=== PATIENT | female | born 1955 | race Caucasian/White ===

== ENCOUNTER → 2016-10-27 | Outpatient (REF) | payer MEDICARE ==
[~2016-10-27] MED LIST: AMLO10TA PO; AMOX500T PO; CITA40TA4 PO; CRES40TA PO; DULO1CAP3 PO; METF1000 PO; METO100T PO; Novolog SQ; PROA1AER IN; TRAZ50TA4 PO; VALS320T3 PO; ZETI10TA2 PO
[2016-10-27 12:21] LABS: CREATININE FOR GFR 1.18 MG/DL (0.55-1.02); GLOMERULAR FILTRATION RATE 49.6 (>45); POTASSIUM SERUM 4.7 MEQ/L (3.5-5.1)
== END ==
LOC: M SFHCPLAZ 08:34
PROVIDERS: ATTEND Nurse Practitioner Family
DX: E11.42 Type 2 diabetes mellitus with diabetic polyneuropathy (principal)

== ENCOUNTER → 2016-12-25 | Day surgery (SDC) | payer MEDICARE ==
[~2016-12-25] VITALS: Ht 152.4 cm; Wt 81.2 kg
[~2016-12-25] MED LIST changes: +ACETAMINOPHEN 325 MG TAB PO PRN; +ARTH650T PO; +AcetaZOLAMIDE 500 MG ER CAP PO ONE; +BSS with VANC/TOB/EPI for EYE CASES IR ONE; +CYCLOPENTOLATE 2% OPHTH SOLN OS ONE; +D5W/0.2% SODIUM CHLORIDE 1,000 ML IV SCH; +GLIP5TAB8 PO; +HEALON DUET (HEALON 10MG/ML 0.55ML & HEALON ENDOCOAT 30MG/ML 0.85ML) As Ordered ONE; +HYDR-4274 PO; +KETOROLAC 0.5% OPHTH SOLN OS ONE; +LIDOCAINE 1% SDV 5 ML VIAL As Ordered ONE; +LIDOCAINE 4% INJ 5 ML AMP OU ONE; +LIDOCAINE W/EPINEPHRINE 1% 20ML VIAL As Ordered ONE; +LYRI75CA PO; +MIDAZOLAM INJ 2 MG/2 ML VIAL (J2250) As Ordered ONE; +MOXIFLOXACIN IN BSS 0.25MG/0.25ML INTRACAMERAL INJ (OR EYE ONLY)(J2280) As Ordered ONE; +OFLOXACIN 0.3 % (OCUFLOX) OPTH SOL 5ML OS ONE; +ONGL10TA3 PO; +PHENYLEPHRINE 2.5% OPHTH SOL 2ML OS ONE; +POVIDONE-IODINE 5% OPHTH PREP SOL 30ML As Ordered ONE; +PROPARACAINE 0.5% OPHTH SOL 15ML OS PRN; +SIMV40TA2 PO; +TRIAMCINOLONE PRES FR 40 MG/ML 1ML(TRIESENCE)(OR EYE ONLY)(J3300 PER 1MG) As Ordered ONE; +TRIMETHOBENZAMIDE 300 MG CAP PO PRN; +TROPICAMIDE 1% OPHTH SOLN 2 ML OS ONE; +fentaNYL 100 MCG/2 ML INJECTION (J3010) As Ordered ONE
[2016-12-25 10:20] VITALS: BP 165/75
== END | disposition home or self-care (01) ==
LOC: M SDC 07:01
PROVIDERS: ATTEND Ophthalmology
DX: H26.9 Unspecified cataract (principal); H21.562 Pupillary abnormality, left eye; E11.9 Type 2 diabetes mellitus without complications; I10 Essential (primary) hypertension; E78.5 Hyperlipidemia, unspecified; Z79.899 Other long term (current) drug therapy; Z88.0 Allergy status to penicillin
CPT/HCPCS: 66982; J2250; J2280; J3010; J3300; V2632

== ENCOUNTER → 2016-12-29 | Outpatient (REF) | payer MEDICARE ==
[~2016-12-29] MED LIST changes: -ACETAMINOPHEN 325 MG TAB PO PRN; -AcetaZOLAMIDE 500 MG ER CAP PO ONE; -BSS with VANC/TOB/EPI for EYE CASES IR ONE; -CYCLOPENTOLATE 2% OPHTH SOLN OS ONE; -D5W/0.2% SODIUM CHLORIDE 1,000 ML IV SCH; -HEALON DUET (HEALON 10MG/ML 0.55ML & HEALON ENDOCOAT 30MG/ML 0.85ML) As Ordered ONE; -KETOROLAC 0.5% OPHTH SOLN OS ONE; -LIDOCAINE 1% SDV 5 ML VIAL As Ordered ONE; -LIDOCAINE 4% INJ 5 ML AMP OU ONE; -LIDOCAINE W/EPINEPHRINE 1% 20ML VIAL As Ordered ONE; -MIDAZOLAM INJ 2 MG/2 ML VIAL (J2250) As Ordered ONE; -MOXIFLOXACIN IN BSS 0.25MG/0.25ML INTRACAMERAL INJ (OR EYE ONLY)(J2280) As Ordered ONE; -OFLOXACIN 0.3 % (OCUFLOX) OPTH SOL 5ML OS ONE; -PHENYLEPHRINE 2.5% OPHTH SOL 2ML OS ONE; -POVIDONE-IODINE 5% OPHTH PREP SOL 30ML As Ordered ONE; -PROPARACAINE 0.5% OPHTH SOL 15ML OS PRN; -TRIAMCINOLONE PRES FR 40 MG/ML 1ML(TRIESENCE)(OR EYE ONLY)(J3300 PER 1MG) As Ordered ONE; -TRIMETHOBENZAMIDE 300 MG CAP PO PRN; -TROPICAMIDE 1% OPHTH SOLN 2 ML OS ONE; -fentaNYL 100 MCG/2 ML INJECTION (J3010) As Ordered ONE
[2016-12-29 19:13] LABS: BASO % 0.7 % (0.0-1.0); EOS # 0.2 K/mm3 (0.0-0.50); EOS % 3.1 % (0.0-3.0); LARGE UNSTAINED CELL # 0.1 K/mm3 (0.0-0.4); LARGE UNSTAINED CELL % 1.1 % (0.0-4.0); LYMPH % 25.3 % (24.0-44.0); MEAN CORPUSCULAR HGB CONC 32.8 g/dl (32.0-36.5); MEAN CORPUSCULAR VOLUME 82.4 fl (80.0-96.0); MONO # 0.4 K/mm3 (0.0-0.8); MONO % 5.4 % (0.0-5.0); NEUTROPHILS # 4.9 K/mm3 (1.8-7.7); NEUTROPHILS % 64.4 % (36.0-66.0); PLATELET COUNT, AUTOMATED 320 k/mm3 (150-450); WHITE BLOOD COUNT 7.6 K/mm3 (4.0-10.0)
[2016-12-29 19:14] LABS: ALBUMIN 3.6 GM/DL (3.2-5.2); PERCENT SATURATION 19.3 % (13.2-37.4)
== END ==
LOC: M LABDRAWP 16:59
PROVIDERS: ATTEND Orthopaedic Surgery
DX: Z01.818 Encounter for other preprocedural examination (principal); D63.8 Anemia in other chronic diseases classified elsewhere; M16.12 Unilateral primary osteoarthritis, left hip

== ENCOUNTER → 2017-02-19 | Outpatient (REF) | payer MEDICARE ==
[2017-02-19 16:05] LABS: BASO % 0.5 % (0.0-1.0); EOS # 0.3 K/mm3 (0.0-0.50); EOS % 3.6 % (0.0-3.0); LARGE UNSTAINED CELL # 0.1 K/mm3 (0.0-0.4); LYMPH # 1.5 K/mm3 (1.5-4.5); LYMPH % 18.5 % (24.0-44.0); MEAN CORPUSCULAR HEMOGLOBIN 27.2 pg (27.0-33.0); MEAN CORPUSCULAR HGB CONC 31.9 g/dl (32.0-36.5); MEAN CORPUSCULAR VOLUME 85.4 fl (80.0-96.0); MONO # 0.5 K/mm3 (0.0-0.8); MONO % 5.9 % (0.0-5.0); NEUTROPHILS # 5.5 K/mm3 (1.8-7.7); NEUTROPHILS % 70.6 % (36.0-66.0); PLATELET COUNT, AUTOMATED 370 k/mm3 (150-450); RED CELL DISTRIBUTION WIDTH 14.1 % (11.5-14.5); WHITE BLOOD COUNT 7.7 K/mm3 (4.0-10.0)
[2017-02-19 16:35] LABS: ALBUMIN 3.4 GM/DL (3.2-5.2); ALBUMIN/GLOBULIN RATIO 0.92 (1.00-1.93); BILIRUBIN,TOTAL 0.2 MG/DL (0.2-1.0); CALCIUM LEVEL 8.8 MG/DL (8.8-10.2); CREATININE FOR GFR 1.03 MG/DL (0.55-1.02); FREE T4 1.03 NG/DL (0.76-1.46); TOTAL PROTEIN 7.1 GM/DL (6.4-8.2)
== END ==
LOC: M SFHCPLAZ 13:57
PROVIDERS: ATTEND Nurse Practitioner Family
DX: R60.9 Edema, unspecified (principal); E11.9 Type 2 diabetes mellitus without complications; I10 Essential (primary) hypertension; Z79.899 Other long term (current) drug therapy
CPT/HCPCS: 71020; 80053; 83880; 84439; 84443; 85025; G0463

== ENCOUNTER → 2017-02-19 | Outpatient (CLI) | payer MEDICARE ==
--- NOTE | 2017-02-19 15:30 | REP ---
Clinical: Hypertension . Comparison: 10/20/2014 . Technique: PA and lateral. Findings: The mediastinum and cardiac silhouette are stable. The lung jaquez demonstrate chronic-appearing changes without acute consolidation, effusion, or pneumothorax. The skeletal structures are intact and normal. Impression: Chronic stable changes. No obvious acute cardiopulmonary process. Signed by Alden Ramon MD 02/19/2017 03:22 P
== END ==
LOC: M SMT 15:08
PROVIDERS: ATTEND Nurse Practitioner Family
DX: R60.9 Edema, unspecified (principal); I10 Essential (primary) hypertension

== ENCOUNTER → 2017-02-23 | Outpatient (REF) | payer MEDICARE ==
[2017-02-23 12:37] LABS: BASO % 0.4 % (0.0-1.0); EOS # 0.1 K/mm3 (0.0-0.50); EOS % 1.6 % (0.0-3.0); LARGE UNSTAINED CELL # 0.1 K/mm3 (0.0-0.4); LYMPH # 1.6 K/mm3 (1.5-4.5); LYMPH % 18.5 % (24.0-44.0); MEAN CORPUSCULAR HEMOGLOBIN 27.2 pg (27.0-33.0); MEAN CORPUSCULAR HGB CONC 32.4 g/dl (32.0-36.5); MEAN CORPUSCULAR VOLUME 83.9 fl (80.0-96.0); MONO # 0.6 K/mm3 (0.0-0.8); MONO % 6.9 % (0.0-5.0); NEUTROPHILS # 5.7 K/mm3 (1.8-7.7); NEUTROPHILS % 71.6 % (36.0-66.0); PLATELET COUNT, AUTOMATED 342 k/mm3 (150-450); RED CELL DISTRIBUTION WIDTH 13.6 % (11.5-14.5)
[2017-02-23 12:38] LABS: ALBUMIN 3.4 GM/DL (3.2-5.2); ALBUMIN/GLOBULIN RATIO 0.79 (1.00-1.93); BILIRUBIN,TOTAL 0.4 MG/DL (0.2-1.0); CALCIUM LEVEL 8.8 MG/DL (8.8-10.2); CREATININE FOR GFR 1.39 MG/DL (0.55-1.02); POTASSIUM SERUM 3.9 MEQ/L (3.5-5.1); TOTAL PROTEIN 7.7 GM/DL (6.4-8.2)
== END ==
LOC: M SFHCPLAZ 10:02
PROVIDERS: ATTEND Nurse Practitioner Family
DX: D64.9 Anemia, unspecified (principal); I10 Essential (primary) hypertension; R60.9 Edema, unspecified
CPT/HCPCS: 80053; 85025; G0463

== ENCOUNTER → 2017-03-09 | Outpatient (REF) | payer MEDICARE ==
[2017-03-09 13:28] LABS: ALBUMIN 3.6 GM/DL (3.2-5.2); CALCIUM LEVEL 9.5 MG/DL (8.8-10.2); CREATININE FOR GFR 1.31 MG/DL (0.55-1.02); GLOMERULAR FILTRATION RATE 43.9 (>45); PHOSPHORUS LEVEL 3.6 MG/DL (2.5-4.9); POTASSIUM SERUM 4.6 MEQ/L (3.5-5.1)
== END ==
LOC: M SFHCPLAZ 09:32
PROVIDERS: ATTEND Nurse Practitioner Family
DX: E11.9 Type 2 diabetes mellitus without complications (principal); N18.3 Chronic kidney disease, stage 3 (moderate)

== ENCOUNTER → 2017-04-06 | Outpatient (REF) | payer MEDICARE ==
[~2017-04-06] MED LIST changes: -ARTH650T PO; +ARTH650T11 PO; -HYDR-4274 PO; +HYDR50TA70 PO; -METF1000 PO; +METF10004 PO; -METO100T PO; +METO100T5 PO; -PROA1AER IN; +PROAAER10 IN; +TRAZ50TA11 PO; -TRAZ50TA4 PO; -ZETI10TA2 PO; +ZETI10TA30 PO
== END ==
LOC: M SFHCPLAZ 11:15
PROVIDERS: ATTEND Nurse Practitioner Family
DX: N18.3 Chronic kidney disease, stage 3 (moderate) (principal); Z53.8 Procedure and treatment not carried out for other reasons

== ENCOUNTER → 2017-04-10 | Outpatient (REF) | payer MEDICARE ==
[2017-04-10 14:09] LABS: ALBUMIN 3.5 GM/DL (3.2-5.2); ALBUMIN/GLOBULIN RATIO 1.03 (1.00-1.93); BILIRUBIN,TOTAL 0.3 MG/DL (0.2-1.0); CALCIUM LEVEL 8.7 MG/DL (8.8-10.2); CREATININE FOR GFR 1.39 MG/DL (0.55-1.02); POTASSIUM SERUM 4.7 MEQ/L (3.5-5.1); TOTAL PROTEIN 6.9 GM/DL (6.4-8.2)
== END ==
LOC: M SFHCPLAZ 09:51
PROVIDERS: ATTEND Nurse Practitioner Family
DX: E11.42 Type 2 diabetes mellitus with diabetic polyneuropathy (principal)

== ENCOUNTER → 2017-04-11 | Outpatient (REF) | payer MEDICARE | LOC: M SFHCPLAZ 09:56 | PROVIDERS: ATTEND Nurse Practitioner Family | DX: N18.3 Chronic kidney disease, stage 3 (moderate) (principal); E11.42 Type 2 diabetes mellitus with diabetic polyneuropathy ==

== ENCOUNTER → 2017-04-11 | Outpatient (REF) | payer MEDICARE ==
[2017-04-11 13:45] LABS: BASO % 0.8 % (0.0-1.0); EOS # 0.2 K/mm3 (0.0-0.50); EOS % 2.8 % (0.0-3.0); LARGE UNSTAINED CELL % 0.6 % (0.0-4.0); LYMPH # 1.3 K/mm3 (1.5-4.5); LYMPH % 18.4 % (24.0-44.0); MEAN CORPUSCULAR HEMOGLOBIN 27.4 pg (27.0-33.0); MEAN CORPUSCULAR HGB CONC 33.1 g/dl (32.0-36.5); MEAN CORPUSCULAR VOLUME 82.8 fl (80.0-96.0); MONO # 0.3 K/mm3 (0.0-0.8); MONO % 4.3 % (0.0-5.0); NEUTROPHILS % 73.1 % (36.0-66.0); PLATELET COUNT, AUTOMATED 300 k/mm3 (150-450); RED CELL DISTRIBUTION WIDTH 13.7 % (11.5-14.5); WHITE BLOOD COUNT 6.8 K/mm3 (4.0-10.0)
[2017-04-11 14:04] LABS: ALBUMIN 3.5 GM/DL (3.2-5.2); PERCENT SATURATION 18.6 % (13.2-37.4)
== END ==
LOC: M LABDRAWP 13:33
PROVIDERS: ATTEND Orthopaedic Surgery
DX: Z01.818 Encounter for other preprocedural examination (principal); M16.11 Unilateral primary osteoarthritis, right hip; D64.9 Anemia, unspecified; E11.9 Type 2 diabetes mellitus without complications

== ENCOUNTER → 2017-05-30 | Outpatient (REF) | payer MEDICARE ==
[2017-05-31 13:39] LABS: ALT/SGPT 22 U/L (12-78); AST/SGOT 6 U/L (15-37)
[2017-06-05 14:12] LABS: CK TOTAL 61 U/L (24-173)
== END ==
LOC: M LAB REF 13:22
PROVIDERS: ATTEND Internal Medicine Nephrology
DX: N17.9 Acute kidney failure, unspecified (principal); I10 Essential (primary) hypertension; E11.22 Type 2 diabetes mellitus with diabetic chronic kidney disease

== ENCOUNTER → 2017-06-05 | Outpatient (REF) | payer MEDICARE ==
[2017-06-05 14:21] LABS: BACTERIA, URINE SMALL AMOUNT; HYALINE CAST, URINE 0-1 /lpf (0-1); MICROSCOPIC EXAM PERFORMED; SQUAMOUS EPITHELIAL CELL URINE SMALL AMOUNT /hpf (SMALL AMT)
== END ==
LOC: M LAB REF 12:49
PROVIDERS: ATTEND Internal Medicine Nephrology
DX: E79.0 Hyperuricemia without signs of inflammatory arthritis and tophaceous disease (principal)

== ENCOUNTER → 2017-06-11 | Outpatient (CLI) | payer MEDICARE ==
--- NOTE | 2017-06-11 16:46 | REP ---
Nuclear renal scintigraphy with differential flow and function analysis: History: Acute renal failure. Technique: 8.3 mCi technetium 99m MAG3 is injected and standard posterior flow and excretory phase images are acquired. Renal cortical regions of interest are drawn and time activity curves are plotted for renal function analysis. Scintigraphic findings: Posterior flow study shows normal symmetric perfusion of the kidneys. Excretory phase images show no evidence of renal mass or obstructive uropathy. Pre- and postvoid bladder images are unremarkable. Differential renal function analysis is normal with 55% of overall renal cortical counts coming from the left kidney and 45% from the right. Time to peak activity is essentially normal at 3 minutes on the left and 2.0 minutes on the right. Time to half max activity is delayed, however, bilaterally measured at 19.8 minutes on the left and 18.9 minutes on the right. Impression: Somewhat impaired excretory function bilaterally. No evidence of obstructive uropathy. Signed by Mac Corrales MD 06/12/2017 02:10 P
== END ==
LOC: M RAD 13:32
PROVIDERS: ATTEND Internal Medicine Nephrology
DX: N17.9 Acute kidney failure, unspecified (principal); E11.22 Type 2 diabetes mellitus with diabetic chronic kidney disease; I12.9 Hypertensive chronic kidney disease with stage 1 through stage 4 chronic kidney disease, or unspecified chronic kidney disease; N18.9 Chronic kidney disease, unspecified
CPT/HCPCS: 78707; A9562

== ENCOUNTER 2017-09-18 14:03 | Inpatient (IN) | payer MEDICARE ==
[~2017-09-18] VITALS: Ht 152.4 cm; Wt 73.7 kg
[2017-09-18] MEDS ORDERED: ASPI81TA85 PO (14:28)
[2017-09-18] MEDS ORDERED: CHLO125TA (14:28)
[2017-09-18] MEDS ORDERED: IPRA3SP (14:28)
[2017-09-18] MEDS ORDERED: BISO5TAB5 PO (14:28)
[2017-09-18] MEDS ORDERED: BUPR300T34 PO (14:28)
[2017-09-18] MEDS ORDERED: FLUTISP (14:28)
[2017-09-18] MEDS ORDERED: TRUL0.5I PO (14:28)
[2017-09-18 15:40] LABS: BASO # 0.1 10^3/uL (0.0-0.2); BASO % 0.5 % (0.0-1.0); EOS # 0.3 10^3/uL (0.0-0.50); EOS % 2.5 % (0.0-3.0); IMMATURE GRANULOCYTE % 0.4 % (0-0); LYMPH # 2.2 10^3/uL (1.5-4.5); LYMPH % 20.7 % (24.0-44.0); MEAN CORPUSCULAR HEMOGLOBIN 27.6 pg (27.0-33.0); MEAN CORPUSCULAR HGB CONC 34.7 g/dl (32.0-36.5); MEAN CORPUSCULAR VOLUME 79.7 fl (80.0-96.0); MONO # 0.6 10^3/uL (0.0-0.8); MONO % 5.5 % (0.0-5.0); NEUTROPHILS # 7.4 10^3/uL (1.8-7.7); NEUTROPHILS % 70.4 % (36.0-66.0); PLATELET COUNT, AUTOMATED 335 10^3/uL (150-450); RED CELL DISTRIBUTION WIDTH 12.2 % (11.5-14.5); WHITE BLOOD COUNT 10.5 10^3/uL (4.0-10.0)
[2017-09-18 16:05] LABS: ALBUMIN 3.5 GM/DL (3.2-5.2); ALKALINE PHOSPHATASE 95 U/L (45-117); ALT/SGPT 21 U/L (12-78); ANION GAP 7 MEQ/L (8-16); AST/SGOT 9 U/L (7-37); BILIRUBIN,DIRECT < 0.1 MG/DL (0.0-0.2); BILIRUBIN,TOTAL 0.3 MG/DL (0.2-1.0); BLOOD UREA NITROGEN 41 MG/DL (7-18); CALCIUM LEVEL 9.2 MG/DL (8.8-10.2); CARBON DIOXIDE LEVEL 27 MEQ/L (21-32); CHLORIDE LEVEL 103 MEQ/L (98-107); CREATININE FOR GFR 1.66 MG/DL (0.55-1.02); GLOMERULAR FILTRATION RATE 33.3 (>45); MAGNESIUM LEVEL 2.1 MG/DL (1.8-2.4); POTASSIUM SERUM 4.5 MEQ/L (3.5-5.1); SODIUM LEVEL 137 MEQ/L (136-145); TOTAL PROTEIN 7.4 GM/DL (6.4-8.2)
[2017-09-18 16:09] LABS: GLUCOSE, FASTING 435 MG/DL (80-110)
[2017-09-18] MEDS: HumaLOG INSULIN (NovoLOG) PER UNIT SC SCH ×2 (17:30→21:38)
[2017-09-18] MEDS ORDERED: DEXTROSE 50% 50 ML SYRINGE IV PRN (18:00)
[2017-09-18] MEDS ORDERED: ONDANSETRON 4MG/2ML VIAL (J2405) IV PRN (18:00)
[2017-09-18] MEDS ORDERED: BISACODYL 5 MG TAB PO PRN (18:00)
[2017-09-18] MEDS ORDERED: GLUCAGON FOR INJ 1 MG VIAL (J1610) SC PRN (18:00)
[2017-09-18] MEDS ORDERED: predniSONE 20 MG TAB PO ONE (18:00)
[2017-09-18] MEDS ORDERED: GLUCOSE 4 GM CHEW TABLET PO PRN (18:00)
[2017-09-18] MEDS ORDERED: AZITHROMYCIN 250 MG TAB PO ONE (18:00)
[2017-09-18] MEDS ORDERED: SODIUM CHLORIDE 0.9% 1000 ML IV ONE (18:00)
[2017-09-18] MEDS ORDERED: IRON65TA PO (18:10)
[2017-09-18] MEDS ORDERED: VITA100066 PO (18:10)
[2017-09-18] MEDS ORDERED: CHLO25TA PO (18:10)
[2017-09-18] MEDS ORDERED: AMLO5TAB2 PO (18:10)
[2017-09-18] MEDS ORDERED: hydrOXYzine 50 MG TAB PO PRN (18:30)
[2017-09-18] MEDS ORDERED: guaiFENesin/CODEINE SYRUP 5 ML UDC PO PRN (18:30)
--- NOTE | 2017-09-18 18:47 | ECGEPIP ---
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
[2017-09-18] MEDS: ACETAMINOPHEN TAB 650MG DOSE (2X325MG) PO PRN (20:57)
[2017-09-18] MEDS ORDERED: LEVEMIR (INSULIN DETEMIR) 1 UNITS/0.01ML SC SCH (21:00)
[2017-09-18 21:25] VITALS: BP 145/75
[2017-09-18] MEDS: SENOKOT S TAB PO SCH (21:43)
[2017-09-18] MEDS: amLODIPine 5 MG TAB PO SCH (21:43)
[2017-09-18] MEDS: SIMVASTATIN 40 MG TAB PO SCH (21:43)
[2017-09-18] MEDS: BUDESONIDE 0.5 MG/2 ML INHALATION SUSPENSION INH SCH (23:12)
[2017-09-18] MEDS: ALBUTEROL SULFATE 2.5 MG/0.5 ML INH NEB SOLN NEB SCH (23:12)
[2017-09-18] MEDS: glipiZIDE (GLUCOTROL) 5 MG TAB PO SCH (23:18)
[2017-09-18] MEDS: DEXTROMETHORPHAN 60MG/10ML SUSP 90ML BTL(DELSYM) PO SCH (23:18)
[2017-09-18 23:59] VITALS: BP 182/92
[2017-09-19] VITALS: BP 152/70
[2017-09-19 04:00] VITALS: BP 151/74
[2017-09-19 05:35] LABS: BASO % 0.1 % (0.0-1.0); IMMATURE GRANULOCYTE % 0.7 % (0-0); LYMPH # 0.7 10^3/uL (1.5-4.5); LYMPH % 8.5 % (24.0-44.0); MEAN CORPUSCULAR HEMOGLOBIN 27.1 pg (27.0-33.0); MEAN CORPUSCULAR HGB CONC 34.3 g/dl (32.0-36.5); MEAN CORPUSCULAR VOLUME 79.1 fl (80.0-96.0); MONO # 0.1 10^3/uL (0.0-0.8); MONO % 0.8 % (0.0-5.0); NEUTROPHILS # 7.5 10^3/uL (1.8-7.7); NEUTROPHILS % 89.9 % (36.0-66.0); PLATELET COUNT, AUTOMATED 270 10^3/uL (150-450); RED CELL DISTRIBUTION WIDTH 12.1 % (11.5-14.5); WHITE BLOOD COUNT 8.4 10^3/uL (4.0-10.0)
[2017-09-19 05:48] LABS: CALCIUM LEVEL 8.4 MG/DL (8.8-10.2); CREATININE FOR GFR 1.6 MG/DL (0.55-1.02); GLOMERULAR FILTRATION RATE 34.8 (>45); POTASSIUM SERUM 4.7 MEQ/L (3.5-5.1)
[2017-09-19] MEDS: BUDESONIDE 0.5 MG/2 ML INHALATION SUSPENSION INH SCH ×2 (07:24→19:53)
[2017-09-19] MEDS: ALBUTEROL SULFATE 2.5 MG/0.5 ML INH NEB SOLN NEB SCH ×2 (07:24→15:22)
[2017-09-19 08:00] VITALS: BP 158/88
--- NOTE | 2017-09-19 08:06 | HPE ---
DATE OF ADMISSION: 09/18/2017 PRIMARY CARE PROVIDER: Agustin Fraser MD CHIEF COMPLAINT: Intractable cough with some phlegm production going on for about 6 weeks, subjective fever and chills at home, shortness of breath off and on for the same duration. PAST MEDICAL HISTORY: 1. Diabetes. 2. Hypertension. 3. Hyperlipidemia. 4. Arthritis. 5. Depression. 6. Vitamin D deficiency. 7. Anxiety. 8. Chronic hip pain. HISTORY OF PRESENT ILLNESS: This is a 62-year-old female who presented to the hospital because of intractable cough going on for at least 6 weeks. In that time period, she has seen her primary care twice and has been given cough syrups and cough lozenges, as well as albuterol inhaler, which she did not use, without relief of her symptoms. She went to see her primary care again today and was sent to the emergency room for admission for high blood sugars and intractable cough. In the emergency department (ED), patient had a chest x-ray done which did not show any acute pathology. She did have a proBNP slightly elevated at 928, however she did not have any other signs of fluid overload. She did have elevated blood sugars at 435 and also her creatinine was elevated from baseline of 1.3 to 1.6. She is being admitted to the hospitalist service for intractable cough, possibly due to tracheobronchitis and hyperglycemia. PAST SURGICAL HISTORY: 1. Left and right inguinal hernia repair. 2. Left total hip arthroplasty in December 2016. 3. Left cataract surgery in November 2016. 4. Cervical spinal surgery with plates and screws in the neck. 5. Tubal ligation. ALLERGIES: PENICILLIN causes hives. SOCIAL HISTORY: The patient is a former smoker, used to smoke about 4-5 cigarettes per day for about 30 years, quit smoking about 10 years ago. Does not abuse alcohol or any recreational drugs. REVIEW OF SYSTEMS: All 10-point review of systems are negative except those mentioned in history of present illness (HPI). HOME MEDICATIONS: - Tylenol 650 mg by mouth three times a day as needed for pain - amlodipine 5 mg at bedtime - aspirin 81 mg daily - bisoprolol 2.5 mg daily - bupropion 300 mg daily - chlorthalidone 25 mg daily - cholecalciferol 1000 units by mouth daily - duloxetine 120 mg by mouth daily - fluticasone one spray both nostrils twice a day as needed for congestion - glipizide 5 mg by mouth twice a day - hydroxyzine 50 mg by mouth every 6 hours as needed for anxiety - ipratropium bromide one spray both nostrils daily as needed for congestion - iron 325 mg by mouth daily - Lyrica 75 mg by mouth daily - Onglyza 2.5 mg by mouth daily - simvastatin 40 mg at bedtime - Trulicity 1.5 mg once per week PHYSICAL EXAMINATION: VITAL SIGNS: Temperature 98.6, pulse 82, respiratory rate 18, blood pressure 147/71, pulse oximetry 95% in room air. GENERAL: Patient awake, alert, oriented times three, sitting up in bed, in mild distress because of severe bouts of coughing. HEENT: Normocephalic, atraumatic. Moist mucous membranes. Anicteric eyes. CHEST: Clear to auscultation. CARDIOVASCULAR: S1, S2, regular. No rub, murmur, or gallop. ABDOMEN: Obese, soft, nontender. Bowel sounds present. EXTREMITIES: No edema. LABORATORY DATA: WBC 10.5, hemoglobin 12, platelets 335. Sodium 137, potassium 4.5, chloride 103 , bicarbonate 27, BUN 41, creatinine 1.66, glucose 435, last A1c was 9, lactic acid 1.8, calcium 9.2, magnesium 2.1, liver function tests are normal, proBNP 928, lipase 464, D-dimer 822, beta hydroxybutyrate is not elevated. ASSESSMENT AND PLAN: This is a 62-year-old female admitted to the hospital for tracheobronchitis, hyperglycemia, and acute kidney injury (ROXIE) on chronic kidney disease (CKD). PLAN: 1. For tracheobronchitis, will send a respiratory panel. Will give the patient azithromycin and prednisone by mouth. Will also give the patient nebulizer with budesonide and albuterol. Will give cough suppressants, dextromethorphan and guaifenesin and codeine. 2. Elevated D-dimer. The pretest probability to have a pulmonary embolism for this lady is low and also with creatinine elevated, we did not do a CT angio. However, if the patient has persistent shortness of breath and develops hypoxia and tachycardia, we will consider doing a VQ scan. Have done CT chest without contrast to see if there is any other etiology of this persistent ongoing cough. 3. Acute kidney injury (ROXIE) on chronic kidney disease (CKD). Baseline creatinine about 1.2 to 1.3 and creatinine is elevated from baseline, possibly due to hyperglycemia and osmotic diuresis. Will give 1 liter IV fluid. Will hold chlorthalidone at present. 4. Diabetes. Patient's sugars are uncontrolled and with prednisone I expect it to go higher. Will put the patient on Levemir and Lispro, as well as continue her glipizide. 5. Hypertension. Will continue with amlodipine and bisoprolol. 6. Chronic right hip pain with some features of radiculopathy. Will continue with Cymbalta and pregabalin. 7. Hyperlipidemia. Will continue with simvastatin. 8. Depression and anxiety. Will continue with bupropion and hydroxyzine as needed. 9. Deep venous thrombosis (DVT) prophylaxis has been ordered. 10. Elevated proBNP. proBNP is just mildly elevated. Patient had an old echo in the office which shows an ejection fraction (EF) of 60%. Clinically, patient does not have any signs of fluid overload, so will give patient some fluids and hold diuretics at present. Will reevaluate tomorrow and decide whether patient needs to be diuresed or not. [facility]
[2017-09-19] MEDS: HumaLOG INSULIN (NovoLOG) PER UNIT SC SCH ×4 (08:17→20:28)
[2017-09-19] MEDS: LEVEMIR (INSULIN DETEMIR) 1 UNITS/0.01ML SC SCH ×2 (08:17→20:29)
[2017-09-19] MEDS: ASPIRIN 81 MG ENTERIC TAB PO SCH (08:18)
[2017-09-19] MEDS: DULoxetine 30 MG CAP (CYMBALTA) PO SCH (08:18)
[2017-09-19] MEDS: SENOKOT S TAB PO SCH ×2 (08:18→20:25)
[2017-09-19] MEDS: BISOPROLOL FUM 2.5 MG PER 1/2TAB PO SCH (08:18)
[2017-09-19] MEDS: buPROPion **XL** TABLET 150MG (WELLBUTRIN XL) PO SCH (08:18)
[2017-09-19] MEDS: FERROUS SULFATE 325MG TAB PO SCH (08:19)
[2017-09-19] MEDS: glipiZIDE (GLUCOTROL) 5 MG TAB PO SCH ×2 (08:19→20:25)
[2017-09-19] MEDS: DEXTROMETHORPHAN 60MG/10ML SUSP 90ML BTL(DELSYM) PO SCH ×2 (08:19→20:25)
[2017-09-19] MEDS: ENOXAPARIN 40 MG/0.4 ML SYRINGE (J1650) SC SCH (08:19)
[2017-09-19] MEDS: PREGABALIN 75 MG CAP(LYRICA) PO SCH (08:19)
[2017-09-19] MEDS: AZITHROMYCIN 250 MG TAB PO SCH (08:19)
[2017-09-19] MEDS ORDERED: predniSONE 20 MG TAB PO SCH (09:00)
[2017-09-19 12:00] VITALS: BP 129/70
--- NOTE | 2017-09-19 15:30 | IPN ---
DATE: 09/19/2017 The patient is seen and examined. Continues to have significant cough. Denies any fevers, chills, chest pain, pressure or discomfort. Has reported shortness of breath. VITAL SIGNS: Temperature 98.2, pulse 79, respirations 19, blood pressure 129/70, pulse oximetry 94% on room air. LABORATORY DATA: WBC 8.4, hemoglobin and hematocrit 11.7/34.1, platelets 270. Chemistry: Sodium 139, potassium 4.7, chloride 107, bicarbonate 24, BUN 42, creatinine 1.6. GENERAL: The patient is alert, obese, in no acute distress. Persistent cough. HEENT: Normocephalic, atraumatic. Moist mucous membranes. PULMONARY: Bilaterally clear. CARDIAC: Regular. S1, S2. No murmurs detected. ABDOMEN: Obese, soft, nontender. Positive bowel sounds. EXTREMITIES: No edema in bilateral lower extremities. ASSESSMENT AND PLAN: This is a 62-year-old female with underlying medical history of diabetes mellitus, obesity, hypertension, dyslipidemia, arthritis, depression, vitamin D deficiency, anxiety, chronic hip pain, who presented with a 2 month history of progressively worsening cough, minimal sputum, shortness of breath. 1. Tracheobronchitis. Respiratory panel has been negative. CT scan appreciated. CT of the neck has been appreciated. Azithromycin. Prednisone has been ordered. Nebulizer treatment with budesonide and albuterol, cough suppressant. We will monitor patient's progression. Consider pulmonary consultation if the patient does not improve. 2. Elevated D-dimer, low probability for pulmonary embolism. Elevation in creatinine. CT angio not done overnight. The patient has persistent cough with CT evidence. We will get a V/Q scan. The patient has low pre-test probabilities. We will continue to monitor. 3. Acute on chronic renal insufficiency. Baseline creatinine 1.2 to 1.3. Currently a bit elevated from baseline, possibly secondary to poorly controlled diabetes. IV fluids have been given. Holding Diazide, diuretics. 4. Poorly controlled diabetes type 2 with obesity. Insulin has been added. The patient is on prednisone as well. The patient has not been on prednisone since prior to admission with markedly elevated A1/c. The patient likely will need insulin as an outpatient. Insulin teaching has been ordered. Basal bolus insulin. Followup fingersticks. 5. Hypertension. Continue home medications. 6. Chronic right hip pain. Continue home medications. 7. Dyslipidemia. Continue statin. 8. Depression and anxiety. Continue home medications. 9. Thyroid nodule found on CT scan. The patient will need outpatient followup. We will get a thyroid panel and determine further workup if necessary. 10. Deep vein thrombosis (DVT) prophylaxis. Lovenox subcutaneously. DISPOSITION PLANNING: Pending clinical improvement and further workup.
--- NOTE | 2017-09-19 15:30 | REP ---
Chest x-ray: Two views. History: Hypertension. Comparison study: February 19, 2017 and October 20, 2014. Findings: The patient is status post anterior cervical discectomy and fusion plating. There is mild linear fibrosis in the left base. The lung jaquez are otherwise clear. Pleural angles are sharp. Heart is not enlarged. The aorta is somewhat tortuous, unchanged. No other significant bony abnormality is seen. Impression: Status post cervical spine fusion plating. Otherwise no active disease. Signed by Mac Corrales MD 09/19/2017 04:58 P
[2017-09-19 16:10] VITALS: BP 144/68
--- NOTE | 2017-09-19 16:35 | REP ---
CT CHEST WITHOUT CONTRAST: 09/18/2017. Comparison: Chest x-ray 09/18/2017, 02/19/2017. CTA chest 07/05/2011. Clinical history: Cough and dyspnea. Technique: Noncontrast scanning with coronal and sagittal reconstructions. Bone windows are is reviewed. Findings: The lung jaquez are well inflated. There is no pleural effusion, lateral pleural thickening, calcified pleural plaques or acute infiltrate. There is some mild cylindrical bronchiectatic change in the bilateral lower lobes and to a lesser extent in the upper lobes. No parenchymal mass and no tree-in-bud densities. No calcified pleural plaque, pleural effusion or pleural-based masses. No pneumothorax. Heart is not grossly enlarged. There is no pericardial thickening or effusion. The aorta has calcifications at the arch without aneurysm. There is no pathologic sized mediastinal or hilar adenopathy. No axillary or supraclavicular mass. Not clearly defined, the right thyroid lobe may have a nodule, but only a small portion of the lobe is seen. It does not deviate the trachea. The bone windows demonstrate sternum, manubrium, medial clavicles, portions of humeral heads, scapula, ribs and the thoracic spine without acute compression deformity. There are degenerative changes and vacuum phenomena at multiple thoracic levels. The upper abdomen shows no splenomegaly or focal splenic lesion. That portion of liver included was intact and without a mass, biliary dilatation nor adjacent ascites. Gallbladder without calcified stone or mass. The pancreas and adrenal glands grossly intact. Upper poles kidneys grossly intact. That portion of colon also intact. No hiatal hernia. Impression: 1. Evidence for cylindrical bronchiectatic changes in the upper and lower lung zones without acute infiltrate, pleural effusion, parenchymal lung mass or nodules. No pneumothorax, pneumomediastinum. 2. The aorta has a few calcifications without aneurysm. 3. No pathologic sized mediastinal or hilar adenopathy. 4. Upper abdomen grossly intact. Signed by Franky Adames MD 09/19/2017 05:26 P
--- NOTE | 2017-09-19 18:55 | REP ---
CT neck soft tissues without IV contrast: History: Cough. No comparison imaging. CT findings: The patient is status post ventral discectomy and fusion plating across C4-C6 vertebral body levels. There are degenerative disc changes at C3-4 and C6-7. No bony destructive lesion is seen. The paranasal sinuses are clear. Frontal sinuses are hypoplastic. No intraorbital abnormality is seen. Parotid and submandibular glands are normal and symmetric. There is an oval-shaped low density lesion occupying much of the right lobe of the thyroid. This measures 4.2 cm craniocaudal x 2.4 cm medial to lateral x 2.7 cm anterior to posterior. It is compatible with a cyst or thyroid nodule. Left thyroid lobe is unremarkable. There is no evidence of infrahyoid or suprahyoid cervical lymphadenopathy. Scattered normal-sized lymph nodes are seen. No soft tissue mass appreciated. Epiglottis is unremarkable. Glottic and subglottic airway are unremarkable. Impression: There is a 4.2 cm cyst versus a nodule in the right thyroid lobe. Otherwise unremarkable soft tissue neck CT study. The patient status post ventral discectomy and fusion plating C4 through C6. Degenerative disc disease at C3-4 and C6-7. Signed by Mac Corrales MD 09/20/2017 08:05 A
[2017-09-19] MEDS: amLODIPine 5 MG TAB PO SCH (20:25)
[2017-09-19] MEDS: SIMVASTATIN 40 MG TAB PO SCH (20:25)
[2017-09-19 22:00] VITALS: BP 161/80
[2017-09-20 06:00] VITALS: BP 134/60
[2017-09-20] MEDS: BUDESONIDE 0.5 MG/2 ML INHALATION SUSPENSION INH SCH ×2 (06:19→20:17)
[2017-09-20] MEDS: ALBUTEROL SULFATE 2.5 MG/0.5 ML INH NEB SOLN NEB SCH ×4 (06:19→23:37)
[2017-09-20] MEDS: HumaLOG INSULIN (NovoLOG) PER UNIT SC SCH ×4 (07:30→20:33)
[2017-09-20 07:46] LABS: BASO % 0.3 % (0.0-1.0); EOS % 0.4 % (0.0-3.0); IMMATURE GRANULOCYTE % 0.5 % (0-0); LYMPH # 2.6 10^3/uL (1.5-4.5); LYMPH % 24.6 % (24.0-44.0); MEAN CORPUSCULAR HEMOGLOBIN 27.1 pg (27.0-33.0); MEAN CORPUSCULAR HGB CONC 33.3 g/dl (32.0-36.5); MEAN CORPUSCULAR VOLUME 81.3 fl (80.0-96.0); MONO # 0.5 10^3/uL (0.0-0.8); MONO % 5.1 % (0.0-5.0); NEUTROPHILS # 7.3 10^3/uL (1.8-7.7); NEUTROPHILS % 69.1 % (36.0-66.0); PLATELET COUNT, AUTOMATED 240 10^3/uL (150-450); WHITE BLOOD COUNT 10.6 10^3/uL (4.0-10.0)
[2017-09-20 08:26] LABS: CALCIUM LEVEL 8.3 MG/DL (8.8-10.2); CREATININE FOR GFR 1.53 MG/DL (0.55-1.02); GLOMERULAR FILTRATION RATE 36.6 (>45); POTASSIUM SERUM 3.7 MEQ/L (3.5-5.1); THYROXINE (T4) 7.3 UG/DL (4.5-12.0)
[2017-09-20] MEDS: PREGABALIN 75 MG CAP(LYRICA) PO SCH (08:44)
[2017-09-20] MEDS: buPROPion **XL** TABLET 150MG (WELLBUTRIN XL) PO SCH (08:44)
[2017-09-20] MEDS: DULoxetine 30 MG CAP (CYMBALTA) PO SCH (08:44)
[2017-09-20] MEDS: AZITHROMYCIN 250 MG TAB PO SCH (08:45)
[2017-09-20] MEDS: glipiZIDE (GLUCOTROL) 5 MG TAB PO SCH ×2 (08:45→20:31)
[2017-09-20] MEDS: ASPIRIN 81 MG ENTERIC TAB PO SCH (08:45)
[2017-09-20] MEDS: ENOXAPARIN 40 MG/0.4 ML SYRINGE (J1650) SC SCH (08:45)
[2017-09-20] MEDS: BISOPROLOL FUM 2.5 MG PER 1/2TAB PO SCH (08:45)
[2017-09-20] MEDS: FERROUS SULFATE 325MG TAB PO SCH (08:45)
[2017-09-20] MEDS: DEXTROMETHORPHAN 60MG/10ML SUSP 90ML BTL(DELSYM) PO SCH ×2 (08:45→20:32)
[2017-09-20] MEDS: SENOKOT S TAB PO SCH ×2 (08:46→20:31)
[2017-09-20] MEDS: predniSONE 10 MG TAB PO SCH (08:50)
[2017-09-20] MEDS: LEVEMIR (INSULIN DETEMIR) 1 UNITS/0.01ML SC SCH ×2 (08:51→20:33)
[2017-09-20] MEDS ORDERED: LEVEMIR (INSULIN DETEMIR) 1 UNITS/0.01ML SC SCH (09:00)
[2017-09-20] MEDS ORDERED: LEVE1INJ5 SC (11:04)
--- NOTE | 2017-09-20 12:50 | REP ---
CHEST, TWO VIEWS: Two views of the chest are performed and compared to prior study of 09/18/2017. There is no acute infiltrate. There is mild cardiomegaly. There is tortuosity of the thoracic aorta. Mediastinal silhouette is unchanged. Metallic plate and screws are seen in the cervical spine. There are mild degenerative changes of the spine. IMPRESSION: Mild cardiomegaly. No acute infiltrate. Signed by Cameron Mortensen MD 09/20/2017 08:39 P
--- NOTE | 2017-09-20 13:18 | REP ---
V/Q SCAN: Following the intravenous administration of 5.4 mCi of technetium-99m tagged MAA and the inhalation of 1.0 mCi of technetium-99m DTPA aerosol multiple images of the lungs are obtained in various projections. Correlation made with today's chest radiograph. There is cardiomegaly. Small matching subsegmental ventilation and profusion defects are seen in the lung bases bilaterally. No areas of significant V/Q mismatch are seen. IMPRESSION: Low probability of pulmonary embolism. Signed by Cameron Mortensen MD 09/20/2017 08:39 P
[2017-09-20 14:00] VITALS: BP 142/69
--- NOTE | 2017-09-20 17:22 | IPNPDOC ---
Text Note Date of Service The patient was seen on 09/20/17. NOTE No acute events overnight. reported improved cough. still weak. Denies any fevers, chills, chest pain, pressure or discomfort. GENERAL: The patient is alert, obese, in no acute distress. Persistent cough. HEENT: Normocephalic, atraumatic. Moist mucous membranes. PULMONARY: Bilaterally clear. CARDIAC: Regular. S1, S2. No murmurs detected. ABDOMEN: Obese, soft, nontender. Positive bowel sounds. EXTREMITIES: No edema in bilateral lower extremities. ASSESSMENT AND PLAN: This is a 62-year-old female with underlying medical history of diabetes mellitus, obesity, hypertension, dyslipidemia, arthritis, depression, vitamin D deficiency, anxiety, chronic hip pain, who presented with a 2 month history of progressively worsening cough, minimal sputum, shortness of breath. 1. Tracheobronchitis. Respiratory panel has been negative. CT scan appreciated. CT of the neck has been appreciated. Azithromycin. Prednisone has been ordered. Nebulizer treatment with budesonide and albuterol, cough suppressant. We will monitor patient's progression. Consider pulmonary consultation if the patient does not improve. 2. Elevated D-dimer, low probability for pulmonary embolism. Elevation in creatinine. CT angio not done overnight. The patient has persistent cough without CT evidence of pna. V/Q scan neg PE. We will continue to monitor. 3. Acute on chronic renal insufficiency. Baseline creatinine 1.2 to 1.3. Currently a bit elevated from baseline, possibly secondary to poorly controlled diabetes. IV fluids have been given. Holding Diazide, diuretics. 4. Poorly controlled diabetes type 2 with obesity. Insulin has been added. The patient is on prednisone as well. The patient has not been on prednisone since prior to admission with markedly elevated A1/c. The patient likely will need insulin as an outpatient. Insulin teaching has been ordered. PFS for prior authorization, Basal bolus insulin. Followup fingersticks. 5. Hypertension. Continue home medications. 6. Chronic right hip pain. Continue home medications. 7. Dyslipidemia. Continue statin. 8. Depression and anxiety. Continue home medications. 9. Thyroid nodule found on CT scan. The patient will need outpatient followup. thyrodi profile neg outpatient workup for cold nodules 10. Deep vein thrombosis (DVT) prophylaxis. Lovenox subcutaneously. DISPOSITION PLANNING: Pending clinical improvement and further workup. VS,Aden, I+O VS, Aden, I+O Laboratory Tests 09/20/17 07:11 Red Blood Count 3.69 L, Mean Corpuscular Volume 81.3, Mean Corpuscular Hemoglobin 27.1, Mean Corpuscular Hemoglobin Concent 33.3, Red Cell Distribution Width 12.0, Neutrophils (%) (Auto) 69.1 H, Lymphocytes (%) (Auto) 24.6, Monocytes (%) (Auto) 5.1 H, Eosinophils (%) (Auto) 0.4, Basophils (%) ( Auto) 0.3, Neutrophils # (Auto) 7.3, Lymphocytes # (Auto) 2.6, Monocytes # (Auto ) 0.5, Eosinophils # (Auto) 0.0, Basophils # (Auto) 0.0, Calcium Level 8.3 L Vital Signs Date Time Temp Pulse Resp B/P (MAP) Pulse Ox O2 Delivery O2 Flow Rate FiO2 09/20/17 14:00 98.2 75 20 142/69 (93) 93 Room Air I&O- Last 24 Hours up to 6 AM 09/20/17 06:00 Intake Total 2100 ml Output Total 1600 ml Balance 500 ml IDALIA BARTHOLOMEW MD Sep 20, 2017 17:22
[2017-09-20] MEDS: SIMVASTATIN 40 MG TAB PO SCH (20:31)
[2017-09-20] MEDS: amLODIPine 5 MG TAB PO SCH (20:32)
[2017-09-20 22:00] VITALS: BP 126/61
[2017-09-21 05:57] LABS: BASO % 0.2 % (0.0-1.0); EOS % 0.1 % (0.0-3.0); IMMATURE GRANULOCYTE % 0.6 % (0-0); LYMPH % 18.7 % (24.0-44.0); MEAN CORPUSCULAR HGB CONC 32.8 g/dl (32.0-36.5); MEAN CORPUSCULAR VOLUME 82.5 fl (80.0-96.0); MONO # 0.6 10^3/uL (0.0-0.8); MONO % 5.4 % (0.0-5.0); NEUTROPHILS # 7.9 10^3/uL (1.8-7.7); PLATELET COUNT, AUTOMATED 241 10^3/uL (150-450); WHITE BLOOD COUNT 10.6 10^3/uL (4.0-10.0)
[2017-09-21 06:00] VITALS: BP 160/82
[2017-09-21] MEDS: BUDESONIDE 0.5 MG/2 ML INHALATION SUSPENSION INH SCH ×2 (06:14→20:45)
[2017-09-21] MEDS: ALBUTEROL SULFATE 2.5 MG/0.5 ML INH NEB SOLN NEB SCH ×3 (06:14→20:45)
[2017-09-21 06:16] LABS: CALCIUM LEVEL 8.1 MG/DL (8.8-10.2); CREATININE FOR GFR 1.43 MG/DL (0.55-1.02); GLOMERULAR FILTRATION RATE 39.6 (>45); POTASSIUM SERUM 3.6 MEQ/L (3.5-5.1)
[2017-09-21] MEDS: BISOPROLOL FUM 2.5 MG PER 1/2TAB PO SCH (08:50)
[2017-09-21] MEDS: buPROPion **XL** TABLET 150MG (WELLBUTRIN XL) PO SCH (08:50)
[2017-09-21] MEDS: PREGABALIN 75 MG CAP(LYRICA) PO SCH (08:50)
[2017-09-21] MEDS: SENOKOT S TAB PO SCH ×2 (08:50→21:25)
[2017-09-21] MEDS: FERROUS SULFATE 325MG TAB PO SCH (08:50)
[2017-09-21] MEDS: ASPIRIN 81 MG ENTERIC TAB PO SCH (08:50)
[2017-09-21] MEDS: predniSONE 10 MG TAB PO SCH (08:51)
[2017-09-21] MEDS: glipiZIDE (GLUCOTROL) 5 MG TAB PO SCH ×2 (08:51→22:34)
[2017-09-21] MEDS: LEVEMIR (INSULIN DETEMIR) 1 UNITS/0.01ML SC SCH (08:51)
[2017-09-21] MEDS: ENOXAPARIN 40 MG/0.4 ML SYRINGE (J1650) SC SCH (08:51)
[2017-09-21] MEDS: DULoxetine 30 MG CAP (CYMBALTA) PO SCH (08:51)
[2017-09-21] MEDS: AZITHROMYCIN 250 MG TAB PO SCH (08:51)
[2017-09-21] MEDS: DEXTROMETHORPHAN 60MG/10ML SUSP 90ML BTL(DELSYM) PO SCH ×2 (08:52→22:33)
[2017-09-21] MEDS: HumaLOG INSULIN (NovoLOG) PER UNIT SC SCH ×4 (08:52→21:00)
[2017-09-21] MEDS ORDERED: MAALOX 30 ML SUSP *UDC PO PRN (12:00)
[2017-09-21] MEDS ORDERED: D-CA1KIT XX (12:01)
[2017-09-21] MEDS ORDERED: [UNRECOGNIZED DRUG - CODE] XX (12:01)
[2017-09-21] MEDS ORDERED: [UNRECOGNIZED DRUG - CODE] XX (12:01)
[2017-09-21] MEDS ORDERED: BLOOKIT20 XX (12:01)
[2017-09-21 14:00] VITALS: BP 153/76
--- NOTE | 2017-09-21 15:30 | IPNPDOC ---
Text Note Date of Service The patient was seen on 09/21/17. NOTE No acute events overnight. reported improved cough. still weak. Denies any fevers, chills, chest pain, pressure or discomfort. GENERAL: The patient is alert, obese, in no acute distress. Persistent cough. HEENT: Normocephalic, atraumatic. Moist mucous membranes. PULMONARY: Bilaterally clear. CARDIAC: Regular. S1, S2. No murmurs detected. ABDOMEN: Obese, soft, nontender. Positive bowel sounds. EXTREMITIES: No edema in bilateral lower extremities. ASSESSMENT AND PLAN: This is a 62-year-old female with underlying medical history of diabetes mellitus, obesity, hypertension, dyslipidemia, arthritis, depression, vitamin D deficiency, anxiety, chronic hip pain, who presented with a 2 month history of progressively worsening cough, minimal sputum, shortness of breath. 1. Tracheobronchitis. Respiratory panel has been negative. CT scan appreciated. CT of the neck has been appreciated. Azithromycin. Prednisone has been ordered. Nebulizer treatment with budesonide and albuterol, cough suppressant. We will monitor patient's progression. Consider pulmonary consultation if the patient does not improve. 2. Elevated D-dimer, low probability for pulmonary embolism. Elevation in creatinine. CT angio not done overnight. The patient has persistent cough without CT evidence of pna. V/Q scan neg PE. We will continue to monitor. 3. Acute on chronic renal insufficiency. Baseline creatinine 1.2 to 1.3. IV fluids have been given. improved, Holding Diazide, diuretics. 4. Poorly controlled diabetes type 2 with obesity. Insulin has been added. The patient is on prednisone as well. The patient has not been on prednisone since prior to admission with markedly elevated A1/c. The patient likely will need insulin as an outpatient. Insulin teaching has been ordered. PFS for prior authorization, Basal bolus insulin. Followup fingersticks. 5. Hypertension. Continue home medications. 6. Chronic right hip pain. Continue home medications. 7. Dyslipidemia. Continue statin. 8. Depression and anxiety. Continue home medications. 9. Thyroid nodule found on CT scan. The patient will need outpatient followup. thyrodi profile neg outpatient workup for cold nodules 10 obesity complicating care, may benefit from sleep study 11. Deep vein thrombosis (DVT) prophylaxis. Lovenox subcutaneously. DISPOSITION PLANNING: Pending clinical improvement and further workup. VS,Aden, I+O VS, [place], I+O Laboratory Tests 09/21/17 05:29 Red Blood Count 3.59 L, Mean Corpuscular Volume 82.5, Mean Corpuscular Hemoglobin 27.0, Mean Corpuscular Hemoglobin Concent 32.8, Red Cell Distribution Width 12.0, Neutrophils (%) (Auto) 75.0 H, Lymphocytes (%) (Auto) 18.7 L, Monocytes (%) (Auto) 5.4 H, Eosinophils (%) (Auto) 0.1, Basophils (%) ( Auto) 0.2, Neutrophils # (Auto) 7.9 H, Lymphocytes # (Auto) 2.0, Monocytes # ( Auto) 0.6, Eosinophils # (Auto) 0.0, Basophils # (Auto) 0.0, Calcium Level 8.1 L Vital Signs Date Time Temp Pulse Resp B/P (MAP) Pulse Ox O2 Delivery O2 Flow Rate FiO2 09/21/17 14:00 98.2 82 20 153/76 (101) 100 Room Air I&O- Last 24 Hours up to 6 AM 09/21/17 06:00 Intake Total 1940 ml Output Total 2775 ml Balance -835 ml IDALIA BARTHOLOMEW MD Sep 21, 2017 15:30
[2017-09-21] MEDS ORDERED: LEVEMIR (INSULIN DETEMIR) 1 UNITS/0.01ML SC SCH (21:00)
[2017-09-21] MEDS: amLODIPine 5 MG TAB PO SCH (21:26)
[2017-09-21 22:00] VITALS: BP 157/75
[2017-09-21] MEDS ORDERED: HumaLOG INSULIN (NovoLOG) PER UNIT SC ONE (22:15)
[2017-09-21] MEDS: SIMVASTATIN 40 MG TAB PO SCH (22:34)
[2017-09-21] MEDS: ACETAMINOPHEN TAB 650MG DOSE (2X325MG) PO PRN (23:26)
[2017-09-22] MEDS ORDERED: HumaLOG INSULIN (NovoLOG) PER UNIT SC ONE (00:30)
[2017-09-22 05:59] LABS: BASO % 0.2 % (0.0-1.0); EOS # 0.1 10^3/uL (0.0-0.50); EOS % 0.7 % (0.0-3.0); IMMATURE GRANULOCYTE % 1.7 % (0-0); LYMPH # 2.5 10^3/uL (1.5-4.5); LYMPH % 25.8 % (24.0-44.0); MEAN CORPUSCULAR HEMOGLOBIN 27.1 pg (27.0-33.0); MEAN CORPUSCULAR VOLUME 82.2 fl (80.0-96.0); MONO # 0.9 10^3/uL (0.0-0.8); MONO % 8.9 % (0.0-5.0); NEUTROPHILS % 62.7 % (36.0-66.0); PLATELET COUNT, AUTOMATED 276 10^3/uL (150-450); RED CELL DISTRIBUTION WIDTH 12.1 % (11.5-14.5); WHITE BLOOD COUNT 9.6 10^3/uL (4.0-10.0)
[2017-09-22 06:00] VITALS: BP 133/74
[2017-09-22 06:22] LABS: CALCIUM LEVEL 8.4 MG/DL (8.8-10.2); CREATININE FOR GFR 1.34 MG/DL (0.55-1.02); GLOMERULAR FILTRATION RATE 42.7 (>45)
[2017-09-22] MEDS: HumaLOG INSULIN (NovoLOG) PER UNIT SC SCH ×4 (07:30→21:01)
[2017-09-22] MEDS: ALBUTEROL SULFATE 2.5 MG/0.5 ML INH NEB SOLN NEB SCH ×2 (07:48→23:02)
[2017-09-22] MEDS: BUDESONIDE 0.5 MG/2 ML INHALATION SUSPENSION INH SCH ×2 (07:48→23:02)
[2017-09-22] MEDS ORDERED: POTASSIUM CHLORIDE 10 MEQ SR TABLET PO ONE (08:00)
[2017-09-22 08:10] LABS: MAGNESIUM LEVEL 2.2 MG/DL (1.8-2.4)
[2017-09-22] MEDS: ENOXAPARIN 40 MG/0.4 ML SYRINGE (J1650) SC SCH (08:29)
[2017-09-22] MEDS: buPROPion **XL** TABLET 150MG (WELLBUTRIN XL) PO SCH (08:29)
[2017-09-22] MEDS: FERROUS SULFATE 325MG TAB PO SCH (08:30)
[2017-09-22] MEDS: predniSONE 10 MG TAB PO SCH (08:30)
[2017-09-22] MEDS: BISOPROLOL FUM 2.5 MG PER 1/2TAB PO SCH (08:30)
[2017-09-22] MEDS: PREGABALIN 75 MG CAP(LYRICA) PO SCH (08:31)
[2017-09-22] MEDS: ASPIRIN 81 MG ENTERIC TAB PO SCH (08:31)
[2017-09-22] MEDS: AZITHROMYCIN 250 MG TAB PO SCH (08:31)
[2017-09-22] MEDS: SENOKOT S TAB PO SCH ×2 (08:31→21:02)
[2017-09-22] MEDS: glipiZIDE (GLUCOTROL) 5 MG TAB PO SCH ×2 (08:31→21:02)
[2017-09-22] MEDS: DULoxetine 30 MG CAP (CYMBALTA) PO SCH (08:31)
[2017-09-22] MEDS: LEVEMIR (INSULIN DETEMIR) 1 UNITS/0.01ML SC SCH ×2 (08:37→21:01)
[2017-09-22] MEDS: DEXTROMETHORPHAN 60MG/10ML SUSP 90ML BTL(DELSYM) PO SCH ×2 (12:41→21:00)
[2017-09-22 14:00] VITALS: BP 180/87
[2017-09-22 14:44] LABS: CALCIUM LEVEL 8.2 MG/DL (8.8-10.2); CREATININE FOR GFR 1.61 MG/DL (0.55-1.02); GLOMERULAR FILTRATION RATE 34.5 (>45); POTASSIUM SERUM 4.7 MEQ/L (3.5-5.1)
[2017-09-22 17:00] VITALS: BP 160/70
--- NOTE | 2017-09-22 18:38 | IPNPDOC ---
Text Note Date of Service The patient was seen on 09/22/17. NOTE No acute events overnight. reported improved cough. still weak. Denies any fevers, chills, chest pain, pressure or discomfort. hypoglycemia am. hyperglycemia overnight GENERAL: The patient is alert, obese, in no acute distress. Persistent cough. HEENT: Normocephalic, atraumatic. Moist mucous membranes. PULMONARY: Bilaterally clear. CARDIAC: Regular. S1, S2. No murmurs detected. ABDOMEN: Obese, soft, nontender. Positive bowel sounds. EXTREMITIES: No edema in bilateral lower extremities. ASSESSMENT AND PLAN: This is a 62-year-old female with underlying medical history of diabetes mellitus, obesity, hypertension, dyslipidemia, arthritis, depression, vitamin D deficiency, anxiety, chronic hip pain, who presented with a 2 month history of progressively worsening cough, minimal sputum, shortness of breath. 1. Tracheobronchitis. Respiratory panel has been negative. CT scan appreciated. CT of the neck has been appreciated. Azithromycin. Prednisone taper, Nebulizer treatment with budesonide and albuterol, cough suppressant. We will monitor patient's progression. Consider pulmonary consultation if the patient does not improve. 2. Elevated D-dimer, low probability for pulmonary embolism. Elevation in creatinine. CT angio not done overnight. The patient has persistent cough without CT evidence of pna. V/Q scan neg PE. We will continue to monitor. 3. Acute on chronic renal insufficiency. Baseline creatinine 1.2 to 1.3. IV fluids have been given. improved, Holding Diazide, diuretics. 4. Poorly controlled diabetes type 2 with obesity. hypo and hyperglycemia, sensitive to insulin Insulin has been added. taper steroid The patient has not been on prednisone since prior to admission with markedly elevated A1/c. out patient insulin arranged basal bolus insulin for now 5. Hypertension. Continue home medications. 6. Chronic right hip pain. Continue home medications. 7. Dyslipidemia. Continue statin. 8. Depression and anxiety. Continue home medications. 9. Thyroid nodule found on CT scan. The patient will need outpatient followup. thyrodi profile neg outpatient workup for cold nodules 10 obesity complicating care, may benefit from sleep study 11. Deep vein thrombosis (DVT) prophylaxis. Lovenox subcutaneously. DISPOSITION PLANNING: Pending clinical improvement and further workup. VS,Fishbone, I+O VS, Fishbone, I+O Laboratory Tests 09/22/17 05:16 Red Blood Count 3.87 L, Mean Corpuscular Volume 82.2, Mean Corpuscular Hemoglobin 27.1, Mean Corpuscular Hemoglobin Concent 33.0, Red Cell Distribution Width 12.1, Neutrophils (%) (Auto) 62.7, Lymphocytes (%) (Auto) 25.8, Monocytes (%) (Auto) 8.9 H, Eosinophils (%) (Auto) 0.7, Basophils (%) ( Auto) 0.2, Neutrophils # (Auto) 6.0, Lymphocytes # (Auto) 2.5, Monocytes # (Auto ) 0.9 H, Eosinophils # (Auto) 0.1, Basophils # (Auto) 0.0, Calcium Level 8.4 L 09/22/17 14:04 Calcium Level 8.2 L Vital Signs Date Time Temp Pulse Resp B/P (MAP) Pulse Ox O2 Delivery O2 Flow Rate FiO2 09/22/17 17:00 160/70 (100) 09/22/17 14:00 97.4 84 19 94 Room Air I&O- Last 24 Hours up to 6 AM 09/22/17 06:00 Intake Total 2510 ml Output Total 2000 ml Balance 510 ml IDALIA BARTHOLOMEW MD Sep 22, 2017 18:38
[2017-09-22] MEDS: SIMVASTATIN 40 MG TAB PO SCH (21:02)
[2017-09-22] MEDS: amLODIPine 5 MG TAB PO SCH (21:03)
[2017-09-22 22:00] VITALS: BP 184/98
[2017-09-23] MEDS: ACETAMINOPHEN TAB 650MG DOSE (2X325MG) PO PRN (00:39)
[2017-09-23 05:51] LABS: BASO % 0.3 % (0.0-1.0); EOS # 0.2 10^3/uL (0.0-0.50); EOS % 1.9 % (0.0-3.0); IMMATURE GRANULOCYTE % 1.5 % (0-0); LYMPH # 3.1 10^3/uL (1.5-4.5); LYMPH % 28.2 % (24.0-44.0); MEAN CORPUSCULAR HEMOGLOBIN 27.2 pg (27.0-33.0); MEAN CORPUSCULAR HGB CONC 32.8 g/dl (32.0-36.5); MEAN CORPUSCULAR VOLUME 82.7 fl (80.0-96.0); MONO # 0.7 10^3/uL (0.0-0.8); MONO % 6.7 % (0.0-5.0); NEUTROPHILS # 6.7 10^3/uL (1.8-7.7); NEUTROPHILS % 61.4 % (36.0-66.0); PLATELET COUNT, AUTOMATED 279 10^3/uL (150-450); RED CELL DISTRIBUTION WIDTH 12.1 % (11.5-14.5); WHITE BLOOD COUNT 10.9 10^3/uL (4.0-10.0)
[2017-09-23 06:00] VITALS: BP 140/72
[2017-09-23 06:00] LABS: CALCIUM LEVEL 8.1 MG/DL (8.8-10.2); CREATININE FOR GFR 1.3 MG/DL (0.55-1.02); GLOMERULAR FILTRATION RATE 44.2 (>45); POTASSIUM SERUM 3.6 MEQ/L (3.5-5.1)
[2017-09-23] MEDS: HumaLOG INSULIN (NovoLOG) PER UNIT SC SCH ×2 (07:30→12:36)
[2017-09-23] MEDS ORDERED: POTASSIUM CHLORIDE 10 MEQ SR TABLET PO ONE (08:00)
[2017-09-23] MEDS: BUDESONIDE 0.5 MG/2 ML INHALATION SUSPENSION INH SCH (08:05)
[2017-09-23] MEDS: ALBUTEROL SULFATE 2.5 MG/0.5 ML INH NEB SOLN NEB SCH (08:05)
[2017-09-23 08:28] VITALS: BP 140/72
[2017-09-23] MEDS: SENOKOT S TAB PO SCH (08:28)
[2017-09-23] MEDS: BISOPROLOL FUM 2.5 MG PER 1/2TAB PO SCH (08:28)
[2017-09-23] MEDS: ASPIRIN 81 MG ENTERIC TAB PO SCH (08:28)
[2017-09-23] MEDS: buPROPion **XL** TABLET 150MG (WELLBUTRIN XL) PO SCH (08:29)
[2017-09-23] MEDS: AZITHROMYCIN 250 MG TAB PO SCH (08:29)
[2017-09-23] MEDS: FERROUS SULFATE 325MG TAB PO SCH (08:29)
[2017-09-23] MEDS: DEXTROMETHORPHAN 60MG/10ML SUSP 90ML BTL(DELSYM) PO SCH (08:29)
[2017-09-23] MEDS: DULoxetine 30 MG CAP (CYMBALTA) PO SCH (08:30)
[2017-09-23] MEDS: predniSONE 10 MG TAB PO SCH (08:38)
[2017-09-23] MEDS: PREGABALIN 75 MG CAP(LYRICA) PO SCH (08:38)
[2017-09-23] MEDS: glipiZIDE (GLUCOTROL) 5 MG TAB PO SCH (08:41)
[2017-09-23] MEDS: ENOXAPARIN 40 MG/0.4 ML SYRINGE (J1650) SC SCH (08:44)
[2017-09-23] MEDS ORDERED: LEVEMIR (INSULIN DETEMIR) 1 UNITS/0.01ML SC SCH ×2 (09:00→21:00)
[2017-09-23] MEDS ORDERED: PRED10PA PO (10:32)
[2017-09-23] MEDS ORDERED: AZIT-12 PO (10:32)
[2017-09-23 14:00] VITALS: BP 158/74
--- NOTE | 2017-09-23 16:04 | DSES ---
DATE OF ADMISSION: 09/20/2017 DATE OF DISCHARGE: 09/23/2017 PRIMARY CARE PROVIDER: Lili Wray and Agustin Fraser. FINAL DIAGNOSES: 1. Tracheobronchitis. 2. Obesity. 3. Acute on chronic renal insufficiency. 4. Poorly controlled diabetes type 2, with hyperglycemia on newly started insulin. 5. Hypoglycemia. 6. Hypertension. 7. Dyslipidemia. 8. Depression, anxiety. 9. Thyroid nodule. 10. Obesity. 11. Deconditioning. HISTORY OF PRESENT ILLNESS: This is a 62-year-old female patient with underlying medical history of type 2 diabetes, obesity, hypertension, dyslipidemia, arthritis, depression, vitamin D deficiency, anxiety, and chronic hip pain, who presented to the hospital because of intractable cough for the past six weeks. Has seen primary care provider, received cough syrups multiple times, as well as lozenges, inhalers which did not use, without much relieve. The patient was evaluated by primary care provider again and was sent to the emergency room for admission for high glucose, intractable cough. In the emergency room, the patient had a chest x-ray done, did not show any acute pathology. The patient did have a pro brain natriuretic peptide (pro-BNP) slightly elevated with no signs of fluid overload, with elevated glucose in the 400s with elevated creatinine as well. The patient was admitted to the hospitalist service for further management. The patient is admitted to the hospitalist service. Started on azithromycin as well as prednisone. Nebulizer treatment, cough suppressant have been provided to the patient. CT scan of the chest and neck has been appreciated. The patient was found to have thyroid nodule. Ventilation/perfusion (V/Q) scan was negative for pulmonary embolism (PE). Physical therapy was done. Patient and family services (PFS) was consulted for possible prior authorization of insulin. Insulin teaching was provided. The patient was counseled regarding glucose control. Hospital course was complicated by hyperglycemia and hypoglycemia, and severe deconditioning. The patient possibly has obstructive sleep apnea as well. The patient currently is not having any significant distress with resolution of cough, feeling much more comfortable and ready for discharge for further care as outpatient. PHYSICAL EXAMINATION: VITAL SIGNS: Temperature 97.3, pulse 65, respirations 18, blood pressure 140/72, pulse oximetry 97% on room air. GENERAL: The patient obese, alert, in no acute distress. HEENT: Normocephalic, atraumatic. Moist mucous membranes. PULMONARY: Bilaterally clear to auscultation. CARDIAC: Regular S1, S2. No murmur detected. ABDOMEN: Soft, nontender. Positive bowel sounds. EXTREMITIES: No clubbing, cyanosis or edema. LABORATORY DATA: WBC 10.9, hemoglobin and hematocrit 11 over 33.5, platelets 279. Chemistry: Sodium 143, potassium 3.6, chloride 109, bicarbonate 28, BUN 40, creatinine 1.3. DISCHARGE MEDICATIONS: - azithromycin 500 mg by mouth daily for three more days - Levemir insulin 16 units subcutaneous daily - prednisone 10 mg tablet take two tablets daily for two days, then one tablet daily for two days, then stop The patient's home medications were continued: - acetaminophen of 650 mg by mouth three times a day as needed - Norvasc 5 mg by mouth at bedtime - aspirin 81 mg by mouth daily - bisoprolol 2.5 mg by mouth daily - bupropion 300 mg by mouth daily - chlorthalidone 25 mg by mouth daily - vitamin D 1000 units by mouth daily - duloxetine 120 mg by mouth daily - Flonase nasal spray twice a day as needed - glipizide 5 mg by mouth twice a day - hydroxyzine 50 mg by mouth at bedtime as needed - ipratropium nasal spray daily as needed - iron supplementation - Lyrica 75 mg by mouth daily - Onglyza 2.5 mg by mouth daily - Zocor 40 mg by mouth daily - Trulicity 1.5 mg by mouth weekly DISCHARGE INSTRUCTIONS: The patient is instructed to followup with primary care provider in seven days. Consider sleep study as outpatient. Consider further workup for thyroid nodule as outpatient. Consider dietary evaluation, given the patient is poorly compliant with poorly controlled glucose that is increasing during the course of the day and with normal to low glucose in the morning, suggestive of poor dietary management. Will further adjust insulin as per patient's primary care provider. Return to the hospital if symptoms worsen. Time spent arranging, coordinating and counseling patient for discharge was 35 minutes.
== END 2017-09-23 17:10 | disposition home health service (06) | DRG 203 ==
LOC: M ED 14:03 → M ED INP 17:54 → M PCU 21:11 → M MSPAV 09-19 16:00 → OBSVTOIN 09-20 12:38
PROVIDERS: ADMIT Internal Medicine Nephrology; ATTEND Hospitalist
DX: J20.9 Acute bronchitis, unspecified (principal); E66.9 Obesity, unspecified; F32.9 Major depressive disorder, single episode, unspecified; F41.9 Anxiety disorder, unspecified; N18.9 Chronic kidney disease, unspecified; E78.5 Hyperlipidemia, unspecified; E11.65 Type 2 diabetes mellitus with hyperglycemia; E11.649 Type 2 diabetes mellitus with hypoglycemia without coma; E04.1 Nontoxic single thyroid nodule; I12.9 Hypertensive chronic kidney disease with stage 1 through stage 4 chronic kidney disease, or unspecified chronic kidney disease; E55.9 Vitamin D deficiency, unspecified; Z79.899 Other long term (current) drug therapy; Z79.82 Long term (current) use of aspirin; M19.90 Unspecified osteoarthritis, unspecified site; Z96.641 Presence of right artificial hip joint; Z88.0 Allergy status to penicillin

== ENCOUNTER → 2017-10-10 | Outpatient (REF) | payer MEDICARE ==
[2017-10-10 13:40] LABS: ALBUMIN 3.6 GM/DL (3.2-5.2); ALBUMIN/GLOBULIN RATIO 1.09 (1.00-1.93); ALKALINE PHOSPHATASE 76 U/L (45-117); ALT/SGPT 23 U/L (12-78); ANION GAP 9 MEQ/L (8-16); AST/SGOT 8 U/L (7-37); BILIRUBIN,TOTAL 0.3 MG/DL (0.2-1.0); BLOOD UREA NITROGEN 39 MG/DL (7-18); CALCIUM LEVEL 9.1 MG/DL (8.8-10.2); CARBON DIOXIDE LEVEL 28 MEQ/L (21-32); CHLORIDE LEVEL 107 MEQ/L (98-107); CHOLESTEROL LEVEL 282 MG/DL (<200); CHOLESTEROL RISK RATIO 5.529 (<5); CREATININE FOR GFR 1.34 MG/DL (0.55-1.02); GLOMERULAR FILTRATION RATE 42.7 (>45); GLUCOSE, FASTING 230 MG/DL (80-110); HDL CHOLESTEROL 51 MG/DL (>40); LDL CHOLESTEROL 167.2 MG/DL (<100); NON-HDL-C 231 MG/DL; POTASSIUM SERUM 4.5 MEQ/L (3.5-5.1); SODIUM LEVEL 144 MEQ/L (136-145); TOTAL PROTEIN 6.9 GM/DL (6.4-8.2); TRIGLYCERIDES LEVEL 319 MG/DL (<150)
[2017-10-10 13:49] LABS: ESTIMATED AVERAGE GLUCOSE 278 MG/DL (60-110); HEMOGLOBIN A1c 11.3 %
== END ==
LOC: M SFHCPLAZ 13:05
DX: I10 Essential (primary) hypertension (principal); E11.9 Type 2 diabetes mellitus without complications; E78.5 Hyperlipidemia, unspecified
CPT/HCPCS: 80053

== ENCOUNTER → 2017-10-15 | Outpatient (REF) | payer MEDICARE ==
[2017-10-15 16:02] LABS: FREE T4 0.85 NG/DL (0.76-1.46)
== END ==
LOC: M SFHCPLAZ 14:00
DX: R94.6 Abnormal results of thyroid function studies (principal)
CPT/HCPCS: 84443

== ENCOUNTER → 2017-10-18 | Outpatient (CLI) | payer MEDICARE | LOC: M RAD 10:50 | DX: E07.9 Disorder of thyroid, unspecified (principal); Z12.31 Encounter for screening mammogram for malignant neoplasm of breast | CPT/HCPCS: 76536 ==

== ENCOUNTER → 2017-10-25 | Outpatient (REF) | payer MEDICARE | LOC: M LAB REF 14:13 | DX: E04.1 Nontoxic single thyroid nodule (principal) | CPT/HCPCS: 88173 ==

== ENCOUNTER → 2018-01-01 | Outpatient (REF) | payer MEDICARE | LOC: M SFHCPLAZ 08:25 | DX: E11.9 Type 2 diabetes mellitus without complications (principal); Z53.8 Procedure and treatment not carried out for other reasons | CPT/HCPCS: 36415 ==

== ENCOUNTER → 2018-01-31 | Outpatient (REF) | payer MEDICARE | LOC: M SFHCPLAZ 16:45 | DX: J40 Bronchitis, not specified as acute or chronic (principal); Z53.8 Procedure and treatment not carried out for other reasons ==

== ENCOUNTER → 2018-02-01 | Outpatient (CLI) | payer MEDICARE ==
[2018-02-01 13:29] LABS: BASO % 0.4 % (0.0-1.0); EOS # 0.3 10^3/uL (0.0-0.50); EOS % 2.7 % (0.0-3.0); HEMATOCRIT 34.7 % (36.0-47.0); HEMOGLOBIN 11.2 g/dl (12.0-15.5); IMMATURE GRANULOCYTE % 0.5 % (0-3.0); LYMPH # 1.9 10^3/uL (1.5-4.5); LYMPH % 19.7 % (24.0-44.0); MEAN CORPUSCULAR HEMOGLOBIN 27.1 pg (27.0-33.0); MEAN CORPUSCULAR HGB CONC 32.3 g/dl (32.0-36.5); MEAN CORPUSCULAR VOLUME 83.8 fl (80.0-96.0); MONO # 0.7 10^3/uL (0.0-0.8); MONO % 7.1 % (0.0-5.0); NEUTROPHILS # 6.7 10^3/uL (1.8-7.7); NEUTROPHILS % 69.6 % (36.0-66.0); PLATELET COUNT, AUTOMATED 286 10^3/uL (150-450); RED BLOOD COUNT 4.14 10^6/uL (4.00-5.40); RED CELL DISTRIBUTION WIDTH 12.4 % (11.5-14.5); WHITE BLOOD COUNT 9.6 10^3/uL (4.0-10.0)
[2018-02-01 13:59] LABS: ANION GAP 9 MEQ/L (8-16); BLOOD UREA NITROGEN 45 MG/DL (7-18); CALCIUM LEVEL 8.9 MG/DL (8.8-10.2); CARBON DIOXIDE LEVEL 27 MEQ/L (21-32); CHLORIDE LEVEL 104 MEQ/L (98-107); GLOMERULAR FILTRATION RATE 26.9 (>45); POTASSIUM SERUM 4.6 MEQ/L (3.5-5.1); SODIUM LEVEL 140 MEQ/L (136-145)
[2018-02-01 14:13] LABS: GLUCOSE, FASTING 417 MG/DL (70-100)
== END ==
LOC: M SMT 09:12
DX: J40 Bronchitis, not specified as acute or chronic (principal); E11.9 Type 2 diabetes mellitus without complications
CPT/HCPCS: 80048

== ENCOUNTER → 2018-02-04 | Outpatient (REF) | payer MEDICARE ==
[2018-02-04 12:30] LABS: AMYLASE 48 U/L (25-115); ANION GAP 7 MEQ/L (8-16); BLOOD UREA NITROGEN 47 MG/DL (7-18); CALCIUM LEVEL 8.8 MG/DL (8.8-10.2); CARBON DIOXIDE LEVEL 27 MEQ/L (21-32); CHLORIDE LEVEL 110 MEQ/L (98-107); GLOMERULAR FILTRATION RATE 34.8 (>45); GLUCOSE, FASTING 266 MG/DL (70-100); LIPASE 296 U/L (73-393); POTASSIUM SERUM 4.3 MEQ/L (3.5-5.1); SODIUM LEVEL 144 MEQ/L (136-145)
== END ==
LOC: M SFHCPLAZ 09:27
DX: N17.9 Acute kidney failure, unspecified (principal); R10.13 Epigastric pain
CPT/HCPCS: 82150

== ENCOUNTER → 2018-02-06 | Outpatient (CLI) | payer MEDICARE | LOC: M RAD 08:23 | DX: R10.13 Epigastric pain (principal) | CPT/HCPCS: 76705 ==

== ENCOUNTER → 2018-02-18 | Outpatient (CLI) | payer MEDICARE | LOC: M RAD 16:20 | DX: N28.1 Cyst of kidney, acquired (principal); K76.89 Other specified diseases of liver | CPT/HCPCS: 74181 ==

== ENCOUNTER 2018-03-06 11:24 | Inpatient (IN) | payer MEDICARE ==
[2018-03-06 12:17] LABS: BASO # 0.1 10^3/uL (0.0-0.2); BASO % 0.5 % (0.0-1.0); EOS # 0.2 10^3/uL (0.0-0.50); EOS % 2.3 % (0.0-3.0); HEMATOCRIT 31.7 % (36.0-47.0); HEMOGLOBIN 10.6 g/dl (12.0-15.5); IMMATURE GRANULOCYTE % 0.4 % (0-3.0); LYMPH # 1.2 10^3/uL (1.5-4.5); LYMPH % 11.9 % (24.0-44.0); MEAN CORPUSCULAR HEMOGLOBIN 27.3 pg (27.0-33.0); MEAN CORPUSCULAR HGB CONC 33.4 g/dl (32.0-36.5); MEAN CORPUSCULAR VOLUME 81.7 fl (80.0-96.0); MONO # 0.6 10^3/uL (0.0-0.8); MONO % 5.5 % (0.0-5.0); NEUTROPHILS # 8.1 10^3/uL (1.8-7.7); NEUTROPHILS % 79.4 % (36.0-66.0); PLATELET COUNT, AUTOMATED 306 10^3/uL (150-450); RED BLOOD COUNT 3.88 10^6/uL (4.00-5.40); RED CELL DISTRIBUTION WIDTH 12.2 % (11.5-14.5); WHITE BLOOD COUNT 10.2 10^3/uL (4.0-10.0)
[2018-03-06 12:25] LABS: INR 0.89; PROTHROMBIN TIME 12.1 SECONDS (12.4-14.5)
[2018-03-06] MEDS: FUROSEMIDE 40 MG/4 ML VIAL (J1940) IV (12:29)
[2018-03-06] MEDS: ASPIRIN 81 MG CHEW TABLET PO (12:29)
[2018-03-06] MEDS: methylPREDNISolone INJ 125 MG/2 ML VIAL (J2930) IV (12:29)
[2018-03-06 12:39] LABS: LACTIC ACID SEPSIS PROTOCOL 0.9 MMOL/L (0.4-2.0)
[2018-03-06 12:39] LABS: ANION GAP 7 MEQ/L (8-16); BLOOD UREA NITROGEN 47 MG/DL (7-18); CALCIUM LEVEL 8.7 MG/DL (8.8-10.2); CARBON DIOXIDE LEVEL 26 MEQ/L (21-32); CHLORIDE LEVEL 108 MEQ/L (98-107); CPK CREATINE PHOSPHOKINASE 113 U/L (26-192); CREATININE FOR GFR 1.61 MG/DL (0.55-1.30); GLOMERULAR FILTRATION RATE 34.5 (>45); GLUCOSE, FASTING 359 MG/DL (70-100); POTASSIUM SERUM 4.2 MEQ/L (3.5-5.1); SODIUM LEVEL 141 MEQ/L (136-145); TROPONIN I < 0.02 NG/ML (< 0.10)
[2018-03-06 12:41] LABS: CK-MB VALUE MASS 2.2 NG/ML (<3.6); MB/CK RELATIVE INDEX 1.94 (< OR =4); NT-PRO BNP 3624 PG/ML (<125)
[2018-03-06] MEDS: IPRATROPIUM 0.5MG/ALBUTEROL 2.5MG INH SOL UD 3ML (DUONEB)(J7620) NEB ×2 (14:25→15:06)
[2018-03-06] MEDS ORDERED: ONDANSETRON 4 MG TAB (S0181) PO (16:15)
[2018-03-06] MEDS ORDERED: MORPHINE 4 MG/ML 1ML VIAL/SYRINGE (J2270) IV (16:15)
[2018-03-06] MEDS ORDERED: DEXTROSE 50% 50 ML SYRINGE IV (16:30)
[2018-03-06] MEDS ORDERED: GLUCAGON FOR INJ 1 MG VIAL (J1610) SC (16:30)
[2018-03-06] MEDS ORDERED: GLUCOSE 4 GM CHEW TABLET PO (16:30)
[2018-03-06 17:07] LABS: CPK CREATINE PHOSPHOKINASE 93 U/L (26-192); FREE THYROXINE INDEX 3.1 % (1.3-4.8); T UPTAKE 36 % (30-39); THYROXINE (T4) 8.7 UG/DL (4.5-12.0); TROPONIN I < 0.02 NG/ML (< 0.10)
[2018-03-06 17:12] LABS: CK-MB VALUE MASS 1.6 NG/ML (<3.6); MB/CK RELATIVE INDEX 1.72 (< OR =4); THYROID STIMULATING HORMONE 0.893 uIU/ML (0.358-3.740)
[2018-03-06 17:55] LABS: BEDSIDE GLUCOSE 366 MG/DL (80-115)
[2018-03-06] MEDS: FUROSEMIDE 20 MG/2 ML VIAL (J1940) IV (18:04)
[2018-03-06] MEDS: HumaLOG INSULIN (NovoLOG) PER UNIT SC ×3 (18:05→23:34)
[2018-03-06] MEDS: SALMETEROL DISKUS 50MCG INHALER (SEREVENT) INH (21:00)
[2018-03-06 22:13] LABS: BEDSIDE GLUCOSE 584 MG/DL (80-115)
[2018-03-06 23:00] LABS: CPK CREATINE PHOSPHOKINASE 89 U/L (26-192); MB/CK RELATIVE INDEX 2.24 (< OR =4); TROPONIN I < 0.02 NG/ML (< 0.10)
[2018-03-06 23:00] LABS: BEDSIDE GLUCOSE CONFIRMATION 595 MG/DL (LESS THAN 200)
[2018-03-06] MEDS: ATORVASTATIN 20 MG TAB PO (23:30)
[2018-03-06] MEDS: SENOKOT S TAB PO (23:31)
[2018-03-06] MEDS: HEPARIN SOD (PORCINE) 5000 UNITS/ML VIAL SC (23:31)
[2018-03-06] MEDS: LEVEMIR (INSULIN DETEMIR) 1 UNITS/0.01ML SC (23:32)
[2018-03-06] MEDS: PERCOCET 5MG/325MG TAB PO (23:37)
[2018-03-07] MEDS: VANCOMYCIN HCL 1,000 MG, VIAL MATE ADAPTER 1 EACH in D5W 250 ML IV ×2 (01:31→08:23)
[2018-03-07] MEDS: hydrOXYzine 50 MG TAB PO (01:45)
[2018-03-07] MEDS: LevoFLOXacin IV 750 MG in APPROPRIATE DILUENT 1 EA IV (03:27)
[2018-03-07 06:16] LABS: BEDSIDE GLUCOSE 479 MG/DL (80-115)
[2018-03-07] MEDS: PERCOCET 5MG/325MG TAB PO ×3 (06:18→22:03)
[2018-03-07] MEDS: HEPARIN SOD (PORCINE) 5000 UNITS/ML VIAL SC ×3 (06:19→22:05)
[2018-03-07 06:35] LABS: BASO % 0.1 % (0.0-1.0); HEMATOCRIT 28.4 % (36.0-47.0); HEMOGLOBIN 9.6 g/dl (12.0-15.5); IMMATURE GRANULOCYTE % 0.5 % (0-3.0); LYMPH # 0.6 10^3/uL (1.5-4.5); LYMPH % 5.8 % (24.0-44.0); MEAN CORPUSCULAR HEMOGLOBIN 27.4 pg (27.0-33.0); MEAN CORPUSCULAR HGB CONC 33.8 g/dl (32.0-36.5); MEAN CORPUSCULAR VOLUME 81.1 fl (80.0-96.0); MONO # 0.2 10^3/uL (0.0-0.8); MONO % 2.1 % (0.0-5.0); NEUTROPHILS # 9.7 10^3/uL (1.8-7.7); NEUTROPHILS % 91.5 % (36.0-66.0); PLATELET COUNT, AUTOMATED 247 10^3/uL (150-450); WHITE BLOOD COUNT 10.6 10^3/uL (4.0-10.0)
[2018-03-07 07:03] LABS: ANION GAP 11 MEQ/L (8-16); BLOOD UREA NITROGEN 53 MG/DL (7-18); CALCIUM LEVEL 8.4 MG/DL (8.8-10.2); CARBON DIOXIDE LEVEL 21 MEQ/L (21-32); CHLORIDE LEVEL 104 MEQ/L (98-107); CREATININE FOR GFR 1.96 MG/DL (0.55-1.30); GLOMERULAR FILTRATION RATE 27.5 (>45); MAGNESIUM LEVEL 2.1 MG/DL (1.8-2.4); POTASSIUM SERUM 4.3 MEQ/L (3.5-5.1); SODIUM LEVEL 136 MEQ/L (136-145)
[2018-03-07 07:06] LABS: GLUCOSE, FASTING 464 MG/DL (70-100)
[2018-03-07] MEDS: HumaLOG INSULIN (NovoLOG) PER UNIT SC ×4 (07:40→22:03)
[2018-03-07] MEDS: SALMETEROL DISKUS 50MCG INHALER (SEREVENT) INH ×2 (08:05→19:58)
[2018-03-07] MEDS: FUROSEMIDE 20 MG/2 ML VIAL (J1940) IV (08:21)
[2018-03-07] MEDS: PREGABALIN 75 MG CAP(LYRICA) PO (08:21)
[2018-03-07] MEDS: ASPIRIN 81 MG ENTERIC TAB PO (08:22)
[2018-03-07] MEDS: BISOPROLOL FUMARATE 5 MG TAB PO (08:22)
[2018-03-07] MEDS: FERROUS SULFATE 325MG TAB PO (08:22)
[2018-03-07] MEDS: VITAMIN D 1,000 INTERNATIONAL UNITS TABLET PO (08:22)
[2018-03-07] MEDS: amLODIPine 5 MG TAB PO (08:22)
[2018-03-07] MEDS: SENOKOT S TAB PO ×2 (08:22→22:02)
[2018-03-07] MEDS: DULoxetine 30 MG CAP (CYMBALTA) PO (08:22)
[2018-03-07] MEDS: PANTOPRAZOLE 40MG TAB (PROTONIX) PO (08:22)
[2018-03-07 08:23] LABS: BEDSIDE GLUCOSE > 600 MG/DL (80-115)
[2018-03-07 11:50] LABS: BEDSIDE GLUCOSE 448 MG/DL (80-115)
[2018-03-07] MEDS: FUROSEMIDE 40 MG/4 ML VIAL (J1940) IV ×2 (12:16→18:16)
[2018-03-07 17:06] LABS: BEDSIDE GLUCOSE 430 MG/DL (80-115)
[2018-03-07 20:21] LABS: BEDSIDE GLUCOSE 474 MG/DL (80-115)
[2018-03-07] MEDS: ATORVASTATIN 20 MG TAB PO (22:02)
[2018-03-07] MEDS: LEVEMIR (INSULIN DETEMIR) 1 UNITS/0.01ML SC (22:04)
[2018-03-08] MEDS: FUROSEMIDE 40 MG/4 ML VIAL (J1940) IV ×2 (00:56→05:41)
[2018-03-08] MEDS: methylPREDNISolone INJ 40 MG/1 ML VIAL (J2920) IV ×3 (00:56→23:17)
[2018-03-08] MEDS: PERCOCET 5MG/325MG TAB PO (05:41)
[2018-03-08] MEDS: HEPARIN SOD (PORCINE) 5000 UNITS/ML VIAL SC ×3 (05:41→22:35)
[2018-03-08 06:30] LABS: BEDSIDE GLUCOSE 364 MG/DL (80-115)
[2018-03-08 07:22] LABS: BASO % 0.3 % (0.0-1.0); EOS % 0.1 % (0.0-3.0); HEMATOCRIT 29.7 % (36.0-47.0); HEMOGLOBIN 9.6 g/dl (12.0-15.5); IMMATURE GRANULOCYTE % 0.4 % (0-3.0); LYMPH # 0.7 10^3/uL (1.5-4.5); LYMPH % 6.8 % (24.0-44.0); MEAN CORPUSCULAR HEMOGLOBIN 26.8 pg (27.0-33.0); MEAN CORPUSCULAR HGB CONC 32.3 g/dl (32.0-36.5); MONO # 0.1 10^3/uL (0.0-0.8); MONO % 0.9 % (0.0-5.0); NEUTROPHILS # 8.8 10^3/uL (1.8-7.7); NEUTROPHILS % 91.5 % (36.0-66.0); PLATELET COUNT, AUTOMATED 266 10^3/uL (150-450); RED BLOOD COUNT 3.58 10^6/uL (4.00-5.40); RED CELL DISTRIBUTION WIDTH 12.2 % (11.5-14.5); WHITE BLOOD COUNT 9.7 10^3/uL (4.0-10.0)
[2018-03-08 07:45] LABS: ANION GAP 11 MEQ/L (8-16); BLOOD UREA NITROGEN 69 MG/DL (7-18); CALCIUM LEVEL 8.4 MG/DL (8.8-10.2); CARBON DIOXIDE LEVEL 25 MEQ/L (21-32); CHLORIDE LEVEL 104 MEQ/L (98-107); CREATININE FOR GFR 2.36 MG/DL (0.55-1.30); GLOMERULAR FILTRATION RATE 22.2 (>45); GLUCOSE, FASTING 366 MG/DL (70-100); POTASSIUM SERUM 4.2 MEQ/L (3.5-5.1); SODIUM LEVEL 140 MEQ/L (136-145)
[2018-03-08] MEDS: SALMETEROL DISKUS 50MCG INHALER (SEREVENT) INH ×2 (07:59→21:00)
[2018-03-08] MEDS: VITAMIN D 1,000 INTERNATIONAL UNITS TABLET PO (09:25)
[2018-03-08] MEDS: SENOKOT S TAB PO ×2 (09:25→22:34)
[2018-03-08] MEDS: DULoxetine 30 MG CAP (CYMBALTA) PO (09:25)
[2018-03-08] MEDS: HumaLOG INSULIN (NovoLOG) PER UNIT SC ×4 (09:25→23:17)
[2018-03-08] MEDS: FERROUS SULFATE 325MG TAB PO (09:25)
[2018-03-08] MEDS: ASPIRIN 81 MG ENTERIC TAB PO (09:26)
[2018-03-08] MEDS: PREGABALIN 75 MG CAP(LYRICA) PO (09:26)
[2018-03-08] MEDS: PANTOPRAZOLE 40MG TAB (PROTONIX) PO (09:26)
[2018-03-08] MEDS: amLODIPine 5 MG TAB PO (09:28)
[2018-03-08] MEDS: BISOPROLOL FUMARATE 5 MG TAB PO (09:28)
[2018-03-08 11:52] LABS: BEDSIDE GLUCOSE 478 MG/DL (80-115)
[2018-03-08 16:48] LABS: BEDSIDE GLUCOSE 467 MG/DL (80-115)
[2018-03-08 20:50] LABS: BEDSIDE GLUCOSE 559 MG/DL (80-115)
[2018-03-08 20:51] LABS: BEDSIDE GLUCOSE 562 MG/DL (80-115)
[2018-03-08 22:30] LABS: BEDSIDE GLUCOSE CONFIRMATION 544 MG/DL (LESS THAN 200)
[2018-03-08] MEDS: ATORVASTATIN 20 MG TAB PO (22:34)
[2018-03-08] MEDS: LEVEMIR (INSULIN DETEMIR) 1 UNITS/0.01ML SC (22:38)
[2018-03-09] MEDS: PERCOCET 5MG/325MG TAB PO (00:18)
[2018-03-09] MEDS: LevoFLOXacin IV 750 MG in APPROPRIATE DILUENT 1 EA IV (03:46)
[2018-03-09] MEDS: HEPARIN SOD (PORCINE) 5000 UNITS/ML VIAL SC ×3 (05:20→21:29)
[2018-03-09 06:45] LABS: BEDSIDE GLUCOSE 405 MG/DL (80-115)
[2018-03-09 07:07] LABS: BASO % 0.1 % (0.0-1.0); HEMATOCRIT 28.6 % (36.0-47.0); HEMOGLOBIN 9.6 g/dl (12.0-15.5); IMMATURE GRANULOCYTE % 1.2 % (0-3.0); LYMPH # 0.4 10^3/uL (1.5-4.5); MEAN CORPUSCULAR HEMOGLOBIN 27.3 pg (27.0-33.0); MEAN CORPUSCULAR HGB CONC 33.6 g/dl (32.0-36.5); MEAN CORPUSCULAR VOLUME 81.3 fl (80.0-96.0); MONO # 0.2 10^3/uL (0.0-0.8); MONO % 1.9 % (0.0-5.0); NEUTROPHILS # 9.8 10^3/uL (1.8-7.7); NEUTROPHILS % 92.8 % (36.0-66.0); PLATELET COUNT, AUTOMATED 244 10^3/uL (150-450); RED BLOOD COUNT 3.52 10^6/uL (4.00-5.40); WHITE BLOOD COUNT 10.6 10^3/uL (4.0-10.0)
[2018-03-09 07:20] LABS: ANION GAP 9 MEQ/L (8-16); BLOOD UREA NITROGEN 69 MG/DL (7-18); CALCIUM LEVEL 8.3 MG/DL (8.8-10.2); CARBON DIOXIDE LEVEL 25 MEQ/L (21-32); CHLORIDE LEVEL 104 MEQ/L (98-107); CREATININE FOR GFR 1.98 MG/DL (0.55-1.30); GLOMERULAR FILTRATION RATE 27.2 (>45); MAGNESIUM LEVEL 2.1 MG/DL (1.8-2.4); POTASSIUM SERUM 4.1 MEQ/L (3.5-5.1); SODIUM LEVEL 138 MEQ/L (136-145)
[2018-03-09 07:21] LABS: GLUCOSE, FASTING 439 MG/DL (70-100)
[2018-03-09] MEDS: SALMETEROL DISKUS 50MCG INHALER (SEREVENT) INH ×2 (08:15→21:02)
[2018-03-09] MEDS: PANTOPRAZOLE 40MG TAB (PROTONIX) PO (09:15)
[2018-03-09] MEDS: ASPIRIN 81 MG ENTERIC TAB PO (09:15)
[2018-03-09] MEDS: DULoxetine 30 MG CAP (CYMBALTA) PO (09:15)
[2018-03-09] MEDS: SENOKOT S TAB PO ×2 (09:15→21:29)
[2018-03-09] MEDS: FERROUS SULFATE 325MG TAB PO (09:15)
[2018-03-09] MEDS: HumaLOG INSULIN (NovoLOG) PER UNIT SC ×4 (09:15→21:32)
[2018-03-09] MEDS: VITAMIN D 1,000 INTERNATIONAL UNITS TABLET PO (09:15)
[2018-03-09] MEDS: PREGABALIN 75 MG CAP(LYRICA) PO (09:15)
[2018-03-09] MEDS: BISOPROLOL FUMARATE 5 MG TAB PO (09:16)
[2018-03-09] MEDS: amLODIPine 5 MG TAB PO (09:16)
[2018-03-09 11:50] LABS: BEDSIDE GLUCOSE 429 MG/DL (80-115)
[2018-03-09] MEDS: methylPREDNISolone INJ 40 MG/1 ML VIAL (J2920) IV (13:35)
[2018-03-09] MEDS ORDERED: PILL CRUSHER/CUTTER 1 EACH XX (17:15)
[2018-03-09 17:25] LABS: BEDSIDE GLUCOSE 383 MG/DL (80-115)
[2018-03-09 20:07] LABS: BEDSIDE GLUCOSE 425 MG/DL (80-115)
[2018-03-09] MEDS: ATORVASTATIN 20 MG TAB PO (21:29)
[2018-03-09] MEDS: hydrOXYzine 50 MG TAB PO (21:29)
[2018-03-09] MEDS: LEVEMIR (INSULIN DETEMIR) 1 UNITS/0.01ML SC (21:32)
[2018-03-10] MEDS: PERCOCET 5MG/325MG TAB PO ×2 (03:33→08:46)
[2018-03-10] MEDS: HEPARIN SOD (PORCINE) 5000 UNITS/ML VIAL SC ×3 (05:49→22:45)
[2018-03-10 06:36] LABS: BASO % 0.2 % (0.0-1.0); HEMATOCRIT 28.6 % (36.0-47.0); HEMOGLOBIN 9.6 g/dl (12.0-15.5); IMMATURE GRANULOCYTE % 1.9 % (0-3.0); LYMPH % 8.9 % (24.0-44.0); MEAN CORPUSCULAR HEMOGLOBIN 27.4 pg (27.0-33.0); MEAN CORPUSCULAR HGB CONC 33.6 g/dl (32.0-36.5); MEAN CORPUSCULAR VOLUME 81.5 fl (80.0-96.0); MONO # 0.9 10^3/uL (0.0-0.8); MONO % 7.9 % (0.0-5.0); NEUTROPHILS # 8.7 10^3/uL (1.8-7.7); NEUTROPHILS % 81.1 % (36.0-66.0); PLATELET COUNT, AUTOMATED 227 10^3/uL (150-450); RED BLOOD COUNT 3.51 10^6/uL (4.00-5.40); RED CELL DISTRIBUTION WIDTH 12.2 % (11.5-14.5); WHITE BLOOD COUNT 10.7 10^3/uL (4.0-10.0)
[2018-03-10 06:50] LABS: ANION GAP 5 MEQ/L (8-16); BLOOD UREA NITROGEN 61 MG/DL (7-18); CALCIUM LEVEL 8.3 MG/DL (8.8-10.2); CARBON DIOXIDE LEVEL 27 MEQ/L (21-32); CHLORIDE LEVEL 108 MEQ/L (98-107); GLOMERULAR FILTRATION RATE 32.4 (>45); GLUCOSE, FASTING 336 MG/DL (70-100); POTASSIUM SERUM 3.8 MEQ/L (3.5-5.1); SODIUM LEVEL 140 MEQ/L (136-145)
[2018-03-10] MEDS: SALMETEROL DISKUS 50MCG INHALER (SEREVENT) INH ×2 (07:57→21:13)
[2018-03-10] MEDS: CHLORTHALIDONE 12.5MG PER 1/2 TABLET PO (08:44)
[2018-03-10] MEDS: DULoxetine 30 MG CAP (CYMBALTA) PO (08:44)
[2018-03-10] MEDS: predniSONE 20 MG TAB PO (08:45)
[2018-03-10] MEDS: amLODIPine 5 MG TAB PO (08:45)
[2018-03-10] MEDS: PANTOPRAZOLE 40MG TAB (PROTONIX) PO (08:45)
[2018-03-10] MEDS: BISOPROLOL FUMARATE 5 MG TAB PO (08:45)
[2018-03-10] MEDS: LEVEMIR (INSULIN DETEMIR) 1 UNITS/0.01ML SC ×2 (08:46→22:46)
[2018-03-10] MEDS: PREGABALIN 75 MG CAP(LYRICA) PO (08:46)
[2018-03-10] MEDS: FERROUS SULFATE 325MG TAB PO (08:46)
[2018-03-10] MEDS: VITAMIN D 1,000 INTERNATIONAL UNITS TABLET PO (08:46)
[2018-03-10] MEDS: ASPIRIN 81 MG ENTERIC TAB PO (08:46)
[2018-03-10] MEDS: SENOKOT S TAB PO ×2 (08:46→22:45)
[2018-03-10] MEDS: HumaLOG INSULIN (NovoLOG) PER UNIT SC ×4 (08:47→22:46)
[2018-03-10 11:48] LABS: BEDSIDE GLUCOSE 336 MG/DL (80-115)
[2018-03-10 17:09] LABS: BEDSIDE GLUCOSE 472 MG/DL (80-115)
[2018-03-10] MEDS: MAGNESIUM CITRATE 300 ML BTL PO (18:15)
[2018-03-10 20:19] LABS: BEDSIDE GLUCOSE 471 MG/DL (80-115)
[2018-03-10] MEDS: ATORVASTATIN 20 MG TAB PO (22:45)
[2018-03-11] MEDS: HEPARIN SOD (PORCINE) 5000 UNITS/ML VIAL SC ×3 (05:34→21:27)
[2018-03-11] MEDS: LevoFLOXacin 750 MG TABLET PO (05:34)
[2018-03-11 07:53] LABS: BEDSIDE GLUCOSE 167 MG/DL (80-115)
[2018-03-11] MEDS: PREGABALIN 75 MG CAP(LYRICA) PO (08:19)
[2018-03-11] MEDS: LEVEMIR (INSULIN DETEMIR) 1 UNITS/0.01ML SC ×2 (08:19→21:29)
[2018-03-11] MEDS: HumaLOG INSULIN (NovoLOG) PER UNIT SC ×4 (08:19→21:28)
[2018-03-11] MEDS: predniSONE 20 MG TAB PO (08:19)
[2018-03-11] MEDS: SENOKOT S TAB PO ×2 (08:19→21:27)
[2018-03-11] MEDS: VITAMIN D 1,000 INTERNATIONAL UNITS TABLET PO (08:19)
[2018-03-11] MEDS: CHLORTHALIDONE 12.5MG PER 1/2 TABLET PO (08:19)
[2018-03-11] MEDS: DULoxetine 30 MG CAP (CYMBALTA) PO (08:19)
[2018-03-11] MEDS: ASPIRIN 81 MG ENTERIC TAB PO (08:19)
[2018-03-11] MEDS: MIRALAX *UNIT DOSE* 17GM PACKET PO (08:19)
[2018-03-11] MEDS: PANTOPRAZOLE 40MG TAB (PROTONIX) PO (08:19)
[2018-03-11] MEDS: BISOPROLOL FUMARATE 5 MG TAB PO (08:20)
[2018-03-11] MEDS: FERROUS SULFATE 325MG TAB PO (08:20)
[2018-03-11] MEDS: amLODIPine 5 MG TAB PO (08:20)
[2018-03-11] MEDS: SALMETEROL DISKUS 50MCG INHALER (SEREVENT) INH ×2 (08:52→19:26)
[2018-03-11 09:05] LABS: BASO % 0.1 % (0.0-1.0); EOS # 0.2 10^3/uL (0.0-0.50); EOS % 1.5 % (0.0-3.0); HEMATOCRIT 32.5 % (36.0-47.0); IMMATURE GRANULOCYTE % 2.3 % (0-3.0); LYMPH # 2.1 10^3/uL (1.5-4.5); LYMPH % 18.2 % (24.0-44.0); MEAN CORPUSCULAR HEMOGLOBIN 27.2 pg (27.0-33.0); MEAN CORPUSCULAR HGB CONC 33.8 g/dl (32.0-36.5); MEAN CORPUSCULAR VOLUME 80.4 fl (80.0-96.0); MONO % 8.3 % (0.0-5.0); NEUTROPHILS # 8.2 10^3/uL (1.8-7.7); NEUTROPHILS % 69.6 % (36.0-66.0); PLATELET COUNT, AUTOMATED 276 10^3/uL (150-450); RED BLOOD COUNT 4.04 10^6/uL (4.00-5.40); RED CELL DISTRIBUTION WIDTH 12.2 % (11.5-14.5); WHITE BLOOD COUNT 11.7 10^3/uL (4.0-10.0)
[2018-03-11 09:27] LABS: ANION GAP 8 MEQ/L (8-16); BLOOD UREA NITROGEN 50 MG/DL (7-18); CALCIUM LEVEL 8.4 MG/DL (8.8-10.2); CARBON DIOXIDE LEVEL 29 MEQ/L (21-32); CHLORIDE LEVEL 106 MEQ/L (98-107); CREATININE FOR GFR 1.33 MG/DL (0.55-1.30); GLUCOSE, FASTING 149 MG/DL (70-100); POTASSIUM SERUM 3.8 MEQ/L (3.5-5.1); SODIUM LEVEL 143 MEQ/L (136-145)
[2018-03-11 11:46] LABS: BEDSIDE GLUCOSE 327 MG/DL (80-115)
[2018-03-11] MEDS: PERCOCET 5MG/325MG TAB PO (11:57)
[2018-03-11 16:59] LABS: BEDSIDE GLUCOSE 575 MG/DL (80-115)
[2018-03-11 20:29] LABS: BEDSIDE GLUCOSE 543 MG/DL (80-115)
[2018-03-11] MEDS: ATORVASTATIN 20 MG TAB PO (21:27)
[2018-03-12] MEDS: PERCOCET 5MG/325MG TAB PO ×4 (00:53→23:26)
[2018-03-12] MEDS: HEPARIN SOD (PORCINE) 5000 UNITS/ML VIAL SC ×3 (05:46→21:41)
[2018-03-12 06:49] LABS: HEMATOCRIT 31.1 % (36.0-47.0); HEMOGLOBIN 10.2 g/dl (12.0-15.5); MEAN CORPUSCULAR HEMOGLOBIN 26.9 pg (27.0-33.0); MEAN CORPUSCULAR HGB CONC 32.8 g/dl (32.0-36.5); MEAN CORPUSCULAR VOLUME 82.1 fl (80.0-96.0); PLATELET COUNT, AUTOMATED 236 10^3/uL (150-450); RED BLOOD COUNT 3.79 10^6/uL (4.00-5.40); WHITE BLOOD COUNT 10.7 10^3/uL (4.0-10.0)
[2018-03-12 07:10] LABS: ALBUMIN 2.6 GM/DL (3.2-5.2); ALBUMIN/GLOBULIN RATIO 0.84 (1.00-1.93); ALKALINE PHOSPHATASE 56 U/L (45-117); ALT/SGPT 22 U/L (12-78); ANION GAP 4 MEQ/L (8-16); AST/SGOT 6 U/L (7-37); BILIRUBIN,TOTAL 0.2 MG/DL (0.2-1.0); BLOOD UREA NITROGEN 45 MG/DL (7-18); CALCIUM LEVEL 8.2 MG/DL (8.8-10.2); CARBON DIOXIDE LEVEL 30 MEQ/L (21-32); CHLORIDE LEVEL 108 MEQ/L (98-107); CREATININE FOR GFR 1.55 MG/DL (0.55-1.30); GLOMERULAR FILTRATION RATE 36.1 (>45); GLUCOSE, FASTING 193 MG/DL (70-100); POTASSIUM SERUM 3.7 MEQ/L (3.5-5.1); SODIUM LEVEL 142 MEQ/L (136-145); TOTAL PROTEIN 5.7 GM/DL (6.4-8.2)
[2018-03-12] MEDS: SALMETEROL DISKUS 50MCG INHALER (SEREVENT) INH ×2 (07:48→21:55)
[2018-03-12] MEDS: HumaLOG INSULIN (NovoLOG) PER UNIT SC ×4 (08:08→21:42)
[2018-03-12] MEDS: DULoxetine 30 MG CAP (CYMBALTA) PO (08:08)
[2018-03-12] MEDS: PREGABALIN 75 MG CAP(LYRICA) PO (08:08)
[2018-03-12] MEDS: LEVEMIR (INSULIN DETEMIR) 1 UNITS/0.01ML SC ×2 (08:08→21:41)
[2018-03-12] MEDS: CHLORTHALIDONE 12.5MG PER 1/2 TABLET PO (08:08)
[2018-03-12] MEDS: MIRALAX *UNIT DOSE* 17GM PACKET PO (08:08)
[2018-03-12] MEDS: ASPIRIN 81 MG ENTERIC TAB PO (08:09)
[2018-03-12] MEDS: BISOPROLOL FUMARATE 5 MG TAB PO (08:09)
[2018-03-12] MEDS: SENOKOT S TAB PO ×2 (08:09→21:42)
[2018-03-12] MEDS: FERROUS SULFATE 325MG TAB PO (08:09)
[2018-03-12] MEDS: predniSONE 20 MG TAB PO (08:09)
[2018-03-12] MEDS: PANTOPRAZOLE 40MG TAB (PROTONIX) PO (08:09)
[2018-03-12] MEDS: VITAMIN D 1,000 INTERNATIONAL UNITS TABLET PO (08:09)
[2018-03-12] MEDS: amLODIPine 5 MG TAB PO (08:09)
[2018-03-12 09:00] LABS: BEDSIDE GLUCOSE 129 MG/DL (80-115)
[2018-03-12 09:12] LABS: BEDSIDE GLUCOSE > 600 MG/DL (80-115)
[2018-03-12 11:29] LABS: BEDSIDE GLUCOSE 356 MG/DL (80-115)
[2018-03-12 16:58] LABS: BEDSIDE GLUCOSE 462 MG/DL (80-115)
[2018-03-12 21:23] LABS: BEDSIDE GLUCOSE 367 MG/DL (80-115)
[2018-03-12] MEDS: ATORVASTATIN 20 MG TAB PO (21:42)
[2018-03-13] MEDS: LevoFLOXacin 750 MG TABLET PO (06:10)
[2018-03-13] MEDS: HEPARIN SOD (PORCINE) 5000 UNITS/ML VIAL SC ×3 (06:10→21:45)
[2018-03-13] MEDS: ACETAMINOPHEN TAB 650MG DOSE (2X325MG) PO (06:11)
[2018-03-13 06:26] LABS: BEDSIDE GLUCOSE 138 MG/DL (80-115)
[2018-03-13] MEDS: HumaLOG INSULIN (NovoLOG) PER UNIT SC ×4 (08:17→21:46)
[2018-03-13] MEDS: FERROUS SULFATE 325MG TAB PO (08:18)
[2018-03-13] MEDS: predniSONE 20 MG TAB PO (08:18)
[2018-03-13] MEDS: CHLORTHALIDONE 12.5MG PER 1/2 TABLET PO (08:18)
[2018-03-13] MEDS: SENOKOT S TAB PO ×2 (08:18→21:00)
[2018-03-13] MEDS: VITAMIN D 1,000 INTERNATIONAL UNITS TABLET PO (08:18)
[2018-03-13] MEDS: DULoxetine 30 MG CAP (CYMBALTA) PO (08:18)
[2018-03-13] MEDS: MIRALAX *UNIT DOSE* 17GM PACKET PO (08:18)
[2018-03-13] MEDS: PREGABALIN 75 MG CAP(LYRICA) PO (08:18)
[2018-03-13] MEDS: LEVEMIR (INSULIN DETEMIR) 1 UNITS/0.01ML SC ×2 (08:18→21:46)
[2018-03-13] MEDS: ASPIRIN 81 MG ENTERIC TAB PO (08:18)
[2018-03-13] MEDS: BISOPROLOL FUMARATE 5 MG TAB PO (08:19)
[2018-03-13] MEDS: PANTOPRAZOLE 40MG TAB (PROTONIX) PO (08:19)
[2018-03-13] MEDS: amLODIPine 5 MG TAB PO (08:19)
[2018-03-13 11:38] LABS: BEDSIDE GLUCOSE 276 MG/DL (80-115)
[2018-03-13] MEDS: PERCOCET 5MG/325MG TAB PO ×2 (11:39→21:45)
[2018-03-13] MEDS: SALMETEROL DISKUS 50MCG INHALER (SEREVENT) INH ×2 (11:54→21:00)
[2018-03-13 16:49] LABS: BEDSIDE GLUCOSE 403 MG/DL (80-115)
[2018-03-13 20:45] LABS: BEDSIDE GLUCOSE 405 MG/DL (80-115)
[2018-03-13] MEDS: ATORVASTATIN 20 MG TAB PO (21:44)
[2018-03-14] MEDS: HEPARIN SOD (PORCINE) 5000 UNITS/ML VIAL SC ×3 (05:49→21:21)
[2018-03-14] MEDS: PERCOCET 5MG/325MG TAB PO ×2 (05:50→14:16)
[2018-03-14 06:41] LABS: BEDSIDE GLUCOSE 170 MG/DL (80-115)
[2018-03-14] MEDS: LEVEMIR (INSULIN DETEMIR) 1 UNITS/0.01ML SC ×2 (08:46→21:22)
[2018-03-14] MEDS: ASPIRIN 81 MG ENTERIC TAB PO (08:46)
[2018-03-14] MEDS: HumaLOG INSULIN (NovoLOG) PER UNIT SC ×4 (08:46→21:22)
[2018-03-14] MEDS: DULoxetine 30 MG CAP (CYMBALTA) PO (08:46)
[2018-03-14] MEDS: PANTOPRAZOLE 40MG TAB (PROTONIX) PO (08:47)
[2018-03-14] MEDS: SENOKOT S TAB PO ×2 (08:47→21:20)
[2018-03-14] MEDS: amLODIPine 10 MG TAB PO (08:47)
[2018-03-14] MEDS: VITAMIN D 1,000 INTERNATIONAL UNITS TABLET PO (08:47)
[2018-03-14] MEDS: MIRALAX *UNIT DOSE* 17GM PACKET PO (08:47)
[2018-03-14] MEDS: PREGABALIN 75 MG CAP(LYRICA) PO (08:48)
[2018-03-14] MEDS: FERROUS SULFATE 325MG TAB PO (08:48)
[2018-03-14] MEDS: CHLORTHALIDONE 12.5MG PER 1/2 TABLET PO (08:48)
[2018-03-14] MEDS: BISOPROLOL FUMARATE 5 MG TAB PO (08:48)
[2018-03-14] MEDS: predniSONE 20 MG TAB PO (08:48)
[2018-03-14] MEDS: SALMETEROL DISKUS 50MCG INHALER (SEREVENT) INH ×2 (09:14→20:16)
[2018-03-14 12:10] LABS: BEDSIDE GLUCOSE 289 MG/DL (80-115)
[2018-03-14 17:45] LABS: BEDSIDE GLUCOSE 425 MG/DL (80-115)
[2018-03-14 20:09] LABS: BEDSIDE GLUCOSE 433 MG/DL (80-115)
[2018-03-14] MEDS: ATORVASTATIN 20 MG TAB PO (21:20)
[2018-03-15] MEDS: PERCOCET 5MG/325MG TAB PO (02:21)
[2018-03-15] MEDS: LevoFLOXacin 750 MG TABLET PO (05:24)
[2018-03-15] MEDS: HEPARIN SOD (PORCINE) 5000 UNITS/ML VIAL SC (05:25)
[2018-03-15 06:04] LABS: BEDSIDE GLUCOSE 103 MG/DL (80-115)
[2018-03-15] MEDS: amLODIPine 10 MG TAB PO (08:10)
[2018-03-15] MEDS: predniSONE 20 MG TAB PO (08:10)
[2018-03-15] MEDS: HumaLOG INSULIN (NovoLOG) PER UNIT SC ×2 (08:10→12:00)
[2018-03-15] MEDS: ASPIRIN 81 MG ENTERIC TAB PO (08:10)
[2018-03-15] MEDS: CHLORTHALIDONE 12.5MG PER 1/2 TABLET PO (08:10)
[2018-03-15] MEDS: DULoxetine 30 MG CAP (CYMBALTA) PO (08:10)
[2018-03-15] MEDS: LEVEMIR (INSULIN DETEMIR) 1 UNITS/0.01ML SC (08:10)
[2018-03-15] MEDS: VITAMIN D 1,000 INTERNATIONAL UNITS TABLET PO (08:10)
[2018-03-15] MEDS: FERROUS SULFATE 325MG TAB PO (08:11)
[2018-03-15] MEDS: PREGABALIN 75 MG CAP(LYRICA) PO (08:11)
[2018-03-15] MEDS: BISOPROLOL FUMARATE 5 MG TAB PO (08:11)
[2018-03-15] MEDS: MIRALAX *UNIT DOSE* 17GM PACKET PO (08:11)
[2018-03-15] MEDS: SENOKOT S TAB PO (08:11)
[2018-03-15] MEDS: PANTOPRAZOLE 40MG TAB (PROTONIX) PO (08:11)
[2018-03-15] MEDS: SALMETEROL DISKUS 50MCG INHALER (SEREVENT) INH (08:23)
== END 2018-03-15 12:30 | disposition home or self-care (01) | DRG 195 ==
LOC: M ED 11:24 → M ED INP 16:11 → M MS5PR 21:42
DX: J18.9 Pneumonia, unspecified organism (principal); I12.9 Hypertensive chronic kidney disease with stage 1 through stage 4 chronic kidney disease, or unspecified chronic kidney disease; N18.3 Chronic kidney disease, stage 3 (moderate); D63.1 Anemia in chronic kidney disease; E11.9 Type 2 diabetes mellitus without complications; Z79.899 Other long term (current) drug therapy; Z79.4 Long term (current) use of insulin; Z88.0 Allergy status to penicillin; J44.9 Chronic obstructive pulmonary disease, unspecified; Z79.82 Long term (current) use of aspirin; Z87.891 Personal history of nicotine dependence; E66.01 Morbid (severe) obesity due to excess calories; F32.9 Major depressive disorder, single episode, unspecified

== ENCOUNTER 2018-04-11 21:03 | Inpatient (IN) | payer MEDICARE ==
[2018-04-11] MEDS: methylPREDNISolone INJ 125 MG/2 ML VIAL (J2930) IV (22:45)
[2018-04-11 23:17] LABS: BASO % 0.3 % (0.0-1.0); EOS # 0.1 10^3/uL (0.0-0.50); EOS % 1.3 % (0.0-3.0); HEMATOCRIT 30.2 % (36.0-47.0); HEMOGLOBIN 9.6 g/dl (12.0-15.5); IMMATURE GRANULOCYTE % 0.6 % (0-3.0); LYMPH # 1.3 10^3/uL (1.5-4.5); LYMPH % 12.3 % (24.0-44.0); MEAN CORPUSCULAR HEMOGLOBIN 27.3 pg (27.0-33.0); MEAN CORPUSCULAR HGB CONC 31.8 g/dl (32.0-36.5); MEAN CORPUSCULAR VOLUME 85.8 fl (80.0-96.0); MONO # 0.6 10^3/uL (0.0-0.8); MONO % 5.4 % (0.0-5.0); NEUTROPHILS # 8.7 10^3/uL (1.8-7.7); NEUTROPHILS % 80.1 % (36.0-66.0); PLATELET COUNT, AUTOMATED 322 10^3/uL (150-450); RED BLOOD COUNT 3.52 10^6/uL (4.00-5.40); RED CELL DISTRIBUTION WIDTH 12.8 % (11.5-14.5); WHITE BLOOD COUNT 10.8 10^3/uL (4.0-10.0)
[2018-04-11] MEDS: IPRATROPIUM 0.5MG/ALBUTEROL 2.5MG INH SOL UD 3ML (DUONEB)(J7620) NEB (23:26)
[2018-04-11 23:39] LABS: ALBUMIN 2.9 GM/DL (3.2-5.2); ALBUMIN/GLOBULIN RATIO 0.94 (1.00-1.93); ALKALINE PHOSPHATASE 78 U/L (45-117); ALT/SGPT 21 U/L (12-78); ANION GAP 9 MEQ/L (8-16); AST/SGOT 9 U/L (7-37); BILIRUBIN,DIRECT < 0.1 MG/DL (0.0-0.2); BILIRUBIN,TOTAL 0.2 MG/DL (0.2-1.0); BLOOD UREA NITROGEN 38 MG/DL (7-18); CALCIUM LEVEL 8.1 MG/DL (8.8-10.2); CARBON DIOXIDE LEVEL 23 MEQ/L (21-32); CHLORIDE LEVEL 111 MEQ/L (98-107); CPK CREATINE PHOSPHOKINASE 186 U/L (26-192); CREATININE FOR GFR 1.98 MG/DL (0.55-1.30); GLOMERULAR FILTRATION RATE 27.2 (>45); POTASSIUM SERUM 4.3 MEQ/L (3.5-5.1); SODIUM LEVEL 143 MEQ/L (136-145); TROPONIN I 0.04 NG/ML (< 0.10)
[2018-04-11 23:45] LABS: CK-MB VALUE MASS 2.7 NG/ML (<3.6); MB/CK RELATIVE INDEX 1.45 (< OR =4); NT-PRO BNP 3408 PG/ML (<125)
[2018-04-11 23:50] LABS: GLUCOSE, FASTING 446 MG/DL (70-100)
[2018-04-12] MEDS: LevoFLOXacin IV 750 MG in APPROPRIATE DILUENT 1 EA IV (00:15)
[2018-04-12] MEDS: IPRATROPIUM 0.5MG/ALBUTEROL 2.5MG INH SOL UD 3ML (DUONEB)(J7620) NEB ×5 (00:20→20:00)
[2018-04-12 01:34] LABS: ABG BASE EXCESS -4.4 (-2.0-2.0); ABG HCO3 19.7 MEQ/L (22.0-26.0); ABG O2 SATURATION 92.5 % (95.0-99.0); ABG PARTIAL PRESSURE CO2 32.9 mmHg (35.0-45.0); ABG PARTIAL PRESSURE O2 65.9 mmHg (75.0-100.0); ABG STANDARD HCO3 20.7 MEQ/L (22.0-26.0); ABG TOTAL CO2 20.7 MEQ/L (23.0-31.0); ABG pH (ARTERIAL) 7.396 UNITS (7.350-7.450)
[2018-04-12] MEDS ORDERED: GLUCOSE 4 GM CHEW TABLET PO ×2 (03:45→07:45)
[2018-04-12] MEDS ORDERED: GLUCAGON FOR INJ 1 MG VIAL (J1610) SC ×2 (03:45→07:45)
[2018-04-12] MEDS ORDERED: NS 1,000 ML IV (03:45)
[2018-04-12] MEDS ORDERED: DEXTROSE 50% 50 ML SYRINGE IV ×2 (03:45→07:45)
[2018-04-12] MEDS ORDERED: amLODIPine 10 MG TAB As Ordered (06:08)
[2018-04-12] MEDS: amLODIPine 10 MG TAB PO (06:12)
[2018-04-12] MEDS: HEPARIN SOD (PORCINE) 5000 UNITS/ML VIAL SC ×3 (06:12→21:00)
[2018-04-12] MEDS: CEFEPIME HCL 1 GM in D5W MINI-BAG PLUS 50 ML IV ×2 (06:27→19:27)
[2018-04-12] MEDS: HumaLOG INSULIN (NovoLOG) PER UNIT SC ×6 (07:30→21:01)
[2018-04-12 07:38] LABS: BEDSIDE GLUCOSE 555 MG/DL (80-115)
[2018-04-12] MEDS: TIOTROPIUM INHALER/CAPSULE (SPIRIVA) INH (08:00)
[2018-04-12 08:12] LABS: HEMATOCRIT 32.3 % (36.0-47.0); HEMOGLOBIN 10.4 g/dl (12.0-15.5); MEAN CORPUSCULAR HEMOGLOBIN 27.2 pg (27.0-33.0); MEAN CORPUSCULAR HGB CONC 32.2 g/dl (32.0-36.5); MEAN CORPUSCULAR VOLUME 84.6 fl (80.0-96.0); PLATELET COUNT, AUTOMATED 350 10^3/uL (150-450); RED BLOOD COUNT 3.82 10^6/uL (4.00-5.40); RED CELL DISTRIBUTION WIDTH 12.6 % (11.5-14.5)
[2018-04-12] MEDS: FAMOTIDINE 20 MG TAB PO (08:18)
[2018-04-12] MEDS: predniSONE 20 MG TAB PO (08:18)
[2018-04-12] MEDS: FERROUS SULFATE 325MG TAB PO (08:18)
[2018-04-12] MEDS: DULoxetine 30 MG CAP (CYMBALTA) PO (08:18)
[2018-04-12] MEDS: VITAMIN D 1,000 INTERNATIONAL UNITS TABLET PO (08:19)
[2018-04-12] MEDS: ASPIRIN 81 MG ENTERIC TAB PO (08:19)
[2018-04-12] MEDS: LEVEMIR (INSULIN DETEMIR) 1 UNITS/0.01ML SC ×2 (08:19→21:01)
[2018-04-12] MEDS: PANTOPRAZOLE 40MG TAB (PROTONIX) PO (08:19)
[2018-04-12] MEDS: SALMETEROL DISKUS 50MCG INHALER (SEREVENT) INH (08:27)
[2018-04-12 08:28] LABS: ANION GAP 12 MEQ/L (8-16); BLOOD UREA NITROGEN 44 MG/DL (7-18); CALCIUM LEVEL 8.5 MG/DL (8.8-10.2); CARBON DIOXIDE LEVEL 22 MEQ/L (21-32); CHLORIDE LEVEL 104 MEQ/L (98-107); GLOMERULAR FILTRATION RATE 26.9 (>45); POTASSIUM SERUM 4.3 MEQ/L (3.5-5.1); SODIUM LEVEL 138 MEQ/L (136-145)
[2018-04-12 08:35] LABS: GLUCOSE, FASTING 609 MG/DL (70-100)
[2018-04-12] MEDS: BISOPROLOL FUMARATE 10 MG TAB PO (09:30)
[2018-04-12 09:36] LABS: BEDSIDE GLUCOSE > 600 MG/DL (80-115)
[2018-04-12 10:57] LABS: BEDSIDE GLUCOSE 509 MG/DL (80-115)
[2018-04-12 11:44] LABS: BEDSIDE GLUCOSE 480 MG/DL (80-115)
[2018-04-12] MEDS: NS 1,000 ML IV (14:21)
[2018-04-12] MEDS: AZITHROMYCIN INJ 500 MG, VIAL MATE ADAPTER 1 EACH in D5W 250 ML IV (16:31)
[2018-04-12 17:07] LABS: BEDSIDE GLUCOSE 413 MG/DL (80-115)
[2018-04-12 18:44] LABS: ANION GAP 13 MEQ/L (8-16); BLOOD UREA NITROGEN 50 MG/DL (7-18); CALCIUM LEVEL 8.3 MG/DL (8.8-10.2); CARBON DIOXIDE LEVEL 19 MEQ/L (21-32); CHLORIDE LEVEL 107 MEQ/L (98-107); CREATININE FOR GFR 1.89 MG/DL (0.55-1.30); GLOMERULAR FILTRATION RATE 28.7 (>45); POTASSIUM SERUM 4.6 MEQ/L (3.5-5.1); SODIUM LEVEL 139 MEQ/L (136-145)
[2018-04-12 18:47] LABS: GLUCOSE, FASTING 415 MG/DL (70-100)
[2018-04-12] MEDS: SYMBICORT 160/4.5MCG INHALER 6GM INH (19:42)
[2018-04-12 20:15] LABS: BEDSIDE GLUCOSE 374 MG/DL (80-115)
[2018-04-12] MEDS: ATORVASTATIN 20 MG TAB PO (21:00)
[2018-04-13] MEDS: IPRATROPIUM 0.5MG/ALBUTEROL 2.5MG INH SOL UD 3ML (DUONEB)(J7620) NEB ×4 (00:33→19:35)
[2018-04-13 06:13] LABS: HEMATOCRIT 26.3 % (36.0-47.0); HEMOGLOBIN 8.8 g/dl (12.0-15.5); MEAN CORPUSCULAR HEMOGLOBIN 27.8 pg (27.0-33.0); MEAN CORPUSCULAR HGB CONC 33.5 g/dl (32.0-36.5); MEAN CORPUSCULAR VOLUME 83.2 fl (80.0-96.0); PLATELET COUNT, AUTOMATED 293 10^3/uL (150-450); RED BLOOD COUNT 3.16 10^6/uL (4.00-5.40); RED CELL DISTRIBUTION WIDTH 12.8 % (11.5-14.5); WHITE BLOOD COUNT 14.3 10^3/uL (4.0-10.0)
[2018-04-13 06:32] LABS: ANION GAP 10 MEQ/L (8-16); BLOOD UREA NITROGEN 54 MG/DL (7-18); CALCIUM LEVEL 8.3 MG/DL (8.8-10.2); CARBON DIOXIDE LEVEL 23 MEQ/L (21-32); CHLORIDE LEVEL 110 MEQ/L (98-107); CREATININE FOR GFR 1.75 MG/DL (0.55-1.30); GLOMERULAR FILTRATION RATE 31.4 (>45); GLUCOSE, FASTING 190 MG/DL (70-100); POTASSIUM SERUM 4.1 MEQ/L (3.5-5.1); SODIUM LEVEL 143 MEQ/L (136-145)
[2018-04-13] MEDS: HEPARIN SOD (PORCINE) 5000 UNITS/ML VIAL SC ×3 (06:40→21:05)
[2018-04-13] MEDS: CEFEPIME HCL 1 GM in D5W MINI-BAG PLUS 50 ML IV ×2 (06:41→18:10)
[2018-04-13] MEDS: TIOTROPIUM INHALER/CAPSULE (SPIRIVA) INH (07:26)
[2018-04-13] MEDS: SYMBICORT 160/4.5MCG INHALER 6GM INH ×2 (07:26→19:34)
[2018-04-13] MEDS: HumaLOG INSULIN (NovoLOG) PER UNIT SC ×4 (07:30→21:05)
[2018-04-13] MEDS: amLODIPine 10 MG TAB PO (09:05)
[2018-04-13] MEDS: BISOPROLOL FUMARATE 10 MG TAB PO (09:05)
[2018-04-13] MEDS: FAMOTIDINE 20 MG TAB PO (09:05)
[2018-04-13] MEDS: VITAMIN D 1,000 INTERNATIONAL UNITS TABLET PO (09:05)
[2018-04-13] MEDS: predniSONE 20 MG TAB PO (09:05)
[2018-04-13] MEDS: PANTOPRAZOLE 40MG TAB (PROTONIX) PO (09:06)
[2018-04-13] MEDS: FERROUS SULFATE 325MG TAB PO (09:06)
[2018-04-13] MEDS: DULoxetine 30 MG CAP (CYMBALTA) PO (09:06)
[2018-04-13] MEDS: ASPIRIN 81 MG ENTERIC TAB PO (09:06)
[2018-04-13 11:49] LABS: BEDSIDE GLUCOSE 259 MG/DL (80-115)
[2018-04-13] MEDS: AZITHROMYCIN INJ 500 MG, VIAL MATE ADAPTER 1 EACH in D5W 250 ML IV (16:09)
[2018-04-13 16:58] LABS: BEDSIDE GLUCOSE 410 MG/DL (80-115)
[2018-04-13 20:38] LABS: BEDSIDE GLUCOSE 440 MG/DL (80-115)
[2018-04-13] MEDS: LEVEMIR (INSULIN DETEMIR) 1 UNITS/0.01ML SC (21:05)
[2018-04-13] MEDS: ATORVASTATIN 20 MG TAB PO (21:06)
[2018-04-14] MEDS: IPRATROPIUM 0.5MG/ALBUTEROL 2.5MG INH SOL UD 3ML (DUONEB)(J7620) NEB ×4 (02:00→20:00)
[2018-04-14] MEDS: HEPARIN SOD (PORCINE) 5000 UNITS/ML VIAL SC ×3 (05:55→21:05)
[2018-04-14] MEDS: CEFEPIME HCL 1 GM in D5W MINI-BAG PLUS 50 ML IV ×2 (05:55→18:13)
[2018-04-14 06:24] LABS: HEMATOCRIT 27.1 % (36.0-47.0); HEMOGLOBIN 8.6 g/dl (12.0-15.5); MEAN CORPUSCULAR HGB CONC 31.7 g/dl (32.0-36.5); PLATELET COUNT, AUTOMATED 267 10^3/uL (150-450); RED BLOOD COUNT 3.19 10^6/uL (4.00-5.40); RED CELL DISTRIBUTION WIDTH 12.6 % (11.5-14.5)
[2018-04-14 06:36] LABS: ANION GAP 7 MEQ/L (8-16); BLOOD UREA NITROGEN 56 MG/DL (7-18); CALCIUM LEVEL 8.1 MG/DL (8.8-10.2); CARBON DIOXIDE LEVEL 26 MEQ/L (21-32); CHLORIDE LEVEL 112 MEQ/L (98-107); CREATININE FOR GFR 1.62 MG/DL (0.55-1.30); GLOMERULAR FILTRATION RATE 34.3 (>45); GLUCOSE, FASTING 118 MG/DL (70-100); POTASSIUM SERUM 4.1 MEQ/L (3.5-5.1); SODIUM LEVEL 145 MEQ/L (136-145)
[2018-04-14] MEDS: TIOTROPIUM INHALER/CAPSULE (SPIRIVA) INH (08:04)
[2018-04-14] MEDS: SYMBICORT 160/4.5MCG INHALER 6GM INH ×2 (08:04→20:45)
[2018-04-14] MEDS: VITAMIN D 1,000 INTERNATIONAL UNITS TABLET PO (08:43)
[2018-04-14] MEDS: FAMOTIDINE 20 MG TAB PO (08:43)
[2018-04-14] MEDS: HumaLOG INSULIN (NovoLOG) PER UNIT SC ×4 (08:43→21:06)
[2018-04-14] MEDS: ASPIRIN 81 MG ENTERIC TAB PO (08:43)
[2018-04-14] MEDS: predniSONE 20 MG TAB PO (08:43)
[2018-04-14] MEDS: BISOPROLOL FUMARATE 10 MG TAB PO (08:45)
[2018-04-14] MEDS: FERROUS SULFATE 325MG TAB PO (08:45)
[2018-04-14] MEDS: amLODIPine 10 MG TAB PO (08:45)
[2018-04-14] MEDS: DULoxetine 30 MG CAP (CYMBALTA) PO (08:45)
[2018-04-14 11:47] LABS: BEDSIDE GLUCOSE 164 MG/DL (80-115)
[2018-04-14] MEDS: ACETAMINOPHEN TAB 650MG DOSE (2X325MG) PO (14:01)
[2018-04-14] MEDS: AZITHROMYCIN INJ 500 MG, VIAL MATE ADAPTER 1 EACH in D5W 250 ML IV (15:58)
[2018-04-14 16:35] LABS: BEDSIDE GLUCOSE 427 MG/DL (80-115)
[2018-04-14 20:43] LABS: BEDSIDE GLUCOSE 425 MG/DL (80-115)
[2018-04-14] MEDS: ATORVASTATIN 20 MG TAB PO (21:06)
[2018-04-14] MEDS: LEVEMIR (INSULIN DETEMIR) 1 UNITS/0.01ML SC (21:06)
[2018-04-15] MEDS: IPRATROPIUM 0.5MG/ALBUTEROL 2.5MG INH SOL UD 3ML (DUONEB)(J7620) NEB ×4 (05:00→22:53)
[2018-04-15] MEDS: HEPARIN SOD (PORCINE) 5000 UNITS/ML VIAL SC ×3 (05:41→22:53)
[2018-04-15] MEDS: CEFEPIME HCL 1 GM in D5W MINI-BAG PLUS 50 ML IV ×2 (05:41→17:41)
[2018-04-15 06:24] LABS: HEMATOCRIT 30.1 % (36.0-47.0); HEMOGLOBIN 9.6 g/dl (12.0-15.5); MEAN CORPUSCULAR HGB CONC 31.9 g/dl (32.0-36.5); MEAN CORPUSCULAR VOLUME 84.8 fl (80.0-96.0); PLATELET COUNT, AUTOMATED 345 10^3/uL (150-450); RED BLOOD COUNT 3.55 10^6/uL (4.00-5.40); RED CELL DISTRIBUTION WIDTH 12.7 % (11.5-14.5); WHITE BLOOD COUNT 13.3 10^3/uL (4.0-10.0)
[2018-04-15 06:44] LABS: ANION GAP 9 MEQ/L (8-16); BLOOD UREA NITROGEN 53 MG/DL (7-18); CALCIUM LEVEL 7.8 MG/DL (8.8-10.2); CARBON DIOXIDE LEVEL 24 MEQ/L (21-32); CHLORIDE LEVEL 110 MEQ/L (98-107); GLOMERULAR FILTRATION RATE 37.5 (>45); GLUCOSE, FASTING 150 MG/DL (70-100); POTASSIUM SERUM 3.5 MEQ/L (3.5-5.1); SODIUM LEVEL 143 MEQ/L (136-145)
[2018-04-15] MEDS: TIOTROPIUM INHALER/CAPSULE (SPIRIVA) INH (07:18)
[2018-04-15] MEDS: SYMBICORT 160/4.5MCG INHALER 6GM INH ×2 (07:18→23:47)
[2018-04-15] MEDS: IPRATROPIUM 0.03% NASAL SPRAY 30 ML (ATROVENT) ×3 (09:00→23:48)
[2018-04-15] MEDS: HumaLOG INSULIN (NovoLOG) PER UNIT SC ×5 (09:12→22:53)
[2018-04-15] MEDS: ASPIRIN 81 MG ENTERIC TAB PO (10:19)
[2018-04-15] MEDS: predniSONE 20 MG TAB PO (10:20)
[2018-04-15] MEDS: FAMOTIDINE 20 MG TAB PO (10:20)
[2018-04-15] MEDS: BISOPROLOL FUMARATE 10 MG TAB PO (10:21)
[2018-04-15] MEDS: DULoxetine 30 MG CAP (CYMBALTA) PO (10:22)
[2018-04-15] MEDS: FERROUS SULFATE 325MG TAB PO (10:22)
[2018-04-15] MEDS: VITAMIN D 1,000 INTERNATIONAL UNITS TABLET PO (10:23)
[2018-04-15] MEDS: amLODIPine 10 MG TAB PO (10:23)
[2018-04-15 11:31] LABS: BEDSIDE GLUCOSE 127 MG/DL (80-115)
[2018-04-15] MEDS: AZITHROMYCIN INJ 500 MG, VIAL MATE ADAPTER 1 EACH in D5W 250 ML IV (16:20)
[2018-04-15 17:07] LABS: BEDSIDE GLUCOSE 460 MG/DL (80-115)
[2018-04-15 21:15] LABS: BEDSIDE GLUCOSE 565 MG/DL (80-115)
[2018-04-15 22:00] LABS: BEDSIDE GLUCOSE 519 MG/DL (80-115)
[2018-04-15 22:36] LABS: BEDSIDE GLUCOSE CONFIRMATION 535 MG/DL (LESS THAN 200)
[2018-04-15] MEDS: ATORVASTATIN 20 MG TAB PO (22:53)
[2018-04-15] MEDS: LEVEMIR (INSULIN DETEMIR) 1 UNITS/0.01ML SC (22:54)
[2018-04-16 00:56] LABS: BEDSIDE GLUCOSE 439 MG/DL (80-115)
[2018-04-16] MEDS: IPRATROPIUM 0.5MG/ALBUTEROL 2.5MG INH SOL UD 3ML (DUONEB)(J7620) NEB ×4 (01:40→20:00)
[2018-04-16 02:19] LABS: BEDSIDE GLUCOSE 357 MG/DL (80-115)
[2018-04-16] MEDS: CEFEPIME HCL 1 GM in D5W MINI-BAG PLUS 50 ML IV ×2 (05:33→18:23)
[2018-04-16] MEDS: HEPARIN SOD (PORCINE) 5000 UNITS/ML VIAL SC ×3 (05:33→20:19)
[2018-04-16 06:28] LABS: HEMATOCRIT 27.6 % (36.0-47.0); HEMOGLOBIN 8.8 g/dl (12.0-15.5); MEAN CORPUSCULAR HEMOGLOBIN 26.8 pg (27.0-33.0); MEAN CORPUSCULAR HGB CONC 31.9 g/dl (32.0-36.5); MEAN CORPUSCULAR VOLUME 84.1 fl (80.0-96.0); PLATELET COUNT, AUTOMATED 273 10^3/uL (150-450); RED BLOOD COUNT 3.28 10^6/uL (4.00-5.40); RED CELL DISTRIBUTION WIDTH 12.4 % (11.5-14.5); WHITE BLOOD COUNT 13.4 10^3/uL (4.0-10.0)
[2018-04-16 06:42] LABS: ANION GAP 9 MEQ/L (8-16); BLOOD UREA NITROGEN 46 MG/DL (7-18); CARBON DIOXIDE LEVEL 24 MEQ/L (21-32); CHLORIDE LEVEL 110 MEQ/L (98-107); GLOMERULAR FILTRATION RATE 40.6 (>45); GLUCOSE, FASTING 282 MG/DL (70-100); POTASSIUM SERUM 3.6 MEQ/L (3.5-5.1); SODIUM LEVEL 143 MEQ/L (136-145)
[2018-04-16] MEDS: SYMBICORT 160/4.5MCG INHALER 6GM INH ×2 (07:43→20:22)
[2018-04-16] MEDS: TIOTROPIUM INHALER/CAPSULE (SPIRIVA) INH (07:43)
[2018-04-16] MEDS: BISOPROLOL FUMARATE 10 MG TAB PO (08:20)
[2018-04-16] MEDS: HumaLOG INSULIN (NovoLOG) PER UNIT SC ×4 (08:20→20:19)
[2018-04-16] MEDS: VITAMIN D 1,000 INTERNATIONAL UNITS TABLET PO (08:21)
[2018-04-16] MEDS: FERROUS SULFATE 325MG TAB PO (08:21)
[2018-04-16] MEDS: IPRATROPIUM 0.03% NASAL SPRAY 30 ML (ATROVENT) ×3 (08:21→20:20)
[2018-04-16] MEDS: predniSONE 20 MG TAB PO (08:21)
[2018-04-16] MEDS: FAMOTIDINE 20 MG TAB PO (08:21)
[2018-04-16] MEDS: DULoxetine 30 MG CAP (CYMBALTA) PO (08:21)
[2018-04-16] MEDS: ASPIRIN 81 MG ENTERIC TAB PO (08:21)
[2018-04-16] MEDS: amLODIPine 10 MG TAB PO (08:21)
[2018-04-16 11:46] LABS: BEDSIDE GLUCOSE 248 MG/DL (80-115)
[2018-04-16] MEDS: AZITHROMYCIN INJ 500 MG, VIAL MATE ADAPTER 1 EACH in D5W 250 ML IV (15:21)
[2018-04-16 16:48] LABS: BEDSIDE GLUCOSE 398 MG/DL (80-115)
[2018-04-16 19:57] LABS: BEDSIDE GLUCOSE 417 MG/DL (80-115)
[2018-04-16] MEDS: ATORVASTATIN 20 MG TAB PO (20:20)
[2018-04-16] MEDS: LEVEMIR (INSULIN DETEMIR) 1 UNITS/0.01ML SC (20:20)
[2018-04-17] MEDS: IPRATROPIUM 0.5MG/ALBUTEROL 2.5MG INH SOL UD 3ML (DUONEB)(J7620) NEB ×4 (02:00→20:00)
[2018-04-17] MEDS: HEPARIN SOD (PORCINE) 5000 UNITS/ML VIAL SC ×3 (05:24→21:11)
[2018-04-17] MEDS: CEFEPIME HCL 1 GM in D5W MINI-BAG PLUS 50 ML IV ×2 (05:25→17:38)
[2018-04-17] MEDS: amLODIPine 10 MG TAB PO (06:19)
[2018-04-17] MEDS: BISOPROLOL FUMARATE 10 MG TAB PO (06:20)
[2018-04-17 06:53] LABS: ANION GAP 8 MEQ/L (8-16); BLOOD UREA NITROGEN 43 MG/DL (7-18); CARBON DIOXIDE LEVEL 26 MEQ/L (21-32); CHLORIDE LEVEL 111 MEQ/L (98-107); CREATININE FOR GFR 1.23 MG/DL (0.55-1.30); GLOMERULAR FILTRATION RATE 47.1 (>45); GLUCOSE, FASTING 123 MG/DL (70-100); POTASSIUM SERUM 3.3 MEQ/L (3.5-5.1); SODIUM LEVEL 145 MEQ/L (136-145)
[2018-04-17 06:54] LABS: HEMATOCRIT 27.9 % (36.0-47.0); HEMOGLOBIN 9.1 g/dl (12.0-15.5); MEAN CORPUSCULAR HGB CONC 32.6 g/dl (32.0-36.5); MEAN CORPUSCULAR VOLUME 82.8 fl (80.0-96.0); PLATELET COUNT, AUTOMATED 304 10^3/uL (150-450); RED BLOOD COUNT 3.37 10^6/uL (4.00-5.40); RED CELL DISTRIBUTION WIDTH 12.7 % (11.5-14.5); WHITE BLOOD COUNT 15.7 10^3/uL (4.0-10.0)
[2018-04-17] MEDS: ASPIRIN 81 MG ENTERIC TAB PO (08:13)
[2018-04-17] MEDS: VITAMIN D 1,000 INTERNATIONAL UNITS TABLET PO (08:13)
[2018-04-17] MEDS: predniSONE 20 MG TAB PO (08:13)
[2018-04-17] MEDS: FERROUS SULFATE 325MG TAB PO (08:13)
[2018-04-17] MEDS: FAMOTIDINE 20 MG TAB PO (08:13)
[2018-04-17] MEDS: DULoxetine 30 MG CAP (CYMBALTA) PO (08:13)
[2018-04-17] MEDS: HumaLOG INSULIN (NovoLOG) PER UNIT SC ×4 (08:14→21:13)
[2018-04-17] MEDS: IPRATROPIUM 0.03% NASAL SPRAY 30 ML (ATROVENT) ×3 (08:15→21:00)
[2018-04-17] MEDS: ACETAMINOPHEN TAB 650MG DOSE (2X325MG) PO (08:28)
[2018-04-17] MEDS: SYMBICORT 160/4.5MCG INHALER 6GM INH ×2 (11:35→20:32)
[2018-04-17] MEDS: TIOTROPIUM INHALER/CAPSULE (SPIRIVA) INH (11:35)
[2018-04-17 11:48] LABS: BEDSIDE GLUCOSE 199 MG/DL (80-115)
[2018-04-17] MEDS: POTASSIUM CHLORIDE 10 MEQ SR TABLET PO (13:10)
[2018-04-17] MEDS: LISINOPRIL 20 MG TAB PO (13:18)
[2018-04-17] MEDS: AZITHROMYCIN INJ 500 MG, VIAL MATE ADAPTER 1 EACH in D5W 250 ML IV (15:57)
[2018-04-17 16:52] LABS: BEDSIDE GLUCOSE 408 MG/DL (80-115)
[2018-04-17 20:31] LABS: BEDSIDE GLUCOSE 388 MG/DL (80-115)
[2018-04-17] MEDS: ATORVASTATIN 20 MG TAB PO (21:12)
[2018-04-17] MEDS: LEVEMIR (INSULIN DETEMIR) 1 UNITS/0.01ML SC (21:12)
[2018-04-18] MEDS: IPRATROPIUM 0.5MG/ALBUTEROL 2.5MG INH SOL UD 3ML (DUONEB)(J7620) NEB ×4 (01:29→19:51)
[2018-04-18] MEDS: CEFEPIME HCL 1 GM in D5W MINI-BAG PLUS 50 ML IV ×2 (06:08→18:38)
[2018-04-18] MEDS: HEPARIN SOD (PORCINE) 5000 UNITS/ML VIAL SC ×3 (06:08→22:12)
[2018-04-18 06:10] LABS: HEMATOCRIT 28.2 % (36.0-47.0); MEAN CORPUSCULAR HEMOGLOBIN 27.2 pg (27.0-33.0); MEAN CORPUSCULAR HGB CONC 31.9 g/dl (32.0-36.5); MEAN CORPUSCULAR VOLUME 85.2 fl (80.0-96.0); PLATELET COUNT, AUTOMATED 261 10^3/uL (150-450); RED BLOOD COUNT 3.31 10^6/uL (4.00-5.40); WHITE BLOOD COUNT 14.1 10^3/uL (4.0-10.0)
[2018-04-18 06:22] LABS: ANION GAP 9 MEQ/L (8-16); BLOOD UREA NITROGEN 49 MG/DL (7-18); CALCIUM LEVEL 7.9 MG/DL (8.8-10.2); CARBON DIOXIDE LEVEL 23 MEQ/L (21-32); CHLORIDE LEVEL 112 MEQ/L (98-107); CREATININE FOR GFR 1.33 MG/DL (0.55-1.30); GLUCOSE, FASTING 286 MG/DL (70-100); MAGNESIUM LEVEL 2.1 MG/DL (1.8-2.4); POTASSIUM SERUM 3.7 MEQ/L (3.5-5.1); SODIUM LEVEL 144 MEQ/L (136-145)
[2018-04-18] MEDS: TIOTROPIUM INHALER/CAPSULE (SPIRIVA) INH (07:41)
[2018-04-18] MEDS: SYMBICORT 160/4.5MCG INHALER 6GM INH ×2 (07:41→19:50)
[2018-04-18] MEDS: POTASSIUM CHLORIDE 10 MEQ SR TABLET PO (08:20)
[2018-04-18] MEDS: DULoxetine 30 MG CAP (CYMBALTA) PO (08:20)
[2018-04-18] MEDS: FAMOTIDINE 20 MG TAB PO (08:20)
[2018-04-18] MEDS: predniSONE 10 MG TAB PO (08:20)
[2018-04-18] MEDS: ASPIRIN 81 MG ENTERIC TAB PO (08:20)
[2018-04-18] MEDS: VITAMIN D 1,000 INTERNATIONAL UNITS TABLET PO (08:20)
[2018-04-18] MEDS: FERROUS SULFATE 325MG TAB PO (08:20)
[2018-04-18] MEDS: HumaLOG INSULIN (NovoLOG) PER UNIT SC ×4 (08:21→22:14)
[2018-04-18] MEDS: LISINOPRIL 20 MG TAB PO (08:22)
[2018-04-18] MEDS: amLODIPine 10 MG TAB PO (08:22)
[2018-04-18] MEDS: BISOPROLOL FUMARATE 10 MG TAB PO (08:22)
[2018-04-18] MEDS: IPRATROPIUM 0.03% NASAL SPRAY 30 ML (ATROVENT) ×4 (08:23→22:13)
[2018-04-18 11:38] LABS: BEDSIDE GLUCOSE 183 MG/DL (80-115)
[2018-04-18 16:42] LABS: BEDSIDE GLUCOSE 316 MG/DL (80-115)
[2018-04-18] MEDS: AZITHROMYCIN INJ 500 MG, VIAL MATE ADAPTER 1 EACH in D5W 250 ML IV (16:59)
[2018-04-18 21:57] LABS: BEDSIDE GLUCOSE 386 MG/DL (80-115)
[2018-04-18] MEDS: BENZONATATE 100 MG CAP PO (22:12)
[2018-04-18] MEDS: guaiFENesin 200 MG TAB PO (22:12)
[2018-04-18] MEDS: MONTELUKAST 10 MG TAB PO (22:13)
[2018-04-18] MEDS: ATORVASTATIN 20 MG TAB PO (22:13)
[2018-04-18] MEDS: LEVEMIR (INSULIN DETEMIR) 1 UNITS/0.01ML SC (22:14)
[2018-04-18] MEDS: CEFDINIR 300 MG CAP (OMNICEF) PO (23:14)
[2018-04-19] MEDS: IPRATROPIUM 0.5MG/ALBUTEROL 2.5MG INH SOL UD 3ML (DUONEB)(J7620) NEB ×5 (02:00→18:33)
[2018-04-19] MEDS: HEPARIN SOD (PORCINE) 5000 UNITS/ML VIAL SC ×3 (06:21→20:12)
[2018-04-19 06:43] LABS: HEMATOCRIT 29.1 % (36.0-47.0); HEMOGLOBIN 9.3 g/dl (12.0-15.5); MEAN CORPUSCULAR VOLUME 84.6 fl (80.0-96.0); PLATELET COUNT, AUTOMATED 256 10^3/uL (150-450); RED BLOOD COUNT 3.44 10^6/uL (4.00-5.40); RED CELL DISTRIBUTION WIDTH 13.2 % (11.5-14.5); WHITE BLOOD COUNT 16.2 10^3/uL (4.0-10.0)
[2018-04-19 06:57] LABS: ANION GAP 7 MEQ/L (8-16); BLOOD UREA NITROGEN 44 MG/DL (7-18); CARBON DIOXIDE LEVEL 25 MEQ/L (21-32); CHLORIDE LEVEL 113 MEQ/L (98-107); CREATININE FOR GFR 1.33 MG/DL (0.55-1.30); GLUCOSE, FASTING 161 MG/DL (70-100); POTASSIUM SERUM 3.8 MEQ/L (3.5-5.1); SODIUM LEVEL 145 MEQ/L (136-145)
[2018-04-19] MEDS: IPRATROPIUM 0.03% NASAL SPRAY 30 ML (ATROVENT) ×3 (07:08→20:14)
[2018-04-19] MEDS: TIOTROPIUM INHALER/CAPSULE (SPIRIVA) INH (07:08)
[2018-04-19] MEDS: SYMBICORT 160/4.5MCG INHALER 6GM INH ×2 (07:08→18:33)
[2018-04-19] MEDS: POTASSIUM CHLORIDE 10 MEQ SR TABLET PO (08:11)
[2018-04-19] MEDS: LISINOPRIL 20 MG TAB PO (08:11)
[2018-04-19] MEDS: amLODIPine 10 MG TAB PO (08:11)
[2018-04-19] MEDS: FAMOTIDINE 20 MG TAB PO (08:11)
[2018-04-19] MEDS: DULoxetine 30 MG CAP (CYMBALTA) PO (08:11)
[2018-04-19] MEDS: ASPIRIN 81 MG ENTERIC TAB PO (08:11)
[2018-04-19] MEDS: CEFDINIR 300 MG CAP (OMNICEF) PO ×2 (08:11→20:13)
[2018-04-19] MEDS: predniSONE 10 MG TAB PO (08:11)
[2018-04-19] MEDS: VITAMIN D 1,000 INTERNATIONAL UNITS TABLET PO (08:11)
[2018-04-19] MEDS: BISOPROLOL FUMARATE 10 MG TAB PO (08:12)
[2018-04-19] MEDS: FERROUS SULFATE 325MG TAB PO (08:12)
[2018-04-19] MEDS: HumaLOG INSULIN (NovoLOG) PER UNIT SC ×4 (08:12→20:13)
[2018-04-19 11:30] LABS: BEDSIDE GLUCOSE 133 MG/DL (80-115)
[2018-04-19 16:32] LABS: BEDSIDE GLUCOSE 373 MG/DL (80-115)
[2018-04-19 20:03] LABS: BEDSIDE GLUCOSE 404 MG/DL (80-115)
[2018-04-19] MEDS: LEVEMIR (INSULIN DETEMIR) 1 UNITS/0.01ML SC (20:12)
[2018-04-19] MEDS: MONTELUKAST 10 MG TAB PO (20:13)
[2018-04-19] MEDS: ATORVASTATIN 20 MG TAB PO (20:13)
[2018-04-20 00:06] LABS: BODY FLUID CULTURE Not Indicated (.); LEGIONELLA ANTIGEN URINE Negative (Negative); ORGANISM ID Not indicated. (.); SPECIMEN SOURCE Urine (.); URINE STREP PNEUMONIAE ANTIGEN Negative (Negative)
[2018-04-20] MEDS: IPRATROPIUM 0.5MG/ALBUTEROL 2.5MG INH SOL UD 3ML (DUONEB)(J7620) NEB ×4 (01:27→20:00)
[2018-04-20] MEDS: HEPARIN SOD (PORCINE) 5000 UNITS/ML VIAL SC ×4 (05:13→21:49)
[2018-04-20 06:08] LABS: BASO # 0.1 10^3/uL (0.0-0.2); BASO % 0.3 % (0.0-1.0); EOS # 0.1 10^3/uL (0.0-0.50); EOS % 0.8 % (0.0-3.0); HEMATOCRIT 30.5 % (36.0-47.0); HEMOGLOBIN 9.7 g/dl (12.0-15.5); IMMATURE GRANULOCYTE % 4.5 % (0-3.0); LYMPH # 2.5 10^3/uL (1.5-4.5); LYMPH % 13.4 % (24.0-44.0); MEAN CORPUSCULAR HEMOGLOBIN 27.6 pg (27.0-33.0); MEAN CORPUSCULAR HGB CONC 31.8 g/dl (32.0-36.5); MEAN CORPUSCULAR VOLUME 86.6 fl (80.0-96.0); MONO # 1.4 10^3/uL (0.0-0.8); MONO % 7.7 % (0.0-5.0); NEUTROPHILS # 13.7 10^3/uL (1.8-7.7); NEUTROPHILS % 73.3 % (36.0-66.0); PLATELET COUNT, AUTOMATED 288 10^3/uL (150-450); RED BLOOD COUNT 3.52 10^6/uL (4.00-5.40); RED CELL DISTRIBUTION WIDTH 13.3 % (11.5-14.5); WHITE BLOOD COUNT 18.6 10^3/uL (4.0-10.0)
[2018-04-20 06:18] LABS: ANION GAP 8 MEQ/L (8-16); BLOOD UREA NITROGEN 48 MG/DL (7-18); C REACTIVE PROTEIN QUANTITATIV < 0.30 MG/DL (0.00-0.30); CALCIUM LEVEL 8.1 MG/DL (8.8-10.2); CARBON DIOXIDE LEVEL 22 MEQ/L (21-32); CHLORIDE LEVEL 113 MEQ/L (98-107); GLOMERULAR FILTRATION RATE 48.5 (>45); GLUCOSE, FASTING 143 MG/DL (70-100); POTASSIUM SERUM 3.8 MEQ/L (3.5-5.1); SODIUM LEVEL 143 MEQ/L (136-145)
[2018-04-20] MEDS: SYMBICORT 160/4.5MCG INHALER 6GM INH ×2 (08:06→20:40)
[2018-04-20] MEDS: TIOTROPIUM INHALER/CAPSULE (SPIRIVA) INH (08:06)
[2018-04-20] MEDS: HumaLOG INSULIN (NovoLOG) PER UNIT SC ×5 (09:55→21:50)
[2018-04-20] MEDS: CEFDINIR 300 MG CAP (OMNICEF) PO ×2 (10:38→21:50)
[2018-04-20] MEDS: BISOPROLOL FUMARATE 10 MG TAB PO (10:41)
[2018-04-20] MEDS: predniSONE 10 MG TAB PO (10:42)
[2018-04-20] MEDS: VITAMIN D 1,000 INTERNATIONAL UNITS TABLET PO (10:42)
[2018-04-20] MEDS: FAMOTIDINE 20 MG TAB PO (10:42)
[2018-04-20] MEDS: POTASSIUM CHLORIDE 10 MEQ SR TABLET PO (10:42)
[2018-04-20] MEDS: DULoxetine 30 MG CAP (CYMBALTA) PO (10:42)
[2018-04-20] MEDS: FERROUS SULFATE 325MG TAB PO (10:43)
[2018-04-20] MEDS: LISINOPRIL 20 MG TAB PO (10:43)
[2018-04-20] MEDS: ASPIRIN 81 MG ENTERIC TAB PO (10:43)
[2018-04-20] MEDS: amLODIPine 10 MG TAB PO (10:43)
[2018-04-20] MEDS: IPRATROPIUM 0.03% NASAL SPRAY 30 ML (ATROVENT) ×3 (10:44→21:00)
[2018-04-20 11:48] LABS: BEDSIDE GLUCOSE 186 MG/DL (80-115)
[2018-04-20 16:34] LABS: BEDSIDE GLUCOSE 384 MG/DL (80-115)
[2018-04-20 20:48] LABS: BEDSIDE GLUCOSE 502 MG/DL (80-115)
[2018-04-20 21:29] LABS: BEDSIDE GLUCOSE CONFIRMATION 495 MG/DL (LESS THAN 200)
[2018-04-20] MEDS: LEVEMIR (INSULIN DETEMIR) 1 UNITS/0.01ML SC (21:50)
[2018-04-20] MEDS: ATORVASTATIN 20 MG TAB PO (21:50)
[2018-04-20] MEDS: MONTELUKAST 10 MG TAB PO (21:51)
[2018-04-20 23:57] LABS: BEDSIDE GLUCOSE 356 MG/DL (80-115)
[2018-04-21] MEDS: HumaLOG INSULIN (NovoLOG) PER UNIT SC ×3 (00:17→13:14)
[2018-04-21] MEDS: IPRATROPIUM 0.5MG/ALBUTEROL 2.5MG INH SOL UD 3ML (DUONEB)(J7620) NEB ×3 (02:00→14:00)
[2018-04-21 02:26] LABS: BEDSIDE GLUCOSE 199 MG/DL (80-115)
[2018-04-21] MEDS: HEPARIN SOD (PORCINE) 5000 UNITS/ML VIAL SC (05:19)
[2018-04-21 06:14] LABS: BEDSIDE GLUCOSE 41 MG/DL (80-115)
[2018-04-21 06:37] LABS: BEDSIDE GLUCOSE 86 MG/DL (80-115)
[2018-04-21 06:42] LABS: BEDSIDE GLUCOSE CONFIRMATION 76 MG/DL (LESS THAN 200)
[2018-04-21] MEDS: TIOTROPIUM INHALER/CAPSULE (SPIRIVA) INH (08:03)
[2018-04-21] MEDS: SYMBICORT 160/4.5MCG INHALER 6GM INH (08:03)
[2018-04-21] MEDS: amLODIPine 10 MG TAB PO (08:38)
[2018-04-21] MEDS: FAMOTIDINE 20 MG TAB PO (08:38)
[2018-04-21] MEDS: BISOPROLOL FUMARATE 10 MG TAB PO (08:38)
[2018-04-21] MEDS: CEFDINIR 300 MG CAP (OMNICEF) PO (08:38)
[2018-04-21] MEDS: DULoxetine 30 MG CAP (CYMBALTA) PO (08:38)
[2018-04-21] MEDS: VITAMIN D 1,000 INTERNATIONAL UNITS TABLET PO (08:38)
[2018-04-21] MEDS: LISINOPRIL 20 MG TAB PO (08:38)
[2018-04-21] MEDS: POTASSIUM CHLORIDE 10 MEQ SR TABLET PO (08:38)
[2018-04-21] MEDS: predniSONE 20 MG TAB PO (08:38)
[2018-04-21] MEDS: FERROUS SULFATE 325MG TAB PO (08:39)
[2018-04-21] MEDS: ASPIRIN 81 MG ENTERIC TAB PO (08:39)
[2018-04-21] MEDS: IPRATROPIUM 0.03% NASAL SPRAY 30 ML (ATROVENT) (08:39)
[2018-04-21 11:25] LABS: BEDSIDE GLUCOSE 212 MG/DL (80-115)
[2018-04-21] MEDS: PNEUMOCOCCAL VACCINE 0.5ML SYRINGE(90732) PNEUMOVAX 23 IM (13:15)
== END 2018-04-21 14:43 | disposition home health service (06) | DRG 178 ==
LOC: M MSPAV 04-14 02:19 → M ED 21:03 → M ED INP 04-12 03:37 → M MSPAV 04-12 13:43
DX: J15.6 Pneumonia due to other Gram-negative bacteria (principal); N17.9 Acute kidney failure, unspecified; J44.1 Chronic obstructive pulmonary disease with (acute) exacerbation; I50.32 Chronic diastolic (congestive) heart failure; I13.0 Hypertensive heart and chronic kidney disease with heart failure and stage 1 through stage 4 chronic kidney disease, or unspecified chronic kidney disease; J44.0 Chronic obstructive pulmonary disease with (acute) lower respiratory infection; E78.5 Hyperlipidemia, unspecified; T38.0X5A Adverse effect of glucocorticoids and synthetic analogues, initial encounter; D63.1 Anemia in chronic kidney disease; F39 Unspecified mood [affective] disorder; E11.22 Type 2 diabetes mellitus with diabetic chronic kidney disease; K21.9 Gastro-esophageal reflux disease without esophagitis; E11.65 Type 2 diabetes mellitus with hyperglycemia; J45.909 Unspecified asthma, uncomplicated; N18.9 Chronic kidney disease, unspecified; I27.20 Pulmonary hypertension, unspecified; Z98.49 Cataract extraction status, unspecified eye; Z98.1 Arthrodesis status; Z79.51 Long term (current) use of inhaled steroids; Z79.82 Long term (current) use of aspirin; Z79.4 Long term (current) use of insulin; Z79.899 Other long term (current) drug therapy; Z88.0 Allergy status to penicillin; Z88.1 Allergy status to other antibiotic agents; Z87.891 Personal history of nicotine dependence

== ENCOUNTER → 2018-04-24 | Outpatient (REF) | payer MEDICARE ==
[2018-04-24 13:34] LABS: BASO % 0.2 % (0.0-1.0); EOS % 0.2 % (0.0-3.0); HEMATOCRIT 36.5 % (36.0-47.0); HEMOGLOBIN 11.7 g/dl (12.0-15.5); IMMATURE GRANULOCYTE % 1.1 % (0-3.0); LYMPH # 1.5 10^3/uL (1.5-4.5); LYMPH % 7.5 % (24.0-44.0); MEAN CORPUSCULAR HEMOGLOBIN 27.7 pg (27.0-33.0); MEAN CORPUSCULAR HGB CONC 32.1 g/dl (32.0-36.5); MEAN CORPUSCULAR VOLUME 86.5 fl (80.0-96.0); MONO # 0.9 10^3/uL (0.0-0.8); MONO % 4.8 % (0.0-5.0); NEUTROPHILS # 16.6 10^3/uL (1.8-7.7); NEUTROPHILS % 86.2 % (36.0-66.0); PLATELET COUNT, AUTOMATED 312 10^3/uL (150-450); RED BLOOD COUNT 4.22 10^6/uL (4.00-5.40); RED CELL DISTRIBUTION WIDTH 13.5 % (11.5-14.5); WHITE BLOOD COUNT 19.3 10^3/uL (4.0-10.0)
[2018-04-24 13:59] LABS: ALBUMIN 3.1 GM/DL (3.2-5.2); ALKALINE PHOSPHATASE 73 U/L (45-117); ALT/SGPT 47 U/L (12-78); ANION GAP 10 MEQ/L (8-16); AST/SGOT 10 U/L (7-37); BILIRUBIN,TOTAL 0.4 MG/DL (0.2-1.0); BLOOD UREA NITROGEN 44 MG/DL (7-18); CALCIUM LEVEL 8.4 MG/DL (8.8-10.2); CARBON DIOXIDE LEVEL 27 MEQ/L (21-32); CHLORIDE LEVEL 107 MEQ/L (98-107); CREATININE FOR GFR 1.35 MG/DL (0.55-1.30); GLOMERULAR FILTRATION RATE 42.3 (>45); GLUCOSE, FASTING 268 MG/DL (70-100); POTASSIUM SERUM 4.2 MEQ/L (3.5-5.1); SODIUM LEVEL 144 MEQ/L (136-145); TOTAL PROTEIN 6.2 GM/DL (6.4-8.2)
== END ==
LOC: M SFHCPLAZ 11:13
DX: J18.9 Pneumonia, unspecified organism (principal); N17.9 Acute kidney failure, unspecified
CPT/HCPCS: 80053

== ENCOUNTER → 2018-05-06 | Outpatient (REF) | payer MEDICARE ==
[2018-05-06 15:47] LABS: BASO % 0.5 % (0.0-1.0); EOS # 0.3 10^3/uL (0.0-0.50); EOS % 3.8 % (0.0-3.0); HEMATOCRIT 33.4 % (36.0-47.0); HEMOGLOBIN 10.7 g/dl (12.0-15.5); IMMATURE GRANULOCYTE % 1.1 % (0-3.0); LYMPH # 1.7 10^3/uL (1.5-4.5); LYMPH % 20.6 % (24.0-44.0); MEAN CORPUSCULAR HEMOGLOBIN 27.2 pg (27.0-33.0); MONO # 0.4 10^3/uL (0.0-0.8); MONO % 5.1 % (0.0-5.0); NEUTROPHILS # 5.8 10^3/uL (1.8-7.7); NEUTROPHILS % 68.9 % (36.0-66.0); PLATELET COUNT, AUTOMATED 243 10^3/uL (150-450); RED BLOOD COUNT 3.93 10^6/uL (4.00-5.40); RED CELL DISTRIBUTION WIDTH 13.3 % (11.5-14.5); WHITE BLOOD COUNT 8.4 10^3/uL (4.0-10.0)
[2018-05-06 15:50] LABS: ALBUMIN 3.1 GM/DL (3.2-5.2); ALBUMIN/GLOBULIN RATIO 1.03 (1.00-1.93); ALKALINE PHOSPHATASE 61 U/L (45-117); ALT/SGPT 24 U/L (12-78); ANION GAP 9 MEQ/L (8-16); AST/SGOT 10 U/L (7-37); BILIRUBIN,TOTAL 0.3 MG/DL (0.2-1.0); BLOOD UREA NITROGEN 46 MG/DL (7-18); CALCIUM LEVEL 8.7 MG/DL (8.8-10.2); CARBON DIOXIDE LEVEL 26 MEQ/L (21-32); CHLORIDE LEVEL 111 MEQ/L (98-107); CREATININE FOR GFR 1.51 MG/DL (0.55-1.30); GLOMERULAR FILTRATION RATE 37.2 (>45); GLUCOSE, FASTING 137 MG/DL (70-100); SODIUM LEVEL 146 MEQ/L (136-145); TOTAL PROTEIN 6.1 GM/DL (6.4-8.2)
[2018-05-06 15:55] LABS: ESTIMATED AVERAGE GLUCOSE 240 MG/DL (60-110)
== END ==
LOC: M SFHCPLAZ 12:00
DX: E11.22 Type 2 diabetes mellitus with diabetic chronic kidney disease (principal); N18.3 Chronic kidney disease, stage 3 (moderate); J18.9 Pneumonia, unspecified organism
CPT/HCPCS: 80053

== ENCOUNTER → 2018-05-14 | Outpatient (REF) | payer MEDICARE ==
[2018-05-16 14:16] LABS: HPV HYBRID CAPTURE II Negative (Negative)
== END ==
LOC: M SFHCWAGY 09:24
DX: Z12.4 Encounter for screening for malignant neoplasm of cervix (principal); Z12.12 Encounter for screening for malignant neoplasm of rectum
CPT/HCPCS: G0123

== ENCOUNTER 2018-05-17 16:00 | Emergency (ER) | payer MEDICARE ==
[2018-05-17 18:09] LABS: BASO # 0.1 10^3/uL (0.0-0.2); BASO % 0.5 % (0.0-1.0); EOS # 0.3 10^3/uL (0.0-0.50); EOS % 2.9 % (0.0-3.0); HEMATOCRIT 32.5 % (36.0-47.0); HEMOGLOBIN 10.7 g/dl (12.0-15.5); IMMATURE GRANULOCYTE % 0.5 % (0-3.0); LYMPH % 20.4 % (24.0-44.0); MEAN CORPUSCULAR HEMOGLOBIN 27.7 pg (27.0-33.0); MEAN CORPUSCULAR HGB CONC 32.9 g/dl (32.0-36.5); MEAN CORPUSCULAR VOLUME 84.2 fl (80.0-96.0); MONO # 0.6 10^3/uL (0.0-0.8); MONO % 5.8 % (0.0-5.0); NEUTROPHILS # 6.9 10^3/uL (1.8-7.7); NEUTROPHILS % 69.9 % (36.0-66.0); PLATELET COUNT, AUTOMATED 396 10^3/uL (150-450); RED BLOOD COUNT 3.86 10^6/uL (4.00-5.40); RED CELL DISTRIBUTION WIDTH 13.5 % (11.5-14.5); WHITE BLOOD COUNT 9.8 10^3/uL (4.0-10.0)
[2018-05-17] MEDS: IPRATROPIUM 0.5MG/ALBUTEROL 2.5MG INH SOL UD 3ML (DUONEB)(J7620) NEB ×3 (18:20→18:37)
[2018-05-17 18:38] LABS: ANION GAP 11 MEQ/L (8-16); BLOOD UREA NITROGEN 37 MG/DL (7-18); CALCIUM LEVEL 8.3 MG/DL (8.8-10.2); CARBON DIOXIDE LEVEL 23 MEQ/L (21-32); CHLORIDE LEVEL 110 MEQ/L (98-107); CK-MB VALUE MASS 2.5 NG/ML (<3.6); CPK CREATINE PHOSPHOKINASE 128 U/L (26-192); CREATININE FOR GFR 1.51 MG/DL (0.55-1.30); GLOMERULAR FILTRATION RATE 37.2 (>45); GLUCOSE, FASTING 169 MG/DL (70-100); MB/CK RELATIVE INDEX 1.95 (< OR =4); POTASSIUM SERUM 4.2 MEQ/L (3.5-5.1); SODIUM LEVEL 144 MEQ/L (136-145); TROPONIN I 0.02 NG/ML (< 0.10)
== END 2018-05-17 19:55 | disposition home or self-care (01) ==
LOC: M ED 16:00
DX: J44.1 Chronic obstructive pulmonary disease with (acute) exacerbation (principal); R91.8 Other nonspecific abnormal finding of lung field; Z87.891 Personal history of nicotine dependence; Z79.899 Other long term (current) drug therapy; Z79.4 Long term (current) use of insulin; Z79.51 Long term (current) use of inhaled steroids; Z79.82 Long term (current) use of aspirin
CPT/HCPCS: 71046

== ENCOUNTER → 2018-05-20 | Outpatient (REF) | payer MEDICARE ==
[2018-05-20 13:46] LABS: BASO # 0.1 10^3/uL (0.0-0.2); BASO % 0.5 % (0.0-1.0); EOS # 0.1 10^3/uL (0.0-0.50); EOS % 1.4 % (0.0-3.0); HEMATOCRIT 32.9 % (36.0-47.0); HEMOGLOBIN 10.6 g/dl (12.0-15.5); IMMATURE GRANULOCYTE % 0.5 % (0-3.0); LYMPH # 1.5 10^3/uL (1.5-4.5); LYMPH % 15.8 % (24.0-44.0); MEAN CORPUSCULAR HEMOGLOBIN 27.1 pg (27.0-33.0); MEAN CORPUSCULAR HGB CONC 32.2 g/dl (32.0-36.5); MEAN CORPUSCULAR VOLUME 84.1 fl (80.0-96.0); MONO # 0.5 10^3/uL (0.0-0.8); MONO % 5.2 % (0.0-5.0); NEUTROPHILS # 7.3 10^3/uL (1.8-7.7); NEUTROPHILS % 76.6 % (36.0-66.0); PLATELET COUNT, AUTOMATED 364 10^3/uL (150-450); RED BLOOD COUNT 3.91 10^6/uL (4.00-5.40); RED CELL DISTRIBUTION WIDTH 13.4 % (11.5-14.5); WHITE BLOOD COUNT 9.5 10^3/uL (4.0-10.0)
[2018-05-20 13:59] LABS: IMMUNOGLOBULIN G 519 MG/DL (681-1648); IMMUNOGLOBULIN M 47.2 MG/DL (40-230)
[2018-05-20 14:27] LABS: IMMUNOGLOBULIN E 7.8 IU/ML (<100)
[2018-05-24 08:06] LABS: D001-IgE D pteronyssinus <0.10 kU/L (Class 0); E001-IgE Cat Epith/Dander < 0.10 kU/L (Class 0); E005-IgE Dog Dander < 0.10 kU/L (Class 0); G002-IgE Bermuda Grass < 0.10 kU/L (Class 0); G008-IgE Kentucky Bluegrass < 0.10 kU/L (Class 0); M001-IgE Penicillium chrysogen < 0.10 kU/L (Class 0); M002 IgE Cladosporium herbaru < 0.10 kU/L (Class 0); M003 IgE Aspergillus fumigatu < 0.10 kU/L (Class 0); M006-IgE Alternaria alternata < 0.10 kU/L (Class 0); T001-IgE Maple/Box Elder < 0.10 kU/L (Class 0); T003-IgE Common Silver Birch < 0.10 kU/L (Class 0); T006-IgE Cedar, Mountain < 0.10 kU/L (Class 0); T007-IgE Oak, White < 0.10 kU/L (Class 0); T008-IgE Elm, American < 0.10 kU/L (Class 0); T015-IgE Ash, White < 0.10 kU/L (Class 0); T041-IgE Hickory, White < 0.10 kU/L (Class 0); T070-IgE White Mulberry < 0.10 kU/L (Class 0); W001-IgE Ragweed, Short < 0.10 kU/L (Class 0); W009-IgE Plantain, English < 0.10 kU/L (Class 0); W014-IgE Pigweed, Rough < 0.10 kU/L (Class 0); W018-IgE Sheep Sorrel < 0.10 kU/L (Class 0)
== END ==
LOC: M LAB REF 13:01
DX: J44.9 Chronic obstructive pulmonary disease, unspecified (principal); J45.901 Unspecified asthma with (acute) exacerbation
CPT/HCPCS: 82785

== ENCOUNTER 2018-06-07 20:21 | Emergency (ER) | payer MEDICARE ==
[2018-06-07 22:13] LABS: VENOUS HCO3 20.9 MEQ/L (23.0-27.0); VENOUS O2 SATURATION 98.3 % (60.0-80.0); VENOUS PARTIAL PRESSURE CO2 37.2 mmHg (38.0-50.0); VENOUS PARTIAL PRESSURE O2 117.1 mmHg (30.0-50.0); VENOUS PH 7.367 UNITS (7.330-7.430); VENOUS STANDARD HCO3 21.2 MEQ/L
[2018-06-07] MEDS: NS 1,000 ML IV (22:17)
[2018-06-07] MEDS: ACETAMINOPHEN 325 MG TAB PO (22:18)
[2018-06-07 22:41] LABS: BASO % 0.3 % (0.0-1.0); EOS # 0.3 10^3/uL (0.0-0.50); EOS % 2.6 % (0.0-3.0); IMMATURE GRANULOCYTE % 0.3 % (0-3.0); LYMPH # 1.3 10^3/uL (1.5-4.5); LYMPH % 12.8 % (24.0-44.0); MEAN CORPUSCULAR HEMOGLOBIN 26.9 pg (27.0-33.0); MEAN CORPUSCULAR HGB CONC 32.3 g/dl (32.0-36.5); MEAN CORPUSCULAR VOLUME 83.3 fl (80.0-96.0); MONO # 0.6 10^3/uL (0.0-0.8); MONO % 6.4 % (0.0-5.0); NEUTROPHILS # 7.6 10^3/uL (1.8-7.7); NEUTROPHILS % 77.6 % (36.0-66.0); PLATELET COUNT, AUTOMATED 208 10^3/uL (150-450); RED BLOOD COUNT 3.72 10^6/uL (4.00-5.40); RED CELL DISTRIBUTION WIDTH 13.2 % (11.5-14.5); WHITE BLOOD COUNT 9.8 10^3/uL (4.0-10.0)
[2018-06-07] MEDS: IPRATROPIUM 0.5MG/ALBUTEROL 2.5MG INH SOL UD 3ML (DUONEB)(J7620) NEB ×2 (22:41→22:55)
[2018-06-07 23:00] LABS: LACTIC ACID SEPSIS PROTOCOL 0.7 MMOL/L (0.4-2.0)
[2018-06-07 23:04] LABS: ANION GAP 10 MEQ/L (8-16); BLOOD UREA NITROGEN 39 MG/DL (7-18); CALCIUM LEVEL 8.4 MG/DL (8.8-10.2); CARBON DIOXIDE LEVEL 24 MEQ/L (21-32); CHLORIDE LEVEL 112 MEQ/L (98-107); CK-MB VALUE MASS 2.5 NG/ML (<3.6); CPK CREATINE PHOSPHOKINASE 160 U/L (26-192); CREATININE FOR GFR 1.51 MG/DL (0.55-1.30); GLOMERULAR FILTRATION RATE 37.2 (>45); GLUCOSE, FASTING 236 MG/DL (70-100); MB/CK RELATIVE INDEX 1.56 (< OR =4); POTASSIUM SERUM 4.3 MEQ/L (3.5-5.1); SODIUM LEVEL 146 MEQ/L (136-145); TROPONIN I 0.02 NG/ML (< 0.10)
[2018-06-07] MEDS: MOXIFLOXACIN 400 MG TAB PO (23:30)
[2018-06-07] MEDS: LABETALOL HCL 100 MG/20 ML VIAL IV (23:30)
== END 2018-06-08 00:02 | disposition home or self-care (01) ==
LOC: M ED 06-08 00:02
DX: J44.1 Chronic obstructive pulmonary disease with (acute) exacerbation (principal); J40 Bronchitis, not specified as acute or chronic; E11.9 Type 2 diabetes mellitus without complications; I10 Essential (primary) hypertension; N17.9 Acute kidney failure, unspecified; Z88.0 Allergy status to penicillin; Z88.1 Allergy status to other antibiotic agents; Z79.899 Other long term (current) drug therapy; Z79.4 Long term (current) use of insulin; Z79.51 Long term (current) use of inhaled steroids; Z79.82 Long term (current) use of aspirin
CPT/HCPCS: 93005

== ENCOUNTER → 2018-06-13 | Outpatient (REF) | payer MEDICARE ==
[2018-06-13 17:53] LABS: ANION GAP 9 MEQ/L (8-16); BLOOD UREA NITROGEN 41 MG/DL (7-18); CALCIUM LEVEL 8.5 MG/DL (8.8-10.2); CARBON DIOXIDE LEVEL 23 MEQ/L (21-32); CHLORIDE LEVEL 113 MEQ/L (98-107); CREATININE FOR GFR 1.54 MG/DL (0.55-1.30); GLOMERULAR FILTRATION RATE 36.3 (>45); GLUCOSE, FASTING 155 MG/DL (70-100); NT-PRO BNP 2990 PG/ML (<125); POTASSIUM SERUM 4.2 MEQ/L (3.5-5.1); SODIUM LEVEL 145 MEQ/L (136-145)
== END ==
LOC: M LAB REF 17:08
DX: J44.9 Chronic obstructive pulmonary disease, unspecified (principal); I51.7 Cardiomegaly
CPT/HCPCS: 80048

== ENCOUNTER → 2018-06-21 | Outpatient (CLI) | payer MEDICARE | LOC: M SLEEP HO 11:21 | DX: R40.0 Somnolence (principal) | CPT/HCPCS: G0399 ==

== ENCOUNTER → 2018-07-10 | Outpatient (REF) | payer MEDICARE ==
[2018-07-10 12:37] LABS: ALBUMIN 3.3 GM/DL (3.2-5.2); ALBUMIN/GLOBULIN RATIO 0.94 (1.00-1.93); ALKALINE PHOSPHATASE 84 U/L (45-117); ALT/SGPT 21 U/L (12-78); ANION GAP 7 MEQ/L (8-16); AST/SGOT 9 U/L (7-37); BILIRUBIN,TOTAL 0.3 MG/DL (0.2-1.0); BLOOD UREA NITROGEN 45 MG/DL (7-18); CALCIUM LEVEL 8.9 MG/DL (8.8-10.2); CARBON DIOXIDE LEVEL 27 MEQ/L (21-32); CHLORIDE LEVEL 108 MEQ/L (98-107); GLOMERULAR FILTRATION RATE 30.3 (>45); GLUCOSE, FASTING 167 MG/DL (70-100); POTASSIUM SERUM 4.1 MEQ/L (3.5-5.1); SODIUM LEVEL 142 MEQ/L (136-145); TOTAL PROTEIN 6.8 GM/DL (6.4-8.2)
== END ==
LOC: M SFHCPLAZ 09:19
DX: E11.65 Type 2 diabetes mellitus with hyperglycemia (principal); N18.3 Chronic kidney disease, stage 3 (moderate)
CPT/HCPCS: 80053

== ENCOUNTER → 2018-07-15 | Outpatient (REF) | payer MEDICARE ==
[2018-07-15 20:03] LABS: ESTIMATED AVERAGE GLUCOSE 243 MG/DL (60-110); HEMOGLOBIN A1c 10.1 %
== END ==
LOC: M SFHCPLAZ 15:38
DX: E11.65 Type 2 diabetes mellitus with hyperglycemia (principal)
CPT/HCPCS: 83036

== ENCOUNTER → 2018-08-08 | Outpatient (CLI) | payer MEDICARE | LOC: M SLEEP 19:26 | DX: G47.33 Obstructive sleep apnea (adult) (pediatric) (principal) | CPT/HCPCS: 95811 ==

== ENCOUNTER → 2018-08-16 | Outpatient (REF) | payer MEDICARE ==
[2018-08-16 12:25] LABS: BASO % 0.4 % (0.0-1.0); EOS % 0.6 % (0.0-3.0); HEMATOCRIT 35.4 % (36.0-47.0); HEMOGLOBIN 11.1 g/dl (12.0-15.5); IMMATURE GRANULOCYTE % 0.4 % (0-3.0); LYMPH # 0.5 10^3/uL (1.5-4.5); LYMPH % 10.2 % (24.0-44.0); MEAN CORPUSCULAR HEMOGLOBIN 25.8 pg (27.0-33.0); MEAN CORPUSCULAR HGB CONC 31.4 g/dl (32.0-36.5); MEAN CORPUSCULAR VOLUME 82.3 fl (80.0-96.0); MONO # 0.5 10^3/uL (0.0-0.8); MONO % 10.2 % (0.0-5.0); NEUTROPHILS # 4.1 10^3/uL (1.8-7.7); NEUTROPHILS % 78.2 % (36.0-66.0); PLATELET COUNT, AUTOMATED 300 10^3/uL (150-450); RED CELL DISTRIBUTION WIDTH 12.4 % (11.5-14.5); WHITE BLOOD COUNT 5.3 10^3/uL (4.0-10.0)
[2018-08-16 12:46] LABS: FERRITIN 88 NG/ML (8-252); IRON (FE) 34 UG/DL (50-170); PERCENT SATURATION 11.2 % (13.2-45.0); TOTAL IRON BINDING CAPACITY 304 UG/DL (250-450)
[2018-08-16 12:46] LABS: ALBUMIN 3.2 GM/DL (3.2-5.2)
[2018-08-16 13:15] LABS: ESTIMATED AVERAGE GLUCOSE 226 MG/DL (60-110); HEMOGLOBIN A1c 9.5 %
== END ==
LOC: M LABDRAWP 12:04
DX: Z01.818 Encounter for other preprocedural examination (principal); M16.11 Unilateral primary osteoarthritis, right hip; M25.559 Pain in unspecified hip; D63.8 Anemia in other chronic diseases classified elsewhere; J44.9 Chronic obstructive pulmonary disease, unspecified; R05 Cough; Z86.39 Personal history of other endocrine, nutritional and metabolic disease
CPT/HCPCS: 82040

== ENCOUNTER → 2018-08-16 | Outpatient (REF) | payer MEDICARE | LOC: M LAB REF 13:15 | DX: J44.9 Chronic obstructive pulmonary disease, unspecified (principal); R05 Cough ==

== ENCOUNTER → 2018-09-12 | Outpatient (CLI) | payer MEDICARE ==
[2018-09-12 14:27] LABS: BASO % 0.5 % (0.0-1.0); EOS # 0.3 10^3/uL (0.0-0.50); EOS % 3.6 % (0.0-3.0); HEMATOCRIT 35.2 % (36.0-47.0); HEMOGLOBIN 11.2 g/dl (12.0-15.5); IMMATURE GRANULOCYTE % 0.4 % (0-3.0); LYMPH # 1.5 10^3/uL (1.5-4.5); MEAN CORPUSCULAR HEMOGLOBIN 26.2 pg (27.0-33.0); MEAN CORPUSCULAR HGB CONC 31.8 g/dl (32.0-36.5); MEAN CORPUSCULAR VOLUME 82.2 fl (80.0-96.0); MONO # 0.6 10^3/uL (0.0-0.8); MONO % 7.1 % (0.0-5.0); NEUTROPHILS # 5.5 10^3/uL (1.8-7.7); NEUTROPHILS % 69.4 % (36.0-66.0); PLATELET COUNT, AUTOMATED 311 10^3/uL (150-450); RED BLOOD COUNT 4.28 10^6/uL (4.00-5.40); RED CELL DISTRIBUTION WIDTH 13.2 % (11.5-14.5); WHITE BLOOD COUNT 7.9 10^3/uL (4.0-10.0)
[2018-09-12 15:13] LABS: IMMUNOGLOBULIN A 321 MG/DL (70-400); IMMUNOGLOBULIN G 871 MG/DL (681-1648); IMMUNOGLOBULIN M 60 MG/DL (40-230)
[2018-09-13 11:28] LABS: RUBELLA IgG QUALITATIVE IMMUNE (IMMUNE)
[2018-09-18 14:14] LABS: ANTI TETANUS ANTIBODY 0.51 IU/mL (<0.10); IMMUNOGLOBULIN D 5.45 mg/dL (<14.11); IgG SUBCLASS 4(ONLY) 11 mg/dL (2-96); STREP PNEUMO TYPE 1 >43.5 ug/mL (>1.3); STREP PNEUMO TYPE 12F 0.4 ug/mL (>1.3); STREP PNEUMO TYPE 18C 3.7 ug/mL (>1.3); STREP PNEUMO TYPE 19A >17.2 ug/mL (>1.3); STREP PNEUMO TYPE 19F 19.4 ug/mL (>1.3); STREP PNEUMO TYPE 23F 6.9 ug/mL (>1.3); STREP PNEUMO TYPE 3 8.6 ug/mL (>1.3); STREP PNEUMO TYPE 4 1.2 ug/mL (>1.3); STREP PNEUMO TYPE 6B 6.8 ug/mL (>1.3); STREP PNEUMO TYPE 7F 6.4 ug/mL (>1.3); STREP PNEUMO TYPE 8 >25.3 ug/mL (>1.3); STREP PNEUMO TYPE 9N 4.1 ug/mL (>1.3); STREP PNEUMO TYPE 9V >16.4 ug/mL (>1.3)
== END ==
LOC: M SMT 10:32
DX: D80.1 Nonfamilial hypogammaglobulinemia (principal)
CPT/HCPCS: 82785

== ENCOUNTER → 2018-10-04 | Outpatient (REF) | payer MEDICARE ==
[~2018-10-04] MED LIST changes: +AMLO10TA5; +AMLO10TA5 PO; +AMLO5TAB6 PO; +ARNU1INH3; +ARNU1INH3 INH; +ASPI81TA85 PO; +ASPI81TAEC PO; +ATOR80TA59 PO; +AVEL1TAB3 PO; +AZIT-12 PO; +AZIT500T2; +AZIT500T2 PO; +BISO10TA6; +BISO10TA6 PO; +BISO5TAB5 PO; +BLOOKIT21 XX; +BUME1TAB3; +BUME1TAB3 PO; +BUPR300T34 PO; +CEFD300CAP PO; +CHLO125TA; +CHLO125TA PO; +CHLO25TA PO; +D-CA1KIT XX; +FAMO1TAB11; +FAMO1TAB11 PO; +FERR1TAB8 PO; +FLUTISP; +INSUDET SC; +IPRA0.00 NEB; +IPRA3SP; +IRON65TA PO; +K-TA10TA2 PO; +LEVA750T7 PO; +LEVE1INJ5 SC; +LOSA50TA88 PO; +MONT10TA2 PO; +NEBUMIS2 XX; +PANT40TA3 PO; +PERCOCET PO; +POTA20TA6; +PRED10PA PO; +PRED20TA PO; +PROAAER10 INH; +PROT1TAB2 PO; +SALMDISK INH; +TRAZ-160 PO; -TRAZ50TA11 PO; +TRUL0.5I SC; +TRUL10IN SC; +VALS1TAB46 PO; +VITA100066 PO; +VITA200015; +VITA200015 PO; +[UNRECOGNIZED DRUG - CODE] XX; +[UNRECOGNIZED DRUG - CODE] XX
[2018-10-04 13:57] LABS: PERCENT SATURATION 13.6 % (13.2-45.0)
== END ==
LOC: M LAB REF 13:09
PROVIDERS: ATTEND Internal Medicine Nephrology
DX: N18.9 Chronic kidney disease, unspecified (principal); D63.1 Anemia in chronic kidney disease

== ENCOUNTER → 2018-11-07 | Outpatient (REF) | payer MEDICARE ==
[2018-11-07 13:46] LABS: BILIRUBIN,TOTAL 0.3 MG/DL (0.2-1.0); CALCIUM LEVEL 8.8 MG/DL (8.8-10.2); CREATININE FOR GFR 1.54 MG/DL (0.55-1.30); GLOMERULAR FILTRATION RATE 36.2 (>45); POTASSIUM SERUM 4.2 MEQ/L (3.5-5.1)
[2018-11-07 13:47] LABS: ALBUMIN 3.4 GM/DL (3.2-5.2); CHOLESTEROL RISK RATIO 8.27 (<5); TOTAL PROTEIN 6.6 GM/DL (6.4-8.2)
[2018-11-07 14:05] LABS: HEMOGLOBIN A1c 9.6 %
== END ==
LOC: M SFHCPLAZ 10:54
PROVIDERS: ATTEND Nurse Practitioner Family
DX: E11.65 Type 2 diabetes mellitus with hyperglycemia (principal); E78.5 Hyperlipidemia, unspecified
CPT/HCPCS: 36415; 80053; 80061; 83036; G0463

== ENCOUNTER → 2018-12-03 | Outpatient (CLI) | payer MEDICARE ==
--- NOTE | 2018-12-04 02:43 | REP ---
Clinical: Right hip pain. Technique: Neutral and frog lateral views of the right hip. Findings: Early advanced osteoarthritic degenerative changes include subchondral sclerosis/irregularity involving the acetabulum and femoral head as well as complete joint space obliteration and osteophyte formation. No acute fracture dislocation. Impression: Early advanced osteoarthritic degenerative changes. Electronically Signed by Alden Ramon MD 12/04/2018 02:35 A
== END ==
LOC: M WUC 16:09
PROVIDERS: ATTEND Physician Assistant
DX: M16.11 Unilateral primary osteoarthritis, right hip (principal); M25.551 Pain in right hip

== ENCOUNTER → 2018-12-12 | Outpatient (REF) | payer MEDICARE ==
[2018-12-12 14:27] LABS: BASO % 0.3 % (0.0-1.0); EOS # 0.2 10^3/uL (0.0-0.50); EOS % 1.7 % (0.0-3.0); HEMOGLOBIN 11.6 g/dl (12.0-15.5); LYMPH % 18.9 % (24.0-44.0); MEAN CORPUSCULAR HEMOGLOBIN 25.8 pg (27.0-33.0); MEAN CORPUSCULAR HGB CONC 32.2 g/dl (32.0-36.5); MONO # 0.6 10^3/uL (0.0-0.8); MONO % 5.9 % (0.0-5.0); NEUTROPHILS # 7.6 10^3/uL (1.8-7.7); NEUTROPHILS % 72.9 % (36.0-66.0); PLATELET COUNT, AUTOMATED 342 10^3/uL (150-450); WHITE BLOOD COUNT 10.5 10^3/uL (4.0-10.0)
[2018-12-12 14:59] LABS: ALBUMIN 3.6 GM/DL (3.2-5.2); PERCENT SATURATION 12.3 % (13.2-45.0)
== END ==
LOC: M LABDRAWP 11:58
PROVIDERS: ATTEND Orthopaedic Surgery
DX: Z01.818 Encounter for other preprocedural examination (principal); M25.559 Pain in unspecified hip; D63.8 Anemia in other chronic diseases classified elsewhere; M16.11 Unilateral primary osteoarthritis, right hip

== ENCOUNTER → 2019-02-06 | Outpatient (REF) | payer MEDICARE ==
[~2019-02-06] MED LIST changes: -VALS1TAB46 PO; +VALS1TAB66 PO
[2019-02-06 13:16] LABS: HEMATOCRIT 32.5 % (36.0-47.0); HEMOGLOBIN 10.1 g/dl (12.0-15.5); MEAN CORPUSCULAR HEMOGLOBIN 26.9 pg (27.0-33.0); MEAN CORPUSCULAR HGB CONC 31.1 g/dl (32.0-36.5); MEAN CORPUSCULAR VOLUME 86.4 fl (80.0-96.0); PLATELET COUNT, AUTOMATED 465 10^3/uL (150-450); RED BLOOD COUNT 3.76 10^6/uL (4.00-5.40); WHITE BLOOD COUNT 8.9 10^3/uL (4.0-10.0)
[2019-02-06 13:50] LABS: ALBUMIN 3.7 GM/DL (3.2-5.2); BILIRUBIN,TOTAL 0.3 MG/DL (0.2-1.0); CALCIUM LEVEL 8.9 MG/DL (8.8-10.2); CREATININE FOR GFR 1.82 MG/DL (0.55-1.30); GLOMERULAR FILTRATION RATE 29.9 (>45); PERCENT SATURATION 18.2 % (13.2-45.0); POTASSIUM SERUM 4.1 MEQ/L (3.5-5.1); TOTAL PROTEIN 7.1 GM/DL (6.4-8.2)
== END ==
LOC: M SFHCPLAZ 11:26
PROVIDERS: ATTEND Nurse Practitioner Family
DX: N18.3 Chronic kidney disease, stage 3 (moderate) (principal); D63.1 Anemia in chronic kidney disease; E78.5 Hyperlipidemia, unspecified
CPT/HCPCS: 36415; 80053; 83550; 85027; G0463

== ENCOUNTER 2019-03-30 15:26 | Inpatient (IN) | payer MEDICARE ==
[~2019-03-30] VITALS: Ht 149.9 cm; Wt 99.5 kg
[~2019-03-30 15:26] MED LIST changes: -TRAZ-160 PO; +TRAZ-252 PO
[2019-03-30] MEDS ORDERED: IPRATROPIUM 0.5MG/ALBUTEROL 2.5MG INH SOL UD 3ML (DUONEB)(J7620) NEB PRN ×2 (15:45→18:30)
[2019-03-30] MEDS ORDERED: NOVOINJ3 SC (16:06)
[2019-03-30] MEDS ORDERED: EZET10TA21 PO (16:06)
[2019-03-30 16:10] LABS: BASO # 0.1 10^3/uL (0.0-0.2); BASO % 0.4 % (0.0-1.0); EOS # 0.3 10^3/uL (0.0-0.50); EOS % 2.5 % (0.0-3.0); HEMATOCRIT 29.4 % (36.0-47.0); HEMOGLOBIN 9.6 g/dl (12.0-15.5); LYMPH # 1.1 10^3/uL (1.5-4.5); LYMPH % 9.4 % (24.0-44.0); MEAN CORPUSCULAR HEMOGLOBIN 28.2 pg (27.0-33.0); MEAN CORPUSCULAR HGB CONC 32.7 g/dl (32.0-36.5); MEAN CORPUSCULAR VOLUME 86.5 fl (80.0-96.0); MONO # 0.6 10^3/uL (0.0-0.8); MONO % 5.3 % (0.0-5.0); NEUTROPHILS % 82.1 % (36.0-66.0); PLATELET COUNT, AUTOMATED 225 10^3/uL (150-450); WHITE BLOOD COUNT 12.2 10^3/uL (4.0-10.0)
--- NOTE | 2019-03-30 16:28 | REP ---
Clinical: Cough and dyspnea . Comparison: 06/07/2018. Findings: The mediastinum and cardiac silhouette are stable and within normal limits for portable technique. Bibasilar infiltrates and possible right lower lobe mass. No effusion. No pneumothorax. Impression: Bibasilar infiltrates and possible right lower lobe mass. Electronically Signed by Alden Ramon MD 03/30/2019 04:19 P
[2019-03-30] MEDS ORDERED: MOXIFLOXACIN HCL 400 MG in APPROPRIATE DILUENT 1 EA IV ONE (16:30)
[2019-03-30 16:42] LABS: ALBUMIN 3.1 GM/DL (3.2-5.2); ALT/SGPT 35 U/L (12-78); BILIRUBIN,DIRECT 0.1 MG/DL (0.0-0.2); BILIRUBIN,TOTAL 0.4 MG/DL (0.2-1.0); BLOOD UREA NITROGEN 54 MG/DL (7-18); CALCIUM LEVEL 7.9 MG/DL (8.8-10.2); CARBON DIOXIDE LEVEL 21 MEQ/L (21-32); CHLORIDE LEVEL 113 MEQ/L (98-107); CK-MB VALUE MASS 2.3 NG/ML (<3.6); CPK CREATINE PHOSPHOKINASE 123 U/L (26-192); CREATININE FOR GFR 1.75 MG/DL (0.55-1.30); GLOMERULAR FILTRATION RATE 31.3 (>45); GLUCOSE, FASTING 243 MG/DL (70-100); MB/CK RELATIVE INDEX 1.87 (< OR =4); NT-PRO BNP 3336 PG/ML (<125); POTASSIUM SERUM 4.1 MEQ/L (3.5-5.1); SODIUM LEVEL 143 MEQ/L (136-145); TOTAL PROTEIN 6.5 GM/DL (6.4-8.2); TROPONIN I < 0.02 NG/ML (< 0.10)
[2019-03-30] MEDS ORDERED: ACET-683 PO (16:53)
[2019-03-30] MEDS ORDERED: IPRA0.00 INH (16:53)
--- NOTE | 2019-03-30 17:08 | REP ---
Clinical: Cough and dyspnea with abnormal findings on chest x-ray. Technique: Axial noncontrast images from the thoracic inlet to the upper abdomen with coronal and sagittal re-formations. Findings: Multi focal alveolar and interstitial infiltrates noted throughout the bilateral lung jaquez along with reactive adenopathy, bibasilar atelectasis and small right pleural effusion. Atherosclerotic changes to the thoracic aorta and coronary arteries noted without aortic aneurysm or cardiomegaly. No pericardial effusion. Osseous structures demonstrate age-related degenerative changes. Impression: Findings most compatible with multifocal pneumonia and follow up to resolution is recommended. Electronically Signed by Alden Ramon MD 03/30/2019 05:00 P
[2019-03-30] MEDS ORDERED: ACETAMINOPHEN 500 MG TAB PO ONE (17:45)
[2019-03-30] MEDS ORDERED: DEXTROSE 50% 50 ML SYRINGE IV PRN (18:30)
[2019-03-30] MEDS ORDERED: GLUCAGON FOR INJ 1 MG VIAL (J1610) SC PRN (18:30)
[2019-03-30] MEDS ORDERED: GLUCOSE 4 GM CHEW TABLET PO PRN (18:30)
[2019-03-30] MEDS ORDERED: NS 1,000 ML IV SCH (18:30)
--- NOTE | 2019-03-30 18:33 | HPEPDOC ---
[facility] Medical History & Physical Date of Admission Mar 30, 2019 Date of Service: Mar 30, 2019 History and Physical CHIEF COMPLAINT: Shortness of breath HISTORY OF PRESENT ILLNESS: Pt is 63 y/o F with PMHx of COPD with recurrent episodes of exacerbation during the last year sec to CAP, Hx of T2DM on insulin regimen, CKD stage III, HTN, MARIZA presented to ED with worsening SOB started since Sunday, SOB associated with cough and sputum production. Denied any hemoptysis. Upon my encounter pt is AAOx3, O2 sat in range of 89-92% on 2lit NC. Pt when changes position hypoxia improves. Pt reports that she has been admitted to hospital during last year due to pneumonia, no Hx of intubation in the past. 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 Castaneda as outpt. She is not on home O2. Underwent sleep study revealing MARIZA, has CPAP at home not using CPAP sec to claustrophobia. Pt states that she only uses albuterol inhaler for rescue breathing. Pt is not on taking po steroids on a regular basis. She denies any fever, malaise, chills at home. Denies any somnolence, chest pain, lightheadedness. Denies any abdominal pain , change in BM. PAST MEDICAL HISTORY: 1. COPD not on home O2 2. MARIZA on CPAP at night, not compliant 3. CKD III 4. T2DM on Insulin 5. HTN PAST SURGICAL HISTORY: 1. s/p hip replacement 2. lumbar spine surgery SOCIAL HISTORY: retired, quit smoking many years ago, ETOH some weekends, no illicit drugs, lives alone independent FAMILY HISTORY: diabetes and HTN ALLERGIES: Please see below REVIEW OF SYSTEMS: 10 point completed negative except mentioned in HPI HOME MEDICATIONS: Please see below. PHYSICAL EXAMINATION: VITAL SIGNS: see below GENERAL APPEARANCE: AAOx3 moderate respiratory distress o2 sat at 92% on 2lit NC, pt speech and memory intact HEENT: MAGDALENA EOMI no icterus no JVD neck supple facial redness CARDIOVASCULAR: S1 S2 no murmur LUNGS: bilateral rhonchi and wheezing scattered ABDOMEN: soft NT ND MUSCULOSKELETAL: no joint deformity no edema EXTREMITIES: no tenderness no edema no cyanosis no clubbing NEUROLOGICAL: motor sensory grossly intact PSYCHIATRIC: mood affect appropriate LABORATORY DATA: See below. IMAGING: CXR: basliar infiltrates Chest CT: diffuse bilat infiltrates MICROBIOLOGY: Please see below. Vital Signs Date Time Temp Pulse Resp B/P (MAP) Pulse Ox O2 Delivery O2 Flow Rate FiO2 03/30/19 17:34 158/71 (100) 03/30/19 17:26 77 20 89 Nasal Cannula 2.0 03/30/19 16:56 89 20 91 Nasal Cannula 2.0 03/30/19 16:46 181/76 (111) 03/30/19 16:41 80 91 03/30/19 16:31 172/66 (101) 03/30/19 16:26 83 89 03/30/19 16:11 83 22 89 Nasal Cannula 2.0 03/30/19 16:06 03/30/19 16:00 165/78 (107) 03/30/19 15:56 79 92 03/30/19 15:46 179/75 (109) 03/30/19 15:41 82 90 03/30/19 15:26 98.4 82 36 203/89 (127) 85 Room Air Laboratory Tests 03/30/19 15:48: POC pH (Misc Panel) 7.353, POC Base Excess (Misc Panel) -8.0L, POC Saturated Percent O2 (Misc) 87L, POC pO2 (Misc Panel) 54.0L, POC pCO2 (Misc Panel) 31.6L, POC HCO3 (Misc Panel) 17.6L, POC Total CO2 (Misc Panel) 19.0L 03/30/19 15:51: White Blood Count 12.2H, Red Blood Count 3.40L, Hemoglobin 9.6L, Hematocrit 29.4L, Mean Corpuscular Volume 86.5, Mean Corpuscular Hemoglobin 28.2, Mean Corpuscular Hemoglobin Concent 32.7, Red Cell Distribution Width 13.3, Platelet Count 225, Neutrophils (%) (Auto) 82.1H, Lymphocytes (%) (Auto) 9.4L, Monocytes (%) (Auto) 5.3H, Eosinophils (%) (Auto) 2.5, Basophils (%) (Auto) 0.4, Neutrophils # (Auto) 10.0H, Lymphocytes # (Auto) 1.1L, Monocytes # (Auto) 0.6, Eosinophils # (Auto) 0.3, Basophils # (Auto) 0.1, Immature Granulocyte % (Auto) 0.3, Nucleated Red Blood Cells % (auto) 0.0 03/30/19 15:53: Sodium Level 143, Potassium Level 4.1, Chloride Level 113H, Carbon Dioxide Level 21, Anion Gap 9, Blood Urea Nitrogen 54H, Creatinine 1.75H, Glomerular Filtration Rate 31.3L, Fasting Glucose 243H, Lactic Acid Level 0.9, Calcium Level 7.9L, Aspartate Amino Transf (AST/SGOT) 14, Alanine Aminotransferase (ALT/SGPT) 35, Alkaline Phosphatase 81, Total Bilirubin 0.4, Direct Bilirubin 0.1, Total Creatine Kinase 123, Creatine Kinase MB 2.3, Creatine Kinase MB Relative Index 1.87, Troponin I < 0.02, VH-[id number]-Type Natriuretic Peptide 3336H, Total Protein 6.5, Albumin 3.1L, Albumin/Globulin Ratio 0.91L, Thyroid Stimulating Hormone (TSH) 2.060 Current Medications Medications (Trade) Dose Ordered Sig/Stephane Route PRN Reason Start Time Stop Time Status Last Admin Dose Admin Albuterol/ Ipratropium (Duoneb (Ipr 0.5mg/Alb 2.5mg)) 3 ml Q20M PRN NEB SHORTNESS OF BREATH 03/30/19 15:45 03/30/19 15:51 3 ML A/P 1-Acute hypoxic respiratory failure 2-Acute Exacerbation of COPD Admit to regular floor COPD diet, Activity as tolerated O2 NC titrate O2 for PO2 88-92% Albuterol/Ipratropium Q2hr PRn and Q6hr stephane ABG now Formoterol INH BID Pulmicort BID Solumedrol 80 q8hr Ceftriaxone Azithromycin Sputum Culture, Blood Culture COPD exacerbation likely sec to pneumonia reported in chest CT, pt in moderate respiratory distress, with wheezing and PO2 at 92% on 2 lit, pt is not confused or lethargic currently will proceed with IV antibiotics, steroids and bronchodilators. close clinical monitoring. F/U ABG when available 3-T2DM FS AC HS short acting meal coverage per SS Levemir 20 u BID 4-HTN home med Norvasc 10mg Bisoprolol 5- CKD Cr at basline f/u BMP in AM DVT prophylaxis lovenox SW/CM PT/OT Vital Signs Vital Signs Date Time Temp Pulse Resp B/P (MAP) Pulse Ox O2 Delivery O2 Flow Rate FiO2 03/30/19 17:34 158/71 (100) 03/30/19 17:26 77 20 89 Nasal Cannula 2.0 03/30/19 15:26 98.4 Laboratory Data Labs 24H Laboratory Tests 2 03/30/19 15:48: POC pH (Misc Panel) 7.353, POC Base Excess (Misc Panel) -8.0L, POC Saturated Percent O2 (Misc) 87L, POC pO2 (Misc Panel) 54.0L, POC pCO2 (Misc Panel) 31.6L, POC HCO3 (Misc Panel) 17.6L, POC Total CO2 (Misc Panel) 19.0L 03/30/19 15:51: Immature Granulocyte % (Auto) 0.3, White Blood Count 12.2H, Red Blood Count 3.40L, Hemoglobin 9.6L, Hematocrit 29.4L, Mean Corpuscular Volume 86.5, Mean Corpuscular Hemoglobin 28.2, Mean Corpuscular Hemoglobin Concent 32.7, Red Cell Distribution Width 13.3, Platelet Count 225, Neutrophils (%) (Auto) 82.1H, Lymphocytes (%) (Auto) 9.4L, Monocytes (%) (Auto) 5.3H, Eosinophils (%) (Auto) 2.5, Basophils (%) (Auto) 0.4, Neutrophils # (Auto) 10.0H, Lymphocytes # (Auto) 1.1L, Monocytes # (Auto) 0.6, Eosinophils # (Auto) 0.3, Basophils # (Auto) 0.1, Nucleated Red Blood Cells % (auto) 0.0 03/30/19 15:53: Anion Gap 9, Glomerular Filtration Rate 31.3L, Lactic Acid Level 0.9, Calcium Level 7.9L, Aspartate Amino Transf (AST/SGOT) 14, Alanine Aminotransferase (ALT/SGPT) 35, Alkaline Phosphatase 81, Total Bilirubin 0.4, Direct Bilirubin 0.1, Total Creatine Kinase 123, Creatine Kinase MB 2.3, Creatine Kinase MB Relative Index 1.87, Troponin I < 0.02, IV-Vrz-Q-Type Natriuretic Peptide 3336H, Total Protein 6.5, Albumin 3.1L, Albumin/Globulin Ratio 0.91L, Thyroid Stimu lating Hormone (TSH) 2.060 CBC/BMP Laboratory Tests 03/30/19 15:51 Red Blood Count 3.40 L, Mean Corpuscular Volume 86.5, Mean Corpuscular Hemoglobin 28.2, Mean Corpuscular Hemoglobin Concent 32.7, Red Cell Distribution Width 13.3, Neutrophils (%) (Auto) 82.1 H, Lymphocytes (%) (Auto) 9.4 L, Monocytes (%) (Auto) 5.3 H, Eosinophils (%) (Auto) 2.5, Basophils (%) (Auto) 0.4, Neutrophils # (Auto) 10.0 H, Lymphocytes # (Auto) 1.1 L, Monocytes # (Auto) 0.6, Eosinophils # (Auto) 0.3, Basophils # (Auto) 0.1 03/30/19 15:53 Microbiology Microbiology 03/30/19 Blood Culture, Received Pending 03/30/19 Blood Culture, Received Pending Home Medications Scheduled Amlodipine Besylate (Amlodipine Besylate) 10 Mg Tab, 10 MG PO DAILY Aspirin (Aspirin EC) 81 Mg Tabec, 81 MG PO DAILY Atorvastatin Calcium (Atorvastatin Calcium) 80 Mg Tab, 80 MG PO QHS Bisoprolol Fumarate (Bisoprolol Fumarate) 10 Mg Tab, 10 MG PO DAILY Chlorthalidone (Chlorthalidone) 25 Mg Tab, 25 MG PO DAILY Dulaglutide (Trulicity) 1.5 Mg/0.5 Ml Inj, 1.5 MG SC 1XWK PT HASN'T TAKEN IN ABOUT THREE WEEKS DUE TO COST Ezetimibe (Ezetimibe) 10 Mg Tablet, 10 MG PO QHS Insulin Aspart (Novolog Flexpen) 100 Unit/1 Ml Insuln.pen, 2 UNITS SC AC Insulin Detemir (Levemir) 1 Units/0.01 Ml Susp, 40 UNITS SC QHS Scheduled PRN Acetaminophen (Acetaminophen) 500 Mg Tablet, 1,000 MG PO TID PRN for PAIN Albuterol Sulfate (Proair Hfa) 108 Mcg/Act Aer, 2 PUFFS INH Q4H PRN for SHORTNESS OF BREATH Ipratropium/Albuterol Sulfate (Iprat-Albut 0.5-3(2.5) mg/3 ml) 3 Ml Ampul.neb, 1 SEGUNDO INH QID PRN for SOB/WHEEZING Allergies Coded Allergies: Penicillins (Verified Allergy, Unknown, 03/30/19) doxycycline (Verified Allergy, Unknown, 03/30/19) A-FIB/CHADSVASC A-FIB History Current/History of A-Fib/PAF?: No ABDON ROBERTO MD Mar 30, 2019 18:33
[2019-03-30] MEDS: IPRATROPIUM 0.5MG/ALBUTEROL 2.5MG INH SOL UD 3ML (DUONEB)(J7620) NEB SCH (19:42)
[2019-03-30] MEDS: methylPREDNISolone INJ 125 MG/2 ML VIAL (J2930) IV SCH (20:14)
[2019-03-30] MEDS ORDERED: SYMBICORT 80/4.5MCG INHALER 6GM INH SCH (21:00)
[2019-03-30 21:30] VITALS: BP 161/74
[2019-03-30] MEDS: PANTOPRAZOLE 40MG INJ (PROTONIX) (C9113) IV SCH (21:35)
[2019-03-30] MEDS: ATORVASTATIN 20 MG TAB PO SCH (21:35)
[2019-03-30] MEDS: cefTRIAXone SOD 1 GM in D5W 50 ML IV SCH (21:36)
[2019-03-30] MEDS: LEVEMIR (INSULIN DETEMIR) 1 UNITS/0.01ML SC SCH (22:43)
[2019-03-30] MEDS: HumaLOG INSULIN (NovoLOG) PER UNIT SC SCH (22:44)
[2019-03-31] MEDS: IPRATROPIUM 0.5MG/ALBUTEROL 2.5MG INH SOL UD 3ML (DUONEB)(J7620) NEB SCH ×5 (02:25→23:44)
[2019-03-31] MEDS: methylPREDNISolone INJ 125 MG/2 ML VIAL (J2930) IV SCH ×3 (04:04→16:39)
[2019-03-31] MEDS: PERCOCET 5MG/325MG TAB PO PRN ×2 (04:05→20:26)
[2019-03-31 06:00] VITALS: BP 155/76
[2019-03-31 06:17] LABS: BASO % 0.3 % (0.0-1.0); HEMATOCRIT 29.2 % (36.0-47.0); HEMOGLOBIN 9.3 g/dl (12.0-15.5); LYMPH # 0.4 10^3/uL (1.5-4.5); LYMPH % 4.8 % (24.0-44.0); MEAN CORPUSCULAR HGB CONC 31.8 g/dl (32.0-36.5); MONO # 0.1 10^3/uL (0.0-0.8); MONO % 0.7 % (0.0-5.0); NEUTROPHILS # 7.2 10^3/uL (1.8-7.7); NEUTROPHILS % 93.8 % (36.0-66.0); PLATELET COUNT, AUTOMATED 186 10^3/uL (150-450); RED BLOOD COUNT 3.32 10^6/uL (4.00-5.40); WHITE BLOOD COUNT 7.7 10^3/uL (4.0-10.0)
[2019-03-31 06:44] LABS: ALBUMIN 2.7 GM/DL (3.2-5.2); BILIRUBIN,TOTAL 0.4 MG/DL (0.2-1.0); CALCIUM LEVEL 7.8 MG/DL (8.8-10.2); CREATININE FOR GFR 2.03 MG/DL (0.55-1.30); GLOMERULAR FILTRATION RATE 26.3 (>45); POTASSIUM SERUM 4.6 MEQ/L (3.5-5.1); TOTAL PROTEIN 6.7 GM/DL (6.4-8.2)
[2019-03-31] MEDS: PANTOPRAZOLE 40MG INJ (PROTONIX) (C9113) IV SCH (07:49)
[2019-03-31] MEDS: AZITHROMYCIN INJ 500 MG, VIAL MATE ADAPTER 1 EACH in D5W 250 ML IV SCH (07:50)
[2019-03-31] MEDS: LEVEMIR (INSULIN DETEMIR) 1 UNITS/0.01ML SC SCH (07:51)
[2019-03-31] MEDS: HumaLOG INSULIN (NovoLOG) PER UNIT SC SCH ×4 (07:52→21:00)
[2019-03-31] MEDS: amLODIPine 10 MG TAB PO SCH (07:54)
[2019-03-31] MEDS: ASPIRIN 81 MG ENTERIC TAB PO SCH (07:55)
[2019-03-31] MEDS: BISOPROLOL FUMARATE 10 MG TAB PO SCH (07:56)
--- NOTE | 2019-03-31 08:09 | IPNPDOC ---
Subjective Date Seen The patient was seen on 03/31/19. Subjective Chief Complaint/HPI SOB, hypoxia Events since last encounter Admitted 03/30/19 for multifocal pneumonia, COPD exacerbation. Started on Solumedrol and Levemir dosing split in half from 40 unit sq daily to 20 units sq bid. Glucose this am over 400. Patient states mild improvement. Is requiring oxygen2-4LNC to maintain sats at or below 92%. Constitutional: Denies: Chills, Fever, Night Sweats Skin: Denies: Rash, Lesions, Breakdown Pulmonary: Reports: Dyspnea, Cough Cardiovascular: Denies: Chest Pain, Palpitations, Orthopnea, Paroxysmal Noc. Dyspnea, Lt Headedness Gastrointestinal: Denies: Nausea, Vomiting, Abdominal Pain, Diarrhea, Co nstipation Genitourinary: Denies: Dysuria, Frequency, Incontinence, Retention Psych: Reports: Mood Normal; Denies: Depression, Memory Issues Objective Physical Examination General Exam: Positive: Alert, No Acute Distress Eye Exam: Positive: PERRLA, Conjunctiva & lids normal, EOMI; Negative: Sclera icteric Chest Exam: Positive: Rhonchi, Wheezing Heart Exam: Positive: Rate Normal, Regular Rhythm, Normal S1, Normal S2; Negative: Murmurs, Rubs Telemetry: Positive: No significant arrhythmia Abdomen Exam: Positive: Normal bowel sounds, Soft; Negative: Tenderness, Hepatospenomegaly Extremity Exam: Positive: Edema (2+) Skin Exam: Positive: Nl turgor and temperature; Negative: Rash, Breakdown Psych Exam: Positive: Mental status NL, Mood NL, Oriented x 3 Assessment /Plan Assessment Seen, agree with note below. I increased her long-acting insulin, as she is not well controlled at baseline (last A1C on record was over 9.) Currently hyperglycemic, and changed diet to consistent carb. Continue to taper off steroids as tolerated. She does note that she sees Dr. Castaneda in the outpatient setting, and has declined multiple inhalers as "I didn't need them." Has not been able to afford Trulicity, hasn't taken in weeks, though she expects it to come in this week; states she made an arrangement with the [facility] to obtain it at a discount. -- CDT Problems (1) COPD with acute exacerbation Status: Acute Problem Text: Duonebs q 6 hrs with albuterol q 2 hrs prn. Spiriva added on. Symbicort added by hospitalist, will hold Symbicort while taking Duoneb scheduled dosing. Solumedrol: will de-escalate dosing. Incentive spirometry. encouraged OOB and coughing with deep breathing. Patient non compliant with routine inhalers at home due to feeling like she doesn't need them. May need to re-address inhalation therapy prior to discharge. Follows with Dr. Castaneda outpatient Pulmonology (2) Hypoxia Status: Acute Problem Text: Keep sats 88-92% (3) Pneumonia Status: Acute Problem Text: Day#2 azithromycin and Ceftriaxone. (4) CKD (chronic kidney disease) stage 3, GFR 30-59 ml/min Status: Chronic Problem Text: follows with nephrology. baseline cr. 1.5-1.8 (5) DM2 (diabetes mellitus, type 2) Status: Chronic Problem Text: hyperglycemic. Will resume Levemir 40 units sq daily and RISS. De-escalating Solumedrol dosing will assist with glucose levels. (6) CHF (congestive heart failure) Status: Chronic Problem Text: Echo 2018: Mildly dilated left atrium with pseudo normalized filling pattern and Doppler evidence of at least mildly elevated mean left atrial pressure. Normal right heart chamber sizes and motion with Doppler evidence of at least mild to moderate pulmonary hypertension. Normal IVC size with slightly reduced respiratory collapse suggestive a slightly elevated central venous pressure. Mild mitral annular thickening with normal leaflet thickness and excursion with no posterior systolic buckling. Only trace physiologic insufficiency. Normal appearing aortic valve and aortic root. No intracardiac mass or pericardial effusion. (7) MARIZA on CPAP Status: Chronic Problem Text: non-complaint with CPAP. Plan/VTE VTE Prophylaxis Ordered?: Yes VS, I&O, 24H, Fishbone Vital Signs/I&O Vital Signs Date Time Temp Pulse Resp B/P (MAP) Pulse Ox O2 Delivery O2 Flow Rate FiO2 03/31/19 07:56 75 154/76 03/31/19 06:00 97.6 18 91 4.0 03/30/19 19:25 Nasal Cannula I&O- Last 24 Hours up to 6 AM 03/31/19 06:00 Intake Total 820 ml Output Total 200 ml Balance 620 ml Laboratory Data 24H LABS Laboratory Tests 2 03/30/19 15:48: POC pH (Misc Panel) 7.353, POC Base Excess (Misc Panel) -8.0L, POC Saturated Percent O2 (Misc) 87L, POC pO2 (Misc Panel) 54.0L, POC pCO2 (Misc Panel) 31.6L, POC HCO3 (Misc Panel) 17.6L, POC Total CO2 (Misc Panel) 19.0L 03/30/19 15:51: Immature Granulocyte % (Auto) 0.3, White Blood Count 12.2H, Red Blood Count 3.40L, Hemoglobin 9.6L, Hematocrit 29.4L, Mean Corpuscular Volume 86.5, Mean Corpuscular Hemoglobin 28.2, Mean Corpuscular Hemoglobin Concent 32.7, Red Cell Distribution Width 13.3, Platelet Count 225, Neutrophils (%) (Auto) 82.1H, Lymphocytes (%) (Auto) 9.4L, Monocytes (%) (Auto) 5.3H, Eosinophils (%) (Auto) 2.5, Basophils (%) (Auto) 0.4, Neutrophils # (Auto) 10.0H, Lymphocytes # (Auto) 1.1L, Monocytes # (Auto) 0.6, Eosinophils # (Auto) 0.3, Basophils # (Auto) 0.1, Nucleated Red Blood Cells % (auto) 0.0 03/30/19 15:53: Anion Gap 9, Glomerular Filtration Rate 31.3L, Lactic Acid Level 0.9, Calcium Level 7.9L, Aspartate Amino Transf (AST/SGOT) 14, Alanine Aminotransferase (ALT/SGPT) 35, Alkaline Phosphatase 81, Total Bilirubin 0.4, Direct Bilirubin 0.1, Total Creatine Kinase 123, Creatine Kinase MB 2.3, Creatine Kinase MB Relative Index 1.87, Troponin I < 0.02, [id number]-Type Natriuretic Peptide 3336H, Total Protein 6.5, Albumin 3.1L, Albumin/Globulin Ratio 0.91L, Thyroid Stimulating Hormone (TSH) 2.060 03/30/19 22:03: Bedside Glucose (Misc Panel) 370H 03/31/19 00:25: 03/31/19 05:30: Immature Granulocyte % (Auto) 0.4, White Blood Count 7.7, Red Blood Count 3.32L, Hemoglobin 9.3L, Hematocrit 29.2L, Mean Corpuscular Volume 88.0, Mean Corpuscular Hemoglobin 28.0, Mean Corpuscular Hemoglobin Concent 31.8L, Red Cell Distribution Width 13.1, Platelet Count 186, Neutrophils (%) (Auto) 93.8H, Lymphocytes (%) (Auto) 4.8L, Monocytes (%) (Auto) 0.7, Eosinophils (%) (Auto) 0.0, Basophils (%) (Auto) 0.3, Neutrophils # (Auto) 7.2, Lymphocytes # (Auto) 0.4L, Monocytes # (Auto) 0.1, Eosinophils # (Auto) 0.0, Basophils # (Auto) 0.0, Nucleated Red Blood Cells % (auto) 0.0, Anion Gap 10, Glomerular Filtration Rate 26.3L, Blood Urea Nitrogen 66H, Creatinine 2.03H, Sodium Level 139, Potassium Level 4.6, Chloride Level 111H, Carbon Dioxide Level 18L, Calcium Level 7.8L, Aspartate Amino Transf (AST/SGOT) 8, Alanine Aminotransferase (ALT/SGPT) 31, Alkaline Phosphatase 74, Total Bilirubin 0.4, Total Protein 6.7, Albumin 2.7L, Albumin/Globulin Ratio 0.68L CBC/BMP Laboratory Tests 03/30/19 15:51 Red Blood Count 3.40 L, Mean Corpuscular Volume 86.5, Mean Corpuscular Hemoglobin 28.2, Mean Corpuscular Hemoglobin Concent 32.7, Red Cell Distribution Width 13.3, Neutrophils (%) (Auto) 82.1 H, Lymphocytes (%) (Auto) 9.4 L, Monocytes (%) (Auto) 5.3 H, Eosinophils (%) (Auto) 2.5, Basophils (%) (Auto) 0.4, Neutrophils # (Auto) 10.0 H, Lymphocytes # (Auto) 1.1 L, Monocytes # (Auto) 0.6, Eosinophils # (Auto) 0.3, Basophils # (Auto) 0.1 03/30/19 15:53 03/31/19 05:30 Red Blood Count 3.32 L, Mean Corpuscular Volume 88.0, Mean Corpuscular Hemoglobin 28.0, Mean Corpuscular Hemoglobin Concent 31.8 L, Red Cell Distribu tion Width 13.1, Neutrophils (%) (Auto) 93.8 H, Lymphocytes (%) (Auto) 4.8 L, Monocytes (%) (Auto) 0.7, Eosinophils (%) (Auto) 0.0, Basophils (%) (Auto) 0.3, Neutrophils # (Auto) 7.2, Lymphocytes # (Auto) 0.4 L, Monocytes # (Auto) 0.1, Eosinophils # (Auto) 0.0, Basophils # (Auto) 0.0, Calcium Level 7.8 L, Aspartate Amino Transf (AST/SGOT) 8, Alanine Aminotransferase (ALT/SGPT) 31, Alkaline Phosphatase 74, Total Bilirubin 0.4, Total Protein 6.7, Albumin 2.7 L Microbiology Microbiology 03/30/19 Blood Culture, Received Pending 03/30/19 Blood Culture, Received Pending Sheila Allen Mar 31, 2019 08:09 RAMESH VIERA DO Mar 31, 2019 13:56
[2019-03-31] MEDS ORDERED: CHLORTHALIDONE 25 MG TAB PO SCH (09:00)
[2019-03-31] MEDS: ALBUTEROL SULFATE 2.5 MG/0.5 ML INH NEB SOLN NEB PRN (09:53)
[2019-03-31] MEDS: TIOTROPIUM INHALER/CAPSULE (SPIRIVA) INH SCH (09:53)
[2019-03-31 10:00] VITALS: BP 146/72
[2019-03-31] MEDS: ENOXAPARIN 40 MG/0.4 ML SYRINGE (J1650) SC SCH (10:25)
[2019-03-31] MEDS ORDERED: HumaLOG INSULIN (NovoLOG) PER UNIT SC ONE ×2 (13:00→18:15)
[2019-03-31 14:00] VITALS: BP 145/70
[2019-03-31] MEDS ORDERED: LEVEMIR (INSULIN DETEMIR) 1 UNITS/0.01ML SC ONE ×2 (15:00→18:15)
[2019-03-31 15:04] VITALS: BP 133/75; PULSE 83
--- NOTE | 2019-03-31 15:24 | IPNPDOC ---
Text Note Date of Service The patient was seen on 03/31/19. NOTE I was notified that patient requested transfer to the hospitalist team at the [facility] time that I was told that she had chest discomfort while she was up to the bathroom. I ordered stat cardiac enzymes and EKG, called hospitalist and notified them of transfer request and acute chest discomfort with workup pending. Vitals taken at the time reported stable: P 83, RR 20, O2 94%, BP 133/75. VS,Fishbone, I+O VS, Fishbone, I+O Laboratory Tests 03/30/19 15:51 Red Blood Count 3.40 L, Mean Corpuscular Volume 86.5, Mean Corpuscular Hemogl obin 28.2, Mean Corpuscular Hemoglobin Concent 32.7, Red Cell Distribution Width 13.3, Neutrophils (%) (Auto) 82.1 H, Lymphocytes (%) (Auto) 9.4 L, Monocytes (%) (Auto) 5.3 H, Eosinophils (%) (Auto) 2.5, Basophils (%) (Auto) 0.4, Neutrophils # (Auto) 10.0 H, Lymphocytes # (Auto) 1.1 L, Monocytes # (Auto) 0.6, Eosinophils # (Auto) 0.3, Basophils # (Auto) 0.1 03/30/19 15:53 03/31/19 05:30 Red Blood Count 3.32 L, Mean Corpuscular Volume 88.0, Mean Corpuscular Hemoglobin 28.0, Mean Corpuscular Hemoglobin Concent 31.8 L, Red Cell Distribution Width 13.1, Neutrophils (%) (Auto) 93.8 H, Lymphocytes (%) (Auto) 4.8 L, Monocytes (%) (Auto) 0.7, Eosinophils (%) (Auto) 0.0, Basophils (%) (Auto) 0.3, Neutrophils # (Auto) 7.2, Lymphocytes # (Auto) 0.4 L, Monocytes # (Auto) 0.1, Eosinophils # (Auto) 0.0, Basophils # (Auto) 0.0, Calcium Level 7.8 L, Aspartate Amino Transf (AST/SGOT) 8, Alanine Aminotransferase (ALT/SGPT) 31, Alkaline Phosphatase 74, Total Bilirubin 0.4, Total Protein 6.7, Albumin 2.7 L Vital Signs Date Time Temp Pulse Resp B/P (MAP) Pulse Ox O2 Delivery O2 Flow Rate FiO2 03/31/19 14:00 96.9 78 18 145/70 (95) 94 4.0 03/30/19 19:25 Nasal Cannula I&O- Last 24 Hours up to 6 AM 03/31/19 06:00 Intake Total 820 ml Output Total 200 ml Balance 620 ml RAMESH VIERA DO Mar 31, 2019 15:24
[2019-03-31 16:24] LABS: CK-MB VALUE MASS 4.2 NG/ML (<3.6); CPK CREATINE PHOSPHOKINASE 121 U/L (26-192); MB/CK RELATIVE INDEX 3.47 (< OR =4); TROPONIN I < 0.02 NG/ML (< 0.10)
--- NOTE | 2019-03-31 17:01 | IPNPDOC ---
Text Note Date of Service The patient was seen on 03/31/19. NOTE Called to the patient's bedside to assess the patient for complaints of chest pain after the patient requested to see a different provider. Patient states that she developed sternal chest pain radiating to the left side when she was in the bathroom and started to have a coughing spell. She states that the pain is reproducible when pushing on the chest wall, and is worst when she is cough. She denies any associated diaphoresis, pain radiating to the jaw, numbness/tingling to the upper extremities, abdominal pain, or any palpitations General: Awake, Alert, Oriented x 3, In no acute distress HEENT: NT/AT JVD: No JVD Chest/Heart: Normal Rate, Normal S1,S2. Reproducible chest wall pain around sternal region with palpation. No superficial lesions noted. Lungs: Diminished breath sounds diffusely Extremities: No erythema, no tenderness Chest Pain likely MSK in Etiology EKG with no acute ST changes Initial Troponin negative, will serially trend x 3 Telemetry ordered Hyperglycemia likely 2/2 Steroid Use ISS coverage, and additional dose of Levemir already administered Dose of IV Solumedrol decreased, with next dose to be given tomorrow We will continue to monitor glucose levels and provide coverage accordingly. VS,Fishbone, I+O VS, Fishbone, I+O Laboratory Tests 03/31/19 05:30 Red Blood Count 3.32 L, Mean Corpuscular Volume 88.0, Mean Corpuscular Hemoglobin 28.0, Mean Corpuscular Hemoglobin Concent 31.8 L, Red Cell Distribution Width 13.1, Neutrophils (%) (Auto) 93.8 H, Lymphocytes (%) (Auto) 4.8 L, Monocytes (%) (Auto) 0.7, Eosinophils (%) (Auto) 0.0, Basophils (%) (Auto) 0.3, Neutrophils # (Auto) 7.2, Lymphocytes # (Auto) 0.4 L, Monocytes # (Auto) 0.1, Eosinophils # (Auto) 0.0, Basophils # (Auto) 0.0, Calcium Level 7.8 L, Aspartate Amino Transf (AST/SGOT) 8, Alanine Aminotransferase (ALT/SGPT) 31, Alkaline Phosphatase 74, Total Bilirubin 0.4, Total Protein 6.7, Albumin 2.7 L Vital Signs Date Time Temp Pulse Resp B/P (MAP) Pulse Ox O2 Delivery O2 Flow Rate FiO2 03/31/19 15:04 83 20 133/75 (94) 94 Room Air 03/31/19 14:00 96.9 4.0 I&O- Last 24 Hours up to 6 AM 03/31/19 06:00 Intake Total 820 ml Output Total 200 ml Balance 620 ml JUSTINE ZHANG MD Mar 31, 2019 17:00
[2019-03-31] MEDS: ATORVASTATIN 20 MG TAB PO SCH (20:26)
[2019-03-31] MEDS: cefTRIAXone SOD 1 GM in D5W 50 ML IV SCH (20:27)
[2019-03-31] MEDS ORDERED: CALCIUM CARBONATE 500 MG CHEW U/D PO ONE (20:45)
[2019-03-31] MEDS ORDERED: HumaLOG INSULIN (NovoLOG) PER UNIT SC STA (21:23)
--- NOTE | 2019-03-31 21:49 | ECGEPIP ---
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
[2019-03-31 22:00] VITALS: BP 168/86
[2019-04-01] VITALS (8 sets, daily range): BP systolic 140–189; BP diastolic 71–87; O2SAT 91–92
[2019-04-01 00:32] LABS: BLOOD UREA NITROGEN 73 MG/DL (7-18); CALCIUM LEVEL 7.8 MG/DL (8.8-10.2); CARBON DIOXIDE LEVEL 17 MEQ/L (21-32); CHLORIDE LEVEL 108 MEQ/L (98-107); CK-MB VALUE MASS 4.5 NG/ML (<3.6); CPK CREATINE PHOSPHOKINASE 113 U/L (26-192); CREATININE FOR GFR 2.36 MG/DL (0.55-1.30); GLOMERULAR FILTRATION RATE 22.1 (>45); GLUCOSE, FASTING 610 MG/DL (70-100); MB/CK RELATIVE INDEX 3.98 (< OR =4); POTASSIUM SERUM 4.3 MEQ/L (3.5-5.1); SODIUM LEVEL 137 MEQ/L (136-145); TROPONIN I < 0.02 NG/ML (< 0.10)
[2019-04-01] MEDS ORDERED: HumaLOG INSULIN (NovoLOG) PER UNIT SC ONE ×2 (00:45→03:15)
[2019-04-01] MEDS: ACETAMINOPHEN 500 MG TAB PO PRN ×2 (00:57→22:03)
[2019-04-01 06:45] LABS: CK-MB VALUE MASS 4.1 NG/ML (<3.6); CPK CREATINE PHOSPHOKINASE 94 U/L (26-192); MB/CK RELATIVE INDEX 4.36 (< OR =4)
--- NOTE | 2019-04-01 07:52 | ECGEPIP ---
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
[2019-04-01] MEDS: BISOPROLOL FUMARATE 10 MG TAB PO SCH (08:11)
[2019-04-01] MEDS: ASPIRIN 81 MG ENTERIC TAB PO SCH (08:11)
[2019-04-01] MEDS: TIOTROPIUM INHALER/CAPSULE (SPIRIVA) INH SCH (08:11)
[2019-04-01] MEDS: IPRATROPIUM 0.5MG/ALBUTEROL 2.5MG INH SOL UD 3ML (DUONEB)(J7620) NEB SCH ×3 (08:11→20:00)
[2019-04-01] MEDS: amLODIPine 10 MG TAB PO SCH (08:12)
[2019-04-01] MEDS: ENOXAPARIN 40 MG/0.4 ML SYRINGE (J1650) SC SCH (08:14)
[2019-04-01] MEDS: LEVEMIR (INSULIN DETEMIR) 1 UNITS/0.01ML SC SCH (08:15)
[2019-04-01] MEDS: HumaLOG INSULIN (NovoLOG) PER UNIT SC SCH ×4 (08:15→23:22)
[2019-04-01] MEDS: PANTOPRAZOLE 40MG INJ (PROTONIX) (C9113) IV SCH (08:15)
[2019-04-01] MEDS: AZITHROMYCIN INJ 500 MG, VIAL MATE ADAPTER 1 EACH in D5W 250 ML IV SCH (08:16)
[2019-04-01] MEDS ORDERED: predniSONE 20 MG TAB PO ONE (10:45)
[2019-04-01 11:29] LABS: BASO % 0.1 % (0.0-1.0); HEMATOCRIT 26.2 % (36.0-47.0); HEMOGLOBIN 8.4 g/dl (12.0-15.5); LYMPH # 0.4 10^3/uL (1.5-4.5); LYMPH % 3.3 % (24.0-44.0); MEAN CORPUSCULAR HEMOGLOBIN 28.5 pg (27.0-33.0); MEAN CORPUSCULAR HGB CONC 32.1 g/dl (32.0-36.5); MEAN CORPUSCULAR VOLUME 88.8 fl (80.0-96.0); MONO # 0.7 10^3/uL (0.0-0.8); MONO % 5.2 % (0.0-5.0); NEUTROPHILS # 11.8 10^3/uL (1.8-7.7); NEUTROPHILS % 90.9 % (36.0-66.0); PLATELET COUNT, AUTOMATED 204 10^3/uL (150-450); RED BLOOD COUNT 2.95 10^6/uL (4.00-5.40)
[2019-04-01 11:49] LABS: ALBUMIN 2.8 GM/DL (3.2-5.2); ALT/SGPT 31 U/L (12-78); BILIRUBIN,TOTAL < 0.1 MG/DL (0.2-1.0); BLOOD UREA NITROGEN 77 MG/DL (7-18); CALCIUM LEVEL 7.9 MG/DL (8.8-10.2); CARBON DIOXIDE LEVEL 18 MEQ/L (21-32); CHLORIDE LEVEL 111 MEQ/L (98-107); CREATININE FOR GFR 2.19 MG/DL (0.55-1.30); GLOMERULAR FILTRATION RATE 24.1 (>45); GLUCOSE, FASTING 360 MG/DL (70-100); MAGNESIUM LEVEL 2.4 MG/DL (1.8-2.4); POTASSIUM SERUM 4.6 MEQ/L (3.5-5.1); SODIUM LEVEL 140 MEQ/L (136-145); TOTAL PROTEIN 6.3 GM/DL (6.4-8.2)
--- NOTE | 2019-04-01 13:51 | IPNPDOC ---
Text Note Date of Service The patient was seen on 04/01/19. NOTE Subjective: Patient was seen and examined at the bedside. . Currently, patient reports her breathing is doing better. She denies any chest pain or palpitation at this time. . She reports that she still has a cough. Denies any nausea, vomiting, abdominal pain, constipation, diarrhea, or urinary discomfort. Objective: Vitals (See below) General: Lying in bed, no acute distress, comfortable, AAOx3 HEENT: NC, AT CVS: RRR, +S1S2 Lungs: Fair air entry b/l, -w/r/r Abdomen: Soft, ND, NT Extremities: - Edema, - Calf tenderness Assessment and plan: Shortness of breath - likely 2/2 hypoxia - likely 2/2 multifactorial etiology - Clinically has reported some improvement in her breathing, but still reports a cough - Remains afebrile and hemodynamically stable - Still requiring supplemental oxygen. Will continue to titrate down as breathing improves - Leukocytosis - possibly 2/2 corticosteroids - CT chest 03/30: Findings most compatible with multifocal pneumonia and follow up to resolution is recommended. Acute COPD exacerbation - Will transition to Prednisone; Will DC Solumedrol - c/w inhaled therapy as ordered PNA; community acquired - c/w Ceftriaxone and Azithromycin (Day #3) s/p Chest pain - likely 2/2 musculoskeletal - Reproducible chest pain upon palpation - EKG noted - Troponin x2 negative - c/w Heading pads CKD3 - Baseline Cr of 1.5-1.8; mildly elevated from baseline - HCTZ on hold; will resume within 24 hours - Follow with Nephrology as an outpatient IDDM2 with hyperglycemia - c/w ISS - c/w Adjusted dose of Levemir - amount of corticosteroids reduced Mild / moderate pulmonary HTN - ECHO 03/2018 noted MARIZA on CPAP - non-complaint with CPAP GI prophylaxis - c/w Protonix DVT prophylaxis - c/w Lovenox VS,Fishbone, I+O VS, Fishbone, I+O Laboratory Tests 03/31/19 23:45 Calcium Level 7.8 L, Total Creatine Kinase 113 04/01/19 05:40 Calcium Level 7.9 L, Total Creatine Kinase 94, Red Blood Count 2.95 L, Mean C orpuscular Volume 88.8, Mean Corpuscular Hemoglobin 28.5, Mean Corpuscular Hemoglobin Concent 32.1, Red Cell Distribution Width 13.2, Neutrophils (%) (Auto) 90.9 H, Lymphocytes (%) (Auto) 3.3 L, Monocytes (%) (Auto) 5.2 H, Eosinophils (%) (Auto) 0.0, Basophils (%) (Auto) 0.1, Neutrophils # (Auto) 11.8 H, Lymphocytes # (Auto) 0.4 L, Monocytes # (Auto) 0.7, Eosinophils # (Auto) 0.0, Basophils # (Auto) 0.0, Aspartate Amino Transf (AST/SGOT) 5 L, Alanine Aminotransferase (ALT/SGPT) 31, Alkaline Phosphatase 72, Total Bilirubin < 0.1 #L, Total Protein 6.3 L, Albumin 2.8 L Vital Signs Date Time Temp Pulse Resp B/P (MAP) Pulse Ox O2 Delivery O2 Flow Rate FiO2 04/01/19 10:39 96.0 72 158/85 (109) 91 04/01/19 08:11 24 03/31/19 22:00 1.0 03/31/19 15:04 Room Air I&O- Last 24 Hours up to 6 AM 04/01/19 06:00 Intake Total 1470 ml Output Total 1250 ml Balance 220 ml SONDRA ALEJANDRE MD Apr 01, 2019 13:51
[2019-04-01 16:42] LABS: CK-MB VALUE MASS 4.7 NG/ML (<3.6); MB/CK RELATIVE INDEX 4.39 (< OR =4)
[2019-04-01] MEDS: cefTRIAXone SOD 1 GM in D5W 50 ML IV SCH (22:03)
[2019-04-01 23:19] LABS: HEMOGLOBIN A1c 8.4 %
[2019-04-01] MEDS: ATORVASTATIN 20 MG TAB PO SCH (23:21)
[2019-04-02] VITALS (7 sets, daily range): BP systolic 141–166; BP diastolic 68–84
[2019-04-02] MEDS: IPRATROPIUM 0.5MG/ALBUTEROL 2.5MG INH SOL UD 3ML (DUONEB)(J7620) NEB SCH ×4 (01:38→20:21)
[2019-04-02] MEDS: LEVEMIR (INSULIN DETEMIR) 1 UNITS/0.01ML SC SCH ×3 (02:14→20:45)
[2019-04-02] MEDS ORDERED: HumaLOG INSULIN (NovoLOG) PER UNIT SC ONE (03:30)
[2019-04-02 06:46] LABS: HEMATOCRIT 26.4 % (36.0-47.0); HEMOGLOBIN 8.5 g/dl (12.0-15.5); LYMPH # 0.4 10^3/uL (1.5-4.5); LYMPH % 3.6 % (24.0-44.0); MEAN CORPUSCULAR HEMOGLOBIN 27.7 pg (27.0-33.0); MEAN CORPUSCULAR HGB CONC 32.2 g/dl (32.0-36.5); MONO # 0.7 10^3/uL (0.0-0.8); MONO % 5.3 % (0.0-5.0); NEUTROPHILS % 89.8 % (36.0-66.0); PLATELET COUNT, AUTOMATED 210 10^3/uL (150-450); RED BLOOD COUNT 3.07 10^6/uL (4.00-5.40); WHITE BLOOD COUNT 12.2 10^3/uL (4.0-10.0)
[2019-04-02 07:14] LABS: CALCIUM LEVEL 7.5 MG/DL (8.8-10.2); CREATININE FOR GFR 2.18 MG/DL (0.55-1.30); GLOMERULAR FILTRATION RATE 24.3 (>45); MAGNESIUM LEVEL 2.5 MG/DL (1.8-2.4); POTASSIUM SERUM 4.3 MEQ/L (3.5-5.1)
[2019-04-02] MEDS: TIOTROPIUM INHALER/CAPSULE (SPIRIVA) INH SCH (07:19)
[2019-04-02] MEDS: ENOXAPARIN 40 MG/0.4 ML SYRINGE (J1650) SC SCH (08:20)
[2019-04-02] MEDS: PANTOPRAZOLE 40MG INJ (PROTONIX) (C9113) IV SCH (08:20)
[2019-04-02] MEDS: AZITHROMYCIN INJ 500 MG, VIAL MATE ADAPTER 1 EACH in D5W 250 ML IV SCH (08:20)
[2019-04-02] MEDS: amLODIPine 10 MG TAB PO SCH (08:21)
[2019-04-02] MEDS: predniSONE 20 MG TAB PO SCH (08:21)
[2019-04-02] MEDS: ASPIRIN 81 MG ENTERIC TAB PO SCH (08:21)
[2019-04-02] MEDS: BISOPROLOL FUMARATE 10 MG TAB PO SCH (08:22)
[2019-04-02] MEDS: HumaLOG INSULIN (NovoLOG) PER UNIT SC SCH ×7 (08:22→20:45)
--- NOTE | 2019-04-02 11:08 | IPNPDOC ---
Text Note Date of Service The patient was seen on 04/02/19. NOTE Subjective: Patient was seen and examined at the bedside. Report shortness of breath. Denies any significant cough. Denies chest pain or palpitations. Denies nausea, vomiting, abdominal pain, still reports some lower extremity swelling. Objective: Vitals (See below) General: Lying in bed, no acute distress, comfortable, AAOx3 HEENT: NC, AT CVS: RRR, +S1S2 Lungs: Fair air entry b/l, there are no appreciable wheezing, rhonchi or rales Abdomen: Soft, nondistended, nontender Extremities: Patient does experience 1+ pitting edema, - Calf tenderness Assessment and plan: Shortness of breath - likely 2/2 hypoxia - likely 2/2 multifactorial etiology - Clinically has reported some improvement in her breathing, but still reports a cough - Remains afebrile and hemodynamically stable - Still requiring supplemental oxygen. Will continue to titrate down as breathing improves - Physical without any adventitious lung sounds - Leukocytosis - possibly 2/2 corticosteroids - CT chest 03/30: Findings most compatible with multifocal pneumonia and follow up to resolution is recommended. Acute COPD exacerbation - c/w Prednisone; s/p Solumedrol - c/w inhaled therapy as ordered PNA; community acquired - c/w Ceftriaxone and Azithromycin (Day #4) s/p Chest pain - likely 2/2 musculoskeletal - Reproducible chest pain upon palpation - EKG noted - Troponin x2 negative - c/w Heading pads CKD3 - Baseline Cr of 1.5-1.8; mildly elevated from baseline - HCTZ on hold; will resume within 24 hours - Follow with Nephrology as an outpatient IDDM2 with hyperglycemia - c/w ISS - c/w Adjusted dose of Levemir - amount of corticosteroids reduced Mild / moderate pulmonary HTN - ECHO 03/2018 noted - Will give one dose of Furosemide 40 IV MARIZA on CPAP - Non-complaint with CPAP GI prophylaxis - c/w Protonix DVT prophylaxis - c/w Lovenox VS,Fishbone, I+O VS, Fishbone, I+O Laboratory Tests 04/02/19 06:16 Red Blood Count 3.07 L, Mean Corpuscular Volume 86.0, Mean Corpuscular Hemoglobin 27.7, Mean Corpuscular Hemoglobin Concent 32.2, Red Cell Distribution Width 13.6, Neutrophils (%) (Auto) 89.8 H, Lymphocytes (%) (Auto) 3.6 L, Monocytes (%) (Auto) 5.3 H, Eosinophils (%) (Auto) 0.0, Basophils (%) (Auto) 0.0, Neutrophils # (Auto) 11.0 H, Lymphocytes # (Auto) 0.4 L, Monocytes # (Auto) 0.7, Eosinophils # (Auto) 0.0, Basophils # (Auto) 0.0, Calcium Level 7.5 L Vital Signs Date Time Temp Pulse Resp B/P (MAP) Pulse Ox O2 Delivery O2 Flow Rate FiO2 04/02/19 08:21 80 164/86 04/02/19 06:00 98.4 20 95 2.0 04/01/19 16:19 Nasal Cannula I&O- Last 24 Hours up to 6 AM 04/02/19 06:00 Intake Total 1670 ml Output Total 2650 ml Balance -980 ml SONDRA ALEJANDRE MD Apr 02, 2019 11:08
[2019-04-02] MEDS ORDERED: FUROSEMIDE 40 MG/4 ML VIAL (J1940) IV ONE (11:15)
[2019-04-02] MEDS: ACETAMINOPHEN 500 MG TAB PO PRN (13:51)
[2019-04-02] MEDS: ATORVASTATIN 20 MG TAB PO SCH (20:44)
[2019-04-02] MEDS: cefTRIAXone SOD 1 GM in D5W 50 ML IV SCH (20:44)
[2019-04-03] VITALS (8 sets, daily range): BP systolic 140–162; BP diastolic 69–98; O2SAT 91–92
[2019-04-03] MEDS: IPRATROPIUM 0.5MG/ALBUTEROL 2.5MG INH SOL UD 3ML (DUONEB)(J7620) NEB SCH ×5 (01:35→20:19)
[2019-04-03 06:51] LABS: BASO % 0.2 % (0.0-1.0); HEMATOCRIT 27.9 % (36.0-47.0); HEMOGLOBIN 9.2 g/dl (12.0-15.5); LYMPH # 0.9 10^3/uL (1.5-4.5); LYMPH % 7.6 % (24.0-44.0); MEAN CORPUSCULAR HEMOGLOBIN 28.3 pg (27.0-33.0); MEAN CORPUSCULAR VOLUME 85.8 fl (80.0-96.0); MONO # 0.9 10^3/uL (0.0-0.8); MONO % 8.1 % (0.0-5.0); NEUTROPHILS # 9.3 10^3/uL (1.8-7.7); PLATELET COUNT, AUTOMATED 232 10^3/uL (150-450); RED BLOOD COUNT 3.25 10^6/uL (4.00-5.40); WHITE BLOOD COUNT 11.5 10^3/uL (4.0-10.0)
[2019-04-03 07:12] LABS: GLOMERULAR FILTRATION RATE 26.8 (>45); MAGNESIUM LEVEL 2.4 MG/DL (1.8-2.4); POTASSIUM SERUM 3.9 MEQ/L (3.5-5.1)
[2019-04-03] MEDS ORDERED: FUROSEMIDE 40 MG/4 ML VIAL (J1940) IV ONE (07:30)
[2019-04-03] MEDS: HumaLOG INSULIN (NovoLOG) PER UNIT SC SCH ×7 (07:30→20:07)
[2019-04-03] MEDS: TIOTROPIUM INHALER/CAPSULE (SPIRIVA) INH SCH (08:27)
[2019-04-03] MEDS: CEFDINIR 300 MG CAP (OMNICEF) PO SCH ×2 (09:00→20:07)
[2019-04-03] MEDS: AZITHROMYCIN 250 MG TAB PO SCH (09:00)
[2019-04-03] MEDS: BISOPROLOL FUMARATE 10 MG TAB PO SCH (09:12)
[2019-04-03] MEDS: ASPIRIN 81 MG ENTERIC TAB PO SCH (09:13)
[2019-04-03] MEDS: predniSONE 20 MG TAB PO SCH (09:13)
[2019-04-03] MEDS: amLODIPine 10 MG TAB PO SCH (09:13)
[2019-04-03] MEDS: PANTOPRAZOLE 40MG INJ (PROTONIX) (C9113) IV SCH (09:13)
[2019-04-03] MEDS: LEVEMIR (INSULIN DETEMIR) 1 UNITS/0.01ML SC SCH ×2 (09:14→20:08)
[2019-04-03] MEDS: ENOXAPARIN 40 MG/0.4 ML SYRINGE (J1650) SC SCH (09:14)
[2019-04-03] MEDS: ACETAMINOPHEN 500 MG TAB PO PRN (09:47)
--- NOTE | 2019-04-03 10:18 | IPNPDOC ---
Text Note Date of Service The patient was seen on 04/03/19. NOTE Subjective: Patient was seen and examined at the bedside. Patient is a report shortness of breath. Eyes any current chest pain or palpitations. Denies nausea, vomiting, abdominal pain, constipation, diarrhea, or urinary discomfort. Objective: Vitals (See below) General: Lying in bed, no acute distress, comfortable, AAOx3 HEENT: NC, AT CVS: RRR, +S1S2 Lungs: Again air entry remains fair bilaterally, without any appreciable wheezing, rhonchi or rales Abdomen: Remains soft without distention or tenderness. Is morbidly obese Extremities: Patient does experience trace/1+ pitting edema bilaterally, - Calf tenderness Assessment and plan: Shortness of breath - likely 2/2 hypoxia - likely 2/2 multifactorial etiology - Clinically has reported some improvement in her breathing, but still reports a cough - Remains afebrile and hemodynamically stable - Still requiring supplemental oxygen; will continue to taper - Physical without any adventitious lung sounds - Leukocytosis - possibly 2/2 [address] - [address] chest 03/30: Findings most compatible with multifocal pneumonia and follow up to resolution is recommended. Acute COPD exacerbation - c/w Prednisone; s/p Solumedrol - c/w inhaled therapy as ordered PNA; community acquired - Will start Cefdinir and Azithromycin PO; Will DC Ceftriaxone and Katerina thromycin IV (Antibiotic day #5) s/p Chest pain - likely 2/2 musculoskeletal - Reproducible chest pain upon palpation - EKG noted - Troponin x2 negative - c/w Heading pads HTN - BP moderately controlled - c/w Amlodipine and Bisoprolol - Chlorthalidone on hold; c/w Furosemide dose today CKD3 - Baseline Cr of 1.5-1.8; mildly elevated from baseline - Follow with Nephrology as an outpatient IDDM2 with hyperglycemia - c/w ISS - c/w Adjusted dose of Levemir - amount of corticosteroids reduced Mild / moderate pulmonary HTN - ECHO 03/2018 noted - Will provide additional dose of Furosemide 40 IV MARIZA on CPAP - Non-complaint with CPAP GI prophylaxis - c/w Protonix DVT prophylaxis - c/w Lovenox Disposition: - Anticipate discharge tomorrow VS,Fishbone, I+O VS, Fishbone, I+O Laboratory Tests 04/03/19 06:24 Red Blood Count 3.25 L, Mean Corpuscular Volume 85.8, Mean Corpuscular Hemoglobin 28.3, Mean Corpuscular Hemoglobin Concent 33.0, Red Cell Distribution Width 13.5, Neutrophils (%) (Auto) 81.0 H, Lymphocytes (%) (Auto) 7.6 L, Monocytes (%) (Auto) 8.1 H, Eosinophils (%) (Auto) 0.0, Basophils (%) (Auto) 0.2, Neutrophils # (Auto) 9.3 H, Lymphocytes # (Auto) 0.9 L, Monocytes # (Auto) 0.9 H, Eosinophils # (Auto) 0.0, Basophils # (Auto) 0.0, Calcium Level 8.0 L Vital Signs Date Time Temp Pulse Resp B/P (MAP) Pulse Ox O2 Delivery O2 Flow Rate FiO2 04/03/19 09:13 83 162/98 04/03/19 06:00 97.2 19 93 2.0 04/01/19 16:19 Nasal Cannula I&O- Last 24 Hours up to 6 AM 04/03/19 06:00 Intake Total 1070 ml Output Total 4500 ml Balance -3430 ml SONDRA ALEJANDRE MD Apr 03, 2019 10:18
[2019-04-03] MEDS: ALBUTEROL SULFATE 2.5 MG/0.5 ML INH NEB SOLN NEB PRN (14:47)
[2019-04-03] MEDS: ATORVASTATIN 20 MG TAB PO SCH (20:07)
[2019-04-03] MEDS: PERCOCET 5MG/325MG TAB PO PRN (21:22)
[2019-04-04 02:00] VITALS: BP 150/72
[2019-04-04] MEDS: IPRATROPIUM 0.5MG/ALBUTEROL 2.5MG INH SOL UD 3ML (DUONEB)(J7620) NEB SCH ×2 (02:00→07:57)
[2019-04-04 06:00] VITALS: BP 152/70
[2019-04-04 06:27] LABS: BASO % 0.1 % (0.0-1.0); EOS % 0.1 % (0.0-3.0); HEMATOCRIT 29.3 % (36.0-47.0); HEMOGLOBIN 9.6 g/dl (12.0-15.5); LYMPH # 1.2 10^3/uL (1.5-4.5); LYMPH % 9.2 % (24.0-44.0); MEAN CORPUSCULAR HEMOGLOBIN 27.6 pg (27.0-33.0); MEAN CORPUSCULAR HGB CONC 32.8 g/dl (32.0-36.5); MEAN CORPUSCULAR VOLUME 84.2 fl (80.0-96.0); MONO # 1.2 10^3/uL (0.0-0.8); MONO % 9.2 % (0.0-5.0); NEUTROPHILS # 10.5 10^3/uL (1.8-7.7); PLATELET COUNT, AUTOMATED 255 10^3/uL (150-450); RED BLOOD COUNT 3.48 10^6/uL (4.00-5.40); WHITE BLOOD COUNT 13.4 10^3/uL (4.0-10.0)
[2019-04-04 06:39] LABS: CREATININE FOR GFR 2.01 MG/DL (0.55-1.30); GLOMERULAR FILTRATION RATE 26.6 (>45); MAGNESIUM LEVEL 2.4 MG/DL (1.8-2.4); POTASSIUM SERUM 3.6 MEQ/L (3.5-5.1)
[2019-04-04] MEDS: HumaLOG INSULIN (NovoLOG) PER UNIT SC SCH ×6 (07:30→12:34)
[2019-04-04] MEDS: TIOTROPIUM INHALER/CAPSULE (SPIRIVA) INH SCH (07:57)
[2019-04-04] MEDS: ENOXAPARIN 40 MG/0.4 ML SYRINGE (J1650) SC SCH (08:44)
[2019-04-04] MEDS: ASPIRIN 81 MG ENTERIC TAB PO SCH (08:44)
[2019-04-04] MEDS: PANTOPRAZOLE 40MG INJ (PROTONIX) (C9113) IV SCH (08:44)
[2019-04-04] MEDS: AZITHROMYCIN 250 MG TAB PO SCH (08:44)
[2019-04-04] MEDS: predniSONE 20 MG TAB PO SCH (08:44)
[2019-04-04] MEDS: LEVEMIR (INSULIN DETEMIR) 1 UNITS/0.01ML SC SCH (08:45)
[2019-04-04] MEDS: amLODIPine 10 MG TAB PO SCH (08:47)
[2019-04-04 08:48] VITALS: BP 162/98
[2019-04-04] MEDS: BISOPROLOL FUMARATE 10 MG TAB PO SCH (08:48)
[2019-04-04] MEDS: CEFDINIR 300 MG CAP (OMNICEF) PO SCH (09:00)
[2019-04-04] MEDS ORDERED: CEFD300CAP PO (09:46)
[2019-04-04] MEDS ORDERED: INSUDET SC (09:46)
[2019-04-04] MEDS ORDERED: PRED10TA2 PO (09:46)
[2019-04-04] MEDS ORDERED: AZIT-12 PO (09:46)
[2019-04-04 10:00] VITALS: BP 140/60
[2019-04-04 11:26] VITALS: O2SAT 92
--- NOTE | 2019-04-04 12:02 | DS.PDOC ---
Discharge Summary General Date of Admission Mar 30, 2019 at 18:27 Date of Discharge 04/04/2019 Discharge Summary PROCEDURES PERFORMED DURING STAY: [None]. ADMITTING DIAGNOSES / DISCHARGE DIAGNOSES: Shortness of breath - likely 2/2 hypoxia - likely 2/2 multifactorial etiology; 1) Acute COPD exacerbation, 2) PNA; community acquired s/p Chest pain - likely 2/2 musculoskeletal HTN CKD3 IDDM2 with hyperglycemia Mild / moderate pulmonary HTN MARIZA on CPAP GI prophylaxis DVT prophylaxis COMPLICATIONS/CHIEF COMPLAINT: Shortness of breath HISTORY OF PRESENT ILLNESS: HOSPITAL COURSE: Shortness of breath - likely 2/2 hypoxia - likely 2/2 multifactorial etiology - Clinically has reported some improvement in her breathing, but still reports a cough - Remains afebrile and hemodynamically stable - Has been tapered off of supplemental oxygen completely; saturating well on room air - Physical without any adventitious lung sounds - Leukocytosis - possibly 2/2 corticosteroids - CT chest 03/30: Findings most compatible with multifocal pneumonia and follow up to resolution is recommended. - Has cleared physical therapy for discharge home Acute COPD exacerbation - c/w Prednisone; s/p Solumedrol - c/w inhaled therapy as ordered PNA; community acquired - c/w Cefdinir and Azithromycin PO; Will DC Ceftriaxone and Azithromycin IV (Antibiotic day #6) - will complete antibiotic course as an outpatient s/p Chest pain - likely 2/2 musculoskeletal - Reproducible chest pain upon palpation - EKG noted - Troponin x2 negative - c/w Heading pads HTN - BP moderately controlled - c/w Amlodipine and Bisoprolol - Will resume chlorthalidone on discharge CKD3 - Baseline Cr of 1.5-1.8; mildly elevated from baseline - Follow with Nephrology as an outpatient IDDM2 with hyperglycemia - c/w ISS - c/w Adjusted dose of Levemir; as an outpatient will continue with adjusted dose until corticosteroid have stopped Mild / moderate pulmonary HTN - ECHO 03/2018 noted - Will resume Chlorthalidone on discharge MARIZA on CPAP - Non-complaint with CPAP GI prophylaxis - c/w Protonix DVT prophylaxis - c/w Lovenox DISCHARGE MEDICATIONS: Please see below. ALLERGIES: Please see below. PHYSICAL EXAMINATION ON DISCHARGE: Vitals (See below) General: Lying in bed, no acute distress, comfortable, AAOx3 HEENT: NC, AT CVS: +S1S2 Lungs: Fair air entry bilaterally without rhonchi, rales or wheezing Abdomen: Soft, nondistended, nontender, morbidly obese Extremities: Patient does experience trace/1+ pitting edema bilaterally, - Calf tenderness LABORATORY DATA: Please see below. ACTIVITY: [As tolerated]. DISCHARGE PLAN: Follow-up with Lili Wray within the next 7 days Remain compliant with treatment plan and medications Return to the ER if you experience any problems DISPOSITION: Home with services DISCHARGE CONDITION: [Stable]. TIME SPENT ON DISCHARGE: 35 minutes Vital Signs/I&Os Vital Signs Date Time Temp Pulse Resp B/P (MAP) Pulse Ox O2 Delivery O2 Flow Rate FiO2 04/04/19 11:26 92 Room Air 04/04/19 08:48 80 162/98 04/04/19 06:00 98.4 20 2.0 I&O- Last 24 Hours up to 6 AM 04/04/19 06:00 Intake Total 1380 ml Output Total 4600 ml Balance -3220 ml Laboratory Data Labs 24H Laboratory Tests 2 04/03/19 11:58: Bedside Glucose (Misc Panel) 361H 04/03/19 16:36: Bedside Glucose (Misc Panel) 435H 04/03/19 19:58: Bedside Glucose (Misc Panel) 456H 04/04/19 06:10: Immature Granulocyte % (Auto) 3.4H, White Blood Count 13.4H, Red Blood Count 3.48L, Hemoglobin 9.6L, Hematocrit 29.3L, Mean Corpuscular Volume 84.2, Mean Corpuscular Hemoglobin 27.6, Mean Corpuscular Hemoglobin Concent 32.8, Red Cell Distribution Width 13.7, Platelet Count 255, Neutrophils (%) (Auto) 78.0H, Lymphocytes (%) (Auto) 9.2L, Monocytes (%) (Auto) 9.2H, Eosinophils (%) (Auto) 0.1, Basophils (%) (Auto) 0.1, Neutrophils # (Auto) 10.5H, Lymphocytes # (Auto) 1.2L, Monocytes # (Auto) 1.2H, Eosinophils # (Auto) 0.0, Basophils # (Auto) 0.0, Nucleated Red Blood Cells % (auto) 0.0, Anion Gap 8, Glomerular Filtration Rate 26.6L, Blood Urea Nitrogen 63H, Creatinine 2.01H, Sodium Level 145, Potassium Level 3.6, Chloride Level 114H, Carbon Dioxide Level 23, Calcium Level 8.0L, Magnesium Level 2.4 CBC/BMP Laboratory Tests 04/04/19 06:10 Red Blood Count 3.48 L, Mean Corpuscular Volume 84.2, Mean Corpuscular Hemoglobin 27.6, Mean Corpuscular Hemoglobin Concent 32.8, Red Cell Distribution Width 13.7, Neutrophils (%) (Auto) 78.0 H, Lymphocytes (%) (Auto) 9.2 L, Monocytes (%) (Auto) 9.2 H, Eosinophils (%) (Auto) 0.1, Basophils (%) (Auto) 0.1, Neutrophils # (Auto) 10.5 H, Lymphocytes # (Auto) 1.2 L, Monocytes # (Auto) 1.2 H, Eosinophils # (Auto) 0.0, Basophils # (Auto) 0.0, Calcium Level 8.0 L FSBS Laboratory Tests Test 04/03/19 11:58 04/03/19 16:36 04/03/19 19:58 Range/Units Bedside Glucose (Misc Panel) 361 435 456 80-115 MG/DL Microbiology Microbiology 03/30/19 Blood Culture - Preliminary, Resulted No Growth after 72 hours. All specime... 03/30/19 Blood Culture - Preliminary, Resulted No Growth after 72 hours. All specime... Discharge Medications Scheduled Amlodipine Besylate (Amlodipine Besylate) 10 Mg Tab, 10 MG PO DAILY, (Reported) Aspirin (Aspirin EC) 81 Mg Tabec, 81 MG PO DAILY, (Reported) Atorvastatin Calcium (Atorvastatin Calcium) 80 Mg Tab, 80 MG PO QHS, (Reported) Azithromycin (Azithromycin) 250 Mg Tablet, 500 MG PO DAILY Bisoprolol Fumarate (Bisoprolol Fumarate) 10 Mg Tab, 10 MG PO DAILY, (Reported) Cefdinir (Cefdinir) 300 Mg Capsule, 300 MG PO BID Chlorthalidone (Chlorthalidone) 25 Mg Tab, 25 MG PO DAILY, (Reported) Dulaglutide (Trulicity) 1.5 Mg/0.5 Ml Inj, 1.5 MG SC 1XWK, (Reported) PT HASN'T TAKEN IN ABOUT THREE WEEKS DUE TO COST Ezetimibe (Ezetimibe) 10 Mg Tablet, 10 MG PO QHS, (Reported) Insulin Aspart (Novolog Flexpen) 100 Unit/1 Ml Insuln.pen, 2 UNITS SC AC, (Reported) Insulin Detemir (Levemir) 1 Units/0.01 Ml Susp, 40 UNITS SC ASDIRECTED 40 morning and 20 units evening while on prednisone; then return to standard dosing Prednisone (Prednisone) 10 Mg Tablet, 10 MG PO TAPER Take 4 tabs daily x 3 days, then 3 tabs daily x 3 days, then 2 tabs daily x 3 days, then 1 tab daily x 3 days and stop Scheduled PRN Acetaminophen (Acetaminophen) 500 Mg Tablet, 1,000 MG PO TID PRN for PAIN, (Reported) Albuterol Sulfate (Proair Hfa) 108 Mcg/Act Aer, 2 PUFFS INH Q4H PRN for SHORTNESS OF BREATH, (Reported) Ipratropium/Albuterol Sulfate (Iprat-Albut 0.5-3(2.5) mg/3 ml) 3 Ml Ampul.neb, 1 SEGUNDO INH QID PRN for SOB/WHEEZING, (Reported) Allergies Coded Allergies: Penicillins (Verified Allergy, Unknown, 03/30/19) doxycycline (Verified Allergy, Unknown, 03/30/19) SONDRA ALEJANDRE MD Apr 04, 2019 12:02
== END 2019-04-04 13:57 | disposition home health service (06) | DRG 194 ==
LOC: M ED 15:26 → M ED INP 18:27 → M MSPAV 21:02
PROVIDERS: ADMIT Hospitalist; ATTEND Internal Medicine
DX: J18.9 Pneumonia, unspecified organism (principal); J44.1 Chronic obstructive pulmonary disease with (acute) exacerbation; N18.3 Chronic kidney disease, stage 3 (moderate); G47.33 Obstructive sleep apnea (adult) (pediatric); I27.20 Pulmonary hypertension, unspecified; E11.65 Type 2 diabetes mellitus with hyperglycemia; I12.9 Hypertensive chronic kidney disease with stage 1 through stage 4 chronic kidney disease, or unspecified chronic kidney disease; M79.18 Myalgia, other site; Z79.899 Other long term (current) drug therapy; Z79.82 Long term (current) use of aspirin; Z88.0 Allergy status to penicillin; Z88.8 Allergy status to other drugs, medicaments and biological substances; I50.9 Heart failure, unspecified; Z91.19 Patient's noncompliance with other medical treatment and regimen

== ENCOUNTER → 2019-04-16 | Outpatient (REF) | payer MEDICARE ==
[~2019-04-16] MED LIST changes: +ACET-683 PO; -BISO10TA6; -BISO10TA6 PO; +BISO10TA7; +BISO10TA7 PO; -DULO1CAP3 PO; +DULO1CAP6 PO; +EZET10TA21 PO; +IPRA0.00 INH; +NOVOINJ3 SC; +PRED10TA2 PO
[2019-04-16 13:22] LABS: APPEARANCE, URINE CLEAR (CLEAR); BACTERIA, URINE AUTO NEGATIVE (NEGATIVE); BILIRUBIN, URINE AUTO NEGATIVE (NEGATIVE); BLOOD, URINE BLOOD 1+ (NEGATIVE); COLOR, URINE STRAW (YELLOW); GLUCOSE, URINE (UA) AUTO 1+ mg/dL (NEGATIVE); KETONE, URINE AUTO NEGATIVE (NEGATIVE); LEUKOCYTE ESTERASE, URINE AUTO NEGATIVE (NEGATIVE); NITRITE, URINE AUTO NEGATIVE (NEGATIVE); PROTEIN, URINE AUTO 2+ mg/dL (NEGATIVE); RBC, URINE AUTO 1 /HPF (0-3); SPECIFIC GRAVITY URINE AUTO 1.014 (1.002-1.035); SQUAMOUS EPITHELIAL CELL UR AU 0 /HPF (0-6); UROBILINOGEN, URINE AUTO 0.2 mg/dL (0.0-2.0); WBC, URINE AUTO 1 /HPF (0-3)
[2019-04-16 13:24] LABS: HEMATOCRIT 33.5 % (36.0-47.0); HEMOGLOBIN 10.3 g/dl (12.0-15.5); MEAN CORPUSCULAR HEMOGLOBIN 28.3 pg (27.0-33.0); MEAN CORPUSCULAR HGB CONC 30.7 g/dl (32.0-36.5); PLATELET COUNT, AUTOMATED 233 10^3/uL (150-450); RED BLOOD COUNT 3.64 10^6/uL (4.00-5.40); WHITE BLOOD COUNT 11.5 10^3/uL (4.0-10.0)
[2019-04-16 13:54] LABS: CREATININE FOR GFR 1.79 MG/DL (0.55-1.30); GLOMERULAR FILTRATION RATE 30.4 (>45); POTASSIUM SERUM 4.4 MEQ/L (3.5-5.1)
== END ==
LOC: M SFHCPLAZ 11:29
PROVIDERS: ATTEND Family Medicine
DX: N18.3 Chronic kidney disease, stage 3 (moderate) (principal); D63.1 Anemia in chronic kidney disease; R35.0 Frequency of micturition

== ENCOUNTER → 2019-05-01 | Outpatient (REF) | payer MEDICARE ==
[2019-05-01 10:54] LABS: ALBUMIN 3.2 GM/DL (3.2-5.2); BILIRUBIN,TOTAL 0.2 MG/DL (0.2-1.0); CALCIUM LEVEL 8.6 MG/DL (8.8-10.2); CHOLESTEROL RISK RATIO 6.183 (<5); CREATININE FOR GFR 1.77 MG/DL (0.55-1.30); GLOMERULAR FILTRATION RATE 30.8 (>45); POTASSIUM SERUM 4.1 MEQ/L (3.5-5.1); TOTAL PROTEIN 6.3 GM/DL (6.4-8.2)
== END ==
LOC: M SFHCPLAZ 08:26
PROVIDERS: ATTEND Nurse Practitioner Family
DX: E78.5 Hyperlipidemia, unspecified (principal)

== ENCOUNTER → 2019-05-21 | Outpatient (REF) | payer MEDICARE ==
[~2019-05-21] MED LIST changes: +BISO10TA10; +BISO10TA10 PO; -BISO10TA7; -BISO10TA7 PO; +ZETI10TA16 PO; -ZETI10TA30 PO
[2019-05-21 13:47] LABS: CREATININE FOR GFR 1.73 MG/DL (0.55-1.30); GLOMERULAR FILTRATION RATE 31.7 (>45); THYROID STIMULATING HORMONE 2.97 uIU/ML (0.358-3.740)
== END ==
LOC: M SFHCPLAZ 09:27
PROVIDERS: ATTEND Nurse Practitioner Family
DX: N18.3 Chronic kidney disease, stage 3 (moderate) (principal); E78.5 Hyperlipidemia, unspecified; I50.30 Unspecified diastolic (congestive) heart failure

== ENCOUNTER → 2019-06-04 | Outpatient (REF) | payer MEDICARE ==
[~2019-06-04] MED LIST changes: -BISO5TAB5 PO; +BISO5TAB9 PO
[2019-06-04 13:31] LABS: CREATININE FOR GFR 1.67 MG/DL (0.55-1.30); POTASSIUM SERUM 4.2 MEQ/L (3.5-5.1)
== END ==
LOC: M SFHCPLAZ 09:27
PROVIDERS: ATTEND Nurse Practitioner Family
DX: I50.30 Unspecified diastolic (congestive) heart failure (principal)

== ENCOUNTER → 2019-06-24 | Outpatient (CLI) | payer MEDICARE ==
--- NOTE | 2019-06-25 10:01 | REP ---
Clinical: Follow up abnormal lung findings. Technique: Axial noncontrast images from the thoracic inlet to the upper abdomen with coronal and sagittal re-formations. Comparison: 03/30/2019, 03/06/2018. Findings: Previously identified multifocal infiltrates have resolved and only minimal residual scarring is identified primarily involving the lingula and lung bases. No acute consolidation, obvious nodule or mass lesion. No pleural effusion. No pneumothorax. Tracheobronchial tree is patent. No adenopathy. Atherosclerotic changes to the thoracic aorta noted without aneurysm. Heart and pericardium are within normal limits. Surrounding musculoskeletal structures demonstrate age-related changes without focal osseous abnormality. Limited upper abdomen suggests right renal hypodense lesion incompletely evaluated. Impression: 1. Previously noted multi focal infiltrates have resolved with only minimal residual lingular and basilar scarring noted. No acute mediastinal or pleuroparenchymal process. 2. Hypodense lesion involving the visualized portion of the right kidney may warrant ultrasound evaluation for follow up. Electronically Signed by Alden Ramon MD 06/25/2019 09:52 A
== END ==
LOC: M RAD 08:55
PROVIDERS: ATTEND Internal Medicine Pulmonary Disease
DX: J98.4 Other disorders of lung (principal); I70.0 Atherosclerosis of aorta; N28.89 Other specified disorders of kidney and ureter

== ENCOUNTER → 2019-07-10 | Outpatient (REF) | payer MEDICARE ==
[~2019-07-10] MED LIST changes: -ARTH650T11 PO; +ARTH650T4 PO; -AZIT500T2; -AZIT500T2 PO; +AZIT500T5; +AZIT500T5 PO; -BISO10TA10; -BISO10TA10 PO; +BISO10TA14; +BISO10TA14 PO; +BISO5TAB14 PO; -BISO5TAB9 PO; -BUPR300T34 PO; +BUPR300T92 PO; +INCR1INH INH; +LEVO500T3 PO; +OXYC1TAB23 PO; -SIMV40TA2 PO; +SIMV40TA20 PO
[2019-07-10 13:15] LABS: CALCIUM LEVEL 8.8 MG/DL (8.8-10.2); CREATININE FOR GFR 1.97 MG/DL (0.55-1.30); GLOMERULAR FILTRATION RATE 27.2 (>45); POTASSIUM SERUM 4.5 MEQ/L (3.5-5.1)
== END ==
LOC: M LABDRAWP 12:13
PROVIDERS: ATTEND Physician Assistant
DX: I50.32 Chronic diastolic (congestive) heart failure (principal)

== ENCOUNTER → 2019-07-10 | Outpatient (CLI) | payer MEDICARE ==
--- NOTE | 2019-07-10 15:49 | REP ---
Renal ultrasound: A recent chest CT dated 06/24/2019 a questionably hypodense lesion was identified in the visualized portion of the right kidney and ultrasounds record recommended for further evaluation. Renal ultrasound: The right kidney measures 10.7 x 5.6 x 4.5 cm. The left kidney measures 11.8 x 4.6 x 4.6 cm. The kidneys are normal size. Renal cortical echogenicity is normal bilaterally. There is no hydronephrosis on the right on the left. There are no renal calculi. No solid renal masses are identified. There are no right renal cysts. There are two left renal lower pole cysts, one medially measuring 1.2 cm in diameter and the other laterally measuring 1.7 cm in diameter. Bladder: With color Doppler assessment of the left ureteral jet is identified. The right ureteral jet could not be identified. However, there is no hydronephrosis. Impression: There are no solid or cystic right renal masses. There are two left renal lower pole cysts. There are no left renal solid masses. There is no hydronephrosis. No renal calculi. Otherwise, negative renal ultrasound. Electronically Signed by Cameron Matamoros MD 07/10/2019 03:40 P
== END ==
LOC: M RAD 13:59
PROVIDERS: ATTEND Internal Medicine Pulmonary Disease
DX: Q61.02 Congenital multiple renal cysts (principal); R93.421 Abnormal radiologic findings on diagnostic imaging of right kidney; I50.32 Chronic diastolic (congestive) heart failure

== ENCOUNTER → 2019-07-15 | Outpatient (REF) | payer MEDICARE ==
[~2019-07-15] MED LIST changes: +ARTH650T11 PO; -ARTH650T4 PO; +BISO10TA10; +BISO10TA10 PO; -BISO10TA14; -BISO10TA14 PO; -BISO5TAB14 PO; +BISO5TAB9 PO; +BUPR300T34 PO; -BUPR300T92 PO; -INCR1INH INH; -LEVO500T3 PO; -OXYC1TAB23 PO; +SIMV40TA2 PO; -SIMV40TA20 PO
[2019-07-15 13:32] LABS: HEMOGLOBIN A1c 9.6 %
== END ==
LOC: M SFHCPLAZ 09:57
PROVIDERS: ATTEND Nurse Practitioner Family
DX: E11.22 Type 2 diabetes mellitus with diabetic chronic kidney disease (principal)
CPT/HCPCS: 36415; 83036; G0463

== ENCOUNTER 2019-10-17 10:05 | Observation (INO) | payer MEDICARE ==
[~2019-10-17] VITALS: Ht 149.9 cm; Wt 97.9 kg
[~2019-10-17 10:05] MED LIST changes: -ARTH650T11 PO; +ARTH650T4 PO; -BISO10TA10; -BISO10TA10 PO; +BISO10TA14; +BISO10TA14 PO; +BISO5TAB14 PO; -BISO5TAB9 PO; -BUPR300T34 PO; +BUPR300T92 PO; -SIMV40TA2 PO; +SIMV40TA20 PO
[2019-10-17] MEDS ORDERED: ACETAMINOPHEN 325 MG TAB PO ONE (10:45)
[2019-10-17] MEDS ORDERED: CYCLOBENZAPRINE 5MG TABLET PO ONE (10:45)
[2019-10-17] MEDS ORDERED: LIDOCAINE 5% (LIDODERM) PATCH TD ONE (10:45)
[2019-10-17] MEDS ORDERED: IPRATROPIUM 0.5MG/ALBUTEROL 2.5MG INH SOL UD 3ML (DUONEB)(J7620) NEB ONE (11:00)
[2019-10-17 11:11] LABS: BASO % 0.2 % (0.0-1.0); EOS # 0.2 10^3/uL (0.0-0.5); EOS % 2.1 % (0.0-3.0); HEMATOCRIT 33.5 % (36.0-47.0); HEMOGLOBIN 10.4 g/dl (12.0-15.5); LYMPH % 12.4 % (24.0-44.0); MEAN CORPUSCULAR HEMOGLOBIN 27.1 pg (27.0-33.0); MEAN CORPUSCULAR VOLUME 87.2 fl (80.0-96.0); MONO # 0.5 10^3/uL (0.0-0.8); MONO % 6.1 % (0.0-5.0); NEUTROPHILS # 6.4 10^3/uL (1.5-8.5); NEUTROPHILS % 78.5 % (36.0-66.0); PLATELET COUNT, AUTOMATED 247 10^3/uL (150-450); RED BLOOD COUNT 3.84 10^6/uL (4.00-5.40); WHITE BLOOD COUNT 8.1 10^3/uL (4.0-10.0)
[2019-10-17 11:38] LABS: ALBUMIN 2.8 GM/DL (3.2-5.2); ALT/SGPT 23 U/L (12-78); BILIRUBIN,DIRECT < 0.1 MG/DL (0.0-0.2); BILIRUBIN,TOTAL 0.4 MG/DL (0.2-1.0); CPK CREATINE PHOSPHOKINASE 118 U/L (26-192); MB/CK RELATIVE INDEX 2.54 (< OR =4); NT-PRO BNP 3855 PG/ML (<125); TOTAL PROTEIN 6.1 GM/DL (6.4-8.2); TROPONIN I < 0.02 NG/ML (< 0.10)
[2019-10-17] MEDS ORDERED: ARNU1INH3 INH (11:45)
[2019-10-17] MEDS ORDERED: INCR1INH INH (11:45)
[2019-10-17] MEDS ORDERED: SALMDISK INH (11:45)
[2019-10-17] MEDS ORDERED: LEVO500T3 PO (11:45)
[2019-10-17] MEDS ORDERED: BUME1TAB3 PO (11:45)
--- NOTE | 2019-10-17 11:58 | REP ---
CHEST, SINGLE VIEW: Single view of the chest is performed. There is cardiomegaly. There is mild linear fibroatelectatic change in the left lung base. There is some tortuosity of the thoracic aorta. The mediastinal silhouette is otherwise unremarkable. Metallic plate and screws are seen in the lower cervical spine. There are degenerative changes of the spine. IMPRESSION: Cardiomegaly with no acute infiltrate. Electronically Signed by Cameron Mortensen MD 10/22/2019 09:41 A
--- NOTE | 2019-10-17 12:00 | REP ---
LUMBOSACRAL SPINE: Five views of the lumbosacral spine performed. There is no compression fracture. There is no malalignment with normal lumbar lordosis. There is mild diffuse spurring. There is mild disc space narrowing at all levels with more moderate degree of disc space narrowing and subchondral sclerosis at L2-3 and L4-5. There is diffuse sclerosis and spurring of the posterior facet joints. The posterior elements are intact. IMPRESSION: Diffuse degenerative change. No fracture or dislocation. Electronically Signed by Cameron Mortensen MD 10/22/2019 09:41 A
[2019-10-17 12:33] LABS: BLOOD UREA NITROGEN 45 MG/DL (7-18); CALCIUM LEVEL 8.2 MG/DL (8.8-10.2); CARBON DIOXIDE LEVEL 24 MEQ/L (21-32); CHLORIDE LEVEL 110 MEQ/L (98-107); CREATININE FOR GFR 2.04 MG/DL (0.55-1.30); GLOMERULAR FILTRATION RATE 26.1 (>45); GLUCOSE, FASTING 296 MG/DL (70-100); SODIUM LEVEL 143 MEQ/L (136-145)
[2019-10-17] MEDS ORDERED: INSUDET SC (12:58)
[2019-10-17] MEDS ORDERED: PERCOCET 5MG/325MG TAB PO ONE (13:00)
[2019-10-17] MEDS ORDERED: GLUCAGON FOR INJ 1 MG VIAL (J1610) SC PRN (13:45)
[2019-10-17] MEDS ORDERED: DEXTROSE 50% 50 ML SYRINGE IV PRN (13:45)
[2019-10-17] MEDS ORDERED: GLUCOSE 4 GM CHEW TABLET PO PRN (13:45)
[2019-10-17] MEDS ORDERED: BENZONATATE 100 MG CAP PO PRN (14:00)
[2019-10-17] MEDS: IPRATROPIUM 0.5MG/ALBUTEROL 2.5MG INH SOL UD 3ML (DUONEB)(J7620) INH SCH ×2 (14:14→19:50)
[2019-10-17 14:25] VITALS: BP 178/90
[2019-10-17] MEDS: HEPARIN SOD (PORCINE) 5000 UNITS/ML VIAL SC SCH (16:17)
[2019-10-17] MEDS: BUMETANIDE 1 MG/4 ML INJ (S0171) IV SCH (18:24)
[2019-10-17] MEDS: HumaLOG INSULIN (NovoLOG) PER UNIT SC SCH (18:24)
--- NOTE | 2019-10-17 19:00 | REP ---
Emergency ventilation-perfusion lung scan: History: Increased dyspnea with exertion. Chronic kidney disease. Technique: 1.0 mCi technetium 99m DTPA aerosol is utilized for the ventilation study and is followed by a 5.5 mCi dose of technetium-99m MAA for the perfusion exam. Eight planar images are acquired for each portion of the study. Comparison exam is from September 20, 2017. Scintigraphic findings: There is some central bronchial deposition of tracer on the ventilation study consistent with some degree of COPD. The perfusion study shows fairly homogeneous uptake. There is a matched perfusion defect in the right lower lobe unchanged from the prior study. There is a matched perfusion defect in the left lower lobe which appears a little larger than prior. No mismatched defect is seen. No entirely new defect is observed. Impression: Low probability scan for pulmonary embolus. Electronically Signed by Mac Corrales MD 10/17/2019 08:55 P
--- NOTE | 2019-10-17 19:10 | ECHO ---
DATE OF PROCEDURE: 10/17/2019 Date of : 1955 Age: 64 Gender: Female Height: 59 inches Weight: 220 pounds Body surface area: 1.92 meters squared Inpatient: [facility] [place], room 4226 REFERRING PHYSICIAN: Dr. Huber Marino INDICATION: Congestive heart failure (unspecified). MEASUREMENTS: 2D Measurements: RV: 4.4 cm LV: 4.6 cm Septum: 1.4 cm Posterior wall: 1.4 cm Aortic root: 3.0 cm LA: 4.4 cm LVEF: 75% Doppler Measurements: AV: 1.8 meters per second LVOT: 1.1 meters per second LVOT diameter: 1.9 cm MV-E: 90, A: 75, EA ratio: 1.2 Early mitral deceleration time: 187 milliseconds E prime medial: 4.5, A prime medial: 6, E prime lateral: 5.8. Average E/E prime ratio: 17.5/PCWP: 23.6 mmHg. PV: 0.8 meters per second Pulmonary artery acceleration time: 100 milliseconds RVSP: 45-50 mmHg IVC: 2.2 cm COMMENTS: Normal sinus rhythm without intraventricular conduction disturbance. M-mode and two-dimensional echocardiography was performed with pulsed, continuous wave, color flow and tissue Doppler studies. Moderate concentric left ventricular hypertrophy with hyperkinetic wall motion. At least mildly dilated left atrium with grade 2 left ventricular (LV) diastolic dysfunction and elevated mean left atrial pressure. Mildly dilated right heart chambers with normal right ventricular free wall motion and Doppler evidence of at least moderate pulmonary hypertension. Slightly dilated inferior vena cava with reduced respiratory collapse in keeping with an elevated central venous pressure/right heart failure. Mild aortic valvular sclerosis without functional abnormality. Normal aortic dimensions. Slightly thickened mitral annulus but normal appearing leaflets and leaflet motion without posterior systolic buckling. Mild mitral insufficiency. Normal appearing tricuspid valve with mild insufficiency. No apparent intracardiac mass or pericardial effusion.
[2019-10-17] MEDS: SALMETEROL DISKUS 50MCG INHALER (SEREVENT) INH SCH (20:00)
[2019-10-17] MEDS ORDERED: **NOTE PATIENT COMMENT** MISC XX SCH (21:00)
[2019-10-17] MEDS ORDERED: EZETIMIBE 10 MG TAB (ZETIA) PO SCH (21:00)
[2019-10-17] MEDS ORDERED: ASPIRIN 81 MG ENTERIC TAB PO SCH (21:00)
[2019-10-17] MEDS ORDERED: LEVEMIR (INSULIN DETEMIR) 1 UNITS/0.01ML SC SCH (21:00)
[2019-10-17] MEDS ORDERED: HumaLOG INSULIN (NovoLOG) PER UNIT SC SCH (21:00)
[2019-10-17] MEDS ORDERED: ATORVASTATIN 20 MG TAB PO SCH (21:00)
[2019-10-17 22:00] VITALS: BP 144/71
[2019-10-18] MEDS: HEPARIN SOD (PORCINE) 5000 UNITS/ML VIAL SC SCH (01:48)
[2019-10-18] MEDS: BUMETANIDE 1 MG/4 ML INJ (S0171) IV SCH (01:48)
[2019-10-18 06:00] VITALS: BP 174/78
[2019-10-18 06:02] LABS: HEMATOCRIT 30.2 % (36.0-47.0); HEMOGLOBIN 9.2 g/dl (12.0-15.5); MEAN CORPUSCULAR HGB CONC 30.5 g/dl (32.0-36.5); MEAN CORPUSCULAR VOLUME 88.6 fl (80.0-96.0); PLATELET COUNT, AUTOMATED 203 10^3/uL (150-450); RED BLOOD COUNT 3.41 10^6/uL (4.00-5.40); WHITE BLOOD COUNT 6.9 10^3/uL (4.0-10.0)
[2019-10-18 06:37] LABS: CALCIUM LEVEL 8.1 MG/DL (8.8-10.2); CREATININE FOR GFR 2.19 MG/DL (0.55-1.30); POTASSIUM SERUM 3.7 MEQ/L (3.5-5.1)
--- NOTE | 2019-10-18 07:21 | HPE ---
DATE OF ADMISSION: 10/17/2019 at approximately 1:30 p.m. CHIEF COMPLAINT: Dyspnea on exertion, which has been going on for several weeks. HISTORY OF PRESENT ILLNESS: Mrs. Irving is a 64-year-old morbidly obese woman who has history of chronic obstructive pulmonary disease (COPD) as well as obstructive sleep apnea. She has been noncompliant with her continuous positive airway pressure (CPAP) therapy for the last several months. She also has comorbid medical conditions that include chronic kidney disease (CKD), stage III, as well as insulin-dependent diabetes mellitus, type 2. The patient had been in her normal state of health up until several weeks ago, when she began to develop shortness of breath with an initially nonproductive cough, which has turned productive. She has been receiving nebulizers, and she is producing clear sputum. She has not had any fevers or chills. She had sought evaluation as an outpatient at her social work supervisor's office and saw Franky Hough, who prescribed prednisone 20 mg, which she completed a 5-day course of approximately 48 hours ago. In essence, she has completed 8 out of 10 days of Levaquin course also. Despite this, patient has not been getting any better. Several days ago she started experiencing low back pain. She has history of chronic back pain in the past with lumbar spine surgery, and so she sought medical attention. In the emergency room (ER) department, they did a lumbar spine x-ray film, which showed no acute fractures. The patient was noted to have an elevated brain natriuretic peptide (BNP) of 3000. Her chest x-ray was not indicative of any fusions or worsened central venous congestion, but she did have significant cardiomegaly. Her oxygen saturations are 95% on room air. She denies any history of pulmonary embolism of deep vein thrombosis in the past. She has not had any recent travel. She reports that her last stress test was approximately 2-[address] Duenas's office, and it was negative. She is admitted to the hospitalist service for further workup of her dyspnea on exertion. I did review her old echocardiogram from approximately 2 years ago, and that showed that she had some mild diastolic dysfunction at that time without any significant valvular heart disease. ALLERGIES: PENICILLIN, which causes hives, as well as DOXYCYCLINE, which causes her to feel funny. HOME MEDICATIONS: Tylenol, albuterol, aspirin, atorvastatin, bisoprolol, Bumex, chlorthalidone, Trulicity, Zetia, Arnuity Ellipta, NovoLog, Flex-Pen 2 units with meals and Levemir 40 units at bedtime, DuoNeb. She is on levofloxacin 500 mg once a day. She has completed 8 of 10 days. She also takes Serevent Diskus one puff twice a day and Incruse Ellipta daily also. PAST MEDICAL HISTORY: Notable for: 1. COPD, not oxygen or steroid dependent. 2. History of obstructive sleep apnea. 3. History of CKD, stage III, likely secondary to diabetes. 4. History of insulin-dependent diabetes mellitus, type 2. 5. History of morbid obesity. 6. History of hypertension. 7. History of hyperlipidemia. She denies history of stroke, cancer, or heart disease. PAST SURGICAL HISTORY: 1. Bilateral hip replacement. 2. Lumbar spine surgery. 3. Spinal cervical fusion. 4. Cataract surgery. 5. Bilateral inguinal hernia repairs also. SOCIAL HISTORY: Patient is . She lives alone. 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 She is an ex-smoker who quit 15 years ago. She does not use any alcohol, tobacco, or illicit drugs. FAMILY HISTORY: Notable for father who from complications of heart disease at age 56. Her mother at age 97 from a heart attack. Her father also had a history of diabetes and hypertension. Patient reports that her daughter, Terri Charlton is her main surrogate medical decision maker. She would like to be a full code. PHYSICAL EXAMINATION: Patient's pulse is 69, respirations 20, blood pressure 176/74, oxygen saturation 94% on room air. GENERAL: The patient is alert and oriented times three. She is lying in the supine position with no evidence of orthopnea or labored breathing. Her head is atraumatic, normocephalic. Her pupils are symmetric and reactive to light and accommodation. Extraocular movements are full in all directions. She had no scleral icterus or conjunctival pallor. Oropharynx is clear. Oral mucosa is moist. No oral lesions or tongue lesions are appreciated. Tympanic membranes visualized bilateral. She has a little bit of cerumen but no evidence of any acute infection or occlusion of her external ear canal. Her neck is supple. No audible stridor. No palpable lymphadenopathy nor thyroid gland tenderness. Carotid bruits are not appreciated bilaterally. Her carotid pulses are 2+ and brisk. Heart is S1, S2. No audible murmurs or gallops. Lung sounds are appreciated bilaterally without any appreciable rales, wheezes, or rhonchi. Abdomen is protuberant, nontender, nondistended with active bowel sounds. Extremities are without any significant cyanosis or clubbing. She has some trace edema bilateral. Neurologic: Cranial nerves II-XII are grossly intact without any focal neurologic deficits. Chest x-ray, one view, showed cardiomegaly. Sodium 143, potassium 4., chloride 110, bicarbonate is 24, anion gap 9, BUN 45, creatinine is 2, glucose is 296, calcium is 8.2. Bilirubin 0.4, AST 6, ALT 23, alkaline phosphatase 88. CK-MB is 3. Troponin is less than 0.02. NT-proBNP was 3855. Albumin was 2.8. White count 8.1, hemoglobin 7.4, hematocrit 32.5, platelet count 247. IMPRESSION: 1. Acute on chronic diastolic congestive heart failure. 2. Dyspnea on exertion, likely multifactorial, associated with her chronic diastolic congestive heart failure and likely worsening right-sided heart failure associated with noncompliance with CPAP therapy. 3. Tracheal bronchitis. 4. Chronic kidney disease (CKD), stage III. 5. Insulin-dependent diabetes mellitus, type 2. 6. Obstructive sleep apnea, noncompliant. 7. Chronic obstructive pulmonary disease (COPD). PLAN: Patient will be admitted to an observation status for now. She will be monitored on the telemetry floor. We will trend her troponins. I am going to check a V/Q scan at this time and just exclude pulmonary embolism (PE). Additionally, I will order a D-dimer. Patient will be placed on Bumex 1 mg intravenous (IV) every 12. Will obtain an echocardiogram also today, just to reassess her left ventricular (VL) function. It has been some time since she has had one from view her electronic medical record. Patient will have electrolyte and magnesium levels checked in the morning. Further recommendations will follow based on her response to therapy as well as results of testing. At this point, I do not feel she warrants any further steroids, as she is not having any wheezing. I think her COPD is rather stable. Will complete the additional 2 days that she needs for Levaquin for treatment of her tracheal bronchitis. She will be continued on her long-acting insulin at the current dose as well as placed on a sliding scale. She will receive a diabetic diet. Patient will have her CPAP therapy ordered tonight for her. She will be a full code and be placed on DVT prophylaxis. MTDD
[2019-10-18] MEDS: IPRATROPIUM 0.5MG/ALBUTEROL 2.5MG INH SOL UD 3ML (DUONEB)(J7620) INH SCH (07:36)
[2019-10-18] MEDS: SALMETEROL DISKUS 50MCG INHALER (SEREVENT) INH SCH (07:36)
[2019-10-18] MEDS ORDERED: bisoproloL fumarate 10 MG TAB PO SCH (09:00)
[2019-10-18 09:12] VITALS: BP 168/90
[2019-10-18] MEDS: HumaLOG INSULIN (NovoLOG) PER UNIT SC SCH ×2 (09:14→12:00)
[2019-10-18] MEDS ORDERED: OXYC1TAB23 PO (09:47)
--- NOTE | 2019-10-18 10:30 | IPNPDOC ---
Subjective Date Seen The patient was seen on 10/18/19. Subjective Chief Complaint/HPI c/o back pain and muscle spasms. Objective Physical Examination General Exam: Positive: Alert, No Acute Distress Eye Exam: Positive: Conjunctiva & lids normal; Negative: Sclera icteric ENT Exam: Positive: Atraumatic, Mucous membr. moist/pink, Pharynx Normal Neck Exam: Positive: Supple; Negative: JVD, thyromegaly Chest Exam: Positive: Clear to auscultation, Normal air movement Heart Exam: Positive: Rate Normal, Regular Rhythm, Normal S1, Normal S2; Negative: Murmurs, Rubs Telemetry: Positive: No significant arrhythmia Abdomen Exam: Positive: Normal bowel sounds, Soft; Negative: Tenderness, Hepatospenomegaly Female Exam: Positive: Nl Ext Genitalia; Negative: Lesions, Discharge, Odor, Tenderness Extremity Exam: Positive: Edema (trace edema), Normal pulses; Negative: Clubbing, Cyanosis Skin Exam: Positive: Nl turgor and temperature; Negative: Rash, Breakdown Neuro Exam: Positive: Strength at 5/5 X4 ext, Normal Tone Assessment /Plan Assessment # Acute on chronic diastolic CHF stage 2 Diastolic dysfunction # Pulmonary HTN # Exertional dyspnea # CKD stage 3 (baseline creat 1.5-2) # COPD compensated # IDDM2 # Non-traumatic Acute low back pain with no physical exam evidence of radiculopathy Plan: - discharge home - VQ scan low probability - ECHO reviewed: stage 2 diastolic CHF - encouraged her to increase her compliance with home CPAP - percocet prn for low back pain - renal function slightly elevated from recent course of steroids causing hyperglycemia and levaquin (not renally dosed) - will stop levaquin - F/u with her customer relations specialist for outpatient stress test in 1 week - F/u with music composition teacher as outpatient for repeat lab work in 1 week Plan/VTE VTE Prophylaxis Ordered?: Yes VTE Exclusion Mechanical Proph: N/A:VTE Prophy Ordered VTE Exclusion Pharmacological: N/A:VTE Prophy Ordered VS, I&O, 24H, Fishbone Vital Signs/I&O Vital Signs Date Time Temp Pulse Resp B/P (MAP) Pulse Ox O2 Delivery O2 Flow Rate FiO2 10/18/19 09:12 83 168/90 10/18/19 06:00 96.4 18 97 NIPPV (BIPAP/CPAP) I&O- Last 24 Hours up to 6 AM 10/18/19 06:00 Intake Total 420 ml Output Total 1000 ml Balance -580 ml Laboratory Data 24H LABS Laboratory Tests 2 10/17/19 10:57: Immature Granulocyte % (Auto) 0.7, Neutrophils (%) (Auto) 78.5H, Lymphocytes (%) (Auto) 12.4L, Monocytes (%) (Auto) 6.1H, Eosinophils (%) (Auto) 2.1, Basophils (%) (Auto) 0.2, Neutrophils # (Auto) 6.4, Lymphocytes # (Auto) 1.0L, Monocytes # (Auto) 0.5, Eosinophils # (Auto) 0.2, Basophils # (Auto) 0.0, Nucleated Red Blood Cells % (auto) 0.0, Anion Gap 9, Glomerular Filtration Rate 26.1L, Calcium Level 8.2L, Total Bilirubin 0.4, Direct Bilirubin < 0.1, Aspartate Amino Transf (AST/SGOT) 6L, Alanine Aminotransferase (ALT/SGPT) 23, Alkaline Phosphatase 88, Total Creatine Kinase 118, Creatine Kinase MB 3.0, Creatine Kinase MB Relative Index 2.54, Troponin I < 0.02, YR-Qbl-D-Type Natriuretic Peptide 3855H, Total Protein 6.1L, Albumin 2.8L, Albumin/Globulin Ratio 0.85L 10/17/19 11:07: POC Glucose (Misc Panel) 312H, POC Sodium (Misc Panel) 141, POC Potassium (Misc Panel) 3.8, POC Chloride (Misc Panel) 109, POC Total CO2 (Misc Panel) 22.0L, POC Blood Urea Nitrogen (Misc Panel 40H, POC Ionized Calcium (Misc Panel) 4.5, POC Creatinine (Misc Panel) 2.1H, POC Hematocrit (Misc Panel) 28.0L 10/17/19 14:54: Troponin I < 0.02 10/17/19 17:42: Bedside Glucose (Misc Panel) 179H 10/17/19 18:59: Troponin I < 0.02 10/17/19 20:17: Bedside Glucose (Misc Panel) 265H 10/17/19 20:48: Troponin I < 0.02 10/18/19 05:47: Nucleated Red Blood Cells % (auto) 0.0, Anion Gap 8, Glomerular Filtration Rate 24.0L, Calcium Level 8.1L, Magnesium Level 2.0, IV-Xgh-Q-Type Natriuretic Peptide 3897H CBC/BMP Laboratory Tests 10/17/19 10:57 10/18/19 05:47 MARK JUNE MD Oct 18, 2019 10:29
--- NOTE | 2019-10-18 15:20 | DSES ---
DATE OF ADMISSION: 10/17/2019 DATE OF DISCHARGE: 10/18/2019 DISCHARGE DIAGNOSES: 1. Acute on chronic diastolic congestive heart failure. 2. Chronic kidney disease (CKD) stage III. 3. Tracheal bronchitis. 4. Insulin-dependent diabetes mellitus, type 2. 5. Acute low back pain, nontraumatic. PROCEDURES PERFORMED DURING THIS HOSPITALIZATION: None. CONSULTANTS ON THE CASE: None. DISPOSITION: Patient is discharged home. DISCHARGE INSTRUCTIONS: Patient is instructed to followup with Dr. Duenas in approximately 1 week for an outpatient cardiac stress test. In addition, patient is to followup with her atmospheric sciences professor in 1 week just to reassess her volume status and creatinine function. RELEVANT IMAGING STUDIES: A V/Q scan was low probability for pulmonary embolism. Chest x-ray, one view, showed cardiomegaly with no acute infiltrate. Lumbar spine x-ray showed no acute fracture. Echocardiogram with Doppler showed a preserved left ventricular ejection fraction with stage II diastolic dysfunction and moderate pulmonary hypertension. No significant valvular heart disease or pericardial effusion was noted. RELEVANT LABS: Troponin markers times three are negative. NT-pro-BNP was 3897. Procalcitonin is pending at discharge. Sodium was 144, potassium 3.7, chloride is 112, bicarbonate is 24, anion gap is 8, BUN is 49, creatinine is 2.1, glucose 168, calcium is 8.1, mag is 2, albumin is 2.8, AST is 6, ALT was 23, ALK phos 88, CPK was 118. White blood cell count is 6.9, hemoglobin 9.2, hematocrit 30.2, platelet counts are 203,000. HOSPITAL COURSE: Ritika is a 64-year-old woman who had presented to the hospital with complaints of shortness of breath. She had recently been seen at Dr. Castaneda' office and placed on oral Levaquin 500 mg daily, in addition to a short prednisone course. The patient clinically was not much improved and still felt short of breath with exertion, and had developed acute low back pain. She subsequently sought medical attention in the emergency room (ER) department, where she was found to be eupneic without any labored breathing or visible orthopnea on presentation. Her oxygen saturations on admission to the ER were 95% on room air. She was not noted to be tachypneic. Her chest x-ray showed cardiomegaly without evidence of infiltrate or effusion. She was noted to have an elevated NT-pro-BNP as well as slightly elevated creatinine, although, when looking at her historical norms, it looks like her creatinine ranges between 1.5 to 2 mg/dL going as far back as 11/19/2018 labs. She was admitted to the hospitalist's service for further workup of her exertional dyspnea. She was admitted to the telemetry unit. She was not noted to have any arrhythmias. Troponin markers times three were negative. A V/Q scan was obtained, which failed to show any evidence of high probability for PE, in fact, she was noted to have low probability. An echocardiogram with Doppler was obtained that showed that she had stage II diastolic dysfunction. When compared to her previous one, it appeared that she only had stage I diastolic dysfunction at this time. I have discussed all results of labs with her and have encouraged her to start being compliant with her obstructive sleep apnea as it is apparently stressing her heart. I resumed her Bumex orally. I had given her IV doses overnight, which caused her creatinine to go slightly up, but her urine output has been in excess of 600 mL since admission. She is still experiencing low back pain. I am going to prescribe her a short-course of Percocet, and patient is directed to followup with her primary care provider (PCP) regarding this. Patient will followup with Dr. Duenas for an outpatient stress test, as I feels she warrants this. In addition, she is advised to followup with her atmospheric sciences professor also just to keep a close eye on her volume status as well as kidney function. I have discontinued any further doses of Levaquin as she was getting a higher dose than permitted for her renal function, and she has been adequately treated. DISCHARGE MEDICATIONS: Percocet 5/325 one tablet every 8 hours as needed, dispense 15, no refills. Remainder of her home medications are unchanged from admission, with the exception that her Levaquin has now been discontinued.
== END 2019-10-18 12:14 | disposition home or self-care (01) ==
LOC: M ED 10:05 → M ED INP 10:06 → ENRESERV 13:50 → M MSPAV 14:23
PROVIDERS: ADMIT Internal Medicine; ATTEND Internal Medicine
DX: I50.33 Acute on chronic diastolic (congestive) heart failure (principal); N18.3 Chronic kidney disease, stage 3 (moderate); J40 Bronchitis, not specified as acute or chronic; E11.9 Type 2 diabetes mellitus without complications; I10 Essential (primary) hypertension; E78.49 Other hyperlipidemia; J44.9 Chronic obstructive pulmonary disease, unspecified; M54.5 Low back pain; Z79.4 Long term (current) use of insulin; Z88.0 Allergy status to penicillin; E66.01 Morbid (severe) obesity due to excess calories; Z79.82 Long term (current) use of aspirin; Z79.899 Other long term (current) drug therapy; G47.33 Obstructive sleep apnea (adult) (pediatric); Z87.891 Personal history of nicotine dependence
CPT/HCPCS: 36415; 71045; 72110; 78582; 80047; 80048; 80076; 82550; 82553; 83735; 83880; 84145; 84484; 85025; 85027; 93041; 93306; 94640; 94760; 96372; 99285; A9540; A9567; G0378

== ENCOUNTER 2019-11-15 23:20 | Inpatient (IN) | payer MEDICARE ==
[~2019-11-15] VITALS: Ht 149.9 cm; Wt 94.2 kg
[2019-11-15] MEDS: ATORVASTATIN 20 MG TAB PO SCH (21:00)
[2019-11-15] MEDS: EZETIMIBE 10 MG TAB (ZETIA) PO SCH (21:00)
[2019-11-15] MEDS: LEVEMIR (INSULIN DETEMIR) 1 UNITS/0.01ML SC SCH (21:00)
[~2019-11-15 23:20] MED LIST changes: +INCR1INH INH; +LEVO500T3 PO; -MONT10TA2 PO; +MONT10TA4 PO; +OXYC1TAB23 PO
[2019-11-16] MEDS ORDERED: IPRATROPIUM 0.5MG/ALBUTEROL 2.5MG INH SOL UD 3ML (DUONEB)(J7620) NEB PRN
[2019-11-16 00:34] LABS: BASO % 0.3 % (0.0-1.0); EOS # 0.1 10^3/uL (0.0-0.5); EOS % 1.3 % (0.0-3.0); HEMATOCRIT 32.1 % (36.0-47.0); HEMOGLOBIN 10.1 g/dl (12.0-15.5); LYMPH # 0.9 10^3/uL (1.5-5.0); LYMPH % 8.4 % (24.0-44.0); MEAN CORPUSCULAR HGB CONC 31.5 g/dl (32.0-36.5); MEAN CORPUSCULAR VOLUME 85.8 fl (80.0-96.0); MONO # 0.5 10^3/uL (0.0-0.8); MONO % 4.8 % (0.0-5.0); NEUTROPHILS # 9.1 10^3/uL (1.5-8.5); NEUTROPHILS % 84.7 % (36.0-66.0); PLATELET COUNT, AUTOMATED 226 10^3/uL (150-450); RED BLOOD COUNT 3.74 10^6/uL (4.00-5.40); WHITE BLOOD COUNT 10.7 10^3/uL (4.0-10.0)
[2019-11-16 01:08] LABS: BLOOD UREA NITROGEN 32 MG/DL (7-18); CALCIUM LEVEL 8.4 MG/DL (8.8-10.2); CARBON DIOXIDE LEVEL 23 MEQ/L (21-32); CHLORIDE LEVEL 114 MEQ/L (98-107); CK-MB VALUE MASS 2.8 NG/ML (<3.6); CPK CREATINE PHOSPHOKINASE 123 U/L (26-192); CREATININE FOR GFR 1.77 MG/DL (0.55-1.30); GLOMERULAR FILTRATION RATE 30.7 (>45); GLUCOSE, FASTING 237 MG/DL (70-100); MB/CK RELATIVE INDEX 2.28 (< OR =4); NT-PRO BNP 4894 PG/ML (<125); SODIUM LEVEL 144 MEQ/L (136-145); TROPONIN I < 0.02 NG/ML (< 0.10)
[2019-11-16] MEDS ORDERED: FUROSEMIDE 40 MG/4 ML VIAL (J1940) IV ONE (02:00)
[2019-11-16] MEDS ORDERED: VITA50005 PO (02:18)
[2019-11-16] MEDS ORDERED: OXYC1TAB23 PO (02:18)
[2019-11-16] MEDS ORDERED: GLUCAGON FOR INJ 1 MG VIAL (J1610) SC PRN (04:15)
[2019-11-16] MEDS ORDERED: ALBUTEROL 90 MCG/ACT 8GM HFA INHALER INH PRN (04:15)
[2019-11-16] MEDS ORDERED: CAPTOpril 6.25 MG PER 1/2 TABLET PO ONE (04:15)
[2019-11-16] MEDS ORDERED: GLUCOSE 4 GM CHEW TABLET PO PRN (04:15)
[2019-11-16] MEDS ORDERED: DEXTROSE 50% 50 ML SYRINGE IV PRN (04:15)
--- NOTE | 2019-11-16 04:23 | HPEPDOC ---
General Date of Admission Nov 16, 2019 at 03:39 Date of Service: Nov 16, 2019 Chief Complaint The patient is a 64-year-old female admitted with a reason for visit of Chf Exacerbation. Source: Patient Exam Limitations: No limitations Timing/Duration: Day(s) Severity: Moderate Associated Symptoms: Shortness of breath History of Present Illness Patient is 64 years old female with past medical history of CHF, COPD, obstructive sleep apnea, diabetes type 2 presented hospital with increased shortness of breath. Patient stated that she has been having increased shortness of breath for past few weeks associated with increased leg swelling, orthopnea. Also patient has increased dry cough. In emergency room patient was found to have white blood count of 10.7, creatinine 1.7, BNP around 4000. Chest x-ray was done and showed increased vascular congestion. Patient denied fever, chest pain, palpitations, abdominal pain, diarrhea or dysuria Home Medications Scheduled Amlodipine Besylate (Amlodipine Besylate) 2.5 Mg Tablet, 7.5 MG PO DAILY Take 3 tabs PO daily Aspirin (Aspirin EC) 81 Mg Tabec, 81 MG PO DAILY, (Reported) Atorvastatin Calcium (Atorvastatin Calcium) 80 Mg Tab, 80 MG PO QHS, (Reported) Bisoprolol Fumarate (Bisoprolol Fumarate) 10 Mg Tab, 10 MG PO DAILY, (Reported) Bumetanide (Bumetanide) 1 Mg Tablet, 1 MG PO DAILY, (Reported) Chlorthalidone (Chlorthalidone) 25 Mg Tab, 25 MG PO DAILY, (Reported) Dulaglutide (Trulicity) 1.5 Mg/0.5 Ml Inj, 1.5 MG SC 1XWK, (Reported) FRIDAYS Ergocalciferol (Vitamin D2) (Vitamin D2) 50,000 Units Cap, 1 CAP PO 1XWK, (Reported) TAKES ON SUNDAY Ezetimibe (Ezetimibe) 10 Mg Tablet, 10 MG PO QHS, (Reported) Fluticasone Furoate (Arnuity Ellipta) 200 Mcg Blst.w.dev, 1 PUFF INH DAILY, (Reported) Hydralazine HCl (Hydralazine HCl) 10 Mg Tablet, 20 MG PO Q6H Take 2 tabs PO every 6 hours Insulin Aspart (Novolog Flexpen) 100 Unit/1 Ml Insuln.pen, 2 UNITS SC AC, (Reported) Insulin Detemir (Levemir) 100 Unit/1 Ml Vial, 40 UNITS SC QHS, (Reported) Ipratropium/Albuterol Sulfate (Iprat-Albut 0.5-3(2.5) mg/3 ml) 3 Ml Ampul.neb, 1 SEGUNDO INH BID, (Reported) Salmeterol (Serevent Diskus) 50 Mcg Blst.w.dev, 1 PUFF INH BID, (Reported) Umeclidinium [place] (Incruse Ellipta) 62.5 Mcg Blst.w.dev, 1 PUFF INH DAILY, (Reported) Scheduled PRN Acetaminophen (Acetaminophen) 500 Mg Tablet, 1,000 MG PO TID PRN for PAIN, (Reported) Albuterol Sulfate (Proair Hfa) 108 Mcg/Act Aer, 2 PUFFS INH Q4H PRN for SHORTNESS OF BREATH, (Reported) Oxycodone HCl/Acetaminophen (Oxycodone-Acetaminophen 5-325) 1 Each Tablet, 1 TAB PO TID PRN for PAIN, (Reported) Allergies Coded Allergies: Penicillins (Verified Allergy, Mild, HIVES, 10/17/19) doxycycline (Verified Allergy, Unknown, 03/30/19) Past Medical History Medical History 1. COPD, not oxygen or steroid dependent. 2. History of obstructive sleep apnea. 3. History of CKD, stage III, likely secondary to diabetes. 4. History of insulin-dependent diabetes mellitus, type 2. 5. History of morbid obesity. 6. History of hypertension. 7. History of hyperlipidemia. Surgical History 1. Bilateral hip replacement. 2. Lumbar spine surgery. 3. Spinal cervical fusion. 4. Cataract surgery. 5. Bilateral inguinal hernia repairs also. Family History Notable for father who from complications of heart disease at age 56. Her mother at age 97 from a heart attack. Her father also had a history of diabetes and hypertension. Social History * Smoker: former Smoker Alcohol: occationally Drugs: denies A-FIB/CHADSVASC A-FIB History Current/History of A-Fib/PAF?: No Current PO Anticoag Therapy: No Review of Systems Constitutional: Denies: Chills, Fever Eyes: Denies: Pain ENT: Denies: Head Aches Skin: Denies: Rash, Lesions Pulmonary: Reports: Dyspnea, Cough, Other Symptoms (orthopnea) Cardiovascular: Denies: Chest Pain, Palpitations Gastrointestinal: Denies: Nausea, Vomiting Genitourinary: Denies: Dysuria, Frequency Hematologic: Denies: Bruising Endocrine: Denies: Polydipsia, Polyphagia Musculoskeletal: Denies: Neck Pain, Back Pain Neurological: Denies: Weakness, Numbness Psych: Reports: Mood Normal Physical Examination General Exam: Positive: Alert, Cooperative Eye Exam: Positive: PERRLA ENT Exam: Positive: Atraumatic, Mucous membr. moist/pink Neck Exam: Positive: Supple, JVD Chest Exam: Positive: Clear to auscultation Heart Exam: Positive: Rate Normal Telemetry: Positive: No significant arrhythmia Abdomen Exam: Positive: Normal bowel sounds Extremity Exam: Negative: Clubbing, Cyanosis Skin Exam: Positive: Nl turgor and temperature Neuro Exam: Positive: Strength at 5/5 X4 ext, Cranial Nerves 3-12 NL Psych Exam: Positive: Mental status NL Vital Signs Vital Signs Date Time Temp Pulse Resp B/P (MAP) Pulse Ox O2 Delivery O2 Flow Rate FiO2 11/16/19 01:02 79 95 Nasal Cannula 3.0 11/16/19 01:01 188/86 (120) 11/15/19 23:46 22 11/15/19 23:21 97.6 Laboratory Data Labs 24H Laboratory Tests 2 11/16/19 00:20: Immature Granulocyte % (Auto) 0.5, Neutrophils (%) (Auto) 84.7H, Lymphocytes (%) (Auto) 8.4L, Monocytes (%) (Auto) 4.8, Eosinophils (%) (Auto) 1.3, Basophils (%) (Auto) 0.3, Neutrophils # (Auto) 9.1H, Lymphocytes # (Auto) 0.9L, Monocytes # (Auto) 0.5, Eosinophils # (Auto) 0.1, Basophils # (Auto) 0.0, Nucleated Red Blood Cells % (auto) 0.0, Anion Gap 7L, Glomerular Filtration Rate 30.7L, Lactic Acid Level 0.9, Calcium Level 8.4L, Total Creatine Kinase 123, Creatine Kinase MB 2.8, Creatine Kinase MB Relative Index 2.28, Troponin I < 0.02, LP-Muq-L-Type Natriuretic Peptide 4894H 11/16/19 00:27: POC pH (Misc Panel) 7.363, POC Base Excess (Misc Panel) -5.0L, POC Saturated Percent O2 (Misc) 89L, POC pO2 (Misc Panel) 58.0L, POC pCO2 (Misc Panel) 35.6, POC HCO3 (Misc Panel) 20.2L, POC Total CO2 (Misc Panel) 21.0L CBC/BMP Laboratory Tests 11/16/19 00:20 Microbiology Microbiology 11/16/19 Respiratory Virus Panel (PCR) (GASPER) - Final, Complete 11/16/19 Blood Culture, Received Pending 11/16/19 Blood Culture, Received Pending Assessment/Plan Patient is 64 years old female with past medical history of CHF, COPD, obstructive sleep apnea, diabetes type 2 presented hospital with increased shortness of breath. Patient stated that she has been having increased shortness of breath for past few weeks associated with increased leg swelling, orthopnea. Also patient has increased dry cough. In emergency room patient was found to h ave white blood count of 10.7, creatinine 1.7, BNP around 4000. Chest x-ray was done and showed increased vascular congestion. Problems (1) Acute respiratory failure with hypoxia Status: Acute Problem Text: Secondary to acute on chronic diastolic CHF exacerbation Unlikely patient has COPD exacerbation, lungs clear to auscultation Diuresis, oxygen therapy (2) Acute on chronic diastolic (congestive) heart failure Status: Acute Problem Text: Cardiac diet I's and O's Lasix IV Daily weight Fluid restriction to 1500 mL (3) DM2 (diabetes mellitus, type 2) Status: Chronic Problem Text: Diabetes diet Insulin sliding scale Detemir 40 units (4) Hypertensive urgency Onset Date: 10/20/2014 Status: Acute Problem Text: Most likely secondary to CHF exacerbation and noncompliance to cardiac medications Continue home meds Captopril by mouth Vital signs every 4 hours (5) Anemia in chronic kidney disease Status: Chronic Problem Text: Most likely secondary to chronic kidney diseases We will check iron study B12 Folate Stool occult blood (6) MARIZA on CPAP Status: Chronic Problem Text: CPAP daily at bedtime Plan / VTE VTE Prophylaxis Ordered?: Yes ZHEN PATEL DO Nov 16, 2019 04:23
[2019-11-16 04:38] LABS: IRON (FE) 32 UG/DL (50-170); PERCENT SATURATION 10.9 % (13.2-45.0); TOTAL IRON BINDING CAPACITY 293 UG/DL (250-450)
[2019-11-16 06:10] VITALS: BP 155/88
[2019-11-16] MEDS: IPRATROPIUM 0.5MG/ALBUTEROL 2.5MG INH SOL UD 3ML (DUONEB)(J7620) INH SCH ×2 (07:34→19:50)
[2019-11-16] MEDS ORDERED: BUMETANIDE 1 MG TAB PO SCH (09:00)
[2019-11-16] MEDS ORDERED: VITAMIN D 50,000 UNITS CAPSULE (ERGOCALCIFEROL 1.25MG) PO SCH (09:00)
[2019-11-16] MEDS ORDERED: bisoproloL fumarate 10 MG TAB PO SCH (09:00)
--- NOTE | 2019-11-16 09:46 | REP ---
Clinical: Cough and dyspnea. Technique: Portable semiupright view. Comparison: 10/17/2019 Findings: Examination is limited by portable technique, underpenetration, and poor inspiratory effort. Mediastinum and cardiac silhouette are relatively stable. Chronic changes at the left base noted. No focal consolidation. No effusion. No pneumothorax. Skeletal structures intact. Impression: Chronic stable changes. No focal consolidation or effusion. Electronically Signed by Alden Ramon MD 11/16/2019 09:38 A
[2019-11-16] MEDS: HEPARIN SOD (PORCINE) 5000 UNITS/ML VIAL (J1644 PER 1000UNITS) SC SCH ×2 (09:55→20:46)
[2019-11-16] MEDS: ASPIRIN 81 MG ENTERIC TAB PO SCH (09:55)
[2019-11-16] MEDS: CHLORTHALIDONE 25 MG TAB PO SCH (09:56)
[2019-11-16] MEDS: HumaLOG INSULIN (NovoLOG) PER UNIT SC SCH ×4 (10:08→20:58)
--- NOTE | 2019-11-16 11:43 | IPNPDOC ---
Text Note Date of Service The patient was seen on 11/16/19. NOTE Subjective: Patient is a 64-year-old female with a PMHx of Grade 2 Diastolic CHF, HTN, DLP, IDDM2, COPD, MARIZA, CKD3, who presented to the emergency room with medications of breath. Patient has reported that she has had associated lower extremity swelling as well as shortness of breath upon lying flat. Patient was admitted to hospitalist service for further evaluation and treatment. Patient was seen and examined at the bedside. Currently patient reports that her breathing is relatively unchanged. She denies any cough, chest pain, palpitations. Denies any nausea, vomiting, abdominal pain, diarrhea, or urinary discomfort. Objective: Vitals (See below) General: Lying in bed, no acute distress, comfortable, AAOx3 HEENT: NC, AT CVS: +S1S2 Lungs: Fair air entry b/l, -w/r/r Abdomen: Soft, ND, NT Extremities: 1+ pitting edema, - Calf tenderness Assessment and plan: Acute hypoxic respiratory failure - likely 2/2 acute decompensated diastolic (Grade 2) CHF - Patient presented to the emergency room with complaints of short of breath associated with lower extremity swelling and orthopnea - Physical reveals lower extremity swelling - Patient still requiring some oxygen via nasal cannula - Elevated BNP - ECHO 10/17: Reveal evidence of grade 2 diastolic dysfunction - CXR 11/16: Chronic stable changes. No focal consolidation or effusion. - Will continue with strict ins and outs, daily weights, fluid restrictions - c/w diuresis with furosemide HTN - s/p Hypertensive urgency - Will continue with Bisoprolol, Chlorthalidone, Furosemide DLP - c/w Atorvastatin, Ezetimibe, and ASA 81 IDDM2 - c/w ISS and Levemir COPD - No evidence of exacerbation at this time - c/w Inhaled therapy as ordered MARIZA on CPA - Allow home CPAP use while inpatient CKD3 - Cr baseline of 1.7-2.0 - Cr currently at baseline - Will c/w Diuresis Leukocytosis - likely 2/2 reactive etiology, less likely 2/2 infectious - ROS negative for infection - Hemodynamically stable / Afebrile - Will hold off on antibiotics Normocytic anemia - Consistent with iron deficiency; will check Ferritin - Will continue to monitor DVT prophylaxis - c/w Heparin Disposition: - c/w Diuresis VS,Fishbone, I+O VS, Fishbone, I+O Laboratory Tests 11/16/19 00:20 Vital Signs Date Time Temp Pulse Resp B/P (MAP) Pulse Ox O2 Delivery O2 Flow Rate FiO2 11/16/19 09:56 155/88 11/16/19 06:10 98.1 83 19 94 Nasal Cannula 3.0 SONDRA ALEJANDRE MD Nov 16, 2019 11:43
[2019-11-16] MEDS: FUROSEMIDE 40 MG/4 ML VIAL (J1940) IV SCH (12:47)
[2019-11-16 14:00] VITALS: BP 178/98
[2019-11-16 15:00] VITALS: BP 176/82
[2019-11-16] MEDS: ACETAMINOPHEN 500 MG TAB PO PRN (17:07)
[2019-11-16 17:38] VITALS: BP 176/82
[2019-11-16] MEDS: ATORVASTATIN 20 MG TAB PO SCH (20:45)
[2019-11-16] MEDS: EZETIMIBE 10 MG TAB (ZETIA) PO SCH (20:46)
[2019-11-16] MEDS: bisoproloL fumarate 10 MG TAB PO SCH (20:46)
[2019-11-16] MEDS: LEVEMIR (INSULIN DETEMIR) 1 UNITS/0.01ML SC SCH (20:46)
[2019-11-16 21:13] VITALS: O2SAT 97
[2019-11-16 22:00] VITALS: BP 170/96
[2019-11-17] VITALS (9 sets, daily range): BP systolic 142–184; BP diastolic 72–98; O2SAT 95
[2019-11-17] MEDS: FUROSEMIDE 40 MG/4 ML VIAL (J1940) IV SCH (00:06)
[2019-11-17 05:56] LABS: BASO % 0.6 % (0.0-1.0); EOS # 0.2 10^3/uL (0.0-0.5); EOS % 2.8 % (0.0-3.0); HEMATOCRIT 30.8 % (36.0-47.0); HEMOGLOBIN 9.5 g/dl (12.0-15.5); LYMPH # 1.3 10^3/uL (1.5-5.0); LYMPH % 17.4 % (24.0-44.0); MEAN CORPUSCULAR HEMOGLOBIN 26.9 pg (27.0-33.0); MEAN CORPUSCULAR HGB CONC 30.8 g/dl (32.0-36.5); MEAN CORPUSCULAR VOLUME 87.3 fl (80.0-96.0); MONO # 0.4 10^3/uL (0.0-0.8); MONO % 6.1 % (0.0-5.0); NEUTROPHILS # 5.3 10^3/uL (1.5-8.5); NEUTROPHILS % 72.8 % (36.0-66.0); PLATELET COUNT, AUTOMATED 215 10^3/uL (150-450); RED BLOOD COUNT 3.53 10^6/uL (4.00-5.40); WHITE BLOOD COUNT 7.2 10^3/uL (4.0-10.0)
[2019-11-17] MEDS ORDERED: **hydrALAZINE** 10 MG TAB PO SCH (06:00)
[2019-11-17 06:18] LABS: CALCIUM LEVEL 7.8 MG/DL (8.8-10.2); CREATININE FOR GFR 2.25 MG/DL (0.55-1.30); GLOMERULAR FILTRATION RATE 23.3 (>45); MAGNESIUM LEVEL 1.7 MG/DL (1.8-2.4); POTASSIUM SERUM 3.7 MEQ/L (3.5-5.1)
[2019-11-17] MEDS: HumaLOG INSULIN (NovoLOG) PER UNIT SC SCH ×4 (07:44→19:37)
[2019-11-17] MEDS: IPRATROPIUM 0.5MG/ALBUTEROL 2.5MG INH SOL UD 3ML (DUONEB)(J7620) INH SCH ×2 (07:52→18:21)
--- NOTE | 2019-11-17 08:27 | ECGEPIP ---
[facility] - ED Test Date: 2019-11-16 Pat Name: CELI JOHNSON Department: Room: 7 Gender: Female Behaviorist: VERONICA : 1955 Requested By: CHRISTIAN Order Number: [id number] Reading MD: Kourtney Dillard Measurements Intervals [place] Rate: 85 P: 54 LA: 186 QRS: 10 QRSD: 87 T: 106 QT: 391 QTc: 467 Interpretive Statements SINUS RHYTHM NONSPECIFIC ST & T-WAVE ABNORMALITY SIMILAR 03/31/19 Electronically Signed on 11-17-2019 8:27:07 EST by Kourtney Dillard
[2019-11-17] MEDS ORDERED: MAGNESIUM OXIDE 400 MG TAB (MAG-OX) PO ONE (09:00)
[2019-11-17] MEDS: ASPIRIN 81 MG ENTERIC TAB PO SCH (09:21)
[2019-11-17] MEDS: HEPARIN SOD (PORCINE) 5000 UNITS/ML VIAL (J1644 PER 1000UNITS) SC SCH ×2 (09:22→20:07)
[2019-11-17] MEDS: CHLORTHALIDONE 25 MG TAB PO SCH (09:22)
[2019-11-17] MEDS: FUROSEMIDE 100 MG/10 ML VIAL (J1940) IV SCH ×2 (09:23→17:00)
--- NOTE | 2019-11-17 09:45 | IPNPDOC ---
Text Note Date of Service The patient was seen on 11/17/19. NOTE Subjective: Patient is a 64-year-old female with past medical history grade 2 diastolic congestive heart failure, hypertension, dyslipidemia, insulin- dependent diabetes mellitus type 2, COPD, MARIZA, and CK-MB stage III cirrhosis versus the room with shortness of breath. Patient says that she also expressed experiencing increased leg swelling. Patient says since be in the hospital, she is been sleeping most of the time. Patient states that she feels slightly better today. She is currently on oxygen which is being weaned down. Patient says that she does not have any difficulty breathing however, when she walks in the bathroom she does have shortness of breath. She worked with physical therapy yesterday however, she was short of breath with them. Patient feels tired today. Review of systems General: Patient denies fevers HEENT: Patient denies headaches Cardiovascular: Patient denies chest pain Respiratory: Patient endorses shortness of exertion but no shortness of breath on rest GI: Patient denies abdominal pain, nausea, vomiting, diarrhea : Patient denies pain or difficulty with urination Extremities: Patient endorses swelling in her legs which is slightly worse than usual. Objective: Vitals: (see below) General: Patient is alert and oriented female patient who was laying in bed when I walked in the room. Patient had nasal cannula in place. Patient did not appear to be in any acute distress. HEENT: Normocephalic, atraumatic, moist mucous membranes. Cardiac: Regular rate and rhythm, no murmurs, normal S1, normal S2 Pulm: Clear to auscultation bilaterally. No wheezes, rhonchi, rales Abd: Nondistended, nontender to palpation, normal bowel sounds Ext: 2+ pitting edema in lower extremities bilaterally Labs (see below) Images: No new imaging has been performed Assessment: Patient is a 64-year-old female who presents to the hospital with shortness of breath which is most likely secondary to acute decompensated diastolic congestive heart failure. Plan 1. Acute hypoxic respiratory failure. This is most likely secondary to acute decompensated diastolic his heart failure. Patient's shortness of breath has improved slightly however, she is still on oxygen and still becomes short of breath with exertion. We will continue with diuresis with furosemide 60 mg twice a day via the IV. We will continue with strict ins and outs and daily weights and 1500 mL fluid restriction. 2. Acute exacerbation of diastolic congestive heart failure. Continue treatment as above. 3. Hypertension. Status post hypertensive urgency. We'll continue with bisoprolol, chlorthalidone, furosemide 4. Dyslipidemia. Continue with atorvastatin, eczema, and aspirin. 5. Insulin-dependent diabetes mellitus type 2. Continue with sliding scale and Levemir. 6. COPD. No evidence of exacerbation at this time. Continue inhaled therapy. 7. History of sleep apnea on CPAP. Home CPAP use: Patient. 8. Chronic kidney disease stage III. Creatinine is at baseline currently. Baseline is 1.72.0. Continue with diuresis. 9. Leukocytosis. Likely reactive in etiology as patient is hemodynamically stable and there is no obvious source for infection. This leukocytosis improved with the treatment. 10. Normocytic anemia. Consistent with iron deficiency anemia. Ferritin levels pending. DVT prophy: Heparin 5000 units Dispo: Pending improved diuresis as well as physical therapy clearance VS,Fishbone, I+O VS, Fishbone, I+O Laboratory Tests 11/17/19 05:35 Vital Signs Date Time Temp Pulse Resp B/P (MAP) Pulse Ox O2 Delivery O2 Flow Rate FiO2 11/17/19 09:25 184/92 11/17/19 08:01 97.9 72 22 97 Nasal Cannula 2.0 11/17/19 01:35 32 I&O- Last 24 Hours up to 6 AM 11/17/19 06:00 Intake Total 1170 ml Output Total 2450 ml Balance -1280 ml GME ATTESTATION GME ATTESTATION My faculty preceptor for this patient encounter was physically present during the encounter and was fully available. All aspects of the patient interview, examination, medical decision making process, and medical care plan development were reviewed and approved by the faculty preceptor. The faculty preceptor is aware and concurs with the plan as stated in the body of this note and will attest to such by his/her cosignature. ATTENDING NOTE I, Betty Alejandre, have independently examined this patient and performed my own physical exam, as well as reviewed the documentation and edited where necessary. I have discussed in detail with the resident / student the findings and plan of treatment as documented by the resident / student and edited their note. I agree with their findings and treatment plan and have edited their documentation. I will continue to follow the patient during this hospital stay. AMARA RUSSELL DO Nov 17, 2019 09:45 BETTY ALEJANDRE MD Nov 17, 2019 12:16
[2019-11-17 10:01] LABS: VITAMIN B12 LEVEL 355 PG/ML
[2019-11-17 12:34] LABS: FERRITIN 145 NG/ML (8-252)
[2019-11-17 12:47] LABS: FOLATE 13.8 NG/ML
[2019-11-17] MEDS: **hydrALAZINE** 10 MG TAB PO SCH ×2 (14:02→22:35)
[2019-11-17] MEDS: EZETIMIBE 10 MG TAB (ZETIA) PO SCH (20:07)
[2019-11-17] MEDS: LEVEMIR (INSULIN DETEMIR) 1 UNITS/0.01ML SC SCH (20:07)
[2019-11-17] MEDS: ATORVASTATIN 20 MG TAB PO SCH (20:07)
[2019-11-17] MEDS: bisoproloL fumarate 10 MG TAB PO SCH (20:11)
[2019-11-17] MEDS: ACETAMINOPHEN 500 MG TAB PO PRN (23:10)
[2019-11-17] MEDS ORDERED: SIMETHICONE 80 MG CHEW TAB PO PRN (23:30)
[2019-11-18] MEDS: **hydrALAZINE** 10 MG TAB PO SCH ×3 (05:52→18:00)
[2019-11-18 05:55] VITALS: BP 180/90
[2019-11-18 06:21] LABS: BASO % 0.4 % (0.0-1.0); EOS # 0.2 10^3/uL (0.0-0.5); EOS % 2.8 % (0.0-3.0); HEMATOCRIT 31.2 % (36.0-47.0); HEMOGLOBIN 9.9 g/dl (12.0-15.5); LYMPH # 1.3 10^3/uL (1.5-5.0); MEAN CORPUSCULAR HEMOGLOBIN 26.8 pg (27.0-33.0); MEAN CORPUSCULAR HGB CONC 31.7 g/dl (32.0-36.5); MEAN CORPUSCULAR VOLUME 84.6 fl (80.0-96.0); MONO # 0.4 10^3/uL (0.0-0.8); MONO % 6.2 % (0.0-5.0); NEUTROPHILS # 5.1 10^3/uL (1.5-8.5); PLATELET COUNT, AUTOMATED 236 10^3/uL (150-450); RED BLOOD COUNT 3.69 10^6/uL (4.00-5.40); WHITE BLOOD COUNT 7.1 10^3/uL (4.0-10.0)
[2019-11-18 06:31] LABS: BLOOD UREA NITROGEN 51 MG/DL (7-18); CARBON DIOXIDE LEVEL 27 MEQ/L (21-32); CHLORIDE LEVEL 111 MEQ/L (98-107); GLOMERULAR FILTRATION RATE 25.2 (>45); GLUCOSE, FASTING 66 MG/DL (70-100); MAGNESIUM LEVEL 1.8 MG/DL (1.8-2.4); POTASSIUM SERUM 3.4 MEQ/L (3.5-5.1); SODIUM LEVEL 145 MEQ/L (136-145)
[2019-11-18 06:53] VITALS: BP 192/100
[2019-11-18] MEDS: CHLORTHALIDONE 25 MG TAB PO SCH (06:58)
[2019-11-18] MEDS: HumaLOG INSULIN (NovoLOG) PER UNIT SC SCH ×4 (07:23→21:00)
[2019-11-18] MEDS ORDERED: amLODIPine 5 MG TAB PO ONE (07:45)
[2019-11-18] MEDS: ASPIRIN 81 MG ENTERIC TAB PO SCH (08:14)
[2019-11-18] MEDS: FUROSEMIDE 100 MG/10 ML VIAL (J1940) IV SCH ×2 (08:15→16:03)
[2019-11-18] MEDS: HEPARIN SOD (PORCINE) 5000 UNITS/ML VIAL (J1644 PER 1000UNITS) SC SCH ×2 (08:15→21:05)
[2019-11-18 08:33] VITALS: BP 158/88
[2019-11-18] MEDS: IPRATROPIUM 0.5MG/ALBUTEROL 2.5MG INH SOL UD 3ML (DUONEB)(J7620) INH SCH ×2 (08:38→19:22)
[2019-11-18] MEDS ORDERED: POTASSIUM CHLORIDE 10 MEQ SR TABLET PO ONE (09:00)
[2019-11-18 09:39] LABS: CK-MB VALUE MASS 1.7 NG/ML (<3.6); CPK CREATINE PHOSPHOKINASE 100 U/L (26-192); TROPONIN I < 0.02 NG/ML (< 0.10)
--- NOTE | 2019-11-18 13:16 | ECGEPIP ---
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
[2019-11-18 14:00] VITALS: BP 160/78
--- NOTE | 2019-11-18 16:50 | IPNPDOC ---
Text Note Date of Service The patient was seen on 11/18/19. NOTE Subjective: Patient is a 64-year-old female who presented to the hospital with congestive heart failure. Patient had an episode of right sided chest pain that she believes was gas pain overnight. Patient was given simethicone and a K pad and slightly resolved. Patient also started having the pain again earlier this morning. Patient pointed to the center of her chest and says that movement of her arms doesn't exacerbate the pain slightly. When patient pushes on her chest she feels it. Patient describes the pain as a dull pain. Patient denies any shortness of breath, sweating, or radiation of the pain. Patient's blood pressure has been suboptimally controlled however, she refuses to take amlodipine as it causes swelling. Patient otherwise feels well. Review of systems General: Patient denies fevers HEENT: Patient denies headaches Cardiovascular: Patient endorses chest pain as described above. Respiratory: Patient denies shortness of breath, cough GI: Patient denies abdominal pain, nausea, vomiting, diarrhea Extremities: Patient denies swelling or pain in extremities Objective: Vitals: (see below) General: Alert and oriented female who was sitting in the bedside chair when I walked in. Patient did not appear to be in any acute distress HEENT: Normocephalic, atraumatic, moist mucous membranes. Neck: Jugular venous distention about 4 cm above the sternal angle. Cardiac: Regular rate and rhythm, no murmurs, normal S1, normal S2 Pulm: Clear to auscultation bilaterally. No wheezes, rhonchi, rales Abd: Nondistended, nontender to palpation, normal bowel sounds Ext: 2+ pitting edema in the bilateral lower extremities up past the level of the knee. Labs (see below) Images: No new imaging has been performed. Assessment: Patient is a 64-year-old female who presents to Hospital shortness of breath which is most likely secondary to acute decompensated diastolic congestive heart failure. Plan 1. Acute hypoxic respiratory failure, resolved. This is most likely secondary to acute decompensated diastolic heart failure. Patient is now off oxygen and we wi ll continue to monitor. Patient continues diuresis with furosemide 60 mg twice a day. 2. Acute exacerbation of diastolic heart failure. Continue treatment as above. 3. Hypertension, status post hypertensive urgency. Continue bisoprolol, chlorthalidone, furosemide, hydralazine. 4. Dyslipidemia. Continue with atorvastatin, ezetimibe, and aspirin 5. Insulin-dependent diabetes mellitus type 2. Continue with sliding scale and Levemir. 6. COPD No evidence of exacerbation at this time. Continue inhaler therapy. 7. History of sleep apnea on CPAP. Continue home CPAP. 8. Chronic kidney disease stage III. Creatinine is at baseline currently continue with diuresis. 9. Leukocytosis. Likely reactive etiologies patient is hemodynamically stable and has no obvious source of infection. Leukocytosis is continuing to improve. 10. Normocytic anemia. Consistent with iron deficiency anemia. Ferritin is normal however, iron and transferrin saturation is low. DVT prophy: Heparin Dispo: Pending continue diuresis and adequate blood pressure control. VS,Codybone, I+O VS, Codybone, I+O Laboratory Tests 11/18/19 05:10 Vital Signs Date Time Temp Pulse Resp B/P (MAP) Pulse Ox O2 Delivery O2 Flow Rate FiO2 11/18/19 14:00 98.4 78 18 160/78 (105) 92 Room Air 11/17/19 08:01 2.0 11/17/19 01:35 32 I&O- Last 24 Hours up to 6 AM 11/18/19 06:00 Intake Total 820 ml Output Total 3100 ml Balance -2280 ml AMARA RUSSELL DO Nov 18, 2019 16:50
[2019-11-18 21:00] VITALS: O2SAT 96
[2019-11-18] MEDS: EZETIMIBE 10 MG TAB (ZETIA) PO SCH (21:03)
[2019-11-18] MEDS: ATORVASTATIN 20 MG TAB PO SCH (21:03)
[2019-11-18] MEDS: LEVEMIR (INSULIN DETEMIR) 1 UNITS/0.01ML SC SCH (21:04)
[2019-11-18] MEDS: bisoproloL fumarate 10 MG TAB PO SCH (21:04)
[2019-11-18 22:00] VITALS: BP 180/100; O2SAT 97
[2019-11-19] MEDS: **hydrALAZINE** 10 MG TAB PO SCH ×4 (00:29→18:04)
[2019-11-19 03:44] VITALS: O2SAT 96
[2019-11-19 05:53] LABS: BASO # 0.1 10^3/uL (0.0-0.2); BASO % 0.6 % (0.0-1.0); EOS # 0.2 10^3/uL (0.0-0.5); EOS % 2.6 % (0.0-3.0); HEMATOCRIT 34.7 % (36.0-47.0); LYMPH # 1.3 10^3/uL (1.5-5.0); LYMPH % 14.8 % (24.0-44.0); MEAN CORPUSCULAR HGB CONC 31.7 g/dl (32.0-36.5); MONO # 0.6 10^3/uL (0.0-0.8); MONO % 6.1 % (0.0-5.0); NEUTROPHILS # 6.8 10^3/uL (1.5-8.5); NEUTROPHILS % 75.6 % (36.0-66.0); PLATELET COUNT, AUTOMATED 286 10^3/uL (150-450); RED BLOOD COUNT 4.08 10^6/uL (4.00-5.40)
[2019-11-19 06:00] VITALS: BP 170/90
[2019-11-19 06:22] LABS: CALCIUM LEVEL 8.2 MG/DL (8.8-10.2); CREATININE FOR GFR 2.1 MG/DL (0.55-1.30); GLOMERULAR FILTRATION RATE 25.2 (>45); POTASSIUM SERUM 3.8 MEQ/L (3.5-5.1)
[2019-11-19] MEDS: IPRATROPIUM 0.5MG/ALBUTEROL 2.5MG INH SOL UD 3ML (DUONEB)(J7620) INH SCH ×2 (07:17→19:03)
[2019-11-19] MEDS ORDERED: POTASSIUM CHLORIDE 10 MEQ SR TABLET PO ONE (08:15)
[2019-11-19] MEDS: FUROSEMIDE 100 MG/10 ML VIAL (J1940) IV SCH (08:37)
[2019-11-19] MEDS: HEPARIN SOD (PORCINE) 5000 UNITS/ML VIAL (J1644 PER 1000UNITS) SC SCH ×2 (08:38→20:19)
[2019-11-19] MEDS: ASPIRIN 81 MG ENTERIC TAB PO SCH (08:38)
[2019-11-19] MEDS: amLODIPine 5 MG TAB PO SCH (08:39)
[2019-11-19] MEDS: HumaLOG INSULIN (NovoLOG) PER UNIT SC SCH ×4 (08:39→20:11)
[2019-11-19] MEDS: CHLORTHALIDONE 25 MG TAB PO SCH (08:42)
--- NOTE | 2019-11-19 11:02 | IPNPDOC ---
Text Note Date of Service The patient was seen on 11/19/19. NOTE Subjective: Patient is a 64-year-old female presented to the hospital with ex acerbation of her congestive heart failure. Patient states chest pain that she is experiencing yesterday has resolved. Patient is wary about going home today she feels that she is not quite ready. Her blood pressure has been suboptimally controlled but the patient to take her amlodipine today. Patient is feeling better however, she still feels that she needs 1 more day in the hospital prior to discharge. Review of systems General: Patient denies fevers HEENT: Patient denies headaches Cardiovascular: Patient denies chest pain Respiratory: Patient denies shortness of breath, cough GI: Patient denies abdominal pain, nausea, vomiting, diarrhea Extremities: Patient denies swelling or pain in extremities Objective: Vitals: (see below) General: Alert and oriented female who is laying in her hospital bed when I walked in the room. Patient does not appear to be in any acute distress until she tried to sit up and had a cramp in her right calf muscle which causes her to be in quite a bit of pain however, after a few minutes of stretching out her calf, this resolved and patient no longer appear to be in any distress. HEENT: Normocephalic, atraumatic, moist mucous membranes. Neck: Jugular venous distention about 2 cm above the sternal angle. Cardiac: Regular rate and rhythm, no murmurs, normal S1, normal S2 Pulm: Clear to auscultation bilaterally. No wheezes, rhonchi, rales Abd: Nondistended, nontender to palpation, normal bowel sounds Ext: 1+ pitting edema bilateral lower extremities. Labs (see below) Images: No new imaging is been performed. Assessment: Patient is a 64-year-old female presented to the hospital should with shortness of breath which is most likely secondary to acute decompensated diastolic congestive heart failure. Plan 1. Acute hypoxic respiratory failure, resolved. This was secondary to acute decompensated diastolic heart failure. Patient is known with oxygen and we will continue to monitor. We have changed patient's diuresis from furosemide 60 mg IV twice a day to 60 mg oral daily. Patient will receive a dose of 60 mg orally this evening. 2. 2 to exacerbation of diastolic congestive heart failure. Continue treatment as above. Patient will need just one more day of hospitalization as the patient does not feel comfortable and wanted to transition her to oral therapy from IV diuretics. 3. Hypertension, status post hypertensive urgency. Patient's blood pressure still suboptimally controlled. Patient did take her amlodipine today and we will continue to monitor. Patient also will continue bisoprolol, chlorthalidone, furosemide, and hydralazine. Blood pressures today taken by me were 154/86 in the right arm and 148/88 in the left arm. These blood pressures were taken lying down. 4. His lipidemia. Continue with atorvastatin, ezetimibe, and aspirin. 5. Insulin-dependent diabetes mellitus type 2. Continue with sliding scale and Levemir. 6. COPD. No evidence of exacerbation at this time. Continue inhaler therapy. 7. History of sleep apnea on CPAP. Patient refuses to wear CPAP. She is on nocturnal oxygen. 8. Chronic kidney disease stage III. Creatinine is currently at baseline with current diuresis. 9. Leukocytosis, resolved. Likely reactive in etiology as patient is hemodynamically stable and there is no obvious source of infection. 10. Normocytic anemia. Patient's current hemoglobin is 11. We'll continue to monitor. DVT prophy: Heparin Dispo: Pending continue diuresis and control of blood pressure. VS,Fishbone, I+O VS, Fishbone, I+O Laboratory Tests 11/19/19 05:07 Vital Signs Date Time Temp Pulse Resp B/P (MAP) Pulse Ox O2 Delivery O2 Flow Rate FiO2 11/19/19 06:00 96.6 82 20 170/90 (116) 92 Room Air 11/19/19 03:44 2.0 28 I&O- Last 24 Hours up to 6 AM 11/19/19 06:00 Intake Total 1260 ml Output Total 4005 ml Balance -2745 ml AMARA RUSSELL DO Nov 19, 2019 11:02
[2019-11-19] MEDS: ACETAMINOPHEN 500 MG TAB PO PRN (11:34)
[2019-11-19 14:00] VITALS: BP 168/88
[2019-11-19] MEDS ORDERED: FUROSEMIDE 20 MG TAB PO ONE (17:00)
[2019-11-19] MEDS: ATORVASTATIN 20 MG TAB PO SCH (20:19)
[2019-11-19] MEDS: LEVEMIR (INSULIN DETEMIR) 1 UNITS/0.01ML SC SCH (20:19)
[2019-11-19] MEDS: EZETIMIBE 10 MG TAB (ZETIA) PO SCH (20:20)
[2019-11-19] MEDS: bisoproloL fumarate 10 MG TAB PO SCH (20:24)
[2019-11-19 21:00] VITALS: O2SAT 96
[2019-11-19 22:00] VITALS: BP 160/90
[2019-11-20 01:07] VITALS: O2SAT 96
[2019-11-20] MEDS: **hydrALAZINE** 10 MG TAB PO SCH ×2 (01:20→06:12)
[2019-11-20] MEDS: ACETAMINOPHEN 500 MG TAB PO PRN (04:29)
[2019-11-20 06:00] VITALS: BP 174/76
[2019-11-20 06:14] LABS: BASO # 0.1 10^3/uL (0.0-0.2); BASO % 0.6 % (0.0-1.0); EOS # 0.2 10^3/uL (0.0-0.5); EOS % 2.8 % (0.0-3.0); HEMATOCRIT 33.1 % (36.0-47.0); HEMOGLOBIN 10.5 g/dl (12.0-15.5); LYMPH # 1.2 10^3/uL (1.5-5.0); LYMPH % 15.2 % (24.0-44.0); MEAN CORPUSCULAR HEMOGLOBIN 27.1 pg (27.0-33.0); MEAN CORPUSCULAR HGB CONC 31.7 g/dl (32.0-36.5); MEAN CORPUSCULAR VOLUME 85.3 fl (80.0-96.0); MONO # 0.6 10^3/uL (0.0-0.8); NEUTROPHILS # 5.8 10^3/uL (1.5-8.5); PLATELET COUNT, AUTOMATED 254 10^3/uL (150-450); RED BLOOD COUNT 3.88 10^6/uL (4.00-5.40); WHITE BLOOD COUNT 7.9 10^3/uL (4.0-10.0)
[2019-11-20 06:43] LABS: CALCIUM LEVEL 8.2 MG/DL (8.8-10.2); CREATININE FOR GFR 2.37 MG/DL (0.55-1.30); POTASSIUM SERUM 3.8 MEQ/L (3.5-5.1)
[2019-11-20] MEDS: IPRATROPIUM 0.5MG/ALBUTEROL 2.5MG INH SOL UD 3ML (DUONEB)(J7620) INH SCH (07:14)
[2019-11-20] MEDS: HumaLOG INSULIN (NovoLOG) PER UNIT SC SCH (07:56)
[2019-11-20] MEDS: ASPIRIN 81 MG ENTERIC TAB PO SCH (07:56)
[2019-11-20 07:57] VITALS: BP 140/86
[2019-11-20] MEDS: amLODIPine 5 MG TAB PO SCH (07:57)
[2019-11-20] MEDS: HEPARIN SOD (PORCINE) 5000 UNITS/ML VIAL (J1644 PER 1000UNITS) SC SCH (07:58)
[2019-11-20] MEDS ORDERED: POTASSIUM CHLORIDE 10 MEQ SR TABLET PO SCH (09:00)
[2019-11-20] MEDS ORDERED: FUROSEMIDE 20 MG TAB PO SCH (09:00)
[2019-11-20] MEDS ORDERED: AMLO25TA PO (10:00)
[2019-11-20] MEDS ORDERED: HYDR10TAB PO (10:00)
[2019-11-20] MEDS: CHLORTHALIDONE 25 MG TAB PO SCH (10:07)
[2019-11-20 10:54] VITALS: O2SAT 95
--- NOTE | 2019-11-20 10:56 | DS.PDOC ---
Discharge Summary General Date of Admission Nov 16, 2019 at 03:39 Date of Discharge 11/20/2019 Primary Care Physician: BREANNA FERMIN MD Attending Physician: KOKI NOBLES MD Discharge Summary PROCEDURES PERFORMED DURING STAY: None. ADMITTING/DISCHARGE DIAGNOSES: 1. Acute hypoxic respiratory failure, resolved 2. Acute exacerbation of diastolic congestive heart failure 3. Hypertension, status post hypertensive urgency 4. Dyslipidemia 5. Insulin-dependent diabetes mellitus type 2 6. COPD 7. Sleep apnea on CPAP, noncompliant with CPAP therapy 8. Chronic kidney disease stage III. 9. Leukocytosis, resolved. 10. Normocytic anemia COMPLICATIONS/CHIEF COMPLAINT: Shortness of breath HISTORY OF PRESENT ILLNESS/HOSPITAL COURSE: Patient is a 64-year-old female who presented to the emergency room with increased shortness of breath. Patient's been having increased shortness of breath over the past few weeks associated with increased leg swelling and orthopnea. Patient has had an increase in her dry cough. In the emergency room, patient was found to have a white blood cell count of 10.7, creatinine 1.7, and pro-NT BNP around 4000. Chest x-ray was done and showed increased faster congestion. Patient was then admitted to the hospital for further management of congestive heart failure. Throughout the patient's hospitalization, patient was diuresed using IV Lasix. Patient had a negative diuresis of 7415 mL. Patient lost about 6 kg of weight while hospit alized. Patient had issues with elevated blood pressure and hydralazine and amlodipine were both started. Patient's blood pressure became better controlled at the time of discharge. Patient was deemed ready for discharge on 11/19/2019 however, patient did not feel confident going home where she lives by herself and wanted at least 1 more night in the hospital. Her diuretics were switched from IV to oral and she was kept for 1 more night for further observation. Patient had episodes of desaturation during her last nights in the hospital. Patient did not wear her CPAP machine while in the hospital although she was asked multiple times by both providers and nursing staff to wear it throughout t he night. I did have a long conversation on the day of discharge with the patient about the benefits of CPAP for sleep apnea. I advised the patient that her blood pressure, heart failure, and COPD as well as her fatigue will be treated with the use of her CPAP machine. I did advise the patient to contact her [employer] if she feels like her mask is too harsh for her to see she can find a mask at work for her. Patient says that she will try to use her CPAP machine at home. Patient was seen ready for discharge on 11/20/2019. DISCHARGE MEDICATIONS: Please see below. ALLERGIES: Please see below. PHYSICAL EXAMINATION ON DISCHARGE: Vitals: (see below) General: Alert and oriented female patient who was sitting in the chair when I walked into the room. Patient does not appear in any acute distress. HEENT: Normocephalic, atraumatic, moist mucous membranes. Neck: No evidence of jugular venous distention. Cardiac: Regular rate and rhythm, no murmurs, normal S1, normal S2 Pulm: Clear to auscultation bilaterally. No wheezes, rhonchi, rales Abd: Nondistended, nontender to palpation, normal bowel sounds Ext: Trace pitting edema around the ankles bilaterally. LABORATORY DATA: Please see below. IMAGING: Patient had a chest x-ray performed on 11/15/2019 that was reported to show chronic stable changes with no focal consolidation or effusion. PROGNOSIS: Fair ACTIVITY: As tolerated. DIET: 2 g sodium with 50 ounce fluid restriction DISCHARGE PLAN/DISPOSITION: Discharge home DISCHARGE INSTRUCTIONS: 1. Follow-up with primary care provider within 5-7 days for electrolytes and renal function testing. 2. Continue Bumex 1 mg daily. 3. Hydralazine 50 mg every 6 hours and amlodipine 7.5 mg daily were added to patient's regimen. Please follow-up on the patient's hypertension. 4. Start wearing CPAP at night and for naps. DISCHARGE CONDITION: Stable. TIME SPENT ON DISCHARGE: Greater than 30 minutes. Vital Signs/I&Os Vital Signs Date Time Temp Pulse Resp B/P (MAP) Pulse Ox O2 Delivery O2 Flow Rate FiO2 11/20/19 07:57 74 140/86 11/20/19 07:14 2 11/20/19 06:00 97.9 22 96 Nasal Cannula 11/20/19 01:07 28 I&O- Last 24 Hours up to 6 AM 11/20/19 06:00 Intake Total 1300 ml Output Total 2200 ml Balance -900 ml Laboratory Data Labs 24H Laboratory Tests 2 11/19/19 12:09: Bedside Glucose (Misc Panel) 162H 11/19/19 16:50: Bedside Glucose (Misc Panel) 155H 11/19/19 19:50: Bedside Glucose (Misc Panel) 220H 11/20/19 05:05: Immature Granulocyte % (Auto) 0.4, Neutrophils (%) (Auto) 73.0H, Lymphocytes (%) (Auto) 15.2L, Monocytes (%) (Auto) 8.0H, Eosinophils (%) (Auto) 2.8, Basophils (%) (Auto) 0.6, Neutrophils # (Auto) 5.8, Lymphocytes # (Auto) 1.2L, Monocytes # (Auto) 0.6, Eosinophils # (Auto) 0.2, Basophils # (Auto) 0.1, Nucleated Red Blood Cells % (auto) 0.0, Anion Gap 6L, Glomerular Filtration Rate 22.0L, Calcium Level 8.2L, Magnesium Level 2.0 CBC/BMP Laboratory Tests 11/20/19 05:05 FSBS Laboratory Tests Test 11/19/19 12:09 11/19/19 16:50 11/19/19 19:50 Range/Units Bedside Glucose (Misc Panel) 162 155 220 80-115 MG/DL Microbiology Microbiology 11/17/19 Stool Occult Blood (GASPER) - Final, Complete 11/16/19 Respiratory Virus Panel (PCR) (GASPER) - Final, Complete 11/16/19 Blood Culture - Preliminary, Resulted No Growth after 72 hours. All specime... 11/16/19 Blood Culture - Preliminary, Resulted No Growth after 72 hours. All specime... Discharge Medications Scheduled Amlodipine Besylate (Amlodipine Besylate) 2.5 Mg Tablet, 7.5 MG PO DAILY Take 3 tabs PO daily Aspirin (Aspirin EC) 81 Mg Tabec, 81 MG PO DAILY, (Reported) Atorvastatin Calcium (Atorvastatin Calcium) 80 Mg Tab, 80 MG PO QHS, (Reported) Bisoprolol Fumarate (Bisoprolol Fumarate) 10 Mg Tab, 10 MG PO DAILY, (Reported) Bumetanide (Bumetanide) 1 Mg Tablet, 1 MG PO DAILY, (Reported) Chlorthalidone (Chlorthalidone) 25 Mg Tab, 25 MG PO DAILY, (Reported) Dulaglutide (Trulicity) 1.5 Mg/0.5 Ml Inj, 1.5 MG SC 1XWK, (Reported) FRIDAYS Ergocalciferol (Vitamin D2) (Vitamin D2) 50,000 Units Cap, 1 CAP PO 1XWK, (Reported) TAKES ON SUNDAY Ezetimibe (Ezetimibe) 10 Mg Tablet, 10 MG PO QHS, (Reported) Fluticasone Furoate (Arnuity Ellipta) 200 Mcg Blst.w.dev, 1 PUFF INH DAILY, (Reported) Hydralazine HCl (Hydralazine HCl) 10 Mg Tablet, 20 MG PO Q6H Take 2 tabs PO every 6 hours Insulin Aspart (Novolog Flexpen) 100 Unit/1 Ml Insuln.pen, 2 UNITS SC AC, (Reported) Insulin Detemir (Levemir) 100 Unit/1 Ml Vial, 40 UNITS SC QHS, (Reported) Ipratropium/Albuterol Sulfate (Iprat-Albut 0.5-3(2.5) mg/3 ml) 3 Ml Ampul.neb, 1 SEGUNDO INH BID, (Reported) Salmeterol (Serevent Diskus) 50 Mcg Blst.w.dev, 1 PUFF INH BID, (Reported) Umeclidinium Champion (Incruse Ellipta) 62.5 Mcg Blst.w.dev, 1 PUFF INH DAILY, (Reported) Scheduled PRN Acetaminophen (Acetaminophen) 500 Mg Tablet, 1,000 MG PO TID PRN for PAIN, (Reported) Albuterol Sulfate (Proair Hfa) 108 Mcg/Act Aer, 2 PUFFS INH Q4H PRN for SHORTNESS OF BREATH, (Reported) Oxycodone HCl/Acetaminophen (Oxycodone-Acetaminophen 5-325) 1 Each Tablet, 1 TAB PO TID PRN for PAIN, (Reported) Allergies Coded Allergies: Penicillins (Verified Allergy, Mild, HIVES, 10/17/19) doxycycline (Verified Allergy, Unknown, 03/30/19) AMARA RUSSELL DO Nov 20, 2019 10:56
[2019-11-21] MEDS ORDERED: BUMETANIDE 1 MG TAB PO SCH (09:00)
== END 2019-11-20 11:36 | disposition home or self-care (01) | DRG 291 ==
LOC: M ED 23:20 → M ED INP 11-16 03:39 → ENRESERVTM 11-16 05:08 → ENRESERVDT 11-16 05:08 → M MSPAV 11-16 06:08
PROVIDERS: ADMIT Internal Medicine; ATTEND Internal Medicine
DX: I13.0 Hypertensive heart and chronic kidney disease with heart failure and stage 1 through stage 4 chronic kidney disease, or unspecified chronic kidney disease (principal); I50.33 Acute on chronic diastolic (congestive) heart failure; J96.01 Acute respiratory failure with hypoxia; J44.9 Chronic obstructive pulmonary disease, unspecified; N18.3 Chronic kidney disease, stage 3 (moderate); I16.0 Hypertensive urgency; Z91.19 Patient's noncompliance with other medical treatment and regimen; E78.5 Hyperlipidemia, unspecified; E11.29 Type 2 diabetes mellitus with other diabetic kidney complication; G47.33 Obstructive sleep apnea (adult) (pediatric); D72.829 Elevated white blood cell count, unspecified; D50.9 Iron deficiency anemia, unspecified; Z79.82 Long term (current) use of aspirin; Z79.899 Other long term (current) drug therapy; Z79.4 Long term (current) use of insulin; Z88.0 Allergy status to penicillin; Z88.8 Allergy status to other drugs, medicaments and biological substances; E66.01 Morbid (severe) obesity due to excess calories; Z96.641 Presence of right artificial hip joint; Z96.642 Presence of left artificial hip joint; D63.1 Anemia in chronic kidney disease

== ENCOUNTER → 2020-01-21 | Outpatient (REF) | payer MEDICARE, OTHER ==
[~2020-01-21] MED LIST changes: +AMLO25TA PO; +HYDR10TAB PO; +VITA50005 PO
[2020-01-21 13:20] LABS: CALCIUM LEVEL 8.6 MG/DL (8.8-10.2); CREATININE FOR GFR 2.06 MG/DL (0.55-1.30); GLOMERULAR FILTRATION RATE 25.8 (>45); POTASSIUM SERUM 4.8 MEQ/L (3.5-5.1)
[2020-01-21 13:24] LABS: TOTAL 25(OH) VITAMIN D 21.2 NG/ML (30.0-100.0)
[2020-01-21 13:28] LABS: HEMOGLOBIN A1c 10.9 %
== END ==
LOC: M SFHCPLAZ 09:46
PROVIDERS: ATTEND Family Medicine
DX: E11.22 Type 2 diabetes mellitus with diabetic chronic kidney disease (principal); N18.3 Chronic kidney disease, stage 3 (moderate); E55.9 Vitamin D deficiency, unspecified

== ENCOUNTER 2020-04-16 12:14 | Inpatient (IN) | payer MEDICARE ==
[~2020-04-16] VITALS: Ht 149.9 cm; Wt 96.1 kg
[~2020-04-16 12:14] MED LIST changes: -AMLO10TA5; -AMLO10TA5 PO; +AMLO1TAB24 PO; +AMLO1TAB25; +AMLO1TAB25 PO; -AMLO5TAB6 PO; +ARTH650T11 PO; -ARTH650T4 PO; -ASPI81TA85 PO; +ASPI81TA86 PO; -IPRA0.00 INH; +PANT40TA29 PO; -PANT40TA3 PO
[2020-04-16] MEDS ORDERED: methylPREDNISolone 125MG 2ML VIAL IV ONE (13:00)
--- NOTE | 2020-04-16 13:09 | REP ---
PORTABLE CHEST: AP portable view of the chest is performed and compared to prior studies, most recently, 11/15/2019. There is cardiomegaly with vascular congestion and diffuse interstitial edema. There is some mild tortuosity and calcification of the thoracic aorta. Mediastinal silhouette is unchanged. Metallic plate and screws are seen in the cervical spine. IMPRESSION: Cardiomegaly with vascular congestion and diffuse interstitial edema. Findings are consistent with congestive heart failure. Electronically Signed by Cameron Mortensen MD 04/19/2020 09:38 A
[2020-04-16 13:10] LABS: BASO % 0.4 % (0.0-1.0); EOS # 0.2 10^3/uL (0.0-0.5); EOS % 2.3 % (0.0-3.0); HEMATOCRIT 28.4 % (36.0-47.0); LYMPH # 0.9 10^3/uL (1.5-5.0); LYMPH % 12.8 % (24.0-44.0); MEAN CORPUSCULAR HGB CONC 31.7 g/dl (32.0-36.5); MEAN CORPUSCULAR VOLUME 85.3 fl (80.0-96.0); MONO # 0.3 10^3/uL (0.0-0.8); MONO % 4.5 % (0.0-5.0); NEUTROPHILS # 5.9 10^3/uL (1.5-8.5); NEUTROPHILS % 79.5 % (36.0-66.0); PLATELET COUNT, AUTOMATED 230 10^3/uL (150-450); RED BLOOD COUNT 3.33 10^6/uL (4.00-5.40); WHITE BLOOD COUNT 7.4 10^3/uL (4.0-10.0)
[2020-04-16] MEDS ORDERED: NITROGLYCERIN 0.4 MG SUBL TABLET SL STA (13:11)
[2020-04-16] MEDS ORDERED: NITROGLYCERIN 2% OINT 1 GM *U/D* PKT TOP ONE (13:15)
[2020-04-16 13:36] LABS: ALBUMIN 2.9 GM/DL (3.2-5.2); ALT/SGPT 23 U/L (12-78); BILIRUBIN,DIRECT < 0.1 MG/DL (0.0-0.2); BILIRUBIN,TOTAL 0.3 MG/DL (0.2-1.0); CK-MB VALUE MASS 3.7 NG/ML (<3.6); CPK CREATINE PHOSPHOKINASE 132 U/L (26-192); NT-PRO BNP 2885 PG/ML (<125); TROPONIN I < 0.02 NG/ML (< 0.10)
[2020-04-16] MEDS ORDERED: FUROSEMIDE 40MG/4ML VIAL (J1940) IV ONE (13:45)
[2020-04-16] MEDS ORDERED: CALC1CAP31 PO (14:15)
[2020-04-16] MEDS ORDERED: GABA-1171 PO (14:15)
[2020-04-16] MEDS ORDERED: AMLO2.5T3 PO (14:15)
[2020-04-16] MEDS ORDERED: hydrALAZINE 20MG/ML 1ML VIAL (J0360 PER 20MG) IV STA (14:33)
--- NOTE | 2020-04-16 14:34 | HPEPDOC ---
General Date of Admission 04/16/20 Date of Service: Apr 16, 2020 Chief Complaint The patient is a 64-year-old female admitted with a reason for visit of Sob X 1WK, Worse Today. Source: Patient Exam Limitations: No limitations Timing/Duration: Day(s) Severity: Moderate Associated Symptoms: Shortness of breath History of Present Illness Patient is 64 years old female with past medical history of CHF, COPD, obstructive sleep apnea, diabetes type 2 presented hospital with increased shor tness of breath. Patient stated that she has been having increased shortness of breath for past 2 weeks associated with increased leg swelling, orthopnea. Also patient has increased dry cough without sputum production. In emergency room patient was found to have no leukocytosis, BNP around 2800. Chest x-ray was done and showed increased vascular congestion with cardiomegaly. Patient denied fever, chest pain, palpitations, abdominal pain, diarrhea or dysuria Home Medications Scheduled Aspirin (Aspirin EC) 81 Mg Tabec, 81 MG PO DAILY, (Reported) Atorvastatin Calcium (Atorvastatin Calcium) 80 Mg Tab, 80 MG PO QHS, (Reported) Bisoprolol Fumarate (Bisoprolol Fumarate) 10 Mg Tab, 10 MG PO DAILY, (Reported) Bumetanide (Bumetanide) 1 Mg Tablet, 1 MG PO DAILY, (Reported) Calcitriol (Calcitriol) 0.25 Mcg Capsule, 0.25 MCG PO 3XW, (Reported) SUN, SUN, SUN Chlorthalidone (Chlorthalidone) 25 Mg Tab, 25 MG PO DAILY, (Reported) Dulaglutide (Trulicity) 1.5 Mg/0.5 Ml Inj, 1.5 MG SC 1XWK, (Reported) FRIDAYS Ezetimibe (Ezetimibe) 10 Mg Tablet, 10 MG PO QHS, (Reported) Fluticasone Furoate (Arnuity Ellipta) 200 Mcg Blst.w.dev, 1 PUFF INH DAILY, (Reported) Gabapentin (Gabapentin) 100 Mg Capsule, 100 MG PO BID, (Reported) Insulin Aspart (Novolog Flexpen) 100 Unit/1 Ml Insuln.pen, 2 UNITS SC AC, (Reported) Insulin Detemir (Levemir) 100 Unit/1 Ml Vial, 40 UNITS SC QHS, (Reported) Salmeterol (Serevent Diskus) 50 Mcg Blst.w.dev, 1 PUFF INH BID, (Reported) Umeclidinium [place] (Incruse Ellipta) 62.5 Mcg Blst.w.dev, 1 PUFF INH DAILY, (Reported) Scheduled PRN Acetaminophen (Acetaminophen) 500 Mg Tablet, 1,000 MG PO TID PRN for PAIN, (Reported) Albuterol Sulfate (Proair Hfa) 108 Mcg/Act Aer, 2 PUFFS INH Q4H PRN for SHORTNESS OF BREATH, (Reported) Ipratropium/Albuterol Sulfate (Iprat-Albut 0.5-3(2.5) mg/3 ml) 3 Ml Ampul.neb, 1 VIAL NEB QID PRN for SOB/WHEEZING, (Reported) Allergies Coded Allergies: Penicillins (Verified Allergy, Mild, HIVES, 10/17/19) doxycycline (Verified Allergy, Unknown, 03/30/19) Past Medical History Medical History 1. COPD, not oxygen or steroid dependent. 2. History of obstructive sleep apnea. 3. History of CKD, stage III, likely secondary to diabetes. 4. History of insulin-dependent diabetes mellitus, type 2. 5. History of morbid obesity. 6. History of hypertension. 7. History of hyperlipidemia. Surgical History 1. Bilateral hip replacement. 2. Lumbar spine surgery. 3. Spinal cervical fusion. 4. Cataract surgery. 5. Bilateral inguinal hernia repairs also. Family History Family History Notable for father who from complications of heart disease at age 56. Her mother at age 97 from a heart attack. Her father also had a history of diabetes and hypertension. Social History * Smoker: former Smoker Alcohol: Denies Drugs: denies A-FIB/CHADSVASC A-FIB History Current/History of A-Fib/PAF?: No Current PO Anticoag Therapy: No Review of Systems Constitutional: Reports: Fatigue; Denies: Chills, Fever Eyes: Denies: Pain, Vision change ENT: Denies: Head Aches Skin: Denies: Rash Pulmonary: Reports: Dyspnea, Cough Cardiovascular: Reports: Orthopnea, Paroxysmal Noc. Dyspnea, Edema; Denies: Chest Pain, Palpitations Gastrointestinal: Denies: Nausea, Vomiting Genitourinary: Denies: Dysuria, Frequency Hematologic: Denies: Bruising Endocrine: Denies: Polydipsia, Polyphagia Musculoskeletal: Denies: Neck Pain Neurological: Denies: Weakness Psych: Reports: Mood Normal Physical Examination General Exam: Positive: Alert, Cooperative Eye Exam: Positive: PERRLA ENT Exam: Positive: Atraumatic Neck Exam: Positive: Supple, JVD Chest Exam: Positive: Rales, Diminished Heart Exam: Positive: Rate Normal Telemetry: Positive: No significant arrhythmia Abdomen Exam: Positive: Normal bowel sounds Extremity Exam: Negative: Clubbing, Cyanosis Skin Exam: Positive: Nl turgor and temperature Neuro Exam: Positive: Strength at 5/5 X4 ext, Cranial Nerves 3-12 NL Psych Exam: Positive: Mental status NL Vital Signs Vital Signs Date Time Temp Pulse Resp B/P (MAP) Pulse Ox O2 Delivery O2 Flow Rate FiO2 04/16/20 13:46 69 20 180/82 (114) 93 Room Air 04/16/20 12:15 98.5 Laboratory Data Labs 24H Laboratory Tests 2 04/16/20 12:53: Immature Granulocyte % (Auto) 0.5, Neutrophils (%) (Auto) 79.5H, Lymphocytes (%) (Auto) 12.8L, Monocytes (%) (Auto) 4.5, Eosinophils (%) (Auto) 2.3, Basophils (%) (Auto) 0.4, Neutrophils # (Auto) 5.9, Lymphocytes # (Auto) 0.9L, Monocytes # (Auto) 0.3, Eosinophils # (Auto) 0.2, Basophils # (Auto) 0.0, Nucleated Red Blood Cells % (auto) 0.0, Total Bilirubin 0.3, Direct Bilirubin < 0.1, Aspartate Amino Transf (AST/SGOT) 11, Alanine Aminotransferase (ALT/SGPT) 23, Alkaline Phosphatase 77, Total Creatine Kinase 132, Creatine Kinase MB 3.7H, Creatine Kinase MB Relative Index 2.80, Troponin I < 0.02, HJ-Jhv-Y-Type Natriuretic Peptide 2885H, Total Protein 6.0L, Albumin 2.9L, Albumin/Globulin Ratio 0.9L 04/16/20 12:57: POC Glucose (Misc Panel) 109H, POC Sodium (Misc Panel) 144, POC Potassium (Misc Panel) 4.0, POC Chloride (Misc Panel) 113H, POC Total CO2 (Misc Panel) 21.0L, POC Blood Urea Nitrogen (Misc Panel 40H, POC Ionized Calcium (Misc Panel) 4.5, POC Creatinine (Misc Panel) 2.1H, POC Hematocrit (Misc Panel) 25.0L 04/16/20 13:09: POC Troponin I (Misc) 0.02 CBC/BMP Laboratory Tests 04/16/20 12:53 Assessment/Plan Patient is 64 years old female with past medical history of CHF, COPD, obstructive sleep apnea, diabetes type 2 presented hospital with increased shortness of breath. Patient stated that she has been having increased shortness of breath for past 2 weeks associated with increased leg swelling, orthopnea. Also patient has increased dry cough without sputum production. In emergency room patient was found to have no leukocytosis, BNP around 2800. Chest x-ray was done and showed increased vascular congestion with cardiomegaly. Patient denied fever, chest pain, palpitations, abdominal pain, diarrhea or dysuria Problems (1) Acute on chronic diastolic (congestive) heart failure Status: Acute Problem Text: Cardiac diet I's and O's Lasix IV Daily weight Fluid restriction to 1500 mL Echo (2) DM2 (diabetes mellitus, type 2) Status: Chronic Problem Text: Diabetes diet Insulin sliding scale Detemir 40 units (3) MARIZA on CPAP Status: Chronic Problem Text: CPAP daily at bedtime (4) COPD (chronic obstructive pulmonary disease) Status: Chronic Problem Text: Not in acute exacerbation Shortness of breath most likely associated with CHF exacerbation Continue inhalers (5) Hypertensive urgency Status: Acute Problem Text: Most likely secondary to CHF exacerbation and noncompliance to cardiac medications Continue home meds Captopril by mouth Vital signs every 4 hours Plan / VTE VTE Prophylaxis Ordered?: Yes ZHEN PATEL DO Apr 16, 2020 14:34
[2020-04-16] MEDS ORDERED: IPRATROPIUM 0.5MG/ALBUTEROL 2.5MG INH SOL UD 3ML (DUONEB) NEB PRN (14:45)
[2020-04-16] MEDS ORDERED: GLUCOSE 4GM CHEW TABLET PO PRN (14:45)
[2020-04-16] MEDS ORDERED: DEXTROSE 50% 50 ML SYRINGE IV PRN (14:45)
[2020-04-16] MEDS ORDERED: ALBUTEROL 90 MCG/ACT 8GM HFA INHALER INH PRN (14:45)
[2020-04-16] MEDS ORDERED: GLUCAGON INJ 1MG VIAL SC PRN (14:45)
[2020-04-16] MEDS ORDERED: CAPTOpril 6.25 MG PER 1/2 TABLET PO ONE (14:45)
[2020-04-16 16:03] VITALS: BP 200/100
[2020-04-16] MEDS: CAPTOpril 6.25 MG PER 1/2 TABLET PO SCH ×3 (16:59→18:00)
[2020-04-16 17:50] VITALS: BP 202/98
[2020-04-16] MEDS: HumaLOG INSULIN (NovoLOG) PER UNIT SC SCH ×2 (17:52→20:59)
[2020-04-16] MEDS: hydrALAZINE 20MG/ML 1ML VIAL (J0360 PER 20MG) IV PRN ×2 (17:55→20:13)
[2020-04-16] MEDS ORDERED: SLF 3 ML SYR IV PRN (18:45)
[2020-04-16 18:50] VITALS: BP 165/74
[2020-04-16] MEDS ORDERED: NITROGLYCERIN 0.3 MG SUBL TAB SL PRN (19:00)
[2020-04-16] MEDS ORDERED: NITROGLYCERIN 0.4 MG SUBL TABLET SL PRN (19:15)
[2020-04-16 20:00] VITALS: BP 188/86
[2020-04-16] MEDS: ATORVASTATIN 20 MG TAB PO SCH (20:11)
[2020-04-16] MEDS: ACETAMINOPHEN TAB 650MG DOSE (2X325MG) PO PRN (20:12)
[2020-04-16] MEDS: GABAPENTIN 100 MG CAP PO SCH (20:12)
[2020-04-16] MEDS: HEPARIN SOD (PORCINE) 5000UNITS/ML 1ML VIAL/SYRINGE SC SCH (20:12)
[2020-04-16] MEDS: EZETIMIBE 10 MG TAB (ZETIA) PO SCH (20:12)
[2020-04-16] MEDS: SALMETEROL DISKUS 50MCG INHALER (SEREVENT) INH SCH (20:18)
[2020-04-16] MEDS: LEVEMIR (INSULIN DETEMIR) 1 UNITS/0.01ML SC SCH (20:59)
[2020-04-17] VITALS: BP 172/88
[2020-04-17] MEDS ORDERED: FUROSEMIDE 40MG/4ML VIAL (J1940) IV SCH
[2020-04-17] MEDS: SIMETHICONE 80 MG CHEW TAB PO PRN ×2 (00:10→20:53)
[2020-04-17] MEDS: ACETAMINOPHEN TAB 650MG DOSE (2X325MG) PO PRN ×2 (00:11→20:53)
[2020-04-17] MEDS: FUROSEMIDE 40MG/4ML VIAL (J1940) IV SCH ×4 (00:12→23:48)
[2020-04-17] MEDS: SLF 3 ML SYR IV SCH ×4 (00:12→22:00)
[2020-04-17] MEDS: MORPHINE 2 MG/ML 1ML VIAL (J2270) IV PRN (02:15)
[2020-04-17 04:00] VITALS: BP 158/86
[2020-04-17 05:14] LABS: HEMATOCRIT 27.9 % (36.0-47.0); HEMOGLOBIN 8.7 g/dl (12.0-15.5); MEAN CORPUSCULAR HEMOGLOBIN 26.7 pg (27.0-33.0); MEAN CORPUSCULAR HGB CONC 31.2 g/dl (32.0-36.5); MEAN CORPUSCULAR VOLUME 85.6 fl (80.0-96.0); PLATELET COUNT, AUTOMATED 248 10^3/uL (150-450); RED BLOOD COUNT 3.26 10^6/uL (4.00-5.40); WHITE BLOOD COUNT 10.7 10^3/uL (4.0-10.0)
[2020-04-17 05:38] LABS: ALBUMIN 2.6 GM/DL (3.2-5.2); BILIRUBIN,TOTAL 0.5 MG/DL (0.2-1.0); CALCIUM LEVEL 7.8 MG/DL (8.8-10.2); CREATININE FOR GFR 2.42 MG/DL (0.55-1.30); GLOMERULAR FILTRATION RATE 21.4 (>45); POTASSIUM SERUM 4.3 MEQ/L (3.5-5.1); TOTAL PROTEIN 5.9 GM/DL (6.4-8.2)
[2020-04-17 08:00] VITALS: BP 180/86
[2020-04-17] MEDS: HumaLOG INSULIN (NovoLOG) PER UNIT SC SCH ×6 (08:20→20:54)
--- NOTE | 2020-04-17 09:29 | ECGEPIP ---
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
[2020-04-17] MEDS: SALMETEROL DISKUS 50MCG INHALER (SEREVENT) INH SCH ×2 (11:15→20:41)
[2020-04-17] MEDS: HEPARIN SOD (PORCINE) 5000UNITS/ML 1ML VIAL/SYRINGE SC SCH ×2 (11:15→20:54)
[2020-04-17] MEDS: bisoproloL fumarate 10 MG TAB PO SCH (11:16)
[2020-04-17] MEDS: ASPIRIN 81 MG ENTERIC TAB PO SCH (11:17)
[2020-04-17] MEDS: GABAPENTIN 100 MG CAP PO SCH ×2 (11:17→20:53)
[2020-04-17 12:00] VITALS: BP 148/78
[2020-04-17 16:00] VITALS: BP 144/74
--- NOTE | 2020-04-17 16:06 | IPNPDOC ---
Date Seen The patient was seen on 04/17/20. Progress Note Note written by Emelia Prince MD and reviewed. I have personally evaluated and examined the patient. Discussed with resident regarding plan of care and agree with the assessment and plan. Subjective: Patient seen at bedside on 04/17/2020. Mrs. Irving is sitting in chair comfortably. She is speaking full sentences. She tells her shortness of breath has improved since admission, but reports having an episode of chest pain with palpitation overnight, centrally located and some heaviness in her left arm [Troponins negative]. She denies having chest pain now. Also complains of having pain in the sides of her back laterally, intermittently. She reports having headache overnight and in the morning [most likely due to her medication]. He denies having fever, chills, abdominal pain, diarrhea or dysuria. Objective: General: Patient is awake, alert, oriented times three, sitting in chair, no apparent distress. Eyes: Conjunctiva clear. EOM full, Fundus: not visualized. ENT: Hearing Bilateral normal. No nasal deviation. Cardiovascular: S1, S2, normal rhythm, no murmur, rub, or gallop Respiratory: Fine crackles on the right side of the chest. No rhonchi, wheezes or rubs. Abdomen: Soft, bowel sounds positive, no bruits. No tenderness on palpation. Liver edge, spleen, kidney not felt, no masses. Extremities: No clubbing or cyanosis. Pitting pedal edema up to the knee, her edema improved from last night [per Patient]. She reports having some pain in her popliteal region because of the fluid in her legs. There is no redness noted. 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 Skin: No rashes, lesions, ulcerations, subcutaneous nodules or induration. Assessment: Mrs. Irving is a 64-year-old female with a past medical history of this CHF, COPD [not oxygen or steroid dependent], MARIZA[on CPAP at home], insulin-dependent diabetes mellitus, HTN, HDL, CKD, stage III [secondary to DM II] presented to the ED with increased shortness of breath since 2 weeks associated with pedal edema extending up to her knee, orthopnea, increased dry cough. She came in with a high blood pressure of 236/106. Plan: Acute exacerbation of diastolic heart failure: She is on Lasix 40 mg every 8 hours, will continue monitoring her BUN/creatinine, and blood pressure. We will continue monitoring her input and output. She has mild elevation of her white count[10.7], she had no leukocytosis on admission, BMP: 2885[elevated]. Aspirin 81 mg. She had an echo 10/17/2019, ejection fraction of 75%, Impression: mildly dilated left atrium with grade 2 Left ventricle diastolic dysfunction and elevated mean left arterial pressure. Moderate concentric left ventricle hypertrophy with hyperkinetic wall movement. Mildly dilated right heart chambers, left) to the free wall motion and Doppler evidence of at least moderate pulmonary hypertension. Slightly dilated inferior vena cava with reduced respiratory collapse in keeping with an elevated central venous pressure/right heart failure. Mild aortic valvular sclerosis with functional abnormality. Slightly thickened mitral annulus but normal appearing leaflets and leaflet motion without posterior systolic buckling. Mild mitral insufficiency. Normal appearing tricuspid valve with mild insufficiency. Hypertension: Status post hypertensive urgency. 2/2 CHF exacerbation. Continue home medication bisoprolol. Hydralazine when necessary. She is on 2 g sodium diet. Diabetes mellitus type 2: She is on sliding scale, will monitor and adjust. Levemir 40 units, Obstructive sleep apnea: Patient is on CPAP at home. COPD: Continue home medication. Salmeterol 1 puff twice a day, continue spirometry. Dyslipidemia: Continue home medication. Atorvastatin 80 mg, Ezetimibe 10mg. DVT prophylaxis: Heparin 5000 units. VS, I&O, [facility] Sign[facility]/I&O Vital Signs Date Time Temp Pulse Resp B/P (MAP) Pulse Ox O2 Delivery O2 Flow Rate FiO2 04/17/20 12:00 98.1 79 18 148/78 (101) 96 Room Air 04/17/20 04:00 2.0 I&O- Last 24 Hours up to 6 AM 04/17/20 06:00 Intake Total 360 ml Output Total 2336 ml Balance -1976 ml Laboratory Data 24H LABS Laboratory Tests 2 04/16/20 17:17: Bedside Glucose (Misc Panel) 157H 04/16/20 19:39: Troponin I < 0.02 04/16/20 20:16: Bedside Glucose (Misc Panel) 370H 04/17/20 04:50: Nucleated Red Blood Cells % (auto) 0.0, Anion Gap 8, Glomerular Filtration Rate 21.4L, Calcium Level 7.8L, Magnesium Level 2.0, Total Bilirubin 0.5#, Aspartate Amino Transf (AST/SGOT) 10, Alanine Aminotransferase (ALT/SGPT) 20, Alkaline Phosphatase 75, Total Protein 5.9L, Albumin 2.6L, Albumin/Globulin Ratio 0.8L 04/17/20 13:03: Bedside Glucose (Misc Panel) 274H CBC/BMP Laboratory Tests 04/17/20 04:50 DONNY DELUCA MD Apr 17, 2020 16:06
[2020-04-17 20:00] VITALS: BP 158/84
[2020-04-17] MEDS: ATORVASTATIN 20 MG TAB PO SCH (20:53)
[2020-04-17] MEDS: LEVEMIR (INSULIN DETEMIR) 1 UNITS/0.01ML SC SCH (20:54)
[2020-04-17] MEDS: EZETIMIBE 10 MG TAB (ZETIA) PO SCH (20:54)
[2020-04-18] VITALS: BP 148/82
[2020-04-18 04:00] VITALS: BP 148/76
[2020-04-18] MEDS: SLF 3 ML SYR IV SCH ×3 (06:22→20:58)
[2020-04-18] MEDS: HumaLOG INSULIN (NovoLOG) PER UNIT SC SCH ×7 (07:30→20:59)
[2020-04-18] MEDS: SALMETEROL DISKUS 50MCG INHALER (SEREVENT) INH SCH ×2 (07:46→20:00)
[2020-04-18 08:00] VITALS: BP 128/82
[2020-04-18] MEDS: FUROSEMIDE 40MG/4ML VIAL (J1940) IV SCH ×2 (09:49→16:40)
[2020-04-18] MEDS: GABAPENTIN 100 MG CAP PO SCH ×2 (09:50→20:57)
[2020-04-18] MEDS: HEPARIN SOD (PORCINE) 5000UNITS/ML 1ML VIAL/SYRINGE SC SCH ×2 (09:50→20:59)
[2020-04-18] MEDS: ASPIRIN 81 MG ENTERIC TAB PO SCH (09:50)
[2020-04-18] MEDS: bisoproloL fumarate 10 MG TAB PO SCH (09:51)
[2020-04-18 12:00] VITALS: BP 144/64
--- NOTE | 2020-04-18 12:52 | IPNPDOC ---
Date Seen The patient was seen on 04/18/20. Progress Note SUBJECTIVE: Patient reported feeling dizzy this morning when she was walking out of the bathroom but currently feels ok lying in bed. Has some SOB that is unchanged, afebrile overnight. Discussed about COVID, patient states that her symptoms are usual for her CHF but will monitor closely and if she develops evidence of infection/respiratory symptoms, will check her for COVID as well. OBJECTIVE PHYSICAL EXAMINATION: VITAL SIGNS: Please see below. General: No acute distress, Alert Eyes: Normal sclera, EOMI HENT: Atraumatic Cardiovascular: Normal rate, normal rhythm. 1-2+ pitting edema b/l. Pulmonary: Minimal rochi to lunch bases, no wheezing GI: Soft, nontender, nondistended Skin: Warm and dry Neuro: CN grossly intact. No focal deficits. Strengths equal b/l. Psych: oriented x 3 LABORATORY DATA, IMAGING STUDIES, MICROBIOLOGY: Please see below. Assessment AND PLAN: Plan: Acute on chronic HFpEF: - diuresing well on lasix 40mg IV q8. LE edema still present. - c/w Fluid restriction. Monitor I/O. - ECHO 10/20, EF 75%. Hypertension: HTN urgency upon arrival. BP had improved. c/w home med bisoprolol. Diabetes mellitus type 2: ISS + Levemir 40 units daily Obstructive sleep apnea: Patient is on CPAP at home. COPD: Salmeterol 1 puff twice a day, continue spirometry. HLD- Atorvastatin 80 mg, Ezetimibe 10mg. DVT prophylaxis: HSQ VS, I&O, 24H, Fishbone Vital Signs/I&O Vital Signs Date Time Temp Pulse Resp B/P (MAP) Pulse Ox O2 Delivery O2 Flow Rate FiO2 04/18/20 09:51 63 128/82 04/18/20 08:00 Room Air 04/18/20 04:00 96.6 16 98 04/17/20 04:00 2.0 I&O- Last 24 Hours up to 6 AM 04/18/20 06:00 Intake Total 1200 ml Output Total 4100 ml Balance -2900 ml Laboratory Data 24H LABS Laboratory Tests 2 04/17/20 13:03: Bedside Glucose (Misc Panel) 274H 04/17/20 17:28: Bedside Glucose (Misc Panel) 223H 7/18/20 20:40: Bedside Glucose (Misc Panel) 227H 04/18/20 08:40: Bedside Glucose (Misc Panel) 96 04/18/20 12:20: Bedside Glucose (Misc Panel) 235H DONNY DELUCA MD Apr 18, 2020 12:51
--- NOTE | 2020-04-18 13:34 | ECGEPIP ---
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
--- NOTE | 2020-04-18 13:53 | ECHO ---
DATE OF STUDY: 04/17/2020 DATE OF : 1955 AGE: 64 REFERRING PROVIDER: Dr. Paula REASON FOR STUDY: Heart failure. PATIENT LOCATION: Room 3213 2-D MEASUREMENTS: IVS: 1.6 cm LV: 4.4 cm LVPW: 1.8 cm LA: 3.9 cm Aorta: 2.7 cm IVC: 1.75 cm DOPPLER MEASUREMENTS: Peak velocity across the aortic valve: 1.9 m/s Peak velocity across the LVOT: 1.1 m/s Peak gradient across the aortic valve: 15 mmHg Mean gradient across the aortic valve: 8 mmHg Mitral E: 1.2 Mitral A: 1.0 Ratio: 1.2 Maximum tricuspid valve velocity: 2.6 m/s 2-D COMMENTS: 1. Normal left ventricular size with moderately increased left ventricular wall thickness. Left ventricular systolic function is normal with a left ventricular ejection fraction estimated at 60-65%. 2. Normal left atrium. Normal right atrium and right ventricle. 3. The atrial septum appeared to be normal without evidence of defect or shunt. 4. Normal aortic root. 5. No pericardial effusion seen. 6. Mildly calcified aortic valve with normal leaflet excursion. Mildly calcified mitral annulus with normal anterior mitral valve leaflet motion. Normal tricuspid valve. The pulmonic valve and proximal pulmonary artery branches were not well visualized. 7. The inferior vena cava was normal in size, central venous pressure is most likely normal. DOPPLER: It detects trace mitral regurgitation, mild tricuspid regurgitation. The calculated pulmonary artery systolic pressure varies between 30-40 mmHg. Assessment of the left ventricular diastolic function appeared to be normal. IMPRESSION: 1. Normal global left ventricular systolic function. Left ventricular diastolic function assessment also appeared to be normal. 2. Aortic valve sclerosis with trivial aortic stenosis, but no aortic regurgitation. 3. Mitral annulus calcification with trace mitral regurgitation. 4. Mild tricuspid regurgitation with mild pulmonary hypertension. 7. Prior study was on 10/17/2019 and at that time the gradient across the aortic valve was lower, but she still does not make it for aortic stenosis. VICTOR HUGO
[2020-04-18 16:00] VITALS: BP 133/78
[2020-04-18 20:00] VITALS: BP 138/80
[2020-04-18] MEDS: ATORVASTATIN 20 MG TAB PO SCH (20:57)
[2020-04-18] MEDS: EZETIMIBE 10 MG TAB (ZETIA) PO SCH (20:57)
[2020-04-18] MEDS: LEVEMIR (INSULIN DETEMIR) 1 UNITS/0.01ML SC SCH (20:58)
[2020-04-19] VITALS (8 sets, daily range): BP systolic 128–200; BP diastolic 68–100
[2020-04-19 04:50] LABS: HEMATOCRIT 29.9 % (36.0-47.0); HEMOGLOBIN 9.2 g/dl (12.0-15.5); MEAN CORPUSCULAR HEMOGLOBIN 26.7 pg (27.0-33.0); MEAN CORPUSCULAR HGB CONC 30.8 g/dl (32.0-36.5); MEAN CORPUSCULAR VOLUME 86.7 fl (80.0-96.0); PLATELET COUNT, AUTOMATED 245 10^3/uL (150-450); RED BLOOD COUNT 3.45 10^6/uL (4.00-5.40)
[2020-04-19 05:14] LABS: CALCIUM LEVEL 7.3 MG/DL (8.8-10.2); CREATININE FOR GFR 2.28 MG/DL (0.55-1.30); POTASSIUM SERUM 3.9 MEQ/L (3.5-5.1)
[2020-04-19] MEDS: SLF 3 ML SYR IV SCH ×3 (06:06→22:00)
[2020-04-19] MEDS: HumaLOG INSULIN (NovoLOG) PER UNIT SC SCH ×7 (09:05→21:20)
[2020-04-19] MEDS: CALCITRIOL 0.25 MCG CAP (S0169) PO SCH (09:06)
[2020-04-19] MEDS: bisoproloL fumarate 10 MG TAB PO SCH (09:06)
[2020-04-19] MEDS: ASPIRIN 81 MG ENTERIC TAB PO SCH (09:06)
[2020-04-19] MEDS: HEPARIN SOD (PORCINE) 5000UNITS/ML 1ML VIAL/SYRINGE SC SCH ×2 (09:06→21:18)
[2020-04-19] MEDS: GABAPENTIN 100 MG CAP PO SCH ×2 (09:06→21:20)
[2020-04-19] MEDS: SALMETEROL DISKUS 50MCG INHALER (SEREVENT) INH SCH ×2 (09:27→20:32)
[2020-04-19] MEDS: ACETAMINOPHEN TAB 650MG DOSE (2X325MG) PO PRN ×2 (13:07→21:18)
[2020-04-19] MEDS: FUROSEMIDE 40MG/4ML VIAL (J1940) IV SCH ×2 (16:00)
--- NOTE | 2020-04-19 16:04 | IPNPDOC ---
Date Seen The patient was seen on 04/19/20. Progress Note SUBJECTIVE: Patient reports feeling lethargic with persistent LE edema. States that she is SOB with ambulation. Has been diuresing very well but weight doesn't seem to change that much from admission. -3.2L output yesterday. Afebrile overnight, WBC 8.0 OBJECTIVE PHYSICAL EXAMINATION: VITAL SIGNS: Please see below. General: No acute distress, Alert Eyes: Normal sclera, EOMI HENT: Atraumatic Cardiovascular: Normal rate, normal rhythm. 1-2+ pitting edema b/l. Pulmonary: Minimal rochi to lunch bases, no wheezing GI: Soft, nontender, nondistended Skin: Warm and dry Neuro: CN grossly intact. No focal deficits. Strengths equal b/l. Psych: oriented x 3 LABORATORY DATA, IMAGING STUDIES, MICROBIOLOGY: Please see below. Assessment AND PLAN: Plan: Acute on chronic HFpEF: - diuresing well on lasix 40mg IV q8. LE edema still present. - c/w Fluid restriction. Monitor I/O. - ECHO on this admission surprisingly shows preserved EF 60-65% without diastolic dysfunction noted? - Once improved, will stop IV lasix and resumed home dose bumex. Hypertension: HTN urgency upon arrival. BP had improved. c/w home med bisoprolol. Diabetes mellitus type 2: ISS + Levemir 40 units daily Obstructive sleep apnea: Patient is on CPAP at home. COPD: Salmeterol 1 puff twice a day, continue spirometry. HLD- Atorvastatin 80 mg, Ezetimibe 10mg. DVT prophylaxis: HSQ VS, I&O, 24H, Fishbone Vital Signs/I&O Vital Signs Date Time Temp Pulse Resp B/P (MAP) Pulse Ox O2 Delivery O2 Flow Rate FiO2 04/19/20 13:00 139/68 (91) 04/19/20 12:00 98.0 72 20 95 Room Air 04/18/20 12:00 2.0 I&O- Last 24 Hours up to 6 AM 04/19/20 05:59 Intake Total 420 ml Output Total 4050 ml Balance -3630 ml Laboratory Data 24H LABS Laboratory Tests 2 04/18/20 18:05: Bedside Glucose (Misc Panel) 192H 04/18/20 20:39: Bedside Glucose (Misc Panel) 154H 04/19/20 04:33: Nucleated Red Blood Cells % (auto) 0.0, Anion Gap 10, Glomerular Filtration Rate 23.0L, Calcium Level 7.3L 04/19/20 12:48: Bedside Glucose (Misc Panel) 189H CBC/BMP Laboratory Tests 04/19/20 04:33 DONNY DELUCA MD Apr 19, 2020 16:04
[2020-04-19] MEDS: ATORVASTATIN 20 MG TAB PO SCH (21:18)
[2020-04-19] MEDS: LEVEMIR (INSULIN DETEMIR) 1 UNITS/0.01ML SC SCH (21:19)
[2020-04-19] MEDS: EZETIMIBE 10 MG TAB (ZETIA) PO SCH (21:20)
[2020-04-20] VITALS (7 sets, daily range): BP systolic 136–200; BP diastolic 64–100
[2020-04-20] MEDS: FUROSEMIDE 40MG/4ML VIAL (J1940) IV SCH ×3 (00:30→16:18)
[2020-04-20] MEDS: SLF 3 ML SYR IV SCH ×3 (04:52→22:00)
[2020-04-20] MEDS: HumaLOG INSULIN (NovoLOG) PER UNIT SC SCH ×7 (07:30→21:32)
[2020-04-20] MEDS: SALMETEROL DISKUS 50MCG INHALER (SEREVENT) INH SCH ×2 (07:55→17:57)
--- NOTE | 2020-04-20 07:59 | REP ---
Clinical: Congestive heart failure . Comparison: 04/16/2020 . Findings: The mediastinum and cardiac silhouette are stable and within normal limits for portable technique. The lung jaquez are clear without acute consolidation, effusion, or pneumothorax. Skeletal structures are intact. Impression: No acute cardiopulmonary process appreciated. Electronically Signed by Alden Ramon MD 04/20/2020 07:51 A
[2020-04-20 08:08] LABS: MEAN CORPUSCULAR HEMOGLOBIN 26.4 pg (27.0-33.0); MEAN CORPUSCULAR HGB CONC 30.6 g/dl (32.0-36.5); MEAN CORPUSCULAR VOLUME 86.3 fl (80.0-96.0); PLATELET COUNT, AUTOMATED 343 10^3/uL (150-450); RED BLOOD COUNT 4.17 10^6/uL (4.00-5.40); WHITE BLOOD COUNT 9.2 10^3/uL (4.0-10.0)
[2020-04-20 08:15] LABS: CALCIUM LEVEL 8.2 MG/DL (8.8-10.2); CREATININE FOR GFR 2.16 MG/DL (0.55-1.30); GLOMERULAR FILTRATION RATE 24.4 (>45); POTASSIUM SERUM 3.8 MEQ/L (3.5-5.1)
[2020-04-20] MEDS: bisoproloL fumarate 10 MG TAB PO SCH (09:01)
[2020-04-20] MEDS: HEPARIN SOD (PORCINE) 5000UNITS/ML 1ML VIAL/SYRINGE SC SCH ×2 (09:01→21:24)
[2020-04-20] MEDS: GABAPENTIN 100 MG CAP PO SCH ×2 (09:01→21:24)
[2020-04-20] MEDS: ASPIRIN 81 MG ENTERIC TAB PO SCH (09:01)
[2020-04-20] MEDS: ACETAMINOPHEN TAB 650MG DOSE (2X325MG) PO PRN ×2 (12:40→18:12)
[2020-04-20] MEDS ORDERED: hydrALAZINE 20MG/ML 1ML VIAL (J0360 PER 20MG) IV PRN (13:00)
[2020-04-20] MEDS: amLODIPine 5 MG TAB PO SCH ×2 (14:46→14:48)
--- NOTE | 2020-04-20 17:49 | IPNPDOC ---
Date Seen The patient was seen on 04/20/20. Progress Note SUBJECTIVE: Patient continue to feel low in energy today. SOB is better but still dyspneic with exertion She was tested for COVID this afternoon and result was negative. Continue to be afebrile with no leukocytosis. BP still intermittently elevated and Norvasc 5mg is added today. OBJECTIVE PHYSICAL EXAMINATION: VITAL SIGNS: Please see below. General: No acute distress, Alert Eyes: Normal sclera, EOMI HENT: Atraumatic Cardiovascular: Normal rate, normal rhythm. 1-2+ pitting edema b/l. Pulmonary: Minimal rochi to lunch bases, no wheezing GI: Soft, nontender, nondistended Skin: Warm and dry Neuro: CN grossly intact. No focal deficits. Strengths equal b/l. Psych: oriented x 3 LABORATORY DATA, IMAGING STUDIES, MICROBIOLOGY: Please see below. Assessment AND PLAN: Plan: Acute on chronic HFpEF: - diuresing well on lasix 40mg IV q8. LE edema still present. - c/w Fluid restriction. Monitor I/O. - ECHO on this admission surprisingly shows preserved EF 60-65% without diastolic dysfunction noted? - Once improved, will stop IV lasix and resumed home dose bumex. Hypertension: HTN urgency upon arrival. BP had improved but still elevated. c/w home med bisoprolol. Norvasc 5 mg added. Titrate as needed. Diabetes mellitus type 2: ISS + Levemir 40 units daily Obstructive sleep apnea: Patient is on CPAP at home. COPD: Salmeterol 1 puff twice a day, continue spirometry. HLD- Atorvastatin 80 mg, Ezetimibe 10mg. DVT prophylaxis: HSQ VS, I&O, 24H, Fishbone Vital Signs/I&O Vital Signs Date Time Temp Pulse Resp B/P (MAP) Pulse Ox O2 Delivery O2 Flow Rate FiO2 04/20/20 16:00 96.6 77 18 170/80 (110) 94 Room Air 04/18/20 12:00 2.0 I&O- Last 24 Hours up to 6 AM 04/20/20 06:00 Intake Total 840 ml Output Total 4100 ml Balance -3260 ml Laboratory Data 24H LABS Laboratory Tests 2 04/19/20 21:10: Bedside Glucose (Misc Panel) 251H 04/20/20 06:20: Bedside Glucose (Misc Panel) 135H 04/20/20 07:40: Nucleated Red Blood Cells % (auto) 0.0, Anion Gap 9, Glomerular Filtration Rate 24.4L, Calcium Level 8.2L 04/20/20 11:37: Bedside Glucose (Misc Panel) 243H 04/20/20 16:24: Bedside Glucose (Misc Panel) 221H CBC/BMP Laboratory Tests 04/20/20 07:40 Microbiology Microbiology 04/20/20 Respiratory Virus Panel (PCR) ([facility]ASPER) - Final, Complete DONNY DELUCA MD Apr 20, 2020 17:49
[2020-04-20] MEDS: ATORVASTATIN 20 MG TAB PO SCH (21:24)
[2020-04-20] MEDS: LEVEMIR (INSULIN DETEMIR) 1 UNITS/0.01ML SC SCH (21:24)
[2020-04-20] MEDS: EZETIMIBE 10 MG TAB (ZETIA) PO SCH (21:24)
[2020-04-21 04:00] VITALS: BP 158/88
[2020-04-21] MEDS: ACETAMINOPHEN TAB 650MG DOSE (2X325MG) PO PRN ×3 (05:26→18:07)
[2020-04-21] MEDS: SLF 3 ML SYR IV SCH ×3 (05:27→21:41)
[2020-04-21 05:45] LABS: HEMATOCRIT 31.3 % (36.0-47.0); HEMOGLOBIN 9.9 g/dl (12.0-15.5); MEAN CORPUSCULAR HGB CONC 31.6 g/dl (32.0-36.5); MEAN CORPUSCULAR VOLUME 85.3 fl (80.0-96.0); PLATELET COUNT, AUTOMATED 283 10^3/uL (150-450); RED BLOOD COUNT 3.67 10^6/uL (4.00-5.40); WHITE BLOOD COUNT 9.1 10^3/uL (4.0-10.0)
[2020-04-21 06:10] LABS: CALCIUM LEVEL 7.7 MG/DL (8.8-10.2); CREATININE FOR GFR 2.26 MG/DL (0.55-1.30); GLOMERULAR FILTRATION RATE 23.2 (>45); POTASSIUM SERUM 3.7 MEQ/L (3.5-5.1)
[2020-04-21 08:00] VITALS: BP 156/96
[2020-04-21] MEDS: FUROSEMIDE 40MG/4ML VIAL (J1940) IV SCH ×2 (08:24→18:03)
[2020-04-21] MEDS: HEPARIN SOD (PORCINE) 5000UNITS/ML 1ML VIAL/SYRINGE SC SCH ×2 (08:24→21:39)
[2020-04-21] MEDS: MORPHINE 2 MG/ML 1ML VIAL (J2270) IV PRN (08:25)
[2020-04-21] MEDS: HumaLOG INSULIN (NovoLOG) PER UNIT SC SCH ×7 (08:26→21:40)
[2020-04-21] MEDS: ASPIRIN 81 MG ENTERIC TAB PO SCH (08:27)
[2020-04-21] MEDS: bisoproloL fumarate 10 MG TAB PO SCH (08:27)
[2020-04-21] MEDS: amLODIPine 5 MG TAB PO SCH (08:27)
[2020-04-21] MEDS: CALCITRIOL 0.25 MCG CAP (S0169) PO SCH (08:27)
[2020-04-21] MEDS: GABAPENTIN 100 MG CAP PO SCH ×2 (08:27→21:40)
[2020-04-21] MEDS: SALMETEROL DISKUS 50MCG INHALER (SEREVENT) INH SCH ×2 (09:08→19:36)
[2020-04-21 12:00] VITALS: BP 136/70
[2020-04-21 16:00] VITALS: BP 168/70
[2020-04-21 20:00] VITALS: BP 152/78
[2020-04-21] MEDS: LEVEMIR (INSULIN DETEMIR) 1 UNITS/0.01ML SC SCH (21:40)
[2020-04-21] MEDS: EZETIMIBE 10 MG TAB (ZETIA) PO SCH (21:40)
[2020-04-21] MEDS: ATORVASTATIN 20 MG TAB PO SCH (21:41)
--- NOTE | 2020-04-21 22:48 | IPNPDOC ---
Date Seen The patient was seen on 04/21/20. Progress Note SUBJECTIVE: Patient seen and examined at bedside. Patient still complains of lower extremity swelling though improved from a prior. Patient also complains of ongoing tiredness. Patient denies other symptoms of fever, chills, chest pain, difficulty breathing, nausea, vomiting, abdominal pain, dysuria, diarrhea. OBJECTIVE PHYSICAL EXAMINATION: VITAL SIGNS: Please see below. GENERAL: Laying in bed in no acute distress, obese CARDIOVASCULAR: RRR, normal S1/2, no MRG appreciated RESPIRATORY: CTA B/L, no W/R/R ABDOMINAL: Obese, soft, nontender, nondistended EXTREMITIES: 2+ look for me edema bilaterally, intact distal pulses NEUROLOGICAL: Normal speech, no focal deficits PSYCHOLOGICAL: AAO 3, appropriate LABORATORY DATA, IMAGING STUDIES, MICROBIOLOGY: Please see below. ASSESSMENT AND PLAN: Patient is 64 years old female with past medical history of CHF, COPD, obstructive sleep apnea, diabetes type 2 presented hospital with increased shortness of breath found to be have a CHF exacerbation. PROBLEMS: #Acute on chronic HFpEF: - diuresing well on lasix 40mg IV q8. LE edema still present therefore will cont. - c/w Fluid restriction. Monitor I/O. - ECHO on this admission surprisingly shows preserved EF 60-65% without diastolic dysfunction noted? - Once improved, will stop IV lasix and resumed home dose bumex. Hypertension: HTN urgency upon arrival. BP had improved but still elevated. c/w home med bisoprolol. Norvasc 5 mg added. Titrate as needed. #Diabetes mellitus type 2: ISS + Levemir 40 units daily #Obstructive sleep apnea: Patient is on CPAP at home. #COPD: Salmeterol 1 puff twice a day, continue spirometry. #HLD- Atorvastatin 80 mg, Ezetimibe 10mg. DVT prophylaxis: HSQ VS, I&O, 24H, Fishbone Vital Signs/I&O Vital Signs Date Time Temp Pulse Resp B/P (MAP) Pulse Ox O2 Delivery O2 Flow Rate FiO2 04/21/20 20:00 97.3 73 18 152/78 (102) 93 Room Air 04/21/20 04:00 2.0 I&O- Last 24 Hours up to 6 AM 04/21/20 06:00 Intake Total 1080 ml Output Total 3080 ml Balance -2000 ml Laboratory Data 24H LABS Laboratory Tests 2 04/21/20 04:56: Nucleated Red Blood Cells % (auto) 0.0, Anion Gap 2L, Glomerular Filtration Rate 23.2L, Calcium Level 7.7L 04/21/20 11:20: Bedside Glucose (Misc Panel) 247H 04/21/20 16:29: Bedside Glucose (Misc Panel) 272H 04/21/20 21:20: Bedside Glucose (Misc Panel) 273H CBC/BMP Laboratory Tests 04/21/20 04:56 Microbiology Microbiology 04/20/20 Respiratory Virus Panel (PCR) (GASPER) - Final, Complete WAYLON MONDRAGON MD Apr 21, 2020 22:48
[2020-04-22] VITALS: BP 148/76
[2020-04-22] MEDS: ACETAMINOPHEN TAB 650MG DOSE (2X325MG) PO PRN (03:14)
[2020-04-22 04:00] VITALS: BP 144/82
[2020-04-22 05:51] LABS: HEMATOCRIT 30.3 % (36.0-47.0); HEMOGLOBIN 9.4 g/dl (12.0-15.5); MEAN CORPUSCULAR HEMOGLOBIN 26.5 pg (27.0-33.0); MEAN CORPUSCULAR VOLUME 85.4 fl (80.0-96.0); PLATELET COUNT, AUTOMATED 267 10^3/uL (150-450); RED BLOOD COUNT 3.55 10^6/uL (4.00-5.40); WHITE BLOOD COUNT 8.5 10^3/uL (4.0-10.0)
[2020-04-22 06:09] LABS: CALCIUM LEVEL 7.8 MG/DL (8.8-10.2); CREATININE FOR GFR 2.23 MG/DL (0.55-1.30); GLOMERULAR FILTRATION RATE 23.6 (>45)
[2020-04-22] MEDS: SLF 3 ML SYR IV SCH (06:37)
[2020-04-22 08:00] VITALS: BP 142/86
[2020-04-22] MEDS: SALMETEROL DISKUS 50MCG INHALER (SEREVENT) INH SCH (08:11)
[2020-04-22] MEDS: HumaLOG INSULIN (NovoLOG) PER UNIT SC SCH ×2 (09:20→09:21)
[2020-04-22] MEDS: GABAPENTIN 100 MG CAP PO SCH (09:21)
[2020-04-22 09:22] VITALS: BP 142/86
[2020-04-22] MEDS: ASPIRIN 81 MG ENTERIC TAB PO SCH (09:22)
[2020-04-22] MEDS: bisoproloL fumarate 10 MG TAB PO SCH (09:22)
[2020-04-22] MEDS: amLODIPine 5 MG TAB PO SCH (09:22)
[2020-04-22] MEDS: FUROSEMIDE 40MG/4ML VIAL (J1940) IV SCH (09:23)
[2020-04-22] MEDS: HEPARIN SOD (PORCINE) 5000UNITS/ML 1ML VIAL/SYRINGE SC SCH (09:23)
[2020-06-08 09:23] LABS: CREATININE FOR GFR 2.16 MG/DL (0.55-1.30); GLOMERULAR FILTRATION RATE 24.4 (>45); POTASSIUM SERUM 4.3 MEQ/L (3.5-5.1)
[2020-07-29 22:14] LABS: HEMATOCRIT 30.8 % (36.0-47.0); HEMOGLOBIN 9.6 g/dl (12.0-15.5); MEAN CORPUSCULAR HEMOGLOBIN 26.8 pg (27.0-33.0); MEAN CORPUSCULAR HGB CONC 31.2 g/dl (32.0-36.5); PLATELET COUNT, AUTOMATED 246 10^3/uL (150-450); RED BLOOD COUNT 3.58 10^6/uL (4.00-5.40)
== END 2020-04-24 09:00 | disposition home or self-care (01) | DRG 291 ==
LOC: M ED 12:14 → M ED INP 14:20 → M MSPAV 15:45 → ENRESERV 16:13 → M PCU 16:40
PROVIDERS: ADMIT Internal Medicine; ATTEND Internal Medicine
DX: I13.0 Hypertensive heart and chronic kidney disease with heart failure and stage 1 through stage 4 chronic kidney disease, or unspecified chronic kidney disease (principal); I50.33 Acute on chronic diastolic (congestive) heart failure; J44.1 Chronic obstructive pulmonary disease with (acute) exacerbation; Z68.41 Body mass index [BMI] 40.0-44.9, adult; I16.0 Hypertensive urgency; N18.3 Chronic kidney disease, stage 3 (moderate); E66.01 Morbid (severe) obesity due to excess calories; Z79.899 Other long term (current) drug therapy; Z79.82 Long term (current) use of aspirin; G47.33 Obstructive sleep apnea (adult) (pediatric); E11.29 Type 2 diabetes mellitus with other diabetic kidney complication; Z88.0 Allergy status to penicillin; Z88.8 Allergy status to other drugs, medicaments and biological substances; E78.5 Hyperlipidemia, unspecified; Z96.641 Presence of right artificial hip joint; Z96.642 Presence of left artificial hip joint; Z87.891 Personal history of nicotine dependence; Z91.14 Patient's other noncompliance with medication regimen

== ENCOUNTER 2020-06-25 13:08 | Inpatient (IN) | payer MEDICARE ==
[~2020-06-25] VITALS: Ht 149.9 cm; Wt 103.3 kg
[~2020-06-25 13:08] MED LIST changes: +AMLO2.5T3 PO; +CALC1CAP31 PO; +GABA-1171 PO
[2020-06-25] MEDS ORDERED: AMLO2.5T3 PO (13:26)
[2020-06-25] MEDS ORDERED: methylPREDNISolone 125MG 2ML VIAL IV ONE (14:00)
[2020-06-25] MEDS ORDERED: IPRATROPIUM 0.5MG/ALBUTEROL 2.5MG INH SOL UD 3ML (DUONEB) NEB ONE (14:00)
[2020-06-25] MEDS ORDERED: ALBUTEROL SULFATE 2.5 MG/0.5 ML INH NEB SOLN INH ONE (14:00)
[2020-06-25 14:45] LABS: BASO % 0.4 % (0.0-1.0); EOS # 0.2 10^3/uL (0.0-0.5); EOS % 2.6 % (0.0-3.0); HEMATOCRIT 28.6 % (36.0-47.0); HEMOGLOBIN 9.1 g/dl (12.0-15.5); LYMPH # 1.1 10^3/uL (1.5-5.0); LYMPH % 13.8 % (24.0-44.0); MEAN CORPUSCULAR HEMOGLOBIN 26.9 pg (27.0-33.0); MEAN CORPUSCULAR HGB CONC 31.8 g/dl (32.0-36.5); MEAN CORPUSCULAR VOLUME 84.6 fl (80.0-96.0); MONO # 0.6 10^3/uL (0.0-0.8); MONO % 7.1 % (0.0-5.0); NEUTROPHILS # 6.1 10^3/uL (1.5-8.5); NEUTROPHILS % 75.6 % (36.0-66.0); PLATELET COUNT, AUTOMATED 238 10^3/uL (150-450); RED BLOOD COUNT 3.38 10^6/uL (4.00-5.40)
[2020-06-25 15:15] LABS: ALT/SGPT 17 U/L (12-78); BILIRUBIN,DIRECT < 0.1 MG/DL (0.0-0.2); BILIRUBIN,TOTAL 0.2 MG/DL (0.2-1.0); NT-PRO BNP 1733 PG/ML (<125); THYROXINE (T4) 8.8 UG/DL (4.5-12.0); TOTAL PROTEIN 6.6 GM/DL (6.4-8.2)
--- NOTE | 2020-06-25 15:40 | REPVR ---
PROCEDURE INFORMATION: Exam: XR Chest, 1 View Exam date and time: 06/25/2020 3:30 PM Age: 65 years old Clinical indication: Cough and dyspnea; Additional info: Dyspnea/cough TECHNIQUE: Imaging protocol: XR of the chest Views: 1 view. COMPARISON: CR PORTABLE CHEST X-RAY 04/20/2020 7:16 AM FINDINGS: Lungs: Mild linear scarring in the left lateral lung base. No focal consolidation. Pleural space: Unremarkable. No pleural effusion. No pneumothorax. Heart/Mediastinum: Stable prominence of the cardiac silhouette. Bones/joints: Postsurgical change and degenerative change of the spine. IMPRESSION: No acute cardiopulmonary abnormality. Electronically signed by: Tabitha Iglesias On 06/25/2020 15:40:21 PM
[2020-06-25] MEDS ORDERED: FUROSEMIDE 40MG/4ML VIAL (J1940) IV ONE (16:30)
--- NOTE | 2020-06-25 18:17 | ECGEPIP ---
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
[2020-06-25] MEDS ORDERED: GLUCOSE 4GM CHEW TABLET PO PRN (18:30)
[2020-06-25] MEDS ORDERED: IPRATROPIUM 0.5MG/ALBUTEROL 2.5MG INH SOL UD 3ML (DUONEB) NEB PRN (18:30)
[2020-06-25] MEDS ORDERED: GLUCAGON INJ 1MG VIAL SC PRN (18:30)
[2020-06-25] MEDS ORDERED: DEXTROSE 50% 50 ML SYRINGE IV PRN (18:30)
--- NOTE | 2020-06-25 18:34 | HPEPDOC ---
[facility] Medical History & Physical Date of Admission Jun 25, 2020 Date of Service: Jun 25, 2020 Primary Care Physician: BREANNA FERMIN MD Attending Physician: BETTY HERNANDZE MD History and Physical CHIEF COMPLAINT: Worsening shortness of breath since Sunday (06/19/2020), PCP suggested she go to ED yesterday, came in today. HISTORY OF PRESENT ILLNESS: Ms. Irving is a 65 yo F with a PMHx of COPD, CHF, T2DM, HLD, HTN, and kidney failure that presented to the ED today complaining of worsening shortness of breath of approximately 1 week duration. She states that this episode of dyspnea occurred after exertion and has persisted. She does not use oxygen at home. She says she has a cough but only produces a small amount of "colorless" sputum. She denies fever, chills, nausea, vomiting, or diarrhea. She has been hospitalized many times in the past for CHF exacerbation. She complains of pain under her left breast "like a bruise." There is no visible deformity and a CXR was negative. She also states that she has back pain but it is chronic, spasm like. She was admitted for suspected CHF exacerbation vs COPD exacerbation. PAST MEDICAL HISTORY: 1. COPD 2. CHF 3. IDDM 4. HLD 5. HTN 6. CKD stage III PAST SURGICAL HISTORY: 1. Hernia repair x2 2. BL cataract surgery 3. BL total hip replacements 4. Tubal ligation 5. Lumbar spine surgery 6. 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 REVIEW OF SYSTEMS: CONSTITUTIONAL: Denies fever, chills, nausea, vomiting, diarrhea. HEENT: Denies recent illness, rhinorrhea, sore throat, headache. CARDIOVASCULAR: Denies palpitations and chest pain. RESPIRATORY: Shortness of breath at rest and with exertion, non productive cough. GASTROINTESTINAL: Denies nausea, vomiting, diarrhea, constipation, blood in stools. GENITOURINARY: Denies dysuria and hematuria. SKIN: Denies rashes or lesions. MUSCULOSKELETAL: Denies pain or weakness. NEUROLOGICAL: Denies dizziness, visual changes. PSYCHIATRIC: Normal mood and affect. ENDOCRINE: Denies heat/cold intolerance, denies polydipsia, denies polyuria. HEMATOLOGIC/LYMPHATIC: Denies easy bruising. HOME MEDICATIONS: Please see below. PHYSICAL EXAMINATION: VITAL SIGNS: Temperature 98.4, pulse 75, respiratory rate 20, blood pressure 152/84, pulse oximetry 94% on room air. GENERAL APPEARANCE: Pt appears laying in bed, appears stated age, in no acute distress. HEENT: NC, AT, EOMI, no scleral icterus, no pharyngeal erythema. CARDIOVASCULAR: RRR, no murmurs, rubs, gallops. LUNGS: CTAB, no rales, rhonchi, or wheezes, breaths seem shallow. ABDOMEN: soft, obese, non tender, slightly distended, tympanic, bowel sounds present in all quadrants. MUSCULOSKELETAL: +5/5 strength all 4 extremities EXTREMITIES: no swelling or edema NEUROLOGICAL: PERRLA, AAOx3, CN II-XII grossly intact. PSYCHIATRIC: Normal mood and affect. LABORATORY DATA: See below. IMAGING: -CXR (06/25/2020): No acute cardiopulmonary abnormalities. MICROBIOLOGY: Please see below. ASSESSMENT: Ms. Irving is a 65 yo F with a PMHx of COPD, CHF, CKD stage III, IDDM, HTN, and HLD that presented to the ED complaining of worsening shortness of breath of approximately 1 week duration concerning for CHF exacerbation vs COPD exacerbation. PLAN: #Shortness of breath likely 2/2 to COPD exacerbation, possibly 2/2 CHF exacerbation - Currently, patient reports that she has been short of breath over the course of 1 week - Physical as reveal evidence of wheezing bilaterally, trace edema -CXR unremarkable -Given IV Lasix 40mg and solumedrol 125mg in ED -IV lasix 40 mg IV bid starting tomorrow, 06/26 -O2 titration to 88-92% -prn Duonebs -Stict I&Os, daily weight, fluid restriction -c/w home ICS+LABA -in the setting of no fever and no white count, abx use not warranted #HFpEF -03/2020 ECHO: mild pulmonary htn with preserved EF -c/w home bisoprolol #. IDDM -Sliding scale insulin can adjust regimen as warranted and consistent carbohydrate diet. -Levemir (LA insulin) 40 u qhs -Hold home medications. -Hypoglycemic protocol. #. MARIZA -On CPAP at night #. HTN -Continue bisoprolol, amlodipine #. HLD -Continue atorvastatin and zetia #. Obesity -Complicating care #. CKD stage III -Continue home medications. #DVT prophylaxis: sc heparin plus teds and scds Disposition: Pending clinical improvement Vital Signs Vital Signs Date Time Temp Pulse Resp B/P (MAP) Pulse Ox O2 Delivery O2 Flow Rate FiO2 06/25/20 15:23 75 20 94 Room Air 06/25/20 14:00 06/25/20 13:08 98.4 Laboratory Data Labs 24H Laboratory Tests 2 06/25/20 14:14: Immature Granulocyte % (Auto) 0.5, Neutrophils (%) (Auto) 75.6H, Lymphocytes (%) (Auto) 13.8L, Monocytes (%) (Auto) 7.1H, Eosinophils (%) (Auto) 2.6, Basophils (%) (Auto) 0.4, Neutrophils # (Auto) 6.1, Lymphocytes # (Auto) 1.1L, Monocytes # (Auto) 0.6, Eosinophils # (Auto) 0.2, Basophils # (Auto) 0.0, Nucleated Red Blood Cells % (auto) 0.0, Total Bilirubin 0.2, Direct Bilirubin < 0.1, Aspartate Amino Transf (AST/SGOT) 8, Alanine Aminotransferase (ALT/SGPT) 17, Alkaline Phosphatase 79, OH-Jdz-D-Type Natriuretic Peptide 1733H, Total Protein 6.6, Albumin 3.0L, Albumin/Globulin Ratio 0.8L, Thyroid Stimulating Hormone (TSH) 1.900, Thyroxine (T4) 8.8 06/25/20 14:52: POC Glucose (Misc Panel) 81, POC Sodium (Misc Panel) 141, POC Potassium (Misc Panel) 4.0, POC Chloride (Misc Panel) 105, POC Total CO2 (Misc Panel) 22.0L, POC Blood Urea Nitrogen (Misc Panel 54H, POC Ionized Calcium (Misc Panel) 4.1L, POC Creatinine (Misc Panel) 2.6H, POC Hematocrit (Misc Panel) 32.0L 06/25/20 14:54: POC Troponin I (Misc) 0.00 06/25/20 15:24: POC Glucose (Misc Panel) 79, POC Sodium (Misc Panel) 141, POC Potassium (Misc Panel) 4.0, POC Chloride (Misc Panel) 105, POC Total CO2 (Misc Panel) 21.0L, POC Blood Urea Nitrogen (Misc Panel 56H, POC Ionized Calcium (Misc Panel) 4.2L, POC Creatinine (Misc Panel) 2.6H, POC Hematocrit (Misc Panel) 37.0L CBC/BMP Laboratory Tests 06/25/20 14:14 Microbiology Microbiology 06/25/20 Respiratory Virus Panel (PCR) (GASPER) - Final, Complete 06/25/20 Blood Culture, Received Pending 06/25/20 Blood Culture, Received Pending Home Medications Scheduled Amlodipine Besylate (Amlodipine Besylate) 2.5 Mg Tablet, 2.5 MG PO DAILY Aspirin (Aspirin EC) 81 Mg Tabec, 81 MG PO DAILY Atorvastatin Calcium (Atorvastatin Calcium) 80 Mg Tab, 80 MG PO QHS Bisoprolol Fumarate (Bisoprolol Fumarate) 10 Mg Tab, 10 MG PO DAILY Bumetanide (Bumetanide) 1 Mg Tablet, 1 MG PO DAILY Calcitriol (Calcitriol) 0.25 Mcg Capsule, 0.25 MCG PO 3XW MON, SUN, FRI Chlorthalidone (Chlorthalidone) 25 Mg Tab, 25 MG PO DAILY Dulaglutide (Trulicity) 1.5 Mg/0.5 Ml Inj, 1.5 MG SC 1XWK FRI Ezetimibe (Ezetimibe) 10 Mg Tablet, 10 MG PO QHS Fluticasone Furoate (Arnuity Ellipta) 200 Mcg Blst.w.dev, 1 PUFF INH DAILY Gabapentin (Gabapentin) 100 Mg Capsule, 100 MG PO BID Insulin Aspart (Novolog Flexpen) 100 Unit/1 Ml Insuln.pen, 1 DOSE SC AC PER SLIDING SCALE Insulin Detemir (Levemir) 100 Unit/1 Ml Vial, 40 UNITS SC QHS Salmeterol (Serevent Diskus) 50 Mcg Blst.w.dev, 1 PUFF INH BID Umeclidinium Whitman (Incruse Ellipta) 62.5 Mcg Blst.w.dev, 1 PUFF INH DAILY Scheduled PRN Acetaminophen (Acetaminophen) 500 Mg Tablet, 1,000 MG PO TID PRN for PAIN Albuterol Sulfate (Proair Hfa) 108 Mcg/Act Aer, 2 PUFFS INH Q4H PRN for SHORTNESS OF BREATH Ipratropium/Albuterol Sulfate (Iprat-Albut 0.5-3(2.5) mg/3 ml) 3 Ml Ampul.neb, 1 VIAL NEB QID PRN for SOB/WHEEZING Allergies Coded Allergies: Penicillins (Verified Allergy, Mild, HIVES, 10/17/19) doxycycline (Verified Allergy, Unknown, 03/30/19) A-FIB/CHADSVASC A-FIB History Current/History of A-Fib/PAF?: No Current PO Anticoag Therapy: No GME ATTESTATION GME ATTESTATION My faculty preceptor for this patient encounter was physically present during the encounter and was fully available. All aspects of the patient interview, examination, medical decision making process, and medical care plan development were reviewed and approved by the faculty preceptor. The faculty preceptor is aware and concurs with the plan as stated in the body of this note and will attest to such by his/her cosignature. ATTENDING NOTE I, Betty Hernandez, have independently examined this patient and performed my own physical exam, as well as reviewed the documentation and edited where necessary. I have discussed in detail with the resident / student the findings and plan of treatment as documented by the resident / student and edited their note. I agree with their findings and treatment plan and have edited their documentation. I will continue to follow the patient during this hospital stay. ANGEL GREENE S-3 Jun 25, 2020 18:33 BETTY HERNANDEZ MD Jun 25, 2020 19:23
[2020-06-25] MEDS: ADVAIR HFA 230/21MCG INHALER INH SCH (20:00)
[2020-06-25] MEDS ORDERED: SALMETEROL DISKUS 50MCG INHALER (SEREVENT) INH SCH (20:00)
[2020-06-25 21:33] VITALS: BP 162/78
[2020-06-25] MEDS: ATORVASTATIN 20 MG TAB PO SCH (21:33)
[2020-06-25] MEDS: EZETIMIBE 10 MG TAB (ZETIA) PO SCH (21:34)
[2020-06-25] MEDS: LEVEMIR (INSULIN DETEMIR) 1 UNITS/0.01ML SC SCH (21:34)
[2020-06-25] MEDS: GABAPENTIN 100 MG CAP PO SCH (21:34)
[2020-06-25] MEDS: HumaLOG INSULIN (NovoLOG) PER UNIT SC SCH (21:35)
[2020-06-25] MEDS: ACETAMINOPHEN 500 MG TAB PO PRN (21:36)
[2020-06-26] MEDS: IPRATROPIUM 0.5MG/ALBUTEROL 2.5MG INH SOL UD 3ML (DUONEB) NEB SCH ×4 (01:21→19:26)
[2020-06-26] MEDS ORDERED: traMADol 50 MG TAB PO ONE (03:00)
[2020-06-26] MEDS ORDERED: methylPREDNISolone 40MG 1ML VIAL IV SCH (03:00)
[2020-06-26 06:00] VITALS: BP 150/78
[2020-06-26] MEDS: HEPARIN SOD (PORCINE) 5000UNITS/ML 1ML VIAL/SYRINGE SC SCH ×3 (06:33→22:05)
[2020-06-26 07:19] LABS: BASO % 0.1 % (0.0-1.0); HEMATOCRIT 31.7 % (36.0-47.0); HEMOGLOBIN 10.1 g/dl (12.0-15.5); LYMPH # 0.5 10^3/uL (1.5-5.0); LYMPH % 4.8 % (24.0-44.0); MEAN CORPUSCULAR HEMOGLOBIN 27.1 pg (27.0-33.0); MEAN CORPUSCULAR HGB CONC 31.9 g/dl (32.0-36.5); MONO # 0.1 10^3/uL (0.0-0.8); MONO % 0.5 % (0.0-5.0); NEUTROPHILS # 8.8 10^3/uL (1.5-8.5); NEUTROPHILS % 94.1 % (36.0-66.0); PLATELET COUNT, AUTOMATED 248 10^3/uL (150-450); RED BLOOD COUNT 3.73 10^6/uL (4.00-5.40); WHITE BLOOD COUNT 9.3 10^3/uL (4.0-10.0)
[2020-06-26 07:44] LABS: CALCIUM LEVEL 7.8 MG/DL (8.8-10.2); CREATININE FOR GFR 2.79 MG/DL (0.55-1.30); GLOMERULAR FILTRATION RATE 18.1 (>45); MAGNESIUM LEVEL 2.2 MG/DL (1.8-2.4); POTASSIUM SERUM 4.7 MEQ/L (3.5-5.1)
--- NOTE | 2020-06-26 07:46 | IPNPDOC ---
Subjective Date Seen The patient was seen on 06/26/20. Subjective Chief Complaint/HPI Pt was seen at bedside this am. NAD, and no acute events overnight. Denies CP, SOB, abdominal pain, fever, n/v/d. Per patient, her sugars always runs in the 400s. Will adjust insulin accordingly and switch solumedrol IV to prednisone 40mg daily and closely monitor sugars. ROS: all 12 points reviewed. See HPI PHYSICAL EXAM: VS: SEE BELOW GENERAL APPEARANCE: Pt appears laying in bed, appears stated age, in no acute distress HEENT: NC, AT, EOMI, no scleral icterus, no pharyngeal erythema CARDIOVASCULAR: RRR, no murmurs, rubs, gallops LUNGS: CTAB, no rales, rhonchi, or wheezes, breaths seem shallow ABDOMEN: soft, obese, non tender, slightly distended, tympanic, bowel sounds present in all quadrants MUSCULOSKELETAL: +5/5 strength all 4 extremities EXTREMITIES: no swelling or edema, no cyanosis or clubbing NEUROLOGICAL: PERRLA, AAOx3, CN II-XII grossly intact PSYCHIATRIC: Normal mood and affect Assessment /Plan Assessment Ms. Irving is a 65 yo F with a PMHx of COPD, CHF, CKD stage III, IDDM, HTN, and HLD that presented to the ED complaining of worsening shortness of breath of approximately 1 week duration concerning for CHF exacerbation vs COPD exacerbation. Plan/VTE VTE Prophylaxis Ordered?: Yes Plan #Shortness of breath likely 2/2 to CHF exacerbation; possibly 2/2 COPD exacerbation -d/c'd IV solumderol; start prednisone 40mg PO daily starting tomorrow -Continue Lasix IV -Continue Strict I&Os, daily weight, fluid restriction 1500mL -c/w home ICS+LABA #HFpEF -03/2020 ECHO: mild pulmonary htn with preserved EF -c/w home bisoprolol #IDDM, uncontrolled with hyperglycemia - likely 2/2 corticosteroid use - Patient remains asymptomatic - BS this am pre breakfast 361 - d/cd solumedrol --> switched to prednisone 40mg PO daily - will continue to monitor sugars closely and adjust sliding scale accordingly - Will provide additional insulin subcutaneous and IV as needed if blood glucose remains elevated #MARIZA -On CPAP at night #HTN -Continue bisoprolol, amlodipine #HLD -Continue atorvastatin and zetia # CKD stage III -Continue home medications #DVT prophylaxis: sc heparin plus teds and scds #GI ppx: Protonix 40mg PO daily CODE: full IVF: none. 1500mL fluid restriction Diet: 2g Na and consistent card diet Disposition: - Anticipate discharge within 24 hours VS, I&O, 24H, Fishbone Vital Signs/I&O Vital Signs Date Time Temp Pulse Resp B/P (MAP) Pulse Ox O2 Delivery O2 Flow Rate FiO2 06/26/20 06:00 97.4 83 18 150/78 (102) 93 Room Air I&O- Last 24 Hours up to 6 AM 06/26/20 06:00 Intake Total 120 ml Output Total 0 ml Balance 120 ml Laboratory Data 24H LABS Laboratory Tests 2 06/25/20 14:14: Immature Granulocyte % (Auto) 0.5, Neutrophils (%) (Auto) 75.6H, Lymphocytes (%) (Auto) 13.8L, Monocytes (%) (Auto) 7.1H, Eosinophils (%) (Auto) 2.6, Basophils (%) (Auto) 0.4, Neutrophils # (Auto) 6.1, Lymphocytes # (Auto) 1.1L, Monocytes # (Auto) 0.6, Eosinophils # (Auto) 0.2, Basophils # (Auto) 0.0, Nucleated Red Blood Cells % (auto) 0.0, Total Bilirubin 0.2, Direct Bilirubin < 0.1, Aspartate Amino Transf (AST/SGOT) 8, Alanine Aminotransferase (ALT/SGPT) 17, Alkaline Phosphatase 79, EO-Ohu-B-Type Natriuretic Peptide 1733H, Total Protein 6.6, Albumin 3.0L, Albumin/Globulin Ratio 0.8L, Thyroid Stimulating Hormone (TSH) 1.900, Thyroxine (T4) 8.8 06/25/20 14:52: POC Glucose (Misc Panel) 81, POC Sodium (Misc Panel) 141, POC Potassium (Misc Panel) 4.0, POC Chloride (Misc Panel) 105, POC Total CO2 (Misc Panel) 22.0L, POC Blood Urea Nitrogen (Misc Panel 54H, POC Ionized Calcium (Misc Panel) 4.1L, POC Creatinine (Misc Panel) 2.6H, POC Hematocrit (Misc Panel) 32.0L 06/25/20 14:54: POC Troponin I (Misc) 0.00 06/25/20 15:24: POC Glucose (Misc Panel) 79, POC Sodium (Misc Panel) 141, POC Potassium (Misc Panel) 4.0, POC Chloride (Misc Panel) 105, POC Total CO2 (Misc Panel) 21.0L, POC Blood Urea Nitrogen (Misc Panel 56H, POC Ionized Calcium (Misc Panel) 4.2L, POC Creatinine (Misc Panel) 2.6H, POC Hematocrit (Misc Panel) 37.0L 06/25/20 21:08: Bedside Glucose (Misc Panel) 331H 06/26/20 06:06: Immature Granulocyte % (Auto) 0.5, Neutrophils (%) (Auto) 94.1H, Lymphocytes (%) (Auto) 4.8L, Monocytes (%) (Auto) 0.5, Eosinophils (%) (Auto) 0.0, Basophils (%) (Auto) 0.1, Neutrophils # (Auto) 8.8H, Lymphocytes # (Auto) 0.5L, Monocytes # (Auto) 0.1, Eosinophils # (Auto) 0.0, Basophils # (Auto) 0.0, Nucleated Red Blo od Cells % (auto) 0.0, Anion Gap 11, Glomerular Filtration Rate 18.1L, Calcium Level 7.8L, Magnesium Level 2.2 CBC/BMP Laboratory Tests 06/25/20 14:14 06/26/20 06:06 Microbiology Microbiology 06/25/20 Respiratory Virus Panel (PCR) (GASPER) - Final, Complete 06/25/20 Blood Culture, Received Pending 06/25/20 Blood Culture, Received Pending GME ATTESTATION GME ATTESTATION My faculty preceptor for this patient encounter was physically present during the encounter and was fully available. All aspects of the patient interview, examination, medical decision making process, and medical care plan development were reviewed and approved by the faculty preceptor. The faculty preceptor is aware and concurs with the plan as stated in the body of this note and will attest to such by his/her cosignature. ATTENDING NOTE I, Betty Alejandre, have independently examined this patient and performed my own physical exam, as well as reviewed the documentation and edited where necessary. I have discussed in detail with the resident / student the findings and plan of treatment as documented by the resident / student and edited their note. I agree with their findings and treatment plan and have edited their documentation. I will continue to follow the patient during this hospital stay. Lillian Chavarria DO Jun 26, 2020 07:46 BETTY ALEJANDRE MD Jun 26, 2020 16:35
[2020-06-26] MEDS: ADVAIR HFA 230/21MCG INHALER INH SCH ×2 (08:00→19:26)
[2020-06-26] MEDS: FUROSEMIDE 40MG/4ML VIAL (J1940) IV SCH ×2 (09:27→17:37)
[2020-06-26] MEDS: GABAPENTIN 100 MG CAP PO SCH ×2 (09:28→22:04)
[2020-06-26] MEDS: ASPIRIN 81 MG ENTERIC TAB PO SCH (09:30)
[2020-06-26] MEDS: bisoproloL fumarate 10 MG TAB PO SCH (09:30)
[2020-06-26] MEDS: HumaLOG INSULIN (NovoLOG) PER UNIT SC SCH ×4 (09:31→22:08)
[2020-06-26] MEDS ORDERED: HumuLIN R (REGULAR) INSULIN (NovoLIN R) **100U/ML** PER UNIT IV STA ×2 (13:53→17:51)
[2020-06-26 14:00] VITALS: BP 140/58
[2020-06-26 14:52] LABS: CREATININE FOR GFR 2.97 MG/DL (0.55-1.30); GLOMERULAR FILTRATION RATE 16.9 (>45); POTASSIUM SERUM 4.5 MEQ/L (3.5-5.1)
[2020-06-26] MEDS ORDERED: PANTOPRAZOLE 40MG VIAL (C9113 PER 1) IV ONE (20:45)
[2020-06-26 20:59] LABS: CK-MB VALUE MASS 3.9 NG/ML (<3.6); CPK CREATINE PHOSPHOKINASE 178 U/L (26-192); MB/CK RELATIVE INDEX 2.19 (< OR =4); TROPONIN I < 0.02 NG/ML (< 0.10)
[2020-06-26] MEDS ORDERED: BUMETANIDE 1 MG/4 ML INJ (S0171) IV SCH (21:00)
[2020-06-26 22:00] VITALS: BP 150/80
[2020-06-26] MEDS: ATORVASTATIN 20 MG TAB PO SCH (22:04)
[2020-06-26] MEDS: EZETIMIBE 10 MG TAB (ZETIA) PO SCH (22:05)
[2020-06-26] MEDS: LEVEMIR (INSULIN DETEMIR) 1 UNITS/0.01ML SC SCH (22:06)
[2020-06-27] MEDS: IPRATROPIUM 0.5MG/ALBUTEROL 2.5MG INH SOL UD 3ML (DUONEB) NEB SCH ×4 (02:15→20:00)
[2020-06-27 02:51] LABS: CK-MB VALUE MASS 4.3 NG/ML (<3.6); CPK CREATINE PHOSPHOKINASE 157 U/L (26-192); MB/CK RELATIVE INDEX 2.74 (< OR =4); TROPONIN I < 0.02 NG/ML (< 0.10)
[2020-06-27] MEDS: HEPARIN SOD (PORCINE) 5000UNITS/ML 1ML VIAL/SYRINGE SC SCH ×3 (05:23→21:36)
[2020-06-27 06:00] VITALS: BP 143/74
[2020-06-27 06:42] LABS: BASO % 0.2 % (0.0-1.0); EOS % 0.1 % (0.0-3.0); HEMATOCRIT 30.8 % (36.0-47.0); HEMOGLOBIN 9.4 g/dl (12.0-15.5); LYMPH # 1.1 10^3/uL (1.5-5.0); LYMPH % 9.1 % (24.0-44.0); MEAN CORPUSCULAR HEMOGLOBIN 26.6 pg (27.0-33.0); MEAN CORPUSCULAR HGB CONC 30.5 g/dl (32.0-36.5); MONO # 0.8 10^3/uL (0.0-0.8); MONO % 6.6 % (0.0-5.0); NEUTROPHILS # 10.5 10^3/uL (1.5-8.5); NEUTROPHILS % 83.3 % (36.0-66.0); PLATELET COUNT, AUTOMATED 286 10^3/uL (150-450); RED BLOOD COUNT 3.54 10^6/uL (4.00-5.40); WHITE BLOOD COUNT 12.6 10^3/uL (4.0-10.0)
[2020-06-27 07:09] LABS: CALCIUM LEVEL 7.7 MG/DL (8.8-10.2); CREATININE FOR GFR 3.16 MG/DL (0.55-1.30); GLOMERULAR FILTRATION RATE 15.7 (>45); MAGNESIUM LEVEL 2.3 MG/DL (1.8-2.4); POTASSIUM SERUM 3.9 MEQ/L (3.5-5.1)
[2020-06-27] MEDS: HumaLOG INSULIN (NovoLOG) PER UNIT SC SCH ×4 (08:02→20:27)
[2020-06-27] MEDS: GABAPENTIN 100 MG CAP PO SCH ×2 (08:06→20:22)
[2020-06-27] MEDS: ASPIRIN 81 MG ENTERIC TAB PO SCH (08:06)
[2020-06-27] MEDS: bisoproloL fumarate 10 MG TAB PO SCH (08:06)
[2020-06-27] MEDS ORDERED: predniSONE 20 MG TAB PO SCH (09:00)
[2020-06-27 09:22] LABS: HEMOGLOBIN A1c 10.3 %
[2020-06-27] MEDS: ADVAIR HFA 230/21MCG INHALER INH SCH ×2 (09:26→19:44)
--- NOTE | 2020-06-27 09:47 | REPVR ---
PROCEDURE INFORMATION: Exam: XR Chest, 2 Views Exam date and time: 06/27/2020 9:33 AM Age: 65 years old Clinical indication: Other: Chf TECHNIQUE: Imaging protocol: XR of the chest Views: 2 views. COMPARISON: CR PORTABLE CHEST X-RAY 06/25/2020 3:25 PM FINDINGS: Lungs: Unremarkable. No consolidation. Pleural space: Unremarkable. No pleural effusion. No pneumothorax. Heart/Mediastinum: The cardiomediastinal silhouette is fairly stable in appearance, allowing for differences in technique. Bones/joints: There is again hardware in the cervical spine. Degenerative changes again involve the spine. IMPRESSION: No evidence for acute pulmonary disease. Electronically signed by: Ayad Mustafa On 06/27/2020 09:46:56 AM
--- NOTE | 2020-06-27 12:57 | IPNPDOC ---
Text Note Date of Service The patient was seen on 06/27/20. NOTE Subjective: Patient is a 65 year old female with a PMHx of COPD, Diastolic CHF, HTN, NIDDM2, DLP, CKD3 (Cr ~2.2) who presented to the ER with complaints of shortness of breath. Upon arrival, patient had reported wheezing and had evidence of some fluid overload, based on lower extremity swelling. Patient was admitted to the hospitalist service for further evaluation and treatment. Patient was seen and examined at the bedside. , Patient is sitting up in a couch at the bedside. She reports that she feels better. Denies any significant shortness of breath. Denies any chest pain or palpitations. Patient denies any nausea, vomiting, abdominal pain or diarrhea. Reports that she hasn't been making as much urine as home, despite the diuretics. Objective: Vitals (See below) General: Sitting up in sofa, appears to be comfortable without any distress, AAOx3 HEENT: NC, AT CVS: +S1S2 Lungs: Fair air entry b/l, auscultation does not reveal any crackles, wheezing or rhonchi Abdomen: Soft, ND, NT Extremities: No visible / pitting edema of LE, - Calf tenderness Assessment and plan: Elevated Cr on CKD3 - Baseline Cr of 2.2; has trended up throughout hospitalization with diuresis - Volume status currently appears euvolemic - Will hold diuretics - Will repeat BMP to ensure renal function improvement - Will consult nephrology s/p Shortness of breath - possibly 2/2 multifactorial etiology; 2/2 acute decompensated CHF, and possibly 2/2 acute COPD exacerbation - Presented to ER with complaints of shortness of breath with ambulation - Patient reports that she can ambulate now without any significant shortness of breath - Saturating well on room air - Clinically appears euvolemic and auscultation of the lungs appears to be clear - BNP elevated - CXR 06/27: No evidence for acute pulmonary disease. - ECHO 03/2020: 1. Normal global left ventricular systolic function. Left ventricular diastolic function assessment also appeared to be normal. 2. Aortic valve sclerosis with trivial aortic stenosis, but no aortic regurgitation. 3. Mitral annulus calcification with trace mitral regurgitation. 4. Mild tricuspid regurgitation with mild pulmonary hypertension. 7. Prior study was on 020 and at that time the gradient across the aortic valve was lower, but she still does not make it for aortic stenosis. - s/p Corticosteroids; s/p Diuretics - c/w inhaled therapy as ordered IDDM2 with episodes of hyperglycemia - likely 2/2 corticosteroid use - A1c of 10.3 - s/p Corticosteroids - c/w ISS and Levemir MARIZA on CPAP - Allow home CPAP while inpatient HTN - BP well controlled - c/w Bisoprolol and Amlodipine DLP - c/w Atorvastatin and Ezetimibe Obesity - BMI of 43.3 - Complicating medical care DVT prophylaxis - c/w Heparin VS,Fishbone, I+O VS, Fishbone, I+O Laboratory Tests 06/26/20 14:12 06/27/20 05:23 Vital Signs Date Time Temp Pulse Resp B/P (MAP) Pulse Ox O2 Delivery O2 Flow Rate FiO2 06/27/20 08:05 80 144/82 06/27/20 06:00 98.0 17 94 Room Air I&O- Last 24 Hours up to 6 AM 06/27/20 06:00 Intake Total 1075 ml Output Total 4150 ml Balance -3075 ml SONDRA ALEJANDRE MD Jun 27, 2020 12:57
[2020-06-27 14:00] VITALS: BP 142/80
[2020-06-27 16:13] LABS: CALCIUM LEVEL 7.2 MG/DL (8.8-10.2); CREATININE FOR GFR 2.75 MG/DL (0.55-1.30); GLOMERULAR FILTRATION RATE 18.4 (>45); POTASSIUM SERUM 3.9 MEQ/L (3.5-5.1)
--- NOTE | 2020-06-27 19:50 | ECGEPIP ---
[facility] Test Date: 2020-06-27 Pat Name: CELI JOHNSON Department: Room: [place] [address] Gender: Female Physician Scribe: TAY : 1955 Requested By: RAJAN LOPEZ Order Number: [id number] Reading MD: Shaun Willis Measurements Intervals [place] Rate: 75 P: 38 ID: [id number] QRS: -3 QRSD: 90 T: 124 QT: 425 QTc: 475 Interpretive Statements Normal sinus rhythm Delayed anterior R wave progression Probable left ventricular hypertrophy with repolarization abnormality No significant change when compared to prior tracing of 06/25/2020 Electronically Signed on 06-27-2020 19:50:37 EDT by Shaun Willis
[2020-06-27] MEDS: EZETIMIBE 10 MG TAB (ZETIA) PO SCH (20:22)
[2020-06-27] MEDS: ATORVASTATIN 20 MG TAB PO SCH (20:23)
[2020-06-27] MEDS: ACETAMINOPHEN TAB 650MG DOSE (2X325MG) PO PRN (20:25)
[2020-06-27] MEDS: LEVEMIR (INSULIN DETEMIR) 1 UNITS/0.01ML SC SCH (20:26)
[2020-06-27 22:00] VITALS: BP 159/70
[2020-06-28] MEDS: IPRATROPIUM 0.5MG/ALBUTEROL 2.5MG INH SOL UD 3ML (DUONEB) NEB SCH ×4 (02:00→20:00)
[2020-06-28] MEDS: ACETAMINOPHEN TAB 650MG DOSE (2X325MG) PO PRN ×2 (04:53→11:50)
[2020-06-28 05:39] LABS: BASO % 0.2 % (0.0-1.0); EOS # 0.1 10^3/uL (0.0-0.5); EOS % 0.9 % (0.0-3.0); HEMATOCRIT 32.6 % (36.0-47.0); LYMPH # 0.9 10^3/uL (1.5-5.0); MEAN CORPUSCULAR HEMOGLOBIN 26.5 pg (27.0-33.0); MEAN CORPUSCULAR HGB CONC 30.7 g/dl (32.0-36.5); MEAN CORPUSCULAR VOLUME 86.2 fl (80.0-96.0); MONO # 0.8 10^3/uL (0.0-0.8); MONO % 8.6 % (0.0-5.0); NEUTROPHILS # 7.8 10^3/uL (1.5-8.5); NEUTROPHILS % 80.5 % (36.0-66.0); PLATELET COUNT, AUTOMATED 236 10^3/uL (150-450); RED BLOOD COUNT 3.78 10^6/uL (4.00-5.40); WHITE BLOOD COUNT 9.8 10^3/uL (4.0-10.0)
[2020-06-28 05:58] LABS: CALCIUM LEVEL 7.9 MG/DL (8.8-10.2); CREATININE FOR GFR 2.63 MG/DL (0.55-1.30); GLOMERULAR FILTRATION RATE 19.4 (>45); MAGNESIUM LEVEL 2.1 MG/DL (1.8-2.4); POTASSIUM SERUM 4.3 MEQ/L (3.5-5.1)
[2020-06-28 06:00] VITALS: BP 131/71
[2020-06-28] MEDS: HEPARIN SOD (PORCINE) 5000UNITS/ML 1ML VIAL/SYRINGE SC SCH ×3 (06:11→20:55)
[2020-06-28] MEDS: ADVAIR HFA 230/21MCG INHALER INH SCH ×2 (07:25→20:36)
[2020-06-28] MEDS: HumaLOG INSULIN (NovoLOG) PER UNIT SC SCH ×4 (07:57→20:52)
[2020-06-28] MEDS: ASPIRIN 81 MG ENTERIC TAB PO SCH (07:57)
[2020-06-28] MEDS: GABAPENTIN 100 MG CAP PO SCH ×2 (07:58→20:23)
[2020-06-28] MEDS: CALCITRIOL 0.25 MCG CAP (S0169) PO SCH (07:58)
[2020-06-28] MEDS: bisoproloL fumarate 10 MG TAB PO SCH (07:58)
--- NOTE | 2020-06-28 09:34 | REPVR ---
PROCEDURE INFORMATION: Exam: CT Chest Without Contrast Exam date and time: 06/28/2020 7:51 AM Age: 65 years old Clinical indication: Fever TECHNIQUE: Imaging protocol: Computed tomography of the chest without contrast. 3D rendering (Not supervised by radiologist): MIP and/or 3D reconstructed images were created by the technologist. Radiation optimization: All CT scans at this facility use at least one of these dose optimization techniques: automated exposure control; mA and/or kV adjustment per patient size (includes targeted exams where dose is matched to clinical indication); or iterative reconstruction. COMPARISON: CT Chest without contrast 06/24/2019 9:12 AM FINDINGS: Thyroid: Incompletely visualized 13 mm nodular hypodense lesion in the right thyroid lobe. Lungs: Newly developed left lower lobe airspace disease, consistent with infiltrate, in the appropriate clinical setting. Follow-up chest imaging is recommended to ensure complete interval resolution. Interstitial prominence and trace dependent right-sided airspace disease. Pleural space: Small left pleural effusion. Heart: No cardiomegaly. Aorta: Calcification and ectasia of the thoracic aorta. Lymph nodes: Subcentimeter lymph nodes. Bones/joints: Degenerative change, Schmorl's nodes, vertebral endplate irregularity, and vacuum discs. Erosive change involving the T7-8 vertebral endplates, which has progressed when compared to the previous study, and would be suspicious for discitis. Correlation with MRI can be performed for improved characterization, as clinically indicated. IMPRESSION: 1. Erosive change involving the T7-8 vertebral endplates, which has progressed when compared to the previous study, and would be suspicious for discitis. Correlation with MRI can be performed for improved characterization, as clinically indicated. 2. Newly developed left lower lobe airspace disease, consistent with infiltrate, in the appropriate clinical setting. 3. Additional findings as described above. COMMENTS: Consistent with the [employer]'s Incidental Findings Committee white paper (J Am Juliano Radiol 2015): In patients aged 35 years and older with an incidental thyroid nodule equal to or greater than 1.[address], MRI or extrathyroidal US, further evaluation with dedicated thyroid US is recommended for patients with normal life expectancy and without comorbidities. For smaller nodules without suspicious features, no further evaluation or follow up is recommended. Electronically signed by: Hiram Barajas On 06/28/2020 09:34:04 AM
[2020-06-28] MEDS ORDERED: MEROPENEM INJ 1 GM in IV 1 EA IV SCH (09:45)
[2020-06-28 10:10] LABS: C REACTIVE PROTEIN QUANTITATIV 6.17 MG/DL (0.00-0.30)
--- NOTE | 2020-06-28 10:16 | IPNPDOC ---
Text Note Date of Service The patient was seen on 06/28/20. NOTE Subjective: Patient is a 65 year old female with a PMHx of COPD, Diastolic CHF, HTN, NIDDM2, DLP, CKD3 (Cr ~2.2) who presented to the ER with complaints of shortness of breath. Upon arrival, patient had reported wheezing and had evidence of some fluid overload, based on lower extremity swelling. Patient was admitted to the hospitalist service for further evaluation and treatment. Patient was seen and examined at the bedside. Patient sitting up at that adjusted the bed eating breakfast. She reports that overnight she was expressing chills. Denies any nausea, vomiting, chest pain, shortness breath, or change in her baseline cough. Denies any abdominal discomfort, diarrhea, or urinary discomfort. Objective: Vitals (See below) General: Sitting up at the edge of the bed eating breakfast appears to be comfortable, awake, alert and oriented 3 HEENT: NC, AT CVS: +S1S2 Lungs: Air entry appears to be fair bilaterally. Left lower lung base with mild crackles, no wheezing Abdomen: Soft, obese, nondistended, nontender Extremities: Lower tremors are free of any pitting edema, - Calf tenderness Assessment and plan: Fever - possibly 2/2 pneumonia, possibly 2/2 diskitis? - Overnight patient had an episode of fever of 100.1; then this morning of 100.8 - Patient reports that her cough is at baseline - Physical without any point tenderness on back is able to ambulate without any difficulty - No leukocytosis - Will check UA - Repeat blood cultures pending - Blood cultures 06/25: No growth at 48 hours - Respiratory panel 06/25: Negative - CT chest 06/28: 1. Erosive change involving the T7-8 vertebral endplates, which has progressed when compared to the previous study, and would be suspicious for discitis. Correlation with MRI can be performed for improved characterization, as clinically indicated. 2. Newly developed left lower lobe airspace disease, consistent with infiltrate, in the appropriate clinical setting. 3. Additional findings as described above. - Will check ESR / CRP / Procalcitonin / ECHO / MRSA screen - Will get MRI to evaluate - Will start Meropenem (Day #1) Elevated Cr on CKD3 - Baseline Cr of 2.2 - Currently has been improving - Volume status currently appears euvolemic - Continue to hold diuretics - Nephrology on consultation s/p Shortness of breath - possibly 2/2 multifactorial etiology; 2/2 acute decompensated CHF, and possibly 2/2 acute COPD exacerbation - Presented to ER with complaints of shortness of breath with ambulation - Reports that she can ambulate now without any significant shortness of breath - Saturating well on room air - Clinically appears euvolemic and auscultation of the lungs appears to be clear - BNP elevated - CXR 06/27: No evidence for acute pulmonary disease. - ECHO 03/2020: 1. Normal global left ventricular systolic function. Left ventricular diastolic function assessment also appeared to be normal. 2. Aortic valve sclerosis with trivial aortic stenosis, but no aortic regurgitation. 3. Mitral annulus calcification with trace mitral regurgitation. 4. Mild tricuspid regurgitation with mild pulmonary hypertension. 7. Prior study was on 10/17/2019 and at that time the gradient across the aortic valve was lower, but she still does not make it for aortic stenosis. - s/p Corticosteroids; s/p Diuretics - c/w inhaled therapy as ordered IDDM2 with episodes of hyperglycemia - likely 2/2 corticosteroid use - A1c of 10.3 - s/p Corticosteroids - c/w ISS and Levemir MARIZA on CPAP - Allow home CPAP while inpatient HTN - BP well controlled - c/w Bisoprolol and Amlodipine DLP - c/w Atorvastatin and Ezetimibe Obesity - BMI of 43.3 - Complicating medical care DVT prophylaxis - c/w Heparin Disposition: - Will complete workup of fever VS,Fishbone, I+O VS, Fishbone, I+O Laboratory Tests 06/27/20 15:42 06/28/20 04:52 Vital Signs Date Time Temp Pulse Resp B/P (MAP) Pulse Ox O2 Delivery O2 Flow Rate FiO2 06/28/20 07:58 88 135/71 06/28/20 06:00 100.7 20 92 Room Air I&O- Last 24 Hours up to 6 AM 06/28/20 06:00 Intake Total 1230 ml Output Total 2100 ml Balance -870 ml SONDRA ALEJANDRE MD Jun 28, 2020 10:16
[2020-06-28] MEDS: BUMETANIDE 1 MG TAB PO SCH (10:44)
[2020-06-28 10:59] LABS: ERYTHROCYTE SEDIMENTATION RATE 70 mm/hr (0-30)
[2020-06-28] MEDS ORDERED: MEROPENEM INJ 500 MG in IV 1 EA IV SCH (11:00)
--- NOTE | 2020-06-28 11:22 | REPVR ---
PROCEDURE INFORMATION: Exam: MR Thoracic Spine Without Contrast Exam date and time: 06/28/2020 10:45 AM Age: 65 years old Clinical indication: Pain and abnormal findings; Abnormal radiologic findings of thoracic; Pain in thoracic spine; Without myelpathy or radiculopathy; Patient HX: Back pain, abn CT on pacs; Additional info: Questionable diskitis TECHNIQUE: Imaging protocol: Multiplanar magnetic resonance images of the thoracic spine without contrast. COMPARISON: CT Chest without contrast 06/28/2020 8:37:23 AM FINDINGS: Vertebrae: Examination reveals abnormal signal intensity involving the the T7-8 disc and adjacent vertebral endplates which appear hypointense on T1 hyperintense on T2 and STIR weighted images consistent with early discitis and osteomyelitis. This can be confirmed with a contrast-enhanced MRI if clinically warranted. Erosive changes of the endplates were noted on the prior CT scan. Otherwise, remainder of the thoracic vertebral bodies are normal in height, alignment and signal intensity. Postsurgical changes are noted in the lower cervical spine with metallic inhomogeneity artifact limiting evaluation in this region. The study is limited due to motion artifact. Epidural space: There is no evidence of epidural masses or hemorrhage. Spinal cord: The thoracic spinal cord is normal in thickness and signal intensity.There is no cord compression or intramedullary signal abnormality. Discs/Spinal canal/Neural foramina: Remainder of the thoracic disc spaces reveal moderate to severe disc space narrowing, mild degenerative endplate changes and prominent marginal anterior osteophytes. There is a mild diffuse posterior bulging/diffuse posterior herniation at multiple levels but without significant spinal canal or foraminal stenosis. Soft tissues: The prevertebral soft tissues appear normal. IMPRESSION: 1. Examination reveals abnormal signal intensity involving the the T7-8 disc and adjacent vertebral endplates which appear hypointense on T1 hyperintense on T2 and STIR weighted images consistent with early discitis and osteomyelitis. This can be confirmed with a contrast-enhanced MRI if clinically warranted. Erosive changes of the endplates were noted on the prior CT scan. 2. Otherwise, remainder of the thoracic vertebral bodies are normal in height, alignment and signal intensity. Postsurgical changes are noted in the lower cervical spine with metallic inhomogeneity artifact limiting evaluation in this region. 3. The thoracic spinal cord is normal in thickness and signal intensity.There is no cord compression or intramedullary signal abnormality. 4. The study is limited due to motion artifact. Electronically signed by: Erwin Cabrera On 06/28/2020 11:22:04 AM
--- NOTE | 2020-06-28 11:50 | REPVR ---
PROCEDURE INFORMATION: Exam: US Soft Tissue Head and Neck, Thyroid Exam date and time: 06/28/2020 11:30 AM Age: 65 years old Clinical indication: Screening exam; Nodule; Additional info: Questionable diskitis TECHNIQUE: Imaging protocol: Real-time ultrasound scan of the neck with image documentation. Exam focused on the thyroid. COMPARISON: Thyroid, head+neck US 10/18/2017 10:58 AM FINDINGS: Right thyroid lobe: 4.8 x 3.5 x 2.8 cm in dimensions. Mildly enlarged and heterogeneous in echotexture. There is a well-defined solid hypoechoic complex nodule in the midpole of the right thyroid with few small echogenic foci which may represent microcalcifications. Biopsy may be considered for further evaluation. Left thyroid lobe: 4.3 x 1.5 x 1.4 cm. Normal in size and echotexture. No nodules are seen. Isthmus: 7 mm. IMPRESSION: There is a well-defined solid hypoechoic complex nodule in the midpole of the right thyroid with few small echogenic foci which may represent microcalcifications. Biopsy may be considered for further evaluation. Electronically signed by: Erwin Cabrera On 06/28/2020 11:49:43 AM
[2020-06-28] MEDS ORDERED: VANCOMYCIN HCL 750 MG, VIAL MATE ADAPTER 1 EACH in D5W 250 ML IV SCH (12:00)
[2020-06-28] MEDS ORDERED: VANCOMYCIN INTERMITTENT/PULSE DOSING BY CLINICAL PHARMACIST PER DOSING PROTOCOL XX SCH (12:30)
[2020-06-28] MEDS ORDERED: VANCOMYCIN HCL 1,000 MG, VIAL MATE ADAPTER 1 EACH in D5W 250 ML IV ONE (12:30)
[2020-06-28 14:00] VITALS: BP 130/70
[2020-06-28] MEDS ORDERED: VANCOMYCIN HCL 500 MG in D5W MINI-BAG PLUS 100 ML IV ONE (14:00)
[2020-06-28] MEDS: ACETAMINOPHEN 500 MG TAB PO PRN (18:54)
[2020-06-28 19:45] VITALS: BP 162/80
[2020-06-28 19:56] VITALS: BP 184/78
[2020-06-28] MEDS: EZETIMIBE 10 MG TAB (ZETIA) PO SCH (20:23)
[2020-06-28] MEDS: ATORVASTATIN 20 MG TAB PO SCH (20:23)
[2020-06-28] MEDS ORDERED: hydrALAZINE 20MG/ML 1ML VIAL (J0360 PER 20MG) IV ONE ×2 (20:30)
[2020-06-28] MEDS: LEVEMIR (INSULIN DETEMIR) 1 UNITS/0.01ML SC SCH (20:51)
[2020-06-28] MEDS: MEROPENEM INJ 1 GM in IV 1 EA IV SCH (20:54)
[2020-06-28 21:15] VITALS: BP 162/82
[2020-06-28] MEDS ORDERED: SLF 3 ML SYR IV PRN (22:00)
[2020-06-28] MEDS: SLF 3 ML SYR IV SCH (22:17)
[2020-06-28] MEDS ORDERED: MEROPENEM IV SCH (23:00)
[2020-06-29] VITALS (7 sets, daily range): BP systolic 138–180; BP diastolic 62–104
[2020-06-29] MEDS: ACETAMINOPHEN TAB 650MG DOSE (2X325MG) PO PRN ×2 (03:49→09:40)
[2020-06-29] MEDS: IPRATROPIUM 0.5MG/ALBUTEROL 2.5MG INH SOL UD 3ML (DUONEB) NEB SCH ×4 (03:52→19:36)
[2020-06-29] MEDS ORDERED: hydrALAZINE 20MG/ML 1ML VIAL (J0360 PER 20MG) IV ONE (04:15)
[2020-06-29 05:12] LABS: BASO % 0.3 % (0.0-1.0); EOS # 0.1 10^3/uL (0.0-0.5); EOS % 1.3 % (0.0-3.0); HEMATOCRIT 29.3 % (36.0-47.0); HEMOGLOBIN 9.2 g/dl (12.0-15.5); LYMPH # 0.8 10^3/uL (1.5-5.0); LYMPH % 7.3 % (24.0-44.0); MEAN CORPUSCULAR HEMOGLOBIN 26.9 pg (27.0-33.0); MEAN CORPUSCULAR HGB CONC 31.4 g/dl (32.0-36.5); MEAN CORPUSCULAR VOLUME 85.7 fl (80.0-96.0); MONO # 0.8 10^3/uL (0.0-0.8); MONO % 7.6 % (0.0-5.0); NEUTROPHILS # 8.4 10^3/uL (1.5-8.5); NEUTROPHILS % 82.6 % (36.0-66.0); PLATELET COUNT, AUTOMATED 214 10^3/uL (150-450); RED BLOOD COUNT 3.42 10^6/uL (4.00-5.40); WHITE BLOOD COUNT 10.2 10^3/uL (4.0-10.0)
[2020-06-29 05:36] LABS: CALCIUM LEVEL 7.1 MG/DL (8.8-10.2); CREATININE FOR GFR 2.82 MG/DL (0.55-1.30); GLOMERULAR FILTRATION RATE 17.9 (>45); MAGNESIUM LEVEL 1.8 MG/DL (1.8-2.4); POTASSIUM SERUM 4.1 MEQ/L (3.5-5.1)
[2020-06-29] MEDS: HEPARIN SOD (PORCINE) 5000UNITS/ML 1ML VIAL/SYRINGE SC SCH ×3 (05:56→22:34)
[2020-06-29] MEDS: SLF 3 ML SYR IV SCH ×3 (05:57→22:33)
[2020-06-29] MEDS ORDERED: amLODIPine 5 MG TAB As Ordered ONE (06:21)
[2020-06-29] MEDS: ADVAIR HFA 230/21MCG INHALER INH SCH ×2 (07:07→19:36)
[2020-06-29] MEDS ORDERED: amLODIPine 10 MG TAB PO ONE (07:30)
[2020-06-29] MEDS: HumaLOG INSULIN (NovoLOG) PER UNIT SC SCH ×4 (07:56→20:28)
[2020-06-29] MEDS ORDERED: amLODIPine 5 MG TAB PO ONE (09:00)
[2020-06-29] MEDS ORDERED: amLODIPine 5 MG TAB PO SCH (09:00)
[2020-06-29] MEDS ORDERED: bisoproloL fumarate 10 MG TAB PO ONE (09:00)
[2020-06-29] MEDS: MEROPENEM INJ 1 GM in IV 1 EA IV SCH ×2 (09:39→20:38)
[2020-06-29] MEDS: ASPIRIN 81 MG ENTERIC TAB PO SCH (09:40)
[2020-06-29] MEDS: GABAPENTIN 100 MG CAP PO SCH ×2 (09:40→20:29)
[2020-06-29] MEDS: BUMETANIDE 1 MG TAB PO SCH (09:41)
[2020-06-29] MEDS ORDERED: oxyCODONE 5MG TAB PO ONE (10:00)
[2020-06-29] MEDS: guaiFENesin ER 600 MG TAB PO SCH ×2 (12:58→20:29)
[2020-06-29] MEDS ORDERED: VANCOMYCIN HCL 1,000 MG, VIAL MATE ADAPTER 1 EACH in D5W 250 ML IV ONE (13:00)
--- NOTE | 2020-06-29 15:30 | CR ---
DATE OF CONSULTATION: 06/28/2020 CONSULTATION REQUESTED BY: Dr. Hernandez. REASON FOR CONSULTATION: Evaluation of pneumonia and questionable thoracic discitis. HISTORY OF PRESENT ILLNESS: Mrs. Irving is a 65-year-old female, who was sent to the Emergency Room because of increasing shortness of breath. The patient has a history of congestive heart failure. Her shortness of breath had started about one week prior to admission. She describes her dyspnea with exertion. She does not use home oxygen. She states s has a cough, but was mostly productive of clear phlegm. She did not have fever, chills, nausea, vomiting or diarrhea on admission. The patient has a past medical history of COPD, congestive heart failure, and therefore received I.V. diuresis and Solu-Medrol 125 mg I.V. followed by a couple doses of 60 mg. She was slightly improving, but then 72 hours into her hospitalization, developed a temperature of 101, increasing cough mostly productive of clear phlegm, and worsening shortness of breath. She also describes chronic blood pressure mostly in her neck area where she had anterior neck fusion. She describes mid thoracic pain as jabbing pains that are in both flank areas, that last about 1-2 minutes and resolve on their own. They happen 2-3 times a day and they have been reoccurring for the past 3 months. PAST MEDICAL HISTORY: Significant for COPD, congestive heart failure, insulin dependent diabetes, chronic kidney disease, stage 3 hypertension, hyperlipidemia. PAST SURGICAL HISTORY: Hernia repair x2, bilateral cataract surgery, bilateral total hip replacement, tubal ligation, anterior spinal cervical fusion, lumbar spine surgery in the , cervical fusion in 2002. FAMILY HISTORY: Diabetes, heart disease father and mother. SOCIAL HISTORY: She quit smoking over 20 years ago. She has two healthy children. 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 ALLERGIES: Penicillin causing hives, Doxycycline unknown. MEDICATIONS: 1. Meropenem 1 gram I.V. every 12 hours. 2. Vancomycin 1.5 gram I.V. loading. 3. Insulin Levemir 30 units subcutaneously q.h.s. 4. Calcitriol 0.25 mcg p.o. Sunday, Sunday, Sunday. 5. Bumex 1 mg p.o. daily. 6. Amlodipine 2.5 mg p.o. daily. 7. Aspirin 81 mg p.o. daily. 8. Bisoprolol 10 mg p.o. daily. 9. Lipitor 80 mg p.o. q.h.s. 10. Zetia 10 mg p.o. q.h.s. 11. Gabapentin 100 mg p.o. b.i.d. 12. Albuterol and Atrovent nebs every 6 hours p.r.n. 13. Fluticasone two puffs inhaled b.i.d. 14. Tylenol p.r.n. LABORATORY DATA: White count on admission 8, on 06/27/2020, white count 12.6 and today 9.8. Hemoglobin 10, hematocrit 32.6, platelets 236,000, 80% neutrophils, 9% lymphocytes, 8% monocytes. ESR 70. Sodium 139, potassium 4.3, chloride 108, bicarb 25, BUN 83, creatinine 2.6 down from 3.16, glucose 262, calcium 7.9, magnesium 2.1. CRP 6.17. MRSA PCR is pending. Urinalysis: 1 white cell, 3 red cells. Blood cultures two sets were no growth on 06/25/2020. Respiratory panel was negative on 06/25/2020. Blood cultures ordered on 06/28/2020 are pending; they were done 30 minutes apart. IMAGING STUDIES: Chest x-ray done 06/25/2020 and 06/27/2020 showed no acute infiltrates. The 06/28/[address] shows a thyroid nodule, erosive changes at T7, T8 vertebral end-plates, which had progressed when compared to previous study, suspicious for discitis. MRI was recommended and a new left lower airspace disease, consistent with an infiltrate. MRI of the thoracic spine also showed thoracic erosive changes T7-T8. No cord compression. No paraspinal phlegmon. Question consistent with early discitis and osteomyelitis. Also recommended confirmation with MRI with contrast, although that could not be given due to kidney disease. Thyroid ultrasound showed few well defined hypoechoic complex nodules; may represent microcalcification, biopsy should be considered. PHYSICAL EXAMINATION: A sick looking female in moderate discomfort when she coughs. T-max 101.1, pulse 91, respirations 20, blood pressure 130/70, O2 sat 93% on room air. Heart: Normal S1, S2, no murmurs appreciated. Lungs: Diminished breath sounds at the left base with a few expiratory wheezes. Abdomen: Obese, soft, nontender. No hepatosplenomegaly. Back: No cervical tenderness. No thoracic point tenderness. Minimal lumbosacral tenderness. Extremities: No cyanosis or clubbing, trace edema bilaterally. Neurologic exam: Alert and oriented x3. Motor strength normal. Right hand tremor. IMPRESSION: This is a 65-year-old female with a history of COPD and diastolic congestive heart failure, admitted with what was felt to be congestive heart failure and treated with I.V. diuresis and Solu-Medrol. She developed a fever 72 hours into her hospitalization with leukocytosis with a new pneumonia that was not present on two chest x-rays done the first two days of admission, that would be considered a hospital acquired pneumonia. The patient has been started on I.V. Vancomycin and Meropenem to cover for MRSA pseudomonas and other common pathogens. MRSA PCR is pending. The other finding was possibility of thoracic discitis at T7- T8. Patient had a CT scan done about a year ago, that showed thoracic changes at T7, T8, but they were not as prominent as the ones currently seen. For interventional radiology, Dr. Corrales, does not feel he can get a biopsy of the disc space and that would need neurosurgical or orthopedic intervention. PLAN: Continue with I.V. vancomycin and Meropenem. Would increase the dose of Meropenem to 1 gram every 12 hours. I will obtain MRSA screen. If negative and sputum culture negative, would discontinue Vancomycin. Consult orthopedic surgery for MRI finding of discitis, specifically Dr. Hernandez, to make sure to discuss findings of discitis in case we will need a biopsy, possibly if that could be done with orthopedics. At this point, I would suggest treating the pneumonia and once this is improved, if back pain continues and increased ESR and CRP, then a biopsy could be obtained of the thoracic space.Sputum gram stain and culture was also ordered, and patient was given a cup at the bedside. Review of echocardiogram done on 04/19/2020 showed normal left ventricular systolic function, left ventricular diastolic function is normal. Aortic valve sclerosis did reveal aortic stenosis, mitral annulus calcification, trace MR, trace tricuspid regurgitation with mild pulmonary hypertension. [facility]
--- NOTE | 2020-06-29 16:24 | CR ---
DATE OF CONSULTATION: 06/27/2020 REQUESTING PHYSICIAN: Betty Hernandez MD CONSULTING PHYSICIAN: Sydnie Laurent MD REASON FOR CONSULTATION: Management of acute kidney injury superimposed on chronic kidney disease. CHIEF COMPLAINT: Patient was admitted on 06/25/2020 with progressive shortness of breath and acute chronic obstructive pulmonary disease (COPD) exacerbation. HISTORY OF PRESENT ILLNESS: Ritika Irving is a 65-year-old female with past medical history of COPD, congestive heart failure (CHF), diabetes mellitus type 2, chronic kidney disease stage III, she follows up with nephrology clinic as outpatient, multiple other comorbidities as mentioned below. She presented to the hospital on 06/25/2020 with progressive shortness of breath. She was admitted under the hospitalist service and was given nebulizations and steroids and along with that she was aggressively diuresed, and after 3 days of treatment her breathing is significantly better, however her renal function continues to get worse, her creatinine has bumped up to 3.1 today, so nephrology service was called for further help in the management of this patient. I saw and evaluated the patient today morning at the bedside. She reports that she is feeling better. She denies any shortness of breath, wheezing, nausea, or vomiting. PAST MEDICAL HISTORY: Past medical history of chronic kidney disease stage III, COPD, congestive heart failure, diabetes mellitus type 2, insulin-dependent, hyperlipidemia, hypertension. PAST SURGICAL HISTORY: Status post hernia repair times two, history of cataract surgery, total hip replacement bilaterally, tubal legation, lumbar spine surgery, and spinal cervical fusion. ALLERGIES: She is allergic to DOXYCYCLINE and PENICILLIN. FAMILY HISTORY: No significant family history of end-stage renal disease requiring hemodialysis. SOCIAL HISTORY: She lives at home. She denies any illicit drug abuse and she quit smoking 20 years ago. REVIEW OF SYSTEMS: Constitutional: She denies any fevers or chills. Eyes: She denies any blurry vision or double vision. Ears, nose, and throat (ENT): She denies any dysphagia or odynophagia. Cardiovascular: She denies any palpitations and reports her shortness of breath and edema is better. Respiratory: She did come in with shortness of breath, however her shortness of breath is better now. Gastrointestinal (GI): She denies any nausea or vomiting. Genitourinary: She denies any dysuria or hematuria. Musculoskeletal: She denies any muscle aches and pains. Skin: She denies any rashes or ulcers. Psychiatric: She denies any depression or anxiety. Central nervous system (CARGO TRIMMER): She denies any dizziness, seizures, or weakness. Endocrine: She reports history of diabetes mellitus type 2, insulin-dependent. Hematological/Oncological: She denies any easy bleeding or bruising. All other review of systems is negative. PHYSICAL EXAMINATION: General: Patient is awake, alert, oriented times three, sitting up in the sofa. Vital signs: Temperature is 98.3 degrees Fahrenheit, blood pressure 142/80, pulse is 82, respiratory rate of 17, saturating 93% on room air. Intake and output: Urine output recorded is 3.3 liters yesterday, 1.5 liters so far today since overnight. Head and neck exam: Extraocular muscles intact. Pupils equally round and reactive to light. Mucous membranes are moist. Neck is supple. There is mildly elevated jugular venous distension (JVD). Cardiovascular: S1, S2, regular rate. No significant edema of the bilateral lower extremities. Respiratory: Mildly decreased breath sounds at the bases, otherwise no active rales or rhonchi. Abdomen: Soft, obese, positive bowel sounds, nontender, no organomegaly. Musculoskeletal: No clubbing or cyanosis. Pulses are 2+. CARGO TRIMMER: No focal deficits. Power is 5/5 in all extremities. LABORATORY REVIEW: CBC showed WBC 12.6, hemoglobin 9.4, platelets are 286. BMP showed sodium 141, potassium 3.9, chloride 107, bicarbonate 26, BUN 87, creatinine 3.1, it was 2.9 yesterday, A1c is 10.3, calcium is 7.2. proBNP was 3619. Microbiology: All the cultures are negative so far. IMAGING: Chest x-ray was done today morning which showed no evidence of acute pulmonary disease. CURRENT INPATIENT MEDICATIONS: Patient is on Tylenol as needed, Tylenol as needed, DuoNeb nebulizations, amlodipine 2.5 mg by mouth daily, aspirin 81 mg daily, Lipitor 80 mg nightly, bisoprolol 10 mg by mouth daily, she got Bumex 2 mg IV yesterday, she is on calcitriol 0.25 mcg by mouth Sunday, Sunday, Sunday, Zetia 10 mg nightly, gabapentin 100 mg by mouth twice a day, insulin Levemir 40 units nightly and insulin sliding scale, Protonix 40 mg IV one dose, and she was getting prednisone 40 mg by mouth daily which has been stopped now. She has been started on Advair two puffs twice a day. ASSESSMENT: 65-year-old female with acute chronic obstructive pulmonary disease (COPD) exacerbation now with acute kidney injury superimposed on chronic kidney disease. PLAN: 1. Acute kidney injury superimposed on chronic kidney disease. Most likely secondary to aggressive diuresis. Patient got a dose of Bumex yesterday and she was also given furosemide yesterday so most likely bump in the creatinine is secondary to aggressive diuresis. Hopefully, renal function should improve over the next 24-48 hours. However, I would recommend keeping the patient inpatient and wait for the creatinine to start trending down before sending her home. 2. Acute chronic obstructive pulmonary disease (COPD) exacerbation. Patient is clinically better. Prednisone is being cut down. She continues to be on DuoNeb nebulizations and Advair. Volume status is optimal. 3. Hypertension. Blood pressure is optimal. Continue current dose of amlodipine and bisoprolol. 4. Secondary hyperparathyroidism. Continue current dose of calcitriol 0.25 mcg by mouth Sunday, Sunday, Sunday. 5. Diabetes mellitus type 2, insulin-dependent. Glucose levels were high because of prednisone. She is currently on insulin sliding scale coverage and Levemir. Glucose levels are improving now. Thank you for involving me in the care of this patient. I shall be happy to follow the patient along with you tomorrow morning. [facility]
[2020-06-29] MEDS: LEVEMIR (INSULIN DETEMIR) 1 UNITS/0.01ML SC SCH (20:28)
[2020-06-29] MEDS: EZETIMIBE 10 MG TAB (ZETIA) PO SCH (20:29)
[2020-06-29] MEDS: ATORVASTATIN 20 MG TAB PO SCH (20:30)
[2020-06-29] MEDS: bisoproloL fumarate 10 MG TAB PO SCH (20:37)
[2020-06-29] MEDS: ACETAMINOPHEN 500 MG TAB PO PRN (22:37)
[2020-06-30] VITALS (8 sets, daily range): BP systolic 118–168; BP diastolic 55–83
[2020-06-30] MEDS: IPRATROPIUM 0.5MG/ALBUTEROL 2.5MG INH SOL UD 3ML (DUONEB) NEB SCH ×4 (02:29→19:24)
[2020-06-30 04:57] LABS: BASO % 0.3 % (0.0-1.0); EOS # 0.3 10^3/uL (0.0-0.5); HEMATOCRIT 28.3 % (36.0-47.0); HEMOGLOBIN 8.8 g/dl (12.0-15.5); LYMPH % 12.1 % (24.0-44.0); MEAN CORPUSCULAR HEMOGLOBIN 27.1 pg (27.0-33.0); MEAN CORPUSCULAR HGB CONC 31.1 g/dl (32.0-36.5); MEAN CORPUSCULAR VOLUME 87.1 fl (80.0-96.0); MONO # 0.5 10^3/uL (0.0-0.8); MONO % 6.5 % (0.0-5.0); NEUTROPHILS % 76.3 % (36.0-66.0); PLATELET COUNT, AUTOMATED 203 10^3/uL (150-450); RED BLOOD COUNT 3.25 10^6/uL (4.00-5.40); WHITE BLOOD COUNT 7.8 10^3/uL (4.0-10.0)
[2020-06-30 05:16] LABS: CALCIUM LEVEL 7.5 MG/DL (8.8-10.2); CREATININE FOR GFR 3.07 MG/DL (0.55-1.30); GLOMERULAR FILTRATION RATE 16.2 (>45)
[2020-06-30] MEDS: HEPARIN SOD (PORCINE) 5000UNITS/ML 1ML VIAL/SYRINGE SC SCH ×3 (05:31→21:31)
[2020-06-30] MEDS: SLF 3 ML SYR IV SCH ×3 (05:31→21:31)
[2020-06-30] MEDS: ADVAIR HFA 230/21MCG INHALER INH SCH ×2 (07:10→19:24)
[2020-06-30] MEDS: ASPIRIN 81 MG ENTERIC TAB PO SCH (07:50)
[2020-06-30] MEDS: bisoproloL fumarate 10 MG TAB PO SCH ×2 (07:51→20:39)
[2020-06-30] MEDS: ACETAMINOPHEN 500 MG TAB PO PRN (07:51)
[2020-06-30] MEDS: amLODIPine 10 MG TAB PO SCH (07:52)
[2020-06-30] MEDS: MEROPENEM INJ 1 GM in IV 1 EA IV SCH ×2 (07:52→20:41)
[2020-06-30] MEDS: CALCITRIOL 0.25 MCG CAP (S0169) PO SCH (07:52)
[2020-06-30] MEDS: guaiFENesin ER 600 MG TAB PO SCH ×2 (07:52→20:40)
[2020-06-30] MEDS: GABAPENTIN 100 MG CAP PO SCH ×2 (07:52→20:40)
[2020-06-30] MEDS: HumaLOG INSULIN (NovoLOG) PER UNIT SC SCH ×4 (08:01→20:41)
[2020-06-30 08:26] LABS: C REACTIVE PROTEIN QUANTITATIV 18.4 MG/DL (0.00-0.30)
[2020-06-30 09:35] LABS: ERYTHROCYTE SEDIMENTATION RATE 124 mm/hr (0-30)
--- NOTE | 2020-06-30 11:26 | REPVR ---
PROCEDURE INFORMATION: Exam: MR Lumbar Spine Without Contrast. Exam date and time: 06/30/2020 10:35 AM Age: 65 years old Clinical indication: Low back pain; Patient HX: Lbp; Additional info: Thoracic disitis lbp TECHNIQUE: Imaging protocol: Multiplanar magnetic resonance images of the lumbar spine without intravenous contrast. COMPARISON: CR Spine. Lumbosacral, complete 10/17/2019 11:02 AM FINDINGS: Vertebrae: There is no fracture or listhesis. Normal vertebral body alignment and heights are preserved. There is moderate to severe intervertebral disc space loss at L2/3 and L4/5. Spinal cord: Normal signal. No cord compression. L1-L2: No significant disc disease. No significant spinal canal stenosis. No neural foraminal stenosis. L2-L3: There is diffuse disc bulging with a prominent left foraminal component. There is moderate facet and ligamentous hypertrophy. There is moderate canal stenosis. There is mild right and moderate left neural foraminal narrowing. L3-L4: There is shallow disc bulging. There is moderate facet and ligamentous hypertrophy. There is mild canal stenosis. There is mild bilateral neural foraminal narrowing. L4-L5: There is diffuse disc bulging. There is moderate facet and ligamentous hypertrophy. There is [id number] bilateral neural foraminal narrowing. L5-S1: There is diffuse disc bulging. There is mild facet hypertrophy. The spinal canal and neural foramina are patent. Soft tissues: Unremarkable. IMPRESSION: Degenerative disc disease and spondylosis. At L2/3, changes contribute to moderate canal stenosis. There is moderate left neural foraminal narrowing. Electronically signed by: Jackelin Rockwell On 06/30/2020 11:26:29 AM
[2020-06-30] MEDS ORDERED: VANCOMYCIN HCL 500 MG in D5W MINI-BAG PLUS 100 ML IV ONE (13:00)
[2020-06-30] MEDS: EZETIMIBE 10 MG TAB (ZETIA) PO SCH (20:40)
[2020-06-30] MEDS: ATORVASTATIN 20 MG TAB PO SCH (20:40)
[2020-06-30] MEDS ORDERED: LEVEMIR (INSULIN DETEMIR) 1 UNITS/0.01ML SC SCH (21:00)
[2020-06-30] MEDS: oxyCODONE 5MG TAB PO PRN (22:54)
[2020-07-01] VITALS: BP 152/84
[2020-07-01] MEDS: IPRATROPIUM 0.5MG/ALBUTEROL 2.5MG INH SOL UD 3ML (DUONEB) NEB SCH ×4 (02:02→19:29)
[2020-07-01 05:00] VITALS: BP 142/66
[2020-07-01] MEDS: HEPARIN SOD (PORCINE) 5000UNITS/ML 1ML VIAL/SYRINGE SC SCH ×3 (05:35→21:06)
[2020-07-01] MEDS: SLF 3 ML SYR IV SCH ×3 (05:35→21:10)
[2020-07-01] MEDS: ADVAIR HFA 230/21MCG INHALER INH SCH ×2 (07:40→19:29)
[2020-07-01 07:43] LABS: BASO % 0.2 % (0.0-1.0); EOS # 0.3 10^3/uL (0.0-0.5); EOS % 6.7 % (0.0-3.0); HEMOGLOBIN 8.5 g/dl (12.0-15.5); LYMPH # 0.8 10^3/uL (1.5-5.0); LYMPH % 15.5 % (24.0-44.0); MEAN CORPUSCULAR HEMOGLOBIN 26.4 pg (27.0-33.0); MEAN CORPUSCULAR HGB CONC 30.4 g/dl (32.0-36.5); MONO # 0.6 10^3/uL (0.0-0.8); MONO % 11.6 % (0.0-5.0); NEUTROPHILS # 3.2 10^3/uL (1.5-8.5); PLATELET COUNT, AUTOMATED 215 10^3/uL (150-450); RED BLOOD COUNT 3.22 10^6/uL (4.00-5.40); WHITE BLOOD COUNT 4.9 10^3/uL (4.0-10.0)
[2020-07-01 07:57] LABS: CALCIUM LEVEL 7.8 MG/DL (8.8-10.2); CREATININE FOR GFR 2.88 MG/DL (0.55-1.30); GLOMERULAR FILTRATION RATE 17.5 (>45); POTASSIUM SERUM 4.3 MEQ/L (3.5-5.1)
[2020-07-01 08:00] VITALS: BP 158/73
[2020-07-01 08:21] LABS: C REACTIVE PROTEIN QUANTITATIV 11.7 MG/DL (0.00-0.30)
[2020-07-01 08:35] LABS: ERYTHROCYTE SEDIMENTATION RATE > 140 mm/hr (0-30)
[2020-07-01] MEDS ORDERED: VANCOMYCIN HCL 750 MG, VIAL MATE ADAPTER 1 EACH in D5W 250 ML IV ONE (09:00)
[2020-07-01] MEDS: HumaLOG INSULIN (NovoLOG) PER UNIT SC SCH ×4 (09:22→21:00)
[2020-07-01] MEDS: LEVEMIR (INSULIN DETEMIR) 1 UNITS/0.01ML SC SCH ×2 (09:22→21:07)
[2020-07-01] MEDS: guaiFENesin ER 600 MG TAB PO SCH ×2 (09:25→21:07)
[2020-07-01] MEDS: ASPIRIN 81 MG ENTERIC TAB PO SCH (09:25)
[2020-07-01] MEDS: bisoproloL fumarate 10 MG TAB PO SCH ×2 (09:26→21:08)
[2020-07-01] MEDS: MEROPENEM INJ 1 GM in IV 1 EA IV SCH ×2 (09:26→21:06)
[2020-07-01] MEDS: GABAPENTIN 100 MG CAP PO SCH ×2 (09:26→21:07)
[2020-07-01] MEDS: amLODIPine 10 MG TAB PO SCH (09:26)
--- NOTE | 2020-07-01 10:12 | IPN ---
DATE: 06/28/2020 SUBJECTIVE: Patient was seen and examined at the bedside today morning. Her room has been changed. She just came back after getting imaging done in radiology department. Initially, she got a CT of the chest done which showed new left-sided infiltrate along with possibility of discitis in the thoracic spine. Then, she was sent to the MRI department which confirmed the presence of discitis in T7-T8 discs. Patient also reported getting chills and fever spikes, maximum temperature (T-max) is 100.7 degrees Fahrenheit today morning. She also complains of persistent cough. OBJECTIVE: Vital signs: Temperature is 100.7 degrees Fahrenheit, blood pressure 131/71, pulse is 87, respiratory rate of 20, saturating 92% on room air. Intake and output: Urine output recorded is 700 mL. Weight in the bed scale is not available. PHYSICAL EXAMINATION: General: Patient is awake, alert, oriented times three, mild respiratory distress, morbidly obese, laying in bed. Head and neck exam: Extraocular muscles intact. Pupils equally round and reactive to light. Mucous membranes are moist. Neck is supple. I could not appreciate the jugular venous distension (JVD) because of the body habitus. Cardiovascular: S1, S2, regular rate. Trace edema of the bilateral lower extremities. Respiratory: Mild expiratory rhonchi and decreased breath sounds at the bases. Abdomen: Soft, obese, positive bowel sounds, nontender, no organomegaly. Musculoskeletal: No clubbing or cyanosis. Pulses are 2+. Central nervous system (CRAB BACKER): No focal deficits. Power is 5/5 in all extremities. LABORATORY REVIEW: CBC showed WBC 9.8, hemoglobin is 10, platelets are 236. Urinalysis done today showed 2+ protein, 1+ blood, no nitrite, no leukocyte esterase. BMP done today morning showed sodium 139, potassium 4.3, chloride 108, bicarbonate 25, BUN 83, creatinine is 2.6, it was 2.7 yesterday, calcium is 7.9, magnesium is 2.1, C-reactive protein is 6.1. Microbiology: Repeat blood cultures are pending. IMAGING: A CT scan of the chest was done today morning which showed erosive changes involving the T7-T8 vertebral endplates suspicious for discitis. Newly developed left lower lobe airspace disease consistent with infiltrate. She also had an MRI done which showed abnormal signal intensity in T7 and T8 concerning for acute discitis. CURRENT INPATIENT MEDICATIONS: Patients medications were all reviewed by myself. She has been started on meropenem 500 mg IV every 12 hours. Because of possibility of methicillin-resistant Staphylococcus aureus (MRSA) causing acute discitis I have added the vancomycin as well. I also started the patient on home dose of Bumex 1 mg by mouth daily. ASSESSMENT AND PLAN: 1. Acute kidney injury superimposed on chronic kidney disease. Patients baseline creatinine is around 2.2, it has improved to 2.6 today. I have restarted her home dose of Bumex 1 mg by mouth daily. Continue to monitor for now. 2. Left lower lobe pneumonia. Patient is currently on meropenem which should adequately cover for pneumonia and I have added vancomycin for gram-positive and methicillin-resistant Staphylococcus aureus (MRSA) coverage. 3. Acute discitis in T7 and T8 thoracic region. Methicillin-resistant Staphylococcus aureus (MRSA) screening is pending. Vancomycin has been prophylactically added to cover for possibility of Staphylococcus aureus causing discitis. 4. Hypertension. Continue current dose of amlodipine 2.5 mg by mouth daily, bisoprolol 10 mg by mouth daily. 5. Chronic diastolic congestive heart failure. Patient has been restarted on Bumex 1 mg by mouth daily. Volume status is optimal at this time. MTDD
[2020-07-01 12:00] VITALS: BP 144/67
[2020-07-01 12:47] LABS: PERCENT SATURATION 19.1 % (13.2-45.0)
--- NOTE | 2020-07-01 12:58 | IPN ---
DATE: 06/29/2020 SUBJECTIVE: Ritika seems to be better today. She has not had a fever. T-max yesterday was 102.9 and today temperature down to 98.4. She still complains of back pain, but it is mostly in the lumbar area. At times, she may get like shooting pains across her mid thoracic area. She states that she follows-up with Dr. Berg in [place] and she was having so much back and hip pain that he was going to schedule her for a lumbar MRI. Her cough is mostly nonproductive. No nausea, vomiting or diarrhea. LABORATORY DATA: White count 10.2, hemoglobin 9.2, hematocrit 29.3, platelets 214,000, 82% neutrophils, 7% lymphocytes, 7% monocytes. ESR 70. Sodium 141, potassium 4.1, chloride 109, bicarb 23, BUN 76, creatinine 2.82, glucose 218, calcium 7.1, magnesium 1.8. CRP 6.17. Blood cultures four sets have been negative from 06/25/2020 and 06/28/2020. Respiratory panel was negative. MRSA PCR was negative. IMAGING STUDIES: Chest CT showed a new left lower lobe pneumonia. PHYSICAL EXAMINATION: Temperature 98.4, pulse 78, respirations 20, blood pressure 140/76, oxygen saturation 94% on room air. HEART: Normal S1, S2. No murmurs appreciated. LUNGS: Diminished breath sounds at the left base with few crackles. No wheezes. Decreased air entry. ABDOMEN: Soft, nontender. No hepatosplenomegaly. BACK: Lumbosacral tenderness around L1, L2, L3, but no mid thoracic tenderness. IMPRESSION: 1. Hospital acquired pneumonia left lower lobe with negative MRSA PCR: Patient on Meropenem 1 gram I.V. every 12 hours. Vancomycin will be discontinued. 2. Abnormal thoracic MRI with findings consistent with possibility of T7, T8 discitis, although Gadolinium could not be given due to chronic kidney disease: CT scan was reviewed to previous CT scans done in 2019; there is similar although milder findings on the previous CT scan and therefore in the differential would be worsening osteomyelitis. PLAN: Will obtain MRI of the lumbosacral spine as most of her pain is in the lumbar area. Then we will discuss the case with Dr. Berg, her orthopedic surgeon in [facility], who wanted to have the lumbar MRI done as the patient has been having chronic pain and whether a biopsy of the thoracic spine will need to be done at some point once her pneumonia has improved and treated and she is off antibiotics to improve the yield of the bone biopsy, that will be discussed when the pneumonia improves. VICTOR HUGO
--- NOTE | 2020-07-01 13:10 | ECHO ---
LIMITED ECHOCARDIOGRAM DATE OF PROCEDURE: 06/28/2020 Gender: F Height: 150 cm Weight: 97 kg REFERRING PHYSICIAN: Betty Hernandez MD INDICATION: Vegetation This is a limited echocardiogram. No routine measurements were obtained. Patient is in sinus rhythm. Left ventricle is of normal systolic function, I estimated left ventricular ejection fraction (LVEF) 65-70%. No segmental wall motion abnormalities are appreciated. Right ventricle does not appear grossly enlarged. Most atria appear grossly normal. Aortic valve was poorly visualized. It is at least mildly sclerotic but I cannot comment on its mobility, or presence or absence of vegetations. Mitral valve also exhibited degenerative abnormalities with thickening of leaflets and presence of mitral annular calcifications but unfortunately resolution was so poor that I cannot comment much on its structure or mobility. No obvious vegetations were seen. Tricuspid valve appears normal. Pulmonic valve was not well seen. Doppler interrogation of aortic valve reveals no insufficiency and trivial stenosis with mean grade of 11 mmHg. Mitral valve is functionally competent. Trace tricuspid insufficiency is seen but quality of tricuspid regurgitation (TR) jet was not sufficient to estimate pulmonary artery pressure. CONCLUSIONS: 1. Study is of very limited technical quality, patient is in sinus rhythm. 2. Grossly preserved left ventricular (LV) systolic function. Diastolic function was not properly assessed. 3. Very poorly visualized aortic valve with presence of sclerosis resulting in minimal stenosis and no insufficiency. 4. Degenerative abnormalities of mitral valve with no stenosis or insufficiency. 5. Trace tricuspid insufficiency. 6. Unable to estimate central venous pressure and pulmonary artery pressure. 7. Compared to echocardiogram performed two months ago, the quality of today's study is substantially inferior but I do not visualize any distinct vegetations. [facility]
--- NOTE | 2020-07-01 13:12 | IPN ---
DATE: 06/30/2020 SUBJECTIVE: Patient was not present in the room today. She had gone to get her MRI done, however, her labs, vital and medications were reviewed by myself. OBJECTIVE: VITAL SIGNS: Temperature 98.7 degrees Fahrenheit, blood pressure 118/55, pulse 78, respiratory rate 18, saturating 92% on nasal cannula. She did have a fever spike early in the morning with a T-max of 101 degrees Fahrenheit. INTAKE AND OUTPUT: Urine output was 1.2 liters yesterday and 900 mL so far today since overnight. Weight in the bed scale is 103.4 kg. PHYSICAL EXAMINATION: Exam was not performed. LABORATORY REVIEW: CBC showed WBC 7.8, hemoglobin 8.8, platelets 203,000. BMP showed sodium 143, potassium 4, chloride 112, bicarbonate 23, BUN 82, creatinine 3; it was 2.8 yesterday. C-reactive protein 18.4, which is higher than yesterday. MICROBIOLOGY: All the cultures are pending so far. IMAGING STUDIES: A lumbar spine MRI was done today, which showed degenerative disc disease and spondylosis at L2 and L3 and there was moderate canal stenosis. CURRENT INPATIENT MEDICATIONS: Patient's medications were all reviewed by myself. She continues to be on I.V. Vancomycin and I.V. Meropenem. Bumex was stopped yesterday, however by the time it was stopped yesterday, she had already received her morning dose. Levemir dose has been changed to 33 units subcutaneously q.h.s. ASSESSMENT AND PLAN: 1. Acute kidney injury superimposed on chronic kidney disease: Patient was restarted on Bumex, however, her creatinine bumped up and she is also getting Vancomycin, so I stopped the Bumex yesterday. Continue to monitor for now. 2. Left lower lobe pneumonia and discitis: Patient is currently on Vancomycin and Meropenem. I see that infectious disease is already on board. The rest of the dosage and adjustment of antibiotics is as per ID recommendations. 3. Hypertension: Blood pressure is controlled with current dose of Amlodipine 10 mg p.o. daily and Bisoprolol 10 mg p.o. twice a day. 4. Chronic diastolic congestive heart failure: Volume status is optimal at this time. There is no evidence of edema. Home dose of Bumex has been stopped now because of rising creatinine. MTDD
--- NOTE | 2020-07-01 13:14 | IPN ---
DATE: 06/30/2020 SUBJECTIVE: Patient seen and examined at the bedside. Chart has been reviewed. She continues to complain of upper back pain as well as lower back pain. Remains febrile, 101, despite being on vancomycin and meropenem, both of which are renally dosed. Patient denies any upper or lower extremity weakness, paresthesias. She says that she does not feel well. No cough. No shortness of breath aside from baseline. Maximum temperature of 101, current temperature 98.7, pulse 78, respiratory rate 18, blood pressure 118/55, 92% on 2 liters nasal cannula. GENERAL: Awake, alert, oriented times three, answering questions appropriately. Anicteric sclerae. No jaundice. Moist mucous membranes. No jugular venous distention (JVD) or thyromegaly. LUNGS: Diminished but clear to auscultation. No wheezing or rales. HEART: S1, S2, sinus rhythm. No murmurs, rubs, or gallops. ABDOMEN: Obese, soft, nontender, nondistended. Positive bowel sounds. EXTREMITIES: Trace edema, bilateral lower extremities. Patient has tenderness around the T5-6 area as well as L3. Motor function is 5/5 times four extremities. LABORATORY DATA: White count 7.8, hemoglobin 8.8, hematocrit 28, platelet count 203. Sodium 143, potassium 4, chloride 112, bicarbonate 23, BUN 82, creatinine 3, glucose 159, calcium 7.5. C-reactive protein of 18.4. Lumbar spine MRI shows moderate central canal stenosis at L2-3 with moderate left neural foraminal narrowing. Shallow disc bulging around L3-4. MRI of the thoracic spine: Early discitis involving T7-8 discs. ASSESSMENT/PLAN: This is a 65-year-old female with a history of congestive heart failure, chronic obstructive pulmonary disease (COPD), diabetes, chronic kidney disease, stage III, hypertension, hyperlipidemia, chronic back pain with spinal stenosis and cervical fusion, admitted due to fevers, found to have a community-acquired pneumonia but remained febrile with complaints of back pain with MRI of the thoracic spine showing possible early discitis. Patient was diuresed for presumed congestive heart failure. Developed acute on chronic renal failure. Patient had echocardiogram, which showed no vegetations. Sputum culture for the pneumonia ordered. ID recommends ortho for biopsy if clinically worsens or persistent fevers. Ortho Dr. Hernandez was consulted. IR Dr. Baird, and Radiologist Dr. Corrales unable to perform biopsy. She is continued on Iv merem for pneumonia, and IV vanco. Once clinically improves, can change to po antibiotics,and fu w ID as outpt for repeat MRI thoracic spine. ID will decide as outpt if thoracic spine biopsy is still needed after pt has been off antibiotics. Diuretic held by nephrology due to worsening creatinine. PRN pain meds, PT/OT. Encourage ambulation. MTDD
[2020-07-01 16:00] VITALS: BP 144/76
[2020-07-01] MEDS: oxyCODONE 5MG TAB PO PRN ×2 (16:28→21:08)
[2020-07-01 20:00] VITALS: BP 154/70
[2020-07-01] MEDS: EZETIMIBE 10 MG TAB (ZETIA) PO SCH (21:07)
[2020-07-01] MEDS: ATORVASTATIN 20 MG TAB PO SCH (21:09)
[2020-07-02] VITALS: BP 145/65
[2020-07-02 04:00] VITALS: BP 158/84
[2020-07-02] MEDS: IPRATROPIUM 0.5MG/ALBUTEROL 2.5MG INH SOL UD 3ML (DUONEB) NEB SCH ×4 (04:33→20:00)
[2020-07-02 05:57] LABS: EOS # 0.4 10^3/uL (0.0-0.5); EOS % 7.4 % (0.0-3.0); HEMATOCRIT 26.3 % (36.0-47.0); LYMPH # 0.9 10^3/uL (1.5-5.0); LYMPH % 14.8 % (24.0-44.0); MEAN CORPUSCULAR HEMOGLOBIN 26.5 pg (27.0-33.0); MEAN CORPUSCULAR HGB CONC 30.4 g/dl (32.0-36.5); MEAN CORPUSCULAR VOLUME 87.1 fl (80.0-96.0); MONO # 0.7 10^3/uL (0.0-0.8); MONO % 11.2 % (0.0-5.0); NEUTROPHILS # 3.9 10^3/uL (1.5-8.5); NEUTROPHILS % 65.8 % (36.0-66.0); PLATELET COUNT, AUTOMATED 223 10^3/uL (150-450); RED BLOOD COUNT 3.02 10^6/uL (4.00-5.40)
[2020-07-02] MEDS: HEPARIN SOD (PORCINE) 5000UNITS/ML 1ML VIAL/SYRINGE SC SCH ×3 (06:23→22:00)
[2020-07-02] MEDS: SLF 3 ML SYR IV SCH ×3 (06:23→22:05)
[2020-07-02 06:33] LABS: CALCIUM LEVEL 7.7 MG/DL (8.8-10.2); CREATININE FOR GFR 2.71 MG/DL (0.55-1.30); GLOMERULAR FILTRATION RATE 18.7 (>45); MAGNESIUM LEVEL 2.1 MG/DL (1.8-2.4); POTASSIUM SERUM 4.6 MEQ/L (3.5-5.1); VANCOMYCIN RANDOM 16.7 UG/ML
[2020-07-02] MEDS: ADVAIR HFA 230/21MCG INHALER INH SCH ×2 (07:19→20:05)
[2020-07-02 08:00] VITALS: BP 152/80
[2020-07-02] MEDS ORDERED: VANCOMYCIN HCL 750 MG, VIAL MATE ADAPTER 1 EACH in D5W 250 ML IV ONE (08:00)
[2020-07-02] MEDS: MEROPENEM INJ 1 GM in IV 1 EA IV SCH (08:28)
[2020-07-02] MEDS: LEVEMIR (INSULIN DETEMIR) 1 UNITS/0.01ML SC SCH ×2 (08:29→22:04)
[2020-07-02] MEDS: HumaLOG INSULIN (NovoLOG) PER UNIT SC SCH ×4 (08:29→22:04)
[2020-07-02] MEDS: amLODIPine 10 MG TAB PO SCH (08:30)
[2020-07-02] MEDS: guaiFENesin ER 600 MG TAB PO SCH ×2 (08:30→22:00)
[2020-07-02] MEDS: GABAPENTIN 100 MG CAP PO SCH ×2 (08:30→22:00)
[2020-07-02] MEDS: bisoproloL fumarate 10 MG TAB PO SCH ×2 (08:30→22:01)
[2020-07-02] MEDS: ASPIRIN 81 MG ENTERIC TAB PO SCH (08:30)
[2020-07-02] MEDS: CALCITRIOL 0.25 MCG CAP (S0169) PO SCH (08:30)
[2020-07-02 08:45] LABS: C REACTIVE PROTEIN QUANTITATIV 6.99 MG/DL (0.00-0.30)
--- NOTE | 2020-07-02 09:45 | IPN ---
DATE: 07/01/2020 SUBJECTIVE: Patient was seen and examined at the bedside today morning. She is afebrile and hemodynamically stable. Her renal function is slightly better today as compared with yesterday. Patient is pretty upset about her ongoing situation including the discitis and the recommendations to possibly do a biopsy of the spine. She otherwise is currently getting I.V. antibiotics and reports pain and cough is getting better. OBJECTIVE: VITAL SIGNS: Temperature 98.2 degrees Fahrenheit, blood pressure 158/73, pulse 69, respiratory rate 18, saturating 96% on nasal cannula at 2 liters. INTAKE AND OUTPUT: Urine output recorded as 2 liters yesterday and 400 mL so far today since overnight. Weight in the bed scale is 103.4 kg. PHYSICAL EXAMINATION: GENERAL: Patient is awake, alert, oriented x3, laying in bed, in no apparent distress. HEAD AND NECK: Extraocular muscles intact. Pupils equally round and reactive to light. Mucous membranes are moist. Neck is supple. I could not appreciate the JVD. CARDIOVASCULAR: S1, S2, regular rate. No edema of the bilateral lower extremities. RESPIRATORY: Chest is clear to auscultation bilaterally. Bilateral equal air entry. No rales or rhonchi. ABDOMEN: Soft, obese, positive bowel sounds, nontender, no organomegaly. MUSCULOSKELETAL: No clubbing or cyanosis. Pulses are 2+. [employer]: No focal deficits. Power is 5/5 in all extremities. LABORATORY REVIEW: CBC showed WBC 4.9, hemoglobin 8.5, platelets 215,000. BMP showed sodium 145, potassium 4.3, chloride 115, bicarbonate 26, BUN 69, creatinine 2.8. Calcium 7.8. C-reactive protein 11.7, which is better than yesterday. MICROBIOLOGY: All the cultures are negative so far. CURRENT INPATIENT MEDICATIONS: Patient's medications were all reviewed by myself. She continues to be on Vancomycin and Meropenem at this time. Diuretics were stopped because of rise in creatinine. ASSESSMENT AND PLAN: 1. Acute kidney injury superimposed on chronic kidney disease: We had to stop her Bumex again because of rising creatinine. Right now, her creatinine is coming down to 2.8. Continue to monitor for improvement in the renal function. 2. Chronic diastolic congestive heart failure: Volume status is optimal. She will be monitored on a daily basis for any need for diuretics. 3. Left lower lobe pneumonia: Patient is currently on Meropenem and vancomycin. She is afebrile. Cough is getting better. Cultures are negative so far. 4. Acute discitis in T7 and T8 thoracic regions: Patient has had an MRI, she has been seen by infectious disease. Recommendations are to continue the antibiotics at this time. The rest of the management is as per infectious disease recommendations and orthopedic surgery. 5. Hypertension: Blood pressures are optimal at this time with current dose of Amlodipine and Bisoprolol. Diuretics are on hold as mentioned above. 6. Anemia and chronic kidney disease: Hemoglobin level is suboptimal. Check the iron levels and start her on p.o. iron if the levels are low. MTDD
--- NOTE | 2020-07-02 09:47 | IPN ---
DATE: 07/01/2020 SUBJECTIVE: Patient seen and examined at the bedside. Chart has been reviewed. She has had no fever for the past 24 hours. Denies any chills. Still complains of 5/10 pain in the upper back radiating across. No bilateral upper extremity weakness, paresthesias, or numbness. OBJECTIVE: PHYSICAL EXAMINATION: VITAL SIGNS: Temperature 98.2, pulse 69, respiratory rate 18, blood pressure 158/73, 96% on 2 liters nasal cannula. GENERAL: Patient is awake, alert, oriented times three, answering questions appropriately. No jugular venous distention (JVD). No thyromegaly. Patient has poor dentition, edentulous. LUNGS: Diminished. Crackles at bilateral bases. No wheezing. HEART: S1, S2, sinus rhythm. No murmurs, rubs, or gallops. ABDOMEN: Soft, nontender, nondistended. Positive bowel sounds. EXTREMITIES: No cyanosis or clubbing. Motor function is 5/5 times four extremities. MUSCULOSKELETAL: Patient has tenderness around T5-6 area. LABORATORY DATA: White count 4.9, hemoglobin 8.5, hematocrit 28, platelet count 215. Sedimentation rate greater than 140. C-reactive protein decreased to 11.7 from 18.4. Sodium 145, potassium 4.3, chloride 115, bicarbonate 26, BUN 69, creatinine 2.8, glucose 157. Microbiology: June 28, blood cultures negative. Respiratory panel June 25 negative. Two sets of blood cultures June 25 negative. IMAGING STUDIES: Right thyroid nodule. Lumbar spine: Moderate central canal stenosis. Diffuse disc bulging at L2-3. Thoracic spine MRI: T7-8 early discitis, possible osteomyelitis. ASSESSMENT AND PLAN: This is a 65-year-old female with a history of chronic kidney disease, stage III, congestive heart failure (CHF), preserved systolic function, chronic obstructive pulmonary disease (COPD), insulin-dependent diabetes, hypertension, hyperlipidemia, presented to the emergency room with complaints of shortness of breath and fever. Initially diureses for CHF exacerbation and treated for pneumonia and COPD exacerbation with recurrent fevers. Patient complained of back pain and was subsequently evaluated with thoracic MRI with possible early discitis. Has been kept on intravenous (IV) vancomycin, renally dosed, and meropenem. CURRENT ISSUES: 1. T7-[address] early discitis[address] Unlikely per Dr. Mercedes Godinez, but patient has had severe back pain and recurrent fevers. Therefore, she is currently on vancomycin and meropenem, both of which are renally dosed with normal white count. No recurrent fever for the past 24 hours. Despite elevated sedimentation rate from 124 to over 140 today, patient's C-reactive protein has decreased from 18 to 11.7. 2. Congestive heart failure with preserved systolic function, diastolic dysfunction, status post diuresis. Patient's diuretics have been held secondary to worsening creatinine. Currently is stage IV CKD. Nephrology has been consulted. Patient has no other electrolyte abnormalities. Does not have any hyperkalemia, fluid overload, or acid-base imbalance. Strict intake and output, daily weights. Continue daily creatinine monitoring. 3. Pneumonia, currently on meropenem. Blood cultures remain negative. Respiratory panel and COVID are negative. Patient is currently on 2 liters nasal cannula, saturating 93%-96%. 4. COPD, compensated. Patient was treated for possible COPD exacerbation with improvement. Currently on supplemental oxygen. Not on prednisone anymore. 5. Hypertension, controlled on Norvasc, bisoprolol. 6. Chronic pain, on gabapentin. Monitor for worsening hypercapnia. 7. Type 2 diabetes, uncontrolled with increase in Levemir to twice a day dosing at 18 units. Hold for glucose less than 180. 8. Deep venous thrombosis (DVT) prophylaxis with compression stockings. 9. Dyslipidemia, on chronic Lipitor and Zetia. 10. Diabetic neuropathy, on chronic Neurontin. PLAN: Per Dr. Godinez, since the patient has remained afebrile for 24 hours, continue with antibiotic treatment for pneumonia and transition to oral antibiotics, possibly Zyvox and Levaquin as outpatient due to history of penicillin allergy. She will re-evaluate with repeat MRI as outpatient and decide if thoracic spine biopsy is still necessary if persistent abnormality is noted and patient clinically worsens. At this time will discontinue the consult for orthopedic surgeon, Dr. Hiram Hernandez. No need for thoracic biopsy. [facility]
[2020-07-02] MEDS: ONDANSETRON 4MG/2ML VIAL IV SCH ×2 (10:00→16:00)
[2020-07-02] MEDS: ACETAMINOPHEN TAB 650MG DOSE (2X325MG) PO PRN (10:43)
[2020-07-02] MEDS: FERROUS GLUCONATE 324 MG TAB PO SCH (10:43)
--- NOTE | 2020-07-02 10:46 | REPVR ---
PROCEDURE INFORMATION: Exam: XR Abdomen, 1 View Exam date and time: 07/02/2020 9:07 AM Age: 65 years old Clinical indication: Nausea and vomiting; Additional info: Abd distention intractable nausea TECHNIQUE: Imaging protocol: XR of the abdomen. Views: Frontal supine view of the abdomen. 1 View. COMPARISON: MRI ABDOMEN WITHOUT CONTRAST 02/18/2018 4:56 PM FINDINGS: Gastrointestinal tract: Prominent stool, in a pattern of constipation. Prominent gastric air. Bones/joints: osteopenia and degenerative change. Bilateral hip arthroplasties. IMPRESSION: Prominent stool, in a pattern of constipation. Electronically signed by: Hiram Barajas On 07/02/2020 10:46:28 AM
[2020-07-02] MEDS: SENOKOT S TAB PO SCH ×2 (11:00→22:10)
--- NOTE | 2020-07-02 11:09 | IPNPDOC ---
Date Seen The patient was seen on 07/02/20. Progress Note SUBJECTIVE: Patient seen and examined at the bedside. Chart has been reviewed. c/o small loose stools and intractable nausea. no fever or chills. sob and cough improving. 3/10 back pain with pain meds. 7/10 pain once pain meds wear off. AXR: constipation. OBJECTIVE: PHYSICAL EXAMINATION: VITAL SIGNS: see below GENERAL: Patient is awake, alert, oriented times three, answering questions ap propriately.anicteric. no jaundice. No jugular venous distention (JVD). No thyromegaly. Patient has poor dentition, no use of respiratory accessory muscles LUNGS: Diminished. Crackles at bilateral bases. No wheezing or rales. AEBE. HEART: S1, S2, sinus rhythm. No murmurs, rubs, or gallops.nondisplaced PMI no cyanosis of extremities. ABDOMEN: Soft, nontender, nondistended. Positive bowel sounds. EXTREMITIES: No cyanosis or clubbing. Motor function is 5/5 times four extremities. MUSCULOSKELETAL: Patient has tenderness around T5-6 area. LABORATORY DATA: see below Microbiology: June 28, blood cultures negative. Respiratory panel negative. Two sets of blood cultures June 25 negative. IMAGING STUDIES: Right thyroid nodule. Lumbar spine: Moderate central canal stenosis. Diffuse disc bulging at L2-3. Thoracic spine MRI: T7-8 early discitis, possible osteomyelitis. ASSESSMENT AND PLAN: This is a 65-year-old female with a history of chronic kidney disease, stage III, congestive heart failure (CHF), preserved systolic function, chronic obstructive pulmonary disease (COPD), insulin-dependent diabetes, hypertension, hyperlipidemia, presented to the emergency room with complaints of shortness of breath and fever. Initially diureses for CHF exacerbation and treated for pneumonia and COPD exacerbation with recurrent fevers. Patient complained of back pain and was subsequently evaluated with thoracic MRI with possible early discitis. Has been kept on intravenous (IV) vancomycin, renally dosed, and meropenem. 1. T7-8 early discitis. possibly Zyvox and Levaquin as outpatient due to history of penicillin allergy. ID will re-evaluate as outpatient with repeat MRI thoracic spine and decide if thoracic spine biopsy is still necessary if persistent abnormality is noted and patient clinically worsens. At this time will discontinue the consult for orthopedic surgeon, Dr. Hiram Hernandez. No need for inpatient thoracic biopsy.Unlikely to be disciitis per Dr. Mercedes Godinez, but patient has had severe back pain and recurrent fevers. Therefore, she is currently on vancomycinand meropenem, both of which are renally dosed with normal white count. No recurrent fever for the past 48 hours. patient's C- reactive protein has decreased. 2. Congestive heart failure with preserved systolic function, diastolic dysfunction, status post diuresis. improving off diuretics, and does not seem to be fluid overloaded todaynephrology consulted and monitoring pt's improvement. will defer to Dr. Laurent for resumption of diuretics when clinically indicated. Strict intake and output, daily weights. Continue daily creatinine monitoring. 3. Pneumonia, currently on meropenem. Blood cultures remain negative. Respiratory panel and COVID are negative. Patient is currently on 2 liters nasalcannula, saturating 93%-96%. 4. COPD, compensated. Patient was treated for possible COPD exacerbation with improvement. Currently on supplemental oxygen. Not on prednisone. 5. Hypertension, controlled on Norvasc, bisoprolol. 6. Chronic pain, on gabapentin. Monitor for worsening hypercapnia. 7. Type 2 diabetes, uncontrolled with increase in Levemir to twice a day dosing at 18 units. Hold for glucose less than 180. 8. Deep venous thrombosis (DVT) prophylaxis with compression stockings. 9. Dyslipidemia, on chronic Lipitor and Zetia. 10. Diabetic neuropathy, on chronic Neurontin. 11. constipation. bowel regimen. pt c/o nausea and loose stools. AXR: constipation. disposition: defer duration of IV abx to Dr. Godinez, and when to change to po zyvox and levaquin. ARU screen. VS, I&O, 24H, [facility] Vital Signs/I&O Vital Signs Date Time Temp Pulse Resp B/P (MAP) Pulse Ox O2 Delivery O2 Flow Rate FiO2 07/02/20 08:00 97.6 69 18 152/80 (104) 93 Room Air 07/01/20 08:00 2.0 I&O- Last 24 Hours up to 6 AM 07/02/20 06:00 Intake Total 1035 ml Output Total 1800 ml Balance -765 ml Laboratory Data 24H LABS Laboratory Tests 2 07/01/20 11:11: Bedside Glucose (Misc Panel) 288H 07/01/20 16:58: Bedside Glucose (Misc Panel) 184H 07/01/20 20:47: Bedside Glucose (Misc Panel) 227H 07/02/20 05:47: Immature Granulocyte % (Auto) 0.8, Neutrophils (%) (Auto) 65.8, Lymphocytes (%) (Auto) 14.8L, Monocytes (%) (Auto) 11.2H, Eosinophils (%) (Auto) 7.4H, Basophils (%) (Auto) 0.0, Neutrophils # (Auto) 3.9, Lymphocytes # (Auto) 0.9L, Monocytes # (Auto) 0.7, Eosinophils # (Auto) 0.4, Basophils # (Auto) 0.0, Nucleated Red Blood Cells % (auto) 0.0, Anion Gap 7L, Glomerular Filtration Rate 18.7L, Calcium Level 7.7L, Magnesium Level 2.1, C-Reactive Protein, Quantitative 6.99H, Random Vancomycin Level 16.7 CBC/BMP Laboratory Tests 07/02/20 05:47 Microbiology Microbiology 06/28/20 Blood Culture - Preliminary, Resulted No Growth after 72 hours. All specime... 06/28/20 Blood Culture - Preliminary, Resulted No Growth after 72 hours. All specime... 06/25/20 Respiratory Virus Panel (PCR) ([facility]) - Final, Complete 06/25/20 Blood Culture - Final, Complete NO GROWTH AFTER 5 DAYS 06/25/20 Blood Culture - Final, Complete NO GROWTH AFTER 5 DAYS MARILYN JEFFRIES MD Jul 02, 2020 11:03
[2020-07-02 12:00] VITALS: BP 144/62
[2020-07-02] MEDS: MIRALAX *UNIT DOSE* 17GM PACKET PO SCH ×2 (13:58→22:10)
[2020-07-02] MEDS: ACETAMINOPHEN 500 MG TAB PO PRN (19:22)
[2020-07-02 20:00] VITALS: BP 150/80
[2020-07-02] MEDS: oxyCODONE 5MG TAB PO PRN (21:09)
[2020-07-02] MEDS ORDERED: IBUPROFEN 800 MG TAB PO PRN (21:15)
[2020-07-02] MEDS: EZETIMIBE 10 MG TAB (ZETIA) PO SCH (22:00)
[2020-07-02] MEDS: ATORVASTATIN 20 MG TAB PO SCH (22:01)
[2020-07-02 22:10] VITALS: BP 150/86
[2020-07-03] MEDS: oxyCODONE 5MG TAB PO PRN ×3 (00:53→13:42)
[2020-07-03] MEDS: ONDANSETRON 4 MG TAB PO SCH ×5 (00:53→23:44)
[2020-07-03] MEDS: IPRATROPIUM 0.5MG/ALBUTEROL 2.5MG INH SOL UD 3ML (DUONEB) NEB SCH ×4 (01:39→19:40)
[2020-07-03 04:00] VITALS: BP 138/64
[2020-07-03] MEDS ORDERED: MAALOX 30 ML SUSP *UDC PO PRN (04:15)
[2020-07-03 06:33] LABS: VANCOMYCIN RANDOM 16.5 UG/ML
[2020-07-03] MEDS: LevoFLOXacin 250 MG TABLET PO SCH (06:46)
[2020-07-03] MEDS: HEPARIN SOD (PORCINE) 5000UNITS/ML 1ML VIAL/SYRINGE SC SCH ×3 (06:47→21:06)
[2020-07-03] MEDS: SLF 3 ML SYR IV SCH ×3 (06:47→21:11)
[2020-07-03] MEDS: ADVAIR HFA 230/21MCG INHALER INH SCH ×2 (07:22→19:54)
[2020-07-03 08:00] VITALS: BP 125/62
[2020-07-03] MEDS ORDERED: VANCOMYCIN HCL 750 MG, VIAL MATE ADAPTER 1 EACH in D5W 250 ML IV ONE (08:00)
[2020-07-03] MEDS: GABAPENTIN 100 MG CAP PO SCH ×2 (08:27→21:05)
[2020-07-03] MEDS: guaiFENesin ER 600 MG TAB PO SCH ×2 (08:27→21:05)
[2020-07-03] MEDS: SENOKOT S TAB PO SCH ×2 (08:27→21:00)
[2020-07-03] MEDS: ASPIRIN 81 MG ENTERIC TAB PO SCH (08:27)
[2020-07-03] MEDS: FERROUS GLUCONATE 324 MG TAB PO SCH (08:27)
[2020-07-03] MEDS: amLODIPine 10 MG TAB PO SCH (08:28)
[2020-07-03] MEDS: bisoproloL fumarate 10 MG TAB PO SCH ×2 (08:29→21:08)
[2020-07-03] MEDS: MIRALAX *UNIT DOSE* 17GM PACKET PO SCH ×2 (08:29→21:00)
[2020-07-03] MEDS: HumaLOG INSULIN (NovoLOG) PER UNIT SC SCH ×4 (08:30→19:55)
[2020-07-03] MEDS: LEVEMIR (INSULIN DETEMIR) 1 UNITS/0.01ML SC SCH ×2 (08:30→21:06)
--- NOTE | 2020-07-03 08:38 | IPNPDOC ---
Date Seen The patient was seen on 07/03/20. Progress Note SUBJECTIVE: Patient is seen and examined at the bedside chart has been reviewed. Patient had a MAXIMUM TEMPERATURE of 101 yesterday was IV meropenem wa s discontinued. She is put on oral Levaquin. Patient complaining of mid back pain, rated at 5 out of 10 on pain scale alleviated by pain medications. No difficulty ambulating and passed physical therapy. Patient denies any cough chills. Denies any dysuria, urgency, frequency, shortness of breath. Kidney function is improving. Patient was found to be constipated yesterday given a karel wel regimen. She still complains of occasional loose stools. OBJECTIVE: PHYSICAL EXAMINATION: VITAL SIGNS: see below GENERAL: Patient is awake, alert, oriented times three, speaks in full sentences. No conversational dyspnea answering questions appropr iately.anicteric. no jaundice. No jugular venous distention (JVD). No thyromegaly. Patient has poor dentition LUNGS: Diminished. Crackles at bilateral bases. No wheezing or rales. AEBE, No use of accessory respiratory muscles HEART: S1, S2, sinus rhythm. No murmurs, rubs, or gallops.nondisplaced PMI no cyanosis of extremities. ABDOMEN: Soft, nontender, nondistended. Positive bowel sounds. , No hepatosplenomegaly EXTREMITIES: No cyanosis or clubbing. Motor function is 5/5 times four extremities. MUSCULOSKELETAL: Patient has tenderness around T5-6 area. Non-erythematous LABORATORY DATA: see below Microbiology: June 28, blood cultures negative. Respiratory panel negative. Two sets of blood cultures June 25 negative. IMAGING STUDIES: Right thyroid nodule. Lumbar spine: Moderate central canal stenosis. Diffuse disc bulging at L2-3. Thoracic spine MRI: T7-8 early discitis, possible osteomyelitis. ASSESSMENT AND PLAN: This is a 65-year-old female with a history of chronic kidney disease, stage III, congestive heart failure (CHF), preserved systolic function, chronic obstructive pulmonary disease (COPD), insulin-dependent diabetes, hypertension, hyperlipidemia, presented to the emergency room with complaints of shortness of breath and fever. Initially diureses for CHF exacerbation and treated for pneumonia and COPD exacerbation with recurrent fevers. Patient complained of back pain and was subsequently evaluated with thoracic MRI with possible early discitis. Has been kept on intravenous (IV) vancomycin, renally dosed, and meropenem. 1. T7-8 early discitis. possibly Zyvox and Levaquin as outpatient due to history of penicillin allergy. ID will re-evaluate as outpatient with repeat MRI thoracic spine and decide if thoracic spine biopsy is still necessary if persistent abnormality is noted and patient clinically worsens. At this time will discontinue the consult for orthopedic surgeon, Dr. Hiram Hernandez. No need for inpatient thoracic biopsy.Unlikely to be disciitis per Dr. Mercedes Godinez, but patient has had severe back pain and recurrent fevers. Therefore, she is currently on vancomycin, and po levaquin per infectious disease recommendations. Both of which are renally dosed with normal white count. Patient had a fever 101 yesterday, 07/02/2020 off of IV meropenem. We'll continue to monitor CRP and sedimentation rate, and may need to be put back on intravenous gram-negative coverage if persistent fevers occur. She otherwise has no other infectious complaints. Denies any cough, chills, dysuria, urgency, frequency. 2. Congestive heart failure with preserved systolic function, diastolic dysfunction, status post diuresis. improving off diuretics, and does not seem to be fluid overloaded today. . She denies any shortness of breath or dyspnea on exertion. She is able to ambulate from the bed to the bathroom without any shortness of breath. She has passed home safety evaluation by physical therapy. Her ambulation is only limited by pain in her upper back which is better with pain medications .nephrology consulted and monitoring pt's improvement. will defer to Dr. Laurent for resumption of diuretics when clinically indicated. Strict intake and output, daily weights. Continue daily creatinine monitoring. 3. Pneumonia, currently on meropenem. Blood cultures remain negative. Respiratory panel and COVID are negative. Patient is currently on 2 liters nasalcannula, saturating 93%-96%. 4. COPD, compensated. Patient was treated for possible COPD exacerbation with improvement. Currently on supplemental oxygen. Not on prednisone. 5. Hypertension, controlled on Norvasc, bisoprolol. 6. Chronic pain, on gabapentin. Monitor for worsening hypercapnia. 7. Type 2 diabetes, uncontrolled with increase in Levemir to twice a day dosing at 18 units. Hold for glucose less than 180. 8. Deep venous thrombosis (DVT) prophylaxis with compression stockings. 9. Dyslipidemia, on chronic Lipitor and Zetia. 10. Diabetic neuropathy, on chronic Neurontin. 11. constipation. bowel regimen. pt c/o nausea and loose stools. AXR: constipation. 12. . Acute on chronic kidney disease stage IV, baseline is stage III. Patient is kept on strict I's and O's, daily weights and daily creatinine and GFR monitoring reagent tender, Dr. Johnson has been consulted and has held off on the diuretics due to worsening kidney function. Patient does not appear to be fluid overloaded. Denies any dyspnea at rest or with exertion appears to be euvolemic. Continue to monitor for shortness of breath. disposition: Patient had a fever of 101 on 07/02/2020 off of IV meropenem. Currently on oral Levaquin. I am uncertain whether infectious disease will need to resume intravenous antibiotics due to recurrent fevers. Will recheck repeat blood test to rule out bacteremia.We May need an echocardiogram if bacteremia is confirmed to rule out endocarditis. We'll await clinical improvement and defervescence. Prior to deciding on a discharge date. [facility] Vital Signs Date Time Temp Pulse Resp B/P (MAP) Pulse Ox O2 Delivery O2 Flow Rate FiO2 07/03/20 08:00 96.6 57 18 125/62 (83) 94 Room Air 07/01/20 08:00 2.0 I&O- Last 24 Hours up to 6 AM 07/03/20 06:00 Intake Total 745 ml Output Total 1000 ml Balance -255 ml Laboratory Data 24H LABS Laboratory Tests 2 07/02/20 12:39: Bedside Glucose (Misc Panel) 224H 07/02/20 16:49: Bedside Glucose (Misc Panel) 199H 07/02/20 21:29: Bedside Glucose (Misc Panel) 264H 07/03/20 05:36: Random Vancomycin Level 16.5 07/03/20 07:59: Bedside Glucose (Misc Panel) 239H Microbiology Microbiology 06/28/20 Blood Culture - Final, Complete NO GROWTH AFTER 5 DAYS 06/28/20 Blood Culture - Final, Complete NO GROWTH AFTER 5 DAYS 06/25/20 Respiratory Virus Panel (PCR) ([facility]) - Final, Complete 06/25/20 Blood Culture - Final, Complete NO GROWTH AFTER 5 DAYS 06/25/20 Blood Culture - Final, Complete NO GROWTH AFTER 5 DAYS MARILYN JEFFRIES MD Jul 03, 2020 08:38
[2020-07-03 09:06] LABS: BASO % 0.4 % (0.0-1.0); EOS # 0.6 10^3/uL (0.0-0.5); EOS % 8.3 % (0.0-3.0); HEMATOCRIT 26.7 % (36.0-47.0); LYMPH # 0.9 10^3/uL (1.5-5.0); LYMPH % 12.2 % (24.0-44.0); MEAN CORPUSCULAR HEMOGLOBIN 26.8 pg (27.0-33.0); MEAN CORPUSCULAR VOLUME 89.3 fl (80.0-96.0); MONO # 0.7 10^3/uL (0.0-0.8); MONO % 9.5 % (0.0-5.0); NEUTROPHILS # 5.1 10^3/uL (1.5-8.5); NEUTROPHILS % 68.4 % (36.0-66.0); PLATELET COUNT, AUTOMATED 224 10^3/uL (150-450); RED BLOOD COUNT 2.99 10^6/uL (4.00-5.40); WHITE BLOOD COUNT 7.4 10^3/uL (4.0-10.0)
[2020-07-03 09:09] LABS: C REACTIVE PROTEIN QUANTITATIV 6.84 MG/DL (0.00-0.30); CALCIUM LEVEL 7.7 MG/DL (8.8-10.2); CREATININE FOR GFR 2.79 MG/DL (0.55-1.30); GLOMERULAR FILTRATION RATE 18.1 (>45); POTASSIUM SERUM 5.1 MEQ/L (3.5-5.1)
[2020-07-03 09:38] LABS: ERYTHROCYTE SEDIMENTATION RATE 109 mm/hr (0-30)
[2020-07-03 16:00] VITALS: BP 130/80
[2020-07-03] MEDS: ACETAMINOPHEN 500 MG TAB PO PRN (18:12)
[2020-07-03 20:00] VITALS: BP 140/58
[2020-07-03] MEDS: ATORVASTATIN 20 MG TAB PO SCH (21:05)
[2020-07-03] MEDS: EZETIMIBE 10 MG TAB (ZETIA) PO SCH (21:05)
[2020-07-03] MEDS: LINEZOLID 600MG TABLET (ZYVOX) PO SCH (21:05)
[2020-07-04] VITALS (9 sets, daily range): BP systolic 123–150; BP diastolic 58–70; O2SAT 90–93
[2020-07-04] MEDS: IPRATROPIUM 0.5MG/ALBUTEROL 2.5MG INH SOL UD 3ML (DUONEB) NEB SCH ×4 (02:00→19:35)
[2020-07-04] MEDS: LevoFLOXacin 250 MG TABLET PO SCH (04:50)
[2020-07-04] MEDS: ONDANSETRON 4 MG TAB PO SCH ×3 (04:50→17:10)
[2020-07-04] MEDS: HEPARIN SOD (PORCINE) 5000UNITS/ML 1ML VIAL/SYRINGE SC SCH ×3 (04:50→21:36)
[2020-07-04 05:10] LABS: HEMATOCRIT 24.9 % (36.0-47.0); HEMOGLOBIN 7.5 g/dl (12.0-15.5); MEAN CORPUSCULAR HEMOGLOBIN 26.4 pg (27.0-33.0); MEAN CORPUSCULAR HGB CONC 30.1 g/dl (32.0-36.5); MEAN CORPUSCULAR VOLUME 87.7 fl (80.0-96.0); PLATELET COUNT, AUTOMATED 232 10^3/uL (150-450); RED BLOOD COUNT 2.84 10^6/uL (4.00-5.40)
[2020-07-04] MEDS: SLF 3 ML SYR IV SCH ×4 (05:13→21:36)
[2020-07-04 05:31] LABS: C REACTIVE PROTEIN QUANTITATIV 10.5 MG/DL (0.00-0.30); CALCIUM LEVEL 7.8 MG/DL (8.8-10.2); CREATININE FOR GFR 3.2 MG/DL (0.55-1.30); GLOMERULAR FILTRATION RATE 15.5 (>45); POTASSIUM SERUM 5.2 MEQ/L (3.5-5.1)
[2020-07-04] MEDS: ADVAIR HFA 230/21MCG INHALER INH SCH ×2 (07:29→19:35)
[2020-07-04] MEDS: MIRALAX *UNIT DOSE* 17GM PACKET PO SCH ×2 (08:29→21:24)
[2020-07-04] MEDS: SENOKOT S TAB PO SCH ×2 (08:30→21:25)
[2020-07-04] MEDS: ASPIRIN 81 MG ENTERIC TAB PO SCH (08:30)
[2020-07-04] MEDS: guaiFENesin ER 600 MG TAB PO SCH ×2 (08:30→21:26)
[2020-07-04] MEDS: GABAPENTIN 100 MG CAP PO SCH ×2 (08:30→21:26)
[2020-07-04] MEDS: LINEZOLID 600MG TABLET (ZYVOX) PO SCH ×2 (08:30→21:25)
[2020-07-04] MEDS: FERROUS GLUCONATE 324 MG TAB PO SCH (08:30)
[2020-07-04] MEDS: bisoproloL fumarate 10 MG TAB PO SCH ×2 (08:31→21:28)
[2020-07-04] MEDS: amLODIPine 10 MG TAB PO SCH (08:31)
[2020-07-04] MEDS: HumaLOG INSULIN (NovoLOG) PER UNIT SC SCH ×4 (08:31→21:00)
[2020-07-04] MEDS: LEVEMIR (INSULIN DETEMIR) 1 UNITS/0.01ML SC SCH ×2 (08:31→21:28)
[2020-07-04] MEDS: ACETAMINOPHEN 500 MG TAB PO PRN (08:32)
[2020-07-04] MEDS ORDERED: VANCOMYCIN HCL 750 MG, VIAL MATE ADAPTER 1 EACH in D5W 250 ML IV SCH (09:00)
--- NOTE | 2020-07-04 09:13 | IPNPDOC ---
Date Seen The patient was seen on 07/04/20. Progress Note SUBJECTIVE: Patient was seen and examined at the bedside chart has been reviewed per nursing patient's pain has been controlled. She is ambulating well around the room and into the bathroom without any difficulty. Patient has had no fevers for the past 48 hours. Last scarlet fever was 101 on 07/02/2020 patient is currently on oral antibiotics with Levaquin and Zyvox. She still complains of discomfort 5 out of 10 and a pain scale today but did not want to take any pain medications. She's currently having breakfast, tolerating her diet. She has no shortness of breath, chest pain, pressure, tightness or dyspnea on exertion. She says she still has an occasional cough but usually without any sputum production, or very scant white sputum. She denies any dysuria, urgency, frequency. No other new complaints. She has no neurological symptoms. Denies bilateral upper or lower extremity numbness, tingling sensation or other paresthesias. OBJECTIVE: PHYSICAL EXAMINATION: VITAL SIGNS: see below GENERAL: Patient is awake, alert, oriented times three, speaks in full sentences. No conversational dyspnea answering questions appropriately.anicteric. no jaundice. Patient has poor dentition., No respiratory distress, appears her stated age HEENT: No jugular venous distention (JVD). No thyromegaly., No cervical lymphadenopathy. Moist mucous membranes LUNGS: Diminished. No wheezing or rales. AEBE, No use of accessory respiratory muscles HEART: S1, S2, regular rate and rhythm No murmurs, rubs, or gallops.nondisplaced PMI no cyanosis of extremities. ABDOMEN: Soft, nontender, nondistended. Positive bowel sounds 4 quadrants , No hepatosplenomegaly EXTREMITIES: No cyanosis or clubbing. Motor function is 5/5 times four extremities. MUSCULOSKELETAL: Patient has tenderness around T5-6 area. Non-erythematous LABORATORY DATA: see below Microbiology: June 28, blood cultures negative. Respiratory panel negative. Two sets of blood cultures June 25 negative. IMAGING STUDIES: Right thyroid nodule. Lumbar spine: Moderate central canal stenosis. Diffuse disc bulging at L2-3. Thoracic spine MRI: T7-8 early discitis, possible osteomyelitis. ASSESSMENT AND PLAN: This is a 65-year-old female with a history of chronic kidney disease, stage III, congestive heart failure (CHF), preserved systolic function, chronic obstructive pulmonary disease (COPD), insulin-dependent diabetes, hypertension, hyperlipidemia, presented to the emergency room with complaints of shortness of breath and fever. Initially diureses for CHF exacerbation and treated for pneumonia and COPD exacerbation with recurrent fevers. Patient complained of back pain and was subsequently evaluated with thoracic MRI with possible early discitis. Has been kept on intravenous (IV) vancomycin, renally dosed, and meropenem. 1. T7-8 early discitis. The patient still complains of 5 out of 10 pain on a pain scale at the upper back tolerable and not wanting any pain medications this morning. Patient has passed home safety evaluation. She was on vancomycin and meropenem, which have both been discontinued. Currently on by mouth Levaquin. Zyvox was added due to a fever 101 on 07/02/2020. She has had no fever for 48 hours now on white count is normal, will defer to infectious disease specialist on Sunday whether we should continue patient on Zyvox as outpatient. The overall plan was to repeat the MRI of the thoracic spine and determine the need for biopsy for cultures and sensitivity. Patient will be referred out to Dr. Alisha Godinez who recommended completion of antibiotics. Patient will then be off antibiotics and will be rescanned with an MRI of the thoracic spine. If persistent concerns for discitis or osteomyelitis. She will be referred to orthopedic spine surgeon, Dr. Hiram Hernandez for biopsy. This will all be done as outpatient 2. Congestive heart failure with preserved systolic function, diastolic dysfunction, status post diuresis. improving off diuretics, and does not seem to be fluid overloaded today. Patient is saturating well on 2 L nasal cannula, which is baseline. We'll defer to bulb brander, Ama De Jesus whether patient's diuretic should be resumed. We're currently monitoring strict I's and O's, daily weights as well as daily creatinine and GFR. She remains a stage III renal failure. 3. Pneumonia, status post vancomycin and IV meropenem. Currently on renally dosed Levaquin due to fever of 101 on 07/02/2020. Zyvox was also added Blood cultures remain negative. Respiratory panel and COVID are negative. Patient is currently on 2 liters nasalcannula, saturating 93%-96%. Defer to infectious disease specialist on Sunday whether Zyvox should be discontinued 4. COPD, compensated. Patient was treated for possible COPD exacerbation with improvement. Currently on supplemental oxygen. Not on prednisone. 5. Hypertension, controlled on Norvasc, bisoprolol. 6. Chronic pain, on gabapentin. Monitored for worsening hypercapnia. 7. Type 2 diabetes, uncontrolled with increase in Levemir to twice a day dosing at 18 units. Hold for glucose less than 180. 8. Deep venous thrombosis (DVT) prophylaxis with compression stockings. 9. Dyslipidemia, on chronic Lipitor and Zetia. 10. Diabetic neuropathy, on chronic Neurontin. 11. constipation. bowel regimen. pt c/o nausea and loose stools. AXR: constipation. 12. . Acute on chronic kidney disease stage IV, baseline is stage III. Patient is kept on strict I's and O's, daily weights and daily creatinine and GFR monitoring bulb brander, has been consulted and has held off on the diuretics due to worsening kidney function. Patient does not appear to be fluid overloaded. Denies any dyspnea at rest or with exertion appears to be euvolemic. Continue to monitor for shortness of breath. Will defer to bulb brander regarding timing of diuretics. Patient currently remains a stage IV but does not appear to be oliguric. No signs of hyperkalemia, fluid overload or metabolic acidosis disposition: Awaiting further recommendations from infectious disease to decide whether Zyvox should be continued are only oral Levaquin. Also awaiting whether nephrology. Will resume patient's diuretic and monitor for 24 hours prior to discharge home. Discharge 1-2 days. She has been cleared by physical therapy, but will need to finalize recommendations from both infectious disease and bulb brander. VS, I&O, 24H, [facility] Vital Signs/I&O Vital Signs Date Time Temp Pulse Resp B/P (MAP) Pulse Ox O2 Delivery O2 Flow Rate FiO2 07/04/20 08:31 70 132/63 07/04/20 07:56 97.5 20 92 Nasal Cannula 1.0 I&O- Last 24 Hours up to 6 AM 07/04/20 06:00 Intake Total 820 ml Output Total 1150 ml Balance -330 ml Laboratory Data 24H LABS Laboratory Tests 2 07/03/20 11:45: Bedside Glucose (Misc Panel) 214H 07/03/20 17:01: Bedside Glucose (Misc Panel) 148H 07/03/20 19:23: Bedside Glucose (Misc Panel) 198H 07/04/20 04:56: Nucleated Red Blood Cells % (auto) 0.0, Anion Gap 5L, Glomerular Filtration Rate 15.5L, Calcium Level 7.8L, C-Reactive Protein, Quantitative 10.50H CBC/BMP Laboratory Tests 07/04/20 04:56 Microbiology Microbiology 07/03/20 Blood Culture, Received Pending 07/03/20 Blood Culture, Received Pending 06/28/20 Blood Culture - Final, Complete NO GROWTH AFTER 5 DAYS 06/28/20 Blood Culture - Final, Complete NO GROWTH AFTER 5 DAYS 06/25/20 Respiratory Virus Panel (PCR) ([facility]) - Final, Complete 06/25/20 Blood Culture - Final, Complete NO GROWTH AFTER 5 DAYS 06/25/20 Blood Culture - Final, Complete NO GROWTH AFTER 5 DAYS MARILYN JEFFRIES MD Jul 04, 2020 09:13
[2020-07-04 11:50] LABS: ERYTHROCYTE SEDIMENTATION RATE 126 mm/hr (0-30)
[2020-07-04] MEDS ORDERED: DARBEPOETIN 200MCG/0.4ML *NON-DIALYSIS* SYRINGE (J0881 PER 1MCG) SC SCH (12:00)
[2020-07-04] MEDS ORDERED: BUMETANIDE 1 MG TAB PO SCH (12:00)
[2020-07-04] MEDS ORDERED: FERRIC CARBOXYMALTOSE INJ 750 MG in NS 250 ML IV ONE (13:00)
[2020-07-04] MEDS: ATORVASTATIN 20 MG TAB PO SCH (21:24)
[2020-07-04] MEDS: EZETIMIBE 10 MG TAB (ZETIA) PO SCH (21:27)
[2020-07-05] MEDS: ONDANSETRON 4 MG TAB PO SCH ×3 (00:16→11:49)
[2020-07-05] MEDS: IPRATROPIUM 0.5MG/ALBUTEROL 2.5MG INH SOL UD 3ML (DUONEB) NEB SCH ×3 (01:09→14:11)
[2020-07-05] MEDS: ACETAMINOPHEN TAB 650MG DOSE (2X325MG) PO PRN (02:00)
[2020-07-05 04:17] LABS: HEMATOCRIT 24.3 % (36.0-47.0); HEMOGLOBIN 7.4 g/dl (12.0-15.5); MEAN CORPUSCULAR HEMOGLOBIN 26.7 pg (27.0-33.0); MEAN CORPUSCULAR HGB CONC 30.5 g/dl (32.0-36.5); MEAN CORPUSCULAR VOLUME 87.7 fl (80.0-96.0); PLATELET COUNT, AUTOMATED 228 10^3/uL (150-450); RED BLOOD COUNT 2.77 10^6/uL (4.00-5.40); WHITE BLOOD COUNT 12.3 10^3/uL (4.0-10.0)
[2020-07-05 04:49] LABS: C REACTIVE PROTEIN QUANTITATIV 11.1 MG/DL (0.00-0.30); CALCIUM LEVEL 7.8 MG/DL (8.8-10.2); CREATININE FOR GFR 3.59 MG/DL (0.55-1.30); GLOMERULAR FILTRATION RATE 13.6 (>45); POTASSIUM SERUM 5.6 MEQ/L (3.5-5.1)
[2020-07-05 04:54] LABS: ERYTHROCYTE SEDIMENTATION RATE 128 mm/hr (0-30)
[2020-07-05] MEDS: HEPARIN SOD (PORCINE) 5000UNITS/ML 1ML VIAL/SYRINGE SC SCH ×2 (05:12→14:05)
[2020-07-05] MEDS: LevoFLOXacin 250 MG TABLET PO SCH (05:13)
[2020-07-05] MEDS: SLF 3 ML SYR IV SCH ×2 (05:13→14:05)
[2020-07-05 06:00] VITALS: BP 120/8
[2020-07-05] MEDS: ADVAIR HFA 230/21MCG INHALER INH SCH (07:18)
[2020-07-05] MEDS: bisoproloL fumarate 10 MG TAB PO SCH (08:36)
[2020-07-05] MEDS: LEVEMIR (INSULIN DETEMIR) 1 UNITS/0.01ML SC SCH (08:36)
[2020-07-05 08:37] VITALS: BP 131/67
[2020-07-05] MEDS: GABAPENTIN 100 MG CAP PO SCH (08:37)
[2020-07-05] MEDS: amLODIPine 10 MG TAB PO SCH (08:37)
[2020-07-05] MEDS: HumaLOG INSULIN (NovoLOG) PER UNIT SC SCH ×2 (08:37→11:50)
[2020-07-05] MEDS: CALCITRIOL 0.25 MCG CAP (S0169) PO SCH (08:38)
[2020-07-05] MEDS: FERROUS GLUCONATE 324 MG TAB PO SCH (08:38)
[2020-07-05] MEDS: guaiFENesin ER 600 MG TAB PO SCH (08:38)
[2020-07-05] MEDS: ASPIRIN 81 MG ENTERIC TAB PO SCH (08:38)
[2020-07-05] MEDS: SENOKOT S TAB PO SCH (08:39)
[2020-07-05] MEDS: MIRALAX *UNIT DOSE* 17GM PACKET PO SCH (08:39)
--- NOTE | 2020-07-05 09:17 | IPN ---
INFECTIOUS DISEASE PROGRESS NOTE DATE: 07/01/2020 SUBJECTIVE: Ritika was upset this afternoon because she felt she was getting mixed messages between having a disk space biopsy and where she was going to get it done and the timing of it. The patient was relaying information to Dr. Daniels that she would like a neurosurgeon to do the biopsy if needed. She states her cough has improved. She has had no nausea or vomiting. She has soft stools. She is currently on meropenem 1 gram IV every 12 hours and vancomycin renally dosed. She has mostly a nonproductive cough. Her last temperature was 101 on 06/30/2020. She has been afebrile today. She has mild shortness of breath at baseline. LABS: White count 4.9, down from 12.6. Hemoglobin 8.5, hematocrit 28, platelets 215, 65% neutrophils, 15% lymphocytes, 11% monocytes. ESR more than 140. Sodium 145, potassium 4.3, chloride 115, bicarb 26, BUN 69, creatinine 2.88, glucose 157, calcium 7.8, magnesium 2, CRP 11.7 Iron 34, TIBC 204, ferritin 1827. Blood cultures, four sets were negative. IMPRESSION: 1. Hospital-acquired pneumonia on IV meropenem and vancomycin, doing better. Fever has resolved; white count is normal; CPR is improving. 2. Abnormal thoracic MRI with T7-T8 findings, possibly with early diskitis versus severe advanced form of osteoarthritis. Case has been discussed with Dr. Corrales. 3. Congestive heart failure, stable. PLAN: Continue IV meropenem and vancomycin. At this point, I would treat her for at least seven days of antibiotics for pneumonia. I would suggest not doing any biopsy until she is off antibiotics to increase yield g getting pathogen regarding the thoracic finding of T7-T8 possibly diskitis. Hopefully, this could be done under CT guided biopsy because an open biopsy is too risky for this patient. We will discuss the case with Dr. Baird tomorrow to see if she could do this biopsy; otherwise, she will be referred to [facility] for further follow up. Patient is agreeable with the plan, and the case has been discussed with Dr. Daniels. [facility]
--- NOTE | 2020-07-05 09:19 | IPN ---
INFECTIOUS DISEASE PROGRESS NOTE DATE: 07/02/2020 SUBJECTIVE: Ritika seems to be doing a little better every day. She still has spasms of hacking cough, which are mostly nonproductive. Her shortness of breath has improved, but she tried to get to the door of her bedroom and back and got very short of breath. She has no nausea, vomiting or diarrhea. She has no significant mid thoracic back pain, but mostly lumbar back pain. LABORATORY DATA: White count 6, hemoglobin 8, hematocrit 26.3, platelets 223,000, 66% neutrophils, 15% lymphocytes, 11% monocytes, 7% eosinophils. Sodium 141, potassium 4.6, chloride 112, bicarb 22, BUN 71, creatinine 2.71, glucose 242, calcium 7.7. Magnesium 2.1. CRP 6.99 down from 18. Blood cultures four sets are negative. MRSA screen is negative. MEDICATIONS: Meropenem 1 gram I.V. every 12 hours; day #5 with I.V. Vancomycin. PHYSICAL EXAMINATION: VITALS: Temperature 97.8, pulse 70, respirations 18, blood pressure 144/62, O2 sat 90 to 93% on room air. HEART: Normal S1, S2, no murmurs were appreciated. LUNGS: Crackles at the left base about a third up. ABDOMEN: Obese, soft, nontender. EXTREMITIES: Trace edema. BACK: Mild lumbosacral tenderness with no thoracic tenderness. IMPRESSION: 1. Hospital acquired pneumonia on I.V. Vancomycin and Meropenem, clinically better. Patient will be switched to oral Levaquin 250 mg daily for another five days. 2. Abnormal thoracic spine MRI with a questionable discitis, although clinically the patient does not have point tenderness at the thoracic spine. She describes some shooting pains that are intermittent in both flank areas. I reviewed the MRI with Dr. Corrales . This will addressed once her pneumonia has improved. The patient does not want a biopsy done except by neurosurgery, if needed to be. I did advise her that I would recommend finishing her antibiotics for pneumonia before we do a biopsy, if back pain persists as the yield would be very low with broad spectrum antibiotics. PLAN: Discontinue I.V. Vancomycin and Meropenem and switched to Levaquin 250 mg p.o. daily for five days. If she clinically continues to improve, patient could be discharged home tomorrow. Patient needs to follow-up at the infectious disease clinic in 7 to 10 days. MTDD
--- NOTE | 2020-07-05 09:20 | IPN ---
DATE: 07/03/2020 SUBJECTIVE: Patient was seen and examined at the bedside today morning. She reports that she had fever spikes again. T-max was 101 degrees Fahrenheit last night. She otherwise denies any fever or chills at this time. She is currently on oral antibiotics. Her renal function is stable since yesterday. She denies any shortness of breath or lower extremity edema. OBJECTIVE: VITAL SIGNS: Temperature 96.6 degrees Fahrenheit; T-max 101 degrees Fahrenheit last night at 8:00. Blood pressure 125/62, pulse 57, respiratory rate 18, saturating 94% on room air. INTAKE AND OUTPUT: Urine output recorded as 1300 mL yesterday and 300 mL so far today since overnight. Weight in the bed scale is 102.9 kg, which is stable since yesterday. PHYSICAL EXAMINATION: GENERAL: Patient is awake, alert, oriented x3, lying in bed, in no apparent distress. HEAD AND NECK: Extraocular muscles intact. Pupils equally round and reactive to light. Mucous membranes are moist. Neck is supple. There is no JVD. CARDIOVASCULAR: S1, S2, regular rate. No edema of the bilateral lower extremities. RESPIRATORY: Chest is clear to auscultation bilaterally in the upper lung zones. On the left lower lobe, there are some crepitations on deep inspiration. ABDOMEN: Soft, obese, positive bowel sounds, nontender. No organomegaly. MUSCULOSKELETAL: No clubbing or cyanosis. Pulses are 2+. 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 Power is 5/5 in all extremities. LABORATORY REVIEW: CBC showed WBC 7.4, hemoglobin 8, platelets 224,000. BMP showed sodium 141, potassium 5.1, chloride 113, bicarb 22, BUN 71, creatinine 2.7; it was 2.7 yesterday as well. MICROBIOLOGY: Repeat blood cultures were sent yesterday; report is still pending. CURRENT INPATIENT MEDICATIONS: Patient's medications were all reviewed by myself. I.V. Meropenem has been stopped. She continues to be on I.V. Vancomycin. She was started on Levaquin 250 mg p.o. daily starting today morning. ASSESSMENT AND PLAN: 1. Acute kidney injury superimposed on chronic kidney disease: Patient's creatinine has been staying stable at 2.7, which is close to her baseline. Volume status is optimized. Electrolytes are within the acceptable range. 2. Chronic diastolic congestive heart failure: Patient has not received diuretic in the last few days. She is evaluated on a daily basis for any p.r.n. Bumex or Lasix. 3. Left lower lobe pneumonia: I.V. Meropenem has been stopped, patient is currently on oral Levaquin. 4. Acute discitis in T7 and T8: Patient continues to be on I.V. Vancomycin. She was febrile last night as well. Repeat cultures have been sent; result is pending. 5. Hypertension: Continue current dose of Amlodipine and Bisoprolol. Blood pressures are controlled. 6. Iron deficiency anemia: Patient has been started on oral iron. She cannot be given I.V. iron at this time because of pneumonia and discitis. MTDD
--- NOTE | 2020-07-05 09:23 | IPN ---
DATE: 07/04/2020 SUBJECTIVE: Patient was seen and examined at the bedside today morning. She was slightly frustrated and tearful in the morning. Patient had back pain at nighttime and she was given a higher dose of Ibuprofen 800 mg p.o. and because of that, I see a slight bump in the creatinine and bump in her potassium level. Her antibiotics have been switched to oral Levaquin and oral Zyvox. OBJECTIVE: VITAL SIGNS: Temperature 97.5 degrees Fahrenheit, blood pressure 132/63, pulse 70, respiratory rate 20, saturating 92% on nasal cannula at 1 liter. INTAKE AND OUTPUT: Urine output recorded as 1.2 liter yesterday and 200 mL so far today since overnight. Weight in the bed scale is 103.3 kg, which is higher than her weight yesterday and her weight is persistently rising for the last four days. PHYSICAL EXAMINATION: GENERAL: Patient is awake, alert, oriented x3, sitting up in the sofa, in no apparent distress. HEAD AND NECK: Extraocular muscles intact. Pupils equally round and reactive to light. Mucous membranes are moist. Neck is supple. There is mildly elevated JVD. CARDIOVASCULAR: S1, S2, regular rate. 1+ edema of the bilateral lower extremities. RESPIRATORY: Mildly decreased breath sounds at the bases with mild inspiratory crackles at the bases bilaterally on deep inspiration. ABDOMEN: Soft, obese, positive bowel sounds, nontender. No organomegaly. MUSCULOSKELETAL: No clubbing or cyanosis. Pulses are 2+. UNION ORGANIZER: No focal deficits. Power is 5/5 in all extremities. LABORATORY REVIEW: CBC showed WBC 10, hemoglobin 7.5, platelets 232,000. BMP showed sodium 138, potassium 5.2, chloride 112, bicarb 21, BUN 78, creatinine 3.2; it was 2.7 yesterday. Calcium 7.8. C-reactive protein 10.5, which is higher than yesterday. MICROBIOLOGY: All the cultures are negative so far. CURRENT INPATIENT MEDICATIONS: Patient's medications were all reviewed by myself. She is no longer on I.V. Vancomycin now. She was given one dose of Ibuprofen 800 mg at nighttime because of pain. She has been started on Zyvox 600 mg p.o. twice a day and she is on Levaquin 250 mg p.o. daily. ASSESSMENT AND PLAN: 1. Acute renal failure superimposed on chronic kidney disease stage 4: Patient's creatinine is worse today as compared with yesterday; most likely it is because of the dose of Ibuprofen that was given overnight. Avoid use of JERMAIN, ARB or NSAIDs in this patient, who has CKD 4 late stage renal failure almost approaching hemodialysis, however, there are no signs or symptoms of uremia. There is no urgent need of hemodialysis at this time. 2. Hyperkalemia: It is secondary to advanced CKD and use of Ibuprofen. Patient will be started on loop diuretic that will help with hyperkalemia and hypervolemia as well. 3. Chronic diastolic congestive heart failure: Patient is gaining weight and has lower extremity edema. She is being started on Bumex 1 mg p.o. every other day. 4. Anemia and chronic kidney disease and iron deficiency: I advised the patient to get a blood transfusion done. Hemoglobin has dropped to 7.5, but she is refusing the blood transfusion and because of this, I have to give her I.V. iron and she has also been started on Aranesp 200 mcg subcutaneously once a week; first dose will be given today. 5. Left lower lobe pneumonia and possible discitis: She has been started on oral Levaquin and Zyvox, dose is adequate for renal failure. The rest of the management is as per the medical team and infectious disease recommendations. 6. Hypertension: Blood pressure is controlled with Amlodipine and Bisoprolol, and lower dose of diuretic on alternate days is also being started. MTDD
--- NOTE | 2020-07-05 11:30 | IPNPDOC ---
Date Seen The patient was seen on 07/05/20. Progress Note SUBJECTIVE: Patient was seen, examined bedside chart is reviewed. She had fever 101 this morning, despite having received Levaquin on oral Zyvox. Patient lost IV access on Sunday, creatinine is worsened today after a dose of ibuprofen given overnight Sunday into Sunday morning as well as Bumex yesterday with increased creatinine 3. She still complains of 5 out of 10 pain in the mid upper back around T7, T8, alleviated by current medications. No fever, chills, shortness of breath or cough. She has passed physical therapy and is ambulating well. 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 OBJECTIVE: PHYSICAL EXAMINATION: VITAL SIGNS: see below GENERAL: Patient is awake, alert, oriented times three, eating her breakfast. Speaks in full sentences. No conversational dyspnea answering questions appropriately.anicteric. no jaundice. Patient has poor dentition., No respiratory distress, appears her stated age HEENT: No jugular venous distention (JVD). No thyromegaly., No cervical lymphadenopathy. Moist mucous membranes, no neck rigidity. Negative Brudzinski or Kernig sign LUNGS: Diminished. No wheezing or rales. AEBE, No use of accessory respiratory muscles. No adventitious breath sounds HEART: S1, S2, regular rate and rhythm No murmurs, or gallops.nondisplaced PMI no cyanosis of extremities.. No pericardial friction rub ABDOMEN: Soft, nontender, nondistended. Positive bowel sounds 4 quadrants , No hepatosplenomegaly , No rebound or guarding. Obese abdomen EXTREMITIES: No cyanosis or clubbing. Motor function is 5/5 times four ex tremities. MUSCULOSKELETAL: Patient has tenderness around T5-6 area. Non-erythematous. No induration LABORATORY DATA: see below Microbiology: June 28, blood cultures negative. Respiratory panel negative. Two sets of blood cultures June 25 negative. IMAGING STUDIES: Right thyroid nodule. Lumbar spine: Moderate central canal stenosis. Diffuse disc bulging at L2-3. Thoracic spine MRI: T7-8 early discitis, possible osteomyelitis. ASSESSMENT AND PLAN: This is a 65-year-old female with a history of chronic kidney disease, stage III, congestive heart failure (CHF), preserved systolic function, chronic obstructive pulmonary disease (COPD), insulin-dependent diabetes, hypertension, hyperlipidemia, presented to the emergency room with complaints of shortness of breath and fever. Initially diureses for CHF exacerbation and treated for pneumonia and COPD exacerbation with recurrent fevers. Patient complained of back pain and was subsequently evaluated with thoracic MRI with possible early discitis. Has been kept on intravenous (IV) vancomycin, renally dosed, and meropenem. 1. T7-8 early discitis. Antibiotic regimen includes intravenous vancomycin and meropenem from June 28 of July 02. Levaquin was started on July 02. Zyvox was started on July 03 due to fever 101 in July 02 this was continued until July 05. She still complains of 5 out of 10 pain on the upper back and had a fever 101.2 this morning, infectious disease specialist to decide whether we should repeat the MRI of the thoracic spine and obtain a biopsy by orthopedic clerical support specialist, Dr. Hiram Hernandez during this admission. Consider waiting as outpatient, being off antibiotics. 2. Congestive heart failure with preserved systolic function, diastolic dysfunction, status post diuresis. improving off diuretics, and does not seem to be fluid overloaded today. Patient is saturating well on 2 L nasal cannula, which is baseline. We're currently monitoring strict I's and O's, daily weights as well as daily creatinine and GFR. We've had worsening creatinine. Due to recent ibuprofen given at nighttime on Sunday evening, as well as resumption of Bumex. Creatinine today is 3. We have discontinued the Bumex today 3. Pneumonia, status post vancomycin and IV meropenem. Currently on renally dosed Levaquin due to fever of 101 on 07/02/2020, Zyvox was also added. Blood cultures remain negative. Respiratory panel and COVID are negative. Patient is currently on 2 liters nasalcannula, saturating 93%-96%. Defer to infectious disease specialist later today for any further changes in antibiotics have discontinued patient's Zyvox. 4. COPD, compensated. Patient was treated for possible COPD exacerbation with improvement. Currently on supplemental oxygen. Not on prednisone. 5. Hypertension, controlled on Norvasc, bisoprolol. 6. Chronic pain, on gabapentin. Monitored for worsening hypercapnia. 7. Type 2 diabetes, uncontrolled with increase in Levemir to twice a day dosing at 18 units. Hold for glucose less than 180. 8. Deep venous thrombosis (DVT) prophylaxis with compression stockings. 9. Dyslipidemia, on chronic Lipitor and Zetia. 10. Diabetic neuropathy, on chronic Neurontin. 11. constipation. bowel regimen. pt c/o nausea and loose stools. AXR: constipation. 12. . Acute on chronic kidney disease stage IV, baseline is stage III. Patient is kept on strict I's and O's, daily weights and daily creatinine and GFR monitoring insurance special agent, has been consulted. Worsening azotemia is thought to be secondary to sepsis secondary to early discitis and pneumonia. Nephrology is recommending continued treatment for infection which would allow the kidney function to return back to baseline. We are trying to avoid all nephrotoxins and renally dosing all medications at this time disposition: Pending clinical improvement. VS, I&O, 24H, Fishbone Vital Signs/I&O Vital Signs Date Time Temp Pulse Resp B/P (MAP) Pulse Ox O2 Delivery O2 Flow Rate FiO2 07/05/20 08:37 67 131/67 07/05/20 06:00 99.4 18 92 Nasal Cannula 2.0 I&O- Last 24 Hours up to 6 AM 07/05/20 06:00 Intake Total 1190 ml Output Total 1425 ml Balance -235 ml Laboratory Data 24H LABS Laboratory Tests 2 07/04/20 11:40: Bedside Glucose (Misc Panel) 155H 07/04/20 16:59: Bedside Glucose (Misc Panel) 188H 07/04/20 20:40: Bedside Glucose (Misc Panel) 205H 07/05/20 04:06: Nucleated Red Blood Cells % (auto) 0.0, Erythrocyte Sedimentation Rate 128H, Anion Gap 6L, Glomerular Filtration Rate 13.6L, Lactic Acid Level 0.5, Calcium Level 7.8L, C-Reactive Protein, Quantitative 11.10H 07/05/20 11:18: Bedside Glucose (Misc Panel) 185H CBC/BMP Laboratory Tests 07/05/20 04:06 Microbiology Microbiology 07/05/20 Blood Culture, Received Pending 07/03/20 Blood Culture - Preliminary, Resulted No Growth after 48 hours. All Specime... 07/03/20 Blood Culture - Preliminary, Resulted No Growth after 48 hours. All Specime... 06/28/20 Blood Culture - Final, Complete NO GROWTH AFTER 5 DAYS 06/28/20 Blood Culture - Final, Complete NO GROWTH AFTER 5 DAYS 06/25/20 Respiratory Virus Panel (PCR) ([facility]) - Final, Complete 06/25/20 Blood Culture - Final, Complete NO GROWTH AFTER 5 DAYS 06/25/20 Blood Culture - Final, Complete NO GROWTH AFTER 5 DAYS MARILYN JEFFRIES MD Jul 05, 2020 11:30
[2020-07-05] MEDS ORDERED: LEVO250T12 PO (13:27)
[2020-07-05] MEDS ORDERED: FERR32TA PO (13:27)
[2020-07-05] MEDS ORDERED: OXYC-517 PO (13:27)
[2020-07-05] MEDS ORDERED: AMLO1TAB25 PO (13:27)
[2020-07-05] MEDS ORDERED: INSUDET SC (13:27)
[2020-07-05] MEDS ORDERED: BISO10TA13 PO (13:27)
--- NOTE | 2020-07-05 13:58 | REPVR ---
PROCEDURE INFORMATION: Exam: CT Chest Without Contrast Exam date and time: 07/05/2020 12:56 PM Age: 65 years old Clinical indication: Fever; Additional info: Recurrent fevers pneumonia R/O abscess effusion TECHNIQUE: Imaging protocol: Computed tomography of the chest without contrast. 3D rendering (Not supervised by radiologist): MIP and/or 3D reconstructed images were created by the technologist. Radiation optimization: All CT scans at this facility use at least one of these dose optimization techniques: automated exposure control; mA and/or kV adjustment per patient size (includes targeted exams where dose is matched to clinical indication); or iterative reconstruction. COMPARISON: 1. CT Chest without contrast 06/28/2020 8:37 AM 2. MRI-Spine,Thoracic without con 06/28/2020 10:01:09 AM FINDINGS: Limitations: Lack of intravenous contrast material limits evaluation of the vascular and visceral structures. Thyroid: Partially imaged 2.9 cm hypodense right thyroid lobe lesion. Lungs: Redemonstration of left lower lobe consolidation. Mild interstitial pulmonary edema. Mild ground-glass opacity in both lungs, most pronounced in the right lower lobe. This may reflect edema or pneumonitis. Pleural space: Trace bilateral pleural effusions. Heart: Aortic valve calcification. Aorta: Mild atherosclerotic calcification of the thoracic aorta. Lymph nodes: Mildly prominent mediastinal lymph nodes, measuring up to 13 mm in short axis dimension. Bones/joints: Degenerative change of the spine. Redemonstration of endplate irregularity at T7-T8. Postsurgical change of the cervical spine. Soft tissues: Unremarkable. IMPRESSION: 1. Redemonstration of left lower lobe consolidation, favored to represent pneumonia. Recommend follow-up to radiographic resolution. 2. Redemonstration of T7-T8 discitis/osteomyelitis. 3. Trace bilateral pleural effusions. 4. Mild pulmonary edema. 5. Mild mediastinal lymphadenopathy. 6. Right thyroid lobe lesion. Recommend correlation with recent thyroid ultrasound. COMMENTS: Consistent with the [employer]'s Incidental Findings Committee white paper (J Am Juliano Radiol 2015): In patients aged 35 years and older with an incidental thyroid nodule equal to or greater than 1.[address], MRI or extrathyroidal US, further evaluation with dedicated thyroid US is recommended for patients with normal life expectancy and without comorbidities. For smaller nodules without suspicious features, no further evaluation or follow up is recommended. Electronically signed by: Tabitha Iglesias On 07/05/2020 13:58:05 PM
[2020-07-05 14:00] VITALS: BP 135/67
[2020-07-05] MEDS ORDERED: SOD POLYSTYRENE SULFONATE SUSP 15 GM/60 ML UD PO ONE (14:00)
[2020-07-05] MEDS ORDERED: MEROPENEM INJ 1 GM in IV 1 EA IV SCH (15:00)
--- NOTE | 2020-07-05 20:48 | ECGEPIP ---
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
--- NOTE | 2020-07-06 14:11 | DS.PDOC ---
Discharge Summary General Date of Admission 06/25/20 Date of Discharge 07/05/20 Transferred to [facility] re: T7-T8 Disciitis for biopsy Accepting Physician: Dr. Leung-Hospitalist Service Discharge Summary DISCHARGE DIAGNOSES: Acute on chronic obstructive pulmonary disease (COPD) exacerbation Hospital acquired pneumonia Thoracic discitis at T7- T8 Acute kidney injury superimposed on chronic kidney disease Hyperkalemia Hypervolemia due to worsening stage 5 renal failure Ibuprofen, Lasix, Sepsis-induced acute on Chronic renal failure Anemia of chronic kidney disease and iron deficiency Hypertensive Urgency Secondary hyperparathyroidism Diabetes mellitus type 2, insulin-dependent Chronic Diastolic Congestive Heart Failure with preserved systolic function Mild Pulmonary Hypertension Poor IV Access DISCHARGE MEDICATIONS: see below CONSULTANTS: ADMITTING HOSPITALIST-Dr. Betty Hernandez INFECTIOUS DISEASE -Dr. Mercedes Godinez NEPHROLOGY-Dr. Zhu, Dr. Francisco Mandujano ORTHOPEDIC SURGERY(discussed case with Dr. Enmanuel Coreas, Dr. Hiram Hernandez) RADIOLOGIST: (Discussed case with Dr. Corrales) INTERVENTIONAL RADIOLOGIST: (Discussed case with Dr. Taya Baird) DISCHARGE INSTRUCTIONS: T7-T8 Disciitis: Orthopedic Spine for biopsy, Infectious Disease for antibiotic selection Acute on CKD3, now stage 5: [employer] to manage and determine need for hemodialysis HISTORY OF PRESENTING ILLNESS: 65-year-old female with past medical history significant for chronic diastolic congestive heart failure with preserved systolic function. Chronic kidney disease stage III, [facility] by Dr. Francisco Mandujano, mild pulmonary hypertension, COPD, not oxygen or steroid dependent, followed by Dr. Castaneda [facility], hypertension, hyperlipidemia, insulin-dependent type 2 diabetes, sent in by her primary care physician, Dr. Breanna Fermin to the emergency room for 1 week history of dyspnea at rest and with exertion, cough productive of scant white sputum, left-sided rib pain worse when she coughs, without fever, chills, nausea, vomiting, or abdominal pain. She denied any worsening lower extremity edema, weight gain, paroxysmal nocturnal dyspnea or 3 pillow orthopnea at home. On arrival, patient was saturating 94-96% on room air with minimal dyspnea on exertion when ambulating from the emergency room stretcher to the bathroom per nursing. She had normal white count of 8, 75% neutrophils, 13% lymphocytes, 7% monocytes, no bandemia, chronic anemia with hemoglobin of 9, hematocrit of 28. Cardiac markers were neg ative with troponin less than 0.02 and pro BNP was 1733. EKG on 06/25/2020 1417 showed sinus rhythm, ventricular rate of 73, left ventricular hypertrophy and ST-T change versus ischemia. TX interval 193 QRS duration of 97, QT 4:15 QTc of 458 and was noted to have an admission creatinine of 2.79. Stage IV with baseline being at stage III chronic kidney disease. Due to prior history of diastolic congestive heart failure and elevated [id number], Patient was given IV Lasix in the emergency room 40 mg by emergency room physician, Dr. Mortensen at 1630 on 06/25/2020, then Combivent and albuterol along with Solu-Medrol 125 mg IV 1 for COPD exacerbation She had an admission weight of 96.6. Urine output of 3.35 L and at negative balance of -2.395 L on 06/26/2020. Hospitalist Dr. Hernandez was called to admit the patient for COPD exacerbation, Acute on chronic Renal Failure, and possible CHF exacerbation with shortness of breath and elevated BNP 1733. HOSPITAL COURSE: Acute decompensated congestive heart failure with preserved systolic function, diastolic dysfunction: Hospitalist, Dr. Betty Hernandez was called to admit the patient for evaluation of shortness of breath with preliminary diagnosis of COPD exacerbation and acute on chronic kidney disease. Patient was admitted for COPD exacerbation and presumed acute decompensated diastolic congestive heart failure, and despite a creatinine of 2.79 and chest x-ray showing no acute cardiopulmonary process, she was started on Lasix 40 IV every 12 hourly with a 24-hour neck negative balance of - 2.395 L and urine output of 3.35 L. Admission weight on 06/25/2020 was 96.6 kg in the emergency room of 1308 and 97.3 kg at 2148 on 06/25/2020. 06/25/2020 3:30 PM chest x-ray lungs, mild linear scarring in the left lateral lung base. No focal consolidation, pleural space unremarkable. No pleural effusion, no pneumothorax. Heart mediastinum stable prominence of the cardiac silhouette bones, joints postsurgical changes of degenerative change of the spine, no acute cardiopulmonary abnormality. She was kept on strict I's and O's, daily weights and fluid restriction. The patient's creatinine changed from 2.79 at 6 AM on 06/26/2020,to a creatinine of 3.16 on 06/27/2020 after the patient received 3 doses of intravenous Lasix 40 mg, first one was by the emergency room physician, Dr. Mortensen and Dr. Hernandez standing order of Lasix 40 mg IV every 12 hourly 2 doses, which was then discontinued and changed by Dr. Hernandez to Bumex 2 mg IV every 12 on 06/26at 2100. Urine output on 06/27/2020 was 2.2 L with negative balance of -970ml. Patient was now in stage IV renal failure. At this point gut cleaner, Dr. Zhu, was consulted for worsening renal function. [employer] discontinued Bumex 2 mg IV every 12 hourly with creatinine improving to 2.63 on 06/28/2020. She remained off diuretics until 07/04/20 when she developed weight gain and LE edema bilaterally. CT chest 07/05/20: small bilateral pleural effusions. LLL consolidation. T7-T8 disciitis. chronic obstructive pulmonary disease (COPD) exacerbation, not oxygen or steroid dependent. Patient complained of 1 week history of worsening shortness of breath at rest and with exertion as well as a pleuritic rib pain, cough productive of scant white sputum without fever or chills with Normal white count and cardiac markers. 06/25/20 Chest x-ray showed no acute cardiopulmonary process. She received albuterol and Combivent nebulizer in the ER and Solu-Medrol intravenously 125 mg and oxygen saturation of 94-96% on room air with ambulation in the ER. On hospital admission, patient was kept on Solu-Medrol 40 mg IV every 12 hourly continued on her Serevent, Combivent every 6 hourly Routine and every 2 hourly as needed for worsening shortness of breath and kept on DVT prophylaxis with heparin 5000 units subcutaneous every 12 hours. Solu-Medrol was discontinued on 06/27/2020 and prednisone 40 mg daily was started. Patient was still saturating 90-93% oxygen saturation on room air from 06/27/2020 until 06/29/2020 at midnight when she was found be febrile and desaturated to 89% oxygen saturation on room air, at which point she was placed on 1-2liters of oxygen via nasal cannula with o2 sat increasing to 92-94%.. Hospital acquired pneumonia Patient had complained of shortness of breath for 1 week and cough productive of minimal white sputum. On hospital admission,06/25/20 chest x-ray was normal without acute cardiopulmonary process. White count was 8, and oxygen saturation was 90-93% until 06/27/2020. 06/28/2020 at 1400, Patient had a low-grade temperature of 100.1 at 1852 06/28/2020 patient had a temperature 102.5 and again at 1953, temperature 102.9. CT chest, urinalysis and blood cultures were obtained due to fever UA was negative. Blood culture 06/25/20 showed no growth. After 5 days, 06/28/20 Blood cultures showed no growth. CT chest on 06/28/2020 7:51 AM showed newly developed left lower lobe airspace disease consistent with infiltrate in the appropriate clinical setting. Erosive change involving T7, T8 vertebral endplate which has progressed when compared to the previous study and would be suspicious for discitis. Correlation with MRI can be performed for improved.Follow-up chest imaging is recommended to ensure complete interval resolution interstitial prominence and trace dependent right-sided airspace disease, small left pleural effusion. Patient had an elevated white count of 12.6 on 06/27/2000 and on 06/29/2020 had a white count of 10.2. Patient was started on intravenous meropenem on 06/28/20 at 9:40 AM. vancomycin was added by her gut cleaner on 06/20/2020 at 1147, which was renally dosed by pharmacy. Infectious disease specialist , Dr. Godinez, was consulted on 06/28/2020, due to recurrent fevers despite IV vanco and Iv Meropenem ,and possible T7-T8 disciitis rule out osteomyelitis. She was on IV vanco and IV Meropenem from 06/28/20 to 1 . po levaquin on 07/03/20. She, then, had a fever on 07/03/20 of 101., Because she lost her IV access on 07/03/20 and refused another peripheral IV to be started, she was given zyvox 600 mg bid from 07/03/20-07/04/20. Repeat CT chest done on 07/05/[address] Godinez: LLL pneumonia, small bilateral effusions, T7-T8 disciitis. Per ID and nephrology recommendations and patient request, pt was transferred to [facility] for biopsy of thoracic spine to rule out osteomyelitis. Thoracic discitis at T7- T8 Patient complained of pain across the upper back that she's had for 3 months. She had a fever of 101.1 on 06/28/2020 at 1236 with MAXIMUM TEMPERATURE of 102.[address] chest showed T7, T8, early discitis, rule out osteomyelitis, with recommendation to proceed with MRI of the thoracic spine. The contrast could not be given due to acut teetee Chronic kidney disease with creatinine of 2.63, GFR of 19.4, Stage IV renal failure. Since the patient was started on IV vancomycin and intravenous meropenem, both of which were renally dosed, and endplates on CT chest were similar to prior studies, and her back pain was improving with no neurologic symptoms, per ID, the patient's fever was most likely secondary to hospital-acquired pneumonia.Blood cultures remain negative. MRI of the thoracic spine showed abnormal signal intensity involving the T7-T8 disc and adjacent vertebral endplates which appear hypointense on T1 hyperintense on T2 and STIR weighted images consistent with early discitis and osteomyelitis. This can be confirmed with a contrast enhanced MRI if clinically warranted. Erosive changes of the endplates were noted on the prior CT scan. The thoracic spinal cord is normal in thickness and signal intensity. There is no cord compression or intramedullary signal .Infectious disease specialist , Dr. Godinez, reviewed the MRI findings with Dr. Corrales, Radiologist, who felt that this would be difficult to access for biopsy and recommended orthopedic surgery to be involved. Orthopedic surgeon on-call, Dr. Enmanuel Coreas, was consulted by telephone to assist in doing a biopsy of the thoracic spine. Dr. Coreas recommended Dr. Hernandez to be contacted, orthopedic spine surgeon. Dr. Hernandez accepted the consult, but recommended discussion with either Dr. Baird. Interventional radiology or Dr. Corrales in radiology to attempt biopsy if possible. Interventional radiologist, Dr. Baird declined the consult stating that she does not do thoracic spine biopsies and recommended radiology to be contacted. Dr. Godinez had already spoken with Dr. Corrales previously who felt that this was too complicated and was difficult to access and recommended spine surgeon, Dr. Hiram Hernandez to attempt a biopsy. Per Dr. Godinez infectious disease if the patient defervesces and improves on IV antibiotics for hospital-acquired pneumonia, no neurological findings or worsening upper back pain, there will be no need for inpatient biopsy of the T7- T8 spine. She is to be discharged home when she is clinically improved, follow- up in the office with Dr. Godinez who will then decide biopsy after patient has been off antibiotics with repeat MRI of the thoracic spine. If repeat MRI of the thoracic spine as outpatient is still abnormal with neurological findings or fevers off antibiotics, the patient will be referred to Dr. Hiram Hernandez or neurosurgery in [place] for biopsy as outpatient. It was therefore decided that since the patient was improving with no neurological signs and improving back pain , and no fevers since being on IV vancomycin and meropenem no inpatient biopsy was necessary. However on 07/02/20 when the IV meropenem and IV vancomycin were discontinued by ID, and pt was left on po levaquin for pneumonia on 07/03/20, she spiked a fever of 101, and complained of recurrent upper back pain. She lost her IV access, and refused another peripheral line to be placed. Zyvox was given from 07/03-07/04 along with her po levaquin. On 07/05/20, ID, Dr. Godinez recommended repeating CT chest which was unchanged, and recommended transferring to [place] for either neurosurgical or ortho spine services to obtain a biopsy of the thoracic spine T7-T8. Acute kidney injury superimposed on chronic kidney disease The patient's creatinine changed from 2.79 at 6 AM on 06/26/2022,to a creatinine of 3.16 on 06/27/2020 after the patient received 3 doses of intravenous Lasix 40 mg, first one was by the emergency room physician, Dr. Mortensen and Dr. Hernandez standing order of Lasix 40 mg IV every 12 hourly 2 doses, which was then discontinued and changed by Dr. Hernandez to Bumex 2 mg IV every 12 on 926 at 2100. Urine output on 06/27/2020 was 2.2 L with negative balance of -970ml. Patient was now in stage IV renal failure. At this point gut cleaner, Dr. Zhu, was consulted for worsening renal function. [employer] discontinued, Bumex 2 mg IV every 12 hourly with creatinine improving to 2.63 on 06/28/2020. At this point. Patient's worsening renal function was thought to be due to "aggressive diuresis." Since the patient was found to have hospital-acquired pneumonia 72 hours after hospital admission. Her vancomycin and meropenem were renally dosed by pharmacy. Urine output was monitored. The patient remained in stage IV kidney failure. A sliding of stage III thought to be secondary to acute infection with hospital-acquired pneumonia and possible T7-T8 discitis after her vancomycin and meropenem were discontinued by infectious disease on 07/02/20, and patient was started on oral renally dosed Levaquin at 250 daily which started on 07/03/2020. On 07/02/2020 patient spiked a temperature of 101 at 8 PM on 07/02/2000. Night Resident physician, Dr. Lopez, was called by nursing regarding fever of 101, asking for antipyretic medication. Dr. Lopez then gave the order for ibuprofen 800 mg every 8 hourly as needed for fever and the patient received 1 dose of ibuprofen 800 mg by mouth. At 4 AM on 06/29/2020. Patient's blood pressure was uncontrolled at 180/104, increased to 200/98. Patient limited tree and given 1 dose of hydralazine 10 mg IV at [address] reynaga 2 doses and Norvasc 5 mg daily at 4:[address] Lopez gave the patient hydralazine 10 mg IV improvement. Blood pressure from 200/98-150/70 at 7:39 AM on 06/29/20. Patient's creatinine increased from 2.63 at 0428 am on 06/28/20 to 3.07 0430am 06/30/20 and 3.30 on 07/04/20 0456am. Per gut cleaner. Patient's sudden decompensation and renal function from stage III at baseline to stage V. His thought to be due to to ibuprofen induced acute kidney injury as well as sepsis induced kidney injuries secondary to hospital-acquired pneumonia and T7, T8 discitis. The patient gained weight from admission weight of 96.6 kg to 103.4 kg, as well as fluid overload with increasing lower extremity edema, prompting the gut cleaner to start her on and started the patient on Bumex 1 mg by mouth every 48 hours. She remained in a negative balance with urine output of 1.2 L and 1.375 L from 10 4010 5. Weight at discharge was 103.[address] chest on 07/05/2020 order to further evaluate for current fevers, shows redemonstration of the left lower consolidation representing pneumonia. Redemonstration of T7, T8 discitis, osteomyelitis, trace bilateral effusions, mild pulmonary edema, mild mediastinal lymphadenopathy, right thyroid lobe lesion. Recommend correlation with recent thyroid ultrasound. 07/04/2020. Potassium was elevated at 5.2 despite Kayexalate. Patient had persistent hyperkalemia with repeat potassium of 5.6 on 07/05/2020. Fluid overload Fluid overload. [employer], Dr. Francisco Mandujano discussed possible need for hemodialysis in the near future,but we will continue to monitor in renal function as the infection improve. Incidental Finding Right Thyroid nodule Due to Fever and leukocytosis, CT chest was done on 06/28/20, with an incidental finding of a 4.8 x 3.5 x 2.8 cm mildly enlarged and heterogeneous in echotexture nodule in the midpole of the right thyroid with few small echogenic foci, which may represent microcalcifications. I am C may be considered for further evaluation. Left thyroid lobe 4.3 x 1.5 x 1.4 cm normal in size and echotexture. No nodules seen by 7 mm. Hyperkalemia, recurrent. Per gut cleaner. Patient's sudden decompensation in renal function from stage III at baseline to stage V is thought to be due to to ibuprofen induced acute kidney injury as well as sepsis induced kidney injuries secondary to hospital- acquired pneumonia and T7, T8 discitis. The patient gained weight from admission weight of 96.6 kg to 103.4 kg, as well as fluid overload with increasing lower extremity edema, prompting the gut cleaner to start her on Bumex 1 mg by mouth every 48 hours. She remained in a negative balance with urine output of 1.2 L and 1.375 L from 07/04/20 to 07/05/20. As her creatinine worsened, she developed recurrent hyperkalemia with potassium of 5.2 despite Kayexalate, and repeat potassium of 5.6 on 07/05/2020 with fluid overload, but nonoliguric with urine output of 1.375 on 07/05/20. [employer], Dr. Francisco Mandujano discussed possible need for hemodialysis in the near future,but we will continue to monitor in renal function as the infection improve. Hypervolemia due to worsening stage 5 renal failure As her creatinine worsened, she developed fluid overload treated with bumex but with increasing azotemia. Her [employer] Dr. Mandujano discussed possible need for hemodialysis in the near future,but we will continue to monitor in renal function as the infection improve. Anemia of chronic kidney disease and iron deficiency Her hemoglobin's gradual decrease from 9.1 on 06/25/20 to 7.5 on 07/05 was thought to be due to , chronic kidney disease and iron deficiency. Her [employer], Dr. Zhu gave her Aranesp 200 g subcutaneous 1 and IV ferrous carboxymaltose on 07/04/20. She had no overt GI bleed. Hypertensive Urgency Patient's blood pressure was uncontrolled at 180/104, increased to 200/98. Patient limited tree and given 1 dose of hydralazine 10 mg IV at [address] reynaga 2 doses and Norvasc 5 mg daily at 4:[address] Lopez gave the patient hydralazine 10 mg IV improvement. Blood pressure from 200/98-150/70 at 7:39 AM on 06/29/20. Secondary hyperparathyroidism Diabetes mellitus type 2, insulin-dependent Patient was kept on consistent carbohydrate diet, insulin sliding scale with coverage. She developed steroid induced hyperglycemia with improved with increasing doses of insulin. DISCHARGE PHYSICAL EXAMINATION: VITAL SIGNS: see below GENERAL: No respiratory use of accessory muscles. Patient is awake, alert, oriented x3, lying in bed, in no apparent distress. HEAD AND NECK: Face is symmetric Tongue is midline. anicteric. no jaundice. Speech is fluent. Extraocular muscles intact. Pupils equally round and reactive to light. Mucous membranes are moist. Neck is supple. There is no JVD. CARDIOVASCULAR: S1, S2, regular rate.1+ edema of the bilateral lower extremities. RESPIRATORY: Chest is clear to auscultation bilaterally in the upper lung zones.LLL crackles. AEBE. ABDOMEN: Soft, obese, positive bowel sounds x4 quadrants, nontender.No HSM, or abdominal bruits MUSCULOSKELETAL: No clubbing or cyanosis. Pulses are 2+. tender without erythema or swelling T7-T8. DRY KILN LOADER:.motor 5/5 x 4 extremities. no changes in sensation b/l UE. 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 : 1955 Requested By: Lilly Palomo Order Number: [id number] Reading MD: Abhijeet Martinez Measurements Intervals [place] Rate: 73 P: 28 TX: 193 QRS: -16 QRSD: 97 T: 118 QT: 415 QTc: 458 Interpretive Statements SINUS RHYTHM LEFT VENTRICULAR HYPERTROPHY AND ST-T CHANGE vs ischemia Similar to tracing done 04-16-20 Electronically Signed on 06-25-2020 18:17:24 EDT by Abhijeet Martinez Test Date: 2020-06-26 Pat Name: CELI JOHNSON Department: Room: [place] [address] Gender: Female [employer] Supervisor: LK : 1955 Requested By: MARILYN Garcia Order Number: [id number] Reading MD: Catrina Jacobson Measurements Intervals [place] Rate: 92 P: 49 TX: 196 QRS: 1 QRSD: 95 T: 114 QT: 375 QTc: 464 Interpretive Statements SINUS RHYTHM STT-WAVE ABNORMALITY, CONSIDER LATERAL ISCHEMIA/ LVH NO CHANGE COMPARED TO 06/25/20 Electronically Signed on 07-05-2020 20:48:29 EDT by Volennytech Patka Test Date: 2020-06-27 Pat Name: CELI JOHNSON Department: Room: [place] [address] Gender: Female [employer] Supervisor: LK : 1955 Requested By: RAJAN LOPEZ Order Number: [id number] Reading MD: Shaun Willis Measurements Intervals [place] Rate: 75 P: 38 TX: 203 QRS: -3 QRSD: 90 T: 124 QT: 425 QTc: 475 Interpretive Statements Normal sinus rhythm Delayed anterior R wave progression Probable left ventricular hypertrophy with repolarization abnormality No significant change when compared to prior tracing of 06/25/2020 Electronically Signed on 06-27-2020 19:50:37 EDT by Shaun Alba ECHOCARDIOGRAM DATE OF PROCEDURE: 06/28/2020 Gender: F Height: 150 cm Weight: 97 kg REFERRING PHYSICIAN: Betty Hernandez MD INDICATION: Vegetation This is a limited echocardiogram. No routine measurements were obtained. Patientis in sinus rhythm. Left ventricle is of normal systolic function, I estimated left ventricular ejection fraction (LVEF) 65-70%. No segmental wall motion abnormalities are appreciated. Right ventricle does not appear grossly enlarged. Most atria appeargrossly normal. Aortic valve was poorly visualized. It is at least mildly sclerotic but I cannot comment on its mobility, or presence or absence of vegetations. Mitral valve also exhibited degenerative abnormalities with thickening of leaflets and presence of mitral annular calcifications but unfortunately resolution was so poor that I cannot comment much on its structureor mobility. No obvious vegetations were seen. Tricuspid valve appears normal. Pulmonic valve was not well seen. Doppler interrogation of aortic valve reveals no insufficiency and trivial stenosis with mean grade of 11 mmHg. Mitral valve is functionally competent. Trace tricuspid insufficiency is seen but quality of tricuspid regurgitation (TR) jet was not sufficient to estimate pulmonary artery pressure. CONCLUSIONS: 1. Study is of very limited technical quality, patient is in sinus rhythm. 2. Grossly preserved left ventricular (LV) systolic function. Diastolic function was not properly assessed. 3. Very poorly visualized aortic valve with presence of sclerosis resulting in minimal stenosis and no insufficiency. 4. Degenerative abnormalities of mitral valve with no stenosis or insufficiency. 5. Trace tricuspid insufficiency. 6. Unable to estimate central venous pressure and pulmonary artery pressure. 7. Compared to echocardiogram performed two months ago, the quality of today's study is substantially inferior but I do not visualize any distinct vegetations. DD: Catrina Jacobson MD 06/28/20 1900 DT: ANNABEL 06/30/20 1138 DS: IMAGING STUDIES: PROCEDURE INFORMATION: Exam: XR Chest, 1 View Exam date and time: 06/25/2020 3:30 PM Age: 65 years old Clinical indication: Cough and dyspnea; Additional info: Dyspnea/cough TECHNIQUE: Imaging protocol: XR of the chest Views: 1 view. COMPARISON: CR PORTABLE CHEST X-RAY 04/20/2020 7:16 AM FINDINGS: Lungs: Mild linear scarring in the left lateral lung base. No focal consolidation. Pleural space: Unremarkable. No pleural effusion. No pneumothorax. Heart/Mediastinum: Stable prominence of the cardiac silhouette. Bones/joints: Postsurgical change and degenerative change of the spine. IMPRESSION: No acute cardiopulmonary abnormality. PROCEDURE INFORMATION: Exam: XR Chest, 2 Views Exam date and time: 06/27/2020 9:33 AM Age: 65 years old Clinical indication: Other: Chf TECHNIQUE: Imaging protocol: XR of the chest Views: 2 views. COMPARISON: CR PORTABLE CHEST X-RAY 06/25/2020 3:25 PM FINDINGS: Lungs: Unremarkable. No consolidation. Pleural space: Unremarkable. No pleural effusion. No pneumothorax. Heart/Mediastinum: The cardiomediastinal silhouette is fairly stable in appearance, allowing for differences in technique. Bones/joints: There is again hardware in the cervical spine. Degenerative changes again involve the spine. IMPRESSION: No evidence for acute pulmonary disease. Electronically signed by: Ayad Mustafa On 06/27/2020 09:46:56 AM Electronically signed by: Tabitha Iglesias On 06/25/2020 15:40:21 PM Exam: CT Chest Without Contrast Exam date and time: 06/28/2020 7:51 AM Age: 65 years old Clinical indication: Fever TECHNIQUE: Imaging protocol: Computed tomography of the chest without contrast. 3D rendering (Not supervised by radiologist): MIP and/or 3D reconstructed images were created by the technologist. Radiation optimization: All CT scans at this facility use at least one of these dose optimization techniques: automated exposure control; mA and/or kV adjustment per patient size (includes targeted exams where dose is matched to clinical indication); or iterative reconstruction. COMPARISON: CT Chest without contrast 06/24/2019 9:12 AM FINDINGS: Thyroid: Incompletely visualized 13 mm nodular hypodense lesion in the right thyroid lobe. Lungs: Newly developed left lower lobe airspace disease, consistent with infiltrate, in the appropriate clinical setting. Follow-up chest imaging is recommended to ensure complete interval resolution. Interstitial prominence and trace dependent right-sided airspace disease. Pleural space: Small left pleural effusion. Heart: No cardiomegaly. Aorta: Calcification and ectasia of the thoracic aorta. Lymph nodes: Subcentimeter lymph nodes. Bones/joints: Degenerative change, Schmorl's nodes, vertebral endplate irregularity, and vacuum discs. Erosive change involving the T7-8 vertebral endplates, which has progressed when compared to the previous study, and would be suspicious for discitis. Correlation with MRI can be performed for improved characterization, as clinically indicated. IMPRESSION: 1. Erosive change involving the T7-8 vertebral endplates, which has progressed when compared to the previous study, and would be suspicious for discitis. Correlation with MRI can be performed for improved characterization, as clinically indicated. 2. Newly developed left lower lobe airspace disease, consistent with infiltrate, in the appropriate clinical setting. 3. Additional findings as described above. COMMENTS: Consistent with the [employer] [employer]'s Incidental Findings Committee white paper (J Am Chelsey Radiol 2015): In patients aged 35 years and older with an incidental thyroid nodule equal to or greater than 1.[address], MRI or extrathyroidal US, further evaluation with dedicated thyroid US is recommended for patients with normal life expectancy and without comorbidities. For smaller nodules without suspicious features, no further evaluation or follow up is recommended. Electronically signed by: Hiram Barajas On 06/28/2020 09:34:04 AM DD: HIRAM BARAJAS MD 06/28/20 0751 PROCEDURE INFORMATION: Exam: MR Thoracic Spine Without Contrast Exam date and time: 06/28/2020 10:45 AM Age: 65 years old Clinical indication: Pain and abnormal findings; Abnormal radiologic findings of thoracic; Pain in thoracic spine; Without myelpathy or radiculopathy; Patient HX: Back pain, abn CT on pacs; Additional info: Questionable diskitis TECHNIQUE: Imaging protocol: Multiplanar magnetic resonance images of the thoracic spine without contrast. COMPARISON: CT Chest without contrast 06/28/2020 8:37:23 AM FINDINGS: Vertebrae: Examination reveals abnormal signal intensity involving the the T7-8 disc and adjacent vertebral endplates which appear hypointense on T1 hyperintense on T2 and STIR weighted images consistent with early discitis and osteomyelitis. This can be confirmed with a contrast-enhanced MRI if clinically warranted. Erosive changes of the endplates were noted on the prior CT scan. Otherwise, remainder of the thoracic vertebral bodies are normal in height, alignment and signal intensity. Postsurgical changes are noted in the lower cervical spine with metallic inhomogeneity artifact limiting evaluation in this region. The study is limited due to motion artifact. Epidural space: There is no evidence of epidural masses or hemorrhage. Spinal cord: The thoracic spinal cord is normal in thickness and signal intensity.There is no cord compression or intramedullary signal abnormality. Discs/Spinal canal/Neural foramina: Remainder of the thoracic disc spaces reveal moderate to severe disc space narrowing, mild degenerative endplate changes and prominent marginal anterior osteophytes. There is a mild diffuse posterior bulging/diffuse posterior herniation at multiple levels but without significant spinal canal or foraminal stenosis. Soft tissues: The prevertebral soft tissues appear normal. IMPRESSION: 1. Examination reveals abnormal signal intensity involving the the T7-8 disc and adjacent vertebral endplates which appear hypointense on T1 hyperintense on T2 and STIR weighted images consistent with early discitis and osteomyelitis. This can be confirmed with a contrast-enhanced MRI if clinically warranted. Erosive changes of the endplates were noted on the prior CT scan. 2. Otherwise, remainder of the thoracic vertebral bodies are normal in height, alignment and signal intensity. Postsurgical changes are noted in the lower cervical spine with metallic inhomogeneity artifact limiting evaluation in this region. 3. The thoracic spinal cord is normal in thickness and signal intensity.There is no cord compression or intramedullary signal abnormality. 4. The study is limited due to motion artifact. Electronically signed by: Erwin Cabrera On 06/28/2020 11:22:04 AM PROCEDURE INFORMATION: Exam: US Soft Tissue Head and Neck, Thyroid Exam date and time: 06/28/2020 11:30 AM Age: 65 years old Clinical indication: Screening exam; Nodule; Additional info: Questionable diskitis TECHNIQUE: Imaging protocol: Real-time ultrasound scan of the neck with image documentation. Exam focused on the thyroid. COMPARISON: Thyroid, ST head+neck US 10/18/2017 10:58 AM FINDINGS: Right thyroid lobe: 4.8 x 3.5 x 2.8 cm in dimensions. Mildly enlarged and heterogeneous in echotexture. There is a well-defined solid hypoechoic complex nodule in the midpole of the right thyroid with few small echogenic foci which may represent microcalcifications. Biopsy may be considered for further evaluation. Left thyroid lobe: 4.3 x 1.5 x 1.4 cm. Normal in size and echotexture. No nodules are seen. Isthmus: 7 mm. IMPRESSION: There is a well-defined solid hypoechoic complex nodule in the midpole of the right thyroid with few small echogenic foci which may represent microcalcifications. Biopsy may be considered for further evaluation. Electronically signed by: Erwin Cabrera On 06/28/2020 11:49:43 AM PROCEDURE INFORMATION: Exam: MR Lumbar Spine Without Contrast. Exam date and time: 06/30/2020 10:35 AM Age: 65 years old Clinical indication: Low back pain; Patient HX: Lbp; Additional info: Thoracic disitis lbp TECHNIQUE: Imaging protocol: Multiplanar magnetic resonance images of the lumbar spine without intravenous contrast. COMPARISON: CR Spine. Lumbosacral, complete 10/17/2019 11:02 AM FINDINGS: Vertebrae: There is no fracture or listhesis. Normal vertebral body alignment and heights are preserved. There is moderate to severe intervertebral disc space loss at L2/3 and L4/5. Spinal cord: Normal signal. No cord compression. L1-L2: No significant disc disease. No significant spinal canal stenosis. No neural foraminal stenosis. L2-L3: There is diffuse disc bulging with a prominent left foraminal component. There is moderate facet and ligamentous hypertrophy. There is moderate canal stenosis. There is mild right and moderate left neural foraminal narrowing. L3-L4: There is shallow disc bulging. There is moderate facet and ligamentous hypertrophy. There is mild canal stenosis. There is mild bilateral neural foraminal narrowing. L4-L5: There is diffuse disc bulging. There is moderate facet and ligamentous hypertrophy. There is pivw-cp-[id number] bilateral neural foraminal narrowing. L5-S1: There is diffuse disc bulging. There is mild facet hypertrophy. The spinal canal and neural foramina are patent. Soft tissues: Unremarkable. IMPRESSION: Degenerative disc disease and spondylosis. At L2/3, changes contribute to moderate canal stenosis. There is moderate left neural foraminal narrowing. Electronically signed by: Jackelin Rockwell On 06/30/2020 11:26:29 AM PROCEDURE INFORMATION: Exam: XR Abdomen, 1 View Exam date and time: 07/02/2020 9:07 AM Age: 65 years old Clinical indication: Nausea and vomiting; Additional info: Abd distention intractable nausea TECHNIQUE: Imaging protocol: XR of the abdomen. Views: Frontal supine view of the abdomen. 1 View. COMPARISON: MRI ABDOMEN WITHOUT CONTRAST 02/18/2018 4:56 PM FINDINGS: Gastrointestinal tract: Prominent stool, in a pattern of constipation. Prominent gastric air. Bones/joints: osteopenia and degenerative change. Bilateral hip arthroplasties. IMPRESSION: Prominent stool, in a pattern of constipation. Electronically signed by: Hiram Barajas On 07/02/2020 10:46:28 AM PROCEDURE INFORMATION: Exam: CT Chest Without Contrast Exam date and time: 07/05/2020 12:56 PM Age: 65 years old Clinical indication: Fever; Additional info: Recurrent fevers pneumonia R/O abscess effusion TECHNIQUE: Imaging protocol: Computed tomography of the chest without contrast. 3D rendering (Not supervised by radiologist): MIP and/or 3D reconstructed images were created by the technologist. Radiation optimization: All CT scans at this facility use at least one of these dose optimization techniques: automated exposure control; mA and/or kV adjustment per patient size (includes targeted exams where dose is matched to clinical indication); or iterative reconstruction. COMPARISON: 1. CT Chest without contrast 06/28/2020 8:37 AM 2. MRI-Spine,Thoracic without con 06/28/2020 10:01:09 AM FINDINGS: Limitations: Lack of intravenous contrast material limits evaluation of the vascular and visceral structures. Thyroid: Partially imaged 2.9 cm hypodense right thyroid lobe lesion. Lungs: Redemonstration of left lower lobe consolidation. Mild interstitial pulmonary edema. Mild ground-glass opacity in both lungs, most pronounced in the right lower lobe. This may reflect edema or pneumonitis. Pleural space: Trace bilateral pleural effusions. Heart: Aortic valve calcification. Aorta: Mild atherosclerotic calcification of the thoracic aorta. Lymph nodes: Mildly prominent mediastinal lymph nodes, measuring up to 13 mm in short axis dimension. Bones/joints: Degenerative change of the spine. Redemonstration of endplate irregularity at T7-T8. Postsurgical change of the cervical spine. Soft tissues: Unremarkable. IMPRESSION: 1. Redemonstration of left lower lobe consolidation, favored to represent pneumonia. Recommend follow-up to radiographic resolution. 2. Redemonstration of T7-T8 discitis/osteomyelitis. 3. Trace bilateral pleural effusions. 4. Mild pulmonary edema. 5. Mild mediastinal lymphadenopathy. 6. Right thyroid lobe lesion. Recommend correlation with recent thyroid ultrasound. COMMENTS: Consistent with the [employer]'s Incidental Findings Committee white paper (J Am Chelsey Radiol 2015): In patients aged 35 years and older with an incidental thyroid nodule equal to or greater than 1.[address], MRI or extrathyroidal US, further evaluation with dedicated thyroid US is recommended for patients with normal life expectancy and without comorbidities. For smaller nodules without suspicious features, no further evaluation or follow up is recommended. Electronically signed by: Tabitha Iglesias On 07/05/2020 13:58:05 PM MICROBIOLOGY: SPEC #: [id number] CHELSEY: 06/25/201414 STATUS: COMP REQ #: [id number] RECD: 06/25/201435 SUBM DR: Lilly Palomo MD SOURCE: BLOOD ENTR: 06/25/[address] [facility] [address]: BREANNA FERMIN MD SPDESC: VENOUS COMP: 06/30/20 ORDERED: BLOOD CULT COMMENTS: Culture Source: BLOOD Comments: separate peripheral sites or device/port/PICC if present Procedure Result Site BLOOD CULTURE Final NO GROWTH AFTER 5 DAYS No growth after 72 hours . All specimens observed for 5 days. Results final at that time. No growth after 48 hours . All specimens observed for 5 days. Results final at that time. No growth after 24 hours . All specimens observed for 5 days. Results final at that time. SPEC #: [id number] CHELSEY: 06/25/20 STATUS: COMP REQ #: [id number] RECD: 06/25/[address] [facility] [address]: Lilly Palomo MD SOURCE: BLOOD ENTR: 06/25/[address] [facility] [address]: BREANNA FERMIN MD SPDESC: VENOUS COMP: 06/30/20 ORDERED: BLOOD CULT COMMENTS: Culture Source: BLOOD Comments: separate peripheral sites or device/port/PICC if present Procedure Result Site BLOOD CULTURE Final NO GROWTH AFTER 5 DAYS No growth after 72 hours . All specimens observed for 5 days. Results final at that time. No growth after 48 hours . All specimens observed for 5 days. Results final at that time. No growth after 24 hours . All specimens observed for 5 days. Results final at that time. SPEC #: [id number] CHELSEY: 06/25/20 STATUS: COMP REQ #: [id number] RECD: 06/25/[address] [facility] [address]: Lilly Palomo MD SOURCE: NASTINOARYN ENTR: 06/25/[address]: BREANNA FERMIN MD SPDESC: COMP: 06/25/20 ORDERED: RESP PANEL COMMENTS: Source: NASOPHARYNX --------- --- Procedure Result Site RESPIRATORY PANEL Final NEGATIVE by MULTIPLEXED NUCLEIC ACID PCR SARS-CoV-2 (COVID 19) NEGATIVE - SARS-CoV-2 (COVID19) This respiratory PCR panel detects Influenza A H1, H3 and 2009 H1 viruses, Influenza B virus, Respiratory Syncytial Virus, Human metapneumovirus, Parainfluenza virus 1, 2, 3 and 4, Adenovirus, Rhinovirus/Enterovirus, Coronavirus HKU1, NL63, OC43, 229E and SARS-CoV-2 (COVID 19), Bordetella pertussis, Bordetella parapertussis, Mycoplasma pneumoniae and Chlamydia pneumoniae. SPEC #: [id number] CHELSEY: 06/28/20 STATUS: COMP REQ #: [id number] RECD: 06/28/[address]: ZHEN REYNAGA DO SOURCE: BLOOD ENTR: 06/28/[address] [facility] [address]: BETTY HERNANDEZ MD SPDESC: VENOUS COMP: 07/03/20 RASHID ZHU MD, KATE E. MD ORDERED: BLOOD CULT COMMENTS: Culture Source: BLOOD Procedure Result Site BLOOD CULTURE Final NO GROWTH AFTER 5 DAYS No growth after 72 hours . All specimens observed for 5 days. Results final at that time. No growth after 48 hours . All specimens observed for 5 days. Results final at that time. No growth after 24 hours . All specimens observed for 5 days. Results final at that time. SPEC #: [id number] CHELSEY: 06/28/20 STATUS: COMP REQ #: [id number] RECD: 06/28/[address] [facility] [address]: ZHEN REYNAGA DO SOURCE: BLOOD ENTR: 06/28/[address] [facility] [address]: BETTY HERNANDEZ MD SPDESC: VENOUS COMP: 07/03/20 RASHID ZHU MD, KATE E. MD ORDERED: BLOOD CULT COMMENTS: Culture Source: BLOOD -- Procedure Result Site BLOOD CULTURE Final NO GROWTH AFTER 5 DAYS No growth after 72 hours . All specimens observed for 5 days. Results final at that time. No growth after 48 hours . All specimens observed for 5 days. Results final at that time. No growth after 24 hours . All specimens observed for 5 days. Results final at that time. SPEC #: [id number] CHELSEY: 06/28/20 STATUS: COMP REQ #: [id number] RECD: 06/28/[address] [facility] [address]: ZHEN REYNAGA DO SOURCE: BLOOD ENTR: 06/28/[address]: BETTY HERNANDEZ MD SPDESC: VENOUS COMP: 07/03/20 RASHID ZHU MD, KATE E. MD ORDERED: BLOOD CULT COMMENTS: Culture Source: BLOOD Procedure Result Site BLOOD CULTURE Final NO GROWTH AFTER 5 DAYS No growth after 72 hours . All specimens observed for 5 days. Results final at that time. No growth after 48 hours . All specimens observed for 5 days. Results final at that time. No growth after 24 hours . All specimens observed for 5 days. Results final at that time. SPEC #: [id number] CHELSEY: 07/03/20 STATUS: RES REQ #: [id number] RECD: 07/03/[address] [facility] [address]: MARILYN JEFFRIES MD SOURCE: BLOOD ENTR: 07/03/[address] [facility] [address]: Mercedes Godinez MD SPDESC: VENOUS RSLT: 07/05/20 BETTY HERNANDEZ MD, JAHANGIR A. MD SKIPTON, KATE E. MD ORDERED: BLOOD CULT COMMENTS: Culture Source: BLOOD Comments: Lab draw Procedure Result Site BLOOD CULTURE Preliminary No Growth after 48 hours. All Specimens observed for 5 days. Results final at that time. No growth after 24 hours . All specimens observed for 5 days. Results final at that time. SPEC #: [id number] CHELSEY: 07/05/20 STATUS: RES REQ #: [id number] RECD: 07/05/[address] [facility] [address]: ERIK ALEXANDER MD SOURCE: BLOOD ENTR: 07/05/[address] [facility] [address]: Mercedes Godinez MD SPDESC: PORT RSLT: 07/06/20 BETTY HERNANDEZ MD, JAHANGIR A. MD SKIPTON, KATE E. MD ORDERED: BLOOD CULT COMMENTS: Culture Source: BLOOD Comments: LAB DRAW Procedure Result Site BLOOD CULTURE Preliminary No growth after 24 hours . All specimens observed for 5 days. Results final at that time. TIME SPENT ON HOSPITAL DISCHARGE: 30 MIN Vital Signs/I&Os Vital Signs Date Time Temp Pulse Resp B/P (MAP) Pulse Ox O2 Delivery O2 Flow Rate FiO2 07/05/20 14:00 99.4 73 20 135/67 (44) 91 Nasal Cannula 2.0 I&O- Last 24 Hours up to 6 AM 07/06/20 05:59 Intake Total 510 ml Output Total 1175 ml Balance -665 ml Laboratory Data Labs 24H Laboratory Tests 2 07/05/20 11:18: Bedside Glucose (Misc Panel) 185H 07/05/20 12:11: Coronavirus (COVID-19)(PCR) NEGATIVE FSBS Laboratory Tests Test 07/05/20 11:18 Range/Units Bedside Glucose (Misc Panel) 185 80-115 MG/DL Microbiology Microbiology 07/05/20 Blood Culture - Preliminary, Resulted No growth after 24 hours . All specim... 07/03/20 Blood Culture - Preliminary, Resulted No Growth after 48 hours. All Specime... 07/03/20 Blood Culture - Preliminary, Resulted No Growth after 48 hours. All Specime... 06/28/20 Blood Culture - Final, Complete NO GROWTH AFTER 5 DAYS 06/28/20 Blood Culture - Final, Complete NO GROWTH AFTER 5 DAYS Discharge Medications Scheduled Amlodipine Besylate (Amlodipine Besylate) 10 Mg Tablet, 10 MG PO DAILY Atorvastatin Calcium (Atorvastatin Calcium) 80 Mg Tab, 80 MG PO QHS, (Reported) Bisoprolol Fumarate (Bisoprolol Fumarate) 10 Mg Tablet, 10 MG PO BID Calcitriol (Calcitriol) 0.25 Mcg Capsule, 0.25 MCG PO 3XW, (Reported) MON, SUN, FRI Ferrous Gluconate (Ferrous Gluconate) 324 Mg Tablet, 324 MG PO DAILY Fluticasone Furoate (Arnuity Ellipta) 200 Mcg Blst.w.dev, 1 PUFF INH DAILY, (Reported) Gabapentin (Gabapentin) 100 Mg Capsule, 100 MG PO BID, (Reported) Insulin Aspart (Novolog Flexpen) 100 Unit/1 Ml Insuln.pen, 1 DOSE SC AC, (Reported) PER SLIDING SCALE Insulin Detemir (Levemir) 100 Unit/1 Ml Vial, 40 UNITS SC QHS, (Reported) Insulin Detemir (Levemir) 100 Unit/1 Ml Vial, 18 UNITS SC BID Levofloxacin (Levofloxacin) 250 Mg Tablet, 250 MG PO DAILY@06 Salmeterol (Serevent Diskus) 50 Mcg Blst.w.dev, 1 PUFF INH BID, (Reported) Umeclidinium Coolidge (Incruse Ellipta) 62.5 Mcg Blst.w.dev, 1 PUFF INH DAILY, (Reported) Scheduled PRN Acetaminophen (Acetaminophen) 500 Mg Tablet, 1,000 MG PO TID PRN for PAIN, (Reported) Albuterol Sulfate (Proair Hfa) 108 Mcg/Act Aer, 2 PUFFS INH Q4H PRN for SHORTNESS OF BREATH, (Reported) Ipratropium/Albuterol Sulfate (Iprat-Albut 0.5-3(2.5) mg/3 ml) 3 Ml Ampul.neb, 1 VIAL NEB QID PRN for SOB/WHEEZING, (Reported) Oxycodone HCl (Oxycodone HCl) 5 Mg Tablet, 5 MG PO Q4HP PRN for PAIN Allergies Coded Allergies: Penicillins (Verified Allergy, Mild, HIVES, 10/17/19) doxycycline (Verified Allergy, Unknown, 03/30/19) MARILYN JEFFRIES MD Jul 06, 2020 06:54
--- NOTE | 2020-07-08 12:14 | IPN ---
DATE: 07/05/2020 SUBJECTIVE: Ritika is seen and examined this morning at the bedside. She is tearful during my visit. She is frustrated. She is concerned that she spiked a fever again last night of 101.2. Her white blood cell count has also increased and labs show ongoing deterioration of renal function with persistent hyperkalemia. She denies shortness of breath, complains of back pain, reports she was able to ambulate to the bathroom overnight without any significant dyspnea on exertion. Vital signs: Maximum temperature (T-max) 2 a.m. 101.2, current temperature (T- current) 99.4, pulse 71, respiratory rate 18, blood pressure 120/80, saturating 92% on two liters nasal cannula. Intake yesterday was one liter, urine output was 1200, net negative about 200 mL. Weight in the bed scale today is not recorded. General: Patient is seen sitting out of bed in the chair with her legs elevated. Middle-aged, obese female, tearful but in no acute distress. Extraocular muscles are intact. Tongue is moist. Neck veins are difficult to assess secondary to body habitus but do not appear elevated while she is sitting upright. Heart sounds are regular, S1, S2. There is 1+ leg edema bilaterally. Respiratory: There are diminished breath sounds at the bases. She is seen on nasal cannula. There is no accessory muscle use or tachypnea. Abdomen is soft and obese. Skin is normal temperature and turgor. Extremities are significant for leg edema bilaterally 1+. Neurologic: Awake, alert, oriented times three, interactive and conversational. LABORATORY DATA: Sodium 140, potassium 5.6, bicarbonate 21, BUN 81, creatinine 3.5, CRP has increased from 6 to 10 to today 11.1, white count has increased from 7.4 to 10.0 to today 12.3, hemoglobin 7.4, platelets 228, ESR has also increased and today is 128. Blood cultures were repeated this morning and are pending. Blood cultures from 07/03/2020 show no growth times two sets. INPATIENT MEDICATIONS: Reviewed by myself. She continues on Tylenol three times a day as needed, DuoNebs, amlodipine 10 mg by mouth daily, aspirin 81 mg by mouth daily, atorvastatin 80 mg by mouth nightly, bisoprolol 10 mg by mouth twice a day, her bumetanide was held, calcitriol 0.25 mcg Sunday, Sunday, Sunday, Aranesp subcutaneous on Sundays, Senokot, ferrous gluconate 324 mg by mouth daily, Zetia 10 mg by mouth nightly, Neurontin 100 mg by mouth twice a day, heparin 5000 units subcutaneous every 8 hours, insulin Levaquin 250 mg by mouth daily, oxycodone as needed, Miralax one packet by mouth twice a day. PROBLEMS: 1. Acute kidney injury (ROXIE) superimposed on chronic kidney disease (CKD) stage IIIB/stage IV. Patients renal function continues to worsen in the setting of probable discitis with recurrent fevers, rising leukocytosis, and ongoing elevation of markers of inflammation as well as recent nonsteroidal anti- inflammatory drug (NSAID) exposure and diuretic use for management of volume status. Her glomerular filtration rate (GFR) today is 13 and BUN has risen to 80. There are no uremic signs or symptoms but I am concerned about the persistent elevation in blood potassium level. She is being monitored closely for hemodialysis needs. Please avoid the use of any nephrotoxins in this patient including angiotensin-converting enzyme (JERMAIN), ARB, and NSAIDs. 2. Hyperkalemia secondary to acute kidney injury and recent NSAID administration. Diuretic is presently being held. I am going to give her a dose of Kayexalate and we will ensure that she is on a dietary potassium restriction. 3. Chronic diastolic congestive heart failure, mildly decompensated. Diuretics are adjusted on a daily basis and are being held today. 4. Anemia in the setting of chronic renal failure and iron deficiency. She is on oral iron supplementation. She is receiving Aranesp subcutaneously once weekly. Suggest to transfuse when the patient is agreeable. 5. Possible discitis as per primary team and infectious diseases. Patient is persistently febrile and has had rise in white blood cell count (WBC), erythrocyte sedimentation rate (ESR), and C-reactive protein (CRP). The ongoing infection also complicates her renal failure. 6. Hypertension. Blood pressures are acceptable and no changes are being made today. DISPOSITION: Suggest to transfer to higher level of care if she requires any biopsy of the spine. MTDD
== END 2020-07-05 16:14 | disposition short-term general hospital (02) | DRG 551 ==
LOC: M ED 13:08 → M ED INP 18:16 → ENRESERV 20:29 → M MSPAV 20:59 → OBSVTOIN 06-27 12:35 → M MSPAV 06-28 11:30 → M PCU 06-28 21:06 → M MSPAV 07-04 14:49
PROVIDERS: ADMIT Internal Medicine; ATTEND General Practice
DX: M46.44 Discitis, unspecified, thoracic region (principal); I50.33 Acute on chronic diastolic (congestive) heart failure; J18.9 Pneumonia, unspecified organism; I13.0 Hypertensive heart and chronic kidney disease with heart failure and stage 1 through stage 4 chronic kidney disease, or unspecified chronic kidney disease; Z68.41 Body mass index [BMI] 40.0-44.9, adult; N25.81 Secondary hyperparathyroidism of renal origin; N17.9 Acute kidney failure, unspecified; N18.4 Chronic kidney disease, stage 4 (severe); J44.1 Chronic obstructive pulmonary disease with (acute) exacerbation; E11.9 Type 2 diabetes mellitus without complications; E78.5 Hyperlipidemia, unspecified; E11.22 Type 2 diabetes mellitus with diabetic chronic kidney disease; Z98.1 Arthrodesis status; Z98.41 Cataract extraction status, right eye; Z98.42 Cataract extraction status, left eye; Z87.891 Personal history of nicotine dependence; I27.20 Pulmonary hypertension, unspecified; G47.33 Obstructive sleep apnea (adult) (pediatric); E66.9 Obesity, unspecified; Z79.82 Long term (current) use of aspirin; Z79.4 Long term (current) use of insulin; Z79.899 Other long term (current) drug therapy; Z88.0 Allergy status to penicillin; Z88.1 Allergy status to other antibiotic agents; E11.65 Type 2 diabetes mellitus with hyperglycemia; Z96.643 Presence of artificial hip joint, bilateral; E11.40 Type 2 diabetes mellitus with diabetic neuropathy, unspecified; D63.1 Anemia in chronic kidney disease; K59.00 Constipation, unspecified; Y95 Nosocomial condition

== ENCOUNTER → 2020-07-15 | Outpatient (REF) | payer MEDICARE ==
[~2020-07-15] MED LIST changes: +BISO10TA13 PO; +FERR32TA PO; +LEVO250T12 PO; +OXYC-517 PO
[2020-07-15 18:27] LABS: PERCENT SATURATION 26.9 % (13.2-45.0)
[2020-07-15 18:37] LABS: FOLATE 6.7 NG/ML
== END ==
LOC: M LAB REF 16:55
PROVIDERS: ATTEND Nurse Practitioner Family
DX: D64.9 Anemia, unspecified (principal)

== ENCOUNTER → 2020-08-24 | Outpatient (CLI) | payer MEDICARE ==
--- NOTE | 2020-08-24 10:03 | REP ---
INDICATION: OTH NONSPECIFIC ABN FINDINGS OF LUNG FIELD COMPARISON: 07/05/2020, 06/28/2020 TECHNIQUE: Axial noncontrast images from the thoracic inlet to the upper abdomen with coronal and sagittal reformations. This CT examination was performed using the following dose reduction techniques: Automated exposure control, adjustment of mA and/or kv according to the patient's size, and use of iterative reconstruction technique. FINDINGS: The bilateral lung jaquez are well aerated and essentially clear with complete resolution to the previously noted infiltrates/consolidations and pleural effusions. Only small residual area of ground-glass opacity/scarring noted in the posterior left lower lobe and trace lingular scarring are currently identified. No acute consolidation or effusion. Tracheobronchial tree is patent. No significant adenopathy noted. Mediastinum demonstrates stable moderate atherosclerotic changes to the thoracic aorta and coronary arteries without aortic aneurysm or cardiomegaly. No pericardial effusion. Evaluation of the musculoskeletal structures and specifically the thoracic spine demonstrates normal alignment and kyphosis with advanced multilevel degenerative changes specifically at the T7-8 level evidence for compression fracture or progressive destructive changes. IMPRESSION: 1. Essentially complete resolution to the previously noted pulmonary parenchymal infiltrates and pleural reactions. Adenopathy has resolved as well. No new acute mediastinal or pleuroparenchymal process appreciated. 2. Thoracic spine demonstrates stable degenerative changes and no evidence for progressive pathology at the T7-T8 level. <Electronically signed by Alden Ramon > 08/24/20 [id number]
== END ==
LOC: M RAD 08:07
PROVIDERS: ATTEND Internal Medicine Pulmonary Disease
DX: M51.34 Other intervertebral disc degeneration, thoracic region (principal)

== ENCOUNTER → 2020-09-21 | Outpatient (CLI) | payer MEDICARE ==
[~2020-09-21] MED LIST changes: -MONT10TA4 PO; +MONT5TAB2 PO
== END ==
LOC: M LABSMTC 12:15
PROVIDERS: ATTEND Family Medicine
DX: Z20.828 Contact with and (suspected) exposure to other viral communicable diseases (principal)

== ENCOUNTER → 2020-11-04 | Outpatient (REF) | payer MEDICARE, OTHER ==
[2020-11-04 10:39] LABS: CHOLESTEROL RISK RATIO 4.78 (<5)
[2020-11-04 11:48] LABS: HEMOGLOBIN A1c 10.1 %
== END ==
LOC: M SFHCPLAZ 09:01
PROVIDERS: ATTEND Family Medicine
DX: E11.22 Type 2 diabetes mellitus with diabetic chronic kidney disease (principal); E78.2 Mixed hyperlipidemia

== ENCOUNTER 2020-11-26 15:04 | Day surgery (SDC) | payer MEDICARE, OTHER, SELFPAY ==
[~2020-11-26] VITALS: Ht 149.9 cm; Wt 90.5 kg
[~2020-11-26 15:04] MED LIST changes: +ASPI-569 PO; -ASPI81TAEC PO; +MONT10TA10 PO; -MONT5TAB2 PO
[2020-11-26] MEDS ORDERED: EZET10TA21 PO (15:18)
[2020-11-26] MEDS ORDERED: CHLO25TA PO (15:18)
[2020-11-26] MEDS ORDERED: SERT25TA85 PO (15:18)
[2020-11-26] MEDS ORDERED: HYDR10TAB PO (15:18)
[2020-11-26] MEDS ORDERED: ONDANSETRON 4MG/2ML VIAL IV ONE (15:35)
[2020-11-26 16:25] LABS: BASO % 0.2 % (0.0-1.0); HEMATOCRIT 34.1 % (36.0-47.0); HEMOGLOBIN 11.2 g/dl (12.0-15.5); LYMPH # 0.7 10^3/uL (1.5-5.0); LYMPH % 7.9 % (24.0-44.0); MEAN CORPUSCULAR HEMOGLOBIN 27.9 pg (27.0-33.0); MEAN CORPUSCULAR HGB CONC 32.8 g/dl (32.0-36.5); MONO # 0.6 10^3/uL (0.0-0.8); MONO % 6.9 % (2.0-8.0); NEUTROPHILS # 7.7 10^3/uL (1.5-8.5); NEUTROPHILS % 84.6 % (36.0-66.0); PLATELET COUNT, AUTOMATED 257 10^3/uL (150-450); RED BLOOD COUNT 4.01 10^6/uL (4.00-5.40); WHITE BLOOD COUNT 9.1 10^3/uL (4.0-10.0)
--- OUTSIDE RECORDS SUMMARY | 2020-11-26 16:27 | CCD ---
Author Author [facility] Organization [facility] Address Unknown Phone Unavailable Care Team Providers Care Linux Vmware Administrator Name Role Phone Jina Nowak Unavailable PROBLEMS Type Condition ICD9-CM Code AHI62-LA Code Onset Dates Condition S tatus SNOMED Code Notes Problem Hypertension I10 Active 50470207 Problem Stage 3 chronic kidney disease N18.3 Active 4 80238767 Problem Diabetic polyneuropathy associated with type 2 d iabetes mellitus E11.42 Active 17944925 Problem Chronic diastolic heart failure I50.32 Active 227636909 Problem Obesity (BMI 30-39.9) E66.9 Active 395532616 Problem Gastroesophageal reflux disease, esophagitis pre sence not specified K21.9 Active 144273360 Problem Chronic obstructive pulmonary disease, unspecified COPD ty pe J44.9 Active 92731062 Problem 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 Active 709836104 Problem Type 2 diabetes mellitus with diabetic chronic kidney disease E11.22 Active 74822200 Problem penitentiary (current) use of insulin Z79.4 Activ e 037107628 Problem Thyroid nodule E04.1 Active 137401735 Problem History of total right hip arthroplasty Z96.641 Active 218220727813 Problem Gastroesophageal reflux dise ase, unspecified whether esophagitis present K21.9 Active 102207515 Problem MARIZA (obstructive sleep apnea) G47.33 Active 78 178247 Problem Vitamin D deficiency E55.9 Active 64284789 Problem Mixed hyperlipidemia E78.2 Active 607373895 Problem Anxiety F41.9 Active 32553959 Problem Other chronic pain G89.29 Active 59112372 ALLERGIES Allergen (clinical drug ingredient) Drug/Non Drug Allergy do cumented on EMR Reaction Allergy Type Onset Date Status Penicillin (For Allergies Use Only) Hives Drug Allerg y Active ENCOUNTERS from 1955 to 2020-10-15 Encounter Location Date Provider Diagnosis [facility] [place] [address] Oct, Jina Nowak Chronic obstructive pulmonary disease, u nspecified COPD type J44.9 ; History of COVID-19 Z86.16 ; Gastroesophageal reflux disease, unspecified whether esophagitis present K21.9 and Type 2 diabetes mellitus with diabetic chronic kidney disease E11.22 IMMUNIZATIONS Vaccine Route Administration Date Status Influenza (18 yrs & older) Flublok IM Intramuscular Jul 29, 2018 Administered Pneumococcal Adult 0.5mL (Pneumovax 23) Unknown April 21, 2018 Administered Influenza (6mo & up) Fluzone IM Intramuscular Jul 13, 2017 Ad ministered Influenza (6mo & up) Fluzone IM Intramuscular Aug 28, 2016 Ad ministered SOCIAL HISTORY Tobacco Use: Social History Observation Description Date Details (start date - stop date) Former Smoker Sex Assigned At : Social History Observation Description Sex Assigned At Unknown Audit Question Answer Notes Total Score: 1 Interpretation: Alcohol Education Language: Question Answer Notes Languages spoken: Montserratian Roman Catholic: Question Answer Notes Roman Catholic 08 Mu-Ism Sexual Hx: Question Answer Notes Had sex in the last 12 months (vaginal, oral, or anal)? No LMP: menopausal Have you ever had an STD? No Drug and Alcohol Question Answer Notes Total Score: 0 Interpretation: No problems reported Alcohol Screening: Question Answer Notes Did you have a drink containing alcohol in the past year? No Points 0 Interpretation Negative BMI Care Goal Follow-Up Question Answer Notes Above Normal BMI Follow-Up Dietary management educatio n, guidance, and counseling Tobacco Use: Question Answer Notes Are you a: former smoker How long has it been since you last smoked? > 10 years REASON FOR REFERRAL No Information VITAL SIGNS Weight 197 lbs Oct, Height 60 in Oct, BMI 38.47 kg/m2 Oct, Heart Rate 77 /min Oct, Respiratory Rate 20 /min Oct, Temperature 97 degrees Fahrenheit Oct, Oximetry 96 Oct, Blood pressure systolic 120 mm Hg Oct, Blood pressure diastolic 70 mm Hg Oct, MEDICATIONS Medication SIG (Take, Route, Frequency, Duration) Notes Start Da te End Date Status Ferrous Sulfate 325 (65 Fe) MG 1 tablet Orally Once a day Not-Taking Serevent Diskus 50 MCG/DOSE 1 puff Inhalation Twice a day Active Pen [place] 31G X 6 MM as directed DX. E11.9 Once daily as directed for 30 Active Glucometer as directed Dx E11.9 Dec, Ac tive Gabapentin 100 MG 1 capsule Orally bid for 30 day(s) 2019 Active OneTouch Verio - DIRECTED DAILY In Vitro three times daily Active Incruse Ellipta 62.5 MCG/INH 1 puff Inhalation Once a day Active Trulicity 1.5 MG/0.5ML 0.5 ml Subcutaneous weekly Not-Taking FreeStyle Margie Sensor System - as directed Dx E11.22 2020 Active Ipratropium-Albuterol 0.5-2.5 (3) MG/3ML 3 ml Inhalation bid Nov, Active Glucose Meter Test - as directed In Vitro Daily dx. E11.9 Mar, Active Levemir FlexTouch 100 UNIT/ML 34 units Subcutaneous Daily Active Chlorthalidone 25 MG 1 tablet in the morning with food Orally Once a day Active Calcitriol 0.25 MCG 1 capsule Orally Once a day for 30 day(s) Active Cyclobenzaprine HCl 5 MG 1 tablet as needed for back spasm Orally bid for 30 day(s) Jul, Active Atorvastatin Calcium 80 MG 1 tablet Orally Once a day for 30 Active Zetia 10 MG 1 tablet Orally Once a day Active Sertraline HCl 25 MG 1 tablet Orally Once a day for 30 Active Pantoprazole Sodium 20 MG 1 tablet Orally Once a day for 30 day( s) Oct, Active Arnuity Ellipta 200 MCG/ACT 1 puff Inhalation Once a day Active Bumetanide 1 MG 1 tab Orally once daily Active FreeStyle Margie [place] - as directed Dx E11.22 Oct, Active NovoLog Flexpen 100 UNIT/ML as directed Subcutaneous 2 units before each meal;plus sliding scale MDD__#6 Active Vitamin D3 High Potency 50,000 wkly Active HydrALAZINE HCl 10 MG 2 tablets Orally every 6 hrs Nov, Not-Taking AmLODIPine Besylate 2.5 MG 1 tablet Orally Daily Active Acetaminophen 500 MG 2 tablets Orally three times daily as neede d MDD 3000mg Active HydrALAZINE HCl 10 MG 1 tablet with food Orally twice a day Active Ventolin HFA 108 (90 Base) MCG/ACT 2 puffs Inhalation every 4 hours as needed for SOB 20 Nov, 2019 Active Bisoprolol Fumarate 10 MG TAKE ONE TABLET BY MOUTH VERÓNICA DAY Orally Once a day for 30 Active Aspirin Adult Low Dose 81 MG 1 tablet Orally Once a day Active PROCEDURES No Information RESULTS No Results REASON FOR VISIT follow up, released by [facility] after being COVID+, wants to check everything and make sure she's okay MEDICAL (GENERAL) HISTORY Type Description Date Medical History Hypertension - Dr. Duenas; Stress test 12/2016 Medical History Hyperlipidemia Medical History Diabetes mellitus type 2 wit h diabetic neuropathy and renal failure, insulin dependent Medical History Osteoarthritis Medical History Depression Medical History Diastolic Heart Failure Grade 1, LVEF 75 % ECHO 03/2018 Medical History Chronic kidney disease stage III - Dr. Sabine Mandujano Medical History Liver Hemanginoma MRI 01/2018, 4 mm, repe at u/s 6 months Medical History Pap smears: [facility] at [facility] Medical History Mammograms: Due in October Medical History MARIZA - sometimes uses CPAP Medical History COPD - Dr. Castaneda/Franky Hough Surgical History tubal ligation Surgical History left and right inquinal hernia Surgical History (plate and screws neck) Surgical History Left Cataract 11/2016 Surgical History Left total hip 12/2016 Surgical History Left breast steretotactic needle biopsy: fibroadenoma 05/2016 Surgical History Right hip Sx, [place] 01/15/1912/2018 Hospitalization History see surgeries above 12/2016 Hospitalization History bronchitis, elevated BS 08/2017 Hospitalization History elevated b/p 12/2017 Hospitalization History pneumonia 03/18 Hospitalization History [facility]-11 days PNA with COPD exacerbati on 04/12/18 Hospitalization History pneumonia 03/30/2019 Hospitalization History chf exacerbation 11/2019 Hospitalization History pneumonia 07/2020 Goals Section No Information Health Concerns No Information MEDICAL EQUIPMENT No Information MENTAL STATUS No Information FUNCTIONAL STATUS No Information ASSESSMENTS Encounter Date Diagnosis Assessment Notes Treatment Notes Treatm ent Clinical Notes Oct, Chronic obstructive pulmonar y disease, unspecified COPD type (ICD- 10 - J44.9) Breathing and coughing is at her baseline; did not get any COPD exacerbation with COVID19. 13 Oct, 2020 History of COVID-19 (ICD-10 - Z86.16) Has some residual fatigue, otherwise symptoms have resolved. 13 Marques, 2021 Gastroesophageal reflux dise ase, unspecified whether esophagitis present (ICD-10 - K21.9) Advised to take PPI on a empty stomach in the morning; wait 30 min to eat or drink or take other medications. Advised to take x 2 weeks and then try to stop. Oct, Type 2 diabetes mellitus wit h diabetic chronic kidney disease (ICD- 10 - E11.22) PLAN OF TREATMENT Medication Medication Name Sig Start Date Stop Date FreeStyle Margie [place] - as directed Dx E11.22 Oct, Pantoprazole Sodium 20 MG 1 tablet Orally Once a day for 30 day( s) Oct, FreeStyle Margie Sensor System - as directed Dx E11.22 Oct, Treatment Notes Assessment Notes Clinical Notes Chronic obstructive pulmonary disease, unspecified COPD type Breathing and coughing is at her baseline; did not get any COPD exacerbation with COVID19. History of COVID-19 Has some residual fa tigue, otherwise symptoms have resolved. Gastroesophageal reflux disease, unspecified whether esophag itis present Advised to take PPI on a empty stomach in the morning; wait 30 min to eat or drink or take other medications. Advised to take x 2 weeks and then try to stop. Next Appt Details as sched 11/2020 Reason: Provider Name:Jina Nowak, 2020-11-04 08:00:00 AM, [address] [place], [address], Insurance Providers Payer Name Payer Address Payer Phone Insured Name Patient Relati onship to Insured Coverage Start Date Coverage End Date SELF PAY ONLY - SP1 CELI JOHNSON
--- OUTSIDE RECORDS SUMMARY | 2020-11-26 16:27 | CCD | Continuity of Care Document ---
Author Author Ritika VALERA M.D. Organization Unknown Address [address] [place] [address] Phone [phone] Care Team Providers Care Serology Technician Name Role Phone Jina Nowak MD AUTM [phone] Problems Active Problems Provider Date Tremor Jese Valera M.D. Onset: 09/09/2020 Paresthesia Jese Valera M.D. Onset: 09/09/2020 Social History Type Date Description Comments Sex Unknown Tobacco Use Start: Unknown Patient has never smoked Allergies, Adverse Reactions, Alerts Active Allergies Reaction Severity Comments Date Penicillin V 09/09/2020 Medications Active Medications SIG Qnty Indications Ordering Provide r Date Gabapentin 100mg Capsules Patient takes twice a day 90caps Jese aVlera M.D. Immunizations Description No Information Available Vital Signs Date Vital Result Comment 09/09/2020 8:34am Respiratory Rate 12 /min Height 59 inches 4'11" Weight 198.00 lb BMI (Body Mass Index) 40.0 kg/m2 [place] Body Weight 100 lb Results Description No Information Available Procedures Description No Information Available Medical Devices Description No Information Available Encounters Type Date Location Provider Dx Diagnosis Office Visit 09/09/2020 8:00a Main office - [facility] Jese milligan M.D. G25.0 Essential tremor G25.1 Drug-induced tremor E11.40 Type 2 diabetes mellitus wit h diabetic neuropathy, unsp E11.59 Type 2 diabetes mellitus wit h oth circulatory complications Assessments Date Code Description Provider 09/09/2020 G25.0 Essential tremor Jese Valera M.D. 09/09/2020 G25.1 Drug-induced tremor Jese milligan M.D. 09/09/2020 E11.40 Type 2 diabetes kristin itus with diabetic neuropathy, unspecified Jese Valera M.D. 09/09/2020 E11.59 Type 2 diabetes mellitus with ot her circulatory complications Jese Valera M.D. Plan of Treatment Future Appointment(s):* 12/17/2020 9:30 am - Jese Valera M.D. at Main office - [facility] Functional Status Description No Information Available Mental Status Description No Information Available Referrals Description No Information Available
--- OUTSIDE RECORDS SUMMARY | 2020-11-26 16:27 | CCD ---
Author Author [facility] Organization [facility] Address Unknown Phone Unavailable Care Team Providers Care Lens Cementer Name Role Phone Jina Nowak Unavailable PROBLEMS Type Condition ICD9-CM Code [id number] Code Onset Dates Condition S tatus SNOMED Code Notes Problem Diabetic polyneuropathy associated with type 2 d iabetes mellitus E11.42 Active 10816594 Problem Hypertension I10 Active 53946268 Problem Obesity (BMI 30-39.9) E66.9 Active 590601536 Problem Stage 3 chronic kidney disease N18.3 Active 4 61402436 Problem Chronic obstructive pulmonary disease, unspecified COPD ty pe J44.9 Active 67951711 Problem Chronic diastolic heart failure I50.32 Active 476060925 Problem History of total right hip arthroplasty Z96.641 Active 917650946525 Problem 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 Active 629905834 Problem Type 2 diabetes mellitus with diabetic chronic kidney disease E11.22 Active 10247415 Problem Anxiety F41.9 Active 33801839 Problem MARIZA (obstructive sleep apnea) G47.33 Active 78 918310 Problem Other chronic pain G89.29 Active 88129438 Problem Gastroesophageal reflux disease, esophagitis pre sence not specified K21.9 Active 379348674 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.4 Activ e 302539221 Problem Vitamin D deficiency E55.9 Active 38285276 Problem Mixed hyperlipidemia E78.2 Active 117793885 Problem Thyroid nodule E04.1 Active 020267231 ALLERGIES Allergen (clinical drug ingredient) Drug/Non Drug Allergy do cumented on EMR Reaction Allergy Type Onset Date Status Penicillin (For Allergies Use Only) Hives Drug Allerg y Active ENCOUNTERS from 1955 to 2020-09-21 Encounter Location Date Provider Diagnosis [facility] [place] [address] Aug, Jina Nowak IMMUNIZATIONS Vaccine Route Administration Date Status Influenza [...] Education Language: Question Answer Notes Languages spoken: Pakistani Cheondoism: Question Answer Notes Cheondoism 08 Anabaptism Sexual Hx: Question Answer Notes Had sex [...] REASON FOR REFERRAL No Information VITAL SIGNS No information MEDICATIONS Medication SIG (Take, Route, Frequency, Duration) Notes Start Da te End Date Status Ferrous Sulfate 325 (65 Fe) MG 1 tablet Orally Once a day Not-Taking Zetia 10 MG 1 tablet Orally Once a day Active Incruse Ellipta 62.5 MCG/INH 1 puff Inhalation Once a day Active Trulicity 1.5 MG/0.5ML 0.5 ml Subcutaneous weekly Not-Taking Ipratropium-Albuterol 0.5-2.5 (3) MG/3ML 3 ml Inhalation bid Nov, Active Bisoprolol Fumarate 10 MG TAKE ONE TABLET BY MOUTH VERÓNICA DAY Orally Once a day for 30 Active Levemir FlexTouch 100 UNIT/ML 34 units Subcutaneous Daily Active HydrALAZINE HCl 10 MG 2 tablets Orally every 6 hrs Nov, Not-Taking Cyclobenzaprine HCl 5 MG 1 tablet as needed for back spasm Orally bid for 30 day(s) Jul, Active Aspirin Adult Low Dose 81 MG 1 tablet Orally Once a day Active Sertraline HCl 25 MG 1 tablet Orally Once a day for 30 day(s) Jul, Active Atorvastatin Calcium 80 MG 1 tablet Orally Once a day for 30 Active Glucometer as directed Dx E11.9 Dec, Ac tive Chlorthalidone 25 MG 1 tablet in the morning with food Orally Once a day Active Glucose Meter Test - as directed In Vitro Daily dx. E11.9 Mar, Active Ventolin HFA 108 (90 Base) MCG/ACT 2 puffs Inhalation every 4 hours as needed for SOB Nov, Active NovoLog Flexpen 100 UNIT/ML as directed Subcutaneous 2 units before each meal;plus sliding scale MDD__#6 Active OneTouch Verio - DIRECTED DAILY In Vitro three times daily Active HydrALAZINE HCl 10 MG 1 tablet with food Orally twice a day Active Arnuity Ellipta 200 MCG/ACT 1 puff Inhalation Once a day Active Bumetanide 1 MG 1 tab Orally once daily Active Serevent Diskus 50 MCG/DOSE 1 puff Inhalation Twice a day Active Gabapentin 100 MG 1 capsule Orally bid for 30 day(s) 2019 Active Vitamin D3 High Potency 50,000 wkly Active AmLODIPine Besylate 2.5 MG 3 tabs Orally Daily for 30 Active Pen [place] 31G X 6 MM as directed DX. E11.9 Once daily as directed for 30 Active Acetaminophen 500 MG 2 tablets Orally three times daily as neede d MDD 3000mg Active Calcitriol 0.25 MCG 1 capsule Orally Once a day for 30 day(s) Active PROCEDURES No Information RESULTS No Results REASON FOR VISIT cold symptoms MEDICAL (GENERAL) HISTORY Type Description Date Medical [...] Medical History Pap smears: [facility] Medical History Mammograms: Due in October Medical History MARIZA - sometimes uses CPAP Medical History COPD - Dr. Castaneda/Franky Hough Surgical History tubal ligation Surgical History left and right inquinal hernia Surgical History (plate and screws neck) Surgical History Left Cataract 11/2016 Surgical History Left total hip 12/2016 Surgical History Left breast steretotactic needle biopsy: fibroadenoma 05/2016 Surgical History Right hip Sx, [place] 01/15/1912/2018 Hospitalization History see surgeries above 12/2016 [...] No Information FUNCTIONAL STATUS No Information ASSESSMENTS No Information PLAN OF TREATMENT Medication Medication Name Sig Start Date Stop Date Bisoprolol Fumarate 10 MG TAKE ONE TABLET BY MOUTH VERÓNICA RY DAY Orally Once a day for 30 Atorvastatin Calcium 80 MG 1 tablet Orally Once a day for 30 Next Appt Details Provider Name:Jina Nowak, 2020-11-04 08:00:00 AM, [facility] [place], [address], Insurance Providers Payer Name Payer Address Payer Phone Insured Name Patient Relati onship to Insured Coverage Start Date Coverage End Date [employer] MEDICARE A[employer] INSURANCE [employer] [address] [facility] [id number] CELI JOHNSON self
--- OUTSIDE RECORDS SUMMARY | 2020-11-26 16:27 | CCD | Continuity of Care Document ---
Author Author Ritika STRINGER Organization Unknown Address [address] [place] [address] Phone [phone] Care Team Providers Care Injection Molding Process Technician Name Role Phone Jina Nowak MD AUTM [phone] Problems Active Problems Provider Date Tremor Jese Moreno M.D. Onset: 09/09/2020 Paresthesia Jese Moreno M.D. Onset: 09/09/2020 Social History Type Date Description Comments Sex Unknown Tobacco Use Start: Unknown Patient has never smoked Allergies, Adverse Reactions, Alerts Active Allergies Reaction Severity Comments Date Penicillin V 09/09/2020 Medications Active Medications SIG Qnty Indications Ordering Provide r Date Gabapentin 100mg Capsules Patient takes twice a day 90caps Jese Moreno M.D. Immunizations Description No Information Available Vital Signs Date Vital Result Comment 09/09/2020 8:34am Respiratory Rate 12 /min Height 59 inches 4'11" Weight 198.00 lb BMI (Body Mass Index) 40.0 kg/m2 [place] Body Weight 100 lb Results Test Acquired Date Facility Test Result H/L Range Note Thyroid Panel 09/09/2020 [facility] Thyroxine (T4) 7.7 g/dL 4.5-12.0 1 T3 Uptake 25 % 24-39 Free Thyroxine Index 1.9 1.2-4.9 Vitamin B12 And Folate 09/09/2020 [facility] Vitamin B12 619 pg/mL 232-1245 Folate (Folic Acid), Serum 10.6 ng/mL >3.0 2 Vitamin E 09/09/2020 [facility] Vitamin E(Alpha Tocopherol) 11.0 mg/L 9.0-29.0 Vitamin E(Gamma Tocopherol) 1.7 mg/L 0.5-4.9 3 Laboratory test finding 09/09/2020 [facility] Thyroxine (T4) Free, Direct, S 1.15 ng/dL 0.82-1.77 TSH 2.310 uIU/mL 0.450-4.500 Vitamin B6, Plasma 5.3 ug/L 2.0-32.8 Vitamin B1 (Thiamine), Blood 138.3 nmol/L 66.5-200.0 PDF [id number] SEE IMAGE 1 A courtesy copy of this repo rt has been sent to [phone], the patient Test(s) 257341-Hmdavmv E(Alpha Tocopherol); 323892- Vitamin E(Gamma Tocopherol); 535583-Vctkxng B6; 314416- Vit. B1, Whole Blood was developed and its performance characteristics determined by [facility]. It has not been cleared or approved by the Food and Drug Administration. 2 A serum folate concentration of less than 3.1 ng/mL is considered to represent clinical deficiency. 3 Reference intervals for alph a and gamma-tocopherol determined from National Health and Nutrition Examination Survey, 9617-3691. Individuals with alpha-tocopherol levels less than 5.0 mg/L are considered vitamin E deficient. Procedures Description No Information Available Medical Devices Description No Information Available Encounters Type Date Location Provider Dx Diagnosis Office Visit 09/09/2020 8:00a [facility] Jese milligan M.D. G25.0 Essential tremor G25.1 Drug-induced tremor E11.40 Type 2 diabetes mellitus wit h diabetic neuropathy, unsp E11.59 Type 2 diabetes mellitus wit h oth circulatory complications Assessments Date Code Description Provider 09/09/2020 G25.0 Essential tremor Jese Moreno M.D. 09/09/2020 G25.1 Drug-induced tremor Jese milligan M.D. 09/09/2020 E11.40 Type 2 diabetes kristin itus with diabetic neuropathy, unspecified Jese Moreno M.D. 09/09/2020 E11.59 Type 2 diabetes mellitus with ot her circulatory complications Jese Moreno M.D. Plan of Treatment Future Appointment(s):* 12/17/2020 9:30 am - Jese Moreno M.D. at Main office [facility] Functional Status Description No Information Available Mental Status Description No Information Available Referrals Description No Information Available
--- OUTSIDE RECORDS SUMMARY | 2020-11-26 16:27 | CCD ---
Author Author [facility] Organization [facility] Address Unknown Phone Unavailable Care Team Providers Care Recreation Technician Name Role Phone Jina Nowak Unavailable PROBLEMS Type Condition ICD9-CM Code VRB26-OB Code Onset Dates Condition S tatus SNOMED Code Notes Problem Diabetic polyneuropathy associated with type 2 d iabetes mellitus E11.42 Active 08783880 Problem Hypertension I10 Active 47452913 Problem Obesity (BMI 30-39.9) E66.9 Active 787909704 Problem Stage 3 chronic kidney disease N18.3 Active 4 56456146 Problem Chronic obstructive pulmonary disease, unspecified COPD ty pe J44.9 Active 52997699 Problem Chronic diastolic heart failure I50.32 Active 663763557 Problem History of total right hip arthroplasty Z96.641 Active 908058109443 Problem 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 Active 224576853 Problem Type 2 diabetes mellitus with diabetic chronic kidney disease E11.22 Active 75209323 Problem Anxiety F41.9 Active 93260100 Problem MARIZA (obstructive sleep apnea) G47.33 Active 78 979251 Problem Other chronic pain G89.29 Active 25971172 Problem Gastroesophageal reflux disease, esophagitis pre sence not specified K21.9 Active 625147028 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 [place] [address] Oct, Jina Nowak IMMUNIZATIONS Vaccine Route Administration Date [...] Education Language: Question Answer Notes Languages spoken: Vincentian Amish: Question Answer Notes Amish 08 Yarsanism Sexual Hx: Question Answer Notes Had sex [...] Notes Start Da te End Date Status Incruse Ellipta 62.5 MCG/INH 1 puff Inhalation Once a day Active Trulicity 1.5 MG/0.5ML 0.5 ml Subcutaneous weekly Not-Taking Serevent Diskus 50 MCG/DOSE 1 puff Inhalation Twice a day Active Arnuity Ellipta 200 MCG/ACT 1 puff Inhalation Once a day Active Levemir FlexTouch 100 UNIT/ML 34 units Subcutaneous Daily Active HydrALAZINE HCl 10 MG 2 tablets Orally every 6 hrs Nov, Not-Taking Ferrous Sulfate 325 (65 Fe) MG 1 tablet Orally Once a day Not-Taking Zetia 10 MG 1 tablet Orally Once a day Active Cyclobenzaprine HCl 5 MG 1 tablet as needed for back spasm Orally bid for 30 day(s) Jul, Active Ipratropium-Albuterol 0.5-2.5 (3) MG/3ML 3 ml Inhalation bid Nov, Active Bisoprolol Fumarate 10 MG TAKE ONE TABLET BY MOUTH VERÓNICA DAY Orally Once a day for 30 Active Sertraline HCl 25 MG 1 tablet Orally Once a day for 30 Active Glucometer as directed Dx E11.9 Dec, Ac tive Chlorthalidone 25 MG 1 tablet in the morning with food Orally Once a day Active OneTouch Verio - DIRECTED DAILY In Vitro three times daily Active HydrALAZINE HCl 10 MG 1 tablet with food Orally twice a day Active NovoLog Flexpen 100 UNIT/ML as directed Subcutaneous 2 units before each meal;plus sliding scale MDD__#6 Active Atorvastatin Calcium 80 MG 1 tablet Orally Once a day for 30 Active Aspirin Adult Low Dose 81 MG 1 tablet Orally Once a day Active Ventolin HFA 108 (90 Base) MCG/ACT 2 puffs Inhalation every 4 hours as needed for SOB Nov, Active Bumetanide 1 MG 1 tab Orally once daily Active Glucose Meter Test - as directed In Vitro Daily dx. E11.9 Mar, Active Gabapentin 100 MG 1 capsule Orally bid for 30 day(s) 2019 Active Vitamin D3 High Potency 50,000 wkly Active Acetaminophen 500 MG 2 tablets Orally three times daily as neede d MDD 3000mg Active AmLODIPine Besylate 2.5 MG 3 tabs Orally Daily for 30 Active Calcitriol 0.25 MCG 1 capsule Orally Once a day for 30 day(s) Active Pen Boring 31G X 6 MM as directed DX. E11.9 Once daily as directed for 30 Active PROCEDURES No Information RESULTS No Results REASON FOR VISIT follow up MEDICAL (GENERAL) HISTORY Type Description Date Medical [...] Medical History Pap smears: [facility] Sloan at [facility] Medical History Mammograms: Due in October Medical History MARIZA - sometimes uses CPAP Medical History COPD - Dr. Castaneda/Franky Hough Surgical History tubal ligation Surgical History left and right inquinal hernia Surgical History (plate and screws neck) Surgical History Left Cataract 11/2016 Surgical History Left total hip 12/2016 Surgical History Left breast steretotactic needle biopsy: fibroadenoma 05/2016 Surgical History Right hip Sx, [place] 01/15/1912/2018 Hospitalization History see surgeries above 12/2016 [...] Medication Name Sig Start Date Stop Date Sertraline HCl 25 MG 1 tablet Orally Once a day for 30 Pen Boring 31G X 6 MM as directed DX. E11.9 Once daily as direc ricki for 30 Bisoprolol Fumarate 10 MG TAKE ONE TABLET BY MOUTH VERÓNICA RY DAY Orally Once a day for 30 Atorvastatin Calcium 80 MG 1 tablet Orally Once a day for 30 Next Appt Details Provider Name:Jina Nowak, 2020-10-12 08:15:00 AM, [address] [place] [address], [phone], Provider Name:Jina Nowak, 2020-11-04 08:00:00 AM, [address] [place] [address], [phone], Insurance Providers Payer Name Payer Address Payer Phone Insured Name Patient Relati onship to Insured Coverage Start Date Coverage End Date AETNA MEDICARE AETNA [employer] INSURANCE [place] [address] [facility] [phone] CELI JOHNSON
--- OUTSIDE RECORDS SUMMARY | 2020-11-26 16:27 | CCD ---
Author Author [facility] Organization [facility] Address Unknown Phone Unavailable Care Team Providers Care Marine Geologist Name Role Phone Jina Nowak Unavailable PROBLEMS Type Condition ICD9-CM Code [id number] Code Onset Dates Condition S tatus W/U Status Risk SNOMED Code Notes Problem Hypertension I10 Active confirmed 3198704 3 Problem Stage 3 chronic kidney disease N18.3 Active confir med 717649670 Problem Diabetic polyneuropathy associated with type 2 d iabetes mellitus E11.42 Active confirmed 57181066 Problem Chronic diastolic heart failure I50.32 Active confi rmed 357975799 Problem Obesity (BMI 30-39.9) E66.9 Active confirmed 504127079 Problem Gastroesophageal reflux disease, esophagitis pre sence not specified K21.9 Active confirmed 208061856 Problem Chronic obstructive pulmonary disease, unspecified COPD ty pe J44.9 Active confirmed 38933020 Problem 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 Active confirmed 043139877 Problem Type 2 diabetes mellitus with diabetic chronic kidney disease E11.22 Active confirmed 12022160 Problem USP (current) use of insulin Z79.4 Activ e confirmed 407734957 Problem Thyroid nodule E04.1 Active confirmed 63467 5005 Problem History of total right hip arthroplasty Z96.641 Active confirmed 773913121319 Problem Gastroesophageal reflux dise ase, unspecified whether esophagitis present K21.9 Active confirmed 693738843 Problem MARIZA (obstructive sleep apnea) G47.33 Active confirm ed 55200964 Problem Vitamin D deficiency E55.9 Active confirmed 64399808 Problem Mixed hyperlipidemia E78.2 Active confirmed 832536689 Problem Anxiety F41.9 Active confirmed 86269241 Problem Other chronic pain G89.29 Active confirmed 8 7618638 ALLERGIES Allergen (clinical drug ingredient) Drug/Non Drug Allergy do cumented on EMR Reaction Allergy Type Onset Date Status Penicillin (For Allergies Use Only) Hives Drug Allerg y Active ENCOUNTERS from 1955 to 2020-11-06 Encounter Location Date Provider Diagnosis [facility] Jarrell [address] [place] [phone] Nov, Jina Nowak Type 2 diabetes mellitus with diabetic c hronic kidney disease E11.22 ; USP (current) use of insulin Z79.4 ; Anxiety F41.9 ; Mixed hyperlipidemia E78.2 ; Encounter for screening mammogram for malignant neoplasm of breast Z12.31 and Colon cancer screening Z12.11 IMMUNIZATIONS Vaccine Route Administration Date Status Influenza [...] Education Language: Question Answer Notes Languages spoken: Senegalese Alevism: Question Answer Notes Alevism 08 [employer] Sexual Hx: Question Answer Notes Had sex [...] FOR REFERRAL No Information VITAL SIGNS Weight 201 lbs Nov, Height 60 in Nov, BMI 39.25 kg/m2 Nov, Heart Rate 74 /min Nov, Respiratory Rate 20 /min Nov, Temperature 97.3 degrees Fahrenheit Nov, Oximetry 94 04 Nov, 2020 Blood pressure systolic 122 mm Hg Nov, Blood pressure diastolic 68 mm Hg Nov, MEDICATIONS Medication SIG (Take, Route, Frequency, Duration) Notes Start Da te End Date Status Zetia 10 MG 1 tablet Orally Once a day Active Ferrous Sulfate 325 (65 Fe) MG 1 tablet Orally Once a day Not-Taking FreeStyle Margie Sensor System - as directed Dx E11.22 2020 Active Glucose Meter Test - as directed In Vitro Daily dx. E11.9 Mar, Active AmLODIPine Besylate 2.5 MG 1 tablet Orally Daily Active Gabapentin 100 MG 1 capsule Orally bid for 90 days Dec, Active HydrALAZINE HCl 10 MG 2 tablets Orally every 6 hrs Nov, Not-Taking Aspirin Adult Low Dose 81 MG 1 tablet Orally Once a day Active Ipratropium-Albuterol 0.5-2.5 (3) MG/3ML 3 ml Inhalation bid Nov, Active OneTouch Verio - DIRECTED DAILY In Vitro three times daily Active Vitamin D3 High Potency 50,000 wkly Active Glucometer as directed Dx E11.9 Dec, Ac tive Chlorthalidone 25 MG 1 tablet in the morning with food Orally Once a day Active Ventolin HFA 108 (90 Base) MCG/ACT 2 puffs Inhalation every 4 hours as needed for SOB Nov, Active Pen [place] 31G X 6 MM as directed DX. E11.9 Once daily as directed for 30 Active Bisoprolol Fumarate 10 MG TAKE ONE TABLET BY MOUTH DAY Orally Once a day for 30 Active Trulicity 1.5 MG/0.5ML 0.5 ml Subcutaneous weekly Active Pantoprazole Sodium 20 MG 1 tablet Orally Once a day for 30 day( s) Oct, Not-Taking FreeStyle Margie [place] - as directed Dx E11.22 Oct, Active Sertraline HCl 25 MG 1 tablet Orally Once a day for 90 days Active Serevent Diskus 50 MCG/DOSE 1 puff Inhalation Twice a day Active Cyclobenzaprine HCl 5 MG 1 tablet as needed for back spasm Orally bid for 30 day(s) Jul, Not-Taking Bumetanide 1 MG 1 tab Orally once daily Active Levemir FlexTouch 100 UNIT/ML 34 units Subcutaneous Daily Active Acetaminophen 500 MG 2 tablets Orally three times daily as neede d MDD 3000mg Active NovoLog Flexpen 100 UNIT/ML carb coverage 1 unit:10 g of carbs; plus sliding scale Subcutaneous QID; MDD _#40 Active Atorvastatin Calcium 80 MG 1 tablet Orally Once a day for 30 Active HydrALAZINE HCl 10 MG 1 tablet with food Orally twice a day Active Calcitriol 0.25 MCG 1 capsule on sunday,sunday Orally Once a d ay Active Arnuity Ellipta 200 MCG/ACT 1 puff Inhalation Once a day Active Incruse Ellipta 62.5 MCG/INH 1 puff Inhalation Once a day Active PROCEDURES No Information RESULTS Component Value Reference Range HEMOGLOBIN A1c Reviewed date:11/04/2020 12:41:33 Interpretation: Performing Lab:[facility] LABORAT[facility] [address] [facility] [address] , ,[place] [address] HEMOGLOBIN A1c 10.1 ESTIMATED AVERAGE GLUCOSE 243 60-110 LIPID PANEL (CARDIAC RISK) Reviewed date:11/04/2020 12:41:42 Interpretation: Performing Lab:[facility] [address] [facility] [address] , ,[place] [address] TRIGLYCERIDES LEVEL 306 <150 CHOLESTEROL LEVEL 196 <200 HDL CHOLESTEROL 41 >40 LDL CHOLESTEROL 94 <100 NON-HDL-C 155 CHOLESTEROL RISK RATIO 4.780 <5 REASON FOR VISIT F/u DM2 MEDICAL (GENERAL) HISTORY Type Description Date Medical [...] Medical History Pap smears: Mayo Sloan at [facility] Medical History Mammograms: Due in [...] fibroadenoma 05/2016 Surgical History Right hip Sx, [place] 01/15/1912/2018 Hospitalization History see surgeries above 12/2016 [...] Notes Treatment Notes Treatm ent Clinical Notes Nov, Type 2 diabetes mellitus wit h diabetic chronic kidney disease (ICD- 10 - E11.22) She is starting to have vision problems due to uncontrolled glucose. She is very motivated to get sugars under control. Glucose readings are quite labile; I think this is due to her unusual insulin dosing regimen that she was started on by Jaz. After extensive discussion, she wants to try carb counting with sliding scale. I left sliding scale the same and advised her to start with 1 unit of insulin per 10 g of carbs. We had a long discussion about carb counting, checking labels, and carb averages in unlabeled foods. I provided her with multiple handouts on carb counting, sample diets, and approximate carbs in different foods. I will also [facility] - she has seen Katy in the past. Nov, USP (current) use of insulin (ICD-10 - Z79 .4) Nov, Anxiety (ICD-10 - F41.9) Nov, Mixed hyperlipidemia (ICD-10 - E78.2) Nov, Encounter for screening mamm ogram for malignant neoplasm of breast (ICD-10 - Z12.31) Overdue for mammogram - she agrees to schedule this. She verbalized understanding that the purpose of a mammogram is to detect breast cancer early when it may be easier to treat, and that the risks of not completing screening include advanced breast cancer and premature . Nov, Colon cancer screening (ICD-10 - Z12.11) I recommended colorectal cancer screening and discussed options, including annual iFob, Cologuard every 3 years, or colonoscopy every 10 years. I discussed risks and benefits of each option. She elected Cologuard. No family history of colon cancer or rectal bleeding Nov, Other Total time spen t on visit: 47 minutes (36 minutes spent with patient and her son, 11 minutes spent preparing for visit and completing documentaiton) PLAN OF TREATMENT Medication Medication Name Sig Start Date Stop Date NovoLog Flexpen 100 UNIT/ML carb coverage 1 unit:10 g of carbs; plus sliding scale Subcutaneous QID; MDD _#40 Levemir FlexTouch 100 UNIT/ML 34 units Subcutaneous Daily Trulicity 1.5 MG/0.5ML 0.5 ml Subcutaneous weekly Treatment Notes Assessment Notes Clinical Notes Type 2 diabetes mellitus with diabetic chronic kidney diseas e She is starting to have vision problems due to uncontrolled glucose. She is very motivated to get sugars under control. Glucose readings are quite labile; I think this is due to her unusual insulin dosing regimen that she was started on by Jaz. After extensive discussion, she wants to try carb counting with sliding scale. I left sliding scale the same and advised her to start with 1 unit of insulin per 10 g of carbs. We had a long discussion about carb counting, checking labels, and carb averages in unlabeled foods. I provided her with multiple handouts on carb counting, sample diets, and approximate carbs in different foods. I will also refer [facility] - she has seen Katy in the past. Encounter for screening mammogram for malignant neoplasm of breast Overdue for mammogram - she agrees to schedule this. She verbalized understanding that the purpose of a mammogram is to detect breast cancer early when it may be easier to treat, and that the risks of not completing screening include advanced breast cancer and premature . Colon cancer screening I recommended col orectal cancer screening and discussed options, including annual iFob, Cologuard every 3 years, or colonoscopy every 10 years. I discussed risks and benefits of each option. She elected Cologuard. No family history of colon cancer or rectal bleeding Future Test Test Name Order Date Cologuard (Send Out Only) [id number] [facility] Gregory Screening Bilateral (Ultrasound if Indicated ) (3D Mammo) [id number] Next Appt Details 1 month Reason:F/u DM2 Provider Name:Jina Nowak, 2020-12-02 02:15:00 PM, [address] [place], [phone], Follow Up:1 monthF/u DM2 Insurance Providers Payer Name Payer Address Payer Phone Insured Name Patient Relati onship to Insured Coverage Start Date Coverage End Date AETNA MEDICARE AETNA [employer] INSURANCE [place] [address] [facility] [phone] CELI JOHNSON self SELF PAY ONLY - SP1 CELI JOHNSON self
--- OUTSIDE RECORDS SUMMARY | 2020-11-26 16:27 | CCD | Continuity of Care Document ---
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 B1, Whole Blood was developed and its performance characteristics determined by [facility]. It has not been cleared or approved by the Food and Drug Administration. 2 A serum folate concentration of less than 3.1 ng/mL is considered to represent clinical deficiency. 3 Reference intervals for alph a and gamma-tocopherol determined from National Health and Nutrition Examination Survey, 5332-3141. Individuals with alpha-tocopherol levels less than 5.0 mg/L are considered vitamin E deficient. Procedures Description No Information Available Medical Devices Description No Information Available Encounters Type Date Location Provider Dx Diagnosis Office Visit 09/09/2020 8:00a [facility] Jese milligan M.D. G25.0 Essential tremor G25.1 [...] - Jese Moreno M.D. at Main office [facility] Functional Status Description No Information Available Mental Status Description No Information Available Referrals Description No Information Available
--- OUTSIDE RECORDS SUMMARY | 2020-11-26 16:27 | CCD ---
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 Role Phone Jina Nowak Unavailable PROBLEMS Type Condition ICD9-CM Code IBF54-AS Code Onset Dates Condition S tatus W/U Status Risk SNOMED Code Notes Problem Hypertension I10 Active confirmed 4646089 3 Problem Stage 3 chronic kidney disease N18.3 Active confir med 135711365 Problem Diabetic polyneuropathy associated with type 2 d iabetes mellitus E11.42 Active confirmed 99341433 Problem Chronic diastolic heart failure I50.32 Active confi rmed 767977701 Problem Obesity (BMI 30-39.9) E66.9 Active confirmed 342502687 Problem Gastroesophageal reflux disease, esophagitis pre sence not specified K21.9 Active confirmed 911668021 Problem Chronic obstructive pulmonary disease, unspecified COPD ty pe J44.9 Active confirmed 71426429 Problem 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 Active confirmed 225141094 Problem Type 2 diabetes mellitus with diabetic chronic kidney disease E11.22 Active confirmed 30891251 Problem senior living (current) use of insulin Z79.4 Activ e confirmed 947354356 Problem Thyroid nodule E04.1 Active confirmed 32454 5005 Problem History of total right hip arthroplasty Z96.641 Active confirmed 347171368440 Problem Gastroesophageal reflux dise ase, unspecified whether esophagitis present K21.9 Active confirmed 375657208 Problem MARIZA (obstructive sleep apnea) G47.33 Active confirm ed 38053957 Problem Vitamin D deficiency E55.9 Active confirmed 45658633 Problem Mixed hyperlipidemia E78.2 Active confirmed 417921968 Problem Anxiety F41.9 Active confirmed 21488819 Problem Other chronic pain G89.29 Active confirmed 8 1391973 ALLERGIES Allergen (clinical drug ingredient) Drug/Non Drug Allergy do cumented on EMR Reaction Allergy Type Onset Date Status pantoprazole Pantoprazole Sodium([facility] Code:[address]-06) Itching D rug Allergy Active Penicillin (For Allergies Use Only) Hives Drug Allerg y Active ENCOUNTERS from 1955 to 2020-11-22 Encounter Location Date Provider Diagnosis [address] [address] Nov, Jina Nowak IMMUNIZATIONS Vaccine Route Administration Date Status Influenza 18 yrs & older Flublok IM Intramuscular Jul 29, 2018 Administered Pneumococcal Adult 0.5mL Pneumovax 23 Unknown April 21 018 Administered Influenza 6mo & up Fluzone IM Intramuscular Jul 13, 2017 Admi nistered Influenza 6mo & up Fluzone IM Intramuscular Aug 28, 2016 Admi nistered SOCIAL HISTORY Tobacco Use: Social History Observation Description Date Details (start date - stop date) Former Smoker Sex Assigned At : Social History Observation Description Sex Assigned At Unknown Audit Question Answer Notes Total Score: 1 Interpretation: Alcohol Education Language: Question Answer Notes Languages spoken: Kazakh Religious: Question Answer Notes Religious 08 Roman Catholic Sexual Hx: Question Answer Notes Had sex [...] 1 puff Inhalation Once a day Active OneTouch Verio - DIRECTED DAILY In Vitro three times daily Active Levemir FlexTouch 100 UNIT/ML 34 units Subcutaneous Daily Active Atorvastatin Calcium 80 MG 1 tablet Orally Once a day for 30 Active Chlorthalidone 25 MG 1/2 tab Orally Once a day Active Serevent Diskus 50 MCG/DOSE 1 puff Inhalation Twice a day Active Ipratropium-Albuterol 0.5-2.5 (3) MG/3ML 3 ml Inhalation bid Nov, Active Cyclobenzaprine HCl 5 MG 1 tablet as needed for back spasm Orally bid for 30 day(s) Jul, Not-Taking Glucometer as directed Dx E11.9 Dec, Ac tive Glucose Meter Test - as directed In Vitro Daily dx. E11.9 Mar, Active Pantoprazole Sodium 20 MG 1 tablet Orally Once a day for 30 day( s) Oct, Not-Taking HydrALAZINE HCl 10 MG 2 tablets Orally every 6 hrs Nov, Not-Taking Ferrous Sulfate 325 (65 Fe) MG 1 tablet Orally Once a day Not-Taking Acetaminophen 500 MG 2 tablets Orally three times daily as neede d MDD 3000mg Active Aspirin Adult Low Dose 81 MG 1 tablet Orally Once a day Active FreeStyle Margie Sensor System - as directed Dx E11.22 2020 Active Ventolin HFA 108 (90 Base) MCG/ACT 2 puffs Inhalation every 4 hours as needed for SOB Nov, Active Trulicity 1.5 MG/0.5ML 0.5 ml Subcutaneous weekly Not-Taking Pen Jermyn 31G X 6 MM as directed DX. E11.9 Once daily as directed for 30 Active Gabapentin 100 MG 1 capsule Orally bid for 90 days Dec, Active Zetia 10 MG 1 tablet Orally Once a day Active Arnuity Ellipta 200 MCG/ACT 1 puff Inhalation Once a day Active Bumetanide 1 MG 1/2 tab Orally once daily Active Sertraline HCl 25 MG 1 tablet Orally Once a day for 90 days Active NovoLog Flexpen 100 UNIT/ML carb coverage 1 unit:10 g of carbs; plus sliding scale Subcutaneous QID; MDD _#40 Active FreeStyle Margie Sharon - as directed Dx E11.22 Oct, Active Calcitriol 0.25 MCG 1 capsule on sunday,sunday Orally Once a d ay Active Bisoprolol Fumarate 10 MG TAKE ONE TABLET BY MOUTH Orally Once a day for 30 Active Vitamin D3 High Potency 50,000 wkly Not-Taking HydrALAZINE HCl 10 MG 1 tablet with food Orally twice a day Active AmLODIPine Besylate 2.5 MG 1 tablet Orally Daily Active PROCEDURES No Information RESULTS No Results REASON FOR VISIT itching MEDICAL (GENERAL) HISTORY Type Description Date Medical [...] Medical History Pap smears: [facility] S[facility] at [facility] Medical History Mammograms: Due in October Medical History MARIZA - sometimes uses CPAP Medical History COPD - Dr. Castaneda/Franky Hough Surgical History tubal ligation Surgical History left and right inquinal hernia Surgical History (plate and screws neck) Surgical History Left Cataract 11/2016 Surgical History Left total hip 12/2016 Surgical History Left breast steretotactic needle biopsy: fibroadenoma 05/2016 Surgical History Right hip Sx, [place] 01/15/1912/2018 Hospitalization History see surgeries above 12/2016 [...] Information ASSESSMENTS No Information PLAN OF TREATMENT Next Appt Details Provider Name:Nona Theodore, 2020-11-02 4 09:00:00 AM, [address] [place] [address], [phone], Provider Name:Jina Nowak, 2020-12-02 02:15:00 PM, [address] [place] [address], [phone], Insurance Providers Payer Name Payer Address Payer Phone Insured Name Patient Relati onship to Insured Coverage Start Date Coverage End Date SELF PAY ONLY - SP1 CELI JOHNSON self AETNA MEDICARE AETNA [employer] INSURANCE [place] [address] [facility] [phone] CELI JOHNSON self
--- OUTSIDE RECORDS SUMMARY | 2020-11-26 16:27 | CCD | Continuity of Care Document ---
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 B1, Whole Blood was developed and its performance characteristics determined by [employer] [employer]. It has not been cleared or approved by the Food and Drug Administration. 2 A serum folate concentration of less than 3.1 ng/mL is considered to represent clinical deficiency. 3 Reference intervals for alph a and gamma-tocopherol determined from National Health and Nutrition Examination Survey, 7395-7224. Individuals with alpha-tocopherol levels less than 5.0 mg/L are considered vitamin E deficient. Procedures Date Code Description Status 10/29/2020 98336 Sympathetic Skin Responses Compl eted 10/29/2020 24572 Sympathetic Skin Responses Compl eted 10/29/2020 93940 Test Autonomic Nervous System, C ardiovagal Innervation Completed 10/29/2020 48371 Test Autonomic Nervous System, C ardiovagal Innervation Completed 10/19/2020 20872 MRI Spine Cervical W/O Contrast Completed 10/19/2020 29830 MRI Spine Cervical W/O Contrast Completed 10/19/2020 21204 MRI Brain W/O Contrast Completed 10/19/2020 69270 MRI Brain W/O Contrast Completed Medical Devices Description No Information Available Encounters Type Date Location Provider Dx Diagnosis Office Visit 09/09/2020 8:00a Main office - [place] Jese milligan M.D. G25.0 Essential tremor G25.1 Drug-induced tremor E11.40 Type 2 diabetes mellitus wit h diabetic neuropathy, unsp E11.59 Type 2 diabetes mellitus wit h oth circulatory complications Assessments Date Code Description Provider 10/29/2020 E11.40 Type 2 diabetes kristin itus with diabetic neuropathy, unspecified Jese Moreno M.D. 10/29/2020 E11.40 Type 2 diabetes kristin itus with diabetic neuropathy, unspecified Ans/VS 10/19/2020 R25.8 Other abnormal involuntary movem ents Sary Alberto, M.D. 10/19/2020 R25.8 Other abnormal involuntary movem ents MRI 10/19/2020 R51.9 Headache, unspecified Sary Lati f, M.D. 10/19/2020 R51.9 Headache, unspecified MRI 10/19/2020 M43.02 Spondylolysis, cervical region A bdul Alberto, M.D. 10/19/2020 M43.02 Spondylolysis, cervical region M RI 10/19/2020 R20.2 Paresthesia of skin Sary Alberto, M.D. 10/19/2020 R20.2 Paresthesia of skin MRI 10/19/2020 M54.2 Cervicalgia Sary Alberto, M.D . 10/19/2020 M54.2 Cervicalgia MRI 09/09/2020 G25.0 Essential tremor Jese Moreno M.D. 09/09/2020 G25.1 Drug-induced tremor Jese milligan M.D. 09/09/2020 E11.40 Type 2 diabetes kristin itus with diabetic neuropathy, unspecified Jese Moreno M.D. 09/09/2020 E11.59 Type 2 diabetes mellitus with ot her circulatory complications Jese Moreno M.D. Plan of Treatment Future Appointment(s):* 12/27/2020 10:15 am - Jese Moreno M.D. at [facility] * 12/15/2020 2:30 pm - EEG at [facility] Functional Status Description No Information Available Mental Status Description No Information Available Referrals Refer to Reason for Referral Status Appt Date Jese Moreno M.D. Created [address] [place] [address] [phone] Jese Moreno M.D. Created [address] [place] [address] [phone]
--- OUTSIDE RECORDS SUMMARY | 2020-11-26 16:27 | CCD ---
Author Author [facility] Organization [facility] Address Unknown Phone Unavailable Care Team Providers Care Photo Finisher Name Role Phone Jina Nowak Unavailable PROBLEMS Type Condition ICD9-CM Code DDR87-JI Code Onset Dates Condition S tatus SNOMED Code Notes Problem Diabetic polyneuropathy associated with type 2 d iabetes mellitus E11.42 Active 94586530 Problem Hypertension I10 Active 94870644 Problem Obesity (BMI 30-39.9) E66.9 Active 206372764 Problem Stage 3 chronic kidney disease N18.3 Active 4 85997443 Problem Chronic obstructive pulmonary disease, unspecified COPD ty pe J44.9 Active 30937204 Problem Chronic diastolic heart failure I50.32 Active 438687801 Problem History of total right hip arthroplasty Z96.641 Active 805152958405 Problem 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 Active 042505757 Problem Type 2 diabetes mellitus with diabetic chronic kidney disease E11.22 Active 14304443 Problem Anxiety F41.9 Active 14227305 Problem MARIZA (obstructive sleep apnea) G47.33 Active 78 529181 Problem Other chronic pain G89.29 Active 96701460 Problem Gastroesophageal reflux disease, esophagitis pre sence not specified K21.9 Active 390957689 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 [place] [address] Aug, Jina Nowak Type 2 diabetes mellitus with diabetic c hronic kidney disease E11.22 ; longterm (current) use of insulin Z79.4 and Anxiety F41.9 IMMUNIZATIONS Vaccine Route Administration Date Status Influenza [...] Education Language: Question Answer Notes Languages spoken: Anguillan Denominational: Question Answer Notes Denominational 08 Taoism Sexual Hx: Question Answer Notes Had sex [...] FOR REFERRAL No Information VITAL SIGNS Weight 204 lbs Aug, Height 60 in Aug, BMI 39.84 kg/m2 Aug, Heart Rate 86 /min Aug, Respiratory Rate 20 /min Aug, Temperature 96.7 degrees Fahrenheit Aug, Oximetry 94 Aug, Blood pressure systolic 142 mm Hg Aug, Blood pressure diastolic 80 mm Hg Aug, MEDICATIONS Medication SIG (Take, Route, Frequency, Duration) Notes Start Da te End Date Status Levemir FlexTouch 100 UNIT/ML 34 units Subcutaneous Daily Active Zetia 10 MG 1 tablet Orally Once a day Active Ferrous Sulfate 325 (65 Fe) MG 1 tablet Orally Once a day Not-Taking Trulicity 1.5 MG/0.5ML 0.5 ml Subcutaneous weekly Not-Taking Aspirin Adult Low Dose 81 MG 1 tablet Orally Once a day Active Bisoprolol Fumarate 10 MG TAKE ONE TABLET BY MOUTH DAY Orally Once a day for 30 Active Ipratropium-Albuterol 0.5-2.5 (3) MG/3ML 3 ml Inhalation bid Nov, Active HydrALAZINE HCl 10 MG 2 tablets Orally every 6 hrs Nov, Not-Taking Cyclobenzaprine HCl 5 MG 1 tablet as needed for back spasm Orally bid for 30 day(s) Jul, Active HydrALAZINE HCl 10 MG 1 tablet with food Orally twice a day Active Sertraline HCl 25 MG 1 tablet Orally Once a day for 30 day(s) Jul, Active OneTouch Verio - DIRECTED DAILY In Vitro three times daily Active Glucometer as directed Dx E11.9 Dec, Ac tive Chlorthalidone 25 MG 1 tablet in the morning with food Orally Once a day Active Serevent Diskus 50 MCG/DOSE 1 puff Inhalation Twice a day Active Atorvastatin Calcium 80 MG 1 tablet Orally Once a day for 30 Active NovoLog Flexpen 100 UNIT/ML as directed Subcutaneous 2 units before each meal;plus sliding scale MDD__#6 Active Glucose Meter Test - as directed In Vitro Daily dx. E11.9 Mar, Active Ventolin HFA 108 (90 Base) MCG/ACT 2 puffs Inhalation every 4 hours as needed for SOB Nov, Active Arnuity Ellipta 200 MCG/ACT 1 puff Inhalation Once a day Active Bumetanide 1 MG 1 tab Orally once daily Active Incruse Ellipta 62.5 MCG/INH 1 puff Inhalation Once a day Active Gabapentin 100 MG 1 capsule Orally bid for 30 day(s) 2019 Active Vitamin D3 High Potency 50,000 wkly Active AmLODIPine Besylate 2.5 MG 3 tabs Orally Daily for 30 Active Pen [place] 31G X 6 MM as directed DX. E11.9 Once daily as directed for 30 Active Acetaminophen 500 MG 2 tablets Orally three times daily as neede d MDD 3000mg Active Calcitriol 0.25 MCG 1 capsule Orally Once a day for 30 day(s) Active PROCEDURES No Information RESULTS No Results REASON FOR VISIT F/u anxiety MEDICAL (GENERAL) HISTORY Type Description Date Medical [...] Medical History Pap smears: [facility] Sloan at [facility] Medical History Mammograms: Due in October Medical History MARIZA - sometimes uses CPAP Medical History COPD - Dr. Castaneda/Franky Hough Surgical History tubal ligation Surgical History left and right inquinal hernia Surgical History (plate and screws neck) Surgical History Left Cataract 11/2016 Surgical History Left total hip 12/2016 Surgical History Left breast steretotactic needle biopsy: fibroadenoma 05/2016 Surgical History Right hip Sx, [place] 01/15/1912/2018 Hospitalization History see surgeries above 12/2016 [...] Notes Treatment Notes Treatm ent Clinical Notes Aug, Type 2 diabetes mellitus wit h diabetic chronic kidney disease (ICD- 10 - E11.22) Glucose improved per patient report; she will bring meter to her next visit. Due for A1c in 1 month - order given today. Aug, longterm (current) use of insulin (ICD-10 - Z79 .4) Aug, Anxiety (ICD-10 - F41.9) Improved on sertraline, continue current dose. PLAN OF TREATMENT Medication Medication Name Sig Start Date Stop Date Bisoprolol Fumarate 10 MG TAKE ONE TABLET BY MOUTH VERÓNICA DAY Orally Once a day for 30 Treatment Notes Assessment Notes Clinical Notes Type 2 diabetes mellitus with diabetic chronic kidney diseas e Glucose improved per patient report; she will bring meter to her next visit. Due for A1c in 1 month - order given today. Anxiety Improved on sertrali ne, continue current dose. 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
--- OUTSIDE RECORDS SUMMARY | 2020-11-26 16:27 | CCD ---
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 Role Phone Jina Nowak Unavailable PROBLEMS Type Condition ICD9-CM Code RZO00-DQ Code Onset Dates Condition S tatus SNOMED Code Notes Problem Hypertension I10 Active 34934535 Problem Stage 3 chronic kidney disease N18.3 Active 4 56372767 Problem Diabetic polyneuropathy associated with type 2 d iabetes mellitus E11.42 Active 49706794 Problem Chronic diastolic heart failure I50.32 Active 829351761 Problem Obesity (BMI 30-39.9) E66.9 Active 653286351 Problem Gastroesophageal reflux disease, esophagitis pre sence not specified K21.9 Active 906862045 Problem Chronic obstructive pulmonary disease, unspecified COPD ty pe J44.9 Active 11905715 Problem 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 Active 072929988 Problem Type 2 diabetes mellitus with diabetic chronic kidney disease E11.22 Active 84011485 Problem custodial (current) use of insulin Z79.4 Activ e 765753081 Problem Thyroid nodule E04.1 Active 532489202 Problem History of total right hip arthroplasty Z96.641 Active 727244333273 Problem Gastroesophageal reflux dise ase, unspecified whether esophagitis present K21.9 Active 590830346 Problem MARIZA (obstructive sleep apnea) G47.33 Active 78 159719 Problem Vitamin D deficiency E55.9 Active 47251403 Problem Mixed hyperlipidemia E78.2 Active 668856270 Problem Anxiety F41.9 Active 08880009 Problem Other chronic pain G89.29 Active 95275308 ALLERGIES Allergen (clinical drug ingredient) Drug/Non Drug Allergy do cumented on EMR Reaction Allergy Type Onset Date Status Penicillin (For Allergies Use Only) Hives Drug Allerg y Active ENCOUNTERS from 1955 to 2020-10-27 Encounter Location Date Provider Diagnosis [facility] [place] [address] Oct, Jina Nowak Diabetic polyneuropathy associated with type 2 diabetes mellitus E11.42 IMMUNIZATIONS Vaccine Route Administration Date Status Influenza [...] Education Language: Question Answer Notes Languages spoken: Cymro Buddhism: Question Answer Notes Buddhism 08 Muslim Sexual Hx: Question Answer Notes Had sex [...] Notes Start Da te End Date Status HydrALAZINE HCl 10 MG 2 tablets Orally every 6 hrs Nov, Not-Taking Glucometer as directed Dx E11.9 Dec, Ac tive Sertraline HCl 25 MG 1 tablet Orally Once a day for 90 days Active FreeStyle Margie Sixes - as directed Dx E11.22 Oct, 1 Active NovoLog Flexpen 100 UNIT/ML as directed Subcutaneous 2 units before each meal;plus sliding scale MDD__#6 Active Ferrous Sulfate 325 (65 Fe) MG 1 tablet Orally Once a day Not-Taking FreeStyle Margie Sensor System - as directed Dx E11.22 13 2020 Active Pen [place] 31G X 6 MM as directed DX. E11.9 Once daily as directed for 30 Active Serevent Diskus 50 MCG/DOSE 1 puff Inhalation Twice a day Active Levemir FlexTouch 100 UNIT/ML 34 units Subcutaneous Daily Active Trulicity 1.5 MG/0.5ML 0.5 ml Subcutaneous weekly Not-Taking Incruse Ellipta 62.5 MCG/INH 1 puff Inhalation Once a day Active Ipratropium-Albuterol 0.5-2.5 (3) MG/3ML 3 ml Inhalation bid Nov, Active Calcitriol 0.25 MCG 1 capsule Orally Once a day for 30 day(s) Active Cyclobenzaprine HCl 5 MG 1 tablet as needed for back spasm Orally bid for 30 day(s) Jul, Active Atorvastatin Calcium 80 MG 1 tablet Orally Once a day for 30 Active Zetia 10 MG 1 tablet Orally Once a day Active Glucose Meter Test - as directed In Vitro Daily dx. E11.9 Mar, Active Pantoprazole Sodium 20 MG 1 tablet Orally Once a day for 30 day( s) Oct, Active Arnuity Ellipta 200 MCG/ACT 1 puff Inhalation Once a day Active OneTouch Verio - DIRECTED DAILY In Vitro three times daily Active Bumetanide 1 MG 1 tab Orally once daily Active Chlorthalidone 25 MG 1 tablet in the morning with food Orally Once a day Active Vitamin D3 High Potency 50,000 wkly Active Gabapentin 100 MG 1 capsule Orally bid for 90 days Dec, Active AmLODIPine Besylate 2.5 MG 1 tablet Orally Daily Active Acetaminophen 500 MG 2 tablets Orally three times daily as neede d MDD 3000mg Active HydrALAZINE HCl 10 MG 1 tablet with food Orally twice a day Active Ventolin HFA 108 (90 Base) MCG/ACT 2 puffs Inhalation every 4 hours as needed for SOB Nov, Active Bisoprolol Fumarate 10 MG TAKE ONE TABLET BY MOUTH VERÓNICA DAY Orally Once a day for 30 Active Aspirin Adult Low Dose 81 MG 1 tablet Orally Once a day Active PROCEDURES No Information RESULTS No Results REASON FOR VISIT gabapentin, sertraline MEDICAL (GENERAL) HISTORY Type Description Date Medical [...] Medical History Pap smears: [facility] Sloan at [facility] Medical History Mammograms: Due in October Medical History MARIZA - sometimes uses CPAP Medical History COPD - Dr. Castaenda/Franky Hough Surgical History tubal ligation Surgical History left and right inquinal hernia Surgical History (plate and screws neck) Surgical History Left Cataract 11/2016 Surgical History Left total hip 12/2016 Surgical History Left breast steretotactic needle biopsy: fibroadenoma 05/2016 Surgical History Right hip Sx, [place] 01/15/1912/2018 Hospitalization History see surgeries above 12/2016 [...] Treatment Notes Treatm ent Clinical Notes Oct, Diabetic polyneuropathy asso ciated with type 2 diabetes mellitus (ICD-10 - E11.42) PLAN OF TREATMENT Medication Medication Name Sig Start Date Stop Date Gabapentin 100 MG 1 capsule Orally bid for 90 days Dec, Pantoprazole Sodium 20 MG 1 tablet Orally Once a day for 30 day( s) Oct, FreeStyle Margie Sixes - as directed Dx E11.22 Oct, Sertraline HCl 25 MG 1 tablet Orally Once a day for 90 days FreeStyle Margie Sensor System - as directed Dx E11.22 Oct, Next Appt Details Provider Name:Jina Hardik She, 2020-11-04 08:00:00 AM, [address] [place], [address], Insurance Providers Payer Name Payer Address Payer Phone Insured Name Patient Relati onship to Insured Coverage Start Date Coverage End Date AETNA MEDICARE AETNA [employer] [address] [facility] [phone] CELI JOHNSON self SELF PAY ONLY - SP1 CELI JOHNSON self
--- OUTSIDE RECORDS SUMMARY | 2020-11-26 16:27 | CCD ---
Author Author [facility] Organization [facility] Address Unknown Phone Unavailable Care Team Providers Care Hand Ii Blocker Name Role Phone Jina Nowak Unavailable PROBLEMS Type Condition ICD9-CM Code [id number] Code Onset Dates Condition S tatus SNOMED Code Notes Problem Diabetic polyneuropathy associated with type 2 d iabetes mellitus E11.42 Active 29261187 Problem Hypertension I10 Active 25012543 Problem Obesity (BMI 30-39.9) E66.9 Active 579633711 Problem Stage 3 chronic kidney disease N18.3 Active 4 84357994 Problem Chronic obstructive pulmonary disease, unspecified COPD ty pe J44.9 Active 78940320 Problem Chronic diastolic heart failure I50.32 Active 322040497 Problem History of total right hip arthroplasty Z96.641 Active 215072335221 Problem 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 Active 624945442 Problem Type 2 diabetes mellitus with diabetic chronic kidney disease E11.22 Active 51899810 Problem Anxiety F41.9 Active 51265214 Problem MARIZA (obstructive sleep apnea) G47.33 Active 78 303845 Problem Other chronic pain G89.29 Active 65336400 Problem Gastroesophageal reflux disease, esophagitis pre sence not specified K21.9 Active 141418325 Problem buttermaker (current) use of insulin Z79.4 Activ e 643847168 Problem Vitamin D deficiency E55.9 Active 70634364 Problem Mixed hyperlipidemia E78.2 Active 387403243 Problem Thyroid nodule E04.1 Active 717134233 ALLERGIES Allergen (clinical drug ingredient) Drug/Non Drug Allergy do cumented on EMR Reaction Allergy Type Onset Date Status Penicillin (For Allergies Use Only) Hives Drug Allerg y Active ENCOUNTERS from 1955 to 2020-09-27 Encounter Location Date Provider Diagnosis [facility] [place] [address] Aug, Jina Nowak IMMUNIZATIONS Vaccine Route Administration [...] Education Language: Question Answer Notes Languages spoken: [place] Sikh: Question Answer Notes 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 E11.9 Once daily as directed for 30 Active Acetaminophen 500 MG 2 tablets Orally three times daily as neede d MDD 3000mg Active Calcitriol 0.25 MCG 1 capsule Orally Once a day for 30 day(s) Active PROCEDURES No Information RESULTS No Results REASON FOR VISIT COVID-19 test results MEDICAL (GENERAL) HISTORY Type Description Date Medical [...] Medical History Pap smears: [facility] at [facility] Medical History Mammograms: Due in October [...] Details Provider Name:Jina Nowak, 2020-11-04 08:00:00 AM, [address] [place], [address], Insurance Providers Payer Name Payer Address Payer Phone Insured Name Patient Relati onship to Insured Coverage Start Date Coverage End Date [employer]ETNA MEDICARE A[employer] [address] [facility] [id number] CELI JOHNSON
--- OUTSIDE RECORDS SUMMARY | 2020-11-26 16:27 | CCD | Continuity of Care Document ---
Author Author Ritika STRINGER Organization Unknown Address [address] [place] [address] Phone [phone] Care Team Providers Care Thread Roller Name Role Phone Jina Nowak MD AUTM [phone] Problems Active Problems Provider Date Tremor Jese [...] lb BMI (Body Mass Index) 40.0 kg/m2 [place] Body Weight 100 lb Results Test Acquired [...] B1 (Thiamine), Blood 138.3 nmol/L 66.5-200.0 PDF [id number] SEE IMAGE 1 A courtesy copy of this repo rt has been sent to [phone], the patient Test(s) 485129-Ilwxhne E(Alpha Tocopherol); 597611- Vitamin E(Gamma Tocopherol); 790272-Ddjakek B6; 426477- Vit. B1, Whole Blood was developed and its performance characteristics determined by [facility]. It has not been cleared or approved by the Food and Drug Administration. 2 A serum folate concentration of less than 3.1 ng/mL is considered to represent clinical deficiency. 3 Reference intervals for alph a and gamma-tocopherol determined from National Health and Nutrition Examination Survey, 2781-3169. Individuals with alpha-tocopherol levels less than 5.0 mg/L are considered vitamin E deficient. Procedures Date Code Description Status 10/19/2020 12087 MRI Spine Cervical W/O Contrast Completed 10/19/2020 04274 MRI Spine Cervical W/O Contrast Completed 10/19/2020 23721 MRI Brain W/O Contrast Completed 10/19/2020 36816 MRI Brain W/O Contrast Completed Medical Devices Description No Information Available Encounters Type Date Location Provider Dx Diagnosis Office Visit 09/09/2020 8:00a Main office - [place] Jese milligan M.D. G25.0 Essential tremor G25.1 Drug-induced tremor E11.40 Type 2 diabetes mellitus wit h diabetic neuropathy, unsp E11.59 Type 2 diabetes mellitus wit h oth circulatory complications Assessments Date Code Description Provider 10/19/2020 R25.8 Other abnormal involuntary movem ents Sary Dominguez M.D. 10/19/2020 R25.8 Other abnormal involuntary movem ents MRI 10/19/2020 R51.9 Headache, unspecified Hoa rao M.D. 10/19/2020 R51.9 Headache, unspecified MRI 10/19/2020 M43.02 Spondylolysis, cervical region A bdrainer Dominguez M.D. 10/19/2020 M43.02 Spondylolysis, cervical region M RI 10/19/2020 R20.2 Paresthesia of skin Sary Alberto, MKalyanDKalyan 10/19/2020 R20.2 Paresthesia of skin MRI 10/19/2020 M54.2 Cervicalgia Sary AlbertoCrow gonzalez 10/19/2020 M54.2 Cervicalgia MRI 09/09/2020 G25.0 Essential tremor Jese Moreno M.D. 09/09/2020 G25.1 Drug-induced tremor Jese milligan M.D. 09/09/2020 E11.40 Type 2 diabetes kristin itus with diabetic neuropathy, unspecified Jese Moreno M.D. 09/09/2020 E11.59 Type 2 diabetes mellitus with ot her circulatory complications Jese Moreno M.D. Plan of Treatment Future Appointment(s):* 12/17/2020 9:30 am - Jese Moreno M.D. at Main office - [place] Functional Status Description No Information Available Mental Status Description No Information Available Referrals Refer to Dr Reason for Referral Status Appt Date Jese Moreno M.D. Created [address] [place] [id number] [phone] Jese Moreno M.D. Created [address] [place] [address] [phone]
--- OUTSIDE RECORDS SUMMARY | 2020-11-26 16:27 | CCD | Continuity of Care Document ---
Author Author Ritika VALERA M.D. Organization Unknown Address [address] [place] [address] Phone [phone] Care Team Providers Care Bullet Charging Machine Operator Name Role Phone Jina Nowak MD AUTM [phone] Problems Active Problems Provider Date Tremor Jese [...] Patient takes twice a day 90caps Jese Valera M.D. Immunizations Description No Information Available Vital Signs Date Vital Result Comment 09/09/2020 8:34am Respiratory Rate 12 /min Height 59 inches 4'11" Weight 198.00 lb BMI (Body Mass Index) 40.0 kg/m2 [place] Body Weight 100 lb Results Description No Information Available Procedures Description No Information Available Medical Devices Description No Information Available Encounters Description No Information Available Assessments Date Code Description Provider 09/09/2020 G25.0 Essential tremor Jese Valera M.D. 09/09/2020 G25.1 Drug-induced tremor Jese milligan M.D. 09/09/2020 E11.40 Type 2 diabetes kristin itus with diabetic neuropathy, unspecified Jese Valera M.D. 09/09/2020 E11.59 Type 2 diabetes mellitus with ot her circulatory complications Jese Valera M.D. Plan of Treatment No Information Available Functional Status Description No Information Available Mental Status Description No Information Available Referrals Description No Information Available
--- OUTSIDE RECORDS SUMMARY | 2020-11-26 16:29 | CCD ---
Author Author [facility] Organization [facility] Address Unknown Phone Unavailable Care Team Providers Care Cnc Mechanic Name Role Phone Kamala M Lili QUAL RESEARCH MANAGER Unavailable Unavailable Fons, M Lili QUAL RESEARCH MANAGER Unavailable Unavailable Fons, M Lili QUAL RESEARCH MANAGER Unavailable Unavailable Fons, M Lili QUAL RESEARCH MANAGER Unavailable Unavailable Fons, M Lili QUAL RESEARCH MANAGER Unavailable Unavailable Fons, M Lili QUAL RESEARCH MANAGER Unavailable Unavailable Fons, M Lili QUAL RESEARCH MANAGER Unavailable Unavailable Fons, M Lili QUAL RESEARCH MANAGER Unavailable Unavailable Fons, M Lili QUAL RESEARCH MANAGER Unavailable Unavailable Fons, M Lili QUAL RESEARCH MANAGER Unavailable Unavailable Fons, M Lili QUAL RESEARCH MANAGER Unavailable Unavailable Fons, M Lili QUAL RESEARCH MANAGER Unavailable Unavailable Fons, M Llii QUAL RESEARCH MANAGER Unavailable Unavailable Fons, M Lili QUAL RESEARCH MANAGER Unavailable Unavailable Fons, M Lili QUAL RESEARCH MANAGER Unavailable Unavailable Fons, M Lili QUAL RESEARCH MANAGER Unavailable Unavailable Fons, M Lili QUAL RESEARCH MANAGER Unavailable Unavailable Fons, M Lili QUAL RESEARCH MANAGER Unavailable Unavailable Fons, M Lili QUAL RESEARCH MANAGER Unavailable Unavailable Fons, M Lili QUAL RESEARCH MANAGER Unavailable Unavailable Fons, M Lili QUAL RESEARCH MANAGER Unavailable Unavailable Fons, M Lili QUAL RESEARCH MANAGER Unavailable Unavailable Fons, M Lili QUAL RESEARCH MANAGER Unavailable Unavailable Fons, M Lili QUAL RESEARCH MANAGER Unavailable Unavailable Fons, M Lili QUAL RESEARCH MANAGER Unavailable Unavailable Fons, M Lili QUAL RESEARCH MANAGER Unavailable Unavailable Fons, M Lili QUAL RESEARCH MANAGER Unavailable Unavailable Fons, M Lili QUAL RESEARCH MANAGER Unavailable Unavailable Fons, M Lili QUAL RESEARCH MANAGER Unavailable Unavailable Fons, M Lili QUAL RESEARCH MANAGER Unavailable Unavailable Fons, M Lili QUAL RESEARCH MANAGER Unavailable Unavailable Fons, M Lili QUAL RESEARCH MANAGER Unavailable Unavailable Fons, M Lili QUAL RESEARCH MANAGER Unavailable Unavailable Fons, M Lili QUAL RESEARCH MANAGER Unavailable Unavailable Fons, M Lili QUAL RESEARCH MANAGER Unavailable Unavailable Fons, M Lili QUAL RESEARCH MANAGER Unavailable Unavailable Fons, M Lili QUAL RESEARCH MANAGER Unavailable Unavailable Fons, M Lili QUAL RESEARCH MANAGER Unavailable Unavailable Fons, M Lili QUAL RESEARCH MANAGER Unavailable Unavailable Fons, M Lili QUAL RESEARCH MANAGER Unavailable Unavailable Fons, M Lili QUAL RESEARCH MANAGER Unavailable Unavailable Fons, M Lili QUAL RESEARCH MANAGER Unavailable Unavailable Fons, M Lili QUAL RESEARCH MANAGER Unavailable Unavailable Fons, M Lili QUAL RESEARCH MANAGER Unavailable Unavailable Fons, M Lili QUAL RESEARCH MANAGER Unavailable Unavailable Fons, M Lili QUAL RESEARCH MANAGER Unavailable Unavailable Fons, M Lili QUAL RESEARCH MANAGER Unavailable Unavailable Fons, M Lili QUAL RESEARCH MANAGER Unavailable Unavailable Fons, M Lili QUAL RESEARCH MANAGER Unavailable Unavailable Fons, M Lili QUAL RESEARCH MANAGER Unavailable Unavailable Fons, M Lili QUAL RESEARCH MANAGER Unavailable Unavailable Fons, M Lili QUAL RESEARCH MANAGER Unavailable Unavailable Fons, M Lili QUAL RESEARCH MANAGER Unavailable Unavailable Fons, M Lili QUAL RESEARCH MANAGER Unavailable Unavailable Fons, M Lili QUAL RESEARCH MANAGER Unavailable Unavailable Rosamaria Singh PA Unavailable Unavailable Rosmaaria Singh PA Unavailable Unavailable Rosamaria Singh PA Unavailable Unavailable Rosamaria Singh PA Unavailable Unavailable Rosamaria Singh PA Unavailable Unavailable Rosamaria Singh PA Unavailable Unavailable Rosamaria Singh PA Unavailable Unavailable Rosamaria Singh PA Unavailable Unavailable Rosamaria Singh PA Unavailable Unavailable Francisco, L Krupa PA Unavailable Unavailable Francisco, L Krupa PA Unavailable Unavailable Francisco, L Krupa PA Unavailable Unavailable Francisco, L Krupa PA Unavailable Unavailable Francisco, L Krupa PA Unavailable Unavailable Francisco, L Krupa PA Unavailable Unavailable Francisco, L Krupa PA Unavailable Unavailable Francisco, L Krupa PA Unavailable Unavailable Francisco, L Krupa PA Unavailable Unavailable Francisco, L Krupa PA Unavailable Unavailable Francisco, L Krupa PA Unavailable Unavailable Francisco, L Krupa PA Unavailable Unavailable Francisco, L Krupa PA Unavailable Unavailable Francisco, L Krupa PA Unavailable Unavailable WetterhahnAurelio MD Unavailable Unavailable WetterhahnAurelio MD Unavailable Unavailable WetterhahnAurelio MD Unavailable Unavailable WetterhahnAurelio MD Unavailable Unavailable WetterhahnAurelio MD Unavailable Unavailable WetterhahnAurelio MD Unavailable Unavailable WetterhahnAurelio MD Unavailable Unavailable WetterhahnAurelio MD Unavailable Unavailable WetterhahnAurelio MD Unavailable Unavailable WetterhaAurelio rich MD Unavailable Unavailable WetterhahnAurelio MD Unavailable Unavailable WetterhahnAurelio MD Unavailable Unavailable WetterhahnAurelio MD Unavailable Unavailable WetterhahnAurelio MD Unavailable Unavailable WetterhahnAurelio MD Unavailable Unavailable WetterhahnAurelio MD Unavailable Unavailable WetterhahnAurelio MD Unavailable Unavailable WetterhahnAurelio MD Unavailable Unavailable WetterhahnAurelio MD Unavailable Unavailable WetterhahnAurelio MD Unavailable Unavailable WetterhahnAurelio MD Unavailable Unavailable WetterhahnAurelio MD Unavailable Unavailable WetterhaAurelio rich MD Unavailable Unavailable WetterhaAurelio rich MD Unavailable Unavailable WetterhahnAurelio MD Unavailable Unavailable WetterhahnAurelio MD Unavailable Unavailable WetterhahnAurelio MD Unavailable Unavailable WetterhahnAurelio MD Unavailable Unavailable WetterhahnAurelio MD Unavailable Unavailable WetterhahnAurelio MD Unavailable Unavailable WetterhahnAurelio MD Unavailable Unavailable WetterhahnAurelio MD Unavailable Unavailable WetterhahnAurelio MD Unavailable Unavailable WetterhahnAurelio MD Unavailable Unavailable WetterhahnAurelio MD Unavailable Unavailable WetterhahnAurelio MD Unavailable Unavailable WetterhahnAurelio MD Unavailable Unavailable WetterhahnAurelio MD Unavailable Unavailable WetterhahnAurelio MD Unavailable Unavailable WetterhahnAurelio MD Unavailable Unavailable WetterhahnAurelio MD Unavailable Unavailable WetterhahnAurelio MD Unavailable Unavailable WetterhahnAurelio MD Unavailable Unavailable WetterhahnAurelio MD Unavailable Unavailable WetterAurelio borrero MD Unavailable Unavailable WetterAurelio borrero MD Unavailable Unavailable WetterAurelio borrero MD Unavailable Unavailable WetterAurelio borrero MD Unavailable Unavailable WetterAurelio borrero MD Unavailable Unavailable WetterAurelio borrero MD Unavailable Unavailable WetterAurelio borrero MD Unavailable Unavailable BernardoterAurelio borrero MD Unavailable Unavailable WetterAurelio borrero MD Unavailable Unavailable WetterAurelio borrero MD Unavailable Unavailable WetterAurelio borrero MD Unavailable Unavailable BernardoterAurelio borrero MD Unavailable Unavailable WetterAurelio borrero MD Unavailable Unavailable WetterAurelio borrero MD Unavailable Unavailable BernardoterAurelio borrero MD Unavailable Unavailable WetterAurelio borrero MD Unavailable Unavailable WetterAurelio borrero MD Unavailable Unavailable WetterAurelio borrero MD Unavailable Unavailable WetterAurelio borrero MD Unavailable Unavailable WetterAurelio borrero MD Unavailable Unavailable BernardoterAurelio borrero MD Unavailable Unavailable Aurelio Segal MD Unavailable Unavailable Aurelio Segal MD Unavailable Unavailable JORGE MYERS MD Unavailable Unavailable JORGE MYERS MD Unavailable Unavailable JORGE MYERS MD Unavailable Unavailable JORGE MYERS MD Unavailable Unavailable JORGE MYERS MD Unavailable Unavailable JORGE MYERS MD Unavailable Unavailable JORGE MYERS MD Unavailable Unavailable JORGE MYERS MD Unavailable Unavailable JORGE MYERS MD Unavailable Unavailable JORGE MYERS MD Unavailable Unavailable JORGE MYERS MD Unavailable Unavailable JORGE MYERS MD Unavailable Unavailable JORGE MYERS MD Unavailable Unavailable JORGE MYERS MD Unavailable Unavailable JORGE MYERS MD Unavailable Unavailable JORGE MYERS MD Unavailable Unavailable JORGE MYERS MD Unavailable Unavailable JORGE MYERS MD Unavailable Unavailable JORGE MYERS MD Unavailable Unavailable JORGE MYERS MD Unavailable Unavailable JORGE MYERS MD Unavailable Unavailable JORGE MYERS MD Unavailable Unavailable JORGE MYERS MD Unavailable Unavailable JORGE MYERS MD Unavailable Unavailable JORGE MYERS MD Unavailable Unavailable JORGE MYERS MD Unavailable Unavailable JORGE MYERS MD Unavailable Unavailable JORGE MYERS MD Unavailable Unavailable JORGE MYERS MD Unavailable Unavailable JORGE MYERS MD Unavailable Unavailable Fons, M Lili QUAL RESEARCH MANAGER Unavailable Unavailable Fons, M Lili QUAL RESEARCH MANAGER Unavailable Unavailable Fons, M Lili QUAL RESEARCH MANAGER Unavailable Unavailable Fons, M Lili QUAL RESEARCH MANAGER Unavailable Unavailable Fons, M Lili QUAL RESEARCH MANAGER Unavailable Unavailable Fons, M Lili QUAL RESEARCH MANAGER Unavailable Unavailable Fons, M Lili QUAL RESEARCH MANAGER Unavailable Unavailable Fons, M Lili QUAL RESEARCH MANAGER Unavailable Unavailable Fons, M Lili QUAL RESEARCH MANAGER Unavailable Unavailable Fons, M Lili QUAL RESEARCH MANAGER Unavailable Unavailable Fons, M Lili QUAL RESEARCH MANAGER Unavailable Unavailable Fons, M Lili QUAL RESEARCH MANAGER Unavailable Unavailable Fons, M Lili QUAL RESEARCH MANAGER Unavailable Unavailable Fons, M Lili QUAL RESEARCH MANAGER Unavailable Unavailable Fons, M Lili QUAL RESEARCH MANAGER Unavailable Unavailable Fons, M Lili QUAL RESEARCH MANAGER Unavailable Unavailable Fons, M Lili QUAL RESEARCH MANAGER Unavailable Unavailable Fons, M Lili QUAL RESEARCH MANAGER Unavailable Unavailable Fons, M Lili QUAL RESEARCH MANAGER Unavailable Unavailable Fons, M Lili QUAL RESEARCH MANAGER Unavailable Unavailable Fons, M Lili QUAL RESEARCH MANAGER Unavailable Unavailable Fons, M Lili QUAL RESEARCH MANAGER Unavailable Unavailable Fons, M Lili QUAL RESEARCH MANAGER Unavailable Unavailable Fons, M Lili QUAL RESEARCH MANAGER Unavailable Unavailable Fons, M Lili QUAL RESEARCH MANAGER Unavailable Unavailable Fons, M Lili QUAL RESEARCH MANAGER Unavailable Unavailable Fons, M Lili QUAL RESEARCH MANAGER Unavailable Unavailable Fons, M Lili QUAL RESEARCH MANAGER Unavailable Unavailable Fons, M Lili QUAL RESEARCH MANAGER Unavailable Unavailable Fons, M Lili QUAL RESEARCH MANAGER Unavailable Unavailable Fons, M Lili QUAL RESEARCH MANAGER Unavailable Unavailable Fons, M Lili QUAL RESEARCH MANAGER Unavailable Unavailable Fons, M Lili QUAL RESEARCH MANAGER Unavailable Unavailable Fons, M Lili QUAL RESEARCH MANAGER Unavailable Unavailable Fons, M Lili QUAL RESEARCH MANAGER Unavailable Unavailable Fons, M Lili QUAL RESEARCH MANAGER Unavailable Unavailable Fons, M Lili QUAL RESEARCH MANAGER Unavailable Unavailable Fons, M Lili QUAL RESEARCH MANAGER Unavailable Unavailable Fons, M Lili QUAL RESEARCH MANAGER Unavailable Unavailable Fons, M Lili QUAL RESEARCH MANAGER Unavailable Unavailable Fons, M Lili QUAL RESEARCH MANAGER Unavailable Unavailable Fons, M Lili QUAL RESEARCH MANAGER Unavailable Unavailable Fons, M Lili QUAL RESEARCH MANAGER Unavailable Unavailable Fons, M Lili QUAL RESEARCH MANAGER Unavailable Unavailable Fons, M Lili QUAL RESEARCH MANAGER Unavailable Unavailable Fons, M Lili QUAL RESEARCH MANAGER Unavailable Unavailable Fons, M Lili QUAL RESEARCH MANAGER Unavailable Unavailable Fons, M Lili QUAL RESEARCH MANAGER Unavailable Unavailable Fons, M Lili QUAL RESEARCH MANAGER Unavailable Unavailable Fons, M Lili QUAL RESEARCH MANAGER Unavailable Unavailable Fons, M Lili QUAL RESEARCH MANAGER Unavailable Unavailable Fons, M Liil QUAL RESEARCH MANAGER Unavailable Unavailable Fons, M Lili QUAL RESEARCH MANAGER Unavailable Unavailable Fons, M Lili QUAL RESEARCH MANAGER Unavailable Unavailable Fons, M Lili QUAL RESEARCH MANAGER Unavailable Unavailable ZAHIRA BUSTILLO MD Unavailable Unavailable ZAHIRA BUSTILLO MD Unavailable Unavailable ZAHIRA BUSTILLO MD Unavailable Unavailable ZAHIRA BUSTILLO MD Unavailable Unavailable AZHIRA BUSTILLO MD Unavailable Unavailable ZAHIRA BUSTILLO MD Unavailable Unavailable ZAHIRA BUSTILLO MD Unavailable Unavailable ZAHIRA BUSTILLO MD Unavailable Unavailable ZAHIRA BUSTILLO MD Unavailable Unavailable ZAHIRA BUSTILLO MD Unavailable Unavailable ZAHIRA BUSTILLO MD Unavailable Unavailable ZAHIRA BUSTILLO MD Unavailable Unavailable ZAHIRA BUSTILLO MD Unavailable Unavailable ZAHIRA BUSTILLO MD Unavailable Unavailable ZAHIRA BUSTILLO MD Unavailable Unavailable ZAHIRA BUSTILLO MD Unavailable Unavailable KENYZAHIRA Castro MD Unavailable Unavailable KENYZAHIRA Castro MD Unavailable Unavailable KENYZAHIRA Castro MD Unavailable Unavailable KENYZAHIRA Castro MD Unavailable Unavailable KENYZAHIRA Castro MD Unavailable Unavailable KENYZAHIRA Castro MD Unavailable Unavailable KENYZAHIRA Castro MD Unavailable Unavailable ZAHIRA BUSTILLO MD Unavailable Unavailable KENYZAHIRA Castro MD Unavailable Unavailable ZAHIRA BUSTILLO MD Unavailable Unavailable ZAHIRA BUSTILLO MD Unavailable Unavailable ZAHIRA BUSTILLO MD Unavailable Unavailable ZAHIRA BUSTILLO MD Unavailable Unavailable ZAHIRA BUSTILLO MD Unavailable Unavailable ZAHIRA BUSTILLO MD Unavailable Unavailable ZAHIRA BUSTILLO MD Unavailable Unavailable ZAHIRA BUSTILLO MD Unavailable Unavailable ZAHIRA BUSTILLO MD Unavailable Unavailable ZAHIRA BUSTILLO MD Unavailable Unavailable ZAHIRA BUSTILLO MD Unavailable Unavailable ZAHIRA BUSTILLO MD Unavailable Unavailable ZAHIRA BUSTILLO MD Unavailable Unavailable ZAHIRA BUSTILLO MD Unavailable Unavailable ZAHIRA BUSTILLO MD Unavailable Unavailable ZAHIRA BUSTILLO MD Unavailable Unavailable ZAHIRA BUSTILLO MD Unavailable Unavailable ZAHIRA BUSTILLO MD Unavailable Unavailable ZAHIRA BUSTILLO MD Unavailable Unavailable ZAHIRA BUSTILLO MD Unavailable Unavailable ZAHIRA BUSTILLO MD Unavailable Unavailable ZAHIRA BUSTILLO MD Unavailable Unavailable ZAHIRA BUSTILLO MD Unavailable Unavailable ZAHIRA BUSTILLO MD Unavailable Unavailable ZAHIRA BUSTILLO MD Unavailable Unavailable ZAHIRA BUSTILLO MD Unavailable Unavailable ZAHIRA BUSTILLO MD Unavailable Unavailable ZAHIRA BUSTILLO MD Unavailable Unavailable ZAHIRA BUSTILLO MD Unavailable Unavailable ZAHIRA BUSTILLO MD Unavailable Unavailable ZAHIRA BUSTILLO MD Unavailable Unavailable ZAHIRA BUSTILLO MD Unavailable Unavailable ZAHIRA BUSTILLO MD Unavailable Unavailable ZAHIRA BUSTILLO MD Unavailable Unavailable Sabine HERRING MD Unavailable Unavailable Sabine HERRING MD Unavailable Unavailable Sabine HERRING MD Unavailable Unavailable Sabine HERRING MD Unavailable Unavailable HicksRosamaria cortezelle PA Unavailable Unavailable Hicks, Rosamaria NevilleChristine PA Unavailable Unavailable Hicks, L Christine PA Unavailable Unavailable Hicks, L Christine PA Unavailable Unavailable Hicks, L Christine PA Unavailable Unavailable Hicks, L Christine PA Unavailable Unavailable Hicks, L Christine PA Unavailable Unavailable Hicks, L Christine PA Unavailable Unavailable Hicks, L Christine PA Unavailable Unavailable Hicks, L Christine PA Unavailable Unavailable Hicks, L Christine PA Unavailable Unavailable Hicks, L Christine PA Unavailable Unavailable Hicks, L Christine PA Unavailable Unavailable Hicks, L Christine PA Unavailable Unavailable Hicks, L Christine PA Unavailable Unavailable Hicks, L Christine PA Unavailable Unavailable Hicks, L Christine PA Unavailable Unavailable Hicks, L Christine PA Unavailable Unavailable Hicks, L Christine PA Unavailable Unavailable Hicks, L Christine PA Unavailable Unavailable Hicks, L Christine PA Unavailable Unavailable Hicks, L Christine PA Unavailable Unavailable Hicks, L Christine PA Unavailable Unavailable Hicks, L Christine PA Unavailable Unavailable Hicks, L Christine PA Unavailable Unavailable Hicks, L Christine PA Unavailable Unavailable Hicks, L Christine PA Unavailable Unavailable Hicks, L Christine PA Unavailable Unavailable Hicks, L Christine PA Unavailable Unavailable Hicks, L Christine PA Unavailable Unavailable Hicks, L Christine PA Unavailable Unavailable Hicks, L Christine PA Unavailable Unavailable Hicks, L Christine PA Unavailable Unavailable Hicks, L Christine PA Unavailable Unavailable Hicks, L Christine PA Unavailable Unavailable Hicks, L Christine PA Unavailable Unavailable ZHANG, SHOMA PH.D. Unavailable Unavailable ZHANG, SHOMA PH.D. Unavailable Unavailable ZHANG, SHOMA PH.D. Unavailable Unavailable ZHANG, SHOMA PH.D. Unavailable Unavailable ZHANG, SHOMA PH.D. Unavailable Unavailable ZHANG, SHOMA PH.D. Unavailable Unavailable ZHANG, SHOMA PH.D. Unavailable Unavailable ZHANG, SHOMA PH.D. Unavailable Unavailable ZHANG, SHOMA PH.D. Unavailable Unavailable ZHANG, SHOMA PH.D. Unavailable Unavailable ZHANG, SHOMA PH.D. Unavailable Unavailable Sabine HERRING MD Unavailable Unavailable Sabine HERRING MD Unavailable Unavailable Sabine HERRING MD Unavailable Unavailable Sabine HERRING MD Unavailable Unavailable JAZ, [id number] Unavailable Unavailable MAGAN CHAN MD Unavailable Unavailable MAGAN CHAN MD Unavailable Unavailable MAGAN CHAN MD Unavailable Unavailable MAGAN CHAN MD Unavailable Unavailable MAGAN CHAN MD Unavailable Unavailable ZAKARIYYA, HASAN MD Unavailable Unavailable ZAKARIYYA, HASAN MD Unavailable Unavailable ZAKARIYYA, HASAN MD Unavailable Unavailable ZAKARIYYA, HASAN MD Unavailable Unavailable ZAKARIYYA, HASAN MD Unavailable Unavailable ZAKARIYYA, HASAN MD Unavailable Unavailable ZAKARIYYA, HASAN MD Unavailable Unavailable ZAKARIYYA, HASAN MD Unavailable Unavailable ZAKARIYYA, HASAN MD Unavailable Unavailable ZAKARIYYA, HASAN MD Unavailable Unavailable ZAKARIYYA, HASAN MD Unavailable Unavailable ZAKARIYYA, HASAN MD Unavailable Unavailable ZAKARIYYA, HASAN MD Unavailable Unavailable ZAKARIYYA, HASAN MD Unavailable Unavailable ZAKARIYYA, HASAN MD Unavailable Unavailable ZAKARIYYA, HASAN MD Unavailable Unavailable ZAKARIYYA, HASAN MD Unavailable Unavailable ZAKARIYYA, HASAN MD Unavailable Unavailable ZAKARIYYA, HASAN MD Unavailable Unavailable ZAKARIYYA, HASAN MD Unavailable Unavailable ZAKARIYYA, HASAN MD Unavailable Unavailable ZAKARIYYA, HASAN MD Unavailable Unavailable ZAKARIYYA, HASAN MD Unavailable Unavailable ZAKARIYYA, HASAN MD Unavailable Unavailable ZAKARIYYA, HASAN MD Unavailable Unavailable ZAKARIYYA, HASAN MD Unavailable Unavailable ZAKARIYYA, HASAN MD Unavailable Unavailable ZAKARIYYA, HASAN MD Unavailable Unavailable ZAKARIYYA, HASAN MD Unavailable Unavailable ZAKARIYYA, HASAN MD Unavailable Unavailable ZAKARIYYA, HASAN MD Unavailable Unavailable ZAKARIYYA, HASAN MD Unavailable Unavailable ZAKARIYYA, HASTAMY MD Unavailable Unavailable ZAKARIYYA, HASAN MD Unavailable Unavailable ZAKARIYYA, HASAN MD Unavailable Unavailable ZAKARIYYA, HASAN MD Unavailable Unavailable ZAKARIYYA, HASTAMY MD Unavailable Unavailable ZAKARIYYA, HASTAMY MD Unavailable Unavailable ZAKARIYYA, HASTAMY MD Unavailable Unavailable ZAKARIYYA, HASTAMY MD Unavailable Unavailable ZAKARIYYA, HASAN MD Unavailable Unavailable ZAKARIYYA, HASTAMY MD Unavailable Unavailable ZAKARIYYA, HASTAMY MD Unavailable Unavailable JORGE MYERS MD Unavailable Unavailable JORGE MYERS MD Unavailable Unavailable JORGE MYERS MD Unavailable Unavailable JORGE MYERS MD Unavailable Unavailable JORGE MYERS MD Unavailable Unavailable JORGE MYERS MD Unavailable Unavailable JORGE MYERS MD Unavailable Unavailable JORGE MYERS MD Unavailable Unavailable JORGE MYRES MD Unavailable Unavailable JORGE MYERS MD Unavailable Unavailable JORGE MYERS MD Unavailable Unavailable JORGE MYERS MD Unavailable Unavailable JORGE MYERS MD Unavailable Unavailable JORGE MYERS MD Unavailable Unavailable JORGE MYERS MD Unavailable Unavailable JORGE MYERS MD Unavailable Unavailable JORGE MYERS MD Unavailable Unavailable JORGE MYERS MD Unavailable Unavailable JORGE MYERS MD Unavailable Unavailable JORGE MYERS MD Unavailable Unavailable JORGE MYERS MD Unavailable Unavailable JORGE MYERS MD Unavailable Unavailable JORGE MYERS MD Unavailable Unavailable JORGE MYERS MD Unavailable Unavailable JORGE MYERS MD Unavailable Unavailable JORGE MYERS MD Unavailable Unavailable JORGE MYERS MD Unavailable Unavailable JORGE MYERS MD Unavailable Unavailable JORGE MYERS MD Unavailable Unavailable JORGE MYERS MD Unavailable Unavailable Regina CARY MD Unavailable Unavailable Regina CARY MD Unavailable Unavailable Regina CARY MD Unavailable Unavailable Regina CARY MD Unavailable Unavailable Regina CARY MD Unavailable Unavailable Regina CARY MD Unavailable Unavailable Regina CARY MD Unavailable Unavailable Regina CARY MD Unavailable Unavailable Regina CARY MD Unavailable Unavailable Regina CARY MD Unavailable Unavailable Regina CARY MD Unavailable Unavailable Regina CARY MD Unavailable Unavailable Regina CARY MD Unavailable Unavailable Regina CARY MD Unavailable Unavailable Regina CARY MD Unavailable Unavailable Regina CARY MD Unavailable Unavailable Regina CARY MD Unavailable Unavailable Regina CARY MD Unavailable Unavailable Regina CARY MD Unavailable Unavailable Regina CARY MD Unavailable Unavailable Regina CARY MD Unavailable Unavailable Regina CARY MD Unavailable Unavailable Regina CARY MD Unavailable Unavailable Regina CARY MD Unavailable Unavailable Regina CARY MD Unavailable Unavailable Regina CARY MD Unavailable Unavailable Regina CARY MD Unavailable Unavailable Regina CARY MD Unavailable Unavailable Regina CARY MD Unavailable Unavailable Regina CARY MD Unavailable Unavailable Regina CARY MD Unavailable Unavailable Regina CARY MD Unavailable Unavailable Regina CARY MD Unavailable Unavailable Regina CARY MD Unavailable Unavailable Regina CARY MD Unavailable Unavailable CARYRegina Dye MD Unavailable Unavailable CARY, Regina ABBASI MD Unavailable Unavailable CARY, Regina ABBASI MD Unavailable Unavailable CARY, Regina ABBASI MD Unavailable Unavailable CARY, Regina ABBASI MD Unavailable Unavailable CARY, Regina ABBASI MD Unavailable Unavailable CARY, Regina ABBASI MD Unavailable Unavailable CARY, Regina ABBASI MD Unavailable Unavailable CARY, Regina ABBASI MD Unavailable Unavailable CARY, Regina ABBASI MD Unavailable Unavailable CARY, Regina ABBASI MD Unavailable Unavailable CARY, Regina ABBASI MD Unavailable Unavailable CARY, Regina ABBASI MD Unavailable Unavailable CARY, Regina ABBASI MD Unavailable Unavailable CARY, Regina ABBASI MD Unavailable Unavailable CARY, Regina ABBASI MD Unavailable Unavailable CARY, Regina ABBASI MD Unavailable Unavailable CARY, Regina ABBASI MD Unavailable Unavailable CARY, Regina ABBASI MD Unavailable Unavailable CARY, Regina ABBASI MD Unavailable Unavailable CARY, Regina ABBASI MD Unavailable Unavailable CARY, Regina ABBASI MD Unavailable Unavailable CARY, Regina ABBASI MD Unavailable Unavailable CARY, Regina ABBASI MD Unavailable Unavailable CARY, Regina ABBASI MD Unavailable Unavailable CARY, Regina ABBASI MD Unavailable Unavailable CARY, Regina ABBASI MD Unavailable Unavailable CARY, Regina ABBASI MD Unavailable Unavailable CARY, Regina ABBASI MD Unavailable Unavailable CARY, Regina ABBASI MD Unavailable Unavailable CARY, Regina ABBASI MD Unavailable Unavailable CARY, Regina ABBASI MD Unavailable Unavailable CARY, Regina ABBASI MD Unavailable Unavailable CARY, Regina ABBASI MD Unavailable Unavailable CARY, Regina ABBASI MD Unavailable Unavailable CARY, Regina ABBASI MD Unavailable Unavailable CARY, Reigna ABBASI MD Unavailable Unavailable CARY, Regina ABBASI MD Unavailable Unavailable CARY, Regina ABBASI MD Unavailable Unavailable CARY, Regina ABBASI MD Unavailable Unavailable CARY, Regina ABBASI MD Unavailable Unavailable CARY, Regina ABBASI MD Unavailable Unavailable CARY, Regina ABBASI MD Unavailable Unavailable CARY, Regina ABBASI MD Unavailable Unavailable CARY, Regina ABBASI MD Unavailable Unavailable CARY, Regina ABBASI MD Unavailable Unavailable CARY, Regina ABBASI MD Unavailable Unavailable CARY, Regina ABBASI MD Unavailable Unavailable CARY, Regina ABBASI MD Unavailable Unavailable CARY, Regina ABBASI MD Unavailable Unavailable CARY, Regina ABBASI MD Unavailable Unavailable CARY, Regina ABBASI MD Unavailable Unavailable CARY, Regina ABBASI MD Unavailable Unavailable CARY, Regina ABBASI MD Unavailable Unavailable CARY, Regina ABBASI MD Unavailable Unavailable CARY, Regina ABBASI MD Unavailable Unavailable CARY, Regina ABBASI MD Unavailable Unavailable CARY, Regina ABBASI MD Unavailable Unavailable CARY, Regina ABBASI MD Unavailable Unavailable CARY, Regina ABBASI MD Unavailable Unavailable CARY, Regina ABBASI MD Unavailable Unavailable CARY, Regina ABBASI MD Unavailable Unavailable CARY, Regina ABBASI MD Unavailable Unavailable CARY, Regina ABBASI MD Unavailable Unavailable CARY, T ELROY MD Unavailable Unavailable Regina CARY MD Unavailable Unavailable Regina CARY MD Unavailable Unavailable Regina CARY MD Unavailable Unavailable Regina CARY MD Unavailable Unavailable Regina CARY MD Unavailable Unavailable Regina CARY MD Unavailable Unavailable Regina CARY MD Unavailable Unavailable Regina CARY MD Unavailable Unavailable Regina CARY MD Unavailable Unavailable Regina CARY MD Unavailable Unavailable Regina CARY MD Unavailable Unavailable Regina CARY MD Unavailable Unavailable Regina CARY MD Unavailable Unavailable Regina CARY MD Unavailable Unavailable Regina CARY MD Unavailable Unavailable STERN, M ORLANDO PA Unavailable Unavailable STERN, M ORLANDO PA Unavailable Unavailable STERN, M ORLANDO PA Unavailable Unavailable STERN, M ORLANDO PA Unavailable Unavailable STERN, M ORLANDO PA Unavailable Unavailable STERN, M ORLANDO PA Unavailable Unavailable STERN, M ORLANDO PA Unavailable Unavailable STERN, M ORLANDO PA Unavailable Unavailable STERN, M ORLANDO PA Unavailable Unavailable STERN, M ORLANDO PA Unavailable Unavailable STERN, M ORLANDO PA Unavailable Unavailable STERN, M ORLANDO PA Unavailable Unavailable STERN, M ORLANDO PA Unavailable Unavailable STERN, M ORLANDO PA Unavailable Unavailable STERN, M ORLANDO PA Unavailable Unavailable STERN, M ORLANDO PA Unavailable Unavailable STERN, M ORLANDO PA Unavailable Unavailable STERN, M ORLANDO PA Unavailable Unavailable STERN, M ORLANDO PA Unavailable Unavailable STERN, M ORLANDO PA Unavailable Unavailable STERN, M ORLANDO PA Unavailable Unavailable STERN, M ORLANDO PA Unavailable Unavailable STERN, M ORLANDO PA Unavailable Unavailable STERN, M ORLANDO PA Unavailable Unavailable STERN, M ORLANDO PA Unavailable Unavailable STERN, M ORLANDO PA Unavailable Unavailable STERN, M ORLANDO PA Unavailable Unavailable STERN, M ORLANDO PA Unavailable Unavailable STERN, M ORLANDO PA Unavailable Unavailable STERN, M ORLANDO PA Unavailable Unavailable STERN, M ORLANDO PA Unavailable Unavailable STERN, M ORLANDO PA Unavailable Unavailable STERN, M ORLANDO PA Unavailable Unavailable Hunter Moreno MD Unavailable Unavailable Hunter Moreno MD Unavailable Unavailable Hunter Moreno MD Unavailable Unavailable Hunter Moreno MD Unavailable Unavailable Hunter Moreno MD Unavailable Unavailable Hunter Moreno MD Unavailable Unavailable Hunter Moreno MD Unavailable Unavailable Hunter Moreno MD Unavailable Unavailable Hunter Moreno MD Unavailable Unavailable Hunter Moreno MD Unavailable Unavailable Hunter Moreno MD Unavailable Unavailable Hunter Moreno MD Unavailable Unavailable Hunter Moreno MD Unavailable Unavailable Hunter Moreno MD Unavailable Unavailable Hunter Moreno MD Unavailable Unavailable Hunter Moreno MD Unavailable Unavailable Hunter Moreno MD Unavailable Unavailable Hunter Moreno MD Unavailable Unavailable Hunter Moreno MD Unavailable Unavailable Hunter Moreno MD Unavailable Unavailable Hunter Moreno MD Unavailable Unavailable Hunter Moreno MD Unavailable Unavailable Hunter Moreno MD Unavailable Unavailable Hunter Moreno MD Unavailable Unavailable Hunter Moreno MD Unavailable Unavailable Hunter Moreno MD Unavailable Unavailable Hunter Moreno MD Unavailable Unavailable Hunter Moreno MD Unavailable Unavailable Hunter Moreno MD Unavailable Unavailable Hunter Moreno MD Unavailable Unavailable Hunter Moreno MD Unavailable Unavailable Hunter Moreno MD Unavailable Unavailable Hunter Moreno MD Unavailable Unavailable Hunter Moreno MD Unavailable Unavailable Hunter Moreno MD Unavailable Unavailable Hunter Moreno MD Unavailable Unavailable Hunter Moreno MD Unavailable Unavailable Hunter Moreno MD Unavailable Unavailable Hunter Moreno MD Unavailable Unavailable Hunter Moreno MD Unavailable Unavailable Hunter Moreno MD Unavailable Unavailable Hunter Moreno MD Unavailable Unavailable Hunter Moreno MD Unavailable Unavailable Hunter Moreno MD Unavailable Unavailable Hunter Moreno MD Unavailable Unavailable Hunter Moreno MD Unavailable Unavailable Hunter Moreno MD Unavailable Unavailable Hunter Moreno MD Unavailable Unavailable Hunter Moreno MD Unavailable Unavailable Hunter Moreno MD Unavailable Unavailable Hunter Moreno MD Unavailable Unavailable Tiffanie, O Samah MD Unavailable Unavailable Tiffanie, O Samah MD Unavailable Unavailable Tiffanie, O Samah MD Unavailable Unavailable Tiffanie, O Samah MD Unavailable Unavailable Tiffanie, O Samah MD Unavailable Unavailable Tiffanie, O Samah MD Unavailable Unavailable Tiffanie, O Samah MD Unavailable Unavailable Tiffanie, O Samah MD Unavailable Unavailable Tiffanie, O Samah MD Unavailable Unavailable Tiffanie, O Samah MD Unavailable Unavailable Tiffanie, O Samah MD Unavailable Unavailable Tiffanie, O Samah MD Unavailable Unavailable Tiffanie, O Samah MD Unavailable Unavailable Tiffanie, O Samah MD Unavailable Unavailable Tiffanie, O Samah MD Unavailable Unavailable Tiffanie, O Samah MD Unavailable Unavailable Tiffanie, O Samah MD Unavailable Unavailable Tiffanie, O Samah MD Unavailable Unavailable Tiffanie, O Samah MD Unavailable Unavailable Tiffanie, O Samah MD Unavailable Unavailable Tiffanie, O Samah MD Unavailable Unavailable Tiffanie, O Samah MD Unavailable Unavailable Tiffanie, O Samah MD Unavailable Unavailable Tiffanie, O Samah MD Unavailable Unavailable Tiffanie, O Samah MD Unavailable Unavailable SYSTEM IN, NOT IN PROVIDER Unavailable Unavailable ZHANG, SHOMA PH.D. Unavailable Unavailable ZHANG, SHOMA PH.D. Unavailable Unavailable ZHANG, SHOMA PH.D. Unavailable Unavailable ZHANG, SHOMA PH.D. Unavailable Unavailable ZHANG, SHOMA PH.D. Unavailable Unavailable ZHANG, SHOMA PH.D. Unavailable Unavailable ZHANG, SHOMA PH.D. Unavailable Unavailable ZHANG, SHOMA PH.D. Unavailable Unavailable ZHANG, SHOMA PH.D. Unavailable Unavailable ZHANG, SHOMA PH.D. Unavailable Unavailable ZHANG, SHOMA PH.D. Unavailable Unavailable Re-disclosure Warning The records that you are about to access may contain information from federally-assisted alcohol or drug abuse programs. If such information is present, then the following federally mandated warning applies: This information has been disclosed to you from records protected by federal confidentiality rules (42 CFR part 2). The federal rules prohibit you from making any further disclosure of this information unless further disclosure is expressly permitted by the written consent of the person to whom it pertains or as otherwise permitted by 42 CFR part 2. A general authorization for the release of medical or other information is NOT sufficient for this purpose. The Federal rules restrict any use of the information to criminally investigate or prosecute any alcohol or drug abuse patient.The records that you are about to access may contain highly sensitive health information, the redisclosure of which is protected by Article 27-F of the [facility] Public Health law. If you continue you may have access to information: Regarding HIV / AIDS; Provided by facilities licensed or operated by the [facility] Office of Mental Health; or Provided by the [facility] Office for People With Developmental Disabilities. If such information is present, then the following [facility] mandated warning applies: This information has been disclosed to you from confidential records which are protected by state law. State law prohibits you from making any further disclosure of this information without the specific written consent of the person to whom it pertains, or as otherwise permitted by law. Any unauthorized further disclosure in violation of state law may result in a fine or alf sentence or both. A general authorization for the release of medical or other information is NOT sufficient authorization for further disc losure. Allergies and Adverse Reactions Type Description Substance Reaction Status Data Source(s ) Drug allergy Penicillin (For Allergies Use Only) Drug allergy Hives Active eCW1 ([facility]) Family History Family Member Name Family Member Gender Family Member Status Date o f Status Description Data Source(s) Unknown Unknown Problem MEDENT ([facility]) Unknown Unknown Problem MEDENT ([facility]) father,brother Unknown Male Problem MEDENT ([facility]) () Unknown Male Problem MEDENT ([facility]) Encounters Encounter Providers Location Date Indications Data Source(s ) Unknown [address] [facility] [address] 11/18/2020 12:00:00 AM EST eCW1 ([facility]) Outpatient [address] [facility] [place] [address] 11/04/2020 12:00:00 AM EST eCW1 ([facility]) Unknown [address] [facility] [place] [address] 10/27/2020 12:00:00 AM EST eCW1 ([facility]) Office Visit, Est Pt., Level [address] [place] [address] 10/13/2020 12:00:00 AM EST eCW1 ([facility]) Unknown [address] [facility] [place] [address] 10/08/2020 12:00:00 AM EST [facility]1 [facility] Unknown [address] [facility] [place] [address] 09/27/2020 12:00:00 AM EST [facility]CW1 [facility] Unknown [address] [facility] [place] [address] 09/21/2020 12:00:00 AM EST [facility]) Outpatient Attender: Jese Moreno MD Main office - [facility] 09/09/2020 07:00:00 AM EST MEDENT ([facility], ) Outpatient [address] [facility] [id number] 09/03/2020 12:00:00 AM EST eCW1 ([facility]) Unknown [address] [facility] [place] [address] 08/19/2020 12:00:00 AM EST [facility]CW[facility]) Outpatient Attender: Christine VELASQUEZ-SJAbrahanSHAINA 12:00:00 AM EST [facility] Unknown [address] [facility] [place] [address] 08/04/2020 12:00:00 AM EST eCW1 ([facility] Unknown [address] [facility] [place] [address] 07/26/2020 12:00:00 AM EDT [facility]CW1 [facility]) Office Visit, Est Pt., Level 4 PC [address] [place] [address] 07/22/2020 12:00:00 AM EDT eCW1 ([facility]) Unknown [address] [facility] [address] 07/22/2020 12:00:00 AM EDT eCW1 ([facility]) Inpatient Attender: ILIANA ZHANG PH.D.A ttender: JOAQUIM HERRING MDAttender: JOIE MYERS MDAttender: ZAHIRA BUSTILLO MDAdmitter: ZAHIRA BUSTILLO MD 07/05/2020 08:00:23 PM EDT [facility] Inpatient Attender: JOAQUIM HERRING MDA ttender: JOIE MYERS MDAttender: MAGAN CHAN MDAttender: ILIANA ZHANG PH.D.Admitter: MAGAN CHAN MD 07/05/2020 05:47:00 PM EDT - 07/12/2020 06:59:00 PM EDT T7-T8 OSTEOMYLITIS PNEUMONIA ACUTE CHRONIC KIDNEY DISEASE [facility] T7-T8 OSTEOMYLITIS PNEUMONIA ACUTE CHRON IC KIDNEY DISEASE Patient discharged. Inpatient Attender: [id number] STEVENSONAttender: JOIE MYERS MD 07/05/2020 05:47:00 PM EDT [facility] ( in Healthcare facility) Attender: ESTHER MYERS MDAdmitter: MAGAN CHAN MD 07/05/2020 05:47:[address] [facility] Outpatient Referrer: PROVIDER SYSTEM IN 07/05/2020 1 2:57:00 PM EDT 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itis [facility] 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 itis Unknown [address] [facility] [id number] 04/16/2020 12:00:00 AM EDT eCW1 ([facility]) Outpatient Attender: ELROY CARY MDReferrer: Lili Garcia 03/17/2020 08:28:23 AM EDT [facility] Recurring Patient Attender: ELROY CARY MDReferrer: Aurelio whipple MD 03/09/2020 04:09:56 PM EDT [facility] [place] [address] [place] [address], [place] [address] 02/17/2020 12:00:00 AM EDT eCW1 ([facility]) [facility] [address] [place] [address] [place] [address] 02/17/2020 12:00:00 AM EDT eCW1 ([facility]) [facility] [address] [facility] [address] 01/22/2020 12:00:00 AM EDT eCW1 ([facility]) [facility] [address] [place] [address], [place] [address] 01/21/2020 12:00:00 AM EDT eCW1 ([facility]) [address] [address] 12/30/2019 12:00:00 AM EDT eCW1 ([facility]) [address] [address] 12/22/2019 12:00:00 AM EDT eCW1 ([facility]) Outpatient Referrer: Lili WHITE 12/10/2019 05:59:00 AM E DT [facility] [address] [address] 12/02/2019 12:00:00 AM EST eCW1 ([facility]) [address] [address] 11/27/2019 12:00:00 AM EST eCW1 ([facility]) [address] [address] 11/21/2019 12:00:00 AM EST eCW1 ([facility]) [address] [address] 11/11/2019 12:00:00 AM EST eCW1 ([facility]) [address] [address] 11/03/2019 12:00:00 AM EST eCW1 ([facility]) [address] [address] 10/29/2019 12:00:00 AM EST eCW1 ([facility]) [address] [place] [address] [address] 10/27/2019 12:00:00 AM EST eCW1 ([facility]) Outpatient Referrer: Lili WHITE 10/23/2019 02:00:00 PM E [facility] Outpatient Attender: Krupa DOMINGUEZ Main Office 10/23/2019 11:45:0 0 AM EST MEDENT ([facility]) [address] [address] 10/21/2019 12:00:00 AM EST eCW1 ([facility]) [address] [address] 10/15/2019 12:00:00 AM EST eCW1 ([facility]) [address] [address] 10/10/2019 12:00:00 AM EST eCW1 ([facility]) Outpatient Attender: ORLANDO Bah/Sania/Ezequiel/Ari dl 10/08/2019 10:30:00 AM EST MEDENT ([facility]) [address] [address] 09/30/2019 12:00:00 AM EST eCW1 ([facility]) Immunizations Vaccine Date Status Description Data Source(s) New in 2011. IIV4 07/23/2020 11:38:00 AM EDT completed MEDENT ([facility]) Medications Medication Brand Name Start Date Product Form Dose Route Admi nistrative Instructions Pharmacy Instructions Status Indications Reaction Description Data Source(s) Bumetanide 0.5 MG Oral Tablet BUMETANIDE 11/20/2020 12:00:00 AM EST ta blet 90 TAKE ONE TABLET BY MOUTH EVERY DAY TAKE ONE TABLET BY MOUTH EVERY DAY SOLD: 11/22/2020 [facility] 80 mg 11/11/2020 12:00:00 AM EST tablet 30 TAKE ONE TABLET BY MOUTH EVERY DAY TAKE ONE TABLET BY MOUTH EVERY DAY SOLD: 11/12/2020 [facility] 90 mcg/actuation 11/06/2020 12:00:00 AM EST HFA aerosol inha ler 18 INHALE TWO PUFFS BY MOUTH FOUR TIMES A DAY NEEDED INHALE TWO PUFFS BY MOUTH FOUR TIMES A DAY NEEDED SOLD: 11/07/2020 [facility] 1.5 mg/0.5 mL 11/01/2020 12:00:00 AM EST pen injector 4 INJECT 1 SUBCUTANEOUSLY WEEKLY INJECT 1 SUBCUTANEOUSLY WEEKLY SOLD: 11/07/2020 [facility] 100 unit/mL (3 mL) 10/30/2020 12:00:00 AM EST insulin pen 15 INJECT 40 UNITS SUBCUTANEOUSLY DAILY INJECT 40 UNITS SUBCUTANEOUSLY DAILY SOLD: 10/31/2020 [facility] 100 mg 10/27/2020 12:00:00 AM EST capsule 180 TAKE ONE CAPSULE BY MOUTH TWICE A DAY TAKE ONE CAPSULE BY MOUTH TWICE A DAY SOLD: 10/31/2020 [facility] 25 mg 10/27/2020 12:00:00 AM EST tablet 90 TAKE ONE TABLET BY MOUTH EVERY DAY TAKE ONE TABLET BY MOUTH EVERY DAY SOLD: 10/31/2020 [facility] 10 mg 10/27/2020 12:00:00 AM EST tablet 60 TAKE ONE TABLET BY MOUTH TWICE A DAY TAKE ONE TABLET BY MOUTH TWICE A DAY SOLD: 10/31/2020 [facility] 20 mg 10/14/2020 12:00:00 AM EST tablet,delayed release (DR/EC) 30 TAKE ONE TABLET BY MOUTH EVERY DAY TAKE ONE TABLET BY MOUTH EVERY DAY SOLD: 10/16/2020 [facility] pantoprazole 20 MG Delayed Release Oral Tablet Pantopr azole Sodium 20 MG Pantoprazole Sodium 20 MG 10/13/2020 12:00:00 AM EST 1.0 {tablet} suspended Pantoprazole Sodium 20 MG eCW1 ( [facility]) [employer] [facility] - [employer] [facility] [employer]ensor Sy[employer] m - 10/13/2020 12:00:00 AM EST active [employer] - eCW1 ([facility]) [employer] [place] - [employer] [facility] [place] - 10/13/2020 12:00: 00 AM EST active [employer] [place] - eCW1 ([facility]) [employer] - [employer] [facility] - 10/13/2020 12:00: 00 AM EST active [employer] [place] - eCW1 ([facility]) [employer] - [employer] Margie Sensor Syste m - 10/13/2020 12:00:00 AM EST active [employer] - eCW1 ([facility]) pantoprazole 20 MG Delayed Release Oral Tablet Pantopr azole Sodium 20 MG Pantoprazole Sodium 20 MG 10/13/2020 12:00:00 AM EST 1.0 {tablet} suspended Pantoprazole Sodium 20 MG eCW1 ( [facility]) [employer]ie [employer] - [employer] Margie Sensor Syste m - 10/13/2020 12:00:00 AM EST active [employer] - eCW1 ([facility]) [employer] [place] - [employer] [place] - 10/13/2020 12:00: 00 AM EST active [employer] [place] - eCW1 ([facility]) pantoprazole 20 MG Delayed Release Oral Tablet Pantopr azole Sodium 20 MG Pantoprazole Sodium 20 MG 10/13/2020 12:00:00 AM EST 1.0 {tablet} active Pantoprazole Sodium 20 MG eCW1 ( [facility]) pantoprazole 20 MG Delayed Release Oral Tablet Pantopr azole Sodium 20 MG Pantoprazole Sodium 20 MG 10/13/2020 12:00:00 AM EST 1.0 {tablet} active Pantoprazole Sodium 20 MG eCW1 ( [facility]) [employer] - [employer] [facility] [place] - 10/13/2020 12:00: 00 AM EST active [employer] [place] - eCW1 ([facility]) [employer] - [employer] Margie Sensor Syste m - 10/13/2020 12:00:00 AM EST active [employer] - eCW1 ([facility]) 31 gauge x 1/4" 10/05/2020 12:00:00 AM EST needle 30 INJECT ONCE DAILY DIRECTED INJECT ONCE DAILY DIRECTED SOLD: 11/07/2020 [facility] 31 gauge x 1/4" 10/05/2020 12:00:00 AM EST needle 30 INJECT ONCE DAILY DIRECTED INJECT ONCE DAILY DIRECTED SOLD: 10/07/2020 [facility] 25 mg 09/28/2020 12:00:00 AM EST tablet 30 TAKE ONE TABLET BY MOUTH EVERY DAY TAKE ONE TABLET BY MOUTH EVERY DAY SOLD: 09/30/2020 [facility] 80 mg 09/13/2020 12:00:00 AM EST tablet 30 TAKE ONE TABLET BY MOUTH EVERY DAY TAKE ONE TABLET BY MOUTH EVERY DAY SOLD: 09/16/2020 [facility] 10 mg 09/06/2020 12:00:00 AM EST tablet 30 TAKE ONE TABLET BY MOUTH EVERY DAY TAKE ONE TABLET BY MOUTH EVERY DAY SOLD: 10/07/2020 [facility] 10 mg 09/06/2020 12:00:00 AM EST tablet 30 TAKE ONE TABLET BY MOUTH EVERY DAY TAKE ONE TABLET BY MOUTH EVERY DAY SOLD: 09/08/2020 [facility] 10 mg 09/06/2020 12:00:00 AM EST tablet 30 TAKE ONE TABLET BY MOUTH EVERY DAY TAKE ONE TABLET BY MOUTH EVERY DAY SOLD: 11/07/2020 [facility] atorvastatin 80 MG Oral Tablet ATORVASTATIN CALCIUM 08/09/2020 1 2:00:00 AM EST tablet 30 TAKE ONE TABLET BY MOUTH EVERY D AY TAKE ONE TABLET BY MOUTH EVERY DAY SOLD: 08/10/2020 [facility] 0.25 mcg 07/31/2020 12:00:00 AM EDT capsule 36 ONE CAPSULE BY MOUTH ON SUNDAY, SUNDAY AND SUNDAY ONE CAPSULE BY MOUTH ON SUNDAY, AND SUNDAY SOLD: 08/03/2020 [facility] 62.5 mcg/actuation 07/31/2020 12:00:00 AM EDT blister with d evice 90 INHALE ONE PUFF BY MOUTH EVERY DAY INHALE ONE PUFF BY MOUTH EVERY DAY SOLD: 10/31/2020 [facility] 62.5 mcg/actuation 07/31/2020 12:00:00 AM EDT blister with d evice 90 INHALE ONE PUFF BY MOUTH EVERY DAY INHALE ONE PUFF BY MOUTH EVERY DAY SOLD: 08/03/2020 [facility] Calcitriol 0.46969 MG Oral Capsule 0.25 mcg CALCITRIOL 07/31/2020 12:00:00 AM EDT capsule 36 ONE CAPSULE BY MOUTH ON , SUNDAY AND SUNDAY ONE CAPSULE BY MOUTH ON SUNDAY, SUNDAY AND SUNDAY SOLD: 10/26/2020 [facility] 10 mg 07/28/2020 12:00:00 AM EDT tablet 60 TAKE ONE TABLET BY MOUTH TWICE A DAY TAKE ONE TABLET BY MOUTH TWICE A DAY SOLD: 08/31/2020 [facility] 10 mg 07/28/2020 12:00:00 AM EDT tablet 60 TAKE ONE TABLET BY MOUTH TWICE A DAY TAKE ONE TABLET BY MOUTH TWICE A DAY SOLD: 09/30/2020 [facility] 10 mg 07/28/2020 12:00:00 AM EDT tablet 60 TAKE ONE TABLET BY MOUTH TWICE A DAY TAKE ONE TABLET BY MOUTH TWICE A DAY SOLD: 11/22/2020 [facility] Hydralazine Hydrochloride 10 MG Oral Tablet HYDRALAZINE HCL 07/28/2020 12:00:00 AM EDT tablet 60 TAKE ONE TABLET BY MOUTH TWI CE A DAY TAKE ONE TABLET BY MOUTH TWICE A DAY SOLD: 07/28/2020 [facility] Cyclobenzaprine hydrochloride 5 MG Oral Tablet CYCLOBENZAPRI NE HCL 07/26/2020 12:00:00 AM EDT tablet 60 TAKE ONE TABLET BY MOUTH TWICE A DAY NEEDED FOR BACK SPASM TAKE ONE TABLET BY MOUTH TWICE A DAY NEEDED FOR RHETT K SPASM SOLD: 07/28/2020 [facility] 90 mcg/actuation 07/23/2020 12:00:00 AM EDT HFA aerosol inha ler 18 INHALE TWO PUFFS BY MOUTH FOUR TIMES A DAY NEEDED INHALE TWO PUFFS BY MOUTH FOUR TIMES A DAY NEEDED SOLD: 10/14/2020 [facility] 90 mcg/actuation 07/23/2020 12:00:00 AM EDT HFA aerosol inha ler 18 INHALE TWO PUFFS BY MOUTH FOUR TIMES A DAY NEEDED INHALE TWO PUFFS BY MOUTH FOUR TIMES A DAY NEEDED SOLD: 08/21/2020 [facility] 90 mcg/actuation 07/23/2020 12:00:00 AM EDT HFA aerosol inha ler 18 INHALE TWO PUFFS BY MOUTH FOUR TIMES A DAY NEEDED INHALE TWO PUFFS BY MOUTH FOUR TIMES A DAY NEEDED SOLD: 07/26/2020 [facility] 90 mcg/actuation 07/23/2020 12:00:00 AM EDT HFA aerosol inha ler 18 INHALE TWO PUFFS BY MOUTH FOUR TIMES A DAY NEEDED INHALE TWO PUFFS BY MOUTH FOUR TIMES A DAY NEEDED SOLD: 09/16/2020 [facility] Cyclobenzaprine hydrochloride 5 MG Oral Tablet Cyclobe nzaprine HCl 5 MG Cyclobenzaprine HCl 5 MG 07/22/2020 12:00:00 AM EDT active Cyclobenzaprine HCl 5 MG eCW1 ([facility]) 25 mg 07/22/2020 12:00:00 AM EDT tablet 30 TAKE ONE TABLET BY MOUTH EVERY DAY TAKE ONE TABLET BY MOUTH EVERY DAY SOLD: 08/31/2020 [facility] Cyclobenzaprine hydrochloride 5 MG Oral Tablet Cyclobe nzaprine HCl 5 MG Cyclobenzaprine HCl 5 MG 07/22/2020 12:00:00 AM EDT active Cyclobenzaprine HCl 5 MG eCW1 ([facility]) Sertraline 25 MG Oral Tablet Sertraline HCl 25 MG Sertraline HCl 25 MG 07/22/2020 12:00:00 AM EDT 1.0 {tablet} active Sertraline HCl 25 MG eCW1 ([facility]) Cyclobenzaprine hydrochloride 5 MG Oral Tablet Cyclobe nzaprine HCl 5 MG Cyclobenzaprine HCl 5 MG 07/22/2020 12:00:00 AM EDT active Cyclobenzaprine HCl 5 MG eCW1 ([facility]) 25 mg 07/22/2020 12:00:00 AM EDT tablet 30 TAKE ONE TABLET BY MOUTH EVERY DAY TAKE ONE TABLET BY MOUTH EVERY DAY SOLD: 07/26/2020 [facility] Sertraline 25 MG Oral Tablet Sertraline HCl 25 MG Sertraline HCl 25 MG 07/22/2020 12:00:00 AM EDT 1.0 {tablet} active Sertraline HCl 25 MG eCW1 ([facility]) Cyclobenzaprine hydrochloride 5 MG Oral Tablet Cyclobe nzaprine HCl 5 MG Cyclobenzaprine HCl 5 MG 07/22/2020 12:00:00 AM EDT active Cyclobenzaprine HCl 5 MG eCW1 ([facility]) Cyclobenzaprine hydrochloride 5 MG Oral Tablet Cyclobe nzaprine HCl 5 MG Cyclobenzaprine HCl 5 MG 07/22/2020 12:00:00 AM EDT active Cyclobenzaprine HCl 5 MG eCW1 ([facility]) Cyclobenzaprine hydrochloride 5 MG Oral Tablet Cyclobe nzaprine HCl 5 MG Cyclobenzaprine HCl 5 MG 07/22/2020 12:00:00 AM EDT suspended Cyclobenzaprine HCl 5 MG eCW1 ([facility]) Cyclobenzaprine hydrochloride 5 MG Oral Tablet Cyclobe nzaprine HCl 5 MG Cyclobenzaprine HCl 5 MG 07/22/2020 12:00:00 AM EDT suspended Cyclobenzaprine HCl 5 MG eCW1 ([facility]) Cyclobenzaprine hydrochloride 5 MG Oral Tablet Cyclobe nzaprine HCl 5 MG Cyclobenzaprine HCl 5 MG 07/22/2020 12:00:00 AM EDT active Cyclobenzaprine HCl 5 MG eCW1 ([facility]) Sertraline 25 MG Oral Tablet Sertraline HCl 25 MG Sertraline HCl 25 MG 07/22/2020 12:00:00 AM EDT 1.0 {tablet} active Sertraline HCl 25 MG eCW1 ([facility]) Cyclobenzaprine hydrochloride 5 MG Oral Tablet Cyclobe nzaprine HCl 5 MG Cyclobenzaprine HCl 5 MG 07/22/2020 12:00:00 AM EDT active Cyclobenzaprine HCl 5 MG eCW1 ([facility]) Sertraline 25 MG Oral Tablet Sertraline HCl 25 MG Sertraline HCl 25 MG 07/22/2020 12:00:00 AM EDT 1.0 {tablet} active Sertraline HCl 25 MG eCW1 ([facility]) Sertraline 25 MG Oral Tablet Sertraline HCl 25 MG Sertraline HCl 25 MG 07/22/2020 12:00:00 AM EDT 1.0 {tablet} active Sertraline HCl 25 MG eCW1 ([facility]) Cyclobenzaprine hydrochloride 5 MG Oral Tablet Cyclobe nzaprine HCl 5 MG Cyclobenzaprine HCl 5 MG 07/22/2020 12:00:00 AM EDT active Cyclobenzaprine HCl 5 MG eCW1 ([facility]) Cyclobenzaprine hydrochloride 5 MG Oral Tablet Cyclobe nzaprine HCl 5 MG Cyclobenzaprine HCl 5 MG 07/22/2020 12:00:00 AM EDT active Cyclobenzaprine HCl 5 MG eCW1 ([facility]) Sertraline 25 MG Oral Tablet Sertraline HCl 25 MG Sertraline HCl 25 MG 07/22/2020 12:00:00 AM EDT 1.0 {tablet} active Sertraline HCl 25 MG eCW1 ([facility]) Sertraline 25 MG Oral Tablet Sertraline HCl 25 MG Sertraline HCl 25 MG 07/22/2020 12:00:00 AM EDT 1.0 {tablet} active Sertraline HCl 25 MG eCW1 ([facility]) Cyclobenzaprine hydrochloride 5 MG Oral Tablet Cyclobe nzaprine HCl 5 MG Cyclobenzaprine HCl 5 MG 07/22/2020 12:00:00 AM EDT active Cyclobenzaprine HCl 5 MG eCW1 ([facility]) Cyclobenzaprine hydrochloride 5 MG Oral Tablet Cyclobe nzaprine HCl 5 MG Cyclobenzaprine HCl 5 MG 07/22/2020 12:00:00 AM EDT active Cyclobenzaprine HCl 5 MG eCW1 ([facility]) Sertraline 25 MG Oral Tablet Sertraline HCl 25 MG Sertraline HCl 25 MG 07/22/2020 12:00:00 AM EDT 1.0 {tablet} active Sertraline HCl 25 MG eCW1 ([facility]) 1,250 mcg (50,000 unit) 07/20/2020 12:00:00 AM EDT capsule 4 TAKE 1 CAPSULE BY MOUTH ONCE A WEEK FOR 8 WEEKS TAKE 1 CAPSULE BY MOUTH ONCE A WEEK FOR 8 WEEKS SOLD: 07/21/2020 [facility] 1,250 mcg (50,000 unit) 07/20/2020 12:00:00 AM EDT capsule 4 TAKE 1 CAPSULE BY MOUTH ONCE A WEEK FOR 8 WEEKS TAKE 1 CAPSULE BY MOUTH ONCE A WEEK FOR 8 WEEKS SOLD: 08/21/2020 [facility] Bumetanide 1 MG Oral Tablet BUMETANIDE 07/13/2020 12:00:00 AM EDT tabl et 30 TAKE ONE TABLET BY MOUTH EVERY DAY TAKE ONE TABLET BY MOUTH EVERY DAY SOLD: 07/14/2020 [facility] Bumetanide 1 MG Oral Tablet BUMETANIDE 06/16/2020 12:00:00 AM EDT tabl et 60 TAKE TWO TABLETS BY MOUTH EVERY DAY TAKE TWO TABLETS BY MOUTH EVERY DAY SOLD: 10/31/2020 [facility] Bumetanide 1 MG Oral Tablet BUMETANIDE 06/16/2020 12:00:00 AM EDT tabl et 60 TAKE TWO TABLETS BY MOUTH EVERY DAY TAKE TWO TABLETS BY MOUTH EVERY DAY SOLD: 2020 [facility] Bumetanide 1 MG Oral Tablet BUMETANIDE 06/16/2020 12:00:00 AM EDT tabl et 60 TAKE TWO TABLETS BY MOUTH EVERY DAY TAKE TWO TABLETS BY MOUTH EVERY DAY SOLD: 08/31/2020 [facility] Bumetanide 1 MG Oral Tablet BUMETANIDE 06/16/2020 12:00:00 AM EDT tabl et 60 TAKE TWO TABLETS BY MOUTH EVERY DAY TAKE TWO TABLETS BY MOUTH EVERY DAY SOLD: 07/26/2020 [facility] Bumetanide 1 MG Oral Tablet BUMETANIDE 06/16/2020 12:00:00 AM EDT tabl et 60 TAKE TWO TABLETS BY MOUTH EVERY DAY TAKE TWO TABLETS BY MOUTH EVERY DAY SOLD: 09/30/2020 [facility] 200 mcg/actuation 05/31/2020 12:00:00 AM EDT blister with de vice 90 INHALE ONE PUFF BY MOUTH EVERY DAY INHALE ONE PUFF BY MOUTH EVERY DAY SOLD: 06/14/2020 [facility] 200 mcg/actuation 05/31/2020 12:00:00 AM EDT blister with de vice 90 INHALE ONE PUFF BY MOUTH EVERY DAY INHALE ONE PUFF BY MOUTH EVERY DAY SOLD: 09/16/2020 [facility] BLOOD-GLUCOSE METER 05/19/2020 12:00:00 AM EDT misc 1 USE DIRECTED USE DIRECTED SOLD: 05/19/2020 [facility] 100 unit/mL (3 mL) 05/07/2020 12:00:00 AM EDT insulin pen 15 INJECT 2 UNITS SUBCUTANEOUSLY THREE TIMES A DAY WITH MEALS INJECT 2 UNITS SUBCUTANEOUSLY THREE TIMES A DAY WITH MEALS SOLD: 05/10/2020 [facility] 100 unit/mL (3 mL) 05/07/2020 12:00:00 AM EDT insulin pen 15 INJECT 2 UNITS SUBCUTANEOUSLY THREE TIMES A DAY WITH MEALS INJECT 2 UNITS SUBCUTANEOUSLY THREE TIMES A DAY WITH MEALS SOLD: 08/08/2020 [facility] 100 unit/mL (3 mL) 05/07/2020 12:00:00 AM EDT insulin pen 15 INJECT 2 UNITS SUBCUTANEOUSLY THREE TIMES A DAY WITH MEALS INJECT 2 UNITS SUBCUTANEOUSLY THREE TIMES A DAY WITH MEALS SOLD: 11/01/2020 [facility] 10 mg 04/01/2020 12:00:00 AM EDT tablet 30 TAKE ONE TABLET BY MOUTH EVERY DAY TAKE ONE TABLET BY MOUTH EVERY DAY SOLD: 06/14/2020 [facility] 10 mg 04/01/2020 12:00:00 AM EDT tablet 30 TAKE ONE TABLET BY MOUTH EVERY DAY TAKE ONE TABLET BY MOUTH EVERY DAY SOLD: 07/13/2020 [facility] 10 mg 04/01/2020 12:00:00 AM EDT tablet 30 TAKE ONE TABLET BY MOUTH EVERY DAY TAKE ONE TABLET BY MOUTH EVERY DAY SOLD: 08/10/2020 [facility] 10 mg 04/01/2020 12:00:00 AM EDT tablet 30 TAKE ONE TABLET BY MOUTH EVERY DAY TAKE ONE TABLET BY MOUTH EVERY DAY SOLD: 05/04/2020 [facility] 10 mg 04/01/2020 12:00:00 AM EDT tablet 30 TAKE ONE TABLET BY MOUTH EVERY DAY TAKE ONE TABLET BY MOUTH EVERY DAY SOLD: 04/03/2020 [facility] 31 gauge x 1/4" 03/31/2020 12:00:00 AM EDT needle 30 INJECT DIRECTED ONCE DAILY INJECT DIRECTED ONCE DAILY SOLD: 05/04/2020 [facility] 2.5 mg 03/31/2020 12:00:00 AM EDT tablet 90 TAKE THREE TABLETS BY MOUTH EVERY DAY TAKE THREE TABLETS BY MOUTH EVERY DAY SOLD: 04/01/2020 [facility] 31 gauge x 1/4" 03/31/2020 12:00:00 AM EDT needle 30 INJECT DIRECTED ONCE DAILY INJECT DIRECTED ONCE DAILY SOLD: 06/14/2020 [facility] 31 gauge x 1/4" 03/31/2020 12:00:00 AM EDT needle 30 INJECT DIRECTED ONCE DAILY INJECT DIRECTED ONCE DAILY SOLD: 09/08/2020 [facility] 31 gauge x 1/4" 03/31/2020 12:00:00 AM EDT needle 30 INJECT DIRECTED ONCE DAILY INJECT DIRECTED ONCE DAILY SOLD: 07/13/2020 [facility] 31 gauge x 1/4" 03/31/2020 12:00:00 AM EDT needle 30 INJECT DIRECTED ONCE DAILY INJECT DIRECTED ONCE DAILY SOLD: 08/10/2020 [facility] 31 gauge x 1/4" 03/31/2020 12:00:00 AM EDT needle 30 INJECT DIRECTED ONCE DAILY INJECT DIRECTED ONCE DAILY SOLD: 04/01/2020 [facility] 25 mg 02/15/2020 12:00:00 AM EDT tablet 90 TAKE ONE TABLET BY MOUTH EVERY DAY TAKE ONE TABLET BY MOUTH EVERY DAY SOLD: 05/19/2020 [facility] 25 mg 02/15/2020 12:00:00 AM EDT tablet 90 TAKE ONE TABLET BY MOUTH EVERY DAY TAKE ONE TABLET BY MOUTH EVERY DAY SOLD: 02/17/2020 [facility] 25 mg 02/15/2020 12:00:00 AM EDT tablet 90 TAKE ONE TABLET BY MOUTH EVERY DAY TAKE ONE TABLET BY MOUTH EVERY DAY SOLD: 08/21/2020 [facility] Calcitriol 0.78702 MG Oral Capsule 0.25 mcg CALCITRIOL 02/13/2020 12:00:00 AM EDT capsule 36 ONE CAPSULE BY MOUTH ON , SUNDAY AND SUNDAY ONE CAPSULE BY MOUTH ON SUNDAY, SUNDAY AND SUNDAY SOLD: 05/10/2020 [facility] Calcitriol 0.19131 MG Oral Capsule 0.25 mcg CALCITRIOL 02/13/2020 12:00:00 AM EDT capsule 36 ONE CAPSULE BY MOUTH ON , SUNDAY AND SUNDAY ONE CAPSULE BY MOUTH ON SUNDAY, SUNDAY AND SUNDAY SOLD: 02/17/2020 [facility] Bumetanide 1 MG Oral Tablet BUMETANIDE 02/12/2020 12:00:00 AM EDT tabl et 60 TAKE TWO TABLETS BY MOUTH EVERY DAY TAKE TWO TABLETS BY MOUTH EVERY DAY SOLD: 05/19/2020 [facility] Bumetanide 1 MG Oral Tablet BUMETANIDE 02/12/2020 12:00:00 AM EDT tabl et 60 TAKE TWO TABLETS BY MOUTH EVERY DAY TAKE TWO TABLETS BY MOUTH EVERY DAY SOLD: 03/23/2020 [facility] Bumetanide 1 MG Oral Tablet BUMETANIDE 02/12/2020 12:00:00 AM EDT tabl et 60 TAKE TWO TABLETS BY MOUTH EVERY DAY TAKE TWO TABLETS BY MOUTH EVERY DAY SOLD: 02/17/2020 [facility] 100 unit/mL (3 mL) 01/23/2020 12:00:00 AM EDT insulin pen 15 INJECT 2 UNITS BEFORE MEALS MAXIMUM DAILY DOSE = 6 UNITS 5 PENS 140 DAYS INJECT 2 UNITS BEFORE MEALS MAXIMUM DAILY DOSE = 6 UNITS 5 PENS 140 DAYS SOLD: 01/28/2020 [facility] gabapentin 100 MG Oral Capsule Gabapentin 100 MG Gabapentin 100 MG 01/21/2020 12:00:00 AM EDT 1.0 {capsule} active G abapentin 100 MG eCW1 ([facility]) gabapentin 100 MG Oral Capsule Gabapentin 100 MG Gabapentin 100 MG 01/21/2020 12:00:00 AM EDT 1.0 {capsule} active G abapentin 100 MG eCW1 ([facility]) gabapentin 100 MG Oral Capsule Gabapentin 100 MG Gabapentin 100 MG 01/21/2020 12:00:00 AM EDT 1.0 {capsule} active G abapentin 100 MG eCW1 ([facility]) gabapentin 100 MG Oral Capsule Gabapentin 100 MG Gabapentin 100 MG 01/21/2020 12:00:00 AM EDT 1.0 {capsule} active G abapentin 100 MG eCW1 ([facility]) gabapentin 100 MG Oral Capsule Gabapentin 100 MG Gabapentin 100 MG 01/21/2020 12:00:00 AM EDT 1.0 {capsule} active G abapentin 100 MG eCW1 ([facility]) gabapentin 100 MG Oral Capsule Gabapentin 100 MG Gabapentin 100 MG 01/21/2020 12:00:00 AM EDT 1.0 {capsule} active G abapentin 100 MG eCW1 ([facility]) gabapentin 100 MG Oral Capsule Gabapentin 100 MG Gabapentin 100 MG 01/21/2020 12:00:00 AM EDT 1.0 {capsule} active G abapentin 100 MG eCW1 ([facility]) gabapentin 100 MG Oral Capsule Gabapentin 100 MG Gabapentin 100 MG 01/21/2020 12:00:00 AM EDT 1.0 {capsule} active G abapentin 100 MG eCW1 ([facility]) 100 mg 01/21/2020 12:00:00 AM EDT capsule 60 TAKE ONE CAPSULE BY MOUTH TWICE A DAY TAKE ONE CAPSULE BY MOUTH TWICE A DAY SOLD: 03/04/2020 [facility] 100 mg 01/21/2020 12:00:00 AM EDT capsule 60 TAKE ONE CAPSULE BY MOUTH TWICE A DAY TAKE ONE CAPSULE BY MOUTH TWICE A DAY SOLD: 04/03/2020 [facility] 100 mg 01/21/2020 12:00:00 AM EDT capsule 60 TAKE ONE CAPSULE BY MOUTH TWICE A DAY TAKE ONE CAPSULE BY MOUTH TWICE A DAY SOLD: 05/04/2020 [facility] gabapentin 100 MG Oral Capsule Gabapentin 100 MG Gabapentin 100 MG 01/21/2020 12:00:00 AM EDT 1.0 {capsule} active G abapentin 100 MG eCW1 ([facility]) 100 mg 01/21/2020 12:00:00 AM EDT capsule 60 TAKE ONE CAPSULE BY MOUTH TWICE A DAY TAKE ONE CAPSULE BY MOUTH TWICE A DAY SOLD: 01/22/2020 [facility] gabapentin 100 MG Oral Capsule Gabapentin 100 MG Gabapentin 100 MG 01/21/2020 12:00:00 AM EDT active 1 capsul e eCW1 ([facility]) gabapentin 100 MG Oral Capsule Gabapentin 100 MG Gabapentin 100 MG 01/21/2020 12:00:00 AM EDT 1.0 {capsule} active G abapentin 100 MG eCW1 ([facility]) gabapentin 100 MG Oral Capsule Gabapentin 100 MG Gabapentin 100 MG 01/21/2020 12:00:00 AM EDT 1.0 {capsule} active G abapentin 100 MG eCW1 ([facility]) gabapentin 100 MG Oral Capsule Gabapentin 100 MG Gabapentin 100 MG 01/21/2020 12:00:00 AM EDT 1.0 {capsule} active G abapentin 100 MG eCW1 ([facility]) gabapentin 100 MG Oral Capsule Gabapentin 100 MG Gabapentin 100 MG 01/21/2020 12:00:00 AM EDT 1.0 {capsule} active G abapentin 100 MG eCW1 ([facility]) gabapentin 100 MG Oral Capsule Gabapentin 100 MG Gabapentin 100 MG 01/21/2020 12:00:00 AM EDT 1.0 {capsule} active G abapentin 100 MG eCW1 ([facility]) Bumetanide 1 MG Oral Tablet BUMETANIDE 01/17/2020 12:00:00 AM EDT tabl et 60 TAKE ONE TABLET BY MOUTH EVERY DAY TAKE ONE TABLET BY MOUTH EVERY DAY SOLD: 01/19/2020 [facility] Bumetanide 1 MG Oral Tablet BUMETANIDE 01/17/2020 12:00:00 AM EDT tabl et 60 TAKE ONE TABLET BY MOUTH EVERY DAY TAKE ONE TABLET BY MOUTH EVERY DAY SOLD: 04/24/2020 [facility] 50 mcg/dose 01/12/2020 12:00:00 AM EDT blister with device 6 0 INHALE ONE PUFF BY MOUTH TWICE A DAY INHALE ONE PUFF BY MOUTH TWICE A DAY SOLD: 07/19/2020 [facility] 50 mcg/dose 01/12/2020 12:00:00 AM EDT blister with device 6 0 INHALE ONE PUFF BY MOUTH TWICE A DAY INHALE ONE PUFF BY MOUTH TWICE A DAY SOLD: 2020 [facility] 50 mcg/dose 01/12/2020 12:00:00 AM EDT blister with device 6 0 INHALE ONE PUFF BY MOUTH TWICE A DAY INHALE ONE PUFF BY MOUTH TWICE A DAY SOLD: 01/13/2020 [facility] 100 unit/mL (3 mL) 12/09/2019 12:00:00 AM EDT insulin pen 15 USE DIRECTED PER SLIDING SCALE MAXIMUM DAILY DOSE = 50 UNITS USE DIRECTED PER SLIDING SCALE MAXIMUM DAILY DOSE = 50 UNITS SOLD: 12/14/2019 [facility] 31 gauge x 5/16" 12/09/2019 12:00:00 AM EDT needle 400 DIRECTED FOUR TIMES A DAY WITH INSULIN PEN DIRECTED FOUR TIMES A DAY WITH INSULIN PEN SOLD: 12/14/2019 [facility] Hydralazine Hydrochloride 10 MG Oral Tablet HYDRALAZINE HCL 12/03/2019 12:00:00 AM EST tablet 240 TAKE TWO TABLETS BY MOUTH EV DOYLE 6 HOURS WITH FOOD TAKE TWO TABLETS BY MOUTH EVERY 6 HOURS WITH FOOD SOLD: 12/05/2019 [facility] Hydralazine Hydrochloride 10 MG Oral Tablet HYDRALAZINE HCL 12/03/2019 12:00:00 AM EST tablet 240 TAKE TWO TABLETS BY MOUTH EV DOYLE 6 HOURS WITH FOOD TAKE TWO TABLETS BY MOUTH EVERY 6 HOURS WITH FOOD SOLD: 01/07/2020 [facility] 2.5 mg 12/03/2019 12:00:00 AM EST tablet 90 TAKE THREE TABLETS BY MOUTH EVERY DAY TAKE THREE TABLETS BY MOUTH EVERY DAY SOLD: 03/04/2020 [facility] 2.5 mg 12/03/2019 12:00:00 AM EST tablet 90 TAKE THREE TABLETS BY MOUTH EVERY DAY TAKE THREE TABLETS BY MOUTH EVERY DAY SOLD: 01/07/2020 [facility] Hydralazine Hydrochloride 10 MG Oral Tablet HYDRALAZINE HCL 12/03/2019 12:00:00 AM EST tablet 240 TAKE TWO TABLETS BY MOUTH EV DOYLE 6 HOURS WITH FOOD TAKE TWO TABLETS BY MOUTH EVERY 6 HOURS WITH FOOD SOLD: 02/06/2020 [facility] 2.5 mg 12/03/2019 12:00:00 AM EST tablet 90 TAKE THREE TABLETS BY MOUTH EVERY DAY TAKE THREE TABLETS BY MOUTH EVERY DAY SOLD: 12/05/2019 [facility] 2.5 mg 12/03/2019 12:00:00 AM EST tablet 90 TAKE THREE TABLETS BY MOUTH EVERY DAY TAKE THREE TABLETS BY MOUTH EVERY DAY SOLD: 02/06/2020 [facility] BLOOD-GLUCOSE METER 11/21/2019 12:00:00 AM EST misc 1 DIRECTED DIRECTED SOLD: 11/26/2019 [facility] Glucometer UNK 11/21/2019 12:00:00 AM EST active as directed eCW1 ([facility]) Glucometer UNK 11/21/2019 12:00:00 AM EST active as directed eCW1 ([facility]) Hydralazine Hydrochloride 10 MG Oral Tablet HydrALAZIN E HCl 10 MG HydrALAZINE HCl 10 MG 11/20/2019 12:00:00 AM EST 2.0 {tablets} s uspended HydrALAZINE HCl 10 MG eCW1 ([facility]) 200 ACTUAT Albuterol 0.09 MG/ACTUAT Mete red Dose Inhaler [Ventolin] Ventolin HFA 108 (90 Base) MCG/ACT Ventolin HFA 108 (90 Base) MCG/ACT 11/20/2019 12:00:00 AM EST 2.0 {puffs} active Ventolin HFA 108 (90 Base) MCG/ACT eCW1 ([facility]) 200 ACTUAT Albuterol 0.09 MG/ACTUAT Mete red Dose Inhaler [Ventolin] Ventolin HFA 108 (90 Base) MCG/ACT Ventolin HFA 108 (90 Base) MCG/ACT 11/20/2019 12:00:00 AM EST 2.0 {puffs} active Ventolin HFA 108 (90 Base) MCG/ACT eCW1 ([facility]) Hydralazine Hydrochloride 10 MG Oral Tablet HydrALAZIN E HCl 10 MG HydrALAZINE HCl 10 MG 11/20/2019 12:00:00 AM EST 2.0 {tablets} s uspended HydrALAZINE HCl 10 MG eCW1 ([facility]) Hydralazine Hydrochloride 10 MG Oral Tablet HydrALAZIN E HCl 10 MG HydrALAZINE HCl 10 MG 11/20/2019 12:00:00 AM EST 2.0 {tablets} s uspended HydrALAZINE HCl 10 MG eCW1 ([facility]) Acetaminophen 325 MG / Oxycodone Hydroch loride 5 MG Oral Tablet Oxycodone- Acetaminophen 5-325 MG Oxycodone-Acetaminophen 5-325 MG 11/20/2019 12:00:00 A M EST active 1 tab eCW1 ([facility]) Albuterol 0.833 MG/ML / Ipratropium Brom rafael 0.167 MG/ML Inhalant Solution Ipratropium-Albuterol 0.5-2.5 (3) MG/3ML Ipratropium-Albuterol 0.5-2.5 (3) MG/3ML 11/20/2019 12:00:00 AM EST 3.0 {ml} active Ipratropium- Albuterol 0.5-2.5 (3) MG/3ML eCW1 ([facility]) Hydralazine Hydrochloride 10 MG Oral Tablet HydrALAZIN E HCl 10 MG HydrALAZINE HCl 10 MG 11/20/2019 12:00:00 AM EST 2.0 {tablets} s uspended HydrALAZINE HCl 10 MG eCW1 ([facility]) 2.5 mg 11/20/2019 12:00:00 AM EST tablet 42 TAKE THREE TABLETS BY MOUTH EVERY DAY TAKE THREE TABLETS BY MOUTH EVERY DAY SOLD: 11/20/2019 [facility] 200 ACTUAT Albuterol 0.09 MG/ACTUAT Mete red Dose Inhaler [Ventolin] Ventolin HFA 108 (90 Base) MCG/ACT Ventolin HFA 108 (90 Base) MCG/ACT 11/20/2019 12:00:00 AM EST 2.0 {puffs} active Ventolin HFA 108 (90 Base) MCG/ACT eCW1 ([facility]) Ergocalciferol 82857 UNT Oral Capsule Ergocalciferol 1 .25 MG (84827 UT) Ergocalciferol 1.25 MG (74741 UT) 11/20/2019 12:00:00 AM EST active 1 capsule eCW1 ([facility]) Albuterol 0.833 MG/ML / Ipratropium Brom rafael 0.167 MG/ML Inhalant Solution Ipratropium-Albuterol 0.5-2.5 (3) MG/3ML Ipratropium-Albuterol 0.5-2.5 (3) MG/3ML 11/20/2019 12:00:00 AM EST 3.0 {ml} active Ipratropium- Albuterol 0.5-2.5 (3) MG/3ML eCW1 ([facility]) 200 ACTUAT Albuterol 0.09 MG/ACTUAT Mete red Dose Inhaler [Ventolin] Ventolin HFA 108 (90 Base) MCG/ACT Ventolin HFA 108 (90 Base) MCG/ACT 11/20/2019 12:00:00 AM EST active 2 puffs eCW1 ([facility]) 200 ACTUAT Albuterol 0.09 MG/ACTUAT Mete red Dose Inhaler [Ventolin] Ventolin HFA 108 (90 Base) MCG/ACT Ventolin HFA 108 (90 Base) MCG/ACT 11/20/2019 12:00:00 AM EST 2.0 {puffs} active Ventolin HFA 108 (90 Base) MCG/ACT eCW1 ([facility]) 200 ACTUAT Albuterol 0.09 MG/ACTUAT Mete red Dose Inhaler [Ventolin] Ventolin HFA 108 (90 Base) MCG/ACT Ventolin HFA 108 (90 Base) MCG/ACT 11/20/2019 12:00:00 AM EST 2.0 {puffs} active Ventolin HFA 108 (90 Base) MCG/ACT eCW1 ([facility]) Albuterol 0.833 MG/ML / Ipratropium Brom rafael 0.167 MG/ML Inhalant Solution Ipratropium-Albuterol 0.5-2.5 (3) MG/3ML Ipratropium-Albuterol 0.5-2.5 (3) MG/3ML 11/20/2019 12:00:00 AM EST 3.0 {ml} active Ipratropium- Albuterol 0.5-2.5 (3) MG/3ML eCW1 ([facility]) 200 ACTUAT Albuterol 0.09 MG/ACTUAT Mete red Dose Inhaler [Ventolin] Ventolin HFA 108 (90 Base) MCG/ACT Ventolin HFA 108 (90 Base) MCG/ACT 11/20/2019 12:00:00 AM EST 2.0 {puffs} active Ventolin HFA 108 (90 Base) MCG/ACT eCW1 ([facility]) Albuterol 0.833 MG/ML / Ipratropium Brom rafael 0.167 MG/ML Inhalant Solution Ipratropium-Albuterol 0.5-2.5 (3) MG/3ML Ipratropium-Albuterol 0.5-2.5 (3) MG/3ML 11/20/2019 12:00:00 AM EST active 3 ml eCW1 ([facility]) Hydralazine Hydrochloride 10 MG Oral Tablet HydrALAZIN E HCl 10 MG HydrALAZINE HCl 10 MG 11/20/2019 12:00:00 AM EST active 20 mg eCW1 ([facility]) Albuterol 0.833 MG/ML / Ipratropium Brom rafael 0.167 MG/ML Inhalant Solution Ipratropium-Albuterol 0.5-2.5 (3) MG/3ML Ipratropium-Albuterol 0.5-2.5 (3) MG/3ML 11/20/2019 12:00:00 AM EST 3.0 {ml} active Ipratropium- Albuterol 0.5-2.5 (3) MG/3ML eCW1 ([facility]) Hydralazine Hydrochloride 10 MG Oral Tablet HydrALAZIN E HCl 10 MG HydrALAZINE HCl 10 MG 11/20/2019 12:00:00 AM EST active 2 tablets eCW1 ([facility]) Albuterol 0.833 MG/ML / Ipratropium Brom rafael 0.167 MG/ML Inhalant Solution Ipratropium-Albuterol 0.5-2.5 (3) MG/3ML Ipratropium-Albuterol 0.5-2.5 (3) MG/3ML 11/20/2019 12:00:00 AM EST active 3 ml eCW1 ([facility]) Albuterol 0.833 MG/ML / Ipratropium Brom rafael 0.167 MG/ML Inhalant Solution Ipratropium-Albuterol 0.5-2.5 (3) MG/3ML Ipratropium-Albuterol 0.5-2.5 (3) MG/3ML 11/20/2019 12:00:00 AM EST 3.0 {ml} active Ipratropium- Albuterol 0.5-2.5 (3) MG/3ML eCW1 ([facility]) Amlodipine 2.5 MG Oral Tablet AmLODIPine Besylate 2.5 MG AmLODIPine Besylate 2.5 MG 11/20/2019 12:00:00 AM EST active 3 tabs eCW1 ([facility]) Hydralazine Hydrochloride 10 MG Oral Tablet HydrALAZIN E HCl 10 MG HydrALAZINE HCl 10 MG 11/20/2019 12:00:00 AM EST 2.0 {tablets} s uspended HydrALAZINE HCl 10 MG eCW1 ([facility]) Hydralazine Hydrochloride 10 MG Oral Tablet HydrALAZIN E HCl 10 MG HydrALAZINE HCl 10 MG 11/20/2019 12:00:00 AM EST active 2 tablets eCW1 ([facility]) 200 ACTUAT Albuterol 0.09 MG/ACTUAT Mete red Dose Inhaler [Ventolin] Ventolin HFA 108 (90 Base) MCG/ACT Ventolin HFA 108 (90 Base) MCG/ACT 11/20/2019 12:00:00 AM EST active 2 puffs eCW1 ([facility]) 200 ACTUAT Albuterol 0.09 MG/ACTUAT Mete red Dose Inhaler [Ventolin] Ventolin HFA 108 (90 Base) MCG/ACT Ventolin HFA 108 (90 Base) MCG/ACT 11/20/2019 12:00:00 AM EST 2.0 {puffs} active Ventolin HFA 108 (90 Base) MCG/ACT eCW1 ([facility]) Ergocalciferol 45818 UNT Oral Capsule Ergocalciferol 1 .25 MG (26820 UT) Ergocalciferol 1.25 MG (14505 UT) 11/20/2019 12:00:00 AM EST active 1 capsule eCW1 ([facility]) Hydralazine Hydrochloride 10 MG Oral Tablet HydrALAZIN E HCl 10 MG HydrALAZINE HCl 10 MG 11/20/2019 12:00:00 AM EST 2.0 {tablets} s uspended HydrALAZINE HCl 10 MG eCW1 ([facility]) Hydralazine Hydrochloride 10 MG Oral Tablet HydrALAZIN E HCl 10 MG HydrALAZINE HCl 10 MG 11/20/2019 12:00:00 AM EST 2.0 {tablets} s uspended HydrALAZINE HCl 10 MG eCW1 ([facility]) Albuterol 0.833 MG/ML / Ipratropium Brom rafael 0.167 MG/ML Inhalant Solution Ipratropium-Albuterol 0.5-2.5 (3) MG/3ML Ipratropium-Albuterol 0.5-2.5 (3) MG/3ML 11/20/2019 12:00:00 AM EST 3.0 {ml} active Ipratropium- Albuterol 0.5-2.5 (3) MG/3ML eCW1 ([facility]) Hydralazine Hydrochloride 10 MG Oral Tablet HydrALAZIN E HCl 10 MG HydrALAZINE HCl 10 MG 11/20/2019 12:00:00 AM EST 2.0 {tablets} s uspended HydrALAZINE HCl 10 MG eCW1 ([facility]) 200 ACTUAT Albuterol 0.09 MG/ACTUAT Mete red Dose Inhaler [Ventolin] Ventolin HFA 108 (90 Base) MCG/ACT Ventolin HFA 108 (90 Base) MCG/ACT 11/20/2019 12:00:00 AM EST 2.0 {puffs} active Ventolin HFA 108 (90 Base) MCG/ACT eCW1 ([facility]) Albuterol 0.833 MG/ML / Ipratropium Brom rafael 0.167 MG/ML Inhalant Solution Ipratropium-Albuterol 0.5-2.5 (3) MG/3ML Ipratropium-Albuterol 0.5-2.5 (3) MG/3ML 11/20/2019 12:00:00 AM EST 3.0 {ml} active Ipratropium- Albuterol 0.5-2.5 (3) MG/3ML eCW1 ([facility]) 200 ACTUAT Albuterol 0.09 MG/ACTUAT [place] red Dose Inhaler [Ventolin] Ventolin HFA 108 (90 Base) MCG/ACT Ventolin HFA 108 (90 Base) MCG/ACT 11/20/2019 12:00:00 AM EST 2.0 {puffs} active Ventolin HFA 108 (90 Base) MCG/ACT eCW1 ([facility]) Albuterol 0.833 MG/ML / Ipratropium Brom rafael 0.167 MG/ML Inhalant Solution Ipratropium-Albuterol 0.5-2.5 (3) MG/3ML Ipratropium-Albuterol 0.5-2.5 (3) MG/3ML 11/20/2019 12:00:00 AM EST 3.0 {ml} active Ipratropium- Albuterol 0.5-2.5 (3) MG/3ML eCW1 ([facility]) Hydralazine Hydrochloride 10 MG Oral Tablet HydrALAZIN E HCl 10 MG HydrALAZINE HCl 10 MG 11/20/2019 12:00:00 AM EST 2.0 {tablets} s uspended HydrALAZINE HCl 10 MG eCW1 ([facility]) 200 ACTUAT Albuterol 0.09 MG/ACTUAT [place] red Dose Inhaler [Ventolin] Ventolin HFA 108 (90 Base) MCG/ACT Ventolin HFA 108 (90 Base) MCG/ACT 11/20/2019 12:00:00 AM EST active 2 puffs eCW1 ([facility]) Albuterol 0.833 MG/ML / Ipratropium Brom rafael 0.167 MG/ML Inhalant Solution Ipratropium-Albuterol 0.5-2.5 (3) MG/3ML Ipratropium-Albuterol 0.5-2.5 (3) MG/3ML 11/20/2019 12:00:00 AM EST 3.0 {ml} active Ipratropium- Albuterol 0.5-2.5 (3) MG/3ML eCW1 ([facility]) Acetaminophen 325 MG / Oxycodone Hydroch loride 5 MG Oral Tablet Oxycodone- Acetaminophen 5-325 MG Oxycodone-Acetaminophen 5-325 MG 11/20/2019 12:00:00 A M EST active 1 tab eCW1 ([facility]) Albuterol 0.833 MG/ML / Ipratropium Brom rafael 0.167 MG/ML Inhalant Solution Ipratropium-Albuterol 0.5-2.5 (3) MG/3ML Ipratropium-Albuterol 0.5-2.5 (3) MG/3ML 11/20/2019 12:00:00 AM EST 3.0 {ml} active Ipratropium- Albuterol 0.5-2.5 (3) MG/3ML eCW1 ([facility]) Hydralazine Hydrochloride 10 MG Oral Tablet HydrALAZIN E HCl 10 MG HydrALAZINE HCl 10 MG 11/20/2019 12:00:00 AM EST 2.0 {tablets} s uspended HydrALAZINE HCl 10 MG eCW1 ([facility]) Amlodipine 2.5 MG Oral Tablet AmLODIPine Besylate 2.5 MG AmLODIPine Besylate 2.5 MG 11/20/2019 12:00:00 AM EST active 3 tabs eCW1 ([facility]) 200 ACTUAT Albuterol 0.09 MG/ACTUAT Mete red Dose Inhaler [Ventolin] Ventolin HFA 108 (90 Base) MCG/ACT Ventolin HFA 108 (90 Base) MCG/ACT 11/20/2019 12:00:00 AM EST 2.0 {puffs} active Ventolin HFA 108 (90 Base) MCG/ACT eCW1 ([facility]) 200 ACTUAT Albuterol 0.09 MG/ACTUAT Mete red Dose Inhaler [Ventolin] Ventolin HFA 108 (90 Base) MCG/ACT Ventolin HFA 108 (90 Base) MCG/ACT 11/20/2019 12:00:00 AM EST 2.0 {puffs} active Ventolin HFA 108 (90 Base) MCG/ACT eCW1 ([facility]) Albuterol 0.833 MG/ML / Ipratropium Brom rafael 0.167 MG/ML Inhalant Solution Ipratropium-Albuterol 0.5-2.5 (3) MG/3ML Ipratropium-Albuterol 0.5-2.5 (3) MG/3ML 11/20/2019 12:00:00 AM EST 3.0 {ml} active Ipratropium- Albuterol 0.5-2.5 (3) MG/3ML eCW1 ([facility]) Albuterol 0.833 MG/ML / Ipratropium Brom rafael 0.167 MG/ML Inhalant Solution Ipratropium-Albuterol 0.5-2.5 (3) MG/3ML Ipratropium-Albuterol 0.5-2.5 (3) MG/3ML 11/20/2019 12:00:00 AM EST 3.0 {ml} active Ipratropium- Albuterol 0.5-2.5 (3) MG/3ML eCW1 ([facility]) 200 ACTUAT Albuterol 0.09 MG/ACTUAT Mete red Dose Inhaler [Ventolin] Ventolin HFA 108 (90 Base) MCG/ACT Ventolin HFA 108 (90 Base) MCG/ACT 11/20/2019 12:00:00 AM EST 2.0 {puffs} active Ventolin HFA 108 (90 Base) MCG/ACT eCW1 ([facility]) Amlodipine 2.5 MG Oral Tablet AmLODIPine Besylate 2.5 MG AmLODIPine Besylate 2.5 MG 11/20/2019 12:00:00 AM EST active 3 tabs eCW1 ([facility]) Albuterol 0.833 MG/ML / Ipratropium Brom rafael 0.167 MG/ML Inhalant Solution Ipratropium-Albuterol 0.5-2.5 (3) MG/3ML Ipratropium-Albuterol 0.5-2.5 (3) MG/3ML 11/20/2019 12:00:00 AM EST 3.0 {ml} active Ipratropium- Albuterol 0.5-2.5 (3) MG/3ML eCW1 ([facility]) Hydralazine Hydrochloride 10 MG Oral Tablet HydrALAZIN E HCl 10 MG HydrALAZINE HCl 10 MG 11/20/2019 12:00:00 AM EST 2.0 {tablets} a ctive HydrALAZINE HCl 10 MG eCW1 ([facility]) Albuterol 0.833 MG/ML / Ipratropium Brom rafael 0.167 MG/ML Inhalant Solution Ipratropium-Albuterol 0.5-2.5 (3) MG/3ML Ipratropium-Albuterol 0.5-2.5 (3) MG/3ML 11/20/2019 12:00:00 AM EST 3.0 {ml} active Ipratropium- Albuterol 0.5-2.5 (3) MG/3ML eCW1 ([facility]) Ergocalciferol 84646 UNT Oral Capsule Ergocalciferol 1 .25 MG (63795 UT) Ergocalciferol 1.25 MG (71036 UT) 11/20/2019 12:00:00 AM EST suspended 1 capsule eCW1 ([facility]) Hydralazine Hydrochloride 10 MG Oral Tablet HYDRALAZINE HCL 11/20/2019 12:00:00 AM EST tablet 112 TAKE TWO TABLETS BY MOUTH EV DOYLE 6 HOURS TAKE TWO TABLETS BY MOUTH EVERY 6 HOURS SOLD: 11/20/2019 [facility] Hydralazine Hydrochloride 10 MG Oral Tablet HydrALAZIN E HCl 10 MG HydrALAZINE HCl 10 MG 11/20/2019 12:00:00 AM EST 2.0 {tablets} s uspended HydrALAZINE HCl 10 MG eCW1 ([facility]) Hydralazine Hydrochloride 10 MG Oral Tablet HydrALAZIN E HCl 10 MG HydrALAZINE HCl 10 MG 11/20/2019 12:00:00 AM EST 2.0 {tablets} s uspended HydrALAZINE HCl 10 MG eCW1 ([facility]) Albuterol 0.833 MG/ML / Ipratropium Brom rafael 0.167 MG/ML Inhalant Solution Ipratropium-Albuterol 0.5-2.5 (3) MG/3ML Ipratropium-Albuterol 0.5-2.5 (3) MG/3ML 11/20/2019 12:00:00 AM EST active 3 ml eCW1 ([facility]) 200 ACTUAT Albuterol 0.09 MG/ACTUAT Mete red Dose Inhaler [Ventolin] Ventolin HFA 108 (90 Base) MCG/ACT Ventolin HFA 108 (90 Base) MCG/ACT 11/20/2019 12:00:00 AM EST 2.0 {puffs} active Ventolin HFA 108 (90 Base) MCG/ACT eCW1 ([facility]) Hydralazine Hydrochloride 10 MG Oral Tablet HydrALAZIN E HCl 10 MG HydrALAZINE HCl 10 MG 11/20/2019 12:00:00 AM EST 2.0 {tablets} s uspended HydrALAZINE HCl 10 MG eCW1 ([facility]) 200 ACTUAT Albuterol 0.09 MG/ACTUAT Mete red Dose Inhaler [Ventolin] Ventolin HFA 108 (90 Base) MCG/ACT Ventolin HFA 108 (90 Base) MCG/ACT 11/20/2019 12:00:00 AM EST 2.0 {puffs} active Ventolin HFA 108 (90 Base) MCG/ACT eCW1 ([facility]) Compressor Nebulizer 11/05/2019 12:00:00 AM EST active MEDENT ([facility]) Nebulizer Kit/Tubing/Mouthpiece 11/05/2019 12:00:00 AM EST active MEDENT ([facility]) 100 unit/mL (3 mL) 11/04/2019 12:00:00 AM EST insulin pen 12 INJECT 40 UNITS UNDER THE SKIN ONCE DAILY INJECT 40 UNITS UNDER THE SKIN ONCE DAILY SOLD: 11/13/2019 [facility] 1,250 mcg (50,000 unit) 10/24/2019 12:00:00 AM EST capsule 6 TAKE ONE CAPSULE BY MOUTH WEEKLY TAKE ONE CAPSULE BY MOUTH WEEKLY SOLD: 10/25/2019 [facility] 80 mg 10/22/2019 12:00:00 AM EST tablet 30 TAKE ONE TABLET BY MOUTH EVERY DAY TAKE ONE TABLET BY MOUTH EVERY DAY SOLD: 10/24/2019 [facility] Bumetanide 1 MG Oral Tablet Bumetanide 10/22/2019 12:00:00 AM EST ORAL active MED[facility] [place] [place] Acetaminophen 325 MG / Oxycodone Hydrochloride 5 MG Or al Tablet Oxycodone-Acetaminophen 10/22/2019 12:00:00 AM EST ORAL active MEDENT ([facility]) Albuterol 0.833 MG/ML / Ipratropium [place] 0.167 MG/M L Inhalant Solution Ipratropium [place]/Albuterol Sulfate 10/22/2019 12:00:00 AM EST active MEDENT ([facility] [place] Acetaminophen 500 MG Oral Tablet Acetaminophen Extra Strengt h 10/22/2019 12:00:00 AM EST ORAL active M EDENT ([facility]) 5-325 mg 10/18/2019 12:00:00 AM EST tablet 15 TAKE ONE TABLET BY MOUTH THREE TIMES A DAY NEEDED FOR PAIN MAXIMUM DAILY DOSE = 3 TABLETS TAKE ONE TABLET BY MOUTH THREE TIMES A DAY NEEDED FOR PAIN MAXIMUM DAILY DOSE = 3 TABLETS SOLD: 10/18/2019 [facility] 10 mg 10/10/2019 12:00:00 AM EST tablet 30 TAKE ONE TABLET BY MOUTH EVERY DAY TAKE ONE TABLET BY MOUTH EVERY DAY SOLD: 12/14/2019 [facility] 10 mg 10/10/2019 12:00:00 AM EST tablet 30 TAKE ONE TABLET BY MOUTH EVERY DAY TAKE ONE TABLET BY MOUTH EVERY DAY SOLD: 11/13/2019 [facility] 50 mcg/dose 10/10/2019 12:00:00 AM EST blister with device 6 0 INHALE ONE PUFF BY MOUTH TWICE A DAY INHALE ONE PUFF BY MOUTH TWICE A DAY SOLD: 11/13/2019 [facility] 50 mcg/dose 10/10/2019 12:00:00 AM EST blister with device 6 0 INHALE ONE PUFF BY MOUTH TWICE A DAY INHALE ONE PUFF BY MOUTH TWICE A DAY SOLD: 10/11/2019 [facility] 50 mcg/dose 10/10/2019 12:00:00 AM EST blister with device 6 0 INHALE ONE PUFF BY MOUTH TWICE A DAY INHALE ONE PUFF BY MOUTH TWICE A DAY SOLD: 12/14/2019 [facility] 10 mg 10/10/2019 12:00:00 AM EST tablet 30 TAKE ONE TABLET BY MOUTH EVERY DAY TAKE ONE TABLET BY MOUTH EVERY DAY SOLD: 10/11/2019 [facility] 10 mg 10/10/2019 12:00:00 AM EST tablet 30 TAKE ONE TABLET BY MOUTH EVERY DAY TAKE ONE TABLET BY MOUTH EVERY DAY SOLD: 02/17/2020 [facility] 10 mg 10/10/2019 12:00:00 AM EST tablet 30 TAKE ONE TABLET BY MOUTH EVERY DAY TAKE ONE TABLET BY MOUTH EVERY DAY SOLD: 01/13/2020 [facility] 500 mg 10/08/2019 12:00:00 AM EST tablet 10 TAKE ONE TABLET BY MOUTH EVERY DAY FOR 10 DAYS TAKE ONE TABLET BY MOUTH EVERY DAY FOR 10 DAYS SOLD: 020 [facility] 0.5 mg-3 mg(2.5 mg base)/3 mL 10/08/2019 12:00:0 0 AM EST solution for nebulization 360 1 VIAL VIA NEBULIZER FOUR TIMES A DAY NEEDED 1 VIAL VIA NEBULIZER FOUR TIMES A DAY NEEDED SOLD: 01/19/2020 [facility] 0.5 mg-3 mg(2.5 mg base)/3 mL 10/08/2019 12:00:0 0 AM EST solution for nebulization 360 1 VIAL VIA NEBULIZER FOUR TIMES A DAY NEEDED 1 VIAL VIA NEBULIZER FOUR TIMES A DAY NEEDED SOLD: 10/08/2019 [facility] 0.5 mg-3 mg(2.5 mg base)/3 mL 10/08/2019 12:00:0 0 AM EST solution for nebulization 360 1 VIAL VIA NEBULIZER FOUR TIMES A DAY NEEDED 1 VIAL VIA NEBULIZER FOUR TIMES A DAY NEEDED SOLD: 11/20/2019 [facility] 0.5 mg-3 mg(2.5 mg base)/3 mL 10/08/2019 12:00:0 0 AM EST solution for nebulization 360 1 VIAL VIA NEBULIZER FOUR TIMES A DAY NEEDED 1 VIAL VIA NEBULIZER FOUR TIMES A DAY NEEDED SOLD: 12/19/2019 [facility] Levofloxacin 500 MG Oral Tablet [Levaquin] Levaquin 10/08 12:00:00 AM EST ORAL completed MEDENT ([facility] ) Prednisone 20 MG Oral Tablet Prednisone 10/08/2019 12:00:00 AM EST ORAL completed MEDENT ([facility], ) 20 mg 10/08/2019 12:00:00 AM EST tablet 5 TAKE ONE TABLET BY MOUTH EVERY DAY FOR 5 DAYS TAKE ONE TABLET BY MOUTH EVERY DAY FOR 5 DAYS SOLD: 10/08/2019 [facility] Albuterol 0.833 MG/ML / Ipratropium [place] 0.167 MG/M L Inhalant Solution Ipratropium [place]/Albuterol Sulfate 10/08/2019 12:00:00 AM EST active MEDENT ([facility] ) 31 gauge x 1/4" 10/01/2019 12:00:00 AM EST needle 30 INJECT ONCE DAILY DIRECTED INJECT ONCE DAILY DIRECTED SOLD: 10/02/2019 [facility] 31 gauge x 1/4" 10/01/2019 12:00:00 AM EST needle 30 INJECT ONCE DAILY DIRECTED INJECT ONCE DAILY DIRECTED SOLD: 03/04/2020 [facility] 31 gauge x 1/4" 10/01/2019 12:00:00 AM EST needle 30 INJECT ONCE DAILY DIRECTED INJECT ONCE DAILY DIRECTED SOLD: 12/05/2019 [facility] 31 gauge x 1/4" 10/01/2019 12:00:00 AM EST needle 30 INJECT ONCE DAILY DIRECTED INJECT ONCE DAILY DIRECTED SOLD: 10/31/2019 [facility] 31 gauge x 1/4" 10/01/2019 12:00:00 AM EST needle 30 INJECT ONCE DAILY DIRECTED INJECT ONCE DAILY DIRECTED SOLD: 02/06/2020 [facility] 31 gauge x 1/4" 10/01/2019 12:00:00 AM EST needle 30 INJECT ONCE DAILY DIRECTED INJECT ONCE DAILY DIRECTED SOLD: 01/07/2020 [facility] 1.5 mg/0.5 mL 09/09/2019 12:00:00 AM EST pen injector 4 INJECT 0.5 ML WEEKLY INJECT 0.5 ML WEEKLY SOLD: 02/06/2020 [facility] 1 mg 09/09/2019 12:00:00 AM EST tablet 60 TAKE ONE TABLET BY MOUTH EVERY DAY TAKE ONE TABLET BY MOUTH EVERY DAY SOLD: 11/13/2019 [facility] 1.5 mg/0.5 mL 09/09/2019 12:00:00 AM EST pen injector 4 INJECT 0.5 ML WEEKLY INJECT 0.5 ML WEEKLY SOLD: 07/13/2020 [facility] 1.5 mg/0.5 mL 09/09/2019 12:00:00 AM EST pen injector 4 INJECT 0.5 ML WEEKLY INJECT 0.5 ML WEEKLY SOLD: 12/05/2019 [facility] 1.5 mg/0.5 mL 09/09/2019 12:00:00 AM EST pen injector 4 INJECT 0.5 ML WEEKLY INJECT 0.5 ML WEEKLY SOLD: 04/24/2020 [facility] 1.5 mg/0.5 mL 09/09/2019 12:00:00 AM EST pen injector 4 INJECT 0.5 ML WEEKLY INJECT 0.5 ML WEEKLY SOLD: 09/08/2020 [facility] 62.5 mcg/actuation 07/31/2019 12:00:00 AM EDT blister with d evice 90 INHALE ONE PUFF BY MOUTH EVERY DAY INHALE ONE PUFF BY MOUTH EVERY DAY SOLD: 11/04/2019 [facility] 62.5 mcg/actuation 07/31/2019 12:00:00 AM EDT blister with d evice 90 INHALE ONE PUFF BY MOUTH EVERY DAY INHALE ONE PUFF BY MOUTH EVERY DAY SOLD: 02/06/2020 [facility] 62.5 mcg/actuation 07/31/2019 12:00:00 AM EDT blister with d evice 90 INHALE ONE PUFF BY MOUTH EVERY DAY INHALE ONE PUFF BY MOUTH EVERY DAY SOLD: 05/04/2020 [facility] 90 mcg/actuation 07/02/2019 12:00:00 AM EDT HFA aerosol inha ler 18 INHALE TWO PUFFS BY MOUTH EVERY 4 HOURS NEEDED FOR SHORTNESS OF BREATH INHALE TWO PUFFS BY MOUTH EVERY 4 HOURS NEEDED FOR SHORTNESS OF BREATH SOLD: 10/02/2019 [facility] 200 mcg/actuation 06/18/2019 12:00:00 AM EDT blister with de vice 90 INHALE ONE PUFF BY MOUTH EVERY DAY INHALE ONE PUFF BY MOUTH EVERY DAY SOLD: 12/05/2019 [facility] 200 mcg/actuation 06/18/2019 12:00:00 AM EDT blister with de vice 90 INHALE ONE PUFF BY MOUTH EVERY DAY INHALE ONE PUFF BY MOUTH EVERY DAY SOLD: 03/04/2020 [facility] Bumetanide 1 MG Oral Tablet Bumetanide 06/17/2019 12:00:00 AM EDT ORAL completed [facility]ENT ([facility]) Amlodipine 5 MG Oral Tablet Amlodipine Besylate 06/16/2019 12:00:00 A M EDT ORAL completed [facility]ENT ([facility] 25 mg 05/16/2019 12:00:00 AM EDT tablet 90 TAKE ONE TABLET BY MOUTH EVERY DAY TAKE ONE TABLET BY MOUTH EVERY DAY SOLD: 11/20/2019 [facility] BLOOD SUGAR DIAGNOSTIC 05/12/2019 12:00:00 AM EDT strip 300 DIRECTED UP TO THREE TIMES A DAY DIRECTED UP TO THREE TIMES A DAY SOLD: 12/10/2019 [facility] 10 mg 04/08/2019 12:00:00 AM EDT tablet 90 TAKE ONE TABLET BY MOUTH EVERY DAY TAKE ONE TABLET BY MOUTH EVERY DAY SOLD: 10/08/2019 [facility] 100 unit/mL (3 mL) 04/04/2019 12:00:00 AM EDT insulin pen 15 INJECT 40 UNITS SUBCUTANEOUSLY AT BEDTIME INJECT 40 UNITS SUBCUTANEOUSLY AT BEDTIME SOLD: 10/11/2019 [facility] 100 unit/mL (3 mL) 04/04/2019 12:00:00 AM EDT insulin pen 15 INJECT 40 UNITS SUBCUTANEOUSLY AT BEDTIME INJECT 40 UNITS SUBCUTANEOUSLY AT BEDTIME SOLD: 10/24/2019 [facility] 100 unit/mL (3 mL) 03/19/2019 12:00:00 AM EDT insulin pen 3 DIRECTED PER SLIDING SCALE MAXIMUM DAILY DOSE = 50 UNITS DIRECTED PER SLIDING SCALE MAXIMUM DAILY DOSE = 50 UNITS SOLD: 10/11/2019 [facility] Insurance Providers Payer name Policy type / Coverage type Policy ID Covered constitution party ID Covered constitution party's relationship to patel Policy Patel Plan Information AETNA MEDICARE [id number] SP [id number] SELF PAY ONLY SP SELF PAY ONLY - SP1 SP AETNA MEDICARE O [id number] S MEBTW 60M AETNA MEDICARE [id number] SP MEBTW 60M AETNA MEDICARE [id number] SP MEBTW 60M AETNA [id number] Britta [id number] MEDICARE C [id number] S [id number] MEDICARE [id number] SP [id number] [id number] AETNA MEDICARE COMPLETE G [id number] Self [id number] MEDICARE JADA [id number] S [id number] T45 AETNA HEA [id number] S [id number] [facility] MEDICARE COMPLETE G [id number] Self [id number] MEDICARE JADA [id number] A Aetna Medicare F [id number] SELF MEBTW 60M AETNA MEDICARE [id number] SP [id number] WELLCARE [id number] SP [id number] WELLCARE O [id number] S [id number] MEDICARE COMPLETE [id number] SP [id number] WELLCARE [id number] SP [id number] Wellcare [facility] Plans F [id number] SELF [id number] WELLCARE O [id number] O [id number] WELLCARE HEALTH PLANS [id number] S [id number] MEDICARE [id number] A ANSI-Health Maintenance Organization ( O) [id number] ANSI-Medicare Part B [id number] ANSI-Medicare Part B [id number] ANSI-Health Maintenance Organization (HM O) [id number] ANSI-Health Maintenance Organization (HM O) [id number] ANSI-Medicare Part B [id number] ANSI-Medicare Part B [id number] ANSI-Health Maintenance Organization ( O) [id number] ANSI-Health Maintenance Organization ( O) [id number] ANSI-Medicare Part B [id number] ANSI-Medicare Part B [id number] ANSI-Health Maintenance Organization ( O) [id number] ANSI-Medicare Part B [id number] ANSI-Health Maintenance Organization ( O) [id number] ANSI-Medicare Part B [id number] ANSI-Health Maintenance Organization ( O) [id number] ANSI-Health Maintenance Organization ( O) [id number] ANSI-Medicare Part B [id number] WELLCARE [facility] [id number] S [id number] ANSI-Medicare Part B [id number] ANSI-Health Maintenance Organization (HM O) [id number] ANSI-Health Maintenance Organization ( O) [id number] ANSI-Medicare Part B [id number] [employer] OPTIONS [id number] SP [id number] ANS-Health Maintenance Organization ( O) [id number] ANSI-Medicare Part B [id number] ANSI-Health Maintenance Organization ( O) [id number] ANSI-Medicare Part B [id number] Wellcare MCR - To Ppo Commercial [id number] Self [id number] [facility] [employer] Commercial [id number] Self [id number] Wellcare MCR - To Ppo Commercial [id number] Self [id number] [facility] [id number] Self [id number] ANSI-Medicare Part B [id number] ANSI-Health Maintenance Organization (HM O) [id number] [facility] [place] [id number] 18 [id number] [facility] ([facility] Mediclinton corners Part B [id number] Self [id number] Wellcare Commercial [id number] Self [id number] ANSI-Medicare Part B [id number] ANSI-Health Maintenance Organization (HM O) [id number] ANSI-Medicare Part B [id number] ANSI-Health Maintenance Organization (HM O) [id number] [employer] Health Plans F [id number] SELF [id number] [employer] Health Plans(To) Commercial [id number] Self [id number] ANSI-Health Maintenance Organization (HM O) [id number] ANSI-Medicare Part B [id number] ANSI-Health Maintenance Organization ( O) [id number] ANSI-Medicare Part B [id number] ANSI-Health Maintenance Organization ( O) [id number] ANSI-Medicare Part B [id number] [facility] F [id number] SELF [id number] ANSI-Medicare Part B [id number] MEDICARE COMPLETE [id number] SP [id number] ANSI-Medicare Part B [id number] [facility] [id number] [facility] Part B [id number] ANSI-Medicare Part B [id number] ANSI-Medicare Part B [id number]-s77222h2y5lp m31g3a74-22a1-5q3j-mp0k-c90717h4w1ap ANSI-Medicare Part B 7899sul1-03pf-84f5-b4lt-l05mk50toc17 7696zph4-08zt-28r4-g5vg-w33lz13fce11 ANSI-Medicare Part B [id number]-2961-37l5-x0b2-149712qeun61 t6k557yt-4557-33f7-r6x3-398911unse95 ANSI-Medicare Part B 1560m30y-691s-9358-fb9y-5704776ygwep 3236v27c-810x-3001-yk5u-9214721lbann ANSI-Medicare Part B 72z69w37-1ph8-1e17-h88m-6474e105wy9w 38j84p00-2yd2-5g44-w60y-4567x668kj5d ANSI-Medicare Part B 6d93sdc9-487u-2p17-q346-886m12n186zo 9i64cpl6-057w-6e40-t345-367k00l885cd ANSI-Medicare Part B a0a95em2-o9u1-2hmk-100p-wuq86t8s1vk1 r0x20pn5-a7e8-3yjh-058n-gzt79z0h4hd7 ANSI-Medicare Part B 9c5j8p79-2bv2-59bg-cx02-24m867yow771 5a6j3v85-1fb1-74xr-dx01-53q988hiv455 [facility] Medicare Solutions F [id number] SELF [id number] ANSI-Medicare Part B 5k55wo6x-4z74-6343-3pdk-2j3a86p96n39 7l53mk0x-3y88-2424-9rud-6y4b98t74i41 [facility]/Medicare Solu Commercial [id number] Self [id number] ANSI-Medicare Part B [id number]-84d53atf7v6k 6446u845-24k7-32l1-065i-99g94zbw1c7a ANSI-Medicare Part B 61j6cg2d-3jhg-0959-463c-40jb086m7op3 23w8iv3s-7ire-6349-351c-05hm500v8we7 ANSI-Medicare Part B [id number]-y9y1081u29y7 4er7r725-9593-8z86-419k-z5u7334y58i8 MEDICARE COMPLETE-[facility] O [id number] S [id number] ANSI-Medicare Part B [id number]-ei92-76ib-5ld9-z7c0ym522g6d tbec7055-bz08-66td-4xn6-x0r0ii046j6s ANSI-Medicare Part B [id number]-i10h-jc7057kh3314 k8v5v817-0iu8-57m5-e48m-kk0465tp2121 ANSI-Medicare Part B [id number]-11l0-4627-[id number] [id number]-41r1-5516-[id number] ANSI-Medicare Part B 38bd1dj9-o926-77hn-w7gk-4m8w7oa69bo1 89xl9cy2-l896-45iu-n4lb-1e2x7xt59ar3 ANSI-Medicare Part B [id number]-h897-41nb-i9nx-6c1d869e2631 9l431wg0-b107-88lt-b1lh-8p7a261f0923 ANSI-Medicare Part B [id number]-1ml1-172o-dtb75871u2z5 pk809324-z9ma-8mj8-907y-zru45990i6v8 ANSI-Medicare Part B 4831y1ik-u776-0swk-so17-3077sl926v3z 8171y7bc-e456-8hyi-zk92-8786wx141b1c [facility]-Medicare Part B [id number]-4s91-u764-233582v74i95 104g2832-6g8a-6m33-k409-650838d48p36 [facility] 293lti27-h2go-9s00-4iz7-on39832u7xkw 258onl67-h7hr-5a29-1yv8-nl06133e4oie [facility]-Medicare Part B [id number]-l2m5-s13jr2m6657l i8l85c73-szbk-1nm2-r1p3-z06tz3l0774j [facility]-Medicare [employer] Commercial [id number] Self [id number] [employer] Medicare Commercial [id number] Self [id number] MEDICARE COMPLETE [id number] SP [id number] [facility]-Medicare Solutions Commercial [id number] Self [id number] [place] [employer] [place] [id number] S [id number] MEDICARE COMPLETE [id number] SP [id number] [facility] ([facility]) Commercial [id number] Self [id number] [facility] Medicare Solutions F [id number] SELF [id number] MEDICARE COMPLETE [id number] SP [id number] MEDICARE COMPLETE [id number] SP [id number] [facility] MD[place] [id number] 18 [id number] [place] [employer] [place] [id number] S [id number] MEDICARE COMPLETE-[facility] O [id number] S [id number] HEA [id number] [employer] [facility]-Medicare Solutions Commercial [id number] Self [id number] [employer]-Medicare Solutions Commercial [id number] Self [id number] [employer] Commercial [id number] Self [id number] [employer] Commercial [id number] Self [id number] [facility]-Medicare Solutions Commercial [id number] Self [id number] [facility]-Medicare Solutions Commercial [id number] Self [id number] [facility] Medicare Solutions F [id number] SELF [id number] MEDICARE COMPLETE [id number] SP [id number] [facility] ([facility]) Commercial Self MEDICARE COMPLETE [id number] SP [id number] [facility] Medicare F [id number] SELF [id number] [facility] Medicare F [id number] SELF [id number] Medicare C [id number] SELF [id number] A [facility] [id number] 18 [id number] [employer] MEDICARE-O/P [id number] 18 [id number] [employer] MEDICARE-CLINIC [id number] 18 [id number] 4 Problems, Conditions, and Diagnoses Code Display Name Description Problem Type Effective Dates Data Source(s) K21.9 [id number] Gastroesophageal ref lux disease, unspecified whether esophagitis present Problem 10/13/2020 12:00:00 AM EST eCW1 ([facility]) [id number] Paresthesia Paresthesia Problem 09/09/2020 12:00:00 AM EST MEDENT ([facility], ) [id number] Tremor Tremor Problem 09/09/2020 12:00:00 AM ES T MEDENT ([facility], ) G89.29 [id number] Other chronic pain Problem 07/22/2020 12:00: 00 AM EDT eCW1 ([facility]) F41.9 [id number] Anxiety Problem 07/22/2020 12:00:00 AM ED T eCW1 ([facility]) E04.1 [id number] Thyroid nodule Problem 07/22/2020 12:00:00 A M EDT eCW1 ([facility]) E55.9 [id number] Vitamin D deficiency Problem 01/21/2020 12:0 0:00 AM EDT eCW1 ([facility]) E55.9 [id number] Vitamin D deficiency Problem 01/21/2020 12:0 0:00 AM EDT eCW1 ([facility]) E78.2 [id number] Mixed hyperlipidemia Problem 12/02/2019 12:0 0:00 AM EST eCW1 ([facility]) E78.2 [id number] Mixed hyperlipidemia Problem 12/02/2019 12:0 0:00 AM EST eCW1 ([facility]) I10 Essential (primary) hypertension Essential (primary) h ypertension Diagnosis 08/13/2020 04:05:29 PM EST [facility] E78.2 Mixed hyperlipidemia Mixed hyperlipidemia Diagnosis 08/13/2020 04:05:29 PM EST [facility] 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 Diagnosis 07/05/2020 12:57:00 PM EDT [facility] Surgeries/Procedures Procedure Description Date Indications Data Source(s) TSTG ANS FUNCJ CARDIOVAGAL INNERVAJ PARASYMP 1 12:00:00 AM EST MEDENT ([facility], ) TSTG ANS FUNCJ CARDIOVAGAL INNERVAJ PARASYMP 1 12:00:00 AM EST MEDENT ([facility], ) TESTING AUTONOMIC NERVOUS SYSTEM FUNCTION 10/29/2020 1 2:00:00 AM EST MEDENT ([facility], ) TESTING AUTONOMIC NERVOUS SYSTEM FUNCTION 10/29/2020 1 2:00:00 AM EST MEDENT ([facility], ) MRI BRAIN BRAIN STEM W/O CONTRAST MATERIAL 10/19/2020 12:00:00 AM EST MEDENT ([facility], ) MRI BRAIN BRAIN STEM W/O CONTRAST MATERIAL 10/19/2020 12:00:00 AM EST MEDENT ([facility], ) MRI SPINAL CANAL CERVICAL W/O CONTRAST MATRL 1 12:00:00 AM EST MEDENT ([facility], ) MRI SPINAL CANAL CERVICAL W/O CONTRAST MATRL 1 12:00:00 AM EST MEDENT ([facility], ) Office Visit, Est Pt., Level 4 PC 01/21/2020 12:00:00 AM EDT eCW1 ([facility]) Office Visit, Est Pt., Level 2 FC 01/21/2020 12:00:00 AM EDT eCW1 ([facility]) Transitional Care NO CHARGE Visit 11/21/2019 12:00:00 AM EST eCW1 ([facility]) Spirometry 10/08/2019 12:00:00 AM EST M EDENT ([facility], ) Airway Inhalation Treatment 10/08/2019 12:00:00 AM EST MEDENT ([facility], ) Results ID Date Data Source LIPID PANEL (CARDIAC RISK) 11/04/2020 12:00:00 AM EST eCW1 ( [facility]) Name Value Range Interpretation Code Description Data Naa rce(s) Supporting Document(s) Cholesterol in HDL [Moles/volume] in Serum or Plasma 41 >40 HDL CHOLESTEROL eCW1 ([facility]) Triglyceride [Mass/volume] in Serum or Plasma by calculation 306 <150 TRIGLYCERIDES LEVEL eCW1 ([facility]) Cholesterol [Moles/volume] in Serum or Plasma 196 <200 CHOLESTEROL LEVEL eCW1 ([facility]) Cholesterol in LDL [Mass/volume] in Serum or Plasma by calculation 94 <100 LDL CHOLESTEROL eCW1 ([facility]) 4.780 <5 CHOLESTEROL RISK RATIO eCW1 ([facility]) 155 NON-HDL-C eCW1 ([facility]) ID Date Data Source [id number] 11/04/2020 12:00:00 AM EST eCW1 ([facility]) Name Value Range Interpretation Code Description Data Naa rce(s) Supporting Document(s) Hemoglobin A1c/Hemoglobin.total in Blood 10.1 HEMOGLOBIN A1c eCW1 ([facility]) ID Date Data Source [id number] 09/21/2020 12:05:00 PM EST [facility] Name Value Range Interpretation Code Description Data Naa rce(s) Supporting Document(s) SARS coronavirus 2 RNA [facility] This lab was ordered by [facility] and reported by [facility]. ID Date Data Source [id number] 09/09/2020 09:07:00 AM EST MEDENT ([facility], ) Name Value Range Interpretation Code Description Data Naa rce(s) Supporting Document(s) Thyrotropin [Units/volume] in Serum or Plasma 2.310 uIU/mL 0.450-4.50 0 MEDENT ([facility], ) A courtesy copy of this report has been sent to [phone], the patient Test(s) 988546-Zmnwbow E(Alpha Tocopherol); 125972- Vitamin E(Gamma Tocopherol); 730692-Qcxbinm B6; 256857- Vit. B1, Whole Blood was developed and its performance characteristics determined by [facility]. It has not been cleared or approved by the Food and Drug Administration. Thyroxine (T4) free [Mass/volume] in Serum or Plasma 1.15 ng/dL 0.82- 1.77 [facility] ([facility], ) A courtesy copy of this report has been sent to [phone], the patient Test(s) 316863-Wlzjeio E(Alpha Tocopherol); 533219- Vitamin E(Gamma Tocopherol); 129453-Aapsyov B6; 857000- Vit. B1, Whole Blood was developed and its performance characteristics determined by [facility]. It has not been cleared or approved by the Food and Drug Administration. Pyridoxine [Mass/volume] in Serum or Plasma 5.3 ug/L 2.0-32.8 [facility] ([facility], ) A courtesy copy of this report has been sent to [phone], the patient Test(s) 445510-Tndchkk E(Alpha Tocopherol); 322159- Vitamin E(Gamma Tocopherol); 976372-Qaoezcl B6; 339516- Vit. B1, Whole Blood was developed and its performance characteristics determined by [facility]. It has not been cleared or approved by the Food and Drug Administration. Thiamine [Mass/volume] in Blood 138.3 nmol/L 66.5-200.0 [facility] ([facility], ) A courtesy copy of this report has been sent to [phone], the patient Test(s) 730422-Nnqrmzw E(Alpha Tocopherol); 791540- Vitamin E(Gamma Tocopherol); 576722-Hsoruds B6; 270509- Vit. B1, Whole Blood was developed and its performance characteristics determined by [facility]. It has not been cleared or approved by the Food and Drug Administration. Laboratory test finding (navigational concept) Laboratory test result [facility] ([facility], ) A courtesy copy of this report has been sent to [phone], the patient Test(s) 698467-Ebzrysg E(Alpha Tocopherol); 366177- Vitamin E(Gamma Tocopherol); 080882-Kqsirsy B6; 671133- Vit. B1, Whole Blood was developed and its performance characteristics determined by [facility]. It has not been cleared or approved by the Food and Drug Administration. ID Date Data Source [id number] 09/09/2020 09:07:00 AM EST [facility] ([facility]) Name Value Range Interpretation Code Description Data Naa rce(s) Supporting Document(s) Alpha tocopherol [Mass/volume] in Serum or Plasma 11.0 mg/L 9.0-29.0 [facility] ([facility]) A courtesy copy of this report has been sent to [phone], the patient Test(s) 385600-Dubzazj E(Alpha Tocopherol); 755507- Vitamin E(Gamma Tocopherol); 875019-Jwkkzhj B6; 324733- Vit. B1, Whole Blood was developed and its performance characteristics determined by [facility]. It has not been cleared or approved by the Food and Drug Administration. Vitamin E(Gamma Tocopherol) 1.7 mg/L 0.5-4.9 [facility] ([facility]) A courtesy copy of this report has been sent to [phone], the patient Test(s) 243966-Offphga E(Alpha Tocopherol); 109860- Vitamin E(Gamma Tocopherol); 940067-Tazxejm B6; 151052- Vit. B1, Whole Blood was developed and its performance characteristics determined by [facility]. It has not been cleared or approved by the Food and Drug Administration. ID Date Data Source [id number] 09/09/2020 09:07:00 AM EST [facility] ([facility]) Name Value Range Interpretation Code Description Data Naa rce(s) Supporting Document(s) Folate (Folic Acid), Serum 10.6 ng/mL [facility] ([facility]) A courtesy copy of this report has been sent to [phone], the patient Test(s) 468460-Sascdmu E(Alpha Tocopherol); 245759- Vitamin E(Gamma Tocopherol); 937041-Tofyvdh B6; 226223- Vit. B1, Whole Blood was developed and its performance characteristics determined by [facility]. It has not been cleared or approved by the Food and Drug Administration. Cobalamin (Vitamin B12) [Mass/volume] in Serum or Plasma 619 pg/mL 2 32-1245 [facility] ([facility], ) A courtesy copy of this report has been sent to [phone], the patient Test(s) 141025-Njlwgpb E(Alpha Tocopherol); 459122- Vitamin E(Gamma Tocopherol); 499380-Almtfcf B6; 948683- Vit. B1, Whole Blood was developed and its performance characteristics determined by [facility]. It has not been cleared or approved by the Food and Drug Administration. ID Date Data Source [id number] 09/09/2020 09:07:00 AM EST [facility] ([facility]) Name Value Range Interpretation Code Description Data Naa rce(s) Supporting Document(s) Triiodothyronine resin uptake (T3RU) in Serum or Plasma 25 % 24 -39 [facility] ([facility]) A courtesy copy of this report has been sent to [phone], the patient Test(s) 209642-Jkgwjwj E(Alpha Tocopherol); 984563- Vitamin E(Gamma Tocopherol); 426169-Bgsawwd B6; 145664- Vit. B1, Whole Blood was developed and its performance characteristics determined by [facility]. It has not been cleared or approved by the Food and Drug Administration. Thyroxine (T4) free index in Serum or Plasma by calculation 1.9 1.2-4.9 [facility] ([facility]) A courtesy copy of this report has been sent to [phone], the patient Test(s) 135110-Uerckws E(Alpha Tocopherol); 777899- Vitamin E(Gamma Tocopherol); 340093-Hljxabf B6; 685872- Vit. B1, Whole Blood was developed and its performance characteristics determined by [facility]. It has not been cleared or approved by the Food and Drug Administration. Thyroxine (T4) [Mass/volume] in Serum or Plasma 7.7 ug/dL 4.5-12.0 [facility] ([facility]) A courtesy copy of this report has been sent to [phone], the patient Test(s) 970934-Cqcyvmg E(Alpha Tocopherol); 132330- Vitamin E(Gamma Tocopherol); 661216-Jrjdhkm B6; 155756- Vit. B1, Whole Blood was developed and its performance characteristics determined by [facility]. It has not been cleared or approved by the Food and Drug Administration. ID Date Data Source [id number] 07/12/2020 05:59:47 PM EDT [facility] Name Value Range Interpretation Code Description Data Naa rce(s) Supporting Document(s) POC GLUCOSE 136 mg/dL (70-99) H [facility] PERFORMED BY CLINICAL STAFF ID Date Data Source [id number] 07/12/2020 12:47:02 PM EDT [facility] Name Value Range Interpretation Code Description Data Naa rce(s) Supporting Document(s) POC GLUCOSE 143 mg/dL (70-99) H [facility] PERFORMED BY CLINICAL STAFF ID Date Data Source [id number] 07/12/2020 08:11:35 AM EDT [facility] Name Value Range Interpretation Code Description Data Naa rce(s) Supporting Document(s) POC GLUCOSE 86 mg/dL (70-99) [facility] NOTIFIED NURSEPERFORMED BY CLINICAL S TAFF ID Date Data Source [id number] 07/12/2020 07:44:11 AM EDT [facility] Name Value Range Interpretation Code Description Data Naa rce(s) Supporting Document(s) VANCOMYCIN RANDOM 14.6 ug/mL [facility] THERAPEUTIC RANGE IS ONLY AVAILABLE FOR PEAK AND TROUGH SPECIMENS. RANDOM LEVEL RESULTS MUST BE INTERPRETED BY THE PHYSICIAN. ID Date Data Source [id number] 07/12/2020 07:44:11 AM EDT [facility] Name Value Range Interpretation Code Description Data Naa rce(s) Supporting Document(s) SODIUM 147 mmol/L (136-145) H [facility] POTASSIUM 4.7 mmol/L (3.6-5.2) [facility] CHLORIDE 118 mmol/L (100-108) H [facility] CO2 20 mmol/L (22-31) L [facility] ANION GAP 9 mmol/L (7-16) [facility] UREA NITROGEN 46 mg/dL (7-24) H [facility] CREATININE 1.84 mg/dL (0.60-1.00) H [facility] BUN/CREAT RATIO 25.0 RATIO (10.0-20.0) H [facility] GLUCOSE 82 mg/dL (70-99) [facility] CALCIUM 8.0 mg/dL (8.4-10.2) L [facility] GFR 28 ml/min/1.73m2 (>59) L [facility] GFR ( AMER) 33 ml/min/1.73m2 (>59) L [facility] GFR INTERPRETATION [facility] --NORMAL KIDNEY FUNCTION OR MILD DISEASE - GFR >OR= 60CHRONIC KIDNEY DISEASE - GFR 15 - 59RENAL FAILURE - GFR <15 Est. GFR calculation based on the MDRDstudy equation, which assumes a steadystate for creatinine. Est. GFR should notbe used for medication dosing. ID Date Data Source [id number] 07/12/2020 07:33:53 AM EDT [facility] Name Value Range Interpretation Code Description Data Naa rce(s) Supporting Document(s) WBC 8.8 10*3/uL (4.1-11.0) [facility] RBC 2.89 10*6/uL (4.00-5.40) L [facility] HGB 7.7 g/dL (12.0-16.0) L [facility] HCT 24.6 % (36.0-47.0) L [facility] MCV 85.1 fL (80.0-95.0) [facility] MCH 26.7 pg (27.0-32.0) L [facility] MCHC 31.4 g/dL (32.0-36.0) L [facility] RDW 14.9 % (10.5-14.5) H [facility] PLT 252 10*3/uL (150-450) [facility] MPV 9.2 fL (7.1-10.7) [facility] ID Date Data Source [id number] 07/11/2020 09:28:10 PM EDT [facility] Name Value Range Interpretation Code Description Data Naa rce(s) Supporting Document(s) POC GLUCOSE 155 mg/dL (70-99) H [facility] PERFORMED BY CLINICAL STAFF ID Date Data Source [id number] 07/11/2020 06:28:01 PM EDT [facility] Name Value Range Interpretation Code Description Data Naa rce(s) Supporting Document(s) POC GLUCOSE 201 mg/dL (70-99) H [facility] PERFORMED BY CLINICAL STAFF ID Date Data Source [id number] 07/11/2020 01:23:48 PM EDT [facility] Name Value Range Interpretation Code Description Data Naa rce(s) Supporting Document(s) POC GLUCOSE 131 mg/dL (70-99) H [facility] PERFORMED BY CLINICAL STAFF ID Date Data Source [id number] 07/11/2020 08:42:29 AM EDT [facility] Name Value Range Interpretation Code Description Data Naa rce(s) Supporting Document(s) POC GLUCOSE 132 mg/dL (70-99) H [facility] NOTIFIED NURSEPERFORMED BY CLINICAL S TAFF ID Date Data Source [id number] 07/11/2020 06:58:21 AM EDT [facility] Name Value Range Interpretation Code Description Data Naa rce(s) Supporting Document(s) SODIUM 146 mmol/L (136-145) H [facility] POTASSIUM 4.9 mmol/L (3.6-5.2) [facility] CHLORIDE 118 mmol/L (100-108) H [facility] CO2 21 mmol/L (22-31) L [facility] ANION GAP 7 mmol/L (7-16) [facility] UREA NITROGEN 50 mg/dL (7-24) H [facility] CREATININE 2.07 mg/dL (0.60-1.00) H [facility] BUN/CREAT RATIO 24.2 RATIO (10.0-20.0) H [facility] GLUCOSE 146 mg/dL (70-99) H [facility] CALCIUM 7.8 mg/dL (8.4-10.2) L [facility] GFR 24 ml/min/1.73m2 (>59) L [facility] GFR ( AMER) 29 ml/min/1.73m2 (>59) L [facility] GFR INTERPRETATION [facility] --NORMAL KIDNEY FUNCTION OR MILD DISEASE - GFR >OR= 60CHRONIC KIDNEY DISEASE - GFR 15 - 59RENAL FAILURE - GFR <15 Est. GFR calculation based on the MDRDstudy equation, which assumes a steadystate for creatinine. Est. GFR should notbe used for medication dosing. ID Date Data Source [id number] 07/11/2020 06:32:22 AM EDT [facility] Name Value Range Interpretation Code Description Data Naa rce(s) Supporting Document(s) WBC 10.8 10*3/uL (4.1-11.0) [facility] RBC 2.66 10*6/uL (4.00-5.40) L [facility] HGB 7.4 g/dL (12.0-16.0) L [facility] HCT 22.6 % (36.0-47.0) L [facility] MCV 84.9 fL (80.0-95.0) [facility] MCH 27.8 pg (27.0-32.0) [facility] MCHC 32.8 g/dL (32.0-36.0) [facility] RDW 14.4 % (10.5-14.5) [facility] PLT 260 10*3/uL (150-450) [facility] MPV 9.4 fL (7.1-10.7) [facility] ID Date Data Source [id number] 07/10/2020 09:44:32 PM EDT [facility] Name Value Range Interpretation Code Description Data Naa rce(s) Supporting Document(s) POC GLUCOSE 184 mg/dL (70-99) H [facility] PERFORMED BY CLINICAL STAFF ID Date Data Source [id number] 07/10/2020 05:16:01 PM EDT [facility] Name Value Range Interpretation Code Description Data Naa rce(s) Supporting Document(s) POC GLUCOSE 155 mg/dL (70-99) H [facility] PERFORMED BY CLINICAL STAFF ID Date Data Source [id number] 07/10/2020 01:03:49 PM EDT [facility] Name Value Range Interpretation Code Description Data Naa rce(s) Supporting Document(s) POC GLUCOSE 182 mg/dL (70-99) H [facility] NOTIFIED NURSEPERFORMED BY CLINICAL S TAFF ID Date Data Source [id number] 07/10/2020 09:37:51 AM EDT [facility] Name Value Range Interpretation Code Description Data Naa rce(s) Supporting Document(s) POC GLUCOSE 130 mg/dL (70-99) H [facility] PERFORMED BY CLINICAL STAFF ID Date Data Source [id number] 07/10/2020 09:51:07 AM EDT [facility] Name Value Range Interpretation Code Description Data Naa rce(s) Supporting Document(s) VANCOMYCIN RANDOM 21.2 ug/mL [facility] THERAPEUTIC RANGE IS ONLY AVAILABLE FOR PEAK AND TROUGH SPECIMENS. RANDOM LEVEL RESULTS MUST BE INTERPRETED BY THE PHYSICIAN. ID Date Data Source [id number] 07/10/2020 05:33:22 AM EDT [facility] Name Value Range Interpretation Code Description Data Naa rce(s) Supporting Document(s) WBC 12.2 10*3/uL (4.1-11.0) H [facility] RBC 2.70 10*6/uL (4.00-5.40) L [facility] HGB 7.3 g/dL (12.0-16.0) L [facility] HCT 22.9 % (36.0-47.0) L [facility] MCV 85.1 fL (80.0-95.0) [facility] MCH 27.0 pg (27.0-32.0) [facility] MCHC 31.7 g/dL (32.0-36.0) L [facility] RDW 14.2 % (10.5-14.5) [facility] PLT 258 10*3/uL (150-450) [facility] MPV 9.3 fL (7.1-10.7) [facility] ID Date Data Source [id number] 07/10/2020 05:54:42 AM EDT [facility] Name Value Range Interpretation Code Description Data Naa rce(s) Supporting Document(s) SODIUM 145 mmol/L (136-145) [facility] POTASSIUM 4.8 mmol/L (3.6-5.2) [facility] CHLORIDE 119 mmol/L (100-108) H [facility] CO2 22 mmol/L (22-31) [facility] ANION GAP 4 mmol/L (7-16) L [facility] UREA NITROGEN 52 mg/dL (7-24) H [facility] CREATININE 2.13 mg/dL (0.60-1.00) H [facility] BUN/CREAT RATIO 24.4 RATIO (10.0-20.0) H [facility] GLUCOSE 162 mg/dL (70-99) H [facility] CALCIUM 7.7 mg/dL (8.4-10.2) L [facility] GFR 23 ml/min/1.73m2 (>59) L [facility] GFR ( AMER) 28 ml/min/1.73m2 (>59) L [facility] GFR INTERPRETATION [facility] --NORMAL KIDNEY FUNCTION OR MILD DISEASE - GFR >OR= 60CHRONIC KIDNEY DISEASE - GFR 15 - 59RENAL FAILURE - GFR <15 Est. GFR calculation based on the MDRDstudy equation, which assumes a steadystate for creatinine. Est. GFR should notbe used for medication dosing. ID Date Data Source [id number] 07/09/2020 10:05:35 PM EDT [facility] Name Value Range Interpretation Code Description Data Naa rce(s) Supporting Document(s) POC GLUCOSE 177 mg/dL (70-99) H [facility] PERFORMED BY CLINICAL STAFF ID Date Data Source [id number] 07/09/2020 06:44:59 PM EDT [facility] Name Value Range Interpretation Code Description Data Naa rce(s) Supporting Document(s) POC GLUCOSE 161 mg/dL (70-99) H [facility] NOTIFIED NURSEPERFORMED BY CLINICAL S TAFF ID Date Data Source [id number] 07/09/2020 05:21:49 PM EDT [facility] Name Value Range Interpretation Code Description Data Naa rce(s) Supporting Document(s) POC GLUCOSE 137 mg/dL (70-99) H [facility] NOTIFIED NURSEPERFORMED BY CLINICAL S TAFF ID Date Data Source [id number] 07/09/2020 01:18:10 PM EDT [facility] Name Value Range Interpretation Code Description Data Naa rce(s) Supporting Document(s) POC GLUCOSE 132 mg/dL (70-99) H [facility] PERFORMED BY CLINICAL STAFF ID Date Data Source [id number] 07/09/2020 04:28:00 PM [facility] [place] [address]PATIENT NAME: REGGIE JOHNSON OF : 1955REPORT: DISCHARGE SUMMARYPATIENT NUMBER: [id number] STATUS: OF ADMISSION:DATE OF DISCHARGE:ROOM:For specifics of the admission, please see the H and P by *------* LenR 07/05/2020.CONSULTATIONS: Including Infectious Disease, Orthopedic Surgery, and [facility].PHYSICAL EXAMINATION: Today, the patient indicates that back pain isdiminished though still present. Vital signs: Temperature 36.6, pulse 79,blood pressure 133/79. The patient is on 3 L nasal cannula withsaturations of 94 percent. Lungs are clear without wheeze, rales, rhonchior consolidation. Cardiac: Regular rate and rhythm. No murmurs, gallopsor rubs. Abdomen: Bowel sounds positive, soft, nontender. Extremities: No clubbing, cyanosis or edema.LABORATORY TESTING: BMP shows modest elevation in sodium at 146, BUN 57,creatinine 2.33, GFR 21. CBC showing a WBC of 11.8, H and H of 7.3/23.2which is stable, platelet count 258,000. CT-guided needle biopsy /08/2020 involving T7-T8. MRI cervical spine; no evidence o fosteomyelitis within the cervical spine status post ACDF at C4-C6, expectedpostoperative changes noted, adjacent segment of disk disease at C3-C4 andC6-C7 resulting in ervu-ra-cemgebug central spinal canal stenosis andeffacement of the ventral aspect of the thecal sac. MRI lumbar spine; noevidence of osteomyelitis, moderate central spinal canal stenosis at L2- I7bdawqrqcx to broad-based concentric disk bulge with associated ligamentumflavum hypertrophy/facet arthropathy. MRI thoracic spine, nonspecificfluid signal within T7-T8. Intervertebral disk space which is nonspecific.No significant marrow edema, paravertebral soft tissue swelling or epiduralfluid collection to suggest diskitis, osteomyelitis. Jvayyxhqsoisey11/06/2020; normal LV size and systolic function, estimated EF 60- 65percent, no evidence of regional wall motion abnormality, moderateconcentric left ventricular hypertrophy, grade 2 diastolic dysfunction,normal right ventricular cavity size and systolic function, left atriumseverely dilated, mild mitral valve regurgitation, tricuspid regurgitation,envelope is inadequate for calculation of right ventricular systolicpressure, no prior studies.SUMMARY/RECOMMENDATIONS:1. Osteomyelitis, which the ID Service is following. The patient did undergo the thoracic biopsy. Cultures and pathology will evaluate the biopsy specimens. At this point, we will continue vancomycin and meropenem. The ID Service will continue to follow.2. Pneumonia which has been treated.3. Chronic obstructive disease, which is stable.4. COPD. Echo showing possible diastolic dysfunction. She is not normally on diuretics. She is normally on fluid restriction, though she tells me this is for her renal function. At this point, I do not have her on fluid restriction, certainly if she should start to become volume overloaded, she should be placed on 1500 cc fluid restriction.5. Hypertension, which at this point is stable.6. Diabetes mellitus. Continue diet and sliding scale insulin. Our diabetes nurse practitioner is involved.7. Chronic renal failure. Baseline creatinine 2 to 3.8. Hyperkalemia has resolved after one dose of Kayexalate.9. BMP and CBC will be obtained tomorrow.10. I will be placing the patient on low potassium diet.DICTATED BY: Joie Myers, MDDictated: 07/09/2020 12:28DT: 07/09/2020 12:39Job #: [id number]: [facility] computer generated reports are notconfirmed or authenticated unless they are signed by the providerElectronically Authenticated by:JOIE MYERS MD On 07/09/2020 04:28 PM EDT Name Value Range Interpretation Code Description Data Naa rce(s) Supporting Document(s) ID Date Data Source [id number] 07/09/2020 09:41:51 AM EDT [facility] Name Value Range Interpretation Code Description Data Naa rce(s) Supporting Document(s) VANCOMYCIN RANDOM 20.5 ug/mL [facility] THERAPEUTIC RANGE IS ONLY AVAILABLE FOR PEAK AND TROUGH SPECIMENS. RANDOM LEVEL RESULTS MUST BE INTERPRETED BY THE PHYSICIAN. ID Date Data Source [id number] 07/09/2020 09:01:48 AM EDT [facility] Name Value Range Interpretation Code Description Data Naa rce(s) Supporting Document(s) POC GLUCOSE 96 mg/dL (70-99) [facility] NOTIFIED NURSEPERFORMED BY CLINICAL S TAFF ID Date Data Source [id number] 07/09/2020 07:50:16 AM EDT [facility] Name Value Range Interpretation Code Description Data Naa rce(s) Supporting Document(s) SODIUM 146 mmol/L (136-145) H [facility] POTASSIUM 5.0 mmol/L (3.6-5.2) [facility] CHLORIDE 119 mmol/L (100-108) H [facility] CO2 20 mmol/L (22-31) L [facility] ANION GAP 7 mmol/L (7-16) [facility] UREA NITROGEN 57 mg/dL (7-24) H [facility] CREATININE 2.33 mg/dL (0.60-1.00) H [facility] BUN/CREAT RATIO 24.5 RATIO (10.0-20.0) H [facility] GLUCOSE 93 mg/dL (70-99) [facility] CALCIUM 7.8 mg/dL (8.4-10.2) L [facility] GFR 21 ml/min/1.73m2 (>59) L [facility] GFR ( AMER) 25 ml/min/1.73m2 (>59) L [facility] GFR INTERPRETATION [facility] --NORMAL KIDNEY FUNCTION OR MILD DISEASE - GFR >OR= 60CHRONIC KIDNEY DISEASE - GFR 15 - 59RENAL FAILURE - GFR <15 Est. GFR calculation based on the MDRDstudy equation, which assumes a steadystate for creatinine. Est. GFR should notbe used for medication dosing. ID Date Data Source [id number] 07/09/2020 07:04:37 AM EDT [facility] Name Value Range Interpretation Code Description Data Naa rce(s) Supporting Document(s) WBC 11.7 10*3/uL (4.1-11.0) H [facility] RBC 2.69 10*6/uL (4.00-5.40) L [facility] HGB 7.3 g/dL (12.0-16.0) L [facility] HCT 23.2 % (36.0-47.0) L [facility] MCV 86.3 fL (80.0-95.0) [facility] MCH 27.3 pg (27.0-32.0) [facility] MCHC 31.6 g/dL (32.0-36.0) L [facility] RDW 14.4 % (10.5-14.5) [facility] PLT 258 10*3/uL (150-450) [facility] MPV 9.7 fL (7.1-10.7) [facility] ID Date Data Source [id number] 07/08/2020 09:41:06 PM EDT [facility] Name Value Range Interpretation Code Description Data Naa rce(s) Supporting Document(s) POC GLUCOSE 182 mg/dL (70-99) H [facility] PERFORMED BY CLINICAL STAFF ID Date Data Source [id number] 07/08/2020 05:35:55 PM EDT [facility] Name Value Range Interpretation Code Description Data Naa rce(s) Supporting Document(s) POC GLUCOSE 170 mg/dL (70-99) H [facility] PERFORMED BY CLINICAL STAFF ID Date Data Source [id number] 07/10/2020 12:21:00 PM EDT [facility] DATE OF EXAM: 07/08/2020CT GUIDED BONE B IOPSY. INDICATION: T7-T8 Discitis osteomyelitis COMPARISON: MR thoracic spine 07/06/2020 One or more of the following dose reduction techniques were utilized in effectively lowering the radiation dose for this examination: Automated Exposure Control, Adjustment of the mA and/or kV according to patient size, or Iterative Reconstruction. TECHNIQUE: Informed consent was obtained from the patient who understood risks of bleeding . The patient was placed prone on the CT table and a limited scan was performed which showed no significant change from the comparison study. Using sterile technique and local anesthesia, a 11-gauge guide needle was placed in the biopsy target with CT fluoroscopic guidance. 13-gauge core biopsies were obtained of the T8 vertebral body and disc space. Postbiopsy image shows no hemorrhage. Specimens sent for pathology. Patient was discharged with stable vital signs. Conscious sedation was utilized during the procedure with constant hemodynamic and oximetry monitoring by the nursing staff. The procedure, including conscious sedation, required 30 minutes. RADIATION EXPOSURE: 2187 mAs IMPRESSION: Uneventful core biopsy of T8 vertebral body at T7-T8 disc space. X3End of diagnostic report for accession: [id number] Interpreted: Jose Martin Ortega MDTranscribed: 07/10/2020 12:16 PMSigned: 07/10/2020 12:21 PM Jose Martin Ortega MD ---- [facility] # [id number] BILL # [id number] Name Value Range Interpretation Code Description Data Naa rce(s) Supporting Document(s) ID Date Data Source [id number] 07/13/2020 08:41:33 AM EDT [facility] SPECIMEN DESCRIPTION SITE T8 VERTEBRAESPECIAL REQUESTS NONECULTURE RESULTS NO ANAEROBES ISOLATED AFTER 5 DAYSREPORT STATUS FINAL 07/13/2020 Name Value Range Interpretation Code Description Data Naa rce(s) Supporting Document(s) ID Date Data Source [id number] 07/13/2020 08:41:28 AM EDT [facility] SPECIMEN DESCRIPTION SITE T8 VERTEBRAESPECIAL REQUESTS NONEGRAM STAIN MODERATE (10 TO 25/LPF) WHITE BLOOD CELLS NO BACTERIACULTURE RESULTS NO GROWTH 5 DAYSREPORT STATUS FINAL 07/13/2020 Name Value Range Interpretation Code Description Data Naa rce(s) Supporting Document(s) ID Date Data Source [id number] 07/09/2020 12:13:24 AM EDT [facility] SPECIMEN DESCRIPTION MISCELLANEOU S SPECIMENSPECIAL REQUESTS NONEGRAM STAIN NOT DONECULTURE RESULTS TEST(S) PROCESSED UNDER NEW ENTRY PLEASE SEE [facility] [id number]. [id number].REPORT STATUS FINAL 07/09/2020 Name Value Range Interpretation Code Description Data Naa rce(s) Supporting Document(s) ID Date Data Source [id number] 07/09/2020 12:12:32 AM EDT [facility] SPECIMEN DESCRIPTION MISCELLANEOU S SPECIMENSPECIAL REQUESTS NONECULTURE RESULTS TEST(S) PROCESSED UNDER NEW ENTRY PLEASE SEE [facility] [id number]. [id number].REPORT STATUS FINAL 07/09/2020 Name Value Range Interpretation Code Description Data Naa rce(s) Supporting Document(s) ID Date Data Source [id number] 07/08/2020 01:12:09 PM EDT [facility] Name Value Range Interpretation Code Description Data Naa rce(s) Supporting Document(s) POC GLUCOSE 172 mg/dL (70-99) H [facility] NOTIFIED NURSEPERFORMED BY CLINICAL S TAFF ID Date Data Source [id number] 07/12/2020 04:54:14 PM EDT [place], [place] [address]Tel# SURGICAL PATHOLOGY REPORTPatient Name:RITIKA JOHNSON:1955Received:07/09/2020Accession #:[id number](s) Received: A: 1 - 13g core O4Gvqityes Diagnosis and History: Thoracic spine osteomyelitis. DIAGNOSIS:BONE, T8, CORE BIOPSY BENIGN FRAGMENTS OF BONE WITH REACTIVE CHANGES.ASSOCIATED FATTY MARROW WITH SCATTERED PLASMA CELLS AND HEMOSIDERIN LADENMACROPHAGES. NO ACUTE INFLAMMATION OR ABNORMAL INFILTRATE IDENTIFIED. GROSS DESCRIPTION: Specimen received in formalin labeled "thoracic spine biopsy" are threecylindrical to focally fragmented fragments of velasquez-white bone varyingfrom 0.2 to 1.0 cm in length and averaging 0.2 cm in diameter. Thespecimens are submitted in toto for microscopic examination afterdecalcification. (1 block) [id number]/rceReported: 07/12/2020Electronically Signed Out By Daisha Velazquez M.D. jmdPathology Associates [place], [place] [address]Technical component performed at [facility], Histopathology, [address] [place] [address], Psychiatric hospital.Report ed at [facility], [address] [place] [address], [facility].This report may include immunohistochemical or in- situ hybridizationresults. Testing was developed and the performance characteristicsdetermined by [facility], as required byCLIA '88. The FDA has determined that approval for specific use is notnecessary for clinical use. The quality of Hematoxylin and Eosin stainsand as applicable, for all immunohistochemical and/or special stains,including positive and negative controls, were reviewed and consideredappropriate.ICD codes: R89.7CPT4 codes: A: 95897R, 23676G Name Value Range Interpretation Code Description Data Naa rce(s) Supporting Document(s) ID Date Data Source [id number] 07/08/2020 07:46:05 AM EDT [facility] Name Value Range Interpretation Code Description Data Naa rce(s) Supporting Document(s) POC GLUCOSE 156 mg/dL (70-99) H [facility] PERFORMED BY CLINICAL STAFF ID Date Data Source [id number] 07/08/2020 07:09:11 AM EDT [facility] Name Value Range Interpretation Code Description Data Naa rce(s) Supporting Document(s) VANCOMYCIN RANDOM 20.7 ug/mL [facility] THERAPEUTIC RANGE IS ONLY AVAILABLE FOR PEAK AND TROUGH SPECIMENS. RANDOM LEVEL RESULTS MUST BE INTERPRETED BY THE PHYSICIAN. ID Date Data Source [id number] 07/08/2020 07:09:11 AM EDT [facility] Name Value Range Interpretation Code Description Data Naa rce(s) Supporting Document(s) SODIUM 147 mmol/L (136-145) H [facility] POTASSIUM 4.8 mmol/L (3.6-5.2) [facility] CHLORIDE 118 mmol/L (100-108) H [facility] CO2 19 mmol/L (22-31) L [facility] ANION GAP 10 mmol/L (7-16) [facility] UREA NITROGEN 63 mg/dL (7-24) H [facility] CREATININE 2.46 mg/dL (0.60-1.00) H [facility] BUN/CREAT RATIO 25.6 RATIO (10.0-20.0) H [facility] GLUCOSE 149 mg/dL (70-99) H [facility] CALCIUM 7.7 mg/dL (8.4-10.2) L [facility] GFR 20 ml/min/1.73m2 (>59) L [facility] GFR ( AMER) 24 ml/min/1.73m2 (>59) L [facility] GFR INTERPRETATION [facility] --NORMAL KIDNEY FUNCTION OR MILD DISEASE - GFR >OR= 60CHRONIC KIDNEY DISEASE - GFR 15 - 59RENAL FAILURE - GFR <15 Est. GFR calculation based on the MDRDstudy equation, which assumes a steadystate for creatinine. Est. GFR should notbe used for medication dosing. ID Date Data Source [id number] 07/08/2020 06:36:38 AM EDT [facility] Name Value Range Interpretation Code Description Data Naa rce(s) Supporting Document(s) WBC 10.8 10*3/uL (4.1-11.0) [facility] RBC 2.64 10*6/uL (4.00-5.40) L [facility] HGB 7.4 g/dL (12.0-16.0) L [facility] HCT 22.4 % (36.0-47.0) L [facility] MCV 84.7 fL (80.0-95.0) [facility] MCH 27.9 pg (27.0-32.0) [facility] MCHC 32.9 g/dL (32.0-36.0) [facility] RDW 14.2 % (10.5-14.5) [facility] PLT 237 10*3/uL (150-450) [facility] MPV 9.9 fL (7.1-10.7) [facility] ID Date Data Source [id number] 07/07/2020 10:28:41 PM EDT [facility] Name Value Range Interpretation Code Description Data Naa rce(s) Supporting Document(s) POC GLUCOSE 203 mg/dL (70-99) H [facility] NOTIFIED NURSEPERFORMED BY CLINICAL S TAFF ID Date Data Source [id number] 07/07/2020 08:52:20 PM EDT [facility] Name Value Range Interpretation Code Description Data Naa rce(s) Supporting Document(s) SODIUM 145 mmol/L (136-145) [facility] POTASSIUM 5.1 mmol/L (3.6-5.2) [facility] CHLORIDE 120 mmol/L (100-108) H [facility] CO2 19 mmol/L (22-31) L [facility] ANION GAP 6 mmol/L (7-16) L [facility] UREA NITROGEN 64 mg/dL (7-24) H [facility] CREATININE 2.57 mg/dL (0.60-1.00) H [facility] BUN/CREAT RATIO 24.9 RATIO (10.0-20.0) H [facility] GLUCOSE 203 mg/dL (70-99) H [facility] CALCIUM 7.9 mg/dL (8.4-10.2) L [facility] GFR 19 ml/min/1.73m2 (>59) L [facility] GFR ( AMER) 23 ml/min/1.73m2 (>59) L [facility] GFR INTERPRETATION [facility] --NORMAL KIDNEY FUNCTION OR MILD DISEASE - GFR >OR= 60CHRONIC KIDNEY DISEASE - GFR 15 - 59RENAL FAILURE - GFR <15 Est. GFR calculation based on the MDRDstudy equation, which assumes a steadystate for creatinine. Est. GFR should notbe used for medication dosing. ID Date Data Source [id number] 07/07/2020 06:12:41 PM EDT [facility] Name Value Range Interpretation Code Description Data [facility] Supporting Document(s) POC GLUCOSE 171 mg/dL (70-99) H [facility] NOTIFIED NURSEPERFORMED BY CLINICAL S TAFF ID Date Data Source [id number] 07/07/2020 02:24:54 PM EDT [facility] Name Value Range Interpretation Code Description Data Naa rce(s) Supporting Document(s) SODIUM 142 mmol/L (136-145) [facility] POTASSIUM 5.6 mmol/L (3.6-5.2) H [facility] CHLORIDE 116 mmol/L (100-108) H [facility] CO2 19 mmol/L (22-31) L [facility] ANION GAP 7 mmol/L (7-16) [facility] UREA NITROGEN 68 mg/dL (7-24) H [facility] CREATININE 2.72 mg/dL (0.60-1.00) H [facility] BUN/CREAT RATIO 25.0 RATIO (10.0-20.0) H [facility] GLUCOSE 270 mg/dL (70-99) H [facility] CALCIUM 7.7 mg/dL (8.4-10.2) L [facility] GFR 18 ml/min/1.73m2 (>59) L [facility] GFR ( AMER) 21 ml/min/1.73m2 (>59) L [facility] GFR INTERPRETATION [facility] --NORMAL KIDNEY FUNCTION OR MILD DISEASE - GFR >OR= 60CHRONIC KIDNEY DISEASE - GFR 15 - 59RENAL FAILURE - GFR <15 Est. GFR calculation based on the MDRDstudy equation, which assumes a steadystate for creatinine. Est. GFR should notbe used for medication dosing. ID Date Data Source [id number] 07/07/2020 01:01:54 PM EDT [facility] Name Value Range Interpretation Code Description Data Naa rce(s) Supporting Document(s) POC GLUCOSE 293 mg/dL (70-99) H [facility] PERFORMED BY CLINICAL STAFF ID Date Data Source [id number] 07/07/2020 08:49:45 AM EDT [facility] Name Value Range Interpretation Code Description Data Naa rce(s) Supporting Document(s) POC GLUCOSE 221 mg/dL (70-99) H [facility] NOTIFIED NURSEPERFORMED BY CLINICAL S TAFF ID Date Data Source [id number] 07/07/2020 06:55:10 AM EDT [facility] Name Value Range Interpretation Code Description Data Naa rce(s) Supporting Document(s) VANCOMYCIN RANDOM 17.1 ug/mL [facility] THERAPEUTIC RANGE IS ONLY AVAILABLE FOR PEAK AND TROUGH SPECIMENS. RANDOM LEVEL RESULTS MUST BE INTERPRETED BY THE PHYSICIAN. ID Date Data Source [id number] 07/07/2020 06:55:10 AM EDT [facility] Name Value Range Interpretation Code Description Data [facility](s) Supporting Document(s) SODIUM 144 mmol/L (136-145) [facility] POTASSIUM 5.4 mmol/L (3.6-5.2) H [facility] CHLORIDE 118 mmol/L (100-108) H [facility] CO2 20 mmol/L (22-31) L [facility] ANION GAP 6 mmol/L (7-16) L [facility] UREA NITROGEN 69 mg/dL (7-24) H [facility] CREATININE 2.83 mg/dL (0.60-1.00) H [facility] BUN/CREAT RATIO 24.4 RATIO (10.0-20.0) H [facility] GLUCOSE 224 mg/dL (70-99) H [facility] CALCIUM 7.4 mg/dL (8.4-10.2) L [facility] GFR 17 ml/min/1.73m2 (>59) L [facility] GFR ( AMER) 20 ml/min/1.73m2 (>59) L [facility] GFR INTERPRETATION [facility] --NORMAL KIDNEY FUNCTION OR MILD DISEASE - GFR >OR= 60CHRONIC KIDNEY DISEASE - GFR 15 - 59RENAL FAILURE - GFR <15 Est. GFR calculation based on the MDRDstudy equation, which assumes a steadystate for creatinine. Est. GFR should notbe used for medication dosing. ID Date Data Source [id number] 07/07/2020 06:27:20 AM EDT [facility] Name Value Range Interpretation Code Description Data Naa rce(s) Supporting Document(s) WBC 10.6 10*3/uL (4.1-11.0) [facility] RBC 2.72 10*6/uL (4.00-5.40) L [facility] HGB 7.4 g/dL (12.0-16.0) L [facility] HCT 23.0 % (36.0-47.0) L [facility] MCV 84.5 fL (80.0-95.0) [facility] MCH 27.3 pg (27.0-32.0) [facility] MCHC 32.3 g/dL (32.0-36.0) [facility] RDW 13.9 % (10.5-14.5) [facility] PLT 220 10*3/uL (150-450) [facility] MPV 10.3 fL (7.1-10.7) [facility] ID Date Data Source [id number] 07/06/2020 10:42:04 PM EDT [facility] Name Value Range Interpretation Code Description Data Naa rce(s) Supporting Document(s) POC GLUCOSE 217 mg/dL (70-99) H [facility] PERFORMED BY CLINICAL STAFF ID Date Data Source [id number] 07/07/2020 09:16:00 AM EDT [facility] DATE OF EXAM: 07/06/2020[facility] MRI LUMBAR SPINE WITHOUT CONTRAST INDICATION: Osteomyelitis. COMPARISON: None. TECHNIQUE: MRI of the lumbar spine was performed without intravenous contrast, utilizing multiplanar sequences. FINDINGS: There is normal lumbar lordosis. Normal vertebral body heights, alignment, and marrow signal are maintained. A broad-based concentric disc bulge is identified at L2-L3, with associated ligamentum flavum hypertrophy and facet arthropathy, which results in moderate central spinal canal stenosis, without significant neural foraminal narrowing. Otherwise, multilevel degenerative disc disease and facet arthropathy is noted throughout the lumbar spine, not causing significant central spinal canal stenosis or neural foraminal narrowing. No paravertebral or epidural mass is seen. The conus appears unremarkable. IMPRESSION: No evidence of osteo-myelitis. Moderate central spinal canal stenosis at L2-L3, secondary to broad-based concentric disc bulge with associa ricki ligamentum flavum hypertrophy/facet arthropathy. D7End of diagnostic report for accession: [id number] Interpreted: Rex Hernández MDTranscribed: 07/07/2020 09:11 AMSigned: 07/07/2020 09:16 AM Rex Hernández MD [facility] # [id number] BILL # [id number] Name Value Range Interpretation Code Description Data Naa rce(s) Supporting Document(s) ID Date Data Source [id number] 07/07/2020 09:11:00 AM EDT [facility] DATE OF EXAM: 07/06/2020[facility] MRI THORACIC SPINE WITHOUT CONTRAST CLINICAL STATEMENT: Osteomyelitis. TECHNIQUE: MRI of the thoracic spine was performed without intravenous contrast utilizing multiplanar sequences: Sagittal T1, T2, IR and axial T2. COMPARISON: None. FINDINGS: There is normal thoracic kyphosis. Normal vertebral body heights and alignment are maintained. A small amount of fluid signal is demonstrated within the T7-T8 disc space. There is minimal nonspecific marrow signal changes within the endplates, which may be reactive and degenerative in etiology. No paravertebral soft tissue swelling or fluid collection is seen. There is no epidural fluid collection. No significant thoracic disc herniation, spinal canal stenosis or neural foraminal narrowing is identified. There is no evidence of cord compression. The visualized thoracic cord demonstrates normal size, morphology, and signal intensity. IMPRESSION: Nonspecific fluid signal within the T7-T8 intervertebral disc space, which is nonspecific. No significant marrow edema, paravertebral soft tissue swelling, or epidural fluid collection, to suggest discitis osteomyelitis. If clinical symptoms persist, consider a short interval follow-up contrast-enhanced examination in several days. D7End of diagnostic report for accession: [id number] Interpreted: Rex Hernández MDTranscribed: 07/07/2020 09:02 AMSigned: 07/07/2020 09:11 AM Rex Hernández MD [facility] # [id number] BILL # [id number] Name Value Range Interpretation Code Description Data Naa rce(s) Supporting Document(s) ID Date Data Source [id number] 07/07/2020 09:02:00 AM EDT [facility] DATE OF EXAM: 07/06/2020[facility] MRI CERVICAL SPINE WITHOUT CONTRAST CLINICAL STATEMENT: Osteomyelitis. TECHNIQUE: MRI of the cervical spine was obtained without contrast, utilizing multiplanar sequences. COMPARISON: None of this type. FINDINGS: The patient is status post anterior cervical discectomy and fusion at C4-C6. Ventral fixation hardware result in hardware susceptibility artifact, somewhat limiting evaluation of the corresponding vertebral bodies. The spinal canal is patent at the fused levels. At the adjacent segments C3-C4 and C6-C7, broad-based posterior disc osteophyte comple xes are present, which result in mild to moderate central spinal canal stenosis and effacement of the ventral aspect of the thecal sac. There is normal cervical lordosis. The visualized cervical spine demonstrates normal marrow signal. Normal vertebral body heights and alignment are maintained. There is no epidural or paravertebral disease. The spinal cord is normal in signal, size and morphology. IMPRESSION: No evidence of osteomyelitis within the cervical spine. Status post ACDF at C4-C6, expected postoperative changes. Adjacent segment disc disease at C3-C4 and C6-C7, resulting in mild to moderate central spinal canal stenosis and effacement of the ventral aspect of the thecal sac. D7End of diagnostic report for accession: [id number] Interpreted: Rex Hernández MDTranscribed: 07/07/2020 08:55 AMSigned: 07/07/2020 09:02 AM Rex Hernández MD [facility] # [id number] [facility] # [id number] Name Value Range Interpretation Code Description Data Naa rce(s) Supporting Document(s) ID Date Data Source [id number] 07/06/2020 09:30:39 PM EDT [facility] Name Value Range Interpretation Code Description Data Naa rce(s) Supporting Document(s) POC GLUCOSE 215 mg/dL (70-99) H [facility] PERFORMED BY CLINICAL STAFF ID Date Data Source [id number] 07/06/2020 06:45:24 PM EDT [facility] Name Value Range Interpretation Code Description Data Naa rce(s) Supporting Document(s) POC GLUCOSE 187 mg/dL (70-99) H [facility] NOTIFIED NURSEPERFORMED BY CLINICAL S TAFF ID Date Data Source [id number] 07/06/2020 03:17:15 PM EDT [facility] Name Value Range Interpretation Code Description Data Naa rce(s) Supporting Document(s) POC GLUCOSE 170 mg/dL (70-99) H [facility] NOTIFIED NURSEPERFORMED BY CLINICAL S TAFF ID Date Data Source [id number] 07/06/2020 02:00:13 PM EDT [facility] Name Value Range Interpretation Code Description Data Naa rce(s) Supporting Document(s) POC GLUCOSE 187 mg/dL (70-99) H [facility] PERFORMED BY CLINICAL STAFF ID Date Data Source [id number] 07/06/2020 09:40:37 AM EDT [facility] Name Value Range Interpretation Code Description Data Naa rce(s) Supporting Document(s) POC GLUCOSE 170 mg/dL (70-99) H [facility] PERFORMED BY CLINICAL STAFF ID Date Data Source [id number] 07/06/2020 08:43:52 AM EDT [facility] Name Value Range Interpretation Code Description Data Naa rce(s) Supporting Document(s) POC GLUCOSE 176 mg/dL (70-99) H [facility] PERFORMED BY CLINICAL STAFF ID Date Data Source [id number] 07/06/2020 08:38:35 AM EDT [facility] Name Value Range Interpretation Code Description Data Naa rce(s) Supporting Document(s) VANCOMYCIN RANDOM 8.0 ug/mL [facility] THERAPEUTIC RANGE IS ONLY AVAILABLE FOR PEAK AND TROUGH SPECIMENS. RANDOM LEVEL RESULTS MUST BE INTERPRETED BY THE PHYSICIAN. ID Date Data Source [id number] 07/06/2020 08:38:20 AM EDT [facility] Name Value Range Interpretation Code Description Data Naa rce(s) Supporting Document(s) ESR 114 mm/h (0-30) H [facility] ID Date Data Source [id number] 07/06/2020 07:33:29 AM EDT [facility] Name Value Range Interpretation Code Description Data Naa rce(s) Supporting Document(s) C REACTIVE PROTEIN @ 11.2 mg/dL (0.0-0.5) H [facility] [place] [facility] PERFORMED AT [address] [address] ID Date Data Source [id number] 07/06/2020 07:33:29 AM EDT [facility] Name Value Range Interpretation Code Description Data Naa rce(s) Supporting Document(s) SODIUM 143 mmol/L (136-145) [facility] POTASSIUM 4.9 mmol/L (3.6-5.2) [facility] CHLORIDE 117 mmol/L (100-108) H [facility] CO2 19 mmol/L (22-31) L [facility] ANION GAP 7 mmol/L (7-16) [facility] UREA NITROGEN 71 mg/dL (7-24) H [facility] CREATININE 3.47 mg/dL (0.60-1.00) H [facility] BUN/CREAT RATIO 20.5 RATIO (10.0-20.0) H [facility] GLUCOSE 193 mg/dL (70-99) H [facility] CALCIUM 7.6 mg/dL (8.4-10.2) L [facility] GFR 13 ml/min/1.73m2 (>59) L [facility] GFR ( AMER) 16 ml/min/1.73m2 (>59) L [facility] GFR INTERPRETATION [facility] --NORMAL KIDNEY FUNCTION OR MILD DISEASE - GFR >OR= 60CHRONIC KIDNEY DISEASE - GFR 15 - 59RENAL FAILURE - GFR <15 Est. GFR calculation based on the MDRDstudy equation, which assumes a steadystate for creatinine. Est. GFR should notbe used for medication dosing. ID Date Data Source [id number] 07/06/2020 07:20:12 AM EDT [facility] [place] Name Value Range Interpretation Code Description Data Naa rce(s) Supporting Document(s) HEMOGLOBIN A1C @ 10.5 % (4.0-6.0) H [facility] [place] Performed using NanoSteelta immunoassa y.Care must be taken when interpreting [id number] in patients with a hemoglobin variantor decreased erythrocyte lifespan. Values 5.7 - 6.4% suggest prediabetes.Values >=6.5% are diagnostic for diabetes.REFERENCE: DIABETES CARE 2018: 41(S13-S27).PERFORMED AT [address] [place] [address] EST AVERAGE GLUCOSE 255 mg/dL [facility] [place] ID Date Data Source [id number] 07/06/2020 06:59:36 AM EDT [facility] [place] Name Value Range Interpretation Code Description Data Naa rce(s) Supporting Document(s) WBC 13.2 10*3/uL (4.1-11.0) H [facility] RBC 2.85 10*6/uL (4.00-5.40) L [facility] HGB 7.5 g/dL (12.0-16.0) L [facility] HCT 23.6 % (36.0-47.0) L [facility] MCV 82.7 fL (80.0-95.0) [facility] MCH 26.2 pg (27.0-32.0) L [facility] MCHC 31.7 g/dL (32.0-36.0) L [facility] RDW 14.0 % (10.5-14.5) [facility] [place] PLT 250 10*3/uL (150-450) [facility] [place] MPV 10.1 fL (7.1-10.7) [facility] [place] ID Date Data Source [id number] 07/05/2020 10:34:01 PM EDT [facility] [place] Name Value Range Interpretation Code Description Data Naa rce(s) Supporting Document(s) POC GLUCOSE 233 mg/dL (70-99) H [facility] [place] NOTIFIED NURSEPERFORMED BY CLINICAL S TAFF ID Date Data Source [id number] 07/05/2020 10:11:00 PM EDT [facility] [place] Name Value Range Interpretation Code Description Data Naa rce(s) Supporting Document(s) SARS coronavirus 2 RNA [Presence] in Res piratory specimen by JOHN with probe detection [facility] [place] This lab was reported by [facility]. ID Date Data Source [id number] 07/06/2020 02:38:53 AM EDT [facility] Name Value Range Interpretation Code Description Data Naa rce(s) Supporting Document(s) SPECIMEN DESCRIPTION [facility] [place] COVID19 RESULT (NDET) [facility] THIS ASSAY AMPLIFIES AND DETECTSTHE TARG ET RNA USING REAL-TIME PCR.NEGATIVE 2019_NCOV RT-PCR RESULTS DONOT PRECLUDE 2019_NCOV INFECTION ANDSHOULD NOT BE USED THE SOLE BASISFOR PATIENT MANAGEMENT DECISIONS. COMMENT [facility] [place] UNDER AN EMERGENCY USE AUTHORIZATION(EUA ) FOR THE DETECTION AND/OR DIAGNOSISOF THE VIRUS THAT CAUSES COVID-19.EMAILED RESULT TO IC AT 0239 AO [id number]. [id number] FIRST TEST [facility] [place] EMPLOYED IN HLTHCARE [facility] [place] SYMPTOMATIC [facility] [place] DATE OF SYMPT ONSET [facility] [place] HOSPITALIZED [facility] [place] CONGREGATE CARE SET [facility] [place] [facility] [place] ID Date Data Source [id number] 07/05/2020 08:37:51 PM EDT [facility] [place] Name Value Range Interpretation Code Description Data Naa rce(s) Supporting Document(s) SODIUM 142 mmol/L (136-145) [facility] [place] POTASSIUM 5.2 mmol/L (3.6-5.2) [facility] CHLORIDE 114 mmol/L (100-108) H [facility] CO2 21 mmol/L (22-31) L [facility] ANION GAP 7 mmol/L (7-16) [facility] UREA NITROGEN 74 mg/dL (7-24) H [facility] CREATININE 3.74 mg/dL (0.60-1.00) H [facility] BUN/CREAT RATIO 19.8 RATIO (10.0-20.0) [facility] [place] GLUCOSE 199 mg/dL (70-99) H [facility] CALCIUM 7.8 mg/dL (8.4-10.2) L [facility] GFR 12 ml/min/1.73m2 (>59) L [facility] GFR ( AMER) 15 ml/min/1.73m2 (>59) L [facility] GFR INTERPRETATION [facility] [place] --NORMAL KIDNEY FUNCTION OR MILD DISEASE - GFR >OR= 60CHRONIC KIDNEY DISEASE - GFR 15 - 59RENAL FAILURE - GFR <15 Est. GFR calculation based on the MDRDstudy equation, which assumes a steadystate for creatinine. Est. GFR should notbe used for medication dosing. ID Date Data Source [id number] 07/05/2020 08:08:42 PM EDT [facility] Name Value Range Interpretation Code Description Data Naa rce(s) Supporting Document(s) WBC 11.9 10*3/uL (4.1-11.0) H [facility] RBC 2.92 10*6/uL (4.00-5.40) L [facility] HGB 7.8 g/dL (12.0-16.0) L [facility] HCT 24.5 % (36.0-47.0) L [facility] MCV 83.8 fL (80.0-95.0) [facility] MCH 26.7 pg (27.0-32.0) L [facility] MCHC 31.8 g/dL (32.0-36.0) L [facility] [place] RDW 13.8 % (10.5-14.5) [facility] [place] PLT 219 10*3/uL (150-450) [facility] [place] MPV 10.2 fL (7.1-10.7) [facility] [place] ID Date Data Source [id number] 07/05/2020 08:00:23 PM EDT [facility] [place] Name Value Range Interpretation Code Description Data Naa rce(s) Supporting Document(s) POC GLUCOSE 184 mg/dL (70-99) H [facility] [place] NOTIFIED NURSEPERFORMED BY CLINICAL S TAFF ID Date Data Source [id number] 03/17/2020 08:28:23 AM EDT [facility], PCName: Ritika Tsai: 1955Provider: Douglas Cary: 03/09/2020 Plan X-Ray I Hip-Uni Pelvis - 2 or 3 views (XRays were ordered, obtained and interpretedtoday in the office. Indication: pain/dysfunction.); Status:Complete; Done: 09Mar2020 Perform:SOS14 (General); Due:23Mar2020; Last Updated By:Ritika Brown; 03/09/2020 4:21:10 PM;Ordered; For:Hip pain; Ordered By:Elroy Cary;Weight Bearing Status : Weight bearing MRI (SOS) Referral Diagnostic Diagnostic Status: Need Information - FinancialAuthorization Requested for: 09Mar2020 Ordered;For: Arthralgia of lumbar spine; Ordered By: Elroy Cary Performed: Due: 23Mar2020; Last Updated By: Zoey Hernandez; 03/09/2020 4:59:51 PMMRI Ordered Contrast : 01: without gadoLaterality: : _Not Applicable ASSESSMENT: Right medial thigh pain. Ritika's hips are doing fine. She still has this bizarre medial distal right thigh pain, which I have never really understood what it is, and it is a year out from surgery and she still has it. She apparently had it in the hospital.On examination, hips move freely. X-rays of the pelvis and three views of the right hip, ordered, interpreted and taken in the office today for pain, show implant in good position without problems. I injected the medial right thigh half way down, between the distal two thirds, with 80 mg of Depo-Medrol and 10 cc of LIdocaine. PLAN:Regarding her right hip/thigh, I will be seeing her in a month to see if this had made any difference. The patient also describes back pain which is significant, so I am recommending an MRI of the lumbar spine as well. Signatures Electronically signed by : Alisha Kang, ; Mar 10 2020 10:54AM EST Electronically signed by : Elroy Cary M.D.; Mar 17 2020 8:28AM EST (Author) Name Value Range Interpretation Code Description Data Naa rce(s) Supporting Document(s) ID Date Data Source [id number] 01/21/2020 01:48:00 PM EDT [facility] Name Value Range Interpretation Code Description Data Naa rce(s) Supporting Document(s) Hemoglobin A1c/Hemoglobin.total in Blood 10.9 [facility] ([facility]) ID Date Data Source [id number] 01/21/2020 01:48:00 PM EDT [facility] ([facility]) Name Value Range Interpretation Code Description Data Naa rce(s) Supporting Document(s) Glucose 109 70-100 [facility] ([facility]) Blood Urea Nitrogen 55 7-18 [facility] ([facility]) Creatinine 2.06 0.55-1.3 [facility] ([facility]) Sodium 143 136-145 [facility] ([facility]) Potassium 4.8 3.5-5.1 [facility] ([facility]) Chloride 109 98-107 [facility] ([facility]) Carbon Dioxide 27 21-32 [facility] ([facility]) Glomerular filtration rate/1.73 sq M.pre dicted [Volume Rate/Area] in Serum or Plasma by Creatinine-based formula (MDRD) 25.8 [facility] ([facility]) Calcium 8.6 8.8-10.2 [facility] ([facility]) ID Date Data Source [id number] 01/21/2020 10:20:00 AM EDT [facility] ([facility], ) Name Value Range Interpretation Code Description Data Naa rce(s) Supporting Document(s) PDFReport SEE IMAGE [facility] ([facility], ) FVC-Pre 1.61 L [facility] ([facility], ) FVC-%Pred-Pre 59 L [facility] ([facility], ) FVC-Pred 2.72 L [facility] ([facility], ) Fev1-Pre 1.34 L [facility] ([facility], ) Fev1-Pred 2.08 L [facility] ([facility]) FVC-LLN 2.11 L [facility] ([facility]) Fev1-%Pred-Pre 64 L [facility] ([facility], ) Fev6-Pred 2.61 L [facility] ([facility], ) Fev1-LLN 1.56 L [facility] ([facility]) Fev6-%Pred-Pre 61 L [facility] ([facility], ) Fev6-Pre 1.61 L [facility] ([facility]) Fev6-LLN 2.01 L [facility] ([facility]) App4fdi-%Pred-Pre 108 % [facility] ([facility], ) Hjb5gmk-Takd 77 % [facility] ([facility]) Mmn1jxn-Ljt 83 % [facility] ([facility]) Gzj6ktf-Eiya 96 % [facility] ([facility]) Qew8njf-Ztb 100 % [facility] ([facility]) Bfl1ghe-HWZ 67 % [facility] ([facility]) FEFMax-Pre 5.39 L/E/sec [facility] ([facility], ) FEFMax-Pred 5.46 L/E/sec [facility] ([facility]) Vsr4ojt-%Pred-Pre 104 % [facility] ([facility]) Lbq0317-Cewe 1.95 L/E/sec [facility] ([facility]) FEFMax-LLN 3.96 L/E/sec [facility] ([facility]) FEFMax-%Pred-Pre 98 L/E/sec [facility] ([facility]) Qyh8347-%Pred-Pre 78 L/E/sec [facility] ([facility]) Xxv3227-App 1.53 L/E/sec [facility] ([facility]) ExpTime-Pre 7.24 sec [facility] ([facility]) Ywh2ola9-Jgpm 80 % [facility] ([facility]) Jqm2220-HIP 0.86 L/E/sec [facility] ([facility]) Cxo5pty4-SXM 71 % [facility] ([facility]) Pmy0xgh9-%Pred-Pre 104 % [facility] ([facility]) Umi6uhg2-Gfh 83 % [facility] ([facility]) ID Date Data Source VITAMIN [id number] 01/21/2020 12:00:00 AM EDT eCW1 ([facility]) Name Value Range Interpretation Code Description Data Naa rce(s) Supporting Document(s) 21.2 30.0-100.0 TOTAL 25(OH) VITAMIN D eC W1 ([facility]) ID Date Data Source Basic Metabolic Profile (BMP) 01/21/2020 12:00:00 AM EDT eCW 1 ([facility]) Name Value Range Interpretation Code Description Data Naa rce(s) Supporting Document(s) 55 7-18 BLOOD UREA NITROGEN eCW1 ([facility]) 109 70-100 GLUCOSE, FASTING eCW1 ([facility]) 2.06 0.55-1.30 CREATININE FOR GFR eCW1 ([facility]) 4.8 3.5-5.1 POTASSIUM SERUM eCW1 ([facility]) 143 136-145 SODIUM LEVEL eCW1 ([facility]) 25.8 >45 GLOMERULAR FILTRATION RATE eCW 1 ([facility]) 109 98-107 CHLORIDE LEVEL eCW1 ([facility]) 27 21-32 CARBON DIOXIDE LEVEL eCW1 ([facility]) 8.6 8.8-10.2 CALCIUM LEVEL eCW1 ([facility]) ID Date Data Source [id number] 10/17/2019 10:27:00 AM EST [facility] ([facility]) Name Value Range Interpretation Code Description Data Naa rce(s) Supporting Document(s) Troponin Laboratory test result [facility] ([facility]) Natriuretic peptide.B prohormone N-Terminal [Mass/volu me] in Serum or Plasma 3855 [facility] ([facility]) ID Date Data Source [id number] 10/17/2019 10:27:00 AM EST [facility] ([facility]) Name Value Range Interpretation Code Description Data Naa rce(s) Supporting Document(s) Creatine kinase [Enzymatic activity/volume] in Serum or Plasma 118 [facility] ([facility]) MB/CK Relative 2.54 [facility] ([facility]) CPK-MB 3.0 [facility] ([facility]) ID Date Data Source [id number] 10/17/2019 10:27:00 AM EST [facility] ([facility]) Name Value Range Interpretation Code Description Data Naa rce(s) Supporting Document(s) Albumin [Mass/volume] in Serum or Plasma 2.8 [facility] ([facility]) Alanine aminotransferase [Enzymatic activity/volume] in Serum or Pl asma 23 [facility] ([facility]) Calcium [Mass/volume] in Serum or Plasma 8.2 [facility] ([facility]) Carbon dioxide, total [Moles/volume] in Serum or Plasma 24 [facility] ([facility]) Chloride [Moles/volume] in Serum or Plasma 110 [facility] ([facility]) Alkaline phosphatase [Enzymatic activity/volume] in Serum or Plasma 8 8 [facility] ([facility]) Potassium [Moles/volume] in Serum or Plasma 4.0 [facility] ([facility]) Protein [Mass/volume] in Serum or Plasma 6.1 [facility] ([facility]) Sodium 143 [facility] ([facility]) Aspartate aminotransferase [Enzymatic activity/volume] in Serum or Plasma 6 [facility] ([facility]) Urea nitrogen [Mass/volume] in Serum or Plasma 45 [facility] ([facility]) Creatinine For GFR 2.04 [facility] ([facility]) Glucose 296 70-100 [facility] ([facility]) ID Date Data Source [id number] 10/17/2019 10:27:00 AM EST [facility] ([facility]) Name Value Range Interpretation Code Description Data Naa rce(s) Supporting Document(s) White Blood Count 8.1 4.0-10.0 [facility] ([facility]) Red Blood Count 3.84 4.00-5.40 [facility] ([facility]) Platelets 247 150-450 [facility] ([facility]) Hemoglobin 10.4 [facility] ([facility]) Hematocrit 33.5 [facility] ([facility]) Procedure Social History Code Duration Value Status Description Data Source(s ) Smoking 11/22/2020 12:00:00 AM EST Former Smoker completed Former Smoker eCW1 ([facility]) Smoking 11/04/2020 12:00:00 AM EST Former Smoker completed Former Smoker eCW1 ([facility]) Smoking 10/13/2020 12:00:00 AM EST Former Smoker completed Former Smoker eCW1 ([facility]) Smoking 10/13/2020 12:00:00 AM EST Former Smoker completed Former Smoker eCW1 ([facility]) Smoking 09/03/2020 12:00:00 AM EST Former Smoker completed Former Smoker eCW1 ([facility]) Smoking 09/03/2020 12:00:00 AM EST Former Smoker completed Former Smoker eCW1 ([facility]) Smoking 09/03/2020 12:00:00 AM EST Former Smoker completed Former Smoker eCW1 ([facility]) Smoking 09/03/2020 12:00:00 AM EST Former Smoker completed Former Smoker eCW1 ([facility]) Smoking 07/23/2020 12:00:00 AM EDT - 10/01/2007 12:00:00 AM EST Patient is a former smoker completed Patient is a former smoker [facility] ([facility], ) Smoking 07/22/2020 12:00:00 AM EDT Former Smoker completed Former Smoker eCW1 ([facility]) Smoking 07/22/2020 12:00:00 AM EDT Former Smoker completed Former Smoker eCW1 ([facility]) Smoking 07/22/2020 12:00:00 AM EDT Former Smoker completed Former Smoker eCW1 ([facility]) Smoking 07/22/2020 12:00:00 AM EDT Former Smoker completed Former Smoker eCW1 ([facility]) Smoking 07/22/2020 12:00:00 AM EDT Former Smoker completed Former Smoker eCW1 ([facility]) Smoking 07/06/2020 11:06:00 AM EDT Former Smoker completed Former Smoker [facility] Smoking 01/21/2020 12:00:00 AM EDT Former Smoker completed Former Smoker eCW1 ([facility]) Smoking 10/23/2019 12:00:00 AM EST Patient is a former smoker completed Patient is a former smoker [facility] ([facility]) Vital Signs ID Date Data Source [id number] Name Value Range Interpretation Code Description Data Source(s) Diastolic blood pressure 68 mm[Hg] 68 mm[Hg] eCW1 ([facility]) Systolic blood pressure 122 mm[Hg] 122 mm[Hg] e CW1 ([facility]) Body temperature 97.3 [degF] 97.3 [degF] eCW1 ( [facility]) Respiratory rate 20 /min 20 /min eCW1 ([facility]) Heart rate 74 /min 74 /min eCW1 ([facility]) Body mass index (BMI) [Ratio] 39.25 kg/m2 39.25 kg/m2 W1 ([facility]) Body height 60 [in_i] 60 [in_i] eCW1 ([facility]) Body weight 201 [lb_av] 201 [lb_av] eCW1 ([facility]) Diastolic blood pressure 70 mm[Hg] 70 mm[Hg] eCW1 ([facility]) Systolic blood pressure 120 mm[Hg] 120 mm[Hg] e CW1 ([facility]) Body temperature 97 [degF] 97 [degF] eCW1 ([facility]) Respiratory rate 20 /min 20 /min eCW1 ([facility]) Heart rate 77 /min 77 /min eCW1 ([facility]) Body mass index (BMI) [Ratio] 38.47 kg/m2 38.47 kg/m2 eCW1 ([facility]) Body height 60 [in_i] 60 [in_i] eCW1 ([facility]) Body weight 197 [lb_av] 197 [lb_av] eCW1 ([facility]) [place] body weight 100 [lb_av] 100 [lb_av] MEDEN T ([facility], ) Body mass index (BMI) [Ratio] 40.0 kg/m2 40.0 k g/m2 [facility] ([facility], ) Body weight 198.00 [lb_av] 198.00 [lb_av] MEDEN T ([facility], ) Body height 59 [in_i] 59 [in_i] [facility] ([facility], ) 4'11" Respiratory rate 12 /min 12 /min [facility] ( [facility], ) Diastolic blood pressure 80 mm[Hg] 80 mm[Hg] eCW1 ([facility]) Systolic blood pressure 142 mm[Hg] 142 mm[Hg] e CW1 ([facility]) Body temperature 96.7 [degF] 96.7 [degF] eCW1 ( [facility]) Respiratory rate 20 /min 20 /min eCW1 ([facility]) Heart rate 86 /min 86 /min eCW1 ([facility]) Body mass index (BMI) [Ratio] 39.84 kg/m2 39.84 kg/m2 eCW1 ([facility]) Body height 60 [in_i] 60 [in_i] eCW1 ([facility]) Body weight 204 [lb_av] 204 [lb_av] eCW1 ([facility]) Body weight 96.163 kg 96.163 kg [facility] ([facility]) [place] body weight 100 [lb_av] 100 [lb_av] MEDEN T ([facility]) Body mass index (BMI) [Ratio] 41.4 kg/m2 41.4 k g/m2 [facility] ([facility]) Body weight 212.00 [lb_av] 212.00 [lb_av] MEDEN T ([facility]) pt states Body height 60 [in_i] 60 [in_i] [facility] ([facility]) 5'0" Oxygen saturation in Arterial blood by Pulse oximetry 962 % 962 % [facility] ([facility]) Heart rate 77 /min 77 /min [facility] Diastolic blood pressure 80 mm[Hg] 80 mm[Hg] [facility] Systolic blood pressure 130 mm[Hg] 130 mm[Hg] M EDENT ([facility]) Diastolic blood pressure 84 mm[Hg] 84 mm[Hg] eCW1 ([facility]) Systolic blood pressure 142 mm[Hg] 142 mm[Hg] e CW1 ([facility]) Body temperature 97.1 [degF] 97.1 [degF] eCW1 ( [facility]) Respiratory rate 20 /min 20 /min eCW1 ([facility]) Heart rate 91 /min 91 /min eCW1 ([facility]) Body mass index (BMI) [Ratio] 41.98 kg/m2 41.98 kg/m2 [facility] ([facility]) Body height 60 [in_i] 60 [in_i] eCW1 ([facility]) Body weight 215 [lb_av] 215 [lb_av] eCW1 ([facility]) Deprecated Oxygen saturation in Capillary blood by Oximetry 98 % Normal (applies to non-numeric results) 98 % [facility] Heart rate 86 min Normal (applies to non-numeric resul ts) 86 min [facility] Diastolic blood pressure 85 mm[Hg] Normal (applies to non-numeric results) 85 mm[Hg] [facility] Systolic blood pressure 163 mm[Hg] Normal (applies t o non-numeric results) 163 mm[Hg] [facility] Body temperature 37.1 josue Normal (applies to non-numeric results) 37.1 josue [facility] Respiratory rate 18 min Normal (applies to non-numeric results) 18 min [facility] Body height 148.7424 cm Normal (applies to non-numeric res ults) 148.7424 cm [facility] Body weight Measured 90.718 kg Normal (applies to n on-numeric results) 90.718 kg [facility] Body mass index (BMI) [Ratio] 40.39 kg/m2 No rmal (applies to non-numeric results) 40.39 kg/m2 [facility] Body weight 98.431 kg 98.431 kg [facility] ([facility], ) [place] body weight 100 [lb_av] 100 [lb_av] [facility] Body mass index (BMI) [Ratio] 42.4 kg/m2 42.4 k g/m2 [facility] ([facility]) Body weight 217.00 [lb_av] 217.00 [lb_av] [facility] Body height 60 [in_i] 60 [in_i] [facility] ([facility]) 5'0" Body temperature 96.8 [degF] 96.8 [degF] [facility] ([facility]) Oxygen saturation in Arterial blood by Pulse oximetry 95 % 95 % [facility] ([facility]) Heart rate 75 /min 75 /min [facility] ([facility]) Diastolic blood pressure 72 mm[Hg] 72 mm[Hg] [facility] ([facility]) Systolic blood pressure 140 mm[Hg] 140 mm[Hg] M EDENT ([facility]) Diastolic blood pressure 76 mm[Hg] 76 mm[Hg] eCW1 ([facility]) Systolic blood pressure 142 mm[Hg] 142 mm[Hg] e CW1 ([facility]) Body temperature 97.6 [degF] 97.6 [degF] eCW1 ( [facility]) Respiratory rate 20 /min 20 /min eCW1 ([facility]) Heart rate 99 /min 99 /min eCW1 ([facility]) Body mass index (BMI) [Ratio] 42.38 kg/m2 42.38 kg/m2 eCW1 ([facility]) Body height 60 [in_us] 60 [in_us] eCW1 ([facility]) Body weight Measured 217 [lb_av] 217 [lb_av] eC W1 ([facility]) Diastolic blood pressure 78 mm[Hg] 78 mm[Hg] eCW1 ([facility]) Systolic blood pressure 138 mm[Hg] 138 mm[Hg] e CW1 ([facility]) Body temperature 97.9 [degF] 97.9 [degF] eCW1 ( [facility]) Respiratory rate 20 /min 20 /min eCW1 ([facility]) Heart rate 80 /min 80 /min eCW1 ([facility]) Body mass index (BMI) [Ratio] 39.84 kg/m2 39.84 kg/m2 eCW1 ([facility]) Body height 60 [in_us] 60 [in_us] eCW1 ([facility]) Body weight Measured 204 [lb_av] 204 [lb_av] eC W1 ([facility]) Diastolic blood pressure--sitting 88 mm[Hg] 88 mm[Hg] [facility] ([facility]) large cuff, Ra Systolic blood pressure--sitting 130 mm[Hg] 130 mm[Hg] [facility] ([facility]) large cuff, Ra Heart rate 76 /min 76 /min [facility] ([facility] Body mass index (BMI) [Ratio] 42.4 kg/m2 42.4 k g/m2 [facility] ([facility]) Body height 60 [in_i] 60 [in_i] [facility] 5'0" Body weight 217.00 [lb_av] 217.00 [lb_av] MEDEN T ([facility]) Body weight 97.978 kg 97.978 kg [facility] Body mass index (BMI) [Ratio] 42.2 kg/m2 42.2 k g/m2 [facility] ([facility]) Body weight 216.00 [lb_av] 216.00 [lb_av] MEDEN T ([facility]) Body height 60 [in_i] 60 [in_i] [facility] 5'0" Body temperature 97.8 [degF] 97.8 [degF] [facility] ([facility]) Oxygen saturation in Arterial blood by Pulse oximetry 94 % 94 % [facility] ([facility]) Heart rate 87 /min 87 /min [facility] ([facility]) Diastolic blood pressure 80 mm[Hg] 80 mm[Hg] [facility] ([facility]) Systolic blood pressure 123 mm[Hg] 123 mm[Hg] M [facility] ([facility]) ID Date Data Source [id number] 07/06/2020 09:56:36 AM EDT [facility] Name Value Range Interpretation Code Description Data Source(s) TRANSFER FROM [facility] Patient Treatment Plan of Care Planned Activity Planned Date Details Description Data Source (s) pantoprazole 20 MG Delayed Release Oral Tablet 10/13/2020 12:00:00 AM EST eCW1 ([facility]) [employer] - 10/13/2020 12:00:00 AM EST eCW1 ([facility]) [place] - 10/13/2020 12:00:00 AM EST eCW1 ([facility]) [employer] [place] - 10/13/2020 12:00:00 AM EST eCW1 ([facility]) pantoprazole 20 MG Delayed Release Oral Tablet 10/13/2020 12:00:00 AM EST eCW1 ([facility]) [employer] - 10/13/2020 12:00:00 AM EST eCW1 ([facility]) Cyclobenzaprine hydrochloride 5 MG Oral Tablet 07/22/2020 12:00:00 AM EDT eCW1 ([facility]) Sertraline 25 MG Oral Tablet 07/22/2020 12:00:00 AM EDT eCW1 ([facility]) Sertraline 25 MG Oral Tablet 07/22/2020 12:00:00 AM EDT eCW1 ([facility]) Cyclobenzaprine hydrochloride 5 MG Oral Tablet 07/22/2020 12:00:00 AM EDT eCW1 ([facility]) Sertraline 25 MG Oral Tablet 07/22/2020 12:00:00 AM EDT eCW1 ([facility]) Cyclobenzaprine hydrochloride 5 MG Oral Tablet 07/22/2020 12:00:00 AM EDT eCW1 ([facility]) Sertraline 25 MG Oral Tablet 07/22/2020 12:00:00 AM EDT eCW1 ([facility]) Cyclobenzaprine hydrochloride 5 MG Oral Tablet 07/22/2020 12:00:00 AM EDT eCW1 ([facility]) Sertraline 25 MG Oral Tablet 07/22/2020 12:00:00 AM EDT eCW1 ([facility]) Cyclobenzaprine hydrochloride 5 MG Oral Tablet 07/22/2020 12:00:00 AM EDT eCW1 ([facility]) gabapentin 100 MG Oral Capsule 01/21/2020 12:00:00 AM EDT eCW1 ([facility]) gabapentin 100 MG Oral Capsule 01/21/2020 12:00:00 AM EDT eCW1 ([facility]) gabapentin 100 MG Oral Capsule 01/21/2020 12:00:00 AM EDT eCW1 ([facility]) Glucometer 11/21/2019 12:00:00 AM EST e CW1 ([facility]) Albuterol 0.833 MG/ML / Ipratropium [place] 0.167 MG/M L Inhalant Solution 11/20/2019 12:00:00 AM EST eCW1 ([facility]) 200 ACTUAT Albuterol 0.09 MG/ACTUAT Metered Dose Inhal er [Ventolin] 11/20/2019 12:00:00 AM EST eCW1 ([facility]) 200 ACTUAT Albuterol 0.09 MG/ACTUAT Metered Dose Inhal er [Ventolin] 11/20/2019 12:00:00 AM EST eCW1 ([facility]) Albuterol 0.833 MG/ML / Ipratropium [place] 0.167 MG/M L Inhalant Solution 11/20/2019 12:00:00 AM EST eCW1 ([facility]) Amlodipine 2.5 MG Oral Tablet 11/20/2019 12:00:00 AM EST eCW1 ([facility]) Hydralazine Hydrochloride 10 MG Oral Tablet 11/20/2019 12:00:00 AM EST eCW1 ([facility]) Hydralazine Hydrochloride 10 MG Oral Tablet 11/20/2019 12:00:00 AM EST eCW1 ([facility]) Hydralazine Hydrochloride 10 MG Oral Tablet 11/20/2019 12:00:00 AM EST eCW1 ([facility]) Amlodipine 2.5 MG Oral Tablet 11/20/2019 12:00:00 AM EST eCW1 ([facility])
[2020-11-26] MEDS: MORPHINE 4 MG/ML 1ML VIAL/SYRINGE (J2270) IV PRN (16:43)
[2020-11-26 16:58] LABS: ALBUMIN 3.6 GM/DL (3.2-5.2); BILIRUBIN,DIRECT 0.1 MG/DL (0.0-0.2); BILIRUBIN,TOTAL 0.4 MG/DL (0.2-1.0)
--- NOTE | 2020-11-26 18:46 | REPVR ---
PROCEDURE INFORMATION: Exam: CT Abdomen And Pelvis Without Contrast Exam date and time: 11/26/2020 5:38 PM Age: 65 years old Clinical indication: Abdominal pain; Localized; Left lower quadrant (llq); Additional info: Abd pain TECHNIQUE: Imaging protocol: Computed tomography of the abdomen and pelvis without contrast. Radiation optimization: All CT scans at this facility use at least one of these dose optimization techniques: automated exposure control; mA and/or kV adjustment per patient size (includes targeted exams where dose is matched to clinical indication); or iterative reconstruction. COMPARISON: RENAL US 07/10/2019 2:23 PM FINDINGS: Lungs: There is streaky atelectasis and infiltrate at the left lung base. Heart: There is moderate cardiomegaly and no evidence of pericardial effusion. Liver: Normal appearing liver. Gallbladder and bile ducts: Normal gallbladder. Pancreas: Normal size pancreas. Spleen: Normal spleen. Adrenal glands: Normal sized adrenal glands. Kidneys and ureters: There are 2 calcified stones lower pole left kidney measuring 1 cm each. There may be some milk of calcium as well. There is a 2 mm calcified stone at the left ureteropelvic junction causing obstruction with moderate left hydronephrosis. There is marked swelling of the left kidney which may be secondary to obstruction and pyelonephritis. Stomach and bowel: There gas-filled loops of small bowel left upper quadrant which may be the result of mild ileus. Appendix: The appendix appears within the range of normal. Intraperitoneal space: There is severe stranding density in the left pararenal space and extending into the left paracolic space and left pelvis. The stranding density extends along the left ureter and retroperitoneum as well and probably the result of obstruction and inflammation. Vasculature: There is calcification of the aorta consistent with atherosclerotic changes. Lymph nodes: Unremarkable. No enlarged lymph nodes. Urinary bladder: Base of the urinary bladder is completely obscured by a total right and left hip Reproductive: Normal size uterus. There is an area of calcification in the fundus of the uterus. Bones/joints: There is posterior osteophyte formation at multiple levels lower thoracic to lower lumbar spine. Soft tissues: Unremarkable. IMPRESSION: 1. There are 2 calcified stones lower pole left kidney measuring 1 cm each. 2. There is a 2 cm calcified stone at the proximal left ureter/left ureterovesical junction causing high-grade obstruction and moderate left hydronephrosis. There is increased density/stranding density in the left pararenal space, extending into the left paracolic space and along the left ureter. Retroperitoneal fluid is noted anterior to the aortic bifurcation and left psoas muscle. This is probably secondary to extravasation of urine from obstruction and may also be the result of pyelonephritis and ureteritis. Electronically signed by: Cristian Colmenares On 11/26/2020 18:46:58 PM
[2020-11-26] MEDS ORDERED: cefTRIAXone SOD 2 GM in D5W MINI-BAG PLUS 50 ML IV ONE (18:50)
[2020-11-26] MEDS ORDERED: NS 1,000 ML IV SCH ×2 (18:55→22:55)
[2020-11-26] MEDS ORDERED: TRUL0.5I SC (19:34)
[2020-11-26] MEDS ORDERED: AMLO1TAB25 PO (19:34)
[2020-11-26] MEDS ORDERED: BISO10TA13 PO (19:34)
[2020-11-26] MEDS ORDERED: BUME0.5T2 PO (19:34)
[2020-11-26] MEDS ORDERED: SALMETEROL DISKUS 50MCG INHALER (SEREVENT) INH SCH (20:00)
[2020-11-26 20:12] LABS: RSV AMPLIFICATION NEGATIVE (NEGATIVE)
[2020-11-26] MEDS ORDERED: ATORVASTATIN 20 MG TAB PO SCH (21:00)
[2020-11-26] MEDS ORDERED: EZETIMIBE 10 MG TAB (ZETIA) PO SCH (21:00)
[2020-11-26] MEDS ORDERED: CONRAY-60 60% 50ML VIAL (Q9961) As Ordered ONE (21:35)
--- OUTSIDE RECORDS SUMMARY | 2020-11-26 21:41 | CCD ---
Author Author [facility] Organization [facility] Address Unknown Phone Unavailable Care Team Providers Care Card Maker Name Role Phone Kamala M Lili FLY RAISER LOCKSTITCH Unavailable Unavailable Fons, M Lili FLY RAISER LOCKSTITCH Unavailable Unavailable Fons, M Lili FLY RAISER LOCKSTITCH Unavailable Unavailable Fons, M Lili FLY RAISER LOCKSTITCH Unavailable Unavailable Fons, M Lili FLY RAISER LOCKSTITCH Unavailable Unavailable Fons, M Lili FLY RAISER LOCKSTITCH Unavailable Unavailable Fons, M Lili FLY RAISER LOCKSTITCH Unavailable Unavailable Fons, M Lili FLY RAISER LOCKSTITCH Unavailable Unavailable Fons, M Lili FLY RAISER LOCKSTITCH Unavailable Unavailable Fons, M Lili FLY RAISER LOCKSTITCH Unavailable Unavailable Fons, M Lili FLY RAISER LOCKSTITCH Unavailable Unavailable Fons, M Lili FLY RAISER LOCKSTITCH Unavailable Unavailable Fons, M Lili FLY RAISER LOCKSTITCH Unavailable Unavailable Fons, M Lili FLY RAISER LOCKSTITCH Unavailable Unavailable Fons, M Lili FLY RAISER LOCKSTITCH Unavailable Unavailable Fons, M Lili FLY RAISER LOCKSTITCH Unavailable Unavailable Fons, M Lili FLY RAISER LOCKSTITCH Unavailable Unavailable Fons, M Lili FLY RAISER LOCKSTITCH Unavailable Unavailable Fons, M Lili FLY RAISER LOCKSTITCH Unavailable Unavailable Fons, M Lili FLY RAISER LOCKSTITCH Unavailable Unavailable Fons, M Lili FLY RAISER LOCKSTITCH Unavailable Unavailable Fons, M Lili FLY RAISER LOCKSTITCH Unavailable Unavailable Fons, M Lili FLY RAISER LOCKSTITCH Unavailable Unavailable Fons, M Lili FLY RAISER LOCKSTITCH Unavailable Unavailable Fons, M Lili FLY RAISER LOCKSTITCH Unavailable Unavailable Fons, M Lili FLY RAISER LOCKSTITCH Unavailable Unavailable Fons, M Lili FLY RAISER LOCKSTITCH Unavailable Unavailable Fons, M Lili FLY RAISER LOCKSTITCH Unavailable Unavailable Fons, M Lili FLY RAISER LOCKSTITCH Unavailable Unavailable Fons, M Lili FLY RAISER LOCKSTITCH Unavailable Unavailable Fons, M Lili FLY RAISER LOCKSTITCH Unavailable Unavailable Fons, M Lili FLY RAISER LOCKSTITCH Unavailable Unavailable Fons, M Lili FLY RAISER LOCKSTITCH Unavailable Unavailable Fons, M Lili FLY RAISER LOCKSTITCH Unavailable Unavailable Fons, M Lili FLY RAISER LOCKSTITCH Unavailable Unavailable Fons, M Lili FLY RAISER LOCKSTITCH Unavailable Unavailable Fons, M Lili FLY RAISER LOCKSTITCH Unavailable Unavailable Fons, M Lili FLY RAISER LOCKSTITCH Unavailable Unavailable Fons, M Lili FLY RAISER LOCKSTITCH Unavailable Unavailable Fons, M Lili FLY RAISER LOCKSTITCH Unavailable Unavailable Fons, M Lili FLY RAISER LOCKSTITCH Unavailable Unavailable Fons, M Lili FLY RAISER LOCKSTITCH Unavailable Unavailable Fons, M Lili FLY RAISER LOCKSTITCH Unavailable Unavailable Fons, M Lili FLY RAISER LOCKSTITCH Unavailable Unavailable Fons, M Lili FLY RAISER LOCKSTITCH Unavailable Unavailable Fons, M Lili FLY RAISER LOCKSTITCH Unavailable Unavailable Fons, M Lili FLY RAISER LOCKSTITCH Unavailable Unavailable Fons, M Lili FLY RAISER LOCKSTITCH Unavailable Unavailable Fons, M Lili FLY RAISER LOCKSTITCH Unavailable Unavailable Fons, M Lili FLY RAISER LOCKSTITCH Unavailable Unavailable Fons, M Lili FLY RAISER LOCKSTITCH Unavailable Unavailable Fons, M Lili FLY RAISER LOCKSTITCH Unavailable Unavailable Fons, M Lili FLY RAISER LOCKSTITCH Unavailable Unavailable Fons, M Lili FLY RAISER LOCKSTITCH Unavailable Unavailable Fons, M Lili FLY RAISER LOCKSTITCH Unavailable Unavailable Rosamaria Singh PA Unavailable Unavailable [...] MD Unavailable Unavailable WetterhahnAurelio MD Unavailable Unavailable WetterhahnAureilo MD Unavailable Unavailable WetterhahnAurelio MD Unavailable Unavailable [...] Unavailable Unavailable Aurelio Segal MD Unavailable Unavailable Aureloi Segal MD Unavailable Unavailable JORGE MYERS MD [...] MYERS MD Unavailable Unavailable Fons, M Lili FLY RAISER LOCKSTITCH Unavailable Unavailable Fons, M Lili FLY RAISER LOCKSTITCH Unavailable Unavailable Fons, M Lili FLY RAISER LOCKSTITCH Unavailable Unavailable Fons, M Lili FLY RAISER LOCKSTITCH Unavailable Unavailable Fons, M Lili FLY RAISER LOCKSTITCH Unavailable Unavailable Fons, M Lili FLY RAISER LOCKSTITCH Unavailable Unavailable Fons, M Lili FLY RAISER LOCKSTITCH Unavailable Unavailable Fons, M Lili FLY RAISER LOCKSTITCH Unavailable Unavailable Fons, M Lili FLY RAISER LOCKSTITCH Unavailable Unavailable Fons, M Lili FLY RAISER LOCKSTITCH Unavailable Unavailable Fons, M Lili FLY RAISER LOCKSTITCH Unavailable Unavailable Fons, M Lili FLY RAISER LOCKSTITCH Unavailable Unavailable Fons, M Lili FLY RAISER LOCKSTITCH Unavailable Unavailable Fons, M Lili FLY RAISER LOCKSTITCH Unavailable Unavailable Fons, M Lili FLY RAISER LOCKSTITCH Unavailable Unavailable Fons, M Lili FLY RAISER LOCKSTITCH Unavailable Unavailable Fons, M Lili FLY RAISER LOCKSTITCH Unavailable Unavailable Fons, M Lili FLY RAISER LOCKSTITCH Unavailable Unavailable Fons, M Lili FLY RAISER LOCKSTITCH Unavailable Unavailable Fons, M Llii FLY RAISER LOCKSTITCH Unavailable Unavailable Fons, M Lili FLY RAISER LOCKSTITCH Unavailable Unavailable Fons, M Lili FLY RAISER LOCKSTITCH Unavailable Unavailable Fons, M Lili FLY RAISER LOCKSTITCH Unavailable Unavailable Fons, M Lili FLY RAISER LOCKSTITCH Unavailable Unavailable Fons, M Lili FLY RAISER LOCKSTITCH Unavailable Unavailable Fons, M Lili FLY RAISER LOCKSTITCH Unavailable Unavailable Fons, M Lili FLY RAISER LOCKSTITCH Unavailable Unavailable Fons, M Lili FLY RAISER LOCKSTITCH Unavailable Unavailable Fons, M Lili FLY RAISER LOCKSTITCH Unavailable Unavailable Fons, M Lili FLY RAISER LOCKSTITCH Unavailable Unavailable Fons, M Lili FLY RAISER LOCKSTITCH Unavailable Unavailable Fons, M Lili FLY RAISER LOCKSTITCH Unavailable Unavailable Fons, M Lili FLY RAISER LOCKSTITCH Unavailable Unavailable Fons, M Lili FLY RAISER LOCKSTITCH Unavailable Unavailable Fons, M Lili FLY RAISER LOCKSTITCH Unavailable Unavailable Fons, M Lili FLY RAISER LOCKSTITCH Unavailable Unavailable Fons, M Lili FLY RAISER LOCKSTITCH Unavailable Unavailable Fons, M Lili FLY RAISER LOCKSTITCH Unavailable Unavailable Fons, M Lili FLY RAISER LOCKSTITCH Unavailable Unavailable Fons, M Lili FLY RAISER LOCKSTITCH Unavailable Unavailable Fons, M Lili FLY RAISER LOCKSTITCH Unavailable Unavailable Fons, M Lili FLY RAISER LOCKSTITCH Unavailable Unavailable Fons, M Lili FLY RAISER LOCKSTITCH Unavailable Unavailable Fons, M Lili FLY RAISER LOCKSTITCH Unavailable Unavailable Fons, M Lili FLY RAISER LOCKSTITCH Unavailable Unavailable Fons, M Lili FLY RAISER LOCKSTITCH Unavailable Unavailable Fons, M Lili FLY RAISER LOCKSTITCH Unavailable Unavailable Fons, M Lili FLY RAISER LOCKSTITCH Unavailable Unavailable Fons, M Lili FLY RAISER LOCKSTITCH Unavailable Unavailable Fons, M Lili FLY RAISER LOCKSTITCH Unavailable Unavailable Fons, M Lili FLY RAISER LOCKSTITCH Unavailable Unavailable Fons, M Lili FLY RAISER LOCKSTITCH Unavailable Unavailable Fons, M Lili FLY RAISER LOCKSTITCH Unavailable Unavailable Fons, M Lili FLY RAISER LOCKSTITCH Unavailable Unavailable Fons, M Lili FLY RAISER LOCKSTITCH Unavailable Unavailable ZAHIRA BUSTILLO MD Unavailable Unavailable ZAHIRA BUSTILLO MD Unavailable Unavailable ZAHIRA BUSTILLO MD Unavailable Unavailable ZAHIRA BUSTILLO MD Unavailable Unavailable ZAHIRA BUSTILLO MD Unavailable Unavailable ZAHIRA BUSTILLO MD Unavailable Unavailable ZAHIRA BUSTILLO MD Unavailable Unavailable ZAHIRA BUSTILLO MD Unavailable Unavailable ZAHIRA BUSTILLO MD Unavailable Unavailable ZAHIRA BUSTILLO MD Unavailable Unavailable ZAHIRA BUSTILLO MD Unavailable Unavailable ZAHIRA BUSTILLO MD Unavailable Unavailable ZAHIRA BUSTLILO MD Unavailable Unavailable ZAHIRA BUSTILLO MD Unavailable [...] Unavailable Sabine HERRING MD Unavailable Unavailable JAZ, [id number] Unavailable Unavailable MAGAN CHAN MD Unavailable Unavailable [...] Unavailable Unavailable Hunter Moreno MD Unavailable Unavailable Hnuter Moreno MD Unavailable Unavailable Hunter Moreno MD [...] is protected by Article 27-F of the [facility] Public Health law. If you continue you may have access to information: Regarding HIV / AIDS; Provided by facilities licensed or operated by the [facility] Office of Mental Health; or Provided by the [facility] Office for People With Developmental Disabilities. If such information is present, then the following [facility] mandated warning applies: This information has [...] law may result in a fine or senior living sentence or both. A general authorization for the release of medical or other information is NOT sufficient authorization for further disc losure. Allergies and Adverse Reactions Type Description Substance Reaction Status Data Source(s ) Drug allergy Penicillin (For Allergies Use Only) Drug allergy Hives Active eCW1 ([facility]) Family History Family Member Name Family Member Gender Family Member Status Date o f Status Description Data Source(s) Unknown Unknown Problem MEDENT ([facility]) Unknown Unknown Problem MEDENT ([facility]) father,brother Unknown Male Problem MEDENT ([facility]) () Unknown Male Problem MEDENT ([facility]) Encounters Encounter Providers Location Date Indications Data Source(s ) [place] [address] [facility] [address] 11/22/2020 12:00:00 AM EST eCW1 ([facility]) Unknown [address] [facility] [place] [address] 11/18/2020 12:00:00 AM EST eCW1 ([facility]) Outpatient [address] [facility] [place] [address] 11/04/2020 12:00:00 AM EST eCW1 ([facility]) Unknown [address] [facility] [address] 10/27/2020 12:00:00 AM EST eCW1 ([facility]) Office Visit, Est Pt., Level 3 PC [address] [place] [address] 10/13/2020 12:00:00 AM EST eCW1 ([facility]) Unknown [address] [facility] [address] 10/08/2020 12:00:00 AM EST eCW1 ([facility]) Unknown [address] [facility] [address] 09/27/2020 12:00:00 AM EST eCW1 ([facility]) Unknown [address] [facility] [address] 09/21/2020 12:00:00 AM EST eCW1 [facility]) Outpatient Attender: Jese Moreno MD Main office - [facility] 09/09/2020 07:00:00 AM EST MEDENT ([facility]) Outpatient [address] [facility] [address] 09/03/2020 12:00:00 AM EST eCW1 ([facility]) Unknown [address] [facility] [address] 08/19/2020 12:00:00 AM EST eCW1 [facility]) Outpatient Attender: Christine VELASQUEZ-EVA 12:00:00 AM EST [facility] Unknown [address] [facility] [address] 08/04/2020 12:00:00 AM EST eCW1 ([facility] Unknown [address] [facility] [address] 07/26/2020 12:00:00 AM EDT eCW1 ([facility]) Office Visit, Est Pt., Level 4 PC [address] [place] [address] 07/22/2020 12:00:00 AM EDT eCW1 [facility]) Unknown [address] [facility] [address] 07/22/2020 12:00:00 AM EDT eCW1 ([facility]) Inpatient Attender: ILIANA ZHANG PH.D.A ttender: JOAQUIM HERRING MDAttender: JOIE MYERS MDAttender: ZAHIRA BUSTILLO MDAdmitter: ZAHIRA BUSTILLO MD 07/05/2020 08:00:23 PM EDT [facility] Inpatient Attender: JOAQUIM HERRING MDA ttender: JOIE MYERS MDAttender: MAGAN CHAN MDAttender: ILIANA ZHANG PH.D.Admitter: MAGAN CHAN MD 07/05/2020 05:47:00 PM EDT - 07/12/2020 06:59:00 PM EDT T7-T8 OSTEOMYLITIS PNEUMONIA ACUTE CHRONIC KIDNEY DISEASE [facility] T7-T8 OSTEOMYLITIS PNEUMONIA ACUTE CHRON IC KIDNEY DISEASE Patient discharged. Inpatient Attender: [id number] BATTLEBOROAttender: JOIE MYERS MD 07/05/2020 05:47:00 PM EDT [facility] [place] ( in Healthcare facility) Attender: ESTHER MYERS MDAdmitter: MAGAN CHAN MD 07/05/2020 05:47:00 PM EDT [facility] Outpatient Referrer: PROVIDER SYSTEM [place] 07/05/2020 1 2:57:00 PM EDT 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itis [facility] 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 itis Unknown [address] [facility] [address] 04/16/2020 12:00:00 AM EDT eCW1 ([facility]) Outpatient Attender: ELROY CARY MDReferrer: Lili Garcia 03/17/2020 08:28:23 AM EDT [facility] Recurring Patient Attender: ELROY Vigil: Aurelio whipple MD 03/09/2020 04:09:56 PM EDT [facility] [address] [facility] [address] 02/17/2020 12:00:00 AM EDT eCW1 ([facility]) [facility] [address] [place] [address], [place] [address] 02/17/2020 12:00:00 AM EDT eCW1 ([facility]) [facility] [address] [place] [address], [place] [address] 01/22/2020 12:00:00 AM EDT [facility]CW1 [facility] [place] [address] [address] 01/21/2020 12:00:00 AM EDT eCW1 [facility] [place] [address] [address] 12/30/2019 12:00:00 AM EDT eCW1 [facility] [place] [address] [address] 12/22/2019 12:00:00 AM EDT eCW1 [facility] [place]) Outpatient Referrer: Lili Wray FLY RAISER LOCKSTITCH 12/10/2019 05:59:00 AM E DT [facility] [address] [address] 12/02/2019 12:00:00 AM EST [facility] [address] [address] 11/27/2019 12:00:00 AM EST eCW1 [facility] [address] [address] 11/21/2019 12:00:00 AM EST [facility]CW1 [facility] [place] [address] [address] 11/11/2019 12:00:00 AM EST [facility]CW1 [facility] [place] [address] [address] 11/03/2019 12:00:00 AM EST [facility]CW1 [facility] [address] [address] 10/29/2019 12:00:00 AM EST eCW1 ([facility]) [address] [address] 10/27/2019 12:00:00 AM EST eCW1 ([facility]) Outpatient Referrer: Lili WHITE 10/23/2019 02:00:00 PM E [facility] Outpatient Attender: Krupa DOMINGUEZ Main Office 10/23/2019 11:45:0 0 AM EST MEDENT ([facility]) [address] [address] 10/21/2019 12:00:00 AM EST eCW1 ([facility]) [address] [address] 10/15/2019 12:00:00 AM EST eCW1 ([facility]) [address] [address] 10/10/2019 12:00:00 AM EST eCW1 ([facility]) Outpatient Attender: ORLANDO Bah/Sania/Ezequiel/Ari hagen 10/08/2019 10:30:00 AM EST MEDENT ([facility]) [address] [address] 09/30/2019 12:00:00 AM EST eCW1 ([facility]) Immunizations Vaccine Date Status Description Data Source(s) New in 2011. IIV4 07/23/2020 11:38:00 AM EDT completed MEDENT ([facility]) Medications Medication Brand Name [...] FOUR TIMES A DAY NEEDED SOLD: 11/07/2020 [facility] 1.5 mg/0.5 mL 11/01/2020 12:00:00 AM [...] suspended Pantoprazole Sodium 20 MG eCW1 ( [facility]) [employer] Margie [place] - [employer] [facility] [place] - 10/13/2020 12:00: 00 AM EST active [employer] [facility] [place] - eCW1 ([facility]) [employer]ie [employer] - [employer] Margie Sensor Syste m - 10/13/2020 12:00:00 AM EST active [employer] [employer] - eCW1 ([facility]) [employer] Margie [place] - [employer] [facility] [place] - 10/13/2020 12:00: 00 AM EST active [employer] [facility] [place] - eCW1 ([facility]) [employer] Margie [place] - [employer] [facility] [place] - 10/13/2020 12:00: 00 AM EST active [employer] [facility] [place] - eCW1 ([facility]) [employer] Margie [employer]ensor System - [employer]Style Margie Sensor Syste m - 10/13/2020 12:00:00 AM EST active [employer] Magrie [employer] - eCW1 ([facility]) pantoprazole 20 MG Delayed Release Oral Tablet Pantopr azole Sodium 20 MG Pantoprazole Sodium 20 MG 10/13/2020 12:00:00 AM EST 1.0 {tablet} suspended Pantoprazole Sodium 20 MG eCW1 ( [facility]) [employer] Margie [employer] System - [employer]Style Margie Sensor Syste m - 10/13/2020 12:00:00 AM EST active [employer] Margie [employer] - eCW1 ([facility]) [employer] Margie [employer] System - [employer]Style Margie Sensor Syste m - 10/13/2020 12:00:00 AM EST active [employer] Margie [employer] - eCW1 ([facility]) [employer] [facility] [place] - [employer] [facility] [place] - 10/13/2020 12:00: 00 AM EST active [employer] [facility] [place] - eCW1 ([facility]) pantoprazole 20 MG Delayed Release Oral Tablet Pantopr azole Sodium 20 MG Pantoprazole Sodium 20 MG 10/13/2020 12:00:00 AM EST 1.0 {tablet} active Pantoprazole Sodium 20 MG eCW1 ( [facility]) pantoprazole 20 MG Delayed Release Oral Tablet Pantopr azole Sodium 20 MG Pantoprazole Sodium 20 MG 10/13/2020 12:00:00 AM EST 1.0 {tablet} active Pantoprazole Sodium 20 MG eCW1 ( [facility]) pantoprazole 20 MG Delayed Release Oral Tablet Pantopr azole Sodium 20 MG Pantoprazole Sodium 20 MG 10/13/2020 12:00:00 AM EST 1.0 {tablet} suspended Pantoprazole Sodium 20 MG eCW1 ( [facility]) [employer] [facility]ie [place] - [employer] [facility] [place] - 10/13/2020 12:00: 00 AM EST active [employer] [facility] [place] - eCW1 ([facility]) [employer] Margie [employer]ensor System - [employer]Style Margie Sensor Syste m - 10/13/2020 12:00:00 AM EST active [employer] Margie [employer] - eCW1 ([facility]) 31 gauge x 1/4" 10/05/2020 12:00:00 [...] TABLET BY MOUTH EVERY DAY SOLD: 11/07/2020 [facility] atorvastatin 80 MG Oral Tablet ATORVASTATIN CALCIUM 08/09/2020 1 2:00:00 AM EST tablet 30 TAKE ONE TABLET BY MOUTH EVERY D AY TAKE ONE TABLET BY MOUTH EVERY DAY SOLD: 08/10/2020 [facility] 0.25 mcg 07/31/2020 12:00:00 AM EDT capsule 36 ONE CAPSULE BY MOUTH ON SUNDAY, SUNDAY AND SUNDAY ONE CAPSULE BY MOUTH ON AND SUNDAY SOLD: 08/03/2020 [facility] [...] EVERY DAY SOLD: 08/03/2020 [facility] Calcitriol 0.48255 MG Oral Capsule 0.25 mcg CALCITRIOL 07/31/2020 [...] EDT active Cyclobenzaprine HCl 5 MG eCW1 ([facility]) 25 mg 07/22/2020 12:00:00 AM EDT tablet 30 TAKE ONE TABLET BY MOUTH EVERY DAY TAKE ONE TABLET BY MOUTH EVERY DAY SOLD: 08/31/2020 [facility] Cyclobenzaprine hydrochloride 5 MG Oral Tablet Cyclobe nzaprine HCl 5 MG Cyclobenzaprine HCl 5 MG 07/22/2020 12:00:00 AM EDT active Cyclobenzaprine HCl 5 MG eCW1 ([facility]) Sertraline 25 MG Oral Tablet Sertraline HCl 25 MG Sertraline HCl 25 MG 07/22/2020 12:00:00 AM EDT 1.0 {tablet} active Sertraline HCl 25 MG eCW1 ([facility]) Cyclobenzaprine hydrochloride 5 MG Oral Tablet Cyclobe nzaprine HCl 5 MG Cyclobenzaprine HCl 5 MG 07/22/2020 12:00:00 AM EDT active Cyclobenzaprine HCl 5 MG eCW1 ([facility]) 25 mg 07/22/2020 12:00:00 AM EDT tablet 30 TAKE ONE TABLET BY MOUTH EVERY DAY TAKE ONE TABLET BY MOUTH EVERY DAY SOLD: 07/26/2020 [facility] Sertraline 25 MG Oral Tablet Sertraline HCl 25 MG Sertraline HCl 25 MG 07/22/2020 12:00:00 AM EDT 1.0 {tablet} active Sertraline HCl 25 MG eCW1 ([facility]) Cyclobenzaprine hydrochloride 5 MG Oral Tablet Cyclobe nzaprine HCl 5 MG Cyclobenzaprine HCl 5 MG 07/22/2020 12:00:00 AM EDT active Cyclobenzaprine HCl 5 MG eCW1 ([facility]) Cyclobenzaprine hydrochloride 5 MG Oral Tablet Cyclobe nzaprine HCl 5 MG Cyclobenzaprine HCl 5 MG 07/22/2020 12:00:00 AM EDT active Cyclobenzaprine HCl 5 MG eCW1 ([facility]) Cyclobenzaprine hydrochloride 5 MG Oral Tablet Cyclobe nzaprine HCl 5 MG Cyclobenzaprine HCl 5 MG 07/22/2020 12:00:00 AM EDT suspended Cyclobenzaprine HCl 5 MG eCW1 ([facility]) Cyclobenzaprine hydrochloride 5 MG Oral Tablet Cyclobe nzaprine HCl 5 MG Cyclobenzaprine HCl 5 MG 07/22/2020 12:00:00 AM EDT suspended Cyclobenzaprine HCl 5 MG eCW1 ([facility]) Cyclobenzaprine hydrochloride 5 MG Oral Tablet Cyclobe nzaprine HCl 5 MG Cyclobenzaprine HCl 5 MG 07/22/2020 12:00:00 AM EDT active Cyclobenzaprine HCl 5 MG eCW1 ([facility]) Sertraline 25 MG Oral Tablet Sertraline HCl 25 MG Sertraline HCl 25 MG 07/22/2020 12:00:00 AM EDT 1.0 {tablet} active Sertraline HCl 25 MG eCW1 ([facility]) Cyclobenzaprine hydrochloride 5 MG Oral Tablet Cyclobe nzaprine HCl 5 MG Cyclobenzaprine HCl 5 MG 07/22/2020 12:00:00 AM EDT active Cyclobenzaprine HCl 5 MG eCW1 ([facility]) Cyclobenzaprine hydrochloride 5 MG Oral Tablet Cyclobe nzaprine HCl 5 MG Cyclobenzaprine HCl 5 MG 07/22/2020 12:00:00 AM EDT suspended Cyclobenzaprine HCl 5 MG eCW1 ([facility]) Sertraline 25 MG Oral Tablet Sertraline HCl 25 MG Sertraline HCl 25 MG 07/22/2020 12:00:00 AM EDT 1.0 {tablet} active Sertraline HCl 25 MG eCW1 ([facility]) Sertraline 25 MG Oral Tablet Sertraline HCl 25 MG Sertraline HCl 25 MG 07/22/2020 12:00:00 AM EDT 1.0 {tablet} active Sertraline HCl 25 MG eCW1 ([facility]) Cyclobenzaprine hydrochloride 5 MG Oral Tablet Cyclobe nzaprine HCl 5 MG Cyclobenzaprine HCl 5 MG 07/22/2020 12:00:00 AM EDT active Cyclobenzaprine HCl 5 MG eCW1 ([facility]) Cyclobenzaprine hydrochloride 5 MG Oral Tablet Cyclobe nzaprine HCl 5 MG Cyclobenzaprine HCl 5 MG 07/22/2020 12:00:00 AM EDT active Cyclobenzaprine HCl 5 MG eCW1 ([facility]) Sertraline 25 MG Oral Tablet Sertraline HCl 25 MG Sertraline HCl 25 MG 07/22/2020 12:00:00 AM EDT 1.0 {tablet} active Sertraline HCl 25 MG eCW1 ([facility]) Sertraline 25 MG Oral Tablet Sertraline HCl 25 MG Sertraline HCl 25 MG 07/22/2020 12:00:00 AM EDT 1.0 {tablet} active Sertraline HCl 25 MG eCW1 ([facility]) Cyclobenzaprine hydrochloride 5 MG Oral Tablet Cyclobe nzaprine HCl 5 MG Cyclobenzaprine HCl 5 MG 07/22/2020 12:00:00 AM EDT active Cyclobenzaprine HCl 5 MG eCW1 ([facility]) Cyclobenzaprine hydrochloride 5 MG Oral Tablet Cyclobe nzaprine HCl 5 MG Cyclobenzaprine HCl 5 MG 07/22/2020 12:00:00 AM EDT active Cyclobenzaprine HCl 5 MG eCW1 ([facility]) Sertraline 25 MG Oral Tablet Sertraline HCl 25 MG Sertraline HCl 25 MG 07/22/2020 12:00:00 AM EDT 1.0 {tablet} active Sertraline HCl 25 MG eCW1 ([facility]) 1,250 mcg (50,000 unit) 07/20/2020 12:00:00 [...] A DAY WITH MEALS SOLD: 11/01/2020 [facility] 10 mg 04/01/2020 12:00:00 AM EDT [...] EVERY DAY SOLD: 08/21/2020 [facility] Calcitriol 0.99960 MG Oral Capsule 0.25 mcg CALCITRIOL 02/13/2020 12:00:00 AM EDT capsule 36 ONE CAPSULE BY MOUTH ON , SUNDAY AND SUNDAY ONE CAPSULE BY MOUTH ON SUNDAY, SUNDAY AND SUNDAY SOLD: 05/10/2020 [facility] Calcitriol 0.13553 MG Oral Capsule 0.25 mcg CALCITRIOL 02/13/2020 [...] {capsule} active G abapentin 100 MG eCW1 ([facility]) gabapentin 100 MG Oral Capsule Gabapentin 100 MG Gabapentin 100 MG 01/21/2020 12:00:00 AM EDT 1.0 {capsule} active G abapentin 100 MG eCW1 ([facility]) gabapentin 100 MG Oral Capsule Gabapentin 100 MG Gabapentin 100 MG 01/21/2020 12:00:00 AM EDT 1.0 {capsule} active G abapentin 100 MG eCW1 ([facility]) gabapentin 100 MG Oral Capsule Gabapentin 100 MG Gabapentin 100 MG 01/21/2020 12:00:00 AM EDT 1.0 {capsule} active G abapentin 100 MG eCW1 ([facility]) gabapentin 100 MG Oral Capsule Gabapentin 100 MG Gabapentin 100 MG 01/21/2020 12:00:00 AM EDT 1.0 {capsule} active G abapentin 100 MG eCW1 ([facility]) gabapentin 100 MG Oral Capsule Gabapentin 100 MG Gabapentin 100 MG 01/21/2020 12:00:00 AM EDT 1.0 {capsule} active G abapentin 100 MG eCW1 ([facility]) gabapentin 100 MG Oral Capsule Gabapentin 100 MG Gabapentin 100 MG 01/21/2020 12:00:00 AM EDT 1.0 {capsule} active G abapentin 100 MG eCW1 ([facility]) gabapentin 100 MG Oral Capsule Gabapentin 100 MG Gabapentin 100 MG 01/21/2020 12:00:00 AM EDT 1.0 {capsule} active G abapentin 100 MG eCW1 ([facility]) 100 mg 01/21/2020 12:00:00 AM EDT [...] {capsule} active G abapentin 100 MG eCW1 ([facility]) gabapentin 100 MG Oral Capsule Gabapentin 100 MG Gabapentin 100 MG 01/21/2020 12:00:00 AM EDT 1.0 {capsule} active G abapentin 100 MG eCW1 ([facility]) 100 mg 01/21/2020 12:00:00 AM EDT capsule 60 TAKE ONE CAPSULE BY MOUTH TWICE A DAY TAKE ONE CAPSULE BY MOUTH TWICE A DAY SOLD: 01/22/2020 [facility] gabapentin 100 MG Oral Capsule Gabapentin 100 MG Gabapentin 100 MG 01/21/2020 12:00:00 AM EDT active 1 capsul e eCW1 ([facility]) gabapentin 100 MG Oral Capsule Gabapentin 100 MG Gabapentin 100 MG 01/21/2020 12:00:00 AM EDT 1.0 {capsule} active G abapentin 100 MG eCW1 ([facility]) gabapentin 100 MG Oral Capsule Gabapentin 100 MG Gabapentin 100 MG 01/21/2020 12:00:00 AM EDT 1.0 {capsule} active G abapentin 100 MG eCW1 ([facility]) gabapentin 100 MG Oral Capsule Gabapentin 100 MG Gabapentin 100 MG 01/21/2020 12:00:00 AM EDT 1.0 {capsule} active G abapentin 100 MG eCW1 ([facility]) gabapentin 100 MG Oral Capsule Gabapentin 100 MG Gabapentin 100 MG 01/21/2020 12:00:00 AM EDT 1.0 {capsule} active G abapentin 100 MG eCW1 ([facility]) gabapentin 100 MG Oral Capsule Gabapentin 100 MG Gabapentin 100 MG 01/21/2020 12:00:00 AM EDT 1.0 {capsule} active G abapentin 100 MG eCW1 ([facility]) Bumetanide 1 MG Oral Tablet BUMETANIDE [...] A DAY WITH INSULIN PEN SOLD: 12/14/2019 [facility] Hydralazine Hydrochloride 10 MG Oral [...] 12:00:00 AM EST active as directed eCW1 ([facility]) Glucometer UNK 11/21/2019 12:00:00 AM EST active as directed eCW1 ([facility]) Hydralazine Hydrochloride 10 MG Oral Tablet HydrALAZIN E HCl 10 MG HydrALAZINE HCl 10 MG 11/20/2019 12:00:00 AM EST 2.0 {tablets} s uspended HydrALAZINE HCl 10 MG eCW1 ([facility]) 200 ACTUAT Albuterol 0.09 MG/ACTUAT Mete red Dose Inhaler [Ventolin] Ventolin HFA 108 (90 Base) MCG/ACT Ventolin HFA 108 (90 Base) MCG/ACT 11/20/2019 12:00:00 AM EST 2.0 {puffs} active Ventolin HFA 108 (90 Base) MCG/ACT eCW1 ([facility]) 200 ACTUAT Albuterol 0.09 MG/ACTUAT Mete red Dose Inhaler [Ventolin] Ventolin HFA 108 (90 Base) MCG/ACT Ventolin HFA 108 (90 Base) MCG/ACT 11/20/2019 12:00:00 AM EST 2.0 {puffs} active Ventolin HFA 108 (90 Base) MCG/ACT eCW1 ([facility]) Hydralazine Hydrochloride 10 MG Oral Tablet HydrALAZIN E HCl 10 MG HydrALAZINE HCl 10 MG 11/20/2019 12:00:00 AM EST 2.0 {tablets} s uspended HydrALAZINE HCl 10 MG eCW1 ([facility]) Hydralazine Hydrochloride 10 MG Oral Tablet HydrALAZIN E HCl 10 MG HydrALAZINE HCl 10 MG 11/20/2019 12:00:00 AM EST 2.0 {tablets} s uspended HydrALAZINE HCl 10 MG eCW1 ([facility]) Acetaminophen 325 MG / Oxycodone Hydroch loride 5 MG Oral Tablet Oxycodone- Acetaminophen 5-325 MG Oxycodone-Acetaminophen 5-325 MG 11/20/2019 12:00:00 A M EST active 1 tab eCW1 ([facility]) Albuterol 0.833 MG/ML / Ipratropium Brom rafael 0.167 MG/ML Inhalant Solution Ipratropium-Albuterol 0.5-2.5 (3) MG/3ML Ipratropium-Albuterol 0.5-2.5 (3) MG/3ML 11/20/2019 12:00:00 AM EST 3.0 {ml} active Ipratropium- Albuterol 0.5-2.5 (3) MG/3ML eCW1 ([facility]) Hydralazine Hydrochloride 10 MG Oral Tablet HydrALAZIN E HCl 10 MG HydrALAZINE HCl 10 MG 11/20/2019 12:00:00 AM EST 2.0 {tablets} s uspended HydrALAZINE HCl 10 MG eCW1 ([facility]) 200 ACTUAT Albuterol 0.09 MG/ACTUAT Mete red Dose Inhaler [Ventolin] Ventolin HFA 108 (90 Base) MCG/ACT Ventolin HFA 108 (90 Base) MCG/ACT 11/20/2019 12:00:00 AM EST 2.0 {puffs} active Ventolin HFA 108 (90 Base) MCG/ACT eCW1 ([facility]) 2.5 mg 11/20/2019 12:00:00 AM EST tablet 42 TAKE THREE TABLETS BY MOUTH EVERY DAY TAKE THREE TABLETS BY MOUTH EVERY DAY SOLD: 11/20/2019 [facility] 200 ACTUAT Albuterol 0.09 MG/ACTUAT Mete red Dose Inhaler [Ventolin] Ventolin HFA 108 (90 Base) MCG/ACT Ventolin HFA 108 (90 Base) MCG/ACT 11/20/2019 12:00:00 AM EST 2.0 {puffs} active Ventolin HFA 108 (90 Base) MCG/ACT eCW1 ([facility]) Ergocalciferol 58383 UNT Oral Capsule Ergocalciferol 1 .25 MG (95565 UT) Ergocalciferol 1.25 MG (15837 UT) 11/20/2019 12:00:00 AM EST active 1 capsule eCW1 ([facility]) Albuterol 0.833 MG/ML / Ipratropium Brom rafael 0.167 MG/ML Inhalant Solution Ipratropium-Albuterol 0.5-2.5 (3) MG/3ML Ipratropium-Albuterol 0.5-2.5 (3) MG/3ML 11/20/2019 12:00:00 AM EST 3.0 {ml} active Ipratropium- Albuterol 0.5-2.5 (3) MG/3ML eCW1 ([facility]) 200 ACTUAT Albuterol 0.09 MG/ACTUAT Mete red Dose Inhaler [Ventolin] Ventolin HFA 108 (90 Base) MCG/ACT Ventolin HFA 108 (90 Base) MCG/ACT 11/20/2019 12:00:00 AM EST active 2 puffs eCW1 ([facility]) 200 ACTUAT Albuterol 0.09 MG/ACTUAT Mete red Dose Inhaler [Ventolin] Ventolin HFA 108 (90 Base) MCG/ACT Ventolin HFA 108 (90 Base) MCG/ACT 11/20/2019 12:00:00 AM EST 2.0 {puffs} active Ventolin HFA 108 (90 Base) MCG/ACT eCW1 ([facility]) 200 ACTUAT Albuterol 0.09 MG/ACTUAT Mete red Dose Inhaler [Ventolin] Ventolin HFA 108 (90 Base) MCG/ACT Ventolin HFA 108 (90 Base) MCG/ACT 11/20/2019 12:00:00 AM EST 2.0 {puffs} active Ventolin HFA 108 (90 Base) MCG/ACT eCW1 ([facility]) Albuterol 0.833 MG/ML / Ipratropium Brom rafael 0.167 MG/ML Inhalant Solution Ipratropium-Albuterol 0.5-2.5 (3) MG/3ML Ipratropium-Albuterol 0.5-2.5 (3) MG/3ML 11/20/2019 12:00:00 AM EST 3.0 {ml} active Ipratropium- Albuterol 0.5-2.5 (3) MG/3ML eCW1 ([facility]) 200 ACTUAT Albuterol 0.09 MG/ACTUAT Mete red Dose Inhaler [Ventolin] Ventolin HFA 108 (90 Base) MCG/ACT Ventolin HFA 108 (90 Base) MCG/ACT 11/20/2019 12:00:00 AM EST 2.0 {puffs} active Ventolin HFA 108 (90 Base) MCG/ACT eCW1 ([facility]) Albuterol 0.833 MG/ML / Ipratropium Brom rafael 0.167 MG/ML Inhalant Solution Ipratropium-Albuterol 0.5-2.5 (3) MG/3ML Ipratropium-Albuterol 0.5-2.5 (3) MG/3ML 11/20/2019 12:00:00 AM EST active 3 ml eCW1 ([facility]) Hydralazine Hydrochloride 10 MG Oral Tablet HydrALAZIN E HCl 10 MG HydrALAZINE HCl 10 MG 11/20/2019 12:00:00 AM EST active 20 mg eCW1 ([facility]) Albuterol 0.833 MG/ML / Ipratropium Brom rafael 0.167 MG/ML Inhalant Solution Ipratropium-Albuterol 0.5-2.5 (3) MG/3ML Ipratropium-Albuterol 0.5-2.5 (3) MG/3ML 11/20/2019 12:00:00 AM EST 3.0 {ml} active Ipratropium- Albuterol 0.5-2.5 (3) MG/3ML eCW1 ([facility]) Hydralazine Hydrochloride 10 MG Oral Tablet HydrALAZIN E HCl 10 MG HydrALAZINE HCl 10 MG 11/20/2019 12:00:00 AM EST active 2 tablets eCW1 ([facility]) Albuterol 0.833 MG/ML / Ipratropium Brom rafael 0.167 MG/ML Inhalant Solution Ipratropium-Albuterol 0.5-2.5 (3) MG/3ML Ipratropium-Albuterol 0.5-2.5 (3) MG/3ML 11/20/2019 12:00:00 AM EST active 3 ml eCW1 ([facility]) Albuterol 0.833 MG/ML / Ipratropium Brom rafael 0.167 MG/ML Inhalant Solution Ipratropium-Albuterol 0.5-2.5 (3) MG/3ML Ipratropium-Albuterol 0.5-2.5 (3) MG/3ML 11/20/2019 12:00:00 AM EST 3.0 {ml} active Ipratropium- Albuterol 0.5-2.5 (3) MG/3ML eCW1 ([facility]) Amlodipine 2.5 MG Oral Tablet AmLODIPine Besylate 2.5 MG AmLODIPine Besylate 2.5 MG 11/20/2019 12:00:00 AM EST active 3 tabs eCW1 ([facility]) Hydralazine Hydrochloride 10 MG Oral Tablet HydrALAZIN E HCl 10 MG HydrALAZINE HCl 10 MG 11/20/2019 12:00:00 AM EST 2.0 {tablets} s uspended HydrALAZINE HCl 10 MG eCW1 ([facility]) Hydralazine Hydrochloride 10 MG Oral Tablet HydrALAZIN E HCl 10 MG HydrALAZINE HCl 10 MG 11/20/2019 12:00:00 AM EST active 2 tablets eCW1 ([facility]) 200 ACTUAT Albuterol 0.09 MG/ACTUAT Mete red Dose Inhaler [Ventolin] Ventolin HFA 108 (90 Base) MCG/ACT Ventolin HFA 108 (90 Base) MCG/ACT 11/20/2019 12:00:00 AM EST active 2 puffs eCW1 ([facility]) 200 ACTUAT Albuterol 0.09 MG/ACTUAT Mete red Dose Inhaler [Ventolin] Ventolin HFA 108 (90 Base) MCG/ACT Ventolin HFA 108 (90 Base) MCG/ACT 11/20/2019 12:00:00 AM EST 2.0 {puffs} active Ventolin HFA 108 (90 Base) MCG/ACT eCW1 ([facility]) Ergocalciferol 46602 UNT Oral Capsule Ergocalciferol 1 .25 MG (19113 UT) Ergocalciferol 1.25 MG (02249 UT) 11/20/2019 12:00:00 AM EST active 1 capsule eCW1 ([facility]) Hydralazine Hydrochloride 10 MG Oral Tablet HydrALAZIN E HCl 10 MG HydrALAZINE HCl 10 MG 11/20/2019 12:00:00 AM EST 2.0 {tablets} s uspended HydrALAZINE HCl 10 MG eCW1 ([facility]) Hydralazine Hydrochloride 10 MG Oral Tablet HydrALAZIN E HCl 10 MG HydrALAZINE HCl 10 MG 11/20/2019 12:00:00 AM EST 2.0 {tablets} s uspended HydrALAZINE HCl 10 MG eCW1 ([facility]) Albuterol 0.833 MG/ML / Ipratropium Brom rafael 0.167 MG/ML Inhalant Solution Ipratropium-Albuterol 0.5-2.5 (3) MG/3ML Ipratropium-Albuterol 0.5-2.5 (3) MG/3ML 11/20/2019 12:00:00 AM EST 3.0 {ml} active Ipratropium- Albuterol 0.5-2.5 (3) MG/3ML eCW1 ([facility]) 200 ACTUAT Albuterol 0.09 MG/ACTUAT Mete red Dose Inhaler [Ventolin] Ventolin HFA 108 (90 Base) MCG/ACT Ventolin HFA 108 (90 Base) MCG/ACT 11/20/2019 12:00:00 AM EST 2.0 {puffs} active Ventolin HFA 108 (90 Base) MCG/ACT eCW1 ([facility]) Hydralazine Hydrochloride 10 MG Oral Tablet HydrALAZIN E HCl 10 MG HydrALAZINE HCl 10 MG 11/20/2019 12:00:00 AM EST 2.0 {tablets} s uspended HydrALAZINE HCl 10 MG eCW1 ([facility]) Albuterol 0.833 MG/ML / Ipratropium Brom rafael 0.167 MG/ML Inhalant Solution Ipratropium-Albuterol 0.5-2.5 (3) MG/3ML Ipratropium-Albuterol 0.5-2.5 (3) MG/3ML 11/20/2019 12:00:00 AM EST 3.0 {ml} active Ipratropium- Albuterol 0.5-2.5 (3) MG/3ML eCW1 ([facility]) 200 ACTUAT Albuterol 0.09 MG/ACTUAT Mete red Dose Inhaler [Ventolin] Ventolin HFA 108 (90 Base) MCG/ACT Ventolin HFA 108 (90 Base) MCG/ACT 11/20/2019 12:00:00 AM EST 2.0 {puffs} active Ventolin HFA 108 (90 Base) MCG/ACT eCW1 ([facility]) Albuterol 0.833 MG/ML / Ipratropium Brom rafael 0.167 MG/ML Inhalant Solution Ipratropium-Albuterol 0.5-2.5 (3) MG/3ML Ipratropium-Albuterol 0.5-2.5 (3) MG/3ML 11/20/2019 12:00:00 AM EST 3.0 {ml} active Ipratropium- Albuterol 0.5-2.5 (3) MG/3ML eCW1 ([facility]) Hydralazine Hydrochloride 10 MG Oral Tablet HydrALAZIN E HCl 10 MG HydrALAZINE HCl 10 MG 11/20/2019 12:00:00 AM EST 2.0 {tablets} s uspended HydrALAZINE HCl 10 MG eCW1 ([facility]) Albuterol 0.833 MG/ML / Ipratropium Brom rafael 0.167 MG/ML Inhalant Solution Ipratropium-Albuterol 0.5-2.5 (3) MG/3ML Ipratropium-Albuterol 0.5-2.5 (3) MG/3ML 11/20/2019 12:00:00 AM EST 3.0 {ml} active Ipratropium- Albuterol 0.5-2.5 (3) MG/3ML eCW1 ([facility]) 200 ACTUAT Albuterol 0.09 MG/ACTUAT Mete red Dose Inhaler [Ventolin] Ventolin HFA 108 (90 Base) MCG/ACT Ventolin HFA 108 (90 Base) MCG/ACT 11/20/2019 12:00:00 AM EST active 2 puffs eCW1 ([facility]) Albuterol 0.833 MG/ML / Ipratropium Brom rafael 0.167 MG/ML Inhalant Solution Ipratropium-Albuterol 0.5-2.5 (3) MG/3ML Ipratropium-Albuterol 0.5-2.5 (3) MG/3ML 11/20/2019 12:00:00 AM EST 3.0 {ml} active Ipratropium- Albuterol 0.5-2.5 (3) MG/3ML eCW1 ([facility]) Acetaminophen 325 MG / Oxycodone Hydroch loride 5 MG Oral Tablet Oxycodone- Acetaminophen 5-325 MG Oxycodone-Acetaminophen 5-325 MG 11/20/2019 12:00:00 A M EST active 1 tab eCW1 ([facility]) Albuterol 0.833 MG/ML / Ipratropium Brom rafael 0.167 MG/ML Inhalant Solution Ipratropium-Albuterol 0.5-2.5 (3) MG/3ML Ipratropium-Albuterol 0.5-2.5 (3) MG/3ML 11/20/2019 12:00:00 AM EST 3.0 {ml} active Ipratropium- Albuterol 0.5-2.5 (3) MG/3ML eCW1 ([facility]) Hydralazine Hydrochloride 10 MG Oral Tablet HydrALAZIN E HCl 10 MG HydrALAZINE HCl 10 MG 11/20/2019 12:00:00 AM EST 2.0 {tablets} s uspended HydrALAZINE HCl 10 MG eCW1 ([facility]) Amlodipine 2.5 MG Oral Tablet AmLODIPine Besylate 2.5 MG AmLODIPine Besylate 2.5 MG 11/20/2019 12:00:00 AM EST active 3 tabs eCW1 ([facility]) 200 ACTUAT Albuterol 0.09 MG/ACTUAT Mete red Dose Inhaler [Ventolin] Ventolin HFA 108 (90 Base) MCG/ACT Ventolin HFA 108 (90 Base) MCG/ACT 11/20/2019 12:00:00 AM EST 2.0 {puffs} active Ventolin HFA 108 (90 Base) MCG/ACT eCW1 ([facility]) 200 ACTUAT Albuterol 0.09 MG/ACTUAT Mete red Dose Inhaler [Ventolin] Ventolin HFA 108 (90 Base) MCG/ACT Ventolin HFA 108 (90 Base) MCG/ACT 11/20/2019 12:00:00 AM EST 2.0 {puffs} active Ventolin HFA 108 (90 Base) MCG/ACT eCW1 ([facility]) Albuterol 0.833 MG/ML / Ipratropium Brom rafael 0.167 MG/ML Inhalant Solution Ipratropium-Albuterol 0.5-2.5 (3) MG/3ML Ipratropium-Albuterol 0.5-2.5 (3) MG/3ML 11/20/2019 12:00:00 AM EST 3.0 {ml} active Ipratropium- Albuterol 0.5-2.5 (3) MG/3ML eCW1 ([facility]) Albuterol 0.833 MG/ML / Ipratropium Brom rafael 0.167 MG/ML Inhalant Solution Ipratropium-Albuterol 0.5-2.5 (3) MG/3ML Ipratropium-Albuterol 0.5-2.5 (3) MG/3ML 11/20/2019 12:00:00 AM EST 3.0 {ml} active Ipratropium- Albuterol 0.5-2.5 (3) MG/3ML eCW1 ([facility]) 200 ACTUAT Albuterol 0.09 MG/ACTUAT Mete red Dose Inhaler [Ventolin] Ventolin HFA 108 (90 Base) MCG/ACT Ventolin HFA 108 (90 Base) MCG/ACT 11/20/2019 12:00:00 AM EST 2.0 {puffs} active Ventolin HFA 108 (90 Base) MCG/ACT eCW1 ([facility]) Hydralazine Hydrochloride 10 MG Oral Tablet HydrALAZIN E HCl 10 MG HydrALAZINE HCl 10 MG 11/20/2019 12:00:00 AM EST 2.0 {tablets} s uspended HydrALAZINE HCl 10 MG eCW1 ([facility]) Amlodipine 2.5 MG Oral Tablet AmLODIPine Besylate 2.5 MG AmLODIPine Besylate 2.5 MG 11/20/2019 12:00:00 AM EST active 3 tabs eCW1 ([facility]) Albuterol 0.833 MG/ML / Ipratropium Brom rafael 0.167 MG/ML Inhalant Solution Ipratropium-Albuterol 0.5-2.5 (3) MG/3ML Ipratropium-Albuterol 0.5-2.5 (3) MG/3ML 11/20/2019 12:00:00 AM EST 3.0 {ml} active Ipratropium- Albuterol 0.5-2.5 (3) MG/3ML eCW1 ([facility]) Hydralazine Hydrochloride 10 MG Oral Tablet HydrALAZIN E HCl 10 MG HydrALAZINE HCl 10 MG 11/20/2019 12:00:00 AM EST 2.0 {tablets} a ctive HydrALAZINE HCl 10 MG eCW1 ([facility]) Albuterol 0.833 MG/ML / Ipratropium Brom rafael 0.167 MG/ML Inhalant Solution Ipratropium-Albuterol 0.5-2.5 (3) MG/3ML Ipratropium-Albuterol 0.5-2.5 (3) MG/3ML 11/20/2019 12:00:00 AM EST 3.0 {ml} active Ipratropium- Albuterol 0.5-2.5 (3) MG/3ML eCW1 ([facility]) Ergocalciferol 39120 UNT Oral Capsule Ergocalciferol 1 .25 MG (22033 UT) Ergocalciferol 1.25 MG (73736 UT) 11/20/2019 12:00:00 AM EST suspended 1 capsule eCW1 ([facility]) Hydralazine Hydrochloride 10 MG Oral Tablet [...] s uspended HydrALAZINE HCl 10 MG eCW1 ([facility]) Hydralazine Hydrochloride 10 MG Oral Tablet HydrALAZIN E HCl 10 MG HydrALAZINE HCl 10 MG 11/20/2019 12:00:00 AM EST 2.0 {tablets} s uspended HydrALAZINE HCl 10 MG eCW1 ([facility]) Albuterol 0.833 MG/ML / Ipratropium Brom rafael 0.167 MG/ML Inhalant Solution Ipratropium-Albuterol 0.5-2.5 (3) MG/3ML Ipratropium-Albuterol 0.5-2.5 (3) MG/3ML 11/20/2019 12:00:00 AM EST active 3 ml eCW1 ([facility]) 200 ACTUAT Albuterol 0.09 MG/ACTUAT Mete red Dose Inhaler [Ventolin] Ventolin HFA 108 (90 Base) MCG/ACT Ventolin HFA 108 (90 Base) MCG/ACT 11/20/2019 12:00:00 AM EST 2.0 {puffs} active Ventolin HFA 108 (90 Base) MCG/ACT eCW1 ([facility]) Hydralazine Hydrochloride 10 MG Oral Tablet HydrALAZIN E HCl 10 MG HydrALAZINE HCl 10 MG 11/20/2019 12:00:00 AM EST 2.0 {tablets} s uspended HydrALAZINE HCl 10 MG eCW1 ([facility]) 200 ACTUAT Albuterol 0.09 MG/ACTUAT Mete red Dose Inhaler [Ventolin] Ventolin HFA 108 (90 Base) MCG/ACT Ventolin HFA 108 (90 Base) MCG/ACT 11/20/2019 12:00:00 AM EST 2.0 {puffs} active Ventolin HFA 108 (90 Base) MCG/ACT eCW1 ([facility]) Compressor Nebulizer 11/05/2019 12:00:00 AM EST active MEDENT ([facility]) Nebulizer Kit/Tubing/Mouthpiece 11/05/2019 12:00:00 AM EST active [facility] ([facility]) 100 unit/mL (3 [...] 10/22/2019 12:00:00 AM EST ORAL active [facility] ([facility]) Acetaminophen 325 MG / Oxycodone Hydrochloride 5 MG Or al Tablet Oxycodone-Acetaminophen 10/22/2019 12:00:00 AM EST ORAL active [facility] ([facility]) Albuterol 0.833 MG/ML / Ipratropium Hobbs 0.167 MG/M L Inhalant Solution Ipratropium Hobbs/Albuterol Sulfate 10/22/2019 12:00:00 AM EST active [facility] ([facility]) Acetaminophen 500 MG Oral Tablet Acetaminophen Extra Strengt h 10/22/2019 12:00:00 AM EST ORAL active M EDENT ([facility]) 5-325 mg 10/18/2019 12:00:00 AM EST tablet [...] 10/08 12:00:00 AM EST ORAL completed [facility] ([facility], ) Prednisone 20 MG Oral Tablet Prednisone 10/08/2019 12:00:00 AM EST ORAL completed [facility] ([facility], ) 20 mg 10/08/2019 12:00:00 AM EST tablet 5 TAKE ONE TABLET BY MOUTH EVERY DAY FOR 5 DAYS TAKE ONE TABLET BY MOUTH EVERY DAY FOR 5 DAYS SOLD: 10/08/2019 [facility] Albuterol 0.833 MG/ML / Ipratropium Hobbs 0.167 MG/M L Inhalant Solution Ipratropium Hobbs/Albuterol Sulfate 10/08/2019 12:00:00 AM EST active MEDENT ([facility], ) 31 gauge x 1/4" 10/01/2019 12:00:00 [...] ORAL completed [facility] ([facility]) Amlodipine 5 MG Oral Tablet Amlodipine Besylate 06/16/2019 12:00:00 A M EDT ORAL completed [facility] ([facility] 25 mg 05/16/2019 12:00:00 AM [...] type / Coverage type Policy ID Covered alliance party ID Covered alliance party's relationship to patel Policy Patel Plan Information AETNA MEDICARE [id number] SP [id number] MEDICARE COMPLETE [id number] SP [id number] SELF PAY ONLY SP SELF PAY ONLY - [id number] SP AETNA MEDICARE O [id number] S [id number] 60M AETNA MEDICARE [id number] SP [id number] 60M AETNA MEDICARE [id number] SP [id number] 60M AETNA [id number] Britta [id number] MEDICARE C [id number] S [id number] MEDICARE [id number] SP [id number] AETNA MEDICARE COMPLETE G [id number] Self [id number] MEDICARE JADA [id number] S [id number] [id number] AETNA HEA [id number] S [id number] [facility] MEDICARE COMPLETE G [id number] Self [id number] MEDICARE JADA [id number] A [employer] Medicare F [id number] SELF [id number] 60M AETNA MEDICARE [id number] SP [id number] WELLCARE [id number] SP [id number] WELLCARE O [id number] S [id number] WELLCARE [id number] SP [id number] Wellcare [employer] F [id number] SELF [id number] WELLCARE O [id number] O [id number] WELLCARE HEALTH PLANS [id number] S [id number] MEDICARE [id number] A ANSI-Health Maintenance Organization ( O) [id number] ANSI-Medicare Part B [id number] ANSI-Medicare Part B [id number] ANSI-Health Maintenance Organization (HM O) [id number] ANSI-Health Maintenance Organization (HM O) [id number] ANSI-Medicare Part B 8gq4x0v5-mi6o-4084-2z5z-s0cy781c4x96 6ji9s0i8-ef1j-2940-3b5s-r0sf357q8i28 ANSI-Medicare Part B 3309li61-4308-3l1u-136s-12425w1hb5b7 1832rt83-6380-1u5k-280c-69295g4cd7q2 [facility] ( O) ox631n42-7wnn-2842-5f66-160l0a7ybt61 sn049f88-9eqq-3202-2a74-988r2v6gqu87 [facility] ( O) wm5bp43f-97m1-2f2k-39f3-883245bo947q qv5ce75o-94b2-7e8e-24d4-200496ia184t ANSI-Medicare Part B [id number]-y149-[id number] d68l5192-0200-8323-i550-ha0235x5395j ANSI-Medicare Part B 3sh9ue29-0345-24eu-e618-22985l19evf7 3hi6wb94-4534-32jr-y999-11253p91tgq0 [facility] ( O) 6og86015-6is5-1b66-z8zg-9i1611v43v39 8fl40477-1sn0-7x04-s1ew-5n9725u86c65 ANSI-Medicare Part B [id number]-8404-9567-[id number] 3b35cz1q-1482-6871-cry9-57n4p9277934 [facility] ( O) hc011mhj-8086-09g1-9a8e-724hp82q1nq8 bb270ujr-1777-59x2-6a5u-704fb04i3ii5 ANSI-Medicare Part B 5vy9p38p-459m-9162-y5t4-d7q104wrm439 9kb6p96a-375l-3093-t1a1-b5y678jvi422 [facility] ( O) d8djcv88-t616-0u7o-y73n-983365pk5kmb a2kswq07-u436-3r8k-k74c-523118pi7ypn [facility] ( O) g409u582-9k9l-7u42-7k52-49m8oe5vl505 v766z641-7x9i-6z56-2u78-78l5ee2rq972 ANSI-Medicare Part B [id number]-025d-97f9-1j82g2g0up7m qv577755-959q-400d-01n7-0o66i1y7ga5s [facility] [id number] S [id number] ANSI-Medicare Part B 5c2oti4h-sv3q-8n78-76b5-7t477x5076aq 5i9yjm1b-hf2n-4s25-14t6-0f870x9224xn [facility] Maintenance [facility] ( O) 0004w228-9g3m-3697-j6an-[id number] 9179l486-8j5q-0902-l0yn-6zd643207070 [facility] ( O) 392o2x7v-u9rp-5m5y-v6h7-e481s21k30wf 278p0l8y-y5gb-6n3z-g6a4-x635y76g33tt ANSI-Medicare Part B [id number]-[id number] w37yl841-lnj7-6987-39g3-7153m812q037 [employer] [id number] [place] [id number] [facility] Maintenance [facility] ( O) cc8949x7-x1e5-0809-o899-0377qcp112q2 bq3946s2-e5f6-2531-l435-5019jux726i3 ANSI-Medicare Part B 9mql28z9-705v-6315-206t-h582z28nv353 2kgh62c3-883r-7117-825p-a469r24wc072 [facility] ( O) 946fyho4-rp7r-8652-b34x-uc65w8z23117 794gcjf6-uo1e-4957-x74t-qy49r4d93962 ANSI-Medicare Part B knb9qe72-1mr8-81j9-3o4f-vl88686rs52x nkf3fr37-8ww1-60f6-2o8m-nu72241zh22t [employer] MCR - To Ppo Commercial [id number] Self [id number] [facility] Commercial [id number] Self [id number] [employer] MCR - To Ppo Commercial [id number] [facility] [id number] [facility] [id number] Self [id number] ANSI-Medicare Part B [id number]-omes-821672ra9v8a [id number]-c323-5f86-xjnx-657597ui7f6u ANSI-[facility] Maintenance [facility] ( O) 7mj3nqq7-[id number] 1lh6ikr1-a4b8-8y49-9o12-2394p600i437 [facility] [place] [id number] 18 [id number] [facility] Part B [id number] Self [id number] [employer] [id number] Self [id number] ANSI-Medicare Part B [id number]-021e-se3v-63pk8irx4t7j rnt30033-4u5m-212m-uf0z-70fg4zcp2n6a [facility] (HM O) 89vd8q16-92uc-33l8-e36m-y5ys72uec48e 98uf2i07-46do-39w3-s26x-i4dh02jnc52q ANSI-Medicare Part B [id number]-5k83-iucg-fv73far90kg4 jz4wl328-5s6g-4t36-cvjh-fa25xkx37ot3 [facility] Maintenance [facility] (HM O) 9z3d6015-861u-4549-t468-1t1441js080v 6c1d5199-684l-5089-v279-0i3450mj655g [employer] F [id number] SELF [id number] [employer](To) Commercial [id number] Self [id number] ANSI-Health Maintenance Organization ( O) [id number] ANSI-Medicare Part B [id number] ANSI-Health Maintenance Organization ( O) [id number] ANSI-Medicare Part B [id number] [facility] ( O) [id number] ANSI-Medicare Part B [id number] [employer] F [id number] SELF [id number] ANSI-Medicare Part B [id number] MEDICARE COMPLETE [id number] SP [id number] ANSI-Medicare Part B [id number] [facility] [id number] Medic are Part B [id number] ANSI-Medicare Part B [id number] ANSI-Medicare Part B [id number] ANSI-Medicare Part B [id number] ANSI-Medicare Part B [id number] ANSI-Medicare Part B [id number] ANSI-Medicare Part B [id number] ANSI-Medicare Part B [id number] ANSI-Medicare Part B [id number] ANSI-Medicare Part B [id number] [employer] [id number] SELF [id number] ANSI-Medicare Part B [id number] [facility]/Medicare Solu Commercial [id number] Self [id number] ANSI-Medicare Part B [id number] ANSI-Medicare Part B [id number] ANSI-Medicare Part B [id number] MEDICARE COMPLETE-[facility] [id number] S [id number] ANSI-Medicare Part B [id number] ANSI-Medicare Part B [id number] ANSI-Medicare Part B [id number] ANSI-Medicare Part B [id number] ANSI-Medicare Part B [id number] ANSI-Medicare Part B [id number] ANSI-Medicare Part B [id number] ANSI-Medicare Part B [id number] ANSI-Medicare Part B [id number] ANSI-Medicare Part B [id number] [facility]-Medicare Solutions Commercial [id number] Self [id number] [facility] Medicare Commercial [id number] Self [id number] MEDICARE COMPLETE [id number] SP [id number] [facility]-Medicare Solutions Commercial [id number] Self [id number] [employer] HEA [id number] S [id number] MEDICARE COMPLETE [id number] SP [id number] [facility] Commercial [id number] Self [id number] [facility] Medicare Solutions F [id number] SELF [id number] MEDICARE COMPLETE [id number] SP [id number] MEDICARE COMPLETE [id number] SP [id number] [facility] [place] [id number] 18 [id number] [employer] HEA [id number] S [id number] MEDICARE COMPLETE-[facility] O [id number] S [id number] HEA [id number] UNAVAILABLE UNAVAILA BLE [facility]-Medicare Solutions Commercial [id number] Self [id number] [facility]-Medicare Solutions Commercial [id number] Self [id number] [facility]-Medicare [employer] Commercial [id number] Self [id number] [facility]-[employer] Commercial [id number] Self [id number] [facility]-[employer] Commercial [id number] Self [id number] [facility]-[employer] Commercial [id number] Self [id number] [facility] Medicare Solutions F [id number] SELF [id number] MEDICARE COMPLETE [id number] SP [id number] [facility] ([facility]) Commercial Self MEDICARE COMPLETE [id number] SP [id number] [facility] Medicare F [id number] SELF [id number] [facility] Medicare F [id number] SELF [id number] Medicare C [id number] SELF [id number] [facility] [id number] 18 [id number] [employer] MEDICARE-O/P [id number] 18 [id number] [employer] MED[facility] [id number] 18 [id number] Problems, Conditions, and Diagnoses Code Display Name Description Problem Type Effective Dates Data Source(s) K21.9 235104997 Gastroesophageal ref lux disease, unspecified whether esophagitis present Problem 10/13/2020 12:00:00 AM EST eCW1 ([facility]) [id number] Paresthesia Paresthesia Problem 09/09/2020 12:00:00 AM EST MEDENT ([facility], ) [id number] Tremor Tremor Problem 09/09/2020 12:00:00 AM ES T [facility] ([facility], ) G89.29 [id number] Other chronic pain Problem 07/22/2020 12:00: 00 AM EDT eCW1 ([facility]) F41.9 [id number] Anxiety Problem 07/22/2020 12:00:00 AM ED T eCW1 ([facility]) E04.1 [id number] Thyroid nodule Problem 07/22/2020 12:00:00 A M EDT eCW1 ([facility]) E55.9 [id number] Vitamin D deficiency Problem 01/21/2020 12:0 0:00 AM EDT eCW1 ([facility]) E55.9 97638008 Vitamin D deficiency Problem 01/21/2020 12:0 0:00 AM EDT eCW1 ([facility]) E78.2 [id number] Mixed hyperlipidemia Problem 12/02/2019 12:0 0:00 AM EST eCW1 ([facility]) E78.2 [id number] Mixed hyperlipidemia Problem 12/02/2019 12:0 0:00 AM EST eCW1 ([facility]) I10 Essential (primary) hypertension Essential (primary) h ypertension Diagnosis 08/13/2020 04:05:29 PM EST [facility] E78.2 Mixed hyperlipidemia Mixed hyperlipidemia Diagnosis 08/13/2020 04:05:29 PM EST [facility] 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 Diagnosis 07/05/2020 12:57:00 PM EDT [facility] Surgeries/Procedures Procedure Description Date Indications Data Source(s) TSTG ANS FUNCJ CARDIOVAGAL INNERVAJ PARASYMP 1 12:00:00 AM EST [facility] ([facility], ) TSTG ANS FUNCJ CARDIOVAGAL INNERVAJ PARASYMP 1 12:00:00 AM EST [facility] ([facility], ) TESTING AUTONOMIC NERVOUS SYSTEM FUNCTION 10/29/2020 1 2:00:00 AM EST [facility] ([facility], ) TESTING AUTONOMIC NERVOUS SYSTEM FUNCTION 10/29/2020 1 2:00:00 AM EST [facility] ([facility], ) MRI BRAIN BRAIN STEM W/O CONTRAST MATERIAL 10/19/2020 12:00:00 AM EST [facility] ([facility], ) MRI BRAIN BRAIN STEM W/O CONTRAST MATERIAL 10/19/2020 12:00:00 AM EST [facility] ([facility], ) MRI SPINAL CANAL CERVICAL W/O CONTRAST MATRL 1 12:00:00 AM EST [facility] ([facility], ) MRI SPINAL CANAL CERVICAL W/O CONTRAST MATRL 1 12:00:00 AM EST [facility] ([facility]) Office Visit, Est Pt., Level 4 PC 01/21/2020 12:00:00 AM EDT eCW1 ([facility]) Office Visit, Est Pt., Level 2 FC 01/21/2020 12:00:00 AM EDT eCW1 ([facility]) Transitional Care NO CHARGE Visit 11/21/2019 12:00:00 AM EST eCW1 ([facility]) Spirometry 10/08/2019 12:00:00 AM EST M EDENT ([facility], ) Airway Inhalation Treatment 10/08/2019 12:00:00 AM EST [facility] ([facility], ) Results ID Date Data Source LIPID PANEL (CARDIAC RISK) 11/04/2020 12:00:00 AM EST eCW1 ( [facility]) Name Value Range Interpretation Code Description Data Naa rce(s) Supporting Document(s) Cholesterol in HDL [Moles/volume] in Serum or Plasma 41 >40 HDL CHOLESTEROL eCW1 ([facility]) Triglyceride [Mass/volume] in Serum or Plasma by calculation 306 <150 TRIGLYCERIDES LEVEL eCW1 ([facility]) Cholesterol [Moles/volume] in Serum or Plasma 196 <200 CHOLESTEROL LEVEL eCW1 ([facility]) Cholesterol in LDL [Mass/volume] in Serum or Plasma by calculation 94 <100 LDL CHOLESTEROL [facility] ([facility]) 4.780 <5 CHOLESTEROL RISK RATIO eCW1 ([facility]) 155 NON-HDL-C eCW1 ([facility]) ID Date Data Source [id number] 11/04/2020 12:00:00 AM EST eCW1 ([facility]) Name Value Range Interpretation Code Description Data Naa rce(s) Supporting Document(s) Hemoglobin A1c/Hemoglobin.total in Blood 10.1 HEMOGLOBIN A1c W1 ([facility]) ID Date Data Source [id number] 09/21/2020 12:05:00 PM EST [facility] Name Value Range Interpretation Code Description Data Naa rce(s) Supporting Document(s) SARS coronavirus 2 RNA [facility] This lab was ordered by [facility] and reported by [facility]. ID Date Data Source [id number] 09/09/2020 09:07:00 AM EST [facility], ) Name Value Range Interpretation Code Description Data Naa rce(s) Supporting Document(s) Thyrotropin [Units/volume] in Serum or Plasma 2.310 uIU/mL 0.450-4.50 0 [facility] ([facility], ) A courtesy copy of this report has been sent to [phone], the patient Test(s) 737408-Qbnyvep E(Alpha Tocopherol); 150960- Vitamin E(Gamma Tocopherol); 198769-Tipxmyy B6; 820425- Vit. B1, Whole Blood was developed and its performance characteristics determined by [facility]. It has not been cleared or approved by the Food and Drug Administration. Thyroxine (T4) free [Mass/volume] in Serum or Plasma 1.15 ng/dL 0.82- 1.77 [facility] ([facility], ) A courtesy copy of this report has been sent to [phone], the patient Test(s) 900307-Blcdkib E(Alpha Tocopherol); 510391- Vitamin E(Gamma Tocopherol); 841801-Czlveos B6; 187189- Vit. B1, Whole Blood was developed and its performance characteristics determined by [facility]. It has not been cleared or approved by the Food and Drug Administration. Pyridoxine [Mass/volume] in Serum or Plasma 5.3 ug/L 2.0-32.8 [facility] ([facility], ) A courtesy copy of this report has been sent to [phone], the patient Test(s) 675226-Fptwuxp E(Alpha Tocopherol); 476743- Vitamin E(Gamma Tocopherol); 638392-Degoylk B6; 193163- Vit. B1, Whole Blood was developed and its performance characteristics determined by [facility]. It has not been cleared or approved by the Food and Drug Administration. Thiamine [Mass/volume] in Blood 138.3 nmol/L 66.5-200.0 [facility] ([facility], ) A courtesy copy of this report has been sent to [phone], the patient Test(s) 863811-Nnmryyh E(Alpha Tocopherol); 365707- Vitamin E(Gamma Tocopherol); 290683-Shyyzlc B6; 925772- Vit. B1, Whole Blood was developed and its performance characteristics determined by [facility]. It has not been cleared or approved by the Food and Drug Administration. Laboratory test finding (navigational concept) Laboratory test result [facility] ([facility]) A courtesy copy of this report has been sent to [phone], the patient Test(s) 124416-Uelaklp E(Alpha Tocopherol); 171768- Vitamin E(Gamma Tocopherol); 069857-Xtdrrgr B6; 291703- Vit. B1, Whole Blood was developed and its performance characteristics determined by [facility]. It has not been cleared or approved by the Food and Drug Administration. ID Date Data Source [id number] 09/09/2020 09:07:00 AM EST [facility] ([facility]) Name Value Range Interpretation Code Description Data Naa rce(s) Supporting Document(s) Alpha tocopherol [Mass/volume] in Serum or Plasma 11.0 mg/L 9.0-29.0 [facility] ([facility]) A courtesy copy of this report has been sent to [phone], the patient Test(s) 143538-Npalaqr E(Alpha Tocopherol); 945330- Vitamin E(Gamma Tocopherol); 191325-Yxszxqk B6; 620651- Vit. B1, Whole Blood was developed and its performance characteristics determined by [facility]. It has not been cleared or approved by the Food and Drug Administration. Vitamin E(Gamma Tocopherol) 1.7 mg/L 0.5-4.9 [facility] ([facility]) A courtesy copy of this report has been sent to [phone], the patient Test(s) 999307-Aculamu E(Alpha Tocopherol); 491929- Vitamin E(Gamma Tocopherol); 118741-Dqdrjsy B6; 819415- Vit. B1, Whole Blood was developed and its performance characteristics determined by [facility]. It has not been cleared or approved by the Food and Drug Administration. ID Date Data Source [id number] 09/09/2020 09:07:00 AM EST [facility] ([facility]) Name Value Range Interpretation Code Description Data Naa rce(s) Supporting Document(s) Folate (Folic Acid), Serum 10.6 ng/mL [facility] ([facility]) A courtesy copy of this report has been sent to [phone], the patient Test(s) 573239-Hydxxqa E(Alpha Tocopherol); 871210- Vitamin E(Gamma Tocopherol); 318493-Ojgquqw B6; 770361- Vit. B1, Whole Blood was developed and its performance characteristics determined by [facility] It has not been cleared or approved by the Food and Drug Administration. Cobalamin (Vitamin B12) [Mass/volume] in Serum or Plasma 619 pg/mL 2 32-1245 [facility] ([facility], ) A courtesy copy of this report has been sent to [phone], the patient Test(s) 851568-Bhhjmla E(Alpha Tocopherol); 629546- Vitamin E(Gamma Tocopherol); 709060-Mnfmxtl B6; 660715- Vit. B1, Whole Blood was developed and its performance characteristics determined by [facility] It has not been cleared or approved by the Food and Drug Administration. ID Date Data Source [id number] 09/09/2020 09:07:00 AM EST [facility] ([facility], ) Name Value Range Interpretation Code Description Data Naa rce(s) Supporting Document(s) Triiodothyronine resin uptake (T3RU) in Serum or Plasma 25 % 24 -39 [facility] ([facility], ) A courtesy copy of this report has been sent to [phone], the patient Test(s) 818991-Bygciao E(Alpha Tocopherol); 334425- Vitamin E(Gamma Tocopherol); 737491-Hxvwihj B6; 511880- Vit. B1, Whole Blood was developed and its performance characteristics determined by [facility] It has not been cleared or approved by the Food and Drug Administration. Thyroxine (T4) free index in Serum or Plasma by calculation 1.9 1.2-4.9 [facility] ([facility]) A courtesy copy of this report has been sent to [phone], the patient Test(s) 718384-Lzzysco E(Alpha Tocopherol); 560966- Vitamin E(Gamma Tocopherol); 012302-Zsqbdsc B6; 791051- Vit. B1, Whole Blood was developed and its performance characteristics determined by [facility]. It has not been cleared or approved by the Food and Drug Administration. Thyroxine (T4) [Mass/volume] in Serum or Plasma 7.7 ug/dL 4.5-12.0 [facility] ([facility], ) A courtesy copy of this report has been sent to [phone], the patient Test(s) 075265-Dqxffdx E(Alpha Tocopherol); 392931- Vitamin E(Gamma Tocopherol); 320332-Lljnudw B6; 472821- Vit. B1, Whole Blood was developed and its performance characteristics determined by [facility]. It has not been cleared or approved by the Food and Drug Administration. ID Date Data Source [id number] 07/12/2020 05:59:47 PM EDT [facility] Name Value Range Interpretation Code Description Data Naa rce(s) Supporting Document(s) POC GLUCOSE 136 mg/dL (70-99) H [facility] PERFORMED BY CLINICAL STAFF ID Date Data Source [id number] 07/12/2020 12:47:02 PM EDT [facility] Name Value Range Interpretation Code Description Data Naa rce(s) Supporting Document(s) POC GLUCOSE 143 mg/dL (70-99) H [facility] PERFORMED BY CLINICAL STAFF ID Date Data Source [id number] 07/12/2020 08:11:35 AM EDT [facility] Name Value Range Interpretation Code Description Data Naa rce(s) Supporting Document(s) POC GLUCOSE 86 mg/dL (70-99) [facility] NOTIFIED NURSEPERFORMED BY CLINICAL S TAFF ID Date Data Source [id number] 07/12/2020 07:44:11 AM EDT [facility] Name Value Range Interpretation Code Description Data Naa rce(s) Supporting Document(s) VANCOMYCIN RANDOM 14.6 ug/mL [facility] THERAPEUTIC RANGE IS ONLY AVAILABLE FOR PEAK AND TROUGH SPECIMENS. RANDOM LEVEL RESULTS MUST BE INTERPRETED BY THE PHYSICIAN. ID Date Data Source [id number] 07/12/2020 07:44:11 AM EDT [facility] Name Value Range Interpretation Code Description Data Naa rce(s) Supporting Document(s) SODIUM 147 mmol/L (136-145) H [facility] POTASSIUM 4.7 mmol/L (3.6-5.2) [facility] CHLORIDE 118 mmol/L (100-108) H [facility] CO2 20 mmol/L (22-31) L [facility] ANION GAP 9 mmol/L (7-16) [facility] UREA NITROGEN 46 mg/dL (7-24) [facility] CREATININE 1.84 mg/dL (0.60-1.00) H [facility] BUN/CREAT RATIO 25.0 RATIO (10.0-20.0) H [facility] GLUCOSE 82 mg/dL (70-99) [facility] CALCIUM 8.0 mg/dL (8.4-10.2) L [facility] GFR 28 ml/min/1.73m2 (>59) L [facility] GFR ( AMER) 33 ml/min/1.73m2 (>59) L [facility] GFR INTERPRETATION [facility] --NORMAL KIDNEY FUNCTION OR MILD DISEASE - GFR >OR= 60CHRONIC KIDNEY DISEASE - GFR 15 - 59RENAL FAILURE - GFR <15 Est. GFR calculation based on the MDRDstudy equation, which assumes a steadystate for creatinine. Est. GFR should notbe used for medication dosing. ID Date Data Source [id number] 07/12/2020 07:33:53 AM EDT [facility] Name Value Range Interpretation Code Description Data Naa rce(s) Supporting Document(s) WBC 8.8 10*3/uL (4.1-11.0) [facility] RBC 2.89 10*6/uL (4.00-5.40) L [facility] HGB 7.7 g/dL (12.0-16.0) L [facility] HCT 24.6 % (36.0-47.0) L [facility] MCV 85.1 fL (80.0-95.0) [facility] MCH 26.7 pg (27.0-32.0) L [facility] MCHC 31.4 g/dL (32.0-36.0) L [facility] RDW 14.9 % (10.5-14.5) H [facility] PLT 252 10*3/uL (150-450) [facility] MPV 9.2 fL (7.1-10.7) [facility] ID Date Data Source [id number] 07/11/2020 09:28:10 PM EDT [facility] Name Value Range Interpretation Code Description Data Naa rce(s) Supporting Document(s) POC GLUCOSE 155 mg/dL (70-99) H [facility] PERFORMED BY CLINICAL STAFF ID Date Data Source [id number] 07/11/2020 06:28:01 PM EDT [facility] Name Value Range Interpretation Code Description Data Naa rce(s) Supporting Document(s) POC GLUCOSE 201 mg/dL (70-99) H [facility] PERFORMED BY CLINICAL STAFF ID Date Data Source [id number] 07/11/2020 01:23:48 PM EDT [facility] Name Value Range Interpretation Code Description Data Naa rce(s) Supporting Document(s) POC GLUCOSE 131 mg/dL (70-99) H [facility] PERFORMED BY CLINICAL STAFF ID Date Data Source [id number] 07/11/2020 08:42:29 AM EDT [facility] Name Value Range Interpretation Code Description Data Naa rce(s) Supporting Document(s) POC GLUCOSE 132 mg/dL (70-99) H [facility] NOTIFIED NURSEPERFORMED BY CLINICAL S TAFF ID Date Data Source [id number] 07/11/2020 06:58:21 AM EDT [facility] Name Value Range Interpretation Code Description Data Naa rce(s) Supporting Document(s) SODIUM 146 mmol/L (136-145) H [facility] POTASSIUM 4.9 mmol/L (3.6-5.2) [facility] CHLORIDE 118 mmol/L (100-108) H [facility] CO2 21 mmol/L (22-31) L [facility] ANION GAP 7 mmol/L (7-16) [facility] UREA NITROGEN 50 mg/dL (7-24) H [facility] CREATININE 2.07 mg/dL (0.60-1.00) H [facility] BUN/CREAT RATIO 24.2 RATIO (10.0-20.0) H [facility] GLUCOSE 146 mg/dL (70-99) H [facility] CALCIUM 7.8 mg/dL (8.4-10.2) L [facility] GFR 24 ml/min/1.73m2 (>59) L [facility] GFR ( AMER) 29 ml/min/1.73m2 (>59) L [facility] GFR INTERPRETATION [facility] --NORMAL KIDNEY FUNCTION OR MILD DISEASE - GFR >OR= 60CHRONIC KIDNEY DISEASE - GFR 15 - 59RENAL FAILURE - GFR <15 Est. GFR calculation based on the MDRDstudy equation, which assumes a steadystate for creatinine. Est. GFR should notbe used for medication dosing. ID Date Data Source [id number] 07/11/2020 06:32:22 AM EDT [facility] Name Value Range Interpretation Code Description Data Naa rce(s) Supporting Document(s) WBC 10.8 10*3/uL (4.1-11.0) [facility] RBC 2.66 10*6/uL (4.00-5.40) L [facility] HGB 7.4 g/dL (12.0-16.0) L [facility] HCT 22.6 % (36.0-47.0) L [facility] MCV 84.9 fL (80.0-95.0) [facility] MCH 27.8 pg (27.0-32.0) [facility] MCHC 32.8 g/dL (32.0-36.0) [facility] RDW 14.4 % (10.5-14.5) [facility] PLT 260 10*3/uL (150-450) [facility] MPV 9.4 fL (7.1-10.7) [facility] ID Date Data Source [id number] 07/10/2020 09:44:32 PM EDT [facility] Name Value Range Interpretation Code Description Data Naa rce(s) Supporting Document(s) POC GLUCOSE 184 mg/dL (70-99) H [facility] PERFORMED BY CLINICAL STAFF ID Date Data Source [id number] 07/10/2020 05:16:01 PM EDT [facility] Name Value Range Interpretation Code Description Data Naa rce(s) Supporting Document(s) POC GLUCOSE 155 mg/dL (70-99) [facility] PERFORMED BY CLINICAL STAFF ID Date Data Source [id number] 07/10/2020 01:03:49 PM EDT [facility] Name Value Range Interpretation Code Description Data Naa rce(s) Supporting Document(s) POC GLUCOSE 182 mg/dL (70-99) [facility] NOTIFIED NURSEPERFORMED BY CLINICAL S TAFF ID Date Data Source [id number] 07/10/2020 09:37:51 AM EDT [facility] Name Value Range Interpretation Code Description Data Naa rce(s) Supporting Document(s) POC GLUCOSE 130 mg/dL (70-99) H [facility] PERFORMED BY CLINICAL STAFF ID Date Data Source [id number] 07/10/2020 09:51:07 AM EDT [facility] Name Value Range Interpretation Code Description Data Naa rce(s) Supporting Document(s) VANCOMYCIN RANDOM 21.2 ug/mL [facility] THERAPEUTIC RANGE IS ONLY AVAILABLE FOR PEAK AND TROUGH SPECIMENS. RANDOM LEVEL RESULTS MUST BE INTERPRETED BY THE PHYSICIAN. ID Date Data Source [id number] 07/10/2020 05:33:22 AM EDT [facility] Name Value Range Interpretation Code Description Data Naa rce(s) Supporting Document(s) WBC 12.2 10*3/uL (4.1-11.0) H [facility] RBC 2.70 10*6/uL (4.00-5.40) L [facility] HGB 7.3 g/dL (12.0-16.0) L [facility] HCT 22.9 % (36.0-47.0) L [facility] MCV 85.1 fL (80.0-95.0) [facility] MCH 27.0 pg (27.0-32.0) [facility] MCHC 31.7 g/dL (32.0-36.0) L [facility] RDW 14.2 % (10.5-14.5) [facility] PLT 258 10*3/uL (150-450) [facility] MPV 9.3 fL (7.1-10.7) [facility] ID Date Data Source [id number] 07/10/2020 05:54:42 AM EDT [facility] Name Value Range Interpretation Code Description Data Naa rce(s) Supporting Document(s) SODIUM 145 mmol/L (136-145) [facility] POTASSIUM 4.8 mmol/L (3.6-5.2) [facility] CHLORIDE 119 mmol/L (100-108) H [facility] CO2 22 mmol/L (22-31) [facility] ANION GAP 4 mmol/L (7-16) L [facility] UREA NITROGEN 52 mg/dL (7-24) H [facility] CREATININE 2.13 mg/dL (0.60-1.00) H [facility] BUN/CREAT RATIO 24.4 RATIO (10.0-20.0) H [facility] GLUCOSE 162 mg/dL (70-99) H [facility] CALCIUM 7.7 mg/dL (8.4-10.2) L [facility] GFR 23 ml/min/1.73m2 (>59) L [facility] GFR ( AMER) 28 ml/min/1.73m2 (>59) L [facility] GFR INTERPRETATION [facility] --NORMAL KIDNEY FUNCTION OR MILD DISEASE - GFR >OR= 60CHRONIC KIDNEY DISEASE - GFR 15 - 59RENAL FAILURE - GFR <15 Est. GFR calculation based on the MDRDstudy equation, which assumes a steadystate for creatinine. Est. GFR should notbe used for medication dosing. ID Date Data Source [id number] 07/09/2020 10:05:35 PM EDT [facility] Name Value Range Interpretation Code Description Data Naa rce(s) Supporting Document(s) POC GLUCOSE 177 mg/dL (70-99) H [facility] PERFORMED BY CLINICAL STAFF ID Date Data Source [id number] 07/09/2020 06:44:59 PM EDT [facility] Name Value Range Interpretation Code Description Data Naa rce(s) Supporting Document(s) POC GLUCOSE 161 mg/dL (70-99) H [facility] NOTIFIED NURSEPERFORMED BY CLINICAL S TAFF ID Date Data Source [id number] 07/09/2020 05:21:49 PM EDT [facility] Name Value Range Interpretation Code Description Data Naa rce(s) Supporting Document(s) POC GLUCOSE 137 mg/dL (70-99) H [facility] NOTIFIED NURSEPERFORMED BY CLINICAL S TAFF ID Date Data Source [id number] 07/09/2020 01:18:10 PM EDT [facility] Name Value Range Interpretation Code Description Data Naa rce(s) Supporting Document(s) POC GLUCOSE 132 mg/dL (70-99) H [facility] PERFORMED BY CLINICAL STAFF ID Date Data Source [id number] 07/09/2020 04:28:00 PM EDT [facility] [address] [address] NAME: REGGIE JOHNSON OF : 1955REPORT: DISCHARGE SUMMARYPATIENT NUMBER: [id number] STATUS: OF ADMISSION:DATE OF DISCHARGE:ROOM:For specifics of the admission, please see the H and P by *------* Hakan 07/05/2020.CONSULTATIONS: Including Infectious Disease, Orthopedic Surgery, and thediabetes nurse practitioner.PHYSICAL EXAMINATION: Today, the patient indicates [...] stable, platelet count 258,000. CT-guided needle biopsy frdhpczeh63/08/2020 involving T7-T8. MRI cervical spine; no evidence o fosteomyelitis within the cervical spine status post ACDF at C4-C6, expectedpostoperative changes noted, adjacent segment of disk disease at C3-C4 andC6-C7 resulting in bcpu-ku-cjfcxehn central spinal canal stenosis andeffacement of the ventral aspect of the thecal sac. MRI lumbar spine; noevidence of osteomyelitis, moderate central spinal canal stenosis at L2- M9prrhtagpw to broad-based concentric disk bulge with associated ligamentumflavum hypertrophy/facet arthropathy. MRI thoracic spine, nonspecificfluid signal within T7-T8. Intervertebral disk space which is nonspecific.No significant marrow edema, paravertebral soft tissue swelling or epiduralfluid collection to suggest diskitis, osteomyelitis. Jvwiwyimpdbrmk09/06/2020; normal LV size and systolic function, estimated [...] Myers, MDDictated: 07/09/2020 12:28DT: 07/09/2020 12:39Job #: [id number]: [facility] computer generated reports are notconfirmed or authenticated unless they are signed by the providerElectronically Authenticated by:JOIE MYERS MD On 07/09/2020 04:28 PM EDT Name Value Range Interpretation Code Description Data Naa rce(s) Supporting Document(s) ID Date Data Source [id number] 07/09/2020 09:41:51 AM EDT [facility] Name Value Range Interpretation Code Description Data Naa rce(s) Supporting Document(s) VANCOMYCIN RANDOM 20.5 ug/mL [facility] THERAPEUTIC RANGE IS ONLY AVAILABLE FOR PEAK AND TROUGH SPECIMENS. RANDOM LEVEL RESULTS MUST BE INTERPRETED BY THE PHYSICIAN. ID Date Data Source [id number] 07/09/2020 09:01:48 AM EDT [facility] Name Value Range Interpretation Code Description Data Naa rce(s) Supporting Document(s) POC GLUCOSE 96 mg/dL (70-99) [facility] NOTIFIED NURSEPERFORMED BY CLINICAL S TAFF ID Date Data Source [id number] 07/09/2020 07:50:16 AM EDT [facility] Name Value Range Interpretation Code Description Data Naa rce(s) Supporting Document(s) SODIUM 146 mmol/L (136-145) H [facility] POTASSIUM 5.0 mmol/L (3.6-5.2) [facility] CHLORIDE 119 mmol/L (100-108) H [facility] CO2 20 mmol/L (22-31) L [facility] ANION GAP 7 mmol/L (7-16) [facility] UREA NITROGEN 57 mg/dL (7-24) H [facility] CREATININE 2.33 mg/dL (0.60-1.00) H [facility] BUN/CREAT RATIO 24.5 RATIO (10.0-20.0) H [facility] GLUCOSE 93 mg/dL (70-99) [facility] CALCIUM 7.8 mg/dL (8.4-10.2) L [facility] GFR 21 ml/min/1.73m2 (>59) L [facility] GFR ( AMER) 25 ml/min/1.73m2 (>59) L [facility] GFR INTERPRETATION [facility] --NORMAL KIDNEY FUNCTION OR MILD DISEASE - GFR >OR= 60CHRONIC KIDNEY DISEASE - GFR 15 - 59RENAL FAILURE - GFR <15 Est. GFR calculation based on the MDRDstudy equation, which assumes a steadystate for creatinine. Est. GFR should notbe used for medication dosing. ID Date Data Source [id number] 07/09/2020 07:04:37 AM EDT [facility] Name Value Range Interpretation Code Description Data Naa rce(s) Supporting Document(s) WBC 11.7 10*3/uL (4.1-11.0) H [facility] RBC 2.69 10*6/uL (4.00-5.40) L [facility] HGB 7.3 g/dL (12.0-16.0) L [facility] HCT 23.2 % (36.0-47.0) L [facility] MCV 86.3 fL (80.0-95.0) [facility] MCH 27.3 pg (27.0-32.0) [facility] MCHC 31.6 g/dL (32.0-36.0) L [facility] RDW 14.4 % (10.5-14.5) [facility] PLT 258 10*3/uL (150-450) [facility] MPV 9.7 fL (7.1-10.7) [facility] ID Date Data Source [id number] 07/08/2020 09:41:06 PM EDT [facility] Name Value Range Interpretation Code Description Data Naa rce(s) Supporting Document(s) POC GLUCOSE 182 mg/dL (70-99) H [facility] PERFORMED BY CLINICAL STAFF ID Date Data Source [id number] 07/08/2020 05:35:55 PM EDT [facility] Name Value Range Interpretation Code Description Data Naa rce(s) Supporting Document(s) POC GLUCOSE 170 mg/dL (70-99) H [facility] PERFORMED BY CLINICAL STAFF ID Date Data Source [id number] 07/10/2020 12:21:00 PM EDT [facility] DATE OF EXAM: 07/08/2020CT GUIDED [...] space. X3End of diagnostic report for accession: [id number] Interpreted: Jose Martin Ortega MDTranscribed: 07/10/2020 12:16 PMSigned: 07/10/2020 12:21 PM Jose Martin Ortega MD ---- [facility] # [id number] [facility] # [id number] Name Value Range Interpretation Code Description Data Naa rce(s) Supporting Document(s) ID Date Data Source [id number] 07/13/2020 08:41:33 AM EDT [facility] SPECIMEN DESCRIPTION SITE T8 VERTEBRAESPECIAL REQUESTS NONECULTURE RESULTS NO ANAEROBES ISOLATED AFTER 5 DAYSREPORT STATUS FINAL 07/13/2020 Name Value Range Interpretation Code Description Data Naa rce(s) Supporting Document(s) ID Date Data Source [id number] 07/13/2020 08:41:28 AM EDT [facility] SPECIMEN DESCRIPTION SITE T8 VERTEBRAESPECIAL REQUESTS NONEGRAM STAIN MODERATE (10 TO 25/LPF) WHITE BLOOD CELLS NO BACTERIACULTURE RESULTS NO GROWTH 5 DAYSREPORT STATUS FINAL 07/13/2020 Name Value Range Interpretation Code Description Data Naa rce(s) Supporting Document(s) ID Date Data Source [id number] 07/09/2020 12:13:24 AM EDT [facility] SPECIMEN DESCRIPTION MISCELLANE[place] S SPECIMENSPECIAL REQUESTS NONEGRAM STAIN NOT DONECULTURE RESULTS TEST(S) PROCESSED UNDER NEW ENTRY PLEASE SEE [facility] [id number]. [id number] [phone].REPORT STATUS FINAL 07/09/2020 Name Value Range Interpretation Code Description Data Naa rce(s) Supporting Document(s) ID Date Data Source [id number] 07/09/2020 12:12:32 AM EDT [facility] SPECIMEN DESCRIPTION [place]IS[place] S SPECIMENSPECIAL REQUESTS NONECULTURE RESULTS TEST(S) PROCESSED UNDER NEW ENTRY PLEASE SEE [facility] [id number]. [phone].REPORT STATUS FINAL 07/09/2020 Name Value Range Interpretation Code Description Data Naa rce(s) Supporting Document(s) ID Date Data Source [id number] 07/08/2020 01:12:09 PM EDT [facility] Name Value Range Interpretation Code Description Data Naa rce(s) Supporting Document(s) POC GLUCOSE 172 mg/dL (70-99) H [facility] Marielena Castro NOTIFIED NURSEPERFORMED BY CLINICAL S TAFF ID Date Data Source [id number] 07/12/2020 04:54:14 PM EDT [facility] tobin Saul [facility] [place], [place] [address]Tel# SURGICAL PATHOLOGY REPORTPatient Name:RITIKA JOHNSON:1955Received:07/09/2020Accession #:[id number](s) Received: A: 1 - 13g core B0Whcanphd Diagnosis and History: Thoracic spine osteomyelitis. DIAGNOSIS:BONE, [...] Out By Daisha Velazquez M.D. jmdPathology [facility] Hernandez[address] [place], [place] [address]Technical component performed at [facility], Histopathology, [address] [place] [address], [phone].Report ed at [facility], [address] [place] [address], [phone].This report may include immunohistochemical or in- situ hybridizationresults. Testing was developed and the performance characteristicsdetermined by [facility], as required byCLIA '88. The FDA has determined that approval for specific use is notnecessary for clinical use. The quality of Hematoxylin and Eosin stainsand as applicable, for all immunohistochemical and/or special stains,including positive and negative controls, were reviewed and consideredappropriate.ICD codes: R89.7CPT4 codes: A: 30911G, 06369F Name Value Range Interpretation Code Description Data Naa rce(s) Supporting Document(s) ID Date Data Source [id number] 07/08/2020 07:46:05 AM EDT [facility] Name Value Range Interpretation Code Description Data Naa rce(s) Supporting Document(s) POC GLUCOSE 156 mg/dL (70-99) H [facility] PERFORMED BY CLINICAL STAFF ID Date Data Source [id number] 07/08/2020 07:09:11 AM EDT [facility] Name Value Range Interpretation Code Description Data Naa rce(s) Supporting Document(s) VANCOMYCIN RANDOM 20.7 ug/mL [facility] THERAPEUTIC RANGE IS ONLY AVAILABLE FOR PEAK AND TROUGH SPECIMENS. RANDOM LEVEL RESULTS MUST BE INTERPRETED BY THE PHYSICIAN. ID Date Data Source [id number] 07/08/2020 07:09:11 AM EDT [facility] Name Value Range Interpretation Code Description Data Naa rce(s) Supporting Document(s) SODIUM 147 mmol/L (136-145) H [facility] POTASSIUM 4.8 mmol/L (3.6-5.2) [facility] CHLORIDE 118 mmol/L (100-108) H [facility] CO2 19 mmol/L (22-31) L [facility] ANION GAP 10 mmol/L (7-16) [facility] UREA NITROGEN 63 mg/dL (7-24) H [facility] CREATININE 2.46 mg/dL (0.60-1.00) H [facility] BUN/CREAT RATIO 25.6 RATIO (10.0-20.0) H [facility] GLUCOSE 149 mg/dL (70-99) H [facility] CALCIUM 7.7 mg/dL (8.4-10.2) L [facility] GFR 20 ml/min/1.73m2 (>59) L [facility] GFR ( AMER) 24 ml/min/1.73m2 (>59) L [facility] GFR INTERPRETATION [facility] --NORMAL KIDNEY FUNCTION OR MILD DISEASE - GFR >OR= 60CHRONIC KIDNEY DISEASE - GFR 15 - 59RENAL FAILURE - GFR <15 Est. GFR calculation based on the MDRDstudy equation, which assumes a steadystate for creatinine. Est. GFR should notbe used for medication dosing. ID Date Data Source [id number] 07/08/2020 06:36:38 AM EDT [facility] Name Value Range Interpretation Code Description Data Naa rce(s) Supporting Document(s) WBC 10.8 10*3/uL (4.1-11.0) [facility] RBC 2.64 10*6/uL (4.00-5.40) L [facility] HGB 7.4 g/dL (12.0-16.0) L [facility] HCT 22.4 % (36.0-47.0) L [facility] MCV 84.7 fL (80.0-95.0) [facility] MCH 27.9 pg (27.0-32.0) [facility] MCHC 32.9 g/dL (32.0-36.0) [facility] RDW 14.2 % (10.5-14.5) [facility] PLT 237 10*3/uL (150-450) [facility] MPV 9.9 fL (7.1-10.7) [facility] ID Date Data Source [id number] 07/07/2020 10:28:41 PM EDT [facility] Name Value Range Interpretation Code Description Data Naa rce(s) Supporting Document(s) POC GLUCOSE 203 mg/dL (70-99) H [facility] NOTIFIED NURSEPERFORMED BY CLINICAL S TAFF ID Date Data Source [id number] 07/07/2020 08:52:20 PM EDT [facility] Name Value Range Interpretation Code Description Data Naa rce(s) Supporting Document(s) SODIUM 145 mmol/L (136-145) [facility] POTASSIUM 5.1 mmol/L (3.6-5.2) [facility] CHLORIDE 120 mmol/L (100-108) H [facility] CO2 19 mmol/L (22-31) L [facility] ANION GAP 6 mmol/L (7-16) L [facility] UREA NITROGEN 64 mg/dL (7-24) H [facility] CREATININE 2.57 mg/dL (0.60-1.00) H [facility] BUN/CREAT RATIO 24.9 RATIO (10.0-20.0) H [facility] GLUCOSE 203 mg/dL (70-99) H [facility] CALCIUM 7.9 mg/dL (8.4-10.2) L [facility] GFR 19 ml/min/1.73m2 (>59) L [facility] GFR ( AMER) 23 ml/min/1.73m2 (>59) L [facility] GFR INTERPRETATION [facility] --NORMAL KIDNEY FUNCTION OR MILD DISEASE - GFR >OR= 60CHRONIC KIDNEY DISEASE - GFR 15 - 59RENAL FAILURE - GFR <15 Est. GFR calculation based on the MDRDstudy equation, which assumes a steadystate for creatinine. Est. GFR should notbe used for medication dosing. ID Date Data Source [id number] 07/07/2020 06:12:41 PM EDT [facility] Name Value Range Interpretation Code Description Data Naa rce(s) Supporting Document(s) POC GLUCOSE 171 mg/dL (70-99) H [facility] NOTIFIED NURSEPERFORMED BY CLINICAL S TAFF ID Date Data Source [id number] 07/07/2020 02:24:54 PM EDT [facility] Name Value Range Interpretation Code Description Data Naa rce(s) Supporting Document(s) SODIUM 142 mmol/L (136-145) [facility] POTASSIUM 5.6 mmol/L (3.6-5.2) H [facility] CHLORIDE 116 mmol/L (100-108) H [facility] CO2 19 mmol/L (22-31) L [facility] ANION GAP 7 mmol/L (7-16) [facility] UREA NITROGEN 68 mg/dL (7-24) H [facility] CREATININE 2.72 mg/dL (0.60-1.00) H [facility] BUN/CREAT RATIO 25.0 RATIO (10.0-20.0) H [facility] GLUCOSE 270 mg/dL (70-99) H [facility] CALCIUM 7.7 mg/dL (8.4-10.2) L [facility] GFR 18 ml/min/1.73m2 (>59) L [facility] GFR ( AMER) 21 ml/min/1.73m2 (>59) L [facility] GFR INTERPRETATION [facility] --NORMAL KIDNEY FUNCTION OR MILD DISEASE - GFR >OR= 60CHRONIC KIDNEY DISEASE - GFR 15 - 59RENAL FAILURE - GFR <15 Est. GFR calculation based on the MDRDstudy equation, which assumes a steadystate for creatinine. Est. GFR should notbe used for medication dosing. ID Date Data Source [id number] 07/07/2020 01:01:54 PM EDT [facility] Name Value Range Interpretation Code Description Data Naa rce(s) Supporting Document(s) POC GLUCOSE 293 mg/dL (70-99) H [facility] PERFORMED BY CLINICAL STAFF ID Date Data Source [id number] 07/07/2020 08:49:45 AM EDT [facility] Name Value Range Interpretation Code Description Data Naa rce(s) Supporting Document(s) POC GLUCOSE 221 mg/dL (70-99) H [facility] NOTIFIED NURSEPERFORMED BY CLINICAL S TAFF ID Date Data Source [id number] 07/07/2020 06:55:10 AM EDT [facility] Name Value Range Interpretation Code Description Data Naa rce(s) Supporting Document(s) VANCOMYCIN RANDOM 17.1 ug/mL [facility] THERAPEUTIC RANGE IS ONLY AVAILABLE FOR PEAK AND TROUGH SPECIMENS. RANDOM LEVEL RESULTS MUST BE INTERPRETED BY THE PHYSICIAN. ID Date Data Source [id number] 07/07/2020 06:55:10 AM EDT [facility] Name Value Range Interpretation Code Description Data Naa rce(s) Supporting Document(s) SODIUM 144 mmol/L (136-145) [facility] POTASSIUM 5.4 mmol/L (3.6-5.2) H [facility] CHLORIDE 118 mmol/L (100-108) H [facility] CO2 20 mmol/L (22-31) L [facility] ANION GAP 6 mmol/L (7-16) L [facility] UREA NITROGEN 69 mg/dL (7-24) H [facility] CREATININE 2.83 mg/dL (0.60-1.00) H [facility] BUN/CREAT RATIO 24.4 RATIO (10.0-20.0) H [facility] GLUCOSE 224 mg/dL (70-99) H [facility] CALCIUM 7.4 mg/dL (8.4-10.2) L [facility] GFR 17 ml/min/1.73m2 (>59) L [facility] GFR ( AMER) 20 ml/min/1.73m2 (>59) L [facility] GFR INTERPRETATION [facility] --NORMAL KIDNEY FUNCTION OR MILD DISEASE - GFR >OR= 60CHRONIC KIDNEY DISEASE - GFR 15 - 59RENAL FAILURE - GFR <15 Est. GFR calculation based on the MDRDstudy equation, which assumes a steadystate for creatinine. Est. GFR should notbe used for medication dosing. ID Date Data Source [id number] 07/07/2020 06:27:20 AM EDT [facility] Name Value Range Interpretation Code Description Data Naa rce(s) Supporting Document(s) WBC 10.6 10*3/uL (4.1-11.0) [facility] RBC 2.72 10*6/uL (4.00-5.40) L [facility] HGB 7.4 g/dL (12.0-16.0) L [facility] HCT 23.0 % (36.0-47.0) L [facility] MCV 84.5 fL (80.0-95.0) [facility] MCH 27.3 pg (27.0-32.0) [facility] MCHC 32.3 g/dL (32.0-36.0) [facility] RDW 13.9 % (10.5-14.5) [facility] PLT 220 10*3/uL (150-450) [facility] MPV 10.3 fL (7.1-10.7) [facility] ID Date Data Source [id number] 07/06/2020 10:42:04 PM EDT [facility] Name Value Range Interpretation Code Description Data Naa rce(s) Supporting Document(s) POC GLUCOSE 217 mg/dL (70-99) H [facility] PERFORMED BY CLINICAL STAFF ID Date Data Source [id number] 07/07/2020 09:16:00 AM EDT [facility] DATE OF EXAM: 07/06/2020[facility] MRI LUMBAR SPINE WITHOUT CONTRAST INDICATION: Osteomyelitis. [...] arthropathy. D7End of diagnostic report for accession: [id number] Interpreted: Rex Hernández MDTranscribed: 07/07/2020 09:11 AMSigned: 07/07/2020 09:16 AM Rex Hernández MD [facility] # [id number] BILL # [id number] Name Value Range Interpretation Code Description Data Naa rce(s) Supporting Document(s) ID Date Data Source [id number] 07/07/2020 09:11:00 AM EDT [facility] DATE OF EXAM: 07/06/2020[facility] MRI THORACIC SPINE WITHOUT CONTRAST CLINICAL STATEMENT: [...] days. D7End of diagnostic report for accession: [id number] Interpreted: Rex Hernández MDTranscribed: 07/07/2020 09:02 AMSigned: 07/07/2020 09:11 AM Rex Hernández MD [facility] # [id number] BILL # [id number] Name Value Range Interpretation Code Description Data Naa rce(s) Supporting Document(s) ID Date Data Source [id number] 07/07/2020 09:02:00 AM EDT [facility] DATE OF EXAM: 07/06/2020[facility] MRI CERVICAL SPINE WITHOUT CONTRAST CLINICAL STATEMENT: [...] sac. D7End of diagnostic report for accession: [id number] Interpreted: Rex Hernández MDTranscribed: 07/07/2020 08:55 AMSigned: 07/07/2020 09:02 AM Rex Hernández MD [facility] # [id number] [facility] # [id number] Name Value Range Interpretation Code Description Data Naa rce(s) Supporting Document(s) ID Date Data Source [id number] 07/06/2020 09:30:39 PM EDT [facility] Name Value Range Interpretation Code Description Data Naa rce(s) Supporting Document(s) POC GLUCOSE 215 mg/dL (70-99) H [facility] PERFORMED BY CLINICAL STAFF ID Date Data Source [id number] 07/06/2020 06:45:24 PM EDT [facility] Name Value Range Interpretation Code Description Data Naa rce(s) Supporting Document(s) POC GLUCOSE 187 mg/dL (70-99) H [facility] NOTIFIED NURSEPERFORMED BY CLINICAL S TAFF ID Date Data Source [id number] 07/06/2020 03:17:15 PM EDT [facility] Name Value Range Interpretation Code Description Data Naa rce(s) Supporting Document(s) POC GLUCOSE 170 mg/dL (70-99) H [facility] NOTIFIED NURSEPERFORMED BY CLINICAL S TAFF ID Date Data Source [id number] 07/06/2020 02:00:13 PM EDT [facility] Name Value Range Interpretation Code Description Data Naa rce(s) Supporting Document(s) POC GLUCOSE 187 mg/dL (70-99) H [facility] PERFORMED BY CLINICAL STAFF ID Date Data Source [id number] 07/06/2020 09:40:37 AM EDT [facility] Name Value Range Interpretation Code Description Data Naa rce(s) Supporting Document(s) POC GLUCOSE 170 mg/dL (70-99) H [facility] PERFORMED BY CLINICAL STAFF ID Date Data Source [id number] 07/06/2020 08:43:52 AM EDT [facility] Name Value Range Interpretation Code Description Data Naa rce(s) Supporting Document(s) POC GLUCOSE 176 mg/dL (70-99) H [facility] PERFORMED BY CLINICAL STAFF ID Date Data Source [id number] 07/06/2020 08:38:35 AM EDT [facility] Name Value Range Interpretation Code Description Data Naa rce(s) Supporting Document(s) VANCOMYCIN RANDOM 8.0 ug/mL [facility] THERAPEUTIC RANGE IS ONLY AVAILABLE FOR PEAK AND TROUGH SPECIMENS. RANDOM LEVEL RESULTS MUST BE INTERPRETED BY THE PHYSICIAN. ID Date Data Source [id number] 07/06/2020 08:38:20 AM EDT [facility] Name Value Range Interpretation Code Description Data Naa rce(s) Supporting Document(s) ESR 114 mm/h (0-30) H [facility] ID Date Data Source [id number] 07/06/2020 07:33:29 AM EDT [facility] Name Value Range Interpretation Code Description Data Naa rce(s) Supporting Document(s) C REACTIVE PROTEIN @ 11.2 mg/dL (0.0-0.5) H [facility] [place] [facility] PERFOR[facility] AT [address] [address] ID Date Data Source [id number] 07/06/2020 07:33:29 AM EDT [facility] Name Value Range Interpretation Code Description Data Naa rce(s) Supporting Document(s) SODIUM 143 mmol/L (136-145) [facility] POTASSIUM 4.9 mmol/L (3.6-5.2) [facility] CHLORIDE 117 mmol/L (100-108) H [facility] CO2 19 mmol/L (22-31) L [facility] ANION GAP 7 mmol/L (7-16) [facility] UREA NITROGEN 71 mg/dL (7-24) H [facility] CREATININE 3.47 mg/dL (0.60-1.00) H [facility] BUN/CREAT RATIO 20.5 RATIO (10.0-20.0) H [facility] GLUCOSE 193 mg/dL (70-99) H [facility] CALCIUM 7.6 mg/dL (8.4-10.2) L [facility] GFR 13 ml/min/1.73m2 (>59) L [facility] GFR ( AMER) 16 ml/min/1.73m2 (>59) L [facility] [place] [facility] [place] GFR [facility]ATION [facility] [place] --NORMAL KIDNEY FUNCTION OR MILD DISEASE - GFR >OR= 60CHRONIC KIDNEY DISEASE - GFR 15 - 59RENAL FAILURE - GFR <15 Est. GFR calculation based on the MDRDstudy equation, which assumes a steadystate for creatinine. Est. GFR should notbe used for medication dosing. ID Date Data Source [id number] 07/06/2020 07:20:12 AM EDT [facility] [place] [facility] [facility] Name Value Range Interpretation Code Description Data Naa rce(s) Supporting Document(s) HEMOGLOBIN A1C @ 10.5 % (4.0-6.0) H [facility] [place] [facility] [place] Performed using [employer] immunoassa y.Care must be taken when interpreting [id number] in patients with a hemoglobin variantor decreased erythrocyte lifespan. Values 5.7 - 6.4% suggest prediabetes.Values >=6.5% are diagnostic for diabetes.REFERENCE: DIABETES CARE 2018: 41(S13-S27).PERFORMED AT [address] [place] [address] EST AVERAGE GLUCOSE 255 mg/dL [facility] [place] ID Date Data Source [id number] 07/06/2020 06:59:36 AM EDT [facility] [place] [facility] [place] Name Value Range Interpretation Code Description Data Naa rce(s) Supporting Document(s) WBC 13.2 10*3/uL (4.1-11.0) H [facility] [place] [facility] [place] RBC 2.85 10*6/uL (4.00-5.40) L [facility] [place] [facility] [place] HGB 7.5 g/dL (12.0-16.0) L [facility] [place] [facility] [place] HCT 23.6 % (36.0-47.0) L [facility] [place] [facility] [place] Castro MCV 82.7 fL (80.0-95.0) [facility] [place] [facility] [place] MCH 26.2 pg (27.0-32.0) L [facility] [place] [facility] [place] MCHC 31.7 g/dL (32.0-36.0) L [facility] [place] [facility] [place] RDW 14.0 % (10.5-14.5) [facility] [place] [facility] [place] PLT 250 10*3/uL (150-450) [facility] [place] [facility] [place] MPV 10.1 fL (7.1-10.7) [facility] [place] [facility] [facility] ID Date Data Source [id number] 07/05/2020 10:34:01 PM EDT [facility] [place] [facility] [facility] Name Value Range Interpretation Code Description Data Naa rce(s) Supporting Document(s) POC GLUCOSE 233 mg/dL (70-99) H [facility] [place] Marielena Castro NOTIFIED NURSEPERFORMED BY CLINICAL S TAFF ID Date Data Source [id number] 07/05/2020 10:11:00 PM EDT [facility] [place] [facility] Name Value Range Interpretation Code Description Data Naa rce(s) Supporting Document(s) SARS coronavirus 2 RNA [Presence] in Res piratory specimen by JOHN with probe detection [facility] [place] [facility] [place] This lab was reported by [facility] [place] [facility]. ID Date Data Source [id number] 07/06/2020 02:38:53 AM EDT [facility] [place] [facility] [facility] Name Value Range Interpretation Code Description Data Naa rce(s) Supporting Document(s) SPECIMEN DESCRIPTION [facility] [place] COVID19 RESULT (NDET) [facility] [place] THIS ASSAY AMPLIFIES AND DETECTSTHE TARG ET RNA USING REAL-TIME PCR.NEGATIVE 2019_NCOV RT-PCR RESULTS DONOT PRECLUDE 2019_NCOV INFECTION ANDSHOULD NOT BE USED THE SOLE BASISFOR PATIENT MANAGEMENT DECISIONS. COMMENT [facility] [place] [facility] UNDER AN EMERGENCY USE AUTHORIZATION(EUA ) FOR THE DETECTION AND/OR DIAGNOSISOF THE VIRUS THAT CAUSES COVID-19.EMAILED RESULT TO IC AT 0231 ON [id number]. [id number] FIRST TEST [facility] [place] [facility] [place] EMPLOYED IN HLTHCARE [facility] [place] SYMPTOMATIC [facility] [place] [facility] [place] Castro DATE OF SYMPT ONSET [facility] [place] HOSPITALIZED [facility] [place] [facility] ICU [facility] [place] [facility] [place] CONGREGATE CARE SET [facility] [place] [facility] [place] [facility] ID Date Data Source [id number] 07/05/2020 08:37:51 PM EDT [facility] [place] [facility] [place] Name Value Range Interpretation Code Description Data Naa rce(s) Supporting Document(s) SODIUM 142 mmol/L (136-145) [facility] [place] [facility] [place] POTASSIUM 5.2 mmol/L (3.6-5.2) [facility] [place] [facility] [place] CHLORIDE 114 mmol/L (100-108) H [facility] [place] [facility] [place] CO2 21 mmol/L (22-31) L [facility] [place] [facility] [place] ANION GAP 7 mmol/L (7-16) [facility] [place] [facility] [place] UREA NITROGEN 74 mg/dL (7-24) H [facility] [place] [facility] [place] CREATININE 3.74 mg/dL (0.60-1.00) H [facility] [place] [facility] [place] BUN/CREAT RATIO 19.8 RATIO (10.0-20.0) [facility] [place] GLUCOSE 199 mg/dL (70-99) H [facility] [place] [facility] [place] CALCIUM 7.8 mg/dL (8.4-10.2) L [facility] [place] [facility] [place] GFR 12 ml/min/1.73m2 (>59) L [facility] [place] [facility] [place] GFR ( AMER) 15 ml/min/1.73m2 (>59) L [facility] [place] [facility] [place] GFR INTERPRETATION [facility] [place] --NORMAL KIDNEY FUNCTION OR MILD DISEASE - GFR >OR= 60CHRONIC KIDNEY DISEASE - GFR 15 - 59RENAL FAILURE - GFR <15 Est. GFR calculation based on the MDRDstudy equation, which assumes a steadystate for creatinine. Est. GFR should notbe used for medication dosing. ID Date Data Source [id number] 07/05/2020 08:08:42 PM EDT [facility] [place] [facility] [place] Name Value Range Interpretation Code Description Data Naa rce(s) Supporting Document(s) WBC 11.9 10*3/uL (4.1-11.0) H [facility] [place] [facility] [place] RBC 2.92 10*6/uL (4.00-5.40) L [facility] [place] [facility] [place] HGB 7.8 g/dL (12.0-16.0) L [facility] [place] [facility] [place] HCT 24.5 % (36.0-47.0) L [facility] [place] [facility] [place] MCV 83.8 fL (80.0-95.0) [facility] [place] [facility] [place] MCH 26.7 pg (27.0-32.0) L [facility] [place] [facility] [place] MCHC 31.8 g/dL (32.0-36.0) L [facility] [place] [facility] [place] RDW 13.8 % (10.5-14.5) [facility] [place] [facility] [place] PLT 219 10*3/uL (150-450) [facility] [place] [facility] [place] MPV 10.2 fL (7.1-10.7) [facility] [place] [facility] [place] ID Date Data Source [id number] 07/05/2020 08:00:23 PM EDT [facility] [place] [facility] [place] Name Value Range Interpretation Code Description Data Naa rce(s) Supporting Document(s) POC GLUCOSE 184 mg/dL (70-99) H [facility] [place] [facility] [place] NOTIFIED NURSEPERFORMED BY CLINICAL S TAFF ID Date Data Source [id number] 03/17/2020 08:28:23 AM EDT [facility], PCName: Ritika Tsai: 1955Provider: Douglas [...] rce(s) Supporting Document(s) ID Date Data Source [id number] 01/21/2020 01:48:00 PM EDT [facility] ([facility]) Name Value Range Interpretation Code Description Data Naa rce(s) Supporting Document(s) Hemoglobin A1c/Hemoglobin.total in Blood 10.9 MED[facility] ([facility]) ID Date Data Source [id number] 01/21/2020 01:48:00 PM EDT [facility] ([facility]) Name Value Range Interpretation Code Description Data Naa rce(s) Supporting Document(s) Glucose 109 70-100 [facility] ([facility]) Blood Urea Nitrogen 55 7-18 [facility] ([facility]) Creatinine 2.06 0.55-1.3 [facility] ([facility]) Sodium 143 136-145 [facility] ([facility] Potassium 4.8 3.5-5.1 [facility] ([facility] Chloride 109 98-107 [facility] ([facility] Carbon Dioxide 27 21-32 [facility] ([facility]) Glomerular filtration rate/1.73 sq M.pre dicted [Volume Rate/Area] in Serum or Plasma by Creatinine-based formula (MDRD) 25.8 [facility] ([facility]) Calcium 8.6 8.8-10.2 [facility] ([facility]) ID Date Data Source [id number] 01/21/2020 10:20:00 AM EDT [facility] ([facility], ) Name Value Range Interpretation Code Description Data Naa rce(s) Supporting Document(s) PDFReport SEE IMAGE MEDENT ([facility]) FVC-Pre 1.61 L [facility] ([facility]) FVC-%Pred-Pre 59 L MED[facility] ([facility]) FVC-Pred 2.72 L [facility] ([facility]) Fev1-Pre 1.34 L [facility] ([facility]) Fev1-Pred 2.08 L [facility] ([facility]) FVC-LLN 2.11 L [facility] ([facility]) Fev1-%Pred-Pre 64 L MED[facility] ([facility]) Fev6-Pred 2.61 L MED[facility] ([facility]) Fev1-LLN 1.56 L [facility] ([facility]) Fev6-%Pred-Pre 61 L [facility] ([facility]) Fev6-Pre 1.61 L [facility] ([facility]) Fev6-LLN 2.01 L [facility] ([facility]) Ply4mut-%Pred-Pre 108 % MED[facility] ([facility]) Mkb3dae-Suio 77 % MED[facility] ([facility]) Hnu6est-Agh 83 % MED[facility] ([facility]) Jnc1lve-Egeu 96 % MED[facility] ([facility]) Wdc4uhf-Wji 100 % MED[facility] ([facility] ) Zml3qgx-IFF 67 % [facility] ([facility]) FEFMax-Pre 5.39 L/E/sec MED[facility] ([facility]) FEFMax-Pred 5.46 L/E/sec MED[facility] ([facility]) Ppl0nyr-%Pred-Pre 104 % [facility] ([facility]) [id number] 1.95 L/E/sec MED[facility] ([facility]) FEFMax-LLN 3.96 L/E/sec MED[facility] ([facility]) FEFMax-%Pred-Pre 98 L/E/sec [facility] ([facility]) Cfa4115-%Pred-Pre 78 L/E/sec MED[facility] ([facility]) Pan5209-Qbj 1.53 L/E/sec MED[facility] ([facility]) ExpTime-Pre 7.24 sec MED[facility] ([facility]) Xwt9hwv4-Dsiz 80 % [facility] ([facility]) Qmn6111-DSJ 0.86 L/E/sec MED[facility] ([facility]) Xkv5iux4-QDG 71 % [facility] ([facility]) Ulb8njr8-%Pred-Pre 104 % [facility] ([facility]) Cnu1qnx3-Vhe 83 % [facility] ([facility]) ID Date Data Source [id number] 01/21/2020 12:00:00 AM EDT eCW1 ([facility]) Name Value Range Interpretation Code Description Data Naa rce(s) Supporting Document(s) 21.2 30.0-100.0 TOTAL 25(OH) VITAMIN D eC W1 ([facility]) ID Date Data Source Basic Metabolic Profile (BMP) 01/21/2020 12:00:00 AM EDT eCW 1 ([facility]) Name Value Range Interpretation Code Description Data Naa rce(s) Supporting Document(s) 55 7-18 BLOOD UREA NITROGEN eCW1 ([facility]) 109 70-100 GLUCOSE, FASTING eCW1 ([facility]) 2.06 0.55-1.30 CREATININE FOR GFR eCW1 ([facility]) 4.8 3.5-5.1 POTASSIUM SERUM eCW1 ([facility]) 143 136-145 SODIUM LEVEL eCW1 ([facility]) 25.8 >45 GLOMERULAR FILTRATION RATE eCW 1 ([facility]) 109 98-107 CHLORIDE LEVEL eCW1 ([facility]) 27 21-32 CARBON DIOXIDE LEVEL eCW1 ([facility]) 8.6 8.8-10.2 CALCIUM LEVEL eCW1 ([facility]) ID Date Data Source [id number] 10/17/2019 10:27:00 AM EST [facility] ([facility]) Name Value Range Interpretation Code Description Data Naa rce(s) Supporting Document(s) Troponin Laboratory test result [facility] ([facility]) Natriuretic peptide.B prohormone N-Terminal [Mass/volu me] in Serum or Plasma 3855 MEDENT ([facility]) ID Date Data Source [id number] 10/17/2019 10:27:00 AM EST [facility] ([facility]) Name Value Range Interpretation Code Description Data Naa rce(s) Supporting Document(s) Creatine kinase [Enzymatic activity/volume] in Serum or Plasma 118 [facility] ([facility]) MB/CK Relative 2.54 [facility] ([facility]) CPK-MB 3.0 MED[facility] ([facility]) ID Date Data Source [id number] 10/17/2019 10:27:00 AM EST [facility] ([facility]) Name Value Range Interpretation Code Description Data Naa rce(s) Supporting Document(s) Albumin [Mass/volume] in Serum or Plasma 2.8 [facility] ([facility]) Alanine aminotransferase [Enzymatic activity/volume] in Serum or Pl asma 23 MED[facility] ([facility]) Calcium [Mass/volume] in Serum or Plasma 8.2 [facility] ([facility]) Carbon dioxide, total [Moles/volume] in Serum or Plasma 24 [facility] ([facility]) Chloride [Moles/volume] in Serum or Plasma 110 [facility] ([facility]) Alkaline phosphatase [Enzymatic activity/volume] in Serum or Plasma 8 8 [facility] ([facility]) Potassium [Moles/volume] in Serum or Plasma 4.0 [facility] ([facility]) Protein [Mass/volume] in Serum or Plasma 6.1 [facility] ([facility]) Sodium 143 [facility] ([facility]) Aspartate aminotransferase [Enzymatic activity/volume] in Serum or Plasma 6 [facility] ([facility]) Urea nitrogen [Mass/volume] in Serum or Plasma 45 [facility] ([facility]) Creatinine For GFR 2.04 [facility] ([facility]) Glucose 296 70-100 [facility] ([facility]) ID Date Data Source [id number] 10/17/2019 10:27:00 AM EST [facility] ([facility]) Name Value Range Interpretation Code Description Data Naa rce(s) Supporting Document(s) White Blood Count 8.1 4.0-10.0 [facility] ([facility]) Red Blood Count 3.84 4.00-5.40 [facility] ([facility]) Platelets 247 150-450 [facility] ([facility]) Hemoglobin 10.4 [facility] ([facility]) Hematocrit 33.5 [facility] ([facility]) Procedure Social History Code Duration Value Status Description Data Source(s ) Smoking 11/22/2020 12:00:00 AM EST Former Smoker completed Former Smoker eCW1 ([facility]) Smoking 11/22/2020 12:00:00 AM EST Former Smoker completed Former Smoker eCW1 ([facility]) Smoking 11/04/2020 12:00:00 AM EST Former Smoker completed Former Smoker eCW1 ([facility]) Smoking 10/13/2020 12:00:00 AM EST Former Smoker completed Former Smoker eCW1 ([facility]) Smoking 10/13/2020 12:00:00 AM EST Former Smoker completed Former Smoker eCW1 ([facility]) Smoking 09/03/2020 12:00:00 AM EST Former Smoker completed Former Smoker eCW1 ([facility]) Smoking 09/03/2020 12:00:00 AM EST Former Smoker completed Former Smoker eCW1 ([facility]) Smoking 09/03/2020 12:00:00 AM EST Former Smoker completed Former Smoker eCW1 ([facility]) Smoking 09/03/2020 12:00:00 AM EST Former Smoker completed Former Smoker eCW1 ([facility]) Smoking 07/23/2020 12:00:00 AM EDT - 10/01/2007 12:00:00 AM EST Patient is a former smoker completed Patient is a former smoker [facility] ([facility], ) Smoking 07/22/2020 12:00:00 AM EDT Former Smoker completed Former Smoker eCW1 ([facility]) Smoking 07/22/2020 12:00:00 AM EDT Former Smoker completed Former Smoker eCW1 ([facility]) Smoking 07/22/2020 12:00:00 AM EDT Former Smoker completed Former Smoker eCW1 ([facility]) Smoking 07/22/2020 12:00:00 AM EDT Former Smoker completed Former Smoker eCW1 ([facility]) Smoking 07/22/2020 12:00:00 AM EDT Former Smoker completed Former Smoker eCW1 ([facility]) Smoking 07/06/2020 11:06:00 AM EDT Former Smoker completed Former Smoker [facility] Smoking 01/21/2020 12:00:00 AM EDT Former Smoker completed Former Smoker eCW1 ([facility]) Smoking 10/23/2019 12:00:00 AM EST Patient is a former smoker completed Patient is a former smoker [facility] ([facility]) Vital Signs ID Date Data Source [id number] Name Value Range Interpretation Code Description Data Source(s) Diastolic blood pressure 74 mm[Hg] 74 mm[Hg] eCW1 ([facility]) Systolic blood pressure 122 mm[Hg] 122 mm[Hg] e CW1 ([facility]) Body temperature 96.8 [degF] 96.8 [degF] eCW1 ( [facility]) Respiratory rate 18 /min 18 /min eCW1 ([facility]) Heart rate 79 /min 79 /min eCW1 ([facility]) Body mass index (BMI) [Ratio] 38.08 kg/m2 38.08 kg/m2 eCW1 ([facility]) Body height 60 [in_i] 60 [in_i] eCW1 ([facility]) Body weight 195 [lb_av] 195 [lb_av] eCW1 ([facility]) Diastolic blood pressure 68 mm[Hg] 68 mm[Hg] eCW1 ([facility]) Systolic blood pressure 122 mm[Hg] 122 mm[Hg] e CW1 ([facility]) Body temperature 97.3 [degF] 97.3 [degF] eCW1 ( [facility]) Respiratory rate 20 /min 20 /min eCW1 ([facility]) Heart rate 74 /min 74 /min eCW1 ([facility]) Body mass index (BMI) [Ratio] 39.25 kg/m2 39.25 kg/m2 eCW1 ([facility]) Body height 60 [in_i] 60 [in_i] eCW1 ([facility]) Body weight 201 [lb_av] 201 [lb_av] eCW1 ([facility]) Diastolic blood pressure 70 mm[Hg] 70 mm[Hg] eCW1 ([facility]) Systolic blood pressure 120 mm[Hg] 120 mm[Hg] e CW1 ([facility]) Body temperature 97 [degF] 97 [degF] eCW1 ([facility]) Respiratory rate 20 /min 20 /min eCW1 ([facility]) Heart rate 77 /min 77 /min eCW1 ([facility]) Body mass index (BMI) [Ratio] 38.47 kg/m2 38.47 kg/m2 eCW1 ([facility]) Body height 60 [in_i] 60 [in_i] eCW1 ([facility]) Body weight 197 [lb_av] 197 [lb_av] eCW1 ([facility]) Baker body weight 100 [lb_av] 100 [lb_av] MEDEN T ([facility]) Body mass index (BMI) [Ratio] 40.0 kg/m2 40.0 k g/m2 MEDENT ([facility]) Body weight 198.00 [lb_av] 198.00 [lb_av] MEDEN T ([facility]) Body height 59 [in_i] 59 [in_i] [facility] ([facility]) 4'11" Respiratory rate 12 /min 12 /min MED[facility] ( [facility]) Diastolic blood pressure 80 mm[Hg] 80 mm[Hg] eCW1 ([facility]) Systolic blood pressure 142 mm[Hg] 142 mm[Hg] e CW1 ([facility]) Body temperature 96.7 [degF] 96.7 [degF] eCW1 ( [facility]) Respiratory rate 20 /min 20 /min eCW1 ([facility]) Heart rate 86 /min 86 /min eCW1 ([facility]) Body mass index (BMI) [Ratio] 39.84 kg/m2 39.84 kg/m2 W1 ([facility]) Body height 60 [in_i] 60 [in_i] eCW1 ([facility]) Body weight 204 [lb_av] 204 [lb_av] eCW1 ([facility]) Body weight 96.163 kg 96.163 kg MEDENT ([facility]) Baker body weight 100 [lb_av] 100 [lb_av] MEDEN T ([facility]) Body mass index (BMI) [Ratio] 41.4 kg/m2 41.4 k g/m2 [facility] Body weight 212.00 [lb_av] 212.00 [lb_av] MEDEN T ([facility]) pt states Body height 60 [in_i] 60 [in_i] MEDENT ([facility]) 5'0" Oxygen saturation in Arterial blood by Pulse oximetry 962 % 962 % [facility] ([facility]) Heart rate 77 /min 77 /min MED[facility] ([facility], ) Diastolic blood pressure 80 mm[Hg] 80 mm[Hg] MED[facility] ([facility], ) Systolic blood pressure 130 mm[Hg] 130 mm[Hg] M EDENT ([facility], ) Diastolic blood pressure 84 mm[Hg] 84 mm[Hg] eCW1 ([facility]) Systolic blood pressure 142 mm[Hg] 142 mm[Hg] e CW1 ([facility]) Body temperature 97.1 [degF] 97.1 [degF] eCW1 ( [facility]) Respiratory rate 20 /min 20 /min eCW1 ([facility]) Heart rate 91 /min 91 /min eCW1 ([facility]) Body mass index (BMI) [Ratio] 41.98 kg/m2 41.98 kg/m2 W1 ([facility]) Body height 60 [in_i] 60 [in_i] eCW1 ([facility]) Body weight 215 [lb_av] 215 [lb_av] eCW1 ([facility]) Deprecated Oxygen saturation in Capillary blood by Oximetry 98 % Normal (applies to non-numeric results) 98 % [facility] Heart rate 86 min Normal (applies to non-numeric resul ts) 86 min [facility] Diastolic blood pressure 85 mm[Hg] Normal (applies to non-numeric results) 85 mm[Hg] [facility] Systolic blood pressure 163 mm[Hg] Normal (applies t o non-numeric results) 163 mm[Hg] [facility] Body temperature 37.1 josue Normal (applies to non-numeric results) 37.1 josue [facility] Respiratory rate 18 min Normal (applies to non-numeric results) 18 min [facility] Body height 148.7424 cm Normal (applies to non-numeric res ults) 148.7424 cm [facility] Body weight Measured 90.718 kg Normal (applies to n on-numeric results) 90.718 kg [facility] Body mass index (BMI) [Ratio] 40.39 kg/m2 No rmal (applies to non-numeric results) 40.39 kg/m2 [facility] Body weight 98.431 kg 98.431 kg MED[facility] ([facility]) Baker body weight 100 [lb_av] 100 [lb_av] [facility] Body mass index (BMI) [Ratio] 42.4 kg/m2 42.4 k g/m2 [facility] ([facility]) Body weight 217.00 [lb_av] 217.00 [lb_av] [facility] Body height 60 [in_i] 60 [in_i] [facility] ([facility]) 5'0" Body temperature 96.8 [degF] 96.8 [degF] [facility] ([facility]) Oxygen saturation in Arterial blood by Pulse oximetry 95 % 95 % [facility] ([facility]) Heart rate 75 /min 75 /min [facility] ([facility]) Diastolic blood pressure 72 mm[Hg] 72 mm[Hg] [facility] ([facility]) Systolic blood pressure 140 mm[Hg] 140 mm[Hg] [facility] Diastolic blood pressure 76 mm[Hg] 76 mm[Hg] eCW1 ([facility]) Systolic blood pressure 142 mm[Hg] 142 mm[Hg] e CW1 ([facility]) Body temperature 97.6 [degF] 97.6 [degF] W1 ( [facility]) Respiratory rate 20 /min 20 /min eCW1 ([facility]) Heart rate 99 /min 99 /min eCW1 ([facility]) Body mass index (BMI) [Ratio] 42.38 kg/m2 42.38 kg/m2 W1 ([facility]) Body height 60 [in_us] 60 [in_us] eCW1 ([facility]) Body weight Measured 217 [lb_av] 217 [lb_av] eC W1 ([facility]) Diastolic blood pressure 78 mm[Hg] 78 mm[Hg] eCW1 ([facility]) Systolic blood pressure 138 mm[Hg] 138 mm[Hg] e CW1 ([facility]) Body temperature 97.9 [degF] 97.9 [degF] eCW1 ( [facility]) Respiratory rate 20 /min 20 /min eCW1 ([facility]) Heart rate 80 /min 80 /min eCW1 ([facility]) Body mass index (BMI) [Ratio] 39.84 kg/m2 39.84 kg/m2 eCW1 ([facility]) Body height 60 [in_us] 60 [in_us] eCW1 ([facility]) Body weight Measured 204 [lb_av] 204 [lb_av] eC W1 ([facility]) Diastolic blood pressure--sitting 88 mm[Hg] 88 mm[Hg] MED[facility] ([facility]) large cuff, Ra Systolic blood pressure--sitting 130 mm[Hg] 130 mm[Hg] [facility] ([facility]) large cuff, Ra Heart rate 76 /min 76 /min MED[facility] ([facility]) Body mass index (BMI) [Ratio] 42.4 kg/m2 42.4 k g/m2 [facility] ([facility]) Body height 60 [in_i] 60 [in_i] [facility] ([facility]) 5'0" Body weight 217.00 [lb_av] 217.00 [lb_av] MEDEN T ([facility]) Body weight 97.978 kg 97.978 kg MEDENT ([facility], ) Body mass index (BMI) [Ratio] 42.2 kg/m2 42.2 k g/m2 MEDENT ([facility], ) Body weight 216.00 [lb_av] 216.00 [lb_av] MEDEN T ([facility], ) Body height 60 [in_i] 60 [in_i] MEDENT ([facility], ) 5'0" Body temperature 97.8 [degF] 97.8 [degF] MEDENT ([facility], ) Oxygen saturation in Arterial blood by Pulse oximetry 94 % 94 % [facility] Heart rate 87 /min 87 /min MEDENT ([facility], ) Diastolic blood pressure 80 mm[Hg] 80 mm[Hg] MEDDOROTEO ([facility], ) Systolic blood pressure 123 mm[Hg] 123 mm[Hg] M EDDOROTEO ([facility], ) ID Date Data Source [id number] 07/06/2020 09:56:36 AM EDT [facility] Name Value Range Interpretation Code Description Data Source(s) TRANSFER FROM [facility] Patient Treatment Plan of Care Planned Activity Planned Date Details Description Data Source (s) pantoprazole 20 MG Delayed Release Oral Tablet 10/13/2020 12:00:00 AM EST eCW1 ([facility]) FreeStyle Margie Sensor System - 10/13/2020 12:00:00 AM EST eCW1 ([facility]) FreeStyle Margie [place] - 10/13/2020 12:00:00 AM EST eCW1 ([facility]) FreeStyle Margie [place] - 10/13/2020 12:00:00 AM EST eCW1 ([facility]) pantoprazole 20 MG Delayed Release Oral Tablet 10/13/2020 12:00:00 AM EST eCW1 ([facility]) FreeStyle Margie Sensor System - 10/13/2020 12:00:00 AM EST eCW1 ([facility]) Cyclobenzaprine hydrochloride 5 MG Oral Tablet 07/22/2020 12:00:00 AM EDT eCW1 ([facility]) Sertraline 25 MG Oral Tablet 07/22/2020 12:00:00 AM EDT eCW1 ([facility]) Sertraline 25 MG Oral Tablet 07/22/2020 12:00:00 AM EDT eCW1 ([facility]) Cyclobenzaprine hydrochloride 5 MG Oral Tablet 07/22/2020 12:00:00 AM EDT eCW1 ([facility]) Sertraline 25 MG Oral Tablet 07/22/2020 12:00:00 AM EDT eCW1 ([facility]) Cyclobenzaprine hydrochloride 5 MG Oral Tablet 07/22/2020 12:00:00 AM EDT eCW1 ([facility]) Sertraline 25 MG Oral Tablet 07/22/2020 12:00:00 AM EDT eCW1 ([facility]) Cyclobenzaprine hydrochloride 5 MG Oral Tablet 07/22/2020 12:00:00 AM EDT eCW1 ([facility]) Sertraline 25 MG Oral Tablet 07/22/2020 12:00:00 AM EDT eCW1 ([facility]) Cyclobenzaprine hydrochloride 5 MG Oral Tablet 07/22/2020 12:00:00 AM EDT eCW1 ([facility]) gabapentin 100 MG Oral Capsule 01/21/2020 12:00:00 AM EDT eCW1 ([facility]) gabapentin 100 MG Oral Capsule 01/21/2020 12:00:00 AM EDT eCW1 ([facility]) gabapentin 100 MG Oral Capsule 01/21/2020 12:00:00 AM EDT eCW1 ([facility]) Glucometer 11/21/2019 12:00:00 AM EST e CW1 ([facility]) Albuterol 0.833 MG/ML / Ipratropium Hobbs 0.167 MG/M L Inhalant Solution 11/20/2019 12:00:00 AM EST eCW1 ([facility]) 200 ACTUAT Albuterol 0.09 MG/ACTUAT Metered Dose Inhal er [Ventolin] 11/20/2019 12:00:00 AM EST eCW1 ([facility]) 200 ACTUAT Albuterol 0.09 MG/ACTUAT Metered Dose Inhal er [Ventolin] 11/20/2019 12:00:00 AM EST eCW1 ([facility]) Albuterol 0.833 MG/ML / Ipratropium Hobbs 0.167 MG/M L Inhalant Solution 11/20/2019 12:00:00 AM EST eCW1 ([facility]) Amlodipine 2.5 MG Oral Tablet 11/20/2019 12:00:00 AM EST eCW1 ([facility]) Hydralazine Hydrochloride 10 MG Oral Tablet 11/20/2019 12:00:00 AM EST eCW1 ([facility]) Hydralazine Hydrochloride 10 MG Oral Tablet 11/20/2019 12:00:00 AM EST eCW1 ([facility]) Hydralazine Hydrochloride 10 MG Oral Tablet 11/20/2019 12:00:00 AM EST eCW1 ([facility]) Amlodipine 2.5 MG Oral Tablet 11/20/2019 12:00:00 AM EST eCW1 ([facility])
--- NOTE | 2020-11-26 21:59 | SMCUROLCON ---
Urology Consultation General Date of Consultation 11/26/20 Reason For Consultation This patient is seen for Right Upj Calculus. History of Present Illness The patient is a 65-year-old female who presented to the emergency room for left-sided flank pain. She states that this began about midnight this morning and has not eased. She had some breakfast but has not been able to eat or drink since then. She finally presented to emergency room for evaluation. A CT scan shows that she has a 5 mm calculus at the left UPJ area with some renal edema, perinephric stranding and fluid collection and mild hydronephrosis. She is diabetic but does not smoke and has no past history of renal calculi. Past Medical History Medical History Diabetes Chronic kidney disease stage IV Surgical Hstory Bilateral inguinal hernias Bilateral hip replacement Cataracts Neck and back surgery Social History Social History Patient is single and lives alone * Smoker: non-smoker Alcohol: Denies Drugs: denies Medications Current Medications Current Medications Medications (Trade) Dose Ordered Sig/Stephane Route PRN Reason Start Time Stop Time Status Last Admin Dose Admin Home Med (Med Rec Complete!) ASDIRECTED XX 11/26/20 19:40 11/26/20 19:38 DC Morphine Sulfate (Morphine Sulfate Inj) 4 mg Q30M PRN IV SEVERE PAIN (PS 8-10) 11/26/20 15:35 11/26/20 16:43 Sodium Chloride 1,000 ml @ 100 mls/hr Q10H IV 11/26/20 18:55 11/26/20 19:18 Allergies Allergies: Coded Allergies: Penicillins (Verified Allergy, Intermediate, HIVES, 11/26/20) doxycycline (Verified Allergy, Unknown, 03/30/19) Review of Systems General: Reports: Malaise Constitutional: Denies: Fever, Chills, Sweats, Weakness, Malaise Eyes: Denies: Pain, Vision change ENT: Denies: Head Aches, Sore Throat, Epistaxis Skin: Denies: Rash, Lesions, Breakdown, Nail Changes Pulmonary: Denies: Dyspnea, Cough Cardiovascular: Denies Chest Pain, Denies Palpitations Gastrointestinal: Denies: Nausea, Vomiting, Abdominal Pain Genitourinary: Denies: Dysuria, Frequency, Incontinence, Hematuria Hematologic: Denies: Bruising, Bleeding Excessively Endocrine: Denies: Polydipsia, Polyphagia, Polyuria Musculoskeletal: Denies: Neck Pain, Back Pain Neurological: Denies: Weakness, Numbness, Incoordination, Change in Speech Psych: Reports: Mood Normal; Denies: Anxiety, Depression Physical Examination General Exam: Cooperative, Moderate Distress EYE EXAM: PERRLA, Conjunctiva & lids normal, EOMI; No: Sclera icteric ENT EXAM: Atraumatic, Mucous membr. moist/pink, Pharynx Normal Neck Exam: Supple; No: JVD, thyromegaly Chest Exam: Clear to auscultation, Normal air movement Heart Exam: Rate Normal, Regular Rhythm, Normal S1, Normal S2; No: Murmurs, Rubs Abdomen Exam: Normal Bowel Sounds Female Exam Left-sided CVA tenderness Extremity Exam: Normal Pulses; No: Clubbing, Cyanosis, Edema Skin Exam: Nl turgor and temperature; No: Rash, Breakdown Neuro Exam: Normal Gait, Normal Speech, Cranial Nerves 3-12 NL, Reflexes 2+ Psych Exam: Mental status NL, Mood NL, Oriented x 3 Vital Signs/I&O Vital Signs Date Time Temp Pulse Resp B/P (MAP) Pulse Ox O2 Delivery O2 Flow Rate FiO2 11/26/20 21:27 97.3 70 20 142/68 (92) 93 Room Air Laboratory Data 24H Labs Laboratory Tests 2 11/26/20 16:13: Immature Granulocyte % (Auto) 0.4, Neutrophils (%) (Auto) 84.6H, Lymphocytes (%) (Auto) 7.9L, Monocytes (%) (Auto) 6.9, Eosinophils (%) (Auto) 0.0, Basophils (%) (Auto) 0.2, Neutrophils # (Auto) 7.7, Lymphocytes # (Auto) 0.7L, Monocytes # (Auto) 0.6, Eosinophils # (Auto) 0.0, Basophils # (Auto) 0.0, Nucleated Red Blood Cells % (auto) 0.0, Total Bilirubin 0.4, Direct Bilirubin 0.1, Aspartate Amino Transf (AST/SGOT) 9, Alanine Aminotransferase (ALT/SGPT) 52, Alkaline Phosphatase 119H, Total Protein 7.0, Albumin 3.6, Albumin/Globulin Ratio 1.1L, Lipase 201 11/26/20 16:19: POC Glucose (Misc Panel) 347H, POC Sodium (Misc Panel) 138, POC Potassium (Misc Panel) 4.3, POC Chloride (Misc Panel) 107, POC Total CO2 (Misc Panel) 21.0L, POC Blood Urea Nitrogen (Misc Panel 58H, POC Ionized Calcium (Misc Panel) 4.8, POC Creatinine (Misc Panel) 2.6H, POC Hematocrit (Misc Panel) 34.0L 11/26/20 19:18: Coronavirus (COVID-19)(PCR) NEGATIVE, Influenza Type A (RT-PCR) NEGATIVE, Influenza Type B (RT-PCR) NEGATIVE, Respiratory Syncytial Virus (PCR) NEGATIVE 11/26/20 19:28: Urine Color YELLOW, Urine Appearance CLOUDYH, Urine pH 5.0, Urine Specific [place] 1.012, Urine Protein 3+H, Urine Glucose (UA) 3+H, Urine Ketones NEGATIVE, Urine Blood 1+H, Urine Nitrite NEGATIVE, Urine Bilirubin NEGATIVE, Urine Urobilinogen 0.2, Urine Leukocyte Esterase NEGATIVE, Urine WBC (Auto) 5H, Urine RBC (Auto) 2, Urine Hyaline Casts (Auto) 0, Urine Bacteria (Auto) NEGATIVE, Urine Squamous Epithelial Cells 0, Urine Amorphous Sediment SMALLH, Urine Mucus (Auto) SMALL, Urine Sperm (Auto) CBC/BMP Laboratory Tests 11/26/20 16:13 Assessment Obstructing left UPJ calculus with a second stone in the left lower calyx. She also has renal edema, perinephric stranding perinephric and periureteral fluid collection. Plan Because of the patient's obstructing stone and the significant findings on CAT scan, the patient will be brought to the operating room for a stent insertion. Once the edema, stranding and possible ureteritis and pyelonephritis have been resolved, she can be brought back to the operating room for a ureteroscopic laser lithotripsy. Time Spent on Consult: Time Spent / Consult (Minutes): 70 RACIEL DILLON MD Nov 26, 2020 21:58
[2020-11-26] MEDS ORDERED: fentaNYL 100 MCG/2 ML INJECTION (J3010) As Ordered ONE (22:18)
[2020-11-26] MEDS ORDERED: dexameTHASONE 4 MG/ML 1ML VIAL (J1100 PER 1MG) As Ordered ONE (22:18)
[2020-11-26] MEDS ORDERED: LIDOCAINE 2% 100MG/5ML SDV (FOR ANES.) As Ordered ONE (22:18)
[2020-11-26] MEDS ORDERED: ONDANSETRON 4MG/2ML VIAL As Ordered ONE (22:18)
[2020-11-26] MEDS ORDERED: propofoL 200 MG/20 ML VIAL As Ordered ONE (22:18)
[2020-11-26] MEDS ORDERED: MIDAZOLAM INJ 2MG/2ML VIAL (J2250 PER 1MG) As Ordered ONE (22:18)
[2020-11-26] MEDS ORDERED: ePHEDrine SULFATE 25 MG/5 ML(5MG/ML) SYRINGE As Ordered ONE (22:26)
[2020-11-26] MEDS ORDERED: ACETAMINOPHEN 1000MG 100ML IV BTL (OFIRMEV) (J0131 PER 10MG) As Ordered ONE (22:28)
[2020-11-26] MEDS ORDERED: ONDANSETRON 4MG/2ML VIAL IV PRN (22:55)
[2020-11-26] MEDS ORDERED: fentaNYL 100 MCG/2 ML INJECTION (J3010) IV PRN (22:55)
[2020-11-26] MEDS ORDERED: METOCLOPRAMIDE INJ 10MG/2ML VIAL (J2765 PER 1) IV PRN (22:55)
--- NOTE | 2020-11-26 23:07 | ROOPDOC ---
[facility] Report Of Operation Report of Operation DATE OF PROCEDURE: 11/26/20 PREPROCEDURE DIAGNOSES: Obstructing left UPJ calculus POSTPROCEDURE DIAGNOSES: Same PROCEDURE: Cystoscopy, left retrograde pyelogram and stent insertion, x-ray interpretation SURGEON: Sameer Huerta MD REFRIGERATION LEAD: None ANESTHESIA: Gen. ESTIMATED BLOOD LOSS: Approximately 0 mL. COMPLICATIONS: None REMARKS: Small intrarenal pelvis PROCEDURE NOTE: Patient was brought to the operating room for stent insertion because of a 5 or 6 mm obstructing UPJ calculus with renal edema and perinephric stranding in a diabetic patient DESCRIPTION OF PROCEDURE: Patient was placed on the table in the supine position, given general anesthesia, placed in lithotomy position, prepped and draped in usual fashion and timeout was performed. A 22 Swedish cystoscope was then inserted into the meatus and advanced under direct vision of a 30 lens to the bladder. The bladder was examined and the mucosa appeared normal. The left Ureteral orifice was then catheterized with a 5 Swedish Pollack catheter. Retrograde injection of Conray showed a normal ureter and obstructing UPJ area. A wire guide and the Pollack catheter were then advanced up to the renal pelvis and the stone was dislodged. The catheter was removed leaving the wire in place. A 5 Swedish double-J stent was then passed over the wire and curled well in the renal pelvis and in the bladder when the wire was removed. Bladder was then drained, cystoscope was removed and the patient was awakened and sent to recovery in stable condition having tolerated procedure well. Fluoroscopy was used and interpreted throughout the case to identify the stone and past stents The patient will need ureteroscopic laser lithotripsy in 2 or more weeks. SAMEER HUERTA MD Nov 26, 2020 23:07
[2020-11-26] MEDS ORDERED: IBUPROFEN 600MG TAB PO PRN (23:15)
[2020-11-26] MEDS ORDERED: LR 1,000 ML IV SCH (23:15)
[2020-11-27] VITALS (7 sets, daily range): BP systolic 159–170; BP diastolic 65–84
[2020-11-27] MEDS: **UNRESOLVED NON-FORMULARY MED ORDER XX SCH ×6 (00:04→08:54)
[2020-11-27] MEDS: GABAPENTIN 100 MG CAP PO SCH ×2 (00:22→08:38)
[2020-11-27] MEDS: NORCO, ANEXSIA 5/325MG TABLET (HYDROcodone/ACETAMINOPHEN) PO PRN ×2 (00:23→08:47)
[2020-11-27] MEDS: **hydrALAZINE** 10 MG TAB PO SCH ×2 (00:23→08:38)
[2020-11-27] MEDS: MORPHINE 4 MG/ML 1ML VIAL/SYRINGE (J2270) IV PRN (04:28)
[2020-11-27] MEDS ORDERED: CHLORTHALIDONE 12.5MG PER 1/2 TABLET PO SCH (09:00)
[2020-11-27] MEDS ORDERED: SERTRALINE HCL 25 MG TABLET PO SCH (09:00)
[2020-11-27] MEDS ORDERED: bisoproloL fumarate 10 MG TAB PO SCH (09:00)
--- NOTE | 2020-11-27 10:03 | REP ---
INDICATION: Left UPJ CALCULUS. COMPARISON: None. TECHNIQUE: Single C-arm view abdomen and pelvis. FINDINGS: Contrast partially opacifies the left pelvocaliceal system, which appears duplicated. There appears to be a left ureteral stent, the proximal end is in the region of the left renal pelvis. The distal end is not visualized. IMPRESSION: 46 seconds fluoroscopy time utilized. <Electronically signed by Cameron Mortensen > 11/27/20 0959
[2020-11-27] MEDS ORDERED: LEVEMIR (INSULIN DETEMIR) 1 UNITS/0.01ML SC SCH (21:00)
[2020-11-28] MEDS ORDERED: CALCITRIOL 0.25 MCG CAP (S0169) PO SCH (09:00)
== END 2020-11-27 10:45 | disposition home or self-care (01) ==
LOC: M ED 15:04 → M SDC 15:05 → M MS5PR 21:50 → ENRESERV 23:02 → M SDC 11-27 10:45
PROVIDERS: ATTEND Urology
DX: N20.1 Calculus of ureter (principal); I12.9 Hypertensive chronic kidney disease with stage 1 through stage 4 chronic kidney disease, or unspecified chronic kidney disease; N18.30 Chronic kidney disease, stage 3 unspecified; I50.9 Heart failure, unspecified; E78.5 Hyperlipidemia, unspecified; G47.30 Sleep apnea, unspecified; J44.9 Chronic obstructive pulmonary disease, unspecified; E11.9 Type 2 diabetes mellitus without complications; Z88.0 Allergy status to penicillin; Z79.899 Other long term (current) drug therapy
CPT/HCPCS: 52332; 74176; 74420; 80047; 80076; 81001; 83690; 85025; 87086; 87631; 94664; 96361; 96365; 96375; 96376; 99285; C1769; C2617; J0131; J0696; J1100; J2250; J2270; J2405; J3010; Q9961

== ENCOUNTER → 2020-12-02 | Outpatient (REF) | payer MEDICARE ==
[~2020-12-02] MED LIST changes: +BUME0.5T2 PO; +SERT25TA85 PO
[2020-12-02 17:31] LABS: AMORPHOUS SEDIMENT SMALL (NEGATIVE); APPEARANCE, URINE CLEAR (CLEAR); BACTERIA, URINE AUTO 1+ (NEGATIVE); BILIRUBIN, URINE AUTO NEGATIVE (NEGATIVE); BLOOD, URINE BLOOD 3+ (NEGATIVE); COLOR, URINE STRAW (YELLOW); GLUCOSE, URINE (UA) AUTO 1+ mg/dL (NEGATIVE); KETONE, URINE AUTO NEGATIVE (NEGATIVE); LEUKOCYTE ESTERASE, URINE AUTO 1+ (NEGATIVE); MUCUS, URINE SMALL (NEGATIVE); NITRITE, URINE AUTO NEGATIVE (NEGATIVE); PROTEIN, URINE AUTO 2+ mg/dL (NEGATIVE); RBC, URINE AUTO 54 /HPF (0-3); SPECIFIC GRAVITY URINE AUTO 1.012 (1.002-1.035); SQUAMOUS EPITHELIAL CELL UR AU 1 /HPF (0-6); UROBILINOGEN, URINE AUTO 0.2 mg/dL (0.0-2.0); WBC, URINE AUTO 13 /HPF (0-3)
[2020-12-02 17:52] LABS: CALCIUM LEVEL 8.8 MG/DL (8.8-10.2); CREATININE FOR GFR 2.06 MG/DL (0.55-1.30); GLOMERULAR FILTRATION RATE 25.7 (>45); POTASSIUM SERUM 4.2 MEQ/L (3.5-5.1)
== END ==
LOC: M SFHCPLAZ 14:56
PROVIDERS: ATTEND Family Medicine
DX: N18.30 Chronic kidney disease, stage 3 unspecified (principal); R35.0 Frequency of micturition

== ENCOUNTER → 2020-12-20 | Outpatient (CLI) | payer MEDICARE ==
--- NOTE | 2020-12-20 10:52 | REPMRS ---
Patient History The patient states she has not had a clinical breast exam in over a year. Family history of endometrial cancer at age 14 in maternal cousin, breast cancer at age 50 or over in maternal aunt, breast cancer at age 50 or over in maternal cousin. Benign radio exam breast specimen of the left breast, May 31, 2016. Benign stereotatic loc for ea lesion of the left breast, May 31, 2016. Took hormonal contraceptives for 10 years. Digital Woman Screen Mammo: December 20, 2020 - Exam #: [id number] Bilateral CC and MLO view(s) were taken. Technologist: Radha Novak, Technologist Prior study comparison: October 18, 2017, bilateral digital mammo screening bilat, performed at [facility]. March 31, 2016, left breast digital mammo diagnostic unilateral, performed at [facility]. January 02, 2012, bilateral bilat screen digital mammo, performed at [facility] ([facility]). FINDINGS: The breast tissue is heterogeneously dense. This may lower the sensitivity of mammography. There is a moderate amount of heterogeneously dense fibroglandular tissue which is fairly symmetric. There is no interval development of dominant mass, architectural distortion, or grouped microcalcification typical of malignancy. There has been no change in the appearance of the mammogram from the prior studies. 3-D tomosynthesis shows no additional findings. Assessment: BI-RADS/ACR category 1 mammogram. Negative Mammogram. Recommendation Routine screening mammogram of both breasts in 1 year (for women over age 40). This patient's [facility] Lifetime Breast Cancer RIsk is estimated at 12.5 %. This mammogram was interpreted with the aid of an FDA-approved computer-aided dectection system. Electronically Signed By: Bobby Corrales MD 12/20/20 0559
== END ==
LOC: M WHC 09:05
PROVIDERS: ATTEND Family Medicine
DX: Z12.31 Encounter for screening mammogram for malignant neoplasm of breast (principal)

== ENCOUNTER → 2020-12-27 | Outpatient (CLI) | payer MEDICARE ==
--- NOTE | 2020-12-27 12:30 | REPPI ---
INDICATION: RENAL CALCULUS COMPARISON: 06/27/2020 TECHNIQUE: PA and lateral. FINDINGS: The mediastinum and cardiac silhouette are normal. The lung jaquez demonstrate stable chronic without acute consolidation, effusion, or pneumothorax. The skeletal structures are intact and normal. IMPRESSION: No acute cardiopulmonary process. <Electronically signed by Alden Ramon > 12/27/20 [id number]
== END ==
LOC: M PLAIMG 11:06
PROVIDERS: ATTEND Urology
DX: N20.0 Calculus of kidney (principal)

== ENCOUNTER → 2020-12-27 | Outpatient (REF) | payer MEDICARE ==
[2020-12-27 15:39] LABS: HEMATOCRIT 35.9 % (36.0-47.0); HEMOGLOBIN 11.3 g/dl (12.0-15.5); MEAN CORPUSCULAR HEMOGLOBIN 27.5 pg (27.0-33.0); MEAN CORPUSCULAR HGB CONC 31.5 g/dl (32.0-36.5); MEAN CORPUSCULAR VOLUME 87.3 fl (80.0-96.0); PLATELET COUNT, AUTOMATED 263 10^3/uL (150-450); RED BLOOD COUNT 4.11 10^6/uL (4.00-5.40); WHITE BLOOD COUNT 7.5 10^3/uL (4.0-10.0)
[2020-12-27 15:57] LABS: CREATININE FOR GFR 2.33 MG/DL (0.55-1.30); GLOMERULAR FILTRATION RATE 22.3 (>45); POTASSIUM SERUM 4.5 MEQ/L (3.5-5.1)
== END ==
LOC: M PLALAB 11:10
PROVIDERS: ATTEND Urology
DX: N20.0 Calculus of kidney (principal)

== ENCOUNTER → 2020-12-31 | Outpatient (REF) | payer MEDICARE ==
[~2020-12-31] MED LIST changes: +FLOM0.4C39 PO; +TRAM50TA2 PO
== END ==
LOC: M SMT 13:32
PROVIDERS: ATTEND Urology
DX: N20.0 Calculus of kidney (principal)

== ENCOUNTER → 2021-01-01 | Outpatient (CLI) | payer MEDICARE ==
[~2021-01-01] MED LIST changes: -FLOM0.4C39 PO; -TRAM50TA2 PO
== END ==
LOC: M LABSMTC 08:42
PROVIDERS: ATTEND Anesthesiology
DX: Z01.812 Encounter for preprocedural laboratory examination (principal); Z20.822 Contact with and (suspected) exposure to COVID-19

== ENCOUNTER → 2021-01-03 | Outpatient (REF) | payer MEDICARE ==
[~2021-01-03] MED LIST changes: +FLOM0.4C39 PO; +TRAM50TA2 PO
[2021-01-03 17:56] LABS: APPEARANCE, URINE CLOUDY (CLEAR); BACTERIA, URINE AUTO NEGATIVE (NEGATIVE); BILIRUBIN, URINE AUTO NEGATIVE (NEGATIVE); BLOOD, URINE BLOOD 3+ (NEGATIVE); COLOR, URINE YELLOW (YELLOW); GLUCOSE, URINE (UA) AUTO NEGATIVE (NEGATIVE); KETONE, URINE AUTO NEGATIVE (NEGATIVE); LEUKOCYTE ESTERASE, URINE AUTO 1+ (NEGATIVE); NITRITE, URINE AUTO NEGATIVE (NEGATIVE); PROTEIN, URINE AUTO 2+ mg/dL (NEGATIVE); RBC, URINE AUTO 178 /HPF (0-3); SPECIFIC GRAVITY URINE AUTO 1.013 (1.002-1.035); SQUAMOUS EPITHELIAL CELL UR AU 0 /HPF (0-6); UROBILINOGEN, URINE AUTO 0.2 mg/dL (0.0-2.0); WBC, URINE AUTO 10 /HPF (0-3)
== END ==
LOC: M SMT 16:45
PROVIDERS: ATTEND Nurse Practitioner Women's Health
DX: N20.0 Calculus of kidney (principal)

== ENCOUNTER 2021-01-06 06:44 | Day surgery (SDC) | payer MEDICARE ==
[~2021-01-06] VITALS: Ht 149.9 cm; Wt 82.6 kg
[~2021-01-06 06:44] MED LIST changes: -FLOM0.4C39 PO; -TRAM50TA2 PO
[2021-01-06] MEDS ORDERED: LR 1,000 ML IV ONE (07:00)
[2021-01-06] MEDS ORDERED: ceFAZolin SOD 2 GM in IV 1 EA IV ONE (07:00)
[2021-01-06] MEDS ORDERED: MIDAZOLAM INJ 2MG/2ML VIAL (J2250 PER 1MG) As Ordered ONE (07:07)
[2021-01-06] MEDS ORDERED: fentaNYL 100 MCG/2 ML INJECTION (J3010) As Ordered ONE (07:07)
--- NOTE | 2021-01-06 07:47 | REP ---
INDICATION: KIDNEY STONE- KUB PRIOR TO SDC. COMPARISON: Abdomen pelvis CT of 11/26/2020 and portable abdomen dated 07/02/2020. TECHNIQUE: Single AP supine view of the abdomen. FINDINGS: There is a left ureteral stent is a change from the prior studies. The distal pigtails in satisfactory position in the pelvis. The proximal pigtail appears partially within the left renal pelvis and partially at the left UPJ. No calcifications are projected over the left or the right kidneys. There are several calcifications in the pelvis on the left, not present previously, that appear to be along the course of the distal stent. The bowel gas pattern is normal. There is degenerative disc disease throughout the lumbar spine, unchanged. There are bilateral total hip arthroplasties, unchanged. IMPRESSION: Left ureteral stent as described. Pelvic calcifications on the left as described. <Electronically signed by Cameron Matamoros > 01/06/21 1829
[2021-01-06] MEDS ORDERED: LIDOCAINE 2% 100MG/5ML SDV (FOR ANES.) As Ordered ONE (08:42)
[2021-01-06] MEDS ORDERED: propofoL 200 MG/20 ML VIAL As Ordered ONE (08:42)
[2021-01-06] MEDS ORDERED: LevoFLOXacin 500MG/100ML IV BAG (J1956 PER 250MG) As Ordered ONE (09:19)
[2021-01-06] MEDS ORDERED: LevoFLOXacin IV 500 MG in IV 1 EA IV ONE (09:35)
[2021-01-06] MEDS ORDERED: FLOM0.4C39 PO (09:47)
[2021-01-06] MEDS ORDERED: TRAM50TA2 PO (09:47)
[2021-01-06] MEDS ORDERED: PHENYLephrine 500MCG 5ML (100MCG/ML) SYRINGE As Ordered ONE (09:50)
[2021-01-06] MEDS ORDERED: ePHEDrine SULFATE 25 MG/5 ML(5MG/ML) SYRINGE As Ordered ONE (09:50)
[2021-01-06 10:40] VITALS: BP 190/92
[2021-01-06] MEDS ORDERED: ONDANSETRON 4MG/2ML VIAL IV PRN (10:55)
[2021-01-06] MEDS ORDERED: PERCOCET 5MG/325MG TAB PO PRN (10:55)
[2021-01-06] MEDS ORDERED: LR 1,000 ML IV SCH (10:55)
--- NOTE | 2021-01-06 10:55 | RO ---
OPERATIVE NOTE DATE OF OPERATION: 01/06/2021 PREOPERATIVE DIAGNOSIS: Left kidney stones. POSTOPERATIVE DIAGNOSIS: Left kidney stones. PROCEDURE: Left extracorporeal shock wave lithotripsy. SURGEON: Jasper Howard MD GEOSPATIAL INFORMATION TECHNOLOGIST: None. ANESTHESIA: MAC. OPERATIVE INDICATIONS: This is a 65-year-old female who underwent left ureteral stent placement for an obstructing 3 mm left ureteropelvic junction stone. Also on CT scan she was noted to have approximately 1 cm size stone in lower pole calyx. She is brought to the operating room today for treatment of the stones. DESCRIPTION OF PROCEDURE: The patient was brought to the operating room and MAC anesthesia was administered. Prophylactic antibiotics were infused. She was placed in the supine position in preparation for left-sided extracorporeal shock wave lithotripsy. Ultrasonography was utilized to monitor stone position and fragmentation throughout the procedure. Of note, the previously seen 3 mm stone was not seen, indicating that she likely passed the stone. We were able to identify the 1 cm lower pole stone. Then shock waves were delivered to this lower pole stone ungated. There were no arrhythmias. The stone did appear to fragment well. After 2500 shocks the procedure was concluded. The patient was awakened from anesthesia and transported to the recovery room in stable condition. ESTIMATED BLOOD LOSS: 0 mL. COMPLICATIONS: None. SPECIMEN: None. PLAN: The patient will follow up in urology clinic in a few weeks with imaging prior to assess residual stone burden. Assuming no significant stone burden is seen will take her stent out at that time. VICTOR HUGO
== END 2021-01-06 11:45 | disposition home or self-care (01) ==
LOC: M SDC 06:44
PROVIDERS: ATTEND Urology
DX: N20.0 Calculus of kidney (principal); I11.9 Hypertensive heart disease without heart failure; I50.9 Heart failure, unspecified; E78.5 Hyperlipidemia, unspecified; G47.33 Obstructive sleep apnea (adult) (pediatric); D64.9 Anemia, unspecified; E11.9 Type 2 diabetes mellitus without complications; Z79.4 Long term (current) use of insulin; Z79.899 Other long term (current) drug therapy; F41.9 Anxiety disorder, unspecified; F32.9 Major depressive disorder, single episode, unspecified; Z87.891 Personal history of nicotine dependence; Z88.0 Allergy status to penicillin; Z88.1 Allergy status to other antibiotic agents
CPT/HCPCS: 50590; 74018; J1956; J2250; J2370; J3010

== ENCOUNTER → 2021-02-07 | Outpatient (CLI) | payer MEDICARE ==
[~2021-02-07] MED LIST changes: +FLOM0.4C39 PO; +TRAM50TA2 PO
--- NOTE | 2021-02-07 12:25 | REPPI ---
INDICATION: N20.0 RENAL CALCULUS. COMPARISON: 01/06/2021. TECHNIQUE: Two AP views abdomen and pelvis. FINDINGS: Left ureteral stent is unchanged in position. Vascular calcifications are seen in the left pelvis. No other abnormal calcifications are visualized in the abdomen or pelvis. Moderate fecal material seen throughout the colon. No dilated small bowel loops are seen. There are degenerative changes of the spine. There are bilateral hip prostheses. IMPRESSION: Left ureteral stent unchanged in position. Multiple vascular calcifications in the left pelvis. <Electronically signed by Cameron Mortensen > 02/07/21 1226
== END ==
LOC: M PLAIMG 10:30
PROVIDERS: ATTEND Urology
DX: N20.0 Calculus of kidney (principal); Z96.0 Presence of urogenital implants

== ENCOUNTER → 2021-02-11 | Outpatient (CLI) | payer MEDICARE ==
--- NOTE | 2021-02-11 09:30 | REPPI ---
INDICATION: TYPE 2 DIABETES COMPARISON: 12/27/2020. TECHNIQUE: PA/Lateral FINDINGS: Lungs: There is no acute infiltrate. There is mild bibasilar fibrotic scarring which is stable. Heart: There is mild cardiomegaly. Mediastinum: There is mild calcification of the thoracic aorta. The mediastinal silhouette is unchanged. Pleural angles: Unremarkable.. Bones and soft tissues: There are mild degenerative changes of the spine with no compression deformity. Metallic plate and screws are seen in the lower cervical spine. IMPRESSION: No acute pulmonary disease. <Electronically signed by Cameron Mortensen > 02/11/21 0926
== END ==
LOC: M PLAIMG 08:38
PROVIDERS: ATTEND Family Medicine
DX: I51.7 Cardiomegaly (principal); E11.22 Type 2 diabetes mellitus with diabetic chronic kidney disease

== ENCOUNTER → 2021-02-11 | Outpatient (REF) | payer MEDICARE ==
[2021-02-11 11:18] LABS: HEMATOCRIT 37.3 % (36.0-47.0); HEMOGLOBIN 11.9 g/dl (12.0-15.5); MEAN CORPUSCULAR HEMOGLOBIN 27.8 pg (27.0-33.0); MEAN CORPUSCULAR HGB CONC 31.9 g/dl (32.0-36.5); MEAN CORPUSCULAR VOLUME 87.1 fl (80.0-96.0); PLATELET COUNT, AUTOMATED 255 10^3/uL (150-450); RED BLOOD COUNT 4.28 10^6/uL (4.00-5.40); WHITE BLOOD COUNT 8.8 10^3/uL (4.0-10.0)
[2021-02-11 11:38] LABS: HEMOGLOBIN A1c 7.3 %
[2021-02-11 11:44] LABS: CREATININE FOR GFR 2.15 MG/DL (0.55-1.30); GLOMERULAR FILTRATION RATE 24.5 (>45); POTASSIUM SERUM 4.5 MEQ/L (3.5-5.1)
== END ==
LOC: M SFHCPLAZ 08:38
PROVIDERS: ATTEND Family Medicine
DX: Z01.818 Encounter for other preprocedural examination (principal); E11.22 Type 2 diabetes mellitus with diabetic chronic kidney disease

== ENCOUNTER → 2021-02-17 | Outpatient (CLI) | payer MEDICARE | LOC: M LABSMTC 12:44 | PROVIDERS: ATTEND Ophthalmology Retina Specialist | DX: Z20.828 Contact with and (suspected) exposure to other viral communicable diseases (principal); Z11.59 Encounter for screening for other viral diseases ==

== ENCOUNTER 2021-03-28 15:50 | Inpatient (IN) | payer MEDICARE ==
[~2021-03-28] VITALS: Ht 149.9 cm; Wt 85.1 kg
[~2021-03-28 15:50] MED LIST changes: +ERGO500029 PO; -VITA50005 PO
--- NOTE | 2021-03-28 16:24 | REP ---
INDICATION: DYSPNEA/COUGH COMPARISON: 02/11/2021 TECHNIQUE: Portable AP view of the chest FINDINGS: The mediastinum and cardiac silhouette are stable and within normal limits for portable technique. The lung jaquez are clear without acute consolidation, effusion, or pneumothorax. Skeletal structures are intact. IMPRESSION: No acute cardiopulmonary process appreciated. <Electronically signed by Alden Ramon > 03/28/21 [id number]
[2021-03-28] MEDS ORDERED: IPRATROPIUM 0.5MG/ALBUTEROL 2.5MG INH SOL UD 3ML (DUONEB) NEB ONE (16:55)
[2021-03-28 17:08] LABS: VENOUS HCO3 18.8 MEQ/L (23.0-27.0); VENOUS O2 SATURATION 95.5 % (60.0-80.0); VENOUS PARTIAL PRESSURE CO2 30.1 mmHg (38.0-50.0); VENOUS PARTIAL PRESSURE O2 78.6 mmHg (30.0-50.0); VENOUS PH 7.413 UNITS (7.330-7.430); VENOUS STANDARD HCO3 20.3 MEQ/L; VENOUS TOTAL CO2 19.7 MEQ/L (24.0-28.0)
[2021-03-28 17:10] LABS: BASO % 0.3 % (0.0-1.0); EOS # 0.2 10^3/uL (0.0-0.5); EOS % 2.3 % (0.0-3.0); HEMATOCRIT 28.5 % (36.0-47.0); LYMPH # 0.7 10^3/uL (1.5-5.0); LYMPH % 10.8 % (24.0-44.0); MEAN CORPUSCULAR HEMOGLOBIN 27.7 pg (27.0-33.0); MEAN CORPUSCULAR HGB CONC 31.6 g/dl (32.0-36.5); MEAN CORPUSCULAR VOLUME 87.7 fl (80.0-96.0); MONO # 0.6 10^3/uL (0.0-0.8); MONO % 9.4 % (2.0-8.0); NEUTROPHILS # 4.9 10^3/uL (1.5-8.5); NEUTROPHILS % 76.7 % (36.0-66.0); PLATELET COUNT, AUTOMATED 176 10^3/uL (150-450); RED BLOOD COUNT 3.25 10^6/uL (4.00-5.40); WHITE BLOOD COUNT 6.4 10^3/uL (4.0-10.0)
[2021-03-28 17:55] LABS: RSV AMPLIFICATION NEGATIVE (NEGATIVE)
[2021-03-28 18:13] LABS: ALBUMIN 2.9 GM/DL (3.2-5.2); ALT/SGPT 18 U/L (12-78); BILIRUBIN,DIRECT < 0.1 MG/DL (0.0-0.2); BILIRUBIN,TOTAL 0.3 MG/DL (0.2-1.0); BLOOD UREA NITROGEN 58 MG/DL (7-18); CALCIUM LEVEL 8.4 MG/DL (8.8-10.2); CARBON DIOXIDE LEVEL 20 MEQ/L (21-32); CHLORIDE LEVEL 113 MEQ/L (98-107); CREATININE FOR GFR 2.41 MG/DL (0.55-1.30); GLOMERULAR FILTRATION RATE 21.5 (>45); GLUCOSE, FASTING 134 MG/DL (70-100); NT-PRO BNP 4567 PG/ML (<125); POTASSIUM SERUM 4.5 MEQ/L (3.5-5.1); SODIUM LEVEL 143 MEQ/L (136-145); TROPONIN I < 0.02 NG/ML (< 0.10)
[2021-03-28] MEDS ORDERED: LEVE1INJ5 SC (18:58)
[2021-03-28] MEDS ORDERED: AMLO2.5T3 PO (18:58)
[2021-03-28] MEDS ORDERED: DEXTROSE 50% 50 ML SYRINGE IV PRN (19:20)
[2021-03-28] MEDS ORDERED: FUROSEMIDE 40MG/4ML VIAL (J1940) IV ONE (19:20)
[2021-03-28] MEDS ORDERED: GLUCAGON INJ 1MG VIAL SC PRN (19:20)
[2021-03-28] MEDS ORDERED: GLUCOSE 4GM CHEW TABLET PO PRN (19:20)
--- NOTE | 2021-03-28 19:22 | HPEPDOC ---
[facility] Medical History & Physical Date of Admission Mar 28, 2021 Date of Service: Mar 28, 2021 Attending Physician: DENIZ GARCIA MD History and Physical CHIEF COMPLAINT: [65 y/o female c/o SOB x3 days] HISTORY OF PRESENT ILLNESS: [This is a 65 y/o female with a pmh of HFpEF, HLD, HTN, COPD, GERD, IDDM2, CKD4 who presents to the ED with worsening sob for about 3 days duration. patient states that before three days ago she felt totally find but has now developed sob that is worse with exertion. patient states that she is at this time only able to ambulate 6-10 steps before becoming winded. Patient states that she has also developed a non productive cough and swollen lower extremities. Patient at this time also endorses some b/l back and flank pain that she states is new as well. Patient states that she recently had stents placed for nephrolithiasis in december but these were removed in january. Pt feels as though the pain is new. Patient at this time denies fever, chills, chest pain, abd pain, n/v/d/c, syncope, recent falls, dysuria, hematuria.] PAST MEDICAL HISTORY: 1. [See HPI PAST SURGICAL HISTORY: 1. [C spine fusion]. 2. [B/l inguinal hernia repair]. 3. Left breast biopsy 4. Left hip total arthroplasty. SOCIAL HISTORY: Tobacco use:[Denies] ETOH: [Denies] Illicit drug use: [Denies] FAMILY HISTORY: CAD, CHF, DM ALLERGIES: Please see below. REVIEW OF SYSTEMS: CONSTITUTIONAL: [See HPI]. HEENT: [See HPI]. CARDIOVASCULAR: [See HPI]. RESPIRATORY: [See HPI]. GASTROINTESTINAL: [See HPI]. GENITOURINARY: [See HPI]. SKIN: [Denies rash]. MUSCULOSKELETAL: [See HPI]. NEUROLOGICAL: [Denies syncope, paresthesias]. ENDOCRINE: [Hx of IDDM2]. HEMATOLOGIC/LYMPHATIC: [Denies easy bruising.]. HOME MEDICATIONS: Please see below. PHYSICAL EXAMINATION: VITAL SIGNS: Please see below GENERAL APPEARANCE: [This is a 65 y/o female who appear to have some increased work of breathing]. HEENT: [No mass or lesion. EOMI. No scleral icterus. Nares patent. Oral mucosa moist.]. CARDIOVASCULAR: [Regular rate, rhythm. No murmurs, rubs, gallops]. LUNGS: [Decreased lung sounds throughout, crackles at b/l bases]. ABDOMEN: [Soft, nontender]. MUSCULOSKELETAL: [No joint deformity]. EXTREMITIES: [Lower extremities grossly edematous to the thighs. Pitting edema. No overlying skin changes. Pulses palpable]. NEUROLOGICAL: [Sensation intact. Speech clear. A+Ox3. No focal deficits]. PSYCHIATRIC: [Mood and affect appear appropriate.]. LABORATORY DATA: See below. IMAGING: [CXR: FINDINGS: The mediastinum and cardiac silhouette are stable and within normal limits for portable technique. The lung jaquez are clear without acute consolidation, effusion, or pneumothorax. Skeletal structures are intact. IMPRESSION: No acute cardiopulmonary process appreciated. Chest CT: FINDINGS: Thyroid: Thyroid nodules are incompletely imaged but appear stable. Lungs: Small area of airspace consolidation and dependent atelectasis in both lung bases. Other areas of ground-glass airspace opacities throughout both lungs with some areas of mild linear interstitial thickening. Airways are clear. No masses are seen. Pleural spaces: No pleural effusion or pneumothorax. Heart: Normal heart size. No pericardial effusion. Aorta: Unremarkable. No aortic aneurysm. Lymph nodes: Several mildly enlarged mediastinal lymph nodes are present measuring up to 1.9 cm. No hilar adenopathy. Bones/joints: Skeletal degenerative changes are noted. Soft tissues: Unremarkable. IMPRESSION: 1. Ground-glass airspace opacities may be due to atypical or viral pneumonia versus pulmonary edema. Possible superimposed left basilar pneumonia. 2. Probable reactive small mediastinal lymph nodes. Vascular US: FINDINGS: Right deep veins: Unremarkable. The common femoral, femoral, proximal profunda femoral and popliteal veins are patent without thrombus. Normal Doppler waveforms. Normal compressibility and/or augmentation response. Right superficial veins: Saphenofemoral junction is patent without thrombus. Left deep veins: Unremarkable. The common femoral, femoral, proximal profunda femoral and popliteal veins are patent without thrombus. Normal Doppler waveforms. Normal compressibility and/or augmentation response. Left superficial veins: Saphenofemoral junction is patent without thrombus. Soft tissues: Unremarkable. IMPRESSION: No evidence of deep vein thrombosis. ] MICROBIOLOGY: Please see below. ASSESSMENT: [This is a 65 y/o female with a pmh of HFpEF, HLD, HTN, COPD, GERD, IDDM2, CKD4 who presents to the ED with worsening sob for about 3 days duration. patient states that before three days ago she felt totally find but has now developed sob that is worse with exertion. patient states that she is at this time only able to ambulate 6-10 steps before becoming winded. Workup in the ED shows elevated bnp of 4500.]. . PLAN: 1. [Acute on chronic diastolic chf - Patient obviously fluid overloaded on exam, has elevated bnp. - Chest ct performed today showing pulmonary edema vs. viral pneumonia. In this setting, patient has no white count, fever, tachycardia. At this time it seems much more likely to be pulmonary edema secondary to fluid overload - Will begin diuresis. 40mg iv lasix given in the ed. will begin lasix 40mg bid - is and os - 1500cc fluid restrict - supplemental o2 titrated to >90 - will repeat troponins to r/o acs - admit to pcu with tele for diuresis 2. Back pain - Likely related to fluid overload - Renal us has been ordered to r/o hydro - ua ordered 3. DM - continue at home basal insulin - sliding scale, hypoglycemic protocol - continue gabapentin 4. COPD - does not appear to be the source of patients symptoms. no wheezing on exam - continue at home inhalers 5.CKD4 - cr at baseline - dr. pena, nephrology, has been consulted for assistance with kidney function and diuresis. assistance is greatly appreciated. 6. HTN - continue hydralazine, amlodipine, bisoprolol 7. HLD - continue ezetimibe, atorvastatin 8. Depression - continue zoloft DVT prophylaxis - heparin q8h]. Vital Signs Vital Signs Date Time Temp Pulse Resp B/P (MAP) Pulse Ox O2 Delivery O2 Flow Rate FiO2 03/28/21 18:00 71 164/77 (106) 96 Nasal Cannula 2.0 03/28/21 15:50 98.4 18 Laboratory Data Labs 24H Laboratory Tests 2 03/28/21 16:59: Immature Granulocyte % (Auto) 0.5, Neutrophils (%) (Auto) 76.7H, Lymphocytes (%) (Auto) 10.8L, Monocytes (%) (Auto) 9.4H, Eosinophils (%) (Auto) 2.3, Basophils (%) (Auto) 0.3, Neutrophils # (Auto) 4.9, Lymphocytes # (Auto) 0.7L, Monocytes # (Auto) 0.6, Eosinophils # (Auto) 0.2, Basophils # (Auto) 0.0, Nucleated Red Blood Cells % (auto) 0.0, Blood Gas Bicarbonate Standard 20.3, Venous Blood pH 7.413, Venous Blood Partial Pressure CO2 30.1L, Venous Blood Partial Pressure O2 78.6H, Venous Blood Total Carbon Dioxide 19.7L, Venous Blood HCO3 18.8L, Venous Blood Oxygen Saturation 95.5H, Venous Blood Base Excess -5.0L, Anion Gap 10, Glomerular Filtration Rate 21.5L, Lactic Acid Level 0.5, Calcium Level 8.4L, Total Bilirubin 0.3, Direct Bilirubin < 0.1, Aspartate Amino Transf (AST/SGOT) 7, Alanine Aminotransferase (ALT/SGPT) 18, Alkaline Phosphatase 60, Troponin I < 0.02, LG-Ryu-N-Type Natriuretic Peptide 4567H, Total Protein 6.0L, Albumin 2.9L, Albumin/Globulin Ratio 0.9L, Thyroid Stimulating Hormone (TSH) 1.670, Coronavirus (COVID-19)(PCR) NEGATIVE, Influenza Type A (RT-PCR) NEGATIVE, Influenza Type B (RT-PCR) NEGATIVE, Respiratory Syncytial Virus (PCR) NEGATIVE 03/28/21 19:09: CBC/BMP Laboratory Tests 03/28/21 16:59 Microbiology Microbiology 03/28/21 Blood Culture, Received Pending 03/28/21 Blood Culture, Received Pending Home Medications Scheduled Amlodipine Besylate (Amlodipine Besylate) 2.5 Mg Tablet, 2.5 MG PO DAILY Atorvastatin Calcium (Atorvastatin Calcium) 80 Mg Tab, 80 MG PO QHS Bisoprolol Fumarate (Bisoprolol Fumarate) 10 Mg Tablet, 10 MG PO DAILY Bumetanide (Bumetanide) 0.5 Mg Tablet, 0.5 MG PO DAILY Calcitriol (Calcitriol) 0.25 Mcg Capsule, 0.25 MCG PO DAILY Chlorthalidone (Chlorthalidone) 25 Mg Tablet, 12.5 MG PO DAILY Dulaglutide (Trulicity) 1.5 Mg/0.5 Ml Pen.injctr, 1.5 MG SC 1XWK INJECT ON THURSDAYS Ezetimibe (Ezetimibe) 10 Mg Tablet, 10 MG PO QHS Fluticasone Furoate (Arnuity Ellipta) 200 Mcg Blst.w.dev, 1 PUFF INH DAILY Gabapentin (Gabapentin) 100 Mg Capsule, 100 MG PO BID Hydralazine HCl (Hydralazine HCl) 10 Mg Tablet, 10 MG PO BID Insulin Aspart (Novolog Flexpen) 100 Unit/1 Ml Insuln.pen, 1 DOSE SC AC PER SLIDING SCALE Insulin Detemir (Levemir) 100 Unit/1 Ml Vial, 34 UNITS SC QHS Salmeterol (Serevent Diskus) 50 Mcg Blst.w.dev, 1 PUFF INH BID Sertraline Hcl (Sertraline HCl) 25 Mg Tablet, 25 MG PO DAILY Umeclidinium Halfway (Incruse Ellipta) 62.5 Mcg Blst.w.dev, 1 PUFF INH DAILY Scheduled PRN Albuterol Sulfate (Proair Hfa) 108 Mcg/Act Aer, 2 PUFFS INH Q4H PRN for SHORTNESS OF BREATH Ipratropium/Albuterol Sulfate (Iprat-Albut 0.5-3(2.5) mg/3 ml) 3 Ml Ampul.neb, 1 VIAL NEB QID PRN for SOB/WHEEZING Allergies Coded Allergies: Penicillins (Verified Allergy, Intermediate, HIVES, 11/26/20) doxycycline (Verified Allergy, Unknown, 03/30/19) A-FIB/CHADSVASC A-FIB History Current/History of A-Fib/PAF?: No LUCY MENA Mar 28, 2021 19:22
[2021-03-28 19:51] LABS: PERCENT SATURATION 5.8 % (13.2-45.0)
[2021-03-28] MEDS: FLUTICASONE HFA 220 MCG 12 GM INHALER (FLOVENT) INH SCH (20:00)
[2021-03-28] MEDS: SALMETEROL DISKUS 50MCG INHALER (SEREVENT) INH SCH (20:00)
--- NOTE | 2021-03-28 20:02 | REPVR ---
PROCEDURE INFORMATION: Exam: CT Chest Without Contrast; Diagnostic Exam date and time: 03/28/2021 6:37 PM Age: 65 years old Clinical indication: Shortness of breath; Additional info: SOB TECHNIQUE: Imaging protocol: Diagnostic computed tomography of the chest without contrast. 3D rendering (Not supervised by radiologist): MIP and/or 3D reconstructed images were created by the technologist. Radiation optimization: All CT scans at this facility use at least one of these dose optimization techniques: automated exposure control; mA and/or kV adjustment per patient size (includes targeted exams where dose is matched to clinical indication); or iterative reconstruction. COMPARISON: CT Chest without contrast 08/24/2020 8:39 AM FINDINGS: Thyroid: Thyroid nodules are incompletely imaged but appear stable. Lungs: Small area of airspace consolidation and dependent atelectasis in both lung bases. Other areas of ground-glass airspace opacities throughout both lungs with some areas of mild linear interstitial thickening. Airways are clear. No masses are seen. Pleural spaces: No pleural effusion or pneumothorax. Heart: Normal heart size. No pericardial effusion. Aorta: Unremarkable. No aortic aneurysm. Lymph nodes: Several mildly enlarged mediastinal lymph nodes are present measuring up to 1.9 cm. No hilar adenopathy. Bones/joints: Skeletal degenerative changes are noted. Soft tissues: Unremarkable. IMPRESSION: 1. Ground-glass airspace opacities may be due to atypical or viral pneumonia versus pulmonary edema. Possible superimposed left basilar pneumonia. 2. Probable reactive small mediastinal lymph nodes. COMMENTS: 1. Consistent with the [employer]'s Incidental Findings Committee white paper (J Am Juliano Radiol 2015): In patients aged 35 years and older with an incidental thyroid nodule equal to or greater than 1.[address], MRI or extrathyroidal US, further evaluation with dedicated thyroid US is recommended for patients with normal life expectancy and without comorbidities. For smaller nodules without suspicious features, no further evaluation or follow up is recommended. 2. . Electronically signed by: Mehran Rosales On 03/28/2021 20:01:36 PM
--- NOTE | 2021-03-28 20:27 | REPVR ---
PROCEDURE INFORMATION: Exam: US Duplex Lower Extremity Veins, Bilateral Exam date and time: 03/28/2021 8:18 PM Age: 65 years old Clinical indication: Edema, localized; Lower extremity, bilateral; Additional info: Le edema R/O dvt TECHNIQUE: Imaging protocol: Real-time duplex ultrasound of the extremities with 2-D velasquez scale, color Doppler flow and spectral waveform analysis with image documentation. Complete exam focused on the bilateral lower extremity veins. COMPARISON: RENAL US 07/10/2019 2:23 PM FINDINGS: Right deep veins: Unremarkable. The common femoral, femoral, proximal profunda femoral and popliteal veins are patent without thrombus. Normal Doppler waveforms. Normal compressibility and/or augmentation response. Right superficial veins: Saphenofemoral junction is patent without thrombus. Left deep veins: Unremarkable. The common femoral, femoral, proximal profunda femoral and popliteal veins are patent without thrombus. Normal Doppler waveforms. Normal compressibility and/or augmentation response. Left superficial veins: Saphenofemoral junction is patent without thrombus. Soft tissues: Unremarkable. IMPRESSION: No evidence of deep vein thrombosis. Electronically signed by: Mehran Rosales On 03/28/2021 20:27:24 PM
--- NOTE | 2021-03-28 20:31 | REPVR ---
PROCEDURE INFORMATION: Exam: US Retroperitoneal Limited, Kidneys Exam date and time: 03/28/2021 8:18 PM Age: 65 years old Clinical indication: Condition or disease; Kidney or ureter condition; Chronic kidney disease or failure; Ckd stage 3 (moderate); Additional info: Acute on ckd3-4 R/O hydronephrosis TECHNIQUE: Imaging protocol: Real-time ultrasound of the retroperitoneum with image documentation. Examination was focused on the kidneys. COMPARISON: CT ABD PELVIS W/O CONTRAST 11/26/2020 5:38 PM FINDINGS: Right kidney: 7 mm cyst in the right kidney. Normal renal cortical thickness. No masses or hydronephrosis. Right kidney measures 10.3 cm. Left kidney: Normal cortical thickness and echotexture. No stones. No hydronephrosis. Bladder: Urinary bladder is unremarkable. IMPRESSION: 1. 7 mm simple cyst in the right kidney. 2. Otherwise normal renal ultrasound. Electronically signed by: Mehran Rosales On 03/28/2021 20:31:11 PM
[2021-03-28] MEDS ORDERED: hydrALAZINE 20MG/ML 1ML VIAL (J0360 PER 20MG) IV STA (21:20)
[2021-03-28 21:52] VITALS: BP 184/74
[2021-03-28] MEDS: HumaLOG INSULIN (NovoLOG) PER UNIT SC SCH (22:03)
[2021-03-28] MEDS ORDERED: ALBUTEROL 90 MCG/ACT 8GM HFA INHALER INH PRN (22:25)
[2021-03-28] MEDS ORDERED: IPRATROPIUM 0.5MG/ALBUTEROL 2.5MG INH SOL UD 3ML (DUONEB) NEB PRN (22:25)
--- NOTE | 2021-03-28 22:45 | ECGEPIP ---
[facility] - ED Test Date: 2021-03-28 Pat Name: CELI JOHNSON Department: Room: - Gender: Female Disability Benefits Specialist: HC : [id number] Requested By: Kourtney Dillard Order Number: [id number] Reading MD: Abhijeet Martinez Measurements Intervals [place] Rate: 75 P: 46 GA: 186 QRS: -13 QRSD: 90 T: 110 QT: 374 QTc: 417 Interpretive Statements Normal sinus rhythm Delayed anterior R wave progression Minimal voltage criteria for LVH, may be normal variant ( Calixto product ) Possible Anterior infarct , age undetermined Similar to tracing done 06-27-20 Electronically Signed on 03-28-2021 22:45:48 EDT by Abhijeet Martinez
[2021-03-28] MEDS: LEVEMIR (INSULIN DETEMIR) 1 UNITS/0.01ML SC SCH (22:48)
[2021-03-28] MEDS: ATORVASTATIN 20 MG TAB PO SCH (22:49)
[2021-03-28] MEDS: **hydrALAZINE** 10 MG TAB PO SCH (22:49)
[2021-03-28] MEDS: EZETIMIBE 10 MG TAB (ZETIA) PO SCH (22:49)
[2021-03-28] MEDS: GABAPENTIN 100 MG CAP PO SCH (22:49)
[2021-03-28 23:16] LABS: APPEARANCE, URINE CLEAR (CLEAR); BACTERIA, URINE AUTO 1+ (NEGATIVE); BILIRUBIN, URINE AUTO NEGATIVE (NEGATIVE); BLOOD, URINE BLOOD NEGATIVE (NEGATIVE); COLOR, URINE COLORLESS (YELLOW); GLUCOSE, URINE (UA) AUTO NEGATIVE (NEGATIVE); KETONE, URINE AUTO NEGATIVE (NEGATIVE); LEUKOCYTE ESTERASE, URINE AUTO TRACE (NEGATIVE); NITRITE, URINE AUTO NEGATIVE (NEGATIVE); PROTEIN, URINE AUTO 1+ mg/dL (NEGATIVE); RBC, URINE AUTO 1 /HPF (0-3); SPECIFIC GRAVITY URINE AUTO 1.005 (1.002-1.035); SQUAMOUS EPITHELIAL CELL UR AU 2 /HPF (0-6); UROBILINOGEN, URINE AUTO 0.2 mg/dL (0.0-2.0); WBC, URINE AUTO 12 /HPF (0-3)
[2021-03-29 00:11] VITALS: BP 164/76
[2021-03-29 00:43] LABS: CK-MB VALUE MASS 1.2 NG/ML (<3.6); CPK CREATINE PHOSPHOKINASE 66 U/L (26-192); MB/CK RELATIVE INDEX 1.82 (< OR =4); TROPONIN I < 0.02 NG/ML (< 0.10)
[2021-03-29 03:09] VITALS: BP 111/54
[2021-03-29 05:34] LABS: HEMATOCRIT 26.4 % (36.0-47.0); HEMOGLOBIN 8.5 g/dl (12.0-15.5); MEAN CORPUSCULAR HEMOGLOBIN 28.2 pg (27.0-33.0); MEAN CORPUSCULAR HGB CONC 32.2 g/dl (32.0-36.5); MEAN CORPUSCULAR VOLUME 87.7 fl (80.0-96.0); PLATELET COUNT, AUTOMATED 163 10^3/uL (150-450); RED BLOOD COUNT 3.01 10^6/uL (4.00-5.40); WHITE BLOOD COUNT 4.9 10^3/uL (4.0-10.0)
[2021-03-29 05:59] LABS: BLOOD UREA NITROGEN 57 MG/DL (7-18); CARBON DIOXIDE LEVEL 25 MEQ/L (21-32); CHLORIDE LEVEL 112 MEQ/L (98-107); CK-MB VALUE MASS < 1.0 NG/ML (<3.6); CPK CREATINE PHOSPHOKINASE 58 U/L (26-192); CREATININE FOR GFR 2.45 MG/DL (0.55-1.30); GLOMERULAR FILTRATION RATE 21.1 (>45); GLUCOSE, FASTING 174 MG/DL (70-100); MB/CK RELATIVE INDEX 1.72 (< OR =4); POTASSIUM SERUM 3.7 MEQ/L (3.5-5.1); SODIUM LEVEL 143 MEQ/L (136-145); TROPONIN I < 0.02 NG/ML (< 0.10)
[2021-03-29] MEDS: HEPARIN SOD (PORCINE) 5000UNITS/ML 1ML VIAL/SYRINGE SQ SCH ×3 (06:35→21:19)
[2021-03-29] MEDS: FLUTICASONE HFA 220 MCG 12 GM INHALER (FLOVENT) INH SCH ×2 (07:11→19:24)
[2021-03-29 08:45] VITALS: BP 154/68
[2021-03-29] MEDS ORDERED: FUROSEMIDE 40MG/4ML VIAL (J1940) IV SCH ×2 (09:00→12:00)
[2021-03-29] MEDS ORDERED: PREVNAR 13 VACCINE SYRINGE IM ONE (09:00)
[2021-03-29] MEDS: HumaLOG INSULIN (NovoLOG) PER UNIT SC SCH ×4 (09:45→20:05)
[2021-03-29] MEDS: **hydrALAZINE** 10 MG TAB PO SCH ×2 (09:46→20:03)
[2021-03-29] MEDS: SERTRALINE HCL 25 MG TABLET PO SCH (09:46)
[2021-03-29] MEDS: bisoproloL fumarate 10 MG TAB PO SCH (09:46)
[2021-03-29] MEDS: GABAPENTIN 100 MG CAP PO SCH ×2 (09:47→20:03)
[2021-03-29] MEDS: SALMETEROL DISKUS 50MCG INHALER (SEREVENT) INH SCH ×2 (11:19→19:24)
--- NOTE | 2021-03-29 11:40 | IPNPDOC ---
Text Note Date of Service The patient was seen on 03/29/21. NOTE SUBJECTIVE: -Feels better, but is still winded when she walks to the bathroom, legs are much better with swelling way down. VITAL SIGNS: Please see below GENERAL APPEARANCE: NAD HEENT: No mass or lesions. EOMI. No scleral icterus. Nares patent. Oral mucosa moist CARDIOVASCULAR: Regular rate, rhythm. No murmurs, rubs, gallops LUNGS: Crackles at b/l bases, otherwise clear without wheezing or rhonchi ABDOMEN: obese, soft, NTND EXTREMITIES: Trace LE edema. No overlying skin changes. 2+ DP pulses NEUROLOGICAL: Speech clear. A+Ox3. No focal deficits PSYCHIATRIC: Mood and affect appear appropriate. LABORATORY DATA: Reviewed WBC 4.9 hgb 8.5 platelets 163 na 143 K 3.7 Cr 2.45 IMAGING: CXR: FINDINGS: The mediastinum and cardiac silhouette are stable and within normal limits for portable technique. The lung jaquez are clear without acute consolidation, effusion, or pneumothorax. Skeletal structures are intact. IMPRESSION: No acute cardiopulmonary process appreciated. Chest CT: FINDINGS: Thyroid: Thyroid nodules are incompletely imaged but appear stable. Lungs: Small area of airspace consolidation and dependent atelectasis in both lung bases. Other areas of ground-glass airspace opacities throughout both lungs with some areas of mild linear interstitial thickening. Airways are clear. No masses are seen. Pleural spaces: No pleural effusion or pneumothorax. Heart: Normal heart size. No pericardial effusion. Aorta: Unremarkable. No aortic aneurysm. Lymph nodes: Several mildly enlarged mediastinal lymph nodes are present measuring up to 1.9 cm. No hilar adenopathy. Bones/joints: Skeletal degenerative changes are noted. Soft tissues: Unremarkable. IMPRESSION: 1. Ground-glass airspace opacities may be due to atypical or viral pneumonia versus pulmonary edema. Possible superimposed left basilar pneumonia. 2. Probable reactive small mediastinal lymph nodes. Vascular US: FINDINGS: Right deep veins: Unremarkable. The common femoral, femoral, proximal profunda femoral and popliteal veins are patent without thrombus. Normal Doppler waveforms. Normal compressibility and/or augmentation response. Right superficial veins: Saphenofemoral junction is patent without thrombus. Left deep veins: Unremarkable. The common femoral, femoral, proximal profunda femoral and popliteal veins are patent without thrombus. Normal Doppler waveforms. Normal compressibility and/or augmentation response. Left superficial veins: Saphenofemoral junction is patent without thrombus. Soft tissues: Unremarkable. IMPRESSION: No evidence of deep vein thrombosis. MICROBIOLOGY: Please see below. ASSESSMENT: 65 y/o W with a history of HFpEF, HLD, HTN, COPD, GERD, IDDM2, CKD4 who presented to the ED with worsening sob and peripheral edema for about 3 days duration and was admitted for a CHF exacerbation. PLAN: Acute on chronic diastolic chf - Patient fluid overloaded on exam with elevated bnp. - Chest ct performed today showing pulmonary edema vs. viral pneumonia. In this setting, patient has no white count, fever, tachycardia. Much more likely to be pulmonary edema secondary to fluid overload - Continue lasix 40mg iv lasix bid, goal net negative 2L - I/Os - 1500cc fluid restrict - supplemental o2 titrated to >90 2. Back pain: improved - Renal us without acute pathology - ua with trace leuko esterase 3. DM - continue at home basal insulin - sliding scale, hypoglycemic protocol - continue gabapentin 4. COPD - continue at home inhalers 5.CKD4 - cr at baseline - dr. pena, nephrology, has been consulted for assistance with kidney function and diuresis. assistance is greatly appreciated. 6. HTN - continue hydralazine, amlodipine, bisoprolol 7. HLD - continue ezetimibe, atorvastatin 8. Depression - continue zoloft DVT prophylaxis - heparin q8h VS,Fishbone, I+O VS, Fishbone, I+O Laboratory Tests 03/28/21 16:59 03/29/21 05:15 Vital Signs Date Time Temp Pulse Resp B/P (MAP) Pulse Ox O2 Delivery O2 Flow Rate FiO2 03/29/21 09:46 154/68 03/29/21 09:46 61 03/29/21 08:45 97.3 22 97 Nasal Cannula 2.0 I&O- Last 24 Hours up to 6 AM 03/29/21 06:00 Intake Total 300 ml Output Total 2175 ml Balance -1875 ml MALAIKA GONZALEZ MD Mar 29, 2021 11:40
[2021-03-29 12:00] VITALS: BP 153/69
[2021-03-29] MEDS: IRON SUCROSE 200 MG in NS 100 ML IV SCH (14:53)
[2021-03-29 16:00] VITALS: BP 152/68
[2021-03-29] MEDS: FUROSEMIDE 100MG/10ML VIAL (J1940) IV SCH (18:00)
[2021-03-29 20:00] VITALS: BP 144/65
[2021-03-29] MEDS: LEVEMIR (INSULIN DETEMIR) 1 UNITS/0.01ML SC SCH (20:02)
[2021-03-29] MEDS: EZETIMIBE 10 MG TAB (ZETIA) PO SCH (20:03)
[2021-03-29] MEDS: ATORVASTATIN 20 MG TAB PO SCH (20:03)
--- NOTE | 2021-03-29 23:33 | CR ---
NEPHROLOGY CONSULTATION DATE: 03/29/2021 REQUESTING PHYSICIAN: Dr. Anna Daniels CONSULTING PHYSICIAN: Dr. Sydnie Laurent REASON FOR CONSULTATION: Management of congestive heart failure and acute kidney injury. CHIEF COMPLAINT: The patient presented to the hospital yesterday with progressive shortness of breath. HISTORY OF PRESENT ILLNESS: Ritika Irving is a 65-year-old female with a past medical history of chronic kidney disease stage 4, hypertension, chronic obstructive pulmonary disease, heart failure with preserved ejection fraction and other comorbidities as mentioned below. She was last seen in the Nephrology Clinic more than 3 months ago. The patient reported that she was getting progressive shortness of breath which was getting worse on mild exertion. She was getting lower extremity edema as well. She was having to use a lot of pillows at night and/or sleep in a recliner, so she presented to the Emergency Room. She was admitted under the Hospitalist Service with acute congestive heart failure exacerbation. Her creatinine on arrival was 2.4. Nephrology Service was called for further help in the management of this patient and optimization of fluid status in the setting of chronic kidney disease stage 4. I saw and evaluated the patient today morning at the bedside. She has been started on IV Lasix injections. She reports that she is feeling slightly better today as compared with yesterday. PAST MEDICAL HISTORY: The patient's past medical history is significant for: 1. Chronic kidney disease stage 4. 2. Hypertension. 3. Hyperlipidemia. 4. Chronic obstructive pulmonary disease. 5. Insulin dependent diabetic. 6. Heart failure with preserved ejection fraction. PAST SURGICAL HISTORY: The patient's past surgical history is significant for: 1. History of cervical spine fusion surgery. 2. Bilateral inguinal hernia repair. 3. Left breast biopsy. 4. Left total hip arthroplasty. FAMILY HISTORY: No significant family history of end-stage renal disease. SOCIAL HISTORY: She denies any smoking, illicit abuse or alcohol abuse. ALLERGIES: She is allergic to: 1. Penicillin. 2. Doxycycline. REVIEW OF SYSTEMS: Constitutional: She denies any fevers or chills. Eyes: She denies any blurry vision, double vision. ENT: She denies any dysphagia or odynophagia. Cardiovascular: She reports lower extremity and progressive shortness of breath. Respiratory: She denies any cough or phlegm. Gastrointestinal: She denies any nausea or vomiting. Genitourinary: She denies any dysuria or hematuria. Musculoskeletal: She denies any muscle aches and pains. Skin: He denies any rashes or ulcers. Hematological/Oncological: She denies any easy bleeding or bruising. Endocrine: She reports history of diabetes. WINDOW CUTTER: She denies any syncope or paraesthesias. All other review of systems is negative. PHYSICAL EXAMINATION: GENERAL APPEARANCE: The patient is awake, alert, oriented x3, morbidly obese. VITAL SIGNS: Temperature is 98 degrees Fahrenheit, blood pressure 152/68, pulse is 68, respiratory rate of 22, saturating 94% on nasal cannula at 2 liters. HEAD AND NECK: Extraocular muscles intact. Pupils are equally round and reactive to light. Mucous membranes are moist. Neck is supple. There is mildly elevated jugular venous distention. CARDIOVASCULAR: S1, S2, regular rate. EXTREMITIES: 1+ edema of the bilateral lower extremities. RESPIRATORY: Mildly decreased breath sounds at the bases. Mild inspiratory crackles at the bases. ABDOMEN: Soft, obese, positive bowel sounds. MUSCULOSKELETAL: No clubbing, no cyanosis. Pulses are 2+. WINDOW CUTTER: No focal deficits. Power is 5/5 in all extremities. LAB REVIEW: CBC showed a WBC count of 4.9, hemoglobin 8.5, platelet count 163. BMP showed sodium of 143, potassium 3.7, chloride 112, bicarbonate 25, BUN 57, creatinine is 2.45, calcium is 8. Microbiology blood cultures are all negative so far. IMAGING: A renal ultrasound was done yesterday which showed a 7 mm simple cyst in the right kidney, otherwise normal renal ultrasound. A CT of the chest was done yesterday which showed ground glass air space opacities due to atypical or viral pneumonia versus pulmonary edema. CURRENT INPATIENT MEDICATIONS: The patient's medications were all reviewed by myself. She is currently on Albuterol, Amlodipine 2.5 mg p.o. daily, Lipitor 10 mg q. h.s., Bisoprolol 10 mg p.o. daily, Zetia 10 mg p.o. q. h.s., Lasix 40 mg IV twice daily which I changed to 60 mg IV q. 6 hourly with holding parameters of more than 3 liters negative fluid balance, Gabapentin 100 mg p.o. twice daily, Heparin 5,000 units subcutaneously q. 8 hourly, Hydralazine 10 mg p.o. twice daily, Levemir 34 units subcutaneously q. h.s., insulin Lispro sliding scale, Solu-Medrol one puff twice daily and Zoloft 25 mg p.o. daily. ASSESSMENT AND PLAN: 1. Acute decompensated diastolic congestive heart failure - The patient is getting Lasix 40 mg IV twice daily. I have change the Lasix to 60 mg IV q. 6 hourly for a negative fluid balance of 2 liters a day. If it is more than 3 liters, then the dose would be held. 2. Acute renal failure superimposed on chronic kidney disease - The patient is in decompensated heart failure. Creatinine is stable at 2.4 since yesterday. Okay to continue diuretics at this time. 3. Iron deficiency anemia I have started the patient on IV Venofer. 4. Hypertension - blood pressure is controlled with current regimen. Okay to continue current regimen at this time. 5. Insulin dependent diabetes - continue insulin Levemir and Lispro sliding scale. Avoid use of Metformin because of advanced chronic kidney disease. 6. Chronic obstructive pulmonary disease Clinically no rales or wheezing on exam. Continue home dose of inhalers at this time. MTDD
[2021-03-30] VITALS: BP 132/63
[2021-03-30] MEDS: FUROSEMIDE 100MG/10ML VIAL (J1940) IV SCH ×3 (00:15→15:56)
[2021-03-30 04:00] VITALS: BP 161/72
[2021-03-30] MEDS: HEPARIN SOD (PORCINE) 5000UNITS/ML 1ML VIAL/SYRINGE SQ SCH ×3 (05:53→22:21)
[2021-03-30 05:59] LABS: HEMATOCRIT 28.3 % (36.0-47.0); MEAN CORPUSCULAR HEMOGLOBIN 27.6 pg (27.0-33.0); MEAN CORPUSCULAR HGB CONC 31.8 g/dl (32.0-36.5); MEAN CORPUSCULAR VOLUME 86.8 fl (80.0-96.0); PLATELET COUNT, AUTOMATED 177 10^3/uL (150-450); RED BLOOD COUNT 3.26 10^6/uL (4.00-5.40); WHITE BLOOD COUNT 4.4 10^3/uL (4.0-10.0)
[2021-03-30 06:25] LABS: CALCIUM LEVEL 7.9 MG/DL (8.8-10.2); CREATININE FOR GFR 2.59 MG/DL (0.55-1.30); GLOMERULAR FILTRATION RATE 19.8 (>45); POTASSIUM SERUM 3.5 MEQ/L (3.5-5.1)
[2021-03-30] MEDS: FLUTICASONE HFA 220 MCG 12 GM INHALER (FLOVENT) INH SCH ×2 (07:41→19:23)
[2021-03-30] MEDS: SALMETEROL DISKUS 50MCG INHALER (SEREVENT) INH SCH ×2 (07:41→19:22)
[2021-03-30 08:00] VITALS: BP 192/94
[2021-03-30] MEDS: HumaLOG INSULIN (NovoLOG) PER UNIT SC SCH ×4 (08:55→21:00)
[2021-03-30] MEDS: **hydrALAZINE** 10 MG TAB PO SCH ×2 (08:56→22:21)
[2021-03-30] MEDS: SERTRALINE HCL 25 MG TABLET PO SCH (08:56)
[2021-03-30] MEDS: GABAPENTIN 100 MG CAP PO SCH ×2 (08:56→22:21)
[2021-03-30] MEDS: bisoproloL fumarate 10 MG TAB PO SCH (08:56)
--- NOTE | 2021-03-30 11:53 | IPNPDOC ---
Text Note Date of Service The patient was seen on 03/30/21. NOTE SUBJECTIVE: -Feels much better -Had robust response to the diuretic escalation VITAL SIGNS: Please see below GENERAL APPEARANCE: NAD HEENT: No mass or lesions. EOMI. No scleral icterus. Nares patent. Oral mucosa moist CARDIOVASCULAR: Regular rate, rhythm. No murmurs, rubs, gallops LUNGS: Trace crackles at b/l bases, otherwise clear without wheezing or rhonchi ABDOMEN: obese, soft, NTND EXTREMITIES: No LE edema. No overlying skin changes. 2+ DP pulses NEUROLOGICAL: Speech clear. A+Ox3. No focal deficits PSYCHIATRIC: Mood and affect appear appropriate. LABORATORY DATA: Reviewed WBC 4.4 hgb 9 platelets 177 na 141 K 3.5 Cr 2.59 IMAGING: CXR: FINDINGS: The mediastinum and cardiac silhouette are stable and within normal limits for portable technique. The lung jaquez are clear without acute consolidation, effusion, or pneumothorax. Skeletal structures are intact. IMPRESSION: No acute cardiopulmonary process appreciated. Chest CT: FINDINGS: Thyroid: Thyroid nodules are incompletely imaged but appear stable. Lungs: Small area of airspace consolidation and dependent atelectasis in both lung bases. Other areas of ground-glass airspace opacities throughout both lungs with some areas of mild linear interstitial thickening. Airways are clear. No masses are seen. Pleural spaces: No pleural effusion or pneumothorax. Heart: Normal heart size. No pericardial effusion. Aorta: Unremarkable. No aortic aneurysm. Lymph nodes: Several mildly enlarged mediastinal lymph nodes are present measuring up to 1.9 cm. No hilar adenopathy. Bones/joints: Skeletal degenerative changes are noted. Soft tissues: Unremarkable. IMPRESSION: 1. Ground-glass airspace opacities may be due to atypical or viral pneumonia versus pulmonary edema. Possible superimposed left basilar pneumonia. 2. Probable reactive small mediastinal lymph nodes. Vascular US: FINDINGS: Right deep veins: Unremarkable. The common femoral, femoral, proximal profunda femoral and popliteal veins are patent without thrombus. Normal Doppler waveforms. Normal compressibility and/or augmentation response. Right superficial veins: Saphenofemoral junction is patent without thrombus. Left deep veins: Unremarkable. The common femoral, femoral, proximal profunda femoral and popliteal veins are patent without thrombus. Normal Doppler waveforms. Normal compressibility and/or augmentation response. Left superficial veins: Saphenofemoral junction is patent without thrombus. Soft tissues: Unremarkable. IMPRESSION: No evidence of deep vein thrombosis. MICROBIOLOGY: Please see below. ASSESSMENT: 65 y/o W with a history of HFpEF, HLD, HTN, COPD, GERD, IDDM2, CKD4 who pre sented to the ED with worsening sob and peripheral edema for about 3 days duration and was admitted for a CHF exacerbation. PLAN: Acute on chronic diastolic chf - Patient fluid overloaded on exam with elevated bnp. - Chest ct performed today showing pulmonary edema vs. viral pneumonia. In this setting, patient has no white count, fever, tachycardia. Much more likely to be pulmonary edema secondary to fluid overload - On lasix 60mg iv Q6H, switched to Q8H dosing now, goal net negative 2L - I/Os - 1500cc fluid restrict - supplemental o2 titrated to >90 2. Back pain: improved - Renal us without acute pathology - ua with trace leuko esterase but otherwise negative 3. DM - continue at home basal insulin - sliding scale, hypoglycemic protocol - continue gabapentin 4. COPD - continue at home inhalers 5.CKD4 - cr at baseline - dr. Laurent, nephrology, adjusting diuretics 6. HTN - continue hydralazine, amlodipine, bisoprolol 7. HLD - continue ezetimibe, atorvastatin 8. Depression - continue zoloft DVT prophylaxis - heparin q8h VS,Fishbone, I+O VS, Fishbone, I+O Laboratory Tests 03/30/21 05:16 Vital Signs Date Time Temp Pulse Resp B/P (MAP) Pulse Ox O2 Delivery O2 Flow Rate FiO2 03/30/21 08:00 192/94 (126) 03/30/21 07:58 97.5 60 18 96 Room Air 03/29/21 20:00 2.0 I&O- Last 24 Hours up to 6 AM 03/30/21 06:00 Intake Total 1220 ml Output Total 3050 ml Balance -1830 ml MALAIKA GONZALEZ MD Mar 30, 2021 08:26
[2021-03-30 12:02] VITALS: BP 138/62
--- NOTE | 2021-03-30 12:33 | IPN ---
NEPHROLOGY PROGRESS NOTE DATE: 03/30/2021 SUBJECTIVE: Patient was seen and examined at the bedside today morning. She is afebrile, hemodynamically stable. She reports her breathing is better. Her diuretic dose was increased yesterday. She is making a good amount of urine. OBJECTIVE: VITAL SIGNS: Temperature 97.4 degrees Fahrenheit, blood pressure 138/62, pulse 64, respiratory rate 18, saturating 90% on room air. INTAKE AND OUTPUT: Urine output recorded as 3.1 liter yesterday, 650 mL so far today since overnight. Weight in the bed scale is 85 kg since yesterday, which is not reliable, because it is 10 kg below her weight yesterday.. PHYSICAL EXAMINATION: GENERAL: Patient is awake, alert, oriented times three, laying in bed, no apparent distress. HEAD AND NECK EXAM: Extraocular muscles intact. Pupils equally round and reactive to light. Mucous membranes are moist. Neck is supple. There is no jugular venous distention (JVD). CARDIOVASCULAR: S1, S2. Regular rate. RESPIRATORY: Mildly decreased breath sounds at the bases. ABDOMEN: Soft. Positive bowel sounds. Nontender. No organomegaly MUSCULOSKELETAL: No clubbing or cyanosis. Trace edema of the ankles is noted. CENTRAL NERVOUS SYSTEM (CNC OPERATOR): No focal deficit. Power is 5/5 in all extremities. LABORATORY STUDIES: CBC showed WBC 4.4, hemoglobin 9, platelets 177. BMP showed sodium 141, potassium 3.5, chloride 109, bicarbonate 26, BUN 63, creatinine 2.5, it was 2.4 yesterday. CURRENT INPATIENT MEDICATIONS: Patient's medications were all reviewed by myself. She has been started on intravenous (IV) Venofer. I have decreased the Lasix dose to 60 mg IV every 8 hours. No other significant change in the medications today. ASSESSMENT AND PLAN: 1. Acute decompensated diastolic congestive heart failure. Patient is having a good amount of urine output. Creatinine is slightly bumped up. I have decreased Lasix dose to 60 mg every 8 hours. Continue to monitor intake and output. 2. Acute renal failure superimposed on chronic kidney disease. Patient is volume depleted. A slight bump in the creatinine is noted. Diuretic dose is lowered now. 3. Iron deficiency anemia. Continue IV Venofer. Hemoglobin level is improving. 4. Hypertension. Optimize the fluid status with diuretics. Continue current antihypertensive regimen.
[2021-03-30] MEDS: IRON SUCROSE 200 MG in NS 100 ML IV SCH (13:26)
[2021-03-30 16:07] VITALS: BP 133/59
[2021-03-30 20:00] VITALS: BP 143/65
[2021-03-30] MEDS: ATORVASTATIN 20 MG TAB PO SCH (22:20)
[2021-03-30] MEDS: LEVEMIR (INSULIN DETEMIR) 1 UNITS/0.01ML SC SCH (22:20)
[2021-03-30] MEDS: EZETIMIBE 10 MG TAB (ZETIA) PO SCH (22:23)
[2021-03-31] VITALS: BP 174/75
[2021-03-31] MEDS: FUROSEMIDE 100MG/10ML VIAL (J1940) IV SCH (00:05)
[2021-03-31 04:00] VITALS: BP 148/67
[2021-03-31 05:17] LABS: HEMATOCRIT 29.8 % (36.0-47.0); HEMOGLOBIN 9.4 g/dl (12.0-15.5); MEAN CORPUSCULAR HEMOGLOBIN 27.1 pg (27.0-33.0); MEAN CORPUSCULAR HGB CONC 31.5 g/dl (32.0-36.5); MEAN CORPUSCULAR VOLUME 85.9 fl (80.0-96.0); PLATELET COUNT, AUTOMATED 204 10^3/uL (150-450); RED BLOOD COUNT 3.47 10^6/uL (4.00-5.40); WHITE BLOOD COUNT 5.5 10^3/uL (4.0-10.0)
[2021-03-31 05:39] LABS: CALCIUM LEVEL 7.8 MG/DL (8.8-10.2); CREATININE FOR GFR 2.84 MG/DL (0.55-1.30); GLOMERULAR FILTRATION RATE 17.8 (>45); POTASSIUM SERUM 3.7 MEQ/L (3.5-5.1)
[2021-03-31] MEDS: HEPARIN SOD (PORCINE) 5000UNITS/ML 1ML VIAL/SYRINGE SQ SCH (06:16)
[2021-03-31] MEDS: SALMETEROL DISKUS 50MCG INHALER (SEREVENT) INH SCH (07:32)
[2021-03-31] MEDS: FLUTICASONE HFA 220 MCG 12 GM INHALER (FLOVENT) INH SCH (07:33)
[2021-03-31] MEDS ORDERED: BUME2TAB3 PO (08:34)
--- NOTE | 2021-03-31 08:38 | DS.PDOC ---
Discharge Summary General Date of Admission Mar 28, 2021 at 18:29 Date of Discharge 03/31/2021 Attending Physician: MALAIKA GONZALEZ MD Specialist/Consultants Involve: RASHID ZHU MD Discharge Summary PROCEDURES PERFORMED DURING STAY: None ADMITTING DIAGNOSES: CHF exacerbation DISCHARGE DIAGNOSES: Acute On Chronic Diastolic Chf. COMPLICATIONS/CHIEF COMPLAINT: Acute On Chronic Diastolic Chf. HISTORY OF PRESENT ILLNESS: 65 y/o W with a pmh of HFpEF, HLD, HTN, COPD, GERD, IDDM2, CKD4 who presents to the ED with worsening sob for about 3 days duration with CRESPO and swollen lower extremities, without any report of cesar chest pain, palpitations, fever, chills, abd pain, n/v/d/c, syncope, recent falls, dysuria, hematuria. HOSPITAL COURSE: On evaluation she had LE edema, crackles, and investigations included a CT chest that showed pulmonary edema and an elevated proBNP. She was was subsequently admitted for a CHF exacerbation with stable renal function per her baseline with CKD3. Nephrology was consulted and she had IV diuresis that was escalated to goal output with good effect and return to euvolemia. She is now being discharged home with an escalated dose of home diuretic to 2mg of bumex daily. ALLERGIES: Please see below. PHYSICAL EXAMINATION ON DISCHARGE: VITAL SIGNS: Please see below. GENERAL APPEARANCE: NAD HEENT: No mass or lesions. EOMI. No scleral icterus. Nares patent. Oral mucosa moist CARDIOVASCULAR: Regular rate, rhythm. No murmurs, rubs, gallops LUNGS: CTAB, without crackles, wheezing or rhonchi ABDOMEN: obese, soft, NTND EXTREMITIES: No LE edema. No overlying skin changes. 2+ DP pulses NEUROLOGICAL: Speech clear. A+Ox3. No focal deficits PSYCHIATRIC: Mood and affect appear appropriate. LABORATORY DATA: Please see below. IMAGING: CXR: FINDINGS: The mediastinum and cardiac silhouette are stable and within normal limits for portable technique. The lung jaquez are clear without acute consolidation, effusion, or pneumothorax. Skeletal structures are intact. IMPRESSION: No acute cardiopulmonary process appreciated. Chest CT: FINDINGS: Thyroid: Thyroid nodules are incompletely imaged but appear stable. Lungs: Small area of airspace consolidation and dependent atelectasis in both lung bases. Other areas of ground-glass airspace opacities throughout both lungs with some areas of mild linear interstitial thickening. Airways are clear. No masses are seen. Pleural spaces: No pleural effusion or pneumothorax. Heart: Normal heart size. No pericardial effusion. Aorta: Unremarkable. No aortic aneurysm. Lymph nodes: Several mildly enlarged mediastinal lymph nodes are present measuring up to 1.9 cm. No hilar adenopathy. Bones/joints: Skeletal degenerative changes are noted. Soft tissues: Unremarkable. IMPRESSION: 1. Ground-glass airspace opacities may be due to atypical or viral pneumonia versus pulmonary edema. Possible superimposed left basilar pneumonia. 2. Probable reactive small mediastinal lymph nodes. Vascular US: FINDINGS: Right deep veins: Unremarkable. The common femoral, femoral, proximal profunda femoral and popliteal veins are patent without thrombus. Normal Doppler waveforms. Normal compressibility and/or augmentation response. Right superficial veins: Saphenofemoral junction is patent without thrombus. Left deep veins: Unremarkable. The common femoral, femoral, proximal profunda femoral and popliteal veins are patent without thrombus. Normal Doppler waveforms. Normal compressibility and/or augmentation response. Left superficial veins: Saphenofemoral junction is patent without thrombus. Soft tissues: Unremarkable. IMPRESSION: No evidence of deep vein thrombosis. PROGNOSIS: Good ACTIVITY: As tolerated DIET: consistent carb DISCHARGE PLAN: Home with bumex 2mg daily and close PCP and nephrology follow up DISPOSITION: Home DISCHARGE INSTRUCTIONS: Home with bumex 2mg daily and close PCP and nephrology follow up ITEMS TO FOLLOWUP ON ON OUTPATIENT: CHF CKD DISCHARGE CONDITION: Stable TIME SPENT ON DISCHARGE: 44 minutes. Vital Signs/I&Os Vital Signs Date Time Temp Pulse Resp B/P (MAP) Pulse Ox O2 Delivery O2 Flow Rate FiO2 03/31/21 04:00 96.3 61 15 148/67 (94) 98 Room Air 03/29/21 20:00 2.0 I&O- Last 24 Hours up to 6 AM 03/31/21 06:00 Intake Total 360 ml Output Total 1900 ml Balance -1540 ml Laboratory Data Labs 24H Laboratory Tests 2 03/30/21 12:08: Bedside Glucose (Misc Panel) 192H 03/30/21 17:24: Bedside Glucose (Misc Panel) 204H 03/31/21 04:59: Nucleated Red Blood Cells % (auto) 0.0, Anion Gap 7L, Glomerular Filtration Rate 17.8L, Calcium Level 7.8L CBC/BMP Laboratory Tests 03/31/21 04:59 FSBS Laboratory Tests Test 03/30/21 12:08 03/30/21 17:24 Range/Units Bedside Glucose (Misc Panel) 192 204 80-115 MG/DL Microbiology Microbiology 03/28/21 Blood Culture - Preliminary, Resulted No Growth after 48 hours. All Specime... 03/28/21 Blood Culture - Preliminary, Resulted No Growth after 48 hours. All Specime... Discharge Medications Scheduled Amlodipine Besylate (Amlodipine Besylate) 2.5 Mg Tablet, 2.5 MG PO DAILY, (Reported) Atorvastatin Calcium (Atorvastatin Calcium) 80 Mg Tab, 80 MG PO QHS, (Reported) Bisoprolol Fumarate (Bisoprolol Fumarate) 10 Mg Tablet, 10 MG PO DAILY, (Reported) Bumetanide (Bumetanide) 0.5 Mg Tablet, 0.5 MG PO DAILY, (Reported) Calcitriol (Calcitriol) 0.25 Mcg Capsule, 0.25 MCG PO DAILY, (Reported) Chlorthalidone (Chlorthalidone) 25 Mg Tablet, 12.5 MG PO DAILY, (Reported) Dulaglutide (Trulicity) 1.5 Mg/0.5 Ml Pen.injctr, 1.5 MG SC 1XWK, (Reported) INJECT ON THURSDAYS Ezetimibe (Ezetimibe) 10 Mg Tablet, 10 MG PO QHS, (Reported) Fluticasone Furoate (Arnuity Ellipta) 200 Mcg Blst.w.dev, 1 PUFF INH DAILY, (Reported) Gabapentin (Gabapentin) 100 Mg Capsule, 100 MG PO BID, (Reported) Hydralazine HCl (Hydralazine HCl) 10 Mg Tablet, 10 MG PO BID, (Reported) Insulin Aspart (Novolog Flexpen) 100 Unit/1 Ml Insuln.pen, 1 DOSE SC AC, (Reported) PER SLIDING SCALE Insulin Detemir (Levemir) 100 Unit/1 Ml Vial, 34 UNITS SC QHS, (Reported) Salmeterol (Serevent Diskus) 50 Mcg Blst.w.dev, 1 PUFF INH BID, (Reported) Sertraline Hcl (Sertraline HCl) 25 Mg Tablet, 25 MG PO DAILY, (Reported) Umeclidinium [place] (Incruse Ellipta) 62.5 Mcg Blst.w.dev, 1 PUFF INH DAILY, (Reported) Scheduled PRN Albuterol Sulfate (Proair Hfa) 108 Mcg/Act Aer, 2 PUFFS INH Q4H PRN for SHORTNESS OF BREATH, (Reported) Ipratropium/Albuterol Sulfate (Iprat-Albut 0.5-3(2.5) mg/3 ml) 3 Ml Ampul.neb, 1 VIAL NEB QID PRN for SOB/WHEEZING, (Reported) Allergies Coded Allergies: Penicillins (Verified Allergy, Intermediate, HIVES, 11/26/20) doxycycline (Verified Allergy, Unknown, 03/30/19) MALAIKA GONZALEZ MD Mar 31, 2021 08:38
[2021-03-31 08:42] VITALS: BP 170/74
[2021-03-31] MEDS: HumaLOG INSULIN (NovoLOG) PER UNIT SC SCH ×2 (08:49→12:29)
[2021-03-31 08:50] VITALS: BP 170/74
[2021-03-31] MEDS: bisoproloL fumarate 10 MG TAB PO SCH (08:50)
[2021-03-31] MEDS: GABAPENTIN 100 MG CAP PO SCH (08:50)
[2021-03-31] MEDS: **hydrALAZINE** 10 MG TAB PO SCH (08:50)
[2021-03-31] MEDS: SERTRALINE HCL 25 MG TABLET PO SCH (08:51)
[2021-03-31] MEDS: IRON SUCROSE 200 MG in NS 100 ML IV SCH (12:30)
--- NOTE | 2021-04-01 08:52 | ECHO ---
ECHOCARDIOGRAM DATE OF PROCEDURE: 03/30/2021 Age: 65 Gender: Female Height: 150 cm Weight: 96 kg REFERRING PHYSICIAN: Anna Daniels MD PATIENT LOCATION: Room 3228. INDICATION: 2D MEASUREMENTS: IVS 1.3 cm LV 4.1 cm LVPW 1.6 cm LA 4.4 cm Aorta 2.8 cm IVC 1.6 cm DOPPLER MEASUREMENT Peak velocity across the aortic valve 1.7 m/s Peak velocity across the LVOT 0.78 m/s Peak gradient across the aortic valve 12 mmHg Mean gradient across the aortic valve 5 mmHg Mitral E 0.84 Mitral A 0.87 with a ratio of less than 1.0 2D COMMENTS: 1. Normal left ventricular size with mildly to moderately increased left ventricular wall thickness. Left ventricular systolic function is normal, estimated at 60% to 65%. 2. Mildly enlarged left atrium. Normal right atrium and right ventricle. 3. The atrial septum appeared to be normal without evidence of defect or shunt. 4. Normal aortic root. 5. No pericardial effusion seen. 6. Mildly calcified aortic valve with normal leaflet excursion. Mildly calcified mitral annulus with normal anterior mitral valve leaflet motion. Normal tricuspid valve. The pulmonic valve and proximal pulmonary artery branches were not well visualized. 7. The inferior vena cava was normal in size, central venous pressure is most likely normal. DOPPLER: No significant valvular abnormalities detected. Abnormal relaxation pattern was noted across the mitral valve annulus consistent with features of grade 1 left ventricular diastolic dysfunction. IMPRESSION: 1. Normal global left ventricular systolic function with [id number] concentric left ventricular hypertrophy. There are some features of grade 1 left ventricular diastolic dysfunction manifested by abnormal relaxation. 2. Aortic valve sclerosis with trivial aortic stenosis, but no aortic regurgitation. 3. Mildly dilated left atrium, no evidence of mitral regurgitation or stenosis.
== END 2021-03-31 15:39 | disposition home health service (06) | DRG 291 ==
LOC: M ED 15:50 → M ED INP 18:29 → CANRESERV 20:55 → ENRESERV 20:55 → M PCU 21:52
PROVIDERS: ADMIT Family Medicine; ATTEND Internal Medicine
DX: I13.0 Hypertensive heart and chronic kidney disease with heart failure and stage 1 through stage 4 chronic kidney disease, or unspecified chronic kidney disease (principal); I50.33 Acute on chronic diastolic (congestive) heart failure; N18.4 Chronic kidney disease, stage 4 (severe); N17.9 Acute kidney failure, unspecified; J44.9 Chronic obstructive pulmonary disease, unspecified; K21.9 Gastro-esophageal reflux disease without esophagitis; E11.9 Type 2 diabetes mellitus without complications; Z79.899 Other long term (current) drug therapy; Z88.0 Allergy status to penicillin; Z88.8 Allergy status to other drugs, medicaments and biological substances; Z79.4 Long term (current) use of insulin; F32.9 Major depressive disorder, single episode, unspecified; E78.5 Hyperlipidemia, unspecified; D50.9 Iron deficiency anemia, unspecified

== ENCOUNTER → 2021-04-07 | Outpatient (REF) | payer MEDICARE ==
[~2021-04-07] MED LIST changes: +BUME2TAB3 PO
== END ==
LOC: M LAB REF 17:04
PROVIDERS: ATTEND Internal Medicine Nephrology
DX: E83.42 Hypomagnesemia (principal); N39.0 Urinary tract infection, site not specified

== ENCOUNTER → 2021-05-13 | Outpatient (REF) | payer MEDICARE ==
[2021-05-13 13:51] LABS: PERCENT SATURATION 23.2 % (13.2-45.0)
== END ==
LOC: M LAB REF 12:57
PROVIDERS: ATTEND Internal Medicine Nephrology
DX: D50.9 Iron deficiency anemia, unspecified (principal)

== ENCOUNTER → 2021-05-25 | Outpatient (CLI) | payer MEDICARE ==
[2021-05-25 13:43] LABS: CALCIUM LEVEL 8.7 MG/DL (8.8-10.2); CREATININE FOR GFR 2.11 MG/DL (0.55-1.30); POTASSIUM SERUM 4.5 MEQ/L (3.5-5.1)
[2021-05-25 13:47] LABS: HEMOGLOBIN A1c 7.1 %
== END ==
LOC: M PLALAB 10:48
PROVIDERS: ATTEND Nurse Practitioner Family
DX: E11.22 Type 2 diabetes mellitus with diabetic chronic kidney disease (principal)

== ENCOUNTER → 2021-06-08 | Outpatient (CLI) | payer MEDICARE ==
--- NOTE | 2021-06-08 13:41 | REP ---
INDICATION: CKD IV COMPARISON: None. TECHNIQUE: Real time compression and duplex Doppler evaluation of the Bilateral upper extremity deep venous system is performed. FINDINGS: The Bilateral subclavian, jugular, axillary, brachial, basilic and cephalic veins are fully compressible where accessible with transducer pressure, and demonstrate no intraluminal thrombus and normal venous waveforms. There is no evidence of deep venous thrombosis. Right: Basilic vein size (mm)/ Cephalic vein size (mm) Upper humerus: 5/4 Lower humerus:4/6 Upper forearm: 2/2 Lower forearm/wrist: 1/1 Median cubital:4 Right arterial structures: Peak systolic velocity (cm/s)/waveform/size (mm) Axillary: 114.5/triphasic/5 Brachial: 101.8/triphasic/5 Radial: 90.8/triphasic/2 Ulnar:98.3/triphasic/2 Left: Basilic vein size (mm)/ Cephalic vein size (mm) Upper humerus: 4/4 Lower humerus: 3/3 Upper forearm: 2/2 Lower forearm/wrist:1/2 Median cubital:3 Left arterial structures: Peak systolic velocity (cm/s)/waveform/size (mm) Axillary: 115.7/triphasic/6 Brachial: 113.5/triphasic/3 Radial: 93.7/triphasic/3 Ulnar: 98.7/triphasic/2 IMPRESSION: No evidence of deep venous thrombosis of the Bilateral upper extremity deep vein system. Arterial and venous sizes are given above. <Electronically signed by Cameron Mortensen > 06/08/21 [id number]
== END ==
LOC: M RAD 11:28
PROVIDERS: ATTEND Internal Medicine Nephrology
DX: Z01.818 Encounter for other preprocedural examination (principal); N18.4 Chronic kidney disease, stage 4 (severe); R09.89 Other specified symptoms and signs involving the circulatory and respiratory systems

== ENCOUNTER → 2021-06-09 | Outpatient (CLI) | payer MEDICARE ==
--- NOTE | 2021-06-09 12:00 | REP ---
INDICATION: CALCULUS OF KIDNEY. COMPARISON: 02/07/2021 FINDINGS: KUB shows the intestinal gas pattern to be nonspecific. The organ silhouettes insofar as delineated are unremarkable. There is no evidence of free intraperitoneal air. The stent on the left side has been removed. IMPRESSION: Nonspecific. <Electronically signed by Suraj Kenny > 06/09/21 [id number]
== END ==
LOC: M PLALAB 11:02 → M PLAIMG 11:02
PROVIDERS: ATTEND Nurse Practitioner Women's Health
DX: N20.0 Calculus of kidney (principal)

== ENCOUNTER → 2021-06-23 | Outpatient (CLI) | payer MEDICARE ==
[~2021-06-23] MED LIST changes: +ASPI81TA26 PO
--- NOTE | 2021-06-23 13:44 | REP ---
INDICATION: STENOSIS COMPARISON: 01/07/2018. TECHNIQUE: Real-time ultrasound evaluation and duplex Doppler interrogation of the extracranial carotid vasculature is performed. FINDINGS: There is mild to moderate plaquing and narrowing in both carotid bulbs extending into the internal and external carotid arteries. Luminal narrowing is less than 50%. There is no evidence of hemodynamically significant stenosis of either internal carotid artery. Normal flow velocities are seen. The vertebral arteries demonstrate normal direction of flow. RIGHT LEFT Peak systolic velocity ICA 77.1 cm/s 78.0 cm/s End diastolic velocity ICA 21.4 cm/s 23.5 cm/s Peak systolic velocity CCA 87.4 cm/s 79.5cm/s Peak systolic velocity ECA 112.8 cm/s 83.6 cm/s ICA/CCA ratio 0.88 0.98 IMPRESSION: Bilateral luminal narrowing of the internal carotid arteries less than 50%. No evidence of hemodynamically significant stenosis. <Electronically signed by Cameron Mortensen > 06/23/21 [id number]
== END ==
LOC: M RAD 12:49
PROVIDERS: ATTEND Surgery Vascular Surgery
DX: I65.22 Occlusion and stenosis of left carotid artery (principal)

== ENCOUNTER → 2021-06-24 | Outpatient (CLI) | payer MEDICARE ==
--- NOTE | 2021-06-24 12:37 | REP ---
INDICATION: CHRONIC KIDNEY DISEASE, STAGE 4 (SEVERE). COMPARISON: 03/28/2021 the latest prior a portable exam with older priors as well. TECHNIQUE: PA and lateral FINDINGS: There is cardiomegaly. Chronic fibrotic changes are again seen in the left lung base. A subtle opacity may be developing in the left upper lobe region. Lung jaquez are otherwise clear. The pleural angles are sharp. There is no change in the osseous structures. IMPRESSION: 1. Unchanged left lung base chronic changes. 2. Very subtle finding of possible early left upper lobe airspace disease. This should be correlated clinically with appropriate follow-up. <Electronically signed by Suraj Kenny > 06/24/21 [id number]
== END ==
LOC: M PLAIMG 12:12
PROVIDERS: ATTEND Internal Medicine Nephrology
DX: N18.4 Chronic kidney disease, stage 4 (severe) (principal)

== ENCOUNTER → 2021-06-24 | Outpatient (REF) | payer MEDICARE | LOC: M LAB REF 12:57 | PROVIDERS: ATTEND Internal Medicine Nephrology | DX: N18.4 Chronic kidney disease, stage 4 (severe) (principal) ==

== ENCOUNTER → 2021-07-01 | Outpatient (CLI) | payer MEDICARE | LOC: M LABSMTC 10:49 | PROVIDERS: ATTEND Anesthesiology | DX: Z20.828 Contact with and (suspected) exposure to other viral communicable diseases (principal); Z11.52 Encounter for screening for COVID-19 ==

== ENCOUNTER 2021-07-06 09:56 | Day surgery (SDC) | payer MEDICARE ==
[~2021-07-06] VITALS: Ht 149.9 cm; Wt 96.1 kg
[~2021-07-06 09:56] MED LIST changes: +LIDOCAINE 1% MDV 20ML VIAL SQ PRN; +NS 1,000 ML IV SCH; +UNRESOLVED CLARIFICATION ENTRY XX SCH; +ceFAZolin SOD 2 GM in IV 1 EA IV ONE
[2021-07-06 10:40] LABS: BASO # 0.1 10^3/uL (0.0-0.2); BASO % 0.5 % (0.0-1.0); EOS # 0.2 10^3/uL (0.0-0.5); EOS % 2.1 % (0.0-3.0); HEMATOCRIT 31.3 % (36.0-47.0); LYMPH # 0.9 10^3/uL (1.5-5.0); LYMPH % 9.7 % (24.0-44.0); MEAN CORPUSCULAR HEMOGLOBIN 27.2 pg (27.0-33.0); MEAN CORPUSCULAR HGB CONC 31.9 g/dl (32.0-36.5); MEAN CORPUSCULAR VOLUME 85.3 fl (80.0-96.0); MONO # 0.6 10^3/uL (0.0-0.8); MONO % 5.8 % (2.0-8.0); NEUTROPHILS # 7.8 10^3/uL (1.5-8.5); NEUTROPHILS % 81.5 % (36.0-66.0); PLATELET COUNT, AUTOMATED 237 10^3/uL (150-450); RED BLOOD COUNT 3.67 10^6/uL (4.00-5.40); WHITE BLOOD COUNT 9.5 10^3/uL (4.0-10.0)
[2021-07-06 11:00] LABS: ALBUMIN 3.2 GM/DL (3.2-5.2); BILIRUBIN,TOTAL 0.3 MG/DL (0.2-1.0); CALCIUM LEVEL 8.5 MG/DL (8.8-10.2); CREATININE FOR GFR 2.79 MG/DL (0.55-1.30); GLOMERULAR FILTRATION RATE 18.1 (>45); TOTAL PROTEIN 6.8 GM/DL (6.4-8.2)
[2021-07-06] MEDS ORDERED: LIDOCAINE 2% 100MG/5ML SDV (FOR ANES.) As Ordered ONE (11:18)
[2021-07-06] MEDS ORDERED: MIDAZOLAM INJ 2MG/2ML VIAL (J2250 PER 1MG) As Ordered ONE (11:18)
[2021-07-06] MEDS ORDERED: propofoL 200 MG/20 ML VIAL As Ordered ONE ×2 (11:18→13:53)
[2021-07-06] MEDS ORDERED: fentaNYL 100 MCG/2 ML INJECTION (J3010) As Ordered ONE (11:19)
[2021-07-06] MEDS ORDERED: BUPIVACAINE/EPIN 0.25% 30 ML VIAL As Ordered ONE (11:57)
[2021-07-06] MEDS ORDERED: HEPARIN SOD (PORCINE) 5000UNITS/ML 1ML VIAL/SYRINGE As Ordered ONE ×2 (12:07→13:43)
[2021-07-06] MEDS ORDERED: KETAMINE HCL 200 MG/20 ML VIAL As Ordered ONE (13:27)
[2021-07-06] MEDS ORDERED: ONDANSETRON 4MG/2ML VIAL As Ordered ONE (13:27)
[2021-07-06] MEDS: LIDOCAINE 1% SDV 30ML VIAL As Ordered ONE (13:34)
--- NOTE | 2021-07-06 15:28 | ROOPDOC ---
[facility] Report Of Operation Report of Operation DATE OF PROCEDURE: 07/06/21 PREPROCEDURE DIAGNOSES: End-stage renal disease, Not on hemodialysis yet POSTPROCEDURE DIAGNOSES: End-stage renal disease, Not on hemodialysis yet PROCEDURE PERFORMED: Creation of left proximal forearm cephalic vein-brachial artery AV fistula SURGEON: Kendra Goldberg MD MAT PUNCHER: None ANESTHESIA: MAC, local, Dr Godinez. ESTIMATED BLOOD LOSS: Approximately 25 mL. COMPLICATIONS: None REMARKS: Good thrill and bruit in the fistula, after creation. The left radial pulse was +1 palpable postoperatively. FINDINGS: Patent and good size left cephalic vein. High bifurcation of the brachial artery. The fistula was created, to the superficial of the 2 branches of the brachial artery SPECIMENS REMOVED: None PROCEDURE NOTE: Indication for the procedure: The patient is a 66-year-old lady, with progressive chronic kidney disease, stage V, not on hemodialysis yet. She is anticipated to go on hemodialysis in the next few months, and was referred for creation of AV fistula. She is right- handed. She was noted to have adequate size basilic and cephalic veins, in both the upper arms, on vein mapping. She also had no significant arterial stenosis of the upper extremities. Informed consent was obtained from the patient, for the procedure, after explaining the risk benefits and complications of the procedure, which include but are not limited to bleeding, infection, cardiorespiratory, complications in cluding congestive heart failure, fistula related complications including failure of the fistula to mature, need for additional procedures, venous stenosis, nerve injuries, neuropathy, ischemic complications to the arm and the hand including steal syndrome etc. Alternatives to the procedure including nonoperative treatment and its consequences were explained. The patient understood and consented for the procedure. DESCRIPTION OF PROCEDURE: The patient was identified correctly and placed supine on the operating room table. Intravenous sedation with monitored anesthetic care was administered. The left arm was cleaned and draped in a sterile fashion. She received 2 g Ancef intravenously as preoperative antibiotic prophylaxis. A timeout was performed. After administering local anesthesia with 1% lidocaine, a 5 cm longitudinal incision was made, on the volar aspect of the proximal forearm, about 2 cm distal to the antecubital fossa, overlying the cephalic vein and the brachial artery branch, that were marked on the skin using a SonoSite, prior to cleaning and draping. The incision was deepened through the skin and the subcutaneous tissue. The cephalic vein was noted in the subcutaneous tissue, and dissected longitudinally for about 5 cm, till the median antecubital vein. It was noted to be of good size. The superficial of the 2 branches of the (high bifurcated) brachial artery was then dissected, by incising the deep fascia medial to the vein. The artery was dissected longitudinally, and the adjacent veins were ligated and divided between 3-0 silk ties. It was noted to be patent, and free of disease. The patient then received 2000 units of systemic heparin. The cephalic vein was divided distally, and the divided and was ligated with 3-0 silk tie. The vein was distended with heparinized saline, and was noted to be adequate. The artery was then controlled with Vesseloops proximally and distally. A longitudinal arteriotomy was made on the artery and extended with the Eddy scissors. There was good inflow and backflow. The artery was flushed with heparinized saline proximally and distally. The divided end of the vein was spatulated, to match the size of the arteriotomy, and an end-to-side anastomosis was performed between the vein and the artery, using 6-0 Prolene continuous suture. Before completion of the anastomosis, the artery was flushed and backbled. The anastomosis was completed and all Vesseloops and clamps were released, to allow flow into the fistula and into the artery distally. There was good thrill in the fistula. The flow in the distal artery was preserved as evidenced by strong Doppler signals. The radial artery was palpable 2+. Hemostasis was achieved and confirmed. All counts were correct. The incision was closed in layers, using 2-0 Vicryl interrupted sutures, for the subcutaneous tissue and a 4-0 Monocryl subcuticular sutures. Steri-Strips followed by dry sterile dressing was placed. The patient tolerated the procedure well. She was transferred to the postop recovery room in a stable condition. She had a good thrill and bruit in the fistula postoperatively, and her hand was warm and well- perfused, with no symptoms of ischemia or steal. The procedure and findings were conveyed to her partner Carl over the phone. Kendra Goldberg MD Jul 06, 2021 15:28
[2021-07-06 16:20] VITALS: BP 174/79
== END 2021-07-06 16:20 | disposition home or self-care (01) ==
LOC: M SDC 09:56
PROVIDERS: ATTEND Surgery Vascular Surgery
DX: N18.6 End stage renal disease (principal); D63.1 Anemia in chronic kidney disease; E04.1 Nontoxic single thyroid nodule; E11.22 Type 2 diabetes mellitus with diabetic chronic kidney disease; E11.319 Type 2 diabetes mellitus with unspecified diabetic retinopathy without macular edema; E66.01 Morbid (severe) obesity due to excess calories; G47.33 Obstructive sleep apnea (adult) (pediatric); I13.2 Hypertensive heart and chronic kidney disease with heart failure and with stage 5 chronic kidney disease, or end stage renal disease; I50.32 Chronic diastolic (congestive) heart failure; I65.22 Occlusion and stenosis of left carotid artery; J44.9 Chronic obstructive pulmonary disease, unspecified; M16.0 Bilateral primary osteoarthritis of hip; M54.50 Low back pain, unspecified; R06.00 Dyspnea, unspecified; R06.83 Snoring; Z78.0 Asymptomatic menopausal state; Z79.4 Long term (current) use of insulin; Z79.82 Long term (current) use of aspirin; Z79.899 Other long term (current) drug therapy; Z88.0 Allergy status to penicillin; Z88.1 Allergy status to other antibiotic agents; Z96.1 Presence of intraocular lens; Z96.643 Presence of artificial hip joint, bilateral; Z98.51 Tubal ligation status

== ENCOUNTER 2021-07-13 10:07 | Emergency (ER) | payer MEDICARE ==
[~2021-07-13] VITALS: Ht 149.9 cm; Wt 96.3 kg
[~2021-07-13 10:07] MED LIST changes: -LIDOCAINE 1% MDV 20ML VIAL SQ PRN; -NS 1,000 ML IV SCH; -UNRESOLVED CLARIFICATION ENTRY XX SCH; -ceFAZolin SOD 2 GM in IV 1 EA IV ONE
--- NOTE | 2021-07-13 11:03 | REP ---
INDICATION: DYSPNEA/COUGH COMPARISON: 01/18/2021 TECHNIQUE: Portable AP view of the chest FINDINGS: The mediastinum and cardiac silhouette are stable and within normal limits for portable technique. The lung jaquez demonstrate chronic changes at the left base. No focal consolidation or effusion. No pneumothorax. Skeletal structures are intact. IMPRESSION: No acute cardiopulmonary process appreciated. <Electronically signed by Alden Ramon > 07/13/21 0444
[2021-07-13 11:04] LABS: BASO % 0.4 % (0.0-1.0); EOS # 0.3 10^3/uL (0.0-0.5); EOS % 2.7 % (0.0-3.0); HEMATOCRIT 29.4 % (36.0-47.0); HEMOGLOBIN 9.3 g/dl (12.0-15.5); LYMPH # 0.9 10^3/uL (1.5-5.0); LYMPH % 9.8 % (24.0-44.0); MEAN CORPUSCULAR HEMOGLOBIN 27.5 pg (27.0-33.0); MEAN CORPUSCULAR HGB CONC 31.6 g/dl (32.0-36.5); MONO # 0.6 10^3/uL (0.0-0.8); NEUTROPHILS # 7.7 10^3/uL (1.5-8.5); NEUTROPHILS % 80.7 % (36.0-66.0); PLATELET COUNT, AUTOMATED 316 10^3/uL (150-450); RED BLOOD COUNT 3.38 10^6/uL (4.00-5.40); WHITE BLOOD COUNT 9.5 10^3/uL (4.0-10.0)
[2021-07-13 11:32] LABS: BILIRUBIN,DIRECT 0.1 MG/DL (0.0-0.2); BILIRUBIN,TOTAL 0.4 MG/DL (0.2-1.0); CALCIUM LEVEL 8.1 MG/DL (8.8-10.2); CREATININE FOR GFR 3.02 MG/DL (0.55-1.30); GLOMERULAR FILTRATION RATE 16.5 (>45); POTASSIUM SERUM 4.4 MEQ/L (3.5-5.1); TOTAL PROTEIN 6.9 GM/DL (6.4-8.2)
[2021-07-13] MEDS ORDERED: methylPREDNISolone 40MG 1ML VIAL IV ONE (12:40)
--- NOTE | 2021-07-13 13:20 | REP ---
INDICATION: SOB; r/o pneumonia vs CHF pattern COMPARISON: 03/28/2021 TECHNIQUE: Axial noncontrast images from the thoracic inlet to the upper abdomen with coronal and sagittal reformations. This CT examination was performed using the following dose reduction techniques: Automated exposure control, adjustment of mA and/or kv according to the patient's size, and use of iterative reconstruction technique. FINDINGS: Subtle scattered bilateral patchy opacities are identified with small areas of consolidation along the medial right lower lobe and along the periphery of the left lung. Reactive mediastinal lymph nodes are also identified. There is no pleural effusion or pneumothorax. The tracheobronchial tree is patent. Lower lobe consolidations are decreased when compared with prior examination. Stable cardiomegaly without pericardial effusion. Thoracic aorta demonstrates atherosclerotic changes without aneurysm. IMPRESSION: Small scattered parenchymal opacities suggest early versus resolving pneumonia. <Electronically signed by Alden Ramon > 07/13/21 [id number]
--- OUTSIDE RECORDS SUMMARY | 2021-07-13 13:42 | CCD | Continuity of Care Document ---
Author Author Ritika VALERA M.D. Organization Unknown Address [address] [address] [place] [address] Phone [phone] Care Team Providers Care Drain Layer Name Role Phone Jina Nowak MD AUTM [phone] Problems Active Problems Provider Date Tremor Jese Valera M.D. Onset: 09/09/2020 Paresthesia Jese Valera M.D. Onset: 09/09/2020 Social History Type Date Description Comments Sex Unknown Tobacco Use Start: Unknown Patient has never smoked Allergies and adverse reactions Active Allergies Criticality Reaction | Severity Comments Date Penicillin V Unable to assess criticality 09/09/2020 Medications Active Medications SIG Qnty Indications Ordering Provide r Date Gabapentin 100mg Capsules Patient takes twice a day 90caps Jese Valera M.D. Immunizations Description No Information Available Vital Signs Date Vital Result Comment 07/08/2021 11:12am Respiratory Rate 12 /min Height 59 inches 4'11" Weight 211.00 lb BMI (Body Mass Index) 42.6 kg/m2 [place] Body Weight 100 lb 09/09/2020 8:34am Respiratory Rate 12 /min Height 59 inches 4'11" Weight 198.00 lb BMI (Body Mass Index) 40.0 kg/m2 [place] Body Weight 100 lb Results Description No Information Available Procedures Date Code Description Status 02/01/2021 36811 EEG Recording Awake & Asleep Com pleted 02/01/2021 50218 EEG Recording Awake & Asleep Com pleted Medical Devices Description No Information Available Encounters Description No Information Available Assessments Date Code Description Provider 07/08/2021 G25.0 Essential tremor Jese Valera M.D. 02/01/2021 R25.8 Other abnormal involuntary movem ents Yuli Dominguez M.D. 02/01/2021 R25.8 Other abnormal involuntary movem ents EEG Plan of Treatment No Information Available Functional Status Description No Information Available Mental Status Description No Information Available Referrals Description No Information Available
--- OUTSIDE RECORDS SUMMARY | 2021-07-13 13:42 | CCD | Continuity of Care Document ---
Author Author Ritika CHACON MD Organization Unknown Address [address], [address] [place] [address] Phone [phone] Care Team Providers Care Psychological Science Professor Name Role Phone Keily Thomas AUTM [phone] AUTM Unavailable AUTM Unavailable Problems Active Problems Provider Date Difficulty breathing Jaxon Seaarleth, D.O. Onset: 04/09/2018 Gastroesophageal reflux disease Jaxon Castaneda, D.O. Onset: 0 04/09/2018 Disturbance of consciousness Jaxon Seaarleth, D.O. Onset: 03/31 Cough Jaxon Castaneda, D.O. Onset: 04/09/2018 Chronic diastolic heart failure Jaxon Castaneda, D.O. Onset: 0 04/09/2018 Chronic obstructive lung disease Jaxon Sears, D.O. Onset: 05/20/2018 Other nonspecific abnormal finding of lung field Jaxon Castaneda, D.O. Onset: 05/20/2018 Immunodeficiency disorder Jaxon Castaneda, D.O. Onset: 018 Cardiomegaly Jaxon Sears, D.O. Onset: 06/13/2018 Obstructive sleep apnea syndrome Jaxon Seaarleth, D.O. Onset: 07/24/2018 Chronic obstructive pulmonary disease with (acute) exa cerbation ANGELICA Otto Onset: 08/21/2018 Abnormal findings on diagnostic imaging of lung Jaxon Sears, D.O. Onset: 06/12/2019 Abnormal findings on diagnostic imaging of urinary organs Viviana Castaneda D.O. Onset: 07/03/2019 Carotid artery occlusion Kendra Chacon MD Onset: 0 06/16/2021 Chronic kidney disease stage 5 Kendra Chacon MD On set: 06/16/2021 Anemia of chronic renal failure Kendra Chacon MD O nset: 06/16/2021 Morbid obesity Kendra Chacon MD Onset: 2020 Retinopathy due to type 2 diabetes mellitus Kendra burnett MD Onset: 06/16/2021 Social History Type Date Description Comments Sex Unknown ETOH Use Currently consumes alcohol 1-2 d rinks every 3 months Tobacco Use Start: 10/01/72 End: 10/01/07 Patient is a forme r smoker hx: 1/2 pack socially x's 35 years Recreational Drug Use Denies Drug Use Smoking Status Reviewed: 05/18/21 Patient is a former smoker hx : 1/2 pack socially x's 35 years Allergies, Adverse Reactions, Alerts Active Allergies Criticality Reaction | Severity Comments Date Penicillin Unable to assess criticality hives 02/26/2018 Medications Active Medications SIG Qnty Indications Ordering Provide r Date Albuterol Sulfate HFA 108(90Base) mcg/Act Aerosol Inhale Two Puffs By Mouth Four Times A Day as Needed 18units Jaxon Castaneda D.O. 11/05/2020 Nebulizer Kit/Tubing/Mouthpiece K it use with nebulizer as directed 2units J44.9 Kylah Biu.O. 01/2020 Compressor Nebulizer Misc dispense one nebulizer compressor 1units Dat44.9 Kylah Bui.O. 11/05/2019 Ipratropium [place]/Albuterol Sulfate 0.5-2.5(3)mg/3ML Solution 1 Vial Via Nebulizer Four Times A Day as Needed 360units Dat44.9 Kylah Bui.O. 10/08/2019 Serevent Diskus 50mcg/Dose Aerosol Inhale One puff By Mouth Twice A Day 60units Jaxon Castaneda D.O. 0 04/17/2019 CPAP 12cm LCW Kylah Bui.O. 08/12/20 18 Sertraline HCL 25mg Tablets 1 by mouth every day Unknown Hydralazine HCL 10mg Tablets 1 tab by mouth twice a day Unknown Calcitriol 0.25mcg Capsules 1 cap by mouth every day 30caps Unknown Gabapentin 100mg Capsules 1 cap by mouth twice a day 90caps Unknown Ezetimibe 10mg Tablets 1 tab by mouth every night Unknown Acetaminophen 500mg Tablets take 2 tabs by mouth every 8 hours for pain 60tabs Unknown Aspirin [address] 1 tab by mouth every day 60tabs Unknown Bumetanide 1mg Tablets once d aily Unknown Amlodipine Besylate 2.5mg Tablets 1 tab by mouth every day Unknown Incruse Ellipta 62.5mcg/Inh Aeroso l Inhale One puff By Mouth Every Day 90units Jaxon Castaneda D.O. Arnuity Ellipta 200mcg/Act Aerosol Inhale One puff By Mouth Every Day 90units Jaxon Castaneda D.O. Novolog Flexpen 100U nit/ML Solution Pen-Inject 2 units before every meal per sliding scale Unknown Chlorthalidone 25mg Tablets 1 by mouth every day Unknown Trulicity 1.5mg/0.5ML Solution Pen -Inject 1 injection every week Unknown 0 Bisoprolol Fumarate 10mg Tablets 1 by mouth every day Unknown Atorvastatin Calcium 80mg Tablets 1 by mouth every day Unknown Levemir Flextouch 10 0Unit/ML Solution Pen-Inject 34 unit injection every day Unknown Immunizations CPT Code Status Date Vaccine Lot # [id number] Given 07/23/2020 Flublock, Quadrivalent Vital Signs Date Vital Result Comment 06/16/2021 12:57pm BP Systolic 186 mmHg left 173/79 BP Diastolic 69 mmHg left 173/79 Heart Rate 69 /min Body Temperature 97.9 F Height 59 inches 4'11" Weight 210.25 lb BMI (Body Mass Index) 42.5 kg/m2 [place] Body Weight 100 lb Weight 95.369 kg BSA (Body Surface Area) 1.88 m2 06/14/2021 2:00pm BP Systolic 166 mmHg BP Diastolic 80 mmHg Body Temperature 98.6 F Height 59 inches 4'11" Weight 210.25 lb BMI (Body Mass Index) 42.5 kg/m2 [place] Body Weight 100 lb Weight 95.369 kg BSA (Body Surface Area) 1.88 m2 Results Test Acquired Date Facility Test Result H/L Range Note FVL/Lewis 05/18/2021 [facility] SEE IMAGE FVC-Pred 2.69 L FVC-Pre 1.76 L FVC-%Pred-Pre 65 L FVC-LLN 2.08 L Fev1-Pred 2.05 L Fev1-Pre 1.47 L Fev1-%Pred-Pre 71 L Fev1-LLN 1.53 L Fev6-Pred 2.57 L Fev6-Pre 1.76 L Fev6-%Pred-Pre 68 L Fev6-LLN 1.98 L Fka2ynl-Gvds 77 % Idl0bix-Axl 83 % Uev6rtk-%Pred-Pre 108 % Svw0hux-AYB 67 % Nhv5nep-Lrwh 96 % Yjk7zpf-Tgq 100 % Ajr4ssr-%Pred-Pre 104 % FEFMax-Pred 5.40 L/E/sec FEFMax-Pre 5.73 L/E/sec FEFMax-%Pred-Pre 106 L/E/sec FEFMax-LLN 3.89 L/E/sec Tfu3660-Syhx 1.91 L/E/sec Sbb6838-Arh 1.70 L/E/sec Gyz5528-%Pred-Pre 89 L/E/sec Czv2941-SRD 0.82 L/E/sec ExpTime-Pre 6.35 sec Lih5llg1-Mqwc 80 % Gew6iry1-Qnp 83 % Hub3unl5-%Pred-Pre 104 % Zkb9bup1-HWK 71 % Procedures Date Code Description Status 06/16/2021 34759 Office/Outpatient Established Mo d MDM 30-39 Min Completed 06/14/2021 89560 Office/Outpatient New Low MDM 30 -44 Minutes Completed 05/18/2021 38764 Office/Outpatient Established Mo d MDM 30-39 Min Completed 05/18/2021 53033 Spirometry Completed Medical Devices Description No Information Available Encounters Type Date Location Provider Dx Diagnosis Office Visit 06/16/2021 1:00p [facility] Rat na Sherie Chacon MD N18.5 Chronic kidney disease, stag e 5 I50.32 Chronic diastolic (congestiv e) heart failure J44.9 Chronic obstructive pulmonar y disease, unspecified R06.00 Dyspnea, unspecified D63.1 Anemia in chronic kidney dis ease E66.01 Morbid (severe) obesity due to excess calories E11.319 Type 2 diabetes w unsp diabe tic rtnop w/o macular edema I65.22 Occlusion and stenosis of le ft carotid artery Office Visit 06/14/2021 1:45p [facility] ANGELICA Gibbons Z12.11 Encounter for screening for malignant ne oplasm of colon Office Visit 05/18/2021 1:30p [facility] Junior Blanton SeOKalyan G47.33 Obstructive sleep apnea (adult) (pediatr ic) J44.9 Chronic obstructive pulmonar y disease, unspecified Assessments Date Code Description Provider 06/16/2021 N18.5 Chronic kidney disease, stage 5 Kendra Chacon MD 06/16/2021 I50.32 Chronic diastolic (congestive) h eart failure Kendra Chacon MD 06/16/2021 J44.9 Chronic obstructive pulmonary di sease, unspecified Kendra Chacon MD 06/16/2021 R06.00 Dyspnea, unspecified Kendra Chacon MD 06/16/2021 D63.1 Anemia in chronic kidney disease Kendra Chacon MD 06/16/2021 E66.01 Morbid (severe) obesity due to e xcess calories Kendra Chacon MD 06/16/2021 E11.319 Type 2 diabetes kristin itus with unspecified diabetic retinopathy without macular edema Kendra Chacon MD 06/16/2021 I65.22 Occlusion and stenosis of left c arotid artery Kendra Chacon MD 06/14/2021 Z12.11 Encounter for screening for anamika gnant neoplasm of colon ANGELICA Lewis 05/18/2021 G47.33 Obstructive sleep apnea (adult) (pediatric) Jaxon Castaneda D.O. 05/18/2021 J44.9 Chronic obstructive pulmonary di sease, unspecified Jaxon Castaneda D.O. Plan of Treatment Future Appointment(s):* 07/21/2021 8:30 am - Darin Perez MD at [facility] * 07/06/2021 11:30 am - Kendra Chacon MD at [facility] * 09/01/2021 10:15 am - ANGELICA Lewis at [facility] * 08/18/2021 9:30 am - Ricky Castillo JR, MD at [facility] 06/16/2021 - Kendra Chacon MD* N18.5 Chronic kidney disease, stage 5* Comments:* Patient is currently not on hemodialysis. Her GFR apparently has improved to 25 mL from 19. She is scheduled to see her nursing home manager in 2 months. However she was advised to have an AV fistula, in anticipation of hemodialysis treatmentsThe patient has adequate cephalic and basilic veins in the upper arms bilaterally.Options of treatment, for hemodialysis treatments, including catheters, AV fistulas and AV grafts were discussed with the patient and her partner in detail. Risks and complications of each option were discussed, including catheter related sepsis, graft infections, venous stenosis, steal syndrome etc.The patient understands, and wishes to proceed with creation of left arm (nondominant )AV fistula-which will be scheduled, in the near future. She will be a good candidate for radiocephalic AV fistula, in the proximal forearm.The procedure, risks and complications of the procedure, including bleeding, infection, failure of the fistula to mature, requiring additional procedures, venous stenosis, ischemic steal syndrome, nerve injuries, congestive heart failure etc. were discussed in detail. * I50.32 Chronic diastolic (congestive) heart failure* Comments:* Stable * J44.9 Chronic obstructive pulmonary disease, unspecified* Comments:* On bronchodilators and nebulizers.She was advised CPAP which she does not takeShe has mild dyspnea on exertion. She is not on oxygen * R06.00 Dyspnea, unspecified* Comments:* See #3 * D63.1 Anemia in chronic kidney disease* Comments:* See #1 * E66.01 Morbid (severe) obesity due to excess calories* Comments:* Diet and exercise * E11.319 Type 2 diabetes mellitus with unspecified diabetic retinopathy without macular edema* Comments:* With retinopathy and nephropathy * I65.22 Occlusion and stenosis of left carotid artery* New Xrays:* US Duplex Doppler Carotid Arteries Bilateral, Ordered: 06/16/21 * Comments:* Left-sided carotid bruit, and the patient with multiple risk factors, for atherosclerotic disease.Suggest carotid artery ultrasound.Continue aspirin 81 mg and statin 80 mg daily Functional Status Functional Condition Comment Date Status Independent with all ADL's Activ e Independent with all IADL's Acti ve Mental Status Mental Condition Comment Date Status Cognitive ability not impaired A ctive Referrals Refer to Reason for Referral Status Appt Date Ricky Castillo M.D. COLONOSCOPY Scheduled 06/14/2021 [facility] [address] [address] [phone]
--- OUTSIDE RECORDS SUMMARY | 2021-07-13 13:42 | CCD | Continuity of Care Document ---
Author Author Ritika MAN Organization Unknown Address [address] [facility], [address] [place] [address] Phone [phone] Care Team Providers Care Manager Psychology Name Role Phone Keily Thomas AUTM AUTM Unavailable Problems Active Problems Provider Date Difficulty breathing Kylah Bui.O. Onset: 04/09/2018 Gastroesophageal reflux disease Jaxon Castaneda D.O. Onset: 0 04/09/2018 Disturbance of consciousness Jaxon Castaneda D.O. Onset: 03/31 Cough Jaxon Castaneda D.O. Onset: 04/09/2018 Chronic diastolic heart failure Kylah Bui.O. Onset: 0 04/09/2018 Chronic obstructive lung disease Jaxon Castaneda D.O. Onset: 05/20/2018 Other nonspecific abnormal finding of lung field Kylah Bui.O. Onset: 05/20/2018 Immunodeficiency disorder Jaxon Castaneda D.O. Onset: 018 Cardiomegaly Jaxon Castaneda D.O. Onset: 06/13/2018 Obstructive sleep apnea syndrome Jaxon Castaneda D.O. Onset: 07/24/2018 Chronic obstructive pulmonary disease with (acute) exa cerbation ANGELICA Otto Onset: 08/21/2018 Abnormal findings on diagnostic imaging of lung Jaxon Castaneda D.O. Onset: 06/12/2019 Abnormal findings on diagnostic imaging of urinary organs Kylah Browning.O. Onset: 07/03/2019 Social History Type Date Description Comments Sex Unknown ETOH Use Currently consumes alcohol 1-2 d rinks every 3 months Tobacco Use Start: 10/01/72 End: 01/01/08 Patient is a forme r smoker hx: [...] with nebulizer as directed 2units J44.9 Kylah Bui.O. 01/2020 Compressor Nebulizer Misc dispense one nebulizer compressor 1units J44.9 Kylah Bui.O. 11/05/2019 Ipratropium [place]/Albuterol Sulfate 0.5-2.5(3)mg/3ML Solution 1 Vial Via Nebulizer Four Times A Day as Needed 360units J44.9 Kylah Bui.O. 10/08/2019 Serevent Diskus 50mcg/Dose Aerosol [...] CPT Code Status Date Vaccine Lot # [id number] Given 07/23/2020 Flublock, Quadrivalent Vital Signs Date Vital Result Comment 06/16/2021 12:57pm BP Systolic 186 mmHg left 173/79 BP Diastolic 69 mmHg left 173/79 Heart Rate 69 /min Body Temperature 97.9 F Height 59 inches 4'11" Weight 210.25 lb BMI (Body Mass Index) 42.5 kg/m2 [place] Body Weight 100 lb Weight 95.369 kg BSA (Body Surface Area) 1.88 m2 06/14/2021 2:00pm BP Systolic 166 mmHg BP Diastolic 80 mmHg Body Temperature 98.6 F Height 59 inches 4'11" Weight 210.25 lb BMI (Body Mass Index) 42.5 kg/m2 [place] Body Weight 100 lb Weight 95.369 kg BSA (Body Surface Area) 1.88 m2 Results Test Acquired Date Facility Test Result H/L Range Note FVL/[place] 05/18/2021 [facility] PDFReport SEE IMAGE FVC-Pred 2.69 L FVC-Pre 1.76 L FVC-%Pred-Pre 65 L FVC-LLN 2.08 L Fev1-Pred 2.05 L Fev1-Pre 1.47 L Fev1-%Pred-Pre 71 L Fev1-LLN 1.53 L Fev6-Pred 2.57 L Fev6-Pre 1.76 L Fev6-%Pred-Pre 68 L Fev6-LLN 1.98 L Cgl0nwh-Frfp 77 % Dnh5zar-Dpa 83 % Sec2kot-%Pred-Pre 108 % Iav6mky-GJH 67 % Hfk6zrb-Ulqa 96 % Ctd1euo-Qto 100 % Peg2kqw-%Pred-Pre 104 % FEFMax-Pred 5.40 L/E/sec FEFMax-Pre 5.73 L/E/sec FEFMax-%Pred-Pre 106 L/E/sec FEFMax-LLN 3.89 L/E/sec Jkq8686-Ixye 1.91 L/E/sec Zcz9489-Yeg 1.70 L/E/sec Fwm5071-%Pred-Pre 89 L/E/sec Ozb3258-GZM 0.82 L/E/sec ExpTime-Pre 6.35 sec Dcd5wda3-Lrew 80 % Vju9lyo0-Pje 83 % Kkk2ddk6-%Pred-Pre 104 % Dft6brj6-SLE 71 % Procedures Date Code Description Status 06/14/2021 63855 Office/Outpatient New Low MDM 30 -44 Minutes Completed 05/18/2021 94317 Office/Outpatient Established Mo d MDM 30-39 Min Completed 05/18/2021 53277 Spirometry Completed Medical Devices Description No Information Available Encounters Type Date Location Provider Dx Diagnosis Office Visit 06/14/2021 1:45p [facility] ANGELICA Gibbons Z12.11 Encounter for screening for malignant ne oplasm of colon Office Visit 05/18/2021 1:30p [facility] Pulmonary/Thoracic Jaxon kelly D.O. G47.33 Obstructive sleep apnea (adult) (pediatr ic) J44.9 Chronic obstructive pulmonar y disease, unspecified Assessments Date Code Description Provider 06/14/2021 Z12.11 Encounter for screening for anamika gnant neoplasm of colon ANGELICA Lewis 05/18/2021 G47.33 Obstructive sleep apnea (adult) (pediatric) Jaxon Castaneda D.O. 05/18/2021 J44.9 Chronic obstructive pulmonary di sease, unspecified Jaxon Castaneda D.O. Plan of Treatment Future Appointment(s):* 09/01/2021 10:15 am - ANGELICA Lewis at [facility] * 08/18/2021 9:30 am - Ricky Castillo JR, MD at [facility] Practice 05/18/2021 - Jaxon Castaneda D.O.* G47.33 Obstructive sleep apnea (adult) (pediatric) * J44.9 Chronic obstructive pulmonary disease, unspecified * * Follow up:* Follow up in six months with spirometry. Functional Status Functional Condition Comment Date Status Independent with all ADL's Activ e Independent with all IADL's Acti ve Mental Status Mental Condition Comment Date Status Cognitive ability not impaired A ctive Referrals Refer to Reason for Referral Status Appt Date Ricky Castillo M.D. COLONOSCOPY Scheduled 06/14/2021 [facility] General Surgery [address] [address] [phone]
--- OUTSIDE RECORDS SUMMARY | 2021-07-13 13:43 | CCD | Continuity of Care Document ---
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 Onset: 04/09/2018 Gastroesophageal reflux disease Jaxon Castaneda D.O. Onset: 0 04/09/2018 Disturbance of consciousness Jaxon Castaneda D.O. Onset: 03/31 Cough Jaxon Castaneda D.O. Onset: 04/09/2018 Chronic diastolic heart failure Kylah Bui.O. Onset: 0 04/09/2018 Chronic obstructive lung disease Jaxon Castaneda D.O. Onset: 05/20/2018 Other nonspecific abnormal finding of lung field Jaxon Castaneda D.O. Onset: 05/20/2018 Immunodeficiency disorder Jaxon Castaneda D.O. Onset: 018 Cardiomegaly Jaxon Castaenda D.O. Onset: 06/13/2018 Obstructive sleep apnea syndrome [...] Four Times A Day as Needed 18units Kylah Bui.O. 11/05/2020 Nebulizer Kit/Tubing/Mouthpiece K it use with nebulizer as directed 2units J44.9 Kylah Bui.O. 01/2020 Compressor Nebulizer Misc dispense one nebulizer compressor 1units Dat44.9 Kylah Bui.O. 11/05/2019 Ipratropium [place]/Albuterol Sulfate 0.5-2.5(3)mg/3ML Solution 1 Vial Via Nebulizer Four Times A Day as Needed 360units Dat44.9 Jaxon Castaneda D.O. 10/08/2019 Serevent Diskus 50mcg/Dose Aerosol Inhale One [...] CPT Code Status Date Vaccine Lot # 60171 Given 07/23/2020 Flublock, Quadrivalent Vital Signs Date Vital Result Comment 06/16/2021 12:57pm BP Systolic 186 mmHg left 173/79 BP Diastolic 69 mmHg left 173/79 Heart Rate 69 /min Body Temperature 97.9 F Height 59 inches 4'11" Weight 210.25 lb BMI (Body Mass Index) 42.5 kg/m2 [place] Body Weight 100 lb Weight 95.369 kg BSA (Body Surface Area) 1.88 m2 06/14/2021 2:00pm BP Systolic 166 mmHg BP Diastolic 80 mmHg Body Temperature 98.6 F Height 59 inches 4'11" Weight 210.25 lb BMI (Body Mass Index) 42.5 kg/m2 [place] Body Weight 100 lb Weight 95.369 kg BSA (Body Surface Area) 1.88 m2 Results Test Acquired Date Facility Test Result H/L Range Note FVL/[place] 05/18/2021 [facility] PDFReport SEE IMAGE FVC-Pred 2.69 L FVC-Pre 1.76 L FVC-%Pred-Pre 65 L FVC-LLN 2.08 L Fev1-Pred 2.05 L Fev1-Pre 1.47 L Fev1-%Pred-Pre 71 L Fev1-LLN 1.53 L Fev6-Pred 2.57 L Fev6-Pre 1.76 L Fev6-%Pred-Pre 68 L Fev6-LLN 1.98 L Ocd7ycd-Lens 77 % Hkf8iox-Aaq 83 % Vmb8xmr-%Pred-Pre 108 % Een3fzt-OJJ 67 % Btg2sdt-Gpzk 96 % Trp4buy-Cmn 100 % Qvj7ihc-%Pred-Pre 104 % FEFMax-Pred 5.40 L/E/sec FEFMax-Pre 5.73 L/E/sec FEFMax-%Pred-Pre 106 L/E/sec FEFMax-LLN 3.89 L/E/sec Jni4577-Tbpo 1.91 L/E/sec Wlf7260-Vat 1.70 L/E/sec Bwe0777-%Pred-Pre 89 L/E/sec Rmt4904-KZT 0.82 L/E/sec ExpTime-Pre 6.35 sec Bvz1jna9-Gcdb 80 % Wxk0rgo7-Meq 83 % Puq9sxn7-%Pred-Pre 104 % Zzm0bke6-VWI 71 % Procedures Date Code Description Status 06/14/2021 78519 Office/Outpatient New Low MDM 30 -44 Minutes Completed 05/18/2021 36779 Office/Outpatient Established Mo d MDM 30-39 Min Completed 05/18/2021 72976 Spirometry Completed Medical Devices Description No Information Available Encounters Type Date Location Provider Dx Diagnosis Office Visit 05/18/2021 1:30p [facility] Pulmonary/Thoracic Jaxon kelly D.O. G47.33 Obstructive sleep [...] 09/01/2021 10:15 am - ANGELICA Lewis at [facility] * 08/18/2021 9:30 am - Ricky Castillo JR, MD at [facility] 05/18/2021 - Jaxon Castaneda D.O.* G47.33 [...] Date Ricky Castillo M.D. COLONOSCOPY Scheduled 06/14/2021 [facility] General Surgery [address] [id number] [phone]
--- OUTSIDE RECORDS SUMMARY | 2021-07-13 13:43 | CCD ---
Author Author [employer] [facility] [employer] Organization [facility] [employer] Address Unknown Phone Unavailable Care Team Providers Care Day Care Aide Name Role Phone Carey Jaquez Unavailable PROBLEMS Type Condition ICD9-CM Code LRP51-XC Code Onset Dates Condition S tatus W/U Status Risk SNOMED Code Notes Problem Gastroesophageal reflux disease, esophagitis pre sence not specified K21.9 Active confirmed 011832038 Problem Chronic obstructive pulmonary disease, unspecified COPD ty pe J44.9 Active confirmed 89261567 Problem History of total right hip arthroplasty Z96.641 Active confirmed 210496396051 Problem MARIZA (obstructive sleep apnea) G47.33 Active confirm ed 34033141 Problem Type 2 diabetes mellitus with diabetic chronic kidney disease E11.22 Active confirmed 45182378 Problem 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 Active confirmed 638155640 Problem Vitamin D deficiency E55.9 Active confirmed 92426418 Problem Hypertension I10 Active confirmed 6490157 3 Problem shelter (current) use of insulin Z79.4 Activ e confirmed 813998180 Problem Thyroid nodule E04.1 Active confirmed 12875 5005 Problem Other chronic pain G89.29 Active confirmed 8 3782753 Problem Gastroesophageal reflux dise ase, unspecified whether esophagitis present K21.9 Active confirmed 067514337 Problem Renal calculus, left N20.0 Active confirmed 04036303 Problem Anxiety F41.9 Active confirmed 92917903 Problem Obesity (BMI 30-39.9) E66.9 Active confirmed 198781467 Problem Chronic diastolic (congestive) heart failure I50.3 2 Active confirmed 526024924 Problem Mixed hyperlipidemia E78.2 Active confirmed 002641586 Problem Diabetic polyneuropathy associated with type 2 d iabetes mellitus E11.42 Active confirmed 98683842 Problem Chronic diastolic heart failure I50.32 Active confi rmed 025519205 Problem Type 2 diabetes mellitus with hyperglycemia E11.65 Active confirmed 64906817 Problem Renal calculus N20.0 Active confirmed 37451 007 Problem Stage 4 chronic kidney disease N18.4 Active confir med 935073813 Problem Vitreomacular adhesion, 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 Active confirmed 81189315003351377 ALLERGIES Allergen (clinical drug ingredient) Drug/Non Drug Allergy do cumented on EMR Reaction Allergy Type Onset Date Status pantoprazole Pantoprazole Sodium([facility] Code:[address]-07) Itching D rug Allergy Active Penicillin (For Allergies Use Only) Hives Drug Allerg y Active ENCOUNTERS from 1955 to 2021-04-22 Encounter Location Date Provider Diagnosis [facility] [address] [facility] [phone] [place] [address] 16 Mar, 2021 Carey Jaquez Chronic diastolic heart fail ure I50.32 ; Blepharitis of right lower eyelid, unspecified type H01.002 ; Type 2 diabetes mellitus with diabetic chronic kidney disease E11.22 ; Stage 4 chronic kidney disease N18.4 and shelter (current) use of insulin Z79.4 IMMUNIZATIONS Vaccine Route Administration Date Status Influenza 18 yrs & older Flublok Unknown Nov 26, 2020 Administered Influenza 18 yrs & older Flublok IM [...] Unknown Audit Question Answer Notes Total Score: 0 Interpretation: Alcohol Education Language: Question Answer Notes Languages spoken: Uzbek Uatsdin: Question Answer Notes Uatsdin 08 Latter-Day Sexual Hx: Question Answer Notes Had sex [...] FOR REFERRAL No Information VITAL SIGNS Weight 205 lbs Mar, Height 60 in Mar, BMI 40.03 kg/m2 Mar, Heart Rate 70 /min Mar, Respiratory Rate 20 /min Mar, Temperature 97.1 degrees Fahrenheit Mar, Oximetry 97 Mar, Blood pressure systolic 140 mm Hg Mar, Blood pressure diastolic 70 mm Hg Mar, MEDICATIONS Medication SIG (Take, Route, Frequency, Duration) Notes Start Da te End Date Status Ferrous Sulfate 325 (65 Fe) MG 1 tablet Orally Once a day Not-Taking OneTouch Verio - DIRECTED DAILY In Vitro three times daily for 90 days Active Vitamin D3 High Potency 50,000 wkly Not-Taking FreeStyle Margie Olean - as directed Dx E11.22 Oct, Active Trulicity 1.5 MG/0.5ML 0.5 ml Subcutaneous weekly Active Bumetanide 2 MG 1 tab Orally once daily Active NovoLOG FlexPen 100 UNIT/ML carb coverage 1 unit:10 g of carbs; plus sliding scale Subcutaneous QID; MDD _#40 Active Bisoprolol Fumarate 10 MG TAKE ONE TABLET BY MOUTH DAY Orally Once a day for 30 Active Incruse Ellipta 62.5 MCG/INH 1 puff Inhalation Once a day Active Ventolin HFA 108 (90 Base) MCG/ACT 2 puffs Inhalation every 4 hours as needed for SOB Nov, Active amLODIPine Besylate 2.5 MG 3 tabs Orally Daily for 30 Active Calcitriol 0.25 MCG 1 capsule Orally Once a day Active Ipratropium-Albuterol 0.5-2.5 (3) MG/3ML 3 ml Inhalation bid Nov, Active Arnuity Ellipta 200 MCG/ACT 1 puff Inhalation Once a day Active Glucose Meter Test - as directed In Vitro Daily dx. E11.9 Mar, Active Aspirin Adult Low Dose 81 MG 1 tablet Orally Once a day Active Sertraline HCl 25 MG 1 tablet Orally Once a day Active FreeStyle Margie Sensor System - as directed Dx E11.22 13 2020 Active Serevent Diskus 50 MCG/DOSE 1 puff Inhalation Twice a day for 30 days Active Gabapentin 100 MG 1 capsule Orally bid Dec, Active Glucometer as directed Dx E11.9 Dec, Ac tive Atorvastatin Calcium 80 MG 1 tablet Orally Once a day for 90 days Active Pen Lamy 31G X 6 MM as directed DX. E11.9 Once daily as directed for 30 Active Levemir FlexTouch 100 UNIT/ML 40 units Subcutaneous Daily for 37 Active Erythromycin 5 MG/GM 1 application into the lower eyelid of affected eye Ophthalmic Four times a day for 10 day(s) Mar, Active Lancets - as directed one touch three times daily DX: E11. 22 for 30 Days Mar, Active Acetaminophen 500 MG 2 tablets Orally three times daily as neede d MDD 3000mg Active Zetia 10 MG 1 tablet Orally Once a day Active hydrALAZINE HCl 10 MG 1 tablet with food Orally twice a day Active Pantoprazole Sodium 20 MG 1 tablet Orally Once a day for 30 day( s) Oct, Not-Taking Cyclobenzaprine HCl 5 MG 1 tablet as needed for back spasm Orally bid for 30 day(s) Jul, Not-Taking Chlorthalidone 25 MG 1/2 tab Orally Once a day Active PROCEDURES No Information RESULTS No Results REASON FOR VISIT [facility] Hospital Follow up , [facility] Discharge Summary in ecw MEDICAL (GENERAL) HISTORY Type Description Date Medical [...] Medical History Pap smears: [facility] Medical History Mammograms: Due in October Medical History MARIZA - sometimes uses CPAP Medical History COPD - Dr. Castaneda/Franky Hough Surgical History tubal ligation Surgical History left and right inquinal hernia Surgical History (plate and screws neck) Surgical History Left Cataract 11/2016 Surgical History Left total hip 12/2016 Surgical History Left breast steretotactic needle biopsy: fibroadenoma 05/2016 Surgical History Right hip Sx, [place] 01/15/1912/2018 Surgical History stent placed for kidney stone 11/26/2020 Surgical History cysto stent removal Hospitalization History see surgeries above 12/2016 Hospitalization History bronchitis, elevated BS 08/2017 Hospitalization History elevated b/p 12/2017 Hospitalization History pneumonia 03/18 Hospitalization History [facility]-11 days PNA with COPD exacerbati on 04/12/18 Hospitalization History pneumonia 03/30/2019 Hospitalization History chf exacerbation 11/2019 Hospitalization History pneumonia 07/2020 Hospitalization History kidney stone 11/26/2020 Hospitalization History CHF 03/28/21 Goals Section No Information Health Concerns No Information MEDICAL EQUIPMENT No Information MENTAL STATUS No Information FUNCTIONAL STATUS No Information ASSESSMENTS Encounter Date Diagnosis Assessment Notes Treatment Notes Treatm ent Clinical Notes Mar, Chronic diastolic heart failure (ICD-10 - I50.32 ) improved, schedule f/up with cardiology. Continue fluid restriction and current meds per nephrology Mar, Blepharitis of right lower e yelid, unspecified type (ICD-10 - H01.002) Advised and Educated on administration and side effects of meds prescribed and patient verbalized understanding of the same., supportive measures for symptom relief, follow up if symptoms worsen or not improved with treatment Mar, Type 2 diabetes mellitus wit h diabetic chronic kidney disease (ICD- 10 - E11.22) continue current meds and check labs prior to f/up with Dr Nowak Mar, Stage 4 chronic kidney disease (ICD-10 - N18.4) f/up as scheduled with nephrology - reviewed importance of diabetes control Mar, 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 Continue fluid restriction and current meds per nephrology Blepharitis of right lower eyelid, unspecified type *Advised and Educated on administration and side effects of meds prescribed and patient verbalized understanding of the same., supportive measures for symptom relief, follow up if symptoms worsen or not improved with treatment Type 2 diabetes mellitus with diabetic chronic kidney disease continue current meds and check labs prior to f/up with Dr Nowak Stage 4 chronic kidney disease f/up as scheduled with nephrology - reviewed importance of diabetes control Future Test Test Name Order Date Basic Metabolic Profile (BMP) [id number] HEMOGLOBIN A1c [id number] Next Appt Details as sched Reason: Provider Name:Jina Nowak, 2021-05-31 10:30:00 AM, [address] [facility], , [place], [address], Provider Name:Daisha Goldstein, 7 10:00:00 AM, [address], , [place], [address], Insurance Providers Payer Name Payer Address Payer Phone Insured Name Patient Relati onship to Insured Coverage Start Date Coverage End Date AETNA MEDICARE AETNA [employer]URANCE [employer] [address] [facility] [phone] CELI JOHNSON self
--- OUTSIDE RECORDS SUMMARY | 2021-07-13 13:43 | CCD | Continuity of Care Document ---
Author Author Ritika BANSAL D.O. [place] [address] Phone [phone] Care Team Providers Care Para Machine Operator Name Role Phone Keily Thomas AUTM [phone] JordynmikalaJina M.D. AUTM [phone] Problems Active Problems Provider Date Difficulty breathing Jaxon Bansal D.O. Onset: 04/09/2018 Gastroesophageal reflux disease Jaxon Bansal D.O. Onset: 0 04/09/2018 Disturbance of consciousness Jaxon Bansal D.O. Onset: 03/31 Cough Jaxon Bansal D.O. Onset: 04/09/2018 Chronic diastolic heart failure Jaxon Bansal D.O. Onset: 0 04/09/2018 Chronic obstructive lung disease Jaxon Bansal D.O. Onset: 05/20/2018 Other nonspecific abnormal finding of lung field Jaxon Bansal D.O. Onset: 05/20/2018 Immunodeficiency disorder Jaxon Bansal D.O. Onset: 018 Cardiomegaly Junior BuiO. Onset: 06/13/2018 Obstructive sleep apnea syndrome Jaxon Bansal D.O. Onset: 07/24/2018 Chronic obstructive pulmonary disease with (acute) exa cerbation ANGELICA Otto Onset: 08/21/2018 Abnormal findings on diagnostic imaging of lung Junior BuiO. Onset: 06/12/2019 Abnormal findings on diagnostic imaging of urinary organs Viviana Bansal D.O. Onset: 07/03/2019 Social History Type Date Description Comments Sex Unknown ETOH Use Denies alcohol use Tobacco Use Start: 10/01/72 End: 10/01/07 Patient is a forme r smoker hx: 1/2 pack socially x's 35 years Smoking Status Reviewed: 05/18/21 Patient is a [...] use with nebulizer as directed 2units J44.9 Junior BuiO. 01/2020 Compressor Nebulizer Misc dispense one nebulizer compressor 1units Dat44.9 Kylah Bui.O. 11/05/2019 Ipratropium [place]/Albuterol Sulfate 0.5-2.5(3)mg/3ML Solution 1 Vial Via Nebulizer Four Times A Day as Needed 360units Dat44.9 Kylah Bui.O. 10/08/2019 Serevent Diskus 50mcg/Dose Aerosol Inhale One puff By Mouth Twice A Day 60units Jaxon Bansal D.O. 0 04/17/2019 CPAP 12cm LCW Kylah Bui.O. 08/12/20 18 Calcitriol 0.25mcg Capsules 1 cap by mouth [...] puff By Mouth Every Day 90units Jaxon Bansal D.O. Arnuity Ellipta 200mcg/Act Aerosol Inhale One puff By Mouth Every Day 90units Kylah Bui.O. Novolog Flexpen 100U nit/ML Solution Pen-Inject 2 [...] CPT Code Status Date Vaccine Lot # [id number] Given 07/23/2020 Afluria, Quadrivalent, 0.5ml , [facility]# [id number] Vital Signs Date Vital Result Comment 05/18/2021 1:24pm BP Systolic 130 mmHg BP Diastolic 80 mmHg Heart Rate 72 /min O2 % BldC Oximetry 94 % Height 60 inches 5'0" Weight 208.00 lb BMI (Body Mass Index) 40.6 kg/m2 [place] Body Weight 100 lb Weight 94.349 kg BSA (Body Surface Area) 1.90 m2 09/08/2020 8:14am BP Systolic 122 mmHg BP Diastolic 82 mmHg Heart Rate 69 /min O2 % BldC Oximetry 94 % Body Temperature 97.9 F Height 60 inches 5'0" Weight 202.00 lb BMI (Body Mass Index) 39.4 kg/m2 [place] Body Weight 100 lb Weight 91.627 kg BSA (Body Surface Area) 1.87 m2 Results Test Acquired Date Facility Test Result H/L Range Note FVL/[place] 05/18/2021 [facility] PDFReport SEE IMAGE FVC-Pred 2.69 L FVC-Pre 1.76 L FVC-%Pred-Pre 65 L FVC-LLN 2.08 L Fev1-Pred 2.05 L Fev1-Pre 1.47 L Fev1-%Pred-Pre 71 L Fev1-LLN 1.53 L Fev6-Pred 2.57 L Fev6-Pre 1.76 L Fev6-%Pred-Pre 68 L Fev6-LLN 1.98 L Zmo7rsv-Xcha 77 % Yyg3xyn-Lma 83 % Vxo1png-%Pred-Pre 108 % Osx2njm-XCP 67 % Ynb2tbu-Dwek 96 % Kao1amn-Zas 100 % Lwh6nzd-%Pred-Pre 104 % FEFMax-Pred 5.40 L/E/sec FEFMax-Pre 5.73 L/E/sec FEFMax-%Pred-Pre 106 L/E/sec FEFMax-LLN 3.89 L/E/sec Mls7096-Fsqf 1.91 L/E/sec Dlr5593-Pgl 1.70 L/E/sec Qll4298-%Pred-Pre 89 L/E/sec Lbt3471-NXQ 0.82 L/E/sec ExpTime-Pre 6.35 sec Vct4lky4-Ebho 80 % Vtv9nog9-Nmo 83 % Zek5toi2-%Pred-Pre 104 % Ofl2rqa7-RAL 71 % Procedures Date Code Description Status 05/18/2021 76873 Office/Outpatient Established Mo d MDM 30-39 Min Completed 05/18/2021 12573 Spirometry Completed Medical Devices Description No Information Available Encounters Type Date Location Provider Dx Diagnosis Office Visit 05/18/2021 1:30p [facility]Th[facility]acic Jaxon kelly D.O. G47.33 Obstructive sleep apnea (adult) (pediatr ic) J44.9 Chronic obstructive pulmonar y disease, unspecified Assessments Date Code Description Provider 05/18/2021 G47.33 Obstructive sleep apnea (adult) (pediatric) Jaxon Bansal D.O. 05/18/2021 J44.9 Chronic obstructive pulmonary di sease, unspecified Jaxon Bansal, D.O. Plan of Treatment 05/18/2021 - Jaxon Bansal D.O.* G47.33 Obstructive sleep apnea (adult) (pediatric) * J44.9 Chronic obstructive pulmonary disease, unspecified * * Follow up:* Follow up in six months with spirometry. Functional Status Functional Condition Comment Date Status Independent with all ADL's Activ e Independent with all IADL's Acti ve Mental Status Mental Condition Comment Date Status Cognitive ability not impaired A ctive Referrals Description No Information Available
--- OUTSIDE RECORDS SUMMARY | 2021-07-13 13:43 | CCD ---
Author Author [facility] Organization [facility] Address Unknown Phone Unavailable Care Team Providers Care Right Of Way Man Name Role Phone Jina Nowak Unavailable PROBLEMS Type Condition ICD9-CM Code [id number] Code Onset Dates Condition S tatus W/U Status Risk SNOMED Code Notes Problem Gastroesophageal reflux disease, esophagitis pre sence not specified K21.9 Active confirmed 666895236 Problem Chronic obstructive pulmonary disease, unspecified COPD ty pe J44.9 Active confirmed 42143352 Problem History of total right hip arthroplasty Z96.641 Active confirmed 528721242953 Problem MARIZA (obstructive sleep apnea) G47.33 Active confirm ed 18837911 Problem Type 2 diabetes mellitus with diabetic chronic kidney disease E11.22 Active confirmed 21012438 Problem 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 Active confirmed 786725570 Problem Vitamin D deficiency E55.9 Active confirmed 63999264 Problem Hypertension I10 Active confirmed 6139857 3 Problem detention (current) use of insulin Z79.4 Activ e confirmed 825561696 Problem Thyroid nodule E04.1 Active confirmed 10887 5005 Problem Other chronic pain G89.29 Active confirmed 8 9591898 Problem Gastroesophageal reflux dise ase, unspecified whether esophagitis present K21.9 Active confirmed 749283364 Problem Renal calculus, left N20.0 Active confirmed 42978948 Problem Anxiety F41.9 Active confirmed 13184945 Problem Obesity (BMI 30-39.9) E66.9 Active confirmed 382987790 Problem Chronic diastolic (congestive) heart failure I50.3 2 Active confirmed 956377940 Problem Mixed hyperlipidemia E78.2 Active confirmed 764418516 Problem Diabetic polyneuropathy associated with type 2 d iabetes mellitus E11.42 Active confirmed 78816531 Problem Chronic diastolic heart failure I50.32 Active confi rmed 510035178 Problem Type 2 diabetes mellitus with hyperglycemia E11.65 Active confirmed 91991486 Problem Renal calculus N20.0 Active confirmed 41708 007 Problem Stage 4 chronic kidney disease N18.4 Active confir med 905531893 Problem Vitreomacular adhesion, 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 Active confirmed [id number] ALLERGIES Allergen (clinical drug ingredient) Drug/Non Drug Allergy do cumented on EMR Reaction Allergy Type Onset Date Status pantoprazole Pantoprazole Sodium([facility] Code:[address]-16) Itching D rug Allergy Active Penicillin (For Allergies Use Only) Hives Drug Allerg y Active ENCOUNTERS from 1955 to 2021-06-01 Encounter Location Date Provider Diagnosis [place] [id number] [facility] [phone] [place] [address] 31 May, 2021 Jina Nowak Type 2 diabetes mellitus wit h diabetic chronic kidney disease E11.22 ; detention (current) use of insulin Z79.4 ; Hypertension I10 ; Low back pain M54.5 ; Other chronic pain G89.29 ; Pain in thoracic spine M54.6 and Screening for colon cancer Z12.11 IMMUNIZATIONS Vaccine Route Administration Date Status [...] Education Language: Question Answer Notes Languages spoken: [place] Latter Day: Question Answer Notes Latter Day 08 Caodaism Sexual Hx: Question Answer Notes Had sex [...] smoked? > 10 years REASON FOR REFERRAL from 1955 to 2021-06-01 Reason Needs physical therapy, plea se evaluate and treat Diagnosis 1 Low back pain (M54.5) Diagnosis 2 Other chronic pain (G89.29) Diagnosis 3 Pain in thoracic spine (M54. 6) Referral Organization [facility] Referring Provider First Name Jina Referring Provider Last Name [facility] Referring Provider Specialty Family Medicine Referred Provider [facility] Physical [facility] Referred Provider Specialty Physical Therapist Referral Priority Routine General Notes Andreina Finnegan 06/01/2021 10:5 9:37 AM > referral sent Reason Needs first screening colono scopy Diagnosis 1 Screening for colon cancer ( Z12.11) Referral Organization [facility] Referring Provider First Name Jina Referring Provider Last Name [facility] Referring Provider Specialty Family Medicine Referred Provider Ricky Castillo Referred Provider Specialty General Surgery Referral Priority Routine General Notes Andreina Finnegan 06/01/2021 10:5 9:12 AM > referral sent VITAL SIGNS Weight 211 lbs May, Height 60 in May, BMI 41.20 kg/m2 May, Heart Rate 95 /min May, Respiratory Rate 20 /min May, Temperature 96.5 degrees Fahrenheit May, Oximetry 96 May, Blood pressure systolic 136 mm Hg May, Blood pressure diastolic 78 mm Hg May, MEDICATIONS Medication SIG (Take, Route, Frequency, Duration) Notes Start Da te End Date Status OneTouch Verio - DIRECTED DAILY In Vitro three times daily for 90 days Active Sertraline HCl 25 MG TAKE ONE TABLET BY MOUTH EVERY DAY for 90 Active Levemir FlexTouch 100 UNIT/ML 34 units Subcutaneous Daily Active Pen [place] 31G X 6 MM as directed DX. E11.9 Once daily as directed for 30 Active Chlorthalidone 25 MG 1/2 tab Orally Once a day Active Vitamin D3 High Potency 50,000 wkly Not-Taking hydrALAZINE HCl 10 MG 1 tablet with food Orally twice a day Active Incruse Ellipta 62.5 MCG/INH 1 puff Inhalation Once a day Active Ventolin HFA 108 (90 Base) MCG/ACT 2 puffs Inhalation every 4 hours as needed for SOB frequency change Nov, Active Calcitriol 0.25 MCG 1 capsule Orally Once a day Active Ipratropium-Albuterol 0.5-2.5 (3) MG/3ML 3 ml Inhalation bid betty quency change Nov, Active FreeStyle Margie [place] - as directed Dx E11.22 Oct, Active Arnuity Ellipta 200 MCG/ACT 1 puff Inhalation Once a day Active Lancets - as directed one touch three times daily DX: E11. 22 for 30 Days Mar, Active FreeStyle Margie Sensor System - as directed Dx E11.22 2020 Active Bisoprolol Fumarate 10 MG TAKE ONE TABLET BY MOUTH EVERY DAY for 30 Active Serevent Diskus 50 MCG/DOSE 1 puff Inhalation Twice a day for 30 days Active NovoLOG FlexPen 100 UNIT/ML carb coverage 1 unit:10 g of carbs; plus sliding scale Subcutaneous QID; MDD _#40 Active Amlodipine Besylate 2.5 MG TAKE THREE TABLETS BY MOUTH EVERY DAY for 30 Active Atorvastatin Calcium 80 MG 1 tablet Orally Once a day for 90 days Active Ferrous Sulfate 325 (65 Fe) MG 1 tablet Orally Once a day pt hasn't been taking, but will start taking again Not-Taking Bumetanide 2 MG 1 tab Orally once daily Active Trulicity 1.5 MG/0.5ML 0.5 ml Subcutaneous weekly Active Zetia 10 MG 1 tablet Orally Once a day Active Glucometer as directed Dx E11.9 Dec, Ac tive Aspirin Adult Low Dose 81 MG 1 tablet Orally Once a day Active Gabapentin 100 MG TAKE ONE CAPSULE BY MOUTH TWICE A DAY for 90 Active Glucose Meter Test - as directed In Vitro QID dx. E11.9 for 90 d ays Mar, Active Acetaminophen 500 MG 2 tablets Orally three times daily as neede d MDD 3000mg Active PROCEDURES No Information RESULTS No Results REASON FOR VISIT F/u DM2/HTN MEDICAL (GENERAL) HISTORY Type Description Date Medical [...] Medical History Pap smears: [facility] at [facility] Medical History Mammograms: Due in October Medical History MARIZA - sometimes uses CPAP Medical History COPD - Dr. Castaneda/Franky Hough Surgical History tubal ligation Surgical History left and right inquinal hernia Surgical History (plate and screws neck) Surgical History Left Cataract 11/2016 Surgical History Left total hip 12/2016 Surgical History Left breast steretotactic needle biopsy: fibroadenoma 05/2016 Surgical History Right hip Sx, [place] 01/15/1912/2018 Surgical History stent placed for kidney [...] Notes Treatment Notes Treatm ent Clinical Notes May, Type 2 diabetes mellitus wit h diabetic chronic kidney disease (ICD- 10 - E11.22) A1c remains in a good range; continue current medications. May, detention (current) use of insulin (ICD-10 - Z79 .4) May, Hypertension (ICD-10 - I10) Per JNC 8 guidelines, goal BP < 140/90; is meeting goal on current regimen. Advised heart-healthy diet, sodium restriction. May, Low back pain (ICD-10 - M54.5) May, Other chronic pain (ICD-10 - G89.29) May, Pain in thoracic spine (ICD-10 - M54.6) May, Screening for colon cancer (ICD-10 - Z12.11) I recommended colorectal cancer screening and discussed options, including annual iFob, Cologuard every 3 years, or colonoscopy every 10 years. I discussed risks and benefits of each option. PLAN OF TREATMENT Medication Medication Name Sig Start Date Stop Date NovoLOG FlexPen 100 UNIT/ML carb coverage 1 unit:10 g of carbs; plus sliding scale Subcutaneous QID; MDD _#40 Glucose Meter Test - as directed In Vitro QID dx. E11.9 for 90 days Mar, Bisoprolol Fumarate 10 MG TAKE ONE TABLET BY MOUTH EVERY DAY for 30 Amlodipine Besylate 2.5 MG TAKE THREE TABLETS BY MOUTH EVERY DAY for 30 Levemir FlexTouch 100 UNIT/ML 34 units Subcutaneous Daily Trulicity 1.5 MG/0.5ML 0.5 ml Subcutaneous weekly Chlorthalidone 25 MG 1/2 tab Orally Once a day hydrALAZINE HCl 10 MG 1 tablet with food Orally twice a day Treatment Notes Assessment Notes Clinical Notes Type 2 diabetes mellitus with diabetic chronic kidney diseas e A1c remains in a good range; continue current medications. Hypertension Per JNC 8 guidelines , goal BP < 140/90; is meeting goal on current regimen. Advised heart-healthy diet, sodium restriction. Screening for colon cancer I recommended colorectal cancer screening and discussed options, including annual iFob, Cologuard every 3 years, or colonoscopy every 10 years. I discussed risks and benefits of each option. Referrals Referral Date Details Needs physical therapy, [facility] evaluate and treat, [facility] Physical Therapy Needs first screening colono Ricky villafana Next Appt Details 6 month Reason:AWV Provider Name:Daisha Goldstein, 9 10:30:00 AM, [address] [facility], , [place], [address], Provider Name:Jnia Nowak, 2021-12-02 10:30:00 AM, [address] [facility], , [place], [address], Follow Up:6 monthAWV Insurance Providers Payer Name Payer Address Payer Phone Insured Name Patient Relati onship to Insured Coverage Start Date Coverage End Date AETNA MEDICARE AETNA [employer] [address] [facility] [phone] CELI JOHNSON self
--- OUTSIDE RECORDS SUMMARY | 2021-07-13 13:43 | CCD | Continuity of Care Document ---
Author Author [facility] Organization Unknown Address [address] [facility] [facility], [address] [place] [address] Phone [phone] Care Team Providers Care Talent Director Name Role Phone Keily Thomas AUTM AUTM [...] compressor 1units J44.9 Kylah Bui.O. 11/05/2019 Ipratropium [place]/Albuterol Sulfate 0.5-2.5(3)mg/3ML Solution 1 Vial Via Nebulizer [...] CPT Code Status Date Vaccine Lot # [id number] Given 07/23/2020 Flublock, Quadrivalent Vital Signs Date Vital Result Comment 06/14/2021 2:00pm BP Systolic 166 mmHg BP Diastolic 80 mmHg Body Temperature 98.6 F Height 59 inches 4'11" Weight 210.25 lb BMI (Body Mass Index) 42.5 kg/m2 [place] Body Weight 100 lb Weight 95.369 kg BSA (Body Surface Area) 1.88 m2 05/18/2021 1:24pm BP Systolic 130 mmHg BP Diastolic 80 mmHg Heart Rate 72 /min O2 % BldC Oximetry 94 % Height 60 inches 5'0" Weight 208.00 lb BMI (Body Mass Index) 40.6 kg/m2 [place] Body Weight 100 lb Weight 94.349 kg BSA (Body Surface Area) 1.90 m2 Results Test Acquired Date Facility Test Result H/L Range Note FVL/[place] 05/18/2021 [employer] PDFReport SEE IMAGE FVC-Pred 2.69 L FVC-Pre 1.76 L FVC-%Pred-Pre 65 L FVC-LLN 2.08 L Fev1-Pred 2.05 L Fev1-Pre 1.47 L Fev1-%Pred-Pre 71 L Fev1-LLN 1.53 L Fev6-Pred 2.57 L Fev6-Pre 1.76 L Fev6-%Pred-Pre 68 L Fev6-LLN 1.98 L Mlv6zhf-Bqdq 77 % Dkq6ept-Jep 83 % Kje2ico-%Pred-Pre 108 % Byy5leu-FUU 67 % Mzs8ovj-Tydw 96 % Vph0bqs-Qjm 100 % Mou5wam-%Pred-Pre 104 % FEFMax-Pred 5.40 L/E/sec FEFMax-Pre 5.73 L/E/sec FEFMax-%Pred-Pre 106 L/E/sec FEFMax-LLN 3.89 L/E/sec Zvl0663-Zodr 1.91 L/E/sec Uez8805-Rzf 1.70 L/E/sec Lix3020-%Pred-Pre 89 L/E/sec Sqk7246-ZGV 0.82 L/E/sec ExpTime-Pre 6.35 sec Tlc9anx7-Zzby 80 % Xfb0hxr7-Rao 83 % Jse2wcq1-%Pred-Pre 104 % Udl8fep3-ECZ 71 % Procedures Date Code Description Status 05/18/2021 53125 Office/Outpatient Established Mo d MDM 30-39 Min Completed 05/18/2021 56965 Spirometry Completed Medical Devices Description No Information Available Encounters Type Date Location Provider Dx Diagnosis Office Visit 05/18/2021 1:30p [facility] Pulmonary/Thoracic Jaxon kelly D.O. G47.33 Obstructive sleep apnea (adult) (pediatr ic) J44.9 Chronic obstructive pulmonar y disease, unspecified Assessments Date Code Description Provider 06/14/2021 Z12.11 Encounter for screening for anamika gnant neoplasm of colon ANGELICA Lewis 05/18/2021 G47.33 Obstructive sleep apnea (adult) (pediatric) Jaxon Castaneda D.O. 05/18/2021 J44.9 Chronic obstructive pulmonary di sease, unspecified Jaxon Castaneda D.O. Plan of Treatment Future Appointment(s):* 06/16/2021 9:45 am - Kendra Goldberg MD at [facility] Surgery [facility] 05/18/2021 - Jaxon Castaneda [...] Date Ricky Castillo M.D. COLONOSCOPY Scheduled 06/14/2021 [facility] Surgery [address] [place] [address] [phone]
--- OUTSIDE RECORDS SUMMARY | 2021-07-13 13:43 | CCD ---
Author Author [facility] Organization [facility] Address Unknown Phone Unavailable Care Team Providers Care Cost Accounting Analyst Name Role Phone Jina Nowak Unavailable PROBLEMS Type Condition ICD9-CM Code [id number] Code Onset Dates Condition S tatus W/U Status Risk SNOMED Code Notes Problem Gastroesophageal reflux disease, esophagitis pre sence not specified K21.9 Active confirmed 554067946 Problem Chronic obstructive pulmonary disease, unspecified COPD ty pe J44.9 Active confirmed 16631687 Problem History of total right hip arthroplasty Z96.641 Active confirmed 509866639755 Problem MARIZA (obstructive sleep apnea) G47.33 Active confirm ed 80926694 Problem Type 2 diabetes mellitus with diabetic chronic kidney disease E11.22 Active confirmed 89621991 Problem 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 Active confirmed 108312570 Problem Vitamin D deficiency E55.9 Active confirmed 90638416 Problem Hypertension I10 Active confirmed 9307854 3 Problem retirement (current) use of insulin Z79.4 Activ e confirmed 594830051 Problem Thyroid nodule E04.1 Active confirmed 10527 5005 Problem Other chronic pain G89.29 Active confirmed 8 3845090 Problem Gastroesophageal reflux dise ase, unspecified whether esophagitis present K21.9 Active confirmed 553381073 Problem Renal calculus, left N20.0 Active confirmed 20733395 Problem Anxiety F41.9 Active confirmed 79707980 Problem Obesity (BMI 30-39.9) E66.9 Active confirmed 717160278 Problem Chronic diastolic (congestive) heart failure I50.3 2 Active confirmed 590538625 Problem Mixed hyperlipidemia E78.2 Active confirmed 987253178 Problem Diabetic polyneuropathy associated with type 2 d iabetes mellitus E11.42 Active confirmed 47811308 Problem Chronic diastolic heart failure I50.32 Active confi rmed 981684766 Problem Type 2 diabetes mellitus with hyperglycemia E11.65 Active confirmed 83861227 Problem Renal calculus N20.0 Active confirmed 28966 007 Problem Stage 4 chronic kidney disease N18.4 Active confir med 249762590 Problem Vitreomacular adhesion, 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 Active confirmed 90914558421711657 ALLERGIES Allergen (clinical drug ingredient) Drug/Non Drug Allergy do cumented on EMR Reaction Allergy Type Onset Date Status pantoprazole Pantoprazole Sodium([facility] Code:[address]-14) Itching D rug Allergy Active Penicillin (For Allergies Use Only) Hives Drug Allerg y Active ENCOUNTERS from 1955 to 2021-05-24 Encounter Location Date Provider Diagnosis [place] [address] [facility] [phone] [place] [address] May, Jina She IMMUNIZATIONS Vaccine Route Administration Date Status Influenza [...] Education Language: Question Answer Notes Languages spoken: Taiwanese Orthodoxy: Question Answer Notes Orthodoxy 08 Sabianism Sexual Hx: Question Answer Notes Had sex [...] 1 puff Inhalation Once a day Active Sertraline HCl 25 MG TAKE ONE TABLET BY MOUTH EVERY DAY for 90 Active Vitamin D3 High Potency 50,000 wkly Not-Taking Ferrous Sulfate 325 (65 Fe) MG 1 tablet Orally Once a day pt hasn't been taking, but will start taking again Not-Taking OneTouch Verio - DIRECTED DAILY In Vitro three times daily for 90 days Active Bumetanide 2 MG 1 tab Orally once daily Active Calcitriol 0.25 MCG 1 capsule Orally Once a day Active Bisoprolol Fumarate 10 MG TAKE ONE TABLET BY MOUTH VERÓNICA DAY Orally Once a day for 30 Active NovoLOG FlexPen 100 UNIT/ML carb coverage 1 unit:10 g of carbs; plus sliding scale Subcutaneous QID; MDD _#40 Active Ventolin HFA 108 (90 Base) MCG/ACT 2 puffs Inhalation every 4 hours as needed for SOB frequency change Nov, Active amLODIPine Besylate 2.5 MG 3 tabs Orally Daily for 30 Active Atorvastatin Calcium 80 MG 1 tablet Orally Once a day for 90 days Active Ipratropium-Albuterol 0.5-2.5 (3) MG/3ML 3 ml Inhalation bid betty quency change Nov, Active Arnuity Ellipta 200 MCG/ACT 1 puff Inhalation Once a day Active Glucometer as directed Dx E11.9 Dec, Ac tive Glucose Meter Test - as directed In Vitro Daily dx. E11.9 Mar, Active Erythromycin 5 MG/GM 1 application into the lower eyelid of affected eye Ophthalmic Four times a day for 10 day(s) Mar, Active Lancets - as directed one touch three times daily DX: E11. 22 for 30 Days Mar, Active Pen [place] 31G X 6 MM as directed DX. E11.9 Once daily as directed for 30 Active Acetaminophen 500 MG 2 tablets Orally three times daily as neede d MDD 3000mg Active FreeStyle Margie Sensor System - as directed Dx E11.22 2020 Active Serevent Diskus 50 MCG/DOSE 1 puff Inhalation Twice a day for 30 days Active Trulicity 1.5 MG/0.5ML 0.5 ml Subcutaneous weekly Active Levemir FlexTouch 100 UNIT/ML 40 units Subcutaneous Daily for 37 Active Gabapentin 100 MG TAKE ONE CAPSULE BY MOUTH TWICE A DAY for 90 Active FreeStyle Margie [place] - as directed Dx E11.22 Oct, Active Aspirin Adult Low Dose 81 MG 1 tablet Orally Once a day Active Zetia 10 MG 1 tablet Orally [...] Information RESULTS No Results REASON FOR VISIT referral MEDICAL (GENERAL) HISTORY Type Description Date Medical [...] Medical History Pap smears: [facility] at [facility] Medical History Mammograms: Due in [...] fibroadenoma 05/2016 Surgical History Right hip Sx, [place] 01/15/1912/2018 Surgical History stent placed for kidney [...] Start Date Stop Date Gabapentin 100 MG TAKE ONE CAPSULE BY MOUTH TWICE A DAY for 90 Erythromycin 5 MG/GM 1 application into the lower eyelid of affected eye Ophthalmic Four times a day for 10 day(s) Mar, Sertraline HCl 25 MG TAKE ONE TABLET BY MOUTH EVERY DAY for 90 Lancets - as directed one touch three times daily DX: E11.22 for 30 Days Mar, Next Appt Details Provider Name:Jina Dye She, 2021-05-31 10:30:00 AM, [address] [facility], , [place], [address], Provider Name:Daisha Goldstein, 7 10:00:00 AM, [address] , , [place], [address], Insurance Providers Payer Name Payer Address Payer Phone Insured Name Patient Relati onship to Insured Coverage Start Date Coverage End Date AETNA MEDICARE AETNA [place] [employer] [address] [facility] [id number] CELI JOHNSON self
--- OUTSIDE RECORDS SUMMARY | 2021-07-13 13:43 | CCD | Continuity of Care Document ---
Author Author [facility]it[facility] Organization Unknown Address [address] [facility], [address] [place] [address] Phone [phone] Care Team Providers Care Hog Scalder Name Role Phone Keily Thomas AUTM AUTM [...] compressor 1units J44.9 Kylah Bui.O. 11/05/2019 Ipratropium [place]/Albuterol Sulfate 0.5-2.5(3)mg/3ML Solution 1 Vial Via Nebulizer [...] CPT Code Status Date Vaccine Lot # 52690 Given 07/23/2020 Flublock, Quadrivalent Vital Signs Date Vital Result Comment 06/14/2021 2:00pm BP Systolic 166 mmHg BP Diastolic 80 mmHg Body Temperature 98.6 F Height 59 inches 4'11" Weight 210.25 lb BMI (Body Mass Index) 42.5 kg/m2 [place] Body Weight 100 lb Weight 95.369 kg BSA (Body Surface Area) 1.88 m2 05/18/2021 1:24pm BP Systolic 130 mmHg BP Diastolic 80 mmHg Heart Rate 72 /min O2 % BldC Oximetry 94 % Height 60 inches 5'0" Weight 208.00 lb BMI (Body Mass Index) 40.6 kg/m2 [place] Body Weight 100 lb Weight 94.349 kg BSA (Body Surface Area) 1.90 m2 Results Test Acquired Date Facility Test Result H/L Range Note FVL/[place] 05/18/2021 [employer] PDFReport SEE IMAGE FVC-Pred 2.69 L FVC-Pre 1.76 L FVC-%Pred-Pre 65 L FVC-LLN 2.08 L Fev1-Pred 2.05 L Fev1-Pre 1.47 L Fev1-%Pred-Pre 71 L Fev1-LLN 1.53 L Fev6-Pred 2.57 L Fev6-Pre 1.76 L Fev6-%Pred-Pre 68 L Fev6-LLN 1.98 L Ube7ugi-Glrx 77 % Egv6ntp-Yua 83 % Xzq2qmv-%Pred-Pre 108 % Pay9ljs-TNY 67 % Tpr5qky-Ngzb 96 % Qmx2ijn-Hoo 100 % Kgx1lnc-%Pred-Pre 104 % FEFMax-Pred 5.40 L/E/sec FEFMax-Pre 5.73 L/E/sec FEFMax-%Pred-Pre 106 L/E/sec FEFMax-LLN 3.89 L/E/sec Ysx5913-Bdfu 1.91 L/E/sec Ruq7815-Tye 1.70 L/E/sec Bpu6408-%Pred-Pre 89 L/E/sec Iay0462-JAT 0.82 L/E/sec ExpTime-Pre 6.35 sec Eay1dxc4-Yzkw 80 % Nho8aen8-Wre 83 % Nga5mnf6-%Pred-Pre 104 % Tuj7lcf2-GWX 71 % Procedures Date Code Description Status 05/18/2021 61094 Office/Outpatient Established Mo d MDM 30-39 Min Completed 05/18/2021 23172 Spirometry Completed Medical Devices Description No Information Available Encounters Type Date Location Provider Dx Diagnosis Office Visit 05/18/2021 1:30p [facility] Pulmonary/Thoracic Jaxon kelly D.O. G47.33 Obstructive sleep [...] 9:45 am - Kendra Goldberg MD at [facility] Surgery Practice 05/18/2021 - Jaxon Castaneda D.O.* [...] Date Ricky Castillo M.D. COLONOSCOPY Scheduled 06/14/2021 [facility] Surgery [address] [place] [address] [phone]
--- OUTSIDE RECORDS SUMMARY | 2021-07-13 13:43 | CCD | Continuity of Care Document ---
Author Author Ritika BANSAL D.O. Organization [place] [address] Phone [phone] Care Team Providers Care Stone Driller Helper Name Role Phone Keily Thomas AUTM [phone] JordynmikalaJina M.D. AUTM [phone] Problems Active Problems Provider Date Difficulty breathing Jaxon Bansal D.O. Onset: 04/09/2018 Gastroesophageal reflux disease Jaxon Bansal D.O. Onset: 0 04/09/2018 Disturbance of consciousness Jaoxn Bansal D.O. Onset: 03/31 Cough Jaxon Bansal [...] years Allergies, Adverse Reactions, Alerts Active Allergies Reaction Severity Comments Date Penicillin hives 02/26/2018 Medications Active Medications SIG Qnty Indications Ordering Provide r Date Albuterol Sulfate HFA 108(90Base) mcg/Act Aerosol Inhale Two Puffs By Mouth Four Times A Day as Needed 18units Kylah Bui.O. 11/05/2020 Nebulizer Kit/Tubing/Mouthpiece K it use with nebulizer as directed 2units J44.9 Junior BuiO. 01/2020 Compressor Nebulizer Misc dispense one nebulizer compressor 1units Dat44.9 Junior BuiO. 11/05/2019 Ipratropium [place]/Albuterol Sulfate 0.5-2.5(3)mg/3ML Solution 1 Vial Via Nebulizer Four Times A Day as Needed 360units J44.9 Kylah Bui.O. 10/08/2019 Serevent Diskus 50mcg/Dose Aerosol Inhale One puff By Mouth Twice A Day 60units Jaxon Bansal D.O. 0 04/17/2019 CPAP 12cm LCW Jaxon Bansal D.O. 08/12/20 18 Calcitriol 0.25mcg Capsules 1 cap [...] By Mouth Every Day 90units Kylah Bui.O. Arnuity Ellipta 200mcg/Act Aerosol Inhale One puff By Mouth Every Day 90units Jaxon Bansal D.O. Novolog Flexpen 100U nit/ML Solution Pen-Inject [...] CPT Code Status Date Vaccine Lot # [id number] Given 07/23/2020 Afluria, Quadrivalent, 0.5ml , [facility]# [id number] Vital Signs Date Vital Result Comment 05/18/2021 1:24pm BP Systolic 130 mmHg BP Diastolic 80 mmHg Heart Rate 72 /min O2 % BldC Oximetry 94 % Height 60 inches 5'0" Weight 208.00 lb BMI (Body Mass Index) 40.6 kg/m2 [place] Body Weight 100 lb Weight 94.349 kg BSA (Body Surface Area) 1.90 m2 09/08/2020 8:14am BP Systolic 122 mmHg BP Diastolic 82 mmHg Heart Rate 69 /min O2 % BldC Oximetry 94 % Body Temperature 97.9 F Height 60 inches 5'0" Weight 202.00 lb BMI (Body Mass Index) 39.4 kg/m2 [place] Body Weight 100 lb Weight 91.627 kg [...] L Fev6-%Pred-Pre 68 L Fev6-LLN 1.98 L Rtc7kin-Vtbq 77 % Hrq8mrw-Rfk 83 % Ivw4vyj-%Pred-Pre 108 % Oza2bkt-OWP 67 % Hqo4pbd-Hmgs 96 % Nyi8qer-Odh 100 % Rnm6bun-%Pred-Pre 104 % FEFMax-Pred 5.40 L/E/sec FEFMax-Pre 5.73 L/E/sec FEFMax-%Pred-Pre 106 L/E/sec FEFMax-LLN 3.89 L/E/sec Rjh5083-Lzmz 1.91 L/E/sec Cgi1448-Gka 1.70 L/E/sec Gaw4128-%Pred-Pre 89 L/E/sec Ylg5363-OVJ 0.82 L/E/sec ExpTime-Pre 6.35 sec Qtu2hwv4-Ttjx 80 % Szg8rse2-Tuc 83 % Mbr0iqt6-%Pred-Pre 104 % Wnw1ije5-IKS 71 % Procedures Description No Information Available Medical Devices Description No Information Available Encounters Description No Information Available Assessments Date Code Description Provider 05/18/2021 G47.33 Obstructive sleep apnea (adult) (pediatric) Jaxon Bansal D.O. 05/18/2021 J44.9 Chronic obstructive pulmonary di sease, unspecified Jaxon Bansal D.O. Plan of Treatment No Information Available Functional Status Functional Condition Comment Date Status Independent with all ADL's Activ e Independent with all IADL's Acti ve Mental Status Mental Condition Comment Date Status Cognitive ability not impaired A ctive Referrals Description No Information Available
--- OUTSIDE RECORDS SUMMARY | 2021-07-13 13:43 | CCD | Continuity of Care Document ---
Author Author Ritika MAN Organization Unknown Address [address] [facility], [address] [place] [address] Phone [phone] Care Team Providers Care Auto Self Service Station Attendant Name Role Phone Keily Thomas AUTM AUTM [...] compressor 1units J44.9 Kylah Bui.O. 11/05/2019 Ipratropium [place]/Albuterol Sulfate 0.5-2.5(3)mg/3ML Solution 1 Vial Via Nebulizer [...] CPT Code Status Date Vaccine Lot # [id number] Given 07/23/2020 [place], Quadrivalent Vital Signs Date Vital Result Comment 06/14/2021 2:00pm BP Systolic 166 mmHg BP Diastolic 80 mmHg Body Temperature 98.6 F Height 59 inches 4'11" Weight 210.25 lb BMI (Body Mass Index) 42.5 kg/m2 [place] Body Weight 100 lb Weight 95.369 kg BSA (Body Surface Area) 1.88 m2 05/18/2021 1:24pm BP Systolic 130 mmHg BP Diastolic 80 mmHg Heart Rate 72 /min O2 % BldC Oximetry 94 % Height 60 inches 5'0" Weight 208.00 lb BMI (Body Mass Index) 40.6 kg/m2 [place] Body Weight 100 lb Weight 94.349 kg BSA (Body Surface Area) 1.90 m2 Results Test Acquired Date Facility Test Result H/L Range Note FVL/[place] 05/18/2021 [facility] PD[facility]eport SEE IMAGE FVC-Pred 2.69 L FVC-Pre 1.76 L FVC-%Pred-Pre 65 L FVC-LLN 2.08 L Fev1-Pred 2.05 L Fev1-Pre 1.47 L Fev1-%Pred-Pre 71 L Fev1-LLN 1.53 L Fev6-Pred 2.57 L Fev6-Pre 1.76 L Fev6-%Pred-Pre 68 L Fev6-LLN 1.98 L Cfv7hmm-Ewtc 77 % Elo0bki-Lbe 83 % Eje1vlr-%Pred-Pre 108 % Nvk7zza-NSL 67 % Hjh5upy-Jsje 96 % Uvb9pmv-Ruf 100 % Ver2mea-%Pred-Pre 104 % FEFMax-Pred 5.40 L/E/sec FEFMax-Pre 5.73 L/E/sec FEFMax-%Pred-Pre 106 L/E/sec FEFMax-LLN 3.89 L/E/sec Uzy6542-Nheb 1.91 L/E/sec Eks5004-Iuh 1.70 L/E/sec Vuf1210-%Pred-Pre 89 L/E/sec Gar8730-UMG 0.82 L/E/sec ExpTime-Pre 6.35 sec Csf0nzw2-Kjcw 80 % Zcr0hwj8-Ugl 83 % Nht0kfs7-%Pred-Pre 104 % Vwq5gkn0-AVO 71 % Procedures Date Code Description Status 05/18/2021 28738 Office/Outpatient Established Mo d MDM 30-39 Min Completed 05/18/2021 54849 Spirometry Completed Medical Devices Description No Information Available Encounters Type Date Location Provider Dx Diagnosis Office Visit 05/18/2021 1:30p [facility] Pulmonary/Thoracic Jaxon kelly D.O. G47.33 Obstructive sleep [...] 9:45 am - Kendra Goldberg MD at [facility] Surgery Practice 05/18/2021 - Jaxon Castaneda D.O.* [...] Date Ricky Castillo M.D. COLONOSCOPY Scheduled 06/14/2021 [facility] Surgery [address] [place] [address] [phone]
--- OUTSIDE RECORDS SUMMARY | 2021-07-13 13:43 | CCD | Continuity of Care Document ---
Author Author Ritika STERN Organization Unknown Address [address] [place] [address] Phone [phone] Care Team Providers Care Av Specialist Name Role Phone Keily Thomas AUTM [phone] JordynmikalaJina M.D. AUTM [phone] Problems Active Problems Provider Date Difficulty breathing Jaxon Castaneda D.O. Onset: 04/09/2018 Gastroesophageal reflux disease Jaxon Castaneda, D.O. Onset: 0 04/09/2018 Disturbance of consciousness Jaxon Castaneda, D.O. Onset: 03/31 Cough Jaxon Castaneda D.O. Onset: 04/09/2018 Chronic diastolic heart failure Jaxon Castaneda D.O. Onset: 0 04/09/2018 Chronic obstructive lung disease Jaxon Castaneda, D.O. Onset: 05/20/2018 Other nonspecific abnormal finding of lung field Jaxon Castaneda D.O. Onset: 05/20/2018 Immunodeficiency disorder Jaxon Castaneda D.O. Onset: 018 Cardiomegaly Jaxon Castaneda, D.O. Onset: 06/13/2018 Obstructive sleep apnea syndrome Jaxon Castaneda, D.O. Onset: 07/24/2018 Chronic obstructive pulmonary disease with (acute) exa cerbation ANGELICA Otto Onset: 08/21/2018 Abnormal findings on diagnostic imaging of lung Jaxon Castaneda, D.O. Onset: 06/12/2019 Abnormal findings on diagnostic imaging of urinary organs Viviana Castaneda D.O. Onset: 07/03/2019 Social History Type Date Description Comments Sex Unknown ETOH Use Denies alcohol use Tobacco Use Start: 10/01/72 End: 10/01/07 Patient is a forme r smoker hx: 1/2 pack socially x's 35 years Smoking Status Reviewed: 09/08/20 Patient is a former smoker hx : 1/2 pack socially x's 35 years Allergies, Adverse Reactions, Alerts Active Allergies Reaction Severity Comments Date Penicillin hives 02/26/2018 Medications Active Medications SIG Qnty Indications Ordering Provide r Date Albuterol Sulfate HFA 108(90Base) mcg/Act Aerosol Inhale Two Puffs By Mouth Four Times A Day as Needed 18units Junior BuiO. 11/05/2020 Nebulizer Kit/Tubing/Mouthpiece K it use with nebulizer as directed 2units J44.9 Junior BuiO. 01/2020 Compressor Nebulizer Misc dispense one nebulizer compressor 1units Dat44.9 Junior BuiO. 11/05/2019 Ipratropium [place]/Albuterol Sulfate 0.5-2.5(3)mg/3ML Solution 1 Vial Via Nebulizer Four Times A Day as Needed 360units Dat44.9 Kylah Bui.O. 10/08/2019 Serevent Diskus 50mcg/Dose Aerosol Inhale One puff By Mouth Twice A Day 60units Jaxon Castaneda D.O. 0 04/17/2019 CPAP 12cm LCW Kylah Bui.O. 08/12/20 18 Calcitriol 0.25mcg Capsules 1 cap by mouth on Mon, Wed and Sun Unknown Gabapentin 100mg Capsules 1 cap by mouth twice a day 90caps Unknown Ezetimibe 10mg Tablets 1 tab by mouth every night Unknown Acetaminophen 500mg Tablets take 2 tabs by mouth every 8 hours for pain 60tabs Unknown Aspirin [address] 1 tab by mouth every day 60tabs Unknown Vitamin D (Ergocalciferol) 1.25mg (90027 Ut) Capsules 1 tab by mouth every week 30caps Unknown Bumetanide 1mg Tablets once d aily [...] CPT Code Status Date Vaccine Lot # [id number] Given 07/23/2020 Afluria, Quadrivalent, 0.5ml , [facility]# 64114-399-03 Vital Signs Date Vital Result Comment 09/08/2020 8:14am BP Systolic 122 mmHg BP Diastolic 82 mmHg Heart Rate 69 /min O2 % BldC Oximetry 94 % Body Temperature 97.9 F Height 60 inches 5'0" Weight 202.00 lb BMI (Body Mass Index) 39.4 kg/m2 [place] Body Weight 100 lb Weight 91.627 kg BSA (Body Surface Area) 1.87 m2 07/23/2020 11:09am BP Systolic 130 mmHg BP Diastolic 80 mmHg Heart Rate 77 /min O2 % BldC Oximetry 962 % Height 60 inches 5'0" Weight 212.00 lb pt states BMI (Body Mass Index) 41.4 kg/m2 [place] Body Weight 100 lb Weight 96.163 kg BSA (Body Surface Area) 1.91 m2 Results Description No Information Available Procedures Description No Information Available Medical Devices Description No Information Available Encounters Description No Information Available Assessments Description No Information Available Plan of Treatment 09/08/2020 - Jaxon Csataneda D.O.* R91.8 Abnormal findings on diagnostic imaging of lung * G47.33 Obstructive sleep apnea (adult) (pediatric) * * Follow up:* Follow up in six months with spirometry. Functional Status Functional Condition Comment Date Status Independent with all ADL's Activ e Independent with all IADL's Acti ve Mental Status Mental Condition Comment Date Status Cognitive ability not impaired A ctive Referrals Description No Information Available
--- OUTSIDE RECORDS SUMMARY | 2021-07-13 13:43 | CCD | Continuity of Care Document ---
Author Author Ritika BANSAL D.O. [place] [address] Phone [phone] Care Team Providers Care Senior Developer Name Role Phone Keily Thomas AUTM [phone] JordynmikalaJina M.D. AUTM [phone] Problems Active Problems Provider Date Difficulty breathing [...] Misc dispense one nebulizer compressor 1units J44.9 Junior BuiO. 11/05/2019 Ipratropium [place]/Albuterol Sulfate 0.5-2.5(3)mg/3ML Solution 1 Vial Via Nebulizer [...] day 60tabs Unknown Vitamin D (Ergocalciferol) 1.25mg (28255 Ut) Capsules 1 tab by mouth every [...] CPT Code Status Date Vaccine Lot # [id number] Given 07/23/2020 Afluria, Quadrivalent, 0.5ml , [facility]# [id number] Vital Signs Date Vital Result Comment 09/08/2020 8:14am BP Systolic 122 mmHg BP Diastolic 82 mmHg Heart Rate 69 /min O2 % BldC Oximetry 94 % Body Temperature 97.9 F Height 60 inches 5'0" Weight 202.00 lb BMI (Body Mass Index) 39.4 kg/m2 [place] Body Weight 100 lb Weight 91.627 kg BSA (Body Surface Area) 1.87 m2 07/23/2020 11:09am BP Systolic 130 mmHg BP Diastolic 80 mmHg Heart Rate 77 /min O2 % BldC Oximetry 962 % Height 60 inches 5'0" Weight 212.00 lb pt states BMI (Body Mass Index) 41.4 kg/m2 [place] Body Weight 100 lb Weight 96.163 kg BSA (Body Surface Area) 1.91 m2 Results Description No Information Available Procedures Description No Information Available Medical Devices Description No Information Available Encounters Description No Information Available Assessments Description No Information Available Plan of Treatment 09/08/2020 - Jaxon Bansal D.O.* R91.8 Abnormal findings on diagnostic imaging [...]
--- OUTSIDE RECORDS SUMMARY | 2021-07-13 13:43 | CCD ---
Author Author [facility] Organization [facility] Address Unknown Phone Unavailable Care Team Providers Care Electronic Parts Designer Name Role Phone Daisha Goldstein Unavailable PROBLEMS Type Condition ICD9-CM Code [id number] Code Onset Dates Condition S tatus W/U Status Risk SNOMED Code Notes Problem Gastroesophageal reflux disease, esophagitis pre sence not specified K21.9 Active confirmed 876763024 Problem Chronic obstructive pulmonary disease, unspecified COPD ty pe J44.9 Active confirmed 08098150 Problem History of total right hip arthroplasty Z96.641 Active confirmed 049575694732 Problem MARIZA (obstructive sleep apnea) G47.33 Active confirm ed 94889623 Problem Type 2 diabetes mellitus with diabetic chronic kidney disease E11.22 Active confirmed 97272996 Problem 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 Active confirmed 209474927 Problem Vitamin D deficiency E55.9 Active confirmed 19721427 Problem Hypertension I10 Active confirmed 3230484 3 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 Z79.4 Activ e confirmed 488958306 Problem Thyroid nodule E04.1 Active confirmed 04645 5005 Problem Other chronic pain G89.29 Active confirmed 8 6819243 Problem Gastroesophageal reflux dise ase, unspecified whether esophagitis present K21.9 Active confirmed 685236477 Problem Renal calculus, left N20.0 Active confirmed 09656758 Problem Anxiety F41.9 Active confirmed 59506639 Problem Obesity (BMI 30-39.9) E66.9 Active confirmed 928311194 Problem Chronic diastolic (congestive) heart failure I50.3 2 Active confirmed 284508204 Problem Mixed hyperlipidemia E78.2 Active confirmed 456584596 Problem Diabetic polyneuropathy associated with type 2 d iabetes mellitus E11.42 Active confirmed 29795272 Problem Chronic diastolic heart failure I50.32 Active confi rmed 609164590 Problem Type 2 diabetes mellitus with hyperglycemia E11.65 Active confirmed 03896559 Problem Renal calculus N20.0 Active confirmed 82459 007 Problem Stage 4 chronic kidney disease N18.4 Active confir med 756345190 Problem Vitreomacular adhesion, 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 Active confirmed 49058021281688414 ALLERGIES Allergen (clinical drug ingredient) Drug/Non Drug Allergy do cumented on EMR Reaction Allergy Type Onset Date Status pantoprazole Pantoprazole Sodium([facility] Code:[address]-26) Itching D rug Allergy Active Penicillin (For Allergies Use Only) Hives Drug Allerg y Active ENCOUNTERS from 1955 to 2021-06-13 Encounter Location Date Provider Diagnosis [facility] U[facility] [address] [phone] [place] [address] 09 Jun, 2021 Daisha Recore History of kidney stones Z87.442 and Kuldip al calculus, left N20.0 IMMUNIZATIONS Vaccine Route Administration Date Status Influenza [...] Education Language: Question Answer Notes Languages spoken: Japanese Yazidism: Question Answer Notes Yazidism 08 Faith Sexual Hx: Question Answer Notes Had sex [...] FOR REFERRAL No Information VITAL SIGNS Weight 211 lbs Jun, Weight-kg 95.71 kg Jun, Height 60 in Jun, BMI 41.20 kg/m2 Jun, Heart Rate 73 /min Jun, Respiratory Rate 19 /min Jun, Temperature 97.1 degrees Fahrenheit Jun, Oximetry 94 Jun, Blood pressure systolic 138 mm Hg Jun, Blood pressure diastolic 86 mm Hg Jun, MEDICATIONS Medication SIG (Take, Route, Frequency, Duration) Notes Start Da te End Date Status Amlodipine Besylate 2.5 MG TAKE THREE TABLETS BY MOUTH EVERY DAY for 30 Active Chlorthalidone 25 MG 1/2 tab Orally Once a day Active Bumetanide 2 MG 1 tab Orally once daily Active Trulicity 1.5 MG/0.5ML 0.5 ml Subcutaneous weekly Active Glucose Meter Test - as directed In Vitro QID dx. E11.9 for 90 d ays Mar, Active Glucometer as directed Dx E11.9 Dec, Ac tive Arnuity Ellipta 200 MCG/ACT 1 puff Inhalation Once a day Active hydrALAZINE HCl 10 MG 1 tablet with food Orally twice a day Active Acetaminophen 500 MG 2 tablets Orally three times daily as neede d MDD 3000mg Active Ipratropium-Albuterol 0.5-2.5 (3) MG/3ML 3 ml Inhalation bid betty quency change Nov, Active Aspirin Adult Low Dose 81 MG 1 tablet Orally Once a day Active Vitamin D3 High Potency 50,000 wkly Not-Taking Lancets - as directed one touch three times daily DX: E11. 22 for 30 Days Mar, Active Gabapentin 100 MG TAKE ONE CAPSULE BY MOUTH TWICE A DAY for Active Calcitriol 0.25 MCG 1 capsule Orally Once a day Active Zetia 10 MG 1 tablet Orally Once a day Active Ventolin HFA 108 (90 Base) MCG/ACT 2 puffs Inhalation every 4 hours as needed for SOB frequency change Nov, Active FreeStyle Margie [place] - as directed Dx E11.22 Oct, Active Sertraline HCl 25 MG TAKE ONE TABLET BY MOUTH EVERY DAY for Active NovoLOG FlexPen 100 UNIT/ML carb coverage 1 unit:10 g of carbs; plus sliding scale Subcutaneous QID; MDD _#40 Active Levemir FlexTouch 100 UNIT/ML 34 units Subcutaneous Daily Active Incruse Ellipta 62.5 MCG/INH 1 puff Inhalation Once a day Active Bisoprolol Fumarate 10 MG TAKE ONE TABLET BY MOUTH EVERY DAY for 30 Active FreeStyle Margie Sensor System - as directed Dx E11.22 13 J , 2020 Active Atorvastatin Calcium 80 MG 1 tablet Orally Once a day for 90 days Active Pen [place] 31G X 6 MM as directed DX. E11.9 Once daily as directed for 30 Active Serevent Diskus 50 MCG/DOSE 1 puff Inhalation Twice a day for 30 days Active OneTouch Verio - DIRECTED DAILY In Vitro three times daily for 90 days Active Ferrous Sulfate 325 (65 Fe) MG 1 tablet Orally Once a day pt hasn't been taking, but will start taking again Not-Taking PROCEDURES No Information RESULTS No Results REASON FOR VISIT 3 month f/u w/ [facility] (GENERAL) HISTORY Type Description Date Medical [...] Medical History Pap smears: [facility] at [facility] Medical History Mammograms: Due in [...] fibroadenoma 05/2016 Surgical History Right hip Sx, [place] 01/15/1912/2018 Surgical History stent placed for kidney [...] Notes Treatment Notes Treatm ent Clinical Notes Jun, History of kidney stones (ICD-10 - Z87.442) Jun, Renal calculus, left (ICD-10 - N20.0) PLAN OF TREATMENT Treatment Notes Test Name Order Date ABDOMEN 1 VIEW (KUB) PLZ 2021-06-09 Next Appt Details prn Reason: Provider Name:Jina Nowak, 2021-12-02 10:30:00 AM, [address] [facility], , [place], [address], Insurance Providers Payer Name Payer Address Payer Phone Insured Name Patient Relati onship to Insured Coverage Start Date Coverage End Date AETNA MEDICARE A[employer] [place] [address] [facility] [id number] CELI JHONSON self
--- OUTSIDE RECORDS SUMMARY | 2021-07-13 13:43 | CCD ---
Author Author [facility] Organization [facility] Address Unknown Phone Unavailable Care Team Providers Care Edi Programmer Name Role Phone Daisha Goldstein Unavailable PROBLEMS Type Condition ICD9-CM Code [id number] Code Onset Dates Condition S tatus W/U Status Risk SNOMED Code Notes Problem Gastroesophageal reflux disease, esophagitis pre sence not specified K21.9 Active confirmed 516030880 Problem Chronic obstructive pulmonary disease, unspecified COPD ty pe J44.9 Active confirmed 51608810 Problem History of total right hip arthroplasty Z96.641 Active confirmed 668286595239 Problem MARIZA (obstructive sleep apnea) G47.33 Active confirm ed 56217517 Problem Type 2 diabetes mellitus with diabetic chronic kidney disease E11.22 Active confirmed 39597507 Problem 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 Active confirmed 924742826 Problem Vitamin D deficiency E55.9 Active confirmed 40016355 Problem Hypertension I10 Active confirmed 8008380 3 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.4 Activ e confirmed 024241658 Problem Thyroid nodule E04.1 Active confirmed 53378 5005 Problem Other chronic pain G89.29 Active confirmed 8 6571353 Problem Gastroesophageal reflux dise ase, unspecified whether esophagitis present K21.9 Active confirmed 646376186 Problem Renal calculus, left N20.0 Active confirmed 54360881 Problem Anxiety F41.9 Active confirmed 16694473 Problem Obesity (BMI 30-39.9) E66.9 Active confirmed 823637679 Problem Chronic diastolic (congestive) heart failure I50.3 2 Active confirmed 895361345 Problem Mixed hyperlipidemia E78.2 Active confirmed 579335737 Problem Diabetic polyneuropathy associated with type 2 d iabetes mellitus E11.42 Active confirmed 90124825 Problem Chronic diastolic heart failure I50.32 Active confi rmed 288219386 Problem Type 2 diabetes mellitus with hyperglycemia E11.65 Active confirmed 74275776 Problem Renal calculus N20.0 Active confirmed 97309 007 Problem Stage 4 chronic kidney disease N18.4 Active confir med 859630476 Problem Vitreomacular adhesion, 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 Active confirmed 39617458744534648 ALLERGIES Allergen (clinical drug ingredient) Drug/Non Drug Allergy do cumented on EMR Reaction Allergy Type Onset Date Status pantoprazole Pantoprazole Sodium([facility] Code:[address]-88) Itching D rug Allergy Active Penicillin (For Allergies Use Only) Hives Drug Allerg y Active ENCOUNTERS from 1955 to 2021-06-09 Encounter Location Date Provider Diagnosis [facility] [address] [phone] [place] [address] 09 Jun, 2021 Daisha Goldstein IMMUNIZATIONS Vaccine Route Administration Date Status Influenza [...] Education Language: Question Answer Notes Languages spoken: Montenegrin Congregation: Question Answer Notes Congregation 08 Sabianism Sexual Hx: Question Answer Notes [...] MOUTH TWICE A DAY for 90 Active Calcitriol 0.25 MCG 1 capsule Orally Once a day Active Zetia 10 MG 1 tablet Orally Once a day Active Ventolin HFA 108 (90 Base) MCG/ACT 2 puffs Inhalation every 4 hours as needed for SOB frequency change Nov, Active FreeStyle Margie [place] - as directed Dx E11.22 Oct, Active Sertraline HCl 25 MG TAKE ONE TABLET BY MOUTH EVERY DAY for 90 Active NovoLOG FlexPen 100 UNIT/ML carb coverage [...] - as directed Dx E11.22 2020 Active Atorvastatin Calcium 80 MG 1 tablet Orally Once a day for 90 days Active Pen [place] 31G X 6 MM as directed DX. [...] Information RESULTS No Results REASON FOR VISIT [facility] (GENERAL) HISTORY Type Description Date [...] Medical History Pap smears: [facility] at [facility] Medical History Mammograms: Due in October Medical History MARIZA - sometimes uses CPAP Medical History COPD - Dr. Castaneda/Franky Hough Surgical History tubal ligation Surgical History left and right inquinal hernia Surgical History (plate and screws neck) Surgical History Left Cataract 11/2016 Surgical History Left total hip 12/2016 Surgical History Left breast steretotactic needle biopsy: fibroadenoma 05/2016 Surgical History Right hip Sx, [place] 01/15/1912/2018 Surgical History stent placed for kidney [...] PLAN OF TREATMENT Next Appt Details Provider Name:Jina Nowak, 2021-12-02 10:30:00 AM, [address] [facility], , [place], [address], Insurance Providers Payer Name Payer Address Payer Phone Insured Name Patient Relati onship to Insured Coverage Start Date Coverage End Date AETNA MEDICARE A[employer] [place] [address] [facility] [id number] CELI JOHNSON self
--- OUTSIDE RECORDS SUMMARY | 2021-07-13 13:43 | CCD ---
Author Author [employer] [facility] Organization [facility] Address Unknown Phone Unavailable Care Team Providers Care Electrolog Operator Name Role Phone Jina Nowak Unavailable PROBLEMS Type Condition ICD9-CM Code LOH51-PE Code Onset Dates Condition S tatus W/U Status Risk SNOMED Code Notes Problem Gastroesophageal reflux disease, esophagitis pre sence not specified K21.9 Active confirmed 671019421 Problem Chronic obstructive pulmonary disease, unspecified COPD ty pe J44.9 Active confirmed 53904063 Problem History of total right hip arthroplasty Z96.641 Active confirmed 211156525167 Problem MARIZA (obstructive sleep apnea) G47.33 Active confirm ed 84515948 Problem Type 2 diabetes mellitus with diabetic chronic kidney disease E11.22 Active confirmed 07618024 Problem 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 Active confirmed 578630248 Problem Vitamin D deficiency E55.9 Active confirmed 10020244 Problem Hypertension I10 Active confirmed 6329643 3 Problem halfway (current) use of insulin Z79.4 Activ e confirmed 334946496 Problem Thyroid nodule E04.1 Active confirmed 35401 5005 Problem Other chronic pain G89.29 Active confirmed 8 1655170 Problem Gastroesophageal reflux dise ase, unspecified whether esophagitis present K21.9 Active confirmed 935552010 Problem Renal calculus, left N20.0 Active confirmed 06652127 Problem Anxiety F41.9 Active confirmed 39471655 Problem Obesity (BMI 30-39.9) E66.9 Active confirmed 796227584 Problem Chronic diastolic (congestive) heart failure I50.3 2 Active confirmed 355365455 Problem Mixed hyperlipidemia E78.2 Active confirmed 863346024 Problem Diabetic polyneuropathy associated with type 2 d iabetes mellitus E11.42 Active confirmed 33095780 Problem Chronic diastolic heart failure I50.32 Active confi rmed 443582770 Problem Type 2 diabetes mellitus with hyperglycemia E11.65 Active confirmed 52045334 Problem Renal calculus N20.0 Active confirmed 37529 007 Problem Stage 4 chronic kidney disease N18.4 Active confir med 339302530 Problem Vitreomacular adhesion, 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 Active confirmed [id number] ALLERGIES Allergen (clinical drug ingredient) Drug/Non Drug Allergy do cumented on EMR Reaction Allergy Type Onset Date Status pantoprazole Pantoprazole Sodium([facility] Code:[address]-84) Itching D rug Allergy Active Penicillin (For Allergies Use Only) Hives Drug Allerg y Active ENCOUNTERS from 1955 to 2021-05-26 Encounter Location Date Provider Diagnosis [place] [id number] [facility] [phone] [place] [address] May, Jina Nowak Type 2 diabetes mellitus wit h diabetic chronic kidney disease E11.22 IMMUNIZATIONS Vaccine [...] Education Language: Question Answer Notes Languages spoken: Czech Gnosticism: Question Answer Notes Gnosticism 08 Congregational Sexual Hx: Question Answer Notes Had sex [...] Vitamin D3 High Potency 50,000 wkly Not-Taking Glucose Meter Test - as directed In Vitro Daily dx. E11.9 for 90 days Mar, Active OneTouch Verio - DIRECTED DAILY In [...] 1 puff Inhalation Once a day Active FreeStyle Margie Sensor System - as directed Dx E11.22 2020 Active Glucometer as directed Dx E11.9 Dec, Ac tive Erythromycin 5 MG/GM 1 application into the lower eyelid of affected eye Ophthalmic Four times a day for 10 day(s) Mar, Active FreeStyle Margie Roxana - as directed Dx E11.22 Oct, Active Pen Thayer 31G X 6 MM as directed DX. E11.9 Once daily as directed for 30 Active Acetaminophen 500 MG 2 tablets Orally three times daily as neede d MDD 3000mg Active Lancets - as directed one touch three times daily DX: E11. 22 for 30 Days Mar, Active Serevent Diskus 50 MCG/DOSE 1 puff Inhalation Twice a day for 30 days Active Trulicity 1.5 MG/0.5ML 0.5 ml Subcutaneous weekly Active Levemir FlexTouch 100 UNIT/ML 40 units Subcutaneous Daily for 37 Active Gabapentin 100 MG TAKE ONE CAPSULE BY MOUTH TWICE A DAY for 90 Active Ferrous Sulfate 325 (65 Fe) MG 1 tablet Orally Once a day pt hasn't been taking, but will start taking again Not-Taking Aspirin Adult Low Dose 81 MG [...] Information RESULTS No Results REASON FOR VISIT test strips MEDICAL (GENERAL) HISTORY Type Description Date Medical [...] Medical History Pap smears: [facility] at [facility] Medical History Mammograms: Due in October [...] Surgical History Right hip Sx, Jaz 01/15/1912/2018 Surgical History stent placed for kidney [...] times a day for 10 day(s) Mar, Glucose Meter Test - as directed In Vitro Daily dx. E11.9 fo r 90 days Mar, Lancets - as directed one touch three times daily DX: E11.22 for 30 Days Mar, Sertraline HCl 25 MG TAKE ONE TABLET BY MOUTH EVERY DAY for 90 Next Appt Details Provider Name:Jina Nowak, 2021-05-31 10:30:00 AM, [address] [facility], , [place], [address], Provider Name:Daisha Goldstein, 9 10:30:00 AM, [address], , [place], [address], Insurance Providers Payer Name Payer Address Payer Phone Insured Name Patient Relati onship to Insured Coverage Start Date Coverage End Date [employer] MEDICARE [employer] INSURANCE [employer] [address] [facility] [id number] CELI JOHNSON self
--- OUTSIDE RECORDS SUMMARY | 2021-07-13 13:45 | CCD ---
Author Author [facility] Address Unknown Phone Unavailable Care Team Providers Care Dynamite Reclaimer Name Role Phone JORGE MYERS MD Unavailable Unavailable JORGE MYERS [...] Unavailable Unavailable JORGE MYERS MD Unavailable Unavailable SYSTEM IN, NOT IN PROVIDER Unavailable Unavailable ZAKARIYYA, MAGAN MD Unavailable Unavailable ZAKARIYYA, MAGAN MD Unavailable Unavailable ZAKARIYYA, MAGAN MD Unavailable Unavailable ZAKARIYYA, MAGAN MD Unavailable Unavailable ZAKARIYYA, MAGAN MD Unavailable Unavailable ZAKARIYYA, MAGAN MD Unavailable Unavailable ZAKARIYYA, MAGAN MD Unavailable Unavailable ZAKARIYYA, MAGAN MD Unavailable Unavailable ZAKARIYYA, MAGAN MD Unavailable Unavailable ZAKARIYYA, HASTAMY MD Unavailable Unavailable ZAKARIYYA, HASTAMY MD Unavailable Unavailable ZAKARIYYA, MAGAN OTTO Unavailable Unavailable ZAKARIYYA, MAGAN MD Unavailable Unavailable ZAKARIYYA, HASTAMY MD Unavailable Unavailable ZAKARIYYA, HASTAMY MD Unavailable Unavailable ZAKARIYYA, HASTAMY MD Unavailable Unavailable ZAKARIYYA, HASTAMY MD Unavailable Unavailable ZAKARIYYA, MAGAN MD Unavailable Unavailable ZAKARIYYA, MAGAN MD Unavailable Unavailable ZAKARIYYA, HASTAMY MD Unavailable Unavailable ZAKARIYYA, HASTAMY MD Unavailable Unavailable ZAKARIYYA, HASTAMY MD Unavailable Unavailable ZAKARIYYA, HASTAMY MD Unavailable Unavailable ZAKARIYYA, MAGAN OTTO Unavailable Unavailable ZAKARIYYA, MAGAN OTTO Unavailable Unavailable ZAKARIYYA, HASTAMY MD Unavailable Unavailable ZAKARIYYA, MAGAN OTTO Unavailable Unavailable ZAKARIYYA, MAGAN OTTO Unavailable Unavailable ZAKARIYYA, MAGAN OTTO Unavailable Unavailable ZAKARIYYA, MAGAN OTTO Unavailable Unavailable ZAKARIYYA, MAGAN OTTO Unavailable Unavailable ZAKARIYYA, MAGAN OTTO Unavailable Unavailable ZAKARIYYA, MAGAN OTTO Unavailable Unavailable ZAKARIYYA, MAGAN OTTO Unavailable Unavailable ZAKARIYYA, MAGAN OTTO Unavailable Unavailable ZAKARIYYA, MAGAN OTTO Unavailable Unavailable ZAKARIYYA, MAGAN OTTO Unavailable Unavailable ZAKARIYYA, MAGAN OTTO Unavailable Unavailable ZAKARIYYA, MAGAN OTTO Unavailable Unavailable ZAKARIYYA, MAGAN OTTO Unavailable Unavailable ZAKARIYYA, MAGAN OTTO Unavailable Unavailable ZAKARIYYA, MAGAN OTTO Unavailable Unavailable ZAKARIYYA, MAGAN OTTO Unavailable Unavailable ZAKARIYYA, MAGAN OTTO Unavailable Unavailable ZAKARIYYA, MAGAN OTTO Unavailable Unavailable ZAKARIYYA, MAGAN OTTO Unavailable Unavailable ZAKARIYYA, MAGAN OTTO Unavailable Unavailable ZAKARIYYA, MAGAN OTTO Unavailable Unavailable ZAKARIYYA, MAGAN OTTO Unavailable Unavailable OeamyersGustavo MD Unavailable Unavailable OellersGustavo MD Unavailable Unavailable OellersGustavo MD Unavailable Unavailable OellersGustavo MD Unavailable Unavailable OellersGustavo MD Unavailable Unavailable OellersGustavo MD Unavailable Unavailable OellersGustavo MD Unavailable Unavailable OellersGustavo MD Unavailable Unavailable OellersGustavo MD Unavailable Unavailable OellersGustavo MD Unavailable Unavailable OellersGustavo MD Unavailable Unavailable OellersGustavo MD Unavailable Unavailable OellersGustavo MD Unavailable Unavailable OellersGustavo MD Unavailable Unavailable OellersGustavo MD Unavailable Unavailable OellersGustavo MD Unavailable Unavailable OellersGustavo MD Unavailable Unavailable OellersGustavo MD Unavailable Unavailable OellersGustavo MD Unavailable Unavailable OellersGustavo MD Unavailable Unavailable OellersGustavo MD Unavailable Unavailable OellersGustavo MD Unavailable Unavailable OellersGustavo MD Unavailable Unavailable OellersGustavo MD Unavailable Unavailable OellersGustavo MD Unavailable Unavailable Oellers, R Franky MD Unavailable Unavailable OellersGustavo MD Unavailable Unavailable OellersGustavo MD Unavailable Unavailable OellersGustavo MD Unavailable Unavailable OellersGustavo MD Unavailable Unavailable OellersGustavo MD Unavailable Unavailable OellersGustavo MD Unavailable Unavailable OellersGustavo MD Unavailable Unavailable OellersGustavo MD Unavailable Unavailable OellersGustavo MD Unavailable Unavailable OellersGustavo MD Unavailable Unavailable OellersGustavo MD Unavailable Unavailable OellersGustavo MD Unavailable Unavailable Oellers R Franky OTTO Unavailable Unavailable Oellers, R Franky OTTO Unavailable Unavailable OellersGustavo MD Unavailable Unavailable OellersGustavo MD Unavailable Unavailable OellersGustavo MD Unavailable Unavailable OellersGustavo MD Unavailable Unavailable OellersGustavo MD Unavailable Unavailable Oellers, Gustavo Wilkins MD Unavailable Unavailable OellersGustavo MD Unavailable Unavailable OellersGustavo MD Unavailable Unavailable Gustavo Aaron MD Unavailable Unavailable OellersGustavo MD Unavailable Unavailable OellersGustavo MD Unavailable Unavailable OellersGustavo MD Unavailable Unavailable ZHANG, SHOMA PH.D. Unavailable Unavailable ZHANG, SHOMA PH.D. Unavailable Unavailable ZHANG, SHOMA PH.D. Unavailable Unavailable ZHANG, SHOMA PH.D. Unavailable Unavailable ZHANG, SHOMA PH.D. Unavailable Unavailable ZHANG, SHOMA PH.D. Unavailable Unavailable ZHANG, SHOMA PH.D. Unavailable Unavailable ZHANG, SHOMA PH.D. Unavailable Unavailable ZHANG, SHOMA PH.D. Unavailable Unavailable ZHANG, SHOMA PH.D. Unavailable Unavailable ZHANG, SHOMA PH.D. Unavailable Unavailable Hunter Moreno MD Unavailable Unavailable [...] Unavailable Unavailable Hunter Moreno MD Unavailable Unavailable Hutner Moreno MD Unavailable Unavailable Tiffanie, O Samah Unavailable Unavailable Tiffanie, O Samah MD Unavailable [...] Unavailable Tiffanie, O Samah MD Unavailable Unavailable ZAHIRA BUSTILLO MD Unavailable [...] Unavailable Unavailable ZAHIRA BUSTILLO MD Unavailable Unavailable JORGE MYERS MD Unavailable [...] Unavailable JORGE MYERS MD Unavailable Unavailable JORGE YMERS MD Unavailable Unavailable JORGE MYERS MD Unavailable Unavailable JORGE MYERS MD Unavailable Unavailable JORGE MYERS MD Unavailable Unavailable JORGE MYERS MD Unavailable Unavailable JORGE MYERS MD Unavailable Unavailable JORGE MYERS MD Unavailable Unavailable JORGE MYERS MD Unavailable Unavailable JORGE MYERS MD Unavailable Unavailable Gustavo Aaron MD Unavailable Unavailable Gustavo Aaron MD Unavailable Unavailable Gustavo Aaron MD Unavailable Unavailable Gustavo Aaron MD Unavailable Unavailable Gustavo Aaron MD Unavailable Unavailable Oellers, Gustavo Wilkins MD Unavailable Unavailable Oellers, Gustavo Wilkins MD Unavailable Unavailable Oellers, Gustavo Wilkins MD Unavailable Unavailable Oellers, Gustavo Wilkins MD Unavailable Unavailable Oellers, Gustavo Wilkins MD Unavailable Unavailable Oellers, Gustavo Wilkins MD Unavailable Unavailable Oellers, Gustavo Wilkins MD Unavailable Unavailable Oellers, Gustavo Wilkins MD Unavailable Unavailable Oellers, Gustavo Wilkins MD Unavailable Unavailable Oellers, Gustavo Wilkins MD Unavailable Unavailable Oellers, Gustavo Wilkins MD Unavailable Unavailable Oellers, Gustavo Wilkins MD Unavailable Unavailable Oellers, Gustavo Wilkins MD Unavailable Unavailable Oellers, Gustavo Wilkins MD Unavailable Unavailable Oellers, Gustavo Wilkins MD Unavailable Unavailable Oellers, Gustavo Wilkins MD Unavailable Unavailable Oellers, Gustavo Wilkins MD Unavailable Unavailable Oellers, Gustavo Wilkins MD Unavailable Unavailable Oellers, Gustavo Wilkins MD Unavailable Unavailable Oellers, Gustavo Wilkins MD Unavailable Unavailable Oellers, Gustavo Wilkins MD Unavailable Unavailable Oellers, Gustavo Wilkins MD Unavailable Unavailable Oellers, Gustavo Wilkins MD Unavailable Unavailable Oellers, Gustavo Wilkins MD Unavailable Unavailable Oellers, Gustavo Wilkins MD Unavailable Unavailable Oellers, Gustavo Wilkins MD Unavailable Unavailable Oellers, Gustavo Wilkins MD Unavailable Unavailable Oellers, Gustavo Wilkins MD Unavailable Unavailable Oellers, Gustavo Wilkins MD Unavailable Unavailable Oellers, Gustavo Wilkins MD Unavailable Unavailable Oellers, Gustavo Wilkins MD Unavailable Unavailable Oellers, Gustavo Wilkins MD Unavailable Unavailable Oellers, Gustavo Wilkins MD Unavailable Unavailable Oellers, Gustavo Wilkins MD Unavailable Unavailable Oellers, Gustavo Wilkins MD Unavailable Unavailable Oellers, Gustavo Wilkins MD Unavailable Unavailable OellersGustavo MD Unavailable Unavailable OellersGustavo MD Unavailable Unavailable Oellers, Gustavo Wilkins MD Unavailable Unavailable Oellers, Gustavo Wilkins MD Unavailable Unavailable Oellers, Gustavo Wilkins MD Unavailable Unavailable Oellers, Gustavo Wilkins MD Unavailable Unavailable Oellers, Gustavo Wilkins MD Unavailable Unavailable Oellers, Gustavo Wilkins MD Unavailable Unavailable Oellers, Gustavo Wilkins MD Unavailable Unavailable Oellers, Gustavo Wilkins MD Unavailable Unavailable Oellers, Gustavo Wilkins MD Unavailable Unavailable Sabine HERRING MD Unavailable Unavailable Sabine HERRING MD Unavailable Unavailable Sabine HERRING MD Unavailable Unavailable HERRING, Sabine MARCH MD Unavailable Unavailable KUNASANI, JOEL FAN MD Unavailable Unavailable KUNASANI, JOEL FAN MD Unavailable Unavailable SEARS, A ABDOUL DO Unavailable Unavailable SEARS, A ABDOUL DO Unavailable Unavailable SEARS, A ABDOUL DO Unavailable Unavailable SEARS, A ABDOUL DO Unavailable Unavailable SEARS, A ABDOUL DO Unavailable Unavailable SEARS, A ABDOUL DO Unavailable Unavailable SEARS, A ABDOUL DO Unavailable Unavailable SEARS, A ABDOUL DO Unavailable Unavailable SEARS, A ABDOUL DO Unavailable Unavailable SEARS, A ABDOUL DO Unavailable Unavailable SEARS, A ABDOUL DO Unavailable Unavailable SEARS, A ABDOUL DO Unavailable Unavailable SEARS, A ABDOUL DO Unavailable Unavailable SEARS, A ABDOUL DO Unavailable Unavailable SEARS, A ABDOUL DO Unavailable Unavailable SEARS, A ABDOUL DO Unavailable Unavailable SEARS, A ABDOUL DO Unavailable Unavailable SEARS, A ABDOUL DO Unavailable Unavailable SEARS, A ABDOUL DO Unavailable Unavailable SEARS, A ABDOUL DO Unavailable Unavailable SEARS, A ABDOUL DO Unavailable Unavailable SEARS, A ABDOUL DO Unavailable Unavailable SEARS, A ABDOUL DO Unavailable Unavailable SEARS, A ABDOUL DO Unavailable Unavailable SEARS, A ABDOUL DO Unavailable Unavailable SEARS, A ABDOUL DO Unavailable Unavailable SEARS, A ABDOUL DO Unavailable Unavailable SEARS, A ABDOUL DO Unavailable Unavailable SEARS, A ABDOUL DO Unavailable Unavailable SEARS, A ABDOUL DO Unavailable Unavailable SEARS, A ABDOUL DO Unavailable Unavailable SEARS, A ABDOUL DO Unavailable Unavailable SEARS, A ABDOUL DO Unavailable Unavailable SEARS, A ABDOUL DO Unavailable Unavailable SEARS, A ABDOUL DO Unavailable Unavailable SEARS, A ABDOUL DO Unavailable Unavailable SEARS, A ABDOUL DO Unavailable Unavailable SEARS, A ABDOUL DO Unavailable Unavailable SEARS, A ABDOUL DO Unavailable Unavailable SEARS, A ABDOUL DO Unavailable Unavailable SEARS, A ABDOUL DO Unavailable Unavailable SEARS, A ABDOUL DO Unavailable Unavailable SEARS, A ABDOUL DO Unavailable Unavailable SEARS, A ABDOUL DO Unavailable Unavailable SEARS, A ABDOUL DO Unavailable Unavailable SEARS, A ABDOUL DO Unavailable Unavailable SEARS, A ABDOUL DO Unavailable Unavailable SEARS, A ABDOUL DO Unavailable Unavailable HERRING, Sabine MARCH MD Unavailable Unavailable HERRING, Sabine MARCH MD Unavailable Unavailable HERRING, Sabine MARCH MD Unavailable Unavailable HERRING, W JOAQUIM MD Unavailable Unavailable JAZ, [id number] Unavailable Unavailable Hicks, L Christine PA Unavailable [...] Unavailable Hicks, L Christine PA Unavailable Unavailable Porter, L Jazmine RPA Unavailable Unavailable Porter, L Jazmine RPA Unavailable Unavailable Porter, L Jazmine RPA Unavailable Unavailable Porter, L Jazmine RPA Unavailable Unavailable Porter, L Jazmine RPA Unavailable Unavailable Porter, L Jazmine RPA Unavailable Unavailable Porter, L Jazmine RPA Unavailable Unavailable Porter, L Jazmine RPA Unavailable Unavailable Porter, L Jazmine RPA Unavailable Unavailable Porter, L Jazmine RPA Unavailable Unavailable Porter, L Jazmine RPA Unavailable Unavailable Porter, L Jazmine RPA Unavailable Unavailable Porter, L Jazmine RPA Unavailable Unavailable Porter, L Jazmine RPA Unavailable Unavailable Porter, L Jazmine RPA Unavailable Unavailable Porter, L Jazmine RPA Unavailable Unavailable Porter, L Jazmine RPA Unavailable Unavailable Porter, L Jazmine RPA Unavailable Unavailable Porter, L Jazmine RPA Unavailable Unavailable Porter, L Jazmine RPA Unavailable Unavailable Porter, L Jazmine RPA Unavailable Unavailable Porter, L Jazmine RPA Unavailable Unavailable Porter, L Jazmine RPA Unavailable Unavailable Porter, L Jazmine RPA Unavailable Unavailable Porter, L Jazmine RPA Unavailable Unavailable Porter, L Jazmine RPA Unavailable Unavailable Porter, L Jazmine RPA Unavailable Unavailable Porter, L Jazmine RPA Unavailable Unavailable Porter, L Jazmine RPA Unavailable Unavailable Porter, L Jazmine RPA Unavailable Unavailable Porter, L Jazmine RPA Unavailable Unavailable Porter, L Jazmine RPA Unavailable Unavailable ZHANG, SHOMA PH.D. Unavailable Unavailable [...] is protected by Article 27-F of the [facility] Public Health law. If you continue you may have access to information: Regarding HIV / AIDS; Provided by facilities licensed or operated by the [facility] Office of Mental Health; or Provided by the [facility] Office for People With Developmental Disabilities. If such information is present, then the following [facility] mandated warning applies: This information has been [...] law may result in a fine or [place] health [place] facility sentence or both. A general authorization for the release of medical or other information is NOT sufficient authorization for further disc losure. Family History Family Member Name Family Member Gender Family Member Status Date o f Status Description Data Source(s) Unknown Unknown Problem [facility] Unknown Unknown Problem MEDENT ([facility]) father,brother Unknown Male Problem MEDENT ([facility] ) () Unknown Male Problem MED[facility] ([facility]) Encounters Encounter Providers Location Date Indications Data Source(s ) [place] [address] [address] 07/12/2021 12:00:00 AM EDT eCW1 ([facility]) Outpatient Attender: MENG Bah/Sania/Ezequiel/Re indl 06/16/2021 01:00:00 PM EDT MEDENT ([facility] ) Outpatient Attender: Jazmine Bah/Sania/Ezequiel/R eindl 06/14/2021 01:45:00 PM EDT MEDENT ([facility], ) [place] [address] [address] 06/09/2021 12:00:00 AM EDT eCW1 ([facility]) Unknown [address] [facility] [place] [address] 06/09/2021 12:00:00 AM EDT eCW1 ([facility]) [place]patient [address] [facility] [place] [address] 05/31/2021 12:00:00 AM EDT eCW1 ([facility]) [place] [address] [address] 05/26/2021 12:00:00 AM EDT eCW1 ([facility]) Outpatient Attender: ABDOUL Toro/Sania/Ezequiel/Nj 05/18/2021 01:30:00 PM EDT MEDENT ([facility]) [place] [address] [address] 05/18/2021 12:00:00 AM EDT eCW1 ([facility]) [place] [address] [address] 04/15/2021 12:00:00 AM EDT eCW1 ([facility]) [place] [address] [address] 04/06/2021 12:00:00 AM EDT eCW1 ([facility]) [place] [address] [address] 03/28/2021 12:00:00 AM EDT eCW1 ([facility]) [place] [address] [address] 03/28/2021 12:00:00 AM EDT eCW1 ([facility]) [place] [address] [address] 03/07/2021 12:00:00 AM EDT eCW1 ([facility]) [place] [address] [address] 03/03/2021 12:00:00 AM EDT eCW1 ([facility]) [place] [address] [address] 03/03/2021 12:00:00 AM EDT eCW1 ([facility]) Outpatient Attender: Franky Aaron MD 02/22/2021 08:56:5 9 AM EDT [facility]) Attender: Franky Aaron MD 02/22/2021 05:10:00 AM EDT - 02/22/2021 10:38:00 AM EDT [facility] Outpatient Attender: Franky Aaron MDAdmitter: Franky parikh MD 02/22/2021 05:10:00 AM EDT - 02/22/2021 10:38:00 AM EDT PROLIFERATIVE DIABETIC RETINOPATHY LEFT EYE H43.822 [facility] PROLIFERATIVE DIABETIC RETINOPATHY LEFT EYE H43.822 Patient discharged. [place] [address] [address] 02/14/2021 12:00:00 AM EDT eCW1 ([facility]) [place] [address] [address] 02/11/2021 12:00:00 AM EDT eCW1 ([facility]) (Cysto1) Urology [address] [place] [address] 02/11/2021 12:00:00 AM EDT eCW1 ([facility]) [place] [address] [address] 02/10/2021 12:00:00 AM EDT eCW1 ([facility]) [place] [address] [address] 01/31/2021 12:00:00 AM EDT eCW1 ([facility]) [place] [address] [address] 01/25/2021 12:00:00 AM EDT eCW1 ([facility]) [place] [address] [address] 01/20/2021 12:00:00 AM EDT eCW1 ([facility]) Unknown [address] [facility] [place] [address] 01/06/2021 12:00:00 AM EDT eCW1 ([facility]) [place] [address] [address] 01/06/2021 12:00:00 AM EDT eCW1 ([facility]) Outpatient [address] [facility] [place] [address] 01/03/2021 12:00:00 AM EDT eCW1 ([facility]) [place] [address] [address] 12/27/2020 12:00:00 AM EDT eCW1 ([facility]) [place] [address] [address] 12/27/2020 12:00:00 AM EDT eCW1 ([facility]) [place] [address] [address] 12/20/2020 12:00:00 AM EDT eCW1 ([facility]) [place] [address] [address] 12/16/2020 12:00:00 AM EDT eCW1 ([facility]) [place] [address] [address] 12/15/2020 12:00:00 AM EDT eCW1 ([facility]) [place] [address] [address] 12/08/2020 12:00:00 AM EST eCW1 ([facility]) [place] [address] [address] 12/06/2020 12:00:00 AM EST eCW1 ([facility]) [place] [address] [address] 12/03/2020 12:00:00 AM EST eCW1 ([facility]) [place] [address] [address] 12/02/2020 12:00:00 AM EST eCW1 ([facility]) [place] [address] [address] 11/26/2020 12:00:00 AM EST eCW1 ([facility]) [place] [address] [address] 11/26/2020 12:00:00 AM EST eCW1 ([facility]) [place] [address] [address] 11/22/2020 12:00:00 AM EST eCW1 ([facility]) [place] [address] [address] 11/18/2020 12:00:00 AM EST eCW1 ([facility]) [place] [address] [address] 11/04/2020 12:00:00 AM EST eCW1 ([facility]) [place] [address] [address] 10/27/2020 12:00:00 AM EST eCW1 ([facility]) Office Visit, Est Pt., Level 3 PC [address] [place] [address] 10/13/2020 12:00:00 AM EST eCW1 ([facility]) [place] [address] [address] 10/08/2020 12:00:00 AM EST eCW1 ([facility]) [place] [address] [address] 09/27/2020 12:00:00 AM EST [facility] [place] [address] [address] 09/21/2020 12:00:00 AM EST [facility]CW1 [facility]) Outpatient Attender: Jese Moreno MD Main office - [facility] 09/09/2020 07:00:00 AM EST MEDENT ([facility], ) [place] [address] [address] 09/03/2020 12:00:00 AM EST eCW1 ([facility]) [place] [address] [address] 08/19/2020 12:00:00 AM EST [facility] Outpatient Attender: Christine HUFF 12:00:00 AM EST [facility] Unknown [address] [address] 08/04/2020 12:00:00 AM EST eCW1 ([facility]) [place] [address] [address] 07/26/2020 12:00:00 AM EDT eCW1 ([facility]) Office Visit, Est Pt., Level 4 PC [address] [place] [address] 07/22/2020 12:00:00 AM EDT eCW1 ([facility]) [place] [address] [address] 07/22/2020 12:00:00 AM EDT eCW1 ([facility]) Inpatient Attender: ILIANA ZHANG PH.D.A ttender: JOAQUIM HERRING MDAttender: JOIE MYERS MDAttender: ZAHIRA BUSTILLO MDAdmitter: ZAHIRA BUSTILLO MD 07/05/2020 08:00:23 PM EDT [facility] Inpatient Attender: JOAQUIM HERRING MDA ttender: JOIE MYERS MDAttender: MAGAN CHAN MDAttender: ILIANA ZHANG PH.D.Admitter: MAGAN CHAN MD 07/05/2020 05:47:00 PM EDT - 07/12/2020 06:59:00 PM EDT T7-T8 OSTEOMYLITIS PNEUMONIA ACUTE CHRONIC KIDNEY DISEASE [facility] T7-T8 OSTEOMYLITIS PNEUMONIA ACUTE CHRON IC KIDNEY DISEASE Patient discharged. Inpatient Attender: [id number] CROUSEAttender: JOIE MYERS MD 07/05/2020 05:47:00 PM EDT [facility] ( in Healthcare facility) Attender: ESTHER MYERS MDAdmitter: MAGAN CHAN MD 07/05/2020 05:47:00 PM EDT [facility] Outpatient Referrer: [employer]ER [facility] [place] 07/05/2020 1 2:57:00 PM EDT 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itis [facility] 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 itis Immunizations Vaccine Date Status Description Data Source(s) COVID-19 VACCINE Moderna 05/31/2021 12:00:00 AM EDT completed [facility] Vaccine Series Complete: YESThis Data wa s Submitted to [facility] Via [employer]. COVID-19 VACCINE Moderna 05/02/2021 12:00:00 AM EDT completed [place] Vaccine Series Complete: NOThis Data was Submitted to [facility] [employer]. influenza, recombinant, quadrIvalent,injectable, prese rvative free 11/26/2020 01:58:00 PM EST completed eCW1 ([facility]) influenza, recombinant, quadrIvalent,injectable, prese rvative free 11/26/2020 01:58:00 PM EST completed eCW1 ([facility]) influenza, recombinant, quadrIvalent,injectable, prese rvative free 11/26/2020 01:58:00 PM EST completed eCW1 ([facility]) influenza, recombinant, quadrIvalent,injectable, prese rvative free 11/26/2020 01:58:00 PM EST completed eCW1 ([facility]) influenza, recombinant, quadrIvalent,injectable, prese rvative free 11/26/2020 01:58:00 PM EST completed eCW1 ([facility]) influenza, recombinant, quadrIvalent,injectable, prese rvative free 11/26/2020 01:58:00 PM EST completed eCW1 ([facility]) influenza, recombinant, quadrIvalent,injectable, prese rvative free 11/26/2020 01:58:00 PM EST completed eCW1 ([facility]) influenza, recombinant, quadrIvalent,injectable, prese rvative free 11/26/2020 01:58:00 PM EST completed eCW1 ([facility]) influenza, recombinant, quadrIvalent,injectable, prese rvative free 11/26/2020 01:58:00 PM EST completed eCW1 ([facility]) influenza, recombinant, quadrIvalent,injectable, prese rvative free 11/26/2020 01:58:00 PM EST completed eCW1 ([facility]) influenza, recombinant, quadrIvalent,injectable, prese rvative free 11/26/2020 01:58:00 PM EST completed eCW1 ([facility]) influenza, recombinant, quadrIvalent,injectable, prese rvative free 11/26/2020 01:58:00 PM EST completed eCW1 ([facility]) influenza, recombinant, quadrIvalent,injectable, prese rvative free 11/26/2020 01:58:00 PM EST completed eCW1 ([facility]) influenza, recombinant, quadrIvalent,injectable, prese rvative free 11/26/2020 01:58:00 PM EST completed eCW1 ([facility]) influenza, recombinant, quadrIvalent,injectable, prese rvative free 11/26/2020 01:58:00 PM EST completed eCW1 ([facility]) influenza, recombinant, quadrIvalent,injectable, prese rvative free 11/26/2020 01:58:00 PM EST completed eCW1 ([facility]) influenza, recombinant, quadrIvalent,injectable, prese rvative free 11/26/2020 01:58:00 PM EST completed eCW1 ([facility]) influenza, recombinant, quadrIvalent,injectable, prese rvative free 11/26/2020 01:58:00 PM EST completed eCW1 ([facility]) influenza, recombinant, quadrIvalent,injectable, prese rvative free 11/26/2020 01:58:00 PM EST completed eCW1 ([facility]) influenza, recombinant, quadrIvalent,injectable, prese rvative free 11/26/2020 01:58:00 PM EST completed eCW1 ([facility]) influenza, recombinant, quadrIvalent,injectable, prese rvative free 11/26/2020 01:58:00 PM EST completed eCW1 ([facility]) influenza, recombinant, quadrIvalent,injectable, prese rvative free 11/26/2020 01:58:00 PM EST completed eCW1 ([facility]) influenza, recombinant, quadrIvalent,injectable, prese rvative free 11/26/2020 01:58:00 PM EST completed eCW1 ([facility]) influenza, recombinant, quadrIvalent,injectable, prese rvative free 11/26/2020 01:58:00 PM EST completed eCW1 ([facility]) influenza, recombinant, quadrIvalent,injectable, prese rvative free 11/26/2020 01:58:00 PM EST completed eCW1 ([facility]) influenza, recombinant, quadrIvalent,injectable, prese rvative free 11/26/2020 01:58:00 PM EST completed eCW1 ([facility]) influenza, recombinant, quadrIvalent,injectable, prese rvative free 11/26/2020 01:58:00 PM EST completed eCW1 ([facility]) influenza, recombinant, quadrIvalent,injectable, prese rvative free 11/26/2020 01:58:00 PM EST completed eCW1 ([facility]) influenza, recombinant, quadrIvalent,injectable, prese rvative free 11/26/2020 01:58:00 PM EST completed eCW1 ([facility]) influenza, recombinant, quadrIvalent,injectable, prese rvative free 11/26/2020 01:58:00 PM EST completed eCW1 ([facility]) influenza, recombinant, quadrIvalent,injectable, prese rvative free 11/26/2020 01:58:00 PM EST completed eCW1 ([facility]) influenza, recombinant, quadrIvalent,injectable, prese rvative free 11/26/2020 01:58:00 PM EST completed eCW1 ([facility]) influenza, recombinant, quadrIvalent,injectable, prese rvative free 11/26/2020 01:58:00 PM EST completed eCW1 ([facility]) influenza, recombinant, quadrIvalent,injectable, prese rvative free 11/26/2020 01:58:00 PM EST completed eCW1 ([facility]) New in 2011. IIV4 07/23/2020 11:38:00 AM EDT completed MEDENT ([facility], ) New in 2011. IIV4 07/23/2020 05:28:00 AM EDT completed MEDENT ([facility], ) Medications Medication Brand Name Start Date Product Form Dose Route Admi nistrative Instructions Pharmacy Instructions Status Indications Reaction Description Data Source(s) 50 mcg/dose 07/02/2021 12:00:00 AM EDT blister with device 6 0 INHALE ONE PUFF BY MOUTH TWICE A DAY INHALE ONE PUFF BY MOUTH TWICE A DAY SOLD: 07/07/2021 [facility] 10 mg 07/02/2021 12:00:00 AM EDT tablet 90 TAKE ONE TABLET BY MOUTH EVERY DAY TAKE ONE TABLET BY MOUTH EVERY DAY SOLD: 07/07/2021 [facility] 90 mcg/actuation 06/18/2021 12:00:00 AM EDT HFA aerosol inha ler 8 INHALE TWO PUFFS BY MOUTH FOUR TIMES A DAY NEEDED INHALE TWO PUFFS BY MOUTH FOUR TIMES A DAY NEEDED SOLD: 07/07/2021 [facility] 90 mcg/actuation 06/18/2021 12:00:00 AM EDT HFA aerosol inha ler 8 INHALE TWO PUFFS BY MOUTH FOUR TIMES A DAY NEEDED INHALE TWO PUFFS BY MOUTH FOUR TIMES A DAY NEEDED SOLD: 06/21/2021 [facility] 2.5 mg 06/01/2021 12:00:00 AM EDT tablet 90 TAKE THREE TABLETS BY MOUTH EVERY DAY TAKE THREE TABLETS BY MOUTH EVERY DAY SOLD: 07/07/2021 [facility] 10 mg 06/01/2021 12:00:00 AM EDT tablet 30 TAKE ONE TABLET BY MOUTH EVERY DAY TAKE ONE TABLET BY MOUTH EVERY DAY SOLD: 06/02/2021 [facility] 10 mg 06/01/2021 12:00:00 AM EDT tablet 30 TAKE ONE TABLET BY MOUTH EVERY DAY TAKE ONE TABLET BY MOUTH EVERY DAY SOLD: 07/07/2021 [facility] 2.5 mg 06/01/2021 12:00:00 AM EDT tablet 90 TAKE THREE TABLETS BY MOUTH EVERY DAY TAKE THREE TABLETS BY MOUTH EVERY DAY SOLD: 06/02/2021 [facility] 100 mg 05/02/2021 12:00:00 AM EDT capsule 180 TAKE ONE CAPSULE BY MOUTH TWICE A DAY TAKE ONE CAPSULE BY MOUTH TWICE A DAY SOLD: 05/05/2021 [facility] 25 mg 05/02/2021 12:00:00 AM EDT tablet 90 TAKE ONE TABLET BY MOUTH EVERY DAY TAKE ONE TABLET BY MOUTH EVERY DAY SOLD: 05/05/2021 [facility] 100 unit/mL (3 mL) 04/29/2021 12:00:00 AM EDT insulin pen 15 INJECT 40 UNITS DAILY SUBCUTANEOUS INJECT 40 UNITS DAILY SUBCUTANEOUS SOLD: 05/05/2021 [facility] 33 gauge 04/15/2021 12:00:00 AM EDT misc 100 TEST THREE TIMES A DAY DIRECTED TEST THREE TIMES A DAY DIRECTED SOLD: 05/18/2021 [facility] Lancets - Lancets - 04/15/2021 12:00:00 AM EDT act bhupinder Lancets - eCW1 ([facility]) Lancets - Lancets - 04/15/2021 12:00:00 AM EDT act bhupinder Lancets - eCW1 ([facility]) Erythromycin 0.005 MG/MG Ophthalmic Ointment Erythromy eleuterio 5 MG/GM Erythromycin 5 MG/GM 04/15/2021 12:00:00 AM EDT active Erythromycin 5 MG/GM eCW1 ([facility]) 33 gauge 04/15/2021 12:00:00 AM EDT misc 100 TEST THREE TIMES A DAY DIRECTED TEST THREE TIMES A DAY DIRECTED SOLD: 06/21/2021 [facility] 5 mg/gram (0.5 %) 04/15/2021 12:00:00 AM EDT ointment 3 USE 1 APPLICATION INTO THE LOWER EYELID OF AFFECTED EYE FOUR TIMES A DAY FOR 10 DAYS USE 1 APPLICATION INTO THE LOWER EYELID OF AFFECTED EYE FOUR TIMES A DAY FOR 10 DAYS SOLD: 04/18/2021 [facility] Lancets - Lancets - 04/15/2021 12:00:00 AM EDT act bhupinder Lancets - eCW1 ([facility]) Lancets - Lancets - 04/15/2021 12:00:00 AM EDT act bhupinder Lancets - eCW1 ([facility]) 33 gauge 04/15/2021 12:00:00 AM EDT misc 100 TEST THREE TIMES A DAY DIRECTED TEST THREE TIMES A DAY DIRECTED SOLD: 04/18/2021 [facility] Erythromycin 0.005 MG/MG Ophthalmic Ointment Erythromy eleuterio 5 MG/GM Erythromycin 5 MG/GM 04/15/2021 12:00:00 AM EDT active Erythromycin 5 MG/GM eCW1 ([facility]) Lancets - Lancets - 04/15/2021 12:00:00 AM EDT act bhupinder Lancets - eCW1 ([facility]) Erythromycin 0.005 MG/MG Ophthalmic Ointment Erythromy eleuterio 5 MG/GM Erythromycin 5 MG/GM 04/15/2021 12:00:00 AM EDT active Erythromycin 5 MG/GM eCW1 ([facility]) Lancets - Lancets - 04/15/2021 12:00:00 AM EDT act bhupinder Lancets - eCW1 ([facility]) Lancets - Lancets - 04/15/2021 12:00:00 AM EDT act bhupinder Lancets - eCW1 ([facility]) Bumetanide 2 MG Oral Tablet BUMETANIDE 04/08/2021 12:00:00 AM EDT tabl et 90 TAKE ONE TABLET BY MOUTH EVERY DAY TAKE ONE TABLET BY MOUTH EVERY DAY SOLD: 04/15/2021 [facility] 100 unit/mL (3 mL) 04/07/2021 12:00:00 AM EDT insulin pen 15 INJECT 40 UNITS SUBCUTANEOUSLY ONCE DAILY INJECT 40 UNITS SUBCUTANEOUSLY ONCE DAILY SOLD: 04/08/2021 [facility] 10 mg 03/31/2021 12:00:00 AM EDT tablet 30 TAKE ONE TABLET BY MOUTH EVERY DAY TAKE ONE TABLET BY MOUTH EVERY DAY SOLD: 04/01/2021 [facility] 2.5 mg 03/31/2021 12:00:00 AM EDT tablet 90 TAKE THREE TABLETS BY MOUTH EVERY DAY TAKE THREE TABLETS BY MOUTH EVERY DAY SOLD: 04/01/2021 [facility] 2.5 mg 03/31/2021 12:00:00 AM EDT tablet 90 TAKE THREE TABLETS BY MOUTH EVERY DAY TAKE THREE TABLETS BY MOUTH EVERY DAY SOLD: 05/05/2021 [facility] 10 mg 03/31/2021 12:00:00 AM EDT tablet 30 TAKE ONE TABLET BY MOUTH EVERY DAY TAKE ONE TABLET BY MOUTH EVERY DAY SOLD: 05/05/2021 [facility] BLOOD SUGAR DIAGNOSTIC 03/29/2021 12:00:00 AM EDT strip 300 DIRECTED THREE TIMES A DAY DIRECTED THREE TIMES A DAY SOLD: 04/01/2021 [facility] BLOOD SUGAR DIAGNOSTIC 03/29/2021 12:00:00 AM EDT strip 300 DIRECTED THREE TIMES A DAY DIRECTED THREE TIMES A DAY SOLD: 06/07/2021 [facility] 31 gauge x 1/4" 03/14/2021 12:00:00 AM EDT needle 30 USE ONCE DAILY DIRECTED USE ONCE DAILY DIRECTED SOLD: 05/18/2021 [facility] 31 gauge x 1/4" 03/14/2021 12:00:00 AM EDT needle 30 USE ONCE DAILY DIRECTED USE ONCE DAILY DIRECTED SOLD: 06/21/2021 [facility] 31 gauge x 1/4" 03/14/2021 12:00:00 AM EDT needle 30 USE ONCE DAILY DIRECTED USE ONCE DAILY DIRECTED SOLD: 03/18/2021 [facility] 31 gauge x 1/4" 03/14/2021 12:00:00 AM EDT needle 30 USE ONCE DAILY DIRECTED USE ONCE DAILY DIRECTED SOLD: 04/18/2021 [facility] 50 mcg/dose 03/03/2021 12:00:00 AM EDT blister with device 6 0 INHALE ONE PUFF BY MOUTH TWICE A DAY INHALE ONE PUFF BY MOUTH TWICE A DAY SOLD: 06/02/2021 [facility] 50 mcg/dose 03/03/2021 12:00:00 AM EDT blister with device 6 0 INHALE ONE PUFF BY MOUTH TWICE A DAY INHALE ONE PUFF BY MOUTH TWICE A DAY SOLD: 05/05/2021 [facility] 50 mcg/dose 03/03/2021 12:00:00 AM EDT blister with device 6 0 INHALE ONE PUFF BY MOUTH TWICE A DAY INHALE ONE PUFF BY MOUTH TWICE A DAY SOLD: 03/04/2021 [facility] 80 mg 03/03/2021 12:00:00 AM EDT tablet 90 TAKE ONE TABLET BY MOUTH EVERY DAY TAKE ONE TABLET BY MOUTH EVERY DAY SOLD: 06/02/2021 [facility] 80 mg 03/03/2021 12:00:00 AM EDT tablet 90 TAKE ONE TABLET BY MOUTH EVERY DAY TAKE ONE TABLET BY MOUTH EVERY DAY SOLD: 03/04/2021 [facility] 50 mcg/dose 03/03/2021 12:00:00 AM EDT blister with device 6 0 INHALE ONE PUFF BY MOUTH TWICE A DAY INHALE ONE PUFF BY MOUTH TWICE A DAY SOLD: 04/02/2021 [facility] 10 mg 03/01/2021 12:00:00 AM EDT tablet 60 TAKE ONE TABLET BY MOUTH TWICE A DAY TAKE ONE TABLET BY MOUTH TWICE A DAY SOLD: 07/07/2021 [facility] 10 mg 03/01/2021 12:00:00 AM EDT tablet 60 TAKE ONE TABLET BY MOUTH TWICE A DAY TAKE ONE TABLET BY MOUTH TWICE A DAY SOLD: 03/04/2021 [facility] 10 mg 03/01/2021 12:00:00 AM EDT tablet 60 TAKE ONE TABLET BY MOUTH TWICE A DAY TAKE ONE TABLET BY MOUTH TWICE A DAY SOLD: 05/05/2021 [facility] 10 mg 03/01/2021 12:00:00 AM EDT tablet 60 TAKE ONE TABLET BY MOUTH TWICE A DAY TAKE ONE TABLET BY MOUTH TWICE A DAY SOLD: 06/02/2021 [facility] 10 mg 03/01/2021 12:00:00 AM EDT tablet 60 TAKE ONE TABLET BY MOUTH TWICE A DAY TAKE ONE TABLET BY MOUTH TWICE A DAY SOLD: 04/02/2021 [facility] 90 mcg/actuation 02/25/2021 12:00:00 AM EDT HFA aerosol inha ler 18 INHALE TWO PUFFS BY MOUTH FOUR TIMES A DAY NEEDED INHALE TWO PUFFS BY MOUTH FOUR TIMES A DAY NEEDED SOLD: 02/26/2021 [facility] 90 mcg/actuation 02/25/2021 12:00:00 AM EDT HFA aerosol inha ler 18 INHALE TWO PUFFS BY MOUTH FOUR TIMES A DAY NEEDED INHALE TWO PUFFS BY MOUTH FOUR TIMES A DAY NEEDED SOLD: 04/01/2021 [facility] 90 mcg/actuation 02/25/2021 12:00:00 AM EDT HFA aerosol inha ler 18 INHALE TWO PUFFS BY MOUTH FOUR TIMES A DAY NEEDED INHALE TWO PUFFS BY MOUTH FOUR TIMES A DAY NEEDED SOLD: 04/25/2021 [facility] 90 mcg/actuation 02/25/2021 12:00:00 AM EDT HFA aerosol inha ler 18 INHALE TWO PUFFS BY MOUTH FOUR TIMES A DAY NEEDED INHALE TWO PUFFS BY MOUTH FOUR TIMES A DAY NEEDED SOLD: 05/25/2021 [facility] Calcitriol 0.04323 MG Oral Capsule 0.25 mcg CALCITRIOL 02/21/2021 12:00:00 AM EDT capsule 36 ONE CAPSULE BY MOUTH ON , SUNDAY AND SUNDAY ONE CAPSULE BY MOUTH ON SUNDAY, SUNDAY AND SUNDAY SOLD: 06/02/2021 [facility] Calcitriol 0.54323 MG Oral Capsule 0.25 mcg CALCITRIOL 02/21/2021 12:00:00 AM EDT capsule 36 ONE CAPSULE BY MOUTH ON , SUNDAY AND SUNDAY ONE CAPSULE BY MOUTH ON SUNDAY, SUNDAY AND SUNDAY SOLD: 02/25/2021 [facility] 100 unit/mL (3 mL) 02/14/2021 12:00:00 AM EDT insulin pen 15 INJECT 40 UNITS SUBCUTANEOUSLY ONCE DAILY INJECT 40 UNITS SUBCUTANEOUSLY ONCE DAILY SOLD: 02/14/2021 [facility] 1 % 01/17/2021 12:00:00 AM EDT drops,suspension 10 INTILL ONE DROP IN THE LEFT EYE FOUR TIMES A DAY DIRECTED START AFTER SURGERY INTILL ONE DROP IN THE LEFT EYE FOUR TIMES A DAY DIRECTED START AFTER SURGERY SOLD: 01/19/2021 [facility] 0.3 % 01/17/2021 12:00:00 AM EDT drops 5 INSTILL ONE DROP IN THE LEFT EYE FOUR TIMES A DAY START AFTER SURGERY INSTILL ONE DROP IN THE LEFT EYE FOUR TI MES A DAY START AFTER SURGERY SOLD: 01/19/2021 [facility] 0.3 % 01/17/2021 12:00:00 AM EDT drops 5 INSTILL ONE DROP IN THE LEFT EYE FOUR TIMES A DAY START AFTER SURGERY INSTILL ONE DROP IN THE LEFT EYE FOUR TI MES A DAY START AFTER SURGERY SOLD: 02/25/2021 [facility] 1 % 01/17/2021 12:00:00 AM EDT drops,suspension 10 INTILL ONE DROP IN THE LEFT EYE FOUR TIMES A DAY DIRECTED START AFTER SURGERY INTILL ONE DROP IN THE LEFT EYE FOUR TIMES A DAY DIRECTED START AFTER SURGERY SOLD: 02/25/2021 [facility] 0.4 mg 01/06/2021 12:00:00 AM EDT capsule 20 TAKE ONE CAPSULE BY MOUTH EVERY DAY TAKE ONE CAPSULE BY MOUTH EVERY DAY SOLD: 01/06/2021 [facility] 100 unit/mL (3 mL) 01/05/2021 12:00:00 AM EDT insulin pen 15 INJECT 2 UNITS SUBCUTANEOUSLY THREE TIMES A DAY WITH MEALS INJECT 2 UNITS SUBCUTANEOUSLY THREE TIMES A DAY WITH MEALS SOLD: 05/18/2021 [facility] 100 unit/mL (3 mL) 01/05/2021 12:00:00 AM EDT insulin pen 15 INJECT 2 UNITS SUBCUTANEOUSLY THREE TIMES A DAY WITH MEALS INJECT 2 UNITS SUBCUTANEOUSLY THREE TIMES A DAY WITH MEALS SOLD: 01/06/2021 [facility] 10 mg 01/04/2021 12:00:00 AM EDT tablet 30 TAKE ONE TABLET BY MOUTH EVERY DAY TAKE ONE TABLET BY MOUTH EVERY DAY SOLD: 01/04/2021 [facility] 10 mg 01/04/2021 12:00:00 AM EDT tablet 30 TAKE ONE TABLET BY MOUTH EVERY DAY TAKE ONE TABLET BY MOUTH EVERY DAY SOLD: 03/04/2021 [facility] 10 mg 01/04/2021 12:00:00 AM EDT tablet 30 TAKE ONE TABLET BY MOUTH EVERY DAY TAKE ONE TABLET BY MOUTH EVERY DAY SOLD: 02/02/2021 [facility] 2.5 mg 01/03/2021 12:00:00 AM EDT tablet 90 TAKE THREE TABLETS BY MOUTH EVERY DAY TAKE THREE TABLETS BY MOUTH EVERY DAY SOLD: 03/04/2021 [facility] Amlodipine 2.5 MG Oral Tablet AMLODIPINE BESYLATE 01/03/2021 12: 00:00 AM EDT tablet 90 TAKE THREE TABLETS BY MOUTH EVER Y DAY TAKE THREE TABLETS BY MOUTH EVERY DAY SOLD: 02/02/2021 [facility] 80 mg 01/03/2021 12:00:00 AM EDT tablet 30 TAKE ONE TABLET BY MOUTH EVERY DAY TAKE ONE TABLET BY MOUTH EVERY DAY SOLD: 01/04/2021 [facility] Amlodipine 2.5 MG Oral Tablet AMLODIPINE BESYLATE 01/03/2021 12: 00:00 AM EDT tablet 90 TAKE THREE TABLETS BY MOUTH EVER Y DAY TAKE THREE TABLETS BY MOUTH EVERY DAY SOLD: 01/04/2021 [facility] 10 mg 12/28/2020 12:00:00 AM EDT tablet 90 TAKE ONE TABLET BY MOUTH EVERY DAY TAKE ONE TABLET BY MOUTH EVERY DAY SOLD: 04/01/2021 [facility] 10 mg 12/28/2020 12:00:00 AM EDT tablet 90 TAKE ONE TABLET BY MOUTH EVERY DAY TAKE ONE TABLET BY MOUTH EVERY DAY SOLD: 01/01/2021 [facility] 100 unit/mL (3 mL) 12/21/2020 12:00:00 AM EDT insulin pen 15 INJECT 40 UNITS SUBCUTANEOUSLY ONCE DAILY INJECT 40 UNITS SUBCUTANEOUSLY ONCE DAILY SOLD: 12/24/2020 [facility] Calcitriol 0.41402 MG Oral Capsule 0.25 mcg CALCITRIOL 12/20/2020 12:00:00 AM EDT capsule 60 TAKE ONE CAPSULE BY MOUTH EV DOYLE DAY SUNDAY-SUNDAY TAKE ONE CAPSULE BY MOUTH EVERY DAY SUNDAY-SUNDAY SOLD: 12/24/2020 [facility] 0.25 mcg 12/20/2020 12:00:00 AM EDT capsule 60 TAKE ONE CAPSULE BY MOUTH EVERY DAY SUNDAY-SUNDAY TAKE ONE CAPSULE BY MOUTH EVERY DAY SUNDAY-SUNDAY SOLD : 04/01/2021 [facility] 100 mg 12/17/2020 12:00:00 AM EDT capsule 14 TAKE ONE CAPSULE BY MOUTH TWICE A DAY FOR 7 DAYS TAKE ONE CAPSULE BY MOUTH TWICE A DAY FOR 7 DAYS SOLD: 12/24/2020 [facility] Bumetanide 0.5 MG Oral Tablet BUMETANIDE 11/20/2020 12:00:00 AM EST ta blet 90 TAKE ONE TABLET BY MOUTH EVERY DAY TAKE ONE TABLET BY MOUTH EVERY DAY SOLD: 11/22/2020 [facility] Bumetanide 0.5 MG Oral Tablet BUMETANIDE 11/20/2020 12:00:00 AM EST ta blet 90 TAKE ONE TABLET BY MOUTH EVERY DAY TAKE ONE TABLET BY MOUTH EVERY DAY SOLD: 02/25/2021 [facility] 80 mg 11/11/2020 12:00:00 AM EST tablet 30 TAKE ONE TABLET BY MOUTH EVERY DAY TAKE ONE TABLET BY MOUTH EVERY DAY SOLD: 11/12/2020 [facility] 90 mcg/actuation 11/06/2020 12:00:00 AM EST HFA aerosol inha ler 18 INHALE TWO PUFFS BY MOUTH FOUR TIMES A DAY NEEDED INHALE TWO PUFFS BY MOUTH FOUR TIMES A DAY NEEDED SOLD: 02/02/2021 [facility] 90 mcg/actuation 11/06/2020 12:00:00 AM EST HFA aerosol inha ler 18 INHALE TWO PUFFS BY MOUTH FOUR TIMES A DAY NEEDED INHALE TWO PUFFS BY MOUTH FOUR TIMES A DAY NEEDED SOLD: 11/07/2020 [facility] 90 mcg/actuation 11/06/2020 12:00:00 AM EST HFA aerosol inha ler 18 INHALE TWO PUFFS BY MOUTH FOUR TIMES A DAY NEEDED INHALE TWO PUFFS BY MOUTH FOUR TIMES A DAY NEEDED SOLD: 12/27/2020 [facility] 90 mcg/actuation 11/06/2020 12:00:00 AM EST HFA aerosol inha ler 18 INHALE TWO PUFFS BY MOUTH FOUR TIMES A DAY NEEDED INHALE TWO PUFFS BY MOUTH FOUR TIMES A DAY NEEDED SOLD: 12/02/2020 [facility] 60 ACTUAT Albuterol 0.09 MG/ACTUAT Metered Dose Inhaler Albu terol Sulfate HFA 11/05/2020 12:00:00 AM EST RESPIRATORY active MEDENT ([facility], ) 1.5 mg/0.5 mL 11/01/2020 12:00:00 AM EST [...] CAPSULE BY MOUTH TWICE A DAY SOLD: 02/02/2021 [facility] 100 mg 10/27/2020 12:00:00 AM EST capsule 180 TAKE ONE CAPSULE BY MOUTH TWICE A DAY TAKE ONE CAPSULE BY MOUTH TWICE A DAY SOLD: 10/31/2020 [facility] 25 mg 10/27/2020 12:00:00 AM EST tablet 90 TAKE ONE TABLET BY MOUTH EVERY DAY TAKE ONE TABLET BY MOUTH EVERY DAY SOLD: 02/02/2021 [facility] 25 mg 10/27/2020 12:00:00 AM [...] MOUTH EVERY DAY SOLD: 10/16/2020 [facility] [employer] [facility] - [employer] - 10/13/2020 12:00:00 AM EST active [employer] [facility] [employer] [facility] - eCW1 ([facility]) [employer] - [employer] - 10/13/2020 12:00:00 AM EST active [employer] - eCW1 ([facility]) [employer] - [employer] - 10/13/2020 12:00:00 AM EST active [employer] - eCW1 ([facility]) [employer] - [employer] - 10/13/2020 12:00:00 AM EST active [employer] - eCW1 ([facility]) pantoprazole 20 MG Delayed Release Oral Tablet Pantopr azole Sodium 20 MG Pantoprazole Sodium 20 MG 10/13/2020 12:00:00 AM EST 1.0 {tablet} suspended Pantoprazole Sodium 20 MG eCW1 ( [facility]) pantoprazole 20 MG Delayed Release Oral Tablet Pantopr azole Sodium 20 MG Pantoprazole Sodium 20 MG 10/13/2020 12:00:00 AM EST 1.0 {tablet} suspended Pantoprazole Sodium 20 MG eCW1 ( [facility]) pantoprazole 20 MG Delayed Release Oral Tablet Pantopr azole Sodium 20 MG Pantoprazole Sodium 20 MG 10/13/2020 12:00:00 AM EST 1.0 {tablet} suspended Pantoprazole Sodium 20 MG eCW1 ( [facility]) [employer] - [employer] [facility] - 10/13/2020 12:00:00 AM EST active [employer] - eCW1 ([facility]) [employer] [facility] - [employer] [facility] - 10/13/2020 12:00: 00 AM EST active [employer] [facility] - eCW1 ([facility]) [employer] [facility] - [employer] [facility] - 10/13/2020 12:00:00 AM EST active [employer] - eCW1 ([facility]) pantoprazole 20 MG Delayed Release Oral Tablet Pantopr azole Sodium 20 MG Pantoprazole Sodium 20 MG 10/13/2020 12:00:00 AM EST 1.0 {tablet} suspended Pantoprazole Sodium 20 MG eCW1 ( [facility]) [employer] [facility] - [employer] - 10/13/2020 12:00:00 AM EST active [employer] - eCW1 ([facility]) [facility] [employer] [facility] - [employer] [facility] - 10/13/2020 12:00:00 AM EST active [employer] [facility] [employer] [facility] - eCW1 ([facility]) pantoprazole 20 MG Delayed Release Oral Tablet Pantopr azole Sodium 20 MG Pantoprazole Sodium 20 MG 10/13/2020 12:00:00 AM EST 1.0 {tablet} suspended Pantoprazole Sodium 20 MG eCW1 ( [facility]) pantoprazole 20 MG Delayed Release Oral Tablet Pantopr azole Sodium 20 MG Pantoprazole Sodium 20 MG 10/13/2020 12:00:00 AM EST 1.0 {tablet} suspended Pantoprazole Sodium 20 MG eCW1 ( [facility]) [facility] [facility] - [facility] [facility] - 10/13/2020 12:00: 00 AM EST active [facility] [facility] - eCW1 ([facility]) [facility] [facility] - [employer] [facility] - 10/13/2020 12:00: 00 AM EST active [facility] [facility] - eCW1 ([facility]) pantoprazole 20 MG Delayed Release Oral Tablet Pantopr azole Sodium 20 MG Pantoprazole Sodium 20 MG 10/13/2020 12:00:00 AM EST 1.0 {tablet} suspended Pantoprazole Sodium 20 MG eCW1 ( [facility]) [employer] - [employer] [facility] - 10/13/2020 12:00:00 AM EST active [employer] - eCW1 ([facility]) [facility] - [facility] [facility] - 10/13/2020 12:00: 00 AM EST active [facility] - eCW1 ([facility]) pantoprazole 20 MG Delayed Release Oral Tablet Pantopr azole Sodium 20 MG Pantoprazole Sodium 20 MG 10/13/2020 12:00:00 AM EST 1.0 {tablet} suspended Pantoprazole Sodium 20 MG eCW1 ( [facility]) [facility] [facility] - [facility] [facility] - 10/13/2020 12:00: 00 AM EST active [facility] - eCW1 ([facility]) pantoprazole 20 MG Delayed Release Oral Tablet Pantopr azole Sodium 20 MG Pantoprazole Sodium 20 MG 10/13/2020 12:00:00 AM EST 1.0 {tablet} suspended Pantoprazole Sodium 20 MG eCW1 ( [facility]) [facility] - [facility] [facility] - 10/13/2020 12:00: 00 AM EST active [facility] [facility] - eCW1 ([facility]) [facility] [facility] - [facility] [facility] - 10/13/2020 12:00: 00 AM EST active [facility] [facility] - eCW1 ([facility]) [facility] [facility] - [employer] [facility] - 10/13/2020 12:00: 00 AM EST active [facility] [facility] - eCW1 ([facility]) [employer] - [employer] m - 10/13/2020 12:00:00 AM EST active [employer] - eCW1 ([facility]) pantoprazole 20 MG Delayed Release Oral Tablet Pantopr azole Sodium 20 MG Pantoprazole Sodium 20 MG 10/13/2020 12:00:00 AM EST 1.0 {tablet} suspended Pantoprazole Sodium 20 MG eCW1 ( [facility]) [facility] [facility] - [facility] [facility] - 10/13/2020 12:00: 00 AM EST active [facility] [facility] - eCW1 ([facility]) [facility] [facility] - [employer] [facility] - 10/13/2020 12:00: 00 AM EST active [employer] [facility] - eCW1 ([facility]) pantoprazole 20 MG Delayed Release Oral Tablet Pantopr azole Sodium 20 MG Pantoprazole Sodium 20 MG 10/13/2020 12:00:00 AM EST 1.0 {tablet} suspended Pantoprazole Sodium 20 MG eCW1 ( [facility]) pantoprazole 20 MG Delayed Release Oral Tablet Pantopr azole Sodium 20 MG Pantoprazole Sodium 20 MG 10/13/2020 12:00:00 AM EST 1.0 {tablet} suspended Pantoprazole Sodium 20 MG eCW1 ( [facility]) [employer] - [employer] [facility] - 10/13/2020 12:00:00 AM EST active [employer] - eCW1 ([facility]) [employer] - [employer] [facility] - 10/13/2020 12:00:00 AM EST active [employer] - eCW1 ([facility]) pantoprazole 20 MG Delayed Release Oral Tablet Pantopr azole Sodium 20 MG Pantoprazole Sodium 20 MG 10/13/2020 12:00:00 AM EST 1.0 {tablet} suspended Pantoprazole Sodium 20 MG eCW1 ( [facility]) [employer] [facility] - [employer] [facility] - 10/13/2020 12:00: 00 AM EST active [employer] [facility] - eCW1 ([facility]) [employer] - [employer] [facility] - 10/13/2020 12:00:00 AM EST active [employer] e Margie [facility]ensor System - eCW1 ([facility]) [facility]Style Margie [facility]ensor System - FreeStyle Margie Sensor Syste m - 10/13/2020 12:00:00 AM EST active [employer]Sty[employer] e Margie [facility] System - eCW1 ([facility]) pantoprazole 20 MG Delayed Release Oral Tablet Pantopr azole Sodium 20 MG Pantoprazole Sodium 20 MG 10/13/2020 12:00:00 AM EST 1.0 {tablet} suspended Pantoprazole Sodium 20 MG eCW1 ( [facility]) [facility]Style Margie Sensor System - FreeStyle Margie Sensor Syste - 10/13/2020 12:00:00 AM EST active [employer] [facility] [employer] [facility] - eCW1 ([facility]) pantoprazole 20 MG Delayed Release Oral Tablet Pantopr azole Sodium 20 MG Pantoprazole Sodium 20 MG 10/13/2020 12:00:00 AM EST 1.0 {tablet} suspended Pantoprazole Sodium 20 MG eCW1 ( [facility]) [employer] - [employer] Margie [employer]ensor Syste - 10/13/2020 12:00:00 AM EST active [employer] [facility] [employer] [facility] - eCW1 ([facility]) [employer] Margie Morris - Free[employer] Margie Morris - 10/13/2020 12:00: 00 AM EST active [employer] Margie Morris - eCW1 ([facility]) [employer] - [employer]ie [employer] Syste m - 10/13/2020 12:00:00 AM EST active [employer] - eCW1 ([facility]) [employer] - [employer] Margie Sensor Syste m - 10/13/2020 12:00:00 AM EST active [employer] - eCW1 ([facility]) [employer] Margie Morris - [employer] Margie Morris - 10/13/2020 12:00: 00 AM EST active [employer] [facility]ie Morris - eCW1 ([facility]) pantoprazole 20 MG Delayed Release Oral Tablet Pantopr azole Sodium 20 MG Pantoprazole Sodium 20 MG 10/13/2020 12:00:00 AM EST 1.0 {tablet} suspended Pantoprazole Sodium 20 MG eCW1 ( [facility]) [employer] Margie Morris - [employer] Margie Morris - 10/13/2020 12:00: 00 AM EST active [employer] [facility]ie Morris - eCW1 ([facility]) [employer] Margie Morris - [employer] Margie Morris - 10/13/2020 12:00: 00 AM EST active [employer] Morris - eCW1 ([facility]) [employer] Margie Morris - [employer] Margie Morris - 10/13/2020 12:00: 00 AM EST active [employer] [facility]ie Morris - eCW1 ([facility]) [employer] - [employer] Margie Sensor Syste m - 10/13/2020 12:00:00 AM EST active [employer] - eCW1 ([facility]) [employer] Margie Morris - [employer] Margie Morris - 10/13/2020 12:00: 00 AM EST active [employer]ie Morris - eCW1 ([facility]) [employer] Margie Morris - [employer] Margie Morris - 10/13/2020 12:00: 00 AM EST active [employer] Margie Morris - eCW1 ([facility]) [employer] - [employer] Margie Sensor Syste m - 10/13/2020 12:00:00 AM EST active [employer] [facility] - eCW1 ([facility]) pantoprazole 20 MG Delayed Release Oral Tablet Pantopr azole Sodium 20 MG Pantoprazole Sodium 20 MG 10/13/2020 12:00:00 AM EST 1.0 {tablet} suspended Pantoprazole Sodium 20 MG eCW1 ( [facility]) pantoprazole 20 MG Delayed Release Oral Tablet Pantopr azole Sodium 20 MG Pantoprazole Sodium 20 MG 10/13/2020 12:00:00 AM EST 1.0 {tablet} suspended Pantoprazole Sodium 20 MG eCW1 ( [facility]) [employer] Margie Morris - [employer] Margie Morris - 10/13/2020 12:00: 00 AM EST active [employer] [facility]ie Morris - eCW1 ([facility]) [employer] - [employer] Margie Sensor Syste m - 10/13/2020 12:00:00 AM EST active [employer] [facility] - eCW1 ([facility]) pantoprazole 20 MG Delayed Release Oral Tablet Pantopr azole Sodium 20 MG Pantoprazole Sodium 20 MG 10/13/2020 12:00:00 AM EST 1.0 {tablet} suspended Pantoprazole Sodium 20 MG eCW1 ( [facility]) [employer] - [employer] Margie Sensor Syste m - 10/13/2020 12:00:00 AM EST active [employer] - eCW1 ([facility]) [employer] - [employer] Margie Sensor Syste m - 10/13/2020 12:00:00 AM EST active [employer] [employer] [facility] - eCW1 ([facility]) pantoprazole 20 MG Delayed Release Oral Tablet Pantopr azole Sodium 20 MG Pantoprazole Sodium 20 MG 10/13/2020 12:00:00 AM EST 1.0 {tablet} suspended Pantoprazole Sodium 20 MG eCW1 ( [facility]) [employer] - [employer] Margie Sensor Syste m - 10/13/2020 12:00:00 AM EST active [employer] - eCW1 ([facility]) [employer] Margie Morris - [employer] Margie Morris - 10/13/2020 12:00: 00 AM EST active [employer] [facility]ie Morris - eCW1 ([facility]) pantoprazole 20 MG Delayed Release Oral Tablet Pantopr azole Sodium 20 MG Pantoprazole Sodium 20 MG 10/13/2020 12:00:00 AM EST 1.0 {tablet} suspended Pantoprazole Sodium 20 MG eCW1 ( [facility]) pantoprazole 20 MG Delayed Release Oral Tablet Pantopr azole Sodium 20 MG Pantoprazole Sodium 20 MG 10/13/2020 12:00:00 AM EST 1.0 {tablet} suspended Pantoprazole Sodium 20 MG eCW1 ( [facility]) pantoprazole 20 MG Delayed Release Oral Tablet Pantopr azole Sodium 20 MG Pantoprazole Sodium 20 MG 10/13/2020 12:00:00 AM EST 1.0 {tablet} suspended Pantoprazole Sodium 20 MG eCW1 ( [facility]) [employer] - [employer] Margie Sensor Syste m - 10/13/2020 12:00:00 AM EST active [employer] - eCW1 ([facility]) [employer] Margie Morris - [employer] Margie Morris - 10/13/2020 12:00: 00 AM EST active [employer]ie Morris - eCW1 ([facility]) [employer] Margie Morris - [employer] Margie Morris - 10/13/2020 12:00: 00 AM EST active [employer]ie Morris - eCW1 ([facility]) pantoprazole 20 MG Delayed Release Oral Tablet Pantopr azole Sodium 20 MG Pantoprazole Sodium 20 MG 10/13/2020 12:00:00 AM EST 1.0 {tablet} suspended Pantoprazole Sodium 20 MG eCW1 ( [facility]) pantoprazole 20 MG Delayed Release Oral Tablet Pantopr azole Sodium 20 MG Pantoprazole Sodium 20 MG 10/13/2020 12:00:00 AM EST 1.0 {tablet} active Pantoprazole Sodium 20 MG eCW1 ( [facility]) [employer] Margie Morris - [employer] Margie Morris - 10/13/2020 12:00: 00 AM EST active [employer] Margie Morris - eCW1 ([facility]) [employer] - [employer] Margie Sensor Syste m - 10/13/2020 12:00:00 AM EST active [employer] - eCW1 ([facility]) [employer] - [employer] Margie Sensor Syste m - 10/13/2020 12:00:00 AM EST active [employer] - eCW1 ([facility]) [employer] Margie Morris - [employer] Margie Morris - 10/13/2020 12:00: 00 AM EST active [employer] Margie Morris - eCW1 ([facility]) pantoprazole 20 MG Delayed Release Oral Tablet Pantopr azole Sodium 20 MG Pantoprazole Sodium 20 MG 10/13/2020 12:00:00 AM EST 1.0 {tablet} suspended Pantoprazole Sodium 20 MG eCW1 ( [facility]) [employer]ie Morris - [employer] Margie Morris - 10/13/2020 12:00: 00 AM EST active [employer]ie Morris - eCW1 ([facility]) [employer] Margie Morris - [employer] Margie Morris - 10/13/2020 12:00: 00 AM EST active [employer] Margie Morris - eCW1 ([facility]) [employer] - [employer] Margie Sensor Syste m - 10/13/2020 12:00:00 AM EST active [employer] - eCW1 ([facility]) [employer] Margie Morris - [employer] Margie Morris - 10/13/2020 12:00: 00 AM EST active [employer]ie Morris - eCW1 ([facility]) [employer] Margie Morris - [employer] Margie Morris - 10/13/2020 12:00: 00 AM EST active [employer] Morris - eCW1 ([facility]) [employer] Margie Morris - [employer] Margie Morris - 10/13/2020 12:00: 00 AM EST active [employer]ie Morris - eCW1 ([facility]) [employer] Margie Morris - [employer] Margie Morris - 10/13/2020 12:00: 00 AM EST active [employer] Margie Morris - eCW1 ([facility]) pantoprazole 20 MG Delayed Release Oral Tablet Pantopr azole Sodium 20 MG Pantoprazole Sodium 20 MG 10/13/2020 12:00:00 AM EST 1.0 {tablet} suspended Pantoprazole Sodium 20 MG eCW1 ( [facility]) pantoprazole 20 MG Delayed Release Oral Tablet Pantopr azole Sodium 20 MG Pantoprazole Sodium 20 MG 10/13/2020 12:00:00 AM EST 1.0 {tablet} suspended Pantoprazole Sodium 20 MG eCW1 ( [facility]) [employer] Margie Morris - [employer] Margie Morris - 10/13/2020 12:00: 00 AM EST active [employer] Margie Morris - eCW1 ([facility]) pantoprazole 20 MG Delayed Release Oral Tablet Pantopr azole Sodium 20 MG Pantoprazole Sodium 20 MG 10/13/2020 12:00:00 AM EST 1.0 {tablet} suspended Pantoprazole Sodium 20 MG eCW1 ( [facility]) [employer] Margie Morris - [employer] Margie Morris - 10/13/2020 12:00: 00 AM EST active [employer]ie Morris - eCW1 ([facility]) [employer] Margie Morris - [employer] Margie Morris - 10/13/2020 12:00: 00 AM EST active [employer] Margie Morris - eCW1 ([facility]) pantoprazole 20 MG Delayed Release Oral Tablet Pantopr azole Sodium 20 MG Pantoprazole Sodium 20 MG 10/13/2020 12:00:00 AM EST 1.0 {tablet} active Pantoprazole Sodium 20 MG eCW1 ( [facility]) [employer] Margie Morris - [employer] Margie Morris - 10/13/2020 12:00: 00 AM EST active [employer] Margie Morris - eCW1 ([facility]) [employer] - [employer] Margie Sensor Syste m - 10/13/2020 12:00:00 AM EST active [employer] - eCW1 ([facility]) [employer] Margie Morris - [employer] Margie Morris - 10/13/2020 12:00: 00 AM EST active [employer] Margie Morris - eCW1 ([facility]) [employer] - [employer] Margie Sensor Syste m - 10/13/2020 12:00:00 AM EST active [employer] - eCW1 ([facility]) [employer] - [employer] Margie Sensor Syste m - 10/13/2020 12:00:00 AM EST active [employer] - eCW1 ([facility]) [employer] - [employer] Margie Sensor Syste - 10/13/2020 12:00:00 AM EST active [employer] - eCW1 ([facility]) pantoprazole 20 MG Delayed Release Oral Tablet Pantopr azole Sodium 20 MG Pantoprazole Sodium 20 MG 10/13/2020 12:00:00 AM EST 1.0 {tablet} suspended Pantoprazole Sodium 20 MG eCW1 ( [facility]) [employer] Margie Morris - [employer] Margie Morris - 10/13/2020 12:00: 00 AM EST active [employer] Margie Morris - eCW1 ([facility]) [employer] Margie Morris - [employer] Margie Morris - 10/13/2020 12:00: 00 AM EST active [employer] Margie Morris - eCW1 ([facility]) [employer] - [employer] Margie Sensor Syste - 10/13/2020 12:00:00 AM EST active [employer] - eCW1 ([facility]) pantoprazole 20 MG Delayed Release Oral Tablet Pantopr azole Sodium 20 MG Pantoprazole Sodium 20 MG 10/13/2020 12:00:00 AM EST 1.0 {tablet} suspended Pantoprazole Sodium 20 MG eCW1 ( [facility]) [employer] - [employer] Margie Sensor Syste - 10/13/2020 12:00:00 AM EST active [employer] - eCW1 ([facility]) [employer] - [employer] Margie Sensor Syste - 10/13/2020 12:00:00 AM EST active [employer] - eCW1 ([facility]) [employer] - [employer]Style Margie Sensor Syste m - 10/13/2020 12:00:00 AM EST active [employer] - eCW1 ([facility]) pantoprazole 20 MG Delayed Release Oral Tablet Pantopr azole Sodium 20 MG Pantoprazole Sodium 20 MG 10/13/2020 12:00:00 AM EST 1.0 {tablet} suspended Pantoprazole Sodium 20 MG eCW1 ( [facility]) [employer] Margie Morris - [employer] Margie Morris - 10/13/2020 12:00: 00 AM EST active [employer] Margie Morris - eCW1 ([facility]) [employer] - [employer]Style Margie Sensor Syste m - 10/13/2020 12:00:00 AM EST active [employer] - eCW1 ([facility]) pantoprazole 20 MG Delayed Release Oral Tablet Pantopr azole Sodium 20 MG Pantoprazole Sodium 20 MG 10/13/2020 12:00:00 AM EST 1.0 {tablet} suspended Pantoprazole Sodium 20 MG eCW1 ( [facility]) pantoprazole 20 MG Delayed Release Oral Tablet Pantopr azole Sodium 20 MG Pantoprazole Sodium 20 MG 10/13/2020 12:00:00 AM EST 1.0 {tablet} suspended Pantoprazole Sodium 20 MG eCW1 ( [facility]) [employer] - [employer]Style Margie Sensor Syste m - 10/13/2020 12:00:00 AM EST active [employer] - eCW1 ([facility]) [employer] Margie Morris - FreeStyle Margie Morris - 10/13/2020 12:00: 00 AM EST active [employer] Margie Morris - eCW1 ([facility]) [employer] - [employer]Style Margie Sensor Syste m - 10/13/2020 12:00:00 AM EST active [employer] [facility] - eCW1 ([facility]) 31 gauge x 1/4" 10/05/2020 12:00:00 AM EST needle 30 INJECT ONCE DAILY DIRECTED INJECT ONCE DAILY DIRECTED SOLD: 10/07/2020 [facility] 31 gauge x 1/4" 10/05/2020 12:00:00 AM EST needle 30 INJECT ONCE DAILY DIRECTED INJECT ONCE DAILY DIRECTED SOLD: 11/07/2020 [facility] 31 gauge x 1/4" 10/05/2020 12:00:00 AM EST needle 30 INJECT ONCE DAILY DIRECTED INJECT ONCE DAILY DIRECTED SOLD: 12/08/2020 [facility] 31 gauge x 1/4" 10/05/2020 12:00:00 AM EST needle 30 INJECT ONCE DAILY DIRECTED INJECT ONCE DAILY DIRECTED SOLD: 01/06/2021 [facility] 31 gauge x 1/4" 10/05/2020 12:00:00 AM EST needle 30 INJECT ONCE DAILY DIRECTED INJECT ONCE DAILY DIRECTED SOLD: 02/14/2021 [facility] 25 mg 09/28/2020 12:00:00 AM [...] ONE TABLET BY MOUTH EVERY DAY SOLD: 12/08/2020 [facility] 10 mg 09/06/2020 12:00:00 AM EST tablet 30 TAKE ONE TABLET BY MOUTH EVERY DAY TAKE ONE TABLET BY MOUTH EVERY DAY SOLD: 11/07/2020 [facility] 10 mg 09/06/2020 12:00:00 AM EST tablet 30 TAKE ONE TABLET BY MOUTH EVERY DAY TAKE ONE TABLET BY MOUTH EVERY DAY SOLD: 09/08/2020 [facility] 10 mg 09/06/2020 12:00:00 AM EST tablet 30 TAKE ONE TABLET BY MOUTH EVERY DAY TAKE ONE TABLET BY MOUTH EVERY DAY SOLD: 10/07/2020 [facility] atorvastatin 80 MG Oral Tablet ATORVASTATIN CALCIUM 08/09/2020 1 2:00:00 AM EST tablet 30 TAKE ONE TABLET BY MOUTH EVERY D AY TAKE ONE TABLET BY MOUTH EVERY DAY SOLD: 08/10/2020 [facility] 62.5 mcg/actuation 07/31/2020 12:00:00 AM EDT blister with d evice 90 INHALE ONE PUFF BY MOUTH EVERY DAY INHALE ONE PUFF BY MOUTH EVERY DAY SOLD: 10/31/2020 [facility] Calcitriol 0.01603 MG Oral Capsule 0.25 mcg CALCITRIOL 07/31/2020 12:00:00 AM EDT capsule 36 ONE CAPSULE BY MOUTH ON , SUNDAY AND SUNDAY ONE CAPSULE BY MOUTH ON SUNDAY, SUNDAY AND SUNDAY SOLD: 10/26/2020 [facility] 0.25 mcg 07/31/2020 12:00:00 AM EDT capsule 36 ONE CAPSULE BY MOUTH ON SUNDAY, SUNDAY AND SUNDAY ONE CAPSULE BY MOUTH ON SUNDAY, AND SUNDAY SOLD: 08/03/2020 [facility] 62.5 mcg/actuation 07/31/2020 12:00:00 AM EDT blister with d evice 90 INHALE ONE PUFF BY MOUTH EVERY DAY INHALE ONE PUFF BY MOUTH EVERY DAY SOLD: 02/02/2021 [facility] 62.5 mcg/actuation 07/31/2020 12:00:00 AM EDT blister with d evice 90 INHALE ONE PUFF BY MOUTH EVERY DAY INHALE ONE PUFF BY MOUTH EVERY DAY SOLD: 08/03/2020 [facility] 62.5 mcg/actuation 07/31/2020 12:00:00 AM EDT blister with d evice 90 INHALE ONE PUFF BY MOUTH EVERY DAY INHALE ONE PUFF BY MOUTH EVERY DAY SOLD: 05/05/2021 [facility] 10 mg 07/28/2020 12:00:00 AM EDT tablet 60 TAKE ONE TABLET BY MOUTH TWICE A DAY TAKE ONE TABLET BY MOUTH TWICE A DAY SOLD: 02/02/2021 [facility] 10 mg 07/28/2020 12:00:00 AM EDT tablet 60 TAKE ONE TABLET BY MOUTH TWICE A DAY TAKE ONE TABLET BY MOUTH TWICE A DAY SOLD: 12/24/2020 [facility] 10 mg 07/28/2020 12:00:00 AM EDT tablet 60 TAKE ONE TABLET BY MOUTH TWICE A DAY TAKE ONE TABLET BY MOUTH TWICE A DAY SOLD: 11/22/2020 [facility] 10 mg 07/28/2020 12:00:00 AM EDT tablet 60 TAKE ONE TABLET BY MOUTH TWICE A DAY TAKE ONE TABLET BY MOUTH TWICE A DAY SOLD: 08/31/2020 [facility] 10 mg 07/28/2020 12:00:00 AM EDT tablet 60 TAKE ONE TABLET BY MOUTH TWICE A DAY TAKE ONE TABLET BY MOUTH TWICE A DAY SOLD: 09/30/2020 [facility] Hydralazine Hydrochloride 10 MG Oral [...] TIMES A DAY NEEDED SOLD: 09/16/2020 [facility] 90 mcg/actuation 07/23/2020 12:00:00 [...] DAY NEEDED SOLD: 07/26/2020 [facility] Sertraline 25 MG Oral Tablet Sertraline HCl 25 MG Sertraline HCl 25 MG 07/22/2020 12:00:00 AM EDT 1.0 {tablet} active Sertraline HCl 25 MG eCW1 ([facility]) Cyclobenzaprine hydrochloride 5 MG Oral Tablet Cyclobe nzaprine HCl 5 MG Cyclobenzaprine HCl 5 MG 07/22/2020 12:00:00 AM EDT active Cyclobenzaprine HCl 5 MG eCW1 ([facility]) Cyclobenzaprine hydrochloride 5 MG Oral Tablet Cyclobe nzaprine HCl 5 MG Cyclobenzaprine HCl 5 MG 07/22/2020 12:00:00 AM EDT suspended Cyclobenzaprine HCl 5 MG eCW1 ([facility]) Cyclobenzaprine hydrochloride 5 MG Oral Tablet Cyclobe nzaprine HCl 5 MG Cyclobenzaprine HCl 5 MG 07/22/2020 12:00:00 AM EDT active Cyclobenzaprine HCl 5 MG eCW1 ([facility]) Cyclobenzaprine hydrochloride 5 MG Oral Tablet Cyclobe nzaprine HCl 5 MG Cyclobenzaprine HCl 5 MG 07/22/2020 12:00:00 AM EDT suspended Cyclobenzaprine HCl 5 MG eCW1 ([facility]) Cyclobenzaprine hydrochloride 5 MG Oral Tablet Cyclobe nzaprine HCl 5 MG Cyclobenzaprine HCl 5 MG 07/22/2020 12:00:00 AM EDT suspended Cyclobenzaprine HCl 5 MG eCW1 ([facility]) Cyclobenzaprine hydrochloride 5 MG Oral Tablet Cyclobe nzaprine HCl 5 MG Cyclobenzaprine HCl 5 MG 07/22/2020 12:00:00 AM EDT suspended Cyclobenzaprine HCl 5 MG eCW1 ([facility]) Cyclobenzaprine hydrochloride 5 MG Oral Tablet Cyclobe nzaprine HCl 5 MG Cyclobenzaprine HCl 5 MG 07/22/2020 12:00:00 AM EDT suspended Cyclobenzaprine HCl 5 MG eCW1 ([facility]) Cyclobenzaprine hydrochloride 5 MG Oral Tablet Cyclobe nzaprine HCl 5 MG Cyclobenzaprine HCl 5 MG 07/22/2020 12:00:00 AM EDT suspended Cyclobenzaprine HCl 5 MG eCW1 ([facility]) Sertraline 25 MG Oral Tablet Sertraline HCl 25 MG Sertraline HCl 25 MG 07/22/2020 12:00:00 AM EDT 1.0 {tablet} active Sertraline HCl 25 MG eCW1 ([facility]) Sertraline 25 MG Oral Tablet Sertraline HCl 25 MG Sertraline HCl 25 MG 07/22/2020 12:00:00 AM EDT 1.0 {tablet} active Sertraline HCl 25 MG eCW1 ([facility]) Cyclobenzaprine hydrochloride 5 MG Oral Tablet Cyclobe nzaprine HCl 5 MG Cyclobenzaprine HCl 5 MG 07/22/2020 12:00:00 AM EDT suspended Cyclobenzaprine HCl 5 MG eCW1 ([facility]) 25 mg 07/22/2020 12:00:00 AM EDT tablet 30 TAKE ONE TABLET BY MOUTH EVERY DAY TAKE ONE TABLET BY MOUTH EVERY DAY SOLD: 07/26/2020 [facility] Cyclobenzaprine hydrochloride 5 MG Oral Tablet Cyclobe nzaprine HCl 5 MG Cyclobenzaprine HCl 5 MG 07/22/2020 12:00:00 AM EDT suspended Cyclobenzaprine HCl 5 MG eCW1 ([facility]) Cyclobenzaprine hydrochloride 5 MG Oral Tablet Cyclobe nzaprine HCl 5 MG Cyclobenzaprine HCl 5 MG 07/22/2020 12:00:00 AM EDT suspended Cyclobenzaprine HCl 5 MG eCW1 ([facility]) Cyclobenzaprine hydrochloride 5 MG Oral Tablet Cyclobe nzaprine HCl 5 MG Cyclobenzaprine HCl 5 MG 07/22/2020 12:00:00 AM EDT active Cyclobenzaprine HCl 5 MG eCW1 ([facility]) Cyclobenzaprine hydrochloride 5 MG Oral Tablet Cyclobe nzaprine HCl 5 MG Cyclobenzaprine HCl 5 MG 07/22/2020 12:00:00 AM EDT suspended Cyclobenzaprine HCl 5 MG eCW1 ([facility]) Cyclobenzaprine hydrochloride 5 MG Oral Tablet Cyclobe nzaprine HCl 5 MG Cyclobenzaprine HCl 5 MG 07/22/2020 12:00:00 AM EDT suspended Cyclobenzaprine HCl 5 MG eCW1 ([facility]) Cyclobenzaprine hydrochloride 5 MG Oral Tablet Cyclobe nzaprine HCl 5 MG Cyclobenzaprine HCl 5 MG 07/22/2020 12:00:00 AM EDT suspended Cyclobenzaprine HCl 5 MG eCW1 ([facility]) Cyclobenzaprine hydrochloride 5 MG Oral Tablet Cyclobe nzaprine HCl 5 MG Cyclobenzaprine HCl 5 MG 07/22/2020 12:00:00 AM EDT suspended Cyclobenzaprine HCl 5 MG eCW1 ([facility]) Cyclobenzaprine hydrochloride 5 MG Oral Tablet Cyclobe nzaprine HCl 5 MG Cyclobenzaprine HCl 5 MG 07/22/2020 12:00:00 AM EDT suspended Cyclobenzaprine HCl 5 MG eCW1 ([facility]) Cyclobenzaprine hydrochloride 5 MG Oral Tablet Cyclobe nzaprine HCl 5 MG Cyclobenzaprine HCl 5 MG 07/22/2020 12:00:00 AM EDT suspended Cyclobenzaprine HCl 5 MG eCW1 ([facility]) Cyclobenzaprine hydrochloride 5 MG Oral Tablet Cyclobe nzaprine HCl 5 MG Cyclobenzaprine HCl 5 MG 07/22/2020 12:00:00 AM EDT suspended Cyclobenzaprine HCl 5 MG eCW1 ([facility]) Cyclobenzaprine hydrochloride 5 MG Oral Tablet Cyclobe nzaprine HCl 5 MG Cyclobenzaprine HCl 5 MG 07/22/2020 12:00:00 AM EDT active Cyclobenzaprine HCl 5 MG eCW1 ([facility]) Cyclobenzaprine hydrochloride 5 MG Oral Tablet Cyclobe nzaprine HCl 5 MG Cyclobenzaprine HCl 5 MG 07/22/2020 12:00:00 AM EDT active Cyclobenzaprine HCl 5 MG eCW1 ([facility]) Cyclobenzaprine hydrochloride 5 MG Oral Tablet Cyclobe nzaprine HCl 5 MG Cyclobenzaprine HCl 5 MG 07/22/2020 12:00:00 AM EDT suspended Cyclobenzaprine HCl 5 MG eCW1 ([facility]) Sertraline 25 MG Oral Tablet Sertraline HCl 25 MG Sertraline HCl 25 MG 07/22/2020 12:00:00 AM EDT 1.0 {tablet} active Sertraline HCl 25 MG eCW1 ([facility]) Cyclobenzaprine hydrochloride 5 MG Oral Tablet Cyclobe nzaprine HCl 5 MG Cyclobenzaprine HCl 5 MG 07/22/2020 12:00:00 AM EDT active Cyclobenzaprine HCl 5 MG eCW1 ([facility]) Cyclobenzaprine hydrochloride 5 MG Oral Tablet Cyclobe nzaprine HCl 5 MG Cyclobenzaprine HCl 5 MG 07/22/2020 12:00:00 AM EDT suspended Cyclobenzaprine HCl 5 MG eCW1 ([facility]) Sertraline 25 MG Oral Tablet Sertraline HCl 25 MG Sertraline HCl 25 MG 07/22/2020 12:00:00 AM EDT 1.0 {tablet} active Sertraline HCl 25 MG eCW1 ([facility]) Cyclobenzaprine hydrochloride 5 MG Oral Tablet Cyclobe nzaprine HCl 5 MG Cyclobenzaprine HCl 5 MG 07/22/2020 12:00:00 AM EDT suspended Cyclobenzaprine HCl 5 MG eCW1 ([facility]) Cyclobenzaprine hydrochloride 5 MG Oral Tablet Cyclobe nzaprine HCl 5 MG Cyclobenzaprine HCl 5 MG 07/22/2020 12:00:00 AM EDT suspended Cyclobenzaprine HCl 5 MG eCW1 ([facility]) Cyclobenzaprine hydrochloride 5 MG Oral Tablet Cyclobe nzaprine HCl 5 MG Cyclobenzaprine HCl 5 MG 07/22/2020 12:00:00 AM EDT suspended Cyclobenzaprine HCl 5 MG eCW1 ([facility]) Cyclobenzaprine hydrochloride 5 MG Oral Tablet Cyclobe nzaprine HCl 5 MG Cyclobenzaprine HCl 5 MG 07/22/2020 12:00:00 AM EDT suspended Cyclobenzaprine HCl 5 MG eCW1 ([facility]) Cyclobenzaprine hydrochloride 5 MG Oral Tablet Cyclobe nzaprine HCl 5 MG Cyclobenzaprine HCl 5 MG 07/22/2020 12:00:00 AM EDT active Cyclobenzaprine HCl 5 MG eCW1 ([facility]) Cyclobenzaprine hydrochloride 5 MG Oral Tablet Cyclobe nzaprine HCl 5 MG Cyclobenzaprine HCl 5 MG 07/22/2020 12:00:00 AM EDT suspended Cyclobenzaprine HCl 5 MG eCW1 ([facility]) Cyclobenzaprine hydrochloride 5 MG Oral Tablet Cyclobe nzaprine HCl 5 MG Cyclobenzaprine HCl 5 MG 07/22/2020 12:00:00 AM EDT suspended Cyclobenzaprine HCl 5 MG eCW1 ([facility]) Cyclobenzaprine hydrochloride 5 MG Oral Tablet Cyclobe nzaprine HCl 5 MG Cyclobenzaprine HCl 5 MG 07/22/2020 12:00:00 AM EDT active Cyclobenzaprine HCl 5 MG eCW1 ([facility]) Sertraline 25 MG Oral Tablet Sertraline HCl 25 MG Sertraline HCl 25 MG 07/22/2020 12:00:00 AM EDT 1.0 {tablet} active Sertraline HCl 25 MG eCW1 ([facility]) Cyclobenzaprine hydrochloride 5 MG Oral Tablet Cyclobe nzaprine HCl 5 MG Cyclobenzaprine HCl 5 MG 07/22/2020 12:00:00 AM EDT suspended Cyclobenzaprine HCl 5 MG eCW1 ([facility]) Cyclobenzaprine hydrochloride 5 MG Oral Tablet Cyclobe nzaprine HCl 5 MG Cyclobenzaprine HCl 5 MG 07/22/2020 12:00:00 AM EDT suspended Cyclobenzaprine HCl 5 MG eCW1 ([facility]) Cyclobenzaprine hydrochloride 5 MG Oral Tablet Cyclobe nzaprine HCl 5 MG Cyclobenzaprine HCl 5 MG 07/22/2020 12:00:00 AM EDT suspended Cyclobenzaprine HCl 5 MG eCW1 ([facility]) Cyclobenzaprine hydrochloride 5 MG Oral Tablet Cyclobe nzaprine HCl 5 MG Cyclobenzaprine HCl 5 MG 07/22/2020 12:00:00 AM EDT active Cyclobenzaprine HCl 5 MG eCW1 ([facility]) Cyclobenzaprine hydrochloride 5 MG Oral Tablet Cyclobe nzaprine HCl 5 MG Cyclobenzaprine HCl 5 MG 07/22/2020 12:00:00 AM EDT suspended Cyclobenzaprine HCl 5 MG eCW1 ([facility]) Cyclobenzaprine hydrochloride 5 MG Oral Tablet Cyclobe nzaprine HCl 5 MG Cyclobenzaprine HCl 5 MG 07/22/2020 12:00:00 AM EDT active Cyclobenzaprine HCl 5 MG eCW1 ([facility]) Cyclobenzaprine hydrochloride 5 MG Oral Tablet Cyclobe nzaprine HCl 5 MG Cyclobenzaprine HCl 5 MG 07/22/2020 12:00:00 AM EDT suspended Cyclobenzaprine HCl 5 MG eCW1 ([facility]) 25 mg 07/22/2020 12:00:00 AM EDT tablet 30 TAKE ONE TABLET BY MOUTH EVERY DAY TAKE ONE TABLET BY MOUTH EVERY DAY SOLD: 08/31/2020 [facility] Sertraline 25 MG Oral Tablet Sertraline HCl 25 MG Sertraline HCl 25 MG 07/22/2020 12:00:00 AM EDT 1.0 {tablet} active Sertraline HCl 25 MG eCW1 ([facility]) Cyclobenzaprine hydrochloride 5 MG Oral Tablet Cyclobe nzaprine HCl 5 MG Cyclobenzaprine HCl 5 MG 07/22/2020 12:00:00 AM EDT suspended Cyclobenzaprine HCl 5 MG [facility] ([facility]) Sertraline 25 MG Oral Tablet Sertraline HCl 25 MG Sertraline HCl 25 MG 07/22/2020 12:00:00 AM EDT 1.0 {tablet} active Sertraline HCl 25 MG eCW1 ([facility]) Cyclobenzaprine hydrochloride 5 MG Oral Tablet Cyclobe nzaprine HCl 5 MG Cyclobenzaprine HCl 5 MG 07/22/2020 12:00:00 AM EDT active Cyclobenzaprine HCl 5 MG eCW1 ([facility]) Cyclobenzaprine hydrochloride 5 MG Oral Tablet Cyclobe nzaprine HCl 5 MG Cyclobenzaprine HCl 5 MG 07/22/2020 12:00:00 AM EDT suspended Cyclobenzaprine HCl 5 MG eCW1 ([facility]) Cyclobenzaprine hydrochloride 5 MG Oral Tablet Cyclobe nzaprine HCl 5 MG Cyclobenzaprine HCl 5 MG 07/22/2020 12:00:00 AM EDT suspended Cyclobenzaprine HCl 5 MG eCW1 ([facility]) Cyclobenzaprine hydrochloride 5 MG Oral Tablet Cyclobe nzaprine HCl 5 MG Cyclobenzaprine HCl 5 MG 07/22/2020 12:00:00 AM EDT suspended Cyclobenzaprine HCl 5 MG eCW1 ([facility]) 1,250 mcg (50,000 unit) 07/20/2020 12:00:00 AM [...] ONE PUFF BY MOUTH EVERY DAY SOLD: 12/14/2020 [facility] 200 mcg/actuation 05/31/2020 12:00:00 AM EDT blister with de vice 90 INHALE ONE PUFF BY MOUTH EVERY DAY INHALE ONE PUFF BY MOUTH EVERY DAY SOLD: 03/18/2021 [facility] 200 mcg/actuation 05/31/2020 12:00:00 AM [...] MOUTH EVERY DAY SOLD: 08/10/2020 [facility] 31 gauge x [...] DIRECTED ONCE DAILY SOLD: 07/13/2020 [facility] 25 mg 02/15/2020 12:00:00 AM EDT tablet 90 TAKE ONE TABLET BY MOUTH EVERY DAY TAKE ONE TABLET BY MOUTH EVERY DAY SOLD: 05/19/2020 [facility] 25 mg 02/15/2020 12:00:00 AM EDT tablet 90 TAKE ONE TABLET BY MOUTH EVERY DAY TAKE ONE TABLET BY MOUTH EVERY DAY SOLD: 08/21/2020 [facility] Bumetanide 1 MG Oral Tablet BUMETANIDE 02/12/2020 12:00:00 AM EDT tabl et 60 TAKE TWO TABLETS BY MOUTH EVERY DAY TAKE TWO TABLETS BY MOUTH EVERY DAY SOLD: 05/19/2020 [facility] 50 mcg/dose 01/12/2020 12:00:00 AM [...] TWICE A DAY SOLD: 2020 [facility] 1.5 mg/0.5 mL 09/09/2019 12:00:00 AM EST pen injector 4 INJECT 0.5 ML WEEKLY INJECT 0.5 ML WEEKLY SOLD: 09/08/2020 [facility] 1.5 mg/0.5 mL 09/09/2019 12:00:00 AM EST pen injector 4 INJECT 0.5 ML WEEKLY INJECT 0.5 ML WEEKLY SOLD: 07/13/2020 [facility] Insurance Providers Payer name Policy type / Coverage type Policy ID Covered republican ID Covered republican's relationship to patel Policy Patel Plan Information AETNA MEDICARE COMPLETE G [id number] Self [id number] Medicare C [id number] SELF [id number] A [facility] Medicare Solutions F [id number] SELF [id number] [facility] Medicare Solutions F [id number] SELF [id number] [facility] Medicare F [id number] SELF [id number] [facility] Medicare F [id number] SELF [id number] [facility] MEDICARE COMPLETE G [id number] Self [id number] MEDICARE COMPLETE [id number] SP [id number] [facility] HEA [id number] S [id number] MEDICARE COMPLETE [id number] SP [id number] [facility] [id number] 18 [id number] [facility] [id number] 18 [id number] [facility] Medicare Solutions F [id number] SELF [id number] MEDICARE COMPLETE [id number] SP [id number] MEDICARE COMPLETE [id number] SP [id number] Wellcare MCAR Health Plans F [id number] SELF [id number] Wellcare Health Plans F [id number] SELF [id number] Wellcare Health Plans F [id number] SELF [id number] Aetna Medicare F [id number] SELF MEBTW 60M AETNA [id number] Britta [id number] MEDICARE [id number] A [facility]SI-Health Maintenance Organization (HM O) [id number] ANSI-Medicare Part B [id number] ANSI-Medicare Part B [id number] ANSI-Health Maintenance Organization (HM O) [id number] ANSI-Health Maintenance Organization (HM O) [id number] ANSI-Medicare Part B [id number] ANSI-Medicare Part B [id number] ANSI-Health Maintenance Organization ( O) [id number] ANSI-Health Maintenance Organization ( O) [id number]-[id number] ANSI-Medicare Part B [id number] ANSI-Medicare Part B [id number] ANSI-Health Maintenance Organization ( O) [id number]-[id number] ANSI-Medicare Part B [id number] ANSI-Health Maintenance Organization ( O) [id number] ANSI-Medicare Part B [id number]-8655-m9d6-[id number] ANSI-Health Maintenance Organization ( O) [id number]-[id number] ANS-Health Maintenance Organization ( O) [id number] ANSI-Medicare Part B [id number] [facility] [id number] S [id number] ANSI-Medicare Part B [id number]-[id number]-cf3v-[id number] [facility]-Health Maintenance Organization ( O) [id number] [facility]-Health Maintenance Organization ( O) [id number]-x4gv-2l7n-j7v7-[id number] ANSI-Medicare Part B [id number] [facility] [id number] [place] [id number] [facility]-Health Maintenance Organization ( O) [id number]-[id number] ANSI-Medicare Part B [id number]-[id number]-[id number] [facility]-Health Maintenance Organization ( O) [id number]-hm5k-0803-[id number] ANSI-Medicare Part B [id number] rgf5qe17-3tr0-48k4-4x3v-[id number] [employer] MCR - To Ppo Commercial [id number] 2.16.840.1 .047607.3.227.99.572.81402.0 Self [id number] [facility] [id number] 2.16.840.1.313391.3.227.99.572.02819.0 Self 9 [id number] [facility] - To Ppo Commercial [id number] 2.16.840.1 .943446.3.227.99.572.54920.0 Self [id number] [facility] Commercial [id number] 2.16.0.1.450626.3.227.99.572.26628.0 Self 9 [id number] ANSI-Medicare Part B [id number]-[id number] ANSI-Health Maintenance Organization (HM O) [id number] [facility] ([facility] Part B [id number] Self [id number] [employer] Commercial [id number] Self [id number] ANSI-Medicare Part B [id number] [id number]-188l-mn3y-34ru7ece8e9u ANSI-Health Maintenance Organization (HM O) [id number]-z57i-d3xq24evr69w ANSI-Medicare Part B [id number]-2a06-hneh-[id number]-7y71-rtnc-ib41ouj82gn9 ANSI-Health Maintenance Organization ( O) [id number]-2492-f810-5q4516hm595q [employer](To) Commercial [id number] Self [id number] [facility]-Health Maintenance Organization ( O) [id number] ANSI-Medicare Part B [id number] [id number]-y50t-9180-6j4p-xlq2503t35r5 [facility] [id number]-1335-y06j-59gf08q83048 ANSI-Medicare Part B [id number]-743p-[id number] [id number]-697z-5971-34je8420z95e [facility] ( [facility]) [id number]-43g4-[id number] ANSI-Medicare Part B [id number]-1y9m-6224-869x-5980ioh8hy2h 88k6k3ya-8y9f-4596-826f-3409hcu9ul9w ANSI-Medicare Part B [id number]-5418-nc35d0p4f5c7 6e28l30m-ari9-2ycl-7326-xe62a7p6m6r1 MEDICARE COMPLETE [id number] SP [id number] ANSI-Medicare Part B [id number]-ybq8-62m84v764s6y 565s5137-2991-633l-krh9-39d60o653x7i [facility] 2.16.840.1.858626.3.441 [id number] [place] dicare Part B [id number] ANSI-Medicare Part B [id number]-811a-cj85-r9m2965o3559 43132378-qyfs-964d-jn29-o5a1274x7044 ANSI-Medicare Part B [id number]-qj7g-h44927k0c4yn m13c4u54-08b6-9i5u-cu4z-h25205b6s7pg ANSI-Medicare Part B 8337jvs0-54ux-15t1-z1cm-z45nx31tbj89 0929mpu0-93dw-42w8-f3pg-z85rj11ffm94 ANSI-Medicare Part B [id number]-8279-16g2-c1q1-310158avfg32 r3r655rg-5541-83m9-i7g1-744504jupk64 ANSI-Medicare Part B [id number]-214h-1701-ro0c-0682842bcxem 3579l27s-865d-2379-sf0d-7144556vbozj ANSI-Medicare Part B [id number]-k95f-8989g105gt2n 73d26g54-7yb5-8w40-v34n-5024y261wg2p ANSI-Medicare Part B 5u39ccv1-395x-2e76-w845-377x03d421ze 4k70den1-535i-6z54-v836-378b43t086uu ANSI-Medicare Part B o2k13mk0-r0h1-6zlv-951k-jff19d1h6ev9 m4d69ft2-i8k1-3plw-617u-ngq90k0q3bs3 ANSI-Medicare Part B 7q5g6v88-5iw2-22xc-fi52-86o131ivn585 5r9k8l31-1nj5-10fh-dq93-79x730egx606 ANSI-Medicare Part B 0t54xt4c-4u55-4776-1pef-7g0h17w69b69 8m33ea5x-5p35-3621-3ygf-7l7i70x29m83 [facility]/Medicare Solu Commercial [id number] 2.16.840.1.154862.3.227.99.1767.2179.0 Self 9 [id number] ANSI-Medicare Part B [id number]-90b09kei9x6z 7009e816-84h2-71k9-360n-84f03hyi5e4q ANSI-Medicare Part B 98r6jz0a-3uzw-4270-201i-59ub982g8la3 36o6dm8z-1frp-6735-373v-40sy508r1ha3 ANSI-Medicare Part B 5wq2v161-2987-9y84-346t-n2p2261o60g6 9ld9u286-3726-0l50-224n-a3j3335t87l6 MEDICARE COMPLETE-UHC O [id number] S [id number] ANSI-Medicare Part B iwdw1767-vc25-89if-8jz9-c1i5qh101r1n esxk9026-zl19-99xq-9xg6-h9h9ht194x6t ANSI-Medicare Part B [id number]-i06m-ke6736yb5227 u8s1x464-9qw6-70q6-y03h-yf2087er2696 ANSI-Medicare Part B [id number]-71k7-7494-w209-650f71882k34 8gq5937s-40y9-6674-h298-776e64554v74 ANSI-Medicare Part B 48od8rz8-f537-33gk-n3er-3a7w0hy13ww4 15ui2nh8-x477-17pp-g6mo-3t9t5rf18pk6 ANSI-Medicare Part B [id number]-o651-15mt-q8cm-0h6i910a8857 8k873uh2-k992-54yb-z8zq-4t1u539j4353 ANSI-Medicare Part B [id number]-8kv6-970i-lye29604k8i6 zt548144-m0vy-1gx4-623z-vao86251o1y7 ANSI-Medicare Part B 9655o0gy-m967-8buw-sm48-9364ck573g0t 8151d4gm-l198-0bdt-hu56-0022fs093k3e ANSI-Medicare Part B [id number]-0b59-[id number] [id number]-5t90-p258-226979x16z22 ANSI-Medicare Part B 656mel67-o3uv-3i08-8cg3-ke85438g9dgo 057lov85-t1gl-7i72-9ud6-od49314v9zvr ANSI-Medicare Part B [id number]-bzrm-0bl1-u7e4-x42np9q8506y m1b23v04-eodr-8nr0-m2k9-g29hg5d5510m [facility]-Medicare Solutions Commercial [id number] Self 9 [id number] [facility] Medicare Commercial [id number]9.8646.121657.0 Self [id number] [facility] Commercial [id number] 2.16.840.1.503340.3.227.99.572.88732.0 Self 9 [id number] [facility] Commercial [id number]9.991.470589.0 Self [id number] MEDICARE COMPLETE [id number] SP [id number] [facility] [id number] S [id number] MEDICARE COMPLETE-UH O [id number] S [id number] HEA [id number] UNAVAILABLE UNAVAILA BLE Uh-Medicare YES.TAP [id number] 2.16.840.1.768687.3.227.99.572.59428.0 Self 9 [id number] [facility]-Medicare Solutions Commercial [id number] 2.16.840.1.746787.3.227.99.572.95052.0 Self 9 [id number] [facility]-Medicare Solutions Commercial [id number] 2.16.840.1.367224.3.227.99.572.92346.0 Self 9 [id number] [facility]-Medicare Solutions Commercial [id number] 2.16.840.1.520240.3.227.99.572.12078.0 Self 9 [id number] [facility]-Medicare Solutions Commercial [id number] [id number] Self 9 [id number] [facility]-Medicare YES.TAP [id number] [id number] Self 9 [id number] [facility] Commercial [id number] Self MEDICARE COMPLETE [id number] SP [id number] [facility] [id number] 18 [id number] [employer] MEDICARE-O/P [id number] 18 [id number] [employer] MEDICARE-CLINIC [id number] 18 [id number] AETNA MEDICARE [id number] SP [id number] AETNA MEDICARE [id number] SP [id number] MEDICARE COMPLETE [id number] SP [id number] AETNA HEA [id number] S [id number] AETNA MEDICARE [id number] SP [id number] SELF PAY ONLY SP SELF PAY ONLY - SP1 SP AETNA MEDICARE O [id number] S MEBTW 60M AETNA MEDICARE [id number] SP [id number] 60M MEDICARE C [id number] S [id number] MEDICARE [id number] SP [id number] MEDICARE JADA [id number] S [id number] AETNA HEA [id number] S [id number] MEDICARE JADA [id number] 7A AETNA MEDICARE [id number] SP [id number] WELLCARE [id number] SP [id number] WELLCARE O [id number] S [id number] WELLCARE [id number] SP [id number] WELLCARE O [id number] O [id number] WELLCARE HEALTH PLANS [id number] S [id number] Problems, Conditions, and Diagnoses Code Display Name Description Problem Type Effective Dates Data Source(s) I10 Essential (primary) hypertension Essential (primary) h ypertension Diagnosis 08/13/2020 04:05:29 PM EST [facility] E78.2 Mixed hyperlipidemia Mixed hyperlipidemia Diagnosis 08/13/2020 04:05:29 PM EST [facility] 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 Diagnosis 07/05/2020 12:57:00 PM EDT [facility] E11.319 Retinopathy due to type 2 diabetes melli tus Retinopathy due to type 2 diabetes mellitus Problem 06/16/2021 12:00:00 AM EDT [facility] ([facility]) E66.01 Morbid obesity Morbid obesity Problem 06/16/2021 12:00: 00 AM EDT [facility] ([facility], ) D63.1 Anemia of chronic renal failure Anemia of chronic cayden l failure Problem 06/16/2021 12:00:00 AM EDT [facility] ([facility], ) N18.5 Chronic kidney disease stage 5 Chronic kidney disease stage 5 Problem 06/16/2021 12:00:00 AM EDT [facility] ([facility], ) I65.22 Carotid artery occlusion Carotid artery occlusion Prob terrance 06/16/2021 12:00:00 AM EDT [facility] ([facility], ) I50.32 [id number] Chronic diastolic (congestive) heart fail ure Problem 04/15/2021 12:00:00 AM EDT eCW1 ([facility]) N20.0 [id number] Renal calculus, left Problem 03/07/2021 12:0 0:00 AM EDT eC ([facility]) H43.822 [id number] Vitreomacular adhesion, left eye Pro blem 02/14/2021 12:00:00 AM EDT eCW1 ([facility]) N18.4 [id number] Stage 4 chronic kidney disease Problem 12/27/2020 12:00:00 AM EDT eCW1 ([facility]) N20.0 [id number] Renal calculus Problem 12/15/2020 12:00:00 A M EDT eC1 ([facility]) E11.65 [id number] Type 2 diabetes mellitus with hyperglycem ia Problem 11/26/2020 12:00:00 AM EST eCW1 ([facility]) K21.9 336798225 Gastroesophageal ref lux disease, unspecified whether esophagitis present Problem 10/13/2020 12:00:00 AM EST eCW1 ([facility]) 37826402 Paresthesia Paresthesia Problem 09/09/2020 12:00:00 AM EST [facility] ([facility], ) 62391869 Tremor Tremor Problem 09/09/2020 12:00:00 AM ES T [facility] ([facility], ) F41.9 84884740 Anxiety Problem 07/22/2020 12:00:00 AM ED T eCW1 ([facility]) G89.29 24195502 Other chronic pain Problem 07/22/2020 12:00: 00 AM EDT eCW1 ([facility]) E04.1 617150215 Thyroid nodule Problem 07/22/2020 12:00:00 A M EDT eCW1 ([facility]) Surgeries/Procedures Procedure Description Date Indications Data Source(s) OFFICE OUTPATIENT VISIT 25 MINUTES 06/16/2021 12:00:00 AM EDT [facility] ([facility], ) OFFICE OUTPATIENT NEW 30 MINUTES 06/14/2021 12:00:00 A M EDT [facility] ([facility]) Spirometry 05/18/2021 12:00:00 AM EDT [facility] ([facility]) OFFICE OUTPATIENT VISIT 25 MINUTES 05/18/2021 12:00:00 AM EDT [facility] ([facility], ) ECG ROUTINE ECG W/LEAST 12 LDS W/I&R 02/14/2021 12:00: 00 AM EDT eC ([facility]) Medication: Lidocaine HCl 2% Jelly 5mL Intravesically 02/11/2021 12:00:00 AM EDT eC ([facility]) ELECTROENCEPHALOGRAM W/REC AWAKE&ASLEEP 02/01/2021 12: 00:00 AM EDT [facility] ([facility] ) ELECTROENCEPHALOGRAM W/REC AWAKE&ASLEEP 02/01/2021 12: 00:00 AM EDT [facility] ([facility] ) INSJ TEMP NDWELLG BLADDER CATHETER SIMPLE 01/03/2021 1 2:00:00 AM EDT eCW ([facility]) ECG ROUTINE ECG W/LEAST 12 LDS W/I&R 12/27/2020 12:00: 00 AM EDT eCW ([facility]) TSTG ANS FUNCJ CARDIOVAGAL INNERVAJ PARASYMP 1 12:00:00 AM EST [facility] ([facility] ) TSTG ANS FUNCJ CARDIOVAGAL INNERVAJ PARASYMP 1 12:00:00 AM EST [facility] ([facility]) TESTING AUTONOMIC NERVOUS SYSTEM FUNCTION 10/29/2020 1 2:00:00 AM EST [facility] ([facility]) TESTING AUTONOMIC NERVOUS SYSTEM FUNCTION 10/29/2020 1 2:00:00 AM EST [facility] ([facility]) MRI BRAIN BRAIN STEM W/O CONTRAST MATERIAL 10/19/2020 12:00:00 AM EST [facility] ([facility]) MRI BRAIN BRAIN STEM W/O CONTRAST MATERIAL 10/19/2020 12:00:00 AM EST [facility] ([facility]) MRI SPINAL CANAL CERVICAL W/O CONTRAST MATRL 1 12:00:00 AM EST [facility] ([facility]) MRI SPINAL CANAL CERVICAL W/O CONTRAST MATRL 1 12:00:00 AM EST [facility] ([facility]) Results ID Date Data Source [id number] 05/18/2021 01:21:00 PM EDT [facility] ([facility]) Name Value Range Interpretation Code Description Data Naa rce(s) Supporting Document(s) PDFReport Laboratory test result [facility] ([facility]) FVC-Pred 2.69 L [facility] ([facility]) FVC-Pre 1.76 L [facility] ([facility]) FVC-%Pred-Pre 65 L [facility] ([facility]) Fev1-Pred 2.05 L [facility] ([facility]) FVC-LLN 2.08 L [facility] ([facility]) Fev1-Pre 1.47 L [facility] ([facility]) Fev1-%Pred-Pre 71 L [facility] ([facility]) Fev1-LLN 1.53 L [facility] ([facility]) Fev6-Pred 2.57 L [facility] ([facility]) Fev6-%Pred-Pre 68 L [facility] ([facility]) Fev6-Pre 1.76 L [facility] ([facility]) Fev6-LLN 1.98 L [facility] ([facility]) Sur9fuf-Czmd 77 % [facility] ([facility]) Yce7bli-Pqr 83 % [facility] ([facility]) Myl1cbz-%Pred-Pre 108 % [facility] ([facility]) Gvw1avv-Zbwz 96 % [facility] ([facility]) Xsx3eto-SIT 67 % [facility] ([facility]) Xna6ygp-Xsl 100 % [facility] ([facility]) Zdz2vfh-%Pred-Pre 104 % [facility] ([facility]) FEFMax-Pred 5.40 L/E/sec [facility] ([facility]) FEFMax-Pre 5.73 L/E/sec [facility] ([facility]) FEFMax-%Pred-Pre 106 L/E/sec [facility] ([facility]) FEFMax-LLN 3.89 L/E/sec [facility] ([facility]) Syt2359-Bgpq 1.91 L/E/sec [facility] ([facility]) Bmv1448-Ptq 1.70 L/E/sec [facility] ([facility]) Xni2740-%Pred-Pre 89 L/E/sec [facility] ([facility]) ExpTime-Pre 6.35 sec [facility] ([facility]) Fdz4144-QDK 0.82 L/E/sec [facility] ([facility]) Gxk8ixx7-Egv 83 % [facility] ([facility]) Qgc5zkz0-Iqqg 80 % [facility] ([facility]) Lid6yqj2-%Pred-Pre 104 % [facility] ([facility]) Hfd1gpv4-HEI 71 % [facility] ([facility]) ID Date Data Source [id number] 03/28/2021 04:59:00 PM EDT [facility] Name Value Range Interpretation Code Description Data Naa rce(s) Supporting Document(s) SARS coronavirus 2 RNA [Presence] in Res piratory specimen by JOHN with probe detection NEGATIVE [place] This lab was ordered by [facility] a nd reported by [facility]. ID Date Data Source [id number] 02/22/2021 09:36:04 AM EDT [facility] Name Value Range Interpretation Code Description Data Naa rce(s) Supporting Document(s) POC GLUCOSE 241 mg/dL (70-99) H [facility] PERFORMED BY CLINICAL STAFF ID Date Data Source [id number] 02/22/2021 08:56:58 AM EDT [facility] Name Value Range Interpretation Code Description Data Naa rce(s) Supporting Document(s) POC GLUCOSE 243 mg/dL (70-99) H [facility] PERFORMED BY CLINICAL STAFF ID Date Data Source [id number] 03/08/2021 10:45:00 AM EDT [facility] [address] [id number] NAME: REGGIE JOHNSON OF : 1955REPORT: OPERATIONPATIENT NUMBER: [id number] STATUS: SDMEDICAL RECORD NUMBER: [id number] OF ADMISSION: 1DATE OF DISCHARGE:ROOM: 01DATE OF PROCEDURE: 1PREOPERATIVE DIAGNOSIS: Proliferative diabetic retinopathy, vitreoushemorrhage, tractional retinal detachment, left eye.PROCEDURES: Left eye:1. 25-gauge pars plana vitrectomy.2. Membrane peel.3. Endolaser.4. SF6 gas 24 percent.COMPLICATIONS: None.BLOOD LOSS: Minimal.SPECIMENS: None.ANESTHESIA: MAC, PBB.BRIEF HISTORY: This patient presented with worsening tractional retinaldetachment and vitreous hemorrhage in the left eye. Risks, benefits,alternatives were discussed with her. She requested to proceed withvitrectomy, any associated procedures and signed the consent form.DESCRIPTION OF PROCEDURE: [facility]. The correct eye was confirmed and marked. Shewas then escorted to the operating room. A timeout was performed. Shethen underwent intravenous sedation followed by peribulbar block. The eyewas then prepped and draped in the usual sterile ophthalmic fashion. A lidspeculum was inserted. Trocar cannulas were placed 3.5 mm away from thelimbus inferotemporal, superotemporal, superonasal. A 4-mm infusion linewas placed inside the vitreous cavity and then turned on. Core vitrectomywas performed. The hyaloid was down. There was a tractional retinaldetachment along the [place]. The vitreous connected to fibrovascularplaque block. All vitreous traction was then released as much as possible.There was minimal bleeding, which was controlled. A small hole was creatediatrogenically inferiorly. There was no more vitreous traction at all. Endolaser was then performed 360 degrees in PRP fashion. A completefluid-air exchange was performed and then the air was exchanged for SF6 gas24 percent. Trocar cannulas were then removed from the eye. Eye pressureremained normotensive. The superotemporal sclerotomy was sutured. Theremaining sclerotomies were airtight. A small PSTK 2 mg was given. Thelid speculum was then removed. The drapes removed. The eye was cleanedand dried. A drop of timolol and Maxitrol was placed on the eye. The eyewas then patched and shielded and she was escorted back to the recoveryunit in stable condition. Asked to remain in face down position and followup in clinic the next morning.DICTATED BY: SHLOMO Anneictated: 02/22/2021 8:35DT: 02/22/2021 8:40Job #: [id number]: [facility] computer generated reports are not confirmed orauthenticated unless they are signed by the providerElectronically Authenticated by:FRANKY AARON MD On 03/08/2021 10:45 AM EDT Name Value Range Interpretation Code Description Data Naa rce(s) Supporting Document(s) ID Date Data Source [id number] 02/22/2021 07:06:11 PM EDT [facility] Name Value Range Interpretation Code Description Data Naa rce(s) Supporting Document(s) POC GLUCOSE 248 mg/dL (70-99) H [facility] Marielena Castro NOTIFIED NURSEPERFORMED BY CLINICAL S TAFF ID Date Data Source [id number] 02/22/2021 07:06:06 PM EDT [facility] Name Value Range Interpretation Code Description Data Naa rce(s) Supporting Document(s) POC GLUCOSE 247 mg/dL (70-99) H [facility] NOTIFIED NURSEPERFORMED BY CLINICAL S TAFF ID Date Data Source [id number] 02/17/2021 12:20:00 PM EDT [facility] Name Value Range Interpretation Code Description Data Naa rce(s) Supporting Document(s) SARS-CoV-2 (COVID-19) RNA [Presence] in Respiratory specimen by JOHN with probe detection Not Detected [facility] was ordered by [facility] and reported by [employer]. ID Date Data Source Basic Metabolic Profile (BMP) 02/11/2021 12:00:00 AM EDT eCW 1 ([facility]) Name Value Range Interpretation Code Description Data Naa rce(s) Supporting Document(s) 55 7-18 BLOOD UREA NITROGEN eCW1 ([facility]) 157 70-100 GLUCOSE, FASTING eCW1 ([facility]) 2.15 0.55-1.30 CREATININE FOR GFR eCW1 ([facility]) 143 136-145 SODIUM LEVEL eCW1 ([facility]) 24.5 >45 GLOMERULAR FILTRATION RATE eCW 1 ([facility]) 4.5 3.5-5.1 POTASSIUM SERUM eCW1 ([facility]) 110 98-107 CHLORIDE LEVEL eCW1 ([facility]) 26 21-32 CARBON DIOXIDE LEVEL eCW1 ([facility]) 9.0 8.8-10.2 CALCIUM LEVEL eCW1 ([facility]) ID Date Data Source [id number] 02/11/2021 12:00:00 AM EDT eCW1 ([facility]) Name Value Range Interpretation Code Description Data Naa rce(s) Supporting Document(s) Hemoglobin A1c/Hemoglobin.total in Blood 7.3 HEMOGLOBIN A1c eCW1 ([facility]) ID Date Data Source CBC - Complete Blood Count 02/11/2021 12:00:00 AM EDT eCW1 ( [facility]) Name Value Range Interpretation Code Description Data Naa rce(s) Supporting Document(s) 4.28 4.00-5.40 RED BLOOD COUNT eCW1 ([facility]) 8.8 4.0-10.0 WHITE BLOOD COUNT eCW1 ([facility]) 37.3 36.0-47.0 HEMATOCRIT eCW1 ([facility]) 11.9 12.0-15.5 HEMOGLOBIN eCW1 ([facility]) 87.1 80.0-96.0 MEAN CORPUSCULAR VOLUME e CW1 ([facility]) 27.8 27.0-33.0 MEAN CORPUSCULAR HEMOGLOB IN eCW1 ([facility]) 31.9 32.0-36.5 MEAN CORPUSCULAR HGB CONC eCW1 ([facility]) 12.0 11.5-14.5 RED CELL DISTRIBUTION WID TH eCW1 ([facility]) 255 150-450 PLATELET COUNT, AUTOMATED eCW1 ([facility]) ID Date Data Source [id number] 01/01/2021 10:30:00 AM EDT [facility] Name Value Range Interpretation Code Description Data Naa rce(s) Supporting Document(s) SARS-CoV-2 (COVID-19) RNA [Presence] in Respiratory specimen by JOHN with probe detection Not Detected [facility] This lab was ordered by [facility] and reported by [employer] ID Date Data Source URINE CULTURE 12/02/2020 12:00:00 AM EST W1 ([facility]) Name Value Range Interpretation Code Description Data Naa rce(s) Supporting Document(s) Laboratory studies (set) URINE CULTU RE eCW1 ([facility]) ID Date Data Source UA URINALYSIS 12/02/2020 12:00:00 AM EST W1 ([facility]) Name Value Range Interpretation Code Description Data Naa rce(s) Supporting Document(s) Laboratory studies (set) UA URINALYS IS eCW1 ([facility]) ID Date Data Source [id number] 11/26/2020 07:18:00 PM EST [facility] Name Value Range Interpretation Code Description Data Naa rce(s) Supporting Document(s) SARS coronavirus 2 RNA [Presence] in Res piratory specimen by JOHN with probe detection NEGATIVE [facility] This lab was ordered by [facility] a nd reported by [facility]. ID Date Data Source LIPID PANEL (CARDIAC RISK) 11/04/2020 12:00:00 AM EST eCW1 ( [facility]) Name Value Range Interpretation Code Description Data Naa rce(s) Supporting Document(s) Cholesterol in HDL [Moles/volume] in Serum or Plasma 41 >40 HDL CHOLESTEROL eCW1 ([facility]) Triglyceride [Mass/volume] in Serum or Plasma by calculation 306 <150 TRIGLYCERIDES LEVEL eCW1 ([facility]) Cholesterol [Moles/volume] in Serum or Plasma 196 <200 CHOLESTEROL LEVEL eCW1 ([facility]) Cholesterol in LDL [Mass/volume] in Serum or Plasma by calculation 94 <100 LDL CHOLESTEROL eCW1 ([facility]) 4.780 <5 CHOLESTEROL RISK RATIO eCW1 ([facility]) 155 NON-HDL-C eCW1 ([facility]) ID Date Data Source [id number] 09/21/2020 12:05:00 PM EST [facility] Name Value Range Interpretation Code Description Data Naa rce(s) Supporting Document(s) SARS coronavirus 2 RNA [facility] This lab was ordered by [facility] and reported by [facility]. ID Date Data Source [id number] 09/09/2020 09:07:00 AM EST [facility] ([facility], ) Name Value Range Interpretation Code Description Data Naa rce(s) Supporting Document(s) Thyrotropin [Units/volume] in Serum or Plasma 2.310 uIU/mL 0.450-4.50 0 [facility]ENT ([facility], ) A courtesy copy of this report has been sent to [phone], the patient Test(s) 723465-Owmixxn E(Alpha Tocopherol); 846985- Vitamin E(Gamma Tocopherol); 865003-Gofqcoj B6; 934044- Vit. B1, Whole Blood was developed and its performance characteristics determined by [facility]. It has not been cleared or approved by the Food and Drug Administration. Thyroxine (T4) free [Mass/volume] in Serum or Plasma 1.15 ng/dL 0.82- 1.77 [facility] ([facility]) A courtesy copy of this report has been sent to [phone], the patient Test(s) 756050-Mxmmpap E(Alpha Tocopherol); 858625- Vitamin E(Gamma Tocopherol); 198432-Bfdpois B6; 783339- Vit. B1, Whole Blood was developed and its performance characteristics determined by [facility]. It has not been cleared or approved by the Food and Drug Administration. Thiamine [Mass/volume] in Blood 138.3 nmol/L 66.5-200.0 [facility] ([facility]) A courtesy copy of this report has been sent to [phone], the patient Test(s) 132426-Aqbjmik E(Alpha Tocopherol); 112168- Vitamin E(Gamma Tocopherol); 646142-Qhmtyzc B6; 032867- Vit. B1, Whole Blood was developed and its performance characteristics determined by [facility]. It has not been cleared or approved by the Food and Drug Administration. Pyridoxine [Mass/volume] in Serum or Plasma 5.3 ug/L 2.0-32.8 [facility] ([facility]) A courtesy copy of this report has been sent to [phone], the patient Test(s) 198915-Qsbpatc E(Alpha Tocopherol); 890201- Vitamin E(Gamma Tocopherol); 284628-Zxebsvo B6; 736644- Vit. B1, Whole Blood was developed and its performance characteristics determined by [facility]. It has not been cleared or approved by the Food and Drug Administration. Laboratory test finding (navigational concept) Laboratory test result [facility] ([facility]) A courtesy copy of this report has been sent to [phone], the patient Test(s) 118631-Olowqhm E(Alpha Tocopherol); 550039- Vitamin E(Gamma Tocopherol); 961820-Caedggk B6; 595410- Vit. B1, Whole Blood was developed and its performance characteristics determined by [facility]. It has not been cleared or approved by the Food and Drug Administration. ID Date Data Source [id number] 09/09/2020 09:07:00 AM EST [facility] ([facility]) Name Value Range Interpretation Code Description Data Naa rce(s) Supporting Document(s) Alpha tocopherol [Mass/volume] in Serum or Plasma 11.0 mg/L 9.0-29.0 [facility] ([facility]) A courtesy copy of this report has been sent to [phone], the patient Test(s) 829089-Rccrton E(Alpha Tocopherol); 528893- Vitamin E(Gamma Tocopherol); 799653-Pbytzba B6; 705203- Vit. B1, Whole Blood was developed and its performance characteristics determined by [facility]. It has not been cleared or approved by the Food and Drug Administration. Vitamin E(Gamma Tocopherol) 1.7 mg/L 0.5-4.9 [facility] ([facility]) A courtesy copy of this report has been sent to [phone], the patient Test(s) 692111-Pvfuuer E(Alpha Tocopherol); 186133- Vitamin E(Gamma Tocopherol); 471575-Lxzumjk B6; 142747- Vit. B1, Whole Blood was developed and its performance characteristics determined by [facility]. It has not been cleared or approved by the Food and Drug Administration. ID Date Data Source [id number] 09/09/2020 09:07:00 AM EST [facility] ([facility]) Name Value Range Interpretation Code Description Data Naa rce(s) Supporting Document(s) Folate (Folic Acid), Serum 10.6 ng/mL [facility] ([facility]) A courtesy copy of this report has been sent to [phone], the patient Test(s) 519112-Owienyh E(Alpha Tocopherol); 077794- Vitamin E(Gamma Tocopherol); 478548-Prdfpzk B6; 203659- Vit. B1, Whole Blood was developed and its performance characteristics determined by [facility]. It has not been cleared or approved by the Food and Drug Administration. Cobalamin (Vitamin B12) [Mass/volume] in Serum or Plasma 619 pg/mL 2 32-2195 [facility] ([facility], ) A courtesy copy of this report has been sent to [phone], the patient Test(s) 583054-Iulztnr E(Alpha Tocopherol); 390440- Vitamin E(Gamma Tocopherol); 801877-Djoogmb B6; 932943- Vit. B1, Whole Blood was developed and its performance characteristics determined by [facility]. It has not been cleared or approved by the Food and Drug Administration. ID Date Data Source [id number] 09/09/2020 09:07:00 AM EST [facility] ([facility]) Name Value Range Interpretation Code Description Data Naa rce(s) Supporting Document(s) Thyroxine (T4) [Mass/volume] in Serum or Plasma 7.7 ug/dL 4.5-12.0 [facility] ([facility]) A courtesy copy of this report has been sent to [phone], the patient Test(s) 202812-Liujlqo E(Alpha Tocopherol); 805231- Vitamin E(Gamma Tocopherol); 845114-Bdiixee B6; 925534- Vit. B1, Whole Blood was developed and its performance characteristics determined by [facility]. It has not been cleared or approved by the Food and Drug Administration. Triiodothyronine resin uptake (T3RU) in Serum or Plasma 25 % 24 -39 [facility] ([facility]) A courtesy copy of this report has been sent to [phone], the patient Test(s) 733221-Unnujbo E(Alpha Tocopherol); 348943- Vitamin E(Gamma Tocopherol); 720252-Srytnuc B6; 049001- Vit. B1, Whole Blood was developed and its performance characteristics determined by [facility]. It has not been cleared or approved by the Food and Drug Administration. Thyroxine (T4) free index in Serum or Plasma by calculation 1.9 1.2-4.9 [facility] ([facility]) A courtesy copy of this report has been sent to [phone], the patient Test(s) 690089-Utettix E(Alpha Tocopherol); 896579- Vitamin E(Gamma Tocopherol); 209577-Morcqzs B6; 353804- Vit. B1, Whole Blood was developed and its performance characteristics determined by [facility]. It has not been cleared or approved by the Food and Drug Administration. ID Date Data Source [id number] 07/12/2020 05:59:47 PM EDT [facility] Name Value Range Interpretation Code Description Data Naa rce(s) Supporting Document(s) POC GLUCOSE 136 mg/dL (70-99) H Lab Yohan Castro PERFORMED BY CLINICAL STAFF ID Date Data Source [id number] 07/12/2020 12:47:02 PM EDT [facility] Name Value Range Interpretation Code Description Data Naa rce(s) Supporting Document(s) POC GLUCOSE 143 mg/dL (70-99) H [facility] PERFORMED BY CLINICAL STAFF ID Date Data Source [id number] 07/12/2020 08:11:35 AM EDT [facility] Name Value Range Interpretation Code Description Data Naa rce(s) Supporting Document(s) POC GLUCOSE 86 mg/dL (70-99) [facility] NOTIFIED NURSEPERFORMED BY CLINICAL S TAFF ID Date Data Source [id number] 07/12/2020 07:44:11 AM EDT [facility] Name Value Range Interpretation Code Description Data Naa rce(s) Supporting Document(s) VANCOMYCIN RANDOM 14.6 ug/mL [facility] THERAPEUTIC RANGE IS ONLY AVAILABLE FOR PEAK AND TROUGH SPECIMENS. RANDOM LEVEL RESULTS MUST BE INTERPRETED BY THE PHYSICIAN. ID Date Data Source [id number] 07/12/2020 07:44:11 AM EDT [facility] Name Value Range Interpretation Code Description Data Naa rce(s) Supporting Document(s) SODIUM 147 mmol/L (136-145) H [facility] POTASSIUM 4.7 mmol/L (3.6-5.2) [facility] CHLORIDE 118 mmol/L (100-108) H [facility] CO2 20 mmol/L (22-31) L [facility] ANION GAP 9 mmol/L (7-16) [facility] UREA NITROGEN 46 mg/dL (7-24) H [facility] CREATININE 1.84 mg/dL (0.60-1.00) H [facility] BUN/CREAT RATIO 25.0 RATIO (10.0-20.0) H [facility] GLUCOSE 82 mg/dL (70-99) [facility] CALCIUM 8.0 mg/dL (8.4-10.2) L [facility] GFR 28 ml/min/1.73m2 (>59) L [facility] GFR ( AMER) 33 ml/min/1.73m2 (>59) L [facility] GFR INTERPRETATION [facility] --NORMAL KIDNEY FUNCTION OR MILD DISEASE - GFR >OR= 60CHRONIC KIDNEY DISEASE - GFR 15 - 59RENAL FAILURE - GFR <15 Est. GFR calculation based on the MDRDstudy equation, which assumes a steadystate for creatinine. Est. GFR should notbe used for medication dosing. ID Date Data Source [id number] 07/12/2020 07:33:53 AM EDT [facility] [place] Name Value Range Interpretation Code Description Data Naa rce(s) Supporting Document(s) WBC 8.8 10*3/uL (4.1-11.0) [facility] [place] RBC 2.89 10*6/uL (4.00-5.40) L [facility] HGB 7.7 g/dL (12.0-16.0) L [facility] HCT 24.6 % (36.0-47.0) L [facility] MCV 85.1 fL (80.0-95.0) [facility] MCH 26.7 pg (27.0-32.0) L [facility] MCHC 31.4 g/dL (32.0-36.0) L [facility] RDW 14.9 % (10.5-14.5) H [facility] PLT 252 10*3/uL (150-450) [facility] MPV 9.2 fL (7.1-10.7) [facility] ID Date Data Source [id number] 07/11/2020 09:28:10 PM EDT [facility] [place] Name Value Range Interpretation Code Description Data Naa rce(s) Supporting Document(s) POC GLUCOSE 155 mg/dL (70-99) H [facility] PERFORMED BY CLINICAL STAFF ID Date Data Source [id number] 07/11/2020 06:28:01 PM EDT [facility] [place] Name Value Range Interpretation Code Description Data Naa rce(s) Supporting Document(s) POC GLUCOSE 201 mg/dL (70-99) H [facility] PERFORMED BY CLINICAL STAFF ID Date Data Source [id number] 07/11/2020 01:23:48 PM EDT [facility] Name Value Range Interpretation Code Description Data Naa rce(s) Supporting Document(s) POC GLUCOSE 131 mg/dL (70-99) H [facility] PERFORMED BY CLINICAL STAFF ID Date Data Source [id number] 07/11/2020 08:42:29 AM EDT [facility] Name Value Range Interpretation Code Description Data Naa rce(s) Supporting Document(s) POC GLUCOSE 132 mg/dL (70-99) H [facility] NOTIFIED NURSEPERFORMED BY CLINICAL S TAFF ID Date Data Source [id number] 07/11/2020 06:58:21 AM EDT [facility] Name Value Range Interpretation Code Description Data Naa rce(s) Supporting Document(s) SODIUM 146 mmol/L (136-145) H [facility] POTASSIUM 4.9 mmol/L (3.6-5.2) [facility] CHLORIDE 118 mmol/L (100-108) H [facility] CO2 21 mmol/L (22-31) L [facility] ANION GAP 7 mmol/L (7-16) [facility] UREA NITROGEN 50 mg/dL (7-24) H [facility] CREATININE 2.07 mg/dL (0.60-1.00) H [facility] BUN/CREAT RATIO 24.2 RATIO (10.0-20.0) H [facility] GLUCOSE 146 mg/dL (70-99) H [facility] CALCIUM 7.8 mg/dL (8.4-10.2) L [facility] GFR 24 ml/min/1.73m2 (>59) L [facility] GFR ( AMER) 29 ml/min/1.73m2 (>59) L [facility] GFR INTERPRETATION [facility] --NORMAL KIDNEY FUNCTION OR MILD DISEASE - GFR >OR= 60CHRONIC KIDNEY DISEASE - GFR 15 - 59RENAL FAILURE - GFR <15 Est. GFR calculation based on the MDRDstudy equation, which assumes a steadystate for creatinine. Est. GFR should notbe used for medication dosing. ID Date Data Source [id number] 07/11/2020 06:32:22 AM EDT [facility] [place] Name Value Range Interpretation Code Description Data Naa rce(s) Supporting Document(s) WBC 10.8 10*3/uL (4.1-11.0) [facility] RBC 2.66 10*6/uL (4.00-5.40) L [facility] HGB 7.4 g/dL (12.0-16.0) L [facility] HCT 22.6 % (36.0-47.0) L [facility] MCV 84.9 fL (80.0-95.0) [facility] MCH 27.8 pg (27.0-32.0) [facility] MCHC 32.8 g/dL (32.0-36.0) [facility] RDW 14.4 % (10.5-14.5) [facility] PLT 260 10*3/uL (150-450) [facility] MPV 9.4 fL (7.1-10.7) [facility] ID Date Data Source [id number] 07/10/2020 09:44:32 PM EDT [facility] [place] Name Value Range Interpretation Code Description Data Naa rce(s) Supporting Document(s) POC GLUCOSE 184 mg/dL (70-99) H [facility] PERFORMED BY CLINICAL STAFF ID Date Data Source [id number] 07/10/2020 05:16:01 PM EDT [facility] [place] Name Value Range Interpretation Code Description Data Naa rce(s) Supporting Document(s) POC GLUCOSE 155 mg/dL (70-99) H [facility] PERFORMED BY CLINICAL STAFF ID Date Data Source [id number] 07/10/2020 01:03:49 PM EDT [facility] Name Value Range Interpretation Code Description Data Naa rce(s) Supporting Document(s) POC GLUCOSE 182 mg/dL (70-99) H [facility] NOTIFIED NURSEPERFORMED BY CLINICAL S TAFF ID Date Data Source [id number] 07/10/2020 09:37:51 AM EDT [facility] Name Value Range Interpretation Code Description Data Naa rce(s) Supporting Document(s) POC GLUCOSE 130 mg/dL (70-99) H [facility] PERFORMED BY CLINICAL STAFF ID Date Data Source [id number] 07/10/2020 09:51:07 AM EDT [facility] Name Value Range Interpretation Code Description Data Naa rce(s) Supporting Document(s) VANCOMYCIN RANDOM 21.2 ug/mL [facility] THERAPEUTIC RANGE IS ONLY AVAILABLE FOR PEAK AND TROUGH SPECIMENS. RANDOM LEVEL RESULTS MUST BE INTERPRETED BY THE PHYSICIAN. ID Date Data Source [id number] 07/10/2020 05:33:22 AM EDT [facility] Name Value Range Interpretation Code Description Data Naa rce(s) Supporting Document(s) WBC 12.2 10*3/uL (4.1-11.0) H [facility] RBC 2.70 10*6/uL (4.00-5.40) L [facility] HGB 7.3 g/dL (12.0-16.0) L [facility] HCT 22.9 % (36.0-47.0) L [facility] MCV 85.1 fL (80.0-95.0) [facility] MCH 27.0 pg (27.0-32.0) [facility] MCHC 31.7 g/dL (32.0-36.0) L [facility] RDW 14.2 % (10.5-14.5) [facility] PLT 258 10*3/uL (150-450) [facility] MPV 9.3 fL (7.1-10.7) [facility] ID Date Data Source [id number] 07/10/2020 05:54:42 AM EDT [facility] Name Value Range Interpretation Code Description Data Naa rce(s) Supporting Document(s) SODIUM 145 mmol/L (136-145) [facility] POTASSIUM 4.8 mmol/L (3.6-5.2) [facility] CHLORIDE 119 mmol/L (100-108) H [facility] CO2 22 mmol/L (22-31) [facility] ANION GAP 4 mmol/L (7-16) L [facility] UREA NITROGEN 52 mg/dL (7-24) H [facility] CREATININE 2.13 mg/dL (0.60-1.00) H [facility] BUN/CREAT RATIO 24.4 RATIO (10.0-20.0) H [facility] GLUCOSE 162 mg/dL (70-99) H [facility] CALCIUM 7.7 mg/dL (8.4-10.2) L [facility] GFR 23 ml/min/1.73m2 (>59) L [facility] GFR ( AMER) 28 ml/min/1.73m2 (>59) L [facility] GFR INTERPRETATION [facility] --NORMAL KIDNEY FUNCTION OR MILD DISEASE - GFR >OR= 60CHRONIC KIDNEY DISEASE - GFR 15 - 59RENAL FAILURE - GFR <15 Est. GFR calculation based on the MDRDstudy equation, which assumes a steadystate for creatinine. Est. GFR should notbe used for medication dosing. ID Date Data Source [id number] 07/09/2020 10:05:35 PM EDT [facility] Name Value Range Interpretation Code Description Data Naa rce(s) Supporting Document(s) POC GLUCOSE 177 mg/dL (70-99) H [facility] PERFORMED BY CLINICAL STAFF ID Date Data Source [id number] 07/09/2020 06:44:59 PM EDT [facility] Name Value Range Interpretation Code Description Data Naa rce(s) Supporting Document(s) POC GLUCOSE 161 mg/dL (70-99) H [facility] NOTIFIED NURSEPERFORMED BY CLINICAL S TAFF ID Date Data Source [id number] 07/09/2020 05:21:49 PM EDT [facility] [place] Name Value Range Interpretation Code Description Data Naa rce(s) Supporting Document(s) POC GLUCOSE 137 mg/dL (70-99) H [facility] NOTIFIED NURSEPERFORMED BY CH CLINICAL S TAFF ID Date Data Source [id number] 07/09/2020 01:18:10 PM EDT [facility] Name Value Range Interpretation Code Description Data Naa rce(s) Supporting Document(s) POC GLUCOSE 132 mg/dL (70-99) H [facility] PERFORMED BY CLINICAL STAFF ID Date Data Source [id number] 07/09/2020 04:28:00 PM EDT [facility] [id number] [place], [place] [address] NAME: REGGIE JOHNSON OF : 1955REPORT: DISCHARGE SUMMARYPATIENT NUMBER: [id number] STATUS: OF ADMISSION:DATE OF DISCHARGE:ROOM:For specifics of the admission, please see the H and P by *------* ourEMR 07/05/2020.CONSULTATIONS: Including Infectious Disease, Orthopedic Surgery, [facility].PHYSICAL EXAMINATION: Today, the patient indicates [...] disk disease at C3-C4 andC6-C7 resulting in [id number]-[id number] central spinal canal stenosis andeffacement of the ventral aspect of the thecal sac. MRI lumbar spine; noevidence of osteomyelitis, moderate central spinal canal stenosis at L2- T1iqwakjoaa to broad-based concentric disk bulge with associated ligamentumflavum hypertrophy/facet arthropathy. MRI thoracic spine, nonspecificfluid signal within T7-T8. Intervertebral disk space which is nonspecific.No significant marrow edema, paravertebral soft tissue swelling or epiduralfluid collection to suggest diskitis, osteomyelitis. Fgdrzfzqorxnku68/06/2020; normal LV size and systolic function, estimated [...] patient on low potassium diet.DICTATED BY: Joie Myers MDDictated: 07/09/2020 12:28DT: 07/09/2020 12:39Job #: [id number]: [facility] computer generated reports are notconfirmed or authenticated unless they are signed by the providerElectronically Authenticated by:JOIE MYERS MD On 07/09/2020 04:28 PM EDT Name Value Range Interpretation Code Description Data Naa rce(s) Supporting Document(s) ID Date Data Source [id number] 07/09/2020 09:41:51 AM EDT [facility] Name Value Range Interpretation Code Description Data Naa rce(s) Supporting Document(s) VANCOMYCIN RANDOM 20.5 ug/mL [facility] THERAPEUTIC RANGE IS ONLY AVAILABLE FOR PEAK AND TROUGH SPECIMENS. RANDOM LEVEL RESULTS MUST BE INTERPRETED BY THE PHYSICIAN. ID Date Data Source [id number] 07/09/2020 09:01:48 AM EDT [facility] Name Value Range Interpretation Code Description Data Naa rce(s) Supporting Document(s) POC GLUCOSE 96 mg/dL (70-99) [facility] NOTIFIED NURSEPERFORMED BY CLINICAL S TAFF ID Date Data Source [id number] 07/09/2020 07:50:16 AM EDT [facility] Name Value Range Interpretation Code Description Data Naa rce(s) Supporting Document(s) SODIUM 146 mmol/L (136-145) H [facility] POTASSIUM 5.0 mmol/L (3.6-5.2) [facility] CHLORIDE 119 mmol/L (100-108) H [facility] CO2 20 mmol/L (22-31) L [facility] ANION GAP 7 mmol/L (7-16) [facility] UREA NITROGEN 57 mg/dL (7-24) [facility] CREATININE 2.33 mg/dL (0.60-1.00) H [facility] BUN/CREAT RATIO 24.5 RATIO (10.0-20.0) H [facility] GLUCOSE 93 mg/dL (70-99) [facility] CALCIUM 7.8 mg/dL (8.4-10.2) [facility] GFR 21 ml/min/1.73m2 (>59) L [facility] GFR ( AMER) 25 ml/min/1.73m2 (>59) L [facility] GFR INTERPRETATION [facility] --NORMAL KIDNEY FUNCTION OR MILD DISEASE - GFR >OR= 60CHRONIC KIDNEY DISEASE - GFR 15 - 59RENAL FAILURE - GFR <15 Est. GFR calculation based on the MDRDstudy equation, which assumes a steadystate for creatinine. Est. GFR should notbe used for medication dosing. ID Date Data Source [id number] 07/09/2020 07:04:37 AM EDT [facility] Name Value Range Interpretation Code Description Data Naa rce(s) Supporting Document(s) WBC 11.7 10*3/uL (4.1-11.0) H [facility] RBC 2.69 10*6/uL (4.00-5.40) [facility] HGB 7.3 g/dL (12.0-16.0) [facility] HCT 23.2 % (36.0-47.0) [facility] MCV 86.3 fL (80.0-95.0) [facility] MCH 27.3 pg (27.0-32.0) [facility] MCHC 31.6 g/dL (32.0-36.0) L [facility] RDW 14.4 % (10.5-14.5) [facility] PLT 258 10*3/uL (150-450) [facility] MPV 9.7 fL (7.1-10.7) [facility] ID Date Data Source [id number] 07/08/2020 09:41:06 PM EDT [facility] Name Value Range Interpretation Code Description Data Naa rce(s) Supporting Document(s) POC GLUCOSE 182 mg/dL (70-99) [facility] PERFORMED BY CLINICAL STAFF ID Date Data Source [id number] 07/08/2020 05:35:55 PM EDT [facility] Name Value Range Interpretation Code Description Data Naa rce(s) Supporting Document(s) POC GLUCOSE 170 mg/dL (70-99) H [facility] ACUNA Matthew PERFORMED BY CLINICAL STAFF ID Date Data Source [id number] 07/10/2020 12:21:00 PM EDT Jaz Randle al DATE OF EXAM: 07/08/2020CT GUIDED BONE [...] space. X3End of diagnostic report for accession: [id number] Interpreted: Jose Martin Ortega MDTranscribed: 07/10/2020 12:16 PMSigned: 07/10/2020 12:21 PM Jose Martin Ortega MD ---- [facility] ACC # [id number] BILL # [id number] Name Value Range Interpretation Code Description Data Naa rce(s) Supporting Document(s) ID Date Data Source [id number] 07/13/2020 08:41:33 AM EDT [facility] SPECIMEN DESCRIPTION SITE T8 VERTEBRAESPECIAL REQUESTS NONECULTURE RESULTS NO ANAEROBES ISOLATED AFTER 5 DAYSREPORT STATUS FINAL 07/13/2020 Name Value Range Interpretation Code Description Data Naa rce(s) Supporting Document(s) ID Date Data Source [id number] 07/13/2020 08:41:28 AM EDT [facility] SPECIMEN DESCRIPTION SITE T8 VERTEBRAESPECIAL REQUESTS NONEGRAM STAIN MODERATE (10 TO 25/LPF) WHITE BLOOD CELLS NO BACTERIACULTURE RESULTS NO GROWTH 5 DAYSREPORT STATUS FINAL 07/13/2020 Name Value Range Interpretation Code Description Data Naa rce(s) Supporting Document(s) ID Date Data Source [id number] 07/09/2020 12:13:24 AM EDT [facility] SPECIMEN DESCRIPTION MISCELLANEOU S SPECIMENSPECIAL REQUESTS NONEGRAM STAIN NOT DONECULTURE RESULTS TEST(S) PROCESSED UNDER NEW ENTRY PLEASE SEE [facility] [id number]. [phone].REPORT STATUS FINAL 07/09/2020 Name Value Range Interpretation Code Description Data Naa rce(s) Supporting Document(s) ID Date Data Source [id number] 07/09/2020 12:12:32 AM EDT [facility] SPECIMEN DESCRIPTION MISCELLANEOU S SPECIMENSPECIAL REQUESTS NONECULTURE RESULTS TEST(S) PROCESSED UNDER NEW ENTRY PLEASE SEE [facility] [id number]. [phone].REPORT STATUS FINAL 07/09/2020 Name Value Range Interpretation Code Description Data Naa rce(s) Supporting Document(s) ID Date Data Source [id number] 07/08/2020 01:12:09 PM EDT [facility] Name Value Range Interpretation Code Description Data Naa rce(s) Supporting Document(s) POC GLUCOSE 172 mg/dL (70-99) H [facility] NOTIFIED NURSEPERFORMED BY CLINICAL S TAFF ID Date Data Source [id number] 07/12/2020 04:54:14 PM EDT [facility] [employer] [place], [place] [address]Tel# SURGICAL PATHOLOGY REPORTPatient Name:CELI JOHNSON:1955Received:07/09/2020Accession #:[id number](s) Received: A: 1 - 13g core [id number] Diagnosis and History: Thoracic spine osteomyelitis. DIAGNOSIS:BONE, [...] 07/12/2020Electronically Signed Out By Daisha Velazquez M.D. [facility] [place] [address]Technical component performed at [facility] 2[facility], Histopathology, [address] [place] [address], [facility].Report ed at [facility], [address] [place] [address], [facility].This report may include immunohistochemical or in- situ hybridizationresults. Testing was developed and the performance characteristicsdetermined by [facility], as required byCLIA '88. The FDA has determined that approval for specific use is notnecessary for clinical use. The quality of Hematoxylin and Eosin stainsand as applicable, for all immunohistochemical and/or special stains,including positive and negative controls, were reviewed and consideredappropriate.ICD codes: R89.7CPT4 codes: A: 73930J, 34447I Name Value Range Interpretation Code Description Data Naa rce(s) Supporting Document(s) ID Date Data Source [id number] 07/08/2020 07:46:05 AM EDT [facility] Name Value Range Interpretation Code Description Data Naa rce(s) Supporting Document(s) POC GLUCOSE 156 mg/dL (70-99) H Lab Yohan Y PERFORMED BY CLINICAL STAFF ID Date Data Source [id number] 07/08/2020 07:09:11 AM EDT [facility] Name Value Range Interpretation Code Description Data Naa rce(s) Supporting Document(s) VANCOMYCIN RANDOM 20.7 ug/mL [facility] THERAPEUTIC RANGE IS ONLY AVAILABLE FOR PEAK AND TROUGH SPECIMENS. RANDOM LEVEL RESULTS MUST BE INTERPRETED BY THE PHYSICIAN. ID Date Data Source [id number] 07/08/2020 07:09:11 AM EDT [facility] Name Value Range Interpretation Code Description Data Naa rce(s) Supporting Document(s) SODIUM 147 mmol/L (136-145) H [facility] POTASSIUM 4.8 mmol/L (3.6-5.2) [facility] CHLORIDE 118 mmol/L (100-108) H [facility] CO2 19 mmol/L (22-31) L [facility] ANION GAP 10 mmol/L (7-16) [facility] UREA NITROGEN 63 mg/dL (7-24) H [facility] CREATININE 2.46 mg/dL (0.60-1.00) H [facility] BUN/CREAT RATIO 25.6 RATIO (10.0-20.0) H [facility] GLUCOSE 149 mg/dL (70-99) H [facility] CALCIUM 7.7 mg/dL (8.4-10.2) L [facility] GFR 20 ml/min/1.73m2 (>59) L [facility] GFR ( AMER) 24 ml/min/1.73m2 (>59) L [facility] GFR INTERPRETATION [facility] --NORMAL KIDNEY FUNCTION OR MILD DISEASE - GFR >OR= 60CHRONIC KIDNEY DISEASE - GFR 15 - 59RENAL FAILURE - GFR <15 Est. GFR calculation based on the MDRDstudy equation, which assumes a steadystate for creatinine. Est. GFR should notbe used for medication dosing. ID Date Data Source [id number] 07/08/2020 06:36:38 AM EDT [facility] Name Value Range Interpretation Code Description Data Naa rce(s) Supporting Document(s) WBC 10.8 10*3/uL (4.1-11.0) [facility] RBC 2.64 10*6/uL (4.00-5.40) L [facility] HGB 7.4 g/dL (12.0-16.0) L [facility] HCT 22.4 % (36.0-47.0) L [facility] MCV 84.7 fL (80.0-95.0) [facility] MCH 27.9 pg (27.0-32.0) [facility] MCHC 32.9 g/dL (32.0-36.0) [facility] RDW 14.2 % (10.5-14.5) [facility] PLT 237 10*3/uL (150-450) [facility] MPV 9.9 fL (7.1-10.7) [facility] ID Date Data Source [id number] 07/07/2020 10:28:41 PM EDT [facility] Name Value Range Interpretation Code Description Data Naa rce(s) Supporting Document(s) POC GLUCOSE 203 mg/dL (70-99) H [facility] NOTIFIED NURSEPERFORMED BY CLINICAL S TAFF ID Date Data Source [id number] 07/07/2020 08:52:20 PM EDT [facility] Name Value Range Interpretation Code Description Data Naa rce(s) Supporting Document(s) SODIUM 145 mmol/L (136-145) [facility] POTASSIUM 5.1 mmol/L (3.6-5.2) [facility] CHLORIDE 120 mmol/L (100-108) H [facility] CO2 19 mmol/L (22-31) L [facility] ANION GAP 6 mmol/L (7-16) L [facility] UREA NITROGEN 64 mg/dL (7-24) H [facility] CREATININE 2.57 mg/dL (0.60-1.00) H [facility] BUN/CREAT RATIO 24.9 RATIO (10.0-20.0) H [facility] GLUCOSE 203 mg/dL (70-99) H [facility] CALCIUM 7.9 mg/dL (8.4-10.2) L [facility] GFR 19 ml/min/1.73m2 (>59) L [facility] GFR ( AMER) 23 ml/min/1.73m2 (>59) L [facility] GFR INTERPRETATION [facility] --NORMAL KIDNEY FUNCTION OR MILD DISEASE - GFR >OR= 60CHRONIC KIDNEY DISEASE - GFR 15 - 59RENAL FAILURE - GFR <15 Est. GFR calculation based on the MDRDstudy equation, which assumes a steadystate for creatinine. Est. GFR should notbe used for medication dosing. ID Date Data Source [id number] 07/07/2020 06:12:41 PM EDT [facility] Name Value Range Interpretation Code Description Data Naa rce(s) Supporting Document(s) POC GLUCOSE 171 mg/dL (70-99) H [facility] NOTIFIED NURSEPERFORMED BY CLINICAL S TAFF ID Date Data Source [id number] 07/07/2020 02:24:54 PM EDT [facility] Name Value Range Interpretation Code Description Data Naa rce(s) Supporting Document(s) SODIUM 142 mmol/L (136-145) [facility] POTASSIUM 5.6 mmol/L (3.6-5.2) H [facility] CHLORIDE 116 mmol/L (100-108) H [facility] CO2 19 mmol/L (22-31) L [facility] ANION GAP 7 mmol/L (7-16) [facility] UREA NITROGEN 68 mg/dL (7-24) H [facility] CREATININE 2.72 mg/dL (0.60-1.00) H [facility] BUN/CREAT RATIO 25.0 RATIO (10.0-20.0) H [facility] GLUCOSE 270 mg/dL (70-99) H [facility] CALCIUM 7.7 mg/dL (8.4-10.2) L [facility] GFR 18 ml/min/1.73m2 (>59) L [facility] GFR ( AMER) 21 ml/min/1.73m2 (>59) L [facility] GFR INTERPRETATION [facility] --NORMAL KIDNEY FUNCTION OR MILD DISEASE - GFR >OR= 60CHRONIC KIDNEY DISEASE - GFR 15 - 59RENAL FAILURE - GFR <15 Est. GFR calculation based on the MDRDstudy equation, which assumes a steadystate for creatinine. Est. GFR should notbe used for medication dosing. ID Date Data Source [id number] 07/07/2020 01:01:54 PM EDT [facility] Name Value Range Interpretation Code Description Data Naa rce(s) Supporting Document(s) POC GLUCOSE 293 mg/dL (70-99) H [facility] PERFORMED BY CLINICAL STAFF ID Date Data Source [id number] 07/07/2020 08:49:45 AM EDT [facility] Name Value Range Interpretation Code Description Data Naa rce(s) Supporting Document(s) POC GLUCOSE 221 mg/dL (70-99) H [facility] NOTIFIED NURSEPERFORMED BY CLINICAL S TAFF ID Date Data Source [id number] 07/07/2020 06:55:10 AM EDT [facility] Name Value Range Interpretation Code Description Data Naa rce(s) Supporting Document(s) VANCOMYCIN RANDOM 17.1 ug/mL [facility] THERAPEUTIC RANGE IS ONLY AVAILABLE FOR PEAK AND TROUGH SPECIMENS. RANDOM LEVEL RESULTS MUST BE INTERPRETED BY THE PHYSICIAN. ID Date Data Source [id number] 07/07/2020 06:55:10 AM EDT [facility] Name Value Range Interpretation Code Description Data Naa rce(s) Supporting Document(s) SODIUM 144 mmol/L (136-145) [facility] POTASSIUM 5.4 mmol/L (3.6-5.2) H [facility] CHLORIDE 118 mmol/L (100-108) H [facility] CO2 20 mmol/L (22-31) L [facility] ANION GAP 6 mmol/L (7-16) L [facility] UREA NITROGEN 69 mg/dL (7-24) H [facility] CREATININE 2.83 mg/dL (0.60-1.00) H [facility] BUN/CREAT RATIO 24.4 RATIO (10.0-20.0) H [facility] GLUCOSE 224 mg/dL (70-99) H [facility] CALCIUM 7.4 mg/dL (8.4-10.2) L [facility] GFR 17 ml/min/1.73m2 (>59) L [facility] GFR ( AMER) 20 ml/min/1.73m2 (>59) L [facility] GFR INTERPRETATION [facility] --NORMAL KIDNEY FUNCTION OR MILD DISEASE - GFR >OR= 60CHRONIC KIDNEY DISEASE - GFR 15 - 59RENAL FAILURE - GFR <15 Est. GFR calculation based on the MDRDstudy equation, which assumes a steadystate for creatinine. Est. GFR should notbe used for medication dosing. ID Date Data Source [id number] 07/07/2020 06:27:20 AM EDT [facility] Name Value Range Interpretation Code Description Data Naa rce(s) Supporting Document(s) WBC 10.6 10*3/uL (4.1-11.0) [facility] RBC 2.72 10*6/uL (4.00-5.40) L [facility] HGB 7.4 g/dL (12.0-16.0) L [facility] HCT 23.0 % (36.0-47.0) L [facility] MCV 84.5 fL (80.0-95.0) [facility] MCH 27.3 pg (27.0-32.0) [facility] MCHC 32.3 g/dL (32.0-36.0) Lab Yohan Y RDW 13.9 % (10.5-14.5) Lab Yohan Y PLT 220 10*3/uL (150-450) Lab Yohan Castro MPV 10.3 fL (7.1-10.7) Lab Yessy ID Date Data Source [id number] 07/06/2020 10:42:04 PM EDT Vera Krishnamurthy Name Value Range Interpretation Code Description Data Naa rce(s) Supporting Document(s) POC GLUCOSE 217 mg/dL (70-99) H Lab Yohan Castro PERFORMED BY CLINICAL STAFF ID Date Data Source [id number] 07/07/2020 09:16:00 AM EDT [facility] DATE OF [facility]AM: [facility]2020[facility] LUMBAR SPINE WITHOUT CONTRAST INDICATION: [...] arthropathy. D7End of diagnostic report for accession: [id number] Interpreted: Rex Hernández MDTranscribed: 07/07/2020 09:11 AMSigned: 07/07/2020 09:16 AM Rex Hernández MD [facility] ACC # [id number] BILL # [id number] Name Value Range Interpretation Code Description Data Naa rce(s) Supporting Document(s) ID Date Data Source [id number] 07/07/2020 09:11:00 AM EDT [facility] DATE OF EXAM: 07/06/2020[facility] MRI THORACIC SPINE WITHOUT CONTRAST CLINICAL [...] days. D7End of diagnostic report for accession: [id number] Interpreted: Rex Hernández MDTranscribed: 07/07/2020 09:02 AMSigned: 07/07/2020 09:11 AM Rex Hernández MD [facility] ACC # [id number] BILL # [id number] Name Value Range Interpretation Code Description Data Naa rce(s) Supporting Document(s) ID Date Data Source [id number] 07/07/2020 09:02:00 AM EDT [facility] DATE OF EXAM: 07/06/2020[facility] MRI CERVICAL SPINE WITHOUT CONTRAST CLINICAL [...] sac. D7End of diagnostic report for accession: [id number] Interpreted: Rex Hernández MDTranscribed: 07/07/2020 08:55 AMSigned: 07/07/2020 09:02 AM Rex Hernández MD [facility] ACC # [id number] BILL # [id number] Name Value Range Interpretation Code Description Data Naa rce(s) Supporting Document(s) ID Date Data Source [id number] 07/06/2020 09:30:39 PM EDT Vera Romero [facility] Name Value Range Interpretation Code Description Data Naa rce(s) Supporting Document(s) POC GLUCOSE 215 mg/dL (70-99) H [facility] PERFORMED BY CLINICAL STAFF ID Date Data Source [id number] 07/06/2020 06:45:24 PM EDT [facility] Name Value Range Interpretation Code Description Data Naa rce(s) Supporting Document(s) POC GLUCOSE 187 mg/dL (70-99) H [facility] NOTIFIED NURSEPERFORMED BY CLINICAL S TAFF ID Date Data Source [id number] 07/06/2020 03:17:15 PM EDT [facility] Name Value Range Interpretation Code Description Data Naa rce(s) Supporting Document(s) POC GLUCOSE 170 mg/dL (70-99) H [facility] NOTIFIED NURSEPERFORMED BY CLINICAL S TAFF ID Date Data Source [id number] 07/06/2020 02:00:13 PM EDT [facility] Name Value Range Interpretation Code Description Data Naa rce(s) Supporting Document(s) POC GLUCOSE 187 mg/dL (70-99) H [facility] PERFORMED BY CLINICAL STAFF ID Date Data Source [id number] 07/06/2020 09:40:37 AM EDT [facility] Name Value Range Interpretation Code Description Data Naa rce(s) Supporting Document(s) POC GLUCOSE 170 mg/dL (70-99) H [facility] PERFORMED BY CLINICAL STAFF ID Date Data Source [id number] 07/06/2020 08:43:52 AM EDT [facility] Name Value Range Interpretation Code Description Data Naa rce(s) Supporting Document(s) POC GLUCOSE 176 mg/dL (70-99) H [facility] PERFORMED BY CLINICAL STAFF ID Date Data Source [id number] 07/06/2020 08:38:35 AM EDT [facility] Name Value Range Interpretation Code Description Data Naa rce(s) Supporting Document(s) VANCOMYCIN RANDOM 8.0 ug/mL [facility] THERAPEUTIC RANGE IS ONLY AVAILABLE FOR PEAK AND TROUGH SPECIMENS. RANDOM LEVEL RESULTS MUST BE INTERPRETED BY THE PHYSICIAN. ID Date Data Source [id number] 07/06/2020 08:38:20 AM EDT [facility] Name Value Range Interpretation Code Description Data Naa rce(s) Supporting Document(s) ESR 114 mm/h (0-30) H [facility] ID Date Data Source [id number] 07/06/2020 07:33:29 AM EDT [facility] Name Value Range Interpretation Code Description Data Naa rce(s) Supporting Document(s) C REACTIVE PROTEIN @ 11.2 mg/dL (0.0-0.5) H Lab [place] [facility] PERFORMED AT [address] [facility] [id number] ID Date Data Source [id number] 07/06/2020 07:33:29 AM EDT [facility] Name Value Range Interpretation Code Description Data Naa rce(s) Supporting Document(s) SODIUM 143 mmol/L (136-145) [facility] POTASSIUM 4.9 mmol/L (3.6-5.2) [facility] CHLORIDE 117 mmol/L (100-108) H [facility] CO2 19 mmol/L (22-31) L [facility] ANION GAP 7 mmol/L (7-16) [facility] UREA NITROGEN 71 mg/dL (7-24) H [facility] CREATININE 3.47 mg/dL (0.60-1.00) H [facility] BUN/CREAT RATIO 20.5 RATIO (10.0-20.0) H [facility] GLUCOSE 193 mg/dL (70-99) H [facility] CALCIUM 7.6 mg/dL (8.4-10.2) L [facility] GFR 13 ml/min/1.73m2 (>59) L [facility] GFR ([facility]) 16 ml/min/1.73m2 (>59) L [facility] GFR INTERPRETATION [facility] --NORMAL KIDNEY FUNCTION OR MILD DISEASE - GFR >OR= 60CHRONIC KIDNEY DISEASE - GFR 15 - 59RENAL FAILURE - GFR <15 Est. GFR calculation based on the MDRDstudy equation, which assumes a steadystate for creatinine. Est. GFR should notbe used for medication dosing. ID Date Data Source [id number] 07/06/2020 07:20:12 AM EDT [facility] [place] Name Value Range Interpretation Code Description Data Naa rce(s) Supporting Document(s) HEMOGLOBIN A1C @ 10.5 % (4.0-6.0) H [facility] [place] Performed using [employer] [place] immunoassa y.Care must be taken when interpreting [id number] in patients with a hemoglobin variantor decreased erythrocyte lifespan. Values 5.7 - 6.4% suggest prediabetes.Values >=6.5% are diagnostic for diabetes.REFERENCE: DIABETES CARE 2018: 41(S13-S27).PERFORMED AT [address] [place] [address] EST AVERAGE GLUCOSE 255 mg/dL [facility] [place] ID Date Data Source [id number] 07/06/2020 06:59:36 AM EDT [facility] [place] Name Value Range Interpretation Code Description Data Naa rce(s) Supporting Document(s) WBC 13.2 10*3/uL (4.1-11.0) H [facility] RBC 2.85 10*6/uL (4.00-5.40) L [facility] HGB 7.5 g/dL (12.0-16.0) L [facility] HCT 23.6 % (36.0-47.0) L [facility] MCV 82.7 fL (80.0-95.0) [facility] MCH 26.2 pg (27.0-32.0) L [facility] MCHC 31.7 g/dL (32.0-36.0) L [facility] RDW 14.0 % (10.5-14.5) [facility] PLT 250 10*3/uL (150-450) [facility] MPV 10.1 fL (7.1-10.7) [facility] [place] ID Date Data Source [id number] 07/05/2020 10:34:01 PM EDT [facility] [place] Name Value Range Interpretation Code Description Data Naa rce(s) Supporting Document(s) POC GLUCOSE 233 mg/dL (70-99) H [facility] NOTIFIED NURSEPERFORMED BY CLINICAL S TAFF ID Date Data Source [id number] 07/05/2020 10:11:00 PM EDT [facility] [place] Name Value Range Interpretation Code Description Data Naa rce(s) Supporting Document(s) SARS coronavirus 2 RNA [Presence] in Res piratory specimen by JOHN with probe detection [facility] [place] This lab was reported by [facility]. ID Date Data Source [id number] 07/06/2020 02:38:53 AM EDT [facility] [place] Name Value Range Interpretation Code Description Data Naa rce(s) Supporting Document(s) SPECIMEN DESCRIPTION [facility] [place] COVID19 RESULT (NDET) Lab Veteran tobin FORD THIS ASSAY AMPLIFIES AND DETECTSTHE TARG ET RNA USING REAL-TIME PCR.NEGATIVE 2019_NCOV RT-PCR RESULTS DONOT PRECLUDE 2019_NCOV INFECTION ANDSHOULD NOT BE USED THE SOLE BASISFOR PATIENT MANAGEMENT DECISIONS. COMMENT [facility] [place] UNDER AN EMERGENCY USE AUTHORIZATION(EUA ) FOR THE DETECTION AND/OR DIAGNOSISOF THE VIRUS THAT CAUSES COVID-19.EMAILED RESULT TO IC AT 0231 ON [id number]. [id number] FIRST TEST [facility] [place] EMPL[employer]ED IN HLTHC[employer] [facility] [place] SYMPTOMATIC [facility] [place] Castro DATE OF SYMPT ONSET [facility] HOSPITALIZED Lab Veteran of [facility] ICU [facility] [place] CONGREGATE CARE SET [facility] [place] [facility] [place] ID Date Data Source [id number] 07/05/2020 08:37:51 PM EDT [facility] [place] Name Value Range Interpretation Code Description Data Naa rce(s) Supporting Document(s) SODIUM 142 mmol/L (136-145) [facility] [place] POTASSIUM 5.2 mmol/L (3.6-5.2) [facility] [place] CHLORIDE 114 mmol/L (100-108) H [facility] [place] CO2 21 mmol/L (22-31) L [facility] [place] ANION GAP 7 mmol/L (7-16) [facility] [place] UREA NITROGEN 74 mg/dL (7-24) H [facility] CREATININE 3.74 mg/dL (0.60-1.00) H [facility] [place] BUN/CREAT RATIO 19.8 RATIO (10.0-20.0) [facility] GLUCOSE 199 mg/dL (70-99) H [facility] CALCIUM 7.8 mg/dL (8.4-10.2) L [facility] GFR 12 ml/min/1.73m2 (>59) L [facility] GFR ( AMER) 15 ml/min/1.73m2 (>59) L [facility] GFR INTERPRETATION [facility] --NORMAL KIDNEY FUNCTION OR MILD DISEASE - GFR >OR= 60CHRONIC KIDNEY DISEASE - GFR 15 - 59RENAL FAILURE - GFR <15 Est. GFR calculation based on the MDRDstudy equation, which assumes a steadystate for creatinine. Est. GFR should notbe used for medication dosing. ID Date Data Source [id number] 07/05/2020 08:08:42 PM EDT [facility] [place] Name Value Range Interpretation Code Description Data Naa rce(s) Supporting Document(s) WBC 11.9 10*3/uL (4.1-11.0) H [facility] RBC 2.92 10*6/uL (4.00-5.40) L [facility] HGB 7.8 g/dL (12.0-16.0) L [facility] HCT 24.5 % (36.0-47.0) L [facility] MCV 83.8 fL (80.0-95.0) [facility] MCH 26.7 pg (27.0-32.0) L [facility] MCHC 31.8 g/dL (32.0-36.0) L [facility] RDW 13.8 % (10.5-14.5) [facility] PLT 219 10*3/uL (150-450) [facility] MPV 10.2 fL (7.1-10.7) [facility] ID Date Data Source [id number] 07/05/2020 08:00:23 PM EDT [facility] [place] Name Value Range Interpretation Code Description Data Naa rce(s) Supporting Document(s) POC GLUCOSE 184 mg/dL (70-99) H [facility] Marielena Castro NOTIFIED NURSEPERFORMED BY CH CLINICAL S TAFF Procedure Social History Code Duration Value Status Description Data Source(s ) Smoking 06/09/2021 12:00:00 AM EDT Former Smoker completed Former Smoker [facility]) Smoking 06/09/2021 12:00:00 AM EDT Former Smoker completed Former Smoker [facility] ([facility]) Smoking 06/09/2021 12:00:00 AM EDT Former Smoker completed Former Smoker [email or web address] ([facility]) Smoking 05/31/2021 12:00:00 AM EDT Former Smoker completed Former Smoker [email or web address] ([facility]) Smoking 05/18/2021 12:00:00 AM EDT - 10/01/2007 12:00:00 AM EST Patient is a former smoker completed Patient is a former smoker [facility] ([facility] ) Smoking 04/15/2021 12:00:00 AM EDT Former Smoker completed Former Smoker [email or web address] ([facility]) Smoking 04/15/2021 12:00:00 AM EDT Former Smoker completed Former Smoker [email or web address] ([facility]) Smoking 04/15/2021 12:00:00 AM EDT Former Smoker completed Former Smoker [email or web address] ([facility]) Smoking 03/07/2021 12:00:00 AM EDT Former Smoker completed Former Smoker [facility] Smoking 03/07/2021 12:00:00 AM EDT Former Smoker completed Former Smoker eCW1 ([facility]) Smoking 03/07/2021 12:00:00 AM EDT Former Smoker completed Former Smoker eCW1 ([facility]) Smoking 03/07/2021 12:00:00 AM EDT Former Smoker completed Former Smoker eCW1 ([facility]) Smoking 03/07/2021 12:00:00 AM EDT Former Smoker completed Former Smoker eCW1 ([facility]) Smoking 02/14/2021 12:00:00 AM EDT Former Smoker completed Former Smoker eCW1 ([facility]) Smoking 02/14/2021 12:00:00 AM EDT Former Smoker completed Former Smoker eCW1 ([facility]) Smoking 02/14/2021 12:00:00 AM EDT Former Smoker completed Former Smoker eCW1 ([facility]) Smoking 02/14/2021 12:00:00 AM EDT Former Smoker completed Former Smoker eCW1 ([facility]) Smoking 01/03/2021 12:00:00 AM EDT Former Smoker completed Former Smoker eCW1 ([facility]) Smoking 01/03/2021 12:00:00 AM EDT Former Smoker completed Former Smoker eCW1 ([facility]) Smoking 01/03/2021 12:00:00 AM EDT Former Smoker completed Former Smoker eCW1 ([facility]) Smoking 01/03/2021 12:00:00 AM EDT Former Smoker completed Former Smoker eCW1 ([facility]) Smoking 01/03/2021 12:00:00 AM EDT Former Smoker completed Former Smoker eCW1 ([facility]) Smoking 01/03/2021 12:00:00 AM EDT Former Smoker completed Former Smoker eCW1 ([facility]) Smoking 01/03/2021 12:00:00 AM EDT Former Smoker completed Former Smoker eCW1 ([facility]) Smoking 12/27/2020 12:00:00 AM EDT Former Smoker completed Former Smoker eCW1 ([facility]) Smoking 12/27/2020 12:00:00 AM EDT Former Smoker completed Former Smoker eCW1 ([facility]) Smoking 12/15/2020 12:00:00 AM EDT Former Smoker completed Former Smoker eCW1 ([facility]) Smoking 12/15/2020 12:00:00 AM EDT Former Smoker completed Former Smoker eCW1 ([facility]) Smoking 12/15/2020 12:00:00 AM EDT Former Smoker completed Former Smoker eCW1 ([facility]) Smoking 12/02/2020 12:00:00 AM EST Former Smoker completed Former Smoker eCW1 ([facility]) Smoking 12/02/2020 12:00:00 AM EST Former Smoker completed Former Smoker eCW1 ([facility]) Smoking 12/02/2020 12:00:00 AM EST Former Smoker completed Former Smoker eCW1 ([facility]) Smoking 12/02/2020 12:00:00 AM EST Former Smoker completed Former Smoker eCW1 ([facility]) Smoking 12/02/2020 12:00:00 AM EST Former Smoker completed Former Smoker eCW1 ([facility]) Smoking 11/26/2020 12:00:00 AM EST Former Smoker completed Former Smoker eCW1 ([facility]) Smoking 11/22/2020 12:00:00 AM EST Former Smoker completed Former Smoker eCW1 ([facility]) Smoking 11/22/2020 12:00:00 AM EST Former Smoker completed Former Smoker eCW1 ([facility]) Smoking 11/04/2020 12:00:00 AM EST Former Smoker completed Former Smoker eCW1 ([facility]) Smoking 10/13/2020 12:00:00 AM EST Former Smoker completed Former Smoker eCW1 ([facility]) Smoking 10/13/2020 12:00:00 AM EST Former Smoker completed Former Smoker eCW1 ([facility]) Smoking 09/03/2020 12:00:00 AM EST Former Smoker completed Former Smoker eCW1 ([facility]) Smoking 09/03/2020 12:00:00 AM EST Former Smoker completed Former Smoker eCW1 ([facility]) Smoking 09/03/2020 12:00:00 AM EST Former Smoker completed Former Smoker eCW1 ([facility]) Smoking 09/03/2020 12:00:00 AM EST Former Smoker completed Former Smoker eCW1 ([facility]) Smoking 07/22/2020 12:00:00 AM EDT Former Smoker completed Former Smoker eCW1 ([facility]) Smoking 07/22/2020 12:00:00 AM EDT Former Smoker completed Former Smoker eCW1 ([facility]) Smoking 07/22/2020 12:00:00 AM EDT Former Smoker completed Former Smoker eCW1 ([facility]) Smoking 07/22/2020 12:00:00 AM EDT Former Smoker completed Former Smoker eCW1 ([facility]) Smoking 07/22/2020 12:00:00 AM EDT Former Smoker completed Former Smoker eCW1 ([facility]) Smoking 07/06/2020 11:06:00 AM EDT Former Smoker completed Former Smoker [facility] Vital Signs ID Date Data Source UNK Name Value Range Interpretation Code Description Data Source(s) Respiratory rate 12 /min 12 /min [facility] ( [facility]) Body weight 211.00 [lb_av] 211.00 [lb_av] MEDEN T ([facility]) Body mass index (BMI) [Ratio] 42.6 kg/m2 42.6 k g/m2 [facility] ([facility]) Body height 59 [in_i] 59 [in_i] [facility] ([facility]) 4'11" [place] body weight 100 [lb_av] 100 [lb_av] MEDEN T ([facility]) Heart rate 69 /min 69 /min [facility] ([facility]) Body temperature 97.9 [degF] 97.9 [degF] [facility] ([facility]) Body weight 210.25 [lb_av] 210.25 [lb_av] MEDEN T ([facility]) Body height 59 [in_i] 59 [in_i] [facility] ([facility]) 4'11" Body mass index (BMI) [Ratio] 42.5 kg/m2 42.5 k g/m2 [facility] ([facility]) Body weight 95.369 kg 95.369 kg [facility] ([facility]) [place] body weight 100 [lb_av] 100 [lb_av] MEDEN T ([facility]) Body surface area Derived from formula 1.88 m2 1.88 m2 [facility] ([facility]) Systolic blood pressure 186 mm[Hg] 186 mm[Hg] M [facility] ([facility]) left 173/79 Diastolic blood pressure 69 mm[Hg] 69 mm[Hg] [facility]ENT ([facility]) left 173/79 Body mass index (BMI) [Ratio] 42.5 kg/m2 42.5 k g/m2 [facility] ([facility]) Body weight 210.25 [lb_av] 210.25 [lb_av] MEDEN T ([facility]) [place] body weight 100 [lb_av] 100 [lb_av] MEDEN T ([facility]) Body surface area Derived from formula 1.88 m2 1.88 m2 [facility] ([facility]) Systolic blood pressure 166 mm[Hg] 166 mm[Hg] M EDENT ([facility]) Diastolic blood pressure 80 mm[Hg] 80 mm[Hg] [facility] ([facility]) Body temperature 98.6 [degF] 98.6 [degF] [facility] ([facility]) Body height 59 [in_i] 59 [in_i] [facility] ([facility]) 4'11" Body weight 95.369 kg 95.369 kg [facility] ([facility]) Body temperature 97.1 [degF] 97.1 [degF] W1 ( [facility]) Heart rate 73 /min 73 /min eCW1 ([facility]) Systolic blood pressure 138 mm[Hg] 138 mm[Hg] e CW1 ([facility]) Respiratory rate 19 /min 19 /min eCW1 ([facility]) Diastolic blood pressure 86 mm[Hg] 86 mm[Hg] eCW1 ([facility]) Body weight 95.71 kg 95.71 kg eCW1 ([facility]) Body weight 211 [lb_av] 211 [lb_av] eCW1 ([facility]) Body height 60 [in_i] 60 [in_i] eCW1 ([facility]) Body mass index (BMI) [Ratio] 41.20 kg/m2 41.20 kg/m2 eCW1 ([facility]) Body weight 211 [lb_av] 211 [lb_av] eCW1 ([facility]) Body height 60 [in_i] 60 [in_i] eCW1 ([facility]) Body mass index (BMI) [Ratio] 41.20 kg/m2 41.20 kg/m2 eCW1 ([facility]) Heart rate 95 /min 95 /min eCW1 ([facility]) Respiratory rate 20 /min 20 /min eCW1 ([facility]) Body temperature 96.5 [degF] 96.5 [degF] eCW1 ( [facility]) Systolic blood pressure 136 mm[Hg] 136 mm[Hg] e CW1 ([facility]) Diastolic blood pressure 78 mm[Hg] 78 mm[Hg] eCW1 ([facility]) Systolic blood pressure 130 mm[Hg] 130 mm[Hg] M EDDOROTEO ([facility], ) Diastolic blood pressure 80 mm[Hg] 80 mm[Hg] [facility] ([facility], ) Heart rate 72 /min 72 /min [facility] ([facility], ) Oxygen saturation in Arterial blood by Pulse oximetry 94 % 94 % [facility] ([facility], ) Body height 60 [in_i] 60 [in_i] [facility] ([facility], ) 5'0" Body weight 208.00 [lb_av] 208.00 [lb_av] MEDEN T ([facility], ) Body mass index (BMI) [Ratio] 40.6 kg/m2 40.6 k g/m2 [facility] ([facility], ) [place] body weight 100 [lb_av] 100 [lb_av] MEDEN T ([facility], ) Body weight 94.349 kg 94.349 kg [facility] ([facility], ) Body surface area Derived from formula 1.90 m2 1.90 m2 [facility] ([facility], ) Body weight 205 [lb_av] 205 [lb_av] eCW1 ([facility]) Body height 60 [in_i] 60 [in_i] eCW1 ([facility]) Body mass index (BMI) [Ratio] 40.03 kg/m2 40.03 kg/m2 eCW1 ([facility]) Heart rate 70 /min 70 /min eCW1 ([facility]) Systolic blood pressure 140 mm[Hg] 140 mm[Hg] e CW1 ([facility]) Respiratory rate 20 /min 20 /min eCW1 ([facility]) Diastolic blood pressure 70 mm[Hg] 70 mm[Hg] eCW1 ([facility]) Body temperature 97.1 [degF] 97.1 [degF] eCW1 ( [facility]) Body weight 206 [lb_av] 206 [lb_av] eCW1 ([facility]) Body height 60 [in_i] 60 [in_i] eCW1 ([facility]) Body mass index (BMI) [Ratio] 40.23 kg/m2 40.23 kg/m2 eCW1 ([facility]) Heart rate 69 /min 69 /min eCW1 ([facility]) Respiratory rate 18 /min 18 /min eCW1 ([facility]) Body temperature 96.8 [degF] 96.8 [degF] eCW1 ( [facility]) Body weight 202 [lb_av] 202 [lb_av] eCW1 ([facility]) Body height 60 [in_i] 60 [in_i] eCW1 ([facility]) Body mass index (BMI) [Ratio] 39.45 kg/m2 39.45 kg/m2 eCW1 ([facility]) Heart rate 87 /min 87 /min eCW1 ([facility]) Respiratory rate 18 /min 18 /min eCW1 ([facility]) Body temperature 96.8 [degF] 96.8 [degF] eCW1 ( [facility]) Systolic blood pressure 170 mm[Hg] 170 mm[Hg] e CW1 ([facility]) Diastolic blood pressure 100 mm[Hg] 100 mm[Hg] eCW1 ([facility]) Body weight 204 [lb_av] 204 [lb_av] eCW1 ([facility]) Body height 60 [in_i] 60 [in_i] eCW1 ([facility]) Body mass index (BMI) [Ratio] 39.84 kg/m2 39.84 kg/m2 eCW1 ([facility]) Heart rate 96 /min 96 /min eCW1 ([facility]) Respiratory rate 20 /min 20 /min eCW1 ([facility]) Systolic blood pressure 158 mm[Hg] 158 mm[Hg] e CW1 ([facility]) Diastolic blood pressure 78 mm[Hg] 78 mm[Hg] eCW1 ([facility]) Body weight 204 [lb_av] 204 [lb_av] eCW1 ([facility]) Body height 60 [in_i] 60 [in_i] eCW1 ([facility]) Body mass index (BMI) [Ratio] 39.84 kg/m2 39.84 kg/m2 eCW1 ([facility]) Heart rate 91 /min 91 /min eCW1 ([facility]) Respiratory rate 20 /min 20 /min eCW1 ([facility]) Body temperature 96.2 [degF] 96.2 [degF] eCW1 ( [facility]) Systolic blood pressure 140 mm[Hg] 140 mm[Hg] e CW1 ([facility]) Diastolic blood pressure 80 mm[Hg] 80 mm[Hg] eCW1 ([facility]) Body weight 200 [lb_av] 200 [lb_av] eCW1 ([facility]) Body height 60 [in_i] 60 [in_i] eCW1 ([facility]) Body mass index (BMI) [Ratio] 39.06 kg/m2 39.06 kg/m2 eCW1 ([facility]) Heart rate 76 /min 76 /min eCW1 ([facility]) Respiratory rate 20 /min 20 /min eCW1 ([facility]) Body temperature 97.6 [degF] 97.6 [degF] eCW1 ( [facility]) Systolic blood pressure 185 mm[Hg] 185 mm[Hg] e CW1 ([facility]) Diastolic blood pressure 84 mm[Hg] 84 mm[Hg] eCW1 ([facility]) Body weight 201 [lb_av] 201 [lb_av] eCW1 ([facility]) Body height 60 [in_i] 60 [in_i] eCW1 ([facility]) Body mass index (BMI) [Ratio] 39.25 kg/m2 39.25 kg/m2 eCW1 ([facility]) Heart rate 80 /min 80 /min eCW1 ([facility]) Respiratory rate 18 /min 18 /min eCW1 ([facility]) Body temperature 97.1 [degF] 97.1 [degF] eCW1 ( [facility]) Systolic blood pressure 148 mm[Hg] 148 mm[Hg] e CW1 ([facility]) Diastolic blood pressure 90 mm[Hg] 90 mm[Hg] eCW1 ([facility]) Body weight 203 [lb_av] 203 [lb_av] eCW1 ([facility]) Body height 60 [in_i] 60 [in_i] eCW1 ([facility]) Body mass index (BMI) [Ratio] 39.64 kg/m2 39.64 kg/m2 eCW1 ([facility]) Heart rate 77 /min 77 /min eCW1 ([facility]) Respiratory rate 18 /min 18 /min eCW1 ([facility]) Body temperature 98 [degF] 98 [degF] eCW1 ([facility]) Systolic blood pressure 142 mm[Hg] 142 mm[Hg] e CW1 ([facility]) Diastolic blood pressure 84 mm[Hg] 84 mm[Hg] eCW1 ([facility]) Body weight 203.6 [lb_av] 203.6 [lb_av] eCW1 ([facility]) Body height 60 [in_i] 60 [in_i] eCW1 ([facility]) Body mass index (BMI) [Ratio] 39.76 kg/m2 39.76 kg/m2 eCW1 ([facility]) Body weight 203 [lb_av] 203 [lb_av] eCW1 ([facility]) Body height 60 [in_i] 60 [in_i] eCW1 ([facility]) Body mass index (BMI) [Ratio] 39.64 kg/m2 39.64 kg/m2 eCW1 ([facility]) Heart rate 74 /min 74 /min eCW1 ([facility]) Respiratory rate 18 /min 18 /min eCW1 ([facility]) Body temperature 97.5 [degF] 97.5 [degF] eCW1 ( [facility]) Systolic blood pressure 140 mm[Hg] 140 mm[Hg] e CW1 ([facility]) Diastolic blood pressure 78 mm[Hg] 78 mm[Hg] eCW1 ([facility]) Body weight 199 [lb_av] 199 [lb_av] eCW1 ([facility]) Body height 60 [in_i] 60 [in_i] eCW1 ([facility]) Body mass index (BMI) [Ratio] 38.86 kg/m2 38.86 kg/m2 eCW1 ([facility]) Heart rate 82 /min 82 /min eCW1 ([facility]) Respiratory rate 20 /min 20 /min eCW1 ([facility]) Body temperature 98.6 [degF] 98.6 [degF] eCW1 ( [facility]) Systolic blood pressure 134 mm[Hg] 134 mm[Hg] e CW1 ([facility]) Diastolic blood pressure 80 mm[Hg] 80 mm[Hg] eCW1 ([facility]) Body weight 195 [lb_av] 195 [lb_av] eCW1 ([facility]) Body height 60 [in_i] 60 [in_i] eCW1 ([facility]) Body mass index (BMI) [Ratio] 38.08 kg/m2 38.08 kg/m2 eCW1 ([facility]) Heart rate 79 /min 79 /min eCW1 ([facility]) Respiratory rate 18 /min 18 /min eCW1 ([facility]) Body temperature 96.8 [degF] 96.8 [degF] eCW1 ( [facility]) Systolic blood pressure 122 mm[Hg] 122 mm[Hg] e CW1 ([facility]) Diastolic blood pressure 74 mm[Hg] 74 mm[Hg] eCW1 ([facility]) Body mass index (BMI) [Ratio] 39.25 kg/m2 39.25 kg/m2 eCW1 ([facility]) Body weight 201 [lb_av] 201 [lb_av] eCW1 ([facility]) Body height 60 [in_i] 60 [in_i] eCW1 ([facility]) Heart rate 74 /min 74 /min eCW1 ([facility]) Respiratory rate 20 /min 20 /min eCW1 ([facility]) Body temperature 97.3 [degF] 97.3 [degF] eCW1 ( [facility]) Systolic blood pressure 122 mm[Hg] 122 mm[Hg] e CW1 ([facility]) Diastolic blood pressure 68 mm[Hg] 68 mm[Hg] eCW1 ([facility]) Body weight 197 [lb_av] 197 [lb_av] eCW1 ([facility]) Body height 60 [in_i] 60 [in_i] eCW1 ([facility]) Body mass index (BMI) [Ratio] 38.47 kg/m2 38.47 kg/m2 eCW1 ([facility]) Heart rate 77 /min 77 /min eCW1 ([facility]) Respiratory rate 20 /min 20 /min eCW1 ([facility]) Body temperature 97 [degF] 97 [degF] eCW1 ([facility]) Systolic blood pressure 120 mm[Hg] 120 mm[Hg] e CW1 ([facility]) Diastolic blood pressure 70 mm[Hg] 70 mm[Hg] eCW1 ([facility]) Body mass index (BMI) [Ratio] 40.0 kg/m2 40.0 k g/m2 [facility] ([facility]) Body height 59 [in_i] 59 [in_i] [facility] ([facility]) 4'11" [place] body weight 100 [lb_av] 100 [lb_av] MEDEN T ([facility]) Respiratory rate 12 /min 12 /min [facility] ( [facility]) Body weight 198.00 [lb_av] 198.00 [lb_av] MEDEN T ([facility]) Body height 60 [in_i] 60 [in_i] [facility] ([facility]) 5'0" Body temperature 97.9 [degF] 97.9 [degF] [facility] ([facility]) Body mass index (BMI) [Ratio] 39.4 kg/m2 39.4 k g/m2 [facility] ([facility]) [place] body weight 100 [lb_av] 100 [lb_av] MEDEN T ([facility]) Body weight 91.627 kg 91.627 kg [facility] ([facility]) Body surface area Derived from formula 1.87 m2 1.87 m2 [facility] ([facility]) Body weight 202.00 [lb_av] 202.00 [lb_av] MEDEN T ([facility]) Systolic blood pressure 122 mm[Hg] 122 mm[Hg] M EDENT ([facility]) Diastolic blood pressure 82 mm[Hg] 82 mm[Hg] [facility] ([facility]) Heart rate 69 /min 69 /min [facility] ([facility]) Oxygen saturation in Arterial blood by Pulse oximetry 94 % 94 % [facility] ([facility]) Body weight 204 [lb_av] 204 [lb_av] eCW1 ([facility]) Body height 60 [in_i] 60 [in_i] eCW1 ([facility]) Body mass index (BMI) [Ratio] 39.84 kg/m2 39.84 kg/m2 eCW1 ([facility]) Heart rate 86 /min 86 /min eCW1 ([facility]) Respiratory rate 20 /min 20 /min eCW1 ([facility]) Body temperature 96.7 [degF] 96.7 [degF] eCW1 ( [facility]) Systolic blood pressure 142 mm[Hg] 142 mm[Hg] e CW1 ([facility]) Diastolic blood pressure 80 mm[Hg] 80 mm[Hg] eCW1 ([facility]) Oxygen saturation in Arterial blood by Pulse oximetry 962 % 962 % [facility] ([facility], ) Body height 60 [in_i] 60 [in_i] MEDENT ([facility]) 5'0" Body weight 212.00 [lb_av] 212.00 [lb_av] MEDEN T ([facility]) pt states Body mass index (BMI) [Ratio] 41.4 kg/m2 41.4 k g/m2 [facility] ([facility]) [place] body weight 100 [lb_av] 100 [lb_av] MEDEN T ([facility]) Body weight 96.163 kg 96.163 kg [facility] ([facility]) Systolic blood pressure 130 mm[Hg] 130 mm[Hg] M EDENT ([facility], ) Diastolic blood pressure 80 mm[Hg] 80 mm[Hg] [facility] ([facility]) [facility] 77 /min 77 /[facility] Oxygen saturation in Arterial blood by [facility]ulse oximetry 962 % 962 % [facility] ([facility]) Body height 60 [in_i] 60 [in_i] [facility] Body weight 212.00 [lb_av] 212.00 [lb_av] MEDEN T ([facility]) pt states Body mass index (BMI) [Ratio] 41.4 kg/m2 41.4 k g/m2 [facility] ([facility]) [place] body weight 100 [lb_av] 100 [lb_av] MEDEN T ([facility]) Body weight 96.163 kg 96.163 kg [facility] ([facility]) Body surface area Derived from formula 1.91 m2 1.91 m2 [facility] ([facility]) Body weight 215 [lb_av] 215 [lb_av] eCW1 ([facility]) Body height 60 [in_i] 60 [in_i] eCW1 ([facility]) Body mass index (BMI) [Ratio] 41.98 kg/m2 41.98 kg/m2 W1 ([facility]) Heart rate 91 /min 91 /min W1 ([facility]) Respiratory rate 20 /min 20 /min W1 ([facility]) Body temperature 97.1 [degF] 97.1 [degF] eCW1 ( [facility]) Systolic blood pressure 142 mm[Hg] 142 mm[Hg] e CW1 ([facility]) Diastolic blood pressure 84 mm[Hg] 84 mm[Hg] eCW1 ([facility]) Deprecated Oxygen saturation in Capillary blood by Oximetry 98 % Normal (applies to non-numeric results) 98 % [facility] Systolic blood pressure 163 mm[Hg] Normal (applies t o non-numeric results) 163 mm[Hg] [facility] Diastolic blood pressure 85 mm[Hg] Normal (applies to non-numeric results) 85 mm[Hg] [facility] Heart rate 86 min Normal (applies to non-numeric resul ts) 86 min [facility] Respiratory rate 18 min Normal (applies to non-numeric results) 18 min [facility] Body temperature 37.1 josue Normal (applies to non-numeric results) 37.1 josue [facility] Body height 148.7424 cm Normal (applies to non-numeric res ults) 148.7424 cm [facility] Body mass index (BMI) [Ratio] 40.39 kg/m2 No rmal (applies to non-numeric results) 40.39 kg/m2 [facility] Body weight Measured 90.718 kg Normal (applies to n on-numeric results) 90.718 kg [facility] ID Date Data Source [id number] 07/06/2020 09:56:36 AM EDT [facility] Name Value Range Interpretation Code Description Data Source(s) TRANSFER FROM [facility] Patient Treatment Plan of Care Planned Activity Planned Date Details Description Data Source (s) Lancets - 04/15/2021 12:00:00 AM EDT e CW1 ([facility]) Erythromycin 0.005 MG/MG Ophthalmic Ointment 04/15/2021 12:00:00 AM EDT eCW1 ([facility]) Lancets - 04/15/2021 12:00:00 AM EDT e CW1 ([facility]) Erythromycin 0.005 MG/MG Ophthalmic Ointment 04/15/2021 12:00:00 AM EDT eCW1 ([facility]) Lancets - 04/15/2021 12:00:00 AM EDT e CW1 ([facility]) Erythromycin 0.005 MG/MG Ophthalmic Ointment 04/15/2021 12:00:00 AM EDT eCW1 ([facility]) pantoprazole 20 MG Delayed Release Oral Tablet 10/13/2020 12:00:00 AM EST eCW1 ([facility]) [employer] - 10/13/2020 12:00:00 AM EST eCW1 ([facility]) [employer] Margie Morris - 10/13/2020 12:00:00 AM EST eCW1 ([facility]) [employer] Margie Morris - 10/13/2020 12:00:00 AM EST eCW1 ([facility]) [employer] Margie Morris - 10/13/2020 12:00:00 AM EST eCW1 ([facility]) [employer] - 10/13/2020 12:00:00 AM EST eCW1 ([facility]) [employer] Margie Morris - 10/13/2020 12:00:00 AM EST eCW1 ([facility]) [employer] - 10/13/2020 12:00:00 AM EST eCW1 ([facility]) [employer] Margie Morris - 10/13/2020 12:00:00 AM EST eCW1 ([facility]) [employer] - 10/13/2020 12:00:00 AM EST eCW1 ([facility]) [employer] Margie Morris - 10/13/2020 12:00:00 AM EST eCW1 ([facility]) [employer] - 10/13/2020 12:00:00 AM EST eCW1 ([facility]) pantoprazole 20 MG Delayed Release Oral Tablet 10/13/2020 12:00:00 AM EST eCW1 ([facility]) [employer] - 10/13/2020 12:00:00 AM EST eCW1 ([facility]) Cyclobenzaprine hydrochloride 5 MG Oral Tablet 07/22/2020 12:00:00 AM EDT eCW1 ([facility]) Sertraline 25 MG Oral Tablet 07/22/2020 12:00:00 AM EDT eCW1 ([facility]) Sertraline 25 MG Oral Tablet 07/22/2020 12:00:00 AM EDT eCW1 ([facility]) Cyclobenzaprine hydrochloride 5 MG Oral Tablet 07/22/2020 12:00:00 AM EDT eCW1 ([facility]) Sertraline 25 MG Oral Tablet 07/22/2020 12:00:00 AM EDT eCW1 ([facility]) Cyclobenzaprine hydrochloride 5 MG Oral Tablet 07/22/2020 12:00:00 AM EDT eCW1 ([facility]) Sertraline 25 MG Oral Tablet 07/22/2020 12:00:00 AM EDT eCW1 ([facility]) Cyclobenzaprine hydrochloride 5 MG Oral Tablet 07/22/2020 12:00:00 AM EDT eCW1 ([facility]) Sertraline 25 MG Oral Tablet 07/22/2020 12:00:00 AM EDT eCW1 ([facility]) Cyclobenzaprine hydrochloride 5 MG Oral Tablet 07/22/2020 12:00:00 AM EDT eCW1 ([facility])
--- NOTE | 2021-07-13 14:12 | REP ---
INDICATION: lower leg swelling; RLE pain; r/o DVT COMPARISON: None. TECHNIQUE: Mortensen scale and color Doppler evaluation using linear high frequency transducer. FINDINGS: Ultrasound examination of the right and left lower extremity deep venous structures from the common femoral vein through the calf/ankle to include the peroneal, and tibial veins demonstrates normal compressibility flow and wave patterns in response to respiration and augmentation. There is no evidence for deep venous thrombosis. IMPRESSION: No evidence for deep venous thrombosis. <Electronically signed by Alden Ramon > 07/13/21 [id number]
[2021-07-13 15:34] VITALS: O2SAT 98
[2021-07-13] MEDS ORDERED: LevoFLOXacin 500 MG TABLET PO ONE (15:35)
[2021-07-13] MEDS ORDERED: LEVO250T12 PO (15:58)
[2021-07-13] MEDS ORDERED: PRED10TA2 PO (15:58)
[2021-07-13 16:01] VITALS: BP 152/67
--- NOTE | 2021-07-14 07:29 | ECGEPIP ---
[facility] - ED Test Date: 2021-07-13 Pat Name: CELI JOHNSON Department: Room: - Gender: Female [facility]: LEONELA : 1955 Requested By: Justin Lamas Order Number: [id number] Reading MD: Justin Johns Measurements Intervals [place] Rate: 75 P: 37 NH: 196 QRS: -9 QRSD: 90 T: 81 QT: 402 QTc: 448 Interpretive Statements Normal sinus rhythm Moderate voltage criteria for LVH, may be normal variant ( R in aVL , [employer]ixto product ) Possible Anterior infarct , age undetermined SIMILAR TO 03/28/21 Electronically Signed on 07-14-2021 7:29:18 EDT by Justin Johns
== END 2021-07-13 16:15 | disposition home or self-care (01) ==
LOC: M ED 10:07
DX: J44.1 Chronic obstructive pulmonary disease with (acute) exacerbation (principal); J18.9 Pneumonia, unspecified organism; I13.2 Hypertensive heart and chronic kidney disease with heart failure and with stage 5 chronic kidney disease, or end stage renal disease; I50.9 Heart failure, unspecified; E11.9 Type 2 diabetes mellitus without complications; E78.5 Hyperlipidemia, unspecified; F41.9 Anxiety disorder, unspecified; F32.9 Major depressive disorder, single episode, unspecified; Z88.0 Allergy status to penicillin; Z88.1 Allergy status to other antibiotic agents; Z79.4 Long term (current) use of insulin; Z79.899 Other long term (current) drug therapy
CPT/HCPCS: 71045; 71250; 80048; 80076; 84484; 85025; 87798; 93005; 93041; 93970; 94760; 96374; 99285; J2920

== ENCOUNTER → 2021-07-21 | Outpatient (REF) | payer MEDICARE | LOC: M LAB REF 17:04 | PROVIDERS: ATTEND Internal Medicine Nephrology | DX: E83.42 Hypomagnesemia (principal) ==

== ENCOUNTER → 2021-07-26 | Outpatient (REF) | payer MEDICARE | LOC: M SFHCWAGY 13:14 | PROVIDERS: ATTEND Family Medicine | DX: N61.1 Abscess of the breast and nipple (principal); Z23 Encounter for immunization | CPT/HCPCS: 10060; 87070; 87076; 87077; 87205; 90471; 90715; G0463 ==

== ENCOUNTER → 2021-09-06 | Outpatient (CLI) | payer MEDICARE ==
--- NOTE | 2021-09-06 14:13 | REP ---
INDICATION: CHRONIC KIDNEY DISEASE, STAGE 4 (SEVERE) COMPARISON: 07/13/2021 as well as other prior exams. TECHNIQUE: PA/Lateral FINDINGS: Lungs: There are stable bilateral fibrotic changes with no evidence of acute superimposed infiltrate. Heart: There is mild cardiomegaly. Mediastinum: There is mild calcification of the thoracic aorta. The mediastinal silhouette is unchanged. Pleural angles: Unremarkable.. Bones and soft tissues: There are mild degenerative changes of the spine. Metallic plate and screws are again seen in the cervical spine. IMPRESSION: No acute pulmonary disease. Mild cardiomegaly. Stable chronic changes. <Electronically signed by Cameron Mortensen > 09/06/21 [id number]
[2021-09-06 17:23] LABS: BASO % 0.3 % (0.0-1.0); EOS # 0.3 10^3/uL (0.0-0.5); EOS % 2.9 % (0.0-3.0); HEMOGLOBIN 8.8 g/dl (12.0-15.5); LYMPH # 0.6 10^3/uL (1.5-5.0); LYMPH % 6.3 % (24.0-44.0); MEAN CORPUSCULAR HEMOGLOBIN 26.9 pg (27.0-33.0); MEAN CORPUSCULAR HGB CONC 30.3 g/dl (32.0-36.5); MEAN CORPUSCULAR VOLUME 88.7 fl (80.0-96.0); MONO # 0.6 10^3/uL (0.0-0.8); MONO % 6.2 % (2.0-8.0); NEUTROPHILS # 7.8 10^3/uL (1.5-8.5); NEUTROPHILS % 83.6 % (36.0-66.0); PLATELET COUNT, AUTOMATED 278 10^3/uL (150-450); RED BLOOD COUNT 3.27 10^6/uL (4.00-5.40); WHITE BLOOD COUNT 9.4 10^3/uL (4.0-10.0)
[2021-09-06 17:54] LABS: ALBUMIN 3.1 GM/DL (3.2-5.2); BILIRUBIN,TOTAL 0.4 MG/DL (0.2-1.0); C REACTIVE PROTEIN QUANTITATIV 2.57 MG/DL (0.00-0.30); CALCIUM LEVEL 8.3 MG/DL (8.8-10.2); CREATININE FOR GFR 2.79 MG/DL (0.55-1.30); GLOMERULAR FILTRATION RATE 18.1 (>45); POTASSIUM SERUM 4.6 MEQ/L (3.5-5.1); TOTAL PROTEIN 6.3 GM/DL (6.4-8.2)
== END ==
LOC: M PLAIMG 12:31
PROVIDERS: ATTEND Physician Assistant Medical
DX: I51.7 Cardiomegaly (principal); N18.4 Chronic kidney disease, stage 4 (severe); D63.1 Anemia in chronic kidney disease; I50.32 Chronic diastolic (congestive) heart failure; Z87.01 Personal history of pneumonia (recurrent)

== ENCOUNTER → 2021-09-14 | Outpatient (REF) | payer MEDICARE ==
[2021-09-14 18:38] LABS: PERCENT SATURATION 12.9 % (13.2-45.0)
== END ==
LOC: M LAB REF 16:59
PROVIDERS: ATTEND Internal Medicine Nephrology
DX: N18.4 Chronic kidney disease, stage 4 (severe) (principal); D63.1 Anemia in chronic kidney disease; I50.32 Chronic diastolic (congestive) heart failure

== ENCOUNTER → 2021-10-04 | Outpatient (CLI) | payer MEDICARE ==
[2021-10-04 13:04] LABS: HEMATOCRIT 29.7 % (36.0-47.0); HEMOGLOBIN 9.2 g/dl (12.0-15.5); MEAN CORPUSCULAR HEMOGLOBIN 26.7 pg (27.0-33.0); MEAN CORPUSCULAR VOLUME 86.3 fl (80.0-96.0); PLATELET COUNT, AUTOMATED 264 10^3/uL (150-450); RED BLOOD COUNT 3.44 10^6/uL (4.00-5.40); WHITE BLOOD COUNT 8.5 10^3/uL (4.0-10.0)
[2021-10-04 13:53] LABS: ALBUMIN 3.6 GM/DL (3.2-5.2); BILIRUBIN,TOTAL 0.3 MG/DL (0.2-1.0); CALCIUM LEVEL 9.2 MG/DL (8.8-10.2); CREATININE FOR GFR 2.65 MG/DL (0.55-1.30); GLOMERULAR FILTRATION RATE 19.2 (>45); POTASSIUM SERUM 4.9 MEQ/L (3.5-5.1); TOTAL PROTEIN 6.7 GM/DL (6.4-8.2)
== END ==
LOC: M PLALAB 09:48
PROVIDERS: ATTEND Physician Assistant Medical
DX: I50.32 Chronic diastolic (congestive) heart failure (principal)

== ENCOUNTER 2021-11-23 10:31 | Inpatient (IN) | payer MEDICARE ==
[~2021-11-23] VITALS: Ht 152.4 cm; Wt 95.3 kg
[~2021-11-23 10:31] MED LIST changes: -CITA40TA4 PO; +CITA40TA7 PO; -LEVO250T12 PO; +LEVO250T3 PO; -LEVO500T3 PO; +LEVO500T4 PO; +LOSA50TA28 PO; -LOSA50TA88 PO; -MONT10TA10 PO; +MONT10TA97 PO; +POTA-151; -POTA20TA6
[2021-11-23 11:09] LABS: BASO % 0.3 % (0.0-1.0); EOS # 0.2 10^3/uL (0.0-0.5); EOS % 2.9 % (0.0-3.0); HEMATOCRIT 28.5 % (36.0-47.0); HEMOGLOBIN 8.5 g/dl (12.0-15.5); LYMPH # 0.6 10^3/uL (1.5-5.0); LYMPH % 7.2 % (24.0-44.0); MEAN CORPUSCULAR HEMOGLOBIN 26.5 pg (27.0-33.0); MEAN CORPUSCULAR HGB CONC 29.8 g/dl (32.0-36.5); MEAN CORPUSCULAR VOLUME 88.8 fl (80.0-96.0); MONO # 0.4 10^3/uL (0.0-0.8); NEUTROPHILS # 6.4 10^3/uL (1.5-8.5); NEUTROPHILS % 84.2 % (36.0-66.0); PLATELET COUNT, AUTOMATED 234 10^3/uL (150-450); RED BLOOD COUNT 3.21 10^6/uL (4.00-5.40); WHITE BLOOD COUNT 7.6 10^3/uL (4.0-10.0)
[2021-11-23 11:40] LABS: ALBUMIN 3.6 GM/DL (3.2-5.2); ALT/SGPT 27 U/L (12-78); BILIRUBIN,DIRECT < 0.1 MG/DL (0.0-0.2); BILIRUBIN,TOTAL 0.3 MG/DL (0.2-1.0); BLOOD UREA NITROGEN 63 MG/DL (7-18); CALCIUM LEVEL 8.6 MG/DL (8.8-10.2); CARBON DIOXIDE LEVEL 24 MEQ/L (21-32); CHLORIDE LEVEL 113 MEQ/L (98-107); CREATININE FOR GFR 2.61 MG/DL (0.55-1.30); GLOMERULAR FILTRATION RATE 19.5 (>45); GLUCOSE, FASTING 103 MG/DL (70-100); POTASSIUM SERUM 4.9 MEQ/L (3.5-5.1); SODIUM LEVEL 142 MEQ/L (136-145); TOTAL PROTEIN 6.8 GM/DL (6.4-8.2)
[2021-11-23 12:07] LABS: CK-MB VALUE MASS 1.9 NG/ML (<3.6); MB/CK RELATIVE INDEX 2.02 (< OR =4)
[2021-11-23] MEDS ORDERED: FUROSEMIDE 100MG/10ML VIAL (J1940) IV ONE (12:45)
[2021-11-23 15:39] VITALS: O2SAT 93
[2021-11-23 16:47] LABS: ABG BASE EXCESS -2.1 (-2.0-2.0); ABG HCO3 23.1 MEQ/L (22.0-26.0); ABG PARTIAL PRESSURE CO2 40.9 mmHg (35.0-45.0); ABG PARTIAL PRESSURE O2 145.5 mmHg (75.0-100.0); ABG STANDARD HCO3 22.7 MEQ/L (22.0-26.0); ABG TOTAL CO2 24.3 MEQ/L (23.0-31.0); ABG pH (ARTERIAL) 7.369 UNITS (7.350-7.450)
[2021-11-23] MEDS ORDERED: D31000TA2 PO (17:10)
[2021-11-23] MEDS ORDERED: BUME2TAB3 PO ×2 (17:10)
[2021-11-23] MEDS ORDERED: FERR32TA PO (17:10)
[2021-11-23] MEDS ORDERED: HOME MED LIST COMPLETE! XX SCH (17:15)
[2021-11-23] MEDS ORDERED: IPRATROPIUM 0.5MG/ALBUTEROL 2.5MG INH SOL UD 3ML (DUONEB) NEB PRN (17:15)
[2021-11-23] MEDS ORDERED: GLUCAGON INJ 1MG VIAL SC PRN (17:15)
[2021-11-23] MEDS ORDERED: GLUCOSE 4GM CHEW TABLET PO PRN (17:15)
[2021-11-23] MEDS ORDERED: DEXTROSE 50% 50 ML SYRINGE IV PRN (17:15)
[2021-11-23] MEDS ORDERED: GABAPENTIN 100 MG CAP PO PRN (17:20)
[2021-11-23 18:21] LABS: PERCENT SATURATION 7.5 % (13.2-45.0)
[2021-11-23 18:28] LABS: FOLATE 12.4 NG/ML (>5.4)
[2021-11-23] MEDS: HumaLOG INSULIN (NovoLOG) PER UNIT SC SCH ×2 (18:30→22:31)
[2021-11-23] MEDS ORDERED: BUMETANIDE 1 MG/4 ML INJ (S0171) IV SCH (20:00)
[2021-11-23] MEDS: SALMETEROL DISKUS 50MCG INHALER (SEREVENT) INH SCH (20:00)
[2021-11-23] MEDS ORDERED: FUROSEMIDE 40MG/4ML VIAL (J1940) IV SCH (21:00)
[2021-11-23 21:30] VITALS: BP 138/60
[2021-11-23] MEDS: ATORVASTATIN 20 MG TAB PO SCH (22:27)
[2021-11-23] MEDS: EZETIMIBE 10MG TABLET (ZETIA) PO SCH (22:27)
[2021-11-23] MEDS: **hydrALAZINE** 10 MG TAB PO SCH (22:28)
[2021-11-23] MEDS: HEPARIN SOD (PORCINE) 5000UNITS/ML 1ML VIAL/SYRINGE SC SCH (22:31)
[2021-11-23] MEDS: LEVEMIR (INSULIN DETEMIR) 1 UNITS/0.01ML SC SCH (22:32)
[2021-11-23] MEDS: BUMETANIDE 1 MG/4 ML INJ (S0171) IV SCH (22:59)
[2021-11-24 04:54] VITALS: BP 139/61
[2021-11-24] MEDS: BUMETANIDE 1 MG/4 ML INJ (S0171) IV SCH (04:54)
[2021-11-24] MEDS: HEPARIN SOD (PORCINE) 5000UNITS/ML 1ML VIAL/SYRINGE SC SCH ×3 (05:01→21:04)
[2021-11-24 06:22] LABS: BASO % 0.4 % (0.0-1.0); EOS # 0.3 10^3/uL (0.0-0.5); EOS % 3.6 % (0.0-3.0); HEMATOCRIT 26.2 % (36.0-47.0); HEMOGLOBIN 7.9 g/dl (12.0-15.5); LYMPH # 0.7 10^3/uL (1.5-5.0); LYMPH % 9.2 % (24.0-44.0); MEAN CORPUSCULAR HEMOGLOBIN 26.3 pg (27.0-33.0); MEAN CORPUSCULAR HGB CONC 30.2 g/dl (32.0-36.5); MEAN CORPUSCULAR VOLUME 87.3 fl (80.0-96.0); MONO # 0.5 10^3/uL (0.0-0.8); MONO % 6.1 % (2.0-8.0); NEUTROPHILS % 80.3 % (36.0-66.0); PLATELET COUNT, AUTOMATED 228 10^3/uL (150-450); WHITE BLOOD COUNT 7.4 10^3/uL (4.0-10.0)
[2021-11-24 06:52] LABS: CALCIUM LEVEL 8.5 MG/DL (8.8-10.2); CREATININE FOR GFR 2.81 MG/DL (0.55-1.30); GLOMERULAR FILTRATION RATE 17.9 (>45); MAGNESIUM LEVEL 2.3 MG/DL (1.8-2.4); PHOSPHORUS LEVEL 5.1 MG/DL (2.5-4.9); POTASSIUM SERUM 3.9 MEQ/L (3.5-5.1)
[2021-11-24] MEDS: HumaLOG INSULIN (NovoLOG) PER UNIT SC SCH ×4 (07:30→21:00)
[2021-11-24] MEDS: TIOTROPIUM INHALER/CAPSULE (SPIRIVA) INH SCH (07:54)
[2021-11-24] MEDS: BUDESONIDE 0.5 MG/2 ML INHALATION SUSPENSION INH SCH ×2 (07:54→19:56)
[2021-11-24 08:00] VITALS: BP_SYST 136; BP_DIAS 62; BP_DIAS 80
[2021-11-24] MEDS: **hydrALAZINE** 10 MG TAB PO SCH ×2 (09:00→21:05)
[2021-11-24] MEDS ORDERED: FERROUS GLUCONATE 324 MG TAB PO SCH (09:00)
[2021-11-24] MEDS: bisoproloL fumarate 10 MG TAB PO SCH (10:34)
[2021-11-24] MEDS: SERTRALINE HCL 25 MG TABLET PO SCH (10:35)
[2021-11-24] MEDS: ASPIRIN 81MG ENTERIC TABLET PO SCH (10:35)
[2021-11-24] MEDS: CALCITRIOL 0.25 MCG CAP (S0169) PO SCH (10:36)
[2021-11-24] MEDS: VITAMIN D 1,000 INTERNATIONAL UNITS TABLET PO SCH (10:36)
[2021-11-24 12:00] VITALS: BP 139/60
[2021-11-24] MEDS ORDERED: ACETAMINOPHEN TAB 650MG DOSE (2X325MG) PO ONE (13:10)
[2021-11-24 14:00] VITALS: BP 140/64
[2021-11-24] MEDS: CEFDINIR 300 MG CAP (OMNICEF) PO SCH (14:47)
[2021-11-24] MEDS: SALMETEROL DISKUS 50MCG INHALER (SEREVENT) INH SCH (19:55)
[2021-11-24] MEDS ORDERED: BUMETANIDE 1 MG TAB PO SCH (21:00)
[2021-11-24] MEDS: DOXYCYCLINE HYCLATE 100MG TABLET PO SCH (21:03)
[2021-11-24] MEDS: LEVEMIR (INSULIN DETEMIR) 1 UNITS/0.01ML SC SCH (21:04)
[2021-11-24] MEDS: EZETIMIBE 10MG TABLET (ZETIA) PO SCH (21:04)
[2021-11-24] MEDS: ATORVASTATIN 20 MG TAB PO SCH (21:04)
[2021-11-24 21:05] VITALS: BP 141/61
[2021-11-24 22:00] VITALS: BP 141/61
[2021-11-25] MEDS: HEPARIN SOD (PORCINE) 5000UNITS/ML 1ML VIAL/SYRINGE SC SCH ×2 (05:47→13:10)
[2021-11-25 06:00] VITALS: BP 146/66
[2021-11-25] MEDS: BUDESONIDE 0.5 MG/2 ML INHALATION SUSPENSION INH SCH (06:00)
[2021-11-25] MEDS: TIOTROPIUM INHALER/CAPSULE (SPIRIVA) INH SCH (06:00)
[2021-11-25 06:04] LABS: HEMATOCRIT 24.9 % (36.0-47.0); HEMOGLOBIN 7.7 g/dl (12.0-15.5); MEAN CORPUSCULAR HEMOGLOBIN 26.8 pg (27.0-33.0); MEAN CORPUSCULAR HGB CONC 30.9 g/dl (32.0-36.5); MEAN CORPUSCULAR VOLUME 86.8 fl (80.0-96.0); PLATELET COUNT, AUTOMATED 194 10^3/uL (150-450); RED BLOOD COUNT 2.87 10^6/uL (4.00-5.40); WHITE BLOOD COUNT 5.8 10^3/uL (4.0-10.0)
[2021-11-25] MEDS ORDERED: ACETAMINOPHEN TAB 650MG DOSE (2X325MG) PO PRN (06:05)
[2021-11-25 06:53] LABS: CALCIUM LEVEL 8.1 MG/DL (8.8-10.2); CREATININE FOR GFR 3.05 MG/DL (0.55-1.30); GLOMERULAR FILTRATION RATE 16.3 (>45); MAGNESIUM LEVEL 2.2 MG/DL (1.8-2.4); PHOSPHORUS LEVEL 6.6 MG/DL (2.5-4.9); POTASSIUM SERUM 4.3 MEQ/L (3.5-5.1)
[2021-11-25] MEDS: SALMETEROL DISKUS 50MCG INHALER (SEREVENT) INH SCH (08:00)
[2021-11-25] MEDS: HumaLOG INSULIN (NovoLOG) PER UNIT SC SCH ×2 (09:00→13:00)
[2021-11-25] MEDS: ASPIRIN 81MG ENTERIC TABLET PO SCH (09:00)
[2021-11-25] MEDS: SERTRALINE HCL 25 MG TABLET PO SCH (09:00)
[2021-11-25] MEDS ORDERED: BUMETANIDE 1 MG TAB PO SCH (09:00)
[2021-11-25] MEDS: bisoproloL fumarate 10 MG TAB PO SCH (09:01)
[2021-11-25] MEDS: CALCITRIOL 0.25 MCG CAP (S0169) PO SCH (09:01)
[2021-11-25] MEDS: **hydrALAZINE** 10 MG TAB PO SCH (09:01)
[2021-11-25] MEDS: DOXYCYCLINE HYCLATE 100MG TABLET PO SCH (09:01)
[2021-11-25] MEDS: CEFDINIR 300 MG CAP (OMNICEF) PO SCH (09:01)
[2021-11-25] MEDS: VITAMIN D 1,000 INTERNATIONAL UNITS TABLET PO SCH (09:01)
[2021-11-25] MEDS ORDERED: CEFD300CAP PO (10:00)
[2021-11-25] MEDS ORDERED: FERROUS GLUCONATE 324 MG TAB PO SCH (12:00)
[2021-11-27 15:10] LABS: BODY FLUID CULTURE Not indicated. (.); LEGIONELLA ANTIGEN URINE Negative (Negative); ORGANISM ID Not indicated. (.); SPECIMEN SOURCE Urine (.); URINE STREP PNEUMONIAE ANTIGEN Negative (Negative)
== END 2021-11-25 15:06 | disposition home or self-care (01) | DRG 291 ==
LOC: M ED 10:31 → M ED INP 16:39 → M MSPAV 21:44
PROVIDERS: ADMIT Internal Medicine; ATTEND Family Medicine
DX: I13.0 Hypertensive heart and chronic kidney disease with heart failure and stage 1 through stage 4 chronic kidney disease, or unspecified chronic kidney disease (principal); I50.33 Acute on chronic diastolic (congestive) heart failure; J18.9 Pneumonia, unspecified organism; J96.11 Chronic respiratory failure with hypoxia; N18.4 Chronic kidney disease, stage 4 (severe); J44.9 Chronic obstructive pulmonary disease, unspecified; E78.5 Hyperlipidemia, unspecified; G47.33 Obstructive sleep apnea (adult) (pediatric); E11.9 Type 2 diabetes mellitus without complications; Z79.4 Long term (current) use of insulin; K21.9 Gastro-esophageal reflux disease without esophagitis; D50.9 Iron deficiency anemia, unspecified; Z79.82 Long term (current) use of aspirin; Z79.899 Other long term (current) drug therapy; Z88.0 Allergy status to penicillin; Z88.8 Allergy status to other drugs, medicaments and biological substances; M79.621 Pain in right upper arm

== ENCOUNTER → 2021-11-30 | Outpatient (REF) | payer MEDICARE ==
[~2021-11-30] MED LIST changes: +VITA100093 PO
[2021-11-30 15:59] LABS: PERCENT SATURATION 14.2 % (13.2-45.0)
== END ==
LOC: M LAB REF 13:16
PROVIDERS: ATTEND Internal Medicine Nephrology
DX: E61.1 Iron deficiency (principal); D63.1 Anemia in chronic kidney disease

== ENCOUNTER → 2021-12-02 | Outpatient (CLI) | payer MEDICARE ==
[2021-12-02 13:50] LABS: HEMOGLOBIN A1c 6.7 %
[2021-12-02 14:23] LABS: FREE T4 0.92 NG/DL (0.76-1.46); THYROID STIMULATING HORMONE 1.81 uIU/ML (0.358-3.740)
== END ==
LOC: M PLALAB 11:26
PROVIDERS: ATTEND Family Medicine
DX: E11.22 Type 2 diabetes mellitus with diabetic chronic kidney disease (principal); E04.1 Nontoxic single thyroid nodule

== ENCOUNTER → 2021-12-09 | Outpatient (CLI) | payer MEDICARE | LOC: M RAD 10:37 | PROVIDERS: ATTEND Family Medicine | DX: E04.1 Nontoxic single thyroid nodule (principal) ==

== ENCOUNTER 2021-12-22 12:14 | Outpatient (CLI) | payer MEDICARE ==
[~2021-12-22] VITALS: Ht 152.4 cm; Wt 93.2 kg
[~2021-12-22 12:14] MED LIST changes: +ALBUTEROL SULFATE 2.5 MG/0.5 ML INH NEB SOLN INH PRN; +EPINEPHrine INJ 1 MG/ML 1ML AMP IM PRN; +diphenhydrAMINE 50MG/ML VIAL (J1200) IV PRN; +methylPREDNISolone 125MG 2ML VIAL IV PRN
[2021-12-22] MEDS ORDERED: NS 1,000 ML IV SCH (12:30)
[2021-12-22] MEDS ORDERED: FERRIC CARBOXYMALTOSE INJ 750 MG, VIAL MATE ADAPTER 1 EACH in NS 250 ML IV ONE (12:30)
[2021-12-22 12:36] VITALS: BP 170/77
[2021-12-22 14:35] VITALS: BP 171/72
== END 2021-12-22 14:35 | disposition home or self-care (01) ==
LOC: M INFU 12:14
PROVIDERS: ATTEND Internal Medicine Nephrology
DX: E61.1 Iron deficiency (principal); Z88.0 Allergy status to penicillin; Z88.1 Allergy status to other antibiotic agents
CPT/HCPCS: 96365; 96366; J1439

== ENCOUNTER 2021-12-29 12:28 | Outpatient (CLI) | payer MEDICARE ==
[~2021-12-29] VITALS: Ht 152.4 cm; Wt 93.5 kg
[2021-12-29 12:55] VITALS: BP 160/74
[2021-12-29] MEDS ORDERED: FERRIC CARBOXYMALTOSE INJ 750 MG, VIAL MATE ADAPTER 1 EACH in NS 250 ML IV ONE (13:00)
[2021-12-29] MEDS ORDERED: NS 1,000 ML IV SCH (13:00)
[2021-12-29 14:25] VITALS: BP 162/82
== END 2021-12-29 14:25 | disposition home or self-care (01) ==
LOC: M INFU 12:28
PROVIDERS: ATTEND Internal Medicine Nephrology
DX: E61.1 Iron deficiency (principal); Z88.0 Allergy status to penicillin; Z88.1 Allergy status to other antibiotic agents
CPT/HCPCS: 96365; J1439

== ENCOUNTER → 2022-05-26 | Outpatient (CLI) | payer MEDICARE, SELFPAY ==
[~2022-05-26] MED LIST changes: -ALBUTEROL SULFATE 2.5 MG/0.5 ML INH NEB SOLN INH PRN; -EPINEPHrine INJ 1 MG/ML 1ML AMP IM PRN; +LEVO1TAB38 PO; +LEVO1TAB39 PO; -LEVO250T3 PO; -LEVO500T4 PO; -diphenhydrAMINE 50MG/ML VIAL (J1200) IV PRN; -methylPREDNISolone 125MG 2ML VIAL IV PRN
== END ==
LOC: M WHC 12:29
PROVIDERS: ATTEND Physician Assistant
DX: Z12.31 Encounter for screening mammogram for malignant neoplasm of breast (principal); R92.8 Other abnormal and inconclusive findings on diagnostic imaging of breast

== ENCOUNTER → 2022-06-02 | Outpatient (CLI) | payer MEDICARE ==
[~2022-06-02] MED LIST changes: +ACET500T15 PO; +CARV25TA PO; +COLA100C5 PO; +FERR325T3 PO; +HYDR25TA PO; +ISOS1TAB35 PO; +ROCA0.5C PO; +SENN18TA PO; +TORS100T PO
[2022-06-02 13:51] LABS: BASO % 0.4 % (0.0-1.0); EOS # 0.2 10^3/uL (0.0-0.5); EOS % 2.5 % (0.0-3.0); HEMATOCRIT 33.2 % (36.0-47.0); HEMOGLOBIN 10.3 g/dl (12.0-15.5); LYMPH # 0.8 10^3/uL (1.5-5.0); LYMPH % 10.9 % (24.0-44.0); MEAN CORPUSCULAR HEMOGLOBIN 28.1 pg (27.0-33.0); MEAN CORPUSCULAR VOLUME 90.5 fl (80.0-96.0); MONO # 0.5 10^3/uL (0.0-0.8); MONO % 6.7 % (2.0-8.0); NEUTROPHILS # 5.7 10^3/uL (1.5-8.5); NEUTROPHILS % 79.1 % (36.0-66.0); PLATELET COUNT, AUTOMATED 207 10^3/uL (150-450); RED BLOOD COUNT 3.67 10^6/uL (4.00-5.40); WHITE BLOOD COUNT 7.2 10^3/uL (4.0-10.0)
[2022-06-02 14:23] LABS: ALBUMIN 3.3 GM/DL (3.2-5.2); BILIRUBIN,TOTAL 0.5 MG/DL (0.2-1.0); CALCIUM LEVEL 8.5 MG/DL (8.8-10.2); CREATININE FOR GFR 2.59 MG/DL (0.55-1.30); GLOMERULAR FILTRATION RATE 19.7 (>45); POTASSIUM SERUM 4.9 MEQ/L (3.5-5.1); TOTAL PROTEIN 6.8 GM/DL (6.4-8.2)
== END ==
LOC: M PLAIMG 11:38
PROVIDERS: ATTEND Physician Assistant
DX: R06.02 Shortness of breath (principal)

== ENCOUNTER 2022-06-06 11:52 | Inpatient (IN) | payer MEDICARE ==
[~2022-06-06] VITALS: Ht 157.5 cm; Wt 97.4 kg
[~2022-06-06 11:52] MED LIST changes: -ACET500T15 PO; -CARV25TA PO; -COLA100C5 PO; -FERR325T3 PO; -HYDR25TA PO; -ISOS1TAB35 PO; -ROCA0.5C PO; -SENN18TA PO; -TORS100T PO
[2022-06-06 12:18] LABS: VENOUS BASE EXCESS -10.4 (-2.0-2.0); VENOUS HCO3 16.5 MEQ/L (23.0-27.0); VENOUS O2 SATURATION 93.2 % (60.0-80.0); VENOUS PARTIAL PRESSURE CO2 40.6 mmHg (38.0-50.0); VENOUS PARTIAL PRESSURE O2 74.1 mmHg (30.0-50.0); VENOUS PH 7.228 UNITS (7.330-7.430); VENOUS STANDARD HCO3 16.1 MEQ/L; VENOUS TOTAL CO2 17.8 MEQ/L (24.0-28.0)
[2022-06-06] MEDS ORDERED: NITROGLYCERIN 2% OINT 1 GM *U/D* PKT TOP ONE ×2 (12:20→23:45)
[2022-06-06 12:21] LABS: BASO % 0.3 % (0.0-1.0); EOS # 0.2 10^3/uL (0.0-0.5); EOS % 1.6 % (0.0-3.0); HEMATOCRIT 30.1 % (36.0-47.0); HEMOGLOBIN 9.3 g/dl (12.0-15.5); LYMPH # 0.6 10^3/uL (1.5-5.0); LYMPH % 4.1 % (24.0-44.0); MEAN CORPUSCULAR HGB CONC 30.9 g/dl (32.0-36.5); MEAN CORPUSCULAR VOLUME 90.7 fl (80.0-96.0); MONO # 0.7 10^3/uL (0.0-0.8); MONO % 4.8 % (2.0-8.0); NEUTROPHILS # 12.4 10^3/uL (1.5-8.5); NEUTROPHILS % 88.3 % (36.0-66.0); PLATELET COUNT, AUTOMATED 221 10^3/uL (150-450); RED BLOOD COUNT 3.32 10^6/uL (4.00-5.40); WHITE BLOOD COUNT 14.1 10^3/uL (4.0-10.0)
[2022-06-06 13:25] LABS: ALBUMIN 3.3 GM/DL (3.2-5.2); BILIRUBIN,DIRECT 0.1 MG/DL (0.0-0.2); BILIRUBIN,TOTAL 0.4 MG/DL (0.2-1.0); CALCIUM LEVEL 8.5 MG/DL (8.8-10.2); CREATININE FOR GFR 2.4 MG/DL (0.55-1.30); GLOMERULAR FILTRATION RATE 21.5 (>45); POTASSIUM SERUM 4.6 MEQ/L (3.5-5.1); THYROID STIMULATING HORMONE 2.41 uIU/ML (0.358-3.740); TOTAL PROTEIN 6.2 GM/DL (6.4-8.2)
[2022-06-06] MEDS ORDERED: hydrALAZINE 20MG/ML 1ML VIAL (J0360 PER 20MG) IV STA (13:31)
[2022-06-06 13:34] LABS: RSV AMPLIFICATION NEGATIVE (NEGATIVE)
[2022-06-06] MEDS ORDERED: FUROSEMIDE 100MG/10ML VIAL (J1940) IV ONE (13:35)
[2022-06-06] MEDS ORDERED: ALBUTEROL SULFATE 2.5 MG/0.5 ML INH NEB SOLN NEB PRN (14:55)
[2022-06-06] MEDS ORDERED: hydrALAZINE 20MG/ML 1ML VIAL (J0360 PER 20MG) IV PRN (14:55)
[2022-06-06] MEDS ORDERED: PRED20TA PO (14:58)
[2022-06-06] MEDS ORDERED: ACET500T15 PO (14:58)
[2022-06-06] MEDS ORDERED: ROCA0.5C PO (14:58)
[2022-06-06] MEDS ORDERED: HOME MED LIST COMPLETE! XX SCH (15:00)
[2022-06-06 15:15] LABS: INR 1.01; PROTHROMBIN TIME 13.7 SECONDS (12.7-14.5)
[2022-06-06 15:16] LABS: PARTIAL THROMBOPLASTIN TIME 24.1 SECONDS (25.9-37.0)
[2022-06-06] MEDS ORDERED: GLUCOSE 4GM CHEW TABLET PO PRN (16:15)
[2022-06-06] MEDS ORDERED: DEXTROSE 50% 50 ML SYRINGE IV PRN (16:15)
[2022-06-06] MEDS ORDERED: GLUCAGON INJ 1MG VIAL SC PRN (16:15)
[2022-06-06 18:00] VITALS: BP 202/84
[2022-06-06] MEDS: INSULIN LISPRO (NovoLOG) PER UNIT SC SCH ×2 (18:12→20:55)
[2022-06-06 20:00] VITALS: BP 168/72
[2022-06-06] MEDS: FUROSEMIDE 100MG/10ML VIAL (J1940) IV SCH (20:55)
[2022-06-06] MEDS: ATORVASTATIN 20 MG TAB PO SCH (20:55)
[2022-06-06] MEDS: LEVEMIR (INSULIN DETEMIR) 1 UNITS/0.01ML SC SCH (20:55)
[2022-06-06] MEDS: EZETIMIBE 10MG TABLET (ZETIA) PO SCH (20:55)
[2022-06-06] MEDS ORDERED: **hydrALAZINE** 10 MG TAB PO SCH (21:00)
[2022-06-06] MEDS ORDERED: HEPARIN SOD (PORCINE) 5000UNITS/ML 1ML VIAL/SYRINGE SQ SCH (22:00)
[2022-06-06 23:01] VITALS: BP 181/78
[2022-06-06] MEDS ORDERED: NITROGLYCERIN 0.4 MG SUBL TABLET SL PRN (23:10)
[2022-06-06 23:20] VITALS: PULSE 77
[2022-06-06] MEDS: ACETAMINOPHEN TAB 650MG DOSE (2X325MG) PO PRN (23:23)
[2022-06-06 23:32] VITALS: BP 156/70
[2022-06-06] MEDS ORDERED: CARVedilol 12.5 MG TAB PO ONE (23:45)
[2022-06-06] MEDS ORDERED: HEPARIN DRIP 25,000 UNITS in IV 1 EA IV SCH (23:45)
[2022-06-06] MEDS ORDERED: HEPARIN SOD (PORCINE) 5000UNITS/ML 1ML VIAL/SYRINGE IV ONE (23:45)
[2022-06-06] MEDS ORDERED: HEPARIN SOD (PORCINE) 5000UNITS/ML 1ML VIAL/SYRINGE IV PRN (23:45)
[2022-06-07] VITALS (10 sets, daily range): BP systolic 108–148; BP diastolic 52–72
[2022-06-07 00:17] LABS: HEMATOCRIT 28.9 % (36.0-47.0); MEAN CORPUSCULAR HEMOGLOBIN 28.3 pg (27.0-33.0); MEAN CORPUSCULAR HGB CONC 31.1 g/dl (32.0-36.5); MEAN CORPUSCULAR VOLUME 90.9 fl (80.0-96.0); PLATELET COUNT, AUTOMATED 206 10^3/uL (150-450); RED BLOOD COUNT 3.18 10^6/uL (4.00-5.40); WHITE BLOOD COUNT 11.8 10^3/uL (4.0-10.0)
[2022-06-07 06:29] LABS: HEMATOCRIT 27.9 % (36.0-47.0); HEMOGLOBIN 8.7 g/dl (12.0-15.5); MEAN CORPUSCULAR HEMOGLOBIN 28.1 pg (27.0-33.0); MEAN CORPUSCULAR HGB CONC 31.2 g/dl (32.0-36.5); PLATELET COUNT, AUTOMATED 185 10^3/uL (150-450); WHITE BLOOD COUNT 10.3 10^3/uL (4.0-10.0)
[2022-06-07 07:00] LABS: BILIRUBIN,TOTAL 0.2 MG/DL (0.2-1.0); CALCIUM LEVEL 7.9 MG/DL (8.8-10.2); CREATININE FOR GFR 2.95 MG/DL (0.55-1.30); GLOMERULAR FILTRATION RATE 16.9 (>45); POTASSIUM SERUM 4.6 MEQ/L (3.5-5.1); TOTAL PROTEIN 5.7 GM/DL (6.4-8.2)
[2022-06-07] MEDS ORDERED: bisoproloL fumarate 10 MG TAB PO SCH (09:00)
[2022-06-07 09:03] LABS: CK-MB VALUE MASS 1.8 NG/ML (<3.6)
[2022-06-07] MEDS: INSULIN LISPRO (NovoLOG) PER UNIT SC SCH ×4 (10:08→20:49)
[2022-06-07] MEDS: ACETAMINOPHEN TAB 650MG DOSE (2X325MG) PO PRN ×2 (10:08→23:31)
[2022-06-07] MEDS: ASPIRIN 81MG ENTERIC TABLET PO SCH (10:09)
[2022-06-07] MEDS: **hydrALAZINE HCL** 25 MG TAB PO SCH ×3 (10:09→20:48)
[2022-06-07] MEDS: FUROSEMIDE 100MG/10ML VIAL (J1940) IV SCH ×2 (10:09→20:49)
[2022-06-07] MEDS: ISOSORBIDE MON. (IMDUR) 30MG XR TAB PO SCH (10:10)
[2022-06-07] MEDS: CALCITRIOL 0.25 MCG CAP (S0169) PO SCH (10:10)
[2022-06-07] MEDS: CARVedilol 12.5 MG TAB PO SCH ×2 (10:10→20:48)
[2022-06-07] MEDS ORDERED: MOM 30ML SUSPENSION UDC PO PRN (15:55)
[2022-06-07] MEDS: ATORVASTATIN 20 MG TAB PO SCH (20:48)
[2022-06-07] MEDS: EZETIMIBE 10MG TABLET (ZETIA) PO SCH (20:48)
[2022-06-07] MEDS: DOCUSATE SODIUM 100MG CAPSULE PO SCH (20:48)
[2022-06-07] MEDS: LEVEMIR (INSULIN DETEMIR) 1 UNITS/0.01ML SC SCH (20:49)
[2022-06-07] MEDS: HEPARIN SOD (PORCINE) 5000UNITS/ML 1ML VIAL/SYRINGE SQ SCH (20:50)
[2022-06-07] MEDS ORDERED: SENNA 8.6 MG TAB (SENOKOT) PO SCH (21:00)
[2022-06-08] VITALS (8 sets, daily range): BP systolic 125–178; BP diastolic 60–80; O2SAT 95–98
[2022-06-08] MEDS: HEPARIN SOD (PORCINE) 5000UNITS/ML 1ML VIAL/SYRINGE SQ SCH (05:38)
[2022-06-08 06:05] LABS: HEMOGLOBIN 8.5 g/dl (12.0-15.5); MEAN CORPUSCULAR HEMOGLOBIN 28.6 pg (27.0-33.0); MEAN CORPUSCULAR HGB CONC 31.5 g/dl (32.0-36.5); MEAN CORPUSCULAR VOLUME 90.9 fl (80.0-96.0); PLATELET COUNT, AUTOMATED 173 10^3/uL (150-450); RED BLOOD COUNT 2.97 10^6/uL (4.00-5.40); WHITE BLOOD COUNT 8.1 10^3/uL (4.0-10.0)
[2022-06-08 07:25] LABS: ALBUMIN 2.9 GM/DL (3.2-5.2); BILIRUBIN,TOTAL 0.3 MG/DL (0.2-1.0); CALCIUM LEVEL 7.7 MG/DL (8.8-10.2); CREATININE FOR GFR 3.56 MG/DL (0.55-1.30); GLOMERULAR FILTRATION RATE 13.6 (>45); MAGNESIUM LEVEL 2.4 MG/DL (1.8-2.4); PERCENT SATURATION 13.1 % (13.2-45.0); PHOSPHORUS LEVEL 5.5 MG/DL (2.5-4.9); POTASSIUM SERUM 4.7 MEQ/L (3.5-5.1); TOTAL PROTEIN 5.4 GM/DL (6.4-8.2)
[2022-06-08] MEDS ORDERED: COLA100C5 PO (07:30)
[2022-06-08] MEDS ORDERED: TORS100T PO (07:30)
[2022-06-08] MEDS ORDERED: HYDR25TA PO (07:30)
[2022-06-08] MEDS ORDERED: CARV25TA PO (07:30)
[2022-06-08] MEDS ORDERED: SENN18TA PO (07:30)
[2022-06-08] MEDS ORDERED: ISOS1TAB35 PO (07:30)
[2022-06-08] MEDS: DOCUSATE SODIUM 100MG CAPSULE PO SCH (08:32)
[2022-06-08] MEDS: ASPIRIN 81MG ENTERIC TABLET PO SCH (08:32)
[2022-06-08] MEDS: CALCITRIOL 0.25 MCG CAP (S0169) PO SCH (08:33)
[2022-06-08] MEDS: INSULIN LISPRO (NovoLOG) PER UNIT SC SCH (08:35)
[2022-06-08] MEDS: CARVedilol 12.5 MG TAB PO SCH (08:37)
[2022-06-08] MEDS: **hydrALAZINE HCL** 25 MG TAB PO SCH (08:37)
[2022-06-08] MEDS: ISOSORBIDE MON. (IMDUR) 30MG XR TAB PO SCH (08:38)
[2022-06-08] MEDS ORDERED: TORSEMIDE (DEMADEX) 50 MG PER 1/2 TAB PO SCH (09:00)
[2022-06-08] MEDS ORDERED: FERR325T3 PO (12:54)
== END 2022-06-08 11:03 | disposition home or self-care (01) | DRG 291 ==
LOC: M ED 11:52 → M ED INP 14:51 → ENRESERV 16:01 → M PCU 17:32
PROVIDERS: ADMIT Internal Medicine; ATTEND Internal Medicine
DX: I13.0 Hypertensive heart and chronic kidney disease with heart failure and stage 1 through stage 4 chronic kidney disease, or unspecified chronic kidney disease (principal); I50.33 Acute on chronic diastolic (congestive) heart failure; I16.1 Hypertensive emergency; E87.2 Acidosis; J98.11 Atelectasis; N18.4 Chronic kidney disease, stage 4 (severe); N17.9 Acute kidney failure, unspecified; I20.0 Unstable angina; E78.5 Hyperlipidemia, unspecified; D64.9 Anemia, unspecified; E11.22 Type 2 diabetes mellitus with diabetic chronic kidney disease; Z88.0 Allergy status to penicillin; Z88.8 Allergy status to other drugs, medicaments and biological substances; Z79.82 Long term (current) use of aspirin; Z79.899 Other long term (current) drug therapy; Z79.4 Long term (current) use of insulin; Z96.643 Presence of artificial hip joint, bilateral

== ENCOUNTER → 2022-06-30 | Outpatient (CLI) | payer MEDICARE ==
[~2022-06-30] MED LIST changes: +ACET500T15 PO; +CARV25TA PO; +COLA100C5 PO; +FERR325T3 PO; +HYDR25TA PO; +ISOS1TAB35 PO; +ROCA0.5C PO; +SENN18TA PO; +TORS100T PO
[2022-06-30 14:05] LABS: CREATININE FOR GFR 2.65 MG/DL (0.55-1.30); GLOMERULAR FILTRATION RATE 19.1 (>45)
== END ==
LOC: M PLALAB 11:04
PROVIDERS: ATTEND Internal Medicine Cardiovascular Disease
DX: N18.4 Chronic kidney disease, stage 4 (severe) (principal)

== ENCOUNTER 2022-07-25 21:00 | Inpatient (IN) | payer MEDICARE ==
[~2022-07-25] VITALS: Ht 149.9 cm; Wt 95.0 kg
[2022-07-25 22:35] LABS: BASO % 0.2 % (0.0-1.0); EOS # 0.1 10^3/uL (0.0-0.5); EOS % 0.9 % (0.0-3.0); HEMATOCRIT 30.5 % (36.0-47.0); HEMOGLOBIN 9.9 g/dl (12.0-15.5); LYMPH # 0.4 10^3/uL (1.5-5.0); LYMPH % 2.9 % (24.0-44.0); MEAN CORPUSCULAR HEMOGLOBIN 28.3 pg (27.0-33.0); MEAN CORPUSCULAR HGB CONC 32.5 g/dl (32.0-36.5); MEAN CORPUSCULAR VOLUME 87.1 fl (80.0-96.0); MONO # 0.6 10^3/uL (0.0-0.8); MONO % 4.7 % (2.0-8.0); NEUTROPHILS # 12.5 10^3/uL (1.5-8.5); NEUTROPHILS % 90.9 % (36.0-66.0); PLATELET COUNT, AUTOMATED 236 10^3/uL (150-450); WHITE BLOOD COUNT 13.8 10^3/uL (4.0-10.0)
[2022-07-25 23:10] LABS: CALCIUM LEVEL 8.1 MG/DL (8.8-10.2); CREATININE FOR GFR 2.91 MG/DL (0.55-1.30); GLOMERULAR FILTRATION RATE 17.2 (>45); POTASSIUM SERUM 4.5 MEQ/L (3.5-5.1)
[2022-07-26] VITALS (9 sets, daily range): BP systolic 142–180; BP diastolic 65–98
[2022-07-26] MEDS ORDERED: NS 500 ML IV ONE (02:30)
[2022-07-26] MEDS ORDERED: MORPHINE 2 MG/ML 1ML VIAL IV ONE (02:30)
[2022-07-26] MEDS ORDERED: ONDANSETRON 4MG 2ML VIAL IV ONE ×2 (02:30→04:00)
[2022-07-26] MEDS ORDERED: MORPHINE 4 MG/ML 1ML VIAL/SYRINGE IV PRN (04:00)
[2022-07-26] MEDS ORDERED: MORPHINE 2 MG/ML 1ML VIAL IV PRN (04:00)
[2022-07-26] MEDS ORDERED: GLUCAGON INJ 1MG VIAL SC PRN (04:10)
[2022-07-26] MEDS ORDERED: GLUCOSE 4GM CHEW TABLET PO PRN (04:10)
[2022-07-26] MEDS ORDERED: ACETAMINOPHEN 1000MG 100ML IV BTL (OFIRMEV) (J0131 PER 10MG) IV ONE (04:10)
[2022-07-26] MEDS ORDERED: DEXTROSE 50% 50 ML SYRINGE IV PRN (04:10)
[2022-07-26 04:12] LABS: RSV AMPLIFICATION NEGATIVE (NEGATIVE)
[2022-07-26] MEDS ORDERED: ONDANSETRON 4MG 2ML VIAL IV PRN ×2 (04:20→16:55)
[2022-07-26] MEDS ORDERED: VANCOMYCIN HCL 1,000 MG, VIAL MATE ADAPTER 1 EACH in NS 250 ML IV SCH (04:40)
[2022-07-26] MEDS: CEFEPIME HCL 1 GM in D5W MINI-BAG PLUS 50 ML IV SCH (04:40)
[2022-07-26] MEDS: NS 1,000 ML IV SCH ×2 (04:41→11:09)
[2022-07-26] MEDS ORDERED: VANCOMYCIN INTERMITTENT/PULSE DOSING BY CLINICAL PHARMACIST PER DOSING PROTOCOL XX SCH (05:00)
[2022-07-26] MEDS ORDERED: DOCU100C16 PO (05:44)
[2022-07-26] MEDS ORDERED: ALBU8.5H INH (05:44)
[2022-07-26] MEDS ORDERED: FERR1TAB8 PO (05:44)
[2022-07-26] MEDS ORDERED: ISOS1TAB36 PO (05:44)
[2022-07-26] MEDS ORDERED: HYDR25TA PO (05:44)
[2022-07-26] MEDS ORDERED: SYMB16INH INH (05:44)
[2022-07-26] MEDS ORDERED: TORS100T PO (05:44)
[2022-07-26] MEDS ORDERED: ALBUTEROL 90 MCG/ACT 8GM HFA INHALER INH PRN (05:45)
[2022-07-26] MEDS ORDERED: HOME MED LIST COMPLETE! XX SCH (05:45)
[2022-07-26 05:54] LABS: HEMATOCRIT 27.2 % (36.0-47.0); HEMOGLOBIN 8.5 g/dl (12.0-15.5); MEAN CORPUSCULAR HEMOGLOBIN 27.7 pg (27.0-33.0); MEAN CORPUSCULAR HGB CONC 31.3 g/dl (32.0-36.5); MEAN CORPUSCULAR VOLUME 88.6 fl (80.0-96.0); PLATELET COUNT, AUTOMATED 205 10^3/uL (150-450); RED BLOOD COUNT 3.07 10^6/uL (4.00-5.40); WHITE BLOOD COUNT 13.8 10^3/uL (4.0-10.0)
[2022-07-26] MEDS ORDERED: VANCOMYCIN HCL 750 MG, VIAL MATE ADAPTER 1 EACH in D5W 250 ML IV ONE ×2 (06:00→07:00)
[2022-07-26 06:06] LABS: INR 1.07; PROTHROMBIN TIME 14.1 SECONDS (12.5-14.5)
[2022-07-26 06:07] LABS: PARTIAL THROMBOPLASTIN TIME 26.9 SECONDS (24.8-34.2)
[2022-07-26 06:26] LABS: BLOOD UREA NITROGEN 59 MG/DL (7-18); CALCIUM LEVEL 8.1 MG/DL (8.8-10.2); CARBON DIOXIDE LEVEL 23 MEQ/L (21-32); CHLORIDE LEVEL 110 MEQ/L (98-107); CREATININE FOR GFR 3.08 MG/DL (0.55-1.30); GLOMERULAR FILTRATION RATE 16.1 (>45); GLUCOSE, FASTING 307 MG/DL (70-100); POTASSIUM SERUM 4.5 MEQ/L (3.5-5.1); SODIUM LEVEL 141 MEQ/L (136-145)
[2022-07-26] MEDS: INSULIN LISPRO (NovoLOG) PER UNIT SC SCH ×4 (06:26→17:55)
[2022-07-26] MEDS: **hydrALAZINE HCL** 25 MG TAB PO SCH ×3 (08:14→20:12)
[2022-07-26] MEDS ORDERED: HYDROMORPHONE HCL 0.5 MG/ 0.5 ML SYRINGE (J1170 PER 1) IV PRN (09:45)
[2022-07-26 10:08] LABS: ALBUMIN 3.1 GM/DL (3.2-5.2); ALT/SGPT 16 U/L (12-78); BILIRUBIN,DIRECT < 0.1 MG/DL (0.0-0.2); BILIRUBIN,TOTAL 0.3 MG/DL (0.2-1.0); TOTAL PROTEIN 6.2 GM/DL (6.4-8.2)
[2022-07-26] MEDS: SYMBICORT 160/4.5MCG INHALER 6GM INH SCH ×2 (10:30→20:32)
[2022-07-26] MEDS: ACETAMINOPHEN 500 MG TAB PO SCH ×2 (11:09→18:10)
[2022-07-26] MEDS ORDERED: ISOVUE-300 61% 50ML VIAL As Ordered ONE (15:36)
[2022-07-26] MEDS ORDERED: propofoL 200 MG/20 ML VIAL As Ordered ONE ×2 (15:41→16:34)
[2022-07-26] MEDS ORDERED: dexameTHASONE 4 MG/ML 1ML VIAL (J1100 PER 1MG) As Ordered ONE (15:42)
[2022-07-26] MEDS ORDERED: MIDAZOLAM INJ 2MG/2ML VIAL (J2250 PER 1MG) As Ordered ONE (15:42)
[2022-07-26] MEDS ORDERED: LIDOCAINE 2% 100MG/5ML SDV (FOR ANES.) As Ordered ONE (15:42)
[2022-07-26] MEDS ORDERED: ONDANSETRON 4MG 2ML VIAL As Ordered ONE (15:42)
[2022-07-26] MEDS ORDERED: fentaNYL 100 MCG/2 ML INJECTION As Ordered ONE (15:42)
[2022-07-26] MEDS ORDERED: LIDOCAINE 2% 5ML JELLY UROJET As Ordered ONE (16:02)
[2022-07-26] MEDS ORDERED: LR 1,000 ML IV SCH (16:55)
[2022-07-26] MEDS ORDERED: fentaNYL 100 MCG/2 ML INJECTION IV PRN (16:55)
[2022-07-26] MEDS ORDERED: oxyCODONE 5MG TAB PO PRN (16:55)
[2022-07-26] MEDS: HYDROMORPHONE HCL 0.5 MG/ 0.5 ML SYRINGE (J1170 PER 1) IV PRN (19:41)
[2022-07-26] MEDS ORDERED: MORPHINE 4 MG/ML 1ML VIAL/SYRINGE IV ONE (20:05)
[2022-07-26] MEDS: EZETIMIBE 10MG TABLET (ZETIA) PO SCH (20:12)
[2022-07-26] MEDS: FERROUS SULFATE 325MG TAB PO SCH (20:12)
[2022-07-26] MEDS: ATORVASTATIN 20 MG TAB PO SCH (20:12)
[2022-07-26] MEDS ORDERED: LEVEMIR (INSULIN DETEMIR) 1 UNITS/0.01ML SC SCH (21:00)
[2022-07-27] VITALS (7 sets, daily range): BP systolic 100–186; BP diastolic 62–84; O2SAT 96
[2022-07-27] MEDS: ACETAMINOPHEN 500 MG TAB PO SCH ×5 (00:23→23:14)
[2022-07-27] MEDS: INSULIN LISPRO (NovoLOG) PER UNIT SC SCH ×5 (00:24→21:00)
[2022-07-27] MEDS: HYDROMORPHONE HCL 0.5 MG/ 0.5 ML SYRINGE (J1170 PER 1) IV PRN ×3 (01:12→23:15)
[2022-07-27] MEDS: CEFEPIME HCL 1 GM in D5W MINI-BAG PLUS 50 ML IV SCH (05:45)
[2022-07-27 06:32] LABS: HEMATOCRIT 27.1 % (36.0-47.0); HEMOGLOBIN 8.2 g/dl (12.0-15.5); MEAN CORPUSCULAR HEMOGLOBIN 27.7 pg (27.0-33.0); MEAN CORPUSCULAR HGB CONC 30.3 g/dl (32.0-36.5); MEAN CORPUSCULAR VOLUME 91.6 fl (80.0-96.0); PLATELET COUNT, AUTOMATED 198 10^3/uL (150-450); RED BLOOD COUNT 2.96 10^6/uL (4.00-5.40); WHITE BLOOD COUNT 13.8 10^3/uL (4.0-10.0)
[2022-07-27 07:07] LABS: CREATININE FOR GFR 3.33 MG/DL (0.55-1.30); GLOMERULAR FILTRATION RATE 14.7 (>45); POTASSIUM SERUM 4.9 MEQ/L (3.5-5.1); VANCOMYCIN RANDOM 13.1 UG/ML
[2022-07-27] MEDS ORDERED: VANCOMYCIN HCL 750 MG, VIAL MATE ADAPTER 1 EACH in D5W 250 ML IV ONE (08:00)
[2022-07-27] MEDS: SYMBICORT 160/4.5MCG INHALER 6GM INH SCH ×2 (08:28→20:16)
[2022-07-27] MEDS ORDERED: TORSEMIDE (DEMADEX) 50 MG PER 1/2 TAB PO SCH (09:00)
[2022-07-27] MEDS: FERROUS SULFATE 325MG TAB PO SCH ×2 (09:35→21:00)
[2022-07-27] MEDS: ASPIRIN 81MG ENTERIC TABLET PO SCH (09:35)
[2022-07-27] MEDS: ISOSORBIDE MON. (IMDUR) 60MG XR TAB PO SCH (09:41)
[2022-07-27] MEDS: **hydrALAZINE HCL** 25 MG TAB PO SCH ×3 (09:41→21:25)
[2022-07-27] MEDS ORDERED: LR 500 ML IV ONE (10:30)
[2022-07-27] MEDS ORDERED: INSULIN LISPRO (NovoLOG) PER UNIT SC SCH ×2 (12:00→17:30)
[2022-07-27 15:21] LABS: HEMATOCRIT 27.6 % (36.0-47.0); HEMOGLOBIN 8.3 g/dl (12.0-15.5); MEAN CORPUSCULAR HEMOGLOBIN 27.8 pg (27.0-33.0); MEAN CORPUSCULAR HGB CONC 30.1 g/dl (32.0-36.5); MEAN CORPUSCULAR VOLUME 92.3 fl (80.0-96.0); PLATELET COUNT, AUTOMATED 208 10^3/uL (150-450); RED BLOOD COUNT 2.99 10^6/uL (4.00-5.40); WHITE BLOOD COUNT 15.7 10^3/uL (4.0-10.0)
[2022-07-27] MEDS: LIDOCAINE 5% (LIDODERM) PATCH TD SCH (15:30)
[2022-07-27 15:56] LABS: CREATININE FOR GFR 3.42 MG/DL (0.55-1.30); GLOMERULAR FILTRATION RATE 14.2 (>45); POTASSIUM SERUM 4.5 MEQ/L (3.5-5.1)
[2022-07-27] MEDS: EZETIMIBE 10MG TABLET (ZETIA) PO SCH (21:25)
[2022-07-27] MEDS: CARVedilol 3.125 MG TAB PO SCH (21:25)
[2022-07-27] MEDS: ATORVASTATIN 20 MG TAB PO SCH (21:25)
[2022-07-27] MEDS: LEVEMIR (INSULIN DETEMIR) 1 UNITS/0.01ML SC SCH (21:26)
[2022-07-28] MEDS: HYDROMORPHONE HCL 0.5 MG/ 0.5 ML SYRINGE (J1170 PER 1) IV PRN ×2 (04:16→12:29)
[2022-07-28 04:20] VITALS: BP 188/80
[2022-07-28] MEDS: CEFEPIME HCL 1 GM in D5W MINI-BAG PLUS 50 ML IV SCH (04:24)
[2022-07-28 04:45] VITALS: BP 182/93
[2022-07-28] MEDS: ACETAMINOPHEN 500 MG TAB PO SCH ×3 (05:21→17:41)
[2022-07-28] MEDS: CARVedilol 3.125 MG TAB PO SCH ×2 (05:21→20:57)
[2022-07-28] MEDS: **hydrALAZINE HCL** 25 MG TAB PO SCH ×3 (05:22→20:56)
[2022-07-28 06:21] LABS: HEMATOCRIT 24.8 % (36.0-47.0); HEMOGLOBIN 7.7 g/dl (12.0-15.5); MEAN CORPUSCULAR VOLUME 90.2 fl (80.0-96.0); PLATELET COUNT, AUTOMATED 177 10^3/uL (150-450); RED BLOOD COUNT 2.75 10^6/uL (4.00-5.40); WHITE BLOOD COUNT 10.1 10^3/uL (4.0-10.0)
[2022-07-28 06:58] LABS: BLOOD UREA NITROGEN 62 MG/DL (7-18); CALCIUM LEVEL 8.1 MG/DL (8.8-10.2); CARBON DIOXIDE LEVEL 22 MEQ/L (21-32); CHLORIDE LEVEL 110 MEQ/L (98-107); CREATININE FOR GFR 3.34 MG/DL (0.55-1.30); GLOMERULAR FILTRATION RATE 14.6 (>45); GLUCOSE, FASTING 174 MG/DL (70-100); POTASSIUM SERUM 4.5 MEQ/L (3.5-5.1); SODIUM LEVEL 137 MEQ/L (136-145)
[2022-07-28] MEDS: SYMBICORT 160/4.5MCG INHALER 6GM INH SCH ×2 (07:56→19:46)
[2022-07-28 09:00] VITALS: BP 176/88
[2022-07-28] MEDS ORDERED: CEFDINIR 300 MG CAP (OMNICEF) PO SCH (09:00)
[2022-07-28] MEDS ORDERED: SENNA 8.6 MG TAB (SENOKOT) PO PRN (09:10)
[2022-07-28] MEDS: INSULIN LISPRO (NovoLOG) PER UNIT SC SCH ×7 (09:28→20:46)
[2022-07-28 10:46] LABS: FERRITIN 455 NG/ML (8-252); IRON (FE) 18 UG/DL (50-170); PERCENT SATURATION 10.3 % (13.2-45.0); TOTAL IRON BINDING CAPACITY 175 UG/DL (250-450)
[2022-07-28] MEDS: ISOSORBIDE MON. (IMDUR) 60MG XR TAB PO SCH (11:29)
[2022-07-28] MEDS: FERROUS SULFATE 325MG TAB PO SCH ×3 (11:30→20:57)
[2022-07-28] MEDS: ASPIRIN 81MG ENTERIC TABLET PO SCH (11:30)
[2022-07-28] MEDS: LIDOCAINE 5% (LIDODERM) PATCH TD SCH (11:31)
[2022-07-28 11:58] LABS: ALBUMIN 2.6 GM/DL (3.2-5.2); ALT/SGPT 14 U/L (12-78); BILIRUBIN,DIRECT < 0.1 MG/DL (0.0-0.2); BILIRUBIN,TOTAL 0.3 MG/DL (0.2-1.0); TOTAL PROTEIN 5.7 GM/DL (6.4-8.2)
[2022-07-28] MEDS: MIRALAX *UNIT DOSE* 17GM PACKET PO SCH ×2 (13:16→20:58)
[2022-07-28] MEDS: METAMUCIL (PSYLLIUM) PACKET PO SCH ×2 (13:16→20:58)
[2022-07-28] MEDS: CEFDINIR 300 MG CAP (OMNICEF) PO SCH (13:17)
[2022-07-28 14:00] VITALS: BP 174/84
[2022-07-28] MEDS ORDERED: IRON SUCROSE 300 MG in NS 250 ML IV ONE (15:00)
[2022-07-28 20:00] VITALS: BP 146/74
[2022-07-28] MEDS: ATORVASTATIN 20 MG TAB PO SCH (20:56)
[2022-07-28] MEDS: EZETIMIBE 10MG TABLET (ZETIA) PO SCH (20:57)
[2022-07-28] MEDS: LEVEMIR (INSULIN DETEMIR) 1 UNITS/0.01ML SC SCH (20:58)
[2022-07-28 22:32] VITALS: O2SAT 92
[2022-07-29] VITALS (8 sets, daily range): BP systolic 170–175; BP diastolic 64–85; O2SAT 94
[2022-07-29] MEDS: ACETAMINOPHEN 500 MG TAB PO SCH ×4 (00:29→17:12)
[2022-07-29 06:51] LABS: HEMATOCRIT 24.8 % (36.0-47.0); HEMOGLOBIN 7.5 g/dl (12.0-15.5); MEAN CORPUSCULAR HEMOGLOBIN 27.6 pg (27.0-33.0); MEAN CORPUSCULAR HGB CONC 30.2 g/dl (32.0-36.5); MEAN CORPUSCULAR VOLUME 91.2 fl (80.0-96.0); PLATELET COUNT, AUTOMATED 175 10^3/uL (150-450); RED BLOOD COUNT 2.72 10^6/uL (4.00-5.40); WHITE BLOOD COUNT 6.5 10^3/uL (4.0-10.0)
[2022-07-29 07:28] LABS: CALCIUM LEVEL 7.9 MG/DL (8.8-10.2); CREATININE FOR GFR 2.92 MG/DL (0.55-1.30); GLOMERULAR FILTRATION RATE 17.1 (>45); POTASSIUM SERUM 4.4 MEQ/L (3.5-5.1)
[2022-07-29] MEDS: SYMBICORT 160/4.5MCG INHALER 6GM INH SCH ×2 (08:11→20:06)
[2022-07-29] MEDS: INSULIN LISPRO (NovoLOG) PER UNIT SC SCH ×6 (08:49→20:46)
[2022-07-29] MEDS: ASPIRIN 81MG ENTERIC TABLET PO SCH (08:52)
[2022-07-29] MEDS: FERROUS SULFATE 325MG TAB PO SCH ×2 (08:52→20:43)
[2022-07-29] MEDS: CEFDINIR 300 MG CAP (OMNICEF) PO SCH (08:53)
[2022-07-29] MEDS: MIRALAX *UNIT DOSE* 17GM PACKET PO SCH ×2 (08:53→20:44)
[2022-07-29] MEDS: METAMUCIL (PSYLLIUM) PACKET PO SCH ×2 (08:53→20:44)
[2022-07-29] MEDS: LIDOCAINE 5% (LIDODERM) PATCH TD SCH (08:54)
[2022-07-29] MEDS: ISOSORBIDE MON. (IMDUR) 60MG XR TAB PO SCH (08:55)
[2022-07-29] MEDS: CARVedilol 3.125 MG TAB PO SCH ×2 (08:55→20:43)
[2022-07-29] MEDS: **hydrALAZINE HCL** 25 MG TAB PO SCH ×3 (08:56→20:43)
[2022-07-29] MEDS ORDERED: NS 400 ML IV SCH (11:00)
[2022-07-29] MEDS ORDERED: NS 600 ML IV SCH (14:00)
[2022-07-29] MEDS ORDERED: PANTOPRAZOLE 40MG VIAL IV ONE (14:30)
[2022-07-29] MEDS: SUCRALFATE 1 GM TAB PO SCH ×2 (17:12→20:43)
[2022-07-29] MEDS: ATORVASTATIN 20 MG TAB PO SCH (20:42)
[2022-07-29] MEDS: EZETIMIBE 10MG TABLET (ZETIA) PO SCH (20:43)
[2022-07-29] MEDS: LEVEMIR (INSULIN DETEMIR) 1 UNITS/0.01ML SC SCH (20:44)
[2022-07-29] MEDS: PANTOPRAZOLE 40MG VIAL IV SCH (20:46)
[2022-07-29 21:50] LABS: HEMATOCRIT 28.1 % (36.0-47.0); HEMOGLOBIN 8.8 g/dl (12.0-15.5)
[2022-07-30] MEDS: ACETAMINOPHEN 500 MG TAB PO SCH ×5 (03:01→18:00)
[2022-07-30 06:08] LABS: HEMATOCRIT 27.2 % (36.0-47.0); HEMOGLOBIN 8.4 g/dl (12.0-15.5); MEAN CORPUSCULAR HEMOGLOBIN 27.4 pg (27.0-33.0); MEAN CORPUSCULAR HGB CONC 30.9 g/dl (32.0-36.5); MEAN CORPUSCULAR VOLUME 88.6 fl (80.0-96.0); PLATELET COUNT, AUTOMATED 196 10^3/uL (150-450); RED BLOOD COUNT 3.07 10^6/uL (4.00-5.40); WHITE BLOOD COUNT 7.4 10^3/uL (4.0-10.0)
[2022-07-30 06:09] VITALS: BP 155/76
[2022-07-30 06:34] LABS: CALCIUM LEVEL 7.7 MG/DL (8.8-10.2); CREATININE FOR GFR 2.86 MG/DL (0.55-1.30); GLOMERULAR FILTRATION RATE 17.5 (>45); POTASSIUM SERUM 4.6 MEQ/L (3.5-5.1)
[2022-07-30] MEDS: SYMBICORT 160/4.5MCG INHALER 6GM INH SCH ×2 (08:04→19:57)
[2022-07-30] MEDS: INSULIN LISPRO (NovoLOG) PER UNIT SC SCH ×4 (09:46→21:00)
[2022-07-30] MEDS: CEFDINIR 300 MG CAP (OMNICEF) PO SCH (09:46)
[2022-07-30] MEDS: ASPIRIN 81MG ENTERIC TABLET PO SCH (09:47)
[2022-07-30] MEDS: PANTOPRAZOLE 40MG VIAL IV SCH ×2 (09:47→21:37)
[2022-07-30] MEDS: FERROUS SULFATE 325MG TAB PO SCH ×2 (09:47→21:36)
[2022-07-30] MEDS: ISOSORBIDE MON. (IMDUR) 60MG XR TAB PO SCH (09:47)
[2022-07-30] MEDS: CARVedilol 3.125 MG TAB PO SCH ×2 (09:48→21:37)
[2022-07-30] MEDS: SUCRALFATE 1 GM TAB PO SCH ×4 (09:48→21:36)
[2022-07-30] MEDS: MIRALAX *UNIT DOSE* 17GM PACKET PO SCH ×2 (09:49→21:00)
[2022-07-30] MEDS: METAMUCIL (PSYLLIUM) PACKET PO SCH ×2 (09:49→21:00)
[2022-07-30] MEDS: **hydrALAZINE HCL** 25 MG TAB PO SCH ×3 (09:49→21:38)
[2022-07-30] MEDS: LIDOCAINE 5% (LIDODERM) PATCH TD SCH (09:50)
[2022-07-30 12:09] LABS: HEMATOCRIT 29.3 % (36.0-47.0); HEMOGLOBIN 9.2 g/dl (12.0-15.5)
[2022-07-30 14:00] VITALS: BP 170/74
[2022-07-30 20:42] VITALS: BP 184/86
[2022-07-30] MEDS: EZETIMIBE 10MG TABLET (ZETIA) PO SCH (21:36)
[2022-07-30] MEDS: ATORVASTATIN 20 MG TAB PO SCH (21:36)
[2022-07-30] MEDS: LEVEMIR (INSULIN DETEMIR) 1 UNITS/0.01ML SC SCH (21:37)
[2022-07-30 21:58] VITALS: BP 178/100
[2022-07-30 22:16] VITALS: O2SAT 91
[2022-07-31] MEDS: ACETAMINOPHEN 500 MG TAB PO SCH ×3 (00:41→12:49)
[2022-07-31 05:25] LABS: HEMATOCRIT 28.4 % (36.0-47.0); HEMOGLOBIN 8.8 g/dl (12.0-15.5); MEAN CORPUSCULAR HEMOGLOBIN 27.8 pg (27.0-33.0); MEAN CORPUSCULAR VOLUME 89.9 fl (80.0-96.0); PLATELET COUNT, AUTOMATED 198 10^3/uL (150-450); RED BLOOD COUNT 3.16 10^6/uL (4.00-5.40); WHITE BLOOD COUNT 6.6 10^3/uL (4.0-10.0)
[2022-07-31 05:40] VITALS: BP 200/86
[2022-07-31 06:03] LABS: CALCIUM LEVEL 7.8 MG/DL (8.8-10.2); CREATININE FOR GFR 2.74 MG/DL (0.55-1.30); GLOMERULAR FILTRATION RATE 18.4 (>45); POTASSIUM SERUM 4.7 MEQ/L (3.5-5.1)
[2022-07-31] MEDS ORDERED: **hydrALAZINE** 10 MG TAB PO ONE (06:10)
[2022-07-31 06:14] VITALS: BP 200/84
[2022-07-31 06:45] VITALS: BP 172/74
[2022-07-31] MEDS: PANTOPRAZOLE 40MG VIAL IV SCH (08:32)
[2022-07-31] MEDS: ASPIRIN 81MG ENTERIC TABLET PO SCH (08:32)
[2022-07-31] MEDS: ISOSORBIDE MON. (IMDUR) 60MG XR TAB PO SCH (08:32)
[2022-07-31] MEDS: FERROUS SULFATE 325MG TAB PO SCH (08:32)
[2022-07-31] MEDS: SUCRALFATE 1 GM TAB PO SCH ×2 (08:32→12:49)
[2022-07-31] MEDS: CARVedilol 3.125 MG TAB PO SCH (08:32)
[2022-07-31] MEDS: **hydrALAZINE HCL** 25 MG TAB PO SCH ×2 (08:33→15:04)
[2022-07-31] MEDS: INSULIN LISPRO (NovoLOG) PER UNIT SC SCH ×2 (08:34→12:50)
[2022-07-31] MEDS: SYMBICORT 160/4.5MCG INHALER 6GM INH SCH (08:40)
[2022-07-31] MEDS: METAMUCIL (PSYLLIUM) PACKET PO SCH (08:42)
[2022-07-31] MEDS: LIDOCAINE 5% (LIDODERM) PATCH TD SCH (08:42)
[2022-07-31] MEDS: MIRALAX *UNIT DOSE* 17GM PACKET PO SCH (08:42)
[2022-07-31] MEDS: CEFDINIR 300 MG CAP (OMNICEF) PO SCH (08:42)
[2022-07-31 12:27] LABS: HEMATOCRIT 31.5 % (36.0-47.0); HEMOGLOBIN 9.8 g/dl (12.0-15.5); MEAN CORPUSCULAR HEMOGLOBIN 27.7 pg (27.0-33.0); MEAN CORPUSCULAR HGB CONC 31.1 g/dl (32.0-36.5); PLATELET COUNT, AUTOMATED 263 10^3/uL (150-450); RED BLOOD COUNT 3.54 10^6/uL (4.00-5.40); WHITE BLOOD COUNT 7.4 10^3/uL (4.0-10.0)
[2022-07-31 14:00] VITALS: BP 168/66
[2022-07-31] MEDS ORDERED: CARVedilol 3.125 MG TAB PO STA (14:41)
[2022-07-31] MEDS ORDERED: HYDROMORPHONE HCL 0.5 MG/ 0.5 ML SYRINGE (J1170 PER 1) IV ONE (14:45)
[2022-07-31] MEDS ORDERED: CARV3.12 PO (14:53)
[2022-07-31] MEDS ORDERED: META1POW PO (14:53)
[2022-07-31] MEDS ORDERED: MIRA1POW3 PO (14:53)
[2022-07-31] MEDS ORDERED: LIDO5TD TD (14:53)
[2022-07-31] MEDS ORDERED: CEFD300CAP PO (14:53)
[2022-07-31] MEDS ORDERED: ACET-683 PO (14:53)
[2022-07-31] MEDS ORDERED: PANT40TA29 PO (14:53)
[2022-07-31] MEDS ORDERED: SUCR1TA PO (14:53)
[2022-07-31] MEDS ORDERED: CARV6.25 PO (14:54)
[2022-07-31] MEDS ORDERED: LIDO5CRE6 TOP (15:29)
[2022-07-31 16:21] VITALS: BP 178/82
[2022-07-31] MEDS ORDERED: CARVedilol 6.25 MG TAB PO SCH (21:00)
== END 2022-07-31 17:27 | disposition home or self-care (01) | DRG 854 ==
LOC: M ED 21:00 → M ED INP 07-26 03:59 → ENRESERV 07-26 14:04 → M MSPAV 07-26 18:02
PROVIDERS: ADMIT Family Medicine; ATTEND Student in an Organized Health Care Education/Training Program
PROC: 0T788DZ Dilation of Bilateral Ureters with Intraluminal Device, Via Natural or Artificial Opening Endoscopic (ICD-10-PCS; principal; 2022-07-26 16:00)
PROC: 30233N1 Transfusion of Nonautologous Red Blood Cells into Peripheral Vein, Percutaneous Approach (ICD-10-PCS; 2022-07-29)
DX: A41.9 Sepsis, unspecified organism (principal); N13.6 Pyonephrosis; I13.0 Hypertensive heart and chronic kidney disease with heart failure and stage 1 through stage 4 chronic kidney disease, or unspecified chronic kidney disease; I50.32 Chronic diastolic (congestive) heart failure; N18.4 Chronic kidney disease, stage 4 (severe); N17.9 Acute kidney failure, unspecified; K92.2 Gastrointestinal hemorrhage, unspecified; E11.22 Type 2 diabetes mellitus with diabetic chronic kidney disease; J44.9 Chronic obstructive pulmonary disease, unspecified; E78.5 Hyperlipidemia, unspecified; Z79.4 Long term (current) use of insulin; Z96.643 Presence of artificial hip joint, bilateral; G47.33 Obstructive sleep apnea (adult) (pediatric); D50.0 Iron deficiency anemia secondary to blood loss (chronic); R31.9 Hematuria, unspecified; R07.89 Other chest pain; E11.649 Type 2 diabetes mellitus with hypoglycemia without coma; B96.20 Unspecified Escherichia coli [E. coli] as the cause of diseases classified elsewhere; K59.00 Constipation, unspecified; Z99.81 Dependence on supplemental oxygen; N20.0 Calculus of kidney; Z88.0 Allergy status to penicillin; Z88.8 Allergy status to other drugs, medicaments and biological substances; Z79.82 Long term (current) use of aspirin; Z79.899 Other long term (current) drug therapy; Z98.41 Cataract extraction status, right eye; Z98.42 Cataract extraction status, left eye

== ENCOUNTER → 2022-08-04 | Outpatient (CLI) | payer MEDICARE ==
[~2022-08-04] MED LIST changes: +ALBU8.5H INH; +CARV3.12 PO; +CARV6.25 PO; +CEFD300C41 PO; +DOCU100C16 PO; +HYDR-3716 PO; +ISOS1TAB36 PO; +LIDO5CRE6 TOP; +LIDO5TD TD; +META1POW PO; +MIRA1POW3 PO; +OXYB10TA23 PO; +OXYB5TAB10 PO; +SUCR1TA PO; +SYMB16INH INH
[2022-08-04 14:19] LABS: BILIRUBIN,TOTAL 0.4 MG/DL (0.2-1.0); CALCIUM LEVEL 8.1 MG/DL (8.8-10.2); CREATININE FOR GFR 2.62 MG/DL (0.55-1.30); GLOMERULAR FILTRATION RATE 19.4 (>45); PERCENT SATURATION 11.3 % (13.2-45.0); POTASSIUM SERUM 4.5 MEQ/L (3.5-5.1); TOTAL PROTEIN 6.3 GM/DL (6.4-8.2)
== END ==
LOC: M PLALAB 11:17
PROVIDERS: ATTEND Physician Assistant
DX: D50.8 Other iron deficiency anemias (principal)

== ENCOUNTER → 2022-08-04 | Outpatient (CLI) | payer MEDICARE ==
[2022-08-04 13:31] LABS: HEMOGLOBIN 8.7 g/dl (12.0-15.5); MEAN CORPUSCULAR HEMOGLOBIN 27.5 pg (27.0-33.0); MEAN CORPUSCULAR VOLUME 91.8 fl (80.0-96.0); PLATELET COUNT, AUTOMATED 241 10^3/uL (150-450); RED BLOOD COUNT 3.16 10^6/uL (4.00-5.40); WHITE BLOOD COUNT 6.5 10^3/uL (4.0-10.0)
[2022-08-04 13:58] LABS: APPEARANCE, URINE MANUAL HAZY (CLEAR); BILIRUBIN, URINE MANUAL NEGATIVE (NEGATIVE); BLOOD URINE MANUAL POSITIVE (NEGATIVE); COLOR, URINE MANUAL YELLOW (YELLOW); GLUCOSE, URINE (UA) MANUAL NEGATIVE (NEGATIVE); KETONE, URINE MANUAL NEGATIVE (NEGATIVE); LEUKOCYTE ESTERASE, URINE MAN POSITIVE (NEGATIVE); NITRITE, URINE MANUAL NEGATIVE (NEGATIVE); PROTEIN, URINE MANUAL 2+ mg/dL (NEGATIVE); SPECIFIC GRAVITY,URINE MANUAL 1.015 (1.002-1.035); UROBILINOGEN, URINE MANUAL NORMAL (NORMAL)
[2022-08-04 14:11] LABS: INR 1.02; PARTIAL THROMBOPLASTIN TIME 27.9 SECONDS (24.8-34.2); PROTHROMBIN TIME 13.6 SECONDS (12.5-14.5)
[2022-08-04 14:19] LABS: CREATININE FOR GFR 2.59 MG/DL (0.55-1.30)
[2022-08-04 14:20] LABS: CALCIUM LEVEL 8.1 MG/DL (8.8-10.2); GLOMERULAR FILTRATION RATE 19.6 (>45); POTASSIUM SERUM 4.5 MEQ/L (3.5-5.1)
[2022-08-04 14:27] LABS: RBC, URINE 20-30 /hpf (0-3); WBC, URINE 15-20 /hpf (0-3)
[2022-08-04 14:28] LABS: BACTERIA, URINE SMALL AMOUNT; HYALINE CAST, URINE NONE SEEN /lpf (0-1); MUCUS, URINE LARGE AMOUNT (NEGATIVE); SQUAMOUS EPITHELIAL CELL URINE LARGE AMOUNT /hpf (SMALL AMT)
== END ==
LOC: M PLALAB 11:15
PROVIDERS: ATTEND Nurse Practitioner Women's Health
DX: Z01.818 Encounter for other preprocedural examination (principal); N20.0 Calculus of kidney

== ENCOUNTER → 2022-08-08 | Outpatient (CLI) | payer MEDICARE | LOC: M RAD 09:10 | PROVIDERS: ATTEND Internal Medicine Nephrology | DX: N20.0 Calculus of kidney (principal) ==

== ENCOUNTER → 2022-08-08 | Outpatient (CLI) | payer MEDICARE | LOC: M PLAIMG 11:13 | PROVIDERS: ATTEND Physician Assistant | DX: R05.2 Subacute cough (principal) ==

== ENCOUNTER → 2022-08-21 | Outpatient (CLI) | payer MEDICARE ==
[~2022-08-21] MED LIST changes: -OXYB10TA23 PO
[2022-08-21 18:49] LABS: APPEARANCE, URINE MANUAL CLOUDY (CLEAR); COLOR, URINE MANUAL YELLOW (YELLOW)
[2022-08-21 18:50] LABS: BILIRUBIN, URINE MANUAL NEGATIVE (NEGATIVE); BLOOD URINE MANUAL POSITIVE (NEGATIVE); GLUCOSE, URINE (UA) MANUAL NEGATIVE (NEGATIVE); KETONE, URINE MANUAL NEGATIVE (NEGATIVE); LEUKOCYTE ESTERASE, URINE MAN POSITIVE (NEGATIVE); NITRITE, URINE MANUAL NEGATIVE (NEGATIVE); PROTEIN, URINE MANUAL 3+ mg/dL (NEGATIVE); UROBILINOGEN, URINE MANUAL NORMAL (NORMAL)
[2022-08-21 18:51] LABS: BASO % 0.3 % (0.0-1.0); EOS # 0.3 10^3/uL (0.0-0.5); EOS % 2.8 % (0.0-3.0); HEMATOCRIT 29.8 % (36.0-47.0); LYMPH # 0.9 10^3/uL (1.5-5.0); LYMPH % 9.3 % (24.0-44.0); MEAN CORPUSCULAR HEMOGLOBIN 27.1 pg (27.0-33.0); MEAN CORPUSCULAR HGB CONC 30.2 g/dl (32.0-36.5); MEAN CORPUSCULAR VOLUME 89.8 fl (80.0-96.0); MONO # 0.5 10^3/uL (0.0-0.8); MONO % 4.8 % (2.0-8.0); NEUTROPHILS # 8.3 10^3/uL (1.5-8.5); NEUTROPHILS % 82.2 % (36.0-66.0); PLATELET COUNT, AUTOMATED 288 10^3/uL (150-450); RED BLOOD COUNT 3.32 10^6/uL (4.00-5.40); WHITE BLOOD COUNT 10.1 10^3/uL (4.0-10.0)
[2022-08-21 19:02] LABS: INR 1.08; PROTHROMBIN TIME 14.2 SECONDS (12.5-14.5)
[2022-08-21 19:03] LABS: PARTIAL THROMBOPLASTIN TIME 29.9 SECONDS (24.8-34.2)
[2022-08-21 19:14] LABS: ALBUMIN 2.7 G/DL (3.2-5.2); BILIRUBIN,TOTAL 0.2 MG/DL (0.3-1.2); CALCIUM LEVEL 7.8 MG/DL (8.3-10.6); CREATININE FOR GFR 2.89 MG/DL (0.55-1.30); GLOMERULAR FILTRATION RATE 17.3 (>45); POTASSIUM SERUM 4.4 MMOL/L (3.5-5.1); TOTAL PROTEIN 6.5 G/DL (5.7-8.2)
[2022-08-21 19:48] LABS: RBC, URINE TNTC /hpf (0-3); WBC, URINE TNTC /hpf (0-3)
[2022-08-21 19:49] LABS: SQUAMOUS EPITHELIAL CELL URINE SMALL AMOUNT /hpf (SMALL AMT)
[2022-08-21 19:50] LABS: BACTERIA, URINE LARGE AMOUNT; HYALINE CAST, URINE NONE SEEN /lpf (0-1)
== END ==
LOC: M LAB 17:23
PROVIDERS: ATTEND Family Medicine
DX: I10 Essential (primary) hypertension (principal); Z79.899 Other long term (current) drug therapy

== ENCOUNTER 2022-08-22 13:16 | Emergency (ER) | payer MEDICARE ==
[~2022-08-22] VITALS: Ht 149.9 cm; Wt 91.8 kg
[~2022-08-22 13:16] MED LIST changes: -CEFD300C41 PO; -HYDR-3716 PO; -OXYB5TAB10 PO
[2022-08-22 15:49] LABS: HEMATOCRIT 27.8 % (36.0-47.0); HEMOGLOBIN 8.3 g/dl (12.0-15.5); MEAN CORPUSCULAR HGB CONC 29.9 g/dl (32.0-36.5); MEAN CORPUSCULAR VOLUME 90.6 fl (80.0-96.0); PLATELET COUNT, AUTOMATED 322 10^3/uL (150-450); RED BLOOD COUNT 3.07 10^6/uL (4.00-5.40); WHITE BLOOD COUNT 9.9 10^3/uL (4.0-10.0)
[2022-08-22 16:08] LABS: ALBUMIN 2.4 G/DL (3.2-5.2); ALT/SGPT < 9 U/L (7.0-40); BILIRUBIN,TOTAL 0.2 MG/DL (0.3-1.2); BLOOD UREA NITROGEN 63 MG/DL (9-23); CALCIUM LEVEL 8.2 MG/DL (8.3-10.6); CARBON DIOXIDE LEVEL 24 MMOL/L (20-31); CHLORIDE LEVEL 106 MMOL/L (98-107); GLUCOSE, FASTING 257 MG/DL (74-106); POTASSIUM SERUM 4.4 MMOL/L (3.5-5.1); SODIUM LEVEL 139 MMOL/L (136-145); TOTAL PROTEIN 6.1 G/DL (5.7-8.2)
[2022-08-22 18:26] LABS: RSV AMPLIFICATION NEGATIVE (NEGATIVE)
[2022-08-22] MEDS ORDERED: CEFD300C41 PO (18:55)
[2022-08-22 19:13] VITALS: BP 175/75
== END 2022-08-22 19:14 | disposition home or self-care (01) ==
LOC: M ED 13:16
DX: N20.0 Calculus of kidney (principal); I13.0 Hypertensive heart and chronic kidney disease with heart failure and stage 1 through stage 4 chronic kidney disease, or unspecified chronic kidney disease; N18.4 Chronic kidney disease, stage 4 (severe); I50.9 Heart failure, unspecified; E11.22 Type 2 diabetes mellitus with diabetic chronic kidney disease; E78.5 Hyperlipidemia, unspecified; J44.9 Chronic obstructive pulmonary disease, unspecified; G47.33 Obstructive sleep apnea (adult) (pediatric); D50.9 Iron deficiency anemia, unspecified; Z79.4 Long term (current) use of insulin; Z79.82 Long term (current) use of aspirin; Z79.51 Long term (current) use of inhaled steroids; Z79.899 Other long term (current) drug therapy; Z88.0 Allergy status to penicillin; Z88.1 Allergy status to other antibiotic agents; Z87.891 Personal history of nicotine dependence; Z87.442 Personal history of urinary calculi; Z87.440 Personal history of urinary (tract) infections; Z86.19 Personal history of other infectious and parasitic diseases; Z98.890 Other specified postprocedural states

== ENCOUNTER → 2022-08-27 | Outpatient (CLI) | payer MEDICARE ==
[~2022-08-27] MED LIST changes: +CEFD300C41 PO; +HYDR-3716 PO; +OXYB5TAB10 PO
== END ==
LOC: M LABSMTC 11:11
PROVIDERS: ATTEND Anesthesiology
DX: Z20.828 Contact with and (suspected) exposure to other viral communicable diseases (principal); Z11.59 Encounter for screening for other viral diseases

== ENCOUNTER → 2022-08-31 | Outpatient (CLI) | payer MEDICARE ==
[~2022-08-31] MED LIST changes: +OXYB10TA23 PO
[2022-08-31 15:33] LABS: BASO % 0.5 % (0.0-1.0); EOS # 0.4 10^3/uL (0.0-0.5); EOS % 4.9 % (0.0-3.0); HEMATOCRIT 27.2 % (36.0-47.0); HEMOGLOBIN 8.3 g/dl (12.0-15.5); LYMPH # 1.2 10^3/uL (1.5-5.0); LYMPH % 14.2 % (24.0-44.0); MEAN CORPUSCULAR HEMOGLOBIN 26.3 pg (27.0-33.0); MEAN CORPUSCULAR HGB CONC 30.5 g/dl (32.0-36.5); MEAN CORPUSCULAR VOLUME 86.3 fl (80.0-96.0); MONO # 0.7 10^3/uL (0.0-0.8); MONO % 7.9 % (2.0-8.0); NEUTROPHILS # 6.3 10^3/uL (1.5-8.5); PLATELET COUNT, AUTOMATED 278 10^3/uL (150-450); RED BLOOD COUNT 3.15 10^6/uL (4.00-5.40); WHITE BLOOD COUNT 8.7 10^3/uL (4.0-10.0)
[2022-08-31 16:12] LABS: ALBUMIN 2.7 G/DL (3.2-5.2); AST/SGOT 7.99999 U/L (<34); BILIRUBIN,TOTAL 0.2 MG/DL (0.3-1.2); CALCIUM LEVEL 8.2 MG/DL (8.3-10.6); CREATININE FOR GFR 3.04 MG/DL (0.55-1.30); GLOMERULAR FILTRATION RATE 16.3 (>45); POTASSIUM SERUM 4.6 MMOL/L (3.5-5.1); TOTAL PROTEIN 6.3 G/DL (5.7-8.2)
== END ==
LOC: M LAB 14:51
PROVIDERS: ATTEND Urology
DX: N18.4 Chronic kidney disease, stage 4 (severe) (principal)

== ENCOUNTER 2022-09-01 10:40 | Day surgery (SDC) | payer MEDICARE ==
[~2022-09-01] VITALS: Ht 149.9 cm; Wt 91.6 kg
[~2022-09-01 10:40] MED LIST changes: +CIPROFLOXACIN 400 MG in IV 1 EA IV ONE; -OXYB10TA23 PO
[2022-09-01] MEDS ORDERED: MIDAZOLAM INJ 2MG/2ML VIAL As Ordered ONE (13:07)
[2022-09-01] MEDS ORDERED: propofoL 200 MG/20 ML VIAL As Ordered ONE (13:07)
[2022-09-01] MEDS ORDERED: ONDANSETRON 4MG 2ML VIAL As Ordered ONE (13:07)
[2022-09-01] MEDS ORDERED: ROCURONIUM BROMIDE 50MG/5ML VIAL As Ordered ONE (13:07)
[2022-09-01] MEDS ORDERED: LIDOCAINE 2% 100MG/5ML SDV (FOR ANES.) As Ordered ONE (13:07)
[2022-09-01] MEDS ORDERED: fentaNYL 100 MCG/2 ML INJECTION As Ordered ONE (13:07)
[2022-09-01] MEDS ORDERED: ISOVUE-300 61% 50ML VIAL As Ordered ONE (13:09)
[2022-09-01] MEDS ORDERED: LR 1,000 ML IV SCH (15:10)
[2022-09-01] MEDS ORDERED: fentaNYL 100 MCG/2 ML INJECTION IV PRN (15:10)
[2022-09-01] MEDS ORDERED: ONDANSETRON 4MG 2ML VIAL IV PRN (15:10)
[2022-09-01] MEDS ORDERED: OXYB10TA23 PO (15:11)
[2022-09-01] MEDS ORDERED: LABETALOL 100MG/20ML VIAL As Ordered ONE (15:37)
[2022-09-01] MEDS: LABETALOL 100MG/20ML VIAL IV PRN ×2 (15:49→15:54)
[2022-09-01] MEDS: HYDROMORPHONE HCL 0.5 MG/ 0.5 ML SYRINGE IV PRN ×4 (15:50→16:29)
[2022-09-01] MEDS: oxyCODONE 5MG TAB PO PRN ×2 (16:08→16:36)
[2022-09-01] MEDS ORDERED: INSULIN LISPRO (NovoLOG) PER UNIT SC SCH (17:30)
[2022-09-01 17:50] VITALS: BP 117/56
[2022-09-01] MEDS ORDERED: GLUCAGON INJ 1MG VIAL SC PRN (17:50)
[2022-09-01] MEDS ORDERED: GLUCOSE 4GM CHEW TABLET PO PRN (17:50)
[2022-09-01] MEDS ORDERED: DEXTROSE 50% 50ML SYRINGE IV PRN (17:50)
[2022-09-01] MEDS ORDERED: PERCOCET 5MG/325MG TAB PO PRN (17:55)
[2022-09-08 14:08] LABS: Ca Ox Monohydrate 20 % (.); Uric Acid 80 % (.)
== END 2022-09-01 18:20 | disposition home or self-care (01) ==
LOC: M SDC 10:40
PROVIDERS: ATTEND Urology
DX: N20.0 Calculus of kidney (principal); I50.9 Heart failure, unspecified; I11.0 Hypertensive heart disease with heart failure; N18.4 Chronic kidney disease, stage 4 (severe); E78.5 Hyperlipidemia, unspecified; F41.9 Anxiety disorder, unspecified; Z79.82 Long term (current) use of aspirin; Z79.899 Other long term (current) drug therapy; G47.33 Obstructive sleep apnea (adult) (pediatric); Z79.4 Long term (current) use of insulin; E11.9 Type 2 diabetes mellitus without complications
CPT/HCPCS: 52356; 74420; 82365; C1769; C2617; J1100; J1815; J2405; Q9967

== ENCOUNTER → 2022-09-06 | Outpatient (CLI) | payer MEDICARE ==
[~2022-09-06] MED LIST changes: -CIPROFLOXACIN 400 MG in IV 1 EA IV ONE; +OXYB10TA23 PO
== END ==
LOC: M RAD 09-05 16:25
PROVIDERS: ATTEND Internal Medicine Nephrology
DX: N17.9 Acute kidney failure, unspecified (principal); Z96.0 Presence of urogenital implants

== ENCOUNTER → 2022-10-05 | Outpatient (REF) | payer MEDICARE | LOC: M SFHCPLAZ 10:48 | PROVIDERS: ATTEND Physician Assistant | DX: Z53.9 Procedure and treatment not carried out, unspecified reason (principal) ==

== ENCOUNTER → 2022-11-16 | Outpatient (CLI) | payer MEDICARE | LOC: M PLAIMG 10:55 | PROVIDERS: ATTEND Physician Assistant | DX: R05.1 Acute cough (principal) ==

== ENCOUNTER → 2022-11-16 | Outpatient (CLI) | payer MEDICARE ==
[2022-11-16 15:34] LABS: CHOLESTEROL RISK RATIO 5.7 (<5); LDL CHOLESTEROL 152.8 MG/DL (<100)
== END ==
LOC: M PLALAB 10:53
PROVIDERS: ATTEND Nurse Practitioner Family
DX: E78.2 Mixed hyperlipidemia (principal)

== ENCOUNTER → 2022-12-06 | Outpatient (CLI) | payer MEDICARE ==
[~2022-12-06] MED LIST changes: +INSU100I6 SC; -LEVE1INJ5 SC
[2022-12-06 11:45] LABS: HEMOGLOBIN A1c 5.5 % (4.0-6.0)
== END ==
LOC: M PLALAB 08:40
PROVIDERS: ATTEND Physician Assistant
DX: R30.0 Dysuria (principal); E11.9 Type 2 diabetes mellitus without complications

== ENCOUNTER → 2023-01-22 | Outpatient (CLI) | payer MEDICARE ==
[~2023-01-22] MED LIST changes: +FLUT50SP17; -FLUTISP
== END ==
LOC: M PLALAB 13:49
PROVIDERS: ATTEND Psychiatry & Neurology Neurology
DX: G95.9 Disease of spinal cord, unspecified (principal)

== ENCOUNTER → 2023-01-22 | Outpatient (CLI) | payer MEDICARE | LOC: M WHC 12:46 | PROVIDERS: ATTEND Physician Assistant | DX: R92.8 Other abnormal and inconclusive findings on diagnostic imaging of breast (principal); G95.9 Disease of spinal cord, unspecified | CPT/HCPCS: 36415; 77065; 82525; 82607; 83921; G0279 ==

== ENCOUNTER 2023-03-29 18:50 | Inpatient (IN) | payer MEDICARE ==
[~2023-03-29] VITALS: Ht 149.9 cm; Wt 91.1 kg
[~2023-03-29 18:50] MED LIST changes: -ALLO100T PO; -ATOR40TA75 PO; -CARB-113 PO; -DARI7.5T11 PO; -HYDR-3911 PO; -LEXA1TAB PO; -META28.32 PO; -NITR4TASL SL; -SODI650T PO; -TORS20TA2 PO
[2023-03-29] MEDS ORDERED: ASPIRIN 81MG CHEW TABLET PO ONE (20:00)
[2023-03-29] MEDS ORDERED: SYMBICORT 160/4.5MCG INHALER 6GM INH SCH (20:00)
[2023-03-29] MEDS ORDERED: LEVEMIR (INSULIN DETEMIR) 1 UNITS/0.01ML SC SCH (21:00)
[2023-03-29 21:26] LABS: BASO % 0.2 % (0.0-1.0); EOS # 0.2 10^3/uL (0.0-0.5); EOS % 2.4 % (0.0-3.0); HEMATOCRIT 23.8 % (36.0-47.0); HEMOGLOBIN 7.2 g/dl (12.0-15.5); LYMPH # 0.7 10^3/uL (1.5-5.0); LYMPH % 7.4 % (24.0-44.0); MEAN CORPUSCULAR HEMOGLOBIN 28.1 pg (27.0-33.0); MEAN CORPUSCULAR HGB CONC 30.3 g/dl (32.0-36.5); MONO # 0.5 10^3/uL (0.0-0.8); MONO % 5.9 % (2.0-8.0); NEUTROPHILS # 7.5 10^3/uL (1.5-8.5); NEUTROPHILS % 83.9 % (36.0-66.0); PLATELET COUNT, AUTOMATED 176 10^3/uL (150-450); RED BLOOD COUNT 2.56 10^6/uL (4.00-5.40); WHITE BLOOD COUNT 8.9 10^3/uL (4.0-10.0)
[2023-03-29 21:36] LABS: CK-MB VALUE MASS 2.3 NG/ML (<3.6)
[2023-03-29 21:38] LABS: CPK CREATINE PHOSPHOKINASE 67 U/L (34-145); MB/CK RELATIVE INDEX 3.43 (< OR =4)
[2023-03-29 21:40] LABS: THYROID STIMULATING HORMONE 2.702 uIU/ML (0.55-4.78)
[2023-03-29 21:52] LABS: ALKALINE PHOSPHATASE 64 U/L (46-116); ALT/SGPT 23 U/L (7.0-40); AST/SGOT 15 U/L (<34); BILIRUBIN,DIRECT < 0.1 MG/DL (<0.4); BILIRUBIN,TOTAL 0.4 MG/DL (0.3-1.2); BLOOD UREA NITROGEN 75 MG/DL (9-23); CALCIUM LEVEL 7.5 MG/DL (8.3-10.6); CARBON DIOXIDE LEVEL 26 MMOL/L (20-31); CHLORIDE LEVEL 112 MMOL/L (98-107); CREATININE FOR GFR 2.96 MG/DL (0.55-1.30); GLOMERULAR FILTRATION RATE 16.8 (>45); GLUCOSE, FASTING 115 MG/DL (74-106); POTASSIUM SERUM 4.5 MMOL/L (3.5-5.1); SODIUM LEVEL 145 MMOL/L (136-145); TOTAL PROTEIN 5.4 G/DL (5.7-8.2)
[2023-03-29 22:50] LABS: CK-MB VALUE MASS 2.1 NG/ML (<3.6)
[2023-03-29 22:59] LABS: MB/CK RELATIVE INDEX 3.04 (< OR =4)
[2023-03-30] VITALS (20 sets, daily range): BP systolic 158–178; BP diastolic 62–86; TEMP 96.8–98.1; O2SAT 91–97
[2023-03-30] MEDS ORDERED: LEXA1TAB PO (00:41)
[2023-03-30] MEDS ORDERED: HYDR-3911 PO (00:41)
[2023-03-30] MEDS ORDERED: DARI7.5T11 PO (00:41)
[2023-03-30] MEDS ORDERED: CARB-113 PO (00:41)
[2023-03-30] MEDS ORDERED: GABA-1171 PO (00:41)
[2023-03-30] MEDS ORDERED: NITR4TASL SL (00:41)
[2023-03-30] MEDS ORDERED: TORS20TA2 PO (00:41)
[2023-03-30] MEDS ORDERED: SODI650T PO (00:41)
[2023-03-30] MEDS ORDERED: ALLO100T PO (00:41)
[2023-03-30] MEDS ORDERED: CALC1CAP31 PO (00:41)
[2023-03-30] MEDS ORDERED: MIRA1POW3 PO (00:41)
[2023-03-30] MEDS ORDERED: ATOR40TA75 PO (00:41)
[2023-03-30] MEDS ORDERED: META28.32 PO (00:41)
[2023-03-30] MEDS ORDERED: FERR32TA PO (00:41)
[2023-03-30] MEDS ORDERED: HOME MED LIST COMPLETE! XX SCH (00:45)
[2023-03-30] MEDS ORDERED: ALBUTEROL SULFATE 2.5MG/0.5ML INH NEB SOLN NEB PRN (01:45)
[2023-03-30] MEDS ORDERED: METAMUCIL (PSYLLIUM) PACKET PO PRN (01:45)
[2023-03-30] MEDS ORDERED: NITROGLYCERIN 0.4MG SUBL TABLET SL PRN (01:45)
[2023-03-30] MEDS ORDERED: DOCUSATE SODIUM 100MG CAPSULE PO PRN (01:45)
[2023-03-30] MEDS ORDERED: ONDANSETRON 4MG ORAL DISINTEGRATING TAB PO PRN (01:45)
[2023-03-30] MEDS ORDERED: MIRALAX *UNIT DOSE* 17GM PACKET PO PRN (01:45)
[2023-03-30] MEDS ORDERED: DEXTROSE 50% 50ML SYRINGE IV PRN (02:20)
[2023-03-30] MEDS ORDERED: GLUCOSE 4GM CHEW TABLET PO PRN (02:20)
[2023-03-30] MEDS ORDERED: GLUCAGON INJ 1MG VIAL SC PRN (02:20)
[2023-03-30] MEDS: IPRATROPIUM 0.5MG/ALBUTEROL 2.5MG INH SOL UD 3ML (DUONEB) NEB SCH ×4 (02:52→19:49)
[2023-03-30 03:30] LABS: FERRITIN 171.9 NG/ML (7.3-270.7)
[2023-03-30] MEDS: ESCITALOPRAM OXALATE 10 MG TAB (LEXAPRO) PO SCH ×2 (03:37→20:16)
[2023-03-30] MEDS: ATORVASTATIN 20 MG TAB PO SCH ×2 (03:37→20:16)
[2023-03-30] MEDS: EZETIMIBE 10MG TABLET (ZETIA) PO SCH ×2 (03:38→20:16)
[2023-03-30] MEDS ORDERED: FUROSEMIDE 20MG/2ML VIAL IV ONE (04:00)
[2023-03-30 04:02] LABS: BASO % 0.1 % (0.0-1.0); EOS # 0.2 10^3/uL (0.0-0.5); EOS % 3.1 % (0.0-3.0); HEMATOCRIT 25.1 % (36.0-47.0); HEMOGLOBIN 7.6 g/dl (12.0-15.5); LYMPH # 0.9 10^3/uL (1.5-5.0); LYMPH % 12.2 % (24.0-44.0); MEAN CORPUSCULAR HEMOGLOBIN 28.4 pg (27.0-33.0); MEAN CORPUSCULAR HGB CONC 30.3 g/dl (32.0-36.5); MEAN CORPUSCULAR VOLUME 93.7 fl (80.0-96.0); MONO # 0.5 10^3/uL (0.0-0.8); MONO % 7.5 % (2.0-8.0); NEUTROPHILS # 5.4 10^3/uL (1.5-8.5); NEUTROPHILS % 76.8 % (36.0-66.0); PLATELET COUNT, AUTOMATED 160 10^3/uL (150-450); RED BLOOD COUNT 2.68 10^6/uL (4.00-5.40); WHITE BLOOD COUNT 7.1 10^3/uL (4.0-10.0)
[2023-03-30] MEDS ORDERED: HEPARIN SOD (PORCINE) 5000UNITS/ML 1ML VIAL/SYRINGE SC SCH (06:00)
[2023-03-30] MEDS ORDERED: amLODIPine 5 MG TAB PO ONE (07:00)
[2023-03-30] MEDS: SYMBICORT 160/4.5MCG INHALER 6GM INH SCH ×2 (07:15→19:50)
[2023-03-30] MEDS ORDERED: FUROSEMIDE 40MG/4ML VIAL IV SCH (09:00)
[2023-03-30] MEDS ORDERED: TORSEMIDE 20 MG TAB PO SCH (09:00)
[2023-03-30] MEDS ORDERED: CHLORTHALIDONE 12.5MG PER 1/2 TABLET PO SCH (09:00)
[2023-03-30] MEDS: SODIUM BICARBONATE 325 MG TAB PO SCH ×3 (09:11→16:27)
[2023-03-30] MEDS: LIDOCAINE 5% (LIDODERM) PATCH TOP SCH (09:11)
[2023-03-30] MEDS: ASPIRIN 81MG ENTERIC TABLET PO SCH (09:11)
[2023-03-30] MEDS: FERROUS GLUCONATE 324 MG TAB PO SCH ×2 (09:12→20:16)
[2023-03-30] MEDS: GABAPENTIN 100 MG CAP PO SCH ×3 (09:12→20:16)
[2023-03-30] MEDS: PANTOPRAZOLE 40MG TAB (PROTONIX) PO SCH (09:12)
[2023-03-30] MEDS: **hydrALAZINE** 50 MG TAB PO SCH ×2 (09:12→20:16)
[2023-03-30] MEDS: ISOSORBIDE MON. (IMDUR) 60MG XR TAB PO SCH (09:12)
[2023-03-30] MEDS: allopurinoL 100 MG TAB PO SCH (09:13)
[2023-03-30] MEDS: SINEMET 25-100 MG TAB PO SCH ×3 (09:13→16:27)
[2023-03-30] MEDS: INSULIN LISPRO (NovoLOG) PER UNIT SC SCH ×3 (09:42→18:00)
[2023-03-30] MEDS: FUROSEMIDE 100MG/10ML VIAL IV SCH ×2 (12:04→17:59)
[2023-03-30] MEDS: predniSONE 20 MG TAB PO SCH (12:05)
[2023-03-30] MEDS ORDERED: FERRIC CARBOXYMALTOSE INJ 750 MG, VIAL MATE ADAPTER 1 EACH in NS 250 ML IV ONE (13:00)
[2023-03-30 14:20] LABS: HEMATOCRIT 30.1 % (36.0-47.0); HEMOGLOBIN 9.2 g/dl (12.0-15.5)
[2023-03-30 14:42] LABS: CALCIUM LEVEL 8.5 MG/DL (8.3-10.6); CREATININE FOR GFR 2.78 MG/DL (0.55-1.30); GLOMERULAR FILTRATION RATE 18.1 (>45)
[2023-03-30] MEDS: HEPARIN SOD (PORCINE) 5000UNITS/ML 1ML VIAL/SYRINGE SC SCH (18:00)
[2023-03-30] MEDS ORDERED: INSULIN LISPRO (NovoLOG) PER UNIT SC SCH (21:00)
[2023-03-30] MEDS ORDERED: LEVEMIR (INSULIN DETEMIR) 1 UNITS/0.01ML SC SCH (21:00)
[2023-03-31] MEDS: IPRATROPIUM 0.5MG/ALBUTEROL 2.5MG INH SOL UD 3ML (DUONEB) NEB SCH ×4 (02:17→20:00)
[2023-03-31 04:36] VITALS: BP 150/68; TEMP 96.3; O2SAT 96
[2023-03-31] MEDS: HEPARIN SOD (PORCINE) 5000UNITS/ML 1ML VIAL/SYRINGE SC SCH ×2 (05:09→17:36)
[2023-03-31 05:43] LABS: BASO % 0.1 % (0.0-1.0); HEMOGLOBIN 8.4 g/dl (12.0-15.5); LYMPH # 0.2 10^3/uL (1.5-5.0); LYMPH % 3.1 % (24.0-44.0); MEAN CORPUSCULAR HEMOGLOBIN 28.2 pg (27.0-33.0); MEAN CORPUSCULAR HGB CONC 31.1 g/dl (32.0-36.5); MEAN CORPUSCULAR VOLUME 90.6 fl (80.0-96.0); MONO # 0.3 10^3/uL (0.0-0.8); MONO % 4.3 % (2.0-8.0); NEUTROPHILS # 7.2 10^3/uL (1.5-8.5); NEUTROPHILS % 91.9 % (36.0-66.0); PLATELET COUNT, AUTOMATED 159 10^3/uL (150-450); RED BLOOD COUNT 2.98 10^6/uL (4.00-5.40); WHITE BLOOD COUNT 7.8 10^3/uL (4.0-10.0)
[2023-03-31 05:57] LABS: CALCIUM LEVEL 8.4 MG/DL (8.3-10.6); GLOMERULAR FILTRATION RATE 16.6 (>45); POTASSIUM SERUM 4.5 MMOL/L (3.5-5.1)
[2023-03-31 08:15] VITALS: BP 140/70; TEMP 97.9; O2SAT 92
[2023-03-31] MEDS: SYMBICORT 160/4.5MCG INHALER 6GM INH SCH ×2 (08:25→20:04)
[2023-03-31] MEDS: SENOKOT S TAB PO SCH ×2 (08:58→20:02)
[2023-03-31] MEDS: FERROUS GLUCONATE 324 MG TAB PO SCH ×2 (08:58→20:01)
[2023-03-31] MEDS: allopurinoL 100 MG TAB PO SCH (08:58)
[2023-03-31] MEDS: GABAPENTIN 100 MG CAP PO SCH ×3 (08:58→20:02)
[2023-03-31] MEDS: predniSONE 20 MG TAB PO SCH (08:58)
[2023-03-31] MEDS: SODIUM BICARBONATE 325 MG TAB PO SCH ×3 (08:58→17:36)
[2023-03-31] MEDS: PANTOPRAZOLE 40MG TAB (PROTONIX) PO SCH (08:58)
[2023-03-31] MEDS: ASPIRIN 81MG ENTERIC TABLET PO SCH (08:58)
[2023-03-31] MEDS: SINEMET 25-100 MG TAB PO SCH ×3 (08:58→17:36)
[2023-03-31] MEDS: ISOSORBIDE MON. (IMDUR) 60MG XR TAB PO SCH (08:59)
[2023-03-31] MEDS: LIDOCAINE 5% (LIDODERM) PATCH TOP SCH (09:00)
[2023-03-31] MEDS: INSULIN LISPRO (NovoLOG) PER UNIT SC SCH ×3 (09:00→17:35)
[2023-03-31] MEDS: FUROSEMIDE 100MG/10ML VIAL IV SCH ×2 (09:00→17:36)
[2023-03-31] MEDS ORDERED: DARBEPOETIN 100MCG/0.5ML *NON-DIALYSIS* SYRINGE SC SCH (09:00)
[2023-03-31] MEDS: **hydrALAZINE** 50 MG TAB PO SCH ×2 (09:02→20:02)
[2023-03-31] MEDS: LevoFLOXacin 250 MG TABLET PO SCH (12:41)
[2023-03-31 14:00] VITALS: BP 140/60; TEMP 98.1; O2SAT 92
[2023-03-31] MEDS: ATORVASTATIN 20 MG TAB PO SCH (20:02)
[2023-03-31] MEDS: EZETIMIBE 10MG TABLET (ZETIA) PO SCH (20:02)
[2023-03-31] MEDS: ESCITALOPRAM OXALATE 10 MG TAB (LEXAPRO) PO SCH (20:02)
[2023-03-31 20:12] VITALS: BP 138/70; TEMP 97.9; O2SAT 84
[2023-03-31] MEDS ORDERED: LEVEMIR (INSULIN DETEMIR) 1 UNITS/0.01ML SC SCH (21:00)
[2023-03-31] MEDS: NORCO, ANEXSIA 5/325MG TABLET (HYDROcodone/ACETAMINOPHEN) PO PRN (22:39)
[2023-04-01] MEDS: IPRATROPIUM 0.5MG/ALBUTEROL 2.5MG INH SOL UD 3ML (DUONEB) NEB SCH ×4 (01:10→19:19)
[2023-04-01] MEDS: LevoFLOXacin 250 MG TABLET PO SCH (05:35)
[2023-04-01] MEDS: HEPARIN SOD (PORCINE) 5000UNITS/ML 1ML VIAL/SYRINGE SC SCH ×2 (05:36→18:03)
[2023-04-01] MEDS: NORCO, ANEXSIA 5/325MG TABLET (HYDROcodone/ACETAMINOPHEN) PO PRN (05:36)
[2023-04-01 06:00] VITALS: BP 142/68; TEMP 97.7; O2SAT 93
[2023-04-01 06:05] LABS: BASO % 0.1 % (0.0-1.0); EOS % 0.2 % (0.0-3.0); HEMATOCRIT 26.2 % (36.0-47.0); HEMOGLOBIN 8.4 g/dl (12.0-15.5); LYMPH # 0.4 10^3/uL (1.5-5.0); LYMPH % 4.4 % (24.0-44.0); MEAN CORPUSCULAR HEMOGLOBIN 28.6 pg (27.0-33.0); MEAN CORPUSCULAR HGB CONC 32.1 g/dl (32.0-36.5); MEAN CORPUSCULAR VOLUME 89.1 fl (80.0-96.0); MONO # 0.6 10^3/uL (0.0-0.8); MONO % 5.8 % (2.0-8.0); NEUTROPHILS % 89.1 % (36.0-66.0); PLATELET COUNT, AUTOMATED 178 10^3/uL (150-450); RED BLOOD COUNT 2.94 10^6/uL (4.00-5.40); WHITE BLOOD COUNT 10.1 10^3/uL (4.0-10.0)
[2023-04-01 06:18] LABS: CREATININE FOR GFR 3.17 MG/DL (0.55-1.30); GLOMERULAR FILTRATION RATE 15.5 (>45); POTASSIUM SERUM 3.8 MMOL/L (3.5-5.1)
[2023-04-01] MEDS: SYMBICORT 160/4.5MCG INHALER 6GM INH SCH ×2 (07:55→19:19)
[2023-04-01] MEDS ORDERED: MIRALAX *UNIT DOSE* 17GM PACKET PO SCH (09:00)
[2023-04-01] MEDS: LIDOCAINE 5% (LIDODERM) PATCH TOP SCH (09:55)
[2023-04-01] MEDS: ASPIRIN 81MG ENTERIC TABLET PO SCH (09:56)
[2023-04-01] MEDS: SENOKOT S TAB PO SCH ×2 (09:56→20:02)
[2023-04-01] MEDS: allopurinoL 100 MG TAB PO SCH (09:56)
[2023-04-01] MEDS: PANTOPRAZOLE 40MG TAB (PROTONIX) PO SCH (09:56)
[2023-04-01] MEDS: GABAPENTIN 100 MG CAP PO SCH ×3 (09:56→20:02)
[2023-04-01] MEDS: FERROUS GLUCONATE 324 MG TAB PO SCH ×2 (09:56→20:03)
[2023-04-01] MEDS: FUROSEMIDE 100MG/10ML VIAL IV SCH (09:57)
[2023-04-01] MEDS: predniSONE 20 MG TAB PO SCH (09:57)
[2023-04-01] MEDS: INSULIN LISPRO (NovoLOG) PER UNIT SC SCH ×7 (09:58→18:07)
[2023-04-01] MEDS: ISOSORBIDE MON. (IMDUR) 60MG XR TAB PO SCH (09:59)
[2023-04-01] MEDS: **hydrALAZINE** 50 MG TAB PO SCH ×2 (09:59→20:03)
[2023-04-01] MEDS: SINEMET 25-100 MG TAB PO SCH ×3 (10:07→18:03)
[2023-04-01] MEDS: SODIUM BICARBONATE 325 MG TAB PO SCH ×3 (10:07→18:03)
[2023-04-01 13:24] LABS: HEMOGLOBIN A1c 6.2 % (4.0-6.0)
[2023-04-01 14:00] VITALS: BP 135/60; TEMP 97.9; O2SAT 95
[2023-04-01 15:53] VITALS: O2SAT 95
[2023-04-01] MEDS: TORSEMIDE 20 MG TAB PO SCH (18:03)
[2023-04-01 19:40] VITALS: BP 128/72; TEMP 97.9; O2SAT 97
[2023-04-01] MEDS: EZETIMIBE 10MG TABLET (ZETIA) PO SCH (20:02)
[2023-04-01] MEDS: ESCITALOPRAM OXALATE 10 MG TAB (LEXAPRO) PO SCH (20:03)
[2023-04-01] MEDS: ATORVASTATIN 20 MG TAB PO SCH (20:03)
[2023-04-01] MEDS: LEVEMIR (INSULIN DETEMIR) 1 UNITS/0.01ML SC SCH (22:13)
[2023-04-02] MEDS: IPRATROPIUM 0.5MG/ALBUTEROL 2.5MG INH SOL UD 3ML (DUONEB) NEB SCH ×4 (01:15→20:15)
[2023-04-02] MEDS: LevoFLOXacin 250 MG TABLET PO SCH (05:31)
[2023-04-02] MEDS: HEPARIN SOD (PORCINE) 5000UNITS/ML 1ML VIAL/SYRINGE SC SCH ×2 (05:31→17:19)
[2023-04-02 06:31] VITALS: BP 148/70; TEMP 97.9; O2SAT 96
[2023-04-02 06:31] LABS: BASO % 0.1 % (0.0-1.0); EOS % 0.1 % (0.0-3.0); HEMATOCRIT 27.3 % (36.0-47.0); HEMOGLOBIN 8.4 g/dl (12.0-15.5); LYMPH # 0.5 10^3/uL (1.5-5.0); LYMPH % 4.8 % (24.0-44.0); MEAN CORPUSCULAR HGB CONC 30.8 g/dl (32.0-36.5); MONO # 0.5 10^3/uL (0.0-0.8); MONO % 4.7 % (2.0-8.0); NEUTROPHILS # 9.3 10^3/uL (1.5-8.5); NEUTROPHILS % 89.7 % (36.0-66.0); PLATELET COUNT, AUTOMATED 189 10^3/uL (150-450); WHITE BLOOD COUNT 10.4 10^3/uL (4.0-10.0)
[2023-04-02 06:59] LABS: CALCIUM LEVEL 7.2 MG/DL (8.3-10.6); CREATININE FOR GFR 3.37 MG/DL (0.55-1.30); GLOMERULAR FILTRATION RATE 14.5 (>45); POTASSIUM SERUM 4.1 MMOL/L (3.5-5.1)
[2023-04-02] MEDS: SYMBICORT 160/4.5MCG INHALER 6GM INH SCH ×2 (07:54→20:15)
[2023-04-02] MEDS: MIRALAX *UNIT DOSE* 17GM PACKET PO SCH (08:17)
[2023-04-02] MEDS: LIDOCAINE 5% (LIDODERM) PATCH TOP SCH (08:17)
[2023-04-02] MEDS: INSULIN LISPRO (NovoLOG) PER UNIT SC SCH ×6 (08:18→17:21)
[2023-04-02] MEDS: GABAPENTIN 100 MG CAP PO SCH ×3 (08:19→20:18)
[2023-04-02] MEDS: **hydrALAZINE** 50 MG TAB PO SCH ×2 (08:19→20:22)
[2023-04-02] MEDS: SENOKOT S TAB PO SCH ×2 (08:19→20:18)
[2023-04-02] MEDS: predniSONE 10MG TAB PO SCH (08:19)
[2023-04-02] MEDS: ISOSORBIDE MON. (IMDUR) 60MG XR TAB PO SCH (08:19)
[2023-04-02] MEDS: SINEMET 25-100 MG TAB PO SCH ×3 (08:19→17:19)
[2023-04-02] MEDS: ASPIRIN 81MG ENTERIC TABLET PO SCH (08:19)
[2023-04-02] MEDS: SODIUM BICARBONATE 325 MG TAB PO SCH ×2 (08:20→20:18)
[2023-04-02] MEDS: PANTOPRAZOLE 40MG TAB (PROTONIX) PO SCH (08:20)
[2023-04-02] MEDS: allopurinoL 100 MG TAB PO SCH (08:20)
[2023-04-02] MEDS: TORSEMIDE 20 MG TAB PO SCH (08:20)
[2023-04-02] MEDS: FERROUS GLUCONATE 324 MG TAB PO SCH ×2 (08:20→20:19)
[2023-04-02 10:23] VITALS: O2SAT 91
[2023-04-02 14:00] VITALS: BP 154/74; TEMP 97.9; O2SAT 92
[2023-04-02] MEDS: ESCITALOPRAM OXALATE 10 MG TAB (LEXAPRO) PO SCH (20:18)
[2023-04-02] MEDS: ATORVASTATIN 20 MG TAB PO SCH (20:18)
[2023-04-02] MEDS: EZETIMIBE 10MG TABLET (ZETIA) PO SCH (20:19)
[2023-04-02 21:28] VITALS: BP 144/82; TEMP 98.2; O2SAT 91
[2023-04-02] MEDS: LEVEMIR (INSULIN DETEMIR) 1 UNITS/0.01ML SC SCH (21:37)
[2023-04-03] MEDS: IPRATROPIUM 0.5MG/ALBUTEROL 2.5MG INH SOL UD 3ML (DUONEB) NEB SCH ×2 (01:09→07:55)
[2023-04-03] MEDS: HEPARIN SOD (PORCINE) 5000UNITS/ML 1ML VIAL/SYRINGE SC SCH (05:33)
[2023-04-03 06:00] VITALS: BP 136/78; TEMP 97.6; O2SAT 94
[2023-04-03 06:15] LABS: BASO % 0.2 % (0.0-1.0); EOS # 0.1 10^3/uL (0.0-0.5); EOS % 0.7 % (0.0-3.0); HEMATOCRIT 27.5 % (36.0-47.0); HEMOGLOBIN 8.5 g/dl (12.0-15.5); LYMPH # 0.9 10^3/uL (1.5-5.0); LYMPH % 9.2 % (24.0-44.0); MEAN CORPUSCULAR HEMOGLOBIN 28.2 pg (27.0-33.0); MEAN CORPUSCULAR HGB CONC 30.9 g/dl (32.0-36.5); MEAN CORPUSCULAR VOLUME 91.4 fl (80.0-96.0); MONO # 0.8 10^3/uL (0.0-0.8); NEUTROPHILS # 7.6 10^3/uL (1.5-8.5); NEUTROPHILS % 79.7 % (36.0-66.0); PLATELET COUNT, AUTOMATED 182 10^3/uL (150-450); RED BLOOD COUNT 3.01 10^6/uL (4.00-5.40); WHITE BLOOD COUNT 9.5 10^3/uL (4.0-10.0)
[2023-04-03 06:43] LABS: CREATININE FOR GFR 3.26 MG/DL (0.55-1.30); GLOMERULAR FILTRATION RATE 15.1 (>45); POTASSIUM SERUM 4.1 MMOL/L (3.5-5.1)
[2023-04-03] MEDS ORDERED: BISACODYL 10MG SUPP PR PRN (07:40)
[2023-04-03] MEDS ORDERED: BISACODYL 10MG SUPP PR ONE (07:40)
[2023-04-03] MEDS: SYMBICORT 160/4.5MCG INHALER 6GM INH SCH (07:55)
[2023-04-03 08:00] VITALS: O2SAT 94
[2023-04-03] MEDS ORDERED: TORSEMIDE 20 MG TAB PO SCH (09:00)
[2023-04-03 09:30] VITALS: BP 115/59
[2023-04-03] MEDS: INSULIN LISPRO (NovoLOG) PER UNIT SC SCH ×4 (09:49→12:25)
[2023-04-03] MEDS: LIDOCAINE 5% (LIDODERM) PATCH TOP SCH (09:49)
[2023-04-03] MEDS: ASPIRIN 81MG ENTERIC TABLET PO SCH (09:50)
[2023-04-03] MEDS: PANTOPRAZOLE 40MG TAB (PROTONIX) PO SCH (09:50)
[2023-04-03] MEDS: SODIUM BICARBONATE 325 MG TAB PO SCH (09:50)
[2023-04-03] MEDS: FERROUS GLUCONATE 324 MG TAB PO SCH (09:50)
[2023-04-03] MEDS: MIRALAX *UNIT DOSE* 17GM PACKET PO SCH (09:50)
[2023-04-03] MEDS: GABAPENTIN 100 MG CAP PO SCH (09:56)
[2023-04-03] MEDS: predniSONE 10MG TAB PO SCH (09:56)
[2023-04-03] MEDS: allopurinoL 100 MG TAB PO SCH (09:56)
[2023-04-03] MEDS: SENOKOT S TAB PO SCH (09:56)
[2023-04-03] MEDS: SINEMET 25-100 MG TAB PO SCH ×2 (10:15→12:24)
[2023-04-03] MEDS ORDERED: SODI650T PO (11:33)
[2023-04-03] MEDS ORDERED: PRED10TA2 PO (11:33)
[2023-04-03] MEDS ORDERED: SENN8.6T28 PO (11:33)
[2023-04-03] MEDS ORDERED: VENTAER INH (11:33)
[2023-04-03] MEDS ORDERED: TORS20TA2 PO (11:33)
[2023-04-03 12:23] VITALS: BP 158/70
[2023-04-03] MEDS: ISOSORBIDE MON. (IMDUR) 60MG XR TAB PO SCH (12:23)
[2023-04-03] MEDS: **hydrALAZINE** 50 MG TAB PO SCH (12:24)
== END 2023-04-03 14:22 | disposition home or self-care (01) | DRG 811 ==
LOC: M ED 18:50 → M ED INP 23:43 → M PCU 03-30 03:16 → M MSPAV 03-31 07:54
PROVIDERS: ADMIT Internal Medicine; ATTEND Internal Medicine Nephrology
PROC: 30233N1 Transfusion of Nonautologous Red Blood Cells into Peripheral Vein, Percutaneous Approach (ICD-10-PCS; principal; 2023-03-30)
DX: D64.9 Anemia, unspecified (principal); I50.33 Acute on chronic diastolic (congestive) heart failure; Z68.41 Body mass index [BMI] 40.0-44.9, adult; I13.0 Hypertensive heart and chronic kidney disease with heart failure and stage 1 through stage 4 chronic kidney disease, or unspecified chronic kidney disease; N18.4 Chronic kidney disease, stage 4 (severe); J96.11 Chronic respiratory failure with hypoxia; J44.1 Chronic obstructive pulmonary disease with (acute) exacerbation; J45.901 Unspecified asthma with (acute) exacerbation; N39.0 Urinary tract infection, site not specified; E87.20 Acidosis, unspecified; E66.01 Morbid (severe) obesity due to excess calories; G20 Parkinson's disease; F32.A Depression, unspecified; E78.5 Hyperlipidemia, unspecified; K44.9 Diaphragmatic hernia without obstruction or gangrene; E61.1 Iron deficiency; G47.33 Obstructive sleep apnea (adult) (pediatric); E87.70 Fluid overload, unspecified; M10.9 Gout, unspecified; E11.40 Type 2 diabetes mellitus with diabetic neuropathy, unspecified; E11.22 Type 2 diabetes mellitus with diabetic chronic kidney disease; M19.90 Unspecified osteoarthritis, unspecified site; Z91.119 Patient's noncompliance with dietary regimen due to unspecified reason; E11.65 Type 2 diabetes mellitus with hyperglycemia; Z88.0 Allergy status to penicillin; Z88.8 Allergy status to other drugs, medicaments and biological substances; Z79.82 Long term (current) use of aspirin; Z79.899 Other long term (current) drug therapy; Z79.4 Long term (current) use of insulin; Z96.642 Presence of left artificial hip joint

== ENCOUNTER → 2023-03-29 | Outpatient (CLI) | payer MEDICARE ==
[~2023-03-29] MED LIST changes: +ALLO100T PO; +ATOR40TA75 PO; +CARB-113 PO; +DARI7.5T11 PO; +HYDR-3911 PO; -K-TA10TA2 PO; +LEXA1TAB PO; +META28.32 PO; +NITR4TASL SL; +POTA-165 PO; +SENN-111 PO; -SENN18TA PO; +SODI650T PO; +TORS20TA2 PO
[2023-03-29 17:06] LABS: BASO % 0.3 % (0.0-1.0); EOS # 0.2 10^3/uL (0.0-0.5); EOS % 1.8 % (0.0-3.0); HEMATOCRIT 28.5 % (36.0-47.0); HEMOGLOBIN 8.5 g/dl (12.0-15.5); LYMPH # 0.8 10^3/uL (1.5-5.0); LYMPH % 7.1 % (24.0-44.0); MEAN CORPUSCULAR HEMOGLOBIN 27.9 pg (27.0-33.0); MEAN CORPUSCULAR HGB CONC 29.8 g/dl (32.0-36.5); MEAN CORPUSCULAR VOLUME 93.4 fl (80.0-96.0); MONO # 0.7 10^3/uL (0.0-0.8); NEUTROPHILS # 9.7 10^3/uL (1.5-8.5); NEUTROPHILS % 84.2 % (36.0-66.0); PLATELET COUNT, AUTOMATED 213 10^3/uL (150-450); RED BLOOD COUNT 3.05 10^6/uL (4.00-5.40); WHITE BLOOD COUNT 11.5 10^3/uL (4.0-10.0)
[2023-03-29 17:27] LABS: ALBUMIN 3.3 G/DL (3.2-5.2); ALKALINE PHOSPHATASE 72 U/L (46-116); ALT/SGPT 21 U/L (7.0-40); AST/SGOT < 8 U/L (<34); BILIRUBIN,TOTAL 0.5 MG/DL (0.3-1.2); BLOOD UREA NITROGEN 71 MG/DL (9-23); CARBON DIOXIDE LEVEL 26 MMOL/L (20-31); CHLORIDE LEVEL 110 MMOL/L (98-107); CREATININE FOR GFR 2.86 MG/DL (0.55-1.30); GLOMERULAR FILTRATION RATE 17.5 (>45); GLUCOSE, FASTING 84 MG/DL (74-106); POTASSIUM SERUM 4.3 MMOL/L (3.5-5.1); SODIUM LEVEL 146 MMOL/L (136-145); TOTAL PROTEIN 6.3 G/DL (5.7-8.2)
[2023-03-29 18:27] LABS: HEMOGLOBIN A1c 6.3 % (4.0-6.0)
[2023-03-29 18:30] LABS: APPEARANCE, URINE CLOUDY (CLEAR); BACTERIA, URINE AUTO 2+ (NEGATIVE); BILIRUBIN, URINE AUTO NEGATIVE (NEGATIVE); BLOOD, URINE BLOOD 1+ (NEGATIVE); COLOR, URINE YELLOW (YELLOW); GLUCOSE, URINE (UA) AUTO NEGATIVE (NEGATIVE); KETONE, URINE AUTO NEGATIVE (NEGATIVE); LEUKOCYTE ESTERASE, URINE AUTO 3+ (NEGATIVE); MUCUS, URINE SMALL (NEGATIVE); NITRITE, URINE AUTO POSITIVE (NEGATIVE); PROTEIN, URINE AUTO 1+ mg/dL (NEGATIVE); RBC, URINE AUTO 6 /HPF (0-3); SPECIFIC GRAVITY URINE AUTO 1.009 (1.002-1.035); SQUAMOUS EPITHELIAL CELL UR AU 4 /HPF (0-6); UROBILINOGEN, URINE AUTO 0.2 mg/dL (0.0-2.0); WBC, URINE AUTO TNTC /HPF (0-3)
== END ==
LOC: M PLAIMG 15:37
PROVIDERS: ATTEND Physician Assistant
DX: R91.8 Other nonspecific abnormal finding of lung field (principal); J90 Pleural effusion, not elsewhere classified; R06.02 Shortness of breath; R32 Unspecified urinary incontinence; E11.22 Type 2 diabetes mellitus with diabetic chronic kidney disease

== ENCOUNTER → 2023-04-05 | Outpatient (CLI) | payer MEDICARE ==
[~2023-04-05] MED LIST changes: +ALLO100T PO; +ATOR40TA75 PO; +CARB-113 PO; +DARI7.5T11 PO; +HYDR-3911 PO; +LEXA1TAB PO; +META28.32 PO; +NITR4TASL SL; +SENN8.6T28 PO; +SODI650T PO; +TORS20TA2 PO; +VENTAER INH
[2023-04-05 13:28] LABS: BASO # 0.1 10^3/uL (0.0-0.2); BASO % 0.5 % (0.0-1.0); EOS % 0.1 % (0.0-3.0); HEMATOCRIT 34.7 % (36.0-47.0); HEMOGLOBIN 10.4 g/dl (12.0-15.5); LYMPH # 0.6 10^3/uL (1.5-5.0); LYMPH % 4.8 % (24.0-44.0); MEAN CORPUSCULAR VOLUME 93.3 fl (80.0-96.0); MONO # 0.4 10^3/uL (0.0-0.8); MONO % 2.6 % (2.0-8.0); NEUTROPHILS # 11.5 10^3/uL (1.5-8.5); NEUTROPHILS % 85.8 % (36.0-66.0); PLATELET COUNT, AUTOMATED 253 10^3/uL (150-450); RED BLOOD COUNT 3.72 10^6/uL (4.00-5.40); WHITE BLOOD COUNT 13.4 10^3/uL (4.0-10.0)
[2023-04-05 13:53] LABS: ALBUMIN 3.6 G/DL (3.2-5.2); CALCIUM LEVEL 8.2 MG/DL (8.3-10.6); CREATININE FOR GFR 3.14 MG/DL (0.55-1.30); GLOMERULAR FILTRATION RATE 15.7 (>45); MAGNESIUM LEVEL 1.9 MG/DL (1.8-2.4); PHOSPHORUS LEVEL 4.8 MG/DL (2.4-5.1); POTASSIUM SERUM 4.3 MMOL/L (3.5-5.1)
[2023-04-05 13:55] LABS: TOTAL 25(OH) VITAMIN D 23.7 NG/ML (20.0-100.0)
== END ==
LOC: M PLALAB 09:23
PROVIDERS: ATTEND Family Medicine
DX: N18.4 Chronic kidney disease, stage 4 (severe) (principal); D63.1 Anemia in chronic kidney disease; R79.89 Other specified abnormal findings of blood chemistry; I50.32 Chronic diastolic (congestive) heart failure; D50.8 Other iron deficiency anemias

== ENCOUNTER → 2023-07-16 | Outpatient (CLI) | payer MEDICARE, MEDICAID ==
[~2023-07-16] MED LIST changes: -CEFD300C41 PO; +CEFD300C42 PO; +EZET10TA58 PO; +GLIP5TAB17 PO; -GLIP5TAB8 PO; -OXYB5TAB10 PO; +OXYB5TAB11 PO; -ZETI10TA16 PO
[2023-07-16 15:35] LABS: CPK CREATINE PHOSPHOKINASE 49 U/L (34-145)
[2023-07-16 15:37] LABS: VITAMIN B12 LEVEL 430 PG/ML (211-911)
== END ==
LOC: M PLALAB 10:08
PROVIDERS: ATTEND Psychiatry & Neurology Neurology
DX: M79.10 Myalgia, unspecified site (principal)

== ENCOUNTER → 2023-07-16 | Outpatient (CLI) | payer MEDICARE, MEDICAID ==
[2023-07-16 15:54] LABS: ALBUMIN 3.1 G/DL (3.2-5.2); ALKALINE PHOSPHATASE 70 U/L (46-116); ALT/SGPT < 9 U/L (7.0-40); AST/SGOT < 8 U/L (<34); BILIRUBIN,TOTAL 0.4 MG/DL (0.3-1.2); BLOOD UREA NITROGEN 61 MG/DL (9-23); CALCIUM LEVEL 7.7 MG/DL (8.3-10.6); CARBON DIOXIDE LEVEL 27 MMOL/L (20-31); CHLORIDE LEVEL 108 MMOL/L (98-107); CREATININE FOR GFR 2.85 MG/DL (0.55-1.30); GLOMERULAR FILTRATION RATE 17.5 (>45); GLUCOSE, FASTING 254 MG/DL (74-106); POTASSIUM SERUM 4.4 MMOL/L (3.5-5.1); SODIUM LEVEL 142 MMOL/L (136-145); TOTAL PROTEIN 5.8 G/DL (5.7-8.2)
[2023-07-16 16:02] LABS: HEMOGLOBIN A1c 7.4 % (4.0-6.0)
[2023-07-16 16:08] LABS: HEMATOCRIT 27.4 % (36.0-47.0); HEMOGLOBIN 8.4 g/dl (12.0-15.5); MEAN CORPUSCULAR HEMOGLOBIN 28.8 pg (27.0-33.0); MEAN CORPUSCULAR HGB CONC 30.7 g/dl (32.0-36.5); MEAN CORPUSCULAR VOLUME 93.8 fl (80.0-96.0); PLATELET COUNT, AUTOMATED 199 10^3/uL (150-450); RED BLOOD COUNT 2.92 10^6/uL (4.00-5.40); WHITE BLOOD COUNT 8.2 10^3/uL (4.0-10.0)
== END ==
LOC: M PLALAB 10:10
PROVIDERS: ATTEND Family Medicine
DX: M25.561 Pain in right knee (principal); E11.22 Type 2 diabetes mellitus with diabetic chronic kidney disease; D63.1 Anemia in chronic kidney disease; N18.4 Chronic kidney disease, stage 4 (severe); M79.10 Myalgia, unspecified site

== ENCOUNTER → 2023-07-19 | Outpatient (CLI) | payer MEDICARE, MEDICAID ==
[~2023-07-19] MED LIST changes: +DULO1CAP4 PO; +HYDR-3910 PO; +PROC1INJ6 PO; +TRAZ-257 PO
[2023-07-23 08:54] LABS: CHOLESTEROL RISK RATIO 3.8 (<5); LDL CHOLESTEROL 87.8 MG/DL (<100)
== END ==
LOC: M PLAIMG 10:39
PROVIDERS: ATTEND Family Medicine
DX: R05.1 Acute cough (principal); E11.22 Type 2 diabetes mellitus with diabetic chronic kidney disease; I13.0 Hypertensive heart and chronic kidney disease with heart failure and stage 1 through stage 4 chronic kidney disease, or unspecified chronic kidney disease; J81.0 Acute pulmonary edema; J91.8 Pleural effusion in other conditions classified elsewhere

== ENCOUNTER 2023-07-22 17:01 | Observation (INO) | payer MEDICARE, MEDICAID ==
[~2023-07-22] VITALS: Ht 149.9 cm; Wt 94.9 kg
[~2023-07-22 17:01] MED LIST changes: -DULO1CAP4 PO; -HYDR-3910 PO; -PROC1INJ6 PO; -TRAZ-257 PO
[2023-07-22] MEDS ORDERED: methylPREDNISolone 125MG 2ML VIAL IV ONE (17:15)
[2023-07-22 17:35] LABS: BASO % 0.2 % (0.0-1.0); EOS # 0.3 10^3/uL (0.0-0.5); EOS % 5.1 % (0.0-3.0); HEMATOCRIT 24.6 % (36.0-47.0); HEMOGLOBIN 7.6 g/dl (12.0-15.5); LYMPH # 0.5 10^3/uL (1.5-5.0); LYMPH % 8.5 % (24.0-44.0); MEAN CORPUSCULAR HEMOGLOBIN 28.5 pg (27.0-33.0); MEAN CORPUSCULAR HGB CONC 30.9 g/dl (32.0-36.5); MEAN CORPUSCULAR VOLUME 92.1 fl (80.0-96.0); MONO # 0.2 10^3/uL (0.0-0.8); MONO % 4.5 % (2.0-8.0); NEUTROPHILS # 4.3 10^3/uL (1.5-8.5); NEUTROPHILS % 81.5 % (36.0-66.0); PLATELET COUNT, AUTOMATED 197 10^3/uL (150-450); RED BLOOD COUNT 2.67 10^6/uL (4.00-5.40); WHITE BLOOD COUNT 5.3 10^3/uL (4.0-10.0)
[2023-07-22] MEDS ORDERED: CHLO125TA PO (20:37)
[2023-07-22] MEDS ORDERED: TORS20TA2 PO (20:37)
[2023-07-22] MEDS ORDERED: DULO1CAP4 PO (20:37)
[2023-07-22] MEDS ORDERED: PROC1INJ6 PO (20:37)
[2023-07-22] MEDS ORDERED: SODI650T PO (20:37)
[2023-07-22] MEDS ORDERED: TRAZ-257 PO (20:37)
[2023-07-22] MEDS ORDERED: CARV6.25 PO (20:37)
[2023-07-22] MEDS ORDERED: HOME MED LIST COMPLETE! XX SCH (20:40)
[2023-07-22] MEDS ORDERED: DEXTROSE 50% 50ML SYRINGE IV PRN (20:50)
[2023-07-22] MEDS ORDERED: DOCUSATE SODIUM 100MG CAPSULE PO PRN (20:50)
[2023-07-22] MEDS ORDERED: GLUCOSE 4GM CHEW TABLET PO PRN (20:50)
[2023-07-22] MEDS ORDERED: METAMUCIL (PSYLLIUM) PACKET PO PRN (20:50)
[2023-07-22] MEDS ORDERED: NITROGLYCERIN 0.4MG SUBL TABLET SL PRN (20:50)
[2023-07-22] MEDS ORDERED: GLUCAGON INJ 1MG VIAL SC PRN (20:50)
[2023-07-22] MEDS ORDERED: MIRALAX *UNIT DOSE* 17GM PACKET PO PRN (20:50)
[2023-07-22] MEDS ORDERED: ALBUTEROL 90 MCG/ACT 8GM HFA INHALER INH PRN (20:50)
[2023-07-22] MEDS ORDERED: ACETAMINOPHEN TAB 650MG DOSE (2X325MG) PO PRN (20:50)
[2023-07-22 21:21] VITALS: BP_SYST 179; TEMP 98.1; O2SAT 95
[2023-07-22 21:37] VITALS: BP 177/77; TEMP 98.4; O2SAT 95
[2023-07-22] MEDS: SYMBICORT 160/4.5MCG INHALER 6GM INH SCH (21:53)
[2023-07-22] MEDS: **hydrALAZINE** 50 MG TAB PO SCH (21:55)
[2023-07-22] MEDS: CARVedilol 6.25 MG TAB PO SCH (21:55)
[2023-07-22] MEDS: DULoxetine 20MG CAP (CYMBALTA) PO SCH (21:56)
[2023-07-22] MEDS: ATORVASTATIN 20 MG TAB PO SCH (21:56)
[2023-07-22] MEDS: EZETIMIBE 10MG TABLET (ZETIA) PO SCH (21:56)
[2023-07-22] MEDS: SENNA 8.6 MG TAB (SENOKOT) PO SCH (21:56)
[2023-07-22] MEDS: traZODone 100 MG TAB PO SCH (21:56)
[2023-07-22] MEDS: INSULIN LISPRO (NovoLOG) PER UNIT SC SCH (22:33)
[2023-07-22 23:20] VITALS: BP 173/91; TEMP 97.7; O2SAT 97
[2023-07-22 23:22] VITALS: BP 173/91; TEMP 97.7; O2SAT 96
[2023-07-22] MEDS: SODIUM BICARBONATE 325 MG TAB PO SCH (23:40)
[2023-07-23] VITALS (12 sets, daily range): BP systolic 110–176; BP diastolic 60–92; TEMP 97.5–98.8; O2SAT 94–97
[2023-07-23] MEDS ORDERED: **hydrALAZINE HCL** 25 MG TAB PO ONE ×2 (02:00→13:30)
[2023-07-23 02:57] LABS: HEMATOCRIT 27.9 % (36.0-47.0); HEMOGLOBIN 8.7 g/dl (12.0-15.5)
[2023-07-23 05:51] LABS: HEMATOCRIT 27.9 % (36.0-47.0); HEMOGLOBIN 8.7 g/dl (12.0-15.5); MEAN CORPUSCULAR HEMOGLOBIN 28.2 pg (27.0-33.0); MEAN CORPUSCULAR HGB CONC 31.2 g/dl (32.0-36.5); MEAN CORPUSCULAR VOLUME 90.6 fl (80.0-96.0); PLATELET COUNT, AUTOMATED 178 10^3/uL (150-450); RED BLOOD COUNT 3.08 10^6/uL (4.00-5.40); WHITE BLOOD COUNT 6.5 10^3/uL (4.0-10.0)
[2023-07-23] MEDS: SYMBICORT 160/4.5MCG INHALER 6GM INH SCH ×2 (07:29→20:09)
[2023-07-23] MEDS: CHLORTHALIDONE 12.5MG PER 1/2 TABLET PO SCH (08:13)
[2023-07-23] MEDS: SODIUM BICARBONATE 325 MG TAB PO SCH ×2 (08:13→20:15)
[2023-07-23] MEDS: ASPIRIN 81MG ENTERIC TABLET PO SCH (08:13)
[2023-07-23] MEDS: ISOSORBIDE MON. (IMDUR) 60MG XR TAB PO SCH (08:14)
[2023-07-23] MEDS: SENNA 8.6 MG TAB (SENOKOT) PO SCH ×2 (08:14→20:14)
[2023-07-23] MEDS: TORSEMIDE 20 MG TAB PO SCH (08:14)
[2023-07-23] MEDS: CARVedilol 6.25 MG TAB PO SCH ×2 (08:14→20:15)
[2023-07-23] MEDS: **hydrALAZINE** 50 MG TAB PO SCH ×2 (08:15→20:13)
[2023-07-23] MEDS: SINEMET 25-100 MG TAB PO SCH ×3 (08:15→17:38)
[2023-07-23] MEDS: allopurinoL 100 MG TAB PO SCH (08:15)
[2023-07-23] MEDS: INSULIN LISPRO (NovoLOG) PER UNIT SC SCH ×4 (08:16→20:16)
[2023-07-23] MEDS: LEVEMIR (INSULIN DETEMIR) 1 UNITS/0.01ML SC SCH (08:16)
[2023-07-23] MEDS ORDERED: FERROUS GLUCONATE 324 MG TAB PO SCH (09:00)
[2023-07-23] MEDS ORDERED: CALCITRIOL 0.25 MCG CAP (S0169) PO SCH (09:00)
[2023-07-23] MEDS ORDERED: INSULIN LISPRO (NovoLOG) PER UNIT SC STA (12:08)
[2023-07-23] MEDS ORDERED: SOD POLYSTYRENE SULFONATE SUSP 15GM 60ML UD PO ONE (13:00)
[2023-07-23] MEDS ORDERED: LEVEMIR (INSULIN DETEMIR) 1 UNITS/0.01ML SC ONE (13:30)
[2023-07-23 15:46] LABS: CREATININE FOR GFR 2.7 MG/DL (0.7-1.5); GLOMERULAR FILTRATION RATE 18.7 (>45)
[2023-07-23 15:47] LABS: CALCIUM LEVEL 7.9 MG/DL (8.8-10.2); MAGNESIUM LEVEL 1.8 MG/DL (1.7-2.2); POTASSIUM SERUM 5.2 MEQ/L (3.6-5.0)
[2023-07-23] MEDS: EZETIMIBE 10MG TABLET (ZETIA) PO SCH (20:06)
[2023-07-23] MEDS: traZODone 100 MG TAB PO SCH (20:06)
[2023-07-23] MEDS: ATORVASTATIN 20 MG TAB PO SCH (20:14)
[2023-07-23] MEDS: DULoxetine 20MG CAP (CYMBALTA) PO SCH (20:29)
[2023-07-24 05:37] VITALS: BP 160/90; TEMP 98.1; O2SAT 97
[2023-07-24 05:59] LABS: BASO % 0.2 % (0.0-1.0); EOS # 0.1 10^3/uL (0.0-0.5); EOS % 1.4 % (0.0-3.0); HEMATOCRIT 28.6 % (36.0-47.0); HEMOGLOBIN 8.9 g/dl (12.0-15.5); LYMPH # 0.7 10^3/uL (1.5-5.0); LYMPH % 11.6 % (24.0-44.0); MEAN CORPUSCULAR HEMOGLOBIN 27.8 pg (27.0-33.0); MEAN CORPUSCULAR HGB CONC 31.1 g/dl (32.0-36.5); MEAN CORPUSCULAR VOLUME 89.4 fl (80.0-96.0); MONO # 0.4 10^3/uL (0.0-0.8); MONO % 6.3 % (2.0-8.0); NEUTROPHILS # 5.1 10^3/uL (1.5-8.5); NEUTROPHILS % 80.2 % (36.0-66.0); PLATELET COUNT, AUTOMATED 171 10^3/uL (150-450); WHITE BLOOD COUNT 6.4 10^3/uL (4.0-10.0)
[2023-07-24 06:21] LABS: CALCIUM LEVEL 7.2 MG/DL (8.3-10.6); CREATININE FOR GFR 3.09 MG/DL (0.55-1.30); MAGNESIUM LEVEL 1.8 MG/DL (1.8-2.4); POTASSIUM SERUM 4.3 MMOL/L (3.5-5.1)
[2023-07-24 07:24] LABS: ALKALINE PHOSPHATASE 72 U/L (35-104); ALT/SGPT < 9 U/L (1-33); AST/SGOT 8 U/L (5-40); BILIRUBIN,TOTAL < 0.7 MG/DL (0.2-1.3)
[2023-07-24 07:25] LABS: ALBUMIN 3.8 G/DL (3.9-5.0); BILIRUBIN,DIRECT < 0.2 MG/DL (0.1-0.4); THYROID STIMULATING HORMONE 3.53 UIU/ML (0.47-5.01); THYROXINE (T4) 6.6 UG/DL (4.5-12.5); TOTAL PROTEIN 5.7 G/DL (6.3-8.2)
[2023-07-24 08:00] VITALS: BP 170/88; TEMP 97.7; O2SAT 97
[2023-07-24] MEDS: SYMBICORT 160/4.5MCG INHALER 6GM INH SCH (08:00)
[2023-07-24] MEDS: SODIUM BICARBONATE 325 MG TAB PO SCH (08:05)
[2023-07-24] MEDS: ISOSORBIDE MON. (IMDUR) 60MG XR TAB PO SCH (08:08)
[2023-07-24] MEDS: **hydrALAZINE** 50 MG TAB PO SCH (08:08)
[2023-07-24] MEDS: ASPIRIN 81MG ENTERIC TABLET PO SCH (08:08)
[2023-07-24] MEDS: SINEMET 25-100 MG TAB PO SCH ×2 (08:08→11:56)
[2023-07-24] MEDS: TORSEMIDE 20 MG TAB PO SCH (08:08)
[2023-07-24] MEDS: CARVedilol 6.25 MG TAB PO SCH (08:09)
[2023-07-24] MEDS: CHLORTHALIDONE 12.5MG PER 1/2 TABLET PO SCH (08:09)
[2023-07-24] MEDS: INSULIN LISPRO (NovoLOG) PER UNIT SC SCH ×2 (08:09→11:56)
[2023-07-24] MEDS: allopurinoL 100 MG TAB PO SCH (08:09)
[2023-07-24] MEDS: LEVEMIR (INSULIN DETEMIR) 1 UNITS/0.01ML SC SCH (08:10)
[2023-07-24] MEDS: SENNA 8.6 MG TAB (SENOKOT) PO SCH (08:50)
[2023-07-24 09:41] VITALS: BP 162/78
[2023-07-24] MEDS ORDERED: **hydrALAZINE HCL** 25 MG TAB PO ONE (10:00)
[2023-07-24 10:01] VITALS: BP 162/78
[2023-07-24 10:55] VITALS: BP 146/62
[2023-07-24] MEDS ORDERED: HYDR-3910 PO (10:59)
== END 2023-07-24 13:51 | disposition home health service (06) ==
LOC: M ED 17:01 → M ED INP 20:46 → ENRESERV 22:47 → M MSPAV 23:18
PROVIDERS: ADMIT Internal Medicine; ATTEND Internal Medicine
DX: D64.9 Anemia, unspecified (principal); I50.32 Chronic diastolic (congestive) heart failure; J44.9 Chronic obstructive pulmonary disease, unspecified; G47.33 Obstructive sleep apnea (adult) (pediatric); N18.4 Chronic kidney disease, stage 4 (severe); I12.9 Hypertensive chronic kidney disease with stage 1 through stage 4 chronic kidney disease, or unspecified chronic kidney disease; E11.65 Type 2 diabetes mellitus with hyperglycemia; E78.5 Hyperlipidemia, unspecified; R59.0 Localized enlarged lymph nodes; E87.5 Hyperkalemia; G20.C Parkinsonism, unspecified; M10.9 Gout, unspecified; F32.A Depression, unspecified; Z79.4 Long term (current) use of insulin; Z99.81 Dependence on supplemental oxygen; Z79.82 Long term (current) use of aspirin; Z79.899 Other long term (current) drug therapy; Z88.0 Allergy status to penicillin; Z88.1 Allergy status to other antibiotic agents
CPT/HCPCS: 36415; 71045; 80047; 80048; 80076; 83735; 83880; 84436; 84443; 84484; 85014; 85018; 85025; 85027; 85652; 86140; 86850; 86900; 86901; 86920; 87040; 87486; 87581; 87633; 87798; 93005; 93041; 94640; 94760; 97116; 97161; 99285; G0378; J1815; J2930; P9016

== ENCOUNTER → 2023-08-09 | Outpatient (CLI) | payer MEDICARE, MEDICAID ==
[~2023-08-09] MED LIST changes: +DULO1CAP4 PO; +HYDR-3910 PO; +PROC1INJ6 PO; +TRAZ-257 PO
== END ==
LOC: M RAD 13:14
PROVIDERS: ATTEND Family Medicine
DX: R59.0 Localized enlarged lymph nodes (principal); N18.9 Chronic kidney disease, unspecified; D63.1 Anemia in chronic kidney disease

== ENCOUNTER → 2023-08-09 | Outpatient (REF) | payer MEDICARE, MEDICAID ==
[2023-08-09 18:38] LABS: PERCENT SATURATION 2.2 % (13.2-45.0)
[2023-08-09 18:41] LABS: FERRITIN 209.9 NG/ML (7.3-270.7)
== END ==
LOC: M LAB REF 17:30
PROVIDERS: ATTEND Internal Medicine Nephrology
DX: N18.9 Chronic kidney disease, unspecified (principal); D63.1 Anemia in chronic kidney disease

== ENCOUNTER 2023-08-20 10:36 | Outpatient (CLI) | payer MEDICARE, MEDICAID ==
[~2023-08-20] VITALS: Ht 149.9 cm; Wt 90.9 kg
[~2023-08-20 10:36] MED LIST changes: +ALBUTEROL SULFATE 2.5MG/0.5ML INH NEB SOLN INH PRN; +EPINEPHrine INJ 1 MG/ML 1ML AMP IM PRN; +NS 1,000 ML IV SCH; +diphenhydrAMINE 50MG/ML VIAL IV PRN; +methylPREDNISolone 125MG 2ML VIAL IV PRN
[2023-08-20 11:00] VITALS: BP 181/77; O2SAT 96
[2023-08-20] MEDS ORDERED: IRON SUCROSE 300 MG in NS 185 ML IV ONE (11:00)
[2023-08-20 12:45] VITALS: BP 170/78; O2SAT 98
== END 2023-08-20 12:50 ==
LOC: M INFU 10:36
PROVIDERS: ATTEND Internal Medicine Nephrology
DX: E61.1 Iron deficiency (principal); Z88.0 Allergy status to penicillin; Z88.1 Allergy status to other antibiotic agents
CPT/HCPCS: 96365; J1756

== ENCOUNTER → 2023-08-27 | Outpatient (CLI) | payer MEDICARE, MEDICAID ==
[~2023-08-27] MED LIST changes: -ALBUTEROL SULFATE 2.5MG/0.5ML INH NEB SOLN INH PRN; +CEFD1CAP9 PO; -CEFD300C42 PO; -EPINEPHrine INJ 1 MG/ML 1ML AMP IM PRN; -FLUT50SP17; +FLUTISP; -NS 1,000 ML IV SCH; -diphenhydrAMINE 50MG/ML VIAL IV PRN; -methylPREDNISolone 125MG 2ML VIAL IV PRN
== END ==
LOC: M PLALAB 13:41
PROVIDERS: ATTEND Internal Medicine Nephrology
DX: Z79.899 Other long term (current) drug therapy (principal)

== ENCOUNTER → 2023-08-27 | Outpatient (CLI) | payer MEDICARE, MEDICAID | LOC: M PLAIMG 12:43 | PROVIDERS: ATTEND Family Medicine | DX: R59.0 Localized enlarged lymph nodes (principal) ==

== ENCOUNTER → 2023-08-29 | Outpatient (CLI) | payer MEDICARE, MEDICAID ==
[~2023-08-29] MED LIST changes: -CEFD1CAP9 PO; +CEFD300C42 PO; +FLUT50SP17; -FLUTISP
== END ==
LOC: M PLALAB 09:53
PROVIDERS: ATTEND Internal Medicine Nephrology
DX: Z01.83 Encounter for blood typing (principal)

== ENCOUNTER 2023-08-30 08:30 | Outpatient (CLI) | payer MEDICARE, MEDICAID ==
[~2023-08-30] VITALS: Ht 149.9 cm; Wt 94.5 kg
[~2023-08-30 08:30] MED LIST changes: +ACETAMINOPHEN TAB 650MG DOSE (2X325MG) PO SCH; +diphenhydrAMINE 25MG CAP PO SCH
[2023-08-30 08:47] VITALS: BP 138/63; O2SAT 96
[2023-08-30 09:30] VITALS: BP 161/70; TEMP 98; O2SAT 97
[2023-08-30 10:30] VITALS: BP 170/79; TEMP 98.4; O2SAT 95
[2023-08-30 11:15] VITALS: BP 153/67; TEMP 98; O2SAT 97
[2023-08-30 12:15] VITALS: BP 141/63; TEMP 98; O2SAT 97
[2023-08-30 12:40] VITALS: BP 146/71; TEMP 98.4; O2SAT 96
== END 2023-08-30 13:00 | disposition home or self-care (01) ==
LOC: M INFU 08:30
PROVIDERS: ATTEND Internal Medicine Nephrology
DX: D64.9 Anemia, unspecified (principal); Z88.0 Allergy status to penicillin; Z88.1 Allergy status to other antibiotic agents
CPT/HCPCS: 36430; P9016

== ENCOUNTER → 2023-08-31 | Outpatient (CLI) | payer MEDICARE, MEDICAID ==
[~2023-08-31] MED LIST changes: -ACETAMINOPHEN TAB 650MG DOSE (2X325MG) PO SCH; -diphenhydrAMINE 25MG CAP PO SCH
== END ==
LOC: M RAD 12:27
PROVIDERS: ATTEND Internal Medicine Nephrology
DX: N18.4 Chronic kidney disease, stage 4 (severe) (principal); R93.6 Abnormal findings on diagnostic imaging of limbs

== ENCOUNTER 2023-09-05 10:50 | Outpatient (CLI) | payer MEDICARE, MEDICAID ==
[~2023-09-05] VITALS: Ht 152.4 cm; Wt 94.6 kg
[2023-09-05 10:45] VITALS: BP 122/58; O2SAT 97
[~2023-09-05 10:50] MED LIST changes: +ALBUTEROL SULFATE 2.5MG/0.5ML INH NEB SOLN INH PRN; +CEFD1CAP9 PO; -CEFD300C42 PO; +EPINEPHrine INJ 1 MG/ML 1ML AMP IM PRN; -FLUT50SP17; +FLUTISP; +diphenhydrAMINE 50MG/ML VIAL IV PRN; +methylPREDNISolone 125MG 2ML VIAL IV PRN
[2023-09-05] MEDS ORDERED: NS 1,000 ML IV SCH (11:30)
[2023-09-05] MEDS ORDERED: IRON SUCROSE 300 MG in NS 250 ML OVER 90 MIN. IV ONE (11:30)
[2023-09-05 13:20] VITALS: BP 136/62; O2SAT 99
== END 2023-09-05 13:20 | disposition home or self-care (01) ==
LOC: M INFU 10:50
PROVIDERS: ATTEND Internal Medicine Nephrology
DX: E61.1 Iron deficiency (principal); Z88.0 Allergy status to penicillin; Z88.1 Allergy status to other antibiotic agents
CPT/HCPCS: 96365; 96366; J1756

== ENCOUNTER 2023-09-19 10:50 | Outpatient (CLI) | payer MEDICARE, MEDICAID ==
[2014-10-20 13:11] VITALS: O2SAT 3
[2023-09-19 10:50] VITALS: BP 166/73; O2SAT 99
[~2023-09-19 10:50] MED LIST changes: -ALBUTEROL SULFATE 2.5MG/0.5ML INH NEB SOLN INH PRN; -EPINEPHrine INJ 1 MG/ML 1ML AMP IM PRN; -diphenhydrAMINE 50MG/ML VIAL IV PRN; -methylPREDNISolone 125MG 2ML VIAL IV PRN
== END 2023-09-19 13:10 ==
LOC: M INFU 10:50
PROVIDERS: ATTEND Internal Medicine Nephrology
DX: N18.9 Chronic kidney disease, unspecified (principal); D63.1 Anemia in chronic kidney disease

== ENCOUNTER → 2023-10-03 | Outpatient (REF) | payer MEDICARE, MEDICAID ==
[2023-10-03 14:22] LABS: APPEARANCE, URINE CLOUDY (CLEAR); BACTERIA, URINE AUTO 2+ (NEGATIVE); BILIRUBIN, URINE AUTO NEGATIVE (NEGATIVE); BLOOD, URINE BLOOD NEGATIVE (NEGATIVE); COLOR, URINE YELLOW (YELLOW); GLUCOSE, URINE (UA) AUTO NEGATIVE (NEGATIVE); KETONE, URINE AUTO NEGATIVE (NEGATIVE); LEUKOCYTE ESTERASE, URINE AUTO 3+ (NEGATIVE); NITRITE, URINE AUTO NEGATIVE (NEGATIVE); PROTEIN, URINE AUTO 2+ mg/dL (NEGATIVE); RBC, URINE AUTO 3 /HPF (0-3); SPECIFIC GRAVITY URINE AUTO 1.012 (1.002-1.035); SQUAMOUS EPITHELIAL CELL UR AU 1 /HPF (0-6); UROBILINOGEN, URINE AUTO 0.2 mg/dL (0.0-2.0); WBC, URINE AUTO TNTC /HPF (0-3)
== END ==
LOC: M SMT 12:55
PROVIDERS: ATTEND Nurse Practitioner Family
DX: R30.0 Dysuria (principal)

== ENCOUNTER → 2023-10-04 | Outpatient (CLI) | payer MEDICARE, MEDICAID | LOC: M PLAIMG 10:59 | PROVIDERS: ATTEND Nurse Practitioner Family | DX: N39.46 Mixed incontinence (principal) ==

== ENCOUNTER → 2023-10-04 | Outpatient (CLI) | payer MEDICARE, MEDICAID ==
[2023-10-04 13:29] LABS: BASO % 0.5 % (0.0-1.0); EOS # 0.1 10^3/uL (0.0-0.5); EOS % 2.2 % (0.0-3.0); LYMPH # 0.6 10^3/uL (1.5-5.0); LYMPH % 9.1 % (24.0-44.0); MEAN CORPUSCULAR HEMOGLOBIN 27.6 pg (27.0-33.0); MEAN CORPUSCULAR HGB CONC 29.6 g/dl (32.0-36.5); MEAN CORPUSCULAR VOLUME 93.1 fl (80.0-96.0); MONO # 0.3 10^3/uL (0.0-0.8); MONO % 5.5 % (2.0-8.0); NEUTROPHILS % 82.5 % (36.0-66.0); PLATELET COUNT, AUTOMATED 198 10^3/uL (150-450)
[2023-10-04 13:54] LABS: ALBUMIN 3.6 G/DL (3.2-5.2); ALKALINE PHOSPHATASE 70 U/L (46-116); ALT/SGPT 18 U/L (7.0-40); AST/SGOT < 8 U/L (<34); BILIRUBIN,TOTAL 0.4 MG/DL (0.3-1.2); BLOOD UREA NITROGEN 84 MG/DL (9-23); CALCIUM LEVEL 8.3 MG/DL (8.3-10.6); CARBON DIOXIDE LEVEL 29 MMOL/L (20-31); CHLORIDE LEVEL 111 MMOL/L (98-107); CREATININE FOR GFR 3.45 MG/DL (0.55-1.30); GLOMERULAR FILTRATION RATE 14.1 (>45); GLUCOSE, FASTING 98 MG/DL (74-106); POTASSIUM SERUM 4.6 MMOL/L (3.5-5.1); SODIUM LEVEL 146 MMOL/L (136-145); TOTAL PROTEIN 5.8 G/DL (5.7-8.2)
[2023-10-04 14:26] LABS: HEMOGLOBIN A1c 5.6 % (4.0-6.0)
== END ==
LOC: M PLALAB 11:03
PROVIDERS: ATTEND Family Medicine
DX: I13.0 Hypertensive heart and chronic kidney disease with heart failure and stage 1 through stage 4 chronic kidney disease, or unspecified chronic kidney disease (principal); R53.81 Other malaise; R68.83 Chills (without fever); E11.22 Type 2 diabetes mellitus with diabetic chronic kidney disease; J96.21 Acute and chronic respiratory failure with hypoxia; R05.8 Other specified cough

== ENCOUNTER → 2023-10-11 | Outpatient (CLI) | payer MEDICARE, MEDICAID | LOC: M PLAIMG 13:29 | PROVIDERS: ATTEND Family Medicine | DX: J96.11 Chronic respiratory failure with hypoxia (principal); R91.8 Other nonspecific abnormal finding of lung field; J90 Pleural effusion, not elsewhere classified ==

== ENCOUNTER → 2023-10-25 | Outpatient (CLI) | payer MEDICARE, MEDICAID ==
[~2023-10-25] MED LIST changes: +HYDR-161 PO; -HYDR-3911 PO; -HYDR10TAB PO; +HYDR50TA46 PO; +LIDO1PAD; +LIDOCAINE 1% MDV 20ML VIAL As Ordered ONE; +MYRB25TA
[2023-10-25 12:00] VITALS: TEMP 98
[2023-10-25 12:22] LABS: BASO % 0.4 % (0.0-1.0); EOS # 0.2 10^3/uL (0.0-0.5); EOS % 3.4 % (0.0-3.0); HEMATOCRIT 27.6 % (36.0-47.0); HEMOGLOBIN 8.1 g/dl (12.0-15.5); LYMPH # 0.4 10^3/uL (1.5-5.0); LYMPH % 8.5 % (24.0-44.0); MEAN CORPUSCULAR HEMOGLOBIN 27.6 pg (27.0-33.0); MEAN CORPUSCULAR HGB CONC 29.3 g/dl (32.0-36.5); MEAN CORPUSCULAR VOLUME 94.2 fl (80.0-96.0); MONO # 0.3 10^3/uL (0.0-0.8); MONO % 5.9 % (2.0-8.0); NEUTROPHILS % 81.4 % (36.0-66.0); PLATELET COUNT, AUTOMATED 224 10^3/uL (150-450); RED BLOOD COUNT 2.93 10^6/uL (4.00-5.40); WHITE BLOOD COUNT 4.9 10^3/uL (4.0-10.0)
[2023-10-25 12:34] LABS: INR 1.08; PROTHROMBIN TIME 13.7 SECONDS (12.5-14.5)
[2023-10-25 12:35] LABS: PARTIAL THROMBOPLASTIN TIME 24.8 SECONDS (24.8-34.2)
[2023-10-25 13:30] VITALS: BP 165/71; O2SAT 99
== END ==
LOC: M IRPRO 11:47
PROVIDERS: ATTEND Internal Medicine Hematology & Oncology
DX: D64.9 Anemia, unspecified (principal)

== ENCOUNTER → 2023-11-08 | Outpatient (CLI) | payer MEDICARE, MEDICAID ==
[~2023-11-08] MED LIST changes: -LIDOCAINE 1% MDV 20ML VIAL As Ordered ONE
== END ==
LOC: M WHC 14:03
PROVIDERS: ATTEND Family Medicine
DX: Z12.31 Encounter for screening mammogram for malignant neoplasm of breast (principal); Z78.0 Asymptomatic menopausal state; Z13.820 Encounter for screening for osteoporosis

== ENCOUNTER → 2023-11-13 | Outpatient (CLI) | payer MEDICARE, MEDICAID ==
[2023-11-13 14:34] LABS: HEMATOCRIT 27.6 % (36.0-47.0); HEMOGLOBIN 7.9 g/dl (12.0-15.5); MEAN CORPUSCULAR HEMOGLOBIN 27.2 pg (27.0-33.0); MEAN CORPUSCULAR HGB CONC 28.6 g/dl (32.0-36.5); MEAN CORPUSCULAR VOLUME 95.2 fl (80.0-96.0); PLATELET COUNT, AUTOMATED 274 10^3/uL (150-450); WHITE BLOOD COUNT 5.3 10^3/uL (4.0-10.0)
[2023-11-13 14:40] LABS: CALCIUM LEVEL 7.5 MG/DL (8.3-10.6); CREATININE FOR GFR 2.82 MG/DL (0.55-1.30); GLOMERULAR FILTRATION RATE 17.7 (>45); POTASSIUM SERUM 4.8 MMOL/L (3.5-5.1)
== END ==
LOC: M PLALAB 11:19
PROVIDERS: ATTEND Family Medicine
DX: J96.11 Chronic respiratory failure with hypoxia (principal); D63.1 Anemia in chronic kidney disease

== ENCOUNTER → 2023-11-14 | Outpatient (REF) | payer MEDICARE, MEDICAID ==
[~2023-11-14] MED LIST changes: -HYDR-3910 PO; -HYDR25TA PO; +HYDR25TA87 PO; +HYDR25TA88 PO; -MIRA1POW3 PO; +MIRA33506 PO; -OXYB5TAB11 PO; +OXYB5TAB14 PO
[2023-11-14 17:30] LABS: APPEARANCE, URINE CLEAR (CLEAR); BACTERIA, URINE AUTO NEGATIVE (NEGATIVE); BILIRUBIN, URINE AUTO NEGATIVE (NEGATIVE); BLOOD, URINE BLOOD NEGATIVE (NEGATIVE); COLOR, URINE STRAW (YELLOW); GLUCOSE, URINE (UA) AUTO 1+ mg/dL (NEGATIVE); KETONE, URINE AUTO NEGATIVE (NEGATIVE); LEUKOCYTE ESTERASE, URINE AUTO NEGATIVE (NEGATIVE); MUCUS, URINE SMALL (NEGATIVE); NITRITE, URINE AUTO NEGATIVE (NEGATIVE); PROTEIN, URINE AUTO 2+ mg/dL (NEGATIVE); RBC, URINE AUTO 0 /HPF (0-3); SPECIFIC GRAVITY URINE AUTO 1.009 (1.002-1.035); SQUAMOUS EPITHELIAL CELL UR AU 0 /HPF (0-6); UROBILINOGEN, URINE AUTO 0.2 mg/dL (0.0-2.0); WBC, URINE AUTO 0 /HPF (0-3)
== END ==
LOC: M SMT 16:56
PROVIDERS: ATTEND Nurse Practitioner Family
DX: R30.0 Dysuria (principal)

== ENCOUNTER → 2023-11-15 | Outpatient (CLI) | payer MEDICARE, MEDICAID ==
[~2023-11-15] VITALS: Ht 152.4 cm; Wt 92.7 kg
[~2023-11-15] MED LIST changes: +ALBUTEROL SULFATE 2.5MG/0.5ML INH NEB SOLN INH PRN; +EPINEPHrine INJ 1 MG/ML 1ML AMP IM PRN; +NS 1,000 ML IV SCH; +diphenhydrAMINE 50MG/ML VIAL IV PRN; +methylPREDNISolone 125MG 2ML VIAL IV PRN
[2023-11-15 12:55] VITALS: BP 160/70; O2SAT 90
[2023-11-15] MEDS: IRON SUCROSE 300 MG in NS 250 ML OVER 90 MIN. IV ONE (12:56)
[2023-11-15 14:52] VITALS: BP 158/70; O2SAT 94
== END ==
LOC: M INFU 12:34
PROVIDERS: ATTEND Internal Medicine Nephrology
DX: E61.1 Iron deficiency (principal); Z88.0 Allergy status to penicillin; Z88.1 Allergy status to other antibiotic agents
CPT/HCPCS: 96365; 96366; J1756

== ENCOUNTER → 2023-11-19 | Outpatient (CLI) | payer MEDICARE, MEDICAID ==
[~2023-11-19] MED LIST changes: -ALBUTEROL SULFATE 2.5MG/0.5ML INH NEB SOLN INH PRN; -EPINEPHrine INJ 1 MG/ML 1ML AMP IM PRN; +LIDOCAINE 1% MDV 20ML VIAL As Ordered ONE; -NS 1,000 ML IV SCH; -diphenhydrAMINE 50MG/ML VIAL IV PRN; -methylPREDNISolone 125MG 2ML VIAL IV PRN
[2023-11-19 10:05] VITALS: TEMP 98.1
[2023-11-19 11:37] VITALS: BP 162/80; O2SAT 100
== END ==
LOC: M IRPRO 09:56
PROVIDERS: ATTEND Otolaryngology
DX: R22.1 Localized swelling, mass and lump, neck (principal)

== ENCOUNTER 2023-11-29 13:15 | Outpatient (CLI) | payer MEDICARE, MEDICAID ==
[~2023-11-29] VITALS: Ht 152.4 cm; Wt 95.4 kg
[~2023-11-29 13:15] MED LIST changes: +ALBUTEROL SULFATE 2.5MG/0.5ML INH NEB SOLN INH PRN; +EPINEPHrine INJ 1 MG/ML 1ML AMP IM PRN; -LIDOCAINE 1% MDV 20ML VIAL As Ordered ONE; +NS 1,000 ML IV SCH; +diphenhydrAMINE 50MG/ML VIAL IV PRN; +methylPREDNISolone 125MG 2ML VIAL IV PRN
[2023-11-29] MEDS: IRON SUCROSE 300 MG in NS 250 ML OVER 90 MIN. IV ONE (13:25)
[2023-11-29 13:35] VITALS: BP 168/77; O2SAT 97
[2023-11-29 15:15] VITALS: BP 178/84; O2SAT 96
== END 2023-11-29 14:50 ==
LOC: M INFU 13:15
PROVIDERS: ATTEND Internal Medicine Nephrology
DX: E61.1 Iron deficiency (principal); Z88.0 Allergy status to penicillin; Z88.1 Allergy status to other antibiotic agents
CPT/HCPCS: 96365; 96366; J1756

== ENCOUNTER 2023-12-12 06:15 | Day surgery (SDC) | payer MEDICARE, MEDICAID ==
[~2023-12-12] VITALS: Ht 152.4 cm; Wt 91.6 kg
[~2023-12-12 06:15] MED LIST changes: -ALBUTEROL SULFATE 2.5MG/0.5ML INH NEB SOLN INH PRN; +BUDE10.7; +BUDE10.7 IH; -EPINEPHrine INJ 1 MG/ML 1ML AMP IM PRN; +INSU100I24 SQ; -NS 1,000 ML IV SCH; +PHENYLEPHRINE 10% OPHTH SOL 5ML OD PRN; -diphenhydrAMINE 50MG/ML VIAL IV PRN; -methylPREDNISolone 125MG 2ML VIAL IV PRN
[2023-12-12] MEDS: LIDOCAINE 3.5 % 1ML OPHTH TOPICAL GEL OU ONE (06:40)
[2023-12-12] MEDS: ATROPINE SULFATE 1% OPHTH SOLN 2ML BTL OD SCH (06:40)
[2023-12-12] MEDS: TROPICAMIDE 1% OPHTH SOLN 15ML OD SCH (06:40)
[2023-12-12] MEDS: OFLOXACIN 0.3 % (OCUFLOX) OPTH SOL 5ML OD ONE (06:40)
[2023-12-12] MEDS: PHENYLEPHRINE 2.5% OPHTH SOL 2ML OD SCH (06:40)
[2023-12-12] MEDS ORDERED: MIDAZOLAM INJ 2MG/2ML VIAL As Ordered ONE (07:02)
[2023-12-12] MEDS ORDERED: fentaNYL 100 MCG/2 ML INJECTION As Ordered ONE (07:02)
[2023-12-12] MEDS: LIDOCAINE 1% SDV 5ML VIAL As Ordered ONE (08:12)
[2023-12-12] MEDS: CEFUROXIME 1MG/0.1ML INTRACAMERAL INJ As Ordered ONE (08:13)
[2023-12-12] MEDS: BSS IRRIG/VANCO(10MG)/TOBRA(5MG)/EPINEPH(1:1000-0.5CC)500ML BAG-ORONLY As Ordered ONE (08:13)
[2023-12-12 08:24] VITALS: BP 172/22; TEMP 97; O2SAT 99
== END 2023-12-12 09:05 | disposition home or self-care (01) ==
LOC: M SDC 06:15
PROVIDERS: ATTEND Ophthalmology
DX: E11.36 Type 2 diabetes mellitus with diabetic cataract (principal); H25.11 Age-related nuclear cataract, right eye; H57.03 Miosis; I11.0 Hypertensive heart disease with heart failure; I50.9 Heart failure, unspecified; E78.00 Pure hypercholesterolemia, unspecified; D50.9 Iron deficiency anemia, unspecified; E04.1 Nontoxic single thyroid nodule; Z79.899 Other long term (current) drug therapy; Z79.82 Long term (current) use of aspirin; Z88.0 Allergy status to penicillin; Z88.1 Allergy status to other antibiotic agents; G47.30 Sleep apnea, unspecified
CPT/HCPCS: 66982; J0697; J2250; J3010; V2632

== ENCOUNTER 2023-12-13 13:20 | Outpatient (CLI) | payer MEDICARE, MEDICAID ==
[~2023-12-13 13:20] MED LIST changes: +ALBUTEROL SULFATE 2.5MG/0.5ML INH NEB SOLN INH PRN; +EPINEPHrine INJ 1 MG/ML 1ML AMP IM PRN; +NS 1,000 ML IV SCH; -PHENYLEPHRINE 10% OPHTH SOL 5ML OD PRN; +diphenhydrAMINE 50MG/ML VIAL IV PRN; +methylPREDNISolone 125MG 2ML VIAL IV PRN
[2023-12-13 13:30] VITALS: BP 150/68; O2SAT 90
[2023-12-13] MEDS: IRON SUCROSE 300 MG in NS 250 ML OVER 90 MIN. IV ONE (13:38)
[2023-12-13 15:30] VITALS: BP 174/95; O2SAT 97
== END 2023-12-13 15:30 ==
LOC: M INFU 13:20
PROVIDERS: ATTEND Internal Medicine Nephrology
DX: E61.1 Iron deficiency (principal); Z88.0 Allergy status to penicillin; Z88.8 Allergy status to other drugs, medicaments and biological substances
CPT/HCPCS: 96365; 96366; J1756

== ENCOUNTER → 2024-01-01 | Outpatient (CLI) | payer MEDICARE, MEDICAID ==
[~2024-01-01] MED LIST changes: -ALBUTEROL SULFATE 2.5MG/0.5ML INH NEB SOLN INH PRN; -EPINEPHrine INJ 1 MG/ML 1ML AMP IM PRN; -NS 1,000 ML IV SCH; -diphenhydrAMINE 50MG/ML VIAL IV PRN; -methylPREDNISolone 125MG 2ML VIAL IV PRN
[2024-01-01 14:19] LABS: BASO % 0.4 % (0.0-1.0); EOS # 0.1 10^3/uL (0.0-0.5); EOS % 1.3 % (0.0-3.0); HEMATOCRIT 28.9 % (36.0-47.0); HEMOGLOBIN 8.1 g/dl (12.0-15.5); LYMPH # 0.4 10^3/uL (1.5-5.0); LYMPH % 5.6 % (24.0-44.0); MEAN CORPUSCULAR HEMOGLOBIN 26.7 pg (27.0-33.0); MEAN CORPUSCULAR VOLUME 95.4 fl (80.0-96.0); MONO # 0.4 10^3/uL (0.0-0.8); MONO % 5.7 % (2.0-8.0); NEUTROPHILS # 6.5 10^3/uL (1.5-8.5); NEUTROPHILS % 86.6 % (36.0-66.0); PLATELET COUNT, AUTOMATED 223 10^3/uL (150-450); RED BLOOD COUNT 3.03 10^6/uL (4.00-5.40); WHITE BLOOD COUNT 7.5 10^3/uL (4.0-10.0)
[2024-01-01 14:23] LABS: CALCIUM LEVEL 7.7 MG/DL (8.3-10.6); CREATININE FOR GFR 2.96 MG/DL (0.55-1.30); GLOMERULAR FILTRATION RATE 16.8 (>45); POTASSIUM SERUM 4.6 MMOL/L (3.5-5.1)
[2024-01-01 14:34] LABS: HEMOGLOBIN A1c 5.4 % (4.0-6.0)
== END ==
LOC: M PLALAB 10:02
PROVIDERS: ATTEND Family Medicine
DX: I51.7 Cardiomegaly (principal); R05.1 Acute cough; N18.4 Chronic kidney disease, stage 4 (severe); E11.22 Type 2 diabetes mellitus with diabetic chronic kidney disease

== ENCOUNTER → 2024-04-09 | Outpatient (REF) | payer OTHER ==
[~2024-04-09] MED LIST changes: +BUPR-597 PO; -BUPR300T92 PO
== END ==
LOC: M SFHCPLAZ 17:17
PROVIDERS: ATTEND Physician Assistant Medical
DX: R30.0 Dysuria (principal)

== ENCOUNTER → 2024-05-05 | Outpatient (CLI) | payer OTHER ==
[2024-05-05 15:29] LABS: HEMATOCRIT 39.3 % (36.0-47.0); HEMOGLOBIN 11.7 g/dl (12.0-15.5); MEAN CORPUSCULAR HEMOGLOBIN 26.1 pg (27.0-33.0); MEAN CORPUSCULAR HGB CONC 29.8 g/dl (32.0-36.5); MEAN CORPUSCULAR VOLUME 87.7 fl (80.0-96.0); PLATELET COUNT, AUTOMATED 231 10^3/uL (150-450); RED BLOOD COUNT 4.48 10^6/uL (4.00-5.40); WHITE BLOOD COUNT 6.3 10^3/uL (4.0-10.0)
[2024-05-05 15:54] LABS: CALCIUM LEVEL 8.5 MG/DL (8.3-10.6); CREATININE FOR GFR 3.13 MG/DL (0.55-1.30); GLOMERULAR FILTRATION RATE 15.7 (>45); POTASSIUM SERUM 4.6 MMOL/L (3.5-5.1)
[2024-05-05 17:12] LABS: HEMOGLOBIN A1c 5.3 % (4.0-6.0)
== END ==
LOC: M PLALAB 11:12
PROVIDERS: ATTEND Family Medicine
DX: E11.22 Type 2 diabetes mellitus with diabetic chronic kidney disease (principal); D63.1 Anemia in chronic kidney disease; N18.4 Chronic kidney disease, stage 4 (severe)

== ENCOUNTER → 2024-08-01 | Outpatient (REF) | payer OTHER ==
[~2024-08-01] MED LIST changes: -SENN-111 PO; +SENN-165 PO
[2024-08-04 18:28] LABS: PERCENT SATURATION 23.8 % (13.2-45.0)
[2024-08-04 18:31] LABS: FERRITIN 110.6 NG/ML (7.3-270.7)
== END ==
LOC: M LAB REF 17:14
PROVIDERS: ATTEND Internal Medicine Nephrology
DX: N18.9 Chronic kidney disease, unspecified (principal); D63.1 Anemia in chronic kidney disease

== ENCOUNTER → 2024-09-26 | Outpatient (REF) | payer OTHER ==
[2024-09-26 18:26] LABS: APPEARANCE, URINE TURBID (CLEAR); BACTERIA, URINE AUTO 1+ (NEGATIVE); BILIRUBIN, URINE AUTO NEGATIVE (NEGATIVE); BLOOD, URINE BLOOD NEGATIVE (NEGATIVE); COLOR, URINE AMBER (YELLOW); GLUCOSE, URINE (UA) AUTO NEGATIVE (NEGATIVE); KETONE, URINE AUTO NEGATIVE (NEGATIVE); LEUKOCYTE ESTERASE, URINE AUTO 3+ (NEGATIVE); MUCUS, URINE SMALL (NEGATIVE); NITRITE, URINE AUTO NEGATIVE (NEGATIVE); PROTEIN, URINE AUTO 3+ mg/dL (NEGATIVE); RBC, URINE AUTO 8 /HPF (0-3); SPECIFIC GRAVITY URINE AUTO 1.012 (1.002-1.035); SQUAMOUS EPITHELIAL CELL UR AU 6 /HPF (0-6); UROBILINOGEN, URINE AUTO 0.2 mg/dL (0.0-2.0); WBC, URINE AUTO TNTC /HPF (0-3)
== END ==
LOC: M SMT 17:14
PROVIDERS: ATTEND Nurse Practitioner Family
DX: R30.0 Dysuria (principal)

== ENCOUNTER → 2024-11-11 | Outpatient (REF) | payer OTHER ==
[2024-11-11 17:51] LABS: BASO % 0.4 % (0.0-1.0); EOS # 0.2 10^3/uL (0.0-0.5); EOS % 2.4 % (0.0-3.0); HEMATOCRIT 31.7 % (36.0-47.0); HEMOGLOBIN 9.8 g/dl (12.0-15.5); LYMPH # 0.8 10^3/uL (1.5-5.0); LYMPH % 10.3 % (24.0-44.0); MEAN CORPUSCULAR HEMOGLOBIN 28.1 pg (27.0-33.0); MEAN CORPUSCULAR HGB CONC 30.9 g/dl (32.0-36.5); MEAN CORPUSCULAR VOLUME 90.8 fl (80.0-96.0); MONO # 0.4 10^3/uL (0.0-0.8); MONO % 5.4 % (2.0-8.0); NEUTROPHILS % 81.1 % (36.0-66.0); PLATELET COUNT, AUTOMATED 230 10^3/uL (150-450); RED BLOOD COUNT 3.49 10^6/uL (4.00-5.40); WHITE BLOOD COUNT 7.4 10^3/uL (4.0-10.0)
[2024-11-11 18:32] LABS: ALBUMIN 3.6 G/DL (3.2-5.2); BILIRUBIN,TOTAL 0.4 MG/DL (0.3-1.2); CALCIUM LEVEL 8.5 MG/DL (8.3-10.6); CHOLESTEROL RISK RATIO 3.3 (<5); CREATININE FOR GFR 3.71 MG/DL (0.55-1.30); GLOMERULAR FILTRATION RATE 12.9 (>45); HDL CHOLESTEROL 41.1 MG/DL (>40); LDL CHOLESTEROL 77.3 MG/DL (<100); NON-HDL-C 94.9 MG/DL; POTASSIUM SERUM 4.5 MMOL/L (3.5-5.1); TOTAL PROTEIN 6.6 G/DL (5.7-8.2)
[2024-11-11 18:47] LABS: HEMOGLOBIN A1c 5.3 % (4.0-6.0)
== END ==
LOC: M SFHCPLAZ 15:50
PROVIDERS: ATTEND Family Medicine
DX: E11.22 Type 2 diabetes mellitus with diabetic chronic kidney disease (principal); I13.0 Hypertensive heart and chronic kidney disease with heart failure and stage 1 through stage 4 chronic kidney disease, or unspecified chronic kidney disease; R53.81 Other malaise; R68.83 Chills (without fever); J06.9 Acute upper respiratory infection, unspecified

== ENCOUNTER → 2024-11-24 | Outpatient (CLI) | payer MEDICARE ==
[2024-11-24 19:09] LABS: ALBUMIN 3.8 G/DL (3.2-5.2); BILIRUBIN,TOTAL 0.3 MG/DL (0.3-1.2); CALCIUM LEVEL 8.5 MG/DL (8.3-10.6); CREATININE FOR GFR 4.75 MG/DL (0.55-1.30); GLOMERULAR FILTRATION RATE 9.7 (>45); HEMATOCRIT 31.9 % (36.0-47.0); HEMOGLOBIN 10.1 g/dl (12.0-15.5); MEAN CORPUSCULAR HEMOGLOBIN 28.7 pg (27.0-33.0); MEAN CORPUSCULAR HGB CONC 31.7 g/dl (32.0-36.5); MEAN CORPUSCULAR VOLUME 90.6 fl (80.0-96.0); PLATELET COUNT, AUTOMATED 243 10^3/uL (150-450); POTASSIUM SERUM 4.2 MMOL/L (3.5-5.1); RED BLOOD COUNT 3.52 10^6/uL (4.00-5.40); TOTAL PROTEIN 6.9 G/DL (5.7-8.2); WHITE BLOOD COUNT 7.4 10^3/uL (4.0-10.0)
== END ==
LOC: M PLALAB 15:15
PROVIDERS: ATTEND Family Medicine
DX: N18.5 Chronic kidney disease, stage 5 (principal)

== ENCOUNTER → 2024-12-18 | Outpatient (CLI) | payer MEDICARE, OTHER | LOC: M WHC 15:09 | PROVIDERS: ATTEND Nurse Practitioner Family | DX: N20.0 Calculus of kidney (principal); N28.1 Cyst of kidney, acquired; N26.1 Atrophy of kidney (terminal) ==

== ENCOUNTER → 2024-12-26 | Outpatient (CLI) | payer MEDICARE, OTHER | LOC: M RAD 13:12 | PROVIDERS: ATTEND Otolaryngology | DX: E04.1 Nontoxic single thyroid nodule (principal) ==

== ENCOUNTER → 2025-01-06 | Outpatient (CLI) | payer MEDICARE | LOC: M RAD 12:22 | PROVIDERS: ATTEND Otolaryngology | DX: D11.0 Benign neoplasm of parotid gland (principal) ==

== ENCOUNTER → 2025-02-05 | Outpatient (REF) | payer MEDICARE ==
[~2025-02-05] MED LIST changes: +AMLO-751 PO; -AMLO10TA PO; -BUPR-597 PO; +BUPR-766 PO; -FLOM0.4C39 PO; +TAMS-18 PO
[2025-02-05 18:09] LABS: APPEARANCE, URINE CLEAR (CLEAR); BACTERIA, URINE AUTO NEGATIVE (NEGATIVE); BILIRUBIN, URINE AUTO NEGATIVE (NEGATIVE); BLOOD, URINE BLOOD NEGATIVE (NEGATIVE); COLOR, URINE STRAW (YELLOW); GLUCOSE, URINE (UA) AUTO 1+ mg/dL (NEGATIVE); KETONE, URINE AUTO NEGATIVE (NEGATIVE); LEUKOCYTE ESTERASE, URINE AUTO NEGATIVE (NEGATIVE); NITRITE, URINE AUTO NEGATIVE (NEGATIVE); PROTEIN, URINE AUTO 2+ mg/dL (NEGATIVE); RBC, URINE AUTO 0 /HPF (0-3); SPECIFIC GRAVITY URINE AUTO 1.012 (1.002-1.035); SQUAMOUS EPITHELIAL CELL UR AU 1 /HPF (0-6); UROBILINOGEN, URINE AUTO 0.2 mg/dL (0.0-2.0); WBC, URINE AUTO 1 /HPF (0-3)
== END ==
LOC: M LAB REF 16:51
PROVIDERS: ATTEND Nurse Practitioner Family
DX: N39.0 Urinary tract infection, site not specified (principal)

== ENCOUNTER → 2025-07-13 | Outpatient (CLI) | payer MEDICARE ==
[~2025-07-13] MED LIST changes: -EZET10TA21 PO; +EZET10TA57 PO
[2025-07-13 13:51] LABS: PLATELET COUNT, AUTOMATED 232 10^3/uL (150-450)
[2025-07-13 14:19] LABS: ALT/SGPT 17 U/L (7.0-40); AST/SGOT 9 U/L (<34); CALCIUM LEVEL 8.6 MG/DL (8.3-10.6); CARBON DIOXIDE LEVEL 23 MMOL/L (20-31); CHLORIDE LEVEL 112 MMOL/L (98-107); CHOLESTEROL LEVEL 162 MG/DL (<200); CHOLESTEROL RISK RATIO 5.09 (<5); CREATININE FOR GFR 3.66 MG/DL (0.55-1.30); GLOMERULAR FILTRATION RATE 12.8 (>39); LDL CHOLESTEROL 102.8 MG/DL (<100); NON-HDL-C 130.2 MG/DL; POTASSIUM SERUM 4.6 MMOL/L (3.5-5.1); SODIUM LEVEL 148 MMOL/L (136-145); TRIGLYCERIDES LEVEL 137 MG/DL (<150)
[2025-07-13 14:37] LABS: ESTIMATED AVERAGE GLUCOSE 114.0 MG/DL (60-110)
[2025-07-15 16:37] LABS: RUBEOLA IgG ANTIBODY > 300.00 AU/mL (>16.49)
== END ==
LOC: M PLALAB 11:26
PROVIDERS: ATTEND Family Medicine
DX: E11.22 Type 2 diabetes mellitus with diabetic chronic kidney disease (principal); N18.4 Chronic kidney disease, stage 4 (severe); D63.1 Anemia in chronic kidney disease; Z01.84 Encounter for antibody response examination; Z11.1 Encounter for screening for respiratory tuberculosis